=== PATIENT | male | born 1960 | race Caucasian/White ===

== ENCOUNTER 2024-10-09 07:57 | Outpatient (RCR) | payer OTHER, SELFPAY ==
[2024-10-09 15:57] LABS: Mean Corpuscular Hemoglobin 29.5 pg (25.9-34.0); Mean Corpuscular Volume 92.4 fL (80.0-94.0); Mean Platelet Volume 12.6 fL (9.5-13.5); Platelet Count 186 10^3/uL (150-450); Red Cell Distribution Width 21.8 % (11.0-15.0); White Blood Count 4.3 10^3/uL (4.0-11.0)
[2024-10-09 16:00] LABS: Hematocrit 19.4 % (42.0-54.0); Hemoglobin 6.2 g/dL (14.0-18.0)
--- NOTE | 2024-10-09 16:03 | PC.NURSE ---
Critical Hgb and Hct called from lab. DR. Hopper notified and instructed this RN to call pt. and direct him to go to ED. Attempt made to call patient, only voicemail. Message left to go to ED for further evaluation.
[2024-10-09 16:38] LABS: Band Neutrophils Absolute 0.5 10^3/uL (0.0-0.3); Basophils Abs Manual 0.04 10^3/uL (0.00-0.10); Blast Absolute Manual 0.12; Lymphocytes Absolute Manual 1.03 10^3/uL (1.20-3.80); Monocytes Absolute Manual 0.08 10^3/uL (0.30-0.80); Segmented Neut Absolute Manual 2.53 10^3/uL (1.4-6.5)
[2024-10-09 16:43] LABS: Ovalocytes 1+; Poikilocytosis 1+
[2024-10-09 17:10] LABS: Percent Iron Saturation 67.4 %
[2024-10-09 17:27] LABS: Alanine Aminotransferase 13 U/L (16-63); Albumin Globulin Ratio 0.9; Albumin Level 3.6 g/dL (3.4-5.0); Alkaline Phosphatase 88 U/L (46-116); Anion Gap 13.6; Aspartate Amino Transferase 18 U/L (15-37); BUN Creatinine Ratio 15.2; Bilirubin Total 0.7 mg/dL (0.2-1.0); Carbon Dioxide 26.2 mmol/L (21.0-32.0); Chloride 101 mmol/L (98-107); Estimated GFR (African America >60 (>=60 mL/min/1.73m^2); Estimated GFR (Non-African Ame >60 (>=60 mL/min/1.73m^2); Globulin 4.1 g/dL; Glucose 91 mg/dL (74-106); Lactate Dehydrogenase 882 U/L (85-227); Potassium 4.8 mmol/L (3.5-5.1); Sodium 136 mmol/L (136-145); Total Protein 7.7 g/dL (6.4-8.2)
[2024-10-11 15:08] LABS: Erythropoietin (EPO), Serum 1801.6 mIU/mL (2.6-18.5)
== END 2024-10-10 08:00 | disposition home or self-care (01) ==
LOC: HEMC 07:57
PROVIDERS: PCP Family Medicine; Visit Provider Internal Medicine Hematology & Oncology
DX: D64.9 Anemia, unspecified (principal); D75.81 Myelofibrosis
CPT/HCPCS: 36415; 80053; 82668; 82728; 83540; 83550; 83615; 85007; 85027; G0463

== ENCOUNTER 2024-10-09 17:29 | Observation (INO) | payer OTHER, SELFPAY ==
[2024-10-09] VITALS (14 sets, daily range): BP systolic 114–128; BP diastolic 60–67; PULSE 91–107; TEMP 36.2–37; O2SAT 92–97; BMI 23.3; BMI 21.9
--- NOTE | 2024-10-09 17:55 | ED.GENADUL1 ---
HPI HPI - General Adult General Chief complaint: Recheck/Abnormal Lab/Rx Stated complaint: Dr RICE sent him over for Blood Time Seen by Provider: 10/09/24 17:36 Source: patient and family Mode of arrival: walk-in Limitations: no limitations History of Present Illness HPI narrative: Patient is a 64-year-old male who presents to the emergency department for an abnormal hemoglobin that was drawn just prior to arrival. Patient was seeing oncology/hematology today for recent diagnosis of multiple myeloma. He was hospitalized last month and received 6 units of blood since the end of August. Patient has no focal medical complaints on arrival to the ER today, he denies dizziness, chest pain or shortness of breath. He has had no difficulty eating or drinking. He denies any dark tarry stools. He had a hemoglobin of 6.2 prior to arrival and was instructed to come to the emergency department to initiate a blood transfusion. Related Data Home Medications ?Medication ?Instructions ?Recorded ?Confirmed melatonin 10 mg capsule 10 mg PO DAILY 10/09/24 10/09/24 rosuvastatin 10 mg tablet 10 mg PO .once daily 10/09/24 10/09/24 Allergies Allergy/AdvReac Type Severity Reaction Status Date / Time No Known Drug Allergies Allergy Verified 10/09/24 17:41 Opioid HPI Opioid Management Most Recent Opioid Data: No Data to Display Review of Systems ROS Constitutional Denies: fever or chills Ears, nose, mouth, and throat Denies: throat pain or nasal congestion Cardiovascular Denies: chest pain Respiratory Denies: shortness of breath Gastrointestinal Denies: nausea or vomiting Integumentary/Breast Denies: rash Neurological Denies: headache, numbness in extremities, weakness in extremities or dizziness Hematologic/Lymphatic Denies: easy bruising or easy bleeding PFSH PFSH Social History Little interest or pleasure in doing things: not at all Feeling down, depressed, or hopeless: not at all Exam Narrative Exam Narrative: Gen.: Awake, alert, in no distress Head: Normocephalic, atraumatic ENT: Moist mucous membranes Respiratory: No respiratory distress, lungs clear bilaterally Cardio: Regular rate and rhythm Gastrointestinal: Abdomen is soft, nondistended and nontender to palpation Extremities: Moves extremities equally Psych: Normal mood and affect Neuro: No focal neuro deficit Skin: Warm, dry, intact Constitutional Vital Signs, click to edit/add: Last Vital Signs Temp 98.5 F 10/09/24 17:37 Pulse 107 H 10/09/24 17:37 Resp 16 10/09/24 17:37 BP 128/65 10/09/24 17:37 Pulse Ox 95 10/09/24 17:37 O2 Del Method Room Air 10/09/24 17:37 Course Vital Signs Vital signs: Vital Signs Temperature 98.5 F 10/09/24 17:37 Pulse Rate 107 H 10/09/24 17:37 Respiratory Rate 16 10/09/24 17:37 Blood Pressure 128/65 10/09/24 17:37 Pulse Oximetry 95 10/09/24 17:37 Oxygen Delivery Method Room Air 10/09/24 17:37 Temperature 98.5 F 10/09/24 17:37 Pulse Rate 107 H 10/09/24 17:37 Respiratory Rate 16 10/09/24 17:37 Blood Pressure 128/65 10/09/24 17:37 Pulse Oximetry 95 10/09/24 17:37 Oxygen Delivery Method Room Air 10/09/24 17:37 Medical Decision Making MDM Narrative Medical decision making narrative: This patient had a hemoglobin of 6.2 prior to arrival, type and screen was ordered with coags as well as 2 units of blood. He has a stable blood pressure. He will be admitted for observation and monitoring for blood transfusion. He is established with heme-onc for his new recent diagnosis of multiple myeloma. Stable at time of admission to the hospitalist. SUPERVISED APC VISIT, PHYSICIAN ATTESTATION: Based on the medical record the care appears appropriate. ? Medical Records Medical records reviewed: Yes I reviewed the patient's medical records Lab Data Lab results reviewed: Yes I reviewed the patient's lab results ECG Data Attestation: I personally reviewed and interpreted this ECG as follows: (Normal sinus rhythm at a rate of 93, incomplete right bundle branch block with no acute ST elevation or ectopy. EKG reviewed by attending physician) Discharge Plan Discharge Chief Complaint: Recheck/Abnormal Lab/Rx Clinical Impression: Anemia requiring transfusions, Multiple myeloma Patient Disposition: Admitted as Observation Time of Disposition Decision: 18:03 Prescriptions / Home Meds: No Action rosuvastatin 10 mg tablet 10 mg PO .once daily melatonin 10 mg capsule 10 mg PO DAILY Print Language: Bulgarian Referrals: LOUIS WARD [Primary Care Provider] - 1 week
--- NOTE | 2024-10-09 17:57 | ECG_ITS ---
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 Measurements Intervals [place] Rate: 93 P: 60 CO: 160 QRS: 34 QRSD: 102 T: 71 QT: 380 QTc: 431 Interpretive Statements 1100 Sinus rhythm 2440 Incomplete right bundle branch block 9130 borderline ECG No previous ECG available for comparison Electronically Signed On 10-10-2024 7:43:09 EDT by CHRISTOPH FERRO M.D.
--- NOTE | 2024-10-09 18:10 | PC.NURSE ---
blood consent signed by pt
[2024-10-09 18:12] LABS: INR 1.26; Prothrombin Time 13.1 sec (9.0-11.6)
[2024-10-09] MEDS: DIPHENHYDRAMINE HCL 25 MG CAPSULE PO (20:20)
[2024-10-09] MEDS: ACETAMINOPHEN 325 MG TABLET 650 MG PO (20:20)
[2024-10-09] MEDS: FUROSEMIDE 20 MG/2 ML VIAL IVP (21:46)
--- NOTE | 2024-10-09 23:11 | PC.NURSE ---
urine is now dilute
[2024-10-10] VITALS (9 sets, daily range): BP systolic 118–133; BP diastolic 53–69; PULSE 80–98; TEMP 36.5–36.9; O2SAT 93–98
[2024-10-10 05:46] LABS: Basophils Percent Auto 0.9 % (0.2-2.0); Hemoglobin 7.5 g/dL (14.0-18.0); Immature Granulocytes Abs Auto 0.21 10^3/uL (0.00-0.03); Immature Granulocytes Pct Auto 4.9 % (0.0-0.5); Lymphocytes Absolute Auto 0.6 10^3/uL (1.2-3.8); Lymphocytes Percent Auto 12.8 % (20.5-60.0); Mean Corpuscular HGB Conc 33.3 g/dL (29.9-35.2); Mean Corpuscular Hemoglobin 29.6 pg (25.9-34.0); Mean Corpuscular Volume 88.9 fL (80.0-94.0); Mean Platelet Volume 10.8 fL (9.5-13.5); Monocytes Absolute Auto 0.4 10^3/uL (0.3-0.8); Monocytes Percent Auto 9.8 % (1.7-12.0); Neutrophils Absolute Auto 3.1 10^3/uL (1.4-6.5); Neutrophils Percent Auto 71.6 % (43.0-75.0); Platelet Count 163 10^3/uL (150-450); Red Blood Count 2.53 10^6/uL (4.70-6.10); Red Cell Distribution Width 20.4 % (11.0-15.0); White Blood Count 4.3 10^3/uL (4.0-11.0)
[2024-10-10 06:07] LABS: Alanine Aminotransferase 10 U/L (16-63); Albumin Globulin Ratio 0.9; Albumin Level 3.3 g/dL (3.4-5.0); Alkaline Phosphatase 81 U/L (46-116); Anion Gap 10.9; Aspartate Amino Transferase 17 U/L (15-37); BUN Creatinine Ratio 16.7; Bilirubin Total 0.9 mg/dL (0.2-1.0); Calcium 8.7 mg/dL (8.5-10.1); Carbon Dioxide 28.6 mmol/L (21.0-32.0); Chloride 102 mmol/L (98-107); Estimated GFR (African America >60 (>=60 mL/min/1.73m^2); Estimated GFR (Non-African Ame >60 (>=60 mL/min/1.73m^2); Globulin 3.7 g/dL; Glucose 102 mg/dL (74-106); Magnesium 1.7 mg/dL (1.8-2.4); Potassium 4.5 mmol/L (3.5-5.1); Sodium 137 mmol/L (136-145)
[2024-10-10 06:23] LABS: Hematocrit 22.5 % (42.0-54.0)
--- NOTE | 2024-10-10 09:00 | CM.NOTE ---
Rounds made with Dr. Scott, pt will discharge today and f/u with Dr. Hopper and PCP.
--- NOTE | 2024-10-10 11:30 | PM.HP ---
HPI H&P: HPI History of Present Illness Chief complaint: ANEMIA REQUIRES TRANSFUSION Narrative: 64 y/o male sent to ER from oncology with anemia. Getting work up from oncology and recently diagnosed with myelofibrosis. Scheduled for outpatient visit and labs showed anemia with hgb 6.2. Recently with severe anemia and has had 6 transfusions since August 2024. Overall felt well and no symptoms. Not SOB and no fatigue. To ER and started 2 units PRBC. Admitted and did well overnight. Repeat hgb 7.5 this am. Continues to be without symptoms. No chest pain or SOB. Opioid HPI Opioid Management Most Recent Pain and Opioid Data: Last Pain Assessment 10/10/24 10:00 Last ORT Total Score 0 10/09/24 18:42 10/09/24 Last ORT Risk Category Low Risk 10/09/24 18:42 10/09/24 Review of Systems ROS Constitutional Denies: fever, chills or fatigue Cardiovascular Denies: chest pain, palpitations or edema Respiratory Denies: shortness of breath, cough or wheezing Gastrointestinal Denies: abdominal pain, nausea, vomiting or diarrhea Genitourinary Denies: painful urination [facility] Medical History (Updated 10/10/24 @ 10:31 by Rex Scott MD) Dyslipidemia ?E78.5 - Hyperlipidemia, unspecified (ICD-10) Anemia requiring transfusions ?D64.9 - Anemia, unspecified (ICD-10) Social History Highest level of school completed/degree received: high school graduate Little interest or pleasure in doing things: not at all Feeling down, depressed, or hopeless: not at all Meds Home Medications and Allergies Home Medications ?Medication ?Instructions ?Recorded ?Confirmed ?Type melatonin 10 mg capsule 10 mg PO DAILY 10/09/24 10/09/24 History rosuvastatin 10 mg tablet 10 mg PO .qhs 10/09/24 10/10/24 History Allergies Allergy/AdvReac Type Severity Reaction Status Date / Time No Known Drug Allergies Allergy Verified 10/09/24 17:41 Exam Constitutional Vital Signs, click to edit/add: Last Vital Signs Temp 97.7 F 10/10/24 08:00 Pulse 90 10/10/24 10:00 Resp 14 10/10/24 08:00 BP 133/53 10/10/24 08:00 Pulse Ox 98 10/10/24 09:08 O2 Del Method Room Air 10/10/24 09:08 Documenting provider has reviewed patient's vital signs: yes Common normals: no apparent distress, oriented x3 and alert HENMT Common normals: normocephalic Eye Common normals: PERRL and EOMs intact bilaterally Respiratory Common normals: normal respiratory effort and clear to auscultation bilaterally Cardio Common normals: regular rate, regular rhythm, no gallops, no murmurs and no rub GI Common normals: Normal to inspection, nondistended, normoactive bowel sounds present and non-tender Extremity Common normals: no pedal edema Results Labs Labs: Short CBC 10/10/24 Range/Units 05:33 WBC 4.3 (4.0-11.0) 10^3/uL Hgb 7.5 L (14.0-18.0) g/dL Hct 22.5 L* (42.0-54.0) % Plt Count 163 (150-450) 10^3/uL BMP 10/10/24 05:33 Sodium 137 Potassium 4.5 Chloride 102 Carbon Dioxide 28.6 BUN 14.0 Creatinine 0.84 Glucose 102 Calcium 8.7 Liver Function 10/10/24 Range/Units 05:33 Total Bilirubin 0.9 (0.2-1.0) mg/dL AST 17 (15-37) U/L ALT 10 L (16-63) U/L Alkaline Phosphatase 81 (46-116) U/L Albumin 3.3 L (3.4-5.0) g/dL Assessment and Plan Assessment and Plan (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 Discussed with oncology and stable for discharge. Patient will start outpatient treatment and have hgb monitored. Resume home medication as directed. Follow with oncology in 1 week.
--- NOTE | 2024-10-12 13:35 | CM.DCFOLLOWU ---
10/12/24 1st attempt, no answer
--- NOTE | 2024-10-15 13:03 | CM.DCFOLLOWU ---
Person spoke with: Nic How are you feeling? Much better How is your pain? No pain Did you understand your discharge instructions? Yes Do you have any questions about your discharge instructions? No Were you given any prescriptions at discharge? No Were you able to get your prescriptions filled? N/A Do you understand how to take your medications as ordered? Yes- I see Dr. Hopper tomorrow for f/u appt and to have blood draw. Do you have any questions about your follow up appointment and do you plan to keep your follow up appointment? I see Dr. Hopper tomorrow Is there anything else that you would like to discuss? No Questions/Comments/Concerns/Other:
== END 2024-10-10 11:15 | disposition home or self-care (01) ==
LOC: ER 18:10 → MS 18:40
PROVIDERS: Physician Assistant; Registered Nurse; Admitting Provider Family Medicine; Emergency Provider Emergency Medicine; PCP Family Medicine; Visit Provider Family Medicine
DX: C90.00 Multiple myeloma not having achieved remission (principal); D63.0 Anemia in neoplastic disease; D75.81 Myelofibrosis
CPT/HCPCS: 36415; 36430; 80053; 82668; 82728; 83540; 83550; 83615; 83735; 85007; 85025; 85027; 85610; 86850; 86900; 86901; 86923; 93005; 94761; 96374; 99285; G0378; G0463; J1940; P9016

== ENCOUNTER 2024-11-06 08:02 | Outpatient (OUT) | payer OTHER, SELFPAY ==
--- OUTSIDE RECORDS SUMMARY | 2024-11-02 08:10 | XMS_ITS | CCD ---
Author Organization [facility] CliniSyar Care Team Providers Care Cost Control Analyst Name Role Phone GORDILLO, CHRISTOPHER Unavailable Unavailable GORDILLO, CHRISTOPHER Unavailable Unavailable HAY, MELBA Unavailable Unavailable FURLONG, DEWEY Unavailable Unavailable MO Unavailable Unavailable GORDILLO, CHRISTOPHER Unavailable Unavailable GORDILLO, CHRISTOPHER Unavailable Unavailable FURLONG, DEWEY Unavailable Unavailable FURLONG, DEWEY Unavailable Unavailable GORDILLO, CHRISTOPHER Unavailable Unavailable FURLONG, DEWEY Unavailable Unavailable GORDILLO, CHRISTOPHER Unavailable Unavailable GORDILLO, CHRISTOPHER Unavailable Unavailable GORDILLO, CHRISTOPHER Unavailable Unavailable FURLONG, DEWEY Unavailable Unavailable FURLONG, DEWEY Unavailable Unavailable GORDILLO, CHRISTOPHER Unavailable Unavailable GORDILLO, CHRISTOPHER Unavailable Unavailable FURLONG, DEWEY Unavailable Unavailable GORDILLO, CHRISTOPHER Unavailable Unavailable GORDILLO, CHRISTOPHER Unavailable Unavailable FURLONG, DEWEY Unavailable Unavailable FURLONG, DEWEY Unavailable Unavailable FURLONG, DEWEY Unavailable Unavailable GORDILLO, CHRISTOPHER Unavailable Unavailable GORDILLO, CHRISTOPHER Unavailable Unavailable HAY, MELBA Unavailable Unavailable HAY, MELBA Unavailable Unavailable FURLONG, DEWEY G Unavailable Unavailable HAY, MELBA Unavailable Unavailable Furlong DODewey G Primary Care Provider Furlong DODewey G Primary Care Provider [phone] FURLONG, DEWEY G Referring Unavailable FURLONG, DEWEY G Primary Care Unavailable FURLONG, DEWEY G Referring Unavailable FURLONG, DEWEY G Primary Care Unavailable TAMELA WILLIAMSON Admitting Unavailable GEREMIAS SOTO Referring Unavailable FURLONG, DEWEY G Primary Care Unavailable KEYUR STUART Consulting Unavailable VINEET ERNST Attending Unavailable GUILLERMO PORTER Consulting Unavailable ONLY), [facility] (INPATIENT Consult ing Unavailable FURLONG, DEWEY G Referring Unavailable FURLONG, DEWEY G Primary Care Unavailable FURLONG, DEWEY G Attending Unavailable FURLONG, DEWEY G Referring Unavailable FURLONG, DEWEY G Primary Care Unavailable FURLONG, DEWEY G Attending Unavailable FURLONG, DEWEY G Referring Unavailable FURLONG, DEWEY G Primary Care Unavailable FURLONG, DEWEY G Attending Unavailable FURLONG, DEWEY G Referring Unavailable FURLONG, DEWEY G Primary Care Unavailable Furlong DO, Dewey Primary Care Provider Furlong DODewey Attending Provider GEREMIAS SOTO Attending Unavailable FURLONG, DEWEY G Primary Care Unavailable KEYUR STUART Attending Unavailable FURLONG, DEWEY G Referring Unavailable FURLONG, DEWEY G Primary Care Unavailable Martita Hopper MD Attending Provider Martita Hopper Admitting Unavailable Martita Hopper Attending Unavailable Furlong, Dewey Admitting Unavailable Furlong, Dewey Attending Unavailable Furlong, Dewey Primary Care Unavailable Furlong DODewey Primary Care Provider [phone] Medications Current Medications Medication Drug Class(es) Dates Sig (Normalized) Sig (Original) cephalexin 500 mg oral capsule (1 source) Cephalosporin Antibacterial Start: 09-12-2024 End: 09-17-2024 CEPHalexin (KEFLEX) 500 mg capsule Take 1 capsule (500 mg total) by mouth in the morning and 1 capsule (500 mg total) at noon and 1 capsule (500 mg total) in the evening and 1 capsule (500 mg total) before bedtime. Do all this for 5 days. 20 capsule 09/12/2024 09/17/2024 Active cholecalciferol 0.01 mg oral capsule (12 sources) Vitamin D cholecalciferol, vitamin D3, (VITAMIN D3) 10 mcg (400 unit) capsule Active melatonin 10 mg oral tablet (5 sources) Start: 09-14-2024 take 1 tablet by mouth once daily melatonin 10 mg tablet Take 1 tablet by mouth nightly. 09/14/2024 Active OJJAARA 100 mg tablet (1 source) Start: 10-16-2024 OJJAARA 100 mg tablet 10/16/2024 Active rosuvastatin calcium 10 mg oral tablet (11 sources) HMG-CoA Reductase Inhibitor Start: 06-29-2024 take 1 tablet by mouth once daily rosuvastatin (CRESTOR) 10 mg tablet Take 1 tablet (10 mg total) by mouth nightly. 30 tablet 11 06/29/2024 Active Completed/Discontinued Medications Medication Drug Class(es) Dates Sig (Normalized) Sig (Original) nystatin 100 unt/mg topical powder (5 sources) Polyene Antifungal Start: 09-14-2024 End: 11-01-2024 nystatin (MYCOSTATIN) powder Apply 1 Application topically in the morning and 1 Application before bedtime. 30 g 1 09/14/2024 11/01/2024 Discontinued (Therapy completed) Problems Active Problems Problem Classification Problem Date Documented Date Episodic/Chronic Chronic obstructive pulmonary disease and bronchiectasis (1 source) Chronic obstructive pulmonary disease, unspecified; 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 obstructive pulmonary disease, unspecified] Onset: 5 Chronic Deficiency and other anemia (13 sources) Anemia; Translations: [Anemia, unspecified] Onset: 5 09-08-2024 Episodic Deficiency and other anemia (3 sources) Anemia, unspecified; Translations: [Anemia, unspecified] Onset: 5 Episodic Diabetes mellitus without complication (3 sources) Hyperglycemia; Translations: [Hyperglycemia, unspecified] Onset: 5 09-21-2024 Episodic External Injury - Fall (1 source) Fall on same level due to ice and snow, initial encounter; Translations: [FALL ON SAME LEVEL DUE TO ICE AND SNOW, INITIAL ENCOUNTER] Onset: 7 External Injury - Place of occurrence (1 source) Unspecified place in unspecified non-institutional (private) residence as the place of occurrence of the external cause; Translations: [UNSP PLACE IN UNSP NON-INSTITUT (PRIVATE) RESIDENCE PLACE] Onset: 7 Fracture of lower limb (17 sources) Displaced spiral fracture of shaft of right tibia, initial encounter for open fracture type I or II; Translations: [Unspecified fracture of shaft of right fibula, subsequent encounter for closed fracture with routine healing] Onset: 7 Episodic Lymphadenitis (11 sources) Inguinal lymphadenopathy; Translations: [Localized enlarged lymph nodes] Onset: 5 09-08-2024 Episodic Neoplasms of unspecified nature or uncertain behavior (6 sources) Myelosclerosis with myeloid metaplasia; 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 myeloproliferative disease] Onset: 5 10-04-2024 Episodic Non-Hodgkin`s lymphoma (2 sources) Non-Hodgkin lymphoma, unspecified, lymph nodes of inguinal region and lower limb; Translations: [Non-Hodgkin lymphoma, unspecified, intra-abdominal lymph nodes] Onset: 5 Chronic Open wounds of extremities (1 source) Unspecified open wound, right lower leg, initial encounter; Translations: [Unspecified open wound, right lower leg, initial encounter] Onset: 5 Episodic Other gastrointestinal disorders (1 source) Splenomegaly, not elsewhere classified; Translations: [Splenomegaly, not elsewhere classified] Onset: 5 Episodic Other gastrointestinal disorders (4 sources) Splenomegaly; Translations: [Splenomegaly, not elsewhere classified] Onset: 5 10-04-2024 Episodic Other inflammatory condition of skin (1 source) Psoriasis vulgaris; Translations: [PSORIASIS VULGARIS] Onset: 7 Chronic Other screening for suspected conditions (not mental disorders or infectious disease) (6 sources) Patient encounter status; Translations: [Encounter for screening for cardiovascular disorders] Onset: 4 06-25-2024 Episodic Pleurisy; pneumothorax; pulmonary collapse (2 sources) Pleural effusion; Translations: [Pleural effusion, not elsewhere classified] Onset: 5 11-01-2024 Episodic Residual codes; unclassified (1 source) Colon cancer screening declined; Translations: [Procedure and treatment not carried out because of patient's decision for unspecified reasons] 06-25-2024 Episodic Residual codes; unclassified (1 source) Prostate cancer screening declined; Translations: [Procedure and treatment not carried out because of patient's decision for unspecified reasons] 06-25-2024 Episodic Residual codes; unclassified (11 sources) Amnesia; Translations: [Other amnesia] Onset: 5 09-06-2024 Episodic Residual codes; unclassified (1 source) Flushing; Translations: [Flushing] 09-06-2024 Episodic Residual codes; unclassified (2 sources) Other amnesia; Translations: [Other amnesia] Onset: 5 Episodic Residual codes; unclassified (2 sources) Flushing; Translations: [Flushing] Onset: 5 Episodic Screening and history of mental health and substance abuse codes (3 sources) Ex-cigarette smoker; Translations: [Personal history of nicotine dependence] Onset: 4 09-21-2024 Episodic Unclassified (2 sources) Unknown / UNK(Unknown) Onset: 7 Unclassified (1 source) Referral Onset: 5 Unclassified (1 source) Low Blood Count Onset: 5 Unclassified (1 source) Abnormal Lab Value Onset: 5 Past or Other Problems Problem Classification Problem Date Documented Da te Episodic/Chronic Chronic ulcer of skin (6 sources) Ulcer of lower extremity; Translations: [Non-pressure chronic ulcer of unspecified part of right lower leg with fat layer exposed] Onset: 09-10-2024 Resolved: 11-01-2024 09-10-2024 Chronic Complication of device; implant or graft (4 sources) Fracture of tibia or fibula following insertion of orthopedic implant, joint prosthesis, or bone plate, right leg; Translations: [FX TIB/FIB FOL INSRT ORTHO IMPLNT/PROSTH/BONE PLT, RIGHT LEG] Onset: 08-03-2017 Episodic Mood disorders (12 sources) Mood disorders Onset: 06-25-2024 Resolved: 11-01-2024 06-25-2024 Other connective tissue disease (1 source) Arthrodesis status; Translations: [ARTHRODESIS STATUS] Onset: 08-03-2017 Episodic Skin and subcutaneous tissue infections (7 sources) Cellulitis of right lower limb; Translations: [Cellulitis of right lower limb] Onset: 09-08-2024 Resolved: 11-01-2024 09-08-2024 Episodic Substance-related disorders (15 sources) Nicotine dependence, cigarettes, uncomplicated; Translations: [Cigarette smoker ] Onset: 07-14-2017 Resolved: 09-21-2024 06-25-2024 Chronic Unclassified (1 source) Patient encounter status 09-21-2024 Results Test Name Value Interpretation Reference Range [facility] 10-09-2024 L ----- Specimen: [id number] Received: 10/11/24 Status: QUOC Swain Num: [id number] Spec Type: Impression Subm Dr: Martita Hopper MD Tissues: PATHPER Procedures: PATHREVIEW Age/ Patient Sex Location Account Attending Physician Penny Ordaz/Mili LABELL [id number] Martita Hopper MD SPEC NUM: [id number] RECD: 10/11/24 STATUS: QUOC SWAIN NUM: [id number] BEV: 10/09/[address]: Martita Hopper MD ENTERED: 10/11/[address]: William Ly SPEC TYPE: Impression DEPT: ALLI Correa ENTERED BY: [id number] RECV BY: [id number] ORDERED: PATHREVIEW ORDERED: PATHREVIEW Pathologist Review Abnormal CBC for peripheral blood smear review: -Borderline leukopenia with mild lymphocytopenia, and borderline monocytopenia -Mild bandemia -Severe anemia of normocytic type, including moderate anisocytosis and poikilocytosis with mild ovalocytosis, occasional teardrop cell, occasional macrocytes, mild hypochromia, occasional microcytes, at least rare polychromatophils -Occasional precursor granulocytes, including occasional bands, and at least 1 suspected immature blast -Occasional large platelets and at least 1 giant platelet Comment: -The cause of severe anemia of normocytic type in the adult male patient is not clear, but may be multifactorial in etiology, including anemia of iron deficiency type because of the noticed ovalocytosis in the smear. However, iron deficiency anemia is usually associated with microcytosis not seen in this case. Possibility of the other superimposed disease condition such as chronic liver disease or alcoholism also need clinical correlation. Possibility of the underlying superimposed hematologic blood disease also cannot be excluded because of the left shifted granulocytes with rare suspected blast. Continuous clinical correlation and other laboratory assessments and correlations, including testing of the serum iron profile, are also suggested CPT Specimen: [id number] Received: 10/11/24 Status: QUOC Swain Num: [id number] Spec Type: Impression Subm Dr: Martita Hopper MD Tissues: PATHPER Procedures: PATHREVIEW Patient: Penny Ordaz [id number] (Continued) Specimen: [id number] Received: 10/11/24 (Continued) Pathologist Review (Continued) Signed (signature on file) Delfina Calderón MD 10/14/242029 Specimen: [id number] Received: 10/11/24 Status: QUOC Damondebora Num: [id number] Spec Type: Impression Subm Dr: Martita Hopper MD Tissues: PATHPER Procedures: PATHREVIEW Patient: Penny Ordaz [id number] (Continued) Specimen: [id number] Received: 10/11/24 (Continued) Pathologist Review (Continued) [id number] Specimen: [id number] Received: 10/11/24 Status: QUOC Swain Num: [id number] Spec Type: Impression Subm Dr: Martita Hopper MD Tissues: PATHPER Procedures: PATHREVIEW Patient: Penny Ordaz [id number] (Continued) Signed (signature on file) Delfina Calderón MD 10/14/242029 [facility] BASIC METABOLIC PANLon 09-21 Anion gap [Moles/Vol] 6 mmol/L Normal 5-15 [facility] Comment on above: Performed By: #### C BCA, PINR, BMP, 09123-7, 2284-8, 13738-9, LIVR #### [facility] ([id number]) [address], [address] [place] [address] Calcium [Mass/Vol] 9.0 mg/dL Normal 8.5-10.5 [facility] Comment on above: Performed By: #### C BCA, PINR, BMP, 51694-5, 2284-8, 08596-6, LIVR #### [facility] ([id number]) [address], [address] [place] [address] Chloride [Moles/Vol] 102 mmol/L Normal 98-[address] [facility] Comment on above: Performed By: #### C BCA, PINR, BMP, 30232-7, 2284-8, 52182-3, LIVR #### [facility] ([id number]) [address], [address] [place] [address] CO2 [Moles/Vol] 29 mmol/L Normal 22-32 [facility] Comment on above: Performed By: #### C BCA, PINR, BMP, 31355-4, 2284-8, 22301-8, LIVR #### [facility] ([id number]) [address], [address] [place] [address] Creatinine [Mass/Vol] 0.67 mg/dL Normal 0.60-1.30 [facility] Comment on above: Result Comment: METH OD TRACEABLE TO IDMS STANDARD Performed By: #### C BCA, PINR, BMP, 31288-1, 2284-8, 38649-3, LIVR #### [facility] ([id number]) [address], [address] [place] [address] eGFR (CKD-EPI) NON-RACE DEPENDENT >90 Normal >59 [facility] Comment on above: Result Comment: Reported eGFR is based on the CKD-EPI 2020 equation that does not use a race coefficient. Performed By: #### C BCA, PINR, BMP, 12160-7, 2284-8, 96831-5, LIVR #### [facility] ([id number]) [address], [address] [place] [address] Glucose [Mass/Vol] 103 mg/dL High 65-99 [facility] Comment on above: Performed By: #### C BCA, PINR, BMP, 78286-7, 2284-8, 08285-0, LIVR #### [facility] ([id number]) [address], [address] [place] [address] Potassium [Moles/Vol] 4.4 mmol/L Normal 3.5-5.0 [facility] Comment on above: Performed By: #### C BCA, PINR, BMP, 81724-6, 2284-8, 70783-5, LIVR #### [facility] ([id number]) [address], [address] [place] [address] Sodium [Moles/Vol] 137 mmol/L Normal 134-146 [facility] Comment on above: Performed By: #### C BCA, PINR, BMP, 41062-4, 2284-8, 85684-4, LIVR #### [facility] ([id number]) [address], [address] [place] [address] Urea nitrogen [Mass/Vol] 11 mg/dL Normal 5-27 [facility] Comment on above: Performed By: #### C BCA, PINR, BMP, 30270-8, 2284-8, 41142-1, LIVR #### [facility] ([id number]) [address], [address] [place] [address] COMPLETE BLOOD COUNTon 09-21 Erythrocyte distribution width (RBC) [Ratio] 21.1 % High 11.5-15.0 [facility] Comment on above: Performed By: #### C BCA, PINR, BMP, 51458-6, 2284-8, 23578-2, LIVR #### [facility] ([id number]) [address], [address] [place] [address] Hematocrit (Bld) [Volume fraction] 23.4 % Low 39-49 [facility] Comment on above: Performed By: #### C BCA, PINR, BMP, 12360-8, 2284-8, 19305-2, LIVR #### [facility] ([id number]) [address], [address] [place] [address] Hemoglobin (Bld) [Mass/Vol] 7.7 g/dL Low 13.0-17.0 [facility] Comment on above: Performed By: #### C BCA, PINR, BMP, 04921-0, 2284-8, 14783-6, LIVR #### [facility] ([id number]) [address], [address] [place] [address] MCH (RBC) [Entitic mass] 30.3 pg Normal 27-34 [facility] Comment on above: Performed By: #### C BCA, PINR, BMP, 28297-9, 2284-8, 27168-8, LIVR #### [facility] ([id number]) [address], [address] [place] [address] MCHC (RBC) [Mass/Vol] 32.8 g/dL Normal 32-36 [facility] Comment on above: Performed By: #### C BCA, PINR, BMP, 60940-9, 2284-8, 08901-8, LIVR #### [facility] ([id number]) [address], [address] [place] [address] MCV (RBC) [Entitic vol] 93 fL Normal 80-100 [facility] Comment on above: Performed By: #### C BCA, PINR, BMP, 91161-4, 2284-8, 11323-1, LIVR #### [facility] ([id number]) [address] [address] Platelet mean volume (Bld) [Entitic vol] 8.3 fL Normal 7-12 [facility] Comment on above: Performed By: #### C BCA, PINR, BMP, 08412-5, 2284-8, 71174-4, LIVR #### [facility] ([id number]) [address] [address] Platelets (Bld) [#/Vol] 423 10*3/uL Normal 150-450 [facility] Comment on above: Performed By: #### C BCA, PINR, BMP, 44816-3, 2284-8, 11282-5, LIVR #### [facility] ([id number]) [address] [address] RBC COUNT 2.53 X10E12/L Low 4.10-5.70 [facility] Comment on above: Performed By: #### C BCA, PINR, BMP, 19907-5, 2284-8, 94688-5, LIVR #### [facility] ([id number]) [address] [address] WBC (Bld) [#/Vol] 5.3 10*3/uL Normal 4.0-11.0 [facility] Comment on above: Performed By: #### C BCA, PINR, BMP, 31302-3, 2284-8, 35782-2, LIVR #### [facility] ([id number]) [address] [address] HGB A1C (GLYCO-HGB)on 2024 Glucose [Mass/Vol] 105 mg/dL Normal [facility] Comment on above: Performed By: #### C BCA, PINR, BMP, 49590-9, 2284-8, 66248-8, LIVR #### [facility] ([id number]) [address], [address] [place] [address] HbA1c (Bld) [Mass fraction] 5.3 % Normal 4.4-5.6 [facility] Comment on above: Result Comment: NOTE ADA Guidelines Result HgbA1c Normal : less than 5.7 % Prediabetes : 5.7 % to 6.4 % Diabetes : > 6.4 % Use with caution in patients with abnormal hemoglobin variants as the half-life of red blood cells and in vivo glycation rates are affected. Performed By: #### C BCA, PINR, BMP, 71501-7, 2284-8, 67930-2, LIVR #### [facility] ([id number]) [address], [address] [place] [address] BASIC METABOLIC PANLon 09-12 Anion gap [Moles/Vol] 5 mmol/L Normal 5-15 [facility] Comment on above: Performed By: #### C BCA, PINR, BMP, 19191-7, 2284-8, 85132-0, LIVR #### [facility] ([id number]) [address], [address] [place] [address] Calcium [Mass/Vol] 8.7 mg/dL Normal 8.5-10.5 [facility] Comment on above: Performed By: #### C BCA, PINR, BMP, 00959-9, 2284-8, 19506-2, LIVR #### [facility] ([id number]) [address], [address] [place] [address] Chloride [Moles/Vol] 101 mmol/L Normal 98-[address] [facility] Comment on above: Performed By: #### C BCA, PINR, BMP, 99131-0, 2284-8, 46971-9, LIVR #### [facility] ([id number]) [address], [facility] [address] [place] [address] CO2 [Moles/Vol] 28 mmol/L Normal 22-32 [facility] Comment on above: Performed By: #### C BCA, PINR, BMP, 34803-6, 2284-8, 31297-4, LIVR #### [facility] ([id number]) [address], [address] [place] [address] Creatinine [Mass/Vol] 0.54 mg/dL Low 0.60-1.30 [facility] Comment on above: Result Comment: METH OD TRACEABLE TO IDMS STANDARD Performed By: #### C BCA, PINR, BMP, 75265-4, 2284-8, 06057-4, LIVR #### [facility] ([id number]) [address] [address] eGFR (CKD-EPI) NON-RACE DEPENDENT >90 Normal >59 [facility] Comment on above: Result Comment: Reported eGFR is based on the CKD-EPI 2020 equation that does not use a race coefficient. Performed By: #### C BCA, PINR, BMP, 09281-8, 2284-8, 46576-8, LIVR #### [facility] ([id number]) [address] [address] Glucose [Mass/Vol] 90 mg/dL Normal 65-99 [facility] Comment on above: Performed By: #### C BCA, PINR, BMP, 69696-7, 2284-8, 37449-4, LIVR #### [facility] ([id number]) [address] [address] Potassium [Moles/Vol] 4.5 mmol/L Normal 3.5-5.0 [facility] Comment on above: Performed By: #### C BCA, PINR, BMP, 97410-4, 2284-8, 75367-8, LIVR #### [facility] ([id number]) [address], [address] [place] [address] Sodium [Moles/Vol] 134 mmol/L Normal 134-146 [facility] Comment on above: Performed By: #### C BCA, PINR, BMP, 28261-1, 2284-8, 70550-2, LIVR #### [facility] ([id number]) [address], [address] [place] [address] Urea nitrogen [Mass/Vol] 10 mg/dL Normal 5-27 [facility] Comment on above: Performed By: #### C BCA, PINR, BMP, 09231-8, 2284-8, 32400-7, LIVR #### [facility] ([id number]) [address], [address] [place] [address] CBC AND AUTO DIFFon 09-12-19 25 Band form neutrophils/100 WBC (Bld) 26.0 % Normal [facility] Comment on above: Performed By: #### C BCA, PINR, BMP, 63230-9, 2284-8, 12115-6, LIVR #### [facility] ([id number]) [address], [facility] [address] [place] [address] Erythrocyte distribution width (RBC) [Ratio] 21.4 % High 11.5-15.0 [facility] Comment on above: Performed By: #### C BCA, PINR, BMP, 05176-3, 2284-8, 02527-4, LIVR #### [facility] ([id number]) [address], [address] [place] [address] FRAGMENT 1+ Abnormal NONE [facility] Comment on above: Performed By: #### C BCA, PINR, BMP, 98833-9, 2284-8, 88486-6, LIVR #### [facility] ([id number]) [address], [address] [place] [address] Hematocrit (Bld) [Volume fraction] 24.1 % Low 39-49 [facility] Comment on above: Performed By: #### C BCA, PINR, BMP, 27722-3, 2284-8, 91982-1, LIVR #### [facility] ([id number]) [address] [address] [place] [address] Hemoglobin (Bld) [Mass/Vol] 7.9 g/dL Low 13.0-17.0 [facility] Comment on above: Performed By: #### C BCA, PINR, BMP, 14090-3, 2284-8, 76523-0, LIVR #### [facility] ([id number]) [address] [address] Lymphocytes (Bld) [#/Vol] 0.3 10*3/uL Low 1.0-3.5 [facility] Comment on above: Performed By: #### C BCA, PINR, BMP, 14003-9, 2284-8, 98818-4, LIVR #### [facility] ([id number]) [address] [address] Lymphocytes/100 WBC (Bld) 5.0 % Normal [facility] Comment on above: Performed By: #### C BCA, PINR, BMP, 03737-0, 2284-8, 59613-5, LIVR #### [facility] ([id number]) [address] [address] [place] [address] MCH (RBC) [Entitic mass] 30.4 pg Normal 27-34 [facility] Comment on above: Performed By: #### C BCA, PINR, BMP, 45849-4, 2284-8, 83060-2, LIVR #### [facility] ([id number]) [address] [address] [place] [address] MCHC (RBC) [Mass/Vol] 32.7 g/dL Normal 32-36 [facility] Comment on above: Performed By: #### C BCA, PINR, BMP, 12369-4, 2284-8, 93642-4, LIVR #### [facility] ([id number]) [address], [address] [place] [address] MCV (RBC) [Entitic vol] 93 fL Normal 80-100 [facility] Comment on above: Performed By: #### C BCA, PINR, BMP, 97721-2, 2284-8, 93214-4, LIVR #### [facility] ([id number]) [address], [address] [place] [address] Monocytes (Bld) [#/Vol] 0.2 10*3/uL Normal 0-0.9 [facility] [facility] Comment [facility]: Performed By: #### C BCA, PINR, BMP, 72491-7, 4-8, 94254-0, LIVR #### [facility] ([id number]) [address], [address] [place] [address] Monocytes/100 WBC (Bld) 3.0 % Normal [facility] Comment on above: Performed By: #### C BCA, PINR, BMP, 20337-2, 2284-8, 11644-3, LIVR #### [facility] ([id number]) [address], [address] [place] [address] Neutrophils (Bld) [#/Vol] 6.3 10*3/uL Normal 1.5-6.6 [facility] Comment on above: Performed By: #### C BCA, PINR, BMP, 90609-4, 2284-8, 48545-5, LIVR #### [facility] ([id number]) [address], [address] [place] [address] OVALOCYTE 1+ Abnormal NONE [facility] Comment on above: Performed By: #### C BCA, PINR, BMP, 06731-6, 2284-8, 45361-5, LIVR #### [facility] ([id number]) [address], [address] [place] [address] Platelet mean volume (Bld) [Entitic vol] 8.3 fL Normal 7-12 [facility] Comment on above: Performed By: #### C BCA, PINR, BMP, 32315-2, 2284-8, 82564-8, LIVR #### [facility] ([id number]) [address], [address] [place] [address] Platelets (Bld) [#/Vol] 235 10*3/uL Normal 150-450 [facility] Comment on above: Performed By: #### C BCA, PINR, BMP, 48274-2, 2284-8, 88377-8, LIVR #### [facility] ([id number]) [address], [address] [place] [address] POLYCHROMASIA 1+ Abnormal NONE [facility] Comment on above: Performed By: #### C BCA, PINR, BMP, 84991-0, 2284-8, 58403-4, LIVR #### [facility] ([id number]) [address], [address] [place] [address] RBC COUNT 2.59 X10E12/L Low 4.10-5.70 [facility] Comment on above: Performed By: #### C BCA, PINR, BMP, 21392-2, 2284-8, 94046-8, LIVR #### [facility] ([id number]) [address], [address] [place] [address] SEG NEUTROPHIL 66.0 % Normal [facility] Comment on above: Performed By: #### C BCA, PINR, BMP, 54019-3, 2284-8, 21219-5, LIVR #### [facility] ([id number]) [address], [address] [place] [address] WBC (Bld) [#/Vol] 6.8 10*3/uL Normal 4.0-11.0 [facility] Comment on above: Performed By: #### C BCA, PINR, BMP, 83489-7, 2284-8, 37061-1, LIVR #### [facility] ([id number]) [address], [address] [place] [address] Glucose Glucometer (BldC) [M ass/Vol]on 09-12-2024 Glucose [Mass/Vol] 126 mg/dL High 65-99 [facility] Glucose [Mass/Vol] 100 mg/dL High 65-99 [facility] BASIC METABOLIC PANLon 09-11 Anion gap [Moles/Vol] 5 mmol/L Normal 5-15 [facility] Comment on above: Performed By: #### C BCA, PINR, BMP, 71767-2, 2284-8, 86020-0, LIVR #### [facility] ([id number]) [address], [address] [place] [address] Calcium [Mass/Vol] 8.2 mg/dL Low 8.5-10.5 [facility] Comment on above: Performed By: #### C BCA, PINR, BMP, 09150-4, 2284-8, 84220-8, LIVR #### [facility] ([id number]) [address], [address] [place] [address] Chloride [Moles/Vol] 102 mmol/L Normal 98-[address] [facility] Comment on above: Performed By: #### C BCA, PINR, BMP, 59632-1, 2284-8, 42438-9, LIVR #### [facility] ([id number]) [address], [address] [place] [address] CO2 [Moles/Vol] 28 mmol/L Normal 22-32 [facility] Comment on above: Performed By: #### C BCA, PINR, BMP, 69756-2, 2284-8, 97595-2, LIVR #### [facility] ([id number]) [address], [address] [place] [address] Creatinine [Mass/Vol] 0.57 mg/dL Low 0.60-1.30 [facility] Comment on above: Result Comment: METH OD TRACEABLE TO IDMS STANDARD Performed By: #### C BCA, PINR, BMP, 13197-4, 2284-8, 64999-2, LIVR #### [facility] ([id number]) [address], [address] [address] eGFR (CKD-EPI) NON-RACE DEPENDENT >90 Normal >59 [facility] Comment on above: Result Comment: Reported eGFR is based on the CKD-EPI 2020 equation that does not use a race coefficient. Performed By: #### C BCA, PINR, BMP, 40353-9, 2284-8, 20358-5, LIVR #### [facility] ([id number]) [address], [address] [place] [address] Glucose [Mass/Vol] 99 mg/dL Normal 65-99 [facility] Comment on above: Performed By: #### C BCA, PINR, BMP, 85291-9, 2284-8, 02467-0, LIVR #### [facility] ([id number]) [address], [address] [place] [address] Potassium [Moles/Vol] 4.4 mmol/L Normal 3.5-5.0 [facility] Comment on above: Performed By: #### C BCA, PINR, BMP, 33534-6, 2284-8, 31645-2, LIVR #### [facility] ([id number]) [address], [address] [place] [address] Sodium [Moles/Vol] 135 mmol/L Normal 134-146 [facility] Comment on above: Performed By: #### C BCA, PINR, BMP, 09745-1, 2284-8, 59806-2, LIVR #### [facility] ([id number]) [address], [address] [place] [address] Urea nitrogen [Mass/Vol] 11 mg/dL Normal 5-27 [facility] Comment on above: Performed By: #### C BCA, PINR, BMP, 04551-3, 2284-8, 82847-2, LIVR #### [facility] ([id number]) [address], [address] [address] CBC AND AUTO DIFFon 09-11-19 25 Band form neutrophils/100 WBC (Bld) 21.0 % Normal [facility] Comment on above: Performed By: #### C BCA, PINR, BMP, 32755-2, 2284-8, 05101-0, LIVR #### [facility] ([id number]) [address], [facility] [address] [place] [address] Erythrocyte distribution width (RBC) [Ratio] 19.8 % High 11.5-15.0 [facility] Comment on above: Performed By: #### C BCA, PINR, BMP, 76556-0, 2284-8, 18067-4, LIVR #### [facility] ([id number]) [address], [address] [place] [address] FRAGMENT 1+ Abnormal NONE [facility] Comment on above: Performed By: #### C BCA, PINR, BMP, 45049-5, 2284-8, 32426-6, LIVR #### [facility] ([id number]) [address], [address] [address] Hematocrit (Bld) [Volume fraction] 21.3 % Low 39-49 [facility] Comment on above: Performed By: #### C BCA, PINR, BMP, 35737-9, 2284-8, 19615-0, LIVR #### [facility] ([id number]) [address], [address] [place] [address] Hemoglobin (Bld) [Mass/Vol] 6.9 g/dL Critically low 13.0-17.0 [facility] Comment on above: Performed By: #### C BCA, PINR, BMP, 96196-2, 2284-8, 21736-9, LIVR #### [facility] ([id number]) [address], [address] [place] [address] IMMATURE MONONUCLEAR 1.0 % Normal [facility] Comment on above: Performed By: #### C BCA, PINR, BMP, 08032-6, 4-8, 82771-7, LIVR #### [facility] ([id number]) [address], [address] [place] [address] Lymphocytes (Bld) [#/Vol] 0.6 10*3/uL Low 1.0-3.5 [facility] Comment on above: Performed By: #### C BCA, PINR, BMP, 68512-0, 2283-8, 14479-2, LIVR #### [facility] ([id number]) [address], [address] [place] [address] Lymphocytes/100 WBC (Bld) 9.0 % Normal [facility] Comment on above: Performed By: #### C BCA, PINR, BMP, 71426-8, 2284-8, 01507-8, LIVR #### [facility] ([id number]) [address], [address] [place] [address] MCH (RBC) [Entitic mass] 30.5 pg Normal 27-34 [facility] Comment on above: Performed By: #### C BCA, PINR, BMP, 30306-7, 2284-8, 23308-3, LIVR #### [facility] ([id number]) [address], [address] [place] [address] MCHC (RBC) [Mass/Vol] 32.5 g/dL Normal 32-36 [facility] Comment on above: Performed By: #### C BCA, PINR, BMP, 70464-2, 2284-8, 69585-1, LIVR #### [facility] ([id number]) [address], [address] [place] [address] MCV (RBC) [Entitic vol] 94 fL Normal 80-100 [facility] Comment on above: Performed By: #### C BCA, PINR, BMP, 15531-8, 2283-, 91605-6, LIVR #### [facility] ([id number]) [address] [address] [place] [address] Monocytes (Bld) [#/Vol] 0.2 10*3/uL Normal 0-0.9 [facility] Comment on above: Performed By: #### C BCA, PINR, BMP, 00873-8, 2283-, 94402-0, LIVR #### [facility] ([id number]) [address] [address] [place] [address] Monocytes/100 WBC (Bld) 3.0 % Normal [facility] Comment on above: Performed By: #### C BCA, PINR, BMP, 22053-2, 2283-, 80589-9, LIVR #### [facility] ([id number]) [address] [address] [place] [address] Neutrophils (Bld) [#/Vol] 5.3 10*3/uL Normal 1.5-6.6 [facility] Comment on above: Performed By: #### C BCA, PINR, BMP, 45489-2, 2283-, 68574-4, LIVR #### [facility] ([id number]) [address] [address] [place] [address] OVALOCYTE 2+ Abnormal NONE [facility] Comment on above: Performed By: #### C BCA, PINR, BMP, 36407-6, 2284-8, 93069-9, LIVR #### [facility] ([id number]) [address], [address] [place] [address] Platelet mean volume (Bld) [Entitic vol] 8.0 fL Normal 7-12 [facility] Comment on above: Performed By: #### C BCA, PINR, BMP, 55430-4, 2284-8, 70334-5, LIVR #### [facility] ([id number]) [address], [address] [place] [address] Platelets (Bld) [#/Vol] 226 10*3/uL Normal 150-450 [facility] Comment on above: Performed By: #### C BCA, PINR, BMP, 14789-0, 2284-8, 67032-3, LIVR #### [facility] ([id number]) [address], [address] [place] [address] POLYCHROMASIA 1+ Abnormal [facility] Comment on above: Performed By: #### C BCA, PINR, BMP, 50457-8, 2284-8, 52329-8, LIVR #### [facility] ([id number]) [address], [address] [place] [address] RBC COUNT 2.27 X10E12/L Low 4.10-5.70 [facility] Comment on above: Performed By: #### C BCA, PINR, BMP, 69902-4, 2284-8, 91264-0, LIVR #### [facility] ([id number]) [address], [address] [place] [address] SEG NEUTROPHIL 66.0 % Normal [facility] Comment on above: Performed By: #### C BCA, PINR, BMP, 75460-6, 2284-8, 54075-3, LIVR #### [facility] ([id number]) [address], [address] [place] [address] TEARDROP 1+ Abnormal NONE [facility] Comment on above: Performed By: #### C BCA, PINR, BMP, 90225-2, 2284-8, 55049-7, LIVR #### [facility] ([id number]) [address], [address] [place] [address] WBC (Bld) [#/Vol] 6.2 10*3/uL Normal 4.0-11.0 [facility] Comment on above: Performed By: #### C BCA, PINR, BMP, 73568-6, 2283-8, 72720-8, LIVR #### [facility] ([id number]) [address], [address] [place] [address] Glucose Glucometer (BldC) [M ass/Vol]on 09-11-2024 Glucose [Mass/Vol] 116 mg/dL High 65-99 [facility] Glucose [Mass/Vol] 106 mg/dL High 65-99 [facility] Glucose [Mass/Vol] 112 mg/dL High 65-99 [facility] Glucose [Mass/Vol] 153 mg/dL High 65-99 [facility] HGBon 09-11-2024 Hematocrit (Bld) [Volume fraction] 24.1 % Low 39-49 [facility] Comment on above: Performed By: #### C BCA, PINR, BMP, 59739-0, 2283-8, 88615-6, LIVR #### [facility] ([id number]) [address], [address] [place] [address] Hemoglobin (Bld) [Mass/Vol] 7.9 g/dL Low 13.0-17.0 [facility] Comment on above: Performed By: #### C BCA, PINR, BMP, 33073-3, 2284-8, 62179-2, LIVR #### [facility] ([id number]) [address], [address] [place] [address] PROTIME AND INRon 09-11-2024 INR Coag (PPP) [Relative time] 1.4 {INR} High 0.9-1.2 [facility] Comment on above: Performed By: #### C BCA, PINR, BMP, 28718-7, 2284-8, 46419-3, LIVR #### [facility] ([id number]) [address], [address] [place] [address] PT Coag (PPP) [Time] 16.0 s High 9.8-13.[address] [facility] Comment on above: Performed By: #### C BCA, PINR, BMP, 45054-6, 2284-8, 29115-3, LIVR #### [facility] ([id number]) [address], [address] [place] [address] RESP PATHOGENS/QAWL-BaL-7zo 09-11-2024 Respiratory pathogens DNA and RNA panel RICK+non-probe (Nph) SPECIMEN SOURCE NASO PHARYNX ADENOVIRUS Not detected (qualifier value) CORONAVIRUS 229E Not detected (qualifier value) CORONAVIRUS HKU1 Not detected (qualifier value) CORONAVIRUS NL63 Not detected (qualifier value) CORONAVIRUS OC43 Not detected (qualifier value) HUMAN METAPNEUVIRUS Not detected (qualifier value) RHINO/ENTEROVIRUS Not detected (qualifier value) INFLUENZA A Not detected (qualifier value) INFLUENZA B Not detected (qualifier value) PARAINFLUENZA 1 Not detected (qualifier value) PARAINFLUENZA 2 Not detected (qualifier value) PARAINFLUENZA 3 Not detected (qualifier value) PARAINFLUENZA 4 Not detected (qualifier value) RESP SYNCYTIAL VIRUS Not detected (qualifier value) BORD PARAPERTUSSIS Not detected (qualifier value) BORDETELLA PERTUSSIS Not detected (qualifier value) CHLAM.PNEUMONIAE Not detected (qualifier value) MYCO. PNEUMONIAE Not detected (qualifier value) SARS CoV 2 Not detected (qualifier value) NOTE The [employer] Respiratory Panel 2.1 (RP2.1) is a multiplexed nucleic acid test intended for the simultaneous qualitative detection and differentiation of nucleic acid from multiple viral and bacterial respiratory organisms, including nucleic acid from Severe Acute Respiratory Syndrome Coronavirus 2 (SARS-CoV-2), in nasopharyngeal swabs obtained from individuals suspected of COVID-19 by their healthcare provider. Testing is limited to laboratories certified under the Clinical Laboratory Improvement Amendments of 1988 (CLIA), to perform high complexity or moderate complexity tests. SARS-CoV-2 RNA and nucleic acids from the other respiratory viral and bacterial organisms identified by this test are generally detectable in nasopharyngeal swabs during the acute phase of infection. The detection and identification of specific viral and bacterial nucleic acids from individuals exhibiting signs and/or symptoms of respiratory infection is indicative of the presence of the identified microorganism and aids in the diagnosis of respiratory infection if used in conjunction with other clinical and epidemiological information. Positive results are indicative of the presence of the identified organism, but do not rule out co-infection with other pathogens. The agent(s) detected by the [employer] RP2.1 may not be the definite cause of disease and clinical correlation with patient history and other diagnostic information is necessary to determine patient infection status. Negative results in the setting of a respiratory illness may be due to infection with pathogens not detected by this test, or lower respiratory tract infection that may not be detected by a nasopharyngeal specimen. Negative results do not preclude SARS-CoV-2 infection and should not be used as the sole basis for patient management decisions. Negative WAYNE-CoV-2 results must be combined with clinical observations, patient history and epidemiological information. Negative results for other organisms identified by the test may require additional laboratory testing when evaluating a patient with possible respiratory tract infection. Normal [facility] Comment on above: Performed By: #### C BCA, PINR, BMP, 09219-9, 2284-8, 09719-0, LIVR #### [facility] ([id number]) [address], [address] [place] [address] XR CHEST 1 VWon 09-11-2024 XR CHEST 1 VW XR CHEST 1 VW CHEST 1 VIEW HISTORY: Pneumothorax follow-up COMPARISON: 09/11/2024, 1:48 PM IMPRESSION: * Previously seen right apical pneumothorax not well visible. Small right pleural effusion. * Left lung is clear. * Unchanged cardiomediastinal silhouette. Finalized by Kristofer Lee MD on 09/11/2024 10:30 PM Normal [facility] XR CHEST 1 VW XR CHEST 1 VW Single view chest History:effusion s/p thoracentesis Difficulty breathing, shortness of breath Comparison: 09/07/2024 Findings: Single portable view of the chest. Small right pleural effusion with right lower lung atelectasis versus pneumonia. Possible small right apical pneumothorax measuring 12 to 13 mm. Impression: Decreased small right pleural effusion with underlying atelectasis versus pneumonia. Possible small right apical pneumothorax measuring 12 to 13 mm.. Finalized by Tamela Escalante MD on 09/11/2024 2:02 PM Normal [facility] BF CELL CT AND DIFFon 2024 BODY FLUID COMMENT Interpreta tion- ------- Normal [facility] Comment on above: Result Comment: Refe rence values for this fluid type are undefined, as fluid accumulation is considered abnormal. SEE CYTOLOGY REPORT Corrected on 09/11 AT 1341: Previously reported as Interpretation Reference values for this fluid type are undefined, as fluid accumulation is considered abnormal. Performed By: #### C BCA, PINR, BMP, 79038-4, 2284-8, 86179-2, LIVR #### [facility] ([id number]) [address], [address] [place] [address] FLUID CLARITY CLEAR Normal [facility] Comment on above: Performed By: #### C BCA, PINR, BMP, 85302-7, 2284-8, 88876-7, LIVR #### [facility] ([id number]) [address], [address] [place] [address] FLUID COLOR STRAW Normal [facility] Comment on above: Performed By: #### C BCA, PINR, BMP, 15139-6, 2284-8, 85972-7, LIVR #### [facility] ([id number]) [address], [address] [place] [address] FLUID LYMPHOCYTE 12 % Normal [facility] Comment on above: Performed By: #### C BCA, PINR, BMP, 69746-1, 2284-8, 13938-7, LIVR #### [facility] ([id number]) [address], [address] [place] [address] FLUID NEUTROPHILS 11 % Normal [facility] Comment on above: Performed By: #### C BCA, PINR, BMP, 95256-4, 2284-8, 81122-1, LIVR #### [facility] ([id number]) [address], [address] [place] [address] 83 /uL Normal [facility] Comment on above: Performed By: #### C BCA, PINR, BMP, 71928-6, 2284-8, 01676-8, LIVR #### [facility] ([id number]) [address], [address] [place] [address] FLUID SPECIMEN TYPE PLEURAL FLUID Normal [facility] Comment on above: Result Comment: RIGKylie T Performed By: #### C BCA, PINR, BMP, 81062-2, 2284-8, 38680-2, LIVR #### [facility] ([id number]) [address], [address] [place] [address] MACROPHAGES 77 % Normal [facility] Comment on above: Performed By: #### C BCA, PINR, BMP, 05157-5, 2284-8, 23302-5, LIVR #### [facility] ([id number]) [address], [address] [place] [address] 182 /uL Normal [facility] Comment on above: Performed By: #### C BCA, PINR, BMP, 55793-7, 2284-8, 53883-9, LIVR #### [facility] ([id number]) [address], [address] [place] [address] BONE MARROWon 09-10-2024 BONE MARROW SEE SEPARATE REPORT Normal [facility] Comment on above: Result Comment: REVI EWED BY Tito ALONZO M.D. Performed By: #### C BCA, PINR, BMP, 96728-3, 2284-8, 54549-7, LIVR #### [facility] ([id number]) [address], [address] [address] CBC AND AUTO DIFFon 09-10-19 25 Band form neutrophils/100 WBC (Bld) 33.0 % Normal [facility] Comment on above: Performed By: #### Susie WAKEFIELD, TSHR, 2132-03 #### [facility] ([id number]) [address], [address] [address] Erythrocyte distribution width (RBC) [Ratio] 20.7 % High 11.5-15.0 [facility] Comment on above: Performed By: #### Susie WAKEFIELD, TSHR, 2132-03 #### [facility] ([id number]) [address], [address] [address] FRAGMENT 1+ Abnormal NONE [facility] Comment on above: Performed By: #### Susie WAKEFIELD, TSHR, 2132-03 #### [facility] ([id number]) [address], [address] [address] Hematocrit (Bld) [Volume fraction] 21.8 % Low 39-49 [facility] Comment on above: Performed By: #### Susie WAKEFIELD, TSHR, 2132-03 #### [facility] ([id number]) [address], [facility] [address] [place] [address] Hemoglobin (Bld) [Mass/Vol] 7.2 g/dL Low 13.0-17.0 [facility] Comment on above: Performed By: #### Susie WAKEFIELD, TSHR, 2132-03 #### [facility] ([id number]) [address], [address] [place] [address] Lymphocytes (Bld) [#/Vol] 0.8 10*3/uL Low 1.0-3.5 [facility] Comment on above: Performed By: #### Susie WAKEFIELD TSHR, 2132-03 #### [facility] ([id number]) [address], [address] [place] [address] Lymphocytes/100 WBC (Bld) 12.0 % Normal [facility] Comment on above: Performed By: #### Susie WAKEFIELD TSHR, 2132-03 #### [facility] ([id number]) [address], [address] [place] [address] MCH (RBC) [Entitic mass] 30.8 pg Normal 27-34 [facility] Comment on above: Performed By: #### Susie WAKEFIELD TSHR, 2132-03 #### [facility] ([id number]) [address], [address] [place] [address] MCHC (RBC) [Mass/Vol] 32.9 g/dL Normal 32-36 [facility] Comment on above: Performed By: #### Susie WAKEFIELD TSHR, 2132-03 #### [facility] ([id number]) [address], [address] [place] [address] MCV (RBC) [Entitic vol] 94 fL Normal 80-100 [facility] Comment on above: Performed By: #### Susie WAKEFIELD TSHR, 2132-03 #### [facility] ([id number]) [address], [address] [place] [address] Metamyelocytes/100 WBC (Bld) 3.0 % Normal [facility] Comment on above: Performed By: #### Susie WAKEFIELD TSHR, 2132-03 #### [facility] ([id number]) [address], [address] [place] [address] Monocytes (Bld) [#/Vol] 0.1 10*3/uL Normal 0-0.9 [facility] Comment on above: Performed By: #### JAIME SUTHERLAND, 2132-03 #### [facility] ([id number]) [address], [address] [place] [address] Monocytes/100 WBC (Bld) 1.0 % Normal [facility] Comment on above: Performed By: #### JAIME SUTHERLAND, 2132-03 #### [facility] ([id number]) [address], [address] [place] [address] MYELOCYTE 1.0 % Normal [facility] Comment on above: Performed By: #### JAIME SUTHERLAND, 2132-03 #### [facility] ([id number]) [address], [address] [place] [address] Neutrophils (Bld) [#/Vol] 5.2 10*3/uL Normal 1.5-6.6 [facility] Comment on above: Performed By: #### JAIME SUTHERLAND, 2132-03 #### [facility] ([id number]) [address], [address] [place] [address] OVALOCYTE 1+ Abnormal NONE [facility] Comment on above: Performed By: #### JAIME SUTHERLAND, 2132-03 #### [facility] ([id number]) [address], [address] [place] [address] Platelet mean volume (Bld) [Entitic vol] 8.1 fL Normal 7-12 [facility] Comment on above: Performed By: #### JAIME SUTHERLAND, 2132-03 #### [facility] ([id number]) [address], [address] [place] [address] Platelets (Bld) [#/Vol] 231 10*3/uL Normal 150-450 [facility] Comment on above: Performed By: #### C BC, TSHR, 2132-03 #### [facility] ([id number]) [address], [address] [place] [address] POLYCHROMASIA 1+ Abnormal NONE [facility] Comment on above: Performed By: #### Susie WAKEFIELD TSHR, 2132-03 #### [facility] ([id number]) [address], [address] [place] [address] RBC COUNT 2.33 X10E12/L Low 4.10-5.70 [facility] Comment on above: Performed By: #### Susie WAKEFIELD TSHR, 2132-03 #### [facility] ([id number]) [address], [address] [place] [address] SEG NEUTROPHIL 50.0 % Normal [facility] Comment on above: Performed By: #### Susie WAKEFIELD TSHR, 2132-03 #### [facility] ([id number]) [address], [address] [place] [address] WBC (Bld) [#/Vol] 6.4 10*3/uL Normal 4.0-11.0 [facility] Comment on above: Performed By: #### Susie WAKEFIELD TSHR, 2132-03 #### [facility] ([id number]) [address], [address] [place] [address] COMPREHENSIVE METABOLIC PANE John Paul 09-10-2024 Albumin [Mass/Vol] 3.6 g/dL Normal 3.2-5.3 [facility] Comment on above: Performed By: #### Susie WAKEFIELD TSHR, 2132-03 #### [facility] ([id number]) [address], [address] [place] [address] ALP [Catalytic activity/Vol] 75 U/L Normal 39-130 [facility] Comment on above: Performed By: #### Susie WAKEFIELD TSHR, 2132-03 #### [facility] ([id number]) [address], [address] [place] [address] ALT [Catalytic activity/Vol] 7 U/L Normal 0-40 [facility] Comment on above: Performed By: #### Susie WAKEFIELD TSHR, 2132-03 #### [facility] ([id number]) [address], [address] [place] [address] Anion gap [Moles/Vol] 5 mmol/L Normal 5-15 [facility] Comment on above: Performed By: #### Susie WAKEFIELD TSHR, 2132-03 #### [facility] ([id number]) [address], [address] [place] [address] AST [Catalytic activity/Vol] 17 U/L Normal 0-41 [facility] Comment on above: Performed By: #### Susie WAKEFIELD TSHR, 2132-03 #### [facility] ([id number]) [address], [address] [place] [address] Bilirubin [Mass/Vol] 0.8 mg/dL Normal 0.3-1.[address] [facility] Comment on above: Performed By: #### Susie WAKEFIELD TSHR, 2132-03 #### [facility] ([id number]) [address], [address] [place] [address] Calcium [Mass/Vol] 8.1 mg/dL Low 8.5-10.5 [facility] Comment on above: Performed By: #### Susie WAKEFIELD TSHR, 2132-03 #### [facility] ([id number]) [address], [address] [place] [address] Chloride [Moles/Vol] 102 mmol/L Normal 98-[address] [facility] Comment on above: Performed By: #### Susie WAKEFIELD TSHR, 2132-03 #### [facility] ([id number]) [address], [address] [place] [address] CO2 [Moles/Vol] 28 mmol/L Normal 22-32 [facility] Comment on above: Performed By: #### JAIME SUTHERLAND, 2132-03 #### [facility] ([id number]) [address], [address] [place] [address] Creatinine [Mass/Vol] 0.65 mg/dL Normal 0.60-1.30 [facility] Comment on above: Result Comment: METH OD TRACEABLE TO IDMS STANDARD Performed By: #### JAIME SUTHERLAND, 2132-03 #### [facility] ([id number]) [address], [facility] [address] [place] [address] eGFR (CKD-EPI) NON-RACE DEPENDENT >90 Normal >59 [facility] Comment on above: Result Comment: Reported eGFR is based on the CKD-EPI 2020 equation that does not use a race coefficient. Performed By: #### JAIME SUTHERLAND, 2132-03 #### [facility] ([id number]) [address], [address] [place] [address] Glucose [Mass/Vol] 113 mg/dL High 65-99 [facility] Comment on above: Performed By: #### JAIME SUTHERLAND, 2132-03 #### [facility] ([id number]) [address] [address] [place] [address] Potassium [Moles/Vol] 4.1 mmol/L Normal 3.5-5.0 [facility] Comment on above: Performed By: #### JAIME SUTHERLAND, 2132-03 #### [facility] ([id number]) [address], [facility] [address] [place] [address] Protein [Mass/Vol] 6.7 g/dL Normal 6.0-8.0 [facility] Comment on above: Performed By: #### JAIME SUTHERLAND, 2132-03 #### [facility] ([id number]) [address] [place] [address] Sodium [Moles/Vol] 135 mmol/L Normal 134-146 [facility] Comment on above: Performed By: #### C BC, TSHR, 2132-03 #### [facility] ([id number]) [address] [place] [address] Urea nitrogen [Mass/Vol] 11 mg/dL Normal 5-27 [facility] Comment on above: Performed By: #### C BC, TSHR, 2132-03 #### [facility] ([id number]) [address] [facility], [facility] [address] [place] [address] Cytologyon 09-10-2024 Cytology Normal [facility] Comment on above: Result Comment: [facility] [address] [place] [address] Cytology Consultation Patient Name:PENNY ORDAZ:1960 (Age: 63)Gender:MTaken:09/10/2024Reported:09/13/2024 14:09Physician(s):Wendi Lai M.D. ([phone])Copy To:Gianluca Mahan [facility] Services[facility] #:[id number]. Rec. #:[id number]: #[id number] Final Cytologic Diagnosis Right pleural fluid: Atypical lymphocytes present ,correlate with pending bone marrow biopsy and electrophoresis samples k/09/13/2024 Interpretation [place] [address], License number: [id number].Electronically Signed Out By Tanya Mcghee MD Clinical History Severe anemia D64.9. Right sided pleural effusion, presentation for severe anemia and retroperitoneal lymphadenopathy concerning for blood malignancy. Gross Description Received was 1000ml of cloudy hilda fluid unfixed labeled as Ordaz, Right pleural fluid . CytoLyt added in lab. Specimen placed in formalin at 17:00 and had a total fixation time of 8 hours. 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 Comparison of this result to serum or plasma is recommended. Performed By: #### Susie WAKEFIELD TSHR, 2132-03 #### [facility] ([id number]) [address], [address] [place] [address] FLUID CULTUREon 09-10-2024 Bacteria identified Aer cx Nom (Body fld) GRAM STAIN WHITE BLOOD CELLS PRESENT NO ORGANISMS SEEN ON CONCENTRATED SMEAR CULTURE RESULTS NO GROWTH 5 DAYS Normal [facility] Comment on above: Performed By: #### Susie WAKEFIELD TSHR, 2132-03 #### [facility] ([id number]) [address], [address] [place] [address] FLUID LDHon 09-10-2024 FLUID LDH 185 U/L Normal [facility] Comment on above: Result Comment: The reference interval and other method performance specifications are unavailable for this body fluid. Comparison of this result to serum or plasma is recommended. Performed By: #### Susie WAKEFIELD, TSHR, 2132-03 #### [facility] ([id number]) [address], [address] [place] [address] LD SPECIMEN TYPE FLUID Normal [facility] Comment on above: Result Comment: PLEU RAL FLUID RIGHT Performed By: #### Susie WAKEFIELD, TSHR, 2132-03 #### [facility] ([id number]) [address], [address] [place] [address] FLUID T. PROTEINon 5 FLUID TOT. PROTEIN 2.1 g/dL Normal [facility] Comment on above: Result Comment: The reference interval and other method performance specifications are unavailable for this body fluid. Comparison of this result to serum or plasma is recommended. Performed By: #### C BC, TSHR, 2132-03 #### [facility] ([id number]) [address], [address] [place] [address] TP SPECIMEN TYPE FLUID Normal [facility] Comment on above: Result Comment: PLEU RAL FLUID RIGHT Performed By: #### C BC, TSHR, 2132-03 #### [facility] ([id number]) [address], [address] [place] [address] FLUID TRIGLYCERIDEon 025 FLUID TRIGLYCERIDE 11 mg/dL Normal [facility] Comment on above: Result Comment: The reference interval and other method performance specifications are unavailable for this body fluid. Comparison of this result to serum or plasma is recommended. Performed By: #### C BCA, PINR, BMP, 68878-7, 2284-8, 76736-2, LIVR #### [facility] ([id number]) [address], [address] [place] [address] TRIG SPECIMEN TYPE FLUID Normal [facility] Comment on above: Result Comment: PLEU RAL FLUID RIGHT Performed By: #### C BCA, PINR, BMP, 26555-3, 2284-8, 79569-0, LIVR #### [facility] ([id number]) [address], [address] [place] [address] Flow cytometry specialist re view Jian (Unsp spec) [Interp]on 09-10-2024 FLOW CYTOMETRY BM SEE SEPARATE REPORT Normal [facility] Comment on above: Result Comment: REVI EWED BY Tito ALONZO M.D. Performed By: #### C BCA, PINR, BMP, 66223-4, 2284-8, 06216-8, LIVR #### [facility] ([id number]) [address] [place] [address] Glucose Glucometer (BldC) [M ass/Vol]on 09-10-2024 Glucose [Mass/Vol] 97 mg/dL Normal 65-99 [facility] Glucose [Mass/Vol] 99 mg/dL Normal 65-99 [facility] Glucose [Mass/Vol] 155 mg/dL High 65-99 [facility] Karyotype Nom (BM)on 025 CHROMOSOME BONE MARROW SEE COMMENTS 12/2024 10:41 AM Normal [facility] Comment on above: Result Comment: NOTE Test Result Flag Unit RefValue ---- Chromosomes, Hematologic, BM Result Summary See Interpretation Interpretation See Note Of 20 metaphases, four 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 As the sole cytogenetic abnormality in the absence of morphological criteria, trisomy 8 is not considered definitive evidence of MDS (Swerdlow et al., WHO Classification of Tumours of Haematopoietic and Lymphoid Tissues. IARC Press:Austen 2017; page 104). Clinical and pathologic correlation is recommended. Result 47,XY,+8[16]/46,XY[4] Reason for Referral See Note severe anemia, lymphadenopathy, splenomegaly Specimen Bone Marrow Source Right iliac crest Method Culture without mitogens Banding Method See Note Band Resolution: <400 Stain Name Cells Analyzed Cells Karyograms Counted Prepared GTL 20 0 3 Total 20 0 3 James to Stain Name: GTL=G-banding; QFQ=Q-banding; DAPI=DAPI-staining; CBL=C-banding; AGNOR=Silver-staining; NON=Non-banded The sum of Cells Analyzed and Cells Counted equals the total cells examined. Additional Information See Note A portion of the testing process was performed at [facility] site 0286[address], [id number], 508697. Released By Angie Vuong D.O. Test Performed by: [address] [address] Acid Recovery Operator: Alexandre Crain Ph.D.; CLIA# [id number] Performed By: #### C BCA, PINR, BMP, 81974-0, 4-8, 77379-9, LIVR #### [facility] ([id number]) [address], [facility] [address] [place] [address] LDH [Catalytic activity/Vol] on 09-10-2024 LDH 610 U/L High 100-235 [facility] Comment on above: Performed By: #### C BC, TSHR, 2132-03 #### [facility] ([id number]) [address] [facility] [address] [place] [address] Laboratory comment Jian (Repo rt)on 09-10-2024 UNLISTED LAB TEST Sent to reference lab Normal [facility] Comment on above: Performed By: #### C BCA, PINR, BMP, 55903-9, 4-8, 16617-6, LIVR #### [facility] ([id number]) [address], [facility] [address] [place] [address] PHOSPHORUSon 09-10-2024 Phosphate [Mass/Vol] 3.1 mg/dL Normal 2.4-4.[address] [facility] Comment on above: Performed By: #### C BC, TSHR, 2132-03 #### [facility] ([id number]) [address], [facility] [address] [place] [address] PROTIME AND INRon 09-10-2024 INR Coag (PPP) [Relative time] 1.4 {INR} High 0.8-1.1 [facility] Comment on above: Performed By: #### JAIME SUTHERLAND, 2132-03 #### [facility] ([id number]) [address] [place] [address], [address] [place] [address] PT Coag (PPP) [Time] 16.3 s High 9.8-13.[address] [facility] Comment on above: Performed By: #### JAIME SUTHERLAND, 2132-03 #### [facility] ([id number]) [address] [place] [address], [address] [place] [address] Procalcitonin IA [Mass/Vol]o n 09-10-2024 PROCALCITONIN 0.10 ng/mL High <0.05 [facility] Comment on above: Result Comment: NOTE <0.50 ng/mL - Low risk of severe sepsis and/or septic shock. <2.00 ng/mL - Recommend retesting within 6-24 hours. >2.00 ng/mL - High risk of sepsis and/or septic shock. Performed By: #### JAIME SUTHERLAND, 2132-03 #### [facility] ([id number]) [address] [place] [address], [address] [place] [address] Surgical Pathologyon 025 Surgical Pathology Normal [facility] Comment on above: Result Comment: [facility] [address] [place] [address] Bone Marrow Consultation Patient Name:PENNY ORDAZ:1960 (Age: 63)Gender:MTaken:09/10/2024Reported:09/15/2024Physician(s):Yeny Tyson ([phone])Copy To:Fredrick Sousa, [facility] Servicesession #:[id number]. Rec. 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 No increased CD34 plus/CD117+ blasts are noted. The marrow aspirate is a partial dry tap. The CBC and smear review reveals normal leukocyte count with 3% blasts and minimal left shift, and marked normocytic anemia with marked anisocytosis, mild teardrop forms and no circulating nRBCs. Correlation with the myeloproliferative neoplasm local flatbed driver mutations is appreciated. There is no evidence of lymphoma. Report Electronically Signed Out watkins/09/15/2024Arcenio Alonzo MD Flow Cytometry-Surg/BM/NG Date Reported: 09/15/2024 The right up with 5% myeloblasts Flow cytometric analysis of the marrow aspirate cells demonstrates maturing hematopoietic elements. Blasts are slightly increased (5%) on CD45/side scatter analysis or CD34 staining. No aberrant patterns of antigen acquisition are identified on maturing myeloid cells. Byron on the lymphoid population demonstrates a mixed population of phenotypically unremarkable T-cells, polyclonal B-cells, and natural killer cells, without a detectable monoclonal population. No significant plasma cell population is identified. Immunophenotyping antibodies tested: CD2, CD3, CD4, CD5, CD7, CD8, CD10, CD13, CD16, CD19, CD20, CD23, CD33, CD34, CD38, CD43, CD45, CD56, CD117, CD123, CD138, TRCB1, Mabie, and Lambda. Immunophenotyping Comment: Immunophenotyping has been used in this diagnostic evaluation. This test was developed and its performance characteristics determined by the [facility] Department. It has not been cleared or approved by the U.S. Food and Drug Administration. The FDA has determined that such clearance or approval is not necessary. This test is used for clinical purposes. It should not be regarded as investigational or for research. This laboratory is certified under the Clinical Laboratory Improvement Amendments of 1988 ( CLIA ) as qualified to perform high-complexity clinical testing. The smear from the tube is a dry tap with occasional blasts (5% by flow). Flow cytometric immunophenotyping confirms the myeloid lineage of the blasts. The marrow study reveals primary myelofibrosis (see S25???8350). Electronically Signed Out Arcenio Alonzo MD Interpretation performed at [facility], [address] [place] [address], License number: [id number]. Clinical History Concern for lymphoma, CT abdomen pelvis with bulky retroperitoneal, right iliac, inguinal lymphadenopathy with splenomegaly. Gross Description 1. Received in B+, labeled ORDAZ, right iliac crest BM clot , is a 1.9 x 0.7 x 0.1 cm aggregate of dark red-brown, clotted hemorrhagic material. The specimen is submitted entirely in a single cassette. (1,ns,Y99-0857-6, m5)MW 2. Received in B+, labeled ORDAZ, right iliac crest BMBX , is a cylindrical bone core biopsy, 0.8 in length x 0.3 cm in diameter. The specimen is submitted entirely in a single cassette, following brief decalcification in Rapid-Elfe[employer] Immuno. (1,ns,M07-4768-2, m5)MW mxw/09/10/2024SAN Microscopic Findings Clinical History: Retroperitoneal lymphadenopathy and splenomegaly - R/O lymphoma CBC: WBC: 7.0 x109/L. RBC: 2.4 x 1012/L. Hb: 7.5 g/dL. Hct: 21.8. MCV: 92.9 fL. RDW: 20.2. Platelets: 273 x109/L. differential count: Neutrophils: 5.9 x109/L. Lymphocytes: 0.6 x109/L. Monocytes: 0.4 x109/L. Eosinophils: 0.0 x109/L. Basophils: 0.1 x109/L. Other lab data: N/A Procedure performed/anatomic site: Right iliac crest. Aspirate smear/aspirate clot/core bx PERIPHERAL BLOOD SMEAR: Morphology/interpretation: The CBC and smear review reveals a normal leukocyte count with occasional blasts (3% by flow) and borderline left shift, marked normocytic anemia with marked anisocytosis, mild teardrop RBCs & no nRBCs, and normal platelets with occasional giant forms. BONE MARROW ASPIRATE: Cellularity/adequacy of particles and cell trails: Sparsely cellular hemodilute touch imprint Nucleated cell differential count (%): (200 cells counted) (Normal) (0-2%) 0.0 Blasts (1-5%) 0.0 Promyelocytes (32-72%) 87.5 Myelos/Metas/Bands/Segs (13-37%) 9.0 Erythroid precursors (1-6%) 1.0 Eosinophils (0-1%) 0.0 Basophils (0-4%) 2. (more content not included)... URIC ACIDon 09-10-2024 Urate [Mass/Vol] 6.1 mg/dL Normal 2.6-7.2 [facility] Comment on above: Performed By: #### Susie WAKEFIELD TSHR, 2132-03 #### [facility] ([id number]) [address], [address] [place] [address] BASIC METABOLIC PANLon 09-09 Anion gap [Moles/Vol] 3 mmol/L Low 5-15 [facility] Comment on above: Performed By: #### Susie WAKEFIELD TSHR, 2132-03 #### [facility] ([id number]) [address], [address] [place] [address] Calcium [Mass/Vol] 8.2 mg/dL Low 8.5-10.5 [facility] Comment on above: Performed By: #### Susie WAKEFIELD TSHR, 2132-03 #### [facility] ([id number]) [address], [address] [place] [address] Chloride [Moles/Vol] 104 mmol/L Normal 98-[address] [facility] Comment on above: Performed By: #### Susie WAKEFIELD TSHR, 2132-03 #### [facility] ([id number]) [address], [address] [place] [address] CO2 [Moles/Vol] 28 mmol/L Normal 22-32 [facility] Comment on above: Performed By: #### Susie WAKEFIELD TSHR, 2132-03 #### [facility] ([id number]) [address], [address] [place] [address] Creatinine [Mass/Vol] 0.63 mg/dL Normal 0.60-1.30 [facility] Comment on above: Result Comment: METH OD TRACEABLE TO IDMS STANDARD Performed By: #### JAIME SUTHERLAND, 2132-03 #### [facility] ([id number]) [address], [address] [place] [address] eGFR (CKD-EPI) NON-RACE DEPENDENT >90 Normal >59 [facility] Comment on above: Result Comment: Reported eGFR is based on the CKD-EPI 2020 equation that does not use a race coefficient. Performed By: #### JAIME SUTHERLAND, 2132-03 #### [facility] ([id number]) [address], [address] [place] [address] Glucose [Mass/Vol] 112 mg/dL High 65-99 [facility] Comment on above: Performed By: #### JAIME SUTHERLAND, 2132-03 #### [facility] ([id number]) [address], [address] [place] [address] Potassium [Moles/Vol] 4.2 mmol/L Normal 3.5-5.0 [facility] Comment on above: Performed By: #### Susie WAKEFIELD TSHBrit, 2132-03 #### [facility] ([id number]) [address], [address] [place] [address] Sodium [Moles/Vol] 135 mmol/L Normal 134-146 [facility] Comment on above: Performed By: #### Susie WAKEFIELD TSHR, 2132-03 #### [facility] ([id number]) [address], [address] [place] [address] Urea nitrogen [Mass/Vol] 12 mg/dL Normal 5-27 [facility] Comment on above: Performed By: #### Susie WAKEFIELD TSHR, 2132-03 #### [facility] ([id number]) [address], [address] [place] [address] CBC AND AUTO DIFFon 09-09-19 25 ABSOLUTE BASOPHIL 0.1 X10E9/L Normal 0.0-0.2 [facility] Comment on above: Performed By: #### Susie WAKEFIELD TSHR, 2132-03 #### [facility] ([id number]) [address], [facility] [address] [place] [address] Band form neutrophils/100 WBC (Bld) 5.8 % Normal [facility] Comment on above: Performed By: #### JAIME SUTHERLAND, 2132-03 #### [facility] ([id number]) [address], [address] [place] [address] Basophils/100 WBC (Bld) 1.0 % Normal [facility] Comment on above: Performed By: #### Susie WAKEFIELD TSHR, 2132-03 #### [facility] ([id number]) [address], [address] [place] [address] Erythrocyte distribution width (RBC) [Ratio] 20.4 % High 11.5-15.0 [facility] Comment on above: Performed By: #### Susie WAKEFIELD TSHBrit, 2132-03 #### [facility] ([id number]) [address], [address] [place] [address] Hematocrit (Bld) [Volume fraction] 22.1 % Low 39-49 [facility] Comment on above: Performed By: #### Susie WAKEFIELD TSHR, 2132-03 #### [facility] ([id number]) [address], [address] [place] [address] Hemoglobin (Bld) [Mass/Vol] 7.2 g/dL Low 13.0-17.0 [facility] Comment on above: Performed By: #### Susie WAKEFIELD TSHR, 2132-03 #### [facility] ([id number]) [address], [address] [place] [address] Lymphocytes (Bld) [#/Vol] 0.4 10*3/uL Low 1.0-3.5 [facility] Comment on above: Performed By: #### Susie WAKEFIELD TSHBrit, 2132-03 #### [facility] ([id number]) [address], [address] [place] [address] Lymphocytes/100 WBC (Bld) 6.7 % Normal [facility] Comment on above: Performed By: #### JAIME SUTHERLAND, 2132-03 #### [facility] ([id number]) [address], [address] [place] [address] MCH (RBC) [Entitic mass] 30.2 pg Normal 27-34 [facility] Comment on above: Performed By: #### Susie WAKEFIELD TSHBrit, 2132-03 #### [facility] ([id number]) [address], [address] [place] [address] MCHC (RBC) [Mass/Vol] 32.5 g/dL Normal 32-36 [facility] Comment on above: Performed By: #### JAIME SUTHERLAND, 2132-03 #### [facility] ([id number]) [address], [address] [place] [address] MCV (RBC) [Entitic vol] 93 fL Normal 80-100 [facility] Comment on above: Performed By: #### Susie WAKEFIELD TSHR, 2132-03 #### [facility] ([id number]) [address], [address] [place] [address] Monocytes (Bld) [#/Vol] 0.1 10*3/uL Normal 0-0.9 [facility] Comment on above: Performed By: #### Susie WAKEFIELD TSHR, 2132-03 #### [facility] ([id number]) [address], [address] [place] [address] Monocytes/100 WBC (Bld) 1.0 % Normal [facility] Comment on above: Performed By: #### Susie WAKEFIELD, TSHR, 2132-03 #### [facility] ([id number]) [address], [address] [place] [address] MYELOCYTE 1.0 % Normal [facility] Comment on above: Performed By: #### Susie WAKEFIELD TSHR, 2132-03 #### [facility] ([id number]) [address], [address] [place] [address] Neutrophils (Bld) [#/Vol] 5.9 10*3/uL Normal 1.5-6.6 [facility] Comment on above: Performed By: #### Susie WAKEFIELD TSHR, 2132-03 #### [facility] ([id number]) [address], [address] [place] [address] OVALOCYTE 2+ Abnormal NONE [facility] Comment on above: Performed By: #### Susie WAKEFIELD TSHR, 2132-03 #### [facility] ([id number]) [address], [address] [place] [address] Platelet mean volume (Bld) [Entitic vol] 7.7 fL Normal 7-12 [facility] Comment on above: Performed By: #### Susie WAKEIFELD TSHR, 2132-03 #### [facility] ([id number]) [address], [address] [place] [address] Platelets (Bld) [#/Vol] 236 10*3/uL Normal 150-450 [facility] Comment on above: Performed By: #### Susie WAKEFIELD, TSHR, 2132-03 #### [facility] ([id number]) [address], [address] [place] [address] RBC COUNT 2.38 X10E12/L Low 4.10-5.70 [facility] Comment on above: Performed By: #### C ASHU TSHR, 2132-03 #### [facility] ([id number]) [address], [facility] [address] [place] [address] SEG NEUTROPHIL 84.5 % Normal [facility] Comment on above: Performed By: #### Susie WAKEFIELD TSHR, 2132-03 #### [facility] ([id number]) [address], [address] [place] [address] TOXIC GRANULATION 1+ Abnormal NONE [facility] Comment on above: Performed By: #### Susie WAKEFIELD TSHR, 2132-03 #### [facility] ([id number]) [address], [address] [place] [address] WBC (Bld) [#/Vol] 6.5 10*3/uL Normal 4.0-11.0 [facility] Comment on above: Performed By: #### Susie WAKEFIELD TSHR, 2132-03 #### [facility] ([id number]) [address], [address] [place] [address] CT CHEST W CONTon 09-09-2024 CT CHEST W CONT CT CHEST W CONT Study: Contrast-enhanced CT of the chest dated 09/08/2024 2:38 PM. Indication: Lymphadenopathy. Comparison: None . Technique: After the injection of intravenous nonionic iodinated contrast, axial CT of the chest was performed from the lung apices to the hemidiaphragms. 2-D reformats were obtained. All CT scans at this facility use dose modulation, iterative reconstruction, and/or weight based dosing when appropriate to reduce radiation dose to as low as reasonably achievable. Findings: The central airways are patent. Small right pleural effusion with adjacent subsegmental atelectatic change however a component of infiltrate is difficult to exclude. Minimal right upper lobe medially located groundglass opacities. Right middle lobe calcified granuloma. Right basilar presumed calcified granuloma. Left upper lobe interlobular septal thickening. Left basilar subsegmental atelectatic change suspected. No pneumothorax. Cranially located left lower lobe calcified granuloma versus less likely a pleural plaque. Enlarged main pulmonary artery measuring up to 3.4 cm. The heart appears prominent in size. No pericardial effusion. No thoracic aortic aneurysm. Atheromatous calcifications the coronary arteries. Mediastinal lymphadenopathy is noted measuring up to 1.8 cm in the aortopulmonary window. There are prominent left axillary lymph nodes. Please see CT abdomen pelvis from 09/07/2024 for more complete evaluation of the abdomen however there is redemonstration of calcified granulomas in the spleen and presumed splenomegaly however incompletely visualized. Peripancreatic lymphadenopathy measuring up to 11 mm. No acute or grossly suspicious osseous abnormality. Impression: 1. Mediastinal lymphadenopathy measuring up to 1.8 cm. 2. Small right pleural effusion with adjacent subsegmental atelectatic change however difficult to exclude a small component of superimposed pneumonia. Scant right upper lobe groundglass opacities likely infectious/inflammatory in etiology. 3. Left hemithorax interlobular septal thickening which may relate to interstitial edema however given the known lymphadenopathy a degree of pulmonary lymphoma is not excluded. 4. Enlarged main pulmonary artery measuring up to 3.4 cm which can be seen in pulmonary hypertension. Finalized by Micheal Harmon MD on 09/09/2024 9:05 AM Normal [facility] HBV core Ab IA Qlon 09-09-19 25 ANTI HBc Non-Reactive Normal NRCT [facility] Comment on above: Result Comment: NEW TEST METHOD Performed By: #### C JAIME WAKEFIELD, 2132-03 #### [facility] ([id number]) [address] [place] [address] HBV surface Ab IA Qnon 09-09 Anti HBs quant. >500.00 Normal [facility] Comment on above: Result Comment: NOTE Vaccinated: >=10.00 mIU/mL, Positive (Immune) Unvaccinated: <10.00 mIU/mL, Negative (Not Immune) Interpretive values have changed due to implementation of a new method. Values run higher than previous method. Performed By: #### C JAIME WAKEFIELD, 2132-03 #### [facility] ([id number]) [address], [address] [place] [address] HBV surface Ag IA Qlon 09-09 HEPATITIS B SURF AG Non-Reactive Normal NRCT [facility] Comment on above: Result Comment: NEW TEST METHOD Performed By: #### C BC, TSHR, 2132-03 #### [facility] ([id number]) [address], [address] [place] [address] MAGNESIUMon 09-09-2024 Magnesium [Mass/Vol] 2.0 mg/dL Normal 1.8-2.[address] [facility] Comment on above: Performed By: #### C ASHU, TSHR, 2132-03 #### [facility] ([id number]) [address], [address] [place] [address] MR BRAIN W WO CONTon 025 MR BRAIN W WO CONT MR BRAIN W WO CONT STUDY: MR BRAIN W WO CONT INDICATION: Abnormal CT A/P, rule out occult changes. Fatigue, shortness of breath, weakness. Staging exam. TECHNIQUE: * Routine multiplanar multisequence MR imaging of the brain was performed with and without intravenous contrast. FINDINGS: No evidence of acute infarct, intracranial hemorrhage, mass effect or midline shift. Mild diffuse cortical atrophy. Otherwise brain volume, ventricles and sulci are age-appropriate without hydrocephalus. Mild burden of periventricular and subcortical T2/FLAIR hyperintensities which are nonspecific but may be seen in setting of chronic microvascular ischemic changes. Bilateral globes and orbits are unremarkable. Paranasal sinuses are clear. Trace mastoid fluid bilaterally. Major intracranial arterial flow voids are preserved by technique. No pathologic intraparenchymal enhancement. Scaphocephalic head shape, a congenital variant. IMPRESSION: * No acute intracranial abnormality or pathologic enhancement. * Mild atrophic and chronic microvascular ischemic changes. Finalized by David Stuart on 09/09/2024 2:26 PM Normal [facility] PROTIME AND INRon 09-09-2024 INR Coag (PPP) [Relative time] 1.4 {INR} High 0.8-1.1 [facility] Comment on above: Performed By: #### C BC, TSHR, 2132-03 #### [facility] ([id number]) [address], [address] [place] [address] PT Coag (PPP) [Time] 16.6 s High 9.8-13.[address] [facility] Comment on above: Performed By: #### C ASHU, TSHR, 2132-03 #### [facility] ([id number]) [address], [address] [place] [address] Anileridine Ql (U)on 025 JO1 ANTIBODY <0.2 Normal <1.0 [facility] Comment on above: Performed By: #### Susie WAKEFIELD, TSHR, 2132-03 #### [facility] ([id number]) [address], [address] [place] [address] BASIC METABOLIC PANLon 09-08 Anion gap [Moles/Vol] 8 mmol/L Normal 5-15 [facility] Comment on above: Performed By: #### C BCA, PINR, BMP, 66063-0, 2284-8, 74850-5, LIVR #### [facility] ([id number]) [address], [address] [place] [address] Calcium [Mass/Vol] 8.6 mg/dL Normal 8.5-10.5 [facility] Comment on above: Performed By: #### C BCA, PINR, BMP, 72057-7, 2284-8, 98851-0, LIVR #### [facility] ([id number]) [address], [address] [place] [address] Chloride [Moles/Vol] 104 mmol/L Normal 98-[address] [facility] Comment on above: Performed By: #### C BCA, PINR, BMP, 38751-8, 2284-8, 42280-0, LIVR #### [facility] ([id number]) [address], [address] [place] [address] CO2 [Moles/Vol] 23 mmol/L Normal 22-32 [facility] Comment on above: Performed By: #### C BCA, PINR, BMP, 61750-9, 2284-8, 10733-9, LIVR #### [facility] ([id number]) [address], [address] [place] [address] Creatinine [Mass/Vol] 0.67 mg/dL Normal 0.60-1.30 [facility] Comment on above: Result Comment: METH OD TRACEABLE TO IDMS STANDARD Performed By: #### C BCA, PINR, BMP, 26805-4, 2284-8, 44991-3, LIVR #### [facility] ([id number]) [address], [address] [place] [address] eGFR (CKD-EPI) NON-RACE DEPENDENT >90 Normal >59 [facility] Comment on above: Result Comment: Reported eGFR is based on the CKD-EPI 2020 equation that does not use a race coefficient. Performed By: #### C BCA, PINR, BMP, 67323-8, 2284-8, 68079-7, LIVR #### [facility] ([id number]) [address], [address] [place] [address] Glucose [Mass/Vol] 86 mg/dL Normal 65-99 [facility] Comment on above: Performed By: #### C BCA, PINR, BMP, 70493-9, 2284-8, 58604-1, LIVR #### [facility] ([id number]) [address], [address] [place] [address] Potassium [Moles/Vol] 4.4 mmol/L Normal 3.5-5.0 [facility] Comment on above: Performed By: #### C BCA, PINR, BMP, 53730-6, 2284-8, 05555-0, LIVR #### [facility] ([id number]) [address], [address] [place] [address] Sodium [Moles/Vol] 135 mmol/L Normal 134-146 [facility] Comment on above: Performed By: #### C BCA, PINR, BMP, 55590-2, 2284-8, 80968-0, LIVR #### [facility] ([id number]) [address], [address] [place] [address] Urea nitrogen [Mass/Vol] 13 mg/dL Normal 5-27 [facility] Comment on above: Performed By: #### C BCA, PINR, BMP, 36885-9, 2284-8, 85391-8, LIVR #### [facility] ([id number]) [address], [address] [place] [address] CBC AND AUTO DIFFon 09-08-19 ABSOLUTE BASOPHIL 0.1 X10E9/L Normal 0.0-0.2 [facility] Comment on above: Performed By: #### C BCA, PINR, BMP, 78071-4, 2284-8, 26386-3, LIVR #### [facility] ([id number]) [address], [address] [place] [address] ABSOLUTE NEUTROPHIL 6.0 X10E9/L Normal 1.5-6.[address] [facility] Comment on above: Performed By: #### C BCA, PINR, BMP, 98330-9, 2284-8, 27211-8, LIVR #### [facility] ([id number]) [address], [address] [place] [address] Basophils/100 WBC (Bld) 1.2 % Normal [facility] Comment on above: Performed By: #### C BCA, PINR, BMP, 52735-8, 2284-8, 66117-6, LIVR #### [facility] ([id number]) [address], [address] [place] [address] Eosinophils (Bld) [#/Vol] 0.0 10*3/uL Normal 0.0-0.4 [facility] Comment on above: Performed By: #### C BCA, PINR, BMP, 99172-8, 2284-8, 31157-9, LIVR #### [facility] ([id number]) [address], [address] [address] Eosinophils/100 WBC (Bld) 0.1 % Normal [facility] Comment on above: Performed By: #### C BCA, PINR, BMP, 22120-7, 2284-8, 61751-5, LIVR #### [facility] ([id number]) [address], [address] [address] Erythrocyte distribution width (RBC) [Ratio] 21.0 % High 11.5-15.0 [facility] Comment on above: Performed By: #### C BCA, PINR, BMP, 34487-8, 2284-8, 78036-5, LIVR #### [facility] ([id number]) [address], [address] [address] FRAGMENT 1+ Abnormal NONE [facility] Comment on above: Performed By: #### C BCA, PINR, BMP, 37055-1, 2284-8, 73528-1, LIVR #### [facility] ([id number]) [address], [address] [address] Hematocrit (Bld) [Volume fraction] 21.7 % Low 39-49 [facility] Comment on above: Performed By: #### C BCA, PINR, BMP, 01500-4, 2284-8, 96502-8, LIVR #### [facility] ([id number]) [address], [facility] [address] [place] [address] Hemoglobin (Bld) [Mass/Vol] 7.4 g/dL Low 13.0-17.0 [facility] Comment on above: Performed By: #### C BCA, PINR, BMP, 92636-9, 2284-8, 93383-6, LIVR #### [facility] ([id number]) [address], [address] [place] [address] Lymphocytes (Bld) [#/Vol] 0.6 10*3/uL Low 1.0-3.5 [facility] Comment on above: Performed By: #### C BCA, PINR, BMP, 17803-8, 2284-8, 55525-9, LIVR #### [facility] ([id number]) [address], [facility] [address] [place] [address] Lymphocytes/100 WBC (Bld) 8.2 % Normal [facility] Comment on above: Performed By: #### C BCA, PINR, BMP, 46880-7, 2284-8, 01200-0, LIVR #### [facility] ([id number]) [address], [address] [place] [address] MCH (RBC) [Entitic mass] 31.4 pg Normal 27-34 [facility] Comment on above: Performed By: #### C BCA, PINR, BMP, 53684-5, 2284-8, 54087-5, LIVR #### [facility] ([id number]) [address], [address] [place] [address] MCHC (RBC) [Mass/Vol] 34.1 g/dL Normal 32-36 [facility] Comment on above: Performed By: #### C BCA, PINR, BMP, 25252-9, 2284-8, 05522-7, LIVR #### [facility] ([id number]) [address], [address] [place] [address] MCV (RBC) [Entitic vol] 92 fL Normal 80-100 [facility] Comment on above: Performed By: #### C BCA, PINR, BMP, 91162-8, 2284-8, 80571-0, LIVR #### [facility] ([id number]) [address], [address] [place] [address] Monocytes (Bld) [#/Vol] 0.4 10*3/uL Normal 0-0.9 [facility] Comment on above: Performed By: #### C BCA, PINR, BMP, 51619-8, 2284-8, 54051-9, LIVR #### [facility] ([id number]) [address], [address] [place] [address] Monocytes/100 WBC (Bld) 5.7 % Normal [facility] Comment on above: Performed By: #### C BCA, PINR, BMP, 90311-4, 2284-8, 44802-0, LIVR #### [facility] ([id number]) [address], [address] [place] [address] Neutrophils/100 WBC (Bld) 84.8 % Normal [facility] Comment on above: Performed By: #### C BCA, PINR, BMP, 50636-5, 2284-8, 62704-7, LIVR #### [facility] ([id number]) [address], [address] [place] [address] OVALOCYTE 1+ Abnormal NONE [facility] Comment on above: Performed By: #### C BCA, PINR, BMP, 36221-8, 2284-8, 70402-0, LIVR #### [facility] ([id number]) [address], [address] [place] [address] Platelet mean volume (Bld) [Entitic vol] 7.4 fL Normal 7-12 [facility] Comment on above: Performed By: #### C BCA, PINR, BMP, 61984-4, 2284-8, 00796-1, LIVR #### [facility] ([id number]) [address], [address] [place] [address] Platelets (Bld) [#/Vol] 245 10*3/uL Normal 150-450 [facility] Comment on above: Performed By: #### C BCA, PINR, BMP, 64023-1, 2284-8, 05497-5, LIVR #### [facility] ([id number]) [address], [address] [place] [address] RBC COUNT 2.36 X10E12/L Low 4.10-5.70 [facility] Comment on above: Performed By: #### C BCA, PINR, BMP, 04825-6, 2284-8, 68005-6, LIVR #### [facility] ([id number]) [address], [address] [place] [address] TEARDROP 1+ Abnormal NONE [facility] Comment on above: Performed By: #### C BCA, PINR, BMP, 86394-8, 4-8, 24688-9, LIVR #### [facility] ([id number]) [address], [facility] [address] [place] [address] WBC (Bld) [#/Vol] 7.1 10*3/uL Normal 4.0-11.0 [facility] Comment on above: Performed By: #### C BCA, PINR, BMP, 56421-6, 4-8, 65624-2, LIVR #### [facility] ([id number]) [address], [address] [place] [address] Chromatin Ab Qlon 09-08-2024 CHROMATIN AB IGG <0.2 Normal <1.0 [facility] Comment on above: Performed By: #### C AGNIESZKA, 27114-9 #### [facility] ([id number]) [address], [address] [place] [address] Clinical Pathologyon 025 Clinical Pathology Normal [facility] Comment on above: Result Comment: [facility] [address] [place] [address] Clinical Pathology Report Patient Name:PENNY ORDAZ:1960 (Age: 63)Gender:MTaken:09/08/2024Reported:09/10/2024Physician(s):Yeny Tyson ([phone])Copy To: Rec. 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 Mild hypoalbuminemia. Report Electronically Signed Out df/09/10/2024Asher Glez MD Interpretation performed at [facility] [place] [address], License number: [id number]. Clinical History D64.9, R59.1, R16.1. SERUM PROTEIN ELECTROPHORESIS SAMPLE NO: [id number] ELECTROPHORETIC FRACTION CONCENTRATIONS (g/dL) PATIENT REFERENCE RANGE Albumin 3.2 L 3.4 - 5.3 Alpha-1 globulin 0.4 0.1 - 0.4 Alpha-2 globulin 0.7 0.4 - 1.1 Beta globulin 0.7 0.5 - 1.2 Gamma globulin 1.4 0.5 - 1.6 1 0.6 Total protein 6.3 6.0 - 8.0 (Electrophoretic gels and densitometric tracings on file in lab.) SERUM IEP IMMUNOGLOBULIN LEVELS (mg/dL): IgG : 1236 IgA : 269 IgM : 126 Free Mabie: 4.45 Free Lambda: 2.47 Free Mabie/Lambda ratio: 1.80 Specimen(s) Received 1: Serum Protein Electrophoresis 2: Serum IEP Fee Codes(s): 1; 31427-87 2; 56011-09 Clinical Pathology Blood Sme ar Reviewon 09-08-2024 Clinical Pathology Blood Smear Review Normal [facility] Comment on above: Result Comment: [facility] [address] [place] [address] Clinical Pathology Report Patient Name:PENNY ORDAZ:1960 (Age: 63)Gender:MTaken:09/08/2024Reported:09/12/2024Physician(s):Wendi Lai M.D. ([phone])Copy To: Rec. #:[id number]: #[id number] Final Pathologic Diagnosis PERIPHERAL BLOOD: - Normochromic, normocytic anemia with anisopoikilocytosis including rare schistocytes -Neutrophils with toxic granules - No significant abnormalities of platelets COMMENT: Moderate to severe anisopoikilocytosis, including elliptocytes, teardrop forms and schistocytes are noted. Hemolytic labs should be correlated to avoid intravascular hemolysis. Neutrophils show toxic granulation and vacuoles and this may be indicative of an ongoing infection. If other causes are excluded, features are most consistent with anemia associated with systemic illness. Clinical correlation is recommended. MICROSCOPIC: The red cells are decreased in number and are normochromic and normocytic with mild anisopoikilocytosis and increased polychromasia. Leukocytes are normal in number, consisting predominantly of segmented neutrophils with fewer numbers of lymphocytes and monocytes. Toxic changes are seen within neutrophils. Platelets are normal in morphology and appear normal in number. Report Electronically Signed Out rxd/09/12/2024Monico Ayala MD Interpretation [place] [address], License number: [id number]. Clinical History D64.9 BLOOD SMEAR EVALUATION CBC (09/08/2024 0308): WBC = 7.1 X10E9/L; HGB = 7.4 g/dL; HCT = 21.7%; MCV = 92 fL; PLT = 245 X10E9/L Specimen(s) Received Blood Smear Review Fee Codes(s): 1; 10999 DNA double strand Ab Qn (S)o n 09-08-2024 DOUBLE STRANDED DNA <1 Normal <5 [facility] Comment on above: Result Comment: Interpretation-------- <5 Negative 5-9 Indeterminate >9 Positive Performed By: #### Susie AARON, 07933-0 #### [facility] ([id number]) [address], [address] [place] [address] FLOW CYTOMETRYon 09-08-2024 FLOW CYTOMETRY SEE SEPARATE REPORT Normal [facility] Comment on above: Result Comment: REVI EWED BY Tito ALONZO M.D. Performed By: #### C BCA, PINR, BMP, 69639-3, 2284-8, 34262-9, LIVR #### [facility] ([id number]) [address], [address] [place] [address] Folate [Mass/Vol]on 09-08-19 25 FOLIC ACID 9.1 ng/mL Normal >5.8 [facility] Comment on above: Result Comment: NEW REFERENCE RANGE Performed By: #### C BCA, PINR, BMP, 49547-3, 2284-8, 29430-6, LIVR #### [facility] ([id number]) [address], [address] [place] [address] Haptoglobin Nephelometry [Ma ss/Vol]on 09-08-2024 HAPTOGLOBIN 70 mg/dL Normal 32-228 [facility] Comment on above: Performed By: #### Susie AARON, 26908-5 #### [facility] ([id number]) [address], [address] [place] [address] IMMUNOELECTROPHORESIS FOR TH ERAPY MONITORINGon 09-08-2024 FREE KELSI/LAMBD RATIO 1.80 High 0.26-1.[address] [facility] Comment on above: Performed By: #### Susie AARON, 22991-8 #### [facility] ([id number]) [address], [address] [place] [address] FREE KAPPA LT CHAINS 4.45 mg/dL High 0.33-1.[address] [facility] Comment on above: Performed By: #### Susie AARON, 22595-2 #### [facility] ([id number]) [address], [address] [place] [address] FREE LAMBDA LT CHAINS 2.47 mg/dL Normal 0.57-2.63 [facility] Comment on above: Performed By: #### Susie AARON, 69786-5 #### [facility] ([id number]) [address], [address] [place] [address] IgA [Mass/Vol] 269 mg/dL Normal 68-378 [facility] Comment on above: Performed By: #### Susie AARON 13654-0 #### [facility] ([id number]) [address], [address] [place] [address] IgG [Mass/Vol] 1236 mg/dL Normal 635-1741 [facility] Comment on above: Performed By: #### Susie AARON 08562-1 #### [facility] ([id number]) [address], [address] [place] [address] IgM [Mass/Vol] 126 mg/dL Normal 45-281 [facility] Comment on above: Performed By: #### Susie AARON, 70233-7 #### [facility] ([id number]) [address], [address] [place] [address] IMMUNE PROFILE INTERP SEE SEPARATE REPORT Normal [facility] Comment on above: Performed By: #### Susie AARON, 76411-2 #### [facility] ([id number]) [address], [address] [place] [address] LDH [Catalytic activity/Vol] on 09-08-2024 LDH 661 U/L High 100-235 [facility] Comment on above: Performed By: #### Susie AARON, 81214-8 #### [facility] ([id number]) [address], [address] [place] [address] LIVER PANELon 09-08-2024 Albumin [Mass/Vol] 3.7 g/dL Normal 3.2-5.3 [facility] Comment on above: Performed By: #### Susie AARON, 59746-8 #### [facility] ([id number]) [address], [address] [place] [address] ALP [Catalytic activity/Vol] 87 U/L Normal 39-130 [facility] Comment on above: Performed By: #### Susie AARON, 73399-7 #### [facility] ([id number]) [address], [address] [place] [address] ALT [Catalytic activity/Vol] 6 U/L Normal 0-40 [facility] Comment on above: Performed By: #### Susie AARON, 16898-7 #### [facility] ([id number]) [address], [address] [place] [address] AST [Catalytic activity/Vol] 24 U/L Normal 0-41 [facility] Comment on above: Performed By: #### Susie AARON, 14740-0 #### [facility] ([id number]) [address], [address] [place] [address] Bilirubin [Mass/Vol] 1.2 mg/dL Normal 0.3-1.[address] [facility] Comment on above: Performed By: #### Susie AARON, 11838-9 #### [facility] ([id number]) [address], [address] [place] [address] Bilirubin.direct [Mass/Vol] 0.3 mg/dL Normal 0.0-0.4 [facility] Comment on above: Performed By: #### Susie AARON, 29903-7 #### [facility] ([id number]) [address], [address] [place] [address] Protein [Mass/Vol] 6.8 g/dL Normal 6.0-8.0 [facility] Comment on above: Performed By: #### Susie AARON [id number] #### [facility] ([id number]) [address], [address] [place] [address] MAGNESIUMon 09-08-2024 Magnesium [Mass/Vol] 1.9 mg/dL Normal 1.8-2.[address] [facility] Comment on above: Performed By: #### C BCA, PINR, BMP, 56381-6, 2284-02, 50312-6, LIVR #### [facility] ([id number]) [address], [address] [place] [address] Natriuretic peptide B [Mass/ Vol]on 09-08-2024 Natriuretic peptide B (Bld) [Mass/Vol] 429 pg/mL High <100.0 [facility] Comment on above: Performed By: #### Susie AARON, 86160-2 #### [facility] ([id number]) [address], [address] [place] [address] Nuclear Ab IA Ql (S)on 09-08 BATOOL Screen w/reflex Positive Abnormal NEG [facility] Comment on above: Result Comment: Testing performed using multiplex flow immunoassay. Eleven different antigens associated with systemic autoimmune diseases (dsDNA,Sm,Sm/SHELLFISH DREDGE OPERATOR,SHELLFISH DREDGE OPERATOR,Chromatin, SSA,SSB,Lena-1,Scl70,Ribo P,Centromere B) are included in this screening test. Performed By: #### Susie AARON, 92638-0 #### [facility] ([id number]) [address], [address] [place] [address] PROTIME AND INRon 09-08-2024 INR Coag (PPP) [Relative time] 1.5 {INR} High 0.8-1.1 [facility] Comment on above: Performed By: #### C BCA, PINR, BMP, 74258-6, 2284-02, 70722-1, LIVR #### [facility] ([id number]) [address], [address] [place] [address] PT Coag (PPP) [Time] 17.0 s High 9.8-13.[address] [facility] Comment on above: Performed By: #### C BCA, PINR, BMP, 43455-9, 2284-8, 43404-1, LIVR #### [facility] ([id number]) [address] [place] [address], [address] [place] [address] comment (Bld) [Interp]on 09-08-2024 STAFF REVIEW NOTE Normal [facility] Comment on above: Result Comment: [facility] [address] [place] [address] Clinical Pathology Report Patient Name:PENNY ORDAZ:1960 (Age: 63)Gender:MTaken:09/08/2024Reported:09/12/2024Physician(s):Wendi Lai M.D. ([phone])Copy To: Rec. #:[id number]: #[id number] Final Pathologic Diagnosis PERIPHERAL BLOOD: - Normochromic, normocytic anemia with anisopoikilocytosis including rare schistocytes -Neutrophils with toxic granules - No significant abnormalities of platelets COMMENT: Moderate to severe anisopoikilocytosis, including elliptocytes, teardrop forms and schistocytes are noted. Hemolytic labs should be correlated to avoid intravascular hemolysis. Neutrophils show toxic granulation and vacuoles and this may be indicative of an ongoing infection. If other causes are excluded, features are most consistent with anemia associated with systemic illness. Clinical correlation is recommended. MICROSCOPIC: The red cells are decreased in number and are normochromic and normocytic with mild anisopoikilocytosis and increased polychromasia. Leukocytes are normal in number, consisting predominantly of segmented neutrophils with fewer numbers of lymphocytes and monocytes. Toxic changes are seen within neutrophils. Platelets are normal in morphology and appear normal in number. Report Electronically Signed Out rxd/09/12/2024Monico Ayala MD Interpretation [facility], [address] [place] [address], License number: [id number]. Clinical History D64.9 BLOOD SMEAR EVALUATION CBC (09/08/2024 0308): WBC = 7.1 X10E9/L; HGB = 7.4 g/dL; HCT = 21.7%; MCV = 92 fL; PLT = 245 X10E9/L Specimen(s) Received Blood Smear Review Fee Codes(s): 1; 92353 Performed By: #### C BCA, PINR, BMP, 05068-4, 2284-8, 18737-2, LIVR #### [facility] ([id number]) [address], [address] [place] [address] Ribonucleoprotein extractabl e nuclear IgG Qn (S)on 09-08-2024 SHELLFISH DREDGE OPERATOR ANTIBODY IGG <0.2 Normal <1.0 [facility] Comment on above: Performed By: #### C BC, TSHR, 2132-03 #### [facility] ([id number]) [address], [address] [place] [address] SCL-70 extractable nuclear A b Ql (S)on 09-08-2024 SCL 70 ANTIBODY <0.2 Normal <1.0 [facility] Comment on above: Performed By: #### Susie BC, TSHR, 2132-03 #### [facility] ([id number]) [address], [address] [place] [address] SERUM PROTEIN ELECTROPHORESI Son 09-08-2024 Albumin [Mass/Vol] 3.2 g/dL Low 3.4-5.3 [facility] Comment on above: Performed By: #### Susie AARON, 85900-3 #### [facility] ([id number]) [address], [address] [place] [address] ALPHA 1 GLOBULIN 0.4 g/dL Normal 0.1-0.4 [facility] Comment on above: Performed By: #### Susie AARON, 97100-1 #### [facility] ([id number]) [address], [address] [place] [address] ALPHA 2 GLOBULIN 0.7 g/dL Normal 0.4-1.1 [facility] Comment on above: Performed By: #### Susie AARON, 82014-2 #### [facility] ([id number]) [address], [address] [place] [address] BETA GLOBULIN 0.7 g/dL Normal 0.5-1.2 [facility] Comment on above: Performed By: #### Susie AARON, 57926-6 #### [facility] ([id number]) [address], [address] [place] [address] GAMMA GLOBULIN 1.4 g/dL Normal 0.5-1.6 [facility] Comment on above: Performed By: #### Susie AARON, 70818-5 #### [facility] ([id number]) [address], [address] [place] [address] PROT. ELECTROPHORESIS INTERP SEE SEPARATE REPORT Normal [facility] Comment on above: Performed By: #### Susie AARON, 38530-4 #### [facility] ([id number]) [address], [address] [place] [address] Protein [Mass/Vol] 6.3 g/dL Normal 6.0-8.0 [facility] Comment on above: Performed By: #### Susie AARON, 56016-9 #### [facility] ([id number]) [address], [address] [place] [address] Sjogrens syndrome-A extracta ble nuclear Ab Qn (S)on 09-08-2024 SSA ANTIBODY <0.2 Normal <1.0 [facility] Comment on above: Performed By: #### C BC, TSHR, 2132-03 #### [facility] ([id number]) [address], [address] [place] [address] Sjogrens syndrome-B extracta ble nuclear IgG Qn (S)on 09-08-2024 SSB ANTIBODY 4.3 AI High <1.0 [facility] Comment on above: Performed By: #### C BC, TSHR, 2132-03 #### [facility] ([id number]) [address], [address] [place] [address] Tavarez extractable nuclear Ab +Ribonucleoprotein extractable nuclear IgG Qn (S)on 09-08-2024 TAVAREZ/SHELLFISH DREDGE OPERATOR AB IGG <0.2 Normal <1.0 [facility] Comment on above: Performed By: #### C BC, TSHR, 2132-03 #### [facility] ([id number]) [address], [address] [place] [address] Tavarez extractable nuclear Ig G Qn (S)on 09-08-2024 ANTI-TAVAREZ AB IGG <0.2 Normal <1.0 [facility] Comment on above: Performed By: #### C BC, TSHR, 2132-03 #### [facility] ([id number]) [address], [address] [place] [address] Surgical Pathologyon 025 Surgical Pathology Normal [facility] Comment on above: Result Comment: [facility] [address] [place], [place] [address] Flow Cytometry Patient Name:PENNY ORDAZAccession #:[id number]. Rec. #:[id number]:[facility] HospitalTaken:09/08/2024DOB:1960 (Age: 63)Location:[facility] GEN 6 ACUTE F252Afhbytzw:09/08/2024Gender: Alice. Type:ToledoReported:Priority:RBilling #:[id number] Class:TTH Special Procedure OnlyPhysician(s): Jose Umanzor MD Chang Xia, M.D. Emile Klada, MD Copy To: Specimen(s) Received Blood for Flowcytometry Status: Signed Out Interpretation Normal peripheral blood immunophenotyping study. 3% circulating myeloblasts and no monotypic B-cell population. CBC and flow cytometry results: WBC: 7.0 x 109/L Lymphocytes: 0.6 x 109/L Blasts: 3% circulating myeloblasts on CD45/side scatter analysis or CD34 staining. B-cells: No monotypic population identified; normal expression pattern of CD19, surface kappa and surface lambda. T-cells/NK-cells: Reactive slightly elevated CD/CD8 ratio (5: 1 -normal is 1???3: 1). No aberrant phenotype by CD3 and CD16. A Lopez stained peripheral blood smear is reviewed (see comment). Immunophenotyping antibodies tested: CD3, CD4, CD7, CD8, CD13, CD16, CD19, CD33, CD34, CD45, CD117, CD123, CD138, Mabie, and Lambda. Immunophenotyping Comment: Immunophenotyping has been used in this diagnostic evaluation. This test was developed and its performance characteristics determined by the [facility] Clinical Laboratories Department. It has not been cleared or approved by the U.S. Food and Drug Administration. The FDA has determined that such clearance or approval is not necessary. This test is used for clinical purposes. It should not be regarded as investigational or for research. This laboratory is certified under the Clinical Laboratory Improvement Amendments of 1988 ( CLIA ) as qualified to perform high-complexity clinical testing. Results-Comments The CBC and smear review reveals a normal leukocyte count with occasional blasts (3% by flow) and borderline left shift, marked normocytic anemia with marked anisocytosis, mild teardrop RBC and no n RBCs, and normal platelets with occasional giant forms. Flow cytometric immunophenotyping confirms the myeloid lineage of the blasts. The marrow study reveals primary myelofibrosis (see S25???8464). Electronically Signed Out mls/09/10/2024 Arcenio Alonzo MD TOTAL PROTEINon 09-08-2024 Protein [Mass/Vol] 6.6 g/dL Normal 6.0-8.0 [facility] Comment on above: Performed By: #### C , 70016-6 #### [facility] ([id number]) [address], [address] [place] [address] CBC AND AUTO DIFFon 09-07-19 25 Band form neutrophils/100 WBC (Bld) 4.0 % Normal [facility] Comment on above: Performed By: #### C MP, CBCA, PINR, 11899-5 #### [facility] ([id number]) [address] [place] [address] #### 4679-7, FEPR, 6-4 #### [facility] ([id number]) [address], [address] [place] [address] Erythrocyte distribution width (RBC) [Ratio] 24.2 % High 11.5-15.0 [facility] Comment on above: Performed By: #### C MP, CBCA, PINR, 12429-2 #### [facility] ([id number]) [address] [place] [address] #### 4679-7, FEPR, 6-4 #### [facility] ([id number]) [address], [address] [place] [address] Hematocrit (Bld) [Volume fraction] 16.4 % Low 39-49 [facility] Comment on above: Performed By: #### C MP, CBCA, PINR, 84159-4 #### [facility] ([id number]) [address] [place] [address] #### 4679-7, FEPR, 6-4 #### [facility] ([id number]) [address], [address] [place] [address] Hemoglobin (Bld) [Mass/Vol] 5.3 g/dL Critically low 13.0-17.0 [facility] Comment on above: Performed By: #### C MP, CBCA, PINR, 40007-7 #### [facility] ([id number]) [address] [place] [address] #### 4679-7, FEPR, 2275-4 #### [facility] ([id number]) [address], [address] [place] [address] Lymphocytes (Bld) [#/Vol] 0.6 10*3/uL Low 1.0-3.5 [facility] Comment on above: Performed By: #### C MP, CBCA, PINR, 68608-2 #### [facility] ([id number]) [address] [place] [address] #### 4679-7, FEPR, 2276-4 #### [facility] ([id number]) [address] [facility], [address] [place] [address] Lymphocytes/100 WBC (Bld) 9.0 % Normal [facility] Comment on above: Performed By: #### C MP, CBCA, PINR, 41435-0 #### [facility] ([id number]) [address] [place] [address] #### 4679-7, FEPR, 2276-4 #### [facility] ([id number]) [facility], [address] [place] [address] MCH (RBC) [Entitic mass] 31.3 pg Normal 27-34 [facility] Comment on above: Performed By: #### C MP, CBCA, PINR, 70075-4 #### [facility] ([id number]) [address] [place] [address] #### 4679-7, FEPR, 2276-4 #### [facility] ([id number]) [address] [address] [place] [address] MCHC (RBC) [Mass/Vol] 32.2 g/dL Normal 32-36 [facility] Comment on above: Performed By: #### C MP, CBCA, PINR, 27813-8 #### [facility] ([id number]) [address] [place] [address] #### 4679-7, FEPR, 2276-4 #### [facility] ([id number]) [address], [address] [place] [address] MCV (RBC) [Entitic vol] 97 fL Normal 80-100 [facility] Comment on above: Performed By: #### C MP, CBCA, PINR, 74046-0 #### [facility] ([id number]) [address] [place] [address] #### 4679-7, FEPR, 2276-4 #### [facility] ([id number]) [address], [address] [place] [address] Monocytes (Bld) [#/Vol] 0.5 10*3/uL Normal 0-0.9 [facility] Comment on above: Performed By: #### C MP, CBCA, PINR, 52017-5 #### [facility] ([id number]) [address] [place] [address] #### 4679-7, FEPR, 2276-4 #### [facility] ([id number]) [address], [address] [place] [address] Monocytes/100 WBC (Bld) 7.0 % Normal [facility] Comment on above: Performed By: #### C MP, CBCA, PINR, 83378-5 #### [facility] ([id number]) [address] [place] [address] #### 4679-7, FEPR, 2276-4 #### [facility] ([id number]) [address], [address] [place] [address] MYELOCYTE 1.0 % Normal [facility] Comment on above: Performed By: #### C MP, CBCA, PINR, 79450-7 #### [facility] ([id number]) [address] [place] [address] #### 4679-7, FEPR, 2276-4 #### [facility] ([id number]) [address], [address] [place] [address] Neutrophils (Bld) [#/Vol] 6.0 10*3/uL Normal 1.5-6.6 [facility] Comment on above: Performed By: #### C MP, CBCA, PINR, 48292-7 #### [facility] ([id number]) [address] [place] [address] #### 4679-7, FEPR, 6-4 #### [facility] ([id number]) [address], [address] [place] [address] Platelet mean volume (Bld) [Entitic vol] 9.2 fL Normal 7-12 [facility] Comment on above: Performed By: #### C MP, CBCA, PINR, 33450-2 #### [facility] ([id number]) [address] [place] [address] #### 4679-7, FEPR, 2276-4 #### [facility] ([id number]) [address], [address] [place] [address] Platelets (Bld) [#/Vol] 349 10*3/uL Normal 150-450 [facility] Comment on above: Performed By: #### C MP, CBCA, PINR, 30872-3 #### [facility] ([id number]) [address] [place] [address] #### 4679-7, FEPR, 2276-4 #### [facility] ([id number]) [address], [address] [place] [address] RBC COUNT 1.69 X10E12/L Low 4.10-5.70 [facility] Comment on above: Performed By: #### C MP, CBCA, PINR, 15960-3 #### [facility] ([id number]) [address] [place] [address] #### 4679-7, FEPR, 2276-4 #### [facility] ([id number]) [address], [address] [place] [address] RBC morphology finding Nom (Bld) REVIEWED Normal [facility] Comment on above: Performed By: #### C MP, CBCA, PINR, 01306-5 #### [facility] ([id number]) [address] [place] [address] #### 4679-7, FEPR, 2276-4 #### [facility] ([id number]) [address], [address] [place] [address] SEG NEUTROPHIL 79.0 % Normal [facility] Comment on above: Performed By: #### C MP, CBCA, PINR, 96167-2 #### [facility] ([id number]) [address] [place] [address] #### 4679-7, FEPR, 2276-4 #### [facility] ([id number]) [address], [address] [place] [address] WBC (Bld) [#/Vol] 7.2 10*3/uL Normal 4.0-11.0 [facility] Comment on above: Performed By: #### C MP, CBCA, PINR, 37805-8 #### [facility] ([id number]) [address] [place] [address] #### 4679-7, FEPR, 2276-4 #### [facility] ([id number]) [address], [address] [place] [address] COMPREHENSIVE METABOLIC PANE John Paul 09-07-2024 Albumin [Mass/Vol] 3.5 g/dL Normal 3.2-5.3 [facility] Comment on above: Performed By: #### C MP, CBCA, PINR, 86784-8 #### [facility] ([id number]) [address] [place] [address] #### 4679-7, FEPR, 2276-4 #### [facility] ([id number]) [address] [place] [address] ALP [Catalytic activity/Vol] 84 U/L Normal 39-130 [facility] Comment on above: Performed By: #### C MP, CBCA, PINR, 09832-9 #### [facility] ([id number]) [address] [place] [address] #### 4679-7, FEPR, 2276-4 #### [facility] ([id number]) [address] [place] [address] ALT [Catalytic activity/Vol] 12 U/L Normal 0-40 [facility] Comment on above: Performed By: #### C MP, CBCA, PINR, 13098-7 #### [facility] ([id number]) [address] [place] [address] 98160 #### 4679-7, FEPR, 2276-4 #### [facility] ([id number]) [address] [place] [address] Anion gap [Moles/Vol] 8 mmol/L Normal 5-15 [facility] Comment on above: Performed By: #### C MP, CBCA, PINR, 94263-4 #### [facility] ([id number]) [address] [place] [address]1681 #### 4679-7, FEPR, 2276-4 #### [facility] ([id number]) [address], [address] [place] [address] AST [Catalytic activity/Vol] 22 U/L Normal 0-41 [facility] Comment on above: Performed By: #### C MP, CBCA, PINR, 56392-9 #### [facility] ([id number]) [address] [place] [address] #### 4679-7, FEPR, 2276-4 #### [facility] ([id number]) [address], [address] [place] [address] Bilirubin [Mass/Vol] 0.9 mg/dL Normal 0.3-1.2 [facility] Comment on above: Performed By: #### C MP, CBCA, PINR, 24785-3 #### [facility] ([id number]) [address] [place] [address]706 #### 4679-7, FEPR, 2276-4 #### [facility] ([id number]) [address] [place] [address] Calcium [Mass/Vol] 8.1 mg/dL Low 8.5-10.5 [facility] Comment on above: Performed By: #### C MP, CBCA, PINR, 98178-5 #### [facility] ([id number]) [address] [place] [address] #### 4679-7, FEPR, 2276-4 #### [facility] ([id number]) [address] [place] [address] Chloride [Moles/Vol] 104 mmol/L Normal 98-109 [facility] Comment on above: Performed By: #### C MP, CBCA, PINR, 00202-8 #### [facility] ([id number]) [address] [place] [address]7797 #### 4679-7, FEPR, 2276-4 #### [facility] ([id number]) [address] [place] [address] CO2 [Moles/Vol] 21 mmol/L Low 22-32 [facility] Comment on above: Performed By: #### C MP, CBCA, PINR, 84615-6 #### [facility] ([id number]) [address] [place] [address] #### 4679-7, FEPR, 2276-4 #### [facility] ([id number]) [address] [place] [address] Creatinine [Mass/Vol] 0.71 mg/dL Normal 0.70-1.20 [facility] Comment on above: Result Comment: METH OD TRACEABLE TO IDMS STANDARD Performed By: #### C MP, CBCA, PINR, 96267-1 #### [facility] ([id number]) [address] [place] [address]36 #### 4679-7, FEPR, 2276-4 #### [facility] ([id number]) [address], [address] [place] [address] eGFR (CKD-EPI) NON-RACE DEPENDENT >90 Normal >59 [facility] Comment on above: Result Comment: Reported eGFR is based on the CKD-EPI 2020 equation that does not use a race coefficient. Performed By: #### C MP, CBCA, PINR, 49361-5 #### [facility] ([id number]) [address] [place] [address] 16092 #### 4679-7, FEPR, 2276-4 #### [facility] ([id number]) [address] [place] [address] Glucose [Mass/Vol] 104 mg/dL High 65-99 [facility] Comment on above: Performed By: #### C MP, CBCA, PINR, 49076-4 #### [facility] ([id number]) [address] [place] [address] 02515 #### 4679-7, FEPR, 2276-4 #### [facility] ([id number]) [address] [place] [address] Potassium [Moles/Vol] 4.1 mmol/L Normal 3.5-5.0 [facility] Comment on above: Performed By: #### C MP, CBCA, PINR, 36602-1 #### [facility] ([id number]) [address] [place] [address]25 #### 4679-7, FEPR, 2276-4 #### [facility] ([id number]) [address] [place] [address] Protein [Mass/Vol] 6.9 g/dL Normal 6.0-8.0 [facility] Comment on above: Performed By: #### C MP, CBCA, PINR, 37454-2 #### [facility] ([id number]) [address] [place] [address] 8[address]11 #### 4679-7, FEPR, 6-4 #### [facility] ([id number]) [address] [place] [address] Sodium [Moles/Vol] 133 mmol/L Low 134-146 [facility] Comment on above: Performed By: #### C MP, CBCA, PINR, 26881-2 #### [facility] ([id number]) [address] [place] [address]202 #### 4679-7, FEPR, 2276-4 #### [facility] ([id number]) [address] [place] [address] Urea nitrogen [Mass/Vol] 12 mg/dL Normal 5-27 [facility] Comment on above: Performed By: #### C MP, CBCA, PINR, 73627-0 #### [facility] ([id number]) [address] [facility] [place] [address] #### 4679-7, FEPR, 2276-4 #### [facility] ([id number]) [address] [place] [address] CT ABDOMEN AND PELVIS W CONT on 09-07-2024 CT ABDOMEN AND PELVIS W CONT CT ABDOMEN AND PELVIS W CONT CLINICAL INFORMATION: Acute nonlocalized abdominal pain, anemia. TECHNIQUE: CT abdomen and pelvis with intravenous contrast. All CT scans at this facility use dose modulation, iterative reconstruction, and/or weight based dosing when appropriate to reduce radiation dose to as low as reasonably achievable. COMPARISON: None. FINDINGS LOWER CHEST: Moderate right pleural effusion. Coronary calcifications. HEPATOBILIARY: Liver and gallbladder unremarkable. No biliary dilation. PANCREAS: Pancreas unremarkable. No pancreatic ductal dilation. SPLEEN: Enlarged spleen measures 16.3 cm AP dimension. ADRENAL GLANDS: Within normal limits. KIDNEYS, URETERS, AND BLADDER: Kidneys are unremarkable. No collecting system dilation. Urinary bladder is unremarkable. GI TRACT AND PERITONEUM: Small and large bowel are normal in caliber. Trace ascites. No free air. VASCULATURE: Abdominal aorta is nonaneurysmal. Aortoiliac calcifications present. Portal, splenic, superior mesenteric veins patent. Mild nonspecific periportal edema. LYMPH NODES: Multiple enlarged retroperitoneal/periaorti c lymph nodes measure up to 1.3 cm short axis. Multiple enlarged lymph nodes along the right iliac chain and inguinal region measure up to 1.8 cm. REPRODUCTIVE ORGANS: Prostate unremarkable. MSK: Unremarkable IMPRESSION: * Bulky retroperitoneal, right iliac, and inguinal lymphadenopathy with splenomegaly worrisome for hematologic malignancy. Correlate with laboratory markers. Consider tissue sampling. * Mild nonspecific periportal edema, trace ascites, right pleural effusion. Approved by Resident Jhonny East DO on 09/07/2024 10:00 AM Conor Lake MD have personally reviewed the image(s) and agree with and/or edited the report Finalized by Conor Franklin MD on 09/07/2024 10:11 AM Normal [facility] FERRITINon 09-07-2024 Ferritin [Mass/Vol] 292 ng/mL Normal 24-336 [facility] Comment on above: Performed By: #### C MP, CBCA, PINR, 77745-8 #### [facility] ([id number]) [address] [place] [id number] #### [id number], FEPR, 2276-4 #### [facility] ([id number]) [address], [address] [place] [address] HEMOGLOBINon 09-07-2024 Hemoglobin (Bld) [Mass/Vol] 6.4 g/dL Critically low 13.0-17.0 [facility] Comment on above: Performed By: #### C MP, CBCA, PINR, 99685-4 #### [facility] ([id number]) [address] [place] [address] #### 4679-7, FEPR, 2276-4 #### [facility] ([id number]) [address], [address] [place] [address] HGBon 09-07-2024 Hematocrit (Bld) [Volume fraction] 21.7 % Low 39-49 [facility] Comment on above: Performed By: #### C MP, CBCA, PINR, 73885-2 #### [facility] ([id number]) [address] [place] [address] #### 4679-7, FEPR, 2276-4 #### [facility] ([id number]) [address], [address] [place] [address] Hemoglobin (Bld) [Mass/Vol] 7.3 g/dL Low 13.0-17.0 [facility] Comment on above: Performed By: #### C MP, CBCA, PINR, 58858-8 #### [facility] ([id number]) [address] [place] [address] #### 4679-7, FEPR, 6-4 #### [facility] ([id number]) [address], [address] [place] [address] Hematocrit Auto (Bld) [Volum e fraction]on 09-07-2024 Hematocrit (Bld) [Volume fraction] 19.2 % Low 39-49 [facility] Comment on above: Performed By: #### 4 544-3, 718-7 #### [facility] ([id number]) [address] [place] [address] IRON PROFILEon 09-07-2024 Iron [Mass/Vol] 112 ug/dL Normal 50-212 [facility] Comment on above: Performed By: #### C MP, CBCA, PINR, 43431-5 #### [facility] ([id number]) [address] [place] [address] #### 4679-7, FEPR, 6-4 #### [facility] ([id number]) [address], [address] [place] [address] IRON BINDING 294 ug/dL Normal 250-425 [facility] Comment on above: Performed By: #### C MP, CBCA, PINR, 19496-3 #### [facility] ([id number]) [address] [place] [address] #### 4679-7, FEPR, 2276-4 #### [facility] ([id number]) [address], [address] [place] [address] IRON SATURATION 38 % SATURATION Normal 20-50 [facility] Comment on above: Performed By: #### C MP, CBCA, PINR, 80886-9 #### [facility] ([id number]) [address] [place] [address] #### 4679-7, FEPR, 2276-4 #### [facility] ([id number]) [address], [address] [place] [address] PROTIME AND INRon 09-07-2024 INR Coag (PPP) [Relative time] 1.5 {INR} High 0.8-1.1 [facility] Comment on above: Performed By: #### C MP, CBCA, PINR, 19033-5 #### [facility] ([id number]) [address] [place] [address] #### 4679-7, FEPR, 2276-4 #### [facility] ([id number]) [address], [address] [place] [address] PT Coag (PPP) [Time] 17.0 s High 9.8-13.2 [facility] Comment on above: Result Comment: NEW REFER[place] Performed By: #### C MP, CBCA, PINR, 39800-2 #### [facility] ([id number]) [address] [place] [address] #### 4679-7, FEPR, 6-4 #### [facility] ([id number]) [address], [address] [place] [address] Reticulocytes/100 RBC (Bld)o n 09-07-2024 RETICULOCYTE COUNT 2.5 % High 0.4-2.2 [facility] Comment on above: Performed By: #### C MP, CBCA, PINR, 75438-2 #### [facility] ([id number]) [address] [place] [address] #### 4679-7, FEPR, 2276-4 #### [facility] ([id number]) [address], [address] [place] [address] XR CHEST 1 VWon 09-07-2024 XR CHEST 1 VW XR CHEST 1 VW CLINICAL INFORMATION: Cough. TECHNIQUE: Chest radiograph, single AP view. COMPARISON: CT abdomen and pelvis 09/07/2024. FINDINGS Cardiomediastinal silhouette is within normal limits. No pneumothorax. Moderate pleural effusion. No focal airspace disease. IMPRESSION: * Moderate right pleural effusion with underlying opacity which could represent atelectasis.. Approved by Resident Jhonny East DO on 09/07/2024 10:09 AM I, Tamela Escalante MD have personally reviewed the image(s) and agree with and/or edited the report Finalized by Tamela Escalante MD on 09/07/2024 10:14 AM Normal [facility] aPTT Coag (PPP) [Time]on aPTT Coag (Bld) [Time] 33 s Normal 26-37 [facility] Comment on above: Result Comment: NEW REFER[place] Performed By: #### C MP, CBCA, PINR, 94223-4 #### [facility] ([id number]) [address] [place] [address], [place] [address] #### 4679-7, FEPR, 2276-4 #### [facility] ([id number]) [address], [address] [place] [address] COMPLETE BLOOD COUNTon 09-06 Erythrocyte distribution width (RBC) [Ratio] 24.0 % High 11.5-15.0 [facility] Comment on above: Performed By: #### C BC, TSHR, 9 #### [facility] ([id number]) [address], [address] [place] [address] Hematocrit (Bld) [Volume fraction] 17.4 % Low 39-49 [facility] Comment on above: Performed By: #### C BC, TSHR, 9 #### [facility] ([id number]) [address], [address] [place] [address] Hemoglobin (Bld) [Mass/Vol] 5.4 g/dL Critically low 13.0-17.0 [facility] Comment on above: Performed By: #### Susie WAKEFIELD TSHR, 2132-03 #### [facility] ([id number]) [address], [address] [place] [address] MCH (RBC) [Entitic mass] 31.2 pg Normal 27-34 [facility] Comment on above: Performed By: #### Susie WAKEFIELD, TSHR, 2132-03 #### [facility] ([id number]) [address], [address] [place] [address] MCHC (RBC) [Mass/Vol] 30.9 g/dL Low 32-36 [facility] Comment on above: Performed By: #### Susie WAKEFIELD TSHR, 2132-03 #### [facility] ([id number]) [address], [address] [place] [address] MCV (RBC) [Entitic vol] 101 fL High 80-100 [facility] Comment on above: Performed By: #### Susie WAKEFIELD TSHR, 2132-03 #### [facility] ([id number]) [address], [address] [place] [address] Platelet mean volume (Bld) [Entitic vol] 9.9 fL Normal 7-12 [facility] Comment on above: Performed By: #### Susie WAKEFIELD TSHR, 2132-03 #### [facility] ([id number]) [address], [address] [place] [address] Platelets (Bld) [#/Vol] 356 10*3/uL Normal 150-450 [facility] Comment on above: Performed By: #### Susie WAKEFIELD, TSHR, 2132-03 #### [facility] ([id number]) [address], [address] [place] [address] RBC COUNT 1.73 X10E12/L Low 4.10-5.70 [facility] Comment on above: Performed By: #### Susie WAKEFIELD TSHR, 2132-03 #### [facility] ([id number]) [address], [address] [place] [address] WBC (Bld) [#/Vol] 6.2 10*3/uL Normal 4.0-11.0 [facility] Comment on above: Performed By: #### Susie WAKEFIELD TSHR, 2132-03 #### [facility] ([id number]) [address], [address] [place] [address] TSH WITH REFLEXon 09-06-2024 TSH 3.61 uIU/mL Normal 0.49-4.67 [facility] Comment on above: Performed By: #### Susie WAKEFIELD TSHR, 2132-03 #### [facility] ([id number]) [address], [address] [place] [address] VITAMIN B12on 09-06-2024 Cobalamin (Vitamin B12) [Mass/Vol] 547 pg/mL Normal 180-914 [facility] Comment on above: Performed By: #### Susie WAKEFIELD, TSHR, 2132-03 #### [facility] ([id number]) [address], [address] [place] [address] COMPREHENSIVE METABOLIC PANE John Paul 06-25-2024 Albumin [Mass/Vol] 4.3 g/dL Normal 3.2-5.3 [facility] Comment on above: Performed By: #### Susie AARON, 63795-8 #### [facility] ([id number]) [address], [address] [place] [address] ALP [Catalytic activity/Vol] 81 U/L Normal 39-130 [facility] Comment on above: Performed By: #### Susie AARON, 55383-5 #### [facility] ([id number]) [address] [place] [address] ALT [Catalytic activity/Vol] 15 U/L Normal 0-40 [facility] Comment on above: Performed By: #### Susie AARON, 33088-0 #### [facility] ([id number]) [address] [place] [address] Anion gap [Moles/Vol] 8 mmol/L Normal 5-15 [facility] Comment on above: Performed By: #### Susie AARON, 53104-3 #### [facility] ([id number]) [address], [address] [place] [address] AST [Catalytic activity/Vol] 19 U/L Normal 0-41 [facility] Comment on above: Performed By: #### Susie AARON, 27186-5 #### [facility] ([id number]) [address] [place] [address] Bilirubin [Mass/Vol] 1.1 mg/dL Normal 0.3-1.[address] [facility] Comment on above: Performed By: #### Susie AARON, 31490-6 #### [facility] ([id number]) [address] [place] [address] Calcium [Mass/Vol] 9.1 mg/dL Normal 8.5-10.5 [facility] Comment on above: Performed By: #### Susie AARON, 28121-1 #### [facility] ([id number]) [address], [address] [place] [address] Chloride [Moles/Vol] 100 mmol/L Normal 98-[address] [facility] Comment on above: Performed By: #### Susie AARON, 92286-1 #### [facility] ([id number]) [address] [place] [address] CO2 [Moles/Vol] 26 mmol/L Normal 22-32 [facility] Comment on above: Performed By: #### Susie AARON, 22739-9 #### [facility] ([id number]) [address] [address] [place] [address] Creatinine [Mass/Vol] 0.66 mg/dL Normal 0.60-1.30 [facility] Comment on above: Result Comment: METH OD TRACEABLE TO IDMS STANDARD Performed By: #### Susie AARON, 72452-8 #### [facility] ([id number]) [address] [address] [place] [address] eGFR (CKD-EPI) NON-RACE DEPENDENT >90 Normal >59 [facility] Comment on above: Result Comment: Reported eGFR is based on the CKD-EPI 2020 equation that does not use a race coefficient. Performed By: #### Susie AARON, 15960-8 #### [facility] ([id number]) [address] [address] [place] [address] Glucose [Mass/Vol] 98 mg/dL Normal 65-99 [facility] Comment on above: Performed By: #### Susie AARON, 45146-0 #### [facility] ([id number]) [address] [address] [place] [address] Potassium [Moles/Vol] 5.0 mmol/L Normal 3.5-5.0 [facility] Comment on above: Performed By: #### Susie AARON 22721-7 #### [facility] ([id number]) [address] [address] [place] [address] Protein [Mass/Vol] 7.6 g/dL Normal 6.0-8.0 [facility] Comment on above: Performed By: #### Susie AARON 74189-9 #### [facility] ([id number]) [address] [address] [place] [address] Sodium [Moles/Vol] 134 mmol/L Normal 134-146 [facility] Comment on above: Performed By: #### Susie AARON 95215-0 #### [facility] ([id number]) [address], [address] [place] [address] Urea nitrogen [Mass/Vol] 10 mg/dL Normal 5-27 [facility] Comment on above: Performed By: #### Susie AARON, 48743-1 #### [facility] ([id number]) [address], [address] [place] [address] Lipid 1996 panelon 4 Cholesterol [Mass/Vol] 74 mg/dL Low 150-200 Pr [facility] Comment on above: Performed By: #### Susie AARON, 21499-4 #### [facility] ([id number]) [address], [address] [place] [address] Cholesterol in HDL [Mass/Vol] 18 mg/dL Low >39 [facility] Comment on above: Result Comment: HDL <40 mg/dL - High Risk HDL > or = 40mg/dL- Desirable HDL >60 mg/dL - Negative Risk Performed By: #### Susie AARON, 46097-1 #### [facility] ([id number]) [address], [address] [place] [address] Cholesterol in LDL [Mass/Vol] 43 mg/dL Normal <130 [facility] Comment on above: Result Comment: LDL <100 mg/dL - Desirable LDL >160 mg/dL - High Risk Performed By: #### Susie AARON, 56802-0 #### [facility] ([id number]) [address], [address] [place] [address] Cholesterol in VLDL [Mass/Vol] 13 mg/dL Normal 0-30 [facility] Comment on above: Performed By: #### C AGNIESZKA, 29150-1 #### [facility] ([id number]) [address], [address] [place] [address] CHOLESTEROL:HDL 4.1 Normal 1.0-5.0 [facility] Comment on above: Performed By: #### C AGNIESZKA, 92434-7 #### [facility] ([id number]) [address], [address] [place] [address] Triglyceride [Mass/Vol] 64 mg/dL Normal 27-150 [facility] Comment on above: Performed By: #### C AGNIESZKA, 83914-6 #### [facility] ([id number]) [address] [place] [address] CBC (INCLUDES DIFF/PLT)on Basophils (Bld) [#/Vol] 0 10*3/uL Normal 0-200 [facility] Comment on above: Performed By: #### 6 399 #### [facility] [place] [address] Shipping Support Clerk: Horace Vital MD Basophils/100 WBC (Bld) 0 % Normal [facility] Comment on above: Performed By: #### 6 399 #### [facility] [place] [address] Shipping Support Clerk: Horace Vital MD COMMENT(S) Normal [facility] Comment on above: Result Comment: The smear has been manually reviewed and the manual differential has been reported. Performed By: #### 6 399 #### [facility] [place] [address] Shipping Support Clerk: Horace Vital MD Eosinophils (Bld) [#/Vol] 0.132 10*3/uL Normal 15-500 [facility] Comment on above: Performed By: #### 6 399 #### [facility] [place] [address] Shipping Support Clerk: Horace Vital MD Eosinophils/100 WBC (Bld) 3 % Normal [facility] Comment on above: Performed By: #### 6 399 #### [facility] of [place] [address] Shipping Support Clerk: Horace Vital MD Erythrocyte distribution width (RBC) [Ratio] 14.6 % Normal 11.0-15.0 [facility] Comment on above: Performed By: #### 6 399 #### [facility] [place] [address] Shipping Support Clerk: Horace Vital MD Hematocrit (Bld) [Volume fraction] 40.2 % Normal 38.5-50.0 [facility] Comment on above: Performed By: #### 6 399 #### [facility] of [place] [address] Shipping Support Clerk: Horace Vital MD Hemoglobin (Bld) [Mass/Vol] 13.6 g/dL Normal 13.2-17.1 [facility] Comment on above: Performed By: #### 6 399 #### [facility] of [place] [address] Shipping Support Clerk: Horace Vital MD Lymphocytes (Bld) [#/Vol] 1.276 10*3/uL Normal 850-3900 [facility] Comment on above: Performed By: #### 6 399 #### [facility] of [place] [address] Shipping Support Clerk: Horace Vital MD Lymphocytes/100 WBC (Bld) 29 % Normal [facility] Comment on above: Performed By: #### 6 399 #### [facility] [place] [address] Shipping Support Clerk: Horace Vital MD MCH (RBC) [Entitic mass] 32.7 pg Normal 27.0-33.0 [facility] Comment on above: Performed By: #### 6 399 #### [facility] of [place] [phone] Shipping Support Clerk: Horace Vital MD MCHC (RBC) [Mass/Vol] 33.8 g/dL Normal 32.0-36.[address] [facility] Comment on above: Performed By: #### 6 399 #### [facility] [place] [address] Shipping Support Clerk: Horace Vital MD MCV (RBC) [Entitic vol] 96.6 fL Normal 80.0-100.0 [facility] Comment on above: Performed By: #### 6 399 #### [facility] [place] [address] Shipping Support Clerk: Horace Vital MD Monocytes (Bld) [#/Vol] 0.748 10*3/uL Normal 200-950 [facility] Comment on above: Performed By: #### 6 399 #### [facility] [place] [address] Shipping Support Clerk: Horace Vital MD Monocytes/100 WBC (Bld) 17 % Normal [facility] Comment on above: Performed By: #### 6 399 #### [facility] [place] [address] Shipping Support Clerk: Horace Vital MD Neutrophils (Bld) [#/Vol] 2.244 10*3/uL Normal 0011-4691 [facility] Comment on above: Performed By: #### 6 399 #### [facility] [place] [address] Shipping Support Clerk: Horace Vital MD Neutrophils/100 WBC (Bld) 51 % Normal [facility] Comment on above: Performed By: #### 6 399 #### [facility] [place] [address] Shipping Support Clerk: Horace Vital MD Platelet mean volume (Bld) [Entitic vol] 11.6 fL Normal 7.5-12.5 [facility] Comment on above: Performed By: #### 6 399 #### [facility] of [address], [address] [place] [address] Shipping Support Clerk: Horace Vital MD Platelets (Bld) [#/Vol] 230 10*3/uL Normal 140-400 [facility] Comment on above: Performed By: #### 6 399 #### [facility] [address], [address] [place] [address] Shipping Support Clerk: Horace Vital MD RBC (Bld) [#/Vol] 4.16 10*6/uL Low 4.20-5.80 [facility] Comment on above: Performed By: #### 6 399 #### [facility] [place] [address] Shipping Support Clerk: Horace Vital MD WBC (Bld) [#/Vol] 4.4 10*3/uL Normal 3.8-10.8 [facility] Comment on above: Performed By: #### 6 399 #### [facility] [place] [address] Shipping Support Clerk: Horace Vital MD TIBIA FIBULA RIGHT 018 TIBIA FIBULA RIGHT [facility] [address] [place], [place] [address] P atient Name: PENNY ORDAZ : 1960Sex: MAge: Race: WhiteMRN: [id number]. Location: 84Patient Status: Date: 12/14/2017 9:00:00 AMCompleted Date: 12/14/2017 09:01 AMRequesting Provider: RASHEEDA GORDILLO Attending Provider: Report Copy To: Signs & Symptoms: M96.671 Fx tib/fib fol insrt ortho implnt/prosth/bone plt, right leg S95Weovxnp: AthenaComments: , , Views (X-RAY, TIBIA AND FIBULA): AP, Lateral , , , Ordering Provider - RASHEEDA GORDILLO , Exam: TIBIA FIBULA RIGHTAccession #: [id number] ======TIBIA FIBULA RIGHT 12/14/2017 9:01 AM EDT SIGNS AND SYMPTOMS: M96.671 Fx tib/fib fol insrt ortho implnt/prosth/bone plt, right leg I10 TECHNOLOGIST COMMENTS: ortho check right tibia complains of pain in right lower leg surgery 07/14/17 QUESTION FOR THE RADIOLOGIST: , , Views (X-RAY, TIBIA AND FIBULA): AP, Lateral , , , Ordering Provider - RASHEEDA GORDILLO , PROTOCOL: AP(PA) and Lateral views were obtained. COMPARISON: October 19, 2017 FINDINGS: Soft tissues:Unchanged Bones:Tibial jil traversing distal midshaft fracture which is healing as well as 2 AP screws fixing posterior tibial malleolar fracture which is also healingProximal fibular fracture shows healing without hardware Joints:Minor arthritis along knee and ankle IMPRESSION: Healing leg injuries in satisfactory alignment but with tibial fracture still conspicuous Electronically signed by:Lauren Clemente. Transcribed by: [email or web address], User Resident: Electronically Signed by: LAUREN CLEMENTE @ 12/14/2017 12:06 PM Normal [facility] Comment on above: Order Comment: No: D o not add to previous draw ANKLE RIGHT 3 [facility] 10-20-[address] [address] [place] [address] P atient Name: PENNY ORDAZ : 1960Sex: MAge: Race: WhiteMRN: [id number]. Location: 84Patient Status: Date: 10/19/2017 9:55:00 AMCompleted Date: 10/19/2017 10:07 AMRequesting Provider: RASHEEDA GORDILLO Attending Provider: Report Copy To: Signs & Symptoms: S82.391D Oth fx lower end of r tibia, subs for clos fx w routn heal I94Giytkfi: AthenaComments: , , Views (X-RAY, ANKLE): AP, Lateral, Mortise , , , Ordering Provider - RASHEEDA GORDILLO , Exam: ANKLE RIGHT 3 VWSAccession #: [id number] ======ANKLE RIGHT 3 VWS, TIBIA FIBULA RIGHT 10/19/2017 10:07 AM EDT SIGNS AND SYMPTOMS: S82.391D Oth fx lower end of r tibia, subs for clos fx w routn heal I10 TECHNOLOGIST COMMENTS: ortho f/u for right lower leg area QUESTION FOR THE RADIOLOGIST: , , Views (X-RAY, ANKLE): AP, Lateral, Mortise , , , Ordering Provider - RASHEEDA GORDILLO , PROTOCOL: AP,Lateral and Oblique views were obtained. (accession [id number]), AP(PA) and Lateral views were obtained. (accession [id number]) COMPARISON: October 19, 2017 FINDINGS: Soft tissues:Unchanged Bones:Unchanged Joints:Unchanged IMPRESSION: Healing lower leg injury with jil fixing distal midshaft tibial fracture in good alignment and no hardware securing healing proximal fibular fracture Electronically signed by:Lauren Clemente. Transcribed by: [email or web address], User Resident: Electronically Signed by: LAUREN CLEMENTE @ 10/19/2017 10:33 AM Normal [facility] Comment on above: Order Comment: No: D o not add to previous draw TIBIA FIBULA RIGHTon 018 TIBIA FIBULA RIGHT [facility] [address] [place] [address] P atient Name: PENNY ORDAZ : 1960Sex: MAge: Race: WhiteMRN: [id number]. Location: 84Patient Status: Date: 10/19/2017 9:55:00 AMCompleted Date: 10/19/2017 10:07 AMRequesting Provider: RASHEEDA GORDILLO Attending Provider: Report Copy To: Signs & Symptoms: M96.671 Fx tib/fib fol insrt ortho implnt/prosth/bone plt, right leg K97Emakfgh: AthenaComments: , , Views (X-RAY, TIBIA AND FIBULA): AP, Lateral , , , Ordering Provider - RASHEEDA GORDILLO , Exam: TIBIA FIBULA RIGHTAccession #: [id number] ======ANKLE RIGHT 3 VWS, TIBIA FIBULA RIGHT 10/19/2017 10:07 AM EDT SIGNS AND SYMPTOMS: S82.391D Oth fx lower end of r tibia, subs for clos fx w routn heal I10 TECHNOLOGIST COMMENTS: ortho f/u for right lower leg area QUESTION FOR THE RADIOLOGIST: , , Views (X-RAY, ANKLE): AP, Lateral, Mortise , , , Ordering Provider - RASHEEDA GORDILLO , PROTOCOL: AP,Lateral and Oblique views were obtained. (accession [id number]), AP(PA) and Lateral views were obtained. (accession [id number]) COMPARISON: October 19, 2017 FINDINGS: Soft tissues:Unchanged Bones:Unchanged Joints:Unchanged IMPRESSION: Healing lower leg injury with jil fixing distal midshaft tibial fracture in good alignment and no hardware securing healing proximal fibular fracture Electronically signed by:Lauren Clemente. Transcribed by: [email or web address], User Resident: Electronically Signed by: LAUREN CLEMENTE @ 10/19/2017 10:33 AM Normal [facility] Comment on above: Order Comment: No: D o not add to previous draw ANKLE RIGHT 3 [facility] 08-31-[address] [address] [place] [address] P atient Name: PENNY ORDAZ : 1960Sex: MAge: Race: WhiteMRN: [id number]. Location: 84Patient Status: Date: 08/31/2017 11:10:00 AMCompleted Date: 08/31/2017 11:32 AMRequesting Provider: RASHEEDA GORDILLO Attending Provider: Report Copy To: Signs & Symptoms: S82.391D Oth fx lower end of r tibia, subs for clos fx w routn heal Q43Uueerwv: AthenaComments: , , , Ordering Provider - RASHEEDA GORDILLO , Exam: ANKLE RIGHT 3 VWSAccession #: [id number] ======TIBIA FIBULA RIGHT, ANKLE RIGHT 3 VWS 08/31/2017 11:32 AM EST SIGNS AND SYMPTOMS: M96.671 Fx tib/fib fol insrt ortho implnt/prosth/bone plt, right leg I10 TECHNOLOGIST COMMENTS: Patient states post fall x 07/14/2017 ortho follow up of right tibia and right ankle QUESTION FOR THE RADIOLOGIST: , , Views (X-RAY, TIBIA AND FIBULA): AP, Lateral , , , Ordering Provider - RASHEEDA GORDILLO , PROTOCOL: AP(PA) and Lateral views were obtained. (accession [id number]), AP,Lateral and Oblique views were obtained. (accession [id number]) COMPARISON: August 03, 2017 FINDINGS: Soft tissues:No change Bones:Satisfactory alignment with healing along the proximal fibular fracture, still limited response along the tibial fracture supported by nail. The malleolar fracture shows healing. Joints:Maintained IMPRESSION: Healing ankle injury similar to August 03, 2017 with progression of healing along the proximal fibula, and the distal tibial malleolus, less so along the distal midshaft tibia Electronically signed by:Lauren Clemente. Transcribed by: [email or web address], User Resident: Electronically Signed by: LAUREN CLEMENTE @ 08/31/2017 11:37 AM Normal [facility] Comment on above: Order Comment: No: D o not add to previous draw TIBIA FIBULA RIGHTon 018 TIBIA FIBULA RIGHT [facility] [address] [place] [address] P atient Name: PENNY ORDAZ : 1960Sex: MAge: Race: WhiteMRN: [id number]. Location: 84Patient Status: Date: 08/31/2017 11:10:00 AMCompleted Date: 08/31/2017 11:32 AMRequesting Provider: RASHEEDA GORDILLO Attending Provider: Report Copy To: Signs & Symptoms: M96.671 Fx tib/fib fol insrt ortho implnt/prosth/bone plt, right leg [id number]: AthenaComments: , , Views (X-RAY, TIBIA AND FIBULA): AP, Lateral , , , Ordering Provider - RASHEEDA GORDILLO , Exam: TIBIA FIBULA RIGHTAccession #: [id number] ======TIBIA FIBULA RIGHT, ANKLE RIGHT 3 VWS 08/31/2017 11:32 AM EST SIGNS AND SYMPTOMS: M96.671 Fx tib/fib fol insrt ortho implnt/prosth/bone plt, right leg I10 TECHNOLOGIST COMMENTS: Patient states post fall x 07/14/2017 ortho follow up of right tibia and right ankle QUESTION FOR THE RADIOLOGIST: , , Views (X-RAY, TIBIA AND FIBULA): AP, Lateral , , , Ordering Provider - RASHEEDA GORDILLO , PROTOCOL: AP(PA) and Lateral views were obtained. (accession [id number]), AP,Lateral and Oblique views were obtained. (accession [id number]) COMPARISON: August 03, 2017 FINDINGS: Soft tissues:No change Bones:Satisfactory alignment with healing along the proximal fibular fracture, still limited response along the tibial fracture supported by nail. The malleolar fracture shows healing. Joints:Maintained IMPRESSION: Healing ankle injury similar to August 03, 2017 with progression of healing along the proximal fibula, and the distal tibial malleolus, less so along the distal midshaft tibia Electronically signed by:Lauren Clemente. Transcribed by: [email or web address], User Resident: Electronically Signed by: LAUREN CLEMENTE @ 08/31/2017 11:37 AM Normal [facility] Comment on above: Order Comment: No: D o not add to previous draw TIBIA FIBULA RIGHTon 018 TIBIA FIBULA RIGHT [facility] [address] [place] [address] P atient Name: PENNY ORDAZ : 1960Sex: MAge: Race: WhiteMRN: [id number]. Location: 84Patient Status: Date: 08/03/2017 10:05:00 AMCompleted Date: 08/03/2017 10:04 AMRequesting Provider: RASHEEDA GORDILLO Attending Provider: Report Copy To: Signs & Symptoms: M96.671 Fx tib/fib fol insrt ortho implnt/prosth/bone plt, right leg U81Hptplfj: AthenaComments: , , Views (X-RAY, TIBIA AND FIBULA): AP, Lateral, Oblique , , , Ordering Provider - RASHEEDA GORDILLO , Exam: TIBIA FIBULA RIGHTAccession #: [id number] ======TIBIA FIBULA RIGHT 08/03/2017 10:04 AM EST SIGNS AND SYMPTOMS: M96.671 Fx tib/fib fol insrt ortho implnt/prosth/bone plt, right leg I10 TECHNOLOGIST COMMENTS: History of right tibia surgery 07/14/2017. Ortho follow up. QUESTION FOR THE RADIOLOGIST: , , Views (X-RAY, TIBIA AND FIBULA): AP, Lateral, Oblique , , , Ordering Provider - RASHEEDA GORDILLO , PROTOCOL: AP(PA) and Lateral views were obtained. COMPARISON: July 14, 2017 FINDINGS: Soft tissues:Unchanged Bones:Unchanged Joints:Unchanged IMPRESSION: 1. Jil fixation of tibial fracture remains in good alignment but still shows limited healing2. Proximal fibular fracture remains in good alignment also with limited healing3. Distal tibial fracture screw fixation in excellent alignment with healing Electronically signed by:Lauren Clemente. Transcribed by: [id number], User Resident: Electronically Signed by: LAUREN CLEMENTE @ 08/03/2017 12:03 PM Normal [facility] Comment on above: Order Comment: No: D o not add to previous draw Discharge Summaryon 07-22-19 Discharge Summary MR#: [id number] [facility] Penny Ordaz Admitted: 07/14/2017 Discharged: 07/16/2017 Date of : 1960 Physician: Rasheeda Gordillo M.D. DISCHARGE SUMMARYPRIMARY DIAGNOSES:1. Right grade 2 open midshaft tibia fracture.2. Right posterior malleolus fracture.3. Right distal fibular fracture.4. Right proximal fibular fracture.SECONDARY DIAGNOSES:1. Tobacco use.2. Heavy alcohol use.PROCEDURES PERFORMED:1. Irrigation debridement of right grade 2 open tibia fracture.2. Open reduction and internal fixation right posterior malleolus fracture.3. Right tibia open reduction and internal medullary nailing.HOSPITAL COURSE: The patient is 56-year-[facility], [facility] on ICU ramp and suffering theaforementioned injuries. He was reduced and washed out in the emergencydepartment, placed in a splint. CT scan showed the aforementionedposterior malleolus injury that was operatively addressed. He was taken tothe OR on 07/14/2017 for the aforementioned procedures. See operativereport for surgical details. Operative course was unremarkable. Herecovered uneventfully in PACU. He returned to his room. Thereafter DVTprophylaxis was started the next day, with Lovenox. IV antibiotics werecontinued throughout the course of his hospital stay for infectionprophylaxis due to his open fracture. His right ankle splinted aftersurgery and this was kept in place throughout his stay. No drains wereused. He was able to mobilize with PT and OT and after receiving over 48hours of IV antibiotics, he was deemed ready for discharge on 07/16/2017 [facility].DISCHARGE DISPOSITION: Home.DISCHARGE CONDITION: Stable.DISCHARGE INSTRUCTIONS: The patient instructed to continue to be remainnonweightbearing on right lower extremity. He also was educated on therisk of smoking and alcohol use until the time of fracture healing. He wasinstructed to abstain during this time. He was instructed to keep hisdressing clean, dry, and intact and follow up with Dr. Gordillo in 1 week.His dressing and splint clean, dry, and intact and follow up in 1 week forrecheck with new x-rays. He was also educated on warning signs includingincrease in temperature, bleeding, drainage, or unrelieved pain.Instructed to call the Ortho Clinic if he had any acute questions orconcerns. He was agreeable to the plan above.DISCHARGE MEDICATIONS: Cephalexin 500 mg q.i.d., vitamin D3 5000 unitsdaily, diflorasone topical daily, docusate 100 mg b.i.d., enoxaparin 40 mgq.i.d., hydrocodone/acetaminophen 5/325, 1-2 tablets q.4 hours p.r.n.Electronically Signed by:Rasheeda Gordillo M.D. 07/26/2017 04:20 P Rasheeda Gordillo M.D. I have reviewed this discharge summary and confirmed the resident'sdocumentation. Please note that there may be additional documentation fromme. Date Dict: 07/21/2017/09:05 Sherry/Romana Corrigan Trans: 07/22/2017 02:28 A/mmoDN_JN:[id number] cc: Dewey Ward M.D. [address] [place] [id number] Normal [facility] ALBUMIN BLOODon 07-15-2017 Albumin 3.3 g/dL Low 3.5-5.7 [facility] Comment on above: Order Comment: No: D o not add to previous draw Performed By: #### 5 6101 ####[facility] [place] [address], [facility] BASIC METABOLIC PANELon 06-18 Calcium 8.5 mg/dL Low 8.6-10.3 [facility] Comment on above: Order Comment: No: D o not add to previous draw Performed By: #### 5 6101 ####[facility] [place] [address], [facility] Chloride 104 mmol/L Normal 98-107 [facility] Comment on above: Order Comment: No: D o not add to previous draw Performed By: #### 5 6101 ####[facility] [place] [address], [facility] CO2 29 mmol/L Normal 21-31 [facility] Comment on above: Order Comment: No: D o not add to previous draw Performed By: #### 5 6101 ####[facility] [place] [address], [facility] Creatinine 0.66 mg/dL Low 0.70-1.30 [facility] Comment on above: Order Comment: No: D o not add to previous draw Performed By: #### 5 6101 ####[facility] [place] [address], [facility] eGFR (black) mL/min/{1.73_m2} Normal >60 [facility] Comment on above: Order Comment: No: D o not add to previous draw Performed By: #### 5 6101 ####[facility] eGFR (non-black) mL/min/{1.73_m2} Normal >60 [facility] Comment on above: Order Comment: No: D o not add to previous draw Performed By: #### 5 6101 ####[facility] [place] [address], [facility] Glucose mass conc 89 mg/dL Normal 70-100 [facility] Comment on above: Order Comment: No: D o not add to previous draw Performed By: #### 5 6101 ####[facility] Potassium molar conc 4.3 mmol/L Normal 3.5-5.1 [facility] Comment on above: Order Comment: No: D o not add to previous draw Performed By: #### 5 6101 ####[facility] Sodium 137 mmol/L Normal 136-145 [facility] Comment on above: Order Comment: No: D o not add to previous draw Performed By: #### 5 6101 ####[facility] Urea nitrogen 9 mg/dL Normal 7-25 [facility] Comment on above: Order Comment: No: D o not add to previous draw Performed By: #### 5 6101 ####[facility] CBC COMPLETE BLOOD COUNTon Erythrocyte distribution width Auto Ratio (RBC) 15.2 % Normal 11.5-16.9 [facility] Comment on above: Order Comment: No: D o not add to previous draw Performed By: #### 5 6101 ####[facility] Erythrocytes (RBC) 3.00 mill/mm3 Low 4.30-5.90 [facility] Comment on above: Order Comment: No: D o not add to previous draw Performed By: #### 5 6101 ####[facility] Hematocrit (HCT) 29.6 % Low 39.0-55.0 [facility] Comment on above: Order Comment: No: D o not add to previous draw Performed By: #### 5 6101 ####[facility] [facility].[address] Hemoglobin mass conc (Bld) 9.9 g/dL Low 13.9-16.3 [facility] Comment on above: Order Comment: No: D o not add to previous draw Performed By: #### 5 6101 ####[facility] [facility].[address] MCH 33.0 pg High 24.0-32.0 [facility] Comment on above: Order Comment: No: D o not add to previous draw Performed By: #### 5 6101 ####[facility] [facility] MCHC mass conc (RBC) 33.4 g/dL Normal 32.0-36.0 [facility] Comment on above: Order Comment: No: D o not add to previous draw Performed By: #### 5 6101 ####[facility] [facility].[address] MCV 98.8 fL Normal 80.0-100.0 [facility] Comment on above: Order Comment: No: D o not add to previous draw Performed By: #### 5 6101 ####[facility] [place] [address], [facility] PLAT CNT 138 Thou/mm3 Normal 100-400 [facility] Comment on above: Order Comment: No: D o not add to previous draw Performed By: #### 5 6101 ####[facility] WBC (Leukocytes) 8.6 Thou/mm3 Normal 4.0-10.0 [facility] Comment on above: Order Comment: No: D o not add to previous draw Performed By: #### 5 6101 ####[facility] Operative Reporton 07-15-201 7 Operative Report MR#: [id number] [facility]az Room #: 5AB [id number] Discharge Date: Birthdate: 1960 OPERATIVE REPORTDATE OF SURGERY: 07/14/2017SURGEON: Rasheeda Gordillo M.D.ASSISTANTS: Cornelia Roca and Isacc Salmeron.PREOPERATIVE DIAGNOSES:1. Right grade II open midshaft tibia fracture.2. Right posterior malleolus fracture.3. Right distal fibula fracture.POSTOPERATIVE DIAGNOSES:1. Right grade 2 open midshaft tibia fracture.2. Right posterior malleolus fracture.3. Right distal fibula fracture.PROCEDURES PERFORMED:1. Irrigation and debridement down to the level of bone of a right grade 2 open tibia fracture with a wound, measuring 9 cm x 4 cm in size.2. Screw fixation of right posterior malleolus fracture.3. Right tibia intramedullary nailing.IMPLANTS:1. Synthes 10 x 330 tibial nail with associated 5.0 locking screws x4.2. 4.0 cancellous screws x2.ESTIMATED BLOOD LOSS: 400 cc.ANESTHESIA: General.COMPLICATIONS: None.DRAINS: None.INDICATIONS: The patient is a 56-year-old male, who is transferred from [facility] facility after sustaining a fall on the ice 1 day prior to today'ssurgery and suffering a right grade 2 open tibial shaft fracture. He waswashed out and reduced in the emergency department and placed into asplint. I did obtain a CT scan preoperatively given the nature of hisfracture, which did demonstrate that he had a nondisplaced distal fibularfracture as well as a nondisplaced posterior malleolus fracture. Given theopen nature of the wound, the patient was brought back in a fairly urgentmanner for today's surgery. He agreed to all risks and expected benefitsof having the procedure done prior to entering the operative suite.PROCEDURE IN DETAIL: The patient was seen in the preoperative holdingarea. The right leg was marked by me. He was taken back to the operatingroom. General anesthesia was smoothly induced. Preoperative antibioticswere administered intravenously. His previous dressings were removed. Anonsterile tourniquet was applied to the right thigh and the right lowerextremity was prepped and draped in the usual sterile fashion. A time-outwas performed using 2 separate patient identifiers.We began the procedure by evaluating the wound. Overall, the woundmeasured 9 cm x 4 cm in size. It was down to the level of bone. Of note,there was no gross contamination; however, the proximal bony spike wasclearly visible within the wound and was protruding somewhat. We did takecare to thoroughly debride out the entire wound and especially both bonyends thoroughly. I did extend the incision approximately 1-2 cm proximallyin order to include the full extent of the zone of injury. We did not haveto extend distally as there was no tracking of the wound distally. Afterperforming our debridement, we then used a total of 9 L of normal salineusing Cysto tubing to thoroughly irrigate out the wounds. We used one 3 Lbag each for each bony end and then an additional 3 L for the wound. Atthis stage, after the wound was clean, we then were able to easily obtainour reduction, which was held with pointed Andres reduction clamps. X-raysconfirmed anatomic reduction of the tibia fracture. At this stage, I thenproceeded with performing a small open incision anteriorly in order toplace our 2 anterior-posterior screws to prevent the posterior malleolusfrom displacing. This incision was made anteriorly just proximal to theankle joint. I then held our reduction with a 2-0 K-wire and then, Isequentially drilled and placed 2 lag screws using lag by technique with3.5 overdrill, followed by 2.5 drill for the far cortex. Both screws were45 mm in length. Each screw had excellent purchase and our fragment wasadequately reduced, this was confirmed with AP and lateral x-rays.At this stage, we then turned our attention to the tibial nailing. Dawson, he does have a history of psoriasis with multiple plaque lesions onthe lower extremity including 1 over our anteriorly based knee incision;however, this was a fairly large plaque and we cannot avoid it with ourincision. We, therefore, made this incision just off the inferior pole ofthe patella, dissected down through the soft tissues, identified thepatellar tendon, which was split in line with the incision. Our startingpoint was obtained with our guide pin and confirmed with AP and lateralx-rays. We then utilized our opening reamer. We passed our ball-tipguidewire down to the level just proximal of the distal anterior-posteriorscrews. We obtained our length measurements and we began sequentiallyreaming while assuring that we had maintained reduction at our fracturesite. We began with a 9 reamer and reamed up to a 11.5 reamer withexhollie batres. I decided upon a 10 mm nail, this was then placed pastthe fracture and seated to the appropriate depth without difficulty.Distally, we placed 2 medial to lateral locking screws using perfect circletechnique and proximally, we used the jig in order to place 2 medial tolateral locking screws proximally. All screws had excellent purchase. Atthis stage, we took final AP and lateral x-rays at the knee, the fracturesite as well as at the ankle. At the ankle, we did additionally do amortise view as well as a stress view. There was no evidence of anywidening as the patient did have a fibular fracture, which was a distalfibular fracture, however, it was truly nondisplaced on all views. It wasout to length and there was no evidence of syndesmotic widening with thepreoperative CT scan. In addition, the stress views were negative. He didhave a large psoriatic plaque directly over this area, so I did not want tofix this if not absolutely necessary. In addition, I knew he was going eddie nonweightbearing for at least 6 weeks given the posterior malleolusfracture at the level of the tibial plafond. So, at this stage, we thenthoroughly irrigated out all the wounds. I used an additional 3 L ofnormal saline at the open fracture site and irrigated out all the remainingwounds. These were all closed in layers. Of note, we were able to getexcellent skin closure for the approximately 80% of the open wound;however, the distal extent was a little bit more tenuous as this area waswhere the bone was resting on the skin after the injury and I did have toexcise some of the skin edges, which were unhealthy appearing; however, Iwas able to get the skin edges well opposed without tension. The skin wasvery thin in this region. We then applied sterile dressings to all ofwounds. We placed the patient in a well-padded posterior splint. Thedrapes were taken down. He was awoken from anesthesia and was taken topostoperative anesthesia care unit in stable condition.I was present for the entire procedure and available immediately thereafterfor any possible complications.POSTOPERATI VE COURSE: The patient will be nonweightbearing to the rightlower extremity. We will continue IV antibiotics for 3 dayspostoperatively. We will keep a close eye on the open fracture site and Iwill see him back in clinic in 1 week's time to assure that this siteappears healthy as the closure was somewhat tenuous and given that it is amedially based wound I want to watch this closely. He will receive Lovenoxfor DVT prophylaxis which will begin on postoperative day 1.Electronically Signed by:Rasheeda Gordillo M.D. 07/17/2017 11:43 A Rasheeda Gordillo M.D.Date Dict: 07/14/2017/02:49 P/Rasheeda Gordillo M.D.Date Trans: 07/14/2017 11:58 P/mmoDN_JN:[id number] cc: Dewey Ward M.D. [address], [address] [place] [address] Normal [facility] PREALBUMINon 07-15-2017 Prealbumin 19.2 mg/dL Normal 17.0-34.0 [facility] Comment on above: Order Comment: No: D o not add to previous draw Performed By: #### 5 6101 ####[address] TRANSFERRINon 07-15-2017 Transferrin 235 mg/dL Normal 203-362 [facility] Comment on above: Order Comment: No: D o not add to previous draw Performed By: #### 5 6101 ####[address] VITAMIN D 25-HYDROXYon 07-15 VITAMIN D 25-OH <13.0 Low 30.0-80.0 [facility] Comment on above: Result Comment: >80. 0 Toxicity possible Performed By: #### 5 6101 ####[address] LOWER EXTREMITY WO CON TRAST RIGHTon 07-14-[address] LOWER EXTREMITY WO CONTRAST RIGHT [facility]ub[address] [place] [id number] P atient Name: PENNY ORDAZ : 1960Sex: MAge: Race: WhiteMRN: [id number]. Location: [id number] Status: IVisit #: [id number] Date: 07/14/2017 9:20:00 AMCompleted Date: 07/14/2017 11:03 AMRequesting Provider: RASHEEDA GORDILLO Attending Provider: REX HIGH Report Copy To: Signs & Symptoms: FractureHistory: Patient history not availableComments: R/O Fractures, Right ankle CT STAT without contrast to rule out posterior malleolus fracture. Patient scheduled for OR at 11 AM.Exam: 3D CT LOWER EXTREMITY WO CONTRAST RIGHTAccession #: [id number] ======3D CT LOWER EXTREMITY WO CONTRAST RIGHT 07/14/2017 11:03 AM EST SIGNS AND SYMPTOMS: Fracture TECHNOLOGIST COMMENTS:slid on ramp in garage pain pre op QUESTION FOR THE RADIOLOGIST: R/O Fractures, Right ankle CT STAT without contrast to rule out posterior malleolus fracture. Patient scheduled for OR at 11 AM. PROTOCOL: Axial CT images of the extremity were obtained without IV contrast. TECHNIQUE: Multidetector CT axial slices of the right leg were obtained without IV contrast. Multiplanar reformats, MIP, volume rendered 3-D images were generated on a separate workstation and reviewed to further define anatomy and possible pathology. COMPARISON: None. FINDINGS: Skeleton: Compound mid shaft spiral fracture of tibia with distal segment offset laterally by 1 shaft width and with posterior convexity of 15 degrees. At the joint there is extension of coronally oriented fracture line through the posterior tibial malleolus, nondisplaced. There are also small chip fractures both on the tibial and the fibular sides of the anterior syndesmotic ligament.Relatively nondisplaced distal fibular fractureComminuted impacted proximal fibular metaphyseal fracture is not included on the scan but seen by plain film. Soft tissues: Diffuse swelling with extensive air bubbles in the vicinity of the compound fracture and also some air tracking distally and anteriorly probably within the anterior tibiotalar joint. Muscles show some edema and hemorrhage. Tendons appear intact. IMPRESSION: 1. Displaced compound distal midshaft right tibial spiral fracture2. Nondisplaced intra-articular posterior tibial malleolar fracture at the ankle, likely with a small anterior joint cavity air bubble3. Chip fractures along the fibular and tibial attachments of the anterior syndesmotic ligament without syndesmotic widening.4. Proximal comminuted and slightly impacted fibular fracture with relatively nondisplaced distal fibular fracture Electronically signed by:Lauren Clemente. Transcribed by: [id number], User Resident: Electronically Signed by: LAUREN CLEMENTE @ 07/14/2017 11:41 AM Normal [facility] Comment on above: Order Comment: No: D o not add to previous draw ALCOHOLon 07-14-2017 Ethanol NONE DETECTED Normal [facility] Comment on above: Result Comment: Divi de by 1000 to convert mg/dL to percent. Example: 100mg/dL = 0.1%. Performed By: #### 2 0621 ####[facility] BASIC METABOLIC PANELon 06-18 Calcium 8.9 mg/dL Normal 8.6-10.3 [facility] Comment on above: Order Comment: No: D o not add to previous draw Performed By: #### 0 0071 ####[facility] [place] [address], [facility] Chloride 109 mmol/L High 98-107 [facility] Comment on above: Order Comment: No: D o not add to previous draw Performed By: #### 0 0071 ####[facility] [place] [address], [facility] CO2 23 mmol/L Normal 21-31 [facility] Comment on above: Order Comment: No: D o not add to previous draw Performed By: #### 0 0071 ####[facility] [place] [address], [facility] Creatinine 0.68 mg/dL Low 0.70-1.30 [facility] Comment on above: Order Comment: No: D o not add to previous draw Performed By: #### 0 0071 ####[facility] [place] [address], [facility] [facility] eGFR (black) mL/min/{1.73_m2} Normal >60 [facility] Comment on above: Order Comment: No: D o not add to previous draw Performed By: #### 0 0071 ####[facility] eGFR (non-black) mL/min/{1.73_m2} Normal >60 [facility] Comment on above: Order Comment: No: D o not add to previous draw Performed By: #### 0 0071 ####[facility] Glucose mass conc 119 mg/dL High 70-100 [facility] Comment on above: Order Comment: No: D o not add to previous draw Performed By: #### 0 0071 ####[facility] Potassium molar conc 4.3 mmol/L Normal 3.5-5.1 [facility] Comment on above: Order Comment: No: D o not add to previous draw Performed By: #### 0 0071 ####[facility] Sodium 139 mmol/L Normal 136-145 [facility] Comment on above: Order Comment: No: D o not add to previous draw Performed By: #### 0 0071 ####[facility] Urea nitrogen 11 mg/dL Normal 7-25 [facility] Comment on above: Order Comment: No: D o not add to previous draw Performed By: #### 0 0071 ####[facility] CBC COMPLETE BLOOD COUNTon 1 09-14-2016 Erythrocyte distribution width Auto Ratio (RBC) 14.9 % Normal 11.5-16.9 [facility] Comment on above: Order Comment: No: D o not add to previous draw Performed By: #### 5 0608 ####[facility] [place] [address], [facility] Erythrocytes (RBC) 3.66 mill/mm3 Low 4.30-5.90 [facility] Comment on above: Order Comment: No: D o not add to previous draw Performed By: #### 5 0608 ####[facility] Hematocrit (HCT) 35.6 % Low 39.0-55.0 [facility] Comment on above: Order Comment: No: D o not add to previous draw Performed By: #### 5 0608 ####[facility] Hemoglobin mass conc (Bld) 12.2 g/dL Low 13.9-16.3 [facility] Comment on above: Order Comment: No: D o not add to previous draw Performed By: #### 5 0608 ####[place] [id number] MCH 33.3 pg High 24.0-32.0 [facility] Comment on above: Order Comment: No: D o not add to previous draw Performed By: #### 5 0608 ####[facility] MCHC mass conc (RBC) 34.2 g/dL Normal 32.0-36.0 [facility] Comment on above: Order Comment: No: D o not add to previous draw Performed By: #### 5 0608 ####[facility] MCV 97.3 fL Normal 80.0-100.0 [facility] Comment on above: Order Comment: No: D o not add to previous draw Performed By: #### 5 0608 ####[facility] PLAT CNT 170 Thou/mm3 Normal 100-400 [facility] Comment on above: Order Comment: No: D o not add to previous draw Performed By: #### 5 0608 ####[place] [address] [place] [address], [facility] WBC (Leukocytes) 9.4 Thou/mm3 Normal 4.0-10.0 [facility] Comment on above: Order Comment: No: D o not add to previous draw Performed By: #### 5 0608 ####[address] [address], [facility] POC GLUCOSE LABon 07-14-2017 Glucose mass conc 115 mg/dL High 70-100 [facility] Comment on above: Performed By: #### 8 5499 ####[address] [address], [facility] PORTABLE ANKLE RIGHT 2 VWSon 07-14-2017 PORTABLE ANKLE RIGHT 2 VWS [facility] Qv[address] [place] [address] P atient Name: PENNY ORDAZ : 1960Sex: MAge: Race: WhiteMRN: [id number]. Location: [id number] Status: IVisit #: [id number] Date: 07/14/2017 3:15:00 PMCompleted Date: 07/14/2017 03:55 PMRequesting Provider: CORNELIA ROCA Attending Provider: REX HIGH Report Copy To: Signs & Symptoms: Post OPHistory: Patient history not availableComments: Hardware EvaluationExam: PORTABLE ANKLE RIGHT 2 VWSAccession #: [id number] ======PORTABLE ANKLE RIGHT 2 VWS 07/14/2017 3:55 PM EST SIGNS AND SYMPTOMS: Post OP TECHNOLOGIST COMMENTS: post op rt tib fib and rt ankle hardware QUESTION FOR THE RADIOLOGIST: Hardware Evaluation PROTOCOL: AP(PA) and Lateral views were obtained. COMPARISON: 07/06/2017, earlier the same day.. FINDINGS: Soft tissues:Soft tissue edema about the distal tibia Bones:Interval placement of IM jil with screws in distal tibia. 2 additional screws are noted through the distal tibia. Unchanged appearance of distal fibular fracture. Joints:Ankle mortise appears intact and unchanged IMPRESSION: Interval placement of IM jil and screws fixating distal tibial fractures. Unchanged distal fibular fracture Approved by:Adriel Sykes on 07/14/2017 4:20 PM EST. I, Oscar Still, have reviewed the images and report and concur with these findings. Electronically signed by:Oscar Still. Transcribed by: [id number], User Resident: ADRIEL SYKESElectronically Signed by: OSCAR STILL @ 07/16/2017 01:33 AMI personally read this/these film(s) with this resident Normal [facility] Comment on above: Order Comment: No: D o not add to previous draw PORTABLE ANKLE RIGHT 2 S [facility] [address]xsqhxed[address] [place] [address] P atient Name: PENNY ORDAZ : 1960Sex: MAge: Race: WhiteMRN: [id number]. Location: [id number] Status: IVisit #: [id number] Date: 07/14/2017 12:55:00 AMCompleted Date: 07/14/2017 03:01 AMRequesting Provider: BHARTI BLUE Attending Provider: REX HIGH Report Copy To: Signs & Symptoms: Pain ( specify Location)History: Patient history not availableComments: R/O FXExam: PORTABLE ANKLE RIGHT 2 VWSAccession #: [id number] ======PORTABLE TIBIA FIBULA RIGHT, PORTABLE ANKLE RIGHT 2 VWS, PORTABLE KNEE RIGHT 2 VWS 07/14/2017 3:01 AM EST SIGNS AND SYMPTOMS: Trauma TECHNOLOGIST COMMENTS: s/p fall; patient transferred from another hospital; has a known tibia fx QUESTION FOR THE RADIOLOGIST: R/O FX PROTOCOL: AP(PA) and Lateral views were obtained. COMPARISON: July 14, 2017 FINDINGS: Soft tissues:Overlying splint securing the oblique distal midshaft tibia fracture and in offset alignment and the proximal fibular fracture and slightly impacted alignment. Bones:The distal tibial segment is almost one shaft width lateral and one half shaft width posterior to the proximal segment and there is slight medial convexity Joints:Knee and ankles appear to be intact with small effusions IMPRESSION: Displaced tib-fib fracture as above with closed reduction and residual offset deformity and foreshortening Electronically signed by:Lauren Clemente. Transcribed by: [id number], User Resident: Electronically Signed by: LAUREN CLEMENTE @ 07/14/2017 08:06 AM Normal [facility] Comment on above: Order Comment: R/O F X PORTABLE KNEE RIGHT 2 VWSon 07-14-2017 PORTABLE KNEE RIGHT 2 VWS [facility] Yhhceofqp[address] [place] [address] P atient Name: PENNY ORDAZ : 1960Sex: MAge: Race: WhiteMRN: [id number]. Location: [id number] Status: IVisit #: [id number] Date: 07/14/2017 12:55:00 AMCompleted Date: 07/14/2017 03:01 AMRequesting Provider: BHARTI BLUE Attending Provider: REX HIGH Report Copy To: Signs & Symptoms: DeformityHistory: Patient history not availableComments: R/O FXExam: PORTABLE KNEE RIGHT 2 VWSAccession #: [id number] ======PORTABLE TIBIA FIBULA RIGHT, PORTABLE ANKLE RIGHT 2 VWS, PORTABLE KNEE RIGHT 2 VWS 07/14/2017 3:01 AM EST SIGNS AND SYMPTOMS: Trauma TECHNOLOGIST COMMENTS: s/p fall; patient transferred from another hospital; has a known tibia fx QUESTION FOR THE RADIOLOGIST: R/O FX PROTOCOL: AP(PA) and Lateral views were obtained. COMPARISON: July 14, 2017 FINDINGS: Soft tissues:Overlying splint securing the oblique distal midshaft tibia fracture and in offset alignment and the proximal fibular fracture and slightly impacted alignment. Bones:The distal tibial segment is almost one shaft width lateral and one half shaft width posterior to the proximal segment and there is slight medial convexity Joints:Knee and ankles appear to be intact with small effusions IMPRESSION: Displaced tib-fib fracture as above with closed reduction and residual offset deformity and foreshortening Electronically signed by:Lauren Clemente. Transcribed by: [email or web address], User Resident: Electronically Signed by: LAUREN CLEMENTE @ 07/14/2017 08:06 AM Normal [facility] Comment on above: Order Comment: R/O F X PORTABLE TIBIA FIBULA RIGHTo n 07-14-2017 PORTABLE TIBIA FIBULA RIGHT [facility] Mgbxmdzbe12[address] [place] [address] P atient Name: PENNY ORDAZ : 1960Sex: MAge: Race: WhiteMRN: [id number]. Location: [id number] Status: IVisit #: [id number] Date: 07/14/2017 3:15:00 PMCompleted Date: 07/14/2017 03:55 PMRequesting Provider: CORNELIA ROCA Attending Provider: REX HIGH Report Copy To: Signs & Symptoms: Post OPHistory: Patient history not availableComments: Hardware EvaluationExam: PORTABLE TIBIA FIBULA RIGHTAccession #: [id number] ======PORTABLE TIBIA FIBULA RIGHT 07/14/2017 3:55 PM EST SIGNS AND SYMPTOMS: Post OP TECHNOLOGIST COMMENTS: post op rt tib fib and rt ankle hardware QUESTION FOR THE RADIOLOGIST: Hardware Evaluation PROTOCOL: AP(PA) and Lateral views were obtained. COMPARISON: 07/06/2017, earlier the same day.. FINDINGS: Soft tissues:Swelling and edema about the lower leg. Bones:Interval placement of IM jil and screws fixating the distal tibial shaft fracture. Screws through the anterior distal tibia are also again noted. Unchanged proximal and distal fibular fractures. Joints:No dislocation. IMPRESSION: Fixated tibial fractures now in good alignment. Fibular fractures again noted. Approved by:Adriel Sykes on 07/14/2017 4:21 PM EST. I, Oscar Still, have reviewed the images and report and concur with these findings. Electronically signed by:Oscar Still. Transcribed by: [email or web address], User Resident: ADRIEL SYKESElectronically Signed by: OSCAR STILL @ 07/16/2017 01:31 AMI personally read this/these film(s) with this resident Normal [facility] Comment on above: Order Comment: No: D o not add to previous draw PORTABLE TIBIA FIBULA RIGHT [facility] Qkuulbnmg[address] [place] [address] P atient Name: PENNY ORDAZ : 1960Sex: MAge: Race: WhiteMRN: [id number]. Location: [id number] Status: IVisit #: [id number] Date: 07/14/2017 12:50:00 AMCompleted Date: 07/14/2017 03:01 AMRequesting Provider: BHARTI BLUE Attending Provider: REX HIGH Report Copy To: Signs & Symptoms: TraumaHistory: Patient history not availableComments: R/O FXExam: PORTABLE TIBIA FIBULA RIGHTAccession #: [id number] ======PORTABLE TIBIA FIBULA RIGHT, PORTABLE ANKLE RIGHT 2 VWS, PORTABLE KNEE RIGHT 2 VWS 07/14/2017 3:01 AM EST SIGNS AND SYMPTOMS: Trauma TECHNOLOGIST COMMENTS: s/p fall; patient transferred from another hospital; has a known tibia fx QUESTION FOR THE RADIOLOGIST: R/O FX PROTOCOL: AP(PA) and Lateral views were obtained. COMPARISON: July 14, 2017 FINDINGS: Soft tissues:Overlying splint securing the oblique distal midshaft tibia fracture and in offset alignment and the proximal fibular fracture and slightly impacted alignment. Bones:The distal tibial segment is almost one shaft width lateral and one half shaft width posterior to the proximal segment and there is slight medial convexity Joints:Knee and ankles appear to be intact with small effusions IMPRESSION: Displaced tib-fib fracture as above with closed reduction and residual offset deformity and foreshortening Electronically signed by:Lauren Clemente. Transcribed by: [id number], User Resident: Electronically Signed by: LAUREN CLEMENTE @ 07/14/2017 08:06 AM Normal [facility] Comment on above: Order Comment: R/O F X PROTHROMBIN TIMEon 7 INR Coag RelTime (PPP) 1.06 {INR} Normal 0.91-1.16 [facility] Comment on above: Order Comment: No: D o not add to previous draw Result Comment: ACCC P RECOMMENDED INR FOR WARFARIN THERAPY CONDITION INRPROPHYLAXIS OF VENOUS THROMBOSIS 2-3(HIGH-RISK SURGERY)TREATMENT OF VENOUS THROMBOSIS 2-3TREATMENT OF PULMONARY EMBOLISM 2-3PREVENTION OF SYSTEMIC EMBOLISM: 2-3 ACUTE MYOCARDIAL INFARCTION TISSUE HEART VALVES VALVULAR HEART DISEASE ATRIAL FIBRILLATION RECURRENT SYSTEMIC EMBOLISMMECHANICAL HEART VALVE 2.5-3.5 FROM: ORAL ANTICOAGULANTS. MECHANISM OF ACTION, CLINICALEFFECTIVENESS, AND OPTIMAL THERAPEUTIC RANGE. [id number]. Performed By: #### 5 6101 ####[facility] Prothrombin time (PT) Coag time (PPP) 13.8 s Normal 12.3-14.8 [facility] Comment on above: Order Comment: No: D o not add to previous draw Result Comment: ALL RESULTS MUST BE INTERPRETED WITH RESPECT TO BLOOD DRAWING ARTIFACTOR DILUTION ERROR OF ANTICOAGULANT AT THE TIME OF SAMPLING. Performed By: #### 5 6101 ####[facility] [facility] [place] [address], [facility] RBC'S 2 UNITSon 07-14-2017 CROSSMATCH INTERP 1 COMP Normal [facility] Comment on above: Performed By: #### 8 6002 ####[facility] [place] [address], [facility] CROSSMATCH INTERP 2 COMP Normal [facility] Comment on above: Performed By: #### 8 6002 ####[facility] [facility] [place] [address], [facility] PRODUCT CODE 1 E0336 Normal [facility] Comment on above: Performed By: #### 8 6002 ####[facility] [facility] [place] [address], [facility] PRODUCT CODE 2 E0336 Normal [facility] Comment on above: Performed By: #### 8 6002 ####[facility] [facility] [place] [address], [facility] PRODUCT STATUS 1 RE Normal [facility] Comment on above: Result Comment: Resu lt changed by IF on 07/18/2017 07:23. The previous value was XM. Performed By: #### 8 6002 ####[facility] [facility] [place] [address], [facility] PRODUCT STATUS 2 RE Normal [facility] Comment on above: Result Comment: Resu lt changed by IF on 07/18/2017 07:23. The previous value was XM. Performed By: #### 8 6002 ####[facility] [facility].[place] [id number], [facility] UNIT ABO 1 A Normal [facility] Comment on above: Performed By: #### 8 6002 ####[facility] UNIT ABO 2 A Normal [facility] Comment on above: Performed By: #### 8 6002 ####[facility] [facility].[address] UNIT ID 1 [id number] Normal [facility] Comment on above: Performed By: #### 8 6002 ####[facility] [facility].[address] UNIT ID 2 [id number] Normal [facility] Comment on above: Performed By: #### 8 6002 ####[facility] [facility].[address] UNIT RH 1 Positive Normal [facility] Comment on above: Performed By: #### 8 6002 ####[facility] [facility].[address] UNIT RH 2 Positive Normal [facility] Comment on above: Performed By: #### 8 6002 ####[address] TIBIA FIBULA RIGHTon 017 TIBIA FIBULA RIGHT [facility] Hmb[address] [place] [address] P atient Name: PENNY ORDAZ : 1960Sex: MAge: Race: WhiteMRN: [id number]. Location: [id number] Status: IVisit #: [id number] Date: 07/14/2017 1:30:00 PMCompleted Date: 07/14/2017 02:20 PMRequesting Provider: RASHEEDA GORDILLO Attending Provider: REX HIGH Report Copy To: Signs & Symptoms: im rodding right tibiaHistory: im rodding right tibiaComments: im rodding right tibiaExam: TIBIA FIBULA RIGHTAccession #: [id number] ======TIBIA FIBULA RIGHT 07/14/2017 2:20 PM EST SIGNS AND SYMPTOMS: im rodding right tibia TECHNOLOGIST COMMENTS: intra-op right tibia jil, 2 minutes 40 seconds fluoro time, OR 5, Dr. Gordillo QUESTION FOR THE RADIOLOGIST: im rodding right tibia PROTOCOL: AP(PA) and Lateral views were obtained. COMPARISON: None FINDINGS: Soft tissues: Bones: Joints: IMPRESSION: Documentation Electronically signed by:Lauren Clemente. Transcribed by: [id number], User Resident: Electronically Signed by: LAUREN CLEMENTE @ 07/14/2017 02:53 PM Normal [facility] Comment on above: Order Comment: No: D o not add to previous draw TYPE AND SCREENon 07-14-2017 ABO INTERPRETATION A Normal [facility] Comment on above: Performed By: #### 6 2586 ####[facility] [facility] [place] [address], [facility] ANTIBODY SCREEN Negative Normal [facility] Comment on above: Performed By: #### 6 2586 ####[facility] [facility] [place] [address], [facility] RH INTERPRETATION Positive Normal [facility] Comment on above: Performed By: #### 6 2586 ####[facility] [facility] [place] [address], [facility] XR TIB-FIB RT 2Von 7 XR TIB-FIB RT 2V [address] [place] [address] Patient: PENNY ORDAZ Exam Date: 07/13/2017DOB: 1960 Gender:M : DR MELBA SANCHEZ . Admission #: [id number] : Order #: [id number] HERE TO VIEW EXAM RADIOLOGY REPORT PROCEDURE: RADIOGRAPH TIBIA/FIBULA RIGHT 2 VIEWS COMPARISON: None. INDICATIONS: Acute open fracture of right tibia after fall FINDINGS: BONES: Acute spiral fracture left mid tibial diaphysis with displacement up to 3 cm. Complex fracture metadiaphysis of the proximal fibulaSOFT TISSUES: Soft tissue emphysemaOTHER: Fracture known to Dr. Sanchez CONCLUSION: 1. Acute tibia and fibular fractures as described Dictated by: Kei Arreola M.D. on 07/14/2017 at 07:55 Approved by: Kei Arreola M.D. on 07/14/2017 at 07:56 Normal [facility] Vital Signs Date Time Vital Sign Value Performing Clinician Facility 11-01-2024 09:26-0400 Body height 175.3 cm [employer] [facility] 11-01-2024 09:26-0400 Body mass index (BMI) [Ratio] 23.26 kg/m2 DeweyKobojong DO [facility] 11-01-2024 09:26-0400 Body temperature 97.5 [degF] Dewey [employer]ng DO [facility] 11-01-2024 09:26-0400 Body weight 71.49 kg Dewey [employer] DO [facility] 11-01-2024 09:26-0400 Diastolic blood pressure 52 mm[Hg] Dewey [employer] DO [facility] 11-01-2024 09:26-0400 Heart rate 91 /min Dewey [employer] DO [facility] 11-01-2024 09:26-0400 Respiratory rate 18 /min DeweyKobojong DO Work Phone: [facility] 11-01-2024 09:26-0400 SaO2% (BldA) [Mass fraction] 100 % Dewey Ward DO [facility] 11-01-2024 09:26-0400 Systolic blood pressure 120 mm[Hg] Dewey Ward DO [facility] 10-04-2024 10:30-0400 Body height 175.3 cm Keyur Stuart MD Work Phone: [facility] 10-04-2024 10:30-0400 Body mass index (BMI) [Ratio] 23.2 kg/m2 Keyur Stuart MD [facility] 10-04-2024 10:30-0400 Body temperature 97.5 [degF] Keyur Stuart MD [facility] 10-04-2024 10:30-0400 Body weight 71.31 kg Keyur Stuart MD Work Phone: [facility] 10-04-2024 10:30-0400 Diastolic blood pressure 56 mm[Hg] Keyur Stuart MD [facility] 10-04-2024 10:30-0400 Heart rate 96 /min Keyur Stuart MD Work Phone: [facility] 10-04-2024 10:30-0400 Respiratory rate 16 /min Keyur Stuart MD [facility] 10-04-2024 10:30-0400 SaO2% (BldA) [Mass fraction] 98 % Keyur Stuart MD Work Phone: [facility] 10-04-2024 10:30-0400 Systolic blood pressure 127 mm[Hg] Keyur Stuart MD [facility] 09-21-2024 09:04-0500 Body height 175.3 cm Dewey Ward DO Work Phone: [employer] 09-21-2024 09:04-0500 Body mass index (BMI) [Ratio] 23.71 kg/m2 Dewey Furlong DO Work Phone: [facility] [employer] [facility] 09-21-2024 09:04-0500 Body temperature 97.39 [degF] Dewey Furlong DO Work Phone: [facility] [employer] [facility] 09-21-2024 09:04-0500 Body weight 72.85 kg Dewey Furlong DO Work Phone: [facility] [employer] [facility] 09-21-2024 09:04-0500 Diastolic blood pressure 50 mm[Hg] Dewey Furlong DO Work Phone: [facility] 09-21-2024 09:04-0500 Heart rate 101 /min Dewey Furlong DO Work Phone: [facility] [employer] [facility] 09-21-2024 09:04-0500 Respiratory rate 18 /min Dewey Furlong DO Work Phone: [facility] 09-21-2024 09:04-0500 SaO2% (BldA) [Mass fraction] 93 % Dewey Furlong DO Work Phone: [facility] [employer] [facility] 09-21-2024 09:04-0500 Systolic blood pressure 120 mm[Hg] Dewey Furlong DO Work Phone: [facility] 09-06-2024 10:29-0500 Body height 175.3 cm Dewey Furlong DO Work Phone: [facility] 09-06-2024 10:29-0500 Body mass index (BMI) [Ratio] 25.67 kg/m2 Dewey Furlong DO Work Phone: [facility] 09-06-2024 10:29-0500 Body temperature 97.5 [degF] Dewey Furlong DO Work Phone: [facility] 09-06-2024 10:29-0500 Body weight 78.83 kg Dewey Furlong DO Work Phone: [facility] [employer] 09-06-2024 10:29-0500 Diastolic blood pressure 60 mm[Hg] Dewey Furlong DO Work Phone: [facility] [employer] [facility] 09-06-2024 10:29-0500 Heart rate 85 /min Dewey Furlong DO Work Phone: [facility] 09-06-2024 10:29-0500 SaO2% (BldA) [Mass fraction] 96 % Dewey Furlong DO Work Phone: [facility] [employer] [facility] 09-06-2024 10:29-0500 Systolic blood pressure 110 mm[Hg] Dewey Furlong DO Work Phone: [facility] [employer] [facility] 06-25-2024 13:51-0500 Body height 175.3 cm Dewey Furlong DO Work Phone: [facility] [employer] [facility] 06-25-2024 13:51-0500 Body mass index (BMI) [Ratio] 24.04 kg/m2 Dewey Furlong DO Work Phone: [facility] [employer] [facility] 06-25-2024 13:51-0500 Body temperature 97.9 [degF] Dewey Furlong DO Work Phone: [facility] [employer] [facility] 06-25-2024 13:51-0500 Body weight 73.85 kg Dewey Furlong DO Work Phone: [facility] 06-25-2024 13:51-0500 Diastolic blood pressure 42 mm[Hg] Dewey Furlong DO Work Phone: [facility] [employer] [facility] 06-25-2024 13:51-0500 Heart rate 94 /min Dewey Furlong DO Work Phone: [facility] [employer] [facility] 06-25-2024 13:51-0500 Respiratory rate 18 /min Dewey Furlong DO Work Phone: [facility] 06-25-2024 13:51-0500 SaO2% (BldA) [Mass fraction] 95 % Dewey Ward DO Work Phone: [facility] 06-25-2024 13:51-0500 Systolic blood pressure 102 mm[Hg] Dewey Ward DO Work Phone: [facility] [employer] Encounters Encounter Date Encounter Type Care Provider Facility Start: 11-01-2024 End: 11-01-2024 Office outpatient visit 15 minutes Dewey Ward DO Work Phone: [facility] Comment on above: Primary myelofibrosi s (CMS-HCC) (Primary Dx); Pleural effusion, right; Memory loss Start: 10-09-2024 End: 10-09-2024 ambulatory Dewey Ward DO Work Phone: [facility] Work Phone: Start: 10-09-2024 End: 10-09-2024 Departed Referred Dewey Ward DO Work Phone: [facility] Start: 10-04-2024 End: 10-04-2024 Documentation procedure Misti Sung [facility] Start: 10-04-2024 End: 10-04-2024 Office outpatient visit 40 minutes Keyur Stuart MD Work Phone: Elizabeth [facility] Comment on above: Primary myelofibrosi s (CMS-HCC) (Primary Dx); Severe anemia; Lymphadenopathy, inguinal; Splenomegaly Start: 10-04-2024 End: 10-04-2024 ambulatory KEYUR STUART [facility] Start: 10-01-2024 End: 10-01-2024 Orders Only Dewey Ward DO Work Phone: [facility] Comment on above: Severe anemia (Prima ry Dx) Start: 09-26-2024 Non-patient / Non-visit Dewey Ward DO Work Phone: [facility] Work Phone: Start: 09-26-2024 End: 09-26-2024 Patient encounter procedure Dewey Ward DO Work Phone: [facility]-Res[facility] Therapy Work Phone: Start: 09-26-2024 End: 09-26-2024 ambulatory Dewey Myersyannick YOUNG Work Phone: [facility] Work Phone: Start: 09-21-2024 End: 09-21-2024 ambulatory [facility] Start: 09-21-2024 End: 09-21-2024 Transitional care manage srvc 14 day discharge Dewey [facility] Work Phone: [facility] Comment on above: Severe anemia (Prima ry Dx); Lymphadenopathy, inguinal; Ex-cigarette smoker; Hyperglycemia; Special screening for malignant neoplasm of colon Start: 09-21-2024 End: 09-21-2024 ambulatory [facility] Start: 09-12-2024 End: 09-12-2024 Telephone encounter Guerline Cha CMA [facility] Start: 09-08-2024 End: 09-08-2024 Telephone encounter Latha Salcido Call Richard boyd Comment on above: Consult (Right pleur al effusion concern for malignancy) Start: 09-08-2024 End: 09-12-2024 Evaluation and management of inpatient TAMELA Weaver CLAY [facility] Start: 09-07-2024 End: 09-08-2024 Emergency department patient visit GEREMIAS SOTO [facility] Start: 09-06-2024 End: 09-06-2024 ambulatory [facility] Start: 09-06-2024 End: 09-06-2024 Telephone encounter Cherelle Murphy [facility] Call Richard boyd Comment on above: CRITICAL LAB Start: 09-06-2024 End: 09-06-2024 Office outpatient visit 25 minutes Dewey Ward DO Work Phone: [facility] Comment on above: Memory loss (Primary Dx); Hot flashes; Cigarette smoker Start: 09-06-2024 End: 09-06-2024 ambulatory [facility] Start: 07-23-2024 End: 07-23-2024 Telephone encounter Elisha Lewis CMA [facility] Start: 06-29-2024 End: 06-29-2024 Orders Only Dewey Ward DO Work Phone: [facility] Internal Medicine - Family [facility] Start: 06-25-2024 End: 06-25-2024 ambulatory [facility] Start: 06-25-2024 End: 06-25-2024 Patient encounter procedure Dewey Ward DO Work Phone: [facility] Comment on above: Welcome to Medicare preventive visit (Primary Dx); Screening for depression; Screening for heart disease; Colon cancer screening declined; Prostate cancer screening declined Start: 06-25-2024 End: 06-25-2024 Patient encounter status Dewey Ward DO Work Phone: [facility] Work Phone: Start: 06-25-2024 End: 06-25-2024 ambulatory [facility] Start: 06-25-2024 Encounter for genera l adult medical examination without abnormal findings [facility] Start: 12-14-2017 End: 12-15-2017 Ambulatory [facility] Facility:[facility] Start: 10-19-2017 End: 10-20-2017 Ambulatory [facility] Facility:[facility] Start: 10-17-2017 End: 10-18-2017 Ambulatory [facility] Facility:[facility] Start: 08-31-2017 End: 09-01-2017 Ambulatory [facility] Facility:[facility] Start: 08-03-2017 End: 08-04-2017 Ambulatory [facility] Facility:[facility] Start: 07-14-2017 End: 07-16-2017 Evaluation and management of inpatient RASHEEDA GORDILLO Facility:[facility] Start: 07-13-2017 End: 07-14-2017 Ambulatory [facility] [place] Facility: Procedures Date Procedure Procedure Detail Performing Clinician Start: 11-01-2024 Adult depression screening assessment Dewey Ward DO Work Phone: Start: 10-04-2024 Follow-up visit Follow-up KEYUR STUART Start: 09-21-2024 Adult depression screening assessment Dewey Ward DO Work Phone: Start: 09-06-2024 Adult depression screening assessment Dewey Ward DO Work Phone: Start: 06-25-2024 Follow-up visit Follow-up DEWEY WARD Start: 06-25-2024 Adult depression screening assessment Dewey Ward DO Work Phone: Start: 07-14-2017 INSERTION OF INT FIX INTO R TIBIA, PERC APPROACH RASHEEDA GORDILLO Start: 07-14-2017 REPOSITION RIGHT TIB IA WITH INTRAMED FIX, OPEN APPROACH RASHEEDA GORDILLO Start: 07-14-2017 REPOSITION RIGHT TIB IA, EXTERNAL APPROACH RASHEEDA GORDILLO Plan of Treatment Date Care Activity Detail Author Start: 01-20-2027 DTaP,Tdap and Td Vaccines (2 - Td or Tdap) DTaP,Tdap and Td Vaccines (2 - Td or Tdap) [facility] Start: 11-01-2025 Adult BMI Screening Adult BMI Screen ing [facility] Start: 11-01-2025 Depression Screening Depression Scre ening [facility] Start: 11-01-2025 Fall Risk Screening Fall Risk Screen ing [facility] Start: 11-01-2025 Tobacco Screening Tobacco Screening [facility] Start: 10-04-2025 Adult BMI Screening Adult BMI Screen ing [facility] Start: 10-04-2025 Tobacco Screening Tobacco Screening [facility] Start: 09-21-2025 Adult BMI Screening Adult BMI Screen ing [facility] Start: 09-21-2025 Depression Screening Depression Scre ening [facility] Start: 09-21-2025 Fall Risk Screening Fall Risk Screen ing [facility] Start: 09-21-2025 Tobacco Screening Tobacco Screening [facility] Start: 09-11-2025 Adult BMI Screening Adult BMI Screen ing [facility] Start: 09-10-2025 Tobacco Screening Tobacco Screening [facility] Start: 09-07-2025 Adult BMI Screening Adult BMI Screen ing [facility] Start: 09-06-2025 Depression Screening Depression Scre ening [facility] Start: 09-06-2025 Fall Risk Screening Fall Risk Screen ing [facility] Start: 09-06-2025 Tobacco Screening Tobacco Screening [facility] Start: 06-25-2025 Adult BMI Screening Adult BMI Screen ing [facility] Start: 06-25-2025 Depression Screening Depression Scre ening [facility] Start: 06-25-2025 Fall Risk Screening Fall Risk Screen ing [facility] Start: 06-25-2025 Medicare Annual Well ness Visit Medicare Annual Wellness Visit [facility] Start: 06-25-2025 Tobacco Screening Tobacco Screening [facility] Start: 03-18-2025 Influenza vaccination Influenza Vacc ine [facility] Start: 01-03-2025 End: 01-03-2025 Patient encounter procedure 01/03/2025 11:00 AM EDT Office Visit Elizabeth Sung [facility] [address] [place] [phone] Keyur Stuart MD [address] [place] [address] [address] [place], [place] [id number] [facility] Start: 12-05-2024 End: 12-05-2024 Patient encounter procedure 12/05/2024 9:30 AM EDT Office Visit [facility] Medicine [address] [place] [address] Dewey Ward, [address], [facility] [place] [address] [facility] Start: 11-01-2024 End: 11-01-2025 XR Chest PA and Lateral X-ray chest 2 views Imaging Routine Pleural effusion, right Expected: 11/01/2024, Expires: 11/01/2025 [facility] Work Phone: Comment on above: Expected: 11/01/2024 , Expires: 11/01/2025 Start: 10-25-2024 End: 10-25-2024 Patient encounter procedure 10/25/2024 2:00 PM EDT Office Visit [facility] [address] [facility] [place] [phone] Wen Hampton, DO [address] [id number] [facility] Start: 10-15-2024 Influenza vaccination Influenza Vacc ine [facility] Comment on above: Postponed from 03/18 (Patient Refused) Start: 10-04-2024 End: 10-04-2024 Patient encounter procedure 10/04/2024 10:30 AM EDT Office Visit Elizabeth Bar [facility] On[facility] [address] [place] [phone] [place] [address] [place] [address] [address] [place] [phone] [facility] Start: 09-06-2024 End: 09-06-2024 Patient encounter procedure 09/06/2024 10:30 AM EST [facility] [address] [place] [phone] Dewey Ward, [address], [place] [id number] [facility] Start: 07-18-2024 Abdominal aortic aneurysm screening Abdominal Aortic Aneurysm (AAA) Screen [facility] Comment on above: Postponed from 10/06 (Patient Refused) Start: 07-18-2024 Administration of varicella zoster vaccine Zoster (Shingles) Vaccine (1 of 2) [facility] [employer] [facility] Comment on above: Postponed from 10/06 (Patient Refused) Start: 07-18-2024 Screening for malign ant neoplasm of colon Colon Cancer Screening 3 Year [facility] Comment on above: Postponed from 10/06 (Patient Refused) Start: 10-07-2023 Abdominal aortic aneurysm screening Abdominal Aortic Aneurysm (AAA) Screen [facility] Start: 2008 Administration of varicella zoster vaccine Zoster (Shingles) Vaccine (1 of 2) [facility] [employer] [facility] Start: 10-07-2003 Screening for malign ant neoplasm of colon Colon Cancer Screening 3 Year [facility] Start: 1977 Administration of varicella zoster vaccine Zoster (Shingles) Vaccine (1 of 2) [facility] Start: 1976 Adult BMI Screening Adult BMI Screen ing [facility] Start: 1970 Tobacco Screening Tobacco Screening [facility] Start: 1958 Tobacco Counseling Tobacco Counselin g [facility] [employer] [facility] End: 09-21-2025 Basic metabolic 2000 panel - Serum or Plasma Basic Metabolic Panel Lab Routine Hyperglycemia 1 Occurrences starting 09/21/2024 until 09/21/2025 [facility] Comment on above: 1 Occurrences starti ng 09/21/2024 until 09/21/2025 End: 09-06-2025 CBC panel - Blood by Automated count CBC without diff Lab Routine Memory loss Hot flashes 1 Occurrences starting 09/06/2024 until 09/06/2025 [facility] Comment on above: 1 Occurrences starti ng 09/06/2024 until 09/06/2025 End: 09-21-2025 CBC panel - Blood by Automated count CBC Lab Routine Severe anemia 1 Occurrences starting 09/21/2024 until 09/21/2025 [facility] Work Phone: Comment on above: 1 Occurrences starti ng 09/21/2024 until 09/21/2025 End: 10-04-2025 CBC W Auto Differential panel - Blood CBC with auto diff Lab Routine Primary myelofibrosis (CMS-HCC) 1 Occurrences starting 10/04/2024 until 10/04/2025 [facility] Work Phone: Comment on above: 1 Occurrences starti ng 10/04/2024 until 10/04/2025 End: 06-25-2025 Comprehensive metabolic 2000 panel - Serum or Plasma Comprehensive metabolic panel Lab Routine Screening for heart disease 1 Occurrences starting 06/25/2024 until 06/25/2025 [facility] Work Phone: Comment on above: 1 Occurrences starti ng 06/25/2024 until 06/25/2025 End: 09-06-2025 Cyanocobalamin vitamin b-12 Vitamin B12 Lab Routine Memory loss Hot flashes 1 Occurrences starting 09/06/2024 until 09/06/2025 [facility] Comment on above: 1 Occurrences starti ng 09/06/2024 until 09/06/2025 End: 10-04-2025 Erythropoietin (EPO), S Erythropoietin (EPO), S Lab Routine Primary myelofibrosis ([facility]-HCC) 1 Occurrences starting 10/04/2024 until 10/04/2025 [facility] Comment on above: 1 Occurrences starti ng 10/04/2024 until 10/04/2025 End: 09-21-2025 Hemoglobin A1c/Hemoglobin.total in Blood Hemoglobin A1c Lab Routine Hyperglycemia 1 Occurrences starting 09/21/2024 until 09/21/2025 [facility] Comment on above: 1 Occurrences starti ng 09/21/2024 until 09/21/2025 End: 06-25-2025 Lipid panel Lipid panel Lab Routine Screening for heart disease 1 Occurrences starting 06/25/2024 until 06/25/2025 [facility] Comment on above: 1 Occurrences starti ng 06/25/2024 until 06/25/2025 End: 09-06-2025 TSH with Reflex TSH with Reflex Lab Routine Memory loss Hot flashes 1 Occurrences starting 09/06/2024 until 09/06/2025 [facility] Work Phone: Comment on above: 1 Occurrences starti ng 09/06/2024 until 09/06/2025 Payers Date Payer Category Payer Self-pay 2024 Unknown [id number] 2023 Medicare HMO [id number] 2023 Medicare [id number] 2012 Unknown [employer] [id number] 1959 Unknown [id number] 1958 Unknown [id number] 1958 Unknown [id number] 1958 Unknown [id number] 1958 Unknown [id number] 1958 Unknown [id number] 1958 Unknown [id number] 1958 Unknown [id number] 1958 Unknown [id number] 1958 Unknown [id number] Unknown [id number] Unknown [id number] Social History Date Type Detail Facility Start: 06-25-[facility] Start: 06-25-1979 End: 09-02-2024 History of tobacco use Cigarette Smoker [facility] Start: 06-25-2024 End: 11-01-2024 Cigarettes smoked current (pack per day) - Reported 1 [facility] Start: 06-25-2024 End: 09-08-2024 Tobacco use and exposure Smokeless tobacco non-user [facility] Start: 06-26-2024 End: 11-01-2024 Alcoholic beverage intake Current drinker of alcohol (finding) [facility] Start: 06-25-2024 End: 11-01-2024 [employer] [facility] Has the [employer], or [employer] threatened to shut off services in your home in past 12Mo No [facility] Do you belong to any clubs or organizations such as hoahaoism groups, unions, fraternal or athletic groups, or school groups? Yes [facility] Are you now , , , , never or living with a partner? [facility] How often to you hav e a drink containing alcohol? 4 or more times a week [facility] How many standard dr inks containing alcohol do you have on a typical day? 3 or 4 [facility] How often do you hav e 6 or more drinks on 1 occasion? Never [facility] How hard is it for y ou to pay for the very basics like food, housing, medical care, and heating Not hard at all [facility] Do you feel stress - tense, restless, nervous, or anxious, or unable to sleep at night because your mind is troubled all the time - these days [OSQ] Not at all [facility] Start: 06-25-2024 Alcohol Comment 4 or 5 a night [facility] Start: 1960 Sex assigned at Not on file [facility] Start: 02-20-2015 End: 10-11-2024 Sex Male (finding) [facility] Start: 09-08-2024 Tobacco smoking stat [facility] Ex-smoker [facility] Start: 06-25-1979 End: 09-02-2024 History of tobacco use Current smoker [facility] Tobacco smoking stat [facility] Unknown if ever smoked [facility] Work Phone: Start: 1960 Sex Assigned At Male [facility] Goals Date Patient Goal Desired Activity /State Personal health goal Comment on above: Formatting of this n ote might be different from the original. Evaluation of progress towards goal: Current Discharge Plan; home with spouse, self care, denies needs at this time. Functional Status Date Assessment Result Facility [facility] Clinical Notes 06-25-2024 to 11-01-2024 Dewey Ward DO - 11/01/2024 9:15 AM Jone Fuentes RN - 10/04/2024 11:18 AM Spike Stuart MD - 10/04/2024 10:30 AM EDTPatimartita Ward DO - 09/21/2024 9:00 AM EST Note Date & Type Note Facility 11-01-2024 History of Presen t illness Narrative Subjective Patient ID: Penny Ordaz is a 64 y.o. male. He presents today for concerns regarding his driving and memory. He was driving to [employer] with his and was driving erratically. A concerned citizen called the police who met him at [employer]. They did check him to see if he was drinking and he had not had any alcohol. He said he was having an argument with his while he was driving and not paying attention to the road. He was allowed to continue to drive by the police. He was not cited for any traffic violation. His oncologist contacted me the other day to voice his concerns about his memory and ability to drive. He was referred to a clocksmith by Dr. Whitfield but a clocksmith was not in his network. He needs a referral to a new clocksmith. He thinks it was because of the fluid in his lungs. The following portions of the patient's history were reviewed and updated as appropriate: allergies, current medications, past family history, past medical history, past social history, past surgical history, problem list, and medication reconciliation was completed including current medication and post discharge medication. Review of Systems Constitutional: Negative. Respiratory: Negative. Cardiovascular: Negative. Neurological: Negative. Hematological: Negative. Psychiatric/Behavioral: Negative. Objective Physical Exam Vitals reviewed. Constitutional: Appearance: He is not ill-appearing or toxic-appearing. Comments: He is here alone today. His was still in bed when he left HENT: Head: Normocephalic. Cardiovascular: Rate and Rhythm: Normal rate and regular rhythm. Heart sounds: Normal heart sounds. No murmur heard. Pulmonary: Effort: Pulmonary effort is normal. No respiratory distress. Breath sounds: Normal breath sounds. No wheezing, rhonchi or rales. Abdominal: General: Bowel sounds are normal. Palpations: Abdomen is soft. Tenderness: There is no abdominal tenderness. Musculoskeletal: Cervical back: Neck supple. Lymphadenopathy: Cervical: No cervical adenopathy. Neurological: General: No focal deficit present. Mental Status: He is alert and oriented to person, place, and time. GCS: GCS eye subscore is 4. GCS verbal subscore is 5. GCS motor subscore is 6. Cranial Nerves: Cranial nerves 2-12 are intact. Motor: Motor function is intact. No tremor, seizure activity or pronator drift. Coordination: Romberg sign negative. Coordination normal. Suouzh-Aqqk-[id number] Test and Heel to Hay Test normal. Rapid alternating movements normal. Gait: Tandem walk abnormal. Gait normal. Comments: He does have difficulty walking due to a right leg fracture but denies weakness. Negative snout reflex, negative root reflex, negative glabellar tap reflex, negative grasp reflex. Positive palmomental reflex Psychiatric: Attention and Perception: Attention normal. Mood and Affect: Mood and affect normal. Speech: Speech normal. Behavior: Behavior normal. Cognition and Memory: Cognition and memory normal. Assessment/Plan Penny was seen today for discuss oncology . Diagnoses and all orders for this visit: Primary myelofibrosis (CMS-HCC) Follow-up with oncology as directed. Pleural effusion, right - X-ray chest 2 views; Future Check chest x-ray to see if he still has a pleural effusion. Would need to go see pulmonology in [place] or [facility]. I asked him to check his network to see who is in his plan. Memory loss He scored a 4 on the 6-Cit which is technically normal. He scored a 27 on the MOCA when he was here a couple months ago. His is the 1 who is telling others that he has dementia. She is not here to discuss details on why she is saying that. As far as the driving issue goes he was in an argument with his and was not paying attention to the road. The police did let him go without any citation. Neurologically he appears relatively intact. documented in this encounter [facility] 10-04-2024 History of Presen t illness Narrative Patient is here for hospital follow up to review scans and bmb with Dr. Stuart. Received the following orders: Print out order for CBC epo. F/u in 3 months. Follow up scheduled for 01/03/[address] Stuart. He is planning to call his insurance to check to see if we are in network for sure and if not he will call to cancel that follow up. He said he can see a doctor in [place] that does take his insurance if he is not able to continue to follow with Dr. Stuart. Lab orders, treatment calendar and AVS provided to patient. He verbalized understanding to instructions. Discharged in stable condition to private vehicle. documented in this encounter [facility] 10-04-2024 History of Presen t illness Narrative Images from the original note were not included. [facility] Bryan Perales M.D. Chantel Maya M.D. Kei Collazo M.D. Wendi Pang M.D. Juliette Ronquillo, PLANNING ASSISTANT-MACHINE BUNCH MAKER Diann Patel, PLANNING ASSISTANT-MACHINE BUNCH MAKER Concepción Marks, PLANNING ASSISTANT-MACHINE BUNCH MAKER Valeria Valente, PLANNING ASSISTANT-MACHINE BUNCH MAKER Rasheeda Mijares, PLANNING ASSISTANT-MACHINE BUNCH MAKER Keyur Stuart M.D. Vijay Carrington M.D. Trae Lazar M.D. Gillian Garza M.D. Joceline aLrry, [facility] Laisha Brooks, [facility] Ritu Soumya, [facility] Kim Corby, [facility] Yeny Jah, [facility] PROGRESS NOTE 10/04/24 Subjective/Interval History: The patient is a 63 y.o. male with only history is psoriasis. He denies any other past medical history. Denies any personal history of cancer. States mother had uterine cancer. States he drinks about 3-4 beers daily. And has smoked cigarettes over the last 15 years however has recently quit about 3 weeks ago. Patient presented after PCP requested he be evaluated by ER due to HG of 5.4. Patient denies notable bleeding, headaches, or confusion. He reported flu-like symptoms a couple weeks ago that have resolved. Still having hot flashes. Bulky retroperitoneal, right iliac and inguinal lymphadenopathy along with splenomegaly noted on CT abdomen pelvis. Concerns for possible lymphoma. Bone marrow biopsy August 2024 showed primary myelofibrosis. The patient's most recent hemoglobin is 7.7. He told me he is feeling better. No significant shortness of breath no night sweats or new constitutional symptoms. He told me his insurance was recently changed, he is unable to get blood draws from [facility]. Oncology History No history exists. Objective Physical Examination: Vitals: BP 127/56 Pulse 96 Temp 36.4 C (97.5 F) (Oral) Resp 16 Ht 175.3 cm (5' 9.02 ) Wt 71.3 kg (157 lb 3.2 oz) SpO2 98% BMI 23.20 kg/m Physical Exam Constitutional: Appearance: Normal appearance. He is normal weight. HENT: Head: Normocephalic and atraumatic. Nose: Nose normal. Mouth/Throat: Mouth: Mucous membranes are moist. Pharynx: Oropharynx is clear. Eyes: Conjunctiva/sclera: Conjunctivae normal. Pupils: Pupils are equal, round, and reactive to light. Cardiovascular: Rate and Rhythm: Normal rate and regular rhythm. Pulses: Normal pulses. Heart sounds: Normal heart sounds. Pulmonary: Effort: Pulmonary effort is normal. Breath sounds: Normal breath sounds. Abdominal: General: Bowel sounds are normal. Palpations: Abdomen is soft. Musculoskeletal: General: Normal range of motion. Cervical back: Normal range of motion. Skin: General: Skin is warm. Capillary Refill: Capillary refill takes less than 2 seconds. Neurological: General: No focal deficit present. Mental Status: He is alert and oriented to person, place, and time. Mental status is at baseline. Psychiatric: Mood and Affect: Mood normal. Behavior: Behavior normal. Thought Content: Thought content normal. Judgment: Judgment normal. Lines, Drains, Airways: PIV left forearm. Recent Labs No results found for this or any previous visit (from the past 24 hours). Inpatient scheduled medications: Current Outpatient Medications: cholecalciferol, vitamin D3, (VITAMIN D3) 10 mcg (400 unit) capsule, , Disp: , Rfl: melatonin 10 mg tablet, Take 1 tablet by mouth nightly., Disp: , Rfl: nystatin (MYCOSTATIN) powder, Apply 1 Application topically in the morning and 1 Application before bedtime., Disp: 30 g, Rfl: 1 rosuvastatin (CRESTOR) 10 mg tablet, Take 1 tablet (10 mg total) by mouth nightly., Disp: 30 tablet, Rfl: 11 Diagnosis Problem list: Patient Active Problem List Diagnosis Memory loss Severe anemia Lymphadenopathy, inguinal Cellulitis of right lower extremity Traumatic leg ulcer, right, with fat layer exposed (CMS-HCC) Primary myelofibrosis (CMS-HCC) Splenomegaly Assessment/Plan Impression: Primary myelofibrosis 08/2024 Splenomegaly, 16.3 cm - CT A/P IMPRESSION: Bulky retroperitoneal, right iliac, and inguinal lymphadenopathy with splenomegaly worrisome for hematologic malignancy. Correlate with laboratory markers. Consider tissue sampling. Mild nonspecific periportal edema, trace ascites, right pleural effusion. - CT Chest Mediastinal lymphadenopathy measuring up to 1.8 cm. Small right pleural effusion with adjacent subsegmental atelectatic change however difficult to exclude a small component of superimposed pneumonia. Scant right upper lobe groundglass opacities likely infectious/inflammatory in etiology. Left hemithorax interlobular septal thickening which may relate to interstitial edema however given the known lymphadenopathy a degree of pulmonary lymphoma is not excluded. Enlarged main pulmonary artery measuring up to 3.4 cm which can be seen in pulmonary hypertension. 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 overall prognosis is poor. His DIPSS score is intermediate risk. Most recent hemoglobin is 7.7. No other cytopenia. I will repeat patient's CBC and erythropoietin level this week. Consider Aranesp if his EPO level is low. The patient's seems to be a candidate for bone marrow transplant, I suggest him consider bone marrow transplant evaluation at [facility]. Transfuse to keep hemoglobin above 7. The patient told me due to his insurance change, he may have to establish care with Hematology at [facility]. Keyur Stuart M.D. [facility] [address] [place] [address] documented in this encounter [facility] [employer] [facility] 10-04-2024 Instructions Keyur Stuart MD - 10/04/2024 10:30 AM EDT Print out order for CBC epo. F/u in 3 months. [facility] enter 09-21-2024 History of Present illness Narrative Subjective Patient ID: Penny Ordaz is a 63 y.o. male. The patient is here today for discharge follow up from hospital. Transition of Care Med Rec completed? Yes Discharged medications: Medications have been reviewed and reconciled with the most recent facility discharge document. Keron presents for hospital follow up. He is feeling better. He had 4 units of PRBCs. Follow-up The following portions of the patient's history were reviewed and updated as appropriate: allergies, current medications, past family history, past medical history, past social history, past surgical history, problem list, and medication reconciliation was completed including current medication and post discharge medication. Review of Systems Objective Physical Exam Vitals reviewed. Exam conducted with a white sidewall tire buffer present (Jimenez Pritchett MS3). Constitutional: General: He is not in acute distress. Appearance: He is not ill-appearing. HENT: Head: Normocephalic. Cardiovascular: Rate and Rhythm: Normal rate and regular rhythm. Pulses: Normal pulses. Heart sounds: Normal heart sounds. No murmur heard. Pulmonary: Effort: Pulmonary effort is normal. No respiratory distress. Breath sounds: Normal breath sounds. No wheezing, rhonchi or rales. Musculoskeletal: Cervical back: Neck supple. No rigidity. Right lower leg: No edema. Left lower leg: No edema. Skin: Coloration: Skin is ashen. Neurological: General: No focal deficit present. Mental Status: He is alert and oriented to person, place, and time. Psychiatric: Mood and Affect: Mood normal. Behavior: Behavior normal. Thought Content: Thought content normal. Judgment: Judgment normal. Assessment/Plan Penny was seen today for follow-up. Diagnoses and all orders for this visit: Severe anemia - CBC; Future - Ambulatory referral to Gastroenterology (Non[facility]); Future Check CBC. He needs to have further evaluation. He is due for a colon cancer screen. No symptoms of upper GI bleeding but should consider doing an EGD. Lymphadenopathy, inguinal Follow up with oncologist as directed. Ex-cigarette smoker He quit smoking. He was congratulated for quitting. He was encouraged to continue. Hyperglycemia - Basic Metabolic Panel; Future - Hemoglobin A1c; Future Check A1c. Special screening for malignant neoplasm of colon - Ambulatory referral to Gastroenterology (Non[facility]); Future He is due for a colon cancer screening. He had Cologuard in the past but I could not find the results. He should have a colonoscopy instead because of his severe anemia. His saw the GI specialist in [place] and would like to go there. [facility] Miscellaneous Notes Special Ed Assistant called and left voicemail for patient to call office to schedule a HDFU. CXR in 4 to 6 weeks then follow up with any provider in [place] per LB. documented in this encounter [facility] 09-12-2024 Telephone encounter Note Special Ed Assistant called and left voicemail for patient to call office to schedule a HDFU. CXR in 4 to 6 weeks then follow up with any provider in [place] per [facility]. [facility] 09-10-2024 Note IR BX BONE MARROW SN GL OR MULT Pre-procedure diagnosis: See history below Post-procedure diagnosis: Same as above Assistants/resident: See the technologist's notes above Consent/pre-procedure evaluation: See below. [place] protocol timeout verification performed. Estimated blood loss: Less than 10 mL Procedure/complications: See below Radiation dosage measurements: See below and see technologist's notes above Conscious sedation: If conscious sedation was administered, preprocedure evaluation for conscious sedation was performed and documented. History: Bulky retroperitoneal and other lymphadenopathy. Splenomegaly. Anemia. Procedure: after explanation of the indications, procedure, risks, possible benefits and alternatives to the bone marrow procedure to the patient, the patient gave consent. The risks include bleeding, infection, allergic reaction, pain, damage to bone, and cardiopulmonary sedation due to conscious sedation. The patient received 150 micrograms of intravenous Fentanyl, one milligrams of intravenous Versed, and 30 minutes of [id number] intraservice time for intravenous conscious sedation by an independent, trained observer with monitoring and documentation of heart rate, blood pressure, pulse oximetry, and mental status. Fluoroscopy was used to localize the site of biopsy. The right posterior iliac area was sterilely prepped and draped utilizing maximal sterile barrier technique with cap, mask, gown, gloves, sterile field, and chlorhexidine. 1% xylocaine was administered for local anesthesia. After placement of a bone marrow needle into the posterior superior iliac bone, I was unable to aspirate any bone marrow. A core was obtained. The needle was reassembled and introduced into a slightly different location. A small amount of bone marrow aspirate was obtained. A second core was then given to the hematology personnel. The needle position was confirmed with digital spot image. There was no immediate complication from the procedure. 1 digital images, [6] mGy air kerma radiation, [0.2] minutes of fluoroscopy were obtained for the procedure. Impression: 1. Fluoroscopic guidance for posterior iliac bone marrow aspirate and biopsy without immediate complication. The amount of material was deemed sufficient by the sleep lab technologist. Finalized by Jonathan Sousa MD on 09/10/2024 2:03 PM [facility] 09-10-2024 Note IR THORACENTESIS W G UIDE RT Pre-procedure diagnosis: See history below Post-procedure diagnosis: Same as above Assistants/resident: See the technologist's notes above Consent/pre-procedure evaluation: See below. [place] protocol timeout verification performed. Estimated blood loss: Less than 10 mL Procedure/complications: See below Radiation dosage measurements: See below and see technologist's notes above Conscious sedation: If conscious sedation was administered, preprocedure evaluation for conscious sedation was performed and documented. History: pleural effusion. Procedure: after explanation of the indications, procedure, risks, benefits, and alternatives of ultrasound-guided thoracentesis to the patient, the patient gave consent. The risks that were explained include bleeding, infection, allergic reaction, pain, and damage to the lung resulting in collapse of the lung. Ultrasound was performed to verify the presence of the pleural effusion and to determine the site of puncture. Ultrasound image documents a pleural effusion. The overlying skin was sterilely prepped and draped. 1% xylocaine was administered for local anesthesia. After placement of a Yueh catheter into the posterior chest, fluid was removed. There was no immediate complication from the procedure. Impression: ultrasound-guided right thoracentesis yielded 1200 ml of serous pleural effusion without immediate complication. An ultrasound image was obtained. Finalized by Jonathan Sousa MD on 09/10/2024 2:00 PM [facility] 09-08-2024 Miscellaneous Notes Contract: 91 New AM consult for Right pleural effusion concern for malignancy To be paged out at 7am Contract: [address] Montelongo on his cell phone- consult information given to documented in this encounter [facility] 09-08-2024 Telephone encounter Note Contract: 91 New AM consult for Right pleural effusion concern for malignancy To be paged out at 7am [facility] 09-08-2024 Telephone encounter Note Contract: [address] Montelongo on his cell phone- consult information given to [facility] 09-06-2024 Miscellaneous Notes Contract: 198 re Critical Lab Call was connected to Dr Mina alberto documented in this encounter [facility] 09-06-2024 Telephone encounter Note Contract: 198 re Critical Lab [facility] 09-06-2024 Telephone encounter Note Call was connected to Dr Mina alberto [facility] 09-06-2024 History of Present illness Narrative Subjective Patient ID: Penny Ordaz is a 63 y.o. male. Keron presents today with his for concerns about memory issues. He does not think he really has any memory problems but his does. He is retired. He did graduate high school. He did not go to college. He forgets what he goes into rooms for sometimes. He will forget some things with conversations at times. He does pays his own bills and is not late on any. The pays the majority of the bills. He has not missed any appointments. He does not get lost driving. He has been having hot flashes at night. He plays solitaire and use her games on his computer and his says he will do that all day long. He has actually gained weight recently. He had labs done here in June for CV visit. He did stop smoking and drinking for a couple weeks recently but then restart it. This has frustrated his . The following portions of the patient's history were reviewed and updated as appropriate: allergies, current medications, past family history, past medical history, past social history, past surgical history, problem list, and medication reconciliation was completed including current medication and post discharge medication. Review of Systems Psychiatric/Behavioral: Negative for confusion. Objective Physical Exam Vitals reviewed. Exam conducted with a white sidewall tire buffer present ( and Jimenez Pritchett MS3). Constitutional: General: He is not in acute distress. Appearance: Normal appearance. He is normal weight. He is not ill-appearing. HENT: Head: Normocephalic. Eyes: Extraocular Movements: Extraocular movements intact. Neck: Thyroid: No thyroid mass, thyromegaly or thyroid tenderness. Cardiovascular: Rate and Rhythm: Normal rate and regular rhythm. Pulses: Normal pulses. Heart sounds: Normal heart sounds. Pulmonary: Effort: Pulmonary effort is normal. No respiratory distress. Breath sounds: Normal breath sounds. No wheezing, rhonchi or rales. Abdominal: General: Bowel sounds are normal. Palpations: Abdomen is soft. Musculoskeletal: Cervical back: Neck supple. Right lower leg: No edema. Left lower leg: No edema. Lymphadenopathy: Cervical: No cervical adenopathy. Skin: General: Skin is warm. Neurological: General: No focal deficit present. Mental Status: He is alert. Cranial Nerves: Cranial nerves 2-12 are intact. Sensory: Sensation is intact. Motor: Motor function is intact. No tremor. Gait: Gait is intact. Comments: Negative grasp, glabellar tap, snout, root, [place] and palmomental tests. Psychiatric: Attention and Perception: Attention and perception normal. Mood and Affect: Mood and affect normal. Speech: Speech normal. Behavior: Behavior normal. Behavior is cooperative. Thought Content: Thought content normal. Cognition and Memory: Cognition normal. Judgment: Judgment normal. Assessment/Plan Penny was seen today for referral. Diagnoses and all orders for this visit: Memory loss - TSH with Reflex; Future - CBC without diff; Future - Vitamin B12; Future He scored a 27 on the [place] so I doubt he has any significant cognitive deficit at this time. His fast score would be a to because he has some subjective memory loss, forgets where he puts stuff etcetera. I recommend that we monitor this for now. We will check some labs. Smoking and excessive alcohol use definitely can impact memory. Encouraged to do word and computer games. Hot flashes - TSH with Reflex; Future - CBC without diff; Future - Vitamin B12; Future Check labs Cigarette smoker Recommended to quit smoking. Can impact memory negatively. Also has many other health issues. Offered assistance but he declined. documented in this encounter [facility] 07-23-2024 Miscellaneous Notes Patient's called and stated that she feels patient is getting some dementia. He is getting violent in the evening and forgetful. She was wondering if there could be a referral for him to see Dr. Dai He needs an appointment here 1st to be screen for dementia documented in this encounter [facility] 07-23-2024 Telephone encounter Note Patient's called and stated that she feels patient is getting some dementia. He is getting violent in the evening and forgetful. She was wondering if there could be a referral for him to see Dr. Dai [facility] 07-23-2024 Telephone encounter Note He needs an appointment here 1st to be screen for dementia [facility] 06-25-2024 History of Present illness Narrative Subjective Penny Ordaz is a 63 y.o. male who presents for a Welcome to Medicare visit. The following portions of the patient's history were reviewed and updated as appropriate: Health Risk Assessment, allergies, past medical history, past surgical history, social history, family history, and immunization history Vitals: Vitals: 06/25/24 1351 BP: 102/42 Pulse: 94 Resp: 18 Temp: 36.6 C (97.9 F) SpO2: 95% Body mass index is 24.04 kg/m . History: There are no active problems to display for this patient. Past Medical History: Diagnosis Date Psoriasis Past Surgical History: Procedure Laterality Date LEG SURGERY Right Family History Problem Relation Age of Onset Diabetes Sister Heart attack Brother Social History Tobacco Use Smoking status: Every Day Current packs/day: 0.50 Average packs/day: 1 pack/day for 45.0 years (44.8 ttl pk-yrs) Types: Cigarettes Start date: 06/25/1979 Smokeless tobacco: Never Substance Use Topics Alcohol use: Yes Alcohol/week: 35.0 standard drinks of alcohol Types: 35 Cans of beer per week Comment: 4 or 5 a night Allergies: No Known Allergies Current Outpatient Medications Medication Sig Dispense Refill cholecalciferol, vitamin D3, (VITAMIN D3) 10 mcg (400 unit) capsule No current facility-administered medications for this visit. There is no immunization history on file for this patient. Functional Ability/Safety Screening 1. Was the patient's timed Get Up & Go test unsteady or longer than 30 seconds? No 2. Does the patient need help with the phone, transportation, shopping, preparing meals, housework, laundry, medications or managing money? No 3. Does the patient's home have rugs in the hallway, lack grab bars in the bathroom, lack handrails on the stairs or have poor lighting? No 4. Have you noticed any hearing difficulties? No Cognitive Screening; 6-Cit: Not Assessed declined Advanced Directives: Living Will: Yes DPA for Health Care: Yes Review of Systems: Review of Systems Constitutional: Negative. HENT: Negative. Eyes: Negative. Respiratory: Negative. Cardiovascular: Negative. Gastrointestinal: Negative. Endocrine: Negative. Genitourinary: Negative. Musculoskeletal: Positive for arthralgias (Occasional mild right ankle pain where he broke his ankle). Skin: Negative. Allergic/Immunologic: Negative. Neurological: Negative. Hematological: Negative. Psychiatric/Behavioral: Negative. Objective Physical Exam Vitals reviewed. Constitutional: General: He is not in acute distress. Appearance: He is normal weight. He is not ill-appearing. HENT: Head: Normocephalic. Right Ear: Hearing, tympanic membrane, ear canal and external ear normal. Left Ear: Hearing, tympanic membrane, ear canal and external ear normal. Nose: Nose normal. Mouth/Throat: Lips: [place]. Mouth: Mucous membranes are moist. Dentition: Abnormal dentition (edentulous). Tongue: No lesions. Palate: No mass and lesions. Pharynx: Oropharynx is clear. Uvula midline. No pharyngeal swelling. Eyes: General: No scleral icterus. Extraocular Movements: Extraocular movements intact. Conjunctiva/sclera: Conjunctivae normal. Neck: Vascular: No carotid bruit. Cardiovascular: Rate and Rhythm: Normal rate and regular rhythm. Heart sounds: Normal heart sounds. No murmur heard. Pulmonary: Effort: Pulmonary effort is normal. No respiratory distress. Breath sounds: Normal breath sounds. No wheezing, rhonchi or rales. Abdominal: General: Bowel sounds are normal. There is no distension. Palpations: Abdomen is soft. There is no mass. Tenderness: There is no abdominal tenderness. There is no right CVA tenderness, left CVA tenderness, guarding or rebound. Hernia: No hernia is present. Genitourinary: Comments: Declined Musculoskeletal: Cervical back: Neck supple. Right lower leg: No edema. Left lower leg: No edema. Lymphadenopathy: Cervical: No cervical adenopathy. Skin: General: Skin is warm and dry. Neurological: General: No focal deficit present. Mental Status: He is alert and oriented to person, place, and time. Cranial Nerves: Cranial nerves 2-12 are intact. Gait: Gait is intact. Psychiatric: Attention and Perception: Attention normal. Mood and Affect: Mood and affect normal. Speech: Speech normal. Behavior: Behavior normal. Behavior is cooperative. Thought Content: Thought content normal. Cognition and Memory: Cognition normal. Judgment: Judgment normal. Assessment/Plan Encounter Diagnoses Name Primary? Welcome to Medicare preventive visit Yes Screening for depression Screening for heart disease Colon cancer screening declined Prostate cancer screening declined Cigarette smoker Health maintenance discussed. Depression screen was negative. At least 3 minute spent administering and discussing. He declined 6-CIT evaluation. He has advanced directives in place. He declined lung cancer screen. We discussed various tips to quit smoking. He has cut back to half a pack a day. He was congratulated on that and encouraged to continue smoking cessation. He declined medications. Least 3 minute spent discussing. He does declined colon cancer screening and prostate cancer screening. Recheck in 1 year. documented in this encounter [facility] Evaluation note Diagnosis Welcome to Medicare preventive visit- Primary Screening for depression Screening for heart disease Screening for other and unspecified cardiovascular conditions Colon cancer screening declined Prostate cancer screening declined [facility] Diagnosis Memory loss- Primary Hot flashes Cigarette smoker Tobacco use disorder documented [facility] this [facility] Diagnosis Severe anemia- Primary Lymphadenopathy, inguinal Ex-cigarette smoker Personal history of tobacco use, presenting hazards to health Hyperglycemia Other abnormal glucose Special screening for malignant neoplasm of colon Special screening for malignant neoplasms, colon documented in this encounter [facility] assessment information available [facility] Work Phone: Evaluation note* Diagnosis Severe anemia- Primary [facility] Diagnosis 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 anemia Lymphadenopathy, inguinal Splenomegaly documented [facility] Diagnosis 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 Pleural effusion, right Unspecified pleural effusion Memory loss documented in this encounter [facility] filedocumented in this encounter [facility] filedocumented in this encounter [facility] filedocumented in this encounter [facility]ed in this [facility] filedocumented in this encounter [facility] filedocumented in this encounter [facility] filedocumented in this encounter [facility] filedocumented in this [facility] filedocumented in this [facility] Summary Purpose Family History No Family History Records FoundNo Family History Records FoundNo Family History Records FoundNo Family History Records FoundNo Family History Records FoundNo Family History Records FoundNo Family History Records Found Advance Directives Date Activated Date Inactivated Comments 09/08/2024 1:29 AM Date Activated Date Inactivated Comments 09/08/2024 1:29 AM 09/12/2024 5:34 PM Date Activated Date Inactivated Comments 09/08/2024 1:29 AM 09/12/2024 5:34 PM Advance Directive Response Recorded Date/ Time Advance Directives No September 24 025 2:06pm Chief Complaint and Reason for Visit Chief Complaint Admit Date J44.9 September 26, 2024 2:5 1pm J44.9 September 26, 2024 6:1 0pm Chief Complaint Admit Date J44.9 September 26, 2024 2:5 1pm J44.9 September 26, 2024 6:1 0pm Unknown October 09, 2024 3:4 6pm Additional Source Comments (unrecognized sect ion and content) No Status Records FoundNo Status Records FoundNo Status Records FoundNo Status Records FoundNo Status Records FoundNo Status Records FoundNo Status Records Found INFORMATION SOURCE (unrecogn ized section and content) DATE CREATED AUTHOR 01/04/2018 [facility] DATE CREATED AUTHOR AUTHOR'S ORGANIZ ATION 01/10/2018 [facility] DATE CREATED AUTHOR AUTHOR'S ORGANIZ ATION 09/19/2020 [facility] DATE CREATED AUTHOR AUTHOR'S ORGANIZ ATION 09/22/2024 [facility] DATE CREATED AUTHOR AUTHOR'S ORGANIZ ATION 09/23/2024 [facility] DATE CREATED AUTHOR AUTHOR'S ORGANIZ ATION 2024 [facility] DATE CREATED AUTHOR AUTHOR'S ORGANIZ ATION 10/14/2024 [facility] Care Teams (unrecognized sec tion and content) Cost Control Analyst Relationship Specialty Start Date End Date Dewey Ward DO [address] [facility], [place] [address] PCP - General Family Medicine 10/10/23 Cost Control Analyst Relationship Specialty Start Date End Date Dewey Ward DO [address] [place] [address] PCP - General Family Medicine 10/10/23 Cost Control Analyst Relationship Specialty Start Date End Date LuciathomasDewey lanier DO [address] [place] [address] PCP - General Family Medicine 10/10/23 Cost Control Analyst Relationship Specialty Start Date End Date Dewey Ward DO [address] [place] [address] PCP - General Family Medicine 10/10/23 Cost Control Analyst Relationship Specialty Start Date End Date LuciathomasDewey lanier DO [address], [place] [address] PCP - General Family Medicine 10/10/23 Cost Control Analyst Relationship Specialty Start Date End Date Dewey Ward DO [address] [place] [address] PCP - General Family Medicine 09/07/24 Cost Control Analyst Relationship Specialty Start Date End Date LuciathomasDewey lanier DO [address], [place] [address] PCP - General Family Medicine 09/07/24 Team Status: Active Member Role Status Dates Dewey Ward DO Primary Care Provider Active Team Status: Inactive Member Role Status Dates Dewey Ward DO Primary Care Provide r, Attending Provider Active Start: September 26, 2024 End: September 26, 2024 Team Status: Active Member Role Status Dates Dewey Ward DO Primary Care Provide r, Other Provider Active Start: September 26, 2024 Rasheeda Horn MD Attending Provider Active Start: September 26, 2024 Cost Control Analyst Relationship Specialty Start Date End Date Dewey Ward DO [address], [place] [address] PCP - General Family Medicine 09/07/24 Cost Control Analyst Relationship Specialty Start Date End Date Dewey Ward DO [address] [place] [address] PCP - General Family Medicine 09/07/24 Cost Control Analyst Relationship Specialty Start Date End Date Dewey Ward DO [address], [place] [address] PCP - General Family Medicine 09/07/24 Team Status: Inactive Member Role Status Dates Martita Hopper MD Attending Provider Active St art: October 09, 2024 End: October 09, 2024 Cost Control Analyst Relationship Specialty Start Date End Date Dewey Ward DO [address], [place] [address] PCP - General Family Medicine 09/07/24 Reason for Visit (unrecogniz ed section and content) Reason Comments Follow-up Reason Comments Referral Reason Onset Date Comments CRITICAL LAB 09/06/2024 Reason Onset Date Comments Consult 09/08/2024 Right pleural ef fusion concern for malignancy Reason Comments [facility] and discussion about referral Reason Comments discuss oncology Goals (unrecognized section and content) Goals may be documented in a n alternate section FOR RECORDS PERTAINING TO PATIENTS WHO ARE OR HAVE BEEN ENROLLED IN A CHEMICAL DEPENDENCY/SUBSTANCEABUSE PROGRAM, SOME INFORMATION MAY BE OMITTED. This clinical summary was aggregated from multiple sources. Caution should be exercised in using it in the provision of clinical care. This summary normalizes information from multiple sources, and as a consequence, information in this document may materially change the coding, format and clinical context of patient data. In addition, data may be omitted in some cases. CLINICAL DECISIONS SHOULD BE BASED ON THE PRIMARY CLINICAL RECORDS. [facility] [employer] [facility]. provides no warranty or guarantee of the accuracy or completeness of information in this document.
--- NOTE | 2024-11-06 08:05 | XR_ITS ---
The [address] [address] Patient Name: PENNY MCQUEEN MRN: [id number] date: 1960 Sex: M Assigned Patient Location: [facility] Current Patient Location: [facility] Accession/Order Number: [id number] Exam Date: 11/06/2024 09:22 Report Date: 11/06/2024 09:23 At the request of: LOUIS WARD Procedure: XR chest 2V Plain film chest 2 view HISTORY: Shortness of breath. COMPARISON: None FINDINGS: SUPPORT DEVICES: None POSTSURGICAL CHANGES: None HEART: Within normal limits PULMONARY JUDD: Within normal limits MEDIASTINUM: Unremarkable LUNGS AND PLEURA: No acute lung process, pleural effusion or pneumothorax identified. BONY STRUCTURES: Intact ADDITIONAL FINDINGS None XR/XR chest 2V IMPRESSION: No acute process. No pleural effusion. Impression dictated by: Trae Reyes M.D.11/06/2024 9:23 AM Dictation Location: [facility] Electronically authenticated by: [id number] Y Date: 11/06/2024 09:23
== END 2024-11-06 08:03 | disposition home or self-care (01) ==
LOC: RAD 08:02
PROVIDERS: PCP Family Medicine; Visit Provider Family Medicine
DX: J90 Pleural effusion, not elsewhere classified (principal)
CPT/HCPCS: 71046

== ENCOUNTER 2024-11-14 07:42 | Outpatient (RCR) | payer OTHER, SELFPAY ==
[2024-10-18 08:50] LABS: Mean Corpuscular HGB Conc 32.4 g/dL (29.9-35.2); Mean Corpuscular Hemoglobin 29.6 pg (25.9-34.0); Mean Corpuscular Volume 91.4 fL (80.0-94.0); Mean Platelet Volume 11.5 fL (9.5-13.5); Platelet Count 181 10^3/uL (150-450); Red Blood Count 2.33 10^6/uL (4.70-6.10); Red Cell Distribution Width 20.6 % (11.0-15.0); White Blood Count 4.2 10^3/uL (4.0-11.0)
[2024-10-18 08:58] LABS: Hematocrit 21.3 % (42.0-54.0); Hemoglobin 6.9 g/dL (14.0-18.0)
--- NOTE | 2024-10-18 09:01 | PC.NURSE ---
Lab called with critical HGB 6.[address] Hopper notified via [facility] EMR task. Awaiting reply
[2024-10-18 09:13] LABS: Anion Gap 14.6; BUN Creatinine Ratio 9.4; Calcium 8.5 mg/dL (8.5-10.1); Carbon Dioxide 26.1 mmol/L (21.0-32.0); Chloride 103 mmol/L (98-107); Estimated GFR (African America >60 (>=60 mL/min/1.73m^2); Estimated GFR (Non-African Ame >60 (>=60 mL/min/1.73m^2); Glucose 96 mg/dL (74-106); Potassium 4.7 mmol/L (3.5-5.1); Sodium 139 mmol/L (136-145)
[2024-10-18 09:20] LABS: Band Neutrophils Absolute 0.5 10^3/uL (0.0-0.3); Basophils Abs Manual 0.04 10^3/uL (0.00-0.10); Blast Absolute Manual 0.08; Lymphocytes Absolute Manual 0.84 10^3/uL (1.20-3.80); Metamyelocytes Absolute Manual 0.16; Monocytes Absolute Manual 0.08 10^3/uL (0.30-0.80); Segmented Neut Absolute Manual 2.43 10^3/uL (1.4-6.5)
[2024-10-18 09:21] LABS: Anisocytosis 2+
[2024-10-18 09:22] LABS: Ovalocytes 2+
[2024-10-19 10:52] VITALS: BP 147/69; PULSE 93; TEMP 36.8; O2SAT 98
[2024-10-19] MEDS: ACETAMINOPHEN 325 MG TABLET 650 MG PO (11:30)
[2024-10-19 11:34] VITALS: BP 147/69; PULSE 93; TEMP 36.8; O2SAT 99
[2024-10-19] MEDS: DIPHENHYDRAMINE HCL 25 MG CAPSULE PO (11:41)
[2024-10-19 11:50] VITALS: BP 113/61; PULSE 88; TEMP 36.7
--- NOTE | 2024-10-19 11:58 | PC.NURSE ---
tolerating transfusion without any s/s of reaction, rate increaased to 240 ml hr
[2024-10-19 14:16] VITALS: BP 119/59; PULSE 85; TEMP 36.9; O2SAT 94
[2024-10-30 13:48] LABS: Hemoglobin 7.2 g/dL (14.0-18.0); Mean Corpuscular Hemoglobin 29.5 pg (25.9-34.0); Mean Corpuscular Volume 92.2 fL (80.0-94.0); Mean Platelet Volume 10.1 fL (9.5-13.5); Platelet Count 134 10^3/uL (150-450); Red Blood Count 2.44 10^6/uL (4.70-6.10); Red Cell Distribution Width 20.4 % (11.0-15.0); White Blood Count 3.8 10^3/uL (4.0-11.0)
[2024-10-30 13:56] LABS: BUN Creatinine Ratio 8.5; Calcium 8.9 mg/dL (8.5-10.1); Carbon Dioxide 28.5 mmol/L (21.0-32.0); Chloride 105 mmol/L (98-107); Estimated GFR (African America >60 (>=60 mL/min/1.73m^2); Estimated GFR (Non-African Ame >60 (>=60 mL/min/1.73m^2); Glucose 113 mg/dL (74-106); Potassium 4.5 mmol/L (3.5-5.1); Sodium 142 mmol/L (136-145)
[2024-10-30 13:57] LABS: Hematocrit 22.5 % (42.0-54.0)
[2024-10-30] MEDS: EPOETIN ALFA 20,000 UNIT/2 ML VIAL 40000 UNIT SUBQ (14:15)
[2024-10-30 14:17] LABS: Band Neutrophils Absolute 0.1 10^3/uL (0.0-0.3); Eosinophils Absolute Manual 0.03 10^3/uL (0.00-0.70); Lymphocytes Absolute Manual 1.14 10^3/uL (1.20-3.80); Monocytes Absolute Manual 0.15 10^3/uL (0.30-0.80); Myelocytes Absolute Manual 0.03; Segmented Neut Absolute Manual 2.35 10^3/uL (1.4-6.5)
[2024-10-30 14:18] LABS: Ovalocytes 1+
[2024-10-30 14:19] LABS: Anisocytosis 2+
[2024-11-13 12:45] VITALS: BP 144/70; PULSE 100; TEMP 36.6; O2SAT 96
[2024-11-13 13:03] LABS: Mean Corpuscular HGB Conc 33.5 g/dL (29.9-35.2); Mean Corpuscular Hemoglobin 30.8 pg (25.9-34.0); Mean Corpuscular Volume 91.9 fL (80.0-94.0); Mean Platelet Volume 11.5 fL (9.5-13.5); Platelet Count 211 10^3/uL (150-450); Red Blood Count 1.98 10^6/uL (4.70-6.10); Red Cell Distribution Width 23.4 % (11.0-15.0); White Blood Count 4.4 10^3/uL (4.0-11.0)
[2024-11-13 13:13] LABS: Hematocrit 18.2 % (42.0-54.0); Hemoglobin 6.1 g/dL (14.0-18.0)
[2024-11-13 13:18] LABS: Alanine Aminotransferase 17 U/L (16-63); Albumin Level 3.7 g/dL (3.4-5.0); Alkaline Phosphatase 82 U/L (46-116); Anion Gap 13.9; Aspartate Amino Transferase 16 U/L (15-37); BUN Creatinine Ratio 9.1; Bilirubin Total 0.9 mg/dL (0.2-1.0); Calcium 8.6 mg/dL (8.5-10.1); Carbon Dioxide 26.3 mmol/L (21.0-32.0); Chloride 104 mmol/L (98-107); Estimated GFR (African America >60 (>=60 mL/min/1.73m^2); Estimated GFR (Non-African Ame >60 (>=60 mL/min/1.73m^2); Globulin 3.8 g/dL; Glucose 102 mg/dL (74-106); Potassium 4.2 mmol/L (3.5-5.1); Sodium 140 mmol/L (136-145); Total Protein 7.5 g/dL (6.4-8.2)
[2024-11-13] MEDS: EPOETIN ALFA-EPBX 20,000 UNIT/ML VIAL 40000 UNIT SUBQ (13:35)
[2024-11-13 13:42] LABS: Basophils Abs Manual 0.13 10^3/uL (0.00-0.10); Blast Absolute Manual 0.13; Lymphocytes Absolute Manual 0.96 10^3/uL (1.20-3.80); Monocytes Absolute Manual 0.17 10^3/uL (0.30-0.80); Myelocytes Absolute Manual 0.04
[2024-11-13 13:43] LABS: Anisocytosis 3+; Segmented Neut Absolute Manual 2.94 10^3/uL (1.4-6.5)
[2024-11-14 10:56] VITALS: BP 145/71; PULSE 99; TEMP 36.9; O2SAT 95
[2024-11-14] MEDS: ACETAMINOPHEN 325 MG TABLET 650 MG PO (11:05)
[2024-11-14] MEDS: DIPHENHYDRAMINE HCL 25 MG CAPSULE PO (11:06)
[2024-11-14] MEDS: 0.9 % SODIUM CHLORIDE 250 ML 10 ML IV (11:07)
[2024-11-14 11:18] VITALS: BP 145/71; PULSE 102; TEMP 36.9; O2SAT 94
--- NOTE | 2024-11-14 11:40 | PC.NURSE ---
spo2 88% attempted to reposition probe to another finger, had patient take some deep breaths, within 1 minute spo2 up to 94%
--- NOTE | 2024-11-14 11:45 | PC.NURSE ---
1135 tolerating infusion without s/s of reaction, increased rate to 240 ml hr. offered patient food, declines, drinking water
[2024-11-14 12:50] VITALS: BP 128/64; PULSE 82; TEMP 37; O2SAT 92
== END 2024-11-14 23:59 | disposition home or self-care (01) ==
LOC: HEMC 07:42
PROVIDERS: PCP Family Medicine; Visit Provider Internal Medicine Hematology & Oncology
DX: D46.21 Refractory anemia with excess of blasts 1 (principal); D75.81 Myelofibrosis; Z87.891 Personal history of nicotine dependence; R16.1 Splenomegaly, not elsewhere classified; J90 Pleural effusion, not elsewhere classified
CPT/HCPCS: 36415; 36430; 80048; 80053; 85007; 85027; 86850; 86900; 86901; 86923; 96372; 99211; G0463; J0885; P9038; Q5106

== ENCOUNTER 2024-11-16 12:37 | Outpatient (OUT) | payer OTHER, SELFPAY ==
--- NOTE | 2024-11-16 12:40 | CT_ITS ---
The [address] [address] Patient Name: PENNY MCQUEEN MRN: [id number] date: 1960 Sex: M Assigned Patient Location: CT Current Patient Location: CT Accession/Order Number: [id number] Exam Date: 11/16/2024 14:28 Report Date: 11/16/2024 14:34 At the request of: KEISHA RICE MD Procedure: CT abdomen pelvis w con CT CHEST, ABDOMEN AND PELVIS WITH INTRAVENOUS CONTRAST: CLINICAL HISTORY: Chest 11/06/2024 COMPARISON: None TECHNIQUE: TECHNIQUE: Spiral images were obtained through the chest, abdomen and pelvis following the administration of IV contrast. This CT exam was performed using one or more following dose reduction techniques: Automated exposure control, adjustment of the mA and/or kV according to patient size, or use of iterative reconstruction technique. FINDINGS: CT chest: Mediastinum:Thoracic aorta appears normal in caliber. Pulmonary trunk appears nondilated. Cardiomegaly without pericardial effusion. Partially calcified mediastinal lymph nodes. Several prominent to enlarged mediastinal lymph nodes are present largest involving the prevascular space measuring 1.3 cm in short axis. The esophagus is grossly unremarkable. Lungs:Moderate right-sided pleural effusion with compressive atelectasis. Left basilar atelectasis with trace pleural effusion. No consolidation or pneumothorax. Calcified granulomas. Soft tissues/Bones: No acute findings. Osseous structures demonstrate degenerative change. CT abdomen and pelvis: Organs:Liver and splenic granulomas. Splenomegaly measuring approximately 18 cm.[Gallbladder portal vein pancreas and adrenal glands appear unremarkable. No enhancing renal mass or hydronephrosis. Abdominal aorta normal caliber. GI: Stomach is grossly unremarkable. Small bowel appears nondilated. Appendix is normal. No acute colonic abnormality.[ Pelvis:[Urinary bladder and prostate gland appear unremarkable.] Peritoneum/Retroperitoneum:Small amount of free fluid is seen within the pelvis. No free air. Multiple prominent retroperitoneal lymph nodes are present extending along the iliac chains.[Additional prominent lymph nodes are seen. Abd wall/Bones:Abdominal wall intact. No acute process. Osseous structures demonstrate degenerative change.[ CT/CT chest w con IMPRESSION: Prominent to enlarged lymph nodes involving the chest abdomen and pelvis with associated splenomegaly. Underlying lymphoma cannot BE excluded. Moderate right and trace left pleural effusions. There is associated cardiomegaly suggesting underlying CHF. Impression dictated by: Miguel Ángel Arevalo Jr., D.O. 11/16/2024 2:34 PM Dictation Location: [place] [address] Electronically authenticated by: [id number] Y Date: 11/16/2024 14:34
--- NOTE | 2024-11-16 12:40 | CT_ITS ---
[address] [address] Patient Name: PENNY MCQUEEN MRN: [id number] date: 1960 Sex: M Assigned Patient Location: CT Current Patient Location: CT Accession/Order Number: [id number] Exam Date: 11/16/2024 14:28 Report Date: 11/16/2024 14:34 At the request of: KEISHA RICE MD Procedure: CT abdomen pelvis w con CT CHEST, ABDOMEN AND PELVIS WITH INTRAVENOUS CONTRAST: CLINICAL HISTORY: Chest 11/06/2024 COMPARISON: None TECHNIQUE: TECHNIQUE: Spiral images were obtained through the chest, abdomen and pelvis following the administration of IV contrast. This CT exam was performed using one or more following dose reduction techniques: Automated exposure control, adjustment of the mA and/or kV according to patient size, or use of iterative reconstruction technique. FINDINGS: CT chest: Mediastinum:Thoracic aorta appears normal in caliber. Pulmonary trunk appears nondilated. Cardiomegaly without pericardial effusion. Partially calcified mediastinal lymph nodes. Several prominent to enlarged mediastinal lymph nodes are present largest involving the prevascular space measuring 1.3 cm in short axis. The esophagus is grossly unremarkable. Lungs:Moderate right-sided pleural effusion with compressive atelectasis. Left basilar atelectasis with trace pleural effusion. No consolidation or pneumothorax. Calcified granulomas. Soft tissues/Bones: No acute findings. Osseous structures demonstrate degenerative change. CT abdomen and pelvis: Organs:Liver and splenic granulomas. Splenomegaly measuring approximately 18 cm.[Gallbladder portal vein pancreas and adrenal glands appear unremarkable. No enhancing renal mass or hydronephrosis. Abdominal aorta normal caliber. GI: Stomach is grossly unremarkable. Small bowel appears nondilated. Appendix is normal. No acute colonic abnormality.[ Pelvis:[Urinary bladder and prostate gland appear unremarkable.] Peritoneum/Retroperitoneum:Small amount of free fluid is seen within the pelvis. No free air. Multiple prominent retroperitoneal lymph nodes are present extending along the iliac chains.[Additional prominent lymph nodes are seen. Abd wall/Bones:Abdominal wall intact. No acute process. Osseous structures demonstrate degenerative change.[ CT/CT abdomen pelvis w con IMPRESSION: Prominent to enlarged lymph nodes involving the chest abdomen and pelvis with associated splenomegaly. Underlying lymphoma cannot BE excluded. Moderate right and trace left pleural effusions. There is associated cardiomegaly suggesting underlying CHF. Impression dictated by: Miguel Ángel Arevalo Jr., D.O. 11/16/2024 2:34 PM Dictation Location: [place] [address] Electronically authenticated by: [id number] Y Date: 11/16/2024 14:34
== END 2024-11-16 12:38 | disposition home or self-care (01) ==
LOC: CT 12:37
PROVIDERS: PCP Family Medicine; Visit Provider Internal Medicine Hematology & Oncology
DX: R16.1 Splenomegaly, not elsewhere classified (principal); D75.81 Myelofibrosis; D46.21 Refractory anemia with excess of blasts 1; J90 Pleural effusion, not elsewhere classified
CPT/HCPCS: 36430; 71260; 74177; Q9967

== ENCOUNTER 2024-12-06 08:02 | Outpatient (OUT) | payer OTHER, SELFPAY ==
--- OUTSIDE RECORDS SUMMARY | 2024-11-27 07:30 | XMS_ITS ---
Author Organization The [facility] in [place] Address [address] [place] [address] Care Team Providers Care Streetcar Starter Name Role Phone Patrick Enriquez DOnis Primary Care Provider Unavail Martita Howell Unavailable [phone] REASON FOR VISIT MD Encounters Encounter Location Date Provider Diagnosis [facility] [address] [place] [phone] 11/27/2024 Martita Hopper Plan Of Treatment Next Appt Details Provider Name:Martita Hopper , 12/11/2024 01:00:00 PM, [address] [place] [address], [phone], Provider Name:Martita Hopper , 12/18/2024 01:00:00 PM, [address] [place] [address], [phone], Provider Name:Martita Hopper , 12/25/2024 01:15:00 PM, [address] [place] [address], [phone], Provider Name:Martita Hopper , 12/25/2024 01:30:00 PM, [address] [place] [address], [phone], Progress Notes * PENNY MCQUEEN RDOB:1960 (64 yo M)Acc No.[id number]:11/27/2024 UNLOCKED PROGRESS NOTE Progress Notes Patient: PENNY MACHADO Provider: Sherry Hopper M.D. :1960 A ge:64 Y S ex:Male Date:11/27/2024 Address:[address], [id number] Pcp:Dewey Enriquez DO Subjective: * Chief Complaints: * 1 . MD. * Medical History: Objective: * Vitals: Assessment: Plan: * Treatment: * * Electronic signature of Bia Hopper MD, [id number] on 12/06/2024 at 08:06 AM EDT Sign off status: Pending Visit Status: P EN (Pending) * Provider: Sherry Hopper M.D. Date: 11/27/2024 Generated for Dorota lanier/Axel/Ramasmitting on: 0 12/06/2024 08:06 AM EDT
--- OUTSIDE RECORDS SUMMARY | 2024-11-27 07:45 | XMS_ITS ---
Author Organization The [facility] in [place] Address [address] [place] [address] Care Team Providers Care Men'S Leather Dress Belt Maker Name Role Phone Luciathomasyannick YOUNG Dewey Primary Care Provider Unavail Martita Howell Unavailable [phone] REASON FOR VISIT CS30 Encounters Encounter Location Date Provider Diagnosis [facility] [address] [place] [phone] 11/27/2024 Martita Hopper Plan Of Treatment Next Appt Details Provider Name:Martita Hopper , 12/11/2024 01:00:00 PM, [address] [place] [address], [phone], Provider Name:Martita Hopper , 12/18/2024 01:00:00 PM, [address] [place] [address], [phone], Provider Name:Martita Hopper , 12/25/2024 01:15:00 PM, [address] [place] [address], [phone], Provider Name:Martita Hopper , 12/25/2024 01:30:00 PM, [address] [place] [address], [phone], Progress Notes * PENNY MCQUEEN RDOB:1960 (64 yo M)Acc No.[id number]:11/27/2024 UNLOCKED PROGRESS NOTE Progress Note Patient: PENNY MACHADO Provider: Sherry Hopper M.D. :1960 A ge:64 Y S ex:Male Date:11/27/2024 Address:[address], [id number] Pcp:Dewey Enriquez DO Subjective: * Chief Complaints: * 1 . CS30. * Medical History: Objective: * Vitals: Assessment: Plan: * Treatment: * * Electronic signature of Bia Hopper MD, [id number] on 12/06/2024 at 08:06 AM EDT Sign off status: Pending Visit Status: P EN (Pending) * Provider: Sherry Hopper M.D. Date: 0 11/27/2024 Generated for Dorota lanier/Axel/Ramasmitting on: 0 12/06/2024 08:06 AM EDT
--- OUTSIDE RECORDS SUMMARY | 2024-12-04 09:00 | XMS_ITS ---
Author Organization The [facility] in [place] Address [address] [place] [address] Care Team Providers Care Service Desk Associate Name Role Phone Mina YOUNG Dewey Primary Care Provider Unavail Martita Howell Unavailable [phone] REASON FOR VISIT CS30 Encounters Encounter Location Date Provider Diagnosis [facility] [address] [place] [phone] 12/04/2024 Martita Hopper Plan Of Treatment Next Appt Details Provider Name:Martita Hopper , 12/11/2024 01:00:00 PM, [address] [place] [address], [phone], Provider Name:Martita Hopper , 12/18/2024 01:00:00 PM, [address] [place] [address], [phone], Provider Name:Martita Hopper , 12/25/2024 01:15:00 PM, [address] [place] [address], [phone], Provider Name:Martita Hopper , 12/25/2024 01:30:00 PM, [address] [place] [address], [phone], Progress Notes * PENNY MCQUEEN RDOB:1960 (64 yo M)Acc No.[id number]:12/04/2024 UNLOCKED PROGRESS NOTE Progress Note Patient: PENNY MACHADO Provider: Sherry Hopper M.D. :1960 A ge:64 Y S ex:Male Date:12/04/2024 Address:[address], [id number] Pcp:Dewey Enriquez DO Subjective: * Chief Complaints: * 1 . CS30. * Medical History: Objective: * Vitals: Assessment: Plan: * Treatment: * * Electronic signature of Bia Hopper MD, [id number] on 12/06/2024 at 08:06 AM EDT Sign off status: Pending Visit Status: P EN (Pending) * Provider: Sherry Hopper M.D. Date: 0 12/04/2024 Generated for Dorota lanier/Axel/Ramasmitting on: 0 12/06/2024 08:06 AM EDT
--- OUTSIDE RECORDS SUMMARY | 2024-12-05 09:30 | XMS_ITS | Encounter Summary ---
Author Organization [facility] tem Address [facility] [place]-[id number] [address] [place] [address] Care Team Providers Care Bituminous Distributor Operator Name Role Phone Dewey Enriquez DO Primary Care Provider [phone] Reason for Visit * Reason Comments Follow-up 1 month Encounter Details Date Type Department Care Team (Late st Contact Info) Description 12/05/2024 9:30 AM EDT Office Visit [facility] Internal Medicine - Family Medicine [address] [place] [address] Dewey Enriquez DO [address] [place] [address] Pleural effusion, right (Primary Dx); Primary myelofibrosis (CMS-HCC) Social History Tobacco Use Types Packs/Day Years Used Date Smoking Tobacco: Former Cigarettes 1 45.2 1 08/26/1978 - 09/02/2024 Smokeless Tobacco: Never Alcohol Use Standard Drinks/Week Comments Yes 31 (1 standard drink = 0.6 oz pu re alcohol) 1 a night [facility] Utilities Answer Date Recorded In the past 12 months has [employer], gas, oil, or water company threatened to shut off services in your home? No 09/08/2024 Social Connection and Isolat ion Panel [NHANES] Answer Date Recorded In a typical week, how many times do you talk on the phone with family, friends, or neighbors? Twice a week 06/25/2024 How often do you get togethe r with friends or relatives? Twice a week 06/25/2024 How often do you attend [facility] or caodaism services? Never 06/25/2024 Do you belong to any clubs o r organizations such as islam groups, unions, fraternal or athletic groups, or school groups? Yes 06/25/2024 How often do you attend meet ings of the clubs or organizations you belong to? More than 4 times per year 06/25/2024 Are you , , di vorced, , never , or living with a partner? 06/25/2024 AUDIT-C Answer Date Recorded Q1: How often do you have a drink containing alcohol? 4 or more times a week 06/25/2024 Q2: How many drinks containi ng alcohol do you have on a typical day when you are drinking? 3 or 4 Q3: How often do you have si x or more drinks on one occasion? Never 06/25/2024 Overall Financial Resource Strain (CARDIA) Answe r Date Recorded How hard is it for you to pa y for the very basics like food, housing, medical care, and heating? Not hard at all 06/25/2024 PHQ-2 Answer Date Recorded Total Score 0 12/05/2024 [facility] - Occupational Stress Questionnaire Answer Date Recorded Do you feel stress - tense, restless, nervous, or anxious, or unable to sleep at night because your mind is troubled all the time - these days? Not at all 06/25/2024 Exercise Vital Sign Answer Date Recorde d On average, how many days pe r week do you engage in moderate to strenuous exercise (like a brisk walk)? 2 days 06/25/2024 On average, how many minutes do you engage in exercise at this level? 10 min 06/25/2024 PRAPARE - Transportation Answer Date Re corded In the past 12 months, has l ack of transportation kept you from medical appointments or from getting medications? No 08/19 In the past 12 months, has l ack of transportation kept you from meetings, work, or from getting things needed for daily living? No 09/08/2024 Housing Instability Answer Date Recorde d Are you worried or concerned that in the next two months you may not have stable housing that you own, rent or stay in as a part of a household? No 09/08/2024 Childcare Answer Date Recorded Do problems getting child ca re make it difficult for you to work or study? No 06/25/2024 Employment Answer Date Recorded Do you need help finding a [place] [employer] career center and/or a training program? No 06/25/2024 Hunger Screening Answer Date Recorded Within the past 12 months we worried whether our food would run out before we got money to buy more. Never True 12/05/2024 Within the past 12 months th e food we bought just didn't last and we didn't have money to get more. Never True 12/05/2024 Purpose - Life Answer Date Recorded I have a purpose and direction in my life. Stron gly Agree 06/25/2024 Sex and Gender Information Value Date Recorded Sex Assigned at Not on file Legal Sex Male 11:28 AM EDT Gender Identity Not on file Sexual Orientation Not on file documented as of this encounter Last Filed Vital Signs Vital Sign Reading Time Taken Comments Blood Pressure 118/50 12/05/2024 9:25 AM EDT Pulse 87 12/05/2024 9:25 AM EDT Temperature 36.4 C (97.6 F) 12/05/2024 9:25 AM EDT Respiratory Rate 18 12/05/2024 9:25 AM EDT Oxygen Saturation 98% 12/05/2024 9:25 AM EDT Inhaled Oxygen Concentration - - Weight 68.5 kg (151 lb) 12/05/2024 9:25 AM EDT Height 175.3 cm (5' 9.02 ) 12/05/2024 9:25 AM ED T Body Mass Index 22.29 12/05/2024 9:25 AM EDT documented in this encounter Progress Notes * Dewey Enriquez, DO - 12/05/2024 9:30 AM EDT Subjective Patient ID: Nic Ordaz is a 64 y.o. male. Keron presents today to recheck chest x-ray. He is not having any respiratory symptoms. He did have PFTs done that did not show any significant COPD or other abnormality. He denies chest pain or cough.He is seeing the oncologist for his myelofibrosis. He has an appointment in January in [place] to discuss it with a different specialist. He would like to hold off on his colonoscopy and EGD. He had ahemoglobin done today and his count was 7.1. He stopped smoking in August and has not picked it back up. The following portions of the patient's history were reviewed and updated as appropriate: allergies, current medications, past family history, past medical history, past social history, past surgicalhistory, problem list, and medication reconciliation was completed including current medication andpost discharge medication. Review of Systems Constitutional: Negative. Respiratory: Negative. Cardiovascular: Negative. Musculoskeletal: Negative. Neurological: Negative. Psychiatric/Behavioral: Negative. Objective Physical Exam Vitals reviewed. Exam conducted with a management internship present (Ayad Derrell MS 3). Constitutional: General: He is not in acute distress. Appearance: Normal appearance. He is normal weight. He is not ill-appearing. Cardiovascular: Rate and Rhythm: Normal rate and regular rhythm. Pulses: Normal pulses. Heart sounds: Normal heart sounds. No murmur heard. Pulmonary: Effort: Pulmonary effort is normal. No respiratory distress. Breath sounds: Normal breath sounds. No wheezing, rhonchi or rales. Musculoskeletal: Cervical back: Neck supple. Right lower leg: No edema. Left lower leg: No edema. Neurological: General: No focal deficit present. Mental Status: He is alert and oriented to person, place, and time. Gait: Gait is intact. Psychiatric: Mood and Affect: Mood normal. Behavior: Behavior normal. Thought Content: Thought content normal. Judgment: Judgment normal. Assessment/Plan Nic was seen today for follow-up. Diagnoses and all orders for this visit: Pleural effusion, right - X-ray chest 2 views; Future I am going to recheck his chest x-ray to see if the pleural effusion has cleared. He is still may need to see a mule tender if it has it. Primary myelofibrosis ([facility]-H[facility]) Follow up with Oncology as directed documented in this encounter Plan of Treatment Upcoming Encounters Date Type Department Care Team (Late st Contact Info) Description 01/03/2025 11:00 AM EDT Office Visit [facility] - Medical Oncology [address] [place] [address] Stephane Rincon MD [address] [place] [address] [address] [place] [address] 03/07/2025 10:00 AM EDT Office Visit [facility] Internal Medicine - Family Medicine [address] [place] [address] Dewey Enriquez DO [address], [facility] [place] [address] Scheduled Orders Name Type Priority Associated Diagnoses Orde r Schedule X-ray chest 2 views Imaging Routine Pleural effusion, right Expected: 12/05/2024, Expires: 12/05/2025 documented as of this encounter Goals Goal Patient Goal Type Associated Problems Recent Progress Patient-Stated? Author <enter goal here> General Yes Molly Clark, DEPARTMENT COORDINATOR Note: Evaluation of progress towards goal: Current Discharge Plan; home with spouse, self care, denies needs at this time. documented as of this encounter Visit Diagnoses Diagnosis Pleural effusion, right- Primary Unspecified pleural effusion Primary myelofibrosis (CMS-HCC) Myelofibrosis with myeloid metaplasia documented in this encounter Additional Health Concerns Assessment Noted Time PHQ-9 Depression Total Score: 0 12/06/19 9:23 AM EDT documented as of this encounter Care Teams Bituminous Distributor Operator Relationship Specialty Start Date End Date Dewey Enriquez DO [address] [place] [address] PCP - General Family Medicine 09/07/24 documented as of this encounter
--- OUTSIDE RECORDS SUMMARY | 2024-12-06 08:05 | XMS_ITS | Encounter Summary ---
Author Organization [facility] tem Address [id number] [address] [place] [address] Care Team Providers Care Archives Specialist Name Role Phone Dewey Enriquez DO Primary Care Provider [phone] Encounter Details Date Type Department Care Team (Late st Contact Info) Description 09/12/2024 Telephone [facility] Pul[facility] [address] [facility] [address] [place] [address] Willow Marsh, LOCOMOTIVE MECHANIC-SUPERVISOR STONE [address] [facility] [address] [place] [address] Social History Tobacco Use Types Packs/Day Years Used Date Smoking Tobacco: Former Cigarettes 1 45.2 1 08/26/1978 - 09/02/2024 Smokeless Tobacco: Never Alcohol Use Standard Drinks/Week Comments Yes 35 (1 standard drink = 0.6 oz pu re alcohol) 4 or 5 a night [facility] Utilities Answer Date Recorded In the past 12 months has [email or web address], oil, or water [employer] threatened to shut off services in your home? No 09/08/2024 Social Connection and Isolat ion Panel [NHANES] Answer Date Recorded In a typical week, how many times do you talk on the phone with family, friends, or neighbors? Twice a week 06/25/2024 How often do you get togethe r with friends or relatives? Twice a week 06/25/2024 How often do you attend chur or mu-ism services? Never 06/25/2024 Do you belong to any clubs o r organizations such as scientologist groups, unions, fraternal or athletic groups, or [...] PHQ-2 Answer Date Recorded Total Score 0 09/06/2024 [facility] of Occupat ional [facility] - Occupational Stress Questionnaire Answer Date Recorded [...] Recorded Do you need help finding a [facility] career [facility] and/or a training program? No 06/25/2024 Hunger Screening Answer Date Recorded Within the past 12 months we worried whether our food would run out before we got money to buy more. Never True 09/08/2024 Within the past 12 months th e food we bought just didn't last and we didn't have money to get more. Never True 09/08/2024 Purpose - Life Answer Date Recorded I have a purpose and direction in my life. Stron gly Agree 06/25/2024 Sex and Gender Information Value Date Recorded Sex Assigned at Not on file Legal Sex Male 11:28 AM EDT Gender Identity Not on file Sexual Orientation Not on file documented as of this encounter Miscellaneous Notes * Telephone Encounter - BRYSON Marin - 09/12/2024 2:07 PM EST CXR in 4-6 weeks then follow up any provider in [place]. Thanks! * Telephone Encounter - Guerline Cha CMA - 09/12/2024 2:07 PM EST Called and left vm to call office to schedule. documented in this encounter Plan of Treatment Upcoming Encounters Date Type Department Care Team (Late st Contact Info) Description 01/03/2025 11:00 AM EDT [facility] [place] [address] [place] [address] [place] [address] [address] [place] [address] 03/07/2025 10:00 AM EDT Office Visit [facility] Internal Medicine - Family Medicine [address] [place] [phone] Dewey Enriquez, [address], [facility] [place], [place] [phone] documented as of this encounter Goals Goal Patient Goal Type Associated Problems Recent Progress Patient-Stated? Author <enter goal here> General Yes Molly Clark LSW Note: Evaluation of progress towards goal: Current Discharge Plan; home with spouse, self care, denies needs at this time. documented as of this encounter Visit Diagnoses Not on filedocumented in this encounter Additional Health Concerns Assessment Noted Time PHQ-9 Depression Total Score: 0 09/06/19 10:28 AM EST documented as of this encounter Care Teams Archives Specialist Relationship Specialty Start Date End Date Dewey Enriquez DO [address], [facility] [place] [address] PCP - General Family Medicine 09/07/24 documented as of this encounter
--- OUTSIDE RECORDS SUMMARY | 2024-12-06 08:06 | XMS_ITS | Encounter Summary ---
Author Organization [facility] Address [facility] [place] [id number] [address] [place] [address] Care Team Providers Care Tool Room Supervisor Name Role Phone Dewey Enriquez DO Primary Care Provider [phone] Encounter Details Date Type Department Care Team (Late st Contact Info) Description 11/23/2024 Orders Only [facility] Internal Medicine - Family Medicine [address] [place] [phone] Evelyn Couch CMA Pleural effusion, right Social History Tobacco Use Types Packs/Day Years Used Date Smoking Tobacco: Former Cigarettes 1 45.2 1 08/26/1978 - 09/02/2024 Smokeless Tobacco: Never Alcohol Use Standard Drinks/Week Comments Yes 35 (1 standard drink = 0.6 oz pu re alcohol) 4 or 5 a night [facility] [employer] Answer Date Recorded In the past 12 months has [employer] electric, gas, oil, or water company threatened to [...] 06/25/2024 How often do you attend chur ch or presybeterian services? Never 06/25/2024 Do you belong to any clubs o r organizations such as caodaism groups, unions, fraternal or athletic groups, or [...] PHQ-2 Answer Date Recorded Total Score 0 11/01/2024 [facility] of Occupat ional Health - Occupational [...] Recorded Do you need help finding a [facility] career center and/or a training program? No 06/25/2024 Hunger Screening Answer Date Recorded Within the past 12 months we worried whether our food would run out before we got money to buy more. Never True 11/01/2024 Within the past 12 months th e food we bought just didn't last and we didn't have money to get more. Never True 11/01/2024 Purpose - Life Answer Date Recorded I have a purpose and direction in my life. Stron gly Agree 06/25/2024 Sex and Gender Information Value Date Recorded Sex Assigned at Not on file Legal Sex Male 11:28 AM EDT Gender Identity Not on file Sexual Orientation Not on file documented as of this encounter Plan of Treatment Upcoming Encounters Date Type Department Care Team (Late st Contact Info) Description 01/03/2025 11:00 AM EDT Office Visit [facility] - Medical Oncology [address] [place] [address] [place] [address] [place] [address] [address] [place] [address] 03/07/2025 10:00 AM EDT Office Visit [facility] Internal Medicine - Family Medicine [address] [place] [phone] Dewey Enriquez DO [address] [facility] [place], [place] [phone] documented as of this encounter Goals Goal Patient Goal Type Associated Problems Recent Progress Patient-Stated? Author <enter goal here> General Yes Molly Clark, JANITOR HEAD Note: Evaluation of progress towards goal: Current Discharge Plan; home with spouse, self care, denies needs at this time. documented as of this encounter Procedures Procedure Name Priority Date/Time Associated Diagnosis Comments XR CHEST 2 VWS Routine 11/23/2024 7:15 AM EDT Pleural effusion, right documented in this encounter Results * X-ray chest 2 views (11/23/2024 7:15 AM EDT) Anatomical Region Laterality Modality Body, Chest N/A Computed Radiogr aphy us Dewey Enriquez DO IMG DIAGNOSTIC IMAGING ORDER FERN Final Result documented in this encounter Visit Diagnoses Diagnosis Pleural effusion, right Unspecified pleural effusion documented in this encounter Additional Health Concerns Assessment Noted Time PHQ-9 Depression Total Score: 0 11/02/19 25 9:26 AM EDT documented as of this encounter Care Teams Tool Room Supervisor Relationship Specialty Start Date End Date Dewey Enriquez DO [address] [facility], [place] [address] PCP - General Family Medicine 09/07/24 documented as of this encounter
--- OUTSIDE RECORDS SUMMARY | 2024-12-06 08:06 | XMS_ITS | Encounter Summary ---
Author Organization [facility] Address [id number] [address] [place] [address] Care Team Providers Care Disulfurizer Tender Name Role Phone Dewey Enriquez DO Primary Care Provider [phone] Encounter Details Date Type Department Care Team (Late st Contact Info) Description 09/07/2024 Orders Only [facility], A Department of [address] [address] [place] [address] [place] [address] [address] [place] [id number] Social History Tobacco Use Types Packs/Day Years Used Date Smoking Tobacco: Every Day Cigarettes 1 45.4 Started: 06/25/1979 Smokeless Tobacco: Never Alcohol Use Standard Drinks/Week Comments Yes 35 (1 standard drink = 0.6 oz pu re alcohol) 4 or 5 a night [facility] Utilities Answer Date Recorded In the past 12 months has [employer], oil, or water [employer] threatened to shut off services in your [...] often do you attend chur ch or baptism services? Never 06/25/2024 Do you belong to any clubs o r organizations such as evangelical groups, unions, fraternal or athletic groups, or [...] Answer Date Recorded Total Score 0 09/06/2024 [facility] Occupat ional Health - Occupational [...] Recorded Do you need help finding a [facility] career center and/or a training program? No [...] on file documented as of this encounter Functional Status * Intimate Partner Violence Question Answer Date of Assessment Author Within the last year, have y ou been humiliated or emotionally abused in other ways by your partner or ex-partner? No 09/08/2024 2:00 AM Natalie Cuevas RN Within the last year, have y ou been afraid of your partner or ex-partner? No 09/08/2024 2:00 AM Natalie Cuevas RN Within the last year, have y ou been raped or forced to have any kind of sexual activity by your partner or ex-partner? No 09/08/2024 2:00 AM Natalie Cuevas RN Within the last year, have y ou been kicked, hit, slapped, or otherwise physically hurt by your partner or ex-partner? No 09/08/2024 2:00 AM Natalie Cuevas RN * Question Answer Date of Assessment Author Functional Status Independent 09/08/2024 1:39 AM Natalie Cuevas RN documented as of this encounter Plan of Treatment Upcoming Encounters Date Type Department Care Team (Late st Contact Info) Description 01/03/2025 11:00 AM EDT [facility] [place] [address] Stephane Rincon MD [address] [facility] [address] [place] [address] 03/07/2025 10:00 AM EDT Office Visit [facility] - Family Medicine [address] [place] [address] Dewey Enriquez DO [address] [place] [address] documented as of this encounter Goals Goal [...] documented as of this encounter Care Teams Disulfurizer Tender Relationship Specialty Start Date End Date Dewey Enriquez DO [address] [facility] [address] PCP - General Family Medicine 09/07/24 documented as of this encounter
--- OUTSIDE RECORDS SUMMARY | 2024-12-06 08:06 | XMS_ITS | Encounter Summary ---
Author Organization [facility] tem Address [facility] [place][id number] [address] [place] [address] Care Team Providers Care Job Site Superintendent Name Role Phone Dewey Enriquez DO Primary Care Provider [phone] Encounter Details Date Type Department Care Team (Late st Contact Info) Description 2023 [facility] [address] [facility] [place] [phone] Evelyn Couch CMA Social History Tobacco Use Types Packs/Day Years Used Date Smoking Tobacco: Never Assessed Childcare Answer Date Recorded Childcare Unknown 12/27/2018 Employment Answer Date Recorded Employment Unknown 12/27/2018 Purpose - Life Answer Date Recorded Purpose and direction in life Unknown Sex and Gender Information Value Date Recorded Sex Assigned at Not on file Legal Sex Male 11:28 AM EDT Gender Identity Not on file Sexual Orientation Not on file documented as of this encounter Miscellaneous Notes * Telephone Encounter - Evelyn Couch CMA - 2023 1:32 PM EDT This patient is due for his Cologard * Telephone Encounter - Tony Marion DO - 2023 1:32 PM EDT Message noted. This is not my patient, I have never seen him, even in [place]. Dr Enriquez has not seen him since 2020. He needs a new patient appointment * Telephone Encounter - Evelyn Couch CMA - 2023 1:32 PM EDT This patient needs an appointment please * Telephone Encounter - Teri Jordan - 2023 1:32 PM EDT Patient just turned 63 today so he said once he gets his medicare figured out he will schedulle * Telephone Encounter - Tony Marion DO - 2023 1:32 PM EDT Message noted. Again, this is Dr. Enriquez's patient. Please direct this message to him. documented in this encounter Plan of Treatment Upcoming Encounters Date Type Department Care Team (Late st Contact Info) Description 01/03/2025 11:00 AM EDT Office Visit [facility] - Medical Oncology [address] [place] [address] Stephane Rincon MD [address] [place] [address] [address] [place] [address] 03/07/2025 10:00 AM EDT Office Visit [facility] - Family Medicine [address] [place] [address] Dewey Enriquez DO [address], [place] [address] documented as of this encounter Visit Diagnoses Not on filedocumented in this encounter Care Teams Job Site Superintendent Relationship Specialty Start Date End Date Dewey Enriquez DO [address] [place] [address] PCP - General Family Medicine 09/07/24 documented as of this encounter
--- OUTSIDE RECORDS SUMMARY | 2024-12-06 08:06 | XMS_ITS | Encounter Summary ---
Author Organization [facility] Address [place]-[id number] [address] [place] [address] Care Team Providers Care Sheet Metal Assembler Name Role Phone Dewey Enriquez DO Primary Care Provider [phone] Encounter Details Date Type Department Care Team (Late st Contact Info) Description 09/14/2024 Orders Only [facility] - Family Medicine [address] [place] [address] Dewey Enriquez DO [address], [place] [address] Social History Tobacco Use Types Packs/Day Years Used Date Smoking Tobacco: Former Cigarettes 1 45.2 1 08/26/1978 - 09/02/2024 Smokeless Tobacco: Never Alcohol Use Standard Drinks/Week Comments Yes 35 (1 standard drink = 0.6 oz pu re alcohol) 4 or 5 a night [facility] Utilities Answer Date Recorded In the past 12 months has [employer], oil, or water [employer] threatened to shut off services in your [...] often do you attend chur ch or samaritan services? Never 06/25/2024 Do you belong to any clubs o r organizations such as hinduism groups, unions, fraternal or athletic groups, or [...] Answer Date Recorded Total Score 0 09/06/2024 [facility] - Occupational [...] Recorded Do you need help finding a l ocal career center and/or a training program? No [...] 11:00 AM EDT Office Visit [facility] - Medical Oncology [address] [place] [phone] Stephane Rincon MD [address] [place] [address] [address] [place] [address] 03/07/2025 10:00 AM EDT Office Visit [facility] - Family Medicine [address] [place] [phone] Dewey Enriquez DO [address] [facility] [place] [address] documented as of this encounter Goals Goal [...] Time PHQ-9 Depression Total Score: 0 09/06/19 25 10:28 AM EST documented as of this encounter Care Teams Sheet Metal Assembler Relationship Specialty Start Date End Date Dewey Erniquez DO [address], [place] [address] PCP - General Family Medicine 09/07/24 documented as of this encounter
--- OUTSIDE RECORDS SUMMARY | 2024-12-06 08:06 | XMS_ITS | Encounter Summary ---
Author Organization [facility] tem Address [facility]-[id number] [address] [place] [address] Care Team Providers Care Plate Finisher Name Role Phone Dewey Enriquez DO Primary Care Provider [phone] Encounter Details Date Type Department Care Team (Latest Contact Info) Description 12/05/2024 Travel Social History Tobacco Use Types Packs/Day Years Used Date Smoking Tobacco: Former Cigarettes 1 45.2 1 08/26/1978 - 09/02/2024 Smokeless Tobacco: Never Alcohol Use Standard Drinks/Week Comments Yes 31 (1 standard drink = 0.6 oz pu re alcohol) 1 a night [facility] Utilities Answer Date Recorded In the past 12 months has [employer], gas, oil, or water company threatened [...] week 06/25/2024 How often do you attend [facility] or sabianist services? Never 06/25/2024 Do you belong to any clubs o r organizations such as pentecostal groups, unions, fraternal or athletic groups, or [...] Answer Date Recorded Total Score 0 12/05/2024 [facility] - Occupational Stress Questionnaire Answer Date [...] Recorded Do you need help finding a [facility] career center and/or a training program? No [...] 11:00 AM EDT [facility] Medical Oncology [address] [place] [address] Stephane Rincon MD [address] [facility] [address] [place] [address] 03/07/2025 10:00 AM EDT Office Visit [facility] - Family Medicine [address] [place] [phone] Dewey Enriquez DO [address], [place] [address] documented as of this encounter Goals Goal Patient Goal Type Associated Problems Recent Progress Patient-Stated? Author <enter goal here> General Yes Molly Clark, CUSTOMER SUPPORT EXECUTIVE Note: Evaluation of progress towards goal: Current Discharge Plan; home with spouse, self care, denies needs at this time. documented as of this encounter Visit Diagnoses Not on filedocumented in this encounter Additional Health Concerns Assessment Noted Time PHQ-9 Depression Total Score: 0 12/06/19 9:23 AM EDT documented as of this encounter Care Teams Plate Finisher Relationship Specialty Start Date End Date Dewey Enriquez DO [address] [facility] [place] [address] PCP - General Family Medicine 09/07/24 documented as of this encounter
--- OUTSIDE RECORDS SUMMARY | 2024-12-06 08:06 | XMS_ITS | Encounter Summary ---
Author Organization [facility] Address [facility]-[id number] [address] [place] [address] Care Team Providers Care Manager Cargo Name Role Phone Dewey Enriquez DO Primary Care Provider [phone] Encounter Details Date Type Department Care Team (Late st Contact Info) Description 09/27/2024 Orders Only [facility] - Family Medicine [address] [place] [place] [phone] Evelyn Couch CMA Chronic obstructive pulmonary disease, unspecified COPD type ([facility]) Social History Tobacco Use Types Packs/Day Years Used Date Smoking Tobacco: Former Cigarettes 1 45.2 1 08/26/1978 - 09/02/2024 Smokeless Tobacco: Never Alcohol Use Standard Drinks/Week Comments Yes 35 (1 standard drink = 0.6 oz pu re alcohol) 4 or 5 a night [facility] Utilities Answer Date Recorded In the past 12 months has [employer] electric, gas, oil, or water company threatened [...] often do you attend chur ch or yazidi services? Never 06/25/2024 Do you belong to any clubs o r organizations such as quaker groups, unions, fraternal or athletic groups, or [...] PHQ-2 Answer Date Recorded Total Score 0 09/21/2024 [facility] Occup[facility] ional Health - Occupational Stress [...] Recorded Do you need help finding a [facility] career center and/or a training program? No 06/25/2024 Hunger Screening Answer Date Recorded Within the past 12 months we worried whether our food would run out before we got money to buy more. Never True 09/21/2024 Within the past 12 months th e food we bought just didn't last and we didn't have money to get more. Never True 09/21/2024 Purpose - Life Answer Date Recorded I [...] 11:00 AM EDT [facility] Visit [facility] - Medical Oncology [address] [place] [address] Stephane Rincon MD [address] [facility] [address] [place] [address] 03/07/2025 10:00 AM EDT Office Visit [facility] - Family Medicine [address] [place] [phone] Dewey Enriquez DO [address] [facility], [place] [address] documented as of this encounter Goals Goal Patient Goal Type Associated Problems Recent Progress Patient-Stated? Author <enter goal here> General Yes Molly Clark INJURY PREVENTION COORDINATOR Note: Evaluation of progress towards goal: Current Discharge Plan; home with spouse, self care, denies needs at this time. documented as of this encounter Procedures Procedure Name Priority Date/Time Associated Diagnosis Comments PULMONARY FUNCTION TEST Routine 09/27/2024 9:28 AM EDT Chronic obstructive pulmonary disease, unspecified COPD type ([facility]) documented in this encounter Results * Pulmonary function test Complete PFT w/ BD (Spirometry (Flow Volume Loop) pre/post short acting bronchodilator w/ DLCO (diffusion study) and Lung Volume) (09/27/2024 9:28 AM EDT) us Dewey Enriquez DO PFT ORDERABLES Final Result MANUALLY TRANSCRIBED RESULTS documented in this encounter Visit Diagnoses Diagnosis Chronic obstructive pulmonary disease, unspecified COPD type ([facility]-HCC) documented in this encounter Additional Health Concerns Assessment Noted Time PHQ-9 Depression Total Score: 0 09/22/19 9:03 AM EST documented as of this encounter Care Teams Manager Cargo Relationship Specialty Start Date End Date Dewey Enriquez DO [address] [facility], [place] [address] PCP - General Family Medicine 09/07/24 documented as of this encounter
--- OUTSIDE RECORDS SUMMARY | 2024-12-06 08:06 | XMS_ITS | Encounter Summary ---
Author Organization [facility] Address [facility][id number] [address] [place] [address] Care Team Providers Care Deck Builder Name Role Phone Dewey Enriquez DO Primary Care Provider [phone] Reason for Visit * Reason Onset Date Comments Transition Of Care 09/13/2024 Encounter Details Date Type Department Care Team (Late st Contact Info) Description 09/13/2024 [facility]phone [facility] [address] [place] [phone] Zeny Gaytan, onion farmer Of Care Social History Tobacco Use Types Packs/Day Years Used Date Smoking Tobacco: Former Cigarettes 1 45.2 1 08/26/1978 - 09/02/2024 Smokeless Tobacco: Never Alcohol Use Standard Drinks/Week Comments Yes 35 (1 standard drink = 0.6 oz pu re alcohol) 4 or 5 a night [facility] Utilities Answer Date Recorded In the past 12 months has [employer], gas, oil, or water company threatened to [...] often do you attend chur ch or hindu services? Never 06/25/2024 Do you belong to any clubs o r organizations such as voodoo groups, unions, fraternal or athletic groups, or [...] Answer Date Recorded Total Score 0 09/06/2024 [facility] Occup[facility] ional Health - Occupational [...] Recorded Do you need help finding a [facility] and/or a training program? No [...] encounter Miscellaneous Notes * Telephone Encounter - Zeny Gaytan RN - 09/13/2024 12:27 PM EST Transition of Care (*required) *Additional Questions/Concerns Requiring PCP Follow-Up: Needs to schedule TCM f/u by 09.25.24. Discussed with patient stats he has called today and left a message requesting call back. This documentation is being used for Transition of Care purposes: Yes Goal: Patient will demonstrate a safe transition from hospital to home Diagnosis on Discharge: Severe symptomatic anemia Bulky retroperitoneal, right iliac, and inguinal lymphadenopathy and splenomegaly Concern for hematologic malignancy Moderate right pleural effusion Nonpurulent right lower extremity cellulitis with nonhealing wound Excessive alcohol use without symptoms of alcohol withdrawal Coagulopathy with elevated INR present on admission possibly secondary to chronic alcohol use Recent tobacco smoker Hyperlipidemia on rosuvastatin Discharge Specialty: Hem/Onc *Name of Discharging Facility: [facility] Date of Facility Discharge: 09.08-09.12.24 Date of Interactive Contact and Name of Calender Wind Up Helper: 09.13.24 1245 Spoke with patient *Medication Review Completed: No START taking: CEPHalexin (KEFLEX) Medication Reconciliation Questions/Concerns: Discussed with patient. States he has medication and is taking as ordered. *Follow Up Appointments with Providers: Primary: Dewey Enriquez DO [phone] TBD Specialty: 10.04.24 1030 [facility] [phone] Specialty: Willow Marsh APRN-CAYLA in 6 weeks Pulmonary Medicine [place] [phone] TBD Specialty: Wound care 1-2 weeks [facility] [place], [place] TBD Review of Pending Lab/Diagnostic Tests and Plan for Completion: Bone Marrow biopsy, CBC auto diff weekly, type and screen indirect alissa weekly. Pt aware. Assessment and Support of Treatment Regimen Adherence and Medication Management: States he is doing fine . He and his reviewed discharge instructions. Denies new or worseningsymptoms. Lives with his . No DME needed. No transportation needs. States his helped him with his wound care today. Went well. Reports tenderness on inside of Rtleg. Encouraged to discuss with PCP office when they call back. Agrees. Denies headaches, dizziness, increased SOB, fever, swelling, nausea. States appetite is good. Elimination is WNL. Education Provided by [facility] to Support Self-Management, Independent Living and ADLs: Reviewed discharge instructions. Encouraged to contact PCP office with any new or worsening symptoms. Verbalizes understanding. Communication with Home Health Agencies and Other Services Utilized/Needed by the Patient: none * Telephone Encounter - Teri Jordan - 09/13/2024 12:27 PM EST Where do you want him documented in this encounter Plan of Treatment Upcoming Encounters Date Type Department Care Team (Late st Contact Info) Description 01/03/2025 11:00 AM EDT Office Visit [facility] Medical Oncology [address] [place] [phone] Stephane Rincon MD [address] [place] [address] [address] [place] [address] 03/07/2025 10:00 AM EDT Office Visit [facility] - Family Medicine [address] [place] [phone] Dewey Enriquez, [address], [facility] [place] [address] documented as of this encounter Goals Goal Patient Goal Type Associated Problems Recent Progress Patient-Stated? Author <enter goal here> General Yes Molly Clark, MOUNTER SMOKING PIPE Note: Evaluation of progress towards goal: Current Discharge Plan; home with spouse, self care, denies needs at this time. documented as of this encounter Visit Diagnoses Not on filedocumented in this encounter Additional Health Concerns Assessment Noted Time PHQ-9 Depression Total Score: 0 09/06/19 10:28 AM EST documented as of this encounter Care Teams Deck Builder Relationship Specialty Start Date End Date Dewey Enriquez DO [address] [facility], [place] [address] PCP - General Family Medicine 09/07/24 documented as of this encounter
--- OUTSIDE RECORDS SUMMARY | 2024-12-06 08:06 | XMS_ITS | Patient Health Record ---
Author Organization [facility] in [place] Address [address] [place] [address] Care Team Providers Care Drawing In Hand Name Role Phone Patrick Enriquez DOnis Primary Care Provider Unavail able RuchiKeisha june Unavailable [phone] Results Component Value Reference Range Notes CBC AUTO DIFF (Not yet revie wed by provider) Interpretation: Performing Lab: Notes/Report: [facility] , White Blood Count 4.3 4.0-11.0 10 3/uL Red Blood Count 2.10 4.70-6.10 10 6/uL Hemoglobin 6.2 14.0-18.0 g/dL RESULTS CONNER D TO FRANCISCO PACHECO RN Hematocrit 19.4 42.0-54.0 % RESULTS CALLED TO FRANCISCO PACHECO RN Mean Corpuscular Volume 92.4 80.0-94.0 fL Mean Corpuscular Hemoglobin 29.5 25.9-34.0 pg Mean Corpuscular HGB Conc 32.0 29.9-35.2 g/dL Red Cell Distribution Width 21.8 11.0-15.0 % Platelet Count 186 150-450 10 3/uL Mean Platelet Volume 12.6 9.5-13.5 fL Performing Lab: see note ML - [facility] LB Erythropoietin (EPO), Serum (Not yet reviewed by provider) Interpretation: Performing Lab: Notes/Report: [facility] , Erythropoietin (EPO), Serum 1801.6 2.6-18.5 mIU/mL be used interchangeably. Results cannot be interpreted as Values obtained with different assay methods or kits cannot disease. Secondary School Teacher: Jayy Partida PhD, Phone: [phone] [employer] DxI 800 Immunoassay System absolute evidence of the presence or absence of malignant [address] [place], [place] [id number] Performed at: - [facility] [place] Performing Lab: see note LC - [facility] LB CBC AUTO DIFF (Not yet revie wed by provider) Interpretation: Performing Lab: Notes/Report: [facility] , White Blood Count 4.2 4.0-11.0 10 3/uL Red Blood Count 2.33 4.70-6.10 10 6/uL Hemoglobin 6.9 14.0-18.0 g/dL RESULTS CONNER D TO FRANCISCO PACHECO RN AT 0858 Hematocrit 21.3 42.0-54.0 % RESULTS CALLED TO FRANCISCO PACHECO RN AT 0858 Mean Corpuscular Volume 91.4 80.0-94.0 fL Mean Corpuscular Hemoglobin 29.6 25.9-34.0 pg Mean Corpuscular HGB Conc 32.4 29.9-35.2 g/dL Red Cell Distribution Width 20.6 11.0-15.0 % Platelet Count 181 150-450 10 3/uL Mean Platelet Volume 11.5 9.5-13.5 fL Performing Lab: see note ML - [facility] LB CBC AUTO DIFF (Not yet revie wed by provider) Interpretation: Performing Lab: Notes/Report: [facility] , White Blood Count 5.9 4.0-11.0 10 3/uL Red Blood Count 2.51 4.70-6.10 10 6/uL Hemoglobin 7.7 14.0-18.0 g/dL Hematocrit 23.3 42.0-54.0 % RESULTS CALLED TO BELKIS ELLIOTT RN Mean Corpuscular Volume 92.8 80.0-94.0 fL Mean Corpuscular Hemoglobin 30.7 25.9-34.0 pg Mean Corpuscular HGB Conc 33.0 29.9-35.2 g/dL Red Cell Distribution Width 22.4 11.0-15.0 % Platelet Count 246 150-450 10 3/uL Mean Platelet Volume 11.9 9.5-13.5 fL Performing Lab: see note ML - [facility] LB Type and Screen (Not yet rev iewed by provider) Interpretation: Performing Lab: Notes/Report: [facility] , Blood Type A Positive Antibody Screen NEGATIVE Packed Red Blood Cells (Not yet reviewed by provider) Interpretation: Performing Lab: Notes/Report: Packed Red Blood Cells [id number] AP RC TRANSFUSED 11/28/24 1206 CBC AUTO DIFF (Not yet revie wed by provider) Interpretation: Performing Lab: Notes/Report: [facility] , White Blood Count 5.4 4.0-11.0 10 3/uL Red Blood Count 2.23 4.70-6.10 10 6/uL Hemoglobin 6.8 14.0-18.0 g/dL RESULTS CONNER D TO LOUIE CHAVEZ RN at 1145 Hematocrit 20.6 42.0-54.0 % RESULTS CALLED TO LOUIE CHAVEZ RN at 1145 Mean Corpuscular Volume 92.4 80.0-94.0 fL Mean Corpuscular Hemoglobin 30.5 25.9-34.0 pg Mean Corpuscular HGB Conc 33.0 29.9-35.2 g/dL Red Cell Distribution Width 22.5 11.0-15.0 % Platelet Count 281 150-450 10 3/uL Mean Platelet Volume 10.6 9.5-13.5 fL Performing Lab: see note ML - [facility] LB CT abdomen pelvis w con (Not yet reviewed by provider) Interpretation: Performing Lab: Notes/Report: Source Facility: [facility]-[address] [place] [address] CT Scan Report Signed Patient: PENNY MCQUEEN MR#: [id number] : 1960 Acct:[id number] Age/Sex: 64 / M ADM Date: 11/16/24 Loc: CT Attending Dr: Keisha Hopper M.D. Ordering Physician: Keisha Hopper M.D. Date of Service: 11/16/24 Procedure(s): CT abdomen pelvis w con Accession Number(s): [id number] cc: DEWEY ENRIQUEZ [place] [address] Patient Name: PENNY MCQUEEN MRN: [facility]:[id number] date: 1960 Sex: M Assigned Patient Location: CT Current Patient Location: CT Accession/Order Number: [id number] Exam Date: 11/16/2024 14:28 Report Date: 11/16/2024 14:34 At the request of: KEISHA HOPPER MD Procedure: CT abdomen pelvis w con CT CHEST, ABDOMEN AND PELVIS WITH INTRAVENOUS CONTRAST: CLINICAL HISTORY: Chest 11/06/2024 COMPARISON: None TECHNIQUE: TECHNIQUE: Spiral images were obtained through the chest, abdomen and pelvis following the administration of IV contrast. This CT exam was performed using one or more following dose reduction techniques: Automated exposure control, adjustment of the mA and/or kV according to patient size, or use of iterative reconstruction technique. FINDINGS: CT chest: Mediastinum:Thoracic aorta appears normal in caliber. Pulmonary trunk appears nondilated. Cardiomegaly without pericardial effusion. Partially calcified mediastinal lymph nodes. Several prominent to enlarged mediastinal lymph nodes are present largest involving the prevascular space measuring 1.3 cm in short axis. The esophagus is grossly unremarkable. Lungs:Moderate right-sided pleural effusion with compressive atelectasis. Left basilar atelectasis with trace pleural effusion. No consolidation or pneumothorax. Calcified granulomas. Soft tissues/Bones: No acute findings. Osseous structures demonstrate degenerative change. CT abdomen and pelvis: Organs:Liver and splenic granulomas. Splenomegaly measuring approximately 18 cm.[Gallbladder portal vein pancreas and adrenal glands appear unremarkable. No enhancing renal mass or hydronephrosis. Abdominal aorta normal caliber. GI: Stomach is grossly unremarkable. Small bowel appears nondilated. Appendix is normal. No acute colonic abnormality.[ Pelvis:[Urinary bladder and prostate gland appear unremarkable.] Peritoneum/Retroperitoneum:Small amount of free fluid is seen within the pelvis. No free air. Multiple prominent retroperitoneal lymph nodes are present extending along the iliac chains.[Additional prominent lymph nodes are seen. Abd wall/Bones:Abdominal wall intact. No acute process. Osseous structures demonstrate degenerative change.[ CT/CT abdomen pelvis w con IMPRESSION: Prominent to enlarged lymph nodes involving the chest abdomen and pelvis with associated splenomegaly. Underlying lymphoma cannot BE excluded. Moderate right and trace left pleural effusions. There is associated cardiomegaly suggesting underlying CHF. Impression dictated by: Miguel Ángel Arevalo Jr., D.ODianelys 11/16/2024 2:34 PM Dictation Location: [place] [address] Electronically authenticated by: [id number] Y Date: 11/16/2024 14:34 Dictated By: Miguel Ángel Arevalo M.D. Signed By: 11/16/24 1437 DD/ 1434 TD/TT: Branch Examiner: [place] [address] CT Scan Report Signed Patient: SOBEIDA MCQUEEN MR#: [id number] : 1960 Acct:[id number] Age/Sex: 64 / M ADM Date: 11/16/24 Loc: CT Attending Dr: Bernabe Hopper M.D. Ordering Physician: Keisha Hopper M.D. Date of Service: 11/16/24 Procedure(s): CT abd omen pelvis w con Accession Number(s): [id number] cc: DEWEY ENRIQUEZ [place] [address] Patient Name: PENNY MCQUEEN MRN: [id number] date: 1960 Sex: M Assigned Patient Location: CT Current Patient Location: CT Accession/Order Numb er: [id number] Exam Date: 11/16/2024 14:28 Report Date: 11/16/2024 14:34 At the request of: KEISHA HOPPER MD Procedure: CT abdome n pelvis w con CT CHEST, ABDOMEN AN D PELVIS WITH INTRAVENOUS CONTRAST: CLINICAL HISTORY: Ch est 11/06/2024 COMPARISON: None TECHNIQUE: TECHNIQUE : Spiral images were obtained through the chest, abdomen and pelvis following the administration of IV contrast. This CT exam was performed using one or more following dose reduction techniques: Automated exposure control, adjustment of the mA and/or kV according to patient size, or use of iterative reconstruction technique. FINDINGS: CT chest: Mediastinum:Thoracic aorta appears normal in caliber. Pulmonary trunk appears nondilated. Cardiome miesha without pericardial effusion. Partially calcified mediastinal lymph no radha. Several prominent to enlarged mediastinal lymph nodes are present largest involving the prevascular space measuring 1.3 cm in short axis. The esophagus is grossly unremarkable. Lungs:Moderate right-sided pleural effusion with compressive atelectasis. Left basilar atelect asis with trace pleural effusion. No consolidation or pneumothorax. Calcif ied granulomas. Soft tissues/Bones: No acute findings. Osseous structures demonstrate degenerative change. CT abdomen and pelvis: Organs:Liver and spl enic granulomas. Splenomegaly measuring approximately 18 cm.[Gallbladder port al vein pancreas and adrenal glands appear unremarkable. No enhancing renal m ass or hydronephrosis. Abdominal aorta normal caliber. GI: Stomach is gross ly unremarkable. Small bowel appears nondilated. Appendix is normal. No acute colonic abnormality.[ Pelvis:[Urinary blad jennyfer and prostate gland appear unremarkable.] Peritoneum/Retroperi tone um:Small amount of free fluid is seen within the pelvis. No free air. Multiple prominent retroperitoneal lymph nodes are present extending al jairo the iliac chains.[Additional prominent lymph nodes are seen. Abd wall/Bones:Abdom inal wall intact. No acute process. Osseous structures demonstrate degenera tive change.[ C T/CT abdomen pelvis w con IMPRESSION: Prominent to enlarge d lymph nodes involving the chest abdomen and pelvis with associated splenomeg david. Underlying lymphoma cannot BE excluded. Moderate right and t race left pleural effusions. There is associated cardiomegaly suggest ing underlying CHF. Impression dictated by: Miguel Ángel Arevalo Jr., DDianelysODianelys 11/16/2024 2:34 PM Dictation Location: [place] [address] Electronically authenticated by: [id number] Y Date: 11/16/2024 14:34 Dictated By: Miguel Ángel Arevalo M.D. Signed By: 11/16/24 1437 DD/ 1434 TD/TT: Branch Examiner: CT CHEST W CON (Not yet revi ewed by provider) Interpretation: Performing Lab: Notes/Report: Source Facility: [facility]-[address] [place] [address] [place] [address] CT Scan Report Signed Patient: PENNY MCQUEEN MR#: [id number] : 1960 Acct:[id number] Age/Sex: 64 / M ADM Date: 11/16/24 Loc: CT Attending Dr: Keisha Hopper M.D. Ordering Physician: Keisha Hopper M.D. Date of Service: 11/16/24 Procedure(s): CT chest w con Accession Number(s): [id number] cc: DEWEY ENRIQUEZ [address] [address] Patient Name: PENNY MCQUEEN MRN: [id number] date: 1960 Sex: M Assigned Patient Location: CT Current Patient Location: CT Accession/Order Number: [id number] Exam Date: 11/16/2024 14:28 Report Date: 11/16/2024 14:34 At the request of: KEISHA HOPPER MD Procedure: CT abdomen pelvis w con CT CHEST, ABDOMEN AND PELVIS WITH INTRAVENOUS CONTRAST: CLINICAL HISTORY: Chest 11/06/2024 COMPARISON: None TECHNIQUE: TECHNIQUE: Spiral images were obtained through the chest, abdomen and pelvis following the administration of IV contrast. This CT exam was performed using one or more following dose reduction techniques: Automated exposure control, adjustment of the mA and/or kV according to patient size, or use of iterative reconstruction technique. FINDINGS: CT chest: Mediastinum:Thoracic aorta appears normal in caliber. Pulmonary trunk appears nondilated. Cardiomegaly without pericardial effusion. Partially calcified mediastinal lymph nodes. Several prominent to enlarged mediastinal lymph nodes are present largest involving the prevascular space measuring 1.3 cm in short axis. The esophagus is grossly unremarkable. Lungs:Moderate right-sided pleural effusion with compressive atelectasis. Left basilar atelectasis with trace pleural effusion. No consolidation or pneumothorax. Calcified granulomas. Soft tissues/Bones: No acute findings. Osseous structures demonstrate degenerative change. CT abdomen and pelvis: Organs:Liver and splenic granulomas. Splenomegaly measuring approximately 18 cm.[Gallbladder portal vein pancreas and adrenal glands appear unremarkable. No enhancing renal mass or hydronephrosis. Abdominal aorta normal caliber. GI: Stomach is grossly unremarkable. Small bowel appears nondilated. Appendix is normal. No acute colonic abnormality.[ Pelvis:[Urinary bladder and prostate gland appear unremarkable.] Peritoneum/Retroperitoneum:Small amount of free fluid is seen within the pelvis. No free air. Multiple prominent retroperitoneal lymph nodes are present extending along the iliac chains.[Additional prominent lymph nodes are seen. Abd wall/Bones:Abdominal wall intact. No acute process. Osseous structures demonstrate degenerative change.[ CT/CT chest w con IMPRESSION: Prominent to enlarged lymph nodes involving the chest abdomen and pelvis with associated splenomegaly. Underlying lymphoma cannot BE excluded. Moderate right and trace left pleural effusions. There is associated cardiomegaly suggesting underlying CHF. Impression dictated by: Miguel Ángel Arevalo Jr., D.O. 11/16/2024 2:34 PM Dictation Location: [place] [address] Electronically authenticated by: [id number] Y Date: 11/16/2024 14:34 Dictated By: Miguel Ángel Arevalo M.D. Signed By: 11/16/24 1436 DD/ 1434 TD/TT: Branch Examiner: [place] [address] CT Scan Report Signed Patient: SOBEIDA MCQUEEN MR#: [id number] : 1960 Acct:[id number] Age/Sex: 64 / M ADM Date: 11/16/24 Loc: CT Attending Dr: Bernabe Hopper M.D. Ordering Physician: Keisha Hopper M.D. Date of Service: 11/16/24 Procedure(s): CT [facility] [facility] w con Accession Number(s): [id number] cc: DEWEY ENRIQUEZ [place] [address] Patient Name: PENNY MCQUEEN MRN: [id number] date: 1960 Sex: M Assigned Patient Location: CT Current Patient Location: CT Accession/Order Numb er: [id number] Exam Date: 11/16/2024 14:28 Report Date: 11/16/2024 14:34 At the request of: KEISHA HOPPER MD Procedure: CT abdome n pelvis w con CT CHEST, ABDOMEN AN D PELVIS WITH INTRAVENOUS CONTRAST: CLINICAL HISTORY: Ch est 11/06/2024 COMPARISON: None TECHNIQUE: TECHNIQUE : Spiral images were obtained through the chest, abdomen and pelvis following the administration of IV contrast. This CT exam was performed using one or more following dose reduction techniques: Automated exposure control, adjustment of the mA and/or kV according to patient size, or use of iterative reconstruction technique. FINDINGS: CT chest: Mediastinum:Thoracic aorta appears normal in caliber. Pulmonary trunk appears nondilated. Cardiome miesha without pericardial effusion. Partially calcified mediastinal lymph no radha. Several prominent to enlarged mediastinal lymph nodes are present largest involving the prevascular space measuring 1.3 cm in short axis. The esophagus is grossly unremarkable. Lungs:Moderate right-sided pleural effusion with compressive atelectasis. Left basilar atelect asis with trace pleural effusion. No consolidation or pneumothorax. Calcif ied granulomas. Soft tissues/Bones: No acute findings. Osseous structures demonstrate degenerative change. CT abdomen and pelvis: Organs:Liver and spl enic granulomas. Splenomegaly measuring approximately 18 cm.[Gallbladder port al vein pancreas and adrenal glands appear unremarkable. No enhancing renal m ass or hydronephrosis. Abdominal aorta normal caliber. GI: Stomach is gross ly unremarkable. Small bowel appears nondilated. Appendix is normal. No acute colonic abnormality.[ Pelvis:[Urinary blad jennyfer and prostate gland appear unremarkable.] Peritoneum/Retroperi tone um:Small amount of free fluid is seen within the pelvis. No free air. Multiple prominent retroperitoneal lymph nodes are present extending al jairo the iliac chains.[Additional prominent lymph nodes are seen. Abd wall/Bones:Abdom inal wall intact. No acute process. Osseous structures demonstrate degenera tive change.[ C T/CT chest w con IMPRESSION: Prominent to enlarge d lymph nodes involving the chest abdomen and pelvis with associated splenomeg david. Underlying lymphoma cannot BE excluded. Moderate right and t race left pleural effusions. There is associated cardiomegaly suggest ing underlying CHF. Impression dictated by: Miguel Ángel Arevalo Jr., DDianelysODianelys 11/16/2024 2:34 PM Dictation Location: [place] [address] Electronically authenticated by: [id number] Y Date: 11/16/2024 14:34 Dictated By: Miguel Ángel Arevalo M.D. Signed By: 11/16/24 1436 DD/ 1434 TD/TT: Branch Examiner: Packed Red Blood Cells (Not yet reviewed by provider) Interpretation: Performing Lab: Notes/Report: Packed Red Blood Cells TRANSFUSED 11/16/24 1031 [id number] AP RC Type and Screen (Not yet rev iewed by provider) Interpretation: Performing Lab: Notes/Report: Product order account changed to specimen [id number] by [facility] at 11/16/24 1030. [facility]iated [facility] , Blood Type A Positive Antibody Screen NEGATIVE Packed Red Blood Cells (Not yet reviewed by provider) Interpretation: Performing Lab: Notes/Report: Packed Red Blood Cells TRANSFUSED 11/14/24 1111 [id number] AP RC NOT AVAILABLE [id number] AP RC Manual Differential (Not yet reviewed by provider) Interpretation: Performing Lab: Notes/Report: [facility] , Segmented Neutrophils % Manual 67.0 43.0-75.0 Lymphocytes Percent Manual 22.0 20.5-60.0 % Monocytes Percent Manual 4.0 1.7-12.0 % Eosinophils Percent Manual 0.0 0.9-7.0 % Basophils Percent Manual 3.0 0.2-2.0 % Myelocytes % Manual 1.0 Blast % Manual 3.0 Segmented Neut Absolute Manual 2.94 1.4-6.5 10 3/uL Lymphocytes Absolute Manual 0.96 1.20-3.80 10 3/uL Monocytes Absolute Manual 0.17 0.30-0.80 10 3/ uL Eosinophils Absolute Manual 0.00 0.00-0.70 10 3/uL Basophils Abs Manual 0.13 0.00-0.10 10 3/uL Myelocytes Absolute Manual 0.04 Blast Absolute Manual 0.13 Anisocytosis 3+ Performing Lab: see note ML - [facility] LB PROF 14(COMP METB) (Not yet reviewed by provider) Interpretation: Performing Lab: Notes/Report: [facility] , Sodium 140 136-145 mmol/L Potassium 4.2 3.5-5.1 mmol/L Chloride 104 98-107 mmol/L Carbon Dioxide 26.3 21.0-32.0 mmol/L Anion Gap 13.9 Glucose 102 74-106 mg/dL Blood Urea Nitrogen 9.0 7.0-18.0 mg/dL Creatinine 0.99 0.70-1.30 mg/dL Estimated GFR ( Radha >60 >=60 mL/min/1.73m 2 Estimated GFR (Non- Sallie >60 >=60 mL/min/1.73m 2 BUN Creatinine Ratio 9.1 Calcium 8.6 8.5-10.1 mg/dL Bilirubin Total 0.9 0.2-1.0 mg/dL Aspartate Amino Transferase 16 15-37 U/L Alanine Aminotransferase 17 16-63 U/L Alkaline Phosphatase 82 46-116 U/L Total Protein 7.5 6.4-8.2 g/dL Albumin Level 3.7 3.4-5.0 g/dL Globulin 3.8 Albumin Globulin Ratio 1.0 Performing Lab: see note - [facility] LB CBC AUTO DIFF (Not yet revie wed by provider) Interpretation: Performing Lab: Notes/Report: [facility] , White Blood Count 4.4 4.0-11.0 10 3/uL Red Blood Count 1.98 4.70-6.10 10 6/uL Hemoglobin 6.1 14.0-18.0 g/dL RESULTS CONNER D TO FRANCISCO PACHECO RN at 1310 Hematocrit 18.2 42.0-54.0 % RESULTS CALLED TO FRANCISCO PACHECO RN at 1310 Mean Corpuscular Volume 91.9 80.0-94.0 fL Mean Corpuscular Hemoglobin 30.8 25.9-34.0 pg Mean Corpuscular HGB Conc 33.5 29.9-35.2 g/dL Red Cell Distribution Width 23.4 11.0-15.0 % Platelet Count 211 150-450 10 3/uL Mean Platelet Volume 11.5 9.5-13.5 fL Performing Lab: see note ML - [facility] LB Manual Differential (Not yet reviewed by provider) Interpretation: Performing Lab: Notes/Report: [facility] , Segmented Neutrophils % Manual 62.0 43.0-75.0 Band Neutrophils % 2.0 0-5 % Lymphocytes Percent Manual 30.0 20.5-60.0 % Monocytes Percent Manual 4.0 1.7-12.0 % Eosinophils Percent Manual 1.0 0.9-7.0 % Basophils Percent Manual 0.0 0.2-2.0 % Myelocytes % Manual 1.0 Segmented Neut Absolute Manual 2.35 1.4-6.5 10 3/uL Band Neutrophils Absolute 0.1 0.0-0.3 10 3/uL Lymphocytes Absolute Manual 1.14 1.20-3.80 10 3/uL Monocytes Absolute Manual 0.15 0.30-0.80 10 3/ uL Eosinophils Absolute Manual 0.03 0.00-0.70 10 3/uL Basophils Abs Manual 0.00 0.00-0.10 10 3/uL Myelocytes Absolute Manual 0.03 Anisocytosis 2+ Ovalocytes 1+ Performing Lab: see note ML - [facility] LB PROF CHEM 8 (BAS METB) (Not yet reviewed by provider) Interpretation: Performing Lab: Notes/Report: [facility] , Sodium 142 136-145 mmol/L Potassium 4.5 3.5-5.1 mmol/L Chloride 105 98-107 mmol/L Carbon Dioxide 28.5 21.0-32.0 mmol/L Anion Gap 13.0 Glucose 113 74-106 mg/dL Blood Urea Nitrogen 9.0 7.0-18.0 mg/dL Creatinine 1.06 0.70-1.30 mg/dL Estimated GFR ( Radha >60 >=60 mL/min/1.73m 2 Estimated GFR (Non- Sallie >60 >=60 mL/min/1.73m 2 BUN Creatinine Ratio 8.5 Calcium 8.9 8.5-10.1 mg/dL Performing Lab: see note - [facility] LB CBC AUTO DIFF (Not yet revie wed by provider) Interpretation: Performing Lab: Notes/Report: [facility] , White Blood Count 3.8 4.0-11.0 10 3/uL Red Blood Count 2.44 4.70-6.10 10 6/uL Hemoglobin 7.2 14.0-18.0 g/dL Hematocrit 22.5 42.0-54.0 % RESULTS CALLED TO FRANCISCO PACHECO RN at 1355 Mean Corpuscular Volume 92.2 80.0-94.0 fL Mean Corpuscular Hemoglobin 29.5 25.9-34.0 pg Mean Corpuscular HGB Conc 32.0 29.9-35.2 g/dL Red Cell Distribution Width 20.4 11.0-15.0 % Platelet Count 134 150-450 10 3/uL Mean Platelet Volume 10.1 9.5-13.5 fL Performing Lab: see note - [facility] LB Type and Screen (Not yet rev iewed by provider) Interpretation: Performing Lab: Notes/Report: Irradiated [facility] , Blood Type A Positive Antibody Screen NEGATIVE Packed Red Blood Cells (Not yet reviewed by provider) Interpretation: Performing Lab: Notes/Report: Packed Red Blood Cells TRANSFUSED 10/19/24 1128 [id number] AP RC Manual Differential (Not yet reviewed by provider) Interpretation: Performing Lab: Notes/Report: [facility] , Segmented Neutrophils % Manual 58.0 43.0-75.0 Band Neutrophils % 13.0 0-5 % Lymphocytes Percent Manual 20.0 20.5-60.0 % Monocytes Percent Manual 2.0 1.7-12.0 % Eosinophils Percent Manual 0.0 0.9-7.0 % Basophils Percent Manual 1.0 0.2-2.0 % Metamyelocytes % 4.0 Blast % Manual 2.0 Segmented Neut Absolute Manual 2.43 1.4-6.5 10 3/uL Band Neutrophils Absolute 0.5 0.0-0.3 10 3/uL Lymphocytes Absolute Manual 0.84 1.20-3.80 10 3/uL Monocytes Absolute Manual 0.08 0.30-0.80 10 3/ uL Eosinophils Absolute Manual 0.00 0.00-0.70 10 3/uL Basophils Abs Manual 0.04 0.00-0.10 10 3/uL Metamyelocytes Absolute Manual 0.16 Blast Absolute Manual 0.08 Anisocytosis 2+ Ovalocytes 2+ Performing Lab: see note ML - [facility] LB PROF CHEM 8 (BAS METB) (Not yet reviewed by provider) Interpretation: Performing Lab: Notes/Report: [facility] , Sodium 139 136-145 mmol/L Potassium 4.7 3.5-5.1 mmol/L Chloride 103 98-107 mmol/L Carbon Dioxide 26.1 21.0-32.0 mmol/L Anion Gap 14.6 Glucose 96 74-106 mg/dL Blood Urea Nitrogen 8.0 7.0-18.0 mg/dL Creatinine 0.85 0.70-1.30 mg/dL Estimated GFR ( Radha >60 >=60 mL/min/1.73m 2 Estimated GFR (Non- Sallie >60 >=60 mL/min/1.73m 2 BUN Creatinine Ratio 9.4 Calcium 8.5 8.5-10.1 mg/dL Performing Lab: see note ML - [facility] LB Manual Differential (Not yet reviewed by provider) Interpretation: Performing Lab: Notes/Report: [facility] , Segmented Neutrophils % Manual 59.0 43.0-75.0 Band Neutrophils % 11.0 0-5 % Lymphocytes Percent Manual 24.0 20.5-60.0 % Monocytes Percent Manual 2.0 1.7-12.0 % Eosinophils Percent Manual 0.0 0.9-7.0 % Basophils Percent Manual 1.0 0.2-2.0 % Blast % Manual 3.0 Segmented Neut Absolute Manual 2.53 1.4-6.5 10 3/uL Band Neutrophils Absolute 0.5 0.0-0.3 10 3/uL Lymphocytes Absolute Manual 1.03 1.20-3.80 10 3/uL Monocytes Absolute Manual 0.08 0.30-0.80 10 3/ uL Eosinophils Absolute Manual 0.00 0.00-0.70 10 3/uL Basophils Abs Manual 0.04 0.00-0.10 10 3/uL Blast Absolute Manual 0.12 Poikilocytosis 1+ Ovalocytes 1+ Performing Lab: see note ML - [facility] LB PROF 14(COMP METB) (Not yet reviewed by provider) Interpretation: Performing Lab: Notes/Report: [facility] , Sodium 136 136-145 mmol/L Potassium 4.8 3.5-5.1 mmol/L Chloride 101 98-107 mmol/L Carbon Dioxide 26.2 21.0-32.0 mmol/L Anion Gap 13.6 Glucose 91 74-106 mg/dL Blood Urea Nitrogen 12.0 7.0-18.0 mg/dL Creatinine 0.79 0.70-1.30 mg/dL Estimated GFR ( Radha >60 >=60 mL/min/1.73m 2 Estimated GFR (Non- Sallie >60 >=60 mL/min/1.73m 2 BUN Creatinine Ratio 15.2 Calcium 9.0 8.5-10.1 mg/dL Bilirubin Total 0.7 0.2-1.0 mg/dL Aspartate Amino Transferase 18 15-37 U/L Alanine Aminotransferase 13 16-63 U/L Alkaline Phosphatase 88 46-116 U/L Total Protein 7.7 6.4-8.2 g/dL Albumin Level 3.6 3.4-5.0 g/dL Globulin 4.1 Albumin Globulin Ratio 0.9 Performing Lab: see note ML - [facility] LB PERIPHERAL SMEAR (Not yet re viewed by provider) Interpretation: Performing Lab: Notes/Report: [facility] , Peripheral Smear SEE SCANNED REPORT Performing Lab: see note ML - [facility] LB LDH (Not yet reviewed by pro vider) Interpretation: Performing Lab: Notes/Report: [facility] , Lactate Dehydrogenase 882 85-227 U/L Performing Lab: see note ML - [facility] LB IRON AND TIBC (Not yet revie wed by provider) Interpretation: Performing Lab: Notes/Report: [facility] , Iron 157.0 65.0-175.0 ug/dL Total Iron Binding Capacity 233.0 250.0-450.0 ug/dL Percent Iron Saturation 67.4 Performing Lab: see note ML - [facility] LB FERRITIN (Not yet reviewed b y provider) Interpretation: Performing Lab: Notes/Report: [facility] , Ferritin 615.0 26.0-388.0 ng/mL Performing Lab: see note ML - [facility] LB Manual Differential (Not yet reviewed by provider) Interpretation: Performing Lab: Notes/Report: [facility] , Segmented Neutrophils % Manual 64.0 43.0-75.0 Band Neutrophils % 3.0 0-5 % Lymphocytes Percent Manual 21.0 20.5-60.0 % Monocytes Percent Manual 4.0 1.7-12.0 % Eosinophils Percent Manual 0.0 0.9-7.0 % Basophils Percent Manual 2.0 0.2-2.0 % Metamyelocytes % 2.0 Blast % Manual 4.0 Segmented Neut Absolute Manual 3.77 1.4-6.5 10 3/uL Band Neutrophils Absolute 0.2 0.0-0.3 10 3/uL Lymphocytes Absolute Manual 1.23 1.20-3.80 10 3/uL Monocytes Absolute Manual 0.23 0.30-0.80 10 3/ uL Eosinophils Absolute Manual 0.00 0.00-0.70 10 3/uL Basophils Abs Manual 0.11 0.00-0.10 10 3/uL Metamyelocytes Absolute Manual 0.11 Blast Absolute Manual 0.23 Anisocytosis 2+ Performing Lab: see note ML - [facility] LB Manual Differential (Not yet reviewed by provider) Interpretation: Performing Lab: Notes/Report: [facility] , Segmented Neutrophils % Manual 82.0 43.0-75.0 Band Neutrophils % 2.0 0-5 % Lymphocytes Percent Manual 10.0 20.5-60.0 % Monocytes Percent Manual 2.0 1.7-12.0 % Eosinophils Percent Manual 0.0 0.9-7.0 % Basophils Percent Manual 3.0 0.2-2.0 % Myelocytes % Manual 1.0 Segmented Neut Absolute Manual 4.42 1.4-6.5 10 3/uL Band Neutrophils Absolute 0.1 0.0-0.3 10 3/uL Lymphocytes Absolute Manual 0.54 1.20-3.80 10 3/uL Monocytes Absolute Manual 0.10 0.30-0.80 10 3/ uL Eosinophils Absolute Manual 0.00 0.00-0.70 10 3/uL Basophils Abs Manual 0.16 0.00-0.10 10 3/uL Myelocytes Absolute Manual 0.05 Anisocytosis 2+ Performing Lab: see note ML - [facility] LB Reason For Referral No Information Encounters Encounter Location Date Provider Diagnosis [facility] Oncology [address] [place] [address] 10/09/2024 [facility] Oncology [address] [place] [address] 10/30/2024 Ke[facility] Oncology [address] [place] [address] 11/27/2024 Ke[facility] Oncology [address] [place] [address] 11/27/2024 Ke[facility] Oncology [address] [place] [address] 12/04/2024 Keisha Hopper Plan Of Treatment Pending Test Test Name Order Date CBC AUTO DIFF 10/09/2024 CBC AUTO DIFF 10/18/2024 CBC AUTO DIFF 11/13/2024 CBC AUTO DIFF 10/30/2024 CBC AUTO DIFF 11/27/2024 CBC AUTO DIFF 12/04/2024 FERRITIN 10/09/2024 IRON AND TIBC 10/09/2024 LDH 10/09/2024 PERIPHERAL SMEAR 10/09/2024 PROF 14(COMP METB) 10/09/2024 PROF 14(COMP METB) 11/13/2024 PROF CHEM 8 (BAS METB) 10/18/2024 PROF CHEM 8 (BAS METB) 10/30/2024 CT CHEST W CON 11/16/2024 Manual Differential 10/30/2024 Manual Differential 11/27/2024 Manual Differential 12/04/2024 Manual Differential 10/18/2024 Manual Differential 11/13/2024 Manual Differential 10/09/2024 Packed Red Blood Cells 11/13/2024 Packed Red Blood Cells 10/18/2024 Packed Red Blood Cells 11/13/2024 Packed Red Blood Cells 11/27/2024 Type and Screen 11/27/2024 Type and Screen 10/18/2024 Type and Screen 11/13/2024 CT abdomen pelvis w con 11/16/2024 Erythropoietin (EPO), Serum 10/09/2024 Next Appt Details Provider Name:Keisha Hopper , 12/11/2024 01:00:00 PM, [address] [place], [address], Provider Name:Keisha Hopper , 12/18/2024 01:00:00 PM, [address] [place], [address], Provider Name:Keisha Darbywla , 12/25/2024 01:15:00 PM, [address] [place], [address], Provider Name:Keisha Hopper , 12/25/2024 01:30:00 PM, [address] [place], [address], Insurance Providers Payer Name Payer Address Payer Phone Subscriber Number Group Number Insured Name Patient Relationship to Insured Coverage Start Date Coverage End Date [employer] [address] [place] [address] [id number] PENNY MCQUEEN Self - patient is the insured
--- OUTSIDE RECORDS SUMMARY | 2024-12-06 08:06 | XMS_ITS | Encounter Summary ---
Author Organization [facility] [employer] Address [facility] [id number] [address] [place] [address] Care Team Providers Care Manager Of Selection And Assessment Name Role Phone Dewey Enriquez DO Primary Care Provider [phone] Encounter Details Date Type Department Care Team (Late st Contact Info) Description 09/18/2024 Orders Only [facility] - Family Medicine [address] [place] [address] Dewey Enriquez DO [address], [place] [address] Chronic obstructive pulmonary disease, unspecified COPD type ([facility]-HCC) (Primary Dx) Social History Tobacco Use Types Packs/Day Years Used Date Smoking Tobacco: Former Cigarettes 1 45.2 1 08/26/1978 - 09/02/2024 Smokeless Tobacco: Never Alcohol Use Standard Drinks/Week Comments Yes 35 (1 standard drink = 0.6 oz pu re alcohol) 4 or 5 a night [employer] Utilities Answer Date Recorded In the past 12 months has [employer], gas, oil, or water [employer] threatened to shut off services in your home? No 09/08/2024 Social Connection and Isolat ion Panel [NHANES] Answer Date Recorded In a typical week, how many times do you talk on the phone with family, friends, or neighbors? Twice a week 06/25/2024 How often do you get togethe r with friends or relatives? Twice a week 06/25/2024 How often do you attend [facility] or mormon services? Never 06/25/2024 Do you belong to any clubs o r organizations such as judaism groups, unions, fraternal or athletic groups, or [...] Answer Date Recorded Total Score 0 09/21/2024 [facility] of Occupat ional Health - Occupational Stress [...] Recorded Do you need help finding a [facility] career center and/or a training program? No [...] Description 01/03/2025 11:00 AM EDT Office Visit [facility] - Medical Oncology Critical access hospital[address] [place] [address] Stephane Rincon MD [address] [place] [address] [address] [place] [address] 03/07/2025 10:00 AM EDT Office Visit [facility] - Family Medicine [address] [place] [phone] Dewey Enriquez DO [address] [facility] [place] [address] documented as of this encounter Goals Goal Patient Goal Type Associated Problems Recent Progress Patient-Stated? Author <enter goal here> General Yes Molly Clark LSW Note: Evaluation of progress towards goal: Current Discharge Plan; home with spouse, self care, denies needs at this time. documented as of this encounter Results * Pulmonary function test Complete PFT w/ BD (Spirometry (Flow Volume Loop) pre/post short acting bronchodilator w/ DLCO (diffusion study) and Lung Volume) (09/27/2024 9:28 AM EDT) us Dewey Enriquez DO PFT ORDERABLES Final Result MANUALLY TRANSCRIBED RESULTS documented in this encounter Visit Diagnoses Diagnosis Chronic obstructive pulmonary disease, unspecified COPD type (CMS-HCC)- Primary documented in this encounter Additional Health Concerns Assessment Noted Time PHQ-9 Depression Total Score: 0 09/06/19 10:28 AM EST documented as of this encounter Care Teams Manager Of Selection And Assessment Relationship Specialty Start Date End Date Dewey Enriquez DO [address] [place] [address] PCP - General Family Medicine 09/07/24 documented as of this encounter
--- OUTSIDE RECORDS SUMMARY | 2024-12-06 08:06 | XMS_ITS | Encounter Summary ---
Author Organization [employer] Address [facility] [place] [place]-[id number] [place] [address] Care Team Providers Care Executive Sous Chef Name Role Phone Dewey Enriquez DO Primary Care Provider [phone] Encounter Details Date Type Department Care Team (Late st Contact Info) Description 09/25/2024 [facility]phone [facility] [address] [place] [phone] Evelyn Couch CMA Social History Tobacco Use Types Packs/Day Years Used Date Smoking Tobacco: Former Cigarettes 1 45.2 1 08/26/1978 - 09/02/2024 Smokeless Tobacco: Never Alcohol Use Standard Drinks/Week Comments Yes 35 (1 standard drink = 0.6 oz pu re alcohol) 4 or 5 a night [facility] Utilities Answer Date Recorded In the past 12 months has [employer], gas, oil, or water [employer] threatened to shut off services in your [...] often do you attend chur ch or anabaptist services? Never 06/25/2024 Do you belong to any clubs o r organizations such as confucianist groups, unions, fraternal or athletic groups, or [...] Answer Date Recorded Total Score 0 09/21/2024 [facility] Occupat ional [facility] - Occupational Stress Questionnaire Answer Date [...] Recorded Do you need help finding a [facility] career center and/or a training program? [...] a purpose and direction in my life. Marquita gly Agree 06/25/2024 Sex and Gender Information Value Date Recorded Sex Assigned at Not on file Legal Sex Male 11:28 AM EDT Gender Identity Not on file Sexual Orientation Not on file documented as of this encounter Miscellaneous Notes * Telephone Encounter - Evelyn Couch CMA - 09/25/2024 9:56 AM EDT Patient wants to know how often he needs to have his labs done * Telephone Encounter - Dewey Enriquez DO - 09/25/2024 9:56 AM EDT They will be monitoring it routinely at the hematology office * Telephone Encounter - Evelyn Couch CMA - 09/25/2024 9:56 AM EDT I spoke with the patient's and she understands documented in this encounter Plan of Treatment Upcoming Encounters Date Type Department Care Team (Late st Contact Info) Description 01/03/2025 11:00 AM EDT Office Visit [facility] - Medical Oncology [address] [place] [address] Stephane Rincon MD [address] [facility] [address] [place] [address] 03/07/2025 10:00 AM EDT Office Visit [facility] - Family Medicine [address] [place] [address] Dewey Enriquez DO [address], [place] [address] documented as of this encounter Goals Goal Patient Goal Type Associated Problems Recent Progress Patient-Stated? Author <enter goal here> General Yes Molly Clark BUSINESS ANALYST INTERN Note: Evaluation of progress towards goal: Current Discharge Plan; home with spouse, self care, denies needs at this time. documented as of this encounter Visit Diagnoses Not on filedocumented in this encounter Additional Health Concerns Assessment Noted Time PHQ-9 Depression Total Score: 0 09/22/19 25 9:03 AM EST documented as of this encounter Care Teams Executive Sous Chef Relationship Specialty Start Date End Date Dewey Enriquez DO [address], [place] [address] PCP - General Family Medicine 09/07/24 documented as of this encounter
--- NOTE | 2024-12-06 08:07 | XR_ITS ---
The [address] [address] Patient Name: PENNY MCQUEEN MRN: [id number] date: 1960 Sex: M Assigned Patient Location: [facility] Current Patient Location: [facility] Accession/Order Number: [id number] Exam Date: 12/06/2024 08:49 Report Date: 12/06/2024 08:50 At the request of: LOUIS WARD Procedure: XR chest 2V XR chest 2V 12/06/2024 8:34 AM SIGNS AND SYMPTOMS: ^Pleural Effusion PROTOCOL: Frontal and lateral radiograph of the chest COMPARISON: 11/16/2024 FINDINGS: The trachea is midline. The heart and mediastinal structures are within normal limits. Pleural effusions have resolved in the interval. The lung parenchyma is clear. The bony thorax is intact. XR/XR chest 2V IMPRESSION: No acute cardiopulmonary pathology. Interval resolution of bilateral pleural effusions. Impression dictated by: Adrian Maher M.D. 12/06/2024 8:50 AM Dictation Location: [place] [address] Electronically authenticated by: [id number] Y Date: 12/06/2024 08:50
--- OUTSIDE RECORDS SUMMARY | 2024-12-06 08:07 | XMS_ITS | Encounter Summary ---
Author Organization [employer] Address [facility] [id number] [address] [place] [address] Care Team Providers Care Press Helper Name Role Phone Dewey Enriquez DO Primary Care Provider [phone] Encounter Details Date Type Department Care Team (Late st Contact Info) Description 10/01/2024 [facility] [address] [place] [phone] Leeanne Weems CMA Social History Tobacco Use Types Packs/Day Years Used Date Smoking Tobacco: Former Cigarettes 1 45.2 1 08/26/1978 - 09/02/2024 Smokeless Tobacco: Never Alcohol Use Standard Drinks/Week Comments Yes 35 (1 standard drink = 0.6 oz pu re alcohol) 4 or 5 a night [facility] Utilities Answer Date Recorded In the past 12 months has [employer], gas, oil, or water company threatened [...] often do you attend chur ch or yazidism services? Never 06/25/2024 Do you belong to any clubs o r organizations such as pentecostalism groups, unions, fraternal or athletic groups, or [...] Date Recorded Total Score 0 09/21/2024 [facility] of Occupat ional Health - Occupational [...] Recorded Do you need help finding a [facility] career center and/or a training program? No [...] encounter Miscellaneous Notes * Telephone Encounter - Leeanne Weems CMA - 10/01/2024 10:[address] becerra's office called asking for a referral . Stating pt called an made an appointment. I did not see anything in there for a broadcast systems engineer , just one for dr. hubbard .pls advise * Telephone Encounter - Dewey Enriquez DO - 10/01/2024 10:25 AM EDT Okay. Order sent documented in this encounter Plan of Treatment Upcoming Encounters Date Type Department Care Team (Late st Contact Info) Description 01/03/2025 11:00 AM EDT Office Visit [facility] - Medical Oncology [address] [place] [address] Stephane Rincon MD [address] [place] [address] [address] [place] [address] 03/07/2025 10:00 AM EDT Office Visit [facility] - Family Medicine [address] [place] [address] Dewey Enriquez DO [address], [facility] [place] [address] documented as of this encounter Goals Goal Patient Goal Type Associated Problems Recent Progress Patient-Stated? Author <enter goal here> General Yes Molly Clark, SKIRT CLIPPER Note: Evaluation of progress towards goal: Current Discharge Plan; home with spouse, self care, denies needs at this time. documented as of this encounter Visit Diagnoses Not on filedocumented in this encounter Additional Health Concerns Assessment Noted Time PHQ-9 Depression Total Score: 0 09/22/19 9:03 AM EST documented as of this encounter Care Teams Press Helper Relationship Specialty Start Date End Date Dewey Enriquez DO [address] [facility], [place] [address] PCP - General Family Medicine 09/07/24 documented as of this encounter
--- OUTSIDE RECORDS SUMMARY | 2024-12-06 08:07 | XMS_ITS | Encounter Summary ---
Author Organization [employer] Address [id number] [address] [place] [address] Care Team Providers Care Hose Maker Name Role Phone Dewey Enriquez DO Primary Care Provider [phone] Encounter Details Date Type Department Care Team (Late st Contact Info) Description 10/25/2024 [facility] [address] [place] [phone] Leeanne Weems CMA Social History Tobacco Use Types Packs/Day Years Used Date Smoking Tobacco: Former Cigarettes 1 45.2 1 08/26/1978 - 09/02/2024 Smokeless Tobacco: Never Alcohol Use Standard Drinks/Week Comments Yes 35 (1 standard drink = 0.6 oz pu re alcohol) 4 or 5 a night [facility] Utilities Answer Date Recorded In the past 12 months has [employer], gas, oil, or water company threatened [...] often do you attend chur ch or sabianist services? Never 06/25/2024 Do you [...] Answer Date Recorded Total Score 0 09/21/2024 [facility] of Occupat ional Health - Occupational Stress [...] Recorded Do you need help finding a [facility] and/or a training program? [...] purpose and direction in my life. Marquita rashid Agree 06/25/2024 Sex and Gender Information Value Date Recorded Sex Assigned at Not on file Legal Sex Male 11:28 AM EDT Gender Identity Not on file Sexual Orientation Not on file documented as of this encounter Miscellaneous Notes * Telephone Encounter - Leeanne Weems CMA - 10/25/2024 4:52 PM EDT Pts called stated that the lung dr he was going to called stated that they dont take their insurance. [facility] [place] * Telephone Encounter - Dewey Enriquez DO - 10/25/2024 4:52 PM EDT I do not think I made the referral to the regional business manager. What is it for? * Telephone Encounter - Leeanne Weems CMA - 10/25/2024 4:52 PM EDT I called to pt talked with , she stated that Dr Giron ia the one that wants him to go and get cleared , when asked to have that dr to do the referral he told her pcp needs to do it ? * Telephone Encounter - Dewey Enriquez DO - 10/25/2024 4:52 PM EDT Have him come in for an appointment to discuss. I talked with his oncologist and there are some things I need to talk to him about * Telephone Encounter - Leeanne Weems CMA - 10/25/2024 4:[address] now documented in this encounter Plan of Treatment Upcoming Encounters Date Type Department Care Team (Late st Contact Info) Description 01/03/2025 11:00 AM EDT Office Visit [facility] - Medical Oncology [address] [place] [address] Stephane Rincon MD [address] [facility] [address] [place] [phone] 03/07/2025 10:00 AM EDT Office Visit [facility] - Family Medicine [address] [place] [phone] Dewey Enriquez DO [address] [place] [address] documented as of this encounter Goals Goal Patient Goal Type Associated Problems Recent Progress Patient-Stated? Author <enter goal here> General Yes Molly Clark, AIX ARCHITECT Note: Evaluation of progress towards goal: Current Discharge Plan; home with spouse, self care, denies needs at this time. documented as of this encounter Visit Diagnoses Not on filedocumented in this encounter Additional Health Concerns Assessment Noted Time PHQ-9 Depression Total Score: 0 09/22/19 9:03 AM EST documented as of this encounter Care Teams Hose Maker Relationship Specialty Start Date End Date Dewey Enriquez DO [address] [place] [address] PCP - General Family Medicine 09/07/24 documented as of this encounter
--- OUTSIDE RECORDS SUMMARY | 2024-12-06 08:07 | XMS_ITS | Encounter Summary ---
Author Organization [facility] Address [id number] [address] [place] [address] Care Team Providers Care Marketing Research Intern Name Role Phone Dewey Enriquez DO Primary Care Provider [phone] Encounter Details Date Type Department Care Team (Late st Contact Info) Description 10/08/2024 Orders Only [facility] Internal Medicine - Family Medicine [address] [place] [phone] Evelyn Couch CMA Severe anemia; Special screening for malignant neoplasm of colon Social History Tobacco Use Types Packs/Day Years Used Date Smoking Tobacco: Former Cigarettes 1 45.2 1 08/26/1978 - 09/02/2024 Smokeless Tobacco: Never Alcohol Use Standard Drinks/Week Comments Yes 35 (1 standard drink = 0.6 oz pu re alcohol) 4 or 5 a night [facility] [employer] Answer Date Recorded In the past 12 months has [employer] electric, gas, oil, or water company threatened [...] often do you attend chur ch or mosque services? Never 06/25/2024 Do you belong to any clubs o r organizations such as roman catholic groups, unions, fraternal or athletic groups, or [...] Answer Date Recorded Total Score 0 09/21/2024 [facility] - [...] Recorded Do you need help finding a [facility] career center and/or a training [...] a purpose and direction in my life. Veln gly Agree 06/25/2024 Sex and Gender Information Value Date Recorded Sex Assigned at Not on file Legal Sex Male 11:28 AM EDT Gender Identity Not on file Sexual Orientation Not on file documented as of this encounter Plan of Treatment Upcoming Encounters Date Type Department Care Team (Late st Contact Info) Description 01/03/2025 11:00 AM EDT Office Visit [facility] - Medical Oncology [facility] [place] [phone] Stephane Rincon MD [address] [place] [address] [address] [place], [place] [phone] 03/07/2025 10:00 AM EDT Office Visit [facility] - Family Medicine [address] [place] [phone] Dewey Enriquez DO [address] [facility] [place] [address] documented as of this encounter Goals Goal Patient Goal Type Associated Problems Recent Progress Patient-Stated? Author <enter goal here> General Yes Molly Clark, [employer] INST[employer]ER Note: Evaluation of progress towards goal: Current Discharge Plan; home with spouse, self care, denies needs at this time. documented as of this encounter Procedures Procedure Name Priority Date/Time Associated Diagnosis Comments AMB REFERRAL TO GASTROENTEROLOGY Routine 10/08/2024 10:18 AM EDT Severe anemia Special screening for malignant neoplasm of colon documented in this encounter Results * Ambulatory referral to Gastroenterology ([facility]) (10/08/2024 10:18 AM EDT) us Dewey G Furlong DO OUTPATIENT REFERRAL ORDERABL ES Final Result MANUALLY TRANSCRIBED RESULTS documented in this encounter Visit Diagnoses Diagnosis Severe anemia Special screening for malignant neoplasm of colon Special screening for malignant neoplasms, colon documented in this encounter Additional Health Concerns Assessment Noted Time PHQ-9 Depression Total Score: 0 09/22/19 9:03 AM EST documented as of this encounter Care Teams Marketing Research Intern Relationship Specialty Start Date End Date Dewey Enriquez DO [address] [place] [address] PCP - General Family Medicine 09/07/24 documented as of this encounter
--- OUTSIDE RECORDS SUMMARY | 2024-12-06 08:07 | XMS_ITS | Encounter Summary ---
Author Organization [employer] Address [id number] [address] [place] [address] Care Team Providers Care Team Physician Name Role Phone Dewey Enriquez DO Primary Care Provider [phone] Encounter Details Date Type Department Care Team (Late st Contact Info) Description 09/27/2024 [facility] [address] [place] [phone] Leeanne Weems CMA Social History Tobacco Use Types Packs/Day Years Used Date Smoking Tobacco: Former Cigarettes 1 45.2 1 08/26/1978 - 09/02/2024 Smokeless Tobacco: Never Alcohol Use Standard Drinks/Week Comments Yes 35 (1 standard drink = 0.6 oz pu re alcohol) 4 or 5 a night [facility] Utilities Answer Date Recorded In the past 12 months has [employer] electric, gas, oil, or water company threatened [...] often do you attend chur ch or synagogue services? Never 06/25/2024 Do you belong to any clubs o r organizations such as mormon groups, unions, fraternal or athletic groups, or [...] Date Recorded Total Score 0 09/21/2024 [facility] - Occupational Stress [...] Do you need help finding a college hospitalal career center and/or a training program? [...] Telephone Encounter - Leeanne Weems CMA - 09/27/2024 12:49 PM EDT ----- Message from Dr. Dewey Enriquez DO sent at 09/27/2024 12:40 PM EDT ----- His PFTs didn't look too bad. It did not show a clear-cut diagnosis of COPD or restrictive lung disease. * Telephone Encounter - Leeanne Weems CMA - 09/27/2024 12:49 PM EDT Called pt read note he said ok thank you documented in this encounter Plan of Treatment Upcoming Encounters Date Type Department Care Team (Late st Contact Info) Description 01/03/2025 11:00 AM EDT Office Visit [facility] - Medical Oncology [facility] [place] [address] Stephane Rincon MD [address] [place] [address] [address] [place] [id number] 03/07/2025 10:00 AM EDT Office Visit [facility] - Family Medicine [address] [place] [phone] Dewey Enriquez DO [address], [facility] [place], [place] [phone] documented as of this encounter Goals Goal [...] documented as of this encounter Care Teams Team Physician Relationship Specialty Start Date End Date Dewey Enriquez DO [address], [facility] [place] [address] PCP - General Family Medicine 09/07/24 documented as of this encounter
--- OUTSIDE RECORDS SUMMARY | 2024-12-06 08:07 | XMS_ITS | Clinical Summary ---
Author Organization [facility] tem Address [id number] [address] [place] [address] Care Team Providers Care Portable Router Operator Name Role Phone Dewey Enriquez DO Primary Care Provider Allergies No known active allergies Medications cholecalciferol , vitamin D3, (VITAMIN D3) 10 mcg (400 unit) capsule Active rosuvastatin (CRESTOR) 10 mg tablet Take 1 tablet (10 mg total) by mouth nightly. 30 tablet 11 4 Active melatonin 10 mg tablet Take 1 tablet by mouth nightly. 5 Active OJJAARA 100 mg tablet 5 Active triamcinolone (KENALOG) 0.1 % cream Apply to affected area on trunk and extremities EVERY DAY to TWICE DAILY NEEDED 5 Active prochlorperazin e (COMPAZINE) 5 mg tablet prn 5 Active Active Problems Problem Noted Date Diagnosed Date Pleural effusion, right 11/01/2024 Primary myelofibrosis 10/04/2024 Splenomegaly 10/04/2024 Severe anemia 09/08/2024 Lymphadenopathy, inguinal 09/08/2024 Memory loss 09/06/2024 Resolved Problems Problem Noted Date Diagnosed Date Resolved Date Traumatic leg ulcer, right, with fat layer exposed 09/10/2024 11/01/2024 Cellulitis of right lower extremity 09/08/2024 11/01/2024 Cigarette smoker 06/25/2024 09/21/2024 Encounters Date Type Department Care Team Description 12/05/2024 9:30 AM EDT Office Visit [facility] Internal Medicine - Family Medicine [address] [place] [place] [address] Dewey Enriquez, Pleural effusion, right (Primary Dx); Primary myelofibrosis (CMS-HCC) 12/05/2024 Travel 11/23/2024 Orders Only [facility] Internal Medicine - Family Medicine [address] [place] [address] Evelyn Couch CMA Pleural effusion, right 11/16/2024 Telephone [facility] Pulmonary/Sleep Medicine [address] [place] [address] Ashley Al RMA 11/01/2024 9:15 AM EDT Office Visit [facility] Internal Medicine - Family Medicine [address] [place] [address] Dewey Enriquez, Primary myelofibrosis ([facility]) (Primary Dx); Pleural effusion, right; Memory loss 11/01/2024 Travel 10/25/2024 Telephone [facility] Internal [facility] - Family Medicine [address] [place] [address] Leeanne Weems CMA 10/08/2024 Orders Only [facility] Internal Medicine - Family Medicine [address] [place] [address] Evelyn Couch CMA Severe anemia; Special screening for malignant neoplasm of colon 10/04/2024 10:30 AM EDT Office Visit [facility] - Medical Oncology [address] [place] [phone] Stephane Rincon MD Primary myelofibrosis ([facility]) (Primary Dx); Severe anemia; Lymphadenopathy, inguinal; Splenomegaly 10/04/2024 Documentation [facility] - Medical Oncology [address] [place] [phone] Misti Fuentes RN 10/04/2024 Travel 10/01/2024 Orders Only [facility] Internal [facility] Family Medicine [address] [place] [address] Dewey Enriquez, Severe anemia (Primary Dx) 10/01/2024 Telephone [facility] Internal Medicine - Family Medicine [address] [place] [address] Leeanne Weems, [facility] 09/27/2024 Telephone [facility] Internal Medicine - Family Medicine [address] [place] [address] Leeanne Weems, [facility] 09/27/2024 Orders Only [facility] Internal Medicine - Family Medicine [address] [place] [address] Evelyn Couch, [facility] Chronic obstructive pulmonary disease, unspecified COPD type ([facility]) 09/25/2024 Telephone [facility] Internal Medicine - Family Medicine [address] [place] [address] Evelyn Couch, [facility] 09/21/2024 6:21 PM EST - 09/21/2024 11:59 PM EST Hospital Encounter [facility] [address] [facility] [address] [place] [address] Hyperglycemia; Severe anemia Discharge Disposition: Home 09/21/2024 9:00 AM EST Office Visit [facility] Internal Medicine - Family Medicine [address] [place] [address] Dewey Enriquez, Severe anemia (Primary Dx); Lymphadenopathy, inguinal; Ex-cigarette smoker; Hyperglycemia; Special screening for malignant neoplasm of colon 09/21/2024 Travel 09/18/2024 Orders Only [facility] Internal Medicine - Family Medicine [address] [place] [address] Dewey Enriquez, Chronic obstructive pulmonary disease, unspecified COPD type ([facility]) (Primary Dx) 09/14/2024 Orders Only [facility] Internal Medicine - Family Medicine [address] [place] [address] Dewey Enriquez DO 09/13/2024 Telephone [facility] Internal Medicine - Family Medicine [address] [place] [address] Zeny Gaytan, commissioning editor Of Care 09/12/2024 Telephone [facility] Pulmonary/Sleep Medicine [address] [place] [phone] Guerline Cha, SIDE PANEL HANGER 09/12/2024 Telephone [facility] Pulmonary/Sleep Medicine [address] [place] [address] Willow Marsh, POND SUPERVISOR-SALES DEVELOPMENT REPRESENTATIVE 09/11/2024 Orders Only [facility] - Medical Oncology [address] [place] [address] Pam Powers, MICHAEL Lymphadenopathy (Primary Dx); Lymphoma of intra-abdominal lymph nodes, unspecified lymphoma type (CMS-HCC); 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, unspecified lymphoma type (CMS-HCC); Primary pulmonary lymphoma (CMS-HCC); Intra-abdominal lymphadenopathy 09/08/2024 1:18 AM EST - 09/12/2024 3:28 PM EST Hospital Encounter [facility] - GEN 6 Acute [address] [place] [address] Roe Damian MD Sahlieh, Ali, MD Ibrahim, Rahaf N, MD Noumi, Andre, MD Dimmerling, Jo Hoyt MD Severe anemia (Primary Dx); Lymphadenopathy; Splenomegaly; Cellulitis of right lower extremity; Wound of right lower extremity, initial encounter; 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, unspecified lymphoma type (CMS-HCC); Lymphoma of intra-abdominal lymph nodes, unspecified lymphoma type (CMS-HCC) Discharge Disposition: Home 09/08/2024 [facility]phone [facility] [address] [place] [address] Latha Mendoza Consult (Right pleural effusion concern for malignancy) 09/08/2024 Travel 09/07/2024 8:42 AM EST - 09/08/2024 12:26 AM EST Emergency [facility] - Emergency [address] [place] [address] Salazar Martinez MD Anemia, unspecified type (Primary Dx); Lymphadenopathy; Severe anemia; Splenomegaly Discharge Disposition: Another Hospital from Last 3 Months Family History Medical History Relation Name Comments Heart attack Brother Diabetes Sister 2 Relation Name Status Comments Brother Father Mother Sister 1 Alive Sister 2 Alive Sister 3 Alive Sister 4 Alive Social History Tobacco Use Types Packs/Day Years Used Date Smoking Tobacco: Former Cigarettes 1 45.2 1 08/26/1978 - 09/02/2024 Smokeless Tobacco: Never Tobacco Cessation:Counseling Given: Not Answered Alcohol Use Standard Drinks/Week Comments Yes 31 (1 standard drink = 0.6 oz pu re alcohol) 1 a night [facility] Utilities Answer Date Recorded In the past 12 months has [employer], gas, oil, or water [facility] threatened to shut off services in your [...] often do you attend chur ch or religion services? Never 06/25/2024 Do you belong to [...] Answer Date Recorded Total Score 0 12/05/2024 [facility] - Occupational Stress Questionnaire Answer Date Recorded [...] Recorded Do you need help finding a [facility] career center and/or a training program? No [...] on file Sexual Orientation Not on file Last Filed Vital Signs Vital Sign Reading [...] Mass Index 22.29 12/05/2024 9:25 AM EDT Plan of Treatment Upcoming Encounters Date Type Department Care Team (Late st Contact Info) Description 01/03/2025 11:00 AM EDT Office Visit [facility] - Medical Oncology [address] [place] [address] Stephane Rincon MD [address] [facility] [address] [place] [address] 03/07/2025 10:00 AM EDT Office Visit [facility] Internal Medicine - Family Medicine [address] [place] [phone] Dewey Enriquez, [address] [facility] [place] [address] Health Maintenance Due Date Last Done Comments Zoster (Shingles) Vaccine (1 of 2) 1979 Abdominal Aortic Aneurysm (A AA) Screen 12/05/2024 Postponed from 10/06 (Patient Refused) Influenza Vaccine 03/18/2025 Medicare Annual Wellness Visit 06/25/2025 06/25/2024 Colon Cancer Screening 3 Yea r Cologuard 07/18/2025 Postponed from 10/06 (Patient Refused) Adult BMI Screening 12/05/2025 12/05/2024 Depression Screening 12/05/2025 12/05/2024 Fall Risk Screening 12/05/2025 12/05/2024 Tobacco Screening 12/05/2025 12/05/2024 DTaP,Tdap and Td Vaccines (2 - Td or Tdap) 01/20/2027 01/20/2017 Goals Goal Patient Goal Type Associated Problems Recent Progress Patient-Stated? Author <enter goal here> General Yes Molly Clark LSW Note: Evaluation of progress towards goal: Current Discharge Plan; home with spouse, self care, denies needs at this time. Medical Devices Not on file Procedures Procedure Name Priority Date/Time Associated Diagnosis Comments XR CHEST 2 VWS Routine 11/23/2024 7:15 AM EDT Pleural effusion, right AMB REFERRAL TO GASTROENTEROLOGY Routine 10/08/2024 10:18 AM EDT Severe anemia Special screening for malignant neoplasm of colon PULMONARY FUNCTION TEST Routine 09/28/19 9:28 AM EDT Chronic obstructive pulmonary disease, unspecified COPD type ([facility]) CBC (NO DIFF) Routine 09/21/2024 9:30 AM EST Severe anemia BASIC METABOLIC PANEL Routine 09/21/2024 9:30 AM EST Hyperglycemia HEMOGLOBIN A1C Routine 09/21/2024 9:30 AM EST Hyperglycemia BEDSIDE GLUCOSE Routine 09/12/2024 12:32 PM EST BEDSIDE GLUCOSE Routine 09/12/2024 8:00 AM EST CBC WITH AUTO DIFFERENTIAL Routine 09/12 6:30 AM EST BASIC METABOLIC PANEL Routine 09/12/2024 6:30 AM EST BEDSIDE GLUCOSE Routine 09/11/2024 9:24 PM EST XR CHEST 1 VW Routine 09/11/2024 7:58 PM EST HEMOGLOBIN AND HEMATOCRIT, BLOOD Routine 09/11/2024 6:27 PM EST BEDSIDE GLUCOSE Routine 09/11/2024 4:25 PM EST TRANSFUSE RED BLOOD CELLS Routine 2024 2:06 PM EST XR CHEST 1 VW Routine 09/11/2024 1:47 PM EST RESP PATHOGENS PANEL/SARS-COV-2 Routine 09/11/2024 1:02 PM EST BEDSIDE GLUCOSE Routine 09/11/2024 12:35 PM EST CROSSMATCH RBC Routine 09/11/2024 10:30 AM EST CROSSMATCH RBC Routine 09/11/2024 10:30 AM EST CROSSMATCH RBC Routine 09/11/2024 10:30 AM EST TYPE AND SCREEN Routine 09/11/2024 10:30 AM EST BEDSIDE GLUCOSE Routine 09/11/2024 9:24 AM EST BASIC METABOLIC PANEL Routine 09/11/2024 5:24 AM EST CBC WITH AUTO DIFFERENTIAL Routine 09/11 5:24 AM EST PROTIME & INR Routine 09/11/2024 5:24 AM EST REPEATED ABORH Routine 09/11/2024 5:00 AM EST BEDSIDE GLUCOSE Routine 09/10/2024 9:22 PM EST VASC VENOUS DUPLEX LOWER BILATERAL Routine 09/10/2024 4:54 PM EST BEDSIDE GLUCOSE Routine 09/10/2024 3:02 PM EST SURGICAL PATHOLOGY Routine 09/10/2024 1: 26 PM EST HC CULT TISSUE BONE MARROW Routine 09/10 1:17 PM EST UNLISTED LAB TEST STAT 09/10/2024 1:1 7 PM EST FLOW CYTOMETRY BONE MARROW STAT 09/10 1:17 PM EST BONE MARROW STAT 09/10/2024 1:17 PM EST IR BX AND ASP BONE MARROW SNGL OR MULT Routine 09/10/2024 1:12 PM EST IR THORACENTESIS W GUIDE RT Routine 08/19 12:50 PM EST ALBUMIN, FLUID Routine 09/10/2024 12:30 PM EST TRIGLYCERIDES, FLUIDS Routine 09/10/2024 12:30 PM EST LDH, FLUID Routine 09/10/2024 12:30 PM EST TOTAL PROTEIN, FLUID Routine 09/10/2024 12:30 PM EST BODY FLUID CELL COUNT Add-On 09/10/2024 12:30 PM EST BODY FLUID CULTURE Routine 09/10/2024 12:30 PM EST BEDSIDE GLUCOSE Routine 09/10/2024 8:31 AM EST PROCALCITONIN Add-On 09/10/2024 7:59 AM EST CBC WITH AUTO DIFFERENTIAL Routine 09/10 7:59 AM EST COMPREHENSIVE METABOLIC PANEL Routine 09/10/2024 7:59 AM EST URIC ACID Routine 09/10/2024 7:59 AM EST PHOSPHORUS Routine 09/10/2024 7:59 AM EST LDH Routine 09/10/2024 7:59 AM EST PROTIME & INR Routine 09/10/2024 7:59 AM EST CYTOLOGY Routine 09/10/2024 7:36 AM EST MR BRAIN W WO CONT Routine 09/09/2024 11:56 AM EST HEPATITIS B SURFACE ANTIGEN Routine 08/19 4:22 AM EST HEPATITIS B SURFACE ANTIBODY QUANTITATION Routine 09/09/2024 4:22 AM EST HEPATITIS B CORE ANTIBODY, TOTAL Routine 09/09/2024 4:22 AM EST PROTIME & INR Routine 09/09/2024 4:22 AM EST CBC WITH AUTO DIFFERENTIAL Routine 09/09 4:22 AM EST MAGNESIUM Routine 09/09/2024 4:22 AM EST BASIC METABOLIC PANEL Routine 09/09/2024 4:[address] CHEST W CONT Routine 09/08/2024 2:43 PM EST SSB ANTIBODY Routine 09/08/2024 9:07 AM EST SSA ANTIBODY Routine 09/08/2024 9:07 AM EST SCLERODERMA ANTIBODY IGG Routine 025 9:07 AM EST ANTI-JO1 IGG Routine 09/08/2024 9:07 AM EST TAVAREZ/THINNER SPRAYER AB IGG Routine 09/08/2024 9:07 AM EST ANTI-TAVAREZ ANTIBODY IGG Routine 09/08/19 25 9:07 AM EST THINNER SPRAYER ANITBODY IGG Routine 09/08/2024 9:07 AM EST DOUBLE STRANDED DNA AB Routine 9:07 AM EST ANTI-CHROMATIN IGG Routine 09/08/2024 9: 07 AM EST PROTEIN ELECTROPHORESIS, SERUM Add-On 09/08/2024 9:07 AM EST IMMUNOELECTROPHORESIS FOR THERAPY MONITORING Add-On 09/08/2024 9:07 AM EST HAPTOGLOBIN Routine 09/08/2024 9:07 AM EST LDH Routine 09/08/2024 9:07 AM EST PROTEIN, TOTAL Routine 09/08/2024 9:07 AM EST BATOOL SCREEN W/ REFLEX Routine 09/08/2024 9:07 AM EST SURGICAL PATHOLOGY Routine 09/08/2024 3: 08 AM EST LIVER PANEL Add-On 09/08/2024 3:08 AM EST B-TYPE NATRIURETIC PEPTIDE Routine 09/08 3:08 AM EST CLINICAL PATHOLOGY BLOOD SMEAR REVIEW Routine 09/08/2024 3:08 AM EST FLOW CYTOMETRY BLOOD ONLY Routine 2024 3:08 AM EST FOLATE Routine 09/08/2024 3:08 AM EST PROTIME & INR Routine 09/08/2024 3:08 AM EST CBC WITH AUTO DIFFERENTIAL Routine 09/08 3:08 AM EST MAGNESIUM Routine 09/08/2024 3:08 AM EST BASIC METABOLIC PANEL Routine 09/08/2024 3:08 AM EST CLINICAL PATHOLOGY REVIEW Routine 2024 12:00 AM EST from Last 3 Months Results * X-ray chest 2 views (11/23/2024 7:15 AM EDT) Anatomical Region Laterality Modality Body, Chest N/A Computed Radiogr aphy Result [facility] us Dewey Enriquez DO IMG DIAGNOSTIC IMAGING ORDER FERN Final Result * Ambulatory referral to Gastroenterology (Non-[facility]) (10/08/2024 10:18 AM EDT) us Dewey Enriquez DO OUTPATIENT REFERRAL ORDERABL ES Final Result Performing Organization Address City/[facility] Co de Phone Number MANUALLY TRANSCRIBED RESULTS * Pulmonary function test Complete PFT w/ BD (Spirometry (Flow Volume Loop) pre/post short acting bronchodilator w/ DLCO (diffusion study) and Lung Volume) (09/27/2024 9:28 AM EDT) Dewye Enriquez DO PFT ORDERABLES Final Result Performing Organization Address [facility] de Phone Number MANUALLY TRANSCRIBED RESULTS * (ABNORMAL) CBC without diff (09/21/2024 9:30 AM EST) White Blood Cells 5.3 4.0 - 11.0 X10E9/L 09/21/2024 6:52 PM [facility] RBC count 2.53(L) 4.10 - 5.70 X10E12/L 09/21/2024 6:52 PM [facility] Hemoglobin 7.7(L) 13.0 - 17.0 g/dL 09/21/2024 6:52 PM [facility] Hematocrit 23.4(L) 39 - 49 % 09/21/2024 6:52 PM [facility] MCV 93 80 - 100 fL 09/21/2024 6:52 PM [facility] MCH 30.3 27 - 34 pg 09/21/2024 6:52 PM [facility] MCHC 32.8 32 - 36 g/dL 09/21/2024 6:52 PM [facility] RDW 21.1(H) 11.5 - 15.0 % 09/21/2024 6:52 PM [facility] Platelets 423 150 - 450 X10E9/L 09/21/2024 6:52 PM [facility] MPV 8.3 7 - 12 fL 09/21/2024 6:52 PM [facility] Blood Blood / Unknown 09/21/2024 9 :30 AM EST 09/21/2024 6:22 PM EST us [facility] BLOOD ORDERABLES Final R esult [facility] [address] [place] [address], [address] [address] * Hemoglobin A1c (09/21/2024 9:30 AM EST) [facility] Hemoglobin A1C 5.3 4.4 - 5.6 % 09/21/2024 9:35 PM [facility] Comment: NOTE ADA Guidelines Result HgbA1c Normal : less than 5.7 % Prediabetes : 5.7 % to 6.4 % Diabetes : > 6.4 % Use with caution in patients with abnormal hemoglobin variants as the half-life of red blood cells and in vivo glycation rates are affected. Average glucose 105 mg/dL 9:35 PM [facility] PLASMA 09/21/2024 9:30 AM EST 09/21/2024 6:22 PM EST [facility] BLOOD ORDERABLES Final R esult [facility] [address] [place] [address], [address] [address] * (ABNORMAL) Basic Metabolic Panel (09/21/2024 9:30 AM EST) Only the most recent of5 resultswithin the time period is included. Pathologist [facility] Sodium 137 134 - 146 mmol/L 09/21/2024 6:57 PM [facility] Potassium, Bld 4.4 3.5 - 5.0 mmol/L 09/21/2024 6:57 PM [facility] Chloride 102 98 - 109 mmol/L 09/21/2024 6:57 PM [facility] CO2 29 22 - 32 mmol/L 09/21/2024 6:57 PM [facility] Anion gap 6 5 - 15 mmol/L 09/21/2024 6:57 PM [facility] BUN 11 5 - 27 mg/dL 09/21/2024 6:57 PM [facility] Creatinine 0.67 0.60 - 1.30 mg/dL 09/21/2024 6:57 PM [facility] Comment:METHOD TRACEABLE TO IDMS STANDARD Glucose 103(H) 65 - 99 mg/dL 09/21/2024 6:57 PM [facility] Calcium 9.0 8.5 - 10.5 mg/dL 09/21/2024 6:57 PM [facility] eGFR (CKD-EPI)non-ra ce dependent >90 >59 ml/min/1.7 3sq.m 09/21/2024 6:57 PM [facility] Comment: Reported eGFR is based on the CKD-EPI 2020 equation that does not use a race coefficient. PLASMA 09/21/2024 9:30 AM EST 09/21/2024 6:22 PM EST us Dewey Enriquez DO LAB BLOOD ORDERABLES Final R esult [facility] [address] [place] [address] * (ABNORMAL) Bedside Glucose *Place/Obtain serum glucose if >500(>600 [facility]) per glucometer. (09/12/2024 12:32 PM EST) Only the most recent of9 resultswithin the time period is included. Bedside glucose 126(H) 65 - 99 mg/dL 09/12/2024 12:35 PM EST [facility] Blood / Unknown 09/12/2024 1 2:32 PM EST 09/12/2024 12:35 PM EST Roe Damian MD POINT OF CARE TEST ORDERABLES Final Result [facility] * (ABNORMAL) CBC auto differential (09/12/2024 6:30 AM EST) Only the most recent of5 resultswithin the time period is included. Pathologist [facility] White Blood Cells 6.8 4.0 - 11.0 X10E9/L 09/12/2024 7:16 AM [facility] RBC count 2.59(L) 4.10 - 5.70 X10E12/L 09/12/2024 7:16 AM [facility] Hemoglobin 7.9(L) 13.0 - 17.0 g/dL 09/12/2024 7:16 AM [facility] Hematocrit 24.1(L) 39 - 49 % 09/12/2024 7:16 AM [facility] MCV 93 80 - 100 fL 09/12/2024 7:16 AM [facility] MCH 30.4 27 - 34 pg 09/12/2024 7:16 AM [facility] MCHC 32.7 32 - 36 g/dL 09/12/2024 7:16 AM [facility] RDW 21.4(H) 11.5 - 15.0 % 09/12/2024 7:16 AM [facility] Platelets 235 150 - 450 X10E9/L 09/12/2024 7:16 AM [facility] MPV 8.3 7 - 12 fL 09/12/2024 7:16 AM [facility] Band 26.0 % 09/12/2024 8:03 AM [facility] Seg neutrophil 66.0 % 09/12/2024 8:03 AM [facility] Lymphocyte 5.0 % 09/12/2024 8:03 AM [facility] Monocytes 3.0 % 09/12/2024 8:03 AM [facility] Neutrophils Absolute (M) 6.3 1.5 - 6.6 X10E9/L 09/12/2024 8:03 AM [facility] Lymphocytes Absolute 0.3(L) 1.0 - 3.5 X10E9/L 09/12/2024 8:03 AM [facility] Monocytes Absolute 0.2 0 - 0.9 X10E9/L 09/12/2024 8:03 AM [facility] Polychromasia 1+(A) NONE^NONE 09/12/2024 8:03 AM [facility] Fragment 1+(A) NONE^NONE 09/12/2024 8:03 AM [facility] Ovalocytes 1+(A) NONE^NONE 09/12/2024 8:03 AM [facility] Blood / Unknown 09/12/2024 6 :30 AM EST 09/12/2024 6:31 AM EST us Jo Yin MD LAB BLOOD ORDERABLES Edit ed Result - Final [facility] [address], [address] [place] [address] * X-ray chest 1 view (09/11/2024 7:58 PM EST) Only the most recent of2 resultswithin the time period is included. Anatomical Region Laterality Modality Body, Chest N/A Computed Radiogr aphy 09/11/2024 10:3 0 PM EST Narrative 09/11/2024 10:30 PM EST CHEST 1 VIEW HISTORY: Pneumothorax follow-up COMPARISON: 09/11/2024, 1:48 PM IMPRESSION: * Previously seen right apical pneumothorax not well visible. Small right pleural effusion. * Left lung is clear. * Unchanged cardiomediastinal silhouette. Finalized by Kristofer Lee MD on 09/11/2024 10:30 PM Procedure Note Kristofer Lee MD - 09/11/2024 CHEST 1 VIEW HISTORY: Pneumothorax follow-up COMPARISON: 09/11/2024, 1:48 PM IMPRESSION: * Previously seen right apical pneumothorax not well visible. Smallright pleural effusion. * Left lung is clear. * Unchanged cardiomediastinal silhouette. Finalized by Kristofer Lee MD on 09/11/2024 10:30 PM Willow Marsh POND SUPERVISOR-SALES DEVELOPMENT REPRESENTATIVE IMG DIAGNOSTIC IMAGING O RDERABLES Final Result * (ABNORMAL) Hemoglobin and hematocrit, blood (09/11/2024 6:27 PM EST) Hemoglobin 7.9(L) 13.0 - 17.0 g/dL 09/11/2024 6:51 PM EST [facility] Hematocrit 24.1(L) 39 - 49 % 09/11/2024 6:51 PM EST [facility] Blood / Unknown 09/11/2024 6 :27 PM EST 09/11/2024 6:28 PM EST Elieser Mijares POND SUPERVISOR-SALES DEVELOPMENT REPRESENTATIVE LAB BLOOD ORDERABLE S Final Result [facility] [address] [place] [address] * Transfuse RBC:1 Unit IRRADIATED; Non-Hodgkins lymphoma not explained by other causes (09/11/2024 4:38 PM EST) us Jo Yin MD BLOOD TRANSFUSION ORDERAB LES Final Result * Resp Pathogens Panel/SARS CoV-2 (09/11/2024 1:02 PM EST) Specimen Source NASO PHARYNX 09/10/2024 2:34 PM EST [facility] Adenovirus Detection by PCR Not Detected Not Detected^No t Detected 09/11/2024 2:20 PM [facility] Coronavirus 229e Not Detected Not Detected^No t Detected 09/11/2024 2:20 PM [facility] Coronavirus hku1 Not Detected Not Detected^No t Detected 09/11/2024 2:20 PM [facility] Coronavirus nl63 Not Detected Not Detected^No t Detected 09/11/2024 2:20 PM [facility] Coronavirus oc43 Not Detected Not Detected^No t Detected 09/11/2024 2:20 PM [facility] Human metapneumovirus Not Detected Not Detected^No t Detected 09/11/2024 2:20 PM [facility] Rhinovirus/enterov irus Not Detected Not Detected^No t Detected 09/11/2024 2:20 PM [facility] Influenza A Not Detected Not Detected^No t Detected 09/11/2024 2:20 PM [facility] Influenza B Not Detected Not Detected^No t Detected 09/11/2024 2:20 PM [facility] Parainfluenza 1 Not Detected Not Detected^No t Detected 09/11/2024 2:20 PM [facility] Parainfluenza 2 Not Detected Not Detected^No t Detected 09/11/2024 2:20 PM [facility] Parainfluenza 3 Not Detected Not Detected^No t Detected 09/11/2024 2:20 PM [facility] Parainfluenza 4 Not Detected Not Detected^No t Detected 09/11/2024 2:20 PM [facility] Respiratory syncytial virus Not Detected Not Detected^No t Detected 09/11/2024 2:20 PM [facility] Bordetella parapertussis Not Detected Not Detected^No t Detected 09/11/2024 2:20 PM [facility] Bordetella pertussis Not Detected Not Detected^No t Detected 09/11/2024 2:20 PM [facility] Chlamydophila pneumophilia Not Detected Not Detected^No t Detected 09/11/2024 2:20 PM [facility] Mycoplasma pneumoniae Not Detected Not Detected^No t Detected 09/11/2024 2:20 PM [facility] SARS COV 2 Not Detected Not Detected^No t Detected 09/11/2024 2:20 PM [facility] Comment: NOTE The [employer] Respiratory Panel 2.1 (RP2.1) is a multiplexed [...] other pathogens. The agent(s) detected by the [employer] RP2.1 may not be the definite cause [...] a patient with possible respiratory tract infection. Nasopharyngeal structure / Unknown 09/11/2024 1:02 PM EST 09/11/2024 1:13 PM EST us Radha Hamilton POND SUPERVISOR-SALES DEVELOPMENT REPRESENTATIVE MICROBIOLOGY - GENERA L ORDERABLES Final Result [facility] [address] [place] [address] * Crossmatch RBC: (09/11/2024 10:30 AM EST) Only the most recent of3 resultswithin the time period is included. Blood component type [id number] BLOOD BANK - [facility] Unit number [id number] BL OOD BANK - [facility] ABO A BLOOD BANK - [facility] RH POS BLOOD BANK - [facility] Status of unit TRANSFUSED BLOO D BANK - [facility] Expiration Date [id number] BLOOD BANK - [facility] BB Type Barcode 6200 BLOOD BANK - [facility] 09/11/2024 10:3 0 AM EST us Jo Yin MD BLOOD BANK PRODUCT ORDERA BLES Final Result BLOOD BANK - [facility] * Type and screen(includes indirect alissa) (09/11/2024 10:30 AM EST) ABO A 09/11/2024 11:45 AM EST [facility] RH Positive 09/11/2024 11:45 AM EST [facility] Antibody Screen Negative 09/11/2024 11:45 AM [facility] 09/11/2024 10:3 0 AM EST us Jo Yin MD BLOOD BANK TEST ORDERABLE S Edited Result - Final [facility] [address] [place] [address], [place] * (ABNORMAL) Protime & INR (09/11/2024 5:24 AM EST) Only the most recent of4 resultswithin the time period is included. Pathologist [facility] Protime 16.0(H) 9.8 - 13.2 sec 09/11/2024 7:05 AM [facility] Inr 1.4(H) 0.9 - 1.2 09/11/2024 7:05 AM EST [facility] PLASMA 09/11/2024 5:24 AM EST 09/11/2024 5:25 AM EST us Gianluca Mahan MD LAB BLOOD ORDERABLES Final Resul t Performing Organization Address City/[facility]/ZIP Co de Phone Number [facility] [address] [place] [address] * ABO Rh Repeat (09/11/2024 5:00 AM EST) ABO A 09/11/2024 11:58 AM EST [facility] RH Positive 09/11/2024 11:58 AM EST [facility] 09/11/2024 5:00 AM EST us Jo Yin MD BLOOD BANK TEST ORDERABLE S Final Result Performing Organization Address [facility]/ZIP Co de Phone Number [facility] [address] [place] [address], [place] * Vas venous duplex lwr bilateral (09/10/2024 4:54 PM EST) Anatomical Region Laterality Modality Vascular Bilateral Ultrasound 09/10/2024 5:00 PM EST Narrative 09/12/2024 7:29 AM EST Right: Lower extremity deep veins are compressible with spontaneous phasic spectral Doppler waveforms; superficial veins are compressible without intraluminal content. Left: Lower extremity deep veins are compressible with spontaneous phasic spectral Doppler waveforms; superficial veins are compressible without intraluminal content. General: Incidental finding of right large hypoechoic mass without color flow in the groin area. Conclusions: BILATERAL: NO EVIDENCE of deep or superficial vein thrombosis of the lower extremities.Incidental finding may warrant further investigation Recommendations: Any questions prior to finalization, please call the reading physician during normal business hours at the phone number beside their name. Procedure Note Clemencia Panchal MD - 09/12/2024 Right: Lower extremity deep veins are compressible with spontaneous phasicspectral Doppler waveforms; superficial veins are compressible withoutintraluminal content. Left: Lower extremity deep veins are compressible with spontaneous phasicspectral Doppler waveforms; superficial veins are compressible withoutintraluminal content. General: Incidental finding of right large hypoechoic mass without colorflow in the groin area. Conclusions: BILATERAL: NO EVIDENCE of deep or superficial vein thrombosisof the lower extremities.Incidental finding may warrant furtherinvestigation Recommendations: Any questions prior to finalization, please call thereading physician during normal business hours at the phone number besidetheir name. Wendi Lai MD CV VASCULAR ORDERABLES Final Res ult * Surgical Pathology (09/10/2024 1:26 PM EST) Only the most recent of2 resultswithin the time period is included. Bone marrow aspiration procedure / Unknown 09/10/2024 1:26 PM EST 09/10/2024 1:26 PM EST Narrative [facility] - 09/15/2024 8:03 AM EST [facility] [address] [place] [address] Bone Marrow Consultation Patient Name:PENNY ORDAZ:1960 (Age: 63)Gender:MTaken:09/10/2024Reported:09/15/2024Physician(s):Yeny Tyson ([phone])Copy To:Fredrick Sousa [facility] #:[id number]. Rec. #:[id number]: #[id number] Final Pathologic Diagnosis C/W PRIMARY MYELOFIBROSIS in [...] circulating nRBCs. 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 There is no evidence of lymphoma. Report Electronically Signed Out watkins/09/15/2024Arcenio Ervin MD Flow Cytometry-Surg/BM/NG Date Reported: 09/15/2024 The right up with 5% myeloblasts Flow cytometric analysis of the marrow aspirate cells demonstrates maturing hematopoietic elements. Blasts are slightly increased (5%) on CD45/side scatter analysis or CD34 staining. No aberrant patterns of antigen acquisition are identified on maturing myeloid cells. [place] on the lymphoid population demonstrates a mixed population of phenotypically unremarkable T-cells, polyclonal B-cells, and natural killer cells, without a detectable monoclonal population. No significant plasma cell population is identified. Immunophenotyping antibodies tested: CD2, CD3, CD4, CD5, CD7, CD8, CD10, CD13, CD16, CD19, CD20, CD23, CD33, CD34, CD38, CD43, CD45, CD56, CD117, CD123, CD138, TRCB1, [place], and [place]. Immunophenotyping Comment: Immunophenotyping has been used in this diagnostic evaluation. This test was developed and its performance characteristics determined by the [facility] Department. It has not been [...] The marrow study reveals primary myelofibrosis (see S25 3923). Electronically Signed Out Arcenio Ervin MD Interpretation performed at [facility], [address] [place] [address], License number: [id number]. Clinical History Concern for lymphoma, CT abdomen pelvis with bulky retroperitoneal, right iliac, inguinal lymphadenopathy with splenomegaly. Gross Description 1. Received in B+, labeled CHARISSE, right iliac crest BM clot , is a 1.9 x 0.7 x 0.1 cm aggregate of dark red-brown, clotted hemorrhagic material. The specimen is submitted entirely in a single cassette. (1,ns,[id number], m5)MW 2. Received in B+, labeled CHARISSE, right iliac crest BMBX , is a cylindrical bone core biopsy, 0.8 in length x 0.3 cm in diameter. The specimen is submitted entirely in a single cassette, following brief decalcification in Rapid-Elfego Immuno. (1,ns,[id number], m5)MW mxw/09/10/2024SAN Microscopic Findings Clinical History: Retroperitoneal [...] (1-6%) 1.0 Eosinophils (0-1%) 0.0 Basophils (0-4%) 2.5 Monocytes (7-23%) 1.5 Lymphocytes (0-2%) 0.5 Plasma cells Myeloid/erythroid ratio: 10:1 Erythropoiesis: Paint Prep Technician Myelopoiesis: Paint Prep Technician Megakaryocytes: Slightly increased with moderate dysmorphia (large hyperlobated forms) Lymphocytes: No increased or atypical lymphocytes Plasma cells: No increased or atypical plasma cells Other hematopoietic cells: None Abnormal cells (e.g., blast cells, metastatic infiltrates): None Iron stores: N/A (dry tap with no provider relations representative marrow cellular precursors) Summary of flow cytometry: 3% circulating blasts (marrow aspirate is a dry tap) BONE MARROW ASPIRATE CLOT/CORE BIOPSY: Aspirate clot: No provider relations representative marrow Adequacy of biopsy core: Adequate Percentage cellularity/pattern: Markedly hypercellular (90%) Myeloid:erythroid ratio: Normal (3:1) Morphology/differentiation of hematopoietic lineages: Erythroid: Slightly left shifted Myeloid: Paint Prep Technician Megakaryocytic: Moderately increased in clusters with moderate dysmorphia (large hyperchromatic forms) Lymphocytes: No increased or atypical lymphocytes Plasma cells: No increased or atypical plasma cells Abnormal cells or infiltrates: None Special stains: Reticulin, trichrome, CD34, CD117, CD3 and CD20 Bone architecture: Mildly sclerotic Other investigations (e.g. cytogenetics, PCR, FISH, microbiology): Pending G- banding All special stain controls are reviewed and display appropriate staining. Specimen(s) Received 1: Right iliac crest bone marrow aspirate 2: Right iliac crest bone marrow core biopsy Fee Codes(s): 1; 86407, 17993, 45230, 18298, 05121, 44796, 53530(3), 27524, 76932 2; 92774, 79002 us Yeny Tyson POND SUPERVISOR-SALES DEVELOPMENT REPRESENTATIVE PATHOLOGY/CYTOLOGY RAULITO TEJADA Edited Result - Final [facility] * Bone Marrow (09/10/2024 1:17 PM EST) Bone marrow SEE SEPARATE REPORT 09/15/2024 9:39 AM EST [facility] Comment:REVIEWED BY Tito ERVIN M.D. Bone marrow structure / Unknown 09/10/2024 1:17 PM EST 09/10/2024 2:15 PM EST Roe Damian MD BODY FLUIDS AND STOOLS ORDERAB LES Final Result [facility] [address], [address] [place] [address] * Unlisted Lab Test (09/10/2024 1:17 PM EST) Unlisted lab test Sent to reference lab 09/10/2024 8:18 PM EST [facility] MISCELLANEOUS 09/10/2024 1:1 7 PM EST 09/10/2024 2:15 PM EST Roe Damian MD LAB BLOOD ORDERABLES Final Res ult Performing Organization Address City/[facility]/ZIP Co de Phone Number [facility] * Chromosome hematolog, bone marrow (09/10/2024 1:17 PM EST) Chromosome, Bone Marrow SEE COMMENTS 09/20/2024 10:41 AM 09/20/2024 11:42 AM EST [facility] Comment: NOTE Test Result Flag Unit RefValue Chromosomes, Hematologic, BM Result Summary See Interpretation [...] testing process was performed at [facility] site [id number], [id number], [id number]. Released By Angie Vuong D.O. Test Performed by: [place] [address] Ophthalmic Photographer: Alexandre Crain Ph.D.; CLIA# [id number] Bone marrow structure / Unknown 09/10/2024 1:17 PM EST 09/10/2024 2:15 PM EST Roe Damian MD LAB ORDERABLES Final Result Performing Organization Address [facility] Co de Phone Number [facility] * Flow Cytometry Bone Marrow (09/10/2024 1:17 PM EST) [facility] Flow Cytometry, Bone Marrow SEE SEPARATE REPORT 09/16/2024 9:47 AM EST [facility] Comment:REVIEWED BY Tito ERVIN M.D. Bone marrow structure / Unknown 09/10/2024 1:17 PM EST 09/10/2024 2:15 PM EST Roe Damian MD BODY FLUIDS AND STOOLS ORDERAB LES Final Result Performing Organization Address [facility] Co de Phone Number [facility] [address] [facility], [address] [place] [address] * IR biopsy and aspiration bone marrow single or multiple sites (09/10/2024 1:12 PM EST) Anatomical Region Laterality Modality IR N/A X-Ray Angiograph y Narrative 09/10/2024 2:03 PM EST Pre-procedure diagnosis: See history below Post-procedure diagnosis: Same as above Assistants/resident: See the technologist's notes above Consent/pre-procedure evaluation: See below. [place] protocol timeout verification performed. Estimated blood loss: [...] of intravenous Versed, and 30 minutes of [id number] intraservice time for intravenous conscious sedation by [...] of material was deemed sufficient by the nanotechnologist. Finalized by Jonathan Sousa MD on 09/10/2024 2:03 PM us Yeny Tyson POND SUPERVISOR-SALES DEVELOPMENT REPRESENTATIVE G IR ORDERABLES Edite d Result - Final * IR thoracentesis with guidance right (09/10/2024 12:50 PM EST) Anatomical Region Laterality Modality IR Right X-Ray Angiograph y 09/10/2024 2:00 PM EST Narrative 09/10/2024 2:00 PM EST Pre-procedure diagnosis: See history below Post-procedure diagnosis: Same as above Assistants/resident: See the technologist's notes above Consent/pre-procedure evaluation: See below. [place] protocol timeout verification performed. Estimated blood loss: [...] Jonathan Sousa MD on 09/10/2024 2:00 PM Procedure Note Fredrick Sousa MD - 09/10/2024 Pre-procedure diagnosis: See history below Post-procedure diagnosis: Same as above Assistants/resident: See the technologist's notes above Consent/pre-procedure evaluation: See below. [place] protocol timeoutverification performed. Estimated blood loss: Less than 10 mL Procedure/complications: See below Radiation dosage measurements: See below and see technologist's notesabove Conscious sedation: If conscious sedation was administered, preprocedureevaluation for conscious sedation was performed and documented. History: pleural effusion. Procedure: after explanation of the indications, procedure, risks,benefits, and alternatives of ultrasound-guided thoracentesis to thepatient, the patient gave consent. The risks that were explained includebleeding, infection, allergic reaction, pain, and damage to the lungresulting in collapse of the lung. Ultrasound was performed to verify the presence of thepleural effusion and to determine the site of puncture. Ultrasound imagedocuments a pleural effusion. The overlying skin was sterilely prepped anddraped. 1% xylocaine was administered for local anesthesia. Afterplacement of a Fitbiteh catheter into the posterior chest, fluid was removed. There was noimmediate complication from the procedure. Impression: ultrasound-guided right thoracentesis yielded 1200 ml ofserous pleural effusion without immediate complication. An ultrasoundimage was obtained. Finalized by Jonathan Sousa MD on 09/10/2024 2:00 PM Wendi Lai MD IMG IR ORDERABLES Final Result * Triglycerides, fluid (09/10/2024 12:30 PM EST) TRIG specimen type FLUID 2024 2:11 PM EST [facility] Comment: PLEURAL FLUID RIGHT Triglycerides, Fluid 11 mg/dL 09/10/2024 3:48 PM EST [facility] Comment: The reference interval and other method performance specifications are unavailable for this body fluid. Comparison of this result to serum or plasma is recommended. Sterile Body Fluid Liquid substance / Unknown 09/10/2024 12:30 PM EST 09/10/2024 2:10 PM EST Wendi Lai MD BODY FLUIDS AND STOOLS ORDERABLE S Final Result [facility] [address], [address] [place] [address] * Total protein, fluid (09/10/2024 12:30 PM EST) TP specimen type FLUID 09/10/19 2:11 PM EST [facility] Comment: PLEURAL FLUID RIGHT Total Protein, fluid 2.1 g/dL 09/10/2024 3:48 PM EST [facility] Comment: The reference interval and other method performance specifications are unavailable for this body fluid. Comparison of this result to serum or plasma is recommended. Liquid substance / Unknown 09/10/2024 12:30 PM EST 09/10/2024 2:10 PM EST Wendi Lai MD BODY FLUIDS AND STOOLS ORDERABLE S Final Result [facility] [address] [facility], [address] [place] [address] * LDH, fluid (09/10/2024 12:30 PM EST) LD specimen type FLUID 09/10/19 2:11 PM EST [facility] Comment: PLEURAL FLUID RIGHT LDH, fluid 185 U/L 09/10/2024 3:48 PM EST [facility] Comment: The reference interval and other method performance specifications are unavailable for this body fluid. Comparison of this result to serum or plasma is recommended. Sterile Body Fluid Liquid substance / Unknown 09/10/2024 12:30 PM EST 09/10/2024 2:10 PM EST Wendi Lai MD BODY FLUIDS AND STOOLS ORDERABLE S Final Result [facility] [address] [facility] [place] [address] * Albumin, fluid (09/10/2024 12:30 PM EST) Albumin specimen type FLUID 09/10/2024 2:11 PM EST [facility] Comment: PLEURAL FLUID RIGHT Albumin, Fluid <1.5 g/dL 09/10/2024 3:48 PM [facility] Comment: The reference interval and other method performance specifications are unavailable for this body fluid. Comparison of this result to serum or plasma is recommended. Sterile Body Fluid Liquid substance / Unknown 09/10/2024 12:30 PM EST 09/10/2024 2:10 PM EST Wendi Lai MD BODY FLUIDS AND STOOLS ORDERABLE S Final Result Performing Organization Address [facility] Co de Phone Number [facility] [address] [address] * Body fluid culture includes gram stain (09/10/2024 12:30 PM EST) Gram Stain Result WHITE BLOOD CELLS PRESENT 09/10/2024 3:11 PM [facility] Gram Stain Result NO ORGANISMS SEEN 09/10/2024 3:11 PM [facility] Gram Stain Result ON CONCENTRATED SMEAR 09/10/2024 3:11 PM [facility] Culture NO GROWTH 5 DAYS 09/16/19 7:58 AM [facility] Pleural fluid / Unknown 09/10/2024 12:30 PM EST 09/10/2024 2:09 PM EST Comment:RIGHT Wendi Lai MD MICROBIOLOGY - GENERAL ORDERABLE S Final Result Performing Organization Address [facility] Co de Phone Number [facility] [address] [facility] [address] [place] [address] * Body Fluid cell count with differential (09/10/2024 12:30 PM EST) Specimen type PLEURAL FLUID 09/11/2024 11:53 AM [facility] Comment:RIGHT Nucleated cell ct 182 /uL 025 1:26 PM [facility] Fluid RBC 83 /uL 09/11/2024 1:26 PM [facility] Fluid color STRAW 09/11/2024 1:26 PM [facility] Fluid clarity CLEAR 09/11/2024 1:26 PM [facility] Body fluid comment I nterpretati on-------- 09/11/2024 1:41 PM [facility] Comment: Reference values for this fluid type are undefined, as fluid accumulation is considered abnormal. SEE CYTOLOGY REPORT Corrected on 09/11 AT 1341: Previously reported as Interpretation Reference values for this fluid type are undefined, as fluid accumulation is considered abnormal. Fluid neutrophils 11 % 025 1:41 PM [facility] Fluid lymphocyte 12 % 09/11/19 25 1:41 PM [facility] Macrophages 77 % 09/11/2024 1:41 PM [facility] Liquid substance / Unknown 09/10/2024 12:30 PM EST 09/11/2024 11:52 AM EST us Willow Marsh POND SUPERVISOR-SALES DEVELOPMENT REPRESENTATIVE BODY FLUIDS AND STOOLS O RDERABLES Edited Result - Final Performing Organization Address [facility]/State/ZIP Co de Phone Number [facility] [address] [facility], [address] [place] [address] * (ABNORMAL) Procalcitonin (09/10/2024 7:59 AM EST) Procalcitonin 0.10(H) <0.05 ng/mL 09/10/2024 3:00 PM [facility] Comment: NOTE <0.50 ng/mL - Low risk of severe sepsis and/or septic shock. <2.00 ng/mL - Recommend retesting within 6-24 hours. >2.00 ng/mL - High risk of sepsis and/or septic shock. PLASMA 09/10/2024 7:59 AM EST 09/10/2024 8:00 AM EST us Elieser Mijares POND SUPERVISOR-SALES DEVELOPMENT REPRESENTATIVE LAB BLOOD ORDERABLE S Final Result Performing Organization Address City/[facility]/ZIP Co de Phone Number [facility] [address] [facility], [address] [place] [address] * (ABNORMAL) LDH (09/10/2024 7:59 AM EST) Only the most recent of2 resultswithin the time period is included. LDH 610(H) 100 - 235 U/L 09/10/2024 8:54 AM EST [facility] PLASMA 09/10/2024 7:59 AM EST 09/10/2024 8:00 AM EST us Elieser Mijares POND SUPERVISOR-SALES DEVELOPMENT REPRESENTATIVE LAB BLOOD ORDERABLE S Final Result [facility] [address] [place] [address] * Uric acid (09/10/2024 7:59 AM EST) Uric Acid 6.1 2.6 - 7.2 mg/dL 09/10/2024 8:54 AM EST [facility] PLASMA 09/10/2024 7:59 AM EST 09/10/2024 8:00 AM EST us Elieser Mijares POND SUPERVISOR-SALES DEVELOPMENT REPRESENTATIVE LAB BLOOD ORDERABLE S Final Result [facility] [address] [address] * Phosphorus (09/10/2024 7:59 AM EST) Phosphorus 3.1 2.4 - 4.9 mg/dL 09/10/2024 8:54 AM EST [facility] PLASMA 09/10/2024 7:59 AM EST 09/10/2024 8:00 AM EST us Elieser Mijares POND SUPERVISOR-SALES DEVELOPMENT REPRESENTATIVE LAB BLOOD ORDERABLE S Final Result [facility] [address] [facility] [place] [address] * (ABNORMAL) Comprehensive metabolic panel (09/10/2024 7:59 AM EST) Sodium 135 134 - 146 mmol/L 09/10/2024 8:54 AM [facility] Potassium, Bld 4.1 3.5 - 5.0 mmol/L 09/10/2024 8:54 AM [facility] Chloride 102 98 - 109 mmol/L 09/10/2024 8:54 AM [facility] CO2 28 22 - 32 mmol/L 09/10/2024 8:54 AM [facility] Anion gap 5 5 - 15 mmol/L 09/10/2024 8:54 AM [facility] BUN 11 5 - 27 mg/dL 09/10/2024 8:54 AM [facility] Creatinine 0.65 0.60 - 1.30 mg/dL 09/10/2024 8:54 AM [facility] Comment:METHOD TRACEABLE TO IDMS STANDARD Glucose 113(H) 65 - 99 mg/dL 09/10/2024 8:54 AM [facility] Calcium 8.1(L) 8.5 - 10.5 mg/dL 09/10/2024 8:54 AM [facility] Total Protein 6.7 6.0 - 8.0 g/dL 09/10/2024 8:54 AM [facility] Albumin 3.6 3.2 - 5.3 g/dL 09/10/2024 8:54 AM [facility] Alkaline Phosphatase 75 39 - 130 U/L 09/10/2024 8:54 AM [facility] AST 17 0 - 41 U/L 09/10/2024 8:54 AM [facility] ALT 7 0 - 40 U/L 09/10/2024 8:54 AM [facility] Total bilirubin 0.8 0.3 - 1.2 mg/dL 09/10/2024 8:54 AM [facility] eGFR (CKD-EPI)non-rac e dependent >90 >59 ml/min/1.7 3sq.m 09/10/2024 8:54 AM EST [facility] Comment: Reported eGFR is based on the CKD-EPI 2020 equation that does not use a race coefficient. PLASMA 09/10/2024 7:59 AM EST 09/10/2024 8:00 AM EST Elieser Mijares POND SUPERVISOR-SALES DEVELOPMENT REPRESENTATIVE LAB BLOOD ORDERABLE S Final Result [facility] [address] [place] [address], [address] [place] [address] * Cytology (09/10/2024 7:36 AM EST) SF 09/10/2024 7:36 AM EST 09/10/2024 3:14 PM EST Narrative [facility] - 09/13/2024 2:09 PM EST [facility] [address] [place] [address] Cytology Consultation Patient Name:PENNY ORDAZ:1960 (Age: 63)Gender:MTaken:09/10/2024Reported:09/13/2024 14:09Physician(s):Wendi Lai M.D. ([phone])Copy To:Gianluca Mahan [facility] #:[id number]. Rec. 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 Fatigue, shortnessof breath, weakness. Staging exam. TECHNIQUE: * Routine multiplanar multisequence MR imaging of the brain was performedwith and without intravenous contrast. FINDINGS: No evidence of acute infarct, intracranial hemorrhage, mass effect ormidline shift. Mild diffuse cortical atrophy. Otherwise brain volume, ventricles andsulci are age-appropriate without hydrocephalus. Mild burden of periventricular and subcortical T2/FLAIR hyperintensitieswhich are nonspecific but may be seen in setting of chronic microvascularischemic changes. Bilateral globes and orbits are unremarkable. Paranasal sinuses areclear. Trace mastoid fluid bilaterally. Major intracranial arterial flowvoids are preserved by technique. No pathologic intraparenchymal enhancement. Scaphocephalic head shape, a congenital variant. IMPRESSION: * No acute intracranial abnormality or pathologic enhancement. * Mild atrophic and chronic microvascular ischemic changes. Finalized by David Stuart on 09/09/2024 2:26 PM Yeny Tyson POND SUPERVISOR-SALES DEVELOPMENT REPRESENTATIVE IMG MRI ORDERABLES Marisa l Result * Hepatitis B core antibody, total (09/09/2024 4:22 AM EST) Hep B Core Total Ab Non-Reacti ve Non-Reacti ve^Non-[place] ctive 09/09/2024 11:43 AM EST [facility] Comment:NEW TEST METHOD Blood / Unknown 09/09/2024 4 :22 AM EST 09/09/2024 4:23 AM EST Stephane Rincon MD LAB BLOOD ORDERABLES Final Resul t [facility] [address], [address] [place] [address] * Hepatitis B Surface Antibody Quantitation (09/09/2024 4:22 AM EST) Anti HBs quantitative >500.00 mIU/mL 09/09/2024 11:43 AM EST [facility] Comment: NOTE Vaccinated: >=10.00 mIU/mL, Positive (Immune) Unvaccinated: <10.00 mIU/mL, Negative (Not Immune) Interpretive values have changed due to implementation of a new method. Values run higher than previous method. Serum / Unknown 09/09/2024 4 :22 AM EST 09/09/2024 4:23 AM EST us Stephane Rincon MD LAB BLOOD ORDERABLES Final Resul t Performing Organization Address City/[facility]/ZIP Co de Phone Number [facility] [address] [facility], [address] [place] [address] * Hepatitis B surface antigen (09/09/2024 4:22 AM EST) Hepatitis B Surface Ag Non-Reacti ve Non-Reacti ve^Non-Soni ctive 09/09/2024 11:43 AM EST [facility] Comment:NEW TEST METHOD Serum / Unknown 09/09/2024 4 :22 AM EST 09/09/2024 4:23 AM EST us Stephane Rincon MD LAB BLOOD ORDERABLES Final Resul t Performing Organization Address [facility] de Phone Number [facility] [address] [facility], [address] [place] [address] * Magnesium (09/09/2024 4:22 AM EST) Only the most recent of2 resultswithin the time period is included. Pathologist [facility] Magnesium 2.0 1.8 - 2.6 mg/dL 09/09/2024 5:26 AM EST [facility] PLASMA 09/09/2024 4:22 AM EST 09/09/2024 4:23 AM EST us Wendi Lai MD LAB BLOOD ORDERABLES Final Resul t Performing Organization Address City/[facility]/ZIP Co de Phone Number [facility] [address] [facility], [address] [place] [address] * CT chest with contrast (09/08/2024 2:43 PM EST) Anatomical Region Laterality Modality Body, Lung, Chest, Body Covera N/A C omputed Tomography 09/09/2024 8:53 AM EST Narrative 09/09/2024 9:05 AM EST Study: Contrast-enhanced CT of the chest dated [...] Micheal Harmon MD on 09/09/2024 9:05 AM Procedure Note Micheal Harmon MD - 09/09/2024 Study: Contrast-enhanced CT of the chest dated 09/08/2024 2:38 PM. Indication: Lymphadenopathy. Comparison: None . Technique: After the injection of intravenous nonionic iodinated contrast,axial CT of the chest was performed from the lung apices to thehemidiaphragms. 2-D reformats were obtained. All CT scans at this facilityuse dose modulation, iterative reconstruction, and/or weight based dosingwhen appropriate to reduce radiation dose to as low as reasonably achievable. Findings: The central airways are patent. Small right pleural effusion withadjacent subsegmental atelectatic change however a component of infiltrateis difficult to exclude. Minimal right upper lobe medially locatedgroundglass opacities. Right middle lobe calcified granuloma. Rightbasilar presumed calcified granuloma. Left upper lobe interlobular septal thickening.Left basilar subsegmental atelectatic change suspected. No pneumothorax.Cranially located left lower lobe calcified granuloma versus less likely apleural plaque. Enlarged main pulmonary artery measuring up to 3.4 cm. The heart appearsprominent in size. No pericardial effusion. No thoracic aortic aneurysm.Atheromatous calcifications the coronary arteries. Mediastinallymphadenopathy is noted measuring up to 1.8 cm in the aortopulmonarywindow. There are prominent left axillary lymph nodes. Please see CT abdomen pelvis from 09/07/2024 for more complete evaluationof the abdomen however there is redemonstration of calcified granulomas inthe spleen and presumed splenomegaly however incompletely visualized.Peripancreatic lymphadenopathy measuring up to 11 mm. No acute or grossly suspicious osseous abnormality. Impression: 1. Mediastinal lymphadenopathy measuring up to 1.8 cm. 2. Small right pleural effusion with adjacent subsegmental atelectaticchange however difficult to exclude a small component of superimposedpneumonia. Scant right upper lobe groundglass opacities likelyinfectious/inflammatory in etiology. 3. Left hemithorax interlobular septal thickening which may relate tointerstitial edema however given the known lymphadenopathy a degree ofpulmonary lymphoma is not excluded. 4. Enlarged main pulmonary artery measuring up to 3.4 cm which can beseen in pulmonary hypertension. Finalized by Micheal Harmon MD on 09/09/2024 9:05 AM us Yeny Tyson POND SUPERVISOR-SALES DEVELOPMENT REPRESENTATIVE IMG CT ORDERABLES Final Result * Tavarez/THINNER SPRAYER AB IgG (09/08/2024 9:07 AM EST) Anti-Sm/THINNER SPRAYER <0.2 <1.0 AI 09/10/2024 9:43 AM EST [facility] Serum / Unknown 09/08/2024 9 :07 AM EST 09/08/2024 9:08 AM EST Yeny Garces Jah POND SUPERVISORBR[facility] BLOOD ORDERABLES Ed ited Result - Final [facility] [address], [address] [place] [address] * Anti-Chromatin IGG (09/08/2024 9:07 AM EST) Anti-chromatin IgG <0.2 <1.0 AI 09/10/2024 9:43 AM EST [facility] Comment:CLIA ID [id number] 09/08/2024 9:07 AM EST Yeny Garces Jah P[facility] BLOOD ORDERABLES Fi nal Result [facility] [address] [facility], [address] [place] [address] * (ABNORMAL) SSB Antibody (09/08/2024 9:07 AM EST) Ss-b/la antibodies IgG 4.3(H) <1.0 AI 09/10/2024 9:43 AM EST [facility] Comment:CLIA ID [id number] 09/08/2024 9:07 AM EST Yeny Messinaeiffer POND SUPER[facility] BLOOD ORDERABLES Fi nal Result [facility] [address], [address] [place] [address] * Scleroderma antibody (09/08/2024 9:07 AM EST) Scleroderma scl-70 <0.2 <1.0 AI 09/10/2024 9:43 AM EST [facility] Comment:CLIA ID [id number] 09/08/2024 9:07 AM EST Yeny Tyson POND SUPERVISOR-[facility] BLOOD ORDERABLES Fi nal Result [facility] [address] [place] [address], [address] [place] [address] * Lena 1 AB IGG (09/08/2024 9:07 AM EST) Anti LENA-1 <0.2 <1.0 AI 09/10/2024 9:43 AM EST [facility] Comment:CLIA ID [id number] 09/08/2024 9:07 AM EST Yeny Tyson POND [facility]PER[facility] BLOOD ORDERABLES Fi nal Result Performing Organization Address City/[facility]/ZIP Co de Phone Number [facility] [address] [place] [address], [address] [place] [address] * THINNER SPRAYER AB IgG (09/08/2024 9:07 AM EST) Anti THINNER SPRAYER <0.2 <1.0 AI 09/10/2024 9:43 AM EST [facility] Comment:CLIA ID [id number] 09/08/2024 9:07 AM EST Yeny Tyson POND SUPERVISOR-[facility] BLOOD ORDERABLES Fi nal Result Performing Organization Address City/[facility]/ZIP Co de Phone Number [facility] [address] [place] [address], [address] [place] [address] * SSA antibody (09/08/2024 9:07 AM EST) Ss-a/ro antibodies IgG <0.2 <1.0 AI 09/10/2024 9:43 AM [facility] Comment:CLIA ID [id number] 09/08/2024 9:07 AM EST Yeny Garces Jah POND SUPER[facility] BLOOD ORDERABLES Fi nal Result Performing Organization Address [facility]/ZIP Co de Phone Number [facility] [address] [place] [address], [address] [place] [address] * Anti-Tavarez AB IGG (09/08/2024 9:07 AM EST) Anti-tavarez AB IgG <0.2 <1.0 AI 09/10/2024 9:43 AM [facility] Comment:CLIA ID [id number] 09/08/2024 9:07 AM EST Yeny Garces Jah [facility] BLOOD ORDERABLES Fi nal Result Performing Organization Address [facility] Co de Phone Number [facility] [address] [place] [address], [address] [address] * DNA double-stranded (dsDNA) Abs (09/08/2024 9:07 AM EST) Pathologist [facility] Ds DNA <1 <5 IU/ML 09/10/2024 9:43 AM [facility] Comment: Interpretation-------- <5 Negative 5-9 Indeterminate >9 Positive CLIA ID [id number] 09/08/2024 9:07 AM EST Yeny Mili Jah POND SUPERVISOR[facility] BLOOD ORDERABLES Fi nal Result Performing Organization Address [facility] Co de Phone Number [facility] [address] [place] [address], [address] [place] [address] * (ABNORMAL) Immunoelectrophoresis for Therapy Monitoring (09/08/2024 9:07 AM EST) IgA 269 68 - 378 mg/dL 09/08/2024 12:42 PM EST [facility] IgM 126 45 - 281 mg/dL 09/08/2024 12:42 PM EST [facility] IgG 1,236 635 - 1,741 mg/dL 09/08/2024 12:42 PM EST [facility] Free [place] Lt Chains 4.45(H) 0.33 - 1.94 mg/dL 09/09/2024 11:38 AM EST [facility] Free Lambda Lt Chains 2.47 0.57 - 2.63 mg/dL 09/09/2024 11:38 AM EST [facility] Free philip/lambda ratio 1.80(H) 0.26 - 1.65 09/09/2024 11:38 AM [facility] Immune profile inter SEE SEPARATE REPORT 09/11/2024 9:42 AM EST [facility] Serum / Unknown 09/08/2024 9 :07 AM EST 09/08/2024 9:08 AM EST us Yeny Tyson POND SUPERVISOR-SALES DEVELOPMENT REPRESENTATIVE LAB BLOOD ORDERABLES Fi nal Result [facility] [address] [place] [address] * (ABNORMAL) BATOOL Screen w/ Reflex (09/08/2024 9:07 AM EST) Batool screen Positive(A ) Negative^N egative 09/10/2024 9:43 AM EST [facility] Comment: Testing performed using multiplex flow immunoassay. Eleven different antigens associated with systemic autoimmune diseases (dsDNA,Sm,Sm/THINNER SPRAYER,THINNER SPRAYER,Chromatin, SSA,SSB,Lena-1,Scl70,Ribo P,Centromere B) are included in this screening test. Serum / Unknown 09/08/2024 9 :07 AM EST 09/08/2024 9:08 AM EST Yeny Tyson POND SUPERVISOR-SALES DEVELOPMENT REPRESENTATIVE LAB BLOOD ORDERABLES Ed ited Result - Final [facility] [address] [facility], [address] [place] [address] * (ABNORMAL) Protein electrophoresis, serum (09/08/2024 9:07 AM EST) Total Protein 6.3 6.0 - 8.0 g/dL 09/08/2024 12:42 PM EST [facility] Albumin 3.2(L) 3.4 - 5.3 g/dL 09/10/2024 10:47 AM EST [facility] Alpha 1 0.4 0.1 - 0.4 g/dL 09/10/2024 10:47 AM EST [facility] Alpha 2 0.7 0.4 - 1.1 g/dL 09/10/2024 10:47 AM EST [facility] Beta 0.7 0.5 - 1.2 g/dL 09/10/2024 10:47 AM EST [facility] Gamma Globulin 1.4 0.5 - 1.6 g/dL 09/10/2024 10:47 AM EST [facility] Prot. electrophoresis interp SEE SEPARATE REPORT 09/11/2024 9:42 AM EST [facility] Serum / Unknown 09/08/2024 9 :07 AM EST 09/08/2024 9:08 AM EST Yeny Tyson POND SUPERVISOR-SALES DEVELOPMENT REPRESENTATIVE LAB BLOOD ORDERABLES Fi nal Result [facility] [address] [facility], [address] [place] [address] * Protein, total (09/08/2024 9:07 AM EST) Total Protein 6.6 6.0 - 8.0 g/dL 09/08/2024 9:55 AM EST [facility] PLASMA 09/08/2024 9:07 AM EST 09/08/2024 9:08 AM EST us Willow Marsh POND SUPERVISOR-SALES DEVELOPMENT REPRESENTATIVE LAB BLOOD ORDERABLES Fin al Result Performing Organization Address City/[facility]/ZIP Co de Phone Number [facility] [address] [place] [address], [address] [address] * Haptoglobin (09/08/2024 9:07 AM EST) Haptoglobin 70 32 - 228 mg/dL 09/08/2024 9:55 AM EST [facility] Serum / Unknown 09/08/2024 9 :07 AM EST 09/08/2024 9:08 AM EST Yenyhalley Tyson POND SUPERVISOR-SALES DEVELOPMENT REPRESENTATIVE LAB BLOOD ORDERABLES Fi nal Result Performing Organization Address [facility] Co de Phone Number [facility] [address] [place] [address] * Clinical Pathology Blood Smear Review Clinical (09/08/2024 3:08 AM EST) Staff review NOTE 09/12/2024 9:24 AM EST [facility] Comment: [facility] [address] [place] [address] Clinical Pathology Report Patient Name:PENNY ORDAZ:1960 (Age: 63)Gender:MTaken:09/08/2024Reported:09/12/2024Physician(s):Wendi Lai M.D. ([phone])Copy To: Rec. #:[id number]: #[id number] Final Pathologic Diagnosis PERIPHERAL BLOOD: - Normochromic, [...] Out rxd/09/12/2024Monico Ayala MD Interpretation performed at [facility], [address] [place] [address], License number: [id number]. Clinical History D64.9 BLOOD SMEAR EVALUATION CBC (09/08/2024 0308): WBC = 7.1 X10E9/L; HGB = 7.4 g/dL; HCT = 21.7%; MCV = 92 fL; PLT = 245 X10E9/L Specimen(s) Received Blood Smear Review Fee Codes(s): 1; [address] Blood / Unknown 09/08/2024 3 :08 AM EST 09/08/2024 3:09 AM EST Wendi Lai MD LAB BLOOD ORDERABLES Final Resul t [facility] * Flow cytometry blood only (09/08/2024 3:08 AM EST) [facility] Signature Leukemia/lymphoma immunophenotyping SEE SEPARATE REPORT 09/16/2024 9:46 AM EST [facility] Comment:REVIEWED BY Tito ERVIN M.D. Blood / Unknown 09/08/2024 3 :08 AM EST 09/08/2024 3:09 AM EST Wendi Lai MD LAB BLOOD ORDERABLES Final Resul t [facility] [address] [facility], [address] [place] [address] * (ABNORMAL) B-type natriuretic peptide (09/08/2024 3:08 AM EST) BNP 429(H) <100.0 pg/mL 09/08/2024 5:59 AM [facility] PLASMA 09/08/2024 3:08 AM EST 09/08/2024 3:09 AM EST us Wendi Lai MD LAB BLOOD ORDERABLES Final Resul t Performing Organization Address City/[facility]/ZIP Co de Phone Number [facility] [address] [place] [address], [address] [place] [address] * Folate (09/08/2024 3:08 AM EST) Folate 9.1 >5.8 ng/mL 09/08/2024 4:51 AM [facility] Comment:NEW REFERENCE RANGE PLASMA 09/08/2024 3:08 AM EST 09/08/2024 3:09 AM EST us Wendi Lai MD LAB BLOOD ORDERABLES Final Resul t [facility] [address] [place] [address] * Liver panel (09/08/2024 3:08 AM EST) Alkaline phosphatase 87 39 - 130 U/L 09/08/2024 8:42 AM [facility] AST 24 0 - 41 U/L 09/08/2024 8:42 AM [facility] ALT 6 0 - 40 U/L 09/08/2024 8:42 AM [facility] Total Bilirubin 1.2 0.3 - 1.2 mg/dL 09/08/2024 8:42 AM [facility] Bilirubin, direct 0.3 0.0 - 0.4 mg/dL 09/08/2024 8:42 AM [facility] Albumin 3.7 3.2 - 5.3 g/dL 09/08/2024 8:42 AM [facility] Total Protein 6.8 6.0 - 8.0 g/dL 09/08/2024 8:42 AM EST [facility] PLASMA 09/08/2024 3:08 AM EST 09/08/2024 3:09 AM EST us Wendi Lai MD LAB BLOOD ORDERABLES Final Resul t [facility] [address] [place] [address], [address] [place] [address] * Clinical Pathology Review (09/08/2024 12:00 AM EST) Serum Protein Electrophoresis 09/08/2024 09/10/2024 2:10 PM EST Narrative COPATH - 09/10/2024 9:18 PM EST [facility] [address] [place] [address] Clinical Pathology Report Patient Name:PENNY ORDAZ:1960 (Age: 63)Gender:MTaken:09/08/2024Reported:09/10/2024Physician(s):Yeny Tyson ([phone])Copy To: Rec. 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 Mild hypoalbuminemia. Report Electronically Signed Out df/09/10/2024Asher Glez MD Interpretation performed at [facility], [address] [place] [address], License number: [id number]. Clinical History D64.9, R59.1, R16.1. SERUM PROTEIN ELECTROPHORESIS SAMPLE NO: [id number] ELECTROPHORETIC FRACTION CONCENTRATIONS (g/dL) PATIENT REFERENCE RANGE [...] IgA : 269 IgM : 126 Free [place]: 4.45 Free Lambda: 2.47 Free [place]/Lambda ratio: 1.80 Specimen(s) Received 1: Serum Protein Electrophoresis 2: Serum IEP Fee Codes(s): 1; 25972-02 2; 42587-35 us Yeny Tyson POND SUPERVISOR-SALES DEVELOPMENT REPRESENTATIVE PATHOLOGY/CYTOLOGY ORDE TERRELL Final Result COPATH from Last 3 Months Insurance [employer] Advance Directives * Full Code (Latest Code Status on File) Date Activated Date Inactivated Comments 09/08/2024 1:29 AM 09/12/2024 5:34 PM Care Teams Portable Router Operator Relationship Specialty Start Date End Date Dewey Enriquez DO [address] [facility], [facility] [place] [address] PCP - General Family Medicine 09/07/24
--- OUTSIDE RECORDS SUMMARY | 2024-12-06 08:12 | XMS_ITS | CCD ---
Author Organization [facility] Care Team Providers Care Optoelectronic Technician Name Role Phone GORDILLO, CHRISTOPHER Unavailable Unavailable GORDILLO, CHRISTOPHER Unavailable Unavailable HAY, MELBA Unavailable Unavailable FURLONG, DEWEY Unavailable Unavailable AL Unavailable Unavailable GORDILLO, CHRISTOPHER Unavailable Unavailable GORDILLO, [...] Provider Furlong DODewey G Primary Care Provider [phone] FURLONG, DEWEY G Referring Unavailable FURLONG, DEWEY [...] FURLONG, DEWEY G Primary Care Unavailable Furlong Dewey YOUNG Primary Care Provider Furlong DODewey Attending Provider [phone] GEREMIAS SOTO Attending Unavailable FURLONG, DEWEY G Primary Care Unavailable KEYUR STUART Attending Unavailable FURLONG, DEWEY G Referring Unavailable FURLONG, DEWEY G Primary Care Unavailable Martita Hopper MD Attending Provider Martita Hopper Admitting Unavailable Martita Hopper Attending Unavailable Furlong, Dewey Admitting Unavailable Furlong, Dewey Attending Unavailable Furlong, Dewey Primary Care Unavailable Furlong DO, Dewey G Primary Care Provider [phone] FURLONG, DEWEY G Attending Unavailable FURLONG, DEWEY [...] Unavailable FURLONG, DEWEY G Primary Care Unavailable Unavailable Primary Care Provider Unavailabl e Medications Current Medications Medication Drug Class(es) Dates Sig (Normalized) Sig (Original) cephalexin 500 mg oral capsule (1 source) Cephalosporin Antibacterial Start: 5 End: 5 CEPHalexin (KEFLEX) 500 mg capsule Take 1 capsule (500 mg total) by mouth in the morning and 1 capsule (500 mg total) at noon and 1 capsule (500 mg total) in the evening and 1 capsule (500 mg total) before bedtime. Do all this for 5 days. 20 capsule 09/12/2024 09/17/2024 Active cholecalciferol 0.01 mg oral capsule (14 sources) Vitamin D cholecalciferol, vitamin D3, (VITAMIN D3) 10 mcg (400 unit) capsule Active melatonin 10 mg oral tablet (7 sources) Start: 5 take 1 tablet by mouth once daily melatonin 10 mg tablet Take 1 tablet by mouth nightly. 09/14/2024 Active OJJAARA 100 mg tablet (3 sources) Start: 5 OJJAARA 100 mg tablet 10/16/2024 Active prochlorperazine 5 mg oral tablet (1 source) Phenothiazine Start: 5 prochlorperazine (COMPAZINE) 5 mg tablet prn 11/04/2024 Active rosuvastatin calcium 10 mg oral tablet (13 sources) HMG-CoA Reductase Inhibitor Start: 4 take 1 tablet by mouth once daily rosuvastatin (CRESTOR) 10 mg tablet Take 1 tablet (10 mg total) by mouth nightly. 30 tablet 11 06/29/2024 Active triamcinolone acetonide 1 mg/ml topical cream (1 source) Corticosteroid Start: triamcinolone (KENALOG) 0.1 % cream Apply to affected area on trunk and extremities EVERY DAY to TWICE DAILY NEEDED 11/30/2024 Active Completed/Discontinued Medications Medication Drug Class(es) Dates [...] Onset: 5 Chronic Deficiency and other anemia (15 sources) Anemia; Translations: [Anemia, unspecified] Onset: 5 [...] external cause; Translations: [UNSP PLACE IN [facility]] Onset: 7 Fracture of lower limb (17 sources) Displaced spiral fracture of shaft of right tibia, initial encounter for open fracture type I or II; Translations: [Unspecified fracture of shaft of right fibula, subsequent encounter for closed fracture with routine healing] Onset: 7 Episodic Lymphadenitis (13 sources) Inguinal lymphadenopathy; Translations: [Localized enlarged lymph nodes] Onset: 5 09-08-2024 Episodic Neoplasms of unspecified nature or uncertain behavior (10 sources) Myelosclerosis with myeloid metaplasia; 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 [...] classified] Onset: 5 Episodic Other gastrointestinal disorders (6 sources) Splenomegaly; Translations: [Splenomegaly, not elsewhere classified] Onset: 5 10-04-2024 Episodic Other inflammatory condition of skin (1 source) Psoriasis vulgaris; Translations: [PSORIASIS VULGARIS] Onset: 7 Chronic Other screening for suspected conditions (not mental disorders or infectious disease) (6 sources) Patient encounter status; Translations: [Encounter for screening for cardiovascular disorders] Onset: 4 06-25-2024 Episodic Pleurisy; pneumothorax; pulmonary collapse (6 sources) Pleural effusion; Translations: [Pleural effusion, not [...] unspecified reasons] 06-25-2024 Episodic Residual codes; unclassified (13 sources) Amnesia; Translations: [Other amnesia] Onset: 5 [...] / UNK(Unknown) Onset: 7 Unclassified (1 source) Low Blood Count Onset: 5 Unclassified (1 source) Abnormal Lab Value Onset: 5 Unclassified (1 source) Referral Onset: 5 Past or Other Problems Problem Classification Problem Date Documented Da te Episodic/Chronic Chronic ulcer of skin (8 sources) Ulcer of lower extremity; Translations: [Non-pressure [...] RIGHT LEG] Onset: 08-03-2017 Episodic Mood disorders (14 sources) Mood disorders Onset: 06-25-2024 Resolved: 12-05-2024 06-25-2024 Other connective tissue disease (1 source) Arthrodesis status; Translations: [ARTHRODESIS STATUS] Onset: 08-03-2017 Episodic Skin and subcutaneous tissue infections (9 sources) Cellulitis of right lower limb; Translations: [Cellulitis of right lower limb] Onset: 09-08-2024 Resolved: 11-01-2024 09-08-2024 Episodic Substance-related disorders (17 sources) Nicotine dependence, cigarettes, uncomplicated; Translations: [Cigarette smoker ] Onset: 07-14-2017 Resolved: 09-21-2024 06-25-2024 Chronic Unclassified (1 source) Patient encounter status 09-21-2024 Results Test Name Value Interpretation Reference Range Facility Telephone Encounteron 2024 [employer] Aut[employer] Interface Message Text Upon review of chart, saw that pt is scheduled for appt 01/15 w/Dr Craig. Call made to pt to assist w/moving up appt. The offered appts were too early in the AM so he declined scheduling. Offered 01/01 at 1600 w/Dr ULLOA and he declined that appt as well. He stated he would see if he could 'make arrangements' and call back tomorrow. Pineda Parkinson RN Normal [facility] [employer] Interface Message Text PT called to make appointment Scheduled by notes PT asked 01/15 at 1PM AM. Normal [facility] Telephone Encounteron 2024 [employer] Aut[employer] Interface Message Text Pt id'd by name and . Explained to pt the reason for call was to schedule appt. Pt stated he was not sure whether or not he needed appt and stated he will check w/his oncologist tomorrow. Pt accepted contact info and stated he will call back. Holding 12/[address] CRAIG. please make sure [employer] is updated. Pineda Parkinson RN Normal [facility] John Paul 10-09-2024 L ----- Specimen: [id number] Received: 10/11/24 Status: QUOC Barrientos Num: [id number] Spec Type: Impression Subm Dr: Martita Hopper MD Tissues: PATHPER Procedures: PATHREVIEW Age/ Patient Sex Location Account Attending Physician Penny Ordaz/M LABELL [id number] Martita Hopper MD SPEC NUM: [id number] RECD: 10/11/24 STATUS: QUOC WILIAM NUM: [id number] BEV: 10/09/24-1546 [facility] DR: Martita Hopper MD ENTERED: 10/11/24 [facility] DR: William Ly SPEC TYPE: Impression DEPT: ALLI Correa ENTERED BY: [id number] RECV BY: [id number] ORDERED: PATHREVIEW ORDERED: PATHREVIEW Pathologist Review Abnormal [...] CPT Specimen: [id number] Received: 10/11/24 Status: QUOC Barrientos Num: [id number] Spec Type: Impression Subm Dr: Martita Hopper MD Tissues: PATHPER Procedures: PATHREVIEW Patient: Penny Ordaz [id number] (Continued) Specimen: [id number] Received: 10/11/24 (Continued) Pathologist Review (Continued) Signed (signature on file) Delfina Calderón MD 10/14/24 2030 Specimen: [id number] Received: 10/11/24 Status: QUOC Barrientos Num: [id number] Spec Type: Impression Subm Dr: Martita Hopper MD Tissues: PATHPER Procedures: PATHREVIEW Patient: Penny Ordaz [id number] (Continued) Specimen: [id number] Received: 10/11/24 (Continued) Pathologist Review (Continued) 22538 Specimen: [id number] Received: 10/11/24 Status: QUOC Barrientos Num: [id number] Spec Type: Impression Subm Dr: Martita Hopper MD Tissues: PATHPER Procedures: PATHREVIEW Patient: Penny Ordaz [id number] (Continued) Signed (signature on file) Bryan-Michael Calderón MD 10/14/242029 Normal [facility] BASIC METABOLIC PANLon 09-21 Anion gap [Moles/Vol] 6 mmol/L Normal 5-15 [facility] Comment on above: Performed By: #### C BCA, PINR, BMP, 78456-6, 2284-8, 94155-6, LIVR #### [facility] ([id number]) [address], [address] [place] [address] Calcium [Mass/Vol] 9.0 mg/dL Normal 8.5-10.5 [facility] Comment on above: Performed By: #### C BCA, PINR, BMP, 08451-1, 2284-8, 93847-7, LIVR #### [facility] ([id number]) [address], [address] [place] [address] Chloride [Moles/Vol] 102 mmol/L Normal 98-109 [facility] Comment on above: Performed By: #### C BCA, PINR, BMP, 83007-8, 2284-8, 03524-0, LIVR #### [facility] ([id number]) [address], [address] [place] [address] CO2 [Moles/Vol] 29 mmol/L Normal 22-32 [facility] Comment on above: Performed By: #### C BCA, PINR, BMP, 88085-0, 2284-8, 45066-2, LIVR #### [facility] ([id number]) [address], [address] [place] [address] Creatinine [Mass/Vol] 0.67 mg/dL Normal 0.60-1.30 [facility] Comment on above: Result Comment: METH OD TRACEABLE TO IDMS STANDARD Performed By: #### C BCA, PINR, BMP, 34777-8, 2284-8, 27726-9, LIVR #### [facility] ([id number]) [address], [address] [place] [address] eGFR (CKD-EPI) NON-RACE DEPENDENT >90 Normal >59 [facility] Comment on above: Result Comment: Reported eGFR is based on the CKD-EPI 2020 equation that does not use a race coefficient. Performed By: #### C BCA, PINR, BMP, 84291-5, 2284-8, 28179-1, LIVR #### [facility] ([id number]) [address], [address] [place] [address] Glucose [Mass/Vol] 103 mg/dL High 65-[address] [facility] Comment on above: Performed By: #### C BCA, PINR, BMP, 07865-5, 2284-8, 37773-8, LIVR #### [facility] ([id number]) [address], [address] [place] [address] Potassium [Moles/Vol] 4.4 mmol/L Normal 3.5-5.0 [facility] Comment on above: Performed By: #### C BCA, PINR, BMP, 32838-3, 2284-8, 37063-1, LIVR #### [facility] ([id number]) [address], [address] [place] [address] Sodium [Moles/Vol] 137 mmol/L Normal 134-[address] [facility] Comment on above: Performed By: #### C BCA, PINR, BMP, 30312-6, 2284-8, 59061-3, LIVR #### [facility] ([id number]) [address], [address] [place] [address] Urea nitrogen [Mass/Vol] 11 mg/dL Normal 5-27 [facility] Comment on above: Performed By: #### C BCA, PINR, BMP, 81975-9, 2284-8, 17180-5, LIVR #### [facility] ([id number]) [address], [address] [place] [address] COMPLETE BLOOD COUNTon 09-21 Erythrocyte distribution width (RBC) [Ratio] 21.1 % High 11.5-15.0 [facility] Comment on above: Performed By: #### C BCA, PINR, BMP, 30759-9, 2284-8, 34072-1, LIVR #### [facility] ([id number]) [address], [address] [place] [address] Hematocrit (Bld) [Volume fraction] 23.4 % Low 39-49 [facility] Comment on above: Performed By: #### C BCA, PINR, BMP, 54879-9, 2284-8, 53424-1, LIVR #### [facility] ([id number]) [address], [address] [place] [address] Hemoglobin (Bld) [Mass/Vol] 7.7 g/dL Low 13.0-17.0 [facility] Comment on above: Performed By: #### C BCA, PINR, BMP, 66109-9, 2284-8, 59053-0, LIVR #### [facility] ([id number]) [address], [address] [place] [address] MCH (RBC) [Entitic mass] 30.3 pg Normal 27-34 [facility] Comment on above: Performed By: #### C BCA, PINR, BMP, 44047-4, 2284-8, 18581-6, LIVR #### [facility] ([id number]) [address], [address] [place] [address] MCHC (RBC) [Mass/Vol] 32.8 g/dL Normal 32-36 [facility] Comment on above: Performed By: #### C BCA, PINR, BMP, 31646-4, 2284-8, 39900-6, LIVR #### [facility] ([id number]) [address], [address] [place] [address] MCV (RBC) [Entitic vol] 93 fL Normal 80-100 [facility] Comment on above: Performed By: #### C BCA, PINR, BMP, 91926-7, 2284-8, 99508-7, LIVR #### [facility] ([id number]) [address], [address] [place] [address] Platelet mean volume (Bld) [Entitic vol] 8.3 fL Normal 7-12 [facility] Comment on above: Performed By: #### C BCA, PINR, BMP, 23965-9, 2284-8, 20643-1, LIVR #### [facility] ([id number]) [address], [address] [place] [address] Platelets (Bld) [#/Vol] 423 10*3/uL Normal 150-450 [facility] Comment on above: Performed By: #### C BCA, PINR, BMP, 87673-3, 2284-8, 99724-5, LIVR #### [facility] ([id number]) [address], [address] [place] [address] RBC COUNT 2.53 X10E12/L Low 4.10-5.70 [facility] Comment on above: Performed By: #### C BCA, PINR, BMP, 07838-6, 2284-8, 04070-6, LIVR #### [facility] ([id number]) [address], [address] [place] [address] WBC (Bld) [#/Vol] 5.3 10*3/uL Normal 4.0-11.[address] [facility] Comment on above: Performed By: #### C BCA, PINR, BMP, 84476-9, 2284-8, 10183-2, LIVR #### [facility] ([id number]) [address], [facility] [address] [place] [address] HGB A1C (GLYCO-HGB)on 2024 Glucose [Mass/Vol] 105 mg/dL Normal [facility] Comment on above: Performed By: #### C BCA, PINR, BMP, 66106-5, 2284-8, 40725-0, LIVR #### [facility] ([id number]) [address], [address] [place] [address] HbA1c (Bld) [Mass fraction] 5.3 % Normal 4.4-5.6 [facility] Comment on above: Result Comment: NOTE ADA Guidelines Result HgbA1c Normal : less than 5.7 % Prediabetes : 5.7 % to 6.4 % Diabetes : > 6.4 % Use with caution in patients with abnormal hemoglobin variants as the half-life of red blood cells and in vivo glycation rates are affected. Performed By: #### C BCA, PINR, BMP, 44045-6, 2284-8, 67801-0, LIVR #### [facility] ([id number]) [address], [address] [place] [address] BASIC METABOLIC PANLon 09-12 Anion gap [Moles/Vol] 5 mmol/L Normal 5-15 [facility] Comment on above: Performed By: #### C BCA, PINR, BMP, 43861-6, 2284-8, 39039-2, LIVR #### [facility] ([id number]) [address], [address] [place] [address] Calcium [Mass/Vol] 8.7 mg/dL Normal 8.5-10.[address] [facility] Comment on above: Performed By: #### C BCA, PINR, BMP, 76774-4, 2284-8, 04008-1, LIVR #### [facility] ([id number]) [address], [address] [place] [address] Chloride [Moles/Vol] 101 mmol/L Normal 98-109 [facility] Comment on above: Performed By: #### C BCA, PINR, BMP, 49394-0, 2284-8, 28596-8, LIVR #### [facility] ([id number]) [address], [address] [place] [address] CO2 [Moles/Vol] 28 mmol/L Normal 22-32 [facility] Comment on above: Performed By: #### C BCA, PINR, BMP, 91815-7, 2284-8, 56361-8, LIVR #### [facility] ([id number]) [address], [address] [place] [address] Creatinine [Mass/Vol] 0.54 mg/dL Low 0.60-1.30 [facility] Comment on above: Result Comment: METH OD TRACEABLE TO IDMS STANDARD Performed By: #### C BCA, PINR, BMP, 96129-3, 2284-8, 02552-5, LIVR #### [facility] ([id number]) [address], [address] [place] [address] eGFR (CKD-EPI) NON-RACE DEPENDENT >90 Normal >59 [facility] Comment on above: Result Comment: Reported eGFR is based on the CKD-EPI 2020 equation that does not use a race coefficient. Performed By: #### C BCA, PINR, BMP, 91682-7, 2284-8, 47721-5, LIVR #### [facility] ([id number]) [address], [address] [place] [address] Glucose [Mass/Vol] 90 mg/dL Normal 65-[address] [facility] Comment on above: Performed By: #### C BCA, PINR, BMP, 63638-3, 2284-8, 46310-7, LIVR #### [facility] ([id number]) [address] [address] [place] [address] Potassium [Moles/Vol] 4.5 mmol/L Normal 3.5-5.0 [facility] Comment on above: Performed By: #### C BCA, PINR, BMP, 48104-2, 2284-8, 33301-6, LIVR #### [facility] ([id number]) [address] [address] [place] [address] Sodium [Moles/Vol] 134 mmol/L Normal 134-[address] [facility] Comment on above: Performed By: #### C BCA, PINR, BMP, 69948-5, 2284-8, 67959-3, LIVR #### [facility] ([id number]) [address], [address] [place] [address] Urea nitrogen [Mass/Vol] 10 mg/dL Normal 5-27 [facility] Comment on above: Performed By: #### C BCA, PINR, BMP, 77935-7, 2284-8, 67250-0, LIVR #### [facility] ([id number]) [address], [address] [place] [address] CBC AND AUTO DIFFon 09-12-19 25 Band form neutrophils/100 WBC (Bld) 26.0 % Normal [facility] Comment on above: Performed By: #### C BCA, PINR, BMP, 48683-6, 2284-8, 45245-9, LIVR #### [facility] ([id number]) [address], [address] [place] [address] Erythrocyte distribution width (RBC) [Ratio] 21.4 % High 11.5-15.0 [facility] Comment on above: Performed By: #### C BCA, PINR, BMP, 86034-3, 2284-8, 21204-8, LIVR #### [facility] ([id number]) [address], [address] [place] [address] FRAGMENT 1+ Abnormal NONE [facility] Comment on above: Performed By: #### C BCA, PINR, BMP, 35697-8, 2284-8, 02937-0, LIVR #### [facility] ([id number]) [address], [address] [place] [address] Hematocrit (Bld) [Volume fraction] 24.1 % Low 39-49 [facility] Comment on above: Performed By: #### C BCA, PINR, BMP, 43733-0, 2284-8, 90542-1, LIVR #### [facility] ([id number]) [address], [address] [place] [address] Hemoglobin (Bld) [Mass/Vol] 7.9 g/dL Low 13.0-17.0 [facility] Comment on above: Performed By: #### C BCA, PINR, BMP, 83961-0, 2284-8, 87255-2, LIVR #### [facility] ([id number]) [address], [address] [place] [address] Lymphocytes (Bld) [#/Vol] 0.3 10*3/uL Low 1.0-3.5 [facility] Comment on above: Performed By: #### C BCA, PINR, BMP, 87325-3, 2284-8, 65663-2, LIVR #### [facility] ([id number]) [address], [address] [place] [address] Lymphocytes/100 WBC (Bld) 5.0 % Normal [facility] Comment on above: Performed By: #### C BCA, PINR, BMP, 70328-7, 4-8, 75549-4, LIVR #### [facility] ([id number]) [address], [address] [place] [address] MCH (RBC) [Entitic mass] 30.4 pg Normal 27-34 [facility] Comment on above: Performed By: #### C BCA, PINR, BMP, 62998-8, 2284-8, 18884-1, LIVR #### [facility] ([id number]) [address], [address] [place] [address] MCHC (RBC) [Mass/Vol] 32.7 g/dL Normal 32-36 [facility] Comment on above: Performed By: #### C BCA, PINR, BMP, 53895-9, 2284-8, 59059-5, LIVR #### [facility] ([id number]) [address], [address] [place] [address] MCV (RBC) [Entitic vol] 93 fL Normal 80-100 [facility] Comment on above: Performed By: #### C BCA, PINR, BMP, 23959-0, 2284-8, 99169-1, LIVR #### [facility] ([id number]) [address], [address] [place] [address] Monocytes (Bld) [#/Vol] 0.2 10*3/uL Normal 0-0.9 [facility] Comment on above: Performed By: #### C BCA, PINR, BMP, 26454-3, 2284-8, 76273-9, LIVR #### [facility] ([id number]) [address], [address] [place] [address] Monocytes/100 WBC (Bld) 3.0 % Normal [facility] Comment on above: Performed By: #### C BCA, PINR, BMP, 65227-6, 2284-8, 73497-5, LIVR #### [facility] ([id number]) [address], [address] [place] [address] Neutrophils (Bld) [#/Vol] 6.3 10*3/uL Normal 1.5-6.6 [facility] Comment on above: Performed By: #### C BCA, PINR, BMP, 98894-2, 2284-8, 89548-8, LIVR #### [facility] ([id number]) [address], [address] [place] [address] OVALOCYTE 1+ Abnormal NONE [facility] Comment on above: Performed By: #### C BCA, PINR, BMP, 84807-4, 2284-8, 34777-2, LIVR #### [facility] ([id number]) [address], [address] [place] [address] Platelet mean volume (Bld) [Entitic vol] 8.3 fL Normal 7-12 [facility] Comment on above: Performed By: #### C BCA, PINR, BMP, 76942-0, 2284-8, 15211-0, LIVR #### [facility] ([id number]) [address], [address] [place] [address] Platelets (Bld) [#/Vol] 235 10*3/uL Normal 150-450 [facility] Comment on above: Performed By: #### C BCA, PINR, BMP, 46278-4, 2284-8, 96149-1, LIVR #### [facility] ([id number]) [address], [address] [place] [address] POLYCHROMASIA 1+ Abnormal NONE [facility] Comment on above: Performed By: #### C BCA, PINR, BMP, 38625-4, 2284-8, 12914-6, LIVR #### [facility] ([id number]) [address], [address] [place] [address] RBC COUNT 2.59 X10E12/L Low 4.10-5.70 [facility] Comment on above: Performed By: #### C BCA, PINR, BMP, 94612-7, 2284-8, 94809-3, LIVR #### [facility] ([id number]) [address], [address] [place] [address] SEG NEUTROPHIL 66.0 % Normal [facility] Comment on above: Performed By: #### C BCA, PINR, BMP, 94417-8, 2284-8, 11976-6, LIVR #### [facility] ([id number]) [address], [address] [place] [address] WBC (Bld) [#/Vol] 6.8 10*3/uL Normal 4.0-11.[address] [facility] Comment on above: Performed By: #### C BCA, PINR, BMP, 61302-8, 2284-8, 62559-1, LIVR #### [facility] ([id number]) [address], [address] [place] [address] Glucose Glucometer (BldC) [M ass/Vol]on 09-12-2024 Glucose [Mass/Vol] 126 mg/dL High 65-[address] [facility] Glucose [Mass/Vol] 100 mg/dL High 65-[address] [facility] BASIC METABOLIC PANLon 09-11 Anion gap [Moles/Vol] 5 mmol/L Normal 5-15 [facility] Comment on above: Performed By: #### C BCA, PINR, BMP, 80803-7, 2284-8, 70163-5, LIVR #### [facility] ([id number]) [address], [address] [place] [address] Calcium [Mass/Vol] 8.2 mg/dL Low 8.5-10.[address] [facility] Comment on above: Performed By: #### C BCA, PINR, BMP, 62653-9, 2284-8, 30836-6, LIVR #### [facility] ([id number]) [address], [address] [place] [address] Chloride [Moles/Vol] 102 mmol/L Normal 98-109 [facility] Comment on above: Performed By: #### C BCA, PINR, BMP, 71044-1, 2284-8, 67174-6, LIVR #### [facility] ([id number]) [address], [address] [place] [address] CO2 [Moles/Vol] 28 mmol/L Normal 22-32 [facility] Comment on above: Performed By: #### C BCA, PINR, BMP, 79052-2, 2284-8, 95116-8, LIVR #### [facility] ([id number]) [address], [address] [place] [address] Creatinine [Mass/Vol] 0.57 mg/dL Low 0.60-1.30 [facility] Comment on above: Result Comment: METH OD TRACEABLE TO IDMS STANDARD Performed By: #### C BCA, PINR, BMP, 25576-8, 2284-8, 87074-1, LIVR #### [facility] ([id number]) [address], [address] [place] [address] eGFR (CKD-EPI) NON-RACE DEPENDENT >90 Normal >59 [facility] Comment on above: Result Comment: Reported eGFR is based on the CKD-EPI 2020 equation that does not use a race coefficient. Performed By: #### C BCA, PINR, BMP, 43105-2, 2284-8, 21037-1, LIVR #### [facility] ([id number]) [address], [address] [place] [address] Glucose [Mass/Vol] 99 mg/dL Normal 65-[address] [facility] Comment on above: Performed By: #### C BCA, PINR, BMP, 31685-5, 2284-8, 22985-0, LIVR #### [facility] ([id number]) [address], [address] [place] [address] Potassium [Moles/Vol] 4.4 mmol/L Normal 3.5-5.0 [facility] Comment on above: Performed By: #### C BCA, PINR, BMP, 76044-9, 2284-8, 75392-7, LIVR #### [facility] ([id number]) [address], [address] [place] [address] Sodium [Moles/Vol] 135 mmol/L Normal 134-[address] [facility] Comment on above: Performed By: #### C BCA, PINR, BMP, 99179-6, 2284-8, 18042-2, LIVR #### [facility] ([id number]) [address], [address] [place] [address] Urea nitrogen [Mass/Vol] 11 mg/dL Normal 5-27 [facility] Comment on above: Performed By: #### C BCA, PINR, BMP, 17332-0, 2284-8, 74033-9, LIVR #### [facility] ([id number]) [address], [address] [place] [address] CBC AND AUTO DIFFon 09-11-19 25 Band form neutrophils/100 WBC (Bld) 21.0 % Normal [facility] Comment on above: Performed By: #### C BCA, PINR, BMP, 79479-5, 2284-8, 86721-4, LIVR #### [facility] ([id number]) [address], [facility] [address] [place] [address] Erythrocyte distribution width (RBC) [Ratio] 19.8 % High 11.5-15.0 [facility] Comment on above: Performed By: #### C BCA, PINR, BMP, 53365-7, 2284-8, 70612-3, LIVR #### [facility] ([id number]) [address], [facility] [address] [place] [address] FRAGMENT 1+ Abnormal NONE [facility] Comment on above: Performed By: #### C BCA, PINR, BMP, 70749-1, 2284-8, 19281-8, LIVR #### [facility] ([id number]) [address], [facility] [address] [place] [address] Hematocrit (Bld) [Volume fraction] 21.3 % Low 39-49 [facility] Comment on above: Performed By: #### C BCA, PINR, BMP, 98608-3, 2284-8, 58049-8, LIVR #### [facility] ([id number]) [address] [address] [place] [address] Hemoglobin (Bld) [Mass/Vol] 6.9 g/dL Critically low 13.0-17.0 [facility] Comment on above: Performed By: #### C BCA, PINR, BMP, 94610-0, 2284-8, 16409-3, LIVR #### [facility] ([id number]) [address], [address] [place] [address] IMMATURE MONONUCLEAR 1.0 % Normal [facility] Comment on above: Performed By: #### C BCA, PINR, BMP, 22302-0, 2284-8, 99432-0, LIVR #### [facility] ([id number]) [address], [address] [place] [address] Lymphocytes (Bld) [#/Vol] 0.6 10*3/uL Low 1.0-3.5 [facility] Comment on above: Performed By: #### C BCA, PINR, BMP, 64057-1, 2284-8, 48627-6, LIVR #### [facility] ([id number]) [address], [address] [place] [address] Lymphocytes/100 WBC (Bld) 9.0 % Normal [facility] Comment on above: Performed By: #### C BCA, PINR, BMP, 85843-9, 2284-8, 94262-5, LIVR #### [facility] ([id number]) [address], [address] [place] [address] MCH (RBC) [Entitic mass] 30.5 pg Normal 27-34 [facility] Comment on above: Performed By: #### C BCA, PINR, BMP, 57455-0, 2284-8, 79375-1, LIVR #### [facility] ([id number]) [address], [address] [place] [address] MCHC (RBC) [Mass/Vol] 32.5 g/dL Normal 32-36 [facility] Comment on above: Performed By: #### C BCA, PINR, BMP, 64766-3, 2284-8, 99437-2, LIVR #### [facility] ([id number]) [address], [address] [place] [address] MCV (RBC) [Entitic vol] 94 fL Normal 80-100 [facility] Comment on above: Performed By: #### C BCA, PINR, BMP, 93128-9, 2283-8, 90527-5, LIVR #### [facility] ([id number]) [address], [address] [place] [address] Monocytes (Bld) [#/Vol] 0.2 10*3/uL Normal 0-0.9 [facility] Comment on above: Performed By: #### C BCA, PINR, BMP, 21041-6, 4-8, 88438-0, LIVR #### [facility] ([id number]) [address], [address] [place] [address] Monocytes/100 WBC (Bld) 3.0 % Normal [facility] Comment on above: Performed By: #### C BCA, PINR, BMP, 69813-9, 2283-, 92502-7, LIVR #### [facility] ([id number]) [address], [address] [place] [address] Neutrophils (Bld) [#/Vol] 5.3 10*3/uL Normal 1.5-6.6 [facility] Comment on above: Performed By: #### C BCA, PINR, BMP, 28876-8, 2283-8, 11781-3, LIVR #### [facility] ([id number]) [address], [address] [place] [address] OVALOCYTE 2+ Abnormal NONE [facility] Comment on above: Performed By: #### C BCA, PINR, BMP, 65365-2, 2283-, 15250-2, LIVR #### [facility] ([id number]) [address], [address] [place] [address] Platelet mean volume (Bld) [Entitic vol] 8.0 fL Normal 7-12 [facility] Comment on above: Performed By: #### C BCA, PINR, BMP, 46055-7, 2284-8, 96440-9, LIVR #### [facility] ([id number]) [address], [address] [place] [address] Platelets (Bld) [#/Vol] 226 10*3/uL Normal 150-450 [facility] Comment on above: Performed By: #### C BCA, PINR, BMP, 05000-6, 2284-8, 90146-1, LIVR #### [facility] ([id number]) [address], [address] [place] [address] POLYCHROMASIA 1+ Abnormal NONE [facility] Comment on above: Performed By: #### C BCA, PINR, BMP, 53568-4, 2284-8, 24518-7, LIVR #### [facility] ([id number]) [address], [address] [place] [address] RBC COUNT 2.27 X10E12/L Low 4.10-5.70 [facility] Comment on above: Performed By: #### C BCA, PINR, BMP, 99923-3, 2284-8, 51908-7, LIVR #### [facility] ([id number]) [address], [address] [place] [address] SEG NEUTROPHIL 66.0 % Normal [facility] Comment on above: Performed By: #### C BCA, PINR, BMP, 86841-8, 2284-8, 88812-6, LIVR #### [facility] ([id number]) [address], [address] [place] [address] TEARDROP 1+ Abnormal NONE [facility] Comment on above: Performed By: #### C BCA, PINR, BMP, 53967-6, 2284-8, 55601-0, LIVR #### [facility] ([id number]) [address], [address] [place] [address] WBC (Bld) [#/Vol] 6.2 10*3/uL Normal 4.0-11.[address] [facility] Comment on above: Performed By: #### C BCA, PINR, BMP, 56513-5, 2283-8, 63033-3, LIVR #### [facility] ([id number]) [address], [address] [place] [address] Glucose Glucometer (BldC) [M ass/Vol]on 09-11-2024 Glucose [Mass/Vol] 116 mg/dL High 65-[address] [facility] Glucose [Mass/Vol] 106 mg/dL High 65-[address] [facility] Glucose [Mass/Vol] 112 mg/dL High 65-[address] [facility] Glucose [Mass/Vol] 153 mg/dL High 65-[address] [facility] HGBon 09-11-2024 Hematocrit (Bld) [Volume fraction] 24.1 % Low 39-49 [facility] Comment on above: Performed By: #### C BCA, PINR, BMP, 70227-5, 2284-02, 66335-4, LIVR #### [facility] ([id number]) [address], [address] [place] [address] Hemoglobin (Bld) [Mass/Vol] 7.9 g/dL Low 13.0-17.0 [facility] Comment on above: Performed By: #### C BCA, PINR, BMP, 53538-4, 2283-8, 50143-1, LIVR #### [facility] ([id number]) [address], [address] [place] [address] PROTIME AND INRon 09-11-2024 INR Coag (PPP) [Relative time] 1.4 {INR} High 0.9-1.2 [facility] Comment on above: Performed By: #### C BCA, PINR, BMP, 05255-9, 2283-, 80049-7, LIVR #### [facility] ([id number]) [address] [facility] [facility] [place] [address] PT Coag (PPP) [Time] 16.0 s High 9.8-13.2 [facility] Comment on above: Performed By: #### C BCA, PINR, BMP, 04648-8, 2284-8, 49156-2, LIVR #### [facility] ([id number]) [address] [facility] [place] [address] RESP PATHOGENS/WTQT-EqF-5bs 09-11-2024 Respiratory pathogens DNA and RNA panel [...] 2 Not detected (qualifier value) NOTE The [employer] Respiratory Panel 2.1 (RP2.1) [...] other pathogens. The agent(s) detected by the [employer]ation [employer] RP2.1 may not be the definite cause [...] patient with possible respiratory tract infection. Normal [facility] Comment on above: Performed By: #### C BCA, PINR, BMP, 22906-4, 2284-8, 61961-0, LIVR #### [facility] ([id number]) [address] [facility] [place] [address] XR CHEST 1 VWon 09-11-2024 XR CHEST 1 VW XR CHEST 1 VW CHEST 1 VIEW HISTORY: Pneumothorax follow-up COMPARISON: 09/11/2024, 1:48 PM IMPRESSION: * Previously seen right apical pneumothorax not well visible. Small right pleural effusion. * Left lung is clear. * Unchanged cardiomediastinal silhouette. Finalized by Kristofer Lee MD on 09/11/2024 10:30 PM Normal [facility] XR CHEST 1 VW XR CHEST [...] Escalante MD on 09/11/2024 2:02 PM Normal [facility] BF CELL CT AND DIFFon 2024 BODY FLUID COMMENT Interpreta tion- ------- Normal [facility] Comment on above: Result Comment: Refe rence values for this fluid type are undefined, as fluid accumulation is considered abnormal. SEE CYTOLOGY REPORT Corrected on 09/11 AT 1341: Previously reported as Interpretation Reference values for this fluid type are undefined, as fluid accumulation is considered abnormal. Performed By: #### C BCA, PINR, BMP, 80072-3, 2284-8, 13481-3, LIVR #### [facility] ([id number]) [address], [address] [place] [address] FLUID CLARITY CLEAR Normal [facility] Comment on above: Performed By: #### C BCA, PINR, BMP, 01461-4, 2284-8, 59005-5, LIVR #### [facility] ([id number]) [address], [address] [place] [address] FLUID COLOR STRAW Normal [facility] Comment on above: Performed By: #### C BCA, PINR, BMP, 55563-2, 2284-8, 82434-2, LIVR #### [facility] ([id number]) [address], [address] [place] [address] FLUID LYMPHOCYTE 12 % Normal [facility] Comment on above: Performed By: #### C BCA, PINR, BMP, 50302-3, 2284-8, 23830-8, LIVR #### [facility] ([id number]) [address], [address] [place] [address] FLUID NEUTROPHILS 11 % Normal [facility] Comment on above: Performed By: #### C BCA, PINR, BMP, 46147-0, 2284-8, 00096-8, LIVR #### [facility] ([id number]) [address], [address] [place] [address] 83 /uL Normal [facility] Comment on above: Performed By: #### C BCA, PINR, BMP, 43865-0, 2284-8, 58954-7, LIVR #### [facility] ([id number]) [address], [address] [place] [address] FLUID SPECIMEN TYPE PLEURAL FLUID Normal [facility] Comment on above: Result Comment: CHERYL T Performed By: #### C BCA, PINR, BMP, 43975-3, 2284-8, 96851-6, LIVR #### [facility] ([id number]) [address], [address] [place] [address] MACROPHAGES 77 % Normal [facility] Comment on above: Performed By: #### C BCA, PINR, BMP, 51468-0, 2284-8, 81337-7, LIVR #### [facility] ([id number]) [address], [address] [place] [address] 182 /uL Normal [facility] Comment on above: Performed By: #### C BCA, PINR, BMP, 87977-9, 2284-8, 64699-9, LIVR #### [facility] ([id number]) [address], [address] [place] [address] BONE MARROWon 09-10-2024 BONE MARROW SEE SEPARATE REPORT Normal [facility] Comment on above: Result Comment: REVI EWED BY Tito ALONZO M.D. Performed By: #### C BCA, PINR, BMP, 23083-6, 2284-8, 24765-3, LIVR #### [facility] ([id number]) [address], [address] [place] [address] CBC AND AUTO DIFFon 09-10-19 25 Band form neutrophils/100 WBC (Bld) 33.0 % Normal [facility] Comment on above: Performed By: #### JAIME SUTHERLAND, 2132-03 #### [facility] ([id number]) [address] [address] [place] [address] Erythrocyte distribution width (RBC) [Ratio] 20.7 % High 11.5-15.0 [facility] Comment on above: Performed By: #### JAIME SUTHERLAND, 2132-03 #### [facility] ([id number]) [address], [facility] [address] [place] [address] FRAGMENT 1+ Abnormal NONE [facility] Comment on above: Performed By: #### JAIME SUTHERLAND, 2132-03 #### [facility] ([id number]) [address] [address] Hematocrit (Bld) [Volume fraction] 21.8 % Low 39-49 [facility] Comment on above: Performed By: #### JAIME SUTHERLAND, 2132-03 #### [facility] ([id number]) [address] [address] Hemoglobin (Bld) [Mass/Vol] 7.2 g/dL Low 13.0-17.0 [facility] Comment on above: Performed By: #### JAIME SUTHERLAND, 2132-03 #### [facility] ([id number]) [address] [address] [place] [address] Lymphocytes (Bld) [#/Vol] 0.8 10*3/uL Low 1.0-3.5 [facility] Comment on above: Performed By: #### JAIME SUTHERLAND, 2132-03 #### [facility] ([id number]) [address], [facility] [address] [place] [address] Lymphocytes/100 WBC (Bld) 12.0 % Normal [facility] Comment on above: Performed By: #### JAIME SUTHERLAND, 2132-03 #### [facility] ([id number]) [address], [address] [place] [address] MCH (RBC) [Entitic mass] 30.8 pg Normal 27-34 [facility] Comment on above: Performed By: #### JAIME SUTHERLAND, 2132-03 #### [facility] ([id number]) [address], [address] [place] [address] MCHC (RBC) [Mass/Vol] 32.9 g/dL Normal 32-36 [facility] Comment on above: Performed By: #### JAIME SUTHERLAND, 2132-03 #### [facility] ([id number]) [address], [address] [place] [address] MCV (RBC) [Entitic vol] 94 fL Normal 80-100 [facility] Comment on above: Performed By: #### JAIME SUTHERLAND, 2132-03 #### [facility] ([id number]) [address], [address] [place] [address] Metamyelocytes/100 WBC (Bld) 3.0 % Normal [facility] Comment on above: Performed By: #### JAIME SUTHERLAND, 2132-03 #### [facility] ([id number]) [address], [address] [place] [address] Monocytes (Bld) [#/Vol] 0.1 10*3/uL Normal 0-0.9 [facility] Comment on above: Performed By: #### JAIME USTHERLAND, 2132-03 #### [facility] ([id number]) [address], [address] [place] [address] Monocytes/100 WBC (Bld) 1.0 % Normal [facility] Comment on above: Performed By: #### Susie WAKEFIELD TSHR, 2132-03 #### [facility] ([id number]) [address], [address] [place] [address] MYELOCYTE 1.0 % Normal [facility] Comment on above: Performed By: #### Susie WKAEFIELD, TSHR, 2132-03 #### [facility] ([id number]) [address], [address] [place] [address] Neutrophils (Bld) [#/Vol] 5.2 10*3/uL Normal 1.5-6.6 [facility] Comment on above: Performed By: #### Susie WAKEFIELD TSHR, 2132-03 #### [facility] ([id number]) [address], [address] [place] [address] OVALOCYTE 1+ Abnormal NONE [facility] Comment on above: Performed By: #### Susie WAKEFIELD TSHR, 2132-03 #### [facility] ([id number]) [address], [address] [place] [address] Platelet mean volume (Bld) [Entitic vol] 8.1 fL Normal 7-12 [facility] Comment on above: Performed By: #### Susie WAKEFIELD TSHR, 2132-03 #### [facility] ([id number]) [address], [address] [place] [address] Platelets (Bld) [#/Vol] 231 10*3/uL Normal 150-450 [facility] Comment on above: Performed By: #### Susie WAKEFIELD, TSHR, 2132-03 #### [facility] ([id number]) [address], [address] [place] [address] POLYCHROMASIA 1+ Abnormal NONE [facility] Comment on above: Performed By: #### Susie WAKEFIELD, TSHR, 2132-03 #### [facility] ([id number]) [address], [address] [place] [address] RBC COUNT 2.33 X10E12/L Low 4.10-5.70 [facility] Comment on above: Performed By: #### JAIME SUTHERLAND, 2132-03 #### [facility] ([id number]) [address], [address] [place] [address] SEG NEUTROPHIL 50.0 % Normal [facility] Comment on above: Performed By: #### JAIME SUTHERLAND, 2132-03 #### [facility] ([id number]) [address], [address] [place] [address] WBC (Bld) [#/Vol] 6.4 10*3/uL Normal 4.0-11.[address] [facility] Comment on above: Performed By: #### JAIME SUTHERLAND, 2132-03 #### [facility] ([id number]) [address], [address] [place] [address] COMPREHENSIVE METABOLIC PANE John Paul 09-10-2024 Albumin [Mass/Vol] 3.6 g/dL Normal 3.2-5.[address] [facility] Comment on above: Performed By: #### JAIME SUTHERLAND, 2132-03 #### [facility] ([id number]) [address], [address] [place] [address] ALP [Catalytic activity/Vol] 75 U/L Normal 39-130 [facility] Comment on above: Performed By: #### JAIME SUTHERLAND, 2132-03 #### [facility] ([id number]) [address], [address] [place] [address] ALT [Catalytic activity/Vol] 7 U/L Normal 0-40 [facility] Comment on above: Performed By: #### JAIME SUTHERLAND, 2132-03 #### [facility] ([id number]) [address], [address] [place] [address] Anion gap [Moles/Vol] 5 mmol/L Normal 5-15 [facility] Comment on above: Performed By: #### JAIME SUTHERLAND, 2132-03 #### [facility] ([id number]) [address], [address] [place] [address] AST [Catalytic activity/Vol] 17 U/L Normal 0-41 [facility] Comment on above: Performed By: #### JAIME SUTHERLAND, 2132-03 #### [facility] ([id number]) [address], [address] [place] [address] Bilirubin [Mass/Vol] 0.8 mg/dL Normal 0.3-1.2 [facility] Comment on above: Performed By: #### JAIME SUTHERLAND, 2132-03 #### [facility] ([id number]) [address], [address] [place] [address] Calcium [Mass/Vol] 8.1 mg/dL Low 8.5-10.[address] [facility] Comment on above: Performed By: #### JAIME SUTHERLAND, 2132-03 #### [facility] ([id number]) [address], [address] [place] [address] Chloride [Moles/Vol] 102 mmol/L Normal 98-109 [facility] Comment on above: Performed By: #### JAIME SUTHERLAND, 2132-03 #### [facility] ([id number]) [address], [address] [place] [address] CO2 [Moles/Vol] 28 mmol/L Normal 22-32 [facility] Comment on above: Performed By: #### JAIME SUTHERLAND, 2132-03 #### [facility] ([id number]) [address], [address] [place] [address] Creatinine [Mass/Vol] 0.65 mg/dL Normal 0.60-1.30 [facility] Comment on above: Result Comment: METH OD TRACEABLE TO IDMS STANDARD Performed By: #### JAIME SUTHERLAND, 2132-03 #### [facility] ([id number]) [address] [place] [address] eGFR (CKD-EPI) NON-RACE DEPENDENT >90 Normal >59 [facility] Comment on above: Result Comment: Reported eGFR is based on the CKD-EPI 2020 equation that does not use a race coefficient. Performed By: #### JAIME SUTHERLAND, 2132-03 #### [facility] ([id number]) [address], [facility] [address] [place] [address] Glucose [Mass/Vol] 113 mg/dL High 65-[address] [facility] Comment on above: Performed By: #### JAIME SUTHERLAND, 2132-03 #### [facility] ([id number]) [address], [address] [place] [address] Potassium [Moles/Vol] 4.1 mmol/L Normal 3.5-5.0 [facility] Comment on above: Performed By: #### JAIME SUTHERLAND, 2132-03 #### [facility] ([id number]) [address], [address] [place] [address] Protein [Mass/Vol] 6.7 g/dL Normal 6.0-8.[address] [facility] Comment on above: Performed By: #### JAIME SUTHERLAND, 2132-03 #### [facility] ([id number]) [address], [address] [place] [address] Sodium [Moles/Vol] 135 mmol/L Normal 134-[address] [facility] Comment on above: Performed By: #### JAIME SUTHERLAND, 2132-03 #### [facility] ([id number]) [address], [address] [place] [address] Urea nitrogen [Mass/Vol] 11 mg/dL Normal 5-27 [facility] Comment on above: Performed By: #### C ASHU, TSHR, 2132-03 #### [facility] ([id number]) [address] [place] [address], [address] [place] [address] Cytologyon 09-10-2024 Cytology Normal [facility] Comment on above: Result Comment: [facility] [address] [place] [address] Cytology Consultation Patient Name:PENNY ORDAZ:1960 (Age: 63)Gender:MTaken:09/10/2024Reported:09/13/2024 14:09Physician(s):Wendi Lai M.D. ([phone])Copy To:Gianluca Mahan [facility] Services[facility] #:[id number]. Rec. 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 Comparison of this result to serum or plasma is recommended. Performed By: #### Susie WAKEFIELD TSHR, 2132-03 #### [facility] ([id number]) [address], [address] [address] FLUID CULTUREon 09-10-2024 Bacteria identified Aer cx Nom (Body fld) GRAM STAIN WHITE BLOOD CELLS PRESENT NO ORGANISMS SEEN ON CONCENTRATED SMEAR CULTURE RESULTS NO GROWTH 5 DAYS Normal [facility] Comment on above: Performed By: #### JAIME SUTHERLAND, 2132-03 #### [facility] ([id number]) [address], [address] [address] FLUID LDHon 09-10-2024 FLUID LDH 185 U/L Normal [facility] Comment on above: Result Comment: The reference interval and other method performance specifications are unavailable for this body fluid. Comparison of this result to serum or plasma is recommended. Performed By: #### Susie WAKEFIELD TSHBrit, 2132-03 #### [facility] ([id number]) [address], [address] [address] [address] LD SPECIMEN TYPE FLUID Normal [facility] Comment on above: Result Comment: PLEU RAL FLUID RIGHT Performed By: #### Susie WAKEFIELD TSHBrit, 2132-03 #### [facility] ([id number]) [address], [address] [address] FLUID T. PROTEINon 5 FLUID TOT. PROTEIN 2.1 g/dL Normal [facility] Comment on above: Result Comment: The reference interval and other method performance specifications are unavailable for this body fluid. Comparison of this result to serum or plasma is recommended. Performed By: #### Susie WAKEFIELD TSHR, 2132-03 #### [facility] ([id number]) [address], [address] [address] TP SPECIMEN TYPE FLUID Normal [facility] Comment on above: Result Comment: PLEU RAL FLUID RIGHT Performed By: #### C BC, TSHR, 2132-03 #### [facility] ([id number]) [address], [address] [place] [address] FLUID TRIGLYCERIDEon 025 FLUID TRIGLYCERIDE 11 mg/dL Normal [facility] Comment on above: Result Comment: The reference interval and other method performance specifications are unavailable for this body fluid. Comparison of this result to serum or plasma is recommended. Performed By: #### C BCA, PINR, BMP, 77874-4, 2284-8, 84296-2, LIVR #### [facility] ([id number]) [address], [address] [place] [address] TRIG SPECIMEN TYPE FLUID Normal [facility] Comment on above: Result Comment: PLEU RAL FLUID RIGHT Performed By: #### C BCA, PINR, BMP, 96343-9, 2284-8, 06740-9, LIVR #### [facility] ([id number]) [address], [address] [place] [address] Flow cytometry specialist re view Jian (Unsp spec) [Interp]on 09-10-2024 FLOW CYTOMETRY BM SEE SEPARATE REPORT Normal [facility] Comment on above: Result Comment: REVI EWED BY Tito ALONZO M.D. Performed By: #### C BCA, PINR, BMP, 64889-4, 2284-8, 34856-7, LIVR #### [facility] ([id number]) [address], [address] [place] [address] Glucose Glucometer (BldC) [M ass/Vol]on 09-10-2024 Glucose [Mass/Vol] 97 mg/dL Normal 65-[address] [facility] Glucose [Mass/Vol] 99 mg/dL Normal 65-[address] [facility] Glucose [Mass/Vol] 155 mg/dL High 65-[address] [facility] Karyotype Nom (BM)on 025 CHROMOSOME BONE MARROW SEE COMMENTS 12/2024 10:41 AM Normal [facility] Comment on above: Result Comment: NOTE [...] of the testing process was performed at [facility] Linkfluence site [id number], [id number], [id number]. Released By Angie Vuong D.O. Test Performed by: [address] [address] Scratch Finisher: Alexandre Crain Ph.D.; CLIA# [id number] Performed By: #### C BCA, PINR, BMP, , 4-8, 45474-7, LIVR #### [facility] ([id number]) [address], [address] [place] [address] LDH [Catalytic activity/Vol] on 09-10-2024 LDH 610 U/L High 100-235 [facility] Comment on above: Performed By: #### C BC, TSHR, 2132-03 #### [facility] ([id number]) [address], [address] [place] [address] Laboratory comment Jian (Repo rt)on 09-10-2024 UNLISTED LAB TEST Sent to reference lab Normal [facility] Comment on above: Performed By: #### C BCA, PINR, BMP, , 2284-02, 36248-2, LIVR #### [facility] ([id number]) [address], [address] [place] [address] PHOSPHORUSon 09-10-2024 Phosphate [Mass/Vol] 3.1 mg/dL Normal 2.4-4.9 [facility] Comment on above: Performed By: #### C ASHU, TSHR, 2132-03 #### [facility] ([id number]) [address], [address] [place] [address] PROTIME AND INRon 09-10-2024 INR Coag (PPP) [Relative time] 1.4 {INR} High 0.8-1.1 [facility] Comment on above: Performed By: #### Susie BC, TSHR, 2132-03 #### [facility] ([id number]) [address], [address] [place] [address] PT Coag (PPP) [Time] 16.3 s High 9.8-13.2 [facility] Comment on above: Performed By: #### C BC, TSHR, 2132-03 #### [facility] ([id number]) [address] [place] [address], [address] [place] [address] Procalcitonin IA [Mass/Vol]o n 09-10-2024 PROCALCITONIN 0.10 ng/mL High <0.05 [facility] Comment on above: Result Comment: NOTE <0.50 ng/mL - Low risk of severe sepsis and/or septic shock. <2.00 ng/mL - Recommend retesting within 6-24 hours. >2.00 ng/mL - High risk of sepsis and/or septic shock. Performed By: #### C ASHU, TSHR, 2132-03 #### [facility] ([id number]) [address] [place] [address], [address] [place] [address] Surgical Pathologyon 025 Surgical Pathology Normal [facility] Comment on above: Result Comment: [facility] [address] [place] [address] Bone Marrow Consultation Patient Name:PENNY ORDAZ:1960 (Age: 63)Gender:MTaken:09/10/2024Reported:09/15/2024Physician(s):Yeny Tyson ([phone])Copy To:Fredrick Sousa [facility] Services[facility] #:[id number]. Rec. #:[id number]: #[id number] Final Pathologic Diagnosis C/W PRIMARY MYELOFIBROSIS in [...] circulating nRBCs. 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 There is [...] acquisition are identified on maturing myeloid cells. [place] on the lymphoid population demonstrates a mixed population of phenotypically unremarkable T-cells, polyclonal B-cells, and natural killer cells, without a detectable monoclonal population. No significant plasma cell population is identified. Immunophenotyping antibodies tested: CD2, CD3, CD4, CD5, CD7, CD8, CD10, CD13, CD16, CD19, CD20, CD23, CD33, CD34, CD38, CD43, CD45, CD56, CD117, CD123, CD138, TRCB1, [place], and Lambda. Immunophenotyping Comment: Immunophenotyping has been used in this diagnostic evaluation. This test was developed and its performance characteristics determined by the [facility] Department. It has not been [...] The marrow study reveals primary myelofibrosis (see S25???4700). Electronically Signed Out Arceino Alonzo MD Interpretation performed at [facility], [address] [place] [address], License number: [id number]. Clinical History Concern for lymphoma, CT abdomen pelvis with bulky retroperitoneal, right iliac, inguinal lymphadenopathy with splenomegaly. Gross Description 1. Received in B+, labeled CHARISSE, right iliac crest BM clot , is a 1.9 x 0.7 x 0.1 cm aggregate of dark red-brown, clotted hemorrhagic material. The specimen is submitted entirely in a single cassette. (1,ns,[id number], m5)MW 2. Received in B+, labeled CHARISSE, right iliac crest BMBX , is a cylindrical bone core biopsy, 0.8 in length x 0.3 cm in diameter. The specimen is submitted entirely in a single cassette, following brief decalcification in Rapid[employer]. (1,ns,[id number], m5)MW mxw/09/10/2024SAN Microscopic Findings Clinical History: Retroperitoneal [...] 09-10-2024 Urate [Mass/Vol] 6.1 mg/dL Normal 2.6-7.2 [facility] Comment on above: Performed By: #### JAIME SUTHERLAND, 2132-03 #### [facility] ([id number]) [address], [address] [place] [address] BASIC METABOLIC PANLon 09-09 Anion gap [Moles/Vol] 3 mmol/L Low 5-15 [facility] Comment on above: Performed By: #### JAIME SUTHERLAND, 2132-03 #### [facility] ([id number]) [address], [address] [place] [address] Calcium [Mass/Vol] 8.2 mg/dL Low 8.5-10.[address] [facility] Comment on above: Performed By: #### JAIME SUTHERLAND, 2132-03 #### [facility] ([id number]) [address], [address] [place] [address] Chloride [Moles/Vol] 104 mmol/L Normal 98-109 [facility] Comment on above: Performed By: #### Susie WAKEFIELD TSHBrit, 2132-03 #### [facility] ([id number]) [address], [address] [place] [address] CO2 [Moles/Vol] 28 mmol/L Normal 22-32 [facility] Comment on above: Performed By: #### JAIME SUTHERLAND, 2132-03 #### [facility] ([id number]) [address], [address] [place] [address] Creatinine [Mass/Vol] 0.63 mg/dL Normal 0.60-1.30 [facility] Comment on above: Result Comment: METH OD TRACEABLE TO IDMS STANDARD Performed By: #### JAIME SUTHERLAND, 2132-03 #### [facility] ([id number]) [address], [facility] [address] [place] [address] eGFR (CKD-EPI) NON-RACE DEPENDENT >90 Normal >59 [facility] Comment on above: Result Comment: Reported eGFR is based on the CKD-EPI 2020 equation that does not use a race coefficient. Performed By: #### JAIME SUTHERLAND, 2132-03 #### [facility] ([id number]) [address], [facility] [address] [place] [address] Glucose [Mass/Vol] 112 mg/dL High 65-[address] [facility] Comment on above: Performed By: #### JAIME SUTHERLAND, 2132-03 #### [facility] ([id number]) [address] [address] [place] [address] Potassium [Moles/Vol] 4.2 mmol/L Normal 3.5-5.0 [facility] Comment on above: Performed By: #### JAIME SUTHERLAND, 2132-03 #### [facility] ([id number]) [address] [address] [place] [address] Sodium [Moles/Vol] 135 mmol/L Normal 134-[address] [facility] Comment on above: Performed By: #### JAIME SUTHERLAND, 2132-03 #### [facility] ([id number]) [address] [address] [place] [address] Urea nitrogen [Mass/Vol] 12 mg/dL Normal 5-27 [facility] Comment on above: Performed By: #### JAIME SUTHERLAND, 2132-03 #### [facility] ([id number]) [address] [address] [place] [address] CBC AND AUTO DIFFon 09-09-19 25 ABSOLUTE BASOPHIL 0.1 X10E9/L Normal 0.0-0.[address] [facility] Comment on above: Performed By: #### C JAIME WAKEFIELD, 2132-03 #### [facility] ([id number]) [address], [address] [place] [address] Band form neutrophils/100 WBC (Bld) 5.8 % Normal [facility] Comment on above: Performed By: #### Susie WAKEFIELD TSHR, 2132-03 #### [facility] ([id number]) [address], [address] [place] [address] Basophils/100 WBC (Bld) 1.0 % Normal [facility] Comment on above: Performed By: #### JAIME SUTHERLAND, 2132-03 #### [facility] ([id number]) [address], [facility] [address] [place] [address] Erythrocyte distribution width (RBC) [Ratio] 20.4 % High 11.5-15.0 [facility] Comment on above: Performed By: #### Susie WAKEFIELD TSHR, 2132-03 #### [facility] ([id number]) [address], [facility] [address] [place] [address] Hematocrit (Bld) [Volume fraction] 22.1 % Low 39-49 [facility] Comment on above: Performed By: #### Susie WAKEFIELD TSHBrit, 2132-03 #### [facility] ([id number]) [address], [facility] [address] [place] [address] Hemoglobin (Bld) [Mass/Vol] 7.2 g/dL Low 13.0-17.0 [facility] Comment on above: Performed By: #### Susie WAKEFIELD TSHR, 2132-03 #### [facility] ([id number]) [address], [address] [place] [address] Lymphocytes (Bld) [#/Vol] 0.4 10*3/uL Low 1.0-3.5 [facility] Comment on above: Performed By: #### Susie WAKEFIELD TSHR, 2132-03 #### [facility] ([id number]) [address], [address] [place] [address] Lymphocytes/100 WBC (Bld) 6.7 % Normal [facility] Comment on above: Performed By: #### C ASHU TSHR, 2132-03 #### [facility] ([id number]) [address], [address] [place] [address] MCH (RBC) [Entitic mass] 30.2 pg Normal 27-34 [facility] Comment on above: Performed By: #### C ASHU TSHR, 2132-03 #### [facility] ([id number]) [address], [facility] [address] [place] [address] MCHC (RBC) [Mass/Vol] 32.5 g/dL Normal 32-36 [facility] Comment on above: Performed By: #### Susie WAKEFIELD TSHR, 2132-03 #### [facility] ([id number]) [address], [address] [place] [address] MCV (RBC) [Entitic vol] 93 fL Normal 80-100 [facility] Comment on above: Performed By: #### Susie WAKEFIELD TSHR, 2132-03 #### [facility] ([id number]) [address], [address] [place] [address] Monocytes (Bld) [#/Vol] 0.1 10*3/uL Normal 0-0.9 [facility] Comment on above: Performed By: #### Susie WAKEFIELD TSHR, 2132-03 #### [facility] ([id number]) [address], [facility] [address] [place] [address] Monocytes/100 WBC (Bld) 1.0 % Normal [facility] Comment on above: Performed By: #### Susie WAKEFIELD TSHR, 2132-03 #### [facility] ([id number]) [address], [address] [place] [address] MYELOCYTE 1.0 % Normal [facility] Comment on above: Performed By: #### JAIME SUTHERLAND, 2132-03 #### [facility] ([id number]) [address], [address] [place] [address] Neutrophils (Bld) [#/Vol] 5.9 10*3/uL Normal 1.5-6.6 [facility] Comment on above: Performed By: #### JAIME SUTHERLAND, 2132-03 #### [facility] ([id number]) [address], [address] [place] [address] OVALOCYTE 2+ Abnormal NONE [facility] Comment on above: Performed By: #### JAIME SUTHERLAND, 2132-03 #### [facility] ([id number]) [address], [address] [place] [address] Platelet mean volume (Bld) [Entitic vol] 7.7 fL Normal 7-12 [facility] Comment on above: Performed By: #### JAIME SUTHERLAND, 2132-03 #### [facility] ([id number]) [address], [address] [place] [address] Platelets (Bld) [#/Vol] 236 10*3/uL Normal 150-450 [facility] Comment on above: Performed By: #### JAIME SUTHERLAND, 2132-03 #### [facility] ([id number]) [address], [address] [place] [address] RBC COUNT 2.38 X10E12/L Low 4.10-5.70 [facility] Comment on above: Performed By: #### Susie WAKEFIELD TSHR, 2132-03 #### [facility] ([id number]) [address], [address] [place] [address] SEG NEUTROPHIL 84.5 % Normal [facility] Comment on above: Performed By: #### C BC, TSHR, 2132-03 #### [facility] ([id number]) [address], [address] [place] [address] TOXIC GRANULATION 1+ Abnormal NONE [facility] Comment on above: Performed By: #### C BC, TSHR, 2132-03 #### [facility] ([id number]) [address], [address] [place] [address] WBC (Bld) [#/Vol] 6.5 10*3/uL Normal 4.0-11.[address] [facility] Comment on above: Performed By: #### C BC, TSHR, 2132-03 #### [facility] ([id number]) [address], [address] [place] [address] CT CHEST W CONTon 09-09-2024 CT CHEST [...] Harmon MD on 09/09/2024 9:05 AM Normal [facility] HBV core Ab IA Qlon 09-09-19 ANTI HBc Non-Reactive Normal NRCT [facility] Comment on above: Result Comment: NEW TEST METHOD Performed By: #### C ASHU, TSHR, 2132-03 #### [facility] ([id number]) [address], [address] [place] [address] HBV surface Ab IA [facility] 09-09 Anti HBs quant. >500.00 Normal [facility] Comment on above: Result Comment: NOTE Vaccinated: >=10.00 mIU/mL, Positive (Immune) Unvaccinated: <10.00 mIU/mL, Negative (Not Immune) Interpretive values have changed due to implementation of a new method. Values run higher than previous method. Performed By: #### Susie WAKEFIELD, TSHR, 2132-03 #### [facility] ([id number]) [address], [address] [place] [address] HBV surface Ag IA Qlon 09-09 HEPATITIS B SURF AG Non-Reactive Normal NRCT [facility] Comment on above: Result Comment: NEW TEST METHOD Performed By: #### Susie WAKEFIELD, TSHR, 2132-03 #### [facility] ([id number]) [address], [address] [place] [address] MAGNESIUMon 09-09-2024 Magnesium [Mass/Vol] 2.0 mg/dL Normal 1.8-2.6 [facility] Comment on above: Performed By: #### C ASHU TSHR, 2132-03 #### [facility] ([id number]) [address], [address] [place] [address] MR BRAIN W WO CONTon 025 MR [...] David Stuart on 09/09/2024 2:26 PM Normal [facility] PROTIME AND INRon 09-09-2024 INR Coag (PPP) [Relative time] 1.4 {INR} High 0.8-1.1 [facility] Comment on above: Performed By: #### C ASHU TSHR, 2132-03 #### [facility] ([id number]) [address], [address] [place] [address] PT Coag (PPP) [Time] 16.6 s High 9.8-13.2 [facility] Comment on above: Performed By: #### Susie WAKEFIELD TSHR, 2132-03 #### [facility] ([id number]) [address], [address] [place] [address] Anileridine Ql (U)on 025 JO1 ANTIBODY <0.2 Normal <1.0 [facility] Comment on above: Performed By: #### C BC, TSHR, 2132-03 #### [facility] ([id number]) [address], [address] [place] [address] BASIC METABOLIC PANLon 09-08 Anion gap [Moles/Vol] 8 mmol/L Normal 5-15 [facility] Comment on above: Performed By: #### C BCA, PINR, BMP, 72753-9, 2284-8, 83771-1, LIVR #### [facility] ([id number]) [address], [address] [place] [address] Calcium [Mass/Vol] 8.6 mg/dL Normal 8.5-10.[address] [facility] Comment on above: Performed By: #### C BCA, PINR, BMP, 92414-3, 2284-8, 62183-1, LIVR #### [facility] ([id number]) [address], [address] [place] [address] Chloride [Moles/Vol] 104 mmol/L Normal 98-109 [facility] Comment on above: Performed By: #### C BCA, PINR, BMP, 32462-2, 2284-8, 17849-8, LIVR #### [facility] ([id number]) [address], [address] [place] [address] CO2 [Moles/Vol] 23 mmol/L Normal 22-32 [facility] Comment on above: Performed By: #### C BCA, PINR, BMP, 70695-3, 2284-8, 49722-0, LIVR #### [facility] ([id number]) [address], [address] [place] [address] Creatinine [Mass/Vol] 0.67 mg/dL Normal 0.60-1.30 [facility] Comment on above: Result Comment: METH OD TRACEABLE TO IDMS STANDARD Performed By: #### C BCA, PINR, BMP, 04672-0, 2284-8, 77008-7, LIVR #### [facility] ([id number]) [address], [address] [place] [address] eGFR (CKD-EPI) NON-RACE DEPENDENT >90 Normal >59 [facility] Comment on above: Result Comment: Reported eGFR is based on the CKD-EPI 2020 equation that does not use a race coefficient. Performed By: #### C BCA, PINR, BMP, 88028-0, 2284-8, 20226-6, LIVR #### [facility] ([id number]) [address], [address] [place] [address] Glucose [Mass/Vol] 86 mg/dL Normal 65-[address] [facility] Comment on above: Performed By: #### C BCA, PINR, BMP, 76628-4, 2284-8, 22573-3, LIVR #### [facility] ([id number]) [address] [address] Potassium [Moles/Vol] 4.4 mmol/L Normal 3.5-5.0 [facility] Comment on above: Performed By: #### C BCA, PINR, BMP, 83903-7, 2284-8, 02334-2, LIVR #### [facility] ([id number]) [address], [address] [place] [address] Sodium [Moles/Vol] 135 mmol/L Normal 134-[address] [facility] Comment on above: Performed By: #### C BCA, PINR, BMP, 67293-6, 2284-8, 58463-6, LIVR #### [facility] ([id number]) [address], [address] [place] [address] Urea nitrogen [Mass/Vol] 13 mg/dL Normal 5-27 [facility] Comment on above: Performed By: #### C BCA, PINR, BMP, 12727-3, 2284-8, 65746-5, LIVR #### [facility] ([id number]) [address], [address] [address] CBC AND AUTO DIFFon 09-08-19 25 ABSOLUTE BASOPHIL 0.1 X10E9/L Normal 0.0-0.[address] [facility] Comment on above: Performed By: #### C BCA, PINR, BMP, 12318-2, 4-8, 38875-6, LIVR #### [facility] ([id number]) [address] [address] ABSOLUTE NEUTROPHIL 6.0 X10E9/L Normal 1.5-6.6 [facility] Comment on above: Performed By: #### C BCA, PINR, BMP, 21233-1, 2283-8, 84296-3, LIVR #### [facility] ([id number]) [address] [address] Basophils/100 WBC (Bld) 1.2 % Normal [facility] Comment on above: Performed By: #### C BCA, PINR, BMP, 65227-1, 2283-8, 55995-3, LIVR #### [facility] ([id number]) [address] [address] Eosinophils (Bld) [#/Vol] 0.0 10*3/uL Normal 0.0-0.4 [facility] Comment on above: Performed By: #### C BCA, PINR, BMP, 82186-4, 4-8, 49453-0, LIVR #### [facility] ([id number]) [address], [address] [address] Eosinophils/100 WBC (Bld) 0.1 % Normal [facility] Comment on above: Performed By: #### C BCA, PINR, BMP, 85558-4, 2284-8, 62694-1, LIVR #### [facility] ([id number]) [address], [address] [place] [address] Erythrocyte distribution width (RBC) [Ratio] 21.0 % High 11.5-15.0 [facility] Comment on above: Performed By: #### C BCA, PINR, BMP, 88930-0, 2284-8, 75451-9, LIVR #### [facility] ([id number]) [address], [address] [place] [address] FRAGMENT 1+ Abnormal NONE [facility] Comment on above: Performed By: #### C BCA, PINR, BMP, 54429-4, 2284-8, 79983-1, LIVR #### [facility] ([id number]) [address], [address] [place] [address] Hematocrit (Bld) [Volume fraction] 21.7 % Low 39-49 [facility] Comment on above: Performed By: #### C BCA, PINR, BMP, 10510-6, 2284-8, 52764-5, LIVR #### [facility] ([id number]) [address], [address] [place] [address] Hemoglobin (Bld) [Mass/Vol] 7.4 g/dL Low 13.0-17.0 [facility] Comment on above: Performed By: #### C BCA, PINR, BMP, 57658-3, 2284-8, 38925-2, LIVR #### [facility] ([id number]) [address], [facility] [address] [place] [address] Lymphocytes (Bld) [#/Vol] 0.6 10*3/uL Low 1.0-3.5 [facility] Comment on above: Performed By: #### C BCA, PINR, BMP, 06061-4, 2284-8, 45525-7, LIVR #### [facility] ([id number]) [address], [address] [place] [address] Lymphocytes/100 WBC (Bld) 8.2 % Normal [facility] Comment on above: Performed By: #### C BCA, PINR, BMP, 92750-6, 2284-8, 96117-8, LIVR #### [facility] ([id number]) [address], [address] [place] [address] MCH (RBC) [Entitic mass] 31.4 pg Normal 27-34 [facility] Comment on above: Performed By: #### C BCA, PINR, BMP, 47401-5, 2284-8, 26864-2, LIVR #### [facility] ([id number]) [address], [address] [place] [address] MCHC (RBC) [Mass/Vol] 34.1 g/dL Normal 32-36 [facility] Comment on above: Performed By: #### C BCA, PINR, BMP, 03885-2, 2284-8, 20686-0, LIVR #### [facility] ([id number]) [address], [address] [place] [address] MCV (RBC) [Entitic vol] 92 fL Normal 80-100 [facility] Comment on above: Performed By: #### C BCA, PINR, BMP, 89583-5, 2284-8, 26832-7, LIVR #### [facility] ([id number]) [address] [address] [place] [address] Monocytes (Bld) [#/Vol] 0.4 10*3/uL Normal 0-0.9 [facility] Comment on above: Performed By: #### C BCA, PINR, BMP, 51284-2, 2284-8, 21748-2, LIVR #### [facility] ([id number]) [address], [address] [place] [address] Monocytes/100 WBC (Bld) 5.7 % Normal [facility] Comment on above: Performed By: #### C BCA, PINR, BMP, 42128-1, 2284-8, 73252-1, LIVR #### [facility] ([id number]) [address], [address] [place] [address] Neutrophils/100 WBC (Bld) 84.8 % Normal [facility] Comment on above: Performed By: #### C BCA, PINR, BMP, 67645-1, 2284-8, 68234-8, LIVR #### [facility] ([id number]) [address], [facility] [address] [place] [address] OVALOCYTE 1+ Abnormal NONE [facility] Comment on above: Performed By: #### C BCA, PINR, BMP, 51682-5, 2284-8, 34717-1, LIVR #### [facility] ([id number]) [address], [address] [place] [address] Platelet mean volume (Bld) [Entitic vol] 7.4 fL Normal 7-12 [facility] Comment on above: Performed By: #### C BCA, PINR, BMP, 32552-6, 2284-8, 99489-2, LIVR #### [facility] ([id number]) [address], [address] [place] [address] Platelets (Bld) [#/Vol] 245 10*3/uL Normal 150-450 [facility] Comment on above: Performed By: #### C BCA, PINR, BMP, 23830-0, 2284-8, 24659-8, LIVR #### [facility] ([id number]) [address], [address] [place] [address] RBC COUNT 2.36 X10E12/L Low 4.10-5.70 [facility] Comment on above: Performed By: #### C BCA, PINR, BMP, 46648-5, 2284-8, 53589-3, LIVR #### [facility] ([id number]) [address] [facility], [address] [place] [address] TEARDROP 1+ Abnormal NONE [facility] Comment on above: Performed By: #### C BCA, PINR, BMP, 45927-1, 2284-8, 41749-5, LIVR #### [facility] ([id number]) [address] [place] [address], [address] [place] [address] WBC (Bld) [#/Vol] 7.1 10*3/uL Normal 4.0-11.[address] [facility] Comment on above: Performed By: #### C BCA, PINR, BMP, 39563-4, 4-8, 73588-2, LIVR #### [facility] ([id number]) [address] [place] [address], [address] [place] [address] Chromatin Ab Qlon 09-08-2024 CHROMATIN AB IGG <0.2 Normal <1.0 [facility] Comment on above: Performed By: #### C MP, 93894-4 #### [facility] ([id number]) [address] [place] [address], [address] [place] [address] Clinical Pathologyon 025 Clinical Pathology Normal [facility] Comment on above: Result Comment: [facility] [address] [place] [address] Clinical Pathology Report Patient Name:PENNY ORDAZ:1960 (Age: 63)Gender:MTaken:09/08/2024Reported:09/10/2024Physician(s):Yeny Tyson ([phone])Copy To: Rec. 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 Mild hypoalbuminemia. Report Electronically Signed Out df/09/10/2024Asher Glez MD Interpretation performed at [facility], [address] [place] [address], License number: [id number]. Clinical History D64.9, R59.1, R16.1. SERUM PROTEIN ELECTROPHORESIS SAMPLE NO: [id number] ELECTROPHORETIC FRACTION CONCENTRATIONS (g/dL) PATIENT REFERENCE RANGE [...] IgA : 269 IgM : 126 Free [place]: 4.45 Free Lambda: 2.47 Free [place]/Lambda ratio: 1.80 Specimen(s) Received 1: Serum Protein Electrophoresis 2: Serum IEP Fee Codes(s): 1; 04215-92 2; 33427-93 Clinical Pathology Blood Sme ar Reviewon 09-08-2024 Clinical Pathology Blood Smear Review Normal [facility] Comment on above: Result Comment: [facility] [address] [place] [address] Clinical Pathology Report Patient Name:PENNY ORDAZ:1960 (Age: 63)Gender:MTaken:09/08/2024Reported:09/12/2024Physician(s):Wendi Lia M.D. ([phone])Copy To: Rec. #:[id number]: #[id number] Final Pathologic Diagnosis PERIPHERAL BLOOD: - Normochromic, [...] Out rxd/09/12/2024Monico Ayala MD [facility], [address] [place] [address], License number: [id number]. Clinical History D64.9 BLOOD SMEAR EVALUATION CBC (09/08/2024 0308): WBC = 7.1 X10E9/L; HGB = 7.4 g/dL; HCT = 21.7%; MCV = 92 fL; PLT = 245 X10E9/L Specimen(s) Received Blood Smear Review Fee Codes(s): 1; 31201 DNA double strand Ab Qn (S)o n 09-08-2024 DOUBLE STRANDED DNA <1 Normal <5 [facility] Comment on above: Result Comment: Interpretation-------- <5 Negative 5-9 Indeterminate >9 Positive Performed By: #### C , 66328-1 #### [facility] ([id number]) [address] [place] [address], [address] [place] [address] FLOW CYTOMETRYon 09-08-2024 FLOW CYTOMETRY SEE SEPARATE REPORT Normal P [facility] Comment on above: Result Comment: REVI EWED BY Tito ALONZO M.D. Performed By: #### C BCA, PINR, BMP, 52325-0, 2284-8, 53334-3, LIVR #### [facility] ([id number]) [address], [address] [place] [address] Folate [Mass/Vol]on 09-08-19 25 FOLIC ACID 9.1 ng/mL Normal >5.8 [facility] Comment on above: Result Comment: NEW REFERENCE RANGE Performed By: #### C BCA, PINR, BMP, 41205-1, 4-8, 14114-6, LIVR #### [facility] ([id number]) [address], [address] [place] [address] Haptoglobin Nephelometry [Ma ss/Vol]on 09-08-2024 HAPTOGLOBIN 70 mg/dL Normal 32-228 [facility] Comment on above: Performed By: #### Susie AARON, 20138-4 #### [facility] ([id number]) [address], [address] [place] [address] IMMUNOELECTROPHORESIS FOR TH ERAPY MONITORINGon 09-08-2024 FREE KELSI/LAMBD RATIO 1.80 High 0.26-1.65 [facility] Comment on above: Performed By: #### Susie AARON, 11019-4 #### [facility] ([id number]) [address], [address] [place] [address] FREE KAPPA LT CHAINS 4.45 mg/dL High 0.33-1.94 [facility] Comment on above: Performed By: #### Susie AARON, 16938-4 #### [facility] ([id number]) [address], [address] [place] [address] FREE LAMBDA LT CHAINS 2.47 mg/dL Normal 0.57-2.63 [facility] Comment on above: Performed By: #### Susie AARON, 41122-0 #### [facility] ([id number]) [address], [address] [place] [address] IgA [Mass/Vol] 269 mg/dL Normal 68-378 [facility] Comment on above: Performed By: #### Susie AARON, 49612-1 #### [facility] ([id number]) [address], [address] [place] [address] IgG [Mass/Vol] 1236 mg/dL Normal 635-1741 [facility] Comment on above: Performed By: #### Susie AARON, 60440-1 #### [facility] ([id number]) [address], [address] [place] [address] IgM [Mass/Vol] 126 mg/dL Normal 45-281 [facility] Comment on above: Performed By: #### Susie AARON, 39589-2 #### [facility] ([id number]) [address], [address] [place] [address] IMMUNE PROFILE INTERP SEE SEPARATE REPORT Normal [facility] Comment on above: Performed By: #### Susie AARON, 87154-1 #### [facility] ([id number]) [address], [address] [place] [address] LDH [Catalytic activity/Vol] on 09-08-2024 LDH 661 U/L High 100-235 [facility] Comment on above: Performed By: #### Susie AARON, 71137-1 #### [facility] ([id number]) [address], [address] [place] [address] LIVER PANELon 09-08-2024 Albumin [Mass/Vol] 3.7 g/dL Normal 3.2-5.[address] [facility] Comment on above: Performed By: #### Susie AARON, 79659-5 #### [facility] ([id number]) [address], [address] [place] [address] ALP [Catalytic activity/Vol] 87 U/L Normal 39-130 [facility] Comment on above: Performed By: #### Susie AARON 43989-3 #### [facility] ([id number]) [address], [address] [place] [address] ALT [Catalytic activity/Vol] 6 U/L Normal 0-40 [facility] Comment on above: Performed By: #### C AGNIESZKA, 00200-3 #### [facility] ([id number]) [address], [address] [place] [address] AST [Catalytic activity/Vol] 24 U/L Normal 0-41 [facility] Comment on above: Performed By: #### C AGNIESZKA, 72540-8 #### [facility] ([id number]) [address], [address] [place] [address] Bilirubin [Mass/Vol] 1.2 mg/dL Normal 0.3-1.2 [facility] Comment on above: Performed By: #### Susie AARON, 70608-8 #### [facility] ([id number]) [address], [address] [place] [address] Bilirubin.direct [Mass/Vol] 0.3 mg/dL Normal 0.0-0.4 [facility] Comment on above: Performed By: #### Susie AARON, 69329-3 #### [facility] ([id number]) [address], [address] [place] [address] Protein [Mass/Vol] 6.8 g/dL Normal 6.0-8.[address] [facility] Comment on above: Performed By: #### C AGNIESZKA, 11360-9 #### [facility] ([id number]) [address], [address] [place] [address] MAGNESIUMon 09-08-2024 Magnesium [Mass/Vol] 1.9 mg/dL Normal 1.8-2.6 [facility] Comment on above: Performed By: #### C BCA, PINR, BMP, 87825-3, 2284-8, 69213-2, LIVR #### [facility] ([id number]) [address], [address] [place] [address] Natriuretic peptide B [Mass/ Vol]on 09-08-2024 Natriuretic peptide B (Bld) [Mass/Vol] 429 pg/mL High <100.0 [facility] Comment on above: Performed By: #### C AGNIESZKA, 37757-6 #### [facility] ([id number]) [address], [address] [place] [address] Nuclear Ab IA Ql (S)on 09-08 BATOOL Screen w/reflex Positive Abnormal NEG [facility] Comment on above: Result Comment: Testing performed using multiplex flow immunoassay. Eleven different antigens associated with systemic autoimmune diseases (dsDNA,Sm,Sm/FIRER MARINE,FIRER MARINE,Chromatin, SSA,SSB,Lena-1,Scl70,Ribo P,Centromere B) are included in this screening test. Performed By: #### Susie AARON, 15535-5 #### [facility] ([id number]) [address] [address] [place] [address] PROTIME AND INRon 09-08-2024 INR Coag (PPP) [Relative time] 1.5 {INR} High 0.8-1.1 [facility] Comment on above: Performed By: #### C BCA, PINR, BMP, 64704-3, 2284-8, 61389-0, LIVR #### [facility] ([id number]) [address], [address] [place] [address] PT Coag (PPP) [Time] 17.0 s High 9.8-13.2 [facility] Comment on above: Performed By: #### C BCA, PINR, BMP, 62501-8, 2284-8, 85421-9, LIVR #### [facility] ([id number]) [address], [address] [place] [address] comment (Bld) [Interp]on 09-08-2024 STAFF REVIEW NOTE Normal [facility] Comment on above: Result Comment: [facility] [address] [place] [address] Clinical Pathology Report Patient Name:PENNY ORDAZ:1960 (Age: 63)Gender:MTaken:09/08/2024Reported:09/12/2024Physician(s):Wendi Lai M.D. ([phone])Copy To: Rec. #:[id number]: #[id number] Final Pathologic Diagnosis PERIPHERAL BLOOD: - Normochromic, [...] Out rxd/09/12/2024Monico Ayala MD Interpretation performed at [facility], [address] [place] [address], License number: [id number]. Clinical History D64.9 BLOOD SMEAR EVALUATION CBC (09/08/2024 0308): WBC = 7.1 X10E9/L; HGB = 7.4 g/dL; HCT = 21.7%; MCV = 92 fL; PLT = 245 X10E9/L Specimen(s) Received Blood Smear Review Fee Codes(s): 1; 19326 Performed By: #### C BCA, PINR, BMP, 80992-5, 2284-8, 69038-4, LIVR #### [facility] ([id number]) [address], [address] [place] [address] Ribonucleoprotein extractabl e nuclear IgG Qn (S)on 09-08-2024 FIRER MARINE ANTIBODY IGG <0.2 Normal <1.0 [facility] Comment on above: Performed By: #### C ASHU, TSHR, 2132-03 #### [facility] ([id number]) [address], [address] [place] [address] SCL-70 extractable nuclear A b Ql (S)on 09-08-2024 SCL 70 ANTIBODY <0.2 Normal <1.0 [facility] Comment on above: Performed By: #### C ASHU, TSHR, 2132-03 #### [facility] ([id number]) [address], [address] [place] [address] SERUM PROTEIN ELECTROPHORESI Son 09-08-2024 Albumin [Mass/Vol] 3.2 g/dL Low 3.4-5.[address] [facility] Comment on above: Performed By: #### Susie AARON, 67164-1 #### [facility] ([id number]) [address], [address] [place] [address] ALPHA 1 GLOBULIN 0.4 g/dL Normal 0.1-0.4 [facility] Comment on above: Performed By: #### Susie AARON, 39810-0 #### [facility] ([id number]) [address], [address] [place] [address] ALPHA 2 GLOBULIN 0.7 g/dL Normal 0.4-1.1 [facility] Comment on above: Performed By: #### Susie AARON, 30485-0 #### [facility] ([id number]) [address], [address] [place] [address] BETA GLOBULIN 0.7 g/dL Normal 0.5-1.2 [facility] Comment on above: Performed By: #### Susie AARON 85923-4 #### [facility] ([id number]) [address], [address] [place] [address] GAMMA GLOBULIN 1.4 g/dL Normal 0.5-1.6 [facility] Comment on above: Performed By: #### Susie AARON, 21088-0 #### [facility] ([id number]) [address], [address] [place] [address] PROT. ELECTROPHORESIS INTERP SEE SEPARATE REPORT Normal [facility] Comment on above: Performed By: #### Susie AARON, 23780-9 #### [facility] ([id number]) [address], [address] [place] [address] Protein [Mass/Vol] 6.3 g/dL Normal 6.0-8.[address] [facility] Comment on above: Performed By: #### Suise AARON, 37718-7 #### [facility] ([id number]) [address], [address] [place] [address] Sjogrens syndrome-A extracta ble nuclear Ab Qn (S)on 09-08-2024 SSA ANTIBODY <0.2 Normal <1.0 [facility] Comment on above: Performed By: #### Susie WAKEFIELD, TSHR, 2132-03 #### [facility] ([id number]) [address], [address] [place] [address] Sjogrens syndrome-B extracta ble nuclear IgG Qn (S)on 09-08-2024 SSB ANTIBODY 4.3 AI High <1.0 [facility] Comment on above: Performed By: #### Susie WAKEFIELD, TSHR, 2132-03 #### [facility] ([id number]) [address], [address] [place] [address] Tavarez extractable nuclear Ab +Ribonucleoprotein extractable nuclear IgG Qn (S)on 09-08-2024 TAVAREZ/FIRER MARINE AB IGG <0.2 Normal <1.0 [facility] Comment on above: Performed By: #### C BC, TSHR, 2132-03 #### [facility] ([id number]) [address] [facility] [place] [address] Tavarez extractable nuclear Ig G Qn (S)on 09-08-2024 ANTI-TAVAREZ AB IGG <0.2 Normal <1.0 [facility] Comment on above: Performed By: #### C BC, TSHR, 2132-03 #### [facility] ([id number]) [address] [facility] [facility] [place] [address] Surgical Pathologyon 025 Surgical Pathology Normal [facility] Comment on above: Result Comment: [facility] [address] [place], [place] [address] Flow Cytometry Patient Name:PENNY ORDAZAccession #:[id number]. Rec. #:[id number]:[facility] HospitalTaken:09/08/2024DOB:1960 (Age: 63)Location:[facility] GEN 6 ACUTE J238Hansvgkq:09/08/2024Gender: Alice. Type:ToledoReported:Priority:RBilling #:[id number] Class:TT Special Procedure OnlyPhysician(s): Jose Umanzor MD Chang [...] CD19, CD33, CD34, CD45, CD117, CD123, CD138, [place], and Lambda. Immunophenotyping Comment: Immunophenotyping has been used in this diagnostic evaluation. This test was developed and its performance characteristics determined by the [facility] Department. It has not been [...] primary myelofibrosis (see S25???8350). Electronically Signed Out mls/09/10/2024 Arcenio Alonzo MD TOTAL PROTEINon 09-08-2024 Protein [Mass/Vol] 6.6 g/dL Normal 6.0-8.[address] [facility] Comment on above: Performed By: #### C MP, 72490-3 #### [facility] ([id number]) [address] [place] [address], [address] [place] [address] CBC AND AUTO DIFFon 09-07-19 25 Band form neutrophils/100 WBC (Bld) 4.0 % Normal [facility] Comment on above: Performed By: #### C MP, CBCA, PINR, 83539-7 #### [facility] ([id number]) [address] [place] [address], [place] [address] #### 4679-7, FEPR, 2276-4 #### [facility] ([id number]) [address], [address] [place] [address] Erythrocyte distribution width (RBC) [Ratio] 24.2 % High 11.5-15.0 [facility] Comment on above: Performed By: #### C MP, CBCA, PINR, 37537-6 #### [facility] ([id number]) [address] [place] [address] #### 4679-7, FEPR, 2276-4 #### [facility] ([id number]) [address], [address] [place] [address] Hematocrit (Bld) [Volume fraction] 16.4 % Low 39-49 [facility] Comment on above: Performed By: #### C MP, CBCA, PINR, 47427-2 #### [facility] ([id number]) [address] [place] [address] #### 4679-7, FEPR, 2276-4 #### [facility] ([id number]) [address], [address] [place] [address] Hemoglobin (Bld) [Mass/Vol] 5.3 g/dL Critically low 13.0-17.0 [facility] Comment on above: Performed By: #### C MP, CBCA, PINR, 11071-6 #### [facility] ([id number]) [address] [place] [address] #### 4679-7, FEPR, 2276-4 #### [facility] ([id number]) [address], [address] [place] [address] Lymphocytes (Bld) [#/Vol] 0.6 10*3/uL Low 1.0-3.5 [facility] Comment on above: Performed By: #### C MP, CBCA, PINR, 42813-5 #### [facility] ([id number]) [address] [place] [address] #### 4679-7, FEPR, 2276-4 #### [facility] ([id number]) [address] [facility] [place] [address] Lymphocytes/100 WBC (Bld) 9.0 % Normal [facility] Comment on above: Performed By: #### C MP, CBCA, PINR, 48040-8 #### [facility] ([id number]) [address] [place] [address] #### 4679-7, FEPR, 2276-4 #### [facility] ([id number]) [address] [facility], [address] [place] [address] MCH (RBC) [Entitic mass] 31.3 pg Normal 27-34 [facility] Comment on above: Performed By: #### C MP, CBCA, PINR, 55188-0 #### [facility] ([id number]) [address] [place] [address] #### 4679-7, FEPR, 2276-4 #### [facility] ([id number]) [address] [facility], [address] [place] [address] MCHC (RBC) [Mass/Vol] 32.2 g/dL Normal 32-36 [facility] Comment on above: Performed By: #### C MP, CBCA, PINR, 33754-7 #### [facility] ([id number]) [address] [place] [address] #### 4679-7, FEPR, 2276-4 #### [facility] ([id number]) [address], [address] [place] [address] MCV (RBC) [Entitic vol] 97 fL Normal 80-100 P [facility] Comment on above: Performed By: #### C MP, CBCA, PINR, 11088-9 #### [facility] ([id number]) [address] [place] [address] #### 4679-7, FEPR, 2276-4 #### [facility] ([id number]) [address], [address] [place] [address] Monocytes (Bld) [#/Vol] 0.5 10*3/uL Normal 0-0.9 [facility] Comment on above: Performed By: #### C MP, CBCA, PINR, 32102-4 #### [facility] ([id number]) [address] [place] [address] #### 4679-7, FEPR, 2276-4 #### [facility] ([id number]) [address], [address] [place] [address] Monocytes/100 WBC (Bld) 7.0 % Normal P [facility] Comment on above: Performed By: #### C MP, CBCA, PINR, 01181-5 #### [facility] ([id number]) [address] [place] [address] #### 4679-7, FEPR, 2276-4 #### [facility] ([id number]) [address], [address] [place] [address] MYELOCYTE 1.0 % Normal [facility] Comment on above: Performed By: #### C MP, CBCA, PINR, 04790-1 #### [facility] ([id number]) [address] [place] [address] #### 4679-7, FEPR, 2276-4 #### [facility] ([id number]) [address], [address] [place] [address] Neutrophils (Bld) [#/Vol] 6.0 10*3/uL Normal 1.5-6.6 [facility] Comment on above: Performed By: #### C MP, CBCA, PINR, 35778-4 #### [facility] ([id number]) [address] [place] [address] #### 4679-7, FEPR, 2276-4 #### [facility] ([id number]) [address], [address] [place] [address] Platelet mean volume (Bld) [Entitic vol] 9.2 fL Normal 7-12 [facility] Comment on above: Performed By: #### C MP, CBCA, PINR, 71316-9 #### [facility] ([id number]) [address] [place] [address] #### 4679-7, FEPR, 2276-4 #### [facility] ([id number]) [address], [address] [place] [address] Platelets (Bld) [#/Vol] 349 10*3/uL Normal 150-450 [facility] Comment on above: Performed By: #### C MP, CBCA, PINR, 45659-5 #### [facility] ([id number]) [address] [place] [address] #### 4679-7, FEPR, 2276-4 #### [facility] ([id number]) [address], [address] [place] [address] RBC COUNT 1.69 X10E12/L Low 4.10-5.70 [facility] Comment on above: Performed By: #### C MP, CBCA, PINR, [id number] #### [facility] ([id number]) [address] [place] [id number] #### 4679-7, FEPR, 2276-4 #### [facility] ([id number]) [address], [address] [place] [address] RBC morphology finding Nom (Bld) REVIEWED Normal [facility] Comment on above: Performed By: #### C MP, CBCA, PINR, [id number] #### [facility] ([id number]) [address] [place] [address] #### 4679-7, FEPR, 2276-4 #### [facility] ([id number]) [address] [facility] [place] [address] SEG NEUTROPHIL 79.0 % Normal [facility] Comment on above: Performed By: #### C MP, CBCA, PINR, [id number] #### [facility] ([id number]) [address] [place] [address] #### 4679-7, FEPR, 6-4 #### [facility] ([id number]) [address], [address] [place] [address] WBC (Bld) [#/Vol] 7.2 10*3/uL Normal 4.0-11.0 [facility] Comment on above: Performed By: #### C MP, CBCA, PINR, [id number] #### [facility] ([id number]) [address] [place] [address] #### 4679-7, FEPR, 6-4 #### [facility] ([id number]) [address], [address] [place] [address] COMPREHENSIVE METABOLIC PANE John Paul 09-07-2024 Albumin [Mass/Vol] 3.5 g/dL Normal 3.2-5.3 [facility] Comment on above: Performed By: #### C MP, CBCA, PINR, [id number] #### [facility] ([id number]) [address] [place] [address] #### 4679-7, FEPR, 2276-4 #### [facility] ([id number]) [address] [facility], [address] [place] [address] ALP [Catalytic activity/Vol] 84 U/L Normal 39-130 [facility] Comment on above: Performed By: #### C MP, CBCA, PINR, 47558-0 #### [facility] ([id number]) [address] [place] [address] 98781 #### 4679-7, FEPR, 2276-4 #### [facility] ([id number]) [address] [facility], [address] [place] [address] ALT [Catalytic activity/Vol] 12 U/L Normal 0-40 [facility] Comment on above: Performed By: #### C MP, CBCA, PINR, 77941-5 #### [facility] ([id number]) [address] [place] [address] 95462 #### 4679-7, FEPR, 2276-4 #### [facility] ([id number]) [facility], [address] [place] [address] Anion gap [Moles/Vol] 8 mmol/L Normal 5-15 [facility] Comment on above: Performed By: #### C MP, CBCA, PINR, 86203-7 #### [facility] ([id number]) [address] [place] [address] 17817 #### 4679-7, FEPR, 2276-4 #### [facility] ([id number]) Critical access hospital [facility], [address] [place] [address] AST [Catalytic activity/Vol] 22 U/L Normal 0-41 [facility] Comment on above: Performed By: #### C MP, CBCA, PINR, 89876-5 #### [facility] ([id number]) [address] [place] [address] [place] [address] #### 4679-7, FEPR, 2276-4 #### [facility] ([id number]) [address], [address] [place] [address] Bilirubin [Mass/Vol] 0.9 mg/dL Normal 0.3-1.2 [facility] Comment on above: Performed By: #### C MP, CBCA, PINR, 26323-1 #### [facility] ([id number]) [address] [place] [address] 25729 #### 4679-7, FEPR, 2276-4 #### [facility] ([id number]) [address], [address] [place] [address] Calcium [Mass/Vol] 8.1 mg/dL Low 8.5-10.5 [facility] Comment on above: Performed By: #### C MP, CBCA, PINR, 48603-0 #### [facility] ([id number]) [address] [place] [address] 98361 #### 4679-7, FEPR, 2276-4 #### [facility] ([id number]) [address], [address] [place] [address] Chloride [Moles/Vol] 104 mmol/L Normal 98-109 [facility] Comment on above: Performed By: #### C MP, CBCA, PINR, 76792-9 #### [facility] ([id number]) [address] [place] [address] 65836 #### 4679-7, FEPR, 2276-4 #### [facility] ([id number]) [address], [address] [place] [address] CO2 [Moles/Vol] 21 mmol/L Low 22-32 [facility] Comment on above: Performed By: #### C MP, CBCA, PINR, 71544-5 #### [facility] ([id number]) [address] [place] [address] 24048 #### 4679-7, FEPR, 2276-4 #### [facility] ([id number]) [address], [address] [place] [address] Creatinine [Mass/Vol] 0.71 mg/dL Normal 0.70-1.20 [facility] Comment on above: Result Comment: METH OD TRACEABLE TO IDMS STANDARD Performed By: #### C MP, CBCA, PINR, 42704-9 #### [facility] ([id number]) [address] [place] [address] 77900 #### 4679-7, FEPR, 2276-4 #### [facility] ([id number]) [address], [address] [place] [address] eGFR (CKD-EPI) NON-RACE DEPENDENT >90 Normal >59 [facility] Comment on above: Result Comment: Reported eGFR is based on the CKD-EPI 2020 equation that does not use a race coefficient. Performed By: #### C MP, CBCA, PINR, 95473-2 #### [facility] ([id number]) [address] [place] [address] 46945 #### 4679-7, FEPR, 2276-4 #### [facility] ([id number]) [address], [address] [place] [address] Glucose [Mass/Vol] 104 mg/dL High 65-99 [facility] Comment on above: Performed By: #### C MP, CBCA, PINR, 73522-5 #### [facility] ([id number]) [address] [place] [address] 46621 #### 4679-7, FEPR, 2276-4 #### [facility] ([id number]) [address], [address] [place] [address] Potassium [Moles/Vol] 4.1 mmol/L Normal 3.5-5.0 [facility] Comment on above: Performed By: #### C MP, CBCA, PINR, 91429-1 #### [facility] ([id number]) [address] [place] [address] 48703 #### 4679-7, FEPR, 2276-4 #### [facility] ([id number]) [address], [address] [place] [address] Protein [Mass/Vol] 6.9 g/dL Normal 6.0-8.0 [facility] Comment on above: Performed By: #### C MP, CBCA, PINR, 02309-4 #### [facility] ([id number]) [address] [place] [address] 73952 #### 4679-7, FEPR, 6-4 #### [facility] ([id number]) [address], [address] [place] [address] Sodium [Moles/Vol] 133 mmol/L Low 134-146 [facility] Comment on above: Performed By: #### C MP, CBCA, PINR, 13514-5 #### [facility] ([id number]) [address] [place] [address] 70550 #### 4679-7, FEPR, 6-4 #### [facility] ([id number]) [address], [address] [place] [address] Urea nitrogen [Mass/Vol] 12 mg/dL Normal 5-27 [facility] Comment on above: Performed By: #### C MP, CBCA, PINR, 41434-4 #### [facility] ([id number]) [address] [place] [address] 46831 #### 4679-7, FEPR, 6-4 #### [facility] ([id number]) [address] [place] [address] CT ABDOMEN AND PELVIS W CONT on [...] Jhonny East DO on 09/07/2024 10:00 AM IConor MD have personally reviewed the image(s) and agree with and/or edited the report Finalized by Conor Franklin MD on 09/07/2024 10:11 AM Normal [facility] FERRITINon 09-07-2024 Ferritin [Mass/Vol] 292 ng/mL Normal 24-336 [facility] Comment on above: Performed By: #### C MP, CBCA, PINR, 09114-8 #### [facility] ([id number]) [address] [place] [address] 85033 #### 4679-7, FEPR, 2276-4 #### [facility] ([id number]) [address], [address] [place] [address] HEMOGLOBINon 09-07-2024 Hemoglobin (Bld) [Mass/Vol] 6.4 g/dL Critically low 13.0-17.0 [facility] Comment on above: Performed By: #### C MP, CBCA, PINR, 80061-2 #### [facility] ([id number]) [address] [place] [address] 12890 #### 4679-7, FEPR, 2276-4 #### [facility] ([id number]) [address], [address] [place] [address] HGBon 09-07-2024 Hematocrit (Bld) [Volume fraction] 21.7 % Low 39-49 [facility] Comment on above: Performed By: #### C MP, CBCA, PINR, 35134-2 #### [facility] ([id number]) [address] [place] [address] 54921 #### 4679-7, FEPR, 2276-4 #### [facility] ([id number]) [address], [address] [place] [address] Hemoglobin (Bld) [Mass/Vol] 7.3 g/dL Low 13.0-17.0 [facility] Comment on above: Performed By: #### C MP, CBCA, PINR, 09265-0 #### [facility] ([id number]) [address] [place] [address] 23870 #### 4679-7, FEPR, 2276-4 #### [facility] ([id number]) [address], [address] [place] [address] Hematocrit Auto (Bld) [Volum e fraction]on 09-07-2024 Hematocrit (Bld) [Volume fraction] 19.2 % Low 39-49 [facility] Comment on above: Performed By: #### 4 544-3, 718-7 #### [facility] ([id number]) [address] [place] [address] IRON PROFILEon 09-07-2024 Iron [Mass/Vol] 112 ug/dL Normal 50-212 [facility] Comment on above: Performed By: #### C MP, CBCA, PINR, 24114-5 #### [facility] ([id number]) [address] [place] [address] 63066 #### 4679-7, FEPR, 2276-4 #### [facility] ([id number]) [address], [address] [place] [address] IRON BINDING 294 ug/dL Normal 250-425 [facility] Comment on above: Performed By: #### C MP, CBCA, PINR, 08222-1 #### [facility] ([id number]) [address] [place] [address] 41583 #### 4679-7, FEPR, 2276-4 #### [facility] ([id number]) [address], [address] [place] [address] IRON SATURATION 38 % SATURATION Normal 20-50 [facility] Comment on above: Performed By: #### C MP, CBCA, PINR, 70125-2 #### [facility] ([id number]) [address] [place] [address] 23678 #### 4679-7, FEPR, 2276-4 #### [facility] ([id number]) [address], [address] [place] [address] PROTIME AND INRon 09-07-2024 INR Coag (PPP) [Relative time] 1.5 {INR} High 0.8-1.1 [facility] Comment on above: Performed By: #### C MP, CBCA, PINR, 26344-2 #### [facility] ([id number]) [address] [place] [address] 61559 #### 4679-7, FEPR, 2276-4 #### [facility] ([id number]) [address], [address] [place] [address] PT Coag (PPP) [Time] 17.0 s High 9.8-13.2 [facility] Comment on above: Result Comment: NEW REFERENCE RANGE Performed By: #### C MP, CBCA, PINR, 70350-3 #### [facility] ([id number]) [address] [place] [address] 62822 #### 4679-7, FEPR, 2276-4 #### [facility] ([id number]) [address], [address] [place] [address] Reticulocytes/100 RBC (Bld)o n 09-07-2024 RETICULOCYTE COUNT 2.5 % High 0.4-2.2 [facility] Comment on above: Performed By: #### C MP, CBCA, PINR, 90419-4 #### [facility] ([id number]) [address] [place] [address] 71523 #### 4679-7, FEPR, 2276-4 #### [facility] ([id number]) [address], [address] [place] [address] XR CHEST 1 VWon 09-07-2024 XR CHEST [...] Escalante MD on 09/07/2024 10:14 AM Normal [facility] aPTT Coag (PPP) [Time]on aPTT Coag (Bld) [Time] 33 s Normal 26-37 [facility] Comment on above: Result Comment: NEW REFERENCE RANGE Performed By: #### C MP, CBCA, PINR, 24204-3 #### [facility] ([id number]) [address] [place] [address], [place] [address] #### 4679-7, FEPR, 2276-4 #### [facility] ([id number]) [address], [address] [place] [address] COMPLETE BLOOD COUNTon 09-06 Erythrocyte distribution width (RBC) [Ratio] 24.0 % High 11.5-15.0 [facility] Comment on above: Performed By: #### C BC, TSHR, 9 #### [facility] ([id number]) [address], [address] [place] [address] Hematocrit (Bld) [Volume fraction] 17.4 % Low 39-49 [facility] Comment on above: Performed By: #### C BC, TSHR, 2132-03 #### [facility] ([id number]) [address], [address] [place] [address] Hemoglobin (Bld) [Mass/Vol] 5.4 g/dL Critically low 13.0-17.0 [facility] Comment on above: Performed By: #### C BC, TSHR, 2132-03 #### [facility] ([id number]) [address], [facility] [address] [place] [address] MCH (RBC) [Entitic mass] 31.2 pg Normal 27-34 [facility] Comment on above: Performed By: #### JAIME SUTHERLAND, 2132-03 #### [facility] ([id number]) [address], [address] [place] [address] MCHC (RBC) [Mass/Vol] 30.9 g/dL Low 32-36 [facility] Comment on above: Performed By: #### JAIME SUTHERLAND, 2132-03 #### [facility] ([id number]) [address], [address] [place] [address] MCV (RBC) [Entitic vol] 101 fL High 80-100 [facility] Comment on above: Performed By: #### JAIME SUTHERLAND, 2132-03 #### [facility] ([id number]) [address], [address] [place] [address] Platelet mean volume (Bld) [Entitic vol] 9.9 fL Normal 7-12 [facility] Comment on above: Performed By: #### JAIME SUTHERLAND, 2132-03 #### [facility] ([id number]) [address], [address] [place] [address] Platelets (Bld) [#/Vol] 356 10*3/uL Normal 150-450 [facility] Comment on above: Performed By: #### JAIME SUTHERLAND, 2132-03 #### [facility] ([id number]) [address], [address] [place] [address] RBC COUNT 1.73 X10E12/L Low 4.10-5.70 [facility] Comment on above: Performed By: #### JAIME SUTHERLAND, 2132-03 #### [facility] ([id number]) [address], [address] [place] [address] WBC (Bld) [#/Vol] 6.2 10*3/uL Normal 4.0-11.[address] [facility] Comment on above: Performed By: #### Susie WAKEFIELD, TSHR, 2132-03 #### [facility] ([id number]) [address], [address] [place] [address] TSH WITH REFLEXon 09-06-2024 TSH 3.61 uIU/mL Normal 0.49-4.67 [facility] Comment on above: Performed By: #### Susie WAKEFIELD, TSHR, 2132-03 #### [facility] ([id number]) [address], [address] [place] [address] VITAMIN B12on 09-06-2024 Cobalamin (Vitamin B12) [Mass/Vol] 547 pg/mL Normal 180-914 [facility] Comment on above: Performed By: #### Susie WAKEFIELD TSHR, 2132-03 #### [facility] ([id number]) [address], [address] [place] [address] COMPREHENSIVE METABOLIC PANE John Paul 06-25-2024 Albumin [Mass/Vol] 4.3 g/dL Normal 3.2-5.[address] [facility] Comment on above: Performed By: #### Susie AARON, 63587-4 #### [facility] ([id number]) [address], [address] [place] [address] ALP [Catalytic activity/Vol] 81 U/L Normal 39-130 [facility] Comment on above: Performed By: #### Susie AARON, 95213-9 #### [facility] ([id number]) [address], [address] [place] [address] ALT [Catalytic activity/Vol] 15 U/L Normal 0-40 [facility] Comment on above: Performed By: #### Susie AARON, 20256-2 #### [facility] ([id number]) [address], [address] [place] [address] Anion gap [Moles/Vol] 8 mmol/L Normal 5-15 [facility] Comment on above: Performed By: #### Susie AARON, 74685-1 #### [facility] ([id number]) [address], [address] [place] [address] AST [Catalytic activity/Vol] 19 U/L Normal 0-41 [facility] Comment on above: Performed By: #### Susie AARON, 52573-5 #### [facility] ([id number]) [address], [address] [place] [address] Bilirubin [Mass/Vol] 1.1 mg/dL Normal 0.3-1.2 [facility] Comment on above: Performed By: #### Susie AARON, 50074-6 #### [facility] ([id number]) [address] [place] [address] Calcium [Mass/Vol] 9.1 mg/dL Normal 8.5-10.[address] [facility] Comment on above: Performed By: #### Susie AARON, 09149-8 #### [facility] ([id number]) [address] [place] [address] Chloride [Moles/Vol] 100 mmol/L Normal 98-109 [facility] Comment on above: Performed By: #### Susie AARON, 38937-0 #### [facility] ([id number]) [address], [address] [place] [address] CO2 [Moles/Vol] 26 mmol/L Normal 22-32 [facility] Comment on above: Performed By: #### Susie AARON, 48400-2 #### [facility] ([id number]) [address], [address] [place] [address] Creatinine [Mass/Vol] 0.66 mg/dL Normal 0.60-1.30 [facility] Comment on above: Result Comment: METH OD TRACEABLE TO IDMS STANDARD Performed By: #### Susie AARON, 36106-0 #### [facility] ([id number]) [address], [address] [place] [address] eGFR (CKD-EPI) NON-RACE DEPENDENT >90 Normal >59 [facility] Comment on above: Result Comment: Reported eGFR is based on the CKD-EPI 2020 equation that does not use a race coefficient. Performed By: #### Susie AARON, 51925-5 #### [facility] ([id number]) [address] [place] [address] Glucose [Mass/Vol] 98 mg/dL Normal 65-[address] [facility] Comment on above: Performed By: #### Susie AARON, 01347-9 #### [facility] ([id number]) [address], [address] [place] [address] Potassium [Moles/Vol] 5.0 mmol/L Normal 3.5-5.0 [facility] Comment on above: Performed By: #### Susie AARON, 73869-0 #### [facility] ([id number]) [address], [address] [place] [address] Protein [Mass/Vol] 7.6 g/dL Normal 6.0-8.[address] [facility] Comment on above: Performed By: #### Susie AARON, 03844-5 #### [facility] ([id number]) [address], [address] [place] [address] Sodium [Moles/Vol] 134 mmol/L Normal 134-[address] [facility] Comment on above: Performed By: #### Susie AARON, 36196-4 #### [facility] ([id number]) [address], [address] [place] [address] Urea nitrogen [Mass/Vol] 10 mg/dL Normal 5-27 [facility] Comment on above: Performed By: #### Susie AARON, 91785-5 #### [facility] ([id number]) [address], [address] [place] [address] Lipid 1996 panelon 4 Cholesterol [Mass/Vol] 74 mg/dL Low 150-200 [facility] Comment on above: Performed By: #### Susie AARON, 64732-4 #### [facility] ([id number]) [address], [facility] [address] [place] [address] Cholesterol in HDL [Mass/Vol] 18 mg/dL Low >39 [facility] Comment on above: Result Comment: HDL <40 mg/dL - High Risk HDL > or = 40mg/dL- Desirable HDL >60 mg/dL - Negative Risk Performed By: #### Susie AARON, 33162-0 #### [facility] ([id number]) [address], [facility] [address] [place] [address] Cholesterol in LDL [Mass/Vol] 43 mg/dL Normal <130 [facility] Comment on above: Result Comment: LDL <100 mg/dL - Desirable LDL >160 mg/dL - High Risk Performed By: #### Susie AARON, 02606-4 #### [facility] ([id number]) [address] [place] [address] Cholesterol in VLDL [Mass/Vol] 13 mg/dL Normal 0-30 [facility] Comment on above: Performed By: #### Susie AARON, 43851-0 #### [facility] ([id number]) [address], [address] [place] [address] CHOLESTEROL:HDL 4.1 Normal 1.0-5.0 [facility] Comment on above: Performed By: #### Susie AARON, 08452-0 #### [facility] ([id number]) [address], [address] [place] [address] Triglyceride [Mass/Vol] 64 mg/dL Normal 27-150 [facility] Comment on above: Performed By: #### C , 58615-2 #### [facility] ([id number]) [address], [address] [place] [address] CBC (INCLUDES DIFF/PLT)on Basophils (Bld) [#/Vol] 0 10*3/uL Normal 0-200 [facility] Comment on above: Performed By: #### 6 399 #### [facility] [place] [address] Pedorthist: Horace Vital MD Basophils/100 WBC (Bld) 0 % Normal [facility] Comment on above: Performed By: #### 6 399 #### [facility] [place] [address] Pedorthist: Horace Vital MD COMMENT(S) Normal [facility] Comment on above: Result Comment: The smear has been manually reviewed and the manual differential has been reported. Performed By: #### 6 399 #### [facility] [place] [address] Pedorthist: Horace Vital MD Eosinophils (Bld) [#/Vol] 0.132 10*3/uL Normal 15-500 [facility] Comment on above: Performed By: #### 6 399 #### [facility] [place] [address] Pedorthist: Horace Vital MD Eosinophils/100 WBC (Bld) 3 % Normal [facility] Comment on above: Performed By: #### 6 399 #### [facility] [place] [address] Pedorthist: Horace Vital MD Erythrocyte distribution width (RBC) [Ratio] 14.6 % Normal 11.0-15.0 [facility] Comment on above: Performed By: #### 6 399 #### [facility] [place] [address] Pedorthist: Horace Vital MD Hematocrit (Bld) [Volume fraction] 40.2 % Normal 38.5-50.0 [facility] Comment on above: Performed By: #### 6 399 #### [facility] [place] [address] [employer]ist: Horace Vital MD Hemoglobin (Bld) [Mass/Vol] 13.6 g/dL Normal 13.2-17.1 [facility] Comment on above: Performed By: #### 6 399 #### [facility] [place] [address] Pedorthist: Horace Vital MD Lymphocytes (Bld) [#/Vol] 1.276 10*3/uL Normal 850-3900 [facility] Comment on above: Performed By: #### 6 399 #### [facility] [place] [address] Pedorthist: Horace Vital MD Lymphocytes/100 WBC (Bld) 29 % Normal [facility] Comment on above: Performed By: #### 6 399 #### [facility] [place] [address] Pedorthist: Horace Vital MD MCH (RBC) [Entitic mass] 32.7 pg Normal 27.0-33.0 [facility] Comment on above: Performed By: #### 6 399 #### [facility] [place] [address] Ped[employer]ist: Horace Vital MD MCHC (RBC) [Mass/Vol] 33.8 g/dL Normal 32.0-36.[address] [facility] Comment on above: Performed By: #### 6 399 #### [facility] [place] [address] Pedorthist: Horace Vital MD MCV (RBC) [Entitic vol] 96.6 fL Normal 80.0-100.0 [facility] Comment on above: Performed By: #### 6 399 #### [facility] [place] [address] Pedorthist: Horace Vital MD Monocytes (Bld) [#/Vol] 0.748 10*3/uL Normal 200-950 [facility] Comment on above: Performed By: #### 6 399 #### [facility] [place] [address] Pedorthist: Horace Vital MD Monocytes/100 WBC (Bld) 17 % Normal [facility] Comment on above: Performed By: #### 6 399 #### [facility] [place] [address] Pedorthist: Horace Vital MD Neutrophils (Bld) [#/Vol] 2.244 10*3/uL Normal 0398-9197 [facility] Comment on above: Performed By: #### 6 399 #### [facility] [place] [address] Pedorthist: Horace Vital MD Neutrophils/100 WBC (Bld) 51 % Normal [facility] Comment on above: Performed By: #### 6 399 #### [facility] [place] [address] Pedorthist: Horace Vital MD Platelet mean volume (Bld) [Entitic vol] 11.6 fL Normal 7.5-12.5 [facility] Comment on above: Performed By: #### 6 399 #### [facility] [place] [address] Pedorthist: Horace Vital MD Platelets (Bld) [#/Vol] 230 10*3/uL Normal 140-400 [facility] Comment on above: Performed By: #### 6 399 #### [facility] [place] [address] Pedorthist: Horace Vital MD RBC (Bld) [#/Vol] 4.16 10*6/uL Low 4.20-5.80 [facility] Comment on above: Performed By: #### 6 399 #### [facility] [address], [address] [place] [address] Pedorthist: Horace Vital MD WBC (Bld) [#/Vol] 4.4 10*3/uL Normal 3.8-10.8 [facility] Comment on above: Performed By: #### 6 399 #### [facility] [place] [address], [address] [place] [address] Pedorthist: Horace Vital MD TIBIA FIBULA RIGHTon 018 TIBIA FIBULA RIGHT [facility] [address] [place], [place] [id number] P atient Name: PENNY ORDAZ : 1960Sex: MAge: Race: WhiteMRN: [id number]. Location: 84Patient Status: Date: 12/14/2017 9:00:00 AMCompleted Date: 12/14/2017 09:01 AMRequesting Provider: RASHEEDA GORDILLO Attending Provider: Report Copy To: Signs & Symptoms: M96.671 Fx tib/fib fol insrt ortho implnt/prosth/bone plt, right leg M19Covhubs: AthenaComments: , , Views (X-RAY, TIBIA AND FIBULA): AP, Lateral , , , Ordering Provider - RASHEEDA GORDILLO , Exam: TIBIA FIBULA RIGHTAccession #: [id number] ======TIBIA FIBULA RIGHT 12/14/2017 9:01 AM EDT [...] conspicuous Electronically signed by:Lauren Clemente. Transcribed by: [email or web address], User Resident: Electronically Signed by: LAUREN CLEMENTE @ 12/14/2017 12:06 PM Normal [facility] Comment on above: Order Comment: No: D o not add to previous draw ANKLE RIGHT 3 [facility] 10-20-19 18 ANKLE RIGHT 3 [facility] [address] [place] [address] P atient Name: PENNY ORDAZ : 1960Sex: MAge: Race: WhiteMRN: [id number]. Location: 84Patient Status: Date: 10/19/2017 9:55:00 AMCompleted Date: 10/19/2017 10:07 AMRequesting Provider: RASHEEDA GORDILLO Attending Provider: Report Copy To: Signs & Symptoms: S82.391D Oth fx lower end of r tibia, subs for clos fx w routn heal N57Rwqwrrl: AthenaComments: , , Views (X-RAY, ANKLE): AP, Lateral, Mortise , , , Ordering Provider - RASHEEDA GORDILLO , Exam: ANKLE RIGHT 3 VWSAccession #: [id number] ======ANKLE RIGHT 3 VWS, TIBIA FIBULA RIGHT [...] AP,Lateral and Oblique views were obtained. (accession [id number]), AP(PA) and Lateral views were obtained. (accession [id number]) COMPARISON: October 19, 2017 FINDINGS: Soft tissues:Unchanged Bones:Unchanged Joints:Unchanged IMPRESSION: Healing lower leg injury with jil fixing distal midshaft tibial fracture in good alignment and no hardware securing healing proximal fibular fracture Electronically signed by:Lauren Clemente. Transcribed by: [email or web address], User Resident: Electronically Signed by: LAUREN CLEMENTE @ 10/19/2017 10:33 AM Normal [facility] Comment on above: Order Comment: No: D o not add to previous draw TIBIA FIBULA RIGHTon 018 TIBIA FIBULA RIGHT [facility] [address] [place] [address] P atient Name: PENNY ORDAZ : 1960Sex: MAge: Race: WhiteMRN: [id number]. Location: 84Patient Status: Date: 10/19/2017 9:55:00 AMCompleted Date: 10/19/2017 10:07 AMRequesting Provider: RASHEEDA GORDILLO Attending Provider: Report Copy To: Signs & Symptoms: M96.671 Fx tib/fib fol insrt ortho implnt/prosth/bone plt, right leg T73Ylkwqhu: AthenaComments: , , Views (X-RAY, TIBIA AND FIBULA): AP, Lateral , , , Ordering Provider - RASHEEDA GORDILLO , Exam: TIBIA FIBULA RIGHTAccession #: [id number] ======ANKLE RIGHT 3 VWS, TIBIA FIBULA RIGHT [...] AP,Lateral and Oblique views were obtained. (accession [id number]), AP(PA) and Lateral views were obtained. (accession [id number]) COMPARISON: October 19, 2017 FINDINGS: Soft tissues:Unchanged Bones:Unchanged Joints:Unchanged IMPRESSION: Healing lower leg injury with jil fixing distal midshaft tibial fracture in good alignment and no hardware securing healing proximal fibular fracture Electronically signed by:Lauren Clemente. Transcribed by: [id number], User Resident: Electronically Signed by: LAUREN CLEMENTE @ 10/19/2017 10:33 AM Normal [facility] Comment on above: Order Comment: No: D o not add to previous draw ANKLE RIGHT 3 Son 08-31-19 18 ANKLE RIGHT 3 S [facility] Center[facility] of Xbbbfvsxu[address] [place] [address] P atient Name: PENNY ORDAZ : 1960Sex: MAge: Race: WhiteMRN: [id number]. Location: 84Patient Status: Date: 08/31/2017 11:10:00 AMCompleted Date: 08/31/2017 11:32 AMRequesting Provider: RASHEEDA GORDILLO Attending Provider: Report Copy To: Signs & Symptoms: S82.391D Oth fx lower end of r tibia, subs for clos fx w routn heal J00Tbztcfy: AthenaComments: , , , Ordering Provider - RASHEEDA GORDILLO , Exam: ANKLE RIGHT 3 VWSAccession #: [id number] ======TIBIA FIBULA RIGHT, ANKLE RIGHT 3 S 08/31/2017 11:32 AM EST SIGNS AND SYMPTOMS: [...] AP(PA) and Lateral views were obtained. (accession [id number]), AP,Lateral and Oblique views were obtained. (accession [id number]) COMPARISON: August 03, 2017 FINDINGS: Soft tissues:No [...] tibia Electronically signed by:Lauren Clemente. Transcribed by: [email or web address], User Resident: Electronically Signed by: LAUREN CLEMENTE @ 08/31/2017 11:37 AM Normal [facility] Comment on above: Order Comment: No: D o not add to previous draw TIBIA FIBULA RIGHTon 018 TIBIA FIBULA RIGHT [facility] CenterDepartment [facility] Zhmbzppim[address] [place] [address] P atient Name: PENNY ORDAZ : 1960Sex: MAge: Race: WhiteMRN: [id number]. Location: 84Patient Status: Date: 08/31/2017 11:10:00 AMCompleted Date: 08/31/2017 11:32 AMRequesting Provider: RASHEEDA GORDILLO Attending Provider: Report Copy To: Signs & Symptoms: M96.671 Fx tib/fib fol insrt ortho implnt/prosth/bone plt, right leg M28Mlgtaja: AthenaComments: , , Views (X-RAY, TIBIA AND FIBULA): AP, Lateral , , , Ordering Provider - RASHEEDA GORDILLO , Exam: TIBIA FIBULA RIGHTAccession #: [id number] ======TIBIA FIBULA RIGHT, ANKLE RIGHT 3 VWS 08/31/2017 11:32 AM EST SIGNS AND SYMPTOMS: M96.671 Fx tib/fib fol insrt ortho implnt/prosth/bone plt, right leg I10 TECHNOLOGIST COMMENTS: Patient states post fall x 07/14/2017 ortho follow up of right tibia and right ankle QUESTION FOR THE RADIOLOGIST: , , Views (X-RAY, TIBIA AND FIBULA): AP, Lateral , , , Ordering Provider - RASHEEDA GORDILOL , PROTOCOL: AP(PA) and Lateral views were obtained. (accession [id number]), AP,Lateral and Oblique views were obtained. (accession [id number]) COMPARISON: August 03, 2017 FINDINGS: Soft tissues:No [...] tibia Electronically signed by:Lauren Clemente. Transcribed by: [id number], User Resident: Electronically Signed by: LAUREN CLEMENTE @ 08/31/2017 11:37 AM Normal [facility] Comment on above: Order Comment: No: D o not add to previous draw TIBIA FIBULA RIGHTon 018 TIBIA FIBULA RIGHT [facility] CenterDepartment of Imqljmxmb[address] [place] [address] P atient Name: PENNY ORDAZ : 1960Sex: MAge: Race: WhiteMRN: [id number]. Location: 84Patient Status: Date: 08/03/2017 10:05:00 AMCompleted Date: 08/03/2017 10:04 AMRequesting Provider: RASHEEDA GORDILLO Attending Provider: Report Copy To: Signs & Symptoms: M96.671 Fx tib/fib fol insrt ortho implnt/prosth/bone plt, right leg J06Xvcgnbk: AthenaComments: , , Views (X-RAY, TIBIA AND FIBULA): AP, Lateral, Oblique , , , Ordering Provider - RASHEEDA GORDILLO , Exam: TIBIA FIBULA RIGHTAccession #: [id number] ======TIBIA FIBULA RIGHT 08/03/2017 10:04 AM EST [...] healing Electronically signed by:Lauren Clemente. Transcribed by: [email or web address], User Resident: Electronically Signed by: LAUREN CLEMENTE @ 08/03/2017 12:03 PM Normal [facility] Comment on above: Order Comment: No: D o not add to previous draw Discharge Summaryon 07-22-19 Discharge Summary MR#: [id number] [facility] Penny Ordaz Admitted: 07/14/2017 Discharged: [...] patient is 56-year-[facility] on ICU ramp and suffering theaforementioned injuries. He was reduced and washed out in the emergencydepartment, placed in a splint. CT scan showed the aforementionedposterior malleolus injury that was operatively addressed. He was taken tot OR on 07/14/2017 for the aforementioned procedures. [...] was deemed ready for discharge on 07/16/2017 [facility].DISCHARGE DISPOSITION: Home.DISCHARGE CONDITION: Stable.DISCHARGE INSTRUCTIONS: The [...] Dict: 07/21/2017/09:05 Sherry/Romana Corrigan Trans: 07/22/2017 02:28 A/Irwin_JN:[id number] cc: Dewey Ward M.D. [address], [address] [place] [address] Normal [facility] ALBUMIN BLOODon 07-15-2017 Albumin 3.3 g/dL Low 3.5-5.7 [facility] Comment on above: Order Comment: No: D o not add to previous draw Performed By: #### 5 6101 ####[facility] [place] [address], [facility] BASIC METABOLIC PANELon 12-2 Calcium 8.5 mg/dL Low 8.6-10.3 [facility] Comment on above: Order Comment: No: D o not add to previous draw Performed By: #### 5 6101 ####[facility] [place] [address], [facility] Chloride 104 mmol/L Normal 98-107 [facility] Comment on above: Order Comment: No: D o not add to previous draw Performed By: #### 5 6101 ####[facility] [place] [address], [place] CO2 29 mmol/L Normal 21-31 [facility] Comment on above: Order Comment: No: D o not add to previous draw Performed By: #### 5 6101 ####[facility] [place] [address], [facility] Creatinine 0.66 mg/dL Low 0.70-1.30 [facility] Comment on above: Order Comment: No: D o not add to previous draw Performed By: #### 5 6101 ####[facility] [place] [address], [facility] eGFR (black) mL/min/{1.73_m2} Normal >60 [facility] Comment on above: Order Comment: No: D o not add to previous draw Performed By: #### 5 6101 ####[facility] [place] [address], [facility] eGFR (non-black) mL/min/{1.73_m2} Normal >60 Th e [facility] Comment on above: Order Comment: No: D o not add to previous draw Performed By: #### 5 6101 ####[facility] [place] [address], [facility] Glucose mass conc 89 mg/dL Normal 70-100 [facility] Comment on above: Order Comment: No: D o not add to previous draw Performed By: #### 5 6101 ####[facility] [place] [address], [facility] Potassium molar conc 4.3 mmol/L Normal 3.5-5.1 [facility] Comment on above: Order Comment: No: D o not add to previous draw Performed By: #### 5 6101 ####[facility] [place] [address], [facility] Sodium 137 mmol/L Normal 136-145 [facility] Comment on above: Order Comment: No: D o not add to previous draw Performed By: #### 5 6101 ####[facility] [place] [address], [facility] Urea nitrogen 9 mg/dL Normal 7-25 [facility] Comment on above: Order Comment: No: D o not add to previous draw Performed By: #### 5 6101 ####[place] [address] [facility].[address] CBC COMPLETE BLOOD COUNTon 1 Erythrocyte distribution width Auto Ratio (RBC) 15.2 % Normal 11.5-16.9 [facility] Comment on above: Order Comment: No: D o not add to previous draw Performed By: #### 5 6101 ####[facility] [place] [address], [facility] Erythrocytes (RBC) 3.00 mill/mm3 Low 4.30-5.90 [facility] Comment on above: Order Comment: No: D o not add to previous draw Performed By: #### 5 6101 ####[facility] [place] [address], [facility] Hematocrit (HCT) 29.6 % Low 39.0-55.0 [facility] Comment on above: Order Comment: No: D o not add to previous draw Performed By: #### 5 6101 ####[facility] [facility] Hemoglobin mass conc (Bld) 9.9 g/dL Low 13.9-16.3 [facility] Comment on above: Order Comment: No: D o not add to previous draw Performed By: #### 5 6101 ####[facility] MCH 33.0 pg High 24.0-32.0 [facility] Comment on above: Order Comment: No: D o not add to previous draw Performed By: #### 5 6101 ####[facility] [facility].[address] MCHC mass conc (RBC) 33.4 g/dL Normal 32.0-36.0 [facility] Comment on above: Order Comment: No: D o not add to previous draw Performed By: #### 5 6101 ####[facility] MCV 98.8 fL Normal 80.0-100.0 [facility] Comment on above: Order Comment: No: D o not add to previous draw Performed By: #### 5 6101 ####[facility] [facility] [place] [address], [facility] PLAT CNT 138 Thou/mm3 Normal 100-400 [facility] Comment on above: Order Comment: No: D o not add to previous draw Performed By: #### 5 6101 ####[facility] [facility].[address] WBC (Leukocytes) 8.6 Thou/mm3 Normal 4.0-10.0 [facility] Comment on above: Order Comment: No: D o not add to previous draw Performed By: #### 5 6101 ####[facility] [place] Operative Reporton 7 Operative Report MR#: [id number] [facility] Name: Penny Ordaz Room #: 5AB [id number] Discharge Date: Birthdate: 1960 OPERATIVE REPORTDATE OF [...] a 56-year-old male, [facility] on the ice [...] turned our attention to the tibial nailing. Ofnote, he does have a history of psoriasis [...] and reamed up to a 11.5 reamer withexcellent carolter. I decided upon a 10 mm nail, [...] eye on the open fracture site and Iwtyrell see him back in clinic in 1 [...] 07/14/2017/02:49 P/Rasheeda Gordillo M.D.Date Trans: 07/14/2017 11:58 P/Irwin_JN:[id number] cc: Dewey Ward M.D. [address] [facility] [address] Normal [facility] PREALBUMINon 07-15-2017 Prealbumin 19.2 mg/dL Normal 17.0-34.0 [facility] Comment on above: Order Comment: No: D o not add to previous draw Performed By: #### 5 6101 ####[facility] [place] [address], [facility] TRANSFERRINon 07-15-2017 Transferrin 235 mg/dL Normal 203-362 [facility] Comment on above: Order Comment: No: D o not add to previous draw Performed By: #### 5 9901 ####[facility] [place], [place] [address] [address] VITAMIN D 25-HYDROXYon 07-15 VITAMIN D 25-[place] <13.0 Low 30.0-80.0 [facility] Comment on above: Result Comment: >80. 0 Toxicity possible Performed By: #### 5 6101 ####[facility] LOWER EXTREMITY WO CON TRAST RIGHTon 07-14-[address] LOWER EXTREMITY WO CONTRAST RIGHT [facility] Rfgoekpvn[address] [place] [address] P atient Name: PENNY ORDAZ : 1960Sex: MAge: Race: WhiteMRN: [id number]. Location: [id number] Status: IVisit #: [id number] Date: 07/14/2017 9:20:00 AMCompleted Date: 07/14/2017 11:03 AMRequesting Provider: RASHEEDA GORDILLO Attending Provider: REX HIGH Report Copy To: Signs & Symptoms: FractureHistory: Patient history not availableComments: R/O Fractures, Right ankle CT STAT without contrast to rule out posterior malleolus fracture. Patient scheduled for OR at 11 AM.Exam: 3D CT LOWER EXTREMITY WO CONTRAST RIGHTAccession #: [id number] ======3D CT LOWER EXTREMITY WO CONTRAST RIGHT [...] fracture Electronically signed by:Lauren Clemente. Transcribed by: [id number], User Resident: Electronically Signed by: LAUREN CLEMENTE @ 07/14/2017 11:41 AM Normal [facility] Comment on above: Order Comment: No: D o not add to previous draw ALCOHOLon 07-14-2017 Ethanol NONE DETECTED Normal [facility] Comment on above: Result Comment: Divi de by 1000 to convert mg/dL to percent. Example: 100mg/dL = 0.1%. Performed By: #### 2 0621 ####[facility] [place] [address], [facility] BASIC METABOLIC PANELon 12-2 -2016 Calcium 8.9 mg/dL Normal 8.6-10.3 [facility] Comment on above: Order Comment: No: D o not add to previous draw Performed By: #### 0 0071 ####[facility] [place] [address], [facility] Chloride 109 mmol/L High 98-107 [facility] Comment on above: Order Comment: No: D o not add to previous draw Performed By: #### 0 0071 ####[place] [address] [facility] [place] [address], [facility] CO2 23 mmol/L Normal 21-31 [facility] Comment on above: Order Comment: No: D o not add to previous draw Performed By: #### 0 0071 ####[place] [address] [facility] [place] [address], [facility] Creatinine 0.68 mg/dL Low 0.70-1.30 [facility] Comment on above: Order Comment: No: D o not add to previous draw Performed By: #### 0 0071 ####[place] [address] [facility] [place] [address], [facility] eGFR (black) mL/min/{1.73_m2} Normal >60 [facility] Comment on above: Order Comment: No: D o not add to previous draw Performed By: #### 0 0071 ####[facility] [facility] [place] [place] [address], [facility] eGFR (non-black) mL/min/{1.73_m2} Normal >60 Th e [facility] Comment on above: Order Comment: No: D o not add to previous draw Performed By: #### 0 0071 ####[address] [place] [address], [facility] Glucose mass conc 119 mg/dL High 70-100 [facility] Comment on above: Order Comment: No: D o not add to previous draw Performed By: #### 0 0071 ####[facility] Potassium molar conc 4.3 mmol/L Normal 3.5-5.1 [facility] Comment on above: Order Comment: No: D o not add to previous draw Performed By: #### 0 0071 ####[facility] [facility].[address] Sodium 139 mmol/L Normal 136-145 [facility] Comment on above: Order Comment: No: D o not add to previous draw Performed By: #### 0 0071 ####[facility] [facility].[address] Urea nitrogen 11 mg/dL Normal 7-25 [facility] Comment on above: Order Comment: No: D o not add to previous draw Performed By: #### 0 0071 ####[facility] [facility].[address] CBC COMPLETE BLOOD COUNTon 1 09-14-2016 Erythrocyte distribution width Auto Ratio (RBC) 14.9 % Normal 11.5-16.9 [facility] Comment on above: Order Comment: No: D o not add to previous draw Performed By: #### 5 0608 ####[facility] [facility].[address] Erythrocytes (RBC) 3.66 mill/mm3 Low 4.30-5.90 [facility] Comment on above: Order Comment: No: D o not add to previous draw Performed By: #### 5 0608 ####[facility] Hematocrit (HCT) 35.6 % Low 39.0-55.0 [facility] Comment on above: Order Comment: No: D o not add to previous draw Performed By: #### 5 0608 ####[facility] [place] [address], [facility] Hemoglobin mass conc (Bld) 12.2 g/dL Low 13.9-16.3 [facility] Comment on above: Order Comment: No: D o not add to previous draw Performed By: #### 5 0608 ####[facility] [place] [address], [facility] MCH 33.3 pg High 24.0-32.0 [facility] Comment on above: Order Comment: No: D o not add to previous draw Performed By: #### 5 0608 ####[facility] MCHC mass conc (RBC) 34.2 g/dL Normal 32.0-36.0 [facility] Comment on above: Order Comment: No: D o not add to previous draw Performed By: #### 5 0608 ####[facility] [facility].[address] MCV 97.3 fL Normal 80.0-100.0 [facility] Comment on above: Order Comment: No: D o not add to previous draw Performed By: #### 5 0608 ####[facility] [facility] [place] [address], [facility] PLAT CNT 170 Thou/mm3 Normal 100-400 [facility] Comment on above: Order Comment: No: D o not add to previous draw Performed By: #### 5 0608 ####[facility] [place] [address], [facility] WBC (Leukocytes) 9.4 Thou/mm3 Normal 4.0-10.0 [facility] Comment on above: Order Comment: No: D o not add to previous draw Performed By: #### 5 0608 ####[facility] POC GLUCOSE LABon 07-14-2017 Glucose mass conc 115 mg/dL High 70-100 [facility] Comment on above: Performed By: #### 8 5499 ####[facility] PORTABLE ANKLE RIGHT 2 VWSon 07-14-2017 PORTABLE ANKLE RIGHT 2 S [facility] [address]hnkn[address]as[address] [place] [address] P atient Name: PENNY ORDAZ : 1960Sex: MAge: Race: WhiteMRN: [id number]. Location: [id number] Status: IVisit #: [id number] Date: 07/14/2017 3:15:00 PMCompleted Date: 07/14/2017 03:55 PMRequesting Provider: CORNELIA ROCA Attending Provider: REX HIGH Report Copy To: Signs & Symptoms: Post OPHistory: Patient history not availableComments: Hardware EvaluationExam: PORTABLE ANKLE RIGHT 2 VWSAccession #: [id number] ======PORTABLE ANKLE RIGHT 2 VWS 07/14/2017 3:55 [...] findings. Electronically signed by:Oscar Still. Transcribed by: [email or web address], User Resident: ADRIEL SYKESElectronically Signed by: OSCAR STILL @ 07/16/2017 01:33 AMI personally read this/these film(s) with this resident Normal [facility] Comment on above: Order Comment: No: D o not add to previous draw PORTABLE ANKLE RIGHT 2 VWS [facility] [address]swagujxi[address] [place] [address] P atient Name: PENNY ORDAZ : 1960Sex: MAge: Race: WhiteMRN: [id number]. 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 Transcribed by: [email or web address], User Resident: Electronically Signed by: LAUREN CLEMENTE @ 07/14/2017 08:06 AM Normal [facility] Comment on above: Order Comment: R/O F X PORTABLE KNEE RIGHT 2 VWSon 07-14-2017 PORTABLE KNEE RIGHT 2 VWS [facility] Qczidsxwl[address] [place] [address] P atient Name: PENNY ORDAZ : 1960Sex: MAge: Race: WhiteMRN: [id number]. 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 Transcribed by: [email or web address], User Resident: Electronically Signed by: LAUREN CLEMENTE @ 07/14/2017 08:06 AM Normal [facility] Comment on above: Order Comment: R/O F X PORTABLE TIBIA FIBULA RIGHTo n 07-14-2017 PORTABLE TIBIA FIBULA RIGHT [facility] Igjdhymfm[address] [place] [address] P atient Name: PENNY ORDAZ : 1960Sex: MAge: Race: WhiteMRN: [id number]. Location: [id number] Status: IVisit #: [id number] Date: 07/14/2017 3:15:00 PMCompleted Date: 07/14/2017 03:55 PMRequesting Provider: CORNELIA ROCA Attending Provider: REX HIGH Report Copy To: Signs & Symptoms: Post OPHistory: Patient history not availableComments: Hardware EvaluationExam: PORTABLE TIBIA FIBULA RIGHTAccession #: [id number] ======PORTABLE TIBIA FIBULA RIGHT 07/14/2017 3:55 PM [...] findings. Electronically signed by:Oscar Still. Transcribed by: [email or web address], User Resident: ADRIEL SYKESElectronically Signed by: OSCAR STILL @ 07/16/2017 01:31 AMI personally read this/these film(s) with this resident Normal [facility] Comment on above: Order Comment: No: D o not add to previous draw PORTABLE TIBIA FIBULA RIGHT [facility] CenterDepartment of Dvbtzgzsr[address] [place] [address] P atient Name: PENNY ORDAZ : 1960Sex: MAge: Race: WhiteMRN: [id number]. 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 Transcribed by: [email or web address], User Resident: Electronically Signed by: LAUREN CLEMENTE @ 07/14/2017 08:06 AM Normal [facility] Comment on above: Order Comment: R/O F X PROTHROMBIN TIMEon 7 INR Coag RelTime (PPP) 1.06 {INR} Normal 0.91-1.16 Th e [facility] Comment on above: Order Comment: No: D [...] OF ACTION, CLINICALEFFECTIVENESS, AND OPTIMAL THERAPEUTIC RANGE. [id number]. Performed By: #### 5 6101 ####[facility].[address] Prothrombin time (PT) Coag time (PPP) 13.8 s Normal 12.3-14.8 [facility] Comment on above: Order Comment: No: D o not add to previous draw Result Comment: ALL RESULTS MUST BE INTERPRETED WITH RESPECT TO BLOOD DRAWING ARTIFACTOR DILUTION ERROR OF ANTICOAGULANT AT THE TIME OF SAMPLING. Performed By: #### 5 6101 ####[facility].[address] RBC'S 2 UNITSon 07-14-2017 CROSSMATCH INTERP 1 COMP Normal [facility] Comment on above: Performed By: #### 8 6002 ####[facility].[place] [id number], [facility] CROSSMATCH INTERP 2 COMP Normal [facility] Comment on above: Performed By: #### 8 6002 ####[facility] [place] [address], [facility] PRODUCT CODE 1 E0336 Normal [facility] Comment on above: Performed By: #### 8 6002 ####[facility] [place] [address], [facility] PRODUCT CODE 2 E0336 Normal [facility] Comment on above: Performed By: #### 8 6002 ####[facility] [place] [address], [facility] PRODUCT STATUS 1 RE Normal [facility] Comment on above: Result Comment: Resu lt changed by IF on 07/18/2017 07:23. The previous value was XM. Performed By: #### 8 6002 ####[facility] [place] [address], [facility] PRODUCT STATUS 2 RE Normal [facility] Comment on above: Result Comment: Resu lt changed by IF on 07/18/2017 07:23. The previous value was XM. Performed By: #### 8 6002 ####[facility] [place] [address], [facility] UNIT ABO 1 A Normal [facility] Comment on above: Performed By: #### 8 6002 ####[facility] [place] [address], [facility] UNIT ABO 2 A Normal [facility] Comment on above: Performed By: #### 8 6002 ####[facility] [place] [address], [facility] UNIT ID 1 [id number] Normal [facility] Comment on above: Performed By: #### 8 6002 ####[facility] UNIT ID 2 [id number] Normal [facility] Comment on above: Performed By: #### 8 6002 ####[address] UNIT RH 1 Positive Normal [facility] Comment on above: Performed By: #### 8 6002 ####[address] [place] [address], [facility] UNIT RH 2 Positive Normal [facility] Comment on above: Performed By: #### 8 6002 ####[address] TIBIA FIBULA RIGHTon 017 TIBIA FIBULA RIGHT [facility] CenterDepartment of Moluapkjr[address] [place], [place] [id number] P atient Name: PENNY ORDAZ : 1960Sex: MAge: Race: WhiteMRN: [id number]. Location: [id number] Status: IVisit #: [id number] Date: 07/14/2017 1:30:00 PMCompleted Date: 07/14/2017 02:20 PMRequesting Provider: RASHEEDA GORDILLO Attending Provider: REX HIGH Report Copy To: Signs & Symptoms: im rodding right tibiaHistory: im rodding right tibiaComments: im rodding right tibiaExam: TIBIA FIBULA RIGHTAccession #: [id number] ======TIBIA FIBULA RIGHT 07/14/2017 2:20 PM EST SIGNS AND SYMPTOMS: im rodding right tibia TECHNOLOGIST COMMENTS: intra-op right tibia jil, 2 minutes 40 seconds fluoro time, OR 5, Dr. Gordillo QUESTION FOR THE RADIOLOGIST: im rodding right tibia PROTOCOL: AP(PA) and Lateral views were obtained. COMPARISON: None FINDINGS: Soft tissues: Bones: Joints: IMPRESSION: Documentation Electronically signed by:Lauren Clemente. Transcribed by: [email or web address], User Resident: Electronically Signed by: LAUREN CLEMENTE @ 07/14/2017 02:53 PM Normal [facility] Comment on above: Order Comment: No: D o not add to previous draw TYPE AND SCREENon 07-14-2017 ABO INTERPRETATION A Normal [facility] Comment on above: Performed By: #### 6 2586 ####[facility].[address] ANTIBODY SCREEN Negative Normal [facility] Comment on above: Performed By: #### 6 2586 ####[facility] [place] [address], [facility] RH INTERPRETATION Positive Normal [facility] Comment on above: Performed By: #### 6 2586 ####[facility] [place] [address], [facility] XR TIB-FIB RT 2Von 7 XR TIB-FIB RT 2V [address] [place] [address] Patient: PENNY ORDAZ Exam Date: 07/13/2017DOB: 1960 Gender:M : DR MELBA SANCHEZ . Admission #: [id number] : Order #: [id number] HERE TO VIEW EXAM RADIOLOGY REPORT PROCEDURE: [...] Arreola M.D. on 07/14/2017 at 07:56 Normal [facility] Vital Signs Date Time Vital Sign Value Performing Clinician Facility 12-05-2024 09:25-0400 Body height 175.3 cm DeweyAnyviteng DO [facility] 12-05-2024 09:25-0400 Body mass index (BMI) [Ratio] 22.29 kg/m2 Dewey Fure[employer]ng DO Work Phone: [facility] [employer] 12-05-2024 09:25-0400 Body temperature 97.59 [degF] Dewey FiREappsng DO Work Phone: [facility] [employer] 12-05-2024 09:25-0400 Body weight 68.49 kg Dewey [employer] DO [facility] 12-05-2024 09:25-0400 Diastolic blood pressure 50 mm[Hg] Dewey Furlong DO [facility] 12-05-2024 09:25-0400 Heart rate 87 /min Dewey Furlong DO [facility] 12-05-2024 09:25-0400 Respiratory rate 18 /min Dewey Furlong DO [facility] 12-05-2024 09:25-0400 SaO2% (BldA) [Mass fraction] 98 % Dewey Furlong DO Work Phone: [facility] [employer] 12-05-2024 09:25-0400 Systolic blood pressure 118 mm[Hg] Dewey Furlong DO Work Phone: [facility] [employer] 11-01-2024 09:26-0400 Body height 175.3 cm Dewey Furlong DO [facility] 11-01-2024 09:26-0400 Body mass index (BMI) [Ratio] 23.26 kg/m2 Dewey Furlong DO [facility] 11-01-2024 09:26-0400 Body temperature 97.5 [degF] Dewey Furlong DO [facility] 11-01-2024 09:26-0400 Body weight 71.49 kg Dewey Furlong DO [facility] 11-01-2024 09:26-0400 Diastolic blood pressure 52 mm[Hg] Dewey Furlong DO [facility] 11-01-2024 09:26-0400 Heart rate 91 /min Dewey Furlong DO [facility] 11-01-2024 09:26-0400 Respiratory rate 18 /min Dewey Furlong DO [facility] 11-01-2024 09:26-0400 SaO2% (BldA) [Mass fraction] 100 % Dewey Furlong DO [facility] 11-01-2024 09:26-0400 Systolic blood pressure 120 mm[Hg] Dewey Furlong DO [facility] 10-04-2024 10:30-0400 Body height 175.3 cm Keyur Stuart MD Work Phone: [facility] 10-04-2024 10:30-0400 Body mass index (BMI) [Ratio] 23.2 kg/m2 Keyur Stuart MD Work Phone: [facility] 10-04-2024 10:30-0400 Body temperature 97.5 [degF] Keyur Stuart MD [facility] 10-04-2024 10:30-0400 Body weight 71.31 kg Keyur Stuart MD Work Phone: [facility] 10-04-2024 10:30-0400 Diastolic blood pressure 56 mm[Hg] Keyur Stuart MD Work Phone: [facility] 10-04-2024 10:30-0400 Heart rate 96 /min Keyur Stuart MD Work Phone: [facility] 10-04-2024 10:30-0400 Respiratory rate 16 /min Keyur Stuart MD Work Phone: [facility] 10-04-2024 10:30-0400 SaO2% (BldA) [Mass fraction] 98 % Keyur Stuart MD [facility] 10-04-2024 10:30-0400 Systolic blood pressure 127 mm[Hg] Keyur Stuart MD [facility]: [facility] 09-21-2024 09:04-0500 Body height 175.3 cm Dewey Furlong DO Work Phone: [facility] 09-21-2024 09:04-0500 Body mass index (BMI) [Ratio] 23.71 kg/m2 Dewey Furlong DO Work [facility]: [facility] 09-21-2024 09:04-0500 Body temperature 97.39 [degF] Dewey Furlong DO Work Phone: [facility] 09-21-2024 09:04-0500 Body weight 72.85 kg Dewey Furlong DO Work [facility]: [facility] 09-21-2024 09:04-0500 Diastolic blood pressure 50 mm[Hg] Dewey Furlong DO [facility] 09-21-2024 09:04-0500 Heart rate 101 /min Dewey Beam [employer]long DO Work Phone: [facility] 09-21-2024 09:04-0500 Respiratory rate 18 /min Dewey Furlong DO Work Phone: [facility] [employer] 09-21-2024 09:04-0500 SaO2% (BldA) [Mass fraction] 93 % Dewey Furlong DO Work Phone: [facility] [employer] 09-21-2024 09:04-0500 Systolic blood pressure 120 mm[Hg] Dewey Furlong DO Work Phone: [facility] [employer] [facility] 09-06-2024 10:29-0500 Body height 175.3 cm Dewey Furlong DO Work Phone: [facility] [employer] 09-06-2024 10:29-0500 Body mass index (BMI) [Ratio] 25.67 kg/m2 Dewey Furlong DO Work Phone: [facility] [employer] 09-06-2024 10:29-0500 Body temperature 97.5 [degF] Dewey Furlong DO Work Phone: [facility] [employer] 09-06-2024 10:29-0500 Body weight 78.83 kg Dewey Furlong DO Work Phone: [facility] [employer] 09-06-2024 10:29-0500 Diastolic blood pressure 60 mm[Hg] Dewey Furlong DO Work Phone: [facility] [employer] 09-06-2024 10:29-0500 Heart rate 85 /min Dewey Furlong DO Work Phone: [facility] [employer] 09-06-2024 10:29-0500 SaO2% (BldA) [Mass fraction] 96 % Dewey Furlong DO Work Phone: [facility] [employer] [facility] 09-06-2024 10:29-0500 Systolic blood pressure 110 mm[Hg] Dewey Furlong DO Work Phone: [facility] [employer] [facility] 06-25-2024 13:51-0500 Body height 175.3 cm Dewey Furlong DO Work Phone: [employer] 06-25-2024 13:51-0500 Body mass index (BMI) [Ratio] 24.04 kg/m2 Dewey Lucialong DO Work Phone: [employer] 06-25-2024 13:51-0500 Body temperature 97.9 [degF] Dewey Myerslong DO [facility] 06-25-2024 13:51-0500 Body weight 73.85 kg Dewey Myerslong DO Work Phone: [facility] 06-25-2024 13:51-0500 Diastolic blood pressure 42 mm[Hg] Dewey Reillyng DO Work Phone: [facility] 06-25-2024 13:51-0500 Heart rate 94 /min Dewey Reillyng DO Work [facility]: [facility] 06-25-2024 13:51-0500 Respiratory rate 18 /min Dewey Myerslong DO Work Phone: [facility] 06-25-2024 13:51-0500 SaO2% (BldA) [Mass fraction] 95 % Dewey Myerslong DO Work Phone: [employer] 06-25-2024 13:51-0500 Systolic blood pressure 102 mm[Hg] Dewey Reillyng DO [facility]: [facility] Encounters Encounter Date Encounter Type Care Provider Facility Start: 12-05-2024 End: 12-05-2024 Office outpatient visit 15 minutes Dewey Ward DO Work Phone: [facility] - [facility] Comment on above: Pleural effusion, ri ght (Primary Dx); Primary myelofibrosis (CMS-HCC) Start: 11-27-2024 End: 11-27-2024 Telephone encounter Ramo Taylor MD Work Phone: [facility] Start: 11-26-2024 End: 11-26-2024 Telephone encounter Ramo Taylor MD Work Phone: [facility] Start: 11-16-2024 End: 11-16-2024 [facility] Start: 11-01-2024 End: 11-01-2024 ambulatory DEWEY WARD [facility] Start: 11-01-2024 End: 11-01-2024 Office outpatient visit 15 minutes Dewey Ward DO Work Phone: [facility] Comment on above: Primary myelofibrosi s (CMS-HCC) (Primary Dx); Pleural effusion, right; Memory loss Start: 10-09-2024 End: 10-09-2024 ambulatory Dewey Ward DO Work Phone: [facility] Work Phone: Start: 10-09-2024 End: 10-09-2024 Departed Referred Dewey Ward DO Work Phone: [facility]-LAB Path [facility] Start: 10-04-2024 End: 10-04-2024 Documentation procedure Misti Fuenets RN [facility] - Medical Oncology Start: 10-04-2024 End: 10-04-2024 Office outpatient visit 40 minutes Keyur Stuart MD Work Phone: [facility] - Medical Oncology Comment on above: Primary myelofibrosi s (CMS-HCC) (Primary Dx); Severe anemia; Lymphadenopathy, inguinal; Splenomegaly Start: 10-04-2024 End: 10-04-2024 ambulatory KEYUR STUART [facility] Start: 10-01-2024 End: 10-01-2024 Orders Only Dewey Ward DO Work Phone: [facility] Comment on above: Severe anemia (Prima ry Dx) Start: 09-26-2024 Non-patient / Non-visit Dewey Myerslong DO Work Phone: [facility] Work Phone: Start: 09-26-2024 End: 09-26-2024 Patient encounter procedure Dewey Ward DO Work Phone: [facility]-Respiratory Therapy Work Phone: Start: 09-26-2024 End: 09-26-2024 ambulatory Dewey Ward DO Work Phone: [facility] Work Phone: Start: 09-21-2024 End: 09-21-2024 ambulatory [facility] Start: 09-21-2024 End: 09-21-2024 Transitional care manage srvc [facility] day [facility] Work Phone: [facility] Comment on above: Severe anemia (Prima ry Dx); Lymphadenopathy, inguinal; Ex-cigarette smoker; Hyperglycemia; Special screening for malignant neoplasm of colon Start: 09-21-2024 End: 09-21-2024 ambulatory [facility] Start: 09-12-2024 End: 09-12-2024 Telephone encounter Guerline Cha CMA [facility] Start: 09-08-2024 End: 09-08-2024 Telephone encounter Latha Salcido Call Richard boyd Comment on above: Consult (Right pleur al effusion concern for malignancy) Start: 09-08-2024 End: 09-12-2024 Evaluation and management of inpatient TAMELA Weaver CLAY [facility] Start: 09-07-2024 End: 09-08-2024 Emergency department patient visit GEREMIAS SOTO [facility] Start: 09-06-2024 End: 09-06-2024 ambulatory [facility] Start: 09-06-2024 End: 09-06-2024 Telephone encounter Cherelle Murphy [facility] Call Richard boyd Comment on above: CRITICAL LAB Start: 09-06-2024 End: 09-06-2024 Office outpatient visit 25 minutes Dewey G Furlong DO Work Phone: [facility] Comment on above: Memory loss (Primary Dx); Hot flashes; Cigarette smoker Start: 09-06-2024 End: 09-06-2024 ambulatory [facility] Start: 07-23-2024 End: 07-23-2024 Telephone encounter Elisha Lewis [facility] Start: 06-29-2024 End: 06-29-2024 Orders Only Dewey Ward DO Work Phone: [facility] Start: 06-25-2024 End: 06-25-2024 ambulatory [facility] Start: 06-25-2024 End: 06-25-2024 Patient encounter procedure Dewey Ward DO Work Phone: [facility] Comment on above: Welcome to Medicare preventive visit (Primary Dx); Screening for depression; Screening for heart disease; Colon cancer screening declined; Prostate cancer screening declined Start: 06-25-2024 End: 06-25-2024 Patient encounter status Dewey Ward DO Work Phone: [facility] [employer] Work Phone: Start: 06-25-2024 End: 06-25-2024 ambulatory [facility] Start: 06-25-2024 Encounter for genera l adult medical examination without abnormal findings [facility] Start: 12-14-2017 End: 12-15-2017 Ambulatory [facility] Facility:[facility] Start: 10-19-2017 End: 10-20-2017 Ambulatory [facility] Facility:[facility] Start: 10-17-2017 End: 10-18-2017 Ambulatory [facility] Facility:[facility] Start: 08-31-2017 End: 09-01-2017 Ambulatory [facility] Facility:[facility] Start: 08-03-2017 End: 08-04-2017 Ambulatory [facility] Facility:[facility] Start: 07-14-2017 End: 07-16-2017 Evaluation and management of inpatient [facility] Facility:[facility] Start: 07-13-2017 End: 07-14-2017 Ambulatory MELBA SANCHEZ Facility: Procedures Date Procedure Procedure Detail Performing Clinician Start: 12-05-2024 Adult depression screening assessment Dewey Ward DO Work Phone: Start: 11-01-2024 Adult depression screening assessment Dewey Ward DO Work Phone: Start: 10-04-2024 Follow-up visit Follow-up KEYUR STUART Start: 09-21-2024 Adult depression screening assessment Dewey Ward DO Work Phone: Start: 09-06-2024 Adult depression screening assessment Dewey Ward DO Work Phone: Start: 06-25-2024 Follow-up visit Follow-up DEWEY WARD Start: 06-25-2024 Adult depression screening assessment Dewey Reillyng DO Work Phone: Start: 07-14-2017 INSERTION OF INT FIX INTO R TIBIA, PERC APPROACH RASHEEDA GORDILLO Start: 07-14-2017 REPOSITION RIGHT TIB IA WITH INTRAMED FIX, OPEN APPROACH RASHEEDA GORDILLO Start: 07-14-2017 REPOSITION RIGHT TIB IA, EXTERNAL APPROACH RASHEEDA GORDILLO Plan of Treatment Date Care Activity Detail Author Start: 2033 RSV vaccine (adult) (1 - 1-dose 75+ series) RSV vaccine (adult) (1 - 1-dose 75+ series) [facility] Start: 01-20-2027 DTaP,Tdap and Td Vaccines (2 - Td or Tdap) DTaP,Tdap and Td Vaccines (2 - Td or Tdap) [facility] Start: 12-05-2025 Adult BMI Screening Adult BMI Screen ing [facility] [employer] [facility] Start: 12-05-2025 Depression Screening Depression Scre ening [facility] Start: 12-05-2025 Fall Risk Screening Fall Risk Screen ing [facility] Start: 12-05-2025 Tobacco Screening Tobacco Screening [facility] Start: 11-01-2025 Adult BMI Screening Adult BMI Screen ing [facility] Start: 11-01-2025 Depression Screening Depression Scre ening [facility] Start: 11-01-2025 Fall Risk Screening Fall Risk Screen ing [facility] Start: 11-01-2025 Tobacco Screening Tobacco Screening [facility] Start: 10-04-2025 Adult BMI Screening Adult BMI Screen ing [facility] Start: 10-04-2025 Tobacco Screening Tobacco Screening [facility] Start: 09-21-2025 Adult BMI Screening Adult BMI Screen ing [facility] Start: 09-21-2025 Depression Screening Depression Scre ening [facility] Start: 09-21-2025 Fall Risk Screening Fall Risk Screen ing [facility] Start: 09-21-2025 Tobacco Screening Tobacco Screening [facility] Start: 09-11-2025 Adult BMI Screening Adult BMI Screen ing [facility] Start: 09-10-2025 Tobacco Screening Tobacco Screening [facility] Start: 09-07-2025 Adult BMI Screening Adult BMI Screen ing [facility] Start: 09-06-2025 Depression Screening Depression Scre ening [facility] Start: 09-06-2025 Fall Risk Screening Fall Risk Screen ing [facility] Start: 09-06-2025 Tobacco Screening Tobacco Screening [facility] Start: 07-18-2025 Screening for malign ant neoplasm of colon Colon Cancer Screening 3 Year Cologuard [facility] Comment on above: Postponed from 10/06 (Patient Refused) Start: 06-25-2025 Adult BMI Screening Adult BMI Screen ing [facility] Start: 06-25-2025 Depression Screening Depression Scre ening [facility] Start: 06-25-2025 Fall Risk Screening Fall Risk Screen ing [facility] Start: 06-25-2025 Medicare Annual Well ness Visit Medicare Annual Wellness Visit [facility] Start: 06-25-2025 Tobacco Screening Tobacco Screening [facility] Start: 03-18-2025 Influenza vaccination Influenza Vacc ine [facility] Start: 03-07-2025 End: 03-07-2025 Patient encounter procedure 03/07/2025 10:00 AM EDT Office Visit [facility] [address] [place] [address] Dewey Ward, DO [address] [place] [address] [facility] Start: 01-15-2025 End: 01-15-2025 Patient encounter procedure 01/15/2025 11:00 AM EDT Appointment [facility] [address] [place] [id number] Ramo Taylor MD [address] [place] [address] Critical access hospital Medical Start: 01-03-2025 End: 01-03-2025 Patient encounter procedure 01/03/2025 11:00 AM EDT Office Visit [facility] - Medical Oncology [address] [place] [phone] Keyur Stuart MD [address] [place] [address] [address] [place] [address] [facility] - Medical Oncology Start: 12-05-2024 Abdominal aortic aneurysm screening Abdominal Aortic Aneurysm (AAA) Screen [facility] [employer] [facility] Comment on above: Postponed from 10/06 (Patient Refused) Start: 12-05-2024 End: 12-05-2025 XR Chest PA and Lateral X-ray chest 2 views Imaging Routine Pleural effusion, right Expected: 12/05/2024, Expires: 12/05/2025 [facility] Comment on above: Expected: 12/05/2024 , Expires: 12/05/2025 Start: 12-05-2024 End: 12-05-2024 Patient encounter procedure 12/05/2024 9:30 AM EDT Office Visit [facility] - [facility] [address] [place] [address] Dewey Ward DO [address], [place] [address] [facility] Start: 11-01-2024 End: 11-01-2025 XR Chest PA and Lateral X-ray chest 2 views Imaging Routine Pleural effusion, right Expected: 11/01/2024, Expires: 11/01/2025 [facility] Work Phone: Comment on above: Expected: 11/01/2024 , Expires: 11/01/2025 Start: 10-25-2024 End: 10-25-2024 Patient encounter procedure 10/25/2024 2:00 PM EDT Office Visit [facility] [address] [facility] [facility] [address] [place] [phone] Wen Hampton DO [address] [address] [facility] Start: 10-15-2024 Influenza vaccination Influenza Vacc ine [facility] Comment on above: Postponed from 03/18 (Patient Refused) Start: 10-04-2024 End: 10-04-2024 Patient encounter procedure 10/04/2024 10:30 AM EDT Office Visit [email or web address] - Medical Oncology [facility] [place] [phone] Keyur Stuart MD [address] [place] [id number] [facility] - Medical Oncology Start: 09-15-2024 Welcome to Medicare Visit (G0402) Welcome to Medicare Visit (G0402) [facility] Start: 09-06-2024 End: 09-06-2024 Patient encounter procedure 09/06/2024 10:30 AM EST Office Visit [facility] [address] [place] [phone] Dewey Ward, [address], [place] [address] [facility] Internal Medicine - Family Medicine Start: 07-18-2024 Abdominal aortic aneurysm screening Abdominal Aortic Aneurysm (AAA) Screen [facility] Comment on above: Postponed from 10/06 (Patient Refused) Start: 07-18-2024 Administration of varicella zoster vaccine Zoster (Shingles) Vaccine (1 of 2) [facility] Comment on above: Postponed from 10/06 (Patient Refused) Start: 07-18-2024 Screening for malign ant neoplasm of colon Colon Cancer Screening 3 Year Cologuard [facility] Comment on above: Postponed from 10/06 (Patient Refused) Start: 03-18-2024 COVID-19 Vaccine ( season) COVID-19 Vaccine ( season) [facility] Start: 10-07-2023 Abdominal aortic aneurysm screening Abdominal Aortic Aneurysm (AAA) Screen [facility] Start: 2018 Hepatitis B (HBV) Vaccine (optional start 60+ years) Hepatitis B (HBV) Vaccine (optional start 60+ years) [facility] Start: 2008 Administration of varicella zoster vaccine Zoster (Shingles) Vaccine (1 of 2) [facility] Start: 2008 Pneumococcal vaccination Pneum ococcal Vaccine(s) (50+ yrs) (1 of 1 - PCV) [facility] Start: 2008 Shingles (RZV) Vacci ne (1 of 2) Shingles (RZV) Vaccine (1 of 2) [facility] Start: 10-07-2003 Screening for malign ant neoplasm of colon [facility] Start: 1993 Lipid panel Cholesterol [facility] Start: 1977 Administration of varicella zoster vaccine Zoster (Shingles) Vaccine (1 of 2) [facility] Start: 1977 Hepatitis A (HAV) Vaccine (optional start 19+ years) Hepatitis A (HAV) Vaccine (optional start 19+ years) [facility] Start: 1976 Adult BMI Screening Adult BMI Screen ing [facility] Start: 1976 Hepatitis C screening Hepatitis C An tibody [facility] Start: 1976 Tdap Booster Tdap Booster [facility] Start: 1970 Tobacco Screening Tobacco Screening [facility] [employer] [facility] Start: 1958 Screening for malign ant neoplasm of colon Colonoscopy [facility] Start: 1958 Tobacco Counseling Tobacco Counselin g [facility] [employer] [facility] End: 09-21-2025 Basic metabolic 2000 panel - Serum or Plasma Basic Metabolic Panel Lab Routine Hyperglycemia 1 Occurrences starting 09/21/2024 until 09/21/2025 [facility] Comment on above: 1 Occurrences starti ng 09/21/2024 until 09/21/2025 End: 09-06-2025 CBC panel - Blood by Automated count CBC without diff Lab Routine Memory loss Hot flashes 1 Occurrences starting 09/06/2024 until 09/06/2025 [facility] Comment on above: 1 Occurrences starti ng 09/06/2024 until 09/06/2025 End: 09-21-2025 CBC panel - Blood by Automated count CBC Lab Routine Severe anemia 1 Occurrences starting 09/21/2024 until 09/21/2025 [employer] Work Phone: Comment on above: 1 Occurrences starti ng 09/21/2024 until 09/21/2025 End: 10-04-2025 CBC W Auto Differential panel - Blood CBC with auto diff Lab Routine Primary myelofibrosis (CMS-HCC) 1 Occurrences starting 10/04/2024 until 10/04/2025 [employer] Work Phone: Comment on above: 1 Occurrences starti ng 10/04/2024 until 10/04/2025 End: 06-25-2025 Comprehensive metabolic 2000 panel - Serum or Plasma Comprehensive metabolic panel Lab Routine Screening for heart disease 1 Occurrences starting 06/25/2024 until 06/25/2025 [employer] Work Phone: Comment on above: 1 Occurrences starti ng 06/25/2024 until 06/25/2025 End: 09-06-2025 Cyanocobalamin vitamin b-12 Vitamin B12 Lab Routine Memory loss Hot flashes 1 Occurrences starting 09/06/2024 until 09/06/2025 [facility] Comment on above: 1 Occurrences starti ng 09/06/2024 until 09/06/2025 End: 10-04-2025 Erythropoietin (EPO), S Erythropoietin (EPO), S Lab Routine Primary myelofibrosis ([facility]) 1 Occurrences starting 10/04/2024 until 10/04/2025 [facility] Comment on above: 1 Occurrences starti ng 10/04/2024 until 10/04/2025 End: 09-21-2025 Hemoglobin A1c/Hemoglobin.total in Blood Hemoglobin A1c Lab Routine Hyperglycemia 1 Occurrences starting 09/21/2024 until 09/21/2025 [facility] Comment on above: 1 Occurrences starti ng 09/21/2024 until 09/21/2025 End: 06-25-2025 Lipid panel Lipid panel Lab Routine Screening for heart disease 1 Occurrences starting 06/25/2024 until 06/25/2025 [facility] Comment on above: 1 Occurrences starti ng 06/25/2024 until 06/25/2025 End: 09-06-2025 TSH with Reflex TSH with Reflex Lab Routine Memory loss Hot flashes 1 Occurrences starting 09/06/2024 until 09/06/2025 [employer] Phone: Comment on above: 1 Occurrences starti ng 09/06/2024 until 09/06/2025 Payers Date Payer Category Payer Self-pay 2024 Medicare (Managed Care) [employer] [id number] 2024 Unknown [id number] 2023 Medicare HMO [id number] 2023 Medicare [id number] 2012 Unknown [facility] [id number] 1959 Unknown [id number] 1958 Unknown [id number]. 1285 1958 Unknown [id number]. 1285 1958 Unknown [id number] [id number]. 1285 1958 Unknown [id number] [id number]. 1285 1958 Unknown [id number] [id number]. 1285 1958 Unknown [id number] [id number]. 1285 1958 Unknown [id number] [id number]. 1285 1958 Unknown [id number] [id number]. 1285 1958 Unknown [id number] [id number]. 1285 1958 Unknown [id number] [id number]. 1286 Unknown [id number] [id number]. 531 Unknown [id number]. 531 Social History Date Type Detail Facility Start: 06-25-1979 Tobacco smoking status NHIS Smokes tobacco daily [facility] Start: 06-25-1979 End: 09-02-2024 History of tobacco use Cigarette Smoker [facility] Start: 06-25-2024 End: 12-05-2024 Cigarettes smoked current (pack per day) - Reported 1 [facility] Start: 06-25-2024 End: 09-08-2024 Tobacco use and exposure Smokeless tobacco non-user [facility] Start: 06-26-2024 End: 12-05-2024 Alcoholic beverage intake Current drinker of alcohol (finding) [facility] Start: 06-25-2024 End: 12-05-2024 [facility] [employer] Has the [employer], or [employer] threatened to shut off services in your home in past 12Mo No [facility] Do you belong to any clubs or organizations such as taoist groups, unions, fraternal or athletic groups, or school groups? Yes [facility] Are you now , , , , never or living with a partner? [facility] How often to you hav e a drink containing alcohol? 4 or more times a week [facility] How many standard dr inks containing alcohol do you have on a typical day? [address] [facility] How often do you hav e 6 or more drinks on 1 occasion? Never [facility] How hard is it for y ou to pay for the very basics like food, housing, medical care, and heating Not hard at all [facility] Do you feel stress - tense, restless, nervous, or anxious, or unable to sleep at night because your mind is troubled all the time - these days [OSQ] Not at all [facility] Start: 06-25-2024 Alcohol Comment 4 or 5 a night [facility] Start: 1960 Sex assigned at Not on file [employer] Start: 02-20-2015 End: 11-23-2024 [facility] (finding) [facility] Start: 09-08-2024 Tobacco smoking status NHIS Ex-smoker [facility] Start: 06-25-1979 End: 09-02-2024 History of tobacco use Current smoker [facility] ever smoked [facility] Start: 1960 Sex Assigned At Male [facility] Start: 12-05-2024 Alcohol Comment 1 a night [facility] Goals Date Patient Goal Desired Activity /State Personal health goal Comment on above: Formatting of this n ote might be different from the original. Evaluation of progress towards goal: Current Discharge Plan; home with spouse, self care, denies needs at this time. Functional Status Date Assessment Result Facility [facility] Clinical Notes 06-25-2024 to 12-05-2024 Dewey Ward, - 12/05/2024 9:30 AM EDTTelephone Encounter - Shirlene Parkinson - 11/27/2024 5:00 PM EDTTelephone Encounter - Shirlene Parkinson - 11/27/2024 5:00 PM EDTPatient Instructions Note Date & Type Note Facility 12-05-2024 History of Presen t illness Narrative Subjective Patient ID: Penny Ordaz is a 64 y.o. male. Keron presents today to recheck chest x-ray. He is not having any respiratory symptoms. He did have PFTs done that did not show any significant COPD or other abnormality. He denies chest pain or cough. He is seeing the oncologist for his myelofibrosis. He has an appointment in January in [place] to discuss it with a different specialist. He would like to hold off on his colonoscopy and EGD. He had a hemoglobin done today and his count was 7.1. [...] Exam Vitals reviewed. Exam conducted with a dye and chemical coordinator present (Ayad Dove MS 3). Constitutional: General: He is not [...] is still may need to see a material lister if it has it. Primary myelofibrosis ([facility]) Follow up with Oncology as directed documented in this encounter [facility] 11-27-2024 Telephone encount er Note Upon review of chart, saw that pt is scheduled for appt 01/15 w/Dr Craig. Call made to pt to assist w/moving up appt. The offered appts were too early in the AM so he declined scheduling. Offered 01/01 at 1600 w/Dr ULLOA and he declined that appt as well. He stated he would see if he could 'make arrangements' and call back tomorrow. Pineda Parkinson RN [facility] 11-27-2024 Miscellaneous Notes Formattin g of this note might be different from the original. Upon review of chart, saw that pt is scheduled for appt 01/15 w/Dr Craig. Call made to pt to assist w/moving up appt. The offered appts were too early in the AM so he declined scheduling. Offered 01/01 at 1600 w/Dr ULLOA and he declined that appt as well. He stated he would see if he could 'make arrangements' and call back tomorrow. Pineda Parkinson RN documented in this encounter [facility] 11-27-2024 Telephone encount er Note PT called to make appointment Scheduled by notes PT asked 01/15 at 1PM AM. [facility] 11-27-2024 Miscellaneous Notes Formattin g of this note might be different from the original. PT called to make appointment Scheduled by notes PT asked 01/15 at 1PM AM. Pt id'd by name and . Explained to pt the reason for call was to schedule appt. Pt stated he was not sure whether or not he needed appt and stated he will check w/his oncologist tomorrow. Pt accepted contact info and stated he will call back. Holding 12/[address] CRAIG. please make sure EPIC is updated. Pineda Parkinson RN documented in this encounter [facility] 11-26-2024 Telephone encount er Note Pt id'd by name and . Explained to pt the reason for call was to schedule appt. Pt stated he was not sure whether or not he needed appt and stated he will check w/his oncologist tomorrow. Pt accepted contact info and stated he will call back. Holding 12/[address] CRAIG. please make sure EPIC is updated. Pineda Parkinson RN [facility] 11-16-2024 Miscellaneous Notes Formattin g of this note might be different from the original. Patient's /HIPMarla KILGORE, called office and stated that she needed to cancel patient's appointment for 12/20/2024 at 1:00 pm with SE due to patient being in hospital. Appointment was cancelled. documented in this encounter [facility] 11-16-2024 Telephone encount er Note Patient's /HIPMarla KILGORE, called office and stated that she needed to cancel patient's appointment for 12/20/2024 at 1:00 pm with SE due to patient being in hospital. Appointment was cancelled. [facility] 11-01-2024 History of Presen t illness Narrative Subjective Patient ID: Penny Ordaz is a 64 y.o. male. He presents today for concerns regarding his driving and memory. He was driving to [employer] with his and was driving erratically. A concerned citizen called the police who met him at [employer]. They did check him to see if [...] to drive. He was referred to a material lister by Dr. Whitfield but a material lister was not in his network. He needs a referral to a new material lister. He thinks it was because of the [...] drift. Coordination: Romberg sign negative. Coordination normal. Gzvvni-Emis-Frxsyk Test and Heel to Hay Test normal. [...] all orders for this visit: Primary myelofibrosis ([facility]) Follow-up with oncology as directed. Pleural effusion, right - X-ray chest 2 views; Future Check chest x-ray to see if he still has a pleural effusion. Would need to go see pulmonology in [place] or [facility]. I asked him to check his network [...] appears relatively intact. documented in this encounter [facility] 10-04-2024 History of Presen t illness Narrative [...] said he can see a doctor in [place] that does take his insurance if he is not able to continue to follow with Dr. Stuart. Lab orders, treatment calendar and AVS provided to patient. He verbalized understanding to instructions. Discharged in stable condition to private vehicle. documented in this encounter [facility] 10-04-2024 History of Presen t illness Narrative Images from the original note were not included. [facility] Bryan Perales M.D. Chantel Maya M.D. Kei Collazo M.D. Wendi Pang M.D. Juliette Ronquillo, TARIFF COMPILING CLERK-SENIOR DATASTAGE DEVELOPER Diann Patel, TARIFF COMPILING CLERK-SENIOR DATASTAGE DEVELOPER Concepción Marks, TARIFF COMPILING CLERK-SENIOR DATASTAGE DEVELOPER Valeria Valente, TARIFF COMPILING CLERK-SENIOR DATASTAGE DEVELOPER Rasheeda Mijares, TARIFF COMPILING CLERK-SENIOR DATASTAGE DEVELOPER Keyur Stuart M.D. Vijay Carrington M.D. Trae Lazar M.D. Gillian Garza M.D. Joceline Larry, TARIFF COMPILING CLERK-SENIOR DATASTAGE DEVELOPER Laisha Brooks, TARIFF COMPILING CLERK-SENIOR DATASTAGE DEVELOPER Ritu Dooley, TARIFF COMPILING CLERK-SENIOR DATASTAGE DEVELOPER Kimannette Tavarez APRN-CAYLA Tyson APRN-[facility] PROGRESS NOTE 10/04/24 Subjective/Interval [...] is unable to get blood draws from [facility]. Oncology History No history exists. Objective [...] him consider bone marrow transplant evaluation at [facility]. Transfuse to keep hemoglobin above 7. The patient told me due to his insurance change, he may have to establish care with Hematology at [facility]. Keyur Stuart M.D. [facility] [address] [place] [address] documented in this encounter [facility] 10-04-2024 Instructions Keyur Stuart MD - 10/04/2024 10:30 AM EDT Print out order for CBC epo. F/u in 3 months. [facility] 09-26-2024 Procedure note [facility] enter 09-21-2024 History of Present illness Narrative [...] Exam Vitals reviewed. Exam conducted with a dye and chemical coordinator present (Jimenez Pritchett MS3). Constitutional: General: He [...] anemia. His saw the GI specialist in [place] and would like to go there. documented in this encounter [facility] 09-12-2024 Miscellaneous Notes Seasoner called and left voicemail for patient to call office to schedule a HDFU. CXR in 4 to 6 weeks then follow up with any provider in [place] per [facility]. documented in this encounter [facility] 09-12-2024 Telephone encounter Note Seasoner called and left voicemail for patient to call office to schedule a HDFU. CXR in 4 to 6 weeks then follow up with any provider in [place] per [facility]. [facility] [employer] [facility] 09-10-2024 Note IR BX BONE MARROW SN GL OR MULT Pre-procedure diagnosis: See history below Post-procedure diagnosis: Same as above Assistants/resident: See the technologist's notes above Consent/pre-procedure evaluation: See below. [place] protocol timeout verification performed. Estimated blood loss: [...] of intravenous Versed, and 30 minutes of [id number] intraservice time for intravenous conscious sedation by [...] of material was deemed sufficient by the time study technologist. Finalized by Jonathan Sousa MD on 09/10/2024 2:03 PM [facility] 09-10-2024 Note IR THORACENTESIS W G UIDE RT Pre-procedure diagnosis: See history below Post-procedure diagnosis: Same as above Assistants/resident: See the technologist's notes above Consent/pre-procedure evaluation: See below. [place] protocol timeout verification performed. Estimated blood loss: [...] Jonathan Sousa MD on 09/10/2024 2:00 PM [facility] 09-08-2024 Miscellaneous Notes Contract: 91 New AM consult for Right pleural effusion concern for malignancy To be paged out at 7am Contract: [address] Montelongo on his cell phone- consult information given to documented in this encounter [facility] 09-08-2024 Telephone encounter Note Contract: 91 New AM consult for Right pleural effusion concern for malignancy To be paged out at 7am [facility] 09-08-2024 Telephone encounter Note Contract: [address] Montelongo on his cell phone- consult information given to [facility] 09-06-2024 Miscellaneous Notes Contract: 198 re Critical Lab Call was connected to Dr Mina alberto documented in this encounter [facility] 09-06-2024 Telephone encounter Note Contract: 198 re Critical Lab [facility] 09-06-2024 Telephone encounter Note Call was connected to Dr Ward cell [facility] 09-06-2024 History of Present illness Narrative Subjective [...] Exam Vitals reviewed. Exam conducted with a dye and chemical coordinator present ( and Jimenez Pritchett MS3). Constitutional: [...] Future He scored a 27 on the [place] so I doubt he has any significant [...] but he declined. documented in this encounter [facility] 07-23-2024 Miscellaneous Notes Patient's called and stated that she feels patient is getting some dementia. He is getting violent in the evening and forgetful. She was wondering if there could be a referral for him to see Dr. Dai He needs an appointment here 1st to be screen for dementia documented in this encounter [facility] 07-23-2024 Telephone encounter Note Patient's called and stated that she feels patient is getting some dementia. He is getting violent in the evening and forgetful. She was wondering if there could be a referral for him to see Dr. Dai [facility] 07-23-2024 Telephone encounter Note He needs an appointment here 1st to be screen for dementia [facility] 06-25-2024 History of Present illness Narrative Subjective [...] ear normal. Nose: Nose normal. Mouth/Throat: Lips: [place]. Mouth: Mucous membranes are moist. Dentition: Abnormal [...] in 1 year. documented in this encounter [facility] Evaluation note Diagnosis Welcome to [...] malignant neoplasms, colon [facility] assessment information available [facility] Work Phone: Evaluation note* Diagnosis Severe anemia- Primary [facility] Diagnosis 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 anemia Lymphadenopathy, inguinal Splenomegaly [facility] Diagnosis 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 Pleural effusion, right Unspecified pleural effusion Memory loss [facility] Diagnosis Pleural effusion, right- Primary Unspecified pleural effusion Primary myelofibrosis (CMS-HCC) Myelofibrosis with myeloid metaplasia [facility] [...] section and content) DATE CREATED AUTHOR 01/04/2018 [facility] DATE CREATED AUTHOR AUTHOR'S ORGANIZ ATION 01/10/2018 [facility] DATE CREATED AUTHOR AUTHOR'S ORGANIZ ATION 09/19/2020 [facility] DATE CREATED AUTHOR AUTHOR'S ORGANIZ ATION 09/22/2024 [facility] DATE CREATED AUTHOR AUTHOR'S ORGANIZ ATION 2024 [facility] DATE CREATED AUTHOR AUTHOR'S ORGANIZ ATION 10/14/2024 [facility] DATE CREATED AUTHOR AUTHOR'S ORGANIZ ATION 11/03/2024 [facility] DATE CREATED AUTHOR AUTHOR'S ORGANIZ ATION 11/28/2024 [facility] Care Teams (unrecognized sec tion and content) Optoelectronic Technician Relationship Specialty Start Date End Date Dewey Ward DO [address] [facility], [place] [address] PCP - General Family Medicine 10/10/23 Optoelectronic Technician Relationship Specialty Start Date End Date Dewey Ward DO [address], [place] [address] PCP - General Family Medicine 10/10/23 Optoelectronic Technician Relationship Specialty Start Date End Date Dewey Ward DO [address], [place] [address] PCP - General Family Medicine 10/10/23 Optoelectronic Technician Relationship Specialty Start Date End Date Dewey Ward DO [address], [place] [address] PCP - General Family Medicine 10/10/23 Optoelectronic Technician Relationship Specialty Start Date End Date Dewey Ward DO [address], [place] [address] PCP - General Family Medicine 10/10/23 Optoelectronic Technician Relationship Specialty Start Date End Date Dewey Ward DO [address], [place] [address] PCP - General Family Medicine 09/07/24 Optoelectronic Technician Relationship Specialty Start Date End Date LuciathomasDewey lanier [address], [place] [address] PCP - General Family Medicine 09/07/24 Team [...] Attending Provider Active Start: September 26, 2024 Optoelectronic Technician Relationship Specialty Start Date End Date Dewey Ward [address], [place] [address] PCP - General Family Medicine 09/07/24 Optoelectronic Technician Relationship Specialty Start Date End Date LuciaalyPatrickDewey Radha [address], [place] [address] PCP - General Family Medicine 09/07/24 Optoelectronic Technician Relationship Specialty Start Date End Date LuciaalyPatrickDewey Radha [address], [place] [address] PCP - General Family Medicine 09/07/24 Team Status: Inactive Member Role Status Dates Martita Hopper MD Attending Provider Active St art: October 09, 2024 End: October 09, 2024 Optoelectronic Technician Relationship Specialty Start Date End Date Dewey Ward DO [address], [place] [address] PCP - General Family Medicine 09/07/24 Reason for Visit (unrecogniz ed section and content) Reason Comments Follow-up Reason Comments Referral Reason Onset Date Comments CRITICAL LAB 09/06/2024 Reason Onset Date Comments Consult 09/08/2024 Right pleural ef fusion concern for malignancy Reason [facility] Reason Comments discuss oncology Reason Comments Follow-up 1 month Goals (unrecognized section and content) Goals may [...] BE BASED ON THE PRIMARY CLINICAL RECORDS. [facility] provides no warranty or guarantee of the accuracy or completeness of information in this document.
== END 2024-12-06 08:03 | disposition home or self-care (01) ==
LOC: RAD 08:03
PROVIDERS: PCP Family Medicine; Visit Provider Family Medicine
DX: J90 Pleural effusion, not elsewhere classified (principal)
CPT/HCPCS: 71046

== ENCOUNTER 2024-12-12 07:36 | Outpatient (RCR) | payer OTHER, SELFPAY ==
[2024-11-16 10:20] VITALS: BP 130/63; PULSE 85; TEMP 36.9; O2SAT 95
[2024-11-16] MEDS: ACETAMINOPHEN 325 MG TABLET 650 MG PO (10:30)
[2024-11-16] MEDS: DIPHENHYDRAMINE HCL 25 MG CAPSULE PO (10:30)
[2024-11-16] MEDS: 0.9 % SODIUM CHLORIDE 250 ML 10 ML IV (10:30)
[2024-11-16 10:38] VITALS: BP 130/65; PULSE 85; TEMP 36.9; O2SAT 95
--- NOTE | 2024-11-16 10:47 | PC.NURSE ---
1039 1st unit of prbc's initiated. Patient is NPO for CT scan this afternoon. tylenol and benadryl po with sip of water
[2024-11-16 10:54] VITALS: BP 128/64; PULSE 79; TEMP 36.8; O2SAT 93
--- NOTE | 2024-11-16 11:04 | PC.NURSE ---
1055 Tolerating transfusion without any s/s of rxn. rate increased to 240 ml hr
[2024-11-16 11:54] VITALS: BP 123/62; PULSE 88; TEMP 36.7; O2SAT 91
[2024-11-16 12:40] VITALS: BP 119/71; PULSE 71; TEMP 36.8
[2024-11-16 12:42] VITALS: BP 120/71; TEMP 35.5; O2SAT 96
[2024-11-27 11:28] VITALS: BP 151/69; PULSE 82; TEMP 36.1; O2SAT 94
[2024-11-27 11:43] LABS: Mean Corpuscular Hemoglobin 30.5 pg (25.9-34.0); Mean Corpuscular Volume 92.4 fL (80.0-94.0); Mean Platelet Volume 10.6 fL (9.5-13.5); Platelet Count 281 10^3/uL (150-450); Red Blood Count 2.23 10^6/uL (4.70-6.10); Red Cell Distribution Width 22.5 % (11.0-15.0); White Blood Count 5.4 10^3/uL (4.0-11.0)
[2024-11-27 11:47] LABS: Hematocrit 20.6 % (42.0-54.0); Hemoglobin 6.8 g/dL (14.0-18.0)
[2024-11-27 12:23] LABS: Lymphocytes Absolute Manual 0.54 10^3/uL (1.20-3.80); Segmented Neut Absolute Manual 4.42 10^3/uL (1.4-6.5)
[2024-11-27 12:24] LABS: Basophils Abs Manual 0.16 10^3/uL (0.00-0.10); Myelocytes Absolute Manual 0.05
[2024-11-27] MEDS: EPOETIN ALFA-EPBX 20,000 UNIT/ML VIAL 40000 UNIT SUBQ (12:26)
[2024-11-27 12:27] LABS: Anisocytosis 2+
[2024-11-27 12:28] LABS: Band Neutrophils Absolute 0.1 10^3/uL (0.0-0.3)
[2024-11-28] VITALS (7 sets, daily range): BP systolic 126–158; BP diastolic 69–78; PULSE 82–96; TEMP 36.3–36.8; O2SAT 93–95
[2024-11-28] MEDS: 0.9 % SODIUM CHLORIDE 250 ML 25 ML IV (11:59)
[2024-11-28] MEDS: ACETAMINOPHEN 325 MG TABLET 650 MG PO (12:29)
[2024-11-28] MEDS: DIPHENHYDRAMINE HCL 25 MG CAPSULE PO (12:30)
[2024-12-04 13:05] VITALS: BP 161/67; PULSE 82; TEMP 36.2; O2SAT 94
--- NOTE | 2024-12-04 13:12 | PC.NURSE ---
Labs drawn per labor delivery specialist at this time. Patient tolerated well.
[2024-12-04 13:19] LABS: Hemoglobin 7.7 g/dL (14.0-18.0); Mean Corpuscular Hemoglobin 30.7 pg (25.9-34.0); Mean Corpuscular Volume 92.8 fL (80.0-94.0); Mean Platelet Volume 11.9 fL (9.5-13.5); Platelet Count 246 10^3/uL (150-450); Red Blood Count 2.51 10^6/uL (4.70-6.10); Red Cell Distribution Width 22.4 % (11.0-15.0); White Blood Count 5.9 10^3/uL (4.0-11.0)
[2024-12-04 13:26] LABS: Hematocrit 23.3 % (42.0-54.0)
[2024-12-04] MEDS: EPOETIN ALFA-EPBX 20,000 UNIT/ML VIAL 40000 UNIT SUBQ (13:40)
[2024-12-04 13:45] VITALS: BP 141/67; PULSE 82; TEMP 36.2; O2SAT 94
[2024-12-04 13:58] LABS: Band Neutrophils Absolute 0.2 10^3/uL (0.0-0.3); Basophils Abs Manual 0.11 10^3/uL (0.00-0.10); Blast Absolute Manual 0.23; Lymphocytes Absolute Manual 1.23 10^3/uL (1.20-3.80); Metamyelocytes Absolute Manual 0.11; Monocytes Absolute Manual 0.23 10^3/uL (0.30-0.80); Segmented Neut Absolute Manual 3.77 10^3/uL (1.4-6.5)
[2024-12-04 13:59] LABS: Anisocytosis 2+
[2024-12-11 12:55] VITALS: BP 153/70; PULSE 90; TEMP 36.5; O2SAT 98
[2024-12-11 13:08] LABS: Hemoglobin 7.1 g/dL (14.0-18.0); Mean Corpuscular HGB Conc 33.5 g/dL (29.9-35.2); Mean Corpuscular Hemoglobin 30.9 pg (25.9-34.0); Mean Corpuscular Volume 92.2 fL (80.0-94.0); Mean Platelet Volume 9.5 fL (9.5-13.5); Platelet Count 167 10^3/uL (150-450); Red Cell Distribution Width 23.1 % (11.0-15.0); White Blood Count 5.1 10^3/uL (4.0-11.0)
[2024-12-11 13:13] LABS: Hematocrit 21.2 % (42.0-54.0)
[2024-12-11 13:20] LABS: Anion Gap 14.7; Calcium 9.1 mg/dL (8.5-10.1); Carbon Dioxide 28.6 mmol/L (21.0-32.0); Chloride 103 mmol/L (98-107); Estimated GFR (African America >60 (>=60 mL/min/1.73m^2); Estimated GFR (Non-African Ame >60 (>=60 mL/min/1.73m^2); Glucose 108 mg/dL (74-106); Potassium 4.3 mmol/L (3.5-5.1); Sodium 142 mmol/L (136-145)
[2024-12-11 13:26] LABS: Giant Platelets 1+; Lymphocytes Absolute Manual 1.12 10^3/uL (1.20-3.80); Metamyelocytes Absolute Manual 0.15; Segmented Neut Absolute Manual 3.51 10^3/uL (1.4-6.5)
[2024-12-11 13:28] LABS: Anisocytosis 3+; Ovalocytes 1+
[2024-12-11] MEDS: EPOETIN ALFA-EPBX 20,000 UNIT/ML VIAL 40000 UNIT SUBQ (13:58)
[2024-12-12 11:28] VITALS: BP 145/71; PULSE 91; TEMP 36.8; O2SAT 97
[2024-12-12] MEDS: DIPHENHYDRAMINE HCL 25 MG CAPSULE PO (11:30)
[2024-12-12] MEDS: ACETAMINOPHEN 325 MG TABLET 650 MG PO (11:30)
[2024-12-12] MEDS: 0.9 % SODIUM CHLORIDE 250 ML 25 ML IV (11:31)
[2024-12-12 11:33] VITALS: BP 145/71; PULSE 95; TEMP 36.6; O2SAT 98
--- NOTE | 2024-12-12 11:36 | PC.NURSE ---
Transfusion initiated. instructed on s/s of reaction and to notify staff. verbalizes understanding
[2024-12-12 11:50] VITALS: BP 129/72; PULSE 78; TEMP 36.7; O2SAT 98
[2024-12-12 12:50] VITALS: BP 130/70; PULSE 81; TEMP 36.6
[2024-12-12 13:10] VITALS: BP 130/71; PULSE 76; TEMP 36.6; O2SAT 98
== END 2024-12-13 08:19 | disposition home or self-care (01) ==
LOC: HEMC 07:36
PROVIDERS: PCP Family Medicine; Visit Provider Internal Medicine Hematology & Oncology
DX: R16.1 Splenomegaly, not elsewhere classified (principal); D75.81 Myelofibrosis; D46.21 Refractory anemia with excess of blasts 1; J90 Pleural effusion, not elsewhere classified; Z87.891 Personal history of nicotine dependence; C85.93 Non-Hodgkin lymphoma, unspecified, intra-abdominal lymph nodes; L03.115 Cellulitis of right lower limb
CPT/HCPCS: 36415; 36430; 71260; 74177; 80048; 85007; 85027; 86850; 86900; 86901; 86923; 96372; G0463; P9038; Q5106; Q9967

== ENCOUNTER 2025-01-08 08:14 | Outpatient (RCR) | payer OTHER, SELFPAY ==
[2024-12-18 12:56] VITALS: BP 129/69; PULSE 87; TEMP 36.6; O2SAT 98
[2024-12-18 13:03] LABS: Mean Corpuscular HGB Conc 33.5 g/dL (29.9-35.2); Mean Corpuscular Hemoglobin 31.1 pg (25.9-34.0); Mean Corpuscular Volume 92.9 fL (80.0-94.0); Mean Platelet Volume 11.2 fL (9.5-13.5); Platelet Count 133 10^3/uL (150-450); Red Blood Count 2.25 10^6/uL (4.70-6.10); Red Cell Distribution Width 22.8 % (11.0-15.0); White Blood Count 4.6 10^3/uL (4.0-11.0)
[2024-12-18 13:10] LABS: Hematocrit 20.9 % (42.0-54.0)
--- NOTE | 2024-12-18 13:16 | PC.NURSE ---
Dr. Hopper notified of Hgb and Hct.
[2024-12-18 13:28] LABS: Band Neutrophils Absolute 0.2 10^3/uL (0.0-0.3); Basophils Abs Manual 0.04 10^3/uL (0.00-0.10); Blast Absolute Manual 0.09; Lymphocytes Absolute Manual 1.01 10^3/uL (1.20-3.80); Monocytes Absolute Manual 0.41 10^3/uL (0.30-0.80); Segmented Neut Absolute Manual 2.85 10^3/uL (1.4-6.5)
[2024-12-18 13:29] LABS: Anisocytosis 3+
[2024-12-18] MEDS: EPOETIN ALFA 20,000 UNIT/2 ML VIAL 40000 UNIT SUBQ (13:30)
[2024-12-19 12:29] VITALS: BP 131/61; PULSE 91; TEMP 36.8; O2SAT 97
--- NOTE | 2024-12-19 12:31 | PC.NURSE ---
Here for 1 unit of PRBC transfusion. Alert oriented, heart tones strong and regular, lungs clear posteriorly to auscultation. Instructed on s/s of reaction ie itching shortness of breath, chest flank or back pain. educated on notiflying staff for any of these symptoms. verbalizes understanding
[2024-12-19] MEDS: 0.9 % SODIUM CHLORIDE 250 ML 40 ML IV (12:35)
[2024-12-19] MEDS: DIPHENHYDRAMINE HCL 25 MG CAPSULE PO (12:35)
[2024-12-19] MEDS: ACETAMINOPHEN 325 MG TABLET 650 MG PO (12:35)
[2024-12-19 12:39] VITALS: BP 131/61; PULSE 91; TEMP 36.8; O2SAT 91
[2024-12-19 12:52] VITALS: BP 115/66; PULSE 82; TEMP 36.8; O2SAT 95
--- NOTE | 2024-12-19 13:10 | PC.NURSE ---
tolerating transfusion without any issues.
--- NOTE | 2024-12-19 13:12 | PC.NURSE ---
Pt. tolerating PRBC without s&s of transfusion reactions. VSS
[2024-12-19 13:35] VITALS: BP 127/69; PULSE 67; TEMP 36.6; O2SAT 95
--- NOTE | 2024-12-19 13:37 | PC.NURSE ---
Up to bathroom to void, gait steady. Returns to chair. VSS. Denies c/o.
[2024-12-19 14:00] VITALS: BP 123/69; PULSE 76; TEMP 36.8; O2SAT 96
[2024-12-25 13:00] VITALS: BP 138/68; PULSE 94; TEMP 36.3; O2SAT 97
[2024-12-25 13:10] LABS: Mean Corpuscular HGB Conc 33.3 g/dL (29.9-35.2); Mean Corpuscular Hemoglobin 30.2 pg (25.9-34.0); Mean Corpuscular Volume 90.5 fL (80.0-94.0); Mean Platelet Volume 10.2 fL (9.5-13.5); Platelet Count 158 10^3/uL (150-450); Red Blood Count 2.32 10^6/uL (4.70-6.10); Red Cell Distribution Width 23.1 % (11.0-15.0)
[2024-12-25 13:48] LABS: Band Neutrophils Absolute 0.5 10^3/uL (0.0-0.3); Metamyelocytes Absolute Manual 0.15; Monocytes Absolute Manual 0.35 10^3/uL (0.30-0.80); Segmented Neut Absolute Manual 2.75 10^3/uL (1.4-6.5)
[2024-12-25 13:49] LABS: Anisocytosis 1+
[2024-12-25] MEDS: EPOETIN ALFA 20,000 UNIT/2 ML VIAL 60000 UNIT SUBQ (14:38)
--- NOTE | 2024-12-27 07:56 | PC.NURSE ---
Labs drawn with IV start.
[2024-12-27] MEDS: 0.9 % SODIUM CHLORIDE 250 ML 40 ML IV (08:00)
[2024-12-27] MEDS: ACETAMINOPHEN 325 MG TABLET 650 MG PO (08:00)
[2024-12-27] MEDS: DIPHENHYDRAMINE HCL 25 MG CAPSULE PO (08:00)
[2024-12-27 08:04] VITALS: BP 143/68; PULSE 107; TEMP 36.8; O2SAT 94
[2024-12-27 08:18] VITALS: BP 121/63; PULSE 91; TEMP 36.8
--- NOTE | 2024-12-27 08:20 | PC.NURSE ---
tolerating transfusion with no s/s of rxn, rate increased to 240 ml hr.
[2024-12-27 08:22] VITALS: BP 119/62; PULSE 82; TEMP 36.5; O2SAT 96
--- NOTE | 2024-12-27 09:11 | PC.NURSE ---
tolerating prbc's without any s/s of reaction. offers no complaints. reclined in chair watching videos.
--- NOTE | 2024-12-27 09:32 | PC.NURSE ---
0931 PRBC's infused, ns flush began.
[2024-12-27 09:33] VITALS: BP 119/67; PULSE 77; TEMP 36.1; O2SAT 97
[2024-12-30 00:07] LABS: Copper Level 120 ug/dL (69-132); Zinc Level 76 ug/dL (44-115)
[2025-01-01 13:11] VITALS: BP 122/53; PULSE 90; TEMP 36.8; O2SAT 98
[2025-01-01 13:31] LABS: Hemoglobin 7.3 g/dL (14.0-18.0); Mean Corpuscular HGB Conc 33.3 g/dL (29.9-35.2); Mean Corpuscular Volume 90.1 fL (80.0-94.0); Mean Platelet Volume 11.9 fL (9.5-13.5); Platelet Count 196 10^3/uL (150-450); Red Blood Count 2.43 10^6/uL (4.70-6.10); Red Cell Distribution Width 22.7 % (11.0-15.0); White Blood Count 4.5 10^3/uL (4.0-11.0)
[2025-01-01 13:34] LABS: Hematocrit 21.9 % (42.0-54.0)
[2025-01-01] MEDS: EPOETIN ALFA 20,000 UNIT/2 ML VIAL 60000 UNIT SUBQ (13:45)
[2025-01-01 13:54] LABS: Anisocytosis 1+; Band Neutrophils Absolute 0.5 10^3/uL (0.0-0.3); Blast Absolute Manual 0.22; Eosinophils Absolute Manual 0.04 10^3/uL (0.00-0.70); Lymphocytes Absolute Manual 1.03 10^3/uL (1.20-3.80); Metamyelocytes Absolute Manual 0.09; Monocytes Absolute Manual 0.18 10^3/uL (0.30-0.80); Segmented Neut Absolute Manual 2.38 10^3/uL (1.4-6.5)
[2025-01-02 02:07] LABS: Vitamin B1 (Thiamine), Blood 75.7 nmol/L (66.5-200.0)
[2025-01-03 01:07] LABS: Vitamin B6, Plasma 2.6 ug/L (3.4-65.2)
[2025-01-08 14:36] LABS: Hemoglobin 7.5 g/dL (14.0-18.0); Mean Corpuscular HGB Conc 34.7 g/dL (29.9-35.2); Mean Corpuscular Hemoglobin 31.3 pg (25.9-34.0); Mean Platelet Volume 11.4 fL (9.5-13.5); Platelet Count 172 10^3/uL (150-450); Red Cell Distribution Width 23.7 % (11.0-15.0); White Blood Count 5.8 10^3/uL (4.0-11.0)
[2025-01-08 14:42] LABS: Hematocrit 21.6 % (42.0-54.0)
[2025-01-08 14:50] LABS: Alanine Aminotransferase 25 U/L (16-63); Albumin Level 4.1 g/dL (3.4-5.0); Alkaline Phosphatase 89 U/L (46-116); Aspartate Amino Transferase 24 U/L (15-37); BUN Creatinine Ratio 18.8; Bilirubin Total 0.7 mg/dL (0.2-1.0); Calcium 9.6 mg/dL (8.5-10.1); Carbon Dioxide 27.7 mmol/L (21.0-32.0); Chloride 102 mmol/L (98-107); Estimated GFR (African America >60 (>=60 mL/min/1.73m^2); Estimated GFR (Non-African Ame >60 (>=60 mL/min/1.73m^2); Globulin 4.2 g/dL; Glucose 114 mg/dL (74-106); Potassium 5.7 mmol/L (3.5-5.1); Sodium 141 mmol/L (136-145); Total Protein 8.3 g/dL (6.4-8.2)
[2025-01-08 14:58] VITALS: BP 112/59; PULSE 99; TEMP 37.4; O2SAT 96
[2025-01-08] MEDS: EPOETIN ALFA 20,000 UNIT/2 ML VIAL 60000 UNIT SUBQ (15:01)
[2025-01-08 15:04] LABS: Band Neutrophils Absolute 0.3 10^3/uL (0.0-0.3); Basophils Abs Manual 0.17 10^3/uL (0.00-0.10); Blast Absolute Manual 0.29; Monocytes Absolute Manual 0.34 10^3/uL (0.30-0.80); Segmented Neut Absolute Manual 3.13 10^3/uL (1.4-6.5)
[2025-01-08 15:05] LABS: Macrocytosis 1+
[2025-01-08 15:06] LABS: Anisocytosis 1+
== END 2025-01-14 23:59 | disposition home or self-care (01) ==
LOC: HEMC 08:14
PROVIDERS: PCP Family Medicine; Visit Provider Internal Medicine Hematology & Oncology
DX: D46.21 Refractory anemia with excess of blasts 1 (principal); D75.81 Myelofibrosis; D46.9 Myelodysplastic syndrome, unspecified; Z87.891 Personal history of nicotine dependence; C85.93 Non-Hodgkin lymphoma, unspecified, intra-abdominal lymph nodes; R16.1 Splenomegaly, not elsewhere classified; F10.90 Alcohol use, unspecified, uncomplicated; J90 Pleural effusion, not elsewhere classified; D68.8 Other specified coagulation defects
CPT/HCPCS: 36415; 36430; 80053; 82525; 84207; 84425; 84630; 85007; 85027; 86850; 86900; 86901; 86923; 96372; G0463; J0885; P9038

== ENCOUNTER 2025-02-12 07:14 | Outpatient (RCR) | payer OTHER, SELFPAY ==
[2025-01-15 07:58] VITALS: BP 109/59; PULSE 89; TEMP 36.3; O2SAT 99
[2025-01-15 08:06] LABS: Mean Corpuscular HGB Conc 33.7 g/dL (29.9-35.2); Mean Corpuscular Hemoglobin 31.0 pg (25.9-34.0); Mean Corpuscular Volume 91.9 fL (80.0-94.0); Platelet Count 135 10^3/uL (150-450); Red Blood Count 2.10 10^6/uL (4.70-6.10); White Blood Count 5.5 10^3/uL (4.0-11.0)
[2025-01-15 08:08] LABS: Hematocrit 19.3 % (42.0-54.0); Hemoglobin 6.5 g/dL (14.0-18.0)
[2025-01-15 08:30] LABS: Anisocytosis 1+; Band Neutrophils Absolute 0.6 10^3/uL (0.0-0.3); Basophils Abs Manual 0.16 10^3/uL (0.00-0.10); Basophils Percent Manual 3.0 % (0.2-2.0); Blast % Manual 1.0; Blast Absolute Manual 0.05; Eosinophils Absolute Manual 0.00 10^3/uL (0.00-0.70); Eosinophils Percent Manual 0.0 % (0.9-7.0); Lymphocytes Absolute Manual 0.82 10^3/uL (1.20-3.80); Lymphocytes Percent Manual 15.0 % (20.5-60.0); Metamyelocytes Absolute Manual 0.11; Monocytes Absolute Manual 0.11 10^3/uL (0.30-0.80); Monocytes Percent Manual 2.0 % (1.7-12.0); Segmented Neut Absolute Manual 3.68 10^3/uL (1.4-6.5); Segmented Neutrophils % Manual 67.0 (43.0-75.0)
[2025-01-15] MEDS: EPOETIN ALFA 20,000 UNIT/2 ML VIAL 60000 UNIT SUBQ (08:30)
[2025-01-15 08:31] LABS: Alanine Aminotransferase 22 U/L (16-63); Albumin Globulin Ratio 1.0; Albumin Level 3.9 g/dL (3.4-5.0); Alkaline Phosphatase 83 U/L (46-116); Anion Gap 14.4; Aspartate Amino Transferase 22 U/L (15-37); Blood Urea Nitrogen 14.0 mg/dL (7.0-18.0); Calcium 8.8 mg/dL (8.5-10.1); Carbon Dioxide 27.2 mmol/L (21.0-32.0); Chloride 102 mmol/L (98-107); Estimated GFR (African America >60 (>=60 mL/min/1.73m^2); Estimated GFR (Non-African Ame >60 (>=60 mL/min/1.73m^2); Globulin 4.0 g/dL; Glucose 122 mg/dL (74-106); Potassium 4.6 mmol/L (3.5-5.1); Sodium 139 mmol/L (136-145); Total Protein 7.9 g/dL (6.4-8.2)
[2025-01-15] MEDS: LUSPATERCEPT AAMT 68.9 MG SQ (08:31)
[2025-01-16 11:58] VITALS: BP 111/62; PULSE 92; TEMP 37.1; O2SAT 98
[2025-01-16] MEDS: 0.9 % SODIUM CHLORIDE 250 ML 10 ML IV (12:15)
[2025-01-16] MEDS: ACETAMINOPHEN 325 MG TABLET 650 MG PO (12:16)
[2025-01-16] MEDS: DIPHENHYDRAMINE HCL 25 MG CAPSULE PO (12:16)
[2025-01-16 12:19] VITALS: BP 111/62; PULSE 88; TEMP 37; O2SAT 99
[2025-01-16 12:34] VITALS: BP 102/52; PULSE 85; TEMP 36.8; O2SAT 93
--- NOTE | 2025-01-16 12:35 | PC.NURSE ---
Tolerating blood transfusion without s&s of adverse reaction. Denies need. VSS. IV site remains clear.
[2025-01-16 12:36] VITALS: BP 93/40; PULSE 85; TEMP 36.6; O2SAT 95
--- NOTE | 2025-01-16 12:55 | PC.NURSE ---
Tolerating prbc's without any s/s of reaction, watches tv feet reclined in recliner.
[2025-01-16 13:29] LABS: Ferritin 1250.0 ng/mL (26.0-388.0)
[2025-01-16 13:33] LABS: Iron 203.0 ug/dL (65.0-175.0); Percent Iron Saturation 68.1 %; Total Iron Binding Capacity 298.0 ug/dL (250.0-450.0)
[2025-01-16 13:47] VITALS: BP 111/51; PULSE 77; TEMP 36.6; O2SAT 97
[2025-01-17 15:08] LABS: Erythropoietin (EPO), Serum 2692.6 mIU/mL (2.6-18.5)
[2025-01-22 12:06] LABS: Hemoglobin 7.3 g/dL (14.0-18.0); Mean Corpuscular HGB Conc 34.0 g/dL (29.9-35.2); Mean Corpuscular Hemoglobin 31.5 pg (25.9-34.0); Mean Corpuscular Volume 92.7 fL (80.0-94.0); Platelet Count 175 10^3/uL (150-450); Red Blood Count 2.32 10^6/uL (4.70-6.10); White Blood Count 5.1 10^3/uL (4.0-11.0)
[2025-01-22 12:08] LABS: Hematocrit 21.5 % (42.0-54.0)
[2025-01-22 12:41] LABS: Eosinophils Absolute Manual 0.00 10^3/uL (0.00-0.70); Eosinophils Percent Manual 0.0 % (0.9-7.0)
[2025-01-22 12:52] LABS: Lymphocytes Absolute Manual 0.96 10^3/uL (1.20-3.80); Lymphocytes Percent Manual 19.0 % (20.5-60.0); Segmented Neut Absolute Manual 3.11 10^3/uL (1.4-6.5); Segmented Neutrophils % Manual 61.0 (43.0-75.0)
[2025-01-22 12:53] LABS: Band Neutrophils Absolute 0.2 10^3/uL (0.0-0.3); Basophils Abs Manual 0.05 10^3/uL (0.00-0.10); Basophils Percent Manual 1.0 % (0.2-2.0); Blast % Manual 4.0; Blast Absolute Manual 0.20; Metamyelocytes Absolute Manual 0.05; Monocytes Absolute Manual 0.30 10^3/uL (0.30-0.80); Monocytes Percent Manual 6.0 % (1.7-12.0); Myelocytes % Manual 4.0; Myelocytes Absolute Manual 0.20
[2025-01-22 12:55] LABS: Anisocytosis 1+
[2025-01-22 13:15] VITALS: BP 133/60; PULSE 90; TEMP 36.2; O2SAT 98
[2025-01-22] MEDS: EPOETIN ALFA 20,000 UNIT/2 ML VIAL 60000 UNIT SUBQ (13:18)
[2025-01-29 13:01] VITALS: BP 116/60; PULSE 85; TEMP 36.9; O2SAT 99
[2025-01-29 13:19] LABS: Mean Corpuscular HGB Conc 34.2 g/dL (29.9-35.2); Mean Corpuscular Hemoglobin 31.9 pg (25.9-34.0); Mean Corpuscular Volume 93.5 fL (80.0-94.0); Platelet Count 203 10^3/uL (150-450); Red Blood Count 2.16 10^6/uL (4.70-6.10); White Blood Count 6.0 10^3/uL (4.0-11.0)
[2025-01-29 13:22] LABS: Hematocrit 20.2 % (42.0-54.0); Hemoglobin 6.9 g/dL (14.0-18.0)
--- NOTE | 2025-01-29 13:44 | PC.NURSE ---
9410 Dr Hopper notified of HG/HCT results orders received. lab notified patient will receive 1 unit of irradiated prbc's. patient aware and agrees to stay for transfusion today.
--- NOTE | 2025-01-29 13:47 | PC.NURSE ---
Alert oriented, Lungs clear posteriorly to ausucltation. heart tones strong and regular
[2025-01-29 14:04] LABS: Segmented Neut Absolute Manual 3.48 10^3/uL (1.4-6.5); Segmented Neutrophils % Manual 58.0 (43.0-75.0)
[2025-01-29 14:05] LABS: Band Neutrophils Absolute 0.5 10^3/uL (0.0-0.3); Basophils Abs Manual 0.06 10^3/uL (0.00-0.10); Basophils Percent Manual 1.0 % (0.2-2.0); Blast % Manual 5.0; Blast Absolute Manual 0.30; Eosinophils Absolute Manual 0.00 10^3/uL (0.00-0.70); Eosinophils Percent Manual 0.0 % (0.9-7.0); Lymphocytes Absolute Manual 1.26 10^3/uL (1.20-3.80); Lymphocytes Percent Manual 21.0 % (20.5-60.0); Monocytes Absolute Manual 0.30 10^3/uL (0.30-0.80); Monocytes Percent Manual 5.0 % (1.7-12.0); Myelocytes % Manual 2.0; Myelocytes Absolute Manual 0.12
[2025-01-29 14:08] LABS: Anisocytosis 2+
[2025-01-29 14:09] LABS: Schistocytes 1+
[2025-01-29 14:41] VITALS: BP 104/59; PULSE 71; TEMP 36.9; O2SAT 95
[2025-01-29] MEDS: 0.9 % SODIUM CHLORIDE 250 ML 30 ML IV (14:51)
[2025-01-29] MEDS: EPOETIN ALFA 20,000 UNIT/2 ML VIAL 60000 UNIT SUBQ (14:51)
[2025-01-29 14:58] VITALS: BP 100/56; PULSE 64; TEMP 36.8
--- NOTE | 2025-01-29 15:07 | PC.NURSE ---
tolerating blood transfusion without any s/s of reaction. rate increased to 240 ml hr.
[2025-01-29 15:45] VITALS: BP 111/64; PULSE 78; TEMP 36.9
--- NOTE | 2025-01-29 16:00 | PC.NURSE ---
1440 patient declines tylenol and benadryl due to cost being charged explained reason for premedicating. patient declines both at this time
--- NOTE | 2025-01-29 16:21 | PC.NURSE ---
1610 prbc's infused ns flush began. 1615 Patient tolerated transfusion without any s/s of rxn. IV site dec'd coban applied. tolertated well. released ambulatory
[2025-02-04 10:11] LABS: Hemoglobin 7.8 g/dL (14.0-18.0); Mean Corpuscular HGB Conc 34.2 g/dL (29.9-35.2); Mean Corpuscular Hemoglobin 31.8 pg (25.9-34.0); Mean Corpuscular Volume 93.1 fL (80.0-94.0); Platelet Count 143 10^3/uL (150-450); Red Blood Count 2.45 10^6/uL (4.70-6.10); White Blood Count 5.3 10^3/uL (4.0-11.0)
[2025-02-04 10:13] LABS: Hematocrit 22.8 % (42.0-54.0)
[2025-02-04 10:28] LABS: Alanine Aminotransferase 34 U/L (16-63); Albumin Globulin Ratio 1.0; Albumin Level 4.0 g/dL (3.4-5.0); Alkaline Phosphatase 77 U/L (46-116); Anion Gap 13.4; Aspartate Amino Transferase 25 U/L (15-37); Blood Urea Nitrogen 20.0 mg/dL (7.0-18.0); Calcium 9.0 mg/dL (8.5-10.1); Carbon Dioxide 29.2 mmol/L (21.0-32.0); Chloride 103 mmol/L (98-107); Estimated GFR (African America >60 (>=60 mL/min/1.73m^2); Estimated GFR (Non-African Ame >60 (>=60 mL/min/1.73m^2); Globulin 4.2 g/dL; Glucose 128 mg/dL (74-106); Potassium 4.6 mmol/L (3.5-5.1); Sodium 141 mmol/L (136-145); Total Protein 8.2 g/dL (6.4-8.2)
[2025-02-04 10:36] LABS: Band Neutrophils Absolute 0.4 10^3/uL (0.0-0.3); Basophils Abs Manual 0.05 10^3/uL (0.00-0.10); Basophils Percent Manual 1.0 % (0.2-2.0); Blast % Manual 1.0; Blast Absolute Manual 0.05; Eosinophils Absolute Manual 0.05 10^3/uL (0.00-0.70); Eosinophils Percent Manual 1.0 % (0.9-7.0); Lymphocytes Absolute Manual 1.32 10^3/uL (1.20-3.80); Lymphocytes Percent Manual 25.0 % (20.5-60.0); Monocytes Absolute Manual 0.31 10^3/uL (0.30-0.80); Monocytes Percent Manual 6.0 % (1.7-12.0); Segmented Neut Absolute Manual 3.07 10^3/uL (1.4-6.5); Segmented Neutrophils % Manual 58.0 (43.0-75.0)
[2025-02-04 10:37] LABS: Anisocytosis 1+; Ovalocytes 1+; Poikilocytosis 1+; Schistocytes 1+
[2025-02-05 07:56] VITALS: BP 119/67; PULSE 85; TEMP 36.5; O2SAT 97
[2025-02-05] MEDS: LUSPATERCEPT AAMT 68.9 MG SQ (08:43)
[2025-02-05] MEDS: EPOETIN ALFA 20,000 UNIT/2 ML VIAL 60000 UNIT SUBQ (08:43)
[2025-02-12 08:39] VITALS: BP 126/64; PULSE 102; TEMP 36.8; O2SAT 96
[2025-02-12 08:54] LABS: Hemoglobin 7.1 g/dL (14.0-18.0); Mean Corpuscular HGB Conc 33.6 g/dL (29.9-35.2); Mean Corpuscular Hemoglobin 31.4 pg (25.9-34.0); Mean Corpuscular Volume 93.4 fL (80.0-94.0); Platelet Count 168 10^3/uL (150-450); Red Blood Count 2.26 10^6/uL (4.70-6.10); White Blood Count 7.1 10^3/uL (4.0-11.0)
[2025-02-12 08:56] LABS: Hematocrit 21.1 % (42.0-54.0)
--- NOTE | 2025-02-12 08:56 | PC.NURSE ---
Critical labs reported at this time hgb is 7.[address] Barker updated and is aware.
[2025-02-12] MEDS: EPOETIN ALFA 20,000 UNIT/2 ML VIAL 60000 UNIT SUBQ (09:17)
[2025-02-12 09:42] LABS: Band Neutrophils Absolute 0.5 10^3/uL (0.0-0.3); Segmented Neut Absolute Manual 5.11 10^3/uL (1.4-6.5); Segmented Neutrophils % Manual 72.0 (43.0-75.0)
[2025-02-12 09:43] LABS: Anisocytosis 3+; Basophils Abs Manual 0.14 10^3/uL (0.00-0.10); Basophils Percent Manual 2.0 % (0.2-2.0); Blast % Manual 3.0; Blast Absolute Manual 0.21; Eosinophils Absolute Manual 0.07 10^3/uL (0.00-0.70); Eosinophils Percent Manual 1.0 % (0.9-7.0); Lymphocytes Absolute Manual 0.63 10^3/uL (1.20-3.80); Lymphocytes Percent Manual 9.0 % (20.5-60.0); Metamyelocytes Absolute Manual 0.07; Monocytes Absolute Manual 0.28 10^3/uL (0.30-0.80); Monocytes Percent Manual 4.0 % (1.7-12.0); Myelocytes % Manual 1.0; Myelocytes Absolute Manual 0.07
== END 2025-02-14 23:59 | disposition home or self-care (01) ==
LOC: HEMC 07:14
PROVIDERS: PCP Family Medicine; Visit Provider Internal Medicine Hematology & Oncology
DX: D46.21 Refractory anemia with excess of blasts 1 (principal); D75.81 Myelofibrosis; D46.9 Myelodysplastic syndrome, unspecified; Z87.891 Personal history of nicotine dependence; C85.85 Other specified types of non-Hodgkin lymphoma, lymph nodes of inguinal region and lower limb; C85.93 Non-Hodgkin lymphoma, unspecified, intra-abdominal lymph nodes; R16.1 Splenomegaly, not elsewhere classified; J90 Pleural effusion, not elsewhere classified; L03.115 Cellulitis of right lower limb
CPT/HCPCS: 36415; 36430; 80053; 82668; 82728; 83540; 83550; 85007; 85025; 85027; 86850; 86900; 86901; 86923; 96372; G0463; J0885; J0896; P9038

== ENCOUNTER 2025-03-12 07:40 | Outpatient (RCR) | payer OTHER, SELFPAY ==
[2025-02-15 08:49] VITALS: BP 112/63; PULSE 79; TEMP 36.4; O2SAT 94
[2025-02-15 10:02] LABS: Mean Corpuscular HGB Conc 33.7 g/dL (29.9-35.2); Mean Corpuscular Hemoglobin 32.0 pg (25.9-34.0); Mean Corpuscular Volume 95.0 fL (80.0-94.0); Platelet Count 153 10^3/uL (150-450); Red Blood Count 2.00 10^6/uL (4.70-6.10); White Blood Count 6.2 10^3/uL (4.0-11.0)
[2025-02-15 10:05] LABS: Hematocrit 19.0 % (42.0-54.0); Hemoglobin 6.4 g/dL (14.0-18.0)
[2025-02-15] MEDS: ACETAMINOPHEN 325 MG TABLET 650 MG PO (10:14)
[2025-02-15] MEDS: 0.9 % SODIUM CHLORIDE 250 ML IV (10:15)
[2025-02-15] MEDS: DIPHENHYDRAMINE HCL 25 MG CAPSULE PO (10:15)
[2025-02-15 10:28] VITALS: BP 107/58; PULSE 66; TEMP 36.5; O2SAT 95
[2025-02-15 10:45] VITALS: BP 106/62; PULSE 64; TEMP 36.8; O2SAT 95
[2025-02-15 10:46] VITALS: BP 113/65; PULSE 64; TEMP 36.8; O2SAT 97
[2025-02-15 11:02] LABS: Band Neutrophils Absolute 0.3 10^3/uL (0.0-0.3); Basophils Abs Manual 0.18 10^3/uL (0.00-0.10); Basophils Percent Manual 3.0 % (0.2-2.0); Eosinophils Absolute Manual 0.00 10^3/uL (0.00-0.70); Eosinophils Percent Manual 0.0 % (0.9-7.0); Lymphocytes Absolute Manual 1.55 10^3/uL (1.20-3.80); Lymphocytes Percent Manual 25.0 % (20.5-60.0); Metamyelocytes Absolute Manual 0.12; Monocytes Absolute Manual 0.43 10^3/uL (0.30-0.80); Monocytes Percent Manual 7.0 % (1.7-12.0); Segmented Neut Absolute Manual 3.59 10^3/uL (1.4-6.5); Segmented Neutrophils % Manual 58.0 (43.0-75.0)
[2025-02-15 11:04] LABS: Anisocytosis 3+
[2025-02-15 11:46] VITALS: BP 130/60; PULSE 63; TEMP 36.7; O2SAT 98
[2025-02-19 08:51] VITALS: BP 131/55; PULSE 67; TEMP 36.8; O2SAT 94
[2025-02-19 09:13] LABS: Hemoglobin 7.7 g/dL (14.0-18.0); Mean Corpuscular HGB Conc 34.2 g/dL (29.9-35.2); Mean Corpuscular Hemoglobin 32.0 pg (25.9-34.0); Mean Corpuscular Volume 93.4 fL (80.0-94.0); Platelet Count 161 10^3/uL (150-450); Red Blood Count 2.41 10^6/uL (4.70-6.10); White Blood Count 6.1 10^3/uL (4.0-11.0)
[2025-02-19 09:16] LABS: Hematocrit 22.5 % (42.0-54.0)
[2025-02-19] MEDS: EPOETIN ALFA 20,000 UNIT/2 ML VIAL 60000 UNIT SUBQ (09:33)
[2025-02-19 09:54] LABS: Band Neutrophils Absolute 0.3 10^3/uL (0.0-0.3); Basophils Abs Manual 0.18 10^3/uL (0.00-0.10); Basophils Percent Manual 3.0 % (0.2-2.0); Blast % Manual 3.0; Blast Absolute Manual 0.18; Eosinophils Absolute Manual 0.00 10^3/uL (0.00-0.70); Eosinophils Percent Manual 0.0 % (0.9-7.0); Lymphocytes Absolute Manual 0.73 10^3/uL (1.20-3.80); Lymphocytes Percent Manual 12.0 % (20.5-60.0); Metamyelocytes Absolute Manual 0.18; Monocytes Absolute Manual 0.12 10^3/uL (0.30-0.80); Monocytes Percent Manual 2.0 % (1.7-12.0); Segmented Neut Absolute Manual 4.39 10^3/uL (1.4-6.5); Segmented Neutrophils % Manual 72.0 (43.0-75.0)
[2025-02-19 09:58] LABS: Anisocytosis 2+
[2025-02-26 08:50] VITALS: BP 129/64; PULSE 107; TEMP 36.5; O2SAT 98
[2025-02-26 09:18] LABS: Mean Corpuscular HGB Conc 34.4 g/dL (29.9-35.2); Mean Corpuscular Hemoglobin 32.3 pg (25.9-34.0); Mean Corpuscular Volume 94.0 fL (80.0-94.0); Platelet Count 168 10^3/uL (150-450); Red Blood Count 2.01 10^6/uL (4.70-6.10); White Blood Count 6.6 10^3/uL (4.0-11.0)
[2025-02-26 09:37] LABS: Hematocrit 18.9 % (42.0-54.0); Hemoglobin 6.5 g/dL (14.0-18.0)
[2025-02-26 09:45] LABS: Alanine Aminotransferase 26 U/L (16-63); Albumin Globulin Ratio 1.0; Albumin Level 4.1 g/dL (3.4-5.0); Alkaline Phosphatase 82 U/L (46-116); Anion Gap 16.6; Aspartate Amino Transferase 25 U/L (15-37); Blood Urea Nitrogen 17.0 mg/dL (7.0-18.0); Calcium 8.9 mg/dL (8.5-10.1); Carbon Dioxide 24.3 mmol/L (21.0-32.0); Chloride 101 mmol/L (98-107); Estimated GFR (African America >60 (>=60 mL/min/1.73m^2); Estimated GFR (Non-African Ame >60 (>=60 mL/min/1.73m^2); Globulin 4.3 g/dL; Glucose 113 mg/dL (74-106); Potassium 4.9 mmol/L (3.5-5.1); Sodium 137 mmol/L (136-145); Total Protein 8.4 g/dL (6.4-8.2)
[2025-02-26 09:58] LABS: Band Neutrophils Absolute 0.4 10^3/uL (0.0-0.3); Basophils Abs Manual 0.06 10^3/uL (0.00-0.10); Basophils Percent Manual 1.0 % (0.2-2.0); Blast % Manual 2.0; Blast Absolute Manual 0.13; Eosinophils Absolute Manual 0.00 10^3/uL (0.00-0.70); Eosinophils Percent Manual 0.0 % (0.9-7.0); Lymphocytes Absolute Manual 0.99 10^3/uL (1.20-3.80); Lymphocytes Percent Manual 15.0 % (20.5-60.0); Metamyelocytes Absolute Manual 0.13; Monocytes Absolute Manual 0.26 10^3/uL (0.30-0.80); Monocytes Percent Manual 4.0 % (1.7-12.0); Segmented Neut Absolute Manual 4.62 10^3/uL (1.4-6.5); Segmented Neutrophils % Manual 70.0 (43.0-75.0)
[2025-02-26 09:59] LABS: Anisocytosis 3+
[2025-02-26] MEDS: 0.9 % SODIUM CHLORIDE 250 ML 10 ML IV (10:19)
[2025-02-26] MEDS: ACETAMINOPHEN 325 MG TABLET 650 MG PO (10:27)
[2025-02-26] MEDS: DIPHENHYDRAMINE HCL 25 MG CAPSULE PO (10:27)
[2025-02-26 10:57] VITALS: BP 106/55; PULSE 76; TEMP 36.3; O2SAT 95
[2025-02-26 11:02] VITALS: BP 106/55; PULSE 76; TEMP 36.3; O2SAT 95
[2025-02-26 11:19] VITALS: BP 109/62; PULSE 86; TEMP 36.7; O2SAT 98
--- NOTE | 2025-02-26 11:22 | PC.NURSE ---
Patient tolerating Blood transfusion. Resting with easy respirations. Taking in a snack. Voices no complaints or concerns at this time.
[2025-02-26 12:19] VITALS: BP 98/52; PULSE 86; TEMP 36.7; O2SAT 98
[2025-02-26] MEDS: LUSPATERCEPT AAMT 16.6 MG SUBQ (12:30)
[2025-02-26] MEDS: EPOETIN ALFA 20,000 UNIT/2 ML VIAL 60000 UNIT SUBQ (12:31)
[2025-02-26] MEDS: LUSPATERCEPT AAMT SQ (12:33)
--- NOTE | 2025-02-26 12:40 | PC.NURSE ---
Patient tolerated blood transfusion well. Educated on reaction signs and symptoms as patient did not want to stay 1 hour post transfusion. Patient voiced no complaints or concerns at this time.
[2025-03-05 08:48] VITALS: BP 129/64; PULSE 89; TEMP 36.9; O2SAT 100
[2025-03-05 09:08] LABS: Hemoglobin 7.0 g/dL (14.0-18.0); Mean Corpuscular HGB Conc 34.3 g/dL (29.9-35.2); Mean Corpuscular Hemoglobin 31.4 pg (25.9-34.0); Mean Corpuscular Volume 91.5 fL (80.0-94.0); Platelet Count 178 10^3/uL (150-450); Red Blood Count 2.23 10^6/uL (4.70-6.10); White Blood Count 6.5 10^3/uL (4.0-11.0)
[2025-03-05 09:11] LABS: Hematocrit 20.4 % (42.0-54.0)
[2025-03-05] MEDS: EPOETIN ALFA 20,000 UNIT/2 ML VIAL 60000 UNIT SUBQ (09:26)
[2025-03-05 09:48] LABS: Band Neutrophils Absolute 0.5 10^3/uL (0.0-0.3); Basophils Abs Manual 0.00 10^3/uL (0.00-0.10); Basophils Percent Manual 0.0 % (0.2-2.0); Blast % Manual 3.0; Blast Absolute Manual 0.19; Eosinophils Absolute Manual 0.06 10^3/uL (0.00-0.70); Eosinophils Percent Manual 1.0 % (0.9-7.0); Lymphocytes Absolute Manual 0.58 10^3/uL (1.20-3.80); Lymphocytes Percent Manual 9.0 % (20.5-60.0); Metamyelocytes Absolute Manual 0.06; Monocytes Absolute Manual 0.19 10^3/uL (0.30-0.80); Monocytes Percent Manual 3.0 % (1.7-12.0); Myelocytes % Manual 1.0; Myelocytes Absolute Manual 0.06; Segmented Neut Absolute Manual 4.81 10^3/uL (1.4-6.5); Segmented Neutrophils % Manual 74.0 (43.0-75.0)
[2025-03-05 09:49] LABS: Anisocytosis 2+; Hypochromasia 2+; Ovalocytes 1+
[2025-03-05 09:50] LABS: Schistocytes 1+
[2025-03-12 07:50] VITALS: BP 129/63; PULSE 95; TEMP 35.9; O2SAT 100
[2025-03-12 08:13] LABS: Hemoglobin 7.1 g/dL (14.0-18.0); Mean Corpuscular HGB Conc 34.1 g/dL (29.9-35.2); Mean Corpuscular Hemoglobin 31.8 pg (25.9-34.0); Mean Corpuscular Volume 93.3 fL (80.0-94.0); Platelet Count 269 10^3/uL (150-450); Red Blood Count 2.23 10^6/uL (4.70-6.10); White Blood Count 8.2 10^3/uL (4.0-11.0)
[2025-03-12 08:16] LABS: Hematocrit 20.8 % (42.0-54.0)
--- NOTE | 2025-03-12 08:17 | PC.NURSE ---
0817: Lab called for Hct 20.8. Dr. Hopper aware. Pt. given copy of labs to take to [facility]. Lab notified of need for Procrit.
[2025-03-12] MEDS: EPOETIN ALFA 20,000 UNIT/2 ML VIAL 60000 UNIT SUBQ (08:30)
[2025-03-12 08:40] LABS: Band Neutrophils Absolute 0.7 10^3/uL (0.0-0.3); Basophils Abs Manual 0.00 10^3/uL (0.00-0.10); Basophils Percent Manual 0.0 % (0.2-2.0); Blast % Manual 3.0; Blast Absolute Manual 0.24; Eosinophils Absolute Manual 0.00 10^3/uL (0.00-0.70); Eosinophils Percent Manual 0.0 % (0.9-7.0); Lymphocytes Absolute Manual 1.39 10^3/uL (1.20-3.80); Lymphocytes Percent Manual 17.0 % (20.5-60.0); Metamyelocytes Absolute Manual 0.08; Monocytes Absolute Manual 0.57 10^3/uL (0.30-0.80); Monocytes Percent Manual 7.0 % (1.7-12.0); Myelocytes % Manual 2.0; Myelocytes Absolute Manual 0.16; Segmented Neut Absolute Manual 5.08 10^3/uL (1.4-6.5); Segmented Neutrophils % Manual 62.0 (43.0-75.0)
[2025-03-12 08:42] LABS: Anisocytosis 2+; Hypochromasia 1+
[2025-03-12 08:43] LABS: Schistocytes 1+
== END 2025-03-17 23:59 | disposition home or self-care (01) ==
LOC: HEMC 07:40
PROVIDERS: PCP Family Medicine; Visit Provider Internal Medicine Hematology & Oncology
DX: D46.21 Refractory anemia with excess of blasts 1 (principal); D46.9 Myelodysplastic syndrome, unspecified; D75.81 Myelofibrosis; R16.1 Splenomegaly, not elsewhere classified; Z87.891 Personal history of nicotine dependence; Z85.72 Personal history of non-Hodgkin lymphomas; Z85.79 Personal history of other malignant neoplasms of lymphoid, hematopoietic and related tissues; F10.90 Alcohol use, unspecified, uncomplicated; L03.115 Cellulitis of right lower limb; S81.801A Unspecified open wound, right lower leg, initial encounter
CPT/HCPCS: 36415; 36430; 80053; 85007; 85027; 86850; 86900; 86901; 86923; 96372; G0463; J0885; J0896; P9038

== ENCOUNTER 2025-04-16 08:41 | Outpatient (RCR) | payer OTHER, SELFPAY ==
--- OUTSIDE RECORDS SUMMARY | 2025-03-07 10:00 | XMS_ITS | Encounter Summary ---
Author Organization [facility] [email or web address] [facility] tem Address [id number] [place] [address] Care Team Providers Care Supervisor Throwing Department Name Role Phone Dewey Enriquez DO Primary Care Provider [phone] Reason for Visit * Reason Comments 3 month visit Encounter Details Date Type Department Care Team (Late st Contact Info) Description 03/07/2025 10:00 AM EDT Office Visit [facility] Internal [facility] - Family Medicine [address] [place] [address] Dewey Enriquez DO [address], [facility] [address] Primary myelofibrosis (CMS-HCC) (Primary Dx); Severe anemia Social History Tobacco Use Types Packs/Day Years Used Date Smoking Tobacco: Former Cigarettes 1 45.2 1 08/26/1978 - 09/02/2024 Smokeless Tobacco: Never Alcohol Use Standard Drinks/Week Comments Yes 7 (1 standard drink = 0.6 oz pur e alcohol) 1 a night [facility] [employer] Answer Date Recorded In the past 12 months has [employer], gas, oil, or water company threatened to [...] week 06/25/2024 How often do you attend [facility] or jehovah's witness services? Never 06/25/2024 Do you belong to [...] alcohol? 4 or more times a week 03/07/2025 Q2: How many drinks containi ng alcohol do you have on a typical day when you are drinking? 1 or 2 Q3: How often do you have si x or more drinks on one occasion? Never 03/07/2025 Overall Financial Resource Strain (CARDIA) Answe r Date Recorded How hard is it for you to pa y for the very basics like food, housing, medical care, and heating? Not hard at all 06/25/2024 PHQ-2 Answer Date Recorded Total Score 0 03/07/2025 [facility] - Occupational [...] Recorded Do you need help finding a [facility] career [facility] and/or a training program? No 06/25/2024 Hunger Screening Answer Date Recorded Within the past 12 months we worried whether our food would run out before we got money to buy more. Never True 03/07/2025 Within the past 12 months th e food we bought just didn't last and we didn't have money to get more. Never True 03/07/2025 Purpose - Life Answer Date Recorded I [...] Sign Reading Time Taken Comments Blood Pressure 104/48 03/07/2025 10:02 AM EDT Pulse 99 03/07/2025 10:02 AM EDT Temperature 36.6 C (97.9 F) 03/07/2025 10:02 AM EDT Respiratory Rate 20 03/07/2025 10:02 AM EDT Oxygen Saturation 100% 03/07/2025 10:02 AM EDT Inhaled Oxygen Concentration - - Weight 71.4 kg (157 lb 6.4 oz) 03/07/2025 10:02 AM EDT Height 175.3 cm (5' 9.02 ) 03/07/2025 10:02 AM E DT Body Mass Index 23.23 03/07/2025 10:02 AM EDT documented in this encounter Functional Status * Audit-C Score Answer Date of Assessment Author 4 03/07/2025 11:44 AM EDT Dewey Enriquez, DO * Question Answer Date of Assessment Author Q1: How often do you have a drink containing alcohol? 4 or more times a week 03/07/2025 11:44 AM PAVANT Dewey Enriquez, DO Q2: How many drinks containing alcohol do you have on a typical day when you are drinking? 1 or 2 03/07/2025 11:44 AM PAVANT Dewey Enriquez, DO Q3: How often do you have six or more drinks on one occasion? Never 03/07/2025 11:44 AM EDT Dewey Enriquez DO documented as of this encounter Progress Notes * Dewey Radha DO Mina - 03/07/2025 10:00 AM EDT Subjective Patient ID: Nic Ordaz is a 64 y.o. male. Keron presents today for recheck of several problems. He is seeing the oncologist and has been going up to [facility] for a bone marrow biopsy recently. He was told that it is a bonemarrow issue. They are going to follow up with him next week and he may undergo a bone marrow transplant. He would like to hold off on the gastroenterology referral for now until this issue settles do wn. He is not having any GI issues. He did say he had a colonoscopy in the past but is not sure when. His appetite is good. He is tolerating the medication well. He has cut back on his alcohol intake to 1 a day in the evening. The following portions of the patient's history were reviewed and updated as appropriate: allergies, current medications, past family history, past medical history, past social history, past surgicalhistory, problem list, and medication reconciliation was completed including current medication andpost discharge medication. Review of Systems Constitutional: Negative. HENT: Negative. Objective Physical Exam Vitals reviewed. Constitutional: General: He is not in acute distress. Appearance: Normal appearance. He is normal weight. He is not ill-appearing. HENT: Head: Normocephalic. Cardiovascular: Rate and Rhythm: Normal rate and regular rhythm. Heart sounds: Normal heart sounds. Pulmonary: Effort: No respiratory distress. Breath sounds: Normal breath sounds. No wheezing, rhonchi or rales. Musculoskeletal: Cervical back: Neck supple. Neurological: General: No focal deficit present. Mental Status: He is alert and oriented to person, place, and time. Gait: Gait is intact. Psychiatric: Attention and Perception: Attention normal. Mood and Affect: Mood and affect normal. Speech: Speech normal. Behavior: Behavior normal. Behavior is cooperative. Thought Content: Thought content normal. Cognition and Memory: Cognition normal. Judgment: Judgment normal. Assessment/Plan Nic was seen today for 3 month visit. Diagnoses and all orders for this visit: Primary myelofibrosis (CMS-HCC) Recent bone marrow biopsy was reviewed and discussed with the patient. Follow up with specialist asdirected Severe anemia Seems to be stable. He declined a GI evaluation at this time. We did discuss that it would also be to screen for colon cancer which he is overdue for but he would like to wait until after a possible bone marrow transplant. Other orders - ferrous sulfate 325 (65 FE) MG tablet; Take 1 tablet (325 mg total) by mouth in the morning. - ascorbic acid, vitamin C, (VITAMIN C) 1000 mg tablet; Take 1 tablet (1,000 mg total) by mouth in the morning. documented in this encounter Plan of Treatment Upcoming Encounters Date Type Department Care Team (Late st Contact Info) Description 07/08/2025 9:00 AM EST Office Visit [facility] Internal [facility] - Family Medicine [address] [place] [address] Dewey Enriquez DO [address] [employer] [facility] [place] [address] documented as of this encounter Goals Goal Patient Goal Type Associated Problems Recent Progress Patient-Stated? Author <enter goal here> General Yes Molly Clark LSW Note: Evaluation of progress towards goal: Current Discharge Plan; home with spouse, self care, denies needs at this time. documented as of this encounter Visit Diagnoses Diagnosis 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 anemia documented in this encounter Additional Health Concerns Assessment Noted Time PHQ-9 Depression Total Score: 0 03/07/20 10:01 AM EDT documented as of this encounter Care Teams Supervisor Throwing Department Relationship Specialty Start Date End Date Dewey Enriquez DO [address] [facility] [place] [address] PCP - General Family Medicine 09/07/24 documented as of this encounter
--- OUTSIDE RECORDS SUMMARY | 2025-03-12 10:47 | XMS_ITS | Encounter Summary ---
Author Organization [facility] Address [address] [facility] [place] [address] Care Team Providers Care Item Processor Name Role Phone Unavailable Primary Care Provider Unavailabl e Reason for Referral * Specialty Diagnoses / Procedures Referred By Contac t Referred To Contact Diagnoses Myelofibrosis (HCC) [facility] [address] [place] [phone] Phone: tel: Referral ID Status Reason Start Date Expiration Date Visits Re quested Visits Authorized Question Answer Referral Reason: ADJUSTMENT TO ILLNESS Location Patient [facility] ONCOL[facility], [facility] * Provider Visit (Routine) - Authorized Specialty Diagnoses / Procedures Referred By Contact Referred To Contact Hematology/Oncology / Oncology Medical Diagnoses Myelofibrosis (HCC) Korey Bueno MD [address] [place] [address] Phone: tel: fax: Korey Bueno MD [address] [place] [address] Phone: tel: fax: Referral ID Status Reason Start Date Expiration Date Visits Requested Visits Authorized [id number] Authorized Service Not Available 03/12/2025 03/12/2026 3 3 Scheduling Instructions Comments The patient requires Allo SCT for a Myelofibrosis Reason for Visit * Service Level Authorization (Routine) - Pending Review Specialty Diagnoses / Procedures Referred By Contac t Referred To Contact Oncology Medical Diagnoses Pancytopenia [facility] [address] [place] [phone] Phone: tel: fax: Referral ID Status Reason Start Date Expiration Date V isits Requested Visits Authorized [id number] Pending Review 01/15/2025 07/14/2025 1 1 Encounter Details Date Type Department Care Team (Late st Contact Info) Description 03/12/2025 10:47 AM EDT - 03/12/2025 11:59 PM EDT Hospital Encounter [facility] [address] [place] [phone] Ramo Taylor MD [address] [place] [address] Dx: Myelofibrosis (HCC) (Primary Dx) Discharge Disposition: HOV Discharge Social History Tobacco Use Types Packs/Day Years Used Date Smoking Tobacco: Never Assessed Sex and Gender Information Value Date Recorded Sex Assigned at Not on file Legal Sex Male 11:23 AM EDT Gender Identity Not on file Sexual Orientation Not on file documented as of this encounter Last Filed Vital Signs Vital Sign Reading Time Taken Comments Blood Pressure 120/55 03/12/2025 10:49 AM EDT Pulse 87 03/12/2025 10:49 AM EDT Temperature 36.6 C (97.8 F) 03/12/2025 10:49 AM EDT Respiratory Rate - - Oxygen Saturation 100% 03/12/2025 10: 49 AM EDT Inhaled Oxygen Concentration - - Weight 71.6 kg (157 lb 14.4 oz) 025 10:49 AM EDT Height 177.5 cm (5' 9.88 ) 03/12/2025 1 0:49 AM EDT Body Mass Index 22.73 03/12/2025 10:49 AM EDT documented in this encounter Medications at Time of Discharge triamcinolone 0.1 % cream Apply to affected area on trunk and extremities EVERY DAY to TWICE DAILY NEEDED Ojjaara 100 MG TABS 10/16/2024 documented as of this encounter Progress Notes * Ramo Taylor MD - 03/12/2025 11:30 AM EDT Images from the original note were not included. HEMATOLOGY AND MEDICAL ONCOLOGY [facility] Patient ID: Name: Nic Ordaz Encounter Date: 03/12/2025 PCP: No primary care provider on file. REASON FOR THE CONSULT Suspected Myelofibrosis DIAGNOSIS Suspected MDS versus Myelofibrosis CANCER: No prior history of malignancy documented STAGING Cancer Staging No matching staging information was found for the patient. CURRENT SITES OF DISEASE Cytopenia MOLECULAR GENOMICS None SERUM TUMOR MARKERS None PRIOR THERAPY None CURRENT THERAPY Current therapy has been given at [facility] per Dr. Martita Hopper MD PROCRIT 60.000 units once a week Luspatercept OJJAARA (Momelotinib) CURRENT ONCOLOGICAL PROBLEMS Weight loss: No, how many pounds: 15 Lbs, time frame weight loss: 2 months. Fever: No Chills: YES B-Symptoms: No Bone pain: No Lytic lesions: No Abdominal distention: No Nausea/Vomiting: No HISTORY OF PRESENT ILLNESS Nic Ordaz is a 64 year old male with a medical history that includes generalized anxiety, hyperlipidemia, psoriasis, and severe seborrheic dermatitis, [facility] He reported experiencing fatigue, chills, pallor, and an inability to carry out his usual activities. Additionally, he noted chest pain, dyspnea, and an infected skin lesion on his lower extremities. Clinical evaluation revealed profound anemia, with hemoglobin levels ranging between 5-6 g/dL. The patient received three units of RBCs, resulting in the improvement of most symptoms. A right pleural effusion was also identified, necessitating a large-volume thoracentesis of 2.2 liters, which subsequently alleviated his chest pain and dyspnea. Upon discharge, he was prescribed cephalexin, and his hemoglobin levels were confirmed to have improved following transfusion. However, several months later, the patient presented again with anemia without signs of active bleeding; there were no episodes of hematemesis, no presence of blood in the stools, and no hematuria. He attended the emergency room and received an additional unit of RBCs. In October 2024, the patient was evaluated at [facility] due to severe anemia once again. He wastransfused with two additional units of RBCs and was prescribed iron supplements for home management. Treatment with PROCRIT 60.000 units weekly was initiated, and he was referred to Dr. Martita Hopper in Hematology/Oncology for further assessment, including a planned bone marrow biopsy. Recently initiated on Luspatercept. Throughout his multiple hospital visits, the patient received a total of nine units of A+ RBCs, with the most recent transfusion occurring this morning at [facility], where a hemoglobin level of 6.5 g/dL was documented. A bone marrow biopsy was performed on December 25, 2024, at [facility], with results reported on January 01, 2025 as left shifted dysgranulopoietic marrow with 3% of circulating myeloblasts, trisomy 8 by FISH, and positive JAK2 V617F and TET2 mutations consistent with Myelofibrosis. The patient has been sent to our hospital to define management and plan for possible Bone Marrow Transplant. Interval: The patient underwent a new BONE MARROW BIOPSY here at [facility] on 01/21/2025, and the results are reported as markedly limited bone marrow evaluation displaying rare clusters of hyperchromatic megakaryocytes, few erythroid and myeloid cells, moderate reticulin fibrosis, and crush artifact. And the core biopsy showed sclerotic cortical bone and minimal subcortical subcortical bone marrow elements limited by crush artifact. Cellularity can not be estimated in this biopsy due to the previous limitations. Clusters hyperchromatic megakaryocytes are focally noted. Granulopoiesis and erythropoies is are difficult to evaluate due to the crushing artifact. So this result is inconclusive for MDS and/or MPN. The patient under went a new BMBx with IR guidance on 02/27/2025 and the findings raise the differential diagnosis of primary myelofibrosis, fibrotic phase versus a myelodysplastic neoplasm (or MDS/MPN) with fibrosis (MDS-F). While the suboptimal aspirate warrants some caution, overt morphologic dysplasia (seen in cases of MDS or MDS/MPN) is not identified, and the presence of splenomegaly, granulocytic hyperplasia, and predominantly large-size megakaryocytes is most consistent with a diagnosisof primary myelofibrosis, fibrotic phase. PAST MEDICAL HISTORY Psoriasis Seborrheic dermatitis Anxiety Hyperlipidemia PAST SURGICAL HISTORY Surgical History[1] FAMILY HISTORY Brother with diabetes Sister with diabetes Mother with cervical CA SOCIAL HISTORY Heavy smoker for more than 40 years a pack daily Quit smoking in Aug 2024 CURRENT MEDS PROCRIT 60.000 units once a week Luspatercept GERARD (Momelotinib) ALLERGIES Patient has no allergy information on record. Subjective Feeling well after transfusion of RBCs No major side effects of the current therapy Objective Vitals: 03/12/25 1049 BP: 120/55 Pulse: 87 Temp: 97.8 ??F (36.6 ??C) SpO2: 100% Vital Signs: height is 5' 9.88 (1.775 m) and weight is 157 lb 14.4 oz (71.6 kg). His oral temperature is 97.8 ??F (36.6 ??C). His blood pressure is 120/55 and his pulse is 87. His oxygen saturation is 100%. General: NAD Orientation: Oriented in three spheres Mood: Appropriate mood Body surface area is 1.89 meters squared. Wt Readings from Last 10 Encounters: 03/12/25 157 lb 14.4 oz (71.6 kg) 02/05/25 151 lb 11.2 oz (68.8 kg) 01/21/25 154 lb 5.2 oz (70 kg) 01/15/25 151 lb 1.6 oz (68.5 kg) Physical Exam GEN: NAD, oriented, collaborates with interviewer, no dyspnea, no acute distress HEENT: MMM, no JVD CV: RRR, no murmurs, no pericardial rubs Chest: Appropriate expansion of both pulmonary guerrier, no rales, no crackles, no wheezing GI: Abd soft, no pain on deep palpation, no megalies palpable MSK: No edema lower extremities, pulses symmetric Skin: No pale, no icterus, severe silver scaly lesion all over the body, especially in upper extremities. Extensive seborrheic dermatitis in the face and arms. Neuro: AOx3, no neurological deficit, no lateralization Performance Status: ECOG 0 KARNOFKY 100 Relevant Laboratories CBC on 03/12/2025 at [facility] WBC 8.2 Hgb 7.1 PLTs 269 Chemistry on 01/08/2025 Sodium 141 Potassium 5.7 Chloride 102 BUN 21 Creatinine 1.12 Glucose 114 Total bili 0.7 AST 24 ALT 25 Alk Phosp 89 Albumin 4.1 Vit B 1 75.7 (wnl) Vit B 6 2.6 (low) Copper 120 (wnl) Zinc 76 (wnl) 02/05/2025 Blood work: Hgb improved to 7.8, WBC 5.3, neutrophils 3.07, lymphocytes 1.32, eosinophils 0.05, basophils 0.05,PLTs 143. Creatinine 0.92, calcium 9, electrolytes wnl. Surgical pathology Bone Marrow Biopsy Collected 12/25/2024, final report 01/01/2025 02/20/2025 NEW BMBx *SPECIMEN FOR SURGICAL PATHOLOGY: [id number] Order: [id number] Collected 02/20/2025 12:23 Status: Final result Dx: Myelofibrosis (HCC); Pancytopenia Test Result Released: No (inaccessible in [employer]) 0 Result Notes Component Case Report Surgical Pathology Report Case: [id number] Authorizing Provider: Anne Ha MD Collected: 02/20/2025 1223 Ordering Location: [facility] CT Received: 02/20/2025 1340 Pathologist: Isacc Dugan MD Specimen: Bone marrow, Right iliac Final Diagnosis A. Bone marrow, right posterior iliac crest, biopsy: Limited specimen showing diffuse moderately fibrotic hypercellular marrow (80%) with an atypical megakaryocyte proliferation and granulocytic hyperplasia, see comment. . I certify that I personally conducted the diagnostic evaluation of the above specimen(s) and have rendered the final diagnosis(es). at 1650 EDT Diagnosis Comment The patients history of severe anemia, splenomegaly, and prior diagnosis of primary myelofibrosis are noted. Per report, prior outside evaluation of the peripheral blood identified 3% circulating blasts and mutations in JAK2 p.V617F (VAF 75.6%) and TET2 p.Q1627* (VAF 43.8%). A variant of unknown significance was also identified in TP53 p.M384I (VAF 48.9%), possibly representing a germline variant. The current specimen is limited by an aspirate that is hemodilute and unlikely to be fully telesales representative of the marrow. The core biopsy is adequate and shows diffuse, moderately fibrotic hypercellular marrow (approximately 80% cellular) with a moderate proliferation of atypical, variably-sized megakaryocytes in a background of maturing trilineage hematopoiesis with a granulocytic hyperplasia. Occasional atypical hypolobate neutrophils are identified on hemodilute aspirate smears which may be reactive in nature due to the finding of widespread toxic granulation among the granulocytes. Erythrocytic precursors are mildly decreased without overt dysplasia. Trabecular bone is mildly osteosclerotic, and special stains demonstrate a moderate, diffuse increase in reticulin fibrosis (grade MF-2).Collagen fibrosis appears limited to small focal areas around the trabecular bone without significant deposition in the intertrabecular space. By CD34 immunohistochemistry, blasts do not appear to beincreased overall. The findings raise the differential diagnosis of primary myelofibrosis, fibrotic phase versus a myelodysplastic neoplasm (or MDS/MPN) with fibrosis (MDS-F). While the suboptimal aspirate warrants some caution, overt morphologic dysplasia (seen in cases of MDS or MDS/MPN) is not identified, and the presence of splenomegaly, granulocytic hyperplasia, and predominantly large-size megakaryocytes is most consistent with a diagnosis of primary myelofibrosis, fibrotic phase, consistent with the previous diagnosis. Imaging 09/07/2024 CT AP w/contrast IMPRESSION: Bulky retroperitoneal, right iliac, and inguinal lymphadenopathy with splenomegaly worrisome for hematologic malignancy. Correlate with laboratory markers. Consider tissue sampling. Mild nonspecific periportal edema, trace ascites, right pleural effusion. 09/08/2024 CT Chest w/contrast Impression: 1. Mediastinal lymphadenopathy measuring up to [...] which can be seen in pulmonary hypertension. 09/09/2024 MRI brain w/wo contrast IMPRESSION: * No acute intracranial abnormality or pathologic enhancement. * Mild atrophic and chronic microvascular ischemic changes. Assessment/Plan Nic Ordaz is a 64 year old male with a medical history that includes psoriasis, anxiety, hyperlipidemia, heavy smoking, and seborrheic dermatitis. Since September 08, 2024, the patient has been admitted to the hospital multiple times due to symptomatic severe anemia, with no evidence of active external bleeding. CT scan with splenomegaly and lymphadenopathy, the patient was initially suspected of having a lymphoproliferative disorder versus myelodysplastic syndrome, the patient has been treated with PROCRIT and Luspatercept per Heme/Onc Dr. Hopper. A recent bone marrow biopsy indicatesa likely diagnosis of Myelofibrosis, with identified JAK2 V617F and TET2 mutations. The patient wasreferred to our institution by Dr. Martita Hopper for the establishment of care and consideration of a potential bone marrow transplant. Also, the patient has recently been initiated on Momelotinib. The patient underwent a new BONE MARROW BIOPSY here at [facility] on 01/21/2025, and the results are reported as markedly limited bone marrow evaluation displaying rare clusters of hyperchromatic megakaryocytes, few erythroid and myeloid cells, moderate reticulin fibrosis, and crush artifact. And the core biopsy showed sclerotic cortical bone and minimal subcortical subcortical bone marrow elements limited by crush artifact. Cellularity can not be estimated in this biopsy due to the previous limitations. Clusters hyperchromatic megakaryocytes are focally noted. Granulopoiesis and erythropoies is are difficult to evaluate due to the crushing artifact. So this result is inconclusive for MDS and/or MPN. He got another BMBx on 02/27/2025 that showed findings raising the differential diagnosis of primary myelofibrosis, fibrotic phase versus a myelodysplastic neoplasm (or MDS/MPN) with fibrosis (MDS-F). While the suboptimal aspirate warrants some caution, overt morphologic dysplasia (seen in cases ofMDS or MDS/MPN) is not identified, and the presence of splenomegaly, granulocytic hyperplasia, and predominantly large-size megakaryocytes is most consistent with a diagnosis of primary myelofibrosis, fibrotic phase. Plan: As for now, continue management and clinical follow up with his oncologist Dr. Hopper at [facility] We communicate with Dr. Hopper office to give him updates. Standing blood work orders will be placed in our system. Refer to evaluate the possibility of Allo SCT. Rationale: The only curative therapy for his disease can be an Allo SCT, as our institution specializes in Autologous Stem Cell Transplants and not on Allotransplants, we must send referral to or [facility] to get the transplant done in one of those institutions. RTC as needed. For now follow up with his Oncologists at [facility] and plan for transplant at the [facility]. (Referral done) rice field worker to help with the connection with /[facility]. Patient seen and assessed with Dr. Korey Bueno MD. The patient and family's questions, doubts, and concerns were addressed and resolved apropriately. A thorough and detailed explanation of the patient's case was provided. The patient and family members ( and [id number] presented in the office) demonstrated an understanding of the information and agreed with the plan. --- Ramo Mckinnon MD Hematology and Medical Oncology Fellow [phone] [1] No past surgical history on file. Cosigned by Korey Bueno MD at 03/12/2025 2:52 PM EDT Associated attestation - Korey Bueno MD - 03/12/2025 2:52 PM EDT Attending Physician Attestation: I saw and evaluated the patient. I personally obtained the schwartz and critical portions of the historyand physical exam. I reviewed the Fellow's documentation and discussed the patient as a team. I agree with the Fellow's medical decision making as documented in the note. Additional Note: Korey Bueno MD 03/12/2025 documented in this encounter Plan of Treatment Not on file documented as of this encounter Visit Diagnoses Diagnosis Myelofibrosis (HCC)- Primary Myelofibrosis documented in this encounter
[2025-03-19 08:40] VITALS: BP 138/63; PULSE 108; TEMP 36.7; O2SAT 99
--- OUTSIDE RECORDS SUMMARY | 2025-03-19 08:44 | XMS_ITS | Clinical Summary ---
Author Organization [facility] Address [address] [place] [address] Phone Care Team Providers Care Electromechanical Technician Name Role Phone Unavailable Primary Care Provider Unavailabl e Encounters Date Type Department Care Team Description 02/22/2025 Telephone [facility] [address] [place] [address] Coral Farrell RN from Last 3 Months Social History Tobacco Use Types Packs/Day Years Used Date Smoking Tobacco: Never Assessed Sex and Gender Information Value Date Recorded Sex Assigned at Not on file Legal Sex Male 1:57 PM EDT Gender Identity Not on file Sexual Orientation Not on file Plan of Treatment Not on file
--- OUTSIDE RECORDS SUMMARY | 2025-03-19 08:44 | XMS_ITS | Encounter Summary ---
Author Organization [facility] Address [id number] [address] [place] [address] Care Team Providers Care Criminal Defense Lawyer Name Role Phone Dewey Enriquez DO Primary Care Provider [phone] Encounter Details Date Type Department Care Team (Late st Contact Info) Description 09/25/2024 [facility]phone [facility] - Family Medicine [address] [place] [phone] Evelyn Couch CMA Social History Tobacco Use Types Packs/Day Years Used Date Smoking Tobacco: Former Cigarettes 1 45.2 1 08/26/1978 - 09/02/2024 Smokeless Tobacco: Never Alcohol Use Standard Drinks/Week Comments Yes 35 (1 standard drink = 0.6 oz pu re alcohol) 4 or 5 a night [facility] Utilities Answer Date Recorded In the past 12 months has [employer], gas, oil, or water [employer] threatened to shut off services in your [...] any clubs o r organizations such as uatsdin groups, unions, fraternal or athletic groups, or [...] Answer Date Recorded Total Score 0 09/21/2024 [facility] - Occupational Stress Questionnaire Answer Date Recorded [...] Recorded Do you need help finding a va hospital career center and/or a training program? [...] Medicine - Family Medicine [address] [place] [address] Dewey Enriquez DO [address] [facility] [place] [address] documented as of this encounter Goals Goal [...] documented as of this encounter Care Teams Criminal Defense Lawyer Relationship Specialty Start Date End Date Dewey Enriquez DO [address] [facility], [place] [address] PCP - General Family Medicine 09/07/24 documented as of this encounter
--- OUTSIDE RECORDS SUMMARY | 2025-03-19 08:45 | XMS_ITS | Encounter Summary ---
Author [facility] Address [id number] [address] [place] [address] Care Team Providers Care Senior Property Manager Name Role Phone Dewey Enriquez DO Primary Care Provider [phone] Encounter Details Date Type Department Care Team (Late st Contact Info) Description 09/14/2024 Orders Only [facility] Internal Medicine - Family Medicine [address] [place] [address] Dewey Enriquez DO [address] [place] [address] Social History Tobacco Use Types Packs/Day Years Used Date Smoking Tobacco: Former Cigarettes 1 45.2 1 08/26/1978 - 09/02/2024 Smokeless Tobacco: Never Alcohol Use Standard Drinks/Week Comments Yes 35 (1 standard drink = 0.6 oz pu re alcohol) 4 or 5 a night [facility] Utilities Answer Date Recorded In the past 12 months has [employer], oil, or water [employer] threatened to shut off services in your [...] often do you attend chur ch or voodoo services? Never 06/25/2024 Do you belong to any clubs o r organizations such as jehovah's witness groups, unions, fraternal or athletic groups, or [...] Date Recorded Total Score 0 09/06/2024 [facility]at [facility] - [...] - Family Medicine [address] [place] [address] Dewey Enriquez DO [address] [facility] [address] documented as of this encounter Goals Goal Patient Goal Type Associated Problems Recent Progress Patient-Stated? Author <enter goal here> General Yes Molly Clark, [employer] Note: Evaluation of progress towards goal: Current Discharge Plan; home with spouse, self care, denies needs at this time. documented as of this encounter Visit Diagnoses Not on filedocumented in this encounter Additional Health Concerns Assessment Noted Time PHQ-9 Depression Total Score: 0 09/06/19 10:28 AM EST documented as of this encounter Care Teams Senior Property Manager Relationship Specialty Start Date End Date Dewey Enriquez DO [address] [facility] [address] PCP - General Family Medicine 09/07/24 documented as of this encounter
--- OUTSIDE RECORDS SUMMARY | 2025-03-19 08:45 | XMS_ITS | Encounter Summary ---
Author Organization [facility] tem Address [id number] [address] [place] [address] Care Team Providers Care Mask Layout Designer Name Role Phone Dewey Enriquez DO Primary Care Provider + [phone] Reason for Visit * Reason Onset Date Comments Transition Of Care 09/13/2024 Encounter Details Date Type Department Care Team (Late st Contact Info) Description 09/13/2024 [facility]phone [facility] Medicine [address] [place] [phone] Zeny Gaytan, fireproof door maker Of Care Social History Tobacco Use Types Packs/Day Years Used Date Smoking Tobacco: Former Cigarettes 1 45.2 1 08/26/1978 - 09/02/2024 Smokeless Tobacco: Never Alcohol Use Standard Drinks/Week Comments Yes 35 (1 standard drink = 0.6 oz pu re alcohol) 4 or 5 a night [facility] Utilities Answer Date Recorded In the past 12 months has [employer], gas, oil, or water company threatened to [...] often do you attend chur ch or worship services? Never 06/25/2024 Do you belong to any clubs o r organizations such as taoist groups, unions, fraternal [...] Date Recorded Total Score 0 09/06/2024 [facility] of Occupat ional Health - Occupational [...] Recorded Do you need help finding a [facility] and/or a training program? [...] Discharge Specialty: Hem/Onc *Name of Discharging Facility: [facility] Date of Facility Discharge: 09.08-09.12.24 Date of Interactive Contact and Name of Loan Documentation Specialist: 09.13.24 1245 Spoke with patient *Medication Review Completed: No START taking: CEPHalexin (KEFLEX) Medication Reconciliation Questions/Concerns: Discussed with patient. States he has medication and is taking as ordered. *Follow Up Appointments with Providers: Primary: Dewey Enriquez DO [phone] TBD Specialty: 10.04.24 1030 [facility] [phone] Specialty: Willow Marsh APRN-CAYLA in 6 weeks Pulmonary Medicine [place] [phone] TBD Specialty: Wound care 1-2 weeks [facility] [place], [place] TBD Review of Pending Lab/Diagnostic Tests [...] - Family Medicine [address] [place] [address] Dewey Enriquez DO [address], [facility] [place] [address] documented as of this encounter Goals Goal [...] documented as of this encounter Care Teams Mask Layout Designer Relationship Specialty Start Date End Date Dewey Enriquez DO [address], [facility] [place] [address] PCP - General Family Medicine 09/07/24 documented as of this encounter
--- OUTSIDE RECORDS SUMMARY | 2025-03-19 08:45 | XMS_ITS | Encounter Summary ---
Author Organization [facility] Address [facility]-[id number] [address] [place] [address] Care Team Providers Care Medication Nurse Name Role Phone Dewey Enriquez DO Primary Care Provider [phone] Encounter Details Date Type Department Care Team (Late st Contact Info) Description 09/18/2024 Orders Only [facility] Internal Medicine - Family Medicine [address] [place] [address] Dewey Enriquez DO [address], [place] [address] Chronic obstructive pulmonary disease, unspecified COPD type ([facility]) (Primary Dx) Social History Tobacco Use Types Packs/Day Years Used Date Smoking Tobacco: Former Cigarettes 1 45.2 1 08/26/1978 - 09/02/2024 Smokeless Tobacco: Never Alcohol Use Standard Drinks/Week Comments Yes 35 (1 standard drink = 0.6 oz pu re alcohol) 4 or 5 a night [employer] Utilities Answer Date Recorded In the past 12 months has [employer], gas, oil, or water [employer] threatened to shut off services in your [...] any clubs o r organizations such as rastafari groups, unions, fraternal or athletic groups, or [...] Answer Date Recorded Total Score 0 09/21/2024 [facility] of Occupat ional Health - [...] - Family Medicine [address] [place] [address] Dewey Enriquez DO [address], [facility] [place] [address] documented as of this encounter Goals Goal Patient Goal Type Associated Problems Recent Progress Patient-Stated? Author <enter goal here> General Yes Molly Clark, FIRE OBSERVER Note: Evaluation of progress towards goal: Current [...] Chronic obstructive pulmonary disease, unspecified COPD type ([facility])- Primary documented in this encounter Additional Health Concerns Assessment Noted Time PHQ-9 Depression Total Score: 0 09/06/19 10:28 AM EST documented as of this encounter Care Teams Medication Nurse Relationship Specialty Start Date End Date Dewey Enriquez DO [address], [facility] [place] [address] PCP - General Family Medicine 09/07/24 documented as of this encounter
--- OUTSIDE RECORDS SUMMARY | 2025-03-19 08:46 | XMS_ITS | Encounter Summary ---
Author Organization [facility] [employer] Sys tem Address [facility][id number] [address] [place] [address] Care Team Providers Care Manager Php Name Role Phone Dewey Enriquez DO Primary Care Provider Encounter Details Date Type Department Care Team (Late st Contact Info) Description 09/12/2024 Telephone [facility] Pul[facility]/Sleep [facility] [address] [place] [address] Willow Marsh, SALES AND EVENTS COORDINATOR-RECRUITING ADMINISTRATOR [address] [facility] [address] [place] [address] Social History Tobacco Use Types Packs/Day Years Used Date Smoking Tobacco: Former Cigarettes 1 45.2 1 08/26/1978 - 09/02/2024 Smokeless Tobacco: Never Alcohol Use Standard Drinks/Week Comments Yes 35 (1 standard drink = 0.6 oz pu re alcohol) 4 or 5 a night [facility] Utilities Answer Date Recorded In the past 12 months has [employer], oil, or water [employer] threatened to shut off services in your [...] How often do you attend chur or yazdanism services? Never 06/25/2024 Do you belong to any clubs o r organizations such as amish groups, unions, fraternal or athletic groups, or [...] Answer Date Recorded Total Score 0 09/06/2024 [facility] of Occupat ional [facility] - Occupational Stress Questionnaire Answer Date [...] Do you need help finding a [facility] career center and/or a training program? No [...] weeks then follow up any provider in [place]. Thanks! * Telephone Encounter - Guerline Cha CMA - 09/12/2024 2:07 PM EST Called and left vm to call office to schedule. documented in this encounter Plan of Treatment Upcoming Encounters Date Type Department Care Team (Late st Contact Info) Description 07/08/2025 9:00 AM EST Office Visit [facility] - Family Medicine [address] [place] [address] Dewey Enriquez DO [address], [place] [address] documented as of this encounter Goals Goal [...] as of this encounter Care Teams Manager Php Relationship Specialty Start Date End Date Dewey Enriquez DO [address] [facility], [place] [address] PCP - General Family Medicine 09/07/24 documented as of this encounter
--- OUTSIDE RECORDS SUMMARY | 2025-03-19 08:48 | XMS_ITS | Encounter Summary ---
Author Organization [facility] Address [facility]-[id number] [address] [place] [address] Care Team Providers Care Rubber Attacher Name Role Phone Dewey Enriquez DO Primary Care Provider [phone] Encounter Details Date Type Department Care Team (Late st Contact Info) Description 11/23/2024 Orders Only [facility] Internal Medicine - Family Medicine [address] [place] [phone] Evelyn Couch CMA Pleural effusion, right Social History Tobacco Use Types Packs/Day Years Used Date Smoking Tobacco: Former Cigarettes 1 45.2 1 08/26/1978 - 09/02/2024 Smokeless Tobacco: Never Alcohol Use Standard Drinks/Week Comments Yes 35 (1 standard drink = 0.6 oz pu re alcohol) 4 or 5 a night [facility] [employer] Answer Date Recorded In the past 12 months has [employer] electric, gas, oil, or water company threatened [...] often do you attend chur ch or rastafari services? Never 06/25/2024 Do you belong to [...] Answer Date Recorded Total Score 0 11/01/2024 [facility] of Occupat ional Health - [...] Do you need help finding a [facility] career center and/or a training program? [...] - Family Medicine [address] [place] [address] Dewey Enriquez DO [address], [place] [address] documented as of this encounter Goals Goal Patient Goal Type Associated Problems Recent Progress Patient-Stated? Author <enter goal here> General Yes Molly Clark, HVAC SPECIALIST Note: Evaluation of progress towards goal: Current [...] Modality Body, Chest N/A Computed Radiogr aphy Dewey Enriquez DO IMG DIAGNOSTIC IMAGING ORDER FERN Final Result documented in this encounter Visit Diagnoses Diagnosis Pleural effusion, right Unspecified pleural effusion documented in this encounter Additional Health Concerns Assessment Noted Time PHQ-9 Depression Total Score: 0 11/02/19 25 9:26 AM EDT documented as of this encounter Care Teams Rubber Attacher Relationship Specialty Start Date End Date Dewey Enriquez DO [address], [place] [address] PCP - General Family Medicine 09/07/24 documented as of this encounter
--- OUTSIDE RECORDS SUMMARY | 2025-03-19 08:48 | XMS_ITS ---
Author Organization [facility] Address [address] [place] [address] Care Team Providers Care Lace Finisher Name Role Phone Unavailable Primary Care Provider Unavailabl e Active Problems Problem Noted Date Diagnosed Date Myelofibrosis 02/12/2025 MDS (myelodysplastic syndrome) 02/12/2025 Pancytopenia 01/15/2025 Current Treatment and Therapy Plans No current plan information found. Past Treatment and Therapy Plans SUPPORTIVE PLAN - ADDITIONAL #2 Plan Name Start Date Discontinue Date Treatment Medications Discontinue Reason Plan Provider [facility] BONE MARROW BIOPSY PROCEDURE REQUEST AND ORDERS 03/12/2025 No medications scheduled. Therapy Complete Arline Rodriguez DO Treatment not started
--- OUTSIDE RECORDS SUMMARY | 2025-03-19 08:48 | XMS_ITS | Encounter Summary ---
Author Organization [facility] Address [address] [place] [address] Care Team Providers Care Buffing Line Set Up Worker Name Role Phone Unavailable Primary Care Provider Unavailabl e Encounter Details Date Type Department Care Team (Late st Contact Info) Description 03/05/2025 Telephone [facility] Oncology Medical [address] [place], [place] [phone] Ramo Taylor MD [address] [place], [place] [phone] Social History Tobacco Use Types Packs/Day Years Used Date Smoking Tobacco: Never Assessed Sex and Gender Information Value Date Recorded Sex Assigned at Not on file Legal Sex Male 11:23 AM EDT Gender Identity Not on file Sexual Orientation Not on file documented as of this encounter Miscellaneous Notes * Telephone Encounter - Joel Deleon - 03/05/2025 10:06 AM EDT PT Called to confirm appt 03/12 also asked for a call back about Bone Valdez results AM. documented in this encounter Plan of Treatment Not on file documented as of this encounter Visit Diagnoses Not on filedocumented in this encounter
--- OUTSIDE RECORDS SUMMARY | 2025-03-19 08:48 | XMS_ITS | Encounter Summary ---
Author Organization [employer] [facility] tem Address [facility]-[id number] [address] [place] [address] Care Team Providers Care Composition Instructor Name Role Phone Dewey Enriquez DO Primary Care Provider [phone] Encounter Details Date Type Department Care Team (Late st Contact Info) Description 2023 [facility]phone [facility] [address] [place] [phone] Evelyn Couch CMA Social History Tobacco Use [...] I have never seen him, even in [place]. Dr Enriquez has not seen him since [...] Medicine - Family Medicine [address] [place] [address] Dewey Enriquez DO [address] [place] [address] documented as of this encounter Visit Diagnoses Not on filedocumented in this encounter Care Teams Composition Instructor Relationship Specialty Start Date End Date Dewey Enriquez DO [address], [place] [address] PCP - General Family Medicine 09/07/24 documented as of this encounter
--- OUTSIDE RECORDS SUMMARY | 2025-03-19 08:48 | XMS_ITS | Encounter Summary ---
Author Organization [employer] Address [id number] [address] [place] [address] Care Team Providers Care Salesperson Toy Trains And Accessories Name Role Phone Dewey Enriquez DO Primary Care Provider [phone] Encounter Details Date Type Department Care Team (Latest Contact Info) Description 03/07/2025 Travel Social History Tobacco Use Types Packs/Day Years Used Date Smoking Tobacco: Former Cigarettes 1 45.2 1 08/26/1978 - 09/02/2024 Smokeless Tobacco: Never Alcohol Use Standard Drinks/Week Comments Yes 7 (1 standard drink = 0.6 oz pur e alcohol) 1 a night [facility] Utilities Answer Date Recorded In the past 12 months has [employer], gas, oil, or water company threatened [...] week 06/25/2024 How often do you attend up health system or voodoo services? Never 06/25/2024 Do you [...] Answer Date Recorded Total Score 0 03/07/2025 [facility] of Occupat ional Health - [...] Recorded Do you need help finding a [facility] career center and/or a training program? [...] as of this encounter Functional Status * Audit-C Score Answer Date of Assessment Author 4 03/07/2025 11:44 AM EDT Dewey Enriquez DO * Question Answer Date of Assessment Author Q1: How often do you have a drink containing alcohol? 4 or more times a week 03/07/2025 11:44 AM EDT Dewey Enriquez DO Q2: How many drinks containing alcohol do you have on a typical day when you are drinking? 1 or 2 03/07/2025 11:44 AM PAVANT Dewey Enriquez DO Q3: How often do you have six or more drinks on one occasion? Never 03/07/2025 11:44 AM EDT Dewey Enriquez DO documented as of this encounter Plan of Treatment Upcoming Encounters Date Type Department Care Team (Late st Contact Info) Description 07/08/2025 9:00 AM EST Office Visit [facility] - Family Medicine [address] [place] [address] Dewey Enriquez DO [address] [place] [address] documented as of this encounter Goals Goal Patient Goal Type Associated Problems Recent Progress Patient-Stated? Author <enter goal here> General Yes Molly Clark SHEET TAILER Note: Evaluation of progress towards goal: Current Discharge Plan; home with spouse, self care, denies needs at this time. documented as of this encounter Visit Diagnoses Not on filedocumented in this encounter Additional Health Concerns Assessment Noted Time PHQ-9 Depression Total Score: 0 03/07/20 25 10:01 AM EDT documented as of this encounter Care Teams Salesperson [employer] Access[employer] Relationship Specialty Start Date End Date Dewey Enriquez DO [address], [place] [address] PCP - General Family Medicine 09/07/24 documented as of this encounter
--- OUTSIDE RECORDS SUMMARY | 2025-03-19 08:48 | XMS_ITS | Clinical Summary ---
Author Organization [facility] Address [address] [place] [address] Care Team Providers Care Finish Machine Tender Name Role Phone Unavailable Primary Care Provider Unavailabl e Source Comments The following information is NOT included in Care Everywhere downloads:Psychiatric notes, ECG results, Cardiac Rehab notes, Pulmonary Function notes, data from At[employer]ists (includes but not limited toPregnancy data,audiograms, eye exams, pre-surgical evaluation notes, well-child exam data).[facility] Medications Ojjaara 100 MG TABS Active triamcinolone 0.1 % cream Apply to affected area on trunk and extremities EVERY DAY to TWICE DAILY NEEDED Active Active Problems Problem Noted Date Diagnosed Date Myelofibrosis 02/12/2025 MDS (myelodysplastic syndrome) 02/12/2025 Pancytopenia 01/15/2025 Encounters Date Type Department Care Team Description 03/13/2025 Telephone [facility] Oncology Medical [address] [place] [address] [phone] Willow Bond LSW Encounter opened in error 03/12/2025 10:47 AM EDT - 03/12/2025 11:59 PM EDT Hospital Encounter [facility] Oncology Medical [address] [place] [address] [phone] Ramo Taylor MD Dx: Myelofibrosis (HCC) (Primary Dx) Discharge Disposition: HOV Discharge 03/12/2025 Social Work Visit [facility] Oncology Medical [address] [place] [address] [phone] Willow Bond LSW 03/12/2025 Travel 03/12/2025 Orders Only [facility] [address] [place] [address] [phone] Magdalena Ramos, PharmD 03/05/2025 Telephone [facility] Oncology Medical [address] [place] [address] [phone] Ramo Taylor MD 02/26/2025 Telephone [facility] Oncology Medical [address] [place] [address] [phone] Ramo Taylor MD 02/20/2025 9:16 AM EDT - 02/20/2025 11:59 PM EDT Hospital Encounter [facility] Radiology CT [address] [place] [address] [phone] Pancytopenia; Myelofibrosis (HCC); MDS (myelodysplastic syndrome) (HCC) Discharge Disposition: Discharge to Home 02/20/2025 Travel 02/14/2025 Telephone [facility] Oncology Medical [address] [place] [address] [phone] Juliette Schumacher RN 02/12/2025 Orders Only [facility] Oncology Medical [address] [place] [address] [phone] Ramo Taylor MD 02/11/2025 Telephone [facility] Oncology Medical [address] [place] [address] [phone] Ramo Taylor MD 02/05/2025 10:25 AM EDT - 02/05/2025 11:59 PM EDT Hospital Encounter [facility] Oncology Medical [address] [place] [address] [id number] Ramo Taylor MD Dx: Pancytopenia (Primary Dx) Discharge Disposition: HOV Discharge 02/05/2025 Orders Only [facility] [address] [place] [address] [phone] Magdalena Ramos, PharmD 02/05/2025 Travel 01/21/2025 9:36 AM EDT - 01/21/2025 11:59 PM EDT Hospital Encounter [facility] Oncology Medical [address] [place] [address] [id number] Dx: Pancytopenia (Primary Dx) Discharge Disposition: HOV Discharge 01/21/2025 Travel 01/15/2025 11:00 AM EDT - 01/15/2025 11:59 PM EDT Hospital Encounter [facility] Oncology Medical [address] [phone] Ramo Taylor MD Dx: Pancytopenia (Primary Dx) Discharge Disposition: HOV Discharge 01/15/2025 Orders Only [facility] [address] [id number] Magdalena Ramos, PharmD 01/15/2025 Travel from Last 3 Months Social History Tobacco [...] F) 03/12/2025 10:49 AM EDT Respiratory Rate 18 02/20/2025 12:1 5 PM EDT Oxygen Saturation 100% 03/12/2025 10: 49 AM EDT Inhaled Oxygen Concentration - - Weight 71.6 kg (157 lb 14.4 oz) 025 10:49 AM EDT Height 177.5 cm (5' 9.88 ) 03/12/2025 1 0:49 AM EDT Body Mass Index 22.73 03/12/2025 10:49 AM EDT Plan of Treatment Health Maintenance Due Date Last Done Comments Colonoscopy 1958 COVID-19 Vaccine (#1) 10/07/1963 Hepatitis C Antibody 1976 Tdap Booster 1976 Hepatitis A (HAV) Vaccine (optional start 19+ years) 0 1977 Pneumococcal Vaccine(s) (50+ yrs) (1 of 2 - PCV) 10/06 Shingles (RZV) Vaccine (1 of 2) 1977 CRC Screening 10/07/2003 Cologuard (Stool DNA) 10/07/2003 FIT 10/07/2003 Hepatitis B (HBV) Vaccine (optional start 60+ years) 0 2018 RSV vaccine (adult) (1 - Ris k 60-74 years 1-dose series) 2018 Influenza Vaccine (#1) 2025 Annual Wellness Visit (G0438) 06/17/2025 Cholesterol 06/25/2029 06/25/2024 Welcome to Medicare Visit (G0402) Completed 024 Procedures Procedure Name Priority Date/Time Associated Diagnosis Comments *SPECIMEN FOR SURGICAL PATHOLOGY Routine 02/20/2025 12:23 PM EDT Pancytopenia Myelofibrosis (HCC) CT BIOPSY BONE (MONIQUE) Routine 02/20/2025 11:36 AM EDT Pancytopenia Myelofibrosis (HCC) MDS (myelodysplastic syndrome) (HCC) DIAGNOSTIC BONE MARROW BIOPSY(IES) AND ASPIRATION(S) Routine 02/12/2025 6:22 PM EDT Pancytopenia Myelofibrosis (HCC) MDS (myelodysplastic syndrome) (HCC) BONE MARROW BIOPSY Routine 01/21/2025 11 :00 AM EDT Pancytopenia from Last 3 Months Results * *SPECIMEN FOR SURGICAL PATHOLOGY (02/20/2025 12:23 PM EDT) Case Report Surgical Pathology Report Case: [id number] Authorizing Provider: Anne Ha MD Collected: 02/20/2025 1223 Ordering Location: [facility] Radiology CT Received: 02/20/2025 1340 Pathologist: Isacc Dugan MD Specimen: Bone marrow, Right iliac 4:50 PM EDT S PATHOLOGY LABORATORY Final Diagnosis A. Bone marrow, right posterior iliac crest, biopsy: Limited specimen showing diffuse moderately fibrotic hypercellular marrow (80%) with an atypical megakaryocyte proliferation and granulocytic hyperplasia, see comment. . I certify that I personally conducted the diagnostic evaluation of the above specimen(s) and have rendered the final diagnosis(es). 5 4:50 PM EDT S PATHOLOGY LABORATORY at 1650 EDT Diagnosis Comment The patients [...] is hemodilute and unlikely to be fully commercial pest control representative of the marrow. The core biopsy [...] moderate, diffuse increase in reticulin fibrosis (grade MF-2). Collagen fibrosis appears limited to small focal areas around the trabecular bone without significant deposition in the intertrabecular space. By CD34 immunohistochemi stry, blasts do not appear to be increased overall. The findings raise the differential diagnosis [...] fibrotic phase, consistent with the previous diagnosis. 5 4:50 PM EDT S PATHOLOGY LABORATORY Intradepartmental Consult Intradepartmenta l consultation with Dr. Viki Can. 5 4:50 PM EDT [facility] Special Stains Iron: Storage iron present. No ring sideroblasts identified on a very limited clot section. Reticulin: Diffuse moderate increase in reticulin fiber deposition (grade MF-2) Trichrome: Focal paratrabecular collagen deposition. No significant intertrabecular collagen fiber deposition. 5 4:50 PM EDT [facility] Immunohistochemistry IMMUNOHISTOCHEMI STRY STUDIES: --- Interpretation-- - Antibody: CD34: [place] scattered immature cells (overall <5%) with a single focus demonstrating a slight increase (approximately 3-5% CD34+ cells). CD138: Highlights mildly increased plasma cells (approximately 5%) which are mostly scattered with occasional small loose clusters Factor VIII: Highlights increased atypical megakaryocytes with predominantly large size, tight and loose clustering. [place] & Lambda: Polytypic plasma cell staining pattern. Comment: The immunohistochemi solomon stains support the above diagnosis. The above immunohistochemi solomon stains are done for the evaluation and typing of a suspected malignant neoplasm and to further characterize the disease process. Controls: Verified in QA report. Disclaimer: Analyte-specific reagents / Laboratory developed tests / Modified FDA / In-situ hybridization tests used in immunohistochemi stry were developed and their performance characteristics determined by our vendors. [facility], Department of Pathology follows vendors' instructions and revalidate these tests as required. Some immunohistochemi solomon stains have not been cleared or approved by the US Food and Drug Administration. The FDA has determined that such clearance or approval is not necessary. This test is used for clinical purposes. It should not be regarded as investigational or for research. A negative result on a decalcified specimen (I.e., core biopsy of bone) should be interpreted with caution and may not be indicative of true expression status. A negative result on a Cytology Cell Block should be interpreted with caution and may not be indicative of the antibody's true expression status, and should be compared to a tissue sample when possible. This laboratory is certified under CLIA as qualified to perform high complexity testing. 4:50 PM T [facility] Microscopic Description ASPIRATE SMEAR: Differential count Total Cells Counted: 200 Cellular Component Percentage Reference Range (%) Segmented Neutrophils 16.5% 10.0-20.0 Bands 28.5% 10.0-20.0 Metamyelocytes 18% 5.0-25.0 Myelocytes 6% 5.0-20.0 Promyelocytes 2% 1.0-5.0 Myeloblasts 0.5% 1.0-2.0 Total Myeloid 71.5% Basophils 0.5% <=1.0 Eosinophils 0.5% <=6.0 Monocytes 1.0% Erythroid precursors 18.5% Reticuloendo cells 3.0% <=2.0 Lymphocytes 4.5% 5.0-20.0 Lymphoblasts 0% Plasma Cells 0.5% <=4.0 Unclassified 0% <=0.0 M:E Ratio 3.9:1 Adequacy: Aspirate smears are suboptimal and not likely commercial pest control representative of the marrow due to being aparticulate and hemodilute. Erythropoiesis: Present with sign language translator maturation. Granulopoiesis: Increased with maturation. Toxic granulation. Rare hypolobated neutrophils (<10%). Megakaryocytes: Increased in number with variable size and nuclear atypia. CORE BIOPSY: Adequacy: Adequate core biopsy with mild aspiration artifact. Cellularity: Markedly fibrotic marrow with patchy hypercellularity for age (80% cellular). Erythropoiesis: Decreased in number with occasional immature erythroid islands scattered throughout. Granulopoiesis: Increased with mature forms present. Megakaryocytes: Increased megakaryocytes of various sizes with loose and tight clustering, hyperchromasia, and cloud-like to bizarre nuclear atypia. Lymphoid infiltrate: No lymphoid aggregates identified. Other: Mild osteosclerosis. No granulomata identified. CLOT SECTION: Adequacy: Suboptimal clot section that is predominantly blood and bone fragments. Minute marrow particle present with severe aspiration artifact. Cellularity: Cannot determine. Erythropoiesis: Present with maturation. Granulopoiesis: Present with maturation. Megakaryocytes: Increased megakaryocytes with clustering and atypical hyperchromasia and cloud-like forms. Lymphoid infiltrate: No lymphoid aggregates identified. PERIPHERAL BLOOD SMEAR: CBC: No recent data available. Last reported CBC performed at outside laboratory on 09/21/2024. Interpretation / slide review: Unavailable. 5 4:50 PM EDT S PATHOLOGY LABORATORY Clinical Information 02/15 5 4:50 PM EDT [facility] Gross Description A. Requisitioned as bone marrow biopsy . The specimen is received in B Fix in a single container, labeled with patient's name, medical record number, and surgical number. Marked as marrow . The specimen consists of 1 pink-diaz core needle biopsy measuring 1.5 cm in length (with additional red-brown soft tissue mixed with blood clot material measuring 1.6 x 0.8 x 0.2 cm in aggregate). The biopsy specimen is submitted toto in two cassettes; core biopsy in A1 after decalcification and additional material specimen in A2. 4:50 PM EDT [facility] Tissue BONE MARROW SPECIMEN / Unknown 02/20/2025 12:23 PM EDT 02/20/2025 1:40 PM EDT us Anne Ha MD EC CP/AP ORDERABLE Final R esult [facility] [address] [place] [address] * CT BIOPSY BONE (MONIQUE) (02/20/2025 11:36 AM EDT) CTDI VOL 0.07 (mGy),0.07 (mGy),16.78 (mGy),66.74 (mGy) RADIOLOGY PHANTOM TYPE IEC Body Dosimetry Phantom,IEC Body Dosimetry Phantom,IEC Body Dosimetry Phantom,IEC Body Dosimetry Phantom RADIOLOGY CT DLP 333.89 (mGy.cm) RADIOLOGY CT Series Topogram,Shravan gram,i-SPIRAL ,i-Sequence RADIOLOGY Anatomical Region Laterality Modality CT Procedure N/A Computed Tomogra phy 02/20/2025 3:17 PM EDT Narrative 02/22/2025 9:32 AM EDT EXAMINATION: CT BIOPSY BONE (MONIQUE) 02/20/2025 11:36 AM CLINICAL HISTORY: Rad Procedure required: = BONE MARROW BIOPSY,bone marrow biopsy under CT guidance ASSOCIATED DIAGNOSIS: Pancytopenia Myelofibrosis (HCC) MDS (myelodysplastic syndrome) (HCC) ORDERING PROVIDER: LASHELL TRUJILLO TECHNOLOGISTS NOTE: Sedation start: 1102 Sedation end: 1122 Versed given: .5 mg Fentanyl given: 100 mcg ATTENDING PHYSICIAN: Anne Ha RESIDENT/FELLOW PHYSICIAN: Frankie Wayne INTRA-PROCEDURE MEDS: SEDATION TIME: Start time: 1102 Stop time: 112 INFORMED CONSENT: Written informed consent was obtained. The procedure, risks, benefits, and alternatives were discussed. All questions were answered. TIMEOUT: Physician led timeout was conducted documenting correct patient, procedure, site, fire risk, antibiotics and allergies. COMPLICATIONS: None ESTIMATED BLOOD LOSS: Less than 10 mL TECHNIQUE: After the risks, benefits, and alternatives were explained to the patient, written informed consent was obtained. The patient was placed in the prone position. A timeout was performed and the patient's skin over the right lower back was marked using imaging guidance. The skin was prepped and draped in the usual sterile fashion. Local anesthesia was provided with injection of 1% lidocaine. Using CT guidance and an OnControl device a core bone biopsy and bone marrow aspirate were obtained. The patient tolerated the procedure well and there were no immediate complications. FINDINGS: Initial images identify the right iliac bone to be biopsied and the path for biopsy. Images made during biopsy demonstrate guide needle position directly adjacent to the target. IMPRESSION: Technically successful uncomplicated bone marrow biopsy. Dry tap. Small amount of aspirated blood was sent to the lab. MACRO: None I have personally reviewed the images and agree with the resident's interpretation. Procedure Note Anne Ha MD - 02/22/2025 EXAMINATION: CT BIOPSY BONE (MONIQUE) 02/20/2025 11:36 AM CLINICAL HISTORY: Rad Procedure required: = BONE MARROW BIOPSY,bone marrowbiopsy under CT guidance ASSOCIATED DIAGNOSIS: Pancytopenia Myelofibrosis (HCC) MDS (myelodysplastic syndrome) (HCC) ORDERING PROVIDER: LASHELL TRUJILLO TECHNOLOGISTS NOTE: Sedation start: 1103 Sedation end: 1123 Versed given:.5 mg Fentanyl given: 100 mcg ATTENDING PHYSICIAN: Anne Ha RESIDENT/FELLOW PHYSICIAN: Frankie Wayne INTRA-PROCEDURE MEDS: SEDATION TIME: Start time: 1103 Stop time: 1123 INFORMED CONSENT: Written informed consent was obtained. The procedure, risks, benefits, andalternatives were discussed. All questions were answered. TIMEOUT: Physician led timeout was conducted documenting correct patient,procedure, site, fire risk, antibiotics and allergies. COMPLICATIONS: None ESTIMATED BLOOD LOSS: Less than 10 mL TECHNIQUE: After the risks, benefits, and alternatives were explained tothe patient, written informed consent was obtained. The patient was placedin the prone position. A timeout was performed and the patient's skin overthe right lower back was marked using imaging guidance. The skin wasprepped and draped in the usual sterile fashion. Local anesthesia wasprovided with injection of 1% lidocaine. Using CT guidance and anOnControl device a core bone biopsy and bone marrow aspirate wereobtained. The patient tolerated the procedure well and there were noimmediate complications. FINDINGS: Initial images identify the right iliac bone to be biopsied and the pathfor biopsy. Images made during biopsy demonstrate guide needle position directlyadjacent to the target. IMPRESSION: Technically successful uncomplicated bone marrow biopsy. Dry tap. Small amount of aspirated blood was sent to the lab. MACRO: None I have personally reviewed the images and agree with the resident'sinterpretation. Lashell Trujillo DO EC CT SCAN Final Result * BONE MARROW BIOPSY (01/21/2025 11:00 AM EDT) Case Report Surgical Pathology Report Case: [id number] Authorizing Provider: Lashell Trujillo, Collected: 01/21/2025 1100 DO Ordering Location: [facility] Oncology Received: 01/22/2025 0853 Medical Pathologist: Yarely Garg MD Specimen: Bone marrow, Posterior ilic crest 8:44 AM EDT S PATHOLOGY LABORATORY Final Diagnosis A. Bone marrow, Posterior Iliac crest Markedly limited bone marrow evaluation displaying rare clusters of hyperchromatic megakaryocytes, few erythroid and myeloid cells, moderate reticulin fibrosis, and crush artifact. (see comment, microscopic description, special stains, and immunohistochemi stry result) Comment: Patient's recent (December 2024) findings of left shifted dysgranulopoieti c marrow with 3% circulating myeloblasts, trisomy 8 by FISH, and positive JAK2 V617F and TET2 mutations consistent with Myelofibrosis is noted. An additional mutational variant of unknown significance was also identified (TP53 [id number]). The above bone marrow evaluation is markedly limited due to scant subcortical bone marrow elements and marked crush artifact. Rare clusters of hyperchromatic megakaryocytes are noted with associated reticulin fibrosis. Granulopoiesis and erythropoiesis are difficult to evaluate due to the limited material. No increase in blast cells seen. The overall findings maybe compatible with the patient's history; however, clinical correlation and follow-up are recommended. . I certify that I personally conducted the diagnostic evaluation of the above specimen(s) and have rendered the final diagnosis(es). 8:44 AM [facility] PATHOLOG[facility]ATORY at 0844 EDT Gross Description A. Requisitioned as bone marrow, posterior iliac crest . The specimen is received in B Fix in a single container, labeled with patient's name, medical record number, and surgical number. Marked as marrow . The specimen consists of 1 pink-diaz core needle biopsy measuring 0.9 cm in length (with additional red-brown soft tissue mixed with blood clot material measuring 1.5 x 1.2 x 0.3 cm in aggregate). The biopsy specimen is submitted toto in two cassettes; core biopsy in A1 after decalcification and additional material specimen in A2. [1] kd 8:44 AM T [facility] Special Stains --- Interpretation-- - Stain: Iron stain: Shows focus stainable iron present. No ring sideroblasts are seen. Reticulin stain: Shows focal moderate increase in reticulin fibrosis (MF-2). Trichrome stain: Very focal mild collagen fibrosis Note: Evaluation of the above stains is markedly limited by scant material crush artifact. Please interpret results in correlation with clinical findings 8:44 AM T [facility] Immunohistochemistry IMMUNOHISTOCHEMI STRY STUDIES: --- Interpretation-- - Antibody: CD34: No increase in immature precursors cells seen; however, only very limited preserved bone marrow elements are present. Comment: The immunohistochemi solomon stain supports the above diagnosis. The above immunohistochemi solomon stains are done to further characterize the disease process. Controls: Verified in QA report. Disclaimer: Analyte-specific reagents / Laboratory developed tests / Modified FDA / In-situ hybridization tests used in immunohistochemi stry were developed and their performance characteristics determined by our vendors. [facility], Department of Pathology follows vendors' instructions and revalidate these tests as required. Some immunohistochemi solomon stains have not been cleared or approved by the US Food and Drug Administration. The FDA has determined that such clearance or approval is not necessary. This test is used for clinical purposes. It should not be regarded as investigational or for research. A negative result on a decalcified specimen (I.e., core biopsy of bone) should be interpreted with caution and may not be indicative of true expression status. A negative result on a Cytology Cell Block should be interpreted with caution and may not be indicative of the antibody's true expression status, and should be compared to a tissue sample when possible. This laboratory is certified under CLIA as qualified to perform high complexity testing. 8:44 AM EDT [facility] Microscopic Description ASPIRATE SMEAR: The bone marrow aspirate smears are markedly hemodilute due to dry tap. No bone marrow particles are present. Scattered granulocytes and precursors are noted with no significant morphologic abnormalities. No increase in blast cells seen. Scattered erythroid precursors are also present. There is no evidence of megaloblastoid change or dyspoiesis. Megakaryocytes are not seen due to the hemodilute nature of the specimen. CORE BIOPSY: The bone marrow biopsy mainly shows sclerotic cortical bone and minimal subcortical subcortical bone marrow elements limited by crush artifact. Cellularity can not be estimated in this biopsy due to the previous limitations. Clusters hyperchromatic megakaryocytes are focally noted. Granulopoiesis and erythropoiesis are difficult to evaluate due to the crushing artifact. CLOT SECTION: The bone marrow clot mainly shows blood clots with no preserved bone marrow elements. PERIPHERAL BLOOD SMEAR: CBC: 09/21/2024 WBC 5.3 k/ul HgB 7.7 g/dl MCV 93 fl Plts 423 k/ul 8:44 AM EDT [facility] Bone marrow BONE MARROW SPECIMEN / Unknown 01/21/2025 11:00 AM EDT 01/22/2025 8:53 AM EDT Lashell Trujillo DO EC CP/AP ORDERABLE Fin al Result [facility] [address] [place] [address] from Last 3 Months Insurance [employer]
--- OUTSIDE RECORDS SUMMARY | 2025-03-19 08:48 | XMS_ITS | Encounter Summary ---
Author Organization [facility] Address [address] [place] [address] Care Team Providers Care Supervisor Newspaper Deliveries Name Role Phone Unavailable Primary Care Provider Unavailabl e Reason for Visit * Reason Onset Date Comments Encounter opened in error 03/13/2025 Encounter Details Date Type Department Care Team (Late st Contact Info) Description 03/13/2025 Telephone [facility] Oncology Medical [address] [place], [place] [phone] Willow Bond LSW [address] [place], [place] [phone] Encounter opened in error Social History Tobacco Use Types Packs/Day Years Used Date Smoking Tobacco: Never Assessed Sex and Gender Information Value Date Recorded Sex Assigned at Not on file Legal Sex Male 11:23 AM EDT Gender Identity Not on file Sexual Orientation Not on file documented as of this encounter Miscellaneous Notes * Telephone Encounter - Willow Bond LSW - 03/13/2025 8:16 AM EDT Opened in error CARLEEN Guevara [id number] documented in this encounter Plan of Treatment Not on file documented as of this encounter Visit Diagnoses Not on filedocumented in this encounter
--- OUTSIDE RECORDS SUMMARY | 2025-03-19 08:48 | XMS_ITS | Encounter Summary ---
Author Organization [facility] Address [id number] [address] [place] [address] Care Team Providers Care Media Buyer Name Role Phone Dewey Enriquez DO Primary Care Provider +1 [phone] Encounter Details Date Type Department Care Team (Late st Contact Info) Description 12/12/2024 Orders Only [facility] - Family Medicine [address] [place] [phone] Evelyn Couch CMA Pleural effusion, right Social History Tobacco Use Types Packs/Day Years Used Date Smoking Tobacco: Former Cigarettes 1 45.2 1 08/26/1978 - 09/02/2024 Smokeless Tobacco: Never Alcohol Use Standard Drinks/Week Comments Yes 31 (1 standard drink = 0.6 oz pu re alcohol) 1 a night [facility] [employer] Answer Date Recorded In the past 12 months has for; to (do) electric, gas, oil, or water company threatened [...] often do you attend chur ch or denominational services? Never 06/25/2024 Do you belong to [...] Answer Date Recorded Total Score 0 12/05/2024 [facility] of Occupat ional Health - Occupational Stress [...] Recorded Do you need help finding a [facility] career [facility] and/or a training [...] - Family Medicine [address] [place] [phone] Dewey Enriquez DO [address], [facility] [address] documented as of this encounter Goals Goal Patient Goal Type Associated Problems Recent Progress Patient-Stated? Author <enter goal here> General Yes Molly Clark FELTING MACHINE OPERATOR Note: Evaluation of progress towards goal: Current Discharge Plan; home with spouse, self care, denies needs at this time. documented as of this encounter Procedures Procedure Name Priority Date/Time Associated Diagnosis Comments XR CHEST 2 VWS Routine 12/12/2024 3:57 PM EDT Pleural effusion, right documented in this encounter Results * X-ray chest 2 views (12/12/2024 3:57 PM EDT) Anatomical Region Laterality Modality Body, Chest N/A Computed Radiogr aphy us Dewey Enriquez DO IM DIAGNOSTIC IMAGING ORDER FERN Final Result documented in this encounter Visit Diagnoses Diagnosis Pleural effusion, right Unspecified pleural effusion documented in this encounter Additional Health Concerns Assessment Noted Time PHQ-9 Depression Total Score: 0 12/06/19 25 9:23 AM EDT documented as of this encounter Care Teams Media Buyer Relationship Specialty Start Date End Date eDwey Enriquez DO [address] [place] [address] PCP - General Family Medicine 09/07/24 documented as of this encounter
--- OUTSIDE RECORDS SUMMARY | 2025-03-19 08:48 | XMS_ITS | Encounter Summary ---
Author Organization [facility] Address [address] [place] [address] Care Team Providers Care Player Services Representative Name Role Phone Unavailable Primary Care Provider Unavailabl e Encounter Details Date Type Department Care Team (Late st Contact Info) Description 03/12/2025 Orders Only [facility] [address] [place], [place] [phone] Magdalena Ramos, PharmD [address] [place] [address] Social History Tobacco Use Types Packs/Day Years Used Date Smoking Tobacco: Never Assessed Sex and Gender Information Value Date Recorded Sex Assigned at Not on file Legal Sex Male 11:23 AM EDT Gender Identity Not on file Sexual Orientation Not on file documented as of this encounter Plan of Treatment Not on file documented as of this encounter Visit Diagnoses Diagnosis Pancytopenia- Primary Other pancytopenia documented in this encounter
--- OUTSIDE RECORDS SUMMARY | 2025-03-19 08:48 | XMS_ITS | Encounter Summary ---
Author Organization [facility] [employer] Address [id number] [address] [place] [address] Care Team Providers Care Nuclear Reactor Technician Name Role Phone Dewey Enriquez DO Primary Care Provider [phone] Encounter Details Date Type Department Care Team (Late st Contact Info) Description 09/07/2024 Orders Only [facility], A Department of [address] [address] [place] [address] [place] [address] [address] [place] [id number] Social History Tobacco Use Types Packs/Day Years Used Date Smoking Tobacco: Every Day Cigarettes 1 45.7 Started: 06/25/1979 Smokeless Tobacco: Never Alcohol Use Standard Drinks/Week Comments Yes 35 (1 standard drink = 0.6 oz pu re alcohol) 4 or 5 a night [facility] Utilities Answer Date Recorded In the past 12 months has [employer], oil, or water [employer] threatened to shut off services in your [...] often do you attend chur ch or mormonism services? Never 06/25/2024 Do you belong to any clubs o r organizations such as scientology groups, unions, fraternal or athletic groups, or [...] Answer Date Recorded Total Score 0 09/06/2024 [facility] of Occupat ional Health - Occupational [...] Do you need help finding a [facility] career center and/or a training [...] documented as of this encounter Functional Status documented as of this encounter Plan of Treatment Upcoming Encounters Date Type Department Care Team (Late st Contact Info) Description 07/08/2025 9:00 AM EST Office Visit [facility] - Family Medicine [address] [place] [address] Dewey Enriquez DO [address] [facility] [place] [address] documented as of this encounter Goals Goal Patient Goal Type Associated Problems Recent Progress Patient-Stated? Author <enter goal here> General Yes Molly Clark, CLEARING HOUSE CLERK Note: Evaluation of progress towards goal: Current Discharge Plan; home with spouse, self care, denies needs at this time. documented as of this encounter Visit Diagnoses Not on filedocumented in this encounter Additional Health Concerns Assessment Noted Time PHQ-9 Depression Total Score: 0 09/06/19 10:28 AM EST documented as of this encounter Care Teams Nuclear Reactor Technician Relationship Specialty Start Date End Date Dewey Enriquez DO [address] [facility] [place] [address] PCP - General Family Medicine 09/07/24 documented as of this encounter
--- OUTSIDE RECORDS SUMMARY | 2025-03-19 08:48 | XMS_ITS | Encounter Summary ---
Author Organization [facility] Address [address] [facility] [place] [address] Care Team Providers Care Pilot Plant Research Technician Name Role Phone Unavailable Primary Care Provider Unavailabl e Encounter Details Date Type Department Care Team (Late st Contact Info) Description 03/12/2025 Social Work Visit [facility] Oncology Medical [address] [place], [place] [phone] Willow Bond LSW [address] [place], [place] [phone] Social History Tobacco Use Types Packs/Day Years Used Date Smoking Tobacco: Never Assessed Sex and Gender Information Value Date Recorded Sex Assigned at Not on file Legal Sex Male 11:23 AM EDT Gender Identity Not on file Sexual Orientation Not on file documented as of this encounter Progress Notes * Willow Bond LSW - 03/13/2025 8:18 AM EDT MK [facility] , Marla[facility]. Pt met with Dr. Joel but due to the distance between his home and , Pt will seek treatment at . MK educated Pt on emotional support services available through [facility] and explained that services can be accessed virtually and that [facility] canalso direct them to services in their area. Pt accepted the referral to [facility]. MK submitted [facility] referral through [facility]. CARLEEN Guevara [id number] documented in this encounter Plan of Treatment Not on file documented as of this encounter Visit Diagnoses Not on filedocumented in this encounter
--- OUTSIDE RECORDS SUMMARY | 2025-03-19 08:48 | XMS_ITS | Clinical Summary ---
Author Organization [employer] Address [id number] [address] [place] [address] Care Team Providers Care Woods Boss Name Role Phone Dewey Enriquez DO Primary Care Provider Allergies No known active allergies Medications cholecalcifero l, vitamin D3, (VITAMIN D3) 10 mcg (400 unit) capsule Active rosuvastatin (CRESTOR) 10 mg tablet Take 1 tablet (10 mg total) by mouth nightly. 30 tablet 11 4 Active OJJAARA 100 mg tablet 5 Active triamcinolone (KENALOG) 0.1 % cream Apply to affected area on trunk and extremities EVERY DAY to TWICE DAILY NEEDED 5 Active prochlorperazi ne (COMPAZINE) 5 mg tablet prn 5 Active ferrous sulfate 325 (65 FE) MG tablet Take 1 tablet (325 mg total) by mouth in the morning. 5 Active ascorbic acid, vitamin C, (VITAMIN C) 1000 mg tablet Take 1 tablet (1,000 mg total) by mouth in the morning. 5 Active melatonin 10 mg tablet Take 1 tablet by mouth nightly. 5 03/07/20 25 Discontin ued(Thera py completed ) Active Problems Problem Noted Date Diagnosed Date Pleural effusion, right 11/01/2024 Primary myelofibrosis 10/04/2024 Splenomegaly 10/04/2024 Severe anemia 09/08/2024 Lymphadenopathy, inguinal 09/08/2024 Memory loss 09/06/2024 Resolved Problems Problem Noted Date Diagnosed Date Resolved Date Traumatic leg ulcer, right, with fat layer exposed 09/10/2024 11/01/2024 Cellulitis of right lower extremity 09/08/2024 11/01/2024 Cigarette smoker 06/25/2024 09/21/2024 Encounters Date Type Department Care Team Description 03/07/2025 10:00 AM EDT Office Visit [facility] - Family Medicine [address] [place] [address] Dewey Enriquez, Primary myelofibrosis (CMS-HCC) (Primary Dx); Severe anemia 03/07/2025 Travel 01/02/2025 Travel from Last 3 Months Family History Medical [...] Answered Alcohol Use Standard Drinks/Week Comments Yes 7 (1 standard drink = 0.6 oz pur e alcohol) 1 a night [facility] [employer] Answer Date Recorded In the past 12 months has [employer] electric, gas, oil, or water company threatened [...] How often do you attend chur or episcopalian services? Never 06/25/2024 Do you belong to any clubs o r organizations such as yazidism groups, unions, fraternal or athletic groups, or [...] Answer Date Recorded Total Score 0 03/07/2025 [facility] of Occupat ional Health - Occupational [...] Recorded Do you need help finding a [facility] and/or a training program? [...] Mass Index 23.23 03/07/2025 10:02 AM EDT Plan of Treatment Upcoming Encounters Date Type Department Care Team (Late st Contact Info) Description 07/08/2025 9:00 AM EST Office Visit [facility] - Family Medicine [address] [place] [address] Dewey Enriquez, [address], [place] [address] Health Maintenance Due Date Last Done Comments Zoster (Shingles) Vaccine (1 of 2) 1977 Abdominal Aortic Aneurysm (A AA) Screen 10/07/2023 Influenza Vaccine 03/18/2025 Medicare Annual Wellness Visit 06/25/2025 06/25/2024 Colon Cancer Screening 3 Yea r Cologuard 07/18/2025 Postponed from 10/06 (Patient Refused) Adult BMI Screening 03/07/2026 03/07/2025 Depression Screening 03/07/2026 03/07/2025 Fall Risk Screening 03/07/2026 03/07/2025 Tobacco Screening 03/07/2026 03/07/2025 DTaP,Tdap and Td Vaccines (2 - Td or Tdap) 01/20/2027 01/20/2017 Goals Goal Patient Goal Type Associated Problems Recent Progress Patient-Stated? Author <enter goal here> General Yes Molly Clark, FOREPART ROUNDER Note: Evaluation of progress towards goal: Current Discharge Plan; home with spouse, self care, denies needs at this time. Medical Devices Not on file Insurance [employer]is BENEFITS [employer] MEDICARE Advance Directives * Full Code (Latest Code Status on File) Date Activated Date Inactivated Comments 09/08/2024 1:29 AM 09/12/2024 5:34 PM Care Teams Woods Boss Relationship Specialty Start Date End Date Dewey Enriquez DO [address], [place] [place] [address] PCP - General Family Medicine 09/07/24
--- OUTSIDE RECORDS SUMMARY | 2025-03-19 08:48 | XMS_ITS | Encounter Summary ---
Author Organization [facility] Address [address] [place] [address] Care Team Providers Care Finance Attorney Name Role Phone Unavailable Primary Care Provider Unavailabl e Encounter Details Date Type Department Care Team (Latest Contact Info) Description 03/12/2025 Travel Social History Tobacco Use Types Packs/Day [...]
--- OUTSIDE RECORDS SUMMARY | 2025-03-19 08:49 | XMS_ITS | Encounter Summary ---
Author [facility] Address [id number] [address] [place] [address] Care Team Providers Care Web Coordinator Name Role Phone Dewey Enriquez DO Primary Care Provider [phone] [phone] Encounter Details Date Type Department Care Team (Late st Contact Info) Description 09/27/2024 Orders Only [facility] - Family Medicine [address] [place] [phone] Evelyn Couch CMA Chronic obstructive pulmonary disease, unspecified COPD type ([facility]) Social History Tobacco Use Types Packs/Day Years Used Date Smoking Tobacco: Former Cigarettes 1 45.2 1 08/26/1978 - 09/02/2024 Smokeless Tobacco: Never Alcohol Use Standard Drinks/Week Comments Yes 35 (1 standard drink = 0.6 oz pu re alcohol) 4 or 5 a night [facility] Utilities Answer Date Recorded In the past 12 months has [employer] electric, gas, oil, or water company threatened [...] often do you attend chur ch or moravian services? Never 06/25/2024 Do you belong to any clubs o r organizations such as methodist groups, unions, fraternal or athletic groups, or [...] Answer Date Recorded Total Score 0 09/21/2024 [facility] of Occupat ional Health [...] Recorded Do you need help finding a [facility] career center and/or a training program? [...] Medicine [address] [place] [address] Dewey Enriquez DO [address], [place] [address] documented as of this encounter Goals Goal [...] Chronic obstructive pulmonary disease, unspecified COPD type ([facility]) documented in this encounter Results * Pulmonary function test Complete PFT w/ BD (Spirometry (Flow Volume Loop) pre/post short acting bronchodilator w/ DLCO (diffusion study) and Lung Volume) (09/27/2024 9:28 AM EDT) us Dewey Enriquez DO PFT ORDERABLES Final Result MANUALLY TRANSCRIBED RESULTS documented in this encounter Visit Diagnoses Diagnosis Chronic obstructive pulmonary disease, unspecified COPD type ([facility]) documented in this encounter Additional Health Concerns Assessment Noted Time PHQ-9 Depression Total Score: 0 09/22/19 9:03 AM EST documented as of this encounter Care Teams Web Coordinator Relationship Specialty Start Date End Date Dewey Enriquez DO [address] [facility], [facility] [place] [address] PCP - General Family Medicine 09/07/24 documented as of this encounter
--- OUTSIDE RECORDS SUMMARY | 2025-03-19 08:49 | XMS_ITS | Encounter Summary ---
Author Organization [employer] Address [id number] [address] [place] [address] Care Team Providers Care Rn Recruitment Name Role Phone Dewey Enriquez DO Primary Care Provider [phone] [phone] Encounter Details Date Type Department Care Team (Late st Contact Info) Description 10/01/2024 [facility]phone [facility] [address] [place] [address] Leeanne Weems CMA Social History Tobacco Use Types Packs/Day Years Used Date Smoking Tobacco: Former Cigarettes 1 45.2 1 08/26/1978 - 09/02/2024 Smokeless Tobacco: Never Alcohol Use Standard Drinks/Week Comments Yes 35 (1 standard drink = 0.6 oz pu re alcohol) 4 or 5 a night [facility] Utilities Answer Date Recorded In the past 12 months has [employer] electric, gas, oil, or water company threatened [...] often do you attend chur ch or protestant services? Never 06/25/2024 Do you belong to any clubs o r organizations such as hindu groups, unions, fraternal or athletic groups, or [...] Answer Date Recorded Total Score 0 09/21/2024 [facility] of Occupat ional Health - [...] Recorded Do you need help finding a [facility] career center and/or a training program? No [...] not see anything in there for a counsel , just one for dr. hubbard .pls advise * Telephone Encounter - Dewey Enriquez DO - 10/01/2024 10:25 AM EDT Okay. Order sent documented in this encounter Plan of Treatment Upcoming Encounters Date Type Department Care Team (Late st Contact Info) Description 07/08/2025 9:00 AM EST Office Visit [facility] - Family Medicine [address] [place] [address] Dewey Enriquez DO [address], [place] [address] documented as of this encounter Goals Goal Patient Goal Type Associated Problems Recent Progress Patient-Stated? Author <enter goal here> General Yes Molly Clark MANAGER PRIVATE Note: Evaluation of progress towards goal: Current Discharge Plan; home with spouse, self care, denies needs at this time. documented as of this encounter Visit Diagnoses Not on filedocumented in this encounter Additional Health Concerns Assessment Noted Time PHQ-9 Depression Total Score: 0 09/22/19 9:03 AM EST documented as of this encounter Care Teams Rn Recruitment Relationship Specialty Start Date End Date Dewey Enriquez DO [address], [place] [address] PCP - General Family Medicine 09/07/24 documented as of this encounter
--- OUTSIDE RECORDS SUMMARY | 2025-03-19 08:49 | XMS_ITS | Encounter Summary ---
Author Organization [employer] Address [id number] [address] [place] [address] Care Team Providers Care Survey Coordinator Name Role Phone Dewey Enriquez DO Primary Care Provider [phone] Encounter Details Date Type Department Care Team (Late st Contact Info) Description 09/27/2024 [facility]phone [facility] [address] [place] [address] Leeanne Weems CMA Social History Tobacco Use Types Packs/Day Years Used Date Smoking Tobacco: Former Cigarettes 1 45.2 1 08/26/1978 - 09/02/2024 Smokeless Tobacco: Never Alcohol Use Standard Drinks/Week Comments Yes 35 (1 standard drink = 0.6 oz pu re alcohol) 4 or 5 a night [facility] Utilities Answer Date Recorded In the past 12 months has [employer] electric, gas, oil, or water company threatened [...] often do you attend chur ch or adventism services? Never 06/25/2024 Do you belong to any clubs o r organizations such as restorationist groups, unions, fraternal or athletic groups, or [...] Answer Date Recorded Total Score 0 09/21/2024 [facility] of Occupat ional Health - Occupational [...] Recorded Do you need help finding a [facility] career center and/or a training [...] Medicine - Family Medicine [address] [place] [address] Dewey Enriquez DO [address] [facility] [place] [address] documented as of this encounter Goals Goal Patient Goal Type Associated Problems Recent Progress Patient-Stated? Author <enter goal here> General Yes Molly Clark POLICE CHIEF DEPUTY Note: Evaluation of progress towards goal: Current Discharge Plan; home with spouse, self care, denies needs at this time. documented as of this encounter Visit Diagnoses Not on filedocumented in this encounter Additional Health Concerns Assessment Noted Time PHQ-9 Depression Total Score: 0 09/22/19 9:03 AM EST documented as of this encounter Care Teams Survey Coordinator Relationship Specialty Start Date End Date Dewey Enriquez DO [address] [facility], [place] [address] PCP - General Family Medicine 09/07/24 documented as of this encounter
--- OUTSIDE RECORDS SUMMARY | 2025-03-19 08:50 | XMS_ITS | Encounter Summary ---
Author Organization [employer] Address [id number] [address] [place] [address] Care Team Providers Care Wood Lathe Operator Name Role Phone Dewey Enriquez DO Primary Care Provider [phone] Encounter Details Date Type Department Care Team (Late st Contact Info) Description 10/25/2024 [facility]phone [facility] [address] [place] [address] Leeanne Weems CMA Social History Tobacco Use Types Packs/Day Years Used Date Smoking Tobacco: Former Cigarettes 1 45.2 1 08/26/1978 - 09/02/2024 Smokeless Tobacco: Never Alcohol Use Standard Drinks/Week Comments Yes 35 (1 standard drink = 0.6 oz pu re alcohol) 4 or 5 a night [facility] Utilities Answer Date Recorded In the past 12 months has [employer] electric, gas, oil, or water company threatened [...] often do you attend chur ch or jew services? Never 06/25/2024 Do you belong to any clubs o r organizations such as gnosticism groups, unions, fraternal or athletic groups, or [...] Answer Date Recorded Total Score 0 09/21/2024 [facility] of Occupat ional Health - [...] Recorded Do you need help finding a [facility] career center and/or a training program? No [...] Can you [facility] in [place] * Telephone Encounter - Dewey Enriquez DO - 10/25/2024 4:52 PM EDT I do not think I made the referral to the reinforcing iron and rebar workers. What is it for? * Telephone Encounter [...] Medicine - Family Medicine [address] [place] [address] Dewey Enriquez DO [address], [facility] [place] [address] documented as of this encounter Goals Goal Patient Goal Type Associated Problems Recent Progress Patient-Stated? Author <enter goal here> General Yes Molly lCark, ENGINEERING SPECIALIST TECHNICIAN Note: Evaluation of progress towards goal: Current Discharge Plan; home with spouse, self care, denies needs at this time. documented as of this encounter Visit Diagnoses Not on filedocumented in this encounter Additional Health Concerns Assessment Noted Time PHQ-9 Depression Total Score: 0 09/22/19 9:03 AM EST documented as of this encounter Care Teams Wood Lathe Operator Relationship Specialty Start Date End Date Dewey Enriquez DO [address], [facility] [address] PCP - General Family Medicine 09/07/24 documented as of this encounter
--- OUTSIDE RECORDS SUMMARY | 2025-03-19 08:50 | XMS_ITS | Encounter Summary ---
[id number] [place] [address] Care Team Providers Care Bank Cashier Name Role Phone Dewey Enriquez DO Primary Care Provider [phone] Encounter Details Date Type Department Care Team (Late st Contact Info) Description 10/08/2024 Orders Only [facility] Internal Medicine - Family Medicine [address] [place] [place] [id number] Evelyn Couch CMA Severe anemia; Special screening for malignant neoplasm of colon Social History Tobacco Use Types Packs/Day Years Used Date Smoking Tobacco: Former Cigarettes 1 45.2 1 08/26/1978 - 09/02/2024 Smokeless Tobacco: Never Alcohol Use Standard Drinks/Week Comments Yes 35 (1 standard drink = 0.6 oz pu re alcohol) 4 or 5 a night [facility] [employer] Answer Date Recorded In the past 12 months has [employer], gas, oil, or water company threatened [...] often do you attend chur ch or tenriism services? Never 06/25/2024 Do you belong to any clubs o r organizations such as orthodoxy groups, unions, fraternal or athletic groups, or [...] Recorded Do you need help finding a [facility] career center and/or a training [...] - Family Medicine [address] [place] [address] Dewey Enriquez DO [address] [facility] [place] [address] documented as of this encounter Goals Goal [...] documented as of this encounter Care Teams Bank Cashier Relationship Specialty Start Date End Date Dewey Enriquez DO [address] [facility], [place] [address] PCP - General Family Medicine 09/07/24 documented as of this encounter
--- OUTSIDE RECORDS SUMMARY | 2025-03-19 08:53 | XMS_ITS | CCD ---
Author Organization [facility] Care Team Providers Care Bundle Tier Name Role Phone GORDILLO, CHRISTOPHER Unavailable Unavailable GORDILLO, CHRISTOPHER Unavailable Unavailable HAY, MELBA Unavailable Unavailable FURLONG, DEWEY Unavailable Unavailable OK Unavailable Unavailable GORDILLO, CHRISTOPHER Unavailable Unavailable GORDILLO, [...] Unavailable Unavailable HAY, MELBA Unavailable Unavailable Furlong Dewey YOUNG G Primary Care Provider Furlong DODewey G Primary Care Provider [phone] LUCIALONG, DEWEY G Referring Unavailable FURLONG, DEWEY G [...] Unavailable Furlong Dewey YOUNG Primary Care Provider [phone] Furlong Dewey YOUNG Attending Provider GEREMIAS SOTO Attending Unavailable FURLONG, DEWEY G Primary Care Unavailable KEYUR STUART Attending Unavailable FURLONG, DEWEY G Referring Unavailable FURLONG, DEWEY G Primary Care Unavailable Martita Hopper MD Attending Provider Martita Hopper Admitting Unavailable Martita Hopper Attending Unavailable Furlong, Dewey Admitting Unavailable Furlong, Dewey Attending Unavailable Furlong, Dewey Primary Care Unavailable Furlong DO, Dewey G Primary Care Provider [phone] Unavailable Primary Care Provider Unavailabl e FURLONG, DEWEY G Attending Unavailable FURLONG, DEWEY G Referring Unavailable FURLONG, DEWEY G Primary Care Unavailable FURLONG, DEWYE G Attending Unavailable FURLONG, DEWEY G Referring [...] Unavailable FURLONG, DEWEY G Primary Care Unavailable PROVIDER, UNKNOWN Admitting Unavailable PROVIDER, UNKNOWN Attending Unavailable DWAYNE, APOORA Referring Unavailable PROVIDER, UNKNOWN Attending Unavailable DWAYNE, APOORA Referring Unavailable PROVIDER, UNKNOWN Admitting Unavailable PROVIDER, UNKNOWN Attending Unavailable PROVIDER, UNKNOWN Admitting Unavailable LASHELL TRUJILLO Referring Unavaila ble PROVIDER, UNKNOWN Attending Unavailable PROVIDER, UNKNOWN Admitting Unavailable DWAYNE, APOORA Referring Unavailable PROVIDER, UNKNOWN Attending Unavailable PROVIDER, UNKNOWN Admitting Unavailable DWAYNE, APOORA Referring Unavailable Medications Current Medications Medication Drug Class(es) Dates Sig (Normalized) Sig (Original) ascorbic acid 1000 mg oral tablet (1 source) Vitamin C Start: take 1 tablet by mouth in the morning ascorbic acid, vitamin C, (VITAMIN C) 1000 mg tablet Take 1 tablet (1,000 mg total) by mouth in the morning. 03/07/2025 Active cephalexin 500 mg oral capsule (1 source) [...] 09/17/2024 Active cholecalciferol 0.01 mg oral capsule (15 sources) Vitamin D cholecalciferol, vitamin D3, (VITAMIN D3) 10 mcg (400 unit) capsule Active ferrous sulfate 325 mg oral tablet (1 source) Start: 5 take 1 tablet by mouth in the morning ferrous sulfate 325 (65 FE) MG tablet Take 1 tablet (325 mg total) by mouth in the morning. 03/07/2025 Active OJJAARA 100 mg tablet (4 sources) Start: 5 OJJAARA 100 mg tablet 10/16/2024 Active Ojjaara 100 MG TABS (14 sources) Start: 5 Ojjaara 100 MG TABS 10/16/2024 Active prochlorperazine 5 mg oral tablet (2 sources) Phenothiazine Start: 5 prochlorperazine (COMPAZINE) 5 mg tablet prn 11/04/2024 Active rosuvastatin calcium 10 mg oral tablet (14 sources) HMG-CoA Reductase Inhibitor Start: 4 take 1 tablet by mouth once daily rosuvastatin (CRESTOR) 10 mg tablet Take 1 tablet (10 mg total) by mouth nightly. 30 tablet 11 06/29/2024 Active triamcinolone acetonide 1 mg/ml topical cream (16 sources) Corticosteroid Start: 5 triamcinolone (KENALOG) 0.1 % cream Apply to affected area on trunk and extremities EVERY DAY to TWICE DAILY NEEDED 11/30/2024 Active Completed/Discontinued Medications Medication Drug Class(es) Dates Sig (Normalized) Sig (Original) 2 ml fentaNYL 0.05 mg/ml injection (1 source) Opioid Agonist Start: 02-20-2025 End: 02-20-2025 Intravenous, PRN, Starting on Tue02/20/25 at 1103, Until Tue02/20/25 at 1114, Intra Procedure melatonin 10 mg oral tablet (8 sources) Start: 09-14-2024 End: 03-07-2025 take 1 tablet by mouth once daily melatonin 10 mg tablet Take 1 tablet by mouth nightly. 09/14/2024 03/07/2025 Discontinued (Therapy completed) 2 ml midazolam 1 mg/ml injection (1 source) Benzodiazepine Start: 02-20-2025 End: 02-20-2025 Intravenous, PRN, Starting on Tue02/20/25 at 1103, Until Tue02/20/25 at 1103, Intra Procedure nystatin 100 unt/mg topical powder (5 sources) [...] Onset: 5 Chronic Deficiency and other anemia (20 sources) Pancytopenia; Translations: [Other pancytopenia] Onset: 5 01-15-2025 Chronic Deficiency and other anemia (1 source) Other pancytopenia; Translations: [Other pancytopenia (HCC)] Onset: 5 Chronic Deficiency and other anemia (17 sources) Anemia; Translations: [Anemia, unspecified] Onset: 5 09-08-2024 Episodic External Injury - Fall (1 source) [...] fracture with routine healing] Onset: 7 Episodic Neoplasms of unspecified nature or uncertain behavior (20 sources) Myelosclerosis with myeloid metaplasia; 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 [...] not elsewhere classified] Onset: 5 Episodic Other hematologic conditions (17 sources) Myelofibrosis; Translations: [Myelofibrosis] Onset: 5 01-21-2025 Chronic Other hematologic conditions (1 source) Myelofibrosis; Translations: [Myelofibrosis] Onset: 5 Chronic Other inflammatory condition of skin (1 source) Psoriasis vulgaris; Translations: [PSORIASIS VULGARIS] Onset: 7 Chronic Other screening for suspected conditions (not mental disorders or infectious disease) (2 sources) Radiology result abnormal; Translations: [Abnormal findings on diagnostic imaging of other specified body structures] Onset: 5 02-12-2025 Chronic Residual codes; unclassified (1 source) Colon cancer screening declined; Translations: [Procedure and treatment not carried out because of patient's decision for unspecified reasons] 06-25-2024 Episodic Residual codes; unclassified (1 source) Prostate cancer screening declined; Translations: [Procedure and treatment not carried out because of patient's decision for unspecified reasons] 06-25-2024 Episodic Residual codes; unclassified (1 source) Flushing; Translations: [Flushing] 09-06-2024 Episodic Substance-related disorders (18 sources) Nicotine dependence, cigarettes, uncomplicated; Translations: [Cigarette smoker ] Onset: 12-28-201 7 Resolved: 5 06-25-2024 Chronic Unclassified (2 sources) Unknown / UNK(Unknown) Onset: 7 Unclassified (1 source) Low Blood Count Onset: 5 Unclassified (1 source) Abnormal Lab Value Onset: 5 Unclassified (1 source) Referral Onset: 5 Past or Other Problems Problem Classification Problem Date Documented Da te Episodic/Chronic Chronic ulcer of skin (9 sources) Ulcer of lower extremity; Translations: [Non-pressure [...] IMPLNT/PROSTH/BONE PLT, RIGHT LEG] Onset: 08-03-2017 Episodic Deficiency and other anemia (3 sources) Anemia, unspecified; Translations: [Anemia, unspecified] Onset: 09-07-2024 Episodic Diabetes mellitus without complication (3 sources) Hyperglycemia; Translations: [Hyperglycemia, unspecified] Onset: 09-21-2024 09-21-2024 Episodic Lymphadenitis (14 sources) Inguinal lymphadenopathy; Translations: [Localized enlarged lymph nodes] Onset: 09-07-2024 09-08-2024 Episodic Mood disorders (15 sources) Mood disorders Onset: 06-25-2024 Resolved: 03-07-2025 06-25-2024 Other connective tissue disease (1 source) Arthrodesis status; Translations: [ARTHRODESIS STATUS] Onset: 08-03-2017 Episodic Other gastrointestinal disorders (7 sources) Splenomegaly; Translations: [Splenomegaly, not elsewhere classified] Onset: 10-04-2024 10-04-2024 Episodic Other screening for suspected conditions (not mental disorders or infectious disease) (6 sources) Patient encounter status; Translations: [Encounter for screening for cardiovascular disorders] Onset: 06-25-2024 06-25-2024 Episodic Pleurisy; pneumothorax; pulmonary collapse (7 sources) Pleural effusion; Translations: [Pleural effusion, not elsewhere classified] Onset: 11-01-2024 11-01-2024 Episodic Residual codes; unclassified (14 sources) Amnesia; Translations: [Other amnesia] Onset: 09-06-2024 09-06-2024 Episodic Residual codes; unclassified (2 sources) Other amnesia; Translations: [Other amnesia] Onset: 09-06-2024 Episodic Residual codes; unclassified (2 sources) Flushing; Translations: [Flushing] Onset: 09-06-2024 Episodic Screening and history of mental health and substance abuse codes (3 sources) Ex-cigarette smoker; Translations: [Personal history of nicotine dependence] Onset: 06-25-2024 09-21-2024 Episodic Skin and subcutaneous tissue infections (10 sources) Cellulitis of right lower limb; Translations: [Cellulitis of right lower limb] Onset: 09-08-2024 Resolved: 11-01-2024 09-08-2024 Episodic Unclassified (1 source) Patient encounter status 09-21-2024 Results Test Name Value Interpretation Reference Range Facility Progress Noteson 03-13-2025 Nurseryman Assistant Authentication Interface Message Text MK met with Pt and his , Marla, [facility]. Pt met with Dr. Craig but due to the distance between his home and , Pt will seek treatment at . MK educated Pt on emotional support services available through [facility] and explained that services can be accessed virtually and that [facility] can also direct them to services in their area. Pt accepted the referral to [facility]. [facility] . Willow ROQUE, CARLEEN [id number] [facility] Telephone Encounteron 2024 Nurseryman Assistant Authentication Interface Message Text Opened in error CARLEEN Guevara [id number] [facility] Progress Noteson 03-12-2025 Nurseryman Assistant [employer] Interactiveation Interface Message Text ----- Attestation signed by Korey Bueno MD at 03/12/2025 2:52 PM Attending Physician Attestation: I saw and evaluated the patient. I personally obtained the schwartz and critical portions of the history and physical exam. I reviewed the Fellow's documentation and discussed the patient as a team. I agree with the Fellow's medical decision making as documented in the note. Additional Note: Korey Bueno MD 03/12/2025 ----- HEMATOLOGY AND MEDICAL ONCOLOGY ----- [facility] Patient ID: Name: Penny Ordaz Encounter Date: 03/12/2025 PCP: No primary [...] THERAPY Current therapy has been given at [facility] per Dr. Martita Hopper MD PROCRIT 60.000 units once a week Luspatercept OJJAARA (Momelotinib) CURRENT ONCOLOGICAL PROBLEMS Weight loss: No, how many pounds: 15 Lbs, time frame weight loss: 2 months. Fever: No Chills: YES B-Symptoms: No Bone pain: No Lytic lesions: No Abdominal distention: No Nausea/Vomiting: No HISTORY OF PRESENT ILLNESS Penny Ordaz is a 64 year old male with a medical history that includes generalized anxiety, hyperlipidemia, psoriasis, and severe seborrheic dermatitis, initially presented to [facility] on September 08, 2024. He reported experiencing fatigue, [...] October 2024, the patient was evaluated at [facility] due to severe anemia once again. He was transfused with two additional units of RBCs and [...] most recent transfusion occurring this morning at [facility], where a hemoglobin level of 6.5 [...] a new BONE MARROW BIOPSY here at [facility] on 01/21/2025, and the results are [...] overt morphologic dysplasia (seen in cases of M (more content not included)... [facility] Telephone Encounteron 2024 Nurseryman Assistant Authentication Interface Message Text PT Called to confirm appt 03/12 also asked for a call back about Bone Valdez results AM. [facility] Telephone Encounteron 2024 Nurseryman Assistant Authentication Interface Message Text Akilah from DR Glez office called [facility] Telephone Encounteron 2024 Nurseryman Assistant Authentication Interface Message Text Patient was identified by name and date of . Juliette Schumacher RN Contacted patient to schedule bone marrow biopsy and oncology follow-up. Patient aware of bone marrow biopsy February 20 with 10:30 arrival and MD follow-up March 12. Will have labs tomorrow at OSH. Juliette Schumacher RN [facility] Progress Noteson 02-12-2025 Nurseryman Assistant Authentication Interface Message Text HEMATOLOGY AND MEDICAL ONCOLOGY ----- [facility] After a thorough discussion with the Interventional Radiology (IR) team, the radiology team, and the MRI team, we reached a consensus that conducting a bone marrow MRI will not provide any benefit in identifying the precise location for a bone marrow biopsy. The IR team is capable of performing the biopsy under CT guidance. This plan was discussed with Dr. Jordan and Dr. Ryder (radiologists) and has been communicated to Dr. Catalan and Ronnie. We will proceed with scheduling the new bone marrow biopsy (BMBx) to be performed by the IR team under imaging guidance. I spoke with the patient over the phone to explain the situation and the necessity of obtaining an accurate diagnosis, which is why the new BMBx is required. The patient expressed understanding but also shared that the previous bedside BMBx performed at the cancer center was very painful. He requested sedation if the pain is not adequately controlled with local lidocaine. I will relay this patient's concern to the IR team. Order placed in the system. Ramo Taylor MD Hematology and Medical Oncology Fellow Epic chat, [phone] [facility] Telephone Encounteron 2024 Nurseryman Assistant Authentication Interface Message Text PT Called back asking for follow up on MRI Informed of message from Dr. Wisam WANG. [facility] Nurseryman Assistant Authentication Interface Message Text Patient calling Patient states that he is to be scheduled for an MRI - I don't see any orders for an MRI Patient can be reached at [phone] [facility] Progress Noteson 02-05-2025 Nurseryman Assistant Authentication Interface Message Text MD to reach out to IR to see if IR guided bone marrow biopsy possibility. Will arrange follow-up after decision made regarding biopsy. Juliette Schumacher RN Normal [facility] [employer] Authentication Interface Message Text HEMATOLOGY AND MEDICAL ONCOLOGY ----- [id number] Patient ID: Name: Penny Ordaz Encounter Date: 02/05/2025 PCP: No primary care provider on file. REASON FOR THE CONSULT Suspected MDS versus Myelofibrosis DIAGNOSIS Suspected MDS versus Myelofibrosis CANCER: No prior history of malignancy documented STAGING Cancer Staging No matching staging information was found for the patient. CURRENT SITES OF DISEASE Pancytopenia MOLECULAR GENOMICS None SERUM TUMOR MARKERS None PRIOR THERAPY None CURRENT THERAPY Current therapy has been given at [facility] per Dr. Martita Hopper MD PROCRIT 60.000 units once a week Luspatercept started today OJJAARA (Momelotinib) CURRENT ONCOLOGICAL PROBLEMS Weight loss: No, how many pounds: 15 Lbs, time frame weight loss: 2 months. Fever: No Chills: YES B-Symptoms: No Bone pain: No Lytic lesions: No Abdominal distention: No Nausea/Vomiting: No HISTORY OF PRESENT ILLNESS Penny Ordaz is a 64 year old male with a medical history that includes generalized anxiety, hyperlipidemia, psoriasis, and severe seborrheic dermatitis, initially presented to [facility] on September 08, 2024. He reported experiencing fatigue, [...] October 2024, the patient was evaluated at [facility] due to severe anemia once again. He was transfused with two additional units of RBCs and [...] most recent transfusion occurring this morning at [facility], where a hemoglobin level of 6.5 [...] a new BONE MARROW BIOPSY here at [facility] on 01/21/2025, and the results are [...] this result is inconclusive for MDS and/or MPN PAST MEDICAL HISTORY Psoriasis Seborrheic dermatitis Anxiety Hyperlipidemia PAST SURGICAL HISTORY Surgical History[1] FAMILY HISTORY Brother with diabetes Sister with diabetes Mother with cervical CA SOCIAL HISTORY Heavy smoker for more than 40 years a pack daily Quit smoking in Aug 2024 CURRENT MEDS PROCRIT 60.000 units once a week Luspatercept started today OJJAARA (Momelotinib) ALLERGIES Patient has no allergy information on record. Subjective Feeling well after transfusion of RBCs No major side effects of the current therapy Objective Vitals: 02/05/25 1046 BP: 110/49 Pulse: 80 Resp: 18 Temp: 98 ???F (36.7 ???C) SpO2: 100% Vital Signs: weight is 151 lb 11.2 oz (68.8 kg). His oral temperature is 98 ???F (36.7 ???C). His blood pressure is 110/49 and his pulse is 80. His respiration is 18 and oxygen saturation is 100% (more content not included)... [facility] Addendum Noteon 01-21-2025 Nurseryman Assistant Authentication Interface Message Text Encounter addended by: Macy Salmeron on: 01/21/2025 12:46 PM Actions taken: Visit diagnoses modified, Order list changed, Diagnosis association updated [facility] Nurseryman Assistant Authentication Interface Message Text Encounter addended by: Azul Hidalgo RN on: 01/21/2025 11:58 AM Actions taken: Clinical Note Signed [facility] Progress Noteson 01-21-2025 Nurseryman Assistant Authentication Interface Message Text Patient was identified by name and date of . Azul Hidalgo RN The patient had a bone marrow biopsy x2 without complications. He was educated on side effects and potential complications/ risks. The sights were clean dry and in tact without bleeding on discharge. Madeline Hidalgo RN [facility] Nurseryman Assistant Authentication Interface Message Text Patient was identified by name and date of . VIDAL Guardado/MPA Patient at risk for falls:No Falls Risk protocol implemented: No [facility] Addendum Noteon 01-15-2025 Nurseryman Assistant Authentication Interface Message Text Encounter addended by: Lashell Trujillo DO on: 01/18/2025 1:05 PM Actions taken: Cosign clinical note with attestation [facility] Progress Noteson 01-15-2025 Nurseryman Assistant Authentication Interface Message Text ----- Attestation signed by Lashell Trujillo DO at 01/18/2025 1:05 PM Attending/Teaching Physician Note: I saw and evaluated Penny Ordaz. I personally obtained the schwartz and critical portions of the history and physical exam on 01/15/2025. I reviewed the fellow's documentation and discussed the patient with the fellow. I agree with the fellow's medical decision making as documented in the fellow's note. 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 The diagnosis is unclear but he has an identified Jak2 and TET mutations. Patient has been initiated o momelotinib. Plan to repeat the bone marrow biopsy at our facility. Once we have those results we will plan for further treatment. He will continue to follow up with Dr. Hopper as we work the patient up. Return to clinic after bone marrow biopsy resulted. Lashell Trujillo DO, MS Division Hematology / Oncology 01/18/2025 1:03 PM ----- HEMATOLOGY AND MEDICAL ONCOLOGY ----- [facility] Patient ID: Name: Penny Ordaz Encounter Date: 01/15/2025 PCP: No primary care provider on file. REASON FOR THE CONSULT Suspected MDS versus Myelofibrosis DIAGNOSIS Suspected MDS versus Myelofibrosis CANCER: No prior history of malignancy documented STAGING Cancer Staging No matching staging information was found for the patient. CURRENT SITES OF DISEASE Pancytopenia MOLECULAR GENOMICS None SERUM TUMOR MARKERS None PRIOR THERAPY None CURRENT THERAPY Current therapy has been given at [facility] per Dr. Martita Hopper MD PROCRIT 60.000 units once a week Luspatercept started today OJJAARA (Momelotinib) CURRENT ONCOLOGICAL PROBLEMS Weight loss: No, how many pounds: 15 Lbs, time frame weight loss: 2 months. Fever: No Chills: YES B-Symptoms: No Bone pain: No Lytic lesions: No Abdominal distention: No Nausea/Vomiting: No HISTORY OF PRESENT ILLNESS Penny Ordaz is a 64 year old male with a medical history that includes generalized anxiety, hyperlipidemia, psoriasis, and severe seborrheic dermatitis, initially presented to [facility] on September 08, 2024. He reported experiencing fatigue, [...] October 2024, the patient was evaluated at [facility] due to severe anemia once again. He was transfused with two additional units of RBCs and [...] most recent transfusion occurring this morning at [facility], where a hemoglobin level of 6.5 [...] and plan for possible Bone Marrow Transplant. PAST MEDICAL HISTORY Psoriasis Seborrheic dermatitis Anxiety Hyperlipidemia PAST SURGICAL HISTORY Surgical History[1] FAMILY HISTORY Brother with diabetes Sister with diabetes Mother with cervical CA SOCIAL HISTORY Heavy smoker for more than 40 years a pack daily Quit smoking in Aug 2024 CURRENT MEDS PROCRIT 60.000 units once a week Luspatercept started today OJJAARA (Momelotinib) ALLERGIES Patient has no allerg (more content not included)... [facility] Telephone Encounteron 2024 Nurseryman Assistant Authentication Interface Message Text Upon review of [...] back tomorrow. Pineda Parkinson RN [facility] Nurseryman Assistant Authentication Interface Message Text PT called to make appointment Scheduled by notes PT asked 01/15 at 1PM AM. [facility] Telephone Encounteron 2024 Nurseryman Assistant Authentication Interface Message Text Pt id'd by name and . Explained to pt the reason for call was to schedule appt. Pt stated he was not sure whether or not he needed appt and stated he will check w/his oncologist tomorrow. Pt accepted contact info and stated he will call back. Holding 12/[address] CRAIG. please make sure [facility] is updated. Pineda Parkinson RN [facility] John Paul 10-09-2024 L ----- Specimen: [id number] Received: 10/11/24 Status: QUOC Swain Num: [id number] Spec Type: Impression Subm Dr: Martita Hopper MD Tissues: PATHPER Procedures: PATHREVIEW Age/ Patient Sex Location Account Attending Physician Penny Ordaz/M LABELL [id number] Martita Hopper MD SPEC NUM: [id number] RECD: 10/11/24 STATUS: QUOC SWAIN NUM: [id number] BEV: 10/09/24 [facility] DR: Martita Hopper MD ENTERED: 10/11/[address]: William Ly SPEC TYPE: Impression DEPT: ALLI Correa ENTERED BY: [id number] RECV BY: [id number] ORDERED: PATHREVIEW ORDERED: PATHREVIEW Pathologist Review Abnormal [...] [id number] Received: 10/11/24 Status: QUOC Swain Num: [id number] Spec Type: Impression Subm Dr: Martita Hopper MD Tissues: PATHPER Procedures: PATHREVIEW Patient: Penny Ordaz [id number] (Continued) Specimen: [id number] Received: 10/11/24 (Continued) Pathologist Review (Continued) Signed (signature on file) Delfina Calderón MD 10/14/242029 Specimen: [id number] Received: 10/11/24 Status: QUOC Swani Num: [id number] Spec Type: Impression Subm Dr: Martita Hopper MD Tissues: PATHPER Procedures: PATHREVIEW Patient: Penny Ordaz [id number] (Continued) Specimen: [id number] Received: 10/11/24 (Continued) Pathologist Review (Continued) [id number] Specimen: [id number] Received: 10/11/24 Status: QUOC Swain Num: [id number] Spec Type: Impression Subm Dr: Martita Hopper MD Tissues: PATHPER Procedures: PATHREVIEW Patient: Penny Ordaz [id number] (Continued) Signed (signature on file) Chin-Michael Calderón MD 10/14/242029 Normal [facility] BASIC METABOLIC PANLon 09-21 Anion gap [Moles/Vol] 6 mmol/L Normal 5-15 [facility] Comment on above: Performed By: #### C BCA, PINR, BMP, 29455-1, 2284-8, 23832-4, LIVR #### [facility] ([id number]) [address], [address] [place] [address] Calcium [Mass/Vol] 9.0 mg/dL Normal 8.5-10.5 [facility] Comment on above: Performed By: #### C BCA, PINR, BMP, 35393-7, 2284-8, 82588-9, LIVR #### [facility] ([id number]) [address], [address] [place] [address] Chloride [Moles/Vol] 102 mmol/L Normal 98-109 [facility] Comment on above: Performed By: #### C BCA, PINR, BMP, 83986-4, 2284-8, 14042-2, LIVR #### [facility] LAB ([id number]) [address], [address] [place] [address] CO2 [Moles/Vol] 29 mmol/L Normal 22-32 [facility] Comment on above: Performed By: #### C BCA, PINR, BMP, 53519-8, 2284-8, 23424-4, LIVR #### [facility] ([id number]) [address], [address] [place] [address] Creatinine [Mass/Vol] 0.67 mg/dL Normal 0.60-1.30 [facility] Comment on above: Result Comment: METH OD TRACEABLE TO IDMS STANDARD Performed By: #### C BCA, PINR, BMP, 37447-7, 2284-8, 73699-1, LIVR #### [facility] ([id number]) [address], [address] [place] [address] eGFR (CKD-EPI) NON-RACE DEPENDENT >90 Normal >59 [facility] Comment on above: Result Comment: Reported eGFR is based on the CKD-EPI 2020 equation that does not use a race coefficient. Performed By: #### C BCA, PINR, BMP, 77737-5, 2283-8, 56495-6, LIVR #### [facility] ([id number]) [address] [address] [place] [address] Glucose [Mass/Vol] 103 mg/dL High 65-99 [facility] Comment on above: Performed By: #### C BCA, PINR, BMP, 82633-7, 2283-8, 79894-7, LIVR #### [facility] ([id number]) [address] [address] [place] [address] Potassium [Moles/Vol] 4.4 mmol/L Normal 3.5-5.0 [facility] Comment on above: Performed By: #### C BCA, PINR, BMP, 96766-6, 2284-8, 25351-1, LIVR #### [facility] ([id number]) [address], [address] [place] [address] Sodium [Moles/Vol] 137 mmol/L Normal 134-146 [facility] Comment on above: Performed By: #### C BCA, PINR, BMP, 55479-8, 2284-8, 72584-1, LIVR #### [facility] ([id number]) [address], [address] [place] [address] Urea nitrogen [Mass/Vol] 11 mg/dL Normal 5-27 [facility] Comment on above: Performed By: #### C BCA, PINR, BMP, 74394-3, 2284-8, 51140-5, LIVR #### [facility] ([id number]) [address], [address] [address] COMPLETE BLOOD COUNTon 09-21 Erythrocyte distribution width (RBC) [Ratio] 21.1 % High 11.5-15.0 [facility] Comment on above: Performed By: #### C BCA, PINR, BMP, 90035-8, 2284-8, 21820-3, LIVR #### [facility] ([id number]) [address], [address] [place] [address] Hematocrit (Bld) [Volume fraction] 23.4 % Low 39-49 [facility] Comment on above: Performed By: #### C BCA, PINR, BMP, 53156-7, 2284-8, 74386-3, LIVR #### [facility] ([id number]) [address], [address] [address] Hemoglobin (Bld) [Mass/Vol] 7.7 g/dL Low 13.0-17.0 [facility] Comment on above: Performed By: #### C BCA, PINR, BMP, 86916-2, 2284-8, 47247-3, LIVR #### [facility] ([id number]) [address], [address] [address] MCH (RBC) [Entitic mass] 30.3 pg Normal 27-34 [facility] Comment on above: Performed By: #### C BCA, PINR, BMP, 38405-9, 2284-8, 97067-5, LIVR #### [facility] ([id number]) [address], [address] [place] [address] MCHC (RBC) [Mass/Vol] 32.8 g/dL Normal 32-36 [facility] Comment on above: Performed By: #### C BCA, PINR, BMP, 91231-8, 2284-8, 01840-4, LIVR #### [facility] ([id number]) [address], [address] [place] [address] MCV (RBC) [Entitic vol] 93 fL Normal 80-100 [facility] Comment on above: Performed By: #### C BCA, PINR, BMP, 14253-3, 2284-8, 28933-1, LIVR #### [facility] ([id number]) [address], [address] [place] [address] Platelet mean volume (Bld) [Entitic vol] 8.3 fL Normal 7-12 [facility] Comment on above: Performed By: #### C BCA, PINR, BMP, 55664-1, 2284-8, 34123-0, LIVR #### [facility] ([id number]) [address], [facility] [address] [place] [address] Platelets (Bld) [#/Vol] 423 10*3/uL Normal 150-450 [facility] Comment on above: Performed By: #### C BCA, PINR, BMP, 06293-1, 2284-8, 50316-2, LIVR #### [facility] ([id number]) [address], [address] [place] [address] RBC COUNT 2.53 X10E12/L Low 4.10-5.70 [facility] Comment on above: Performed By: #### C BCA, PINR, BMP, 87761-1, 2284-8, 08816-3, LIVR #### [facility] ([id number]) [address], [facility] [address] [place] [address] WBC (Bld) [#/Vol] 5.3 10*3/uL Normal 4.0-11.0 [facility] Comment on above: Performed By: #### C BCA, PINR, BMP, 96198-4, 2284-8, 82086-9, LIVR #### [facility] ([id number]) [address], [facility] [address] [place] [address] HGB A1C (GLYCO-HGB)on 2024 Glucose [Mass/Vol] 105 mg/dL Normal [facility] Comment on above: Performed By: #### C BCA, PINR, BMP, 97552-9, 4-8, 72508-9, LIVR #### [facility] ([id number]) [address] [address] [place] [address] HbA1c (Bld) [Mass fraction] 5.3 % Normal 4.4-5.6 [facility] Comment on above: Result Comment: NOTE ADA Guidelines Result HgbA1c Normal : less than 5.7 % Prediabetes : 5.7 % to 6.4 % Diabetes : > 6.4 % Use with caution in patients with abnormal hemoglobin variants as the half-life of red blood cells and in vivo glycation rates are affected. Performed By: #### C BCA, PINR, BMP, 25703-2, 2284-8, 90221-7, LIVR #### [facility] ([id number]) [address] [address] [place] [address] BASIC METABOLIC PANLon 09-12 Anion gap [Moles/Vol] 5 mmol/L Normal 5-15 [facility] Comment on above: Performed By: #### C BCA, PINR, BMP, 02482-1, 2284-8, 39824-9, LIVR #### [facility] ([id number]) [address], [address] [place] [address] Calcium [Mass/Vol] 8.7 mg/dL Normal 8.5-10.5 [facility] Comment on above: Performed By: #### C BCA, PINR, BMP, 01227-5, 2284-8, 50476-0, LIVR #### [facility] ([id number]) [address], [address] [place] [address] Chloride [Moles/Vol] 101 mmol/L Normal 98-109 [facility] Comment on above: Performed By: #### C BCA, PINR, BMP, 87374-7, 2284-8, 07640-7, LIVR #### [facility] ([id number]) [address], [address] [place] [address] CO2 [Moles/Vol] 28 mmol/L Normal 22-32 [facility] Comment on above: Performed By: #### C BCA, PINR, BMP, 05377-4, 2284-8, 41601-5, LIVR #### [facility] ([id number]) [address], [address] [place] [address] Creatinine [Mass/Vol] 0.54 mg/dL Low 0.60-1.30 [facility] Comment on above: Result Comment: METH OD TRACEABLE TO IDMS STANDARD Performed By: #### C BCA, PINR, BMP, 44855-2, 2284-8, 76801-2, LIVR #### [facility] ([id number]) [address], [address] [place] [address] eGFR (CKD-EPI) NON-RACE DEPENDENT >90 Normal >59 [facility] Comment on above: Result Comment: Reported eGFR is based on the CKD-EPI 2020 equation that does not use a race coefficient. Performed By: #### C BCA, PINR, BMP, 44619-6, 2284-8, 96025-1, LIVR #### [facility] ([id number]) [address], [address] [place] [address] Glucose [Mass/Vol] 90 mg/dL Normal 65-99 [facility] Comment on above: Performed By: #### C BCA, PINR, BMP, 24959-1, 2284-8, 42963-3, LIVR #### [facility] ([id number]) [address], [address] [place] [address] Potassium [Moles/Vol] 4.5 mmol/L Normal 3.5-5.0 [facility] Comment on above: Performed By: #### C BCA, PINR, BMP, 39665-9, 2284-8, 87187-4, LIVR #### [facility] ([id number]) [address], [address] [place] [address] Sodium [Moles/Vol] 134 mmol/L Normal 134-146 [facility] Comment on above: Performed By: #### C BCA, PINR, BMP, 02371-4, 2284-8, 90824-8, LIVR #### [facility] ([id number]) [address] [address] Urea nitrogen [Mass/Vol] 10 mg/dL Normal 5-27 [facility] Comment on above: Performed By: #### C BCA, PINR, BMP, 29569-9, 2284-8, 56746-1, LIVR #### [facility] ([id number]) [address] [address] [place] [address] CBC AND AUTO DIFFon 09-12-19 25 Band form neutrophils/100 WBC (Bld) 26.0 % Normal [facility] Comment on above: Performed By: #### C BCA, PINR, BMP, 08594-1, 2284-8, 27497-5, LIVR #### [facility] ([id number]) [address], [facility] [address] [place] [address] Erythrocyte distribution width (RBC) [Ratio] 21.4 % High 11.5-15.0 [facility] Comment on above: Performed By: #### C BCA, PINR, BMP, 58382-1, 2284-8, 60899-5, LIVR #### [facility] ([id number]) [address], [address] [place] [address] FRAGMENT 1+ Abnormal NONE [facility] Comment on above: Performed By: #### C BCA, PINR, BMP, 41382-2, 2284-8, 52576-7, LIVR #### [facility] ([id number]) [address], [address] [place] [address] Hematocrit (Bld) [Volume fraction] 24.1 % Low 39-49 [facility] Comment on above: Performed By: #### C BCA, PINR, BMP, 37703-4, 4-8, 16680-1, LIVR #### [facility] ([id number]) [address], [address] [place] [address] Hemoglobin (Bld) [Mass/Vol] 7.9 g/dL Low 13.0-17.0 [facility] Comment on above: Performed By: #### C BCA, PINR, BMP, 52253-5, 2284-8, 13481-8, LIVR #### [facility] ([id number]) [address], [address] [place] [address] Lymphocytes (Bld) [#/Vol] 0.3 10*3/uL Low 1.0-3.5 [facility] Comment on above: Performed By: #### C BCA, PINR, BMP, 32584-4, 2284-8, 93981-6, LIVR #### [facility] ([id number]) [address], [address] [place] [address] Lymphocytes/100 WBC (Bld) 5.0 % Normal [facility] Comment on above: Performed By: #### C BCA, PINR, BMP, 23223-9, 2284-8, 87276-1, LIVR #### [facility] ([id number]) [address], [address] [place] [address] MCH (RBC) [Entitic mass] 30.4 pg Normal 27-34 [facility] Comment on above: Performed By: #### C BCA, PINR, BMP, 91709-9, 2284-8, 52342-4, LIVR #### [facility] ([id number]) [address], [facility] [address] [place] [address] MCHC (RBC) [Mass/Vol] 32.7 g/dL Normal 32-36 [facility] Comment on above: Performed By: #### C BCA, PINR, BMP, 82194-0, 2284-8, 79115-2, LIVR #### [facility] ([id number]) [address], [address] [place] [address] MCV (RBC) [Entitic vol] 93 fL Normal 80-100 [facility] Comment on above: Performed By: #### C BCA, PINR, BMP, 21363-5, 2284-8, 16285-4, LIVR #### [facility] ([id number]) [address], [facility] [address] [place] [address] Monocytes (Bld) [#/Vol] 0.2 10*3/uL Normal 0-0.9 [facility] Comment on above: Performed By: #### C BCA, PINR, BMP, 45982-6, 2284-8, 59045-6, LIVR #### [facility] ([id number]) [address] [address] [place] [address] Monocytes/100 WBC (Bld) 3.0 % Normal [facility] Comment on above: Performed By: #### C BCA, PINR, BMP, 25363-1, 2284-8, 18993-1, LIVR #### [facility] ([id number]) [address] [place] [address] Neutrophils (Bld) [#/Vol] 6.3 10*3/uL Normal 1.5-6.6 [facility] Comment on above: Performed By: #### C BCA, PINR, BMP, 71040-1, 2284-8, 90942-2, LIVR #### [facility] ([id number]) [address], [address] [place] [address] OVALOCYTE 1+ Abnormal NONE [facility] Comment on above: Performed By: #### C BCA, PINR, BMP, 37434-5, 2284-8, 95957-6, LIVR #### [facility] ([id number]) [address], [address] [place] [address] Platelet mean volume (Bld) [Entitic vol] 8.3 fL Normal 7-12 [facility] Comment on above: Performed By: #### C BCA, PINR, BMP, 75306-7, 2284-8, 43246-2, LIVR #### [facility] ([id number]) [address], [address] [place] [address] Platelets (Bld) [#/Vol] 235 10*3/uL Normal 150-450 [facility] Comment on above: Performed By: #### C BCA, PINR, BMP, 60208-6, 2284-8, 31351-4, LIVR #### [facility] ([id number]) [address], [address] [place] [address] POLYCHROMASIA 1+ Abnormal NONE [facility] Comment on above: Performed By: #### C BCA, PINR, BMP, 51946-8, 2284-8, 35252-1, LIVR #### [facility] ([id number]) [address], [address] [place] [address] RBC COUNT 2.59 X10E12/L Low 4.10-5.70 [facility] Comment on above: Performed By: #### C BCA, PINR, BMP, 95879-0, 2284-8, 90785-0, LIVR #### [facility] ([id number]) [address], [address] [place] [address] SEG NEUTROPHIL 66.0 % Normal [facility] Comment on above: Performed By: #### C BCA, PINR, BMP, 05943-1, 4-8, 78119-8, LIVR #### [facility] ([id number]) [address], [address] [place] [address] WBC (Bld) [#/Vol] 6.8 10*3/uL Normal 4.0-11.0 [facility] Comment on above: Performed By: #### C BCA, PINR, BMP, 36343-3, 2283-8, 26222-7, LIVR #### [facility] ([id number]) [address], [address] [place] [address] Glucose Glucometer (BldC) [M ass/Vol]on 09-12-2024 Glucose [Mass/Vol] 126 mg/dL High 65-99 [facility] Glucose [Mass/Vol] 100 mg/dL High 65-99 [facility] BASIC METABOLIC PANLon 09-11 Anion gap [Moles/Vol] 5 mmol/L Normal 5-15 [facility] Comment on above: Performed By: #### C BCA, PINR, BMP, 14142-2, 4-8, 77397-7, LIVR #### [facility] ([id number]) [address], [address] [place] [address] Calcium [Mass/Vol] 8.2 mg/dL Low 8.5-10.5 [facility] Comment on above: Performed By: #### C BCA, PINR, BMP, 71658-0, 2284-8, 89091-0, LIVR #### [facility] ([id number]) [address], [address] [place] [address] Chloride [Moles/Vol] 102 mmol/L Normal 98-109 [facility] Comment on above: Performed By: #### C BCA, PINR, BMP, 17636-8, 2284-8, 26405-8, LIVR #### [facility] ([id number]) [address], [address] [place] [address] CO2 [Moles/Vol] 28 mmol/L Normal 22-32 [facility] Comment on above: Performed By: #### C BCA, PINR, BMP, 61423-9, 2284-8, 01475-8, LIVR #### [facility] ([id number]) [address] [place] [address] Creatinine [Mass/Vol] 0.57 mg/dL Low 0.60-1.30 [facility] Comment on above: Result Comment: METH OD TRACEABLE TO IDMS STANDARD Performed By: #### C BCA, PINR, BMP, 22889-6, 2284-8, 62496-0, LIVR #### [facility] ([id number]) [address] [place] [address] eGFR (CKD-EPI) NON-RACE DEPENDENT >90 Normal >59 [facility] Comment on above: Result Comment: Reported eGFR is based on the CKD-EPI 2020 equation that does not use a race coefficient. Performed By: #### C BCA, PINR, BMP, 19889-9, 2284-8, 99005-3, LIVR #### [facility] ([id number]) [address], [address] [place] [address] Glucose [Mass/Vol] 99 mg/dL Normal 65-99 [facility] Comment on above: Performed By: #### C BCA, PINR, BMP, 36745-5, 2284-8, 19147-9, LIVR #### [facility] ([id number]) [address] [place] [address] Potassium [Moles/Vol] 4.4 mmol/L Normal 3.5-5.0 [facility] Comment on above: Performed By: #### C BCA, PINR, BMP, 24368-4, 2284-8, 81296-0, LIVR #### [facility] ([id number]) [address] [place] [address] Sodium [Moles/Vol] 135 mmol/L Normal 134-146 [facility] Comment on above: Performed By: #### C BCA, PINR, BMP, 89989-1, 2284-8, 67707-3, LIVR #### [facility] ([id number]) [address] [place] [address] Urea nitrogen [Mass/Vol] 11 mg/dL Normal 5-27 [facility] Comment on above: Performed By: #### C BCA, PINR, BMP, 03569-9, 2284-8, 29222-6, LIVR #### [facility] ([id number]) [address] [place] [address] CBC AND AUTO DIFFon 02-25-20 25 Band form neutrophils/100 WBC (Bld) 21.0 % Normal [facility] Comment on above: Performed By: #### C BCA, PINR, BMP, 01798-2, 2284-8, 27917-8, LIVR #### [facility] ([id number]) [address] [place] [address] Erythrocyte distribution width (RBC) [Ratio] 19.8 % High 11.5-15.0 [facility] Comment on above: Performed By: #### C BCA, PINR, BMP, 11442-1, 2284-8, 36208-8, LIVR #### [facility] ([id number]) [address] [place] [address] FRAGMENT 1+ Abnormal NONE [facility] Comment on above: Performed By: #### C BCA, PINR, BMP, 18541-9, 2284-8, 94551-7, LIVR #### [facility] ([id number]) [address] [place] [address] Hematocrit (Bld) [Volume fraction] 21.3 % Low 39-49 [facility] Comment on above: Performed By: #### C BCA, PINR, BMP, 55148-4, 2284-8, 89819-0, LIVR #### [facility] ([id number]) [address], [address] [place] [address] Hemoglobin (Bld) [Mass/Vol] 6.9 g/dL Critically low 13.0-17.0 [facility] Comment on above: Performed By: #### C BCA, PINR, BMP, 81689-2, 2284-8, 54290-7, LIVR #### [facility] ([id number]) [address], [address] [place] [address] IMMATURE MONONUCLEAR 1.0 % Normal [facility] Comment on above: Performed By: #### C BCA, PINR, BMP, 66037-4, 4-8, 29147-1, LIVR #### [facility] ([id number]) [address] [place] [address] Lymphocytes (Bld) [#/Vol] 0.6 10*3/uL Low 1.0-3.5 [facility] Comment on above: Performed By: #### C BCA, PINR, BMP, 27216-9, 2284-8, 66286-0, LIVR #### [facility] ([id number]) [address] [place] [address] Lymphocytes/100 WBC (Bld) 9.0 % Normal [facility] Comment on above: Performed By: #### C BCA, PINR, BMP, 71098-3, 2284-8, 79378-6, LIVR #### [facility] ([id number]) [address] [place] [address] MCH (RBC) [Entitic mass] 30.5 pg Normal 27-34 [facility] Comment on above: Performed By: #### C BCA, PINR, BMP, 12172-6, 2283-8, 42322-1, LIVR #### [facility] ([id number]) [address] [place] [address] MCHC (RBC) [Mass/Vol] 32.5 g/dL Normal 32-36 [facility] Comment on above: Performed By: #### C BCA, PINR, BMP, 96507-9, 2283-, 47039-1, LIVR #### [facility] ([id number]) [address] [place] [address] MCV (RBC) [Entitic vol] 94 fL Normal 80-100 [facility] Comment on above: Performed By: #### C BCA, PINR, BMP, 87368-6, 2283-, 07178-0, LIVR #### [facility] ([id number]) [address] [place] [address] Monocytes (Bld) [#/Vol] 0.2 10*3/uL Normal 0-0.9 [facility] Comment on above: Performed By: #### C BCA, PINR, BMP, 49994-8, 2283-, 07789-3, LIVR #### [facility] ([id number]) [address] [place] [address] Monocytes/100 WBC (Bld) 3.0 % Normal [facility] Comment on above: Performed By: #### C BCA, PINR, BMP, 58224-2, 2284-8, 45260-0, LIVR #### [facility] ([id number]) [address] [place] [address] Neutrophils (Bld) [#/Vol] 5.3 10*3/uL Normal 1.5-6.6 [facility] Comment on above: Performed By: #### C BCA, PINR, BMP, 86541-8, 2284-8, 13508-6, LIVR #### [facility] ([id number]) [address] [place] [address] OVALOCYTE 2+ Abnormal NONE [facility] Comment on above: Performed By: #### C BCA, PINR, BMP, 09143-0, 2284-8, 19815-1, LIVR #### [facility] ([id number]) [address] [place] [address] Platelet mean volume (Bld) [Entitic vol] 8.0 fL Normal 7-12 [facility] Comment on above: Performed By: #### C BCA, PINR, BMP, 24031-8, 2284-8, 10359-9, LIVR #### [facility] ([id number]) [address] [place] [address] Platelets (Bld) [#/Vol] 226 10*3/uL Normal 150-450 [facility] Comment on above: Performed By: #### C BCA, PINR, BMP, 31810-7, 2284-8, 88182-4, LIVR #### [facility] ([id number]) [address] [place] [address] POLYCHROMASIA 1+ Abnormal NONE [facility] Comment on above: Performed By: #### C BCA, PINR, BMP, 21675-8, 2284-8, 78603-0, LIVR #### [facility] ([id number]) [address] [place] [address] RBC COUNT 2.27 X10E12/L Low 4.10-5.70 [facility] Comment on above: Performed By: #### C BCA, PINR, BMP, 74517-7, 2284-8, 55683-5, LIVR #### [facility] ([id number]) [address], [address] [place] [address] SEG NEUTROPHIL 66.0 % Normal [facility] Comment on above: Performed By: #### C BCA, PINR, BMP, 32651-8, 2284-8, 84359-8, LIVR #### [facility] ([id number]) [address], [address] [place] [address] TEARDROP 1+ Abnormal NONE [facility] Comment on above: Performed By: #### C BCA, PINR, BMP, 18734-8, 2284-8, 23093-0, LIVR #### [facility] ([id number]) [address], [address] [place] [address] WBC (Bld) [#/Vol] 6.2 10*3/uL Normal 4.0-11.0 [facility] Comment on above: Performed By: #### C BCA, PINR, BMP, 12561-3, 2284-8, 00854-9, LIVR #### [facility] ([id number]) [address], [address] [place] [address] Glucose Glucometer (BldC) [M ass/Vol]on 09-11-2024 Glucose [Mass/Vol] 116 mg/dL High 65-99 [facility] Glucose [Mass/Vol] 106 mg/dL High 65-99 [facility] Glucose [Mass/Vol] 112 mg/dL High 65-99 [facility] Glucose [Mass/Vol] 153 mg/dL High 65-99 [facility] HGBon 09-11-2024 Hematocrit (Bld) [Volume fraction] 24.1 % Low 39-49 [facility] Comment on above: Performed By: #### C BCA, PINR, BMP, 57160-8, 2284-8, 38513-2, LIVR #### [facility] ([id number]) [address], [address] [place] [address] Hemoglobin (Bld) [Mass/Vol] 7.9 g/dL Low 13.0-17.0 [facility] Comment on above: Performed By: #### C BCA, PINR, BMP, 37860-1, 2284-8, 47414-3, LIVR #### [facility] ([id number]) [address], [address] [place] [address] PROTIME AND INRon 09-11-2024 INR Coag (PPP) [Relative time] 1.4 {INR} High 0.9-1.2 [facility] Comment on above: Performed By: #### C BCA, PINR, BMP, 66398-6, 2284-8, 27929-4, LIVR #### [facility] ([id number]) [address], [address] [place] [address] PT Coag (PPP) [Time] 16.0 s High 9.8-13.2 [facility] Comment on above: Performed By: #### C BCA, PINR, BMP, 42983-6, 2284-8, 05917-6, LIVR #### [facility] ([id number]) [address], [address] [place] [address] RESP PATHOGENS/KUIH-JhO-[id number] 09-11-2024 Respiratory pathogens DNA and RNA panel [...] 2 Not detected (qualifier value) NOTE The [employer] Respiratory Panel 2.1 (RP2.1) is a multiplexed [...] patient with possible respiratory tract infection. Normal [facility] Comment on above: Performed By: #### C BCA, PINR, BMP, 88708-8, 2284-8, 21126-0, LIVR #### [facility] ([id number]) [address], [address] [place] [address] XR CHEST 1 VWon 09-11-2024 XR CHEST 1 VW XR CHEST 1 VW CHEST 1 VIEW HISTORY: Pneumothorax follow-up COMPARISON: 09/11/2024, 1:48 PM IMPRESSION: * Previously seen right apical pneumothorax not well visible. Small right pleural effusion. * Left lung is clear. * Unchanged cardiomediastinal silhouette. Finalized by Kristofer Lee MD on 09/11/2024 10:30 PM Normal [facility] XR CHEST 1 VW XR CHEST [...] Escalante MD on 09/11/2024 2:02 PM Normal [facility] BF CELL CT AND DIFFon 2024 BODY FLUID COMMENT Interpreta tion- ------- Normal [facility] Comment on above: Result Comment: Refe rence values for this fluid type are undefined, as fluid accumulation is considered abnormal. SEE CYTOLOGY REPORT Corrected on 09/11 AT 1341: Previously reported as Interpretation Reference values for this fluid type are undefined, as fluid accumulation is considered abnormal. Performed By: #### C BCA, PINR, BMP, 31103-1, 2284-8, 98305-1, LIVR #### [facility] ([id number]) [address] [place] [address] FLUID CLARITY CLEAR Normal [facility] Comment on above: Performed By: #### C BCA, PINR, BMP, 17386-4, 2284-8, 37470-4, LIVR #### [facility] ([id number]) [address], [address] [place] [address] FLUID COLOR STRAW Normal [facility] Comment on above: Performed By: #### C BCA, PINR, BMP, 98825-0, 2284-8, 82727-0, LIVR #### [facility] ([id number]) [address], [address] [place] [address] FLUID LYMPHOCYTE 12 % Normal [facility] Comment on above: Performed By: #### C BCA, PINR, BMP, 75089-1, 2284-8, 85383-0, LIVR #### [facility] ([id number]) [address], [address] [place] [address] FLUID NEUTROPHILS 11 % [facility] Comment on above: Performed By: #### C BCA, PINR, BMP, 24070-6, 2284-8, 50887-7, LIVR #### [facility] ([id number]) [address], [address] [place] [address] 83 /uL Normal [facility] Comment on above: Performed By: #### C BCA, PINR, BMP, 10069-2, 2284-8, 24949-9, LIVR #### [facility] ([id number]) [address], [address] [place] [address] FLUID SPECIMEN TYPE PLEURAL FLUID Normal [facility] Comment on above: Result Comment: CHERYL T Performed By: #### C BCA, PINR, BMP, 41869-3, 2284-8, 12813-3, LIVR #### [facility] ([id number]) [address], [address] [place] [address] MACROPHAGES 77 % Normal [facility] Comment on above: Performed By: #### C BCA, PINR, BMP, 96752-5, 2284-8, 73138-5, LIVR #### [facility] ([id number]) [address] [place] [address] 182 /uL Normal [facility] Comment on above: Performed By: #### C BCA, PINR, BMP, , 2283-8, 33480-8, LIVR #### [facility] ([id number]) [address] [place] [address] BONE MARROWon 09-10-2024 BONE MARROW SEE SEPARATE REPORT Normal [facility] Comment on above: Result Comment: REVI EWED BY Tito ALONZO M.D. Performed By: #### C BCA, PINR, BMP, , 2284-02, 63517-4, LIVR #### [facility] ([id number]) [address] [place] [address] CBC AND AUTO DIFFon 09-10-19 25 Band form neutrophils/100 WBC (Bld) 33.0 % Normal [facility] Comment on above: Performed By: #### Susie BC, TSHR, 2132-03 #### [facility] ([id number]) [address] [place] [address] Erythrocyte distribution width (RBC) [Ratio] 20.7 % High 11.5-15.0 [facility] Comment on above: Performed By: #### Susie WAKEFIELD, TSHR, 2132-03 #### [facility] ([id number]) [address], [address] [place] [address] FRAGMENT 1+ Abnormal NONE [facility] Comment on above: Performed By: #### Susie BC, TSHR, 2132-03 #### [facility] ([id number]) [address], [address] [place] [address] Hematocrit (Bld) [Volume fraction] 21.8 % Low 39-49 [facility] Comment on above: Performed By: #### Susie WAKEFIELD TSHR, 2132-03 #### [facility] ([id number]) [address] [place] [address] Hemoglobin (Bld) [Mass/Vol] 7.2 g/dL Low 13.0-17.0 [facility] Comment on above: Performed By: #### Susie WAKEFIELD TSHR, 2132-03 #### [facility] ([id number]) [address] [place] [address] Lymphocytes (Bld) [#/Vol] 0.8 10*3/uL Low 1.0-3.5 [facility] Comment on above: Performed By: #### JAIME SUTHERLAND, 2132-03 #### [facility] ([id number]) [address] [place] [address] Lymphocytes/100 WBC (Bld) 12.0 % Normal [facility] Comment on above: Performed By: #### Susie WAKEFIELD TSHR, 2132-03 #### [facility] ([id number]) [address] [place] [address] MCH (RBC) [Entitic mass] 30.8 pg Normal 27-34 [facility] Comment on above: Performed By: #### Susie WAKEFIELD TSHR, 2132-03 #### [facility] ([id number]) [address], [facility] [address] [place] [address] MCHC (RBC) [Mass/Vol] 32.9 g/dL Normal 32-36 [facility] Comment on above: Performed By: #### Susie WAKEFIELD TSHR, 2132-03 #### [facility] ([id number]) [address], [address] [place] [address] MCV (RBC) [Entitic vol] 94 fL Normal 80-100 [facility] Comment on above: Performed By: #### JAIME SUTHERLAND, 2132-03 #### [facility] ([id number]) [address], [address] [place] [address] Metamyelocytes/100 WBC (Bld) 3.0 % Normal [facility] Comment on above: Performed By: #### JAIME SUTHERLAND, 2132-03 #### [facility] ([id number]) [address] [place] [address] Monocytes (Bld) [#/Vol] 0.1 10*3/uL Normal 0-0.9 [facility] Comment on above: Performed By: #### JAIME SUTHERLAND, 2132-03 #### [facility] ([id number]) [address], [address] [place] [address] Monocytes/100 WBC (Bld) 1.0 % Normal P [facility] Comment on above: Performed By: #### JAIME SUTHERLAND, 2132-03 #### [facility] ([id number]) [address], [address] [place] [address] MYELOCYTE 1.0 % Normal [facility] Comment on above: Performed By: #### JAIME SUTHERLAND, 2132-03 #### [facility] ([id number]) [address], [address] [place] [address] Neutrophils (Bld) [#/Vol] 5.2 10*3/uL Normal 1.5-6.6 [facility] Comment on above: Performed By: #### JAIME SUTHERLAND, 2132-03 #### [facility] ([id number]) [address], [address] [place] [address] OVALOCYTE 1+ Abnormal NONE [facility] Comment on above: Performed By: #### Susie WAKEFIELD TSHR, 2132-03 #### [facility] ([id number]) [address], [address] [place] [address] Platelet mean volume (Bld) [Entitic vol] 8.1 fL Normal 7-12 [facility] Comment on above: Performed By: #### Susie WAKEFIELD TSHR, 2132-03 #### [facility] ([id number]) [address], [address] [place] [address] Platelets (Bld) [#/Vol] 231 10*3/uL Normal 150-450 [facility] Comment on above: Performed By: #### Susie WAKEFIELD TSHR, 2132-03 #### [facility] ([id number]) [address], [address] [place] [address] POLYCHROMASIA 1+ Abnormal NONE [facility] Comment on above: Performed By: #### Susie WAKEFIELD TSHR, 2132-03 #### [facility] ([id number]) [address], [address] [place] [address] RBC COUNT 2.33 X10E12/L Low 4.10-5.70 [facility] Comment on above: Performed By: #### Susie WAKEFIELD TSHR, 2132-03 #### [facility] ([id number]) [address] [place] [address] SEG NEUTROPHIL 50.0 % Normal [facility] Comment on above: Performed By: #### Susie WAKEFIELD TSHR, 2132-03 #### [facility] ([id number]) [address], [address] [place] [address] WBC (Bld) [#/Vol] 6.4 10*3/uL Normal 4.0-11.0 [facility] Comment on above: Performed By: #### Susie WAKEFIELD, TSHR, 2132-03 #### [facility] ([id number]) [address], [address] [place] [address] COMPREHENSIVE METABOLIC PANE John Paul 09-10-2024 Albumin [Mass/Vol] 3.6 g/dL Normal 3.2-5.3 [facility] Comment on above: Performed By: #### Susie WAKEFIELD, TSHR, 2132-03 #### [facility] ([id number]) [address], [address] [place] [address] ALP [Catalytic activity/Vol] 75 U/L Normal 39-130 [facility] Comment on above: Performed By: #### Susie WAKEFIELD TSHR, 2132-03 #### [facility] ([id number]) [address], [address] [place] [address] ALT [Catalytic activity/Vol] 7 U/L Normal 0-40 [facility] Comment on above: Performed By: #### Susie WAKEFIELD TSHR, 2132-03 #### [facility] ([id number]) [address], [address] [place] [address] Anion gap [Moles/Vol] 5 mmol/L Normal 5-15 [facility] Comment on above: Performed By: #### Susie WAKEFIELD, TSHR, 2132-03 #### [facility] ([id number]) [address], [address] [place] [address] AST [Catalytic activity/Vol] 17 U/L Normal 0-41 [facility] Comment on above: Performed By: #### Susie WAKEFIELD TSHR, 2132-03 #### [facility] ([id number]) [address], [address] [place] [address] Bilirubin [Mass/Vol] 0.8 mg/dL Normal 0.3-1.2 [facility] Comment on above: Performed By: #### Susie WAKEFIELD, TSHR, 2132-03 #### [facility] ([id number]) [address], [address] [place] [address] Calcium [Mass/Vol] 8.1 mg/dL Low 8.5-10.5 [facility] Comment on above: Performed By: #### Susie WAKEFIELD TSHR, 2132-03 #### [facility] ([id number]) [address], [facility] [address] [place] [address] Chloride [Moles/Vol] 102 mmol/L Normal 98-109 [facility] Comment on above: Performed By: #### Susie WAKEFIELD TSHR, 2132-03 #### [facility] ([id number]) [address], [facility] [address] [place] [address] CO2 [Moles/Vol] 28 mmol/L Normal 22-32 [facility] Comment on above: Performed By: #### Susie WAKEFIELD TSHR, 2132-03 #### [facility] ([id number]) [address], [facility] [address] [place] [address] Creatinine [Mass/Vol] 0.65 mg/dL Normal 0.60-1.30 [facility] Comment on above: Result Comment: METH OD TRACEABLE TO IDMS STANDARD Performed By: #### Susie WAKEFIELD TSHR, 2132-03 #### [facility] ([id number]) [address] [place] [address] eGFR (CKD-EPI) NON-RACE DEPENDENT >90 Normal >59 [facility] Comment on above: Result Comment: Reported eGFR is based on the CKD-EPI 2020 equation that does not use a race coefficient. Performed By: #### Susie WAKEFIELD TSHR, 2132-03 #### [facility] ([id number]) [address] [place] [address] Glucose [Mass/Vol] 113 mg/dL High 65-99 [facility] Comment on above: Performed By: #### Susie WAKEFIELD TSHR, 2132-03 #### [facility] ([id number]) [address] [place] [address] Potassium [Moles/Vol] 4.1 mmol/L Normal 3.5-5.0 [facility] Comment on above: Performed By: #### C BC, TSHR, 2132-03 #### [facility] ([id number]) [address], [address] [place] [address] Protein [Mass/Vol] 6.7 g/dL Normal 6.0-8.0 [facility] Comment on above: Performed By: #### Susie BC, TSHR, 2132-03 #### [facility] ([id number]) [address], [address] [place] [address] Sodium [Moles/Vol] 135 mmol/L Normal 134-146 [facility] Comment on above: Performed By: #### Susie BC, TSHR, 2132-03 #### [facility] ([id number]) [address] [place] [address] Urea nitrogen [Mass/Vol] 11 mg/dL Normal 5-27 [facility] Comment on above: Performed By: #### Susie BC, TSHR, 2132-03 #### [facility] ([id number]) [address], [address] [place] [address] Cytologyon 09-10-2024 Cytology Normal [facility] Comment on above: Result Comment: [facility] [address] [place] [address] Cytology Consultation Patient Name:PENNY ORDAZ:1960 (Age: 63)Gender:MTaken:09/10/2024Reported:09/13/2024 14:09Physician(s):Wendi Lai M.D. ([phone])Copy To:Gianluca Mahan [facility] #:[id number]. Rec. 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 Comparison of this result to serum or plasma is recommended. Performed By: #### Susie WAKEFIELD TSHR, 2132-03 #### [facility] ([id number]) [address], [address] [place] [address] FLUID CULTUREon 09-10-2024 Bacteria identified Aer cx Nom (Body fld) GRAM STAIN WHITE BLOOD CELLS PRESENT NO ORGANISMS SEEN ON CONCENTRATED SMEAR CULTURE RESULTS NO GROWTH 5 DAYS Normal [facility] Comment on above: Performed By: #### C ASHU, TSHR, 2132-03 #### [facility] ([id number]) [address] [place] [address] FLUID LDHon 09-10-2024 FLUID LDH 185 U/L Normal [facility] Comment on above: Result Comment: The reference interval and other method performance specifications are unavailable for this body fluid. Comparison of this result to serum or plasma is recommended. Performed By: #### C BC, TSHR, 2132-03 #### [facility] ([id number]) [address] [place] [address] LD SPECIMEN TYPE FLUID Normal [facility] Comment on above: Result Comment: PLEU RAL FLUID RIGHT Performed By: #### C BC, TSHR, 2132-03 #### [facility] ([id number]) [address] [place] [address] FLUID T. PROTEINon 5 FLUID TOT. PROTEIN 2.1 g/dL Normal [facility] Comment on above: Result Comment: The reference interval and other method performance specifications are unavailable for this body fluid. Comparison of this result to serum or plasma is recommended. Performed By: #### C BC, TSHR, 2132-03 #### [facility] ([id number]) [address] [place] [address] TP SPECIMEN TYPE FLUID Normal [facility] Comment on above: Result Comment: PLEU RAL FLUID RIGHT Performed By: #### C BC, TSHR, 2132-03 #### [facility] ([id number]) [address] [place] [address] FLUID TRIGLYCERIDEon 025 FLUID TRIGLYCERIDE 11 mg/dL Normal [facility] Comment on above: Result Comment: The reference interval and other method performance specifications are unavailable for this body fluid. Comparison of this result to serum or plasma is recommended. Performed By: #### C BCA, PINR, BMP, 19259-9, 2284-8, 26451-1, LIVR #### [facility] ([id number]) [address] [place] [address] TRIG SPECIMEN TYPE FLUID Normal [facility] Comment on above: Result Comment: PLEU RAL FLUID RIGHT Performed By: #### C BCA, PINR, BMP, 79549-6, 2284-8, 69714-3, LIVR #### [facility] ([id number]) [address] [place] [address] Flow cytometry specialist re view Jian (Unsp spec) [Interp]on 09-10-2024 FLOW CYTOMETRY BM SEE SEPARATE REPORT Normal [facility] Comment on above: Result Comment: REVI EWED BY Tito ALONZO M.D. Performed By: #### C BCA, PINR, BMP, 77082-6, 2284-8, 02859-9, LIVR #### [facility] ([id number]) [address] [place] [address] Glucose Glucometer (BldC) [M ass/Vol]on 09-10-2024 Glucose [Mass/Vol] 97 mg/dL Normal 65-99 [facility] Glucose [Mass/Vol] 99 mg/dL Normal 65-99 [facility] Glucose [Mass/Vol] 155 mg/dL High 65-99 [facility] Karyotype Nom (BM)on 025 CHROMOSOME BONE MARROW SEE COMMENTS 12/2024 10:41 AM Normal [facility] Comment on above: Result Comment: NOTE Test Result Flag Unit RefValue ---- Chromosomes, Hematologic, BM Result Summary See Interpretation Interpretation See Note Of 20 metaphases, four 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 As the sole cytogenetic abnormality in the absence of morphological criteria, trisomy 8 is not considered definitive evidence of MDS (Lilliamrdlow et al., WHO Classification of Tumours of [...] 20 0 3 Total 20 0 3 Schwartz to Stain Name: GTL=G-banding; QFQ=Q-banding; DAPI=DAPI-staining; CBL=C-banding; AGNOR=Silver-staining; NON=Non-banded The sum of Cells Analyzed and Cells Counted equals the total cells examined. Additional Information See Note A portion of the testing process was performed at [facility] site 970444, 165354, 478953. Released By Angie Vuong D.O. Test Performed by: [place] [address] Unemployment Benefits Claims Taker: Alexandre Crain Ph.D.; CLIA# [id number] Performed By: #### C BCA, PINR, BMP, 73777-8, 2284-8, 80997-0, LIVR #### [facility] ([id number]) [address] [facility] [address] [place] [address] LDH [Catalytic activity/Vol] on 09-10-2024 LDH 610 U/L High 100-235 [facility] Comment on above: Performed By: #### C BC, TSHR, 2132-03 #### [facility] ([id number]) [address] [facility] [facility] [address] [place] [address] Laboratory comment Jian (Repo rt)on 09-10-2024 UNLISTED LAB TEST Sent to reference lab Normal [facility] Comment on above: Performed By: #### C BCA, PINR, BMP, 95825-4, 2284-8, 94982-2, LIVR #### [facility] ([id number]) [address] [place] [address] PHOSPHORUSon 09-10-2024 Phosphate [Mass/Vol] 3.1 mg/dL Normal 2.4-4.9 [facility] Comment on above: Performed By: #### Susie WAKEFIELD TSHR, 2132-03 #### [facility] ([id number]) [address] [place] [address] PROTIME AND INRon 09-10-2024 INR Coag (PPP) [Relative time] 1.4 {INR} High 0.8-1.1 [facility] Comment on above: Performed By: #### JAIME SUTHERLAND, 2132-03 #### [facility] ([id number]) [address] [place] [address] PT Coag (PPP) [Time] 16.3 s High 9.8-13.2 [facility] Comment on above: Performed By: #### JAIME SUTHERLAND, 2132-03 #### [facility] ([id number]) [address] [place] [address] Procalcitonin IA [Mass/Vol]o n 09-10-2024 PROCALCITONIN 0.10 ng/mL High <0.05 [facility] Comment on above: Result Comment: NOTE <0.50 ng/mL - Low risk of severe sepsis and/or septic shock. <2.00 ng/mL - Recommend retesting within 6-24 hours. >2.00 ng/mL - High risk of sepsis and/or septic shock. Performed By: #### Susie WAKEFIELD TSHBrit, 2132-03 #### [facility] ([id number]) [address] [place] [address] Surgical Pathologyon 025 Surgical Pathology Normal [facility] Comment on above: Result Comment: [facility] [address] [place] [address] Bone Marrow Consultation Patient Name:PENNY ORDAZ:1960 (Age: 63)Gender:MTaken:09/10/2024Reported:09/15/2024Physician(s):Yeny Tyson ([phone])Copy To:Fredrick Sousa, [facility] Systemession #:[id number]. Rec. #:[id number]: #[id number] Final Pathologic Diagnosis C/W PRIMARY MYELOFIBROSIS in [...] circulating nRBCs. Correlation with the myeloproliferative neoplasm show horse driver mutations is appreciated. There is no [...] acquisition are identified on maturing myeloid cells. [place] on the lymphoid population demonstrates a mixed population of phenotypically unremarkable T-cells, polyclonal B-cells, and natural killer cells, without a detectable monoclonal population. No significant plasma cell population is identified. Immunophenotyping antibodies tested: CD2, CD3, CD4, CD5, CD7, CD8, CD10, CD13, CD16, CD19, CD20, CD23, CD33, CD34, CD38, CD43, CD45, CD56, CD117, CD123, CD138, TRCB1, [place], and Lambda. Immunophenotyping Comment: Immunophenotyping has been used in this diagnostic evaluation. This test was developed and its performance characteristics determined by the [facility] Department. It has not been [...] Out Arcenio Alonzo MD Interpretation performed at [facility], [address] [place] [address], License number: [id number]. Clinical History Concern for lymphoma, CT abdomen pelvis with bulky retroperitoneal, right iliac, inguinal lymphadenopathy with splenomegaly. Gross Description 1. Received in B+, labeled ORDAZ, right iliac crest BM clot , is a 1.9 x 0.7 x 0.1 cm aggregate of dark red-brown, clotted hemorrhagic material. The specimen is submitted entirely in a single cassette. (1,ns,[id number], m5)MW 2. Received in B+, labeled ORDAZ, right iliac crest BMBX , is a cylindrical bone core biopsy, 0.8 in length x 0.3 cm in diameter. The specimen is submitted entirely in a single cassette, following brief decalcification in [employer]. (1,ns,[id number], m5)MW mxw/09/10/2024SAN Microscopic Findings Clinical History: Retroperitoneal [...] 09-10-2024 Urate [Mass/Vol] 6.1 mg/dL Normal 2.6-7.2 [facility] Comment on above: Performed By: #### C JAIME WAKEFIELD, 2132-03 #### [facility] ([id number]) [address] [place] [address] BASIC METABOLIC PANLon 09-09 Anion gap [Moles/Vol] 3 mmol/L Low 5-15 [facility] Comment on above: Performed By: #### C MAGUI WAKEFIELDR, 2132-03 #### [facility] ([id number]) [address] [place] [address] Calcium [Mass/Vol] 8.2 mg/dL Low 8.5-10.5 [facility] Comment on above: Performed By: #### JAIME SUTHERLAND, 2132-03 #### [facility] ([id number]) [address] [place] [address] Chloride [Moles/Vol] 104 mmol/L Normal 98-109 [facility] Comment on above: Performed By: #### JAIME SUTHERLAND, 2132-03 #### [facility] ([id number]) [address] [place] [address] CO2 [Moles/Vol] 28 mmol/L Normal 22-32 [facility] Comment on above: Performed By: #### JAIME SUTHERLAND, 2132-03 #### [facility] ([id number]) [address] [place] [address] Creatinine [Mass/Vol] 0.63 mg/dL Normal 0.60-1.30 [facility] Comment on above: Result Comment: METH OD TRACEABLE TO IDMS STANDARD Performed By: #### JAIME SUTHERLAND, 2132-03 #### [facility] ([id number]) [address] [place] [address] eGFR (CKD-EPI) NON-RACE DEPENDENT >90 Normal >59 [facility] Comment on above: Result Comment: Reported eGFR is based on the CKD-EPI 2020 equation that does not use a race coefficient. Performed By: #### JAIME SUTHERLAND, 2132-03 #### [facility] ([id number]) [address] [place] [address] Glucose [Mass/Vol] 112 mg/dL High 65-99 [facility] Comment on above: Performed By: #### JAIME SUTHERLAND, 2132-03 #### [facility] ([id number]) [address], [address] [place] [address] Potassium [Moles/Vol] 4.2 mmol/L Normal 3.5-5.0 [facility] Comment on above: Performed By: #### JAIME SUTHERLAND, 2132-03 #### [facility] ([id number]) [address], [address] [place] [address] Sodium [Moles/Vol] 135 mmol/L Normal 134-146 [facility] Comment on above: Performed By: #### JAIME SUTHERLAND, 2132-03 #### [facility] ([id number]) [address], [address] [place] [address] Urea nitrogen [Mass/Vol] 12 mg/dL Normal 5-27 [facility] Comment on above: Performed By: #### JAIME SUTHERLAND, 2132-03 #### [facility] ([id number]) [address], [address] [place] [address] CBC AND AUTO DIFFon 09-09-19 25 ABSOLUTE BASOPHIL 0.1 X10E9/L Normal 0.0-0.2 [facility] Comment on above: Performed By: #### JAIME SUTHERLAND, 2132-03 #### [facility] ([id number]) [address], [address] [place] [address] Band form neutrophils/100 WBC (Bld) 5.8 % Normal [facility] Comment on above: Performed By: #### JAIME SUTHERLAND, 2132-03 #### [facility] ([id number]) [address], [address] [place] [address] Basophils/100 WBC (Bld) 1.0 % Normal [facility] Comment on above: Performed By: #### JAIME SUTHERLAND, 2132-03 #### [facility] ([id number]) [address], [address] [place] [address] Erythrocyte distribution width (RBC) [Ratio] 20.4 % High 11.5-15.0 [facility] Comment on above: Performed By: #### Susie WAKEFIELD TSHR, 2132-03 #### [facility] ([id number]) [address], [address] [place] [address] Hematocrit (Bld) [Volume fraction] 22.1 % Low 39-49 [facility] Comment on above: Performed By: #### JAIME SUTHERLAND, 2132-03 #### [facility] ([id number]) [address], [address] [place] [address] Hemoglobin (Bld) [Mass/Vol] 7.2 g/dL Low 13.0-17.0 [facility] Comment on above: Performed By: #### JAIME SUTHERLAND, 2132-03 #### [facility] ([id number]) [address], [address] [place] [address] Lymphocytes (Bld) [#/Vol] 0.4 10*3/uL Low 1.0-3.5 [facility] Comment on above: Performed By: #### JAIME SUTHERLAND, 2132-03 #### [facility] ([id number]) [address], [address] [place] [address] Lymphocytes/100 WBC (Bld) 6.7 % Normal [facility] Comment on above: Performed By: #### JAIME SUTHERLAND, 2132-03 #### [facility] ([id number]) [address], [address] [place] [address] MCH (RBC) [Entitic mass] 30.2 pg Normal 27-34 [facility] Comment on above: Performed By: #### JAIME SUTHERLAND, 2132-03 #### [facility] ([id number]) [address], [address] [place] [address] MCHC (RBC) [Mass/Vol] 32.5 g/dL Normal 32-36 [facility] Comment on above: Performed By: #### Susie WAKEFIELD TSHR, 2132-03 #### [facility] ([id number]) [address], [address] [place] [address] MCV (RBC) [Entitic vol] 93 fL Normal 80-100 [facility] Comment on above: Performed By: #### Susie WAKEFIELD TSHR, 2132-03 #### [facility] ([id number]) [address], [address] [place] [address] Monocytes (Bld) [#/Vol] 0.1 10*3/uL Normal 0-0.9 [facility] Comment on above: Performed By: #### MAGUI SUTHERLANDR, 2132-03 #### [facility] ([id number]) [address], [address] [place] [address] Monocytes/100 WBC (Bld) 1.0 % Normal P [facility] Comment on above: Performed By: #### Susie WAKEFIELD TSHR, 2132-03 #### [facility] ([id number]) [address], [address] [place] [address] MYELOCYTE 1.0 % Normal [facility] Comment on above: Performed By: #### Susie WAKEFIELD TSHR, 2132-03 #### [facility] ([id number]) [address], [address] [place] [address] Neutrophils (Bld) [#/Vol] 5.9 10*3/uL Normal 1.5-6.6 [facility] Comment on above: Performed By: #### Susie WAKEFIELD TSHR, 2132-03 #### [facility] ([id number]) [address], [address] [place] [address] OVALOCYTE 2+ Abnormal NONE [facility] Comment on above: Performed By: #### Susie WAKEFIELD TSHR, 2132-03 #### [facility] ([id number]) [address], [address] [place] [address] Platelet mean volume (Bld) [Entitic vol] 7.7 fL Normal 7-12 [facility] Comment on above: Performed By: #### JAIME SUTHERLAND, 2132-03 #### [facility] ([id number]) [address], [address] [place] [address] Platelets (Bld) [#/Vol] 236 10*3/uL Normal 150-450 [facility] Comment on above: Performed By: #### JAIME SUTHERLAND, 2132-03 #### [facility] ([id number]) [address], [address] [place] [address] RBC COUNT 2.38 X10E12/L Low 4.10-5.70 [facility] Comment on above: Performed By: #### JAIME SUTHERLAND, 2132-03 #### [facility] ([id number]) [address], [address] [place] [address] SEG NEUTROPHIL 84.5 % Normal [facility] Comment on above: Performed By: #### JAIME SUTHERLAND, 2132-03 #### [facility] ([id number]) [address], [address] [place] [address] TOXIC GRANULATION 1+ Abnormal NONE [facility] Comment on above: Performed By: #### JAIME SUTHERLAND, 2132-03 #### [facility] ([id number]) [address], [address] [place] [address] WBC (Bld) [#/Vol] 6.5 10*3/uL Normal 4.0-11.0 [facility] Comment on above: Performed By: #### JAIME SUTHERLAND, 2132-03 #### [facility] ([id number]) [address], [address] [place] [address] CT CHEST W CONTon 09-09-2024 CT CHEST [...] Harmon MD on 09/09/2024 9:05 AM Normal [facility] HBV core Ab IA Qlon 09-09-19 25 ANTI HBc Non-Reactive Normal NRCT [facility] Comment on above: Result Comment: NEW TEST METHOD Performed By: #### Susie WAKEFIELD, TSHR, 2132-03 #### [facility] ([id number]) [address], [address] [place] [address] HBV surface Ab IA Qnon 09-09 Anti HBs quant. >500.00 Normal [facility] Comment on above: Result Comment: NOTE Vaccinated: >=10.00 mIU/mL, Positive (Immune) Unvaccinated: <10.00 mIU/mL, Negative (Not Immune) Interpretive values have changed due to implementation of a new method. Values run higher than previous method. Performed By: #### Susie WAKEFIELD TSHR, 2132-03 #### [facility] ([id number]) [address], [address] [place] [address] HBV surface Ag IA Qlon 09-09 HEPATITIS B SURF AG Non-Reactive Normal NRCT [facility] Comment on above: Result Comment: NEW TEST METHOD Performed By: #### Susie WAKEFIELD, TSHR, 2132-03 #### [facility] ([id number]) [address], [address] [place] [address] MAGNESIUMon 09-09-2024 Magnesium [Mass/Vol] 2.0 mg/dL Normal 1.8-2.6 [facility] Comment on above: Performed By: #### Susie WAKEFIELD TSHR, 2132-03 #### [facility] ([id number]) [address], [address] [place] [address] MR BRAIN W WO CONTon 025 MR [...] David Stuart on 09/09/2024 2:26 PM Normal [facility] PROTIME AND INRon 09-09-2024 INR Coag (PPP) [Relative time] 1.4 {INR} High 0.8-1.1 [facility] Comment on above: Performed By: #### C ASHU, TSHR, 2132-03 #### [facility] ([id number]) [address], [address] [place] [address] PT Coag (PPP) [Time] 16.6 s High 9.8-13.2 [facility] Comment on above: Performed By: #### Susie WAKEFIELD, TSHR, 2132-03 #### [facility] ([id number]) [address], [facility] [address] [place] [address] Anileridine Ql (U)on 025 JO1 ANTIBODY <0.2 Normal <1.0 [facility] Comment on above: Performed By: #### Susie BC, TSHR, 2132-03 #### [facility] ([id number]) [address], [address] [place] [address] BASIC METABOLIC PANLon 09-08 Anion gap [Moles/Vol] 8 mmol/L Normal 5-15 [facility] Comment on above: Performed By: #### C BCA, PINR, BMP, 76857-3, 2284-8, 59803-3, LIVR #### [facility] ([id number]) [address], [address] [place] [address] Calcium [Mass/Vol] 8.6 mg/dL Normal 8.5-10.5 [facility] Comment on above: Performed By: #### C BCA, PINR, BMP, 78520-1, 2284-8, 42375-5, LIVR #### [facility] ([id number]) [address], [address] [place] [address] Chloride [Moles/Vol] 104 mmol/L Normal 98-109 [facility] Comment on above: Performed By: #### C BCA, PINR, BMP, 55313-6, 2284-8, 33649-5, LIVR #### [facility] ([id number]) [address], [address] [place] [address] CO2 [Moles/Vol] 23 mmol/L Normal 22-32 [facility] Comment on above: Performed By: #### C BCA, PINR, BMP, 97144-5, 2284-8, 95234-2, LIVR #### [facility] ([id number]) [address], [address] [place] [address] Creatinine [Mass/Vol] 0.67 mg/dL Normal 0.60-1.30 [facility] Comment on above: Result Comment: METH OD TRACEABLE TO IDMS STANDARD Performed By: #### C BCA, PINR, BMP, 97171-3, 2284-8, 65638-7, LIVR #### [facility] ([id number]) [address], [address] [place] [address] eGFR (CKD-EPI) NON-RACE DEPENDENT >90 Normal >59 [facility] Comment on above: Result Comment: Reported eGFR is based on the CKD-EPI 2020 equation that does not use a race coefficient. Performed By: #### C BCA, PINR, BMP, 32370-0, 2284-8, 14778-4, LIVR #### [facility] ([id number]) [address], [address] [place] [address] Glucose [Mass/Vol] 86 mg/dL Normal 65-99 [facility] Comment on above: Performed By: #### C BCA, PINR, BMP, 59771-0, 2284-8, 95029-0, LIVR #### [facility] ([id number]) [address], [address] [place] [address] Potassium [Moles/Vol] 4.4 mmol/L Normal 3.5-5.0 [facility] Comment on above: Performed By: #### C BCA, PINR, BMP, 93703-9, 2284-8, 44515-9, LIVR #### [facility] ([id number]) [address], [address] [place] [address] Sodium [Moles/Vol] 135 mmol/L Normal 134-146 [facility] Comment on above: Performed By: #### C BCA, PINR, BMP, 97653-9, 4-8, 53322-3, LIVR #### [facility] ([id number]) [address], [address] [place] [address] Urea nitrogen [Mass/Vol] 13 mg/dL Normal 5-27 [facility] Comment on above: Performed By: #### C BCA, PINR, BMP, 42079-8, 2284-8, 04445-2, LIVR #### [facility] ([id number]) [address], [address] [place] [address] CBC AND AUTO DIFFon 09-08-19 25 ABSOLUTE BASOPHIL 0.1 X10E9/L Normal 0.0-0.2 [facility] Comment on above: Performed By: #### C BCA, PINR, BMP, 13226-1, 2284-8, 72119-4, LIVR #### [facility] ([id number]) [address], [address] [place] [address] ABSOLUTE NEUTROPHIL 6.0 X10E9/L Normal 1.5-6.6 [facility] Comment on above: Performed By: #### C BCA, PINR, BMP, 91087-6, 2284-8, 10176-0, LIVR #### [facility] ([id number]) [address], [address] [place] [address] Basophils/100 WBC (Bld) 1.2 % Normal P [facility] Comment on above: Performed By: #### C BCA, PINR, BMP, 41364-5, 2284-8, 65727-7, LIVR #### [facility] ([id number]) [address], [address] [place] [address] Eosinophils (Bld) [#/Vol] 0.0 10*3/uL Normal 0.0-0.4 [facility] Comment on above: Performed By: #### C BCA, PINR, BMP, 62684-3, 2284-8, 04325-0, LIVR #### [facility] ([id number]) [address], [address] [place] [address] Eosinophils/100 WBC (Bld) 0.1 % Normal [facility] Comment on above: Performed By: #### C BCA, PINR, BMP, 16582-8, 2284-8, 03930-0, LIVR #### [facility] ([id number]) [address], [address] [place] [address] Erythrocyte distribution width (RBC) [Ratio] 21.0 % High 11.5-15.0 [facility] Comment on above: Performed By: #### C BCA, PINR, BMP, 74084-2, 2284-8, 37026-5, LIVR #### [facility] ([id number]) [address], [address] [place] [address] FRAGMENT 1+ Abnormal NONE [facility] Comment on above: Performed By: #### C BCA, PINR, BMP, 95572-9, 2284-8, 99186-7, LIVR #### [facility] ([id number]) [address], [address] [place] [address] Hematocrit (Bld) [Volume fraction] 21.7 % Low 39-49 [facility] Comment on above: Performed By: #### C BCA, PINR, BMP, 82858-5, 2284-8, 94775-8, LIVR #### [facility] ([id number]) [address], [address] [place] [address] Hemoglobin (Bld) [Mass/Vol] 7.4 g/dL Low 13.0-17.0 [facility] Comment on above: Performed By: #### C BCA, PINR, BMP, 67673-5, 2284-8, 83753-6, LIVR #### [facility] ([id number]) [address], [address] [place] [address] Lymphocytes (Bld) [#/Vol] 0.6 10*3/uL Low 1.0-3.5 [facility] Comment on above: Performed By: #### C BCA, PINR, BMP, 65072-4, 2284-8, 73929-8, LIVR #### [facility] ([id number]) [address], [address] [place] [address] Lymphocytes/100 WBC (Bld) 8.2 % Normal [facility] Comment on above: Performed By: #### C BCA, PINR, BMP, 15676-3, 2284-8, 36270-7, LIVR #### [facility] ([id number]) [address], [address] [place] [address] MCH (RBC) [Entitic mass] 31.4 pg Normal 27-34 [facility] Comment on above: Performed By: #### C BCA, PINR, BMP, 03814-3, 2284-8, 18021-7, LIVR #### [facility] ([id number]) [address], [address] [place] [address] MCHC (RBC) [Mass/Vol] 34.1 g/dL Normal 32-36 [facility] Comment on above: Performed By: #### C BCA, PINR, BMP, 47720-7, 2284-8, 56372-6, LIVR #### [facility] ([id number]) [address], [address] [place] [address] MCV (RBC) [Entitic vol] 92 fL Normal 80-100 P [facility] Comment on above: Performed By: #### C BCA, PINR, BMP, 67302-8, 2284-8, 89345-4, LIVR #### [facility] ([id number]) [address], [address] [place] [address] Monocytes (Bld) [#/Vol] 0.4 10*3/uL Normal 0-0.9 [facility] Comment on above: Performed By: #### C BCA, PINR, BMP, 10683-5, 2284-8, 29872-6, LIVR #### [facility] ([id number]) [address], [address] [place] [address] Monocytes/100 WBC (Bld) 5.7 % Normal P [facility] Comment on above: Performed By: #### C BCA, PINR, BMP, 74092-8, 2284-8, 85923-6, LIVR #### [facility] ([id number]) [address], [address] [place] [address] Neutrophils/100 WBC (Bld) 84.8 % Normal [facility] Comment on above: Performed By: #### C BCA, PINR, BMP, 37139-9, 2284-8, 13053-3, LIVR #### [facility] ([id number]) [address], [address] [place] [address] OVALOCYTE 1+ Abnormal NONE [facility] Comment on above: Performed By: #### C BCA, PINR, BMP, 16414-4, 2284-8, 73572-2, LIVR #### [facility] ([id number]) [address], [address] [place] [address] Platelet mean volume (Bld) [Entitic vol] 7.4 fL Normal 7-12 [facility] Comment on above: Performed By: #### C BCA, PINR, BMP, 93046-2, 2284-8, 12003-2, LIVR #### [facility] ([id number]) [address], [facility] [address] [place] [address] Platelets (Bld) [#/Vol] 245 10*3/uL Normal 150-450 [facility] Comment on above: Performed By: #### C BCA, PINR, BMP, 54783-4, 2284-8, 86661-8, LIVR #### [facility] ([id number]) [address], [address] [place] [address] RBC COUNT 2.36 X10E12/L Low 4.10-5.70 [facility] Comment on above: Performed By: #### C BCA, PINR, BMP, 42045-5, 2284-8, 57049-4, LIVR #### [facility] ([id number]) [address], [address] [place] [address] TEARDROP 1+ Abnormal NONE [facility] Comment on above: Performed By: #### C BCA, PINR, BMP, 53144-8, 2284-8, 08222-4, LIVR #### [facility] ([id number]) [address], [address] [place] [address] WBC (Bld) [#/Vol] 7.1 10*3/uL Normal 4.0-11.0 [facility] Comment on above: Performed By: #### C BCA, PINR, BMP, 50694-4, 2284-8, 48037-1, LIVR #### [facility] ([id number]) [address] [place] [address], [address] [place] [address] Chromatin Ab Qlon 09-08-2024 CHROMATIN AB IGG <0.2 Normal <1.0 [facility] Comment on above: Performed By: #### C MP, 57083-1 #### [facility] ([id number]) [address] [place] [address], [address] [place] [address] Clinical Pathologyon 025 Clinical Pathology Normal [facility] Comment on above: Result Comment: [facility] [address] [place] [address] Clinical Pathology Report Patient Name:PENNY ORDAZ:1960 (Age: 63)Gender:MTaken:09/08/2024Reported:09/10/2024Physician(s):Yeny Tyson ([phone])Copy To: Rec. 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 Mild hypoalbuminemia. Report Electronically Signed Out df/09/10/2024Asher Glez MD Interpretation performed at [facility] [place] [address], License number: [id number]. Clinical History D64.9, R59.1, R16.1. SERUM PROTEIN ELECTROPHORESIS SAMPLE NO: [id number] ELECTROPHORETIC FRACTION CONCENTRATIONS (g/dL) PATIENT REFERENCE RANGE [...] IgA : 269 IgM : 126 Free [place]: 4.45 Free Lambda: 2.47 Free [place]/Lambda ratio: 1.80 Specimen(s) Received 1: Serum Protein Electrophoresis 2: Serum IEP Fee Codes(s): 1; 16841-54 2; 15331-91 Clinical Pathology Blood Sme ar Reviewon 09-08-2024 Clinical Pathology Blood Smear Review Normal [facility] Comment on above: Result Comment: [facility] [address] [place] [address] Clinical Pathology Report Patient Name:PENNY ORDAZ:1960 (Age: 63)Gender:MTaken:09/08/2024Reported:09/12/2024Physician(s):Wendi Lai M.D. ([phone])Copy To: Rec. #:[id number]: #[id number] Final Pathologic Diagnosis PERIPHERAL BLOOD: - Normochromic, [...] Out rxd/09/12/2024Monico Ayala MD [facility], [address] [place] [address], License number: [id number]. Clinical History D64.9 BLOOD SMEAR EVALUATION CBC (09/08/2024 0308): WBC = 7.1 X10E9/L; HGB = 7.4 g/dL; HCT = 21.7%; MCV = 92 fL; PLT = 245 X10E9/L Specimen(s) Received Blood Smear Review Fee Codes(s): 1; [address] DNA double strand Ab Qn (S)o n 09-08-2024 DOUBLE STRANDED DNA <1 Normal <5 [facility] Comment on above: Result Comment: Interpretation-------- <5 Negative 5-9 Indeterminate >9 Positive Performed By: #### C AGNIESZKA, 98418-8 #### [facility] ([id number]) [address] [facility], [address] [place] [address] FLOW CYTOMETRYon 09-08-2024 FLOW CYTOMETRY SEE SEPARATE REPORT Normal P [facility] Comment on above: Result Comment: REVI EWED BY Tito ALONZO M.D. Performed By: #### C BCA, PINR, BMP, 43683-4, 2284-8, 63516-2, LIVR #### [facility] ([id number]) [address] [facility], [address] [place] [address] Folate [Mass/Vol]on 09-08-19 25 FOLIC ACID 9.1 ng/mL Normal >5.8 [facility] Comment on above: Result Comment: NEW REFERENCE RANGE Performed By: #### C BCA, PINR, BMP, 57803-7, 2284-8, 66746-5, LIVR #### [facility] ([id number]) [address] [facility], [address] [place] [address] Haptoglobin Nephelometry [Ma ss/Vol]on 09-08-2024 HAPTOGLOBIN 70 mg/dL Normal 32-228 [facility] Comment on above: Performed By: #### Susie AARON, 16320-1 #### [facility] ([id number]) [address], [address] [place] [address] IMMUNOELECTROPHORESIS FOR TH ERAPY MONITORINGon 09-08-2024 FREE KELSI/LAMBD RATIO 1.80 High 0.26-1.65 [facility] Comment on above: Performed By: #### Susie AARON, 52108-0 #### [facility] ([id number]) [address] [place] [address] FREE KAPPA LT CHAINS 4.45 mg/dL High 0.33-1.94 [facility] Comment on above: Performed By: #### Susie AARON, 04737-6 #### [facility] ([id number]) [address], [address] [place] [address] FREE LAMBDA LT CHAINS 2.47 mg/dL Normal 0.57-2.63 [facility] Comment on above: Performed By: #### Susie AARON, 25647-3 #### [facility] ([id number]) [address] [place] [address] IgA [Mass/Vol] 269 mg/dL Normal 68-378 [facility] Comment on above: Performed By: #### Susie AARON, 25808-7 #### [facility] ([id number]) [address] [place] [address] IgG [Mass/Vol] 1236 mg/dL Normal 635-1741 [facility] Comment on above: Performed By: #### Susie AARON, 60231-2 #### [facility] ([id number]) [address] [place] [address] IgM [Mass/Vol] 126 mg/dL Normal 45-281 [facility] Comment on above: Performed By: #### Susie AARON, 78779-8 #### [facility] ([id number]) [address] [place] [address] IMMUNE PROFILE INTERP SEE SEPARATE REPORT Normal [facility] Comment on above: Performed By: #### Susie AARON, 94717-5 #### [facility] ([id number]) [address], [address] [place] [address] LDH [Catalytic activity/Vol] on 09-08-2024 LDH 661 U/L High 100-235 [facility] Comment on above: Performed By: #### Susie AARON, [id number] #### [facility] ([id number]) [address], [address] [place] [address] LIVER PANELon 09-08-2024 Albumin [Mass/Vol] 3.7 g/dL Normal 3.2-5.3 [facility] Comment on above: Performed By: #### Susie AARON, [id number] #### [facility] ([id number]) [address], [address] [place] [address] ALP [Catalytic activity/Vol] 87 U/L Normal 39-130 [facility] Comment on above: Performed By: #### Susie AARON, [id number] #### [facility] ([id number]) [address], [address] [place] [address] ALT [Catalytic activity/Vol] 6 U/L Normal 0-40 [facility] Comment on above: Performed By: #### Susie AARON, [id number] #### [facility] ([id number]) [address], [address] [place] [address] AST [Catalytic activity/Vol] 24 U/L Normal 0-41 [facility] Comment on above: Performed By: #### Susie AARON, [id number] #### [facility] ([id number]) [address], [address] [place] [address] Bilirubin [Mass/Vol] 1.2 mg/dL Normal 0.3-1.2 [facility] Comment on above: Performed By: #### [place], [id number] #### [facility] ([id number]) [address], [address] [place] [address] Bilirubin.direct [Mass/Vol] 0.3 mg/dL Normal 0.0-0.4 [facility] Comment on above: Performed By: #### Susie AARON, [id number] #### [facility] ([id number]) [address], [address] [place] [address] Protein [Mass/Vol] 6.8 g/dL Normal 6.0-8.0 [facility] Comment on above: Performed By: #### Susie AARON, [id number] #### [facility] ([id number]) [address], [address] [place] [address] MAGNESIUMon 09-08-2024 Magnesium [Mass/Vol] 1.9 mg/dL Normal 1.8-2.6 [facility] Comment on above: Performed By: #### C BCA, PINR, BMP, 66693-9, 2284-8, 07362-6, LIVR #### [facility] ([id number]) [address], [address] [place] [address] Natriuretic peptide B [Mass/ Vol]on 09-08-2024 Natriuretic peptide B (Bld) [Mass/Vol] 429 pg/mL High <100.0 [facility] Comment on above: Performed By: #### Susie AARON, 29996-7 #### [facility] ([id number]) [address], [address] [place] [address] Nuclear Ab IA Ql (S)on 09-08 BATOOL Screen w/reflex Positive Abnormal NEG [facility] Comment on above: Result Comment: Testing performed using multiplex flow immunoassay. Eleven different antigens associated with systemic autoimmune diseases (dsDNA,Sm,Sm/EMERGENCY MEDICINE SPECIALIST,EMERGENCY MEDICINE SPECIALIST,Chromatin, SSA,SSB,Lena-1,Scl70,Ribo P,Centromere B) are included in this screening test. Performed By: #### Susie AARON, 99691-4 #### [facility] ([id number]) [address] [facility], [address] [place] [address] PROTIME AND INRon 09-08-2024 INR Coag (PPP) [Relative time] 1.5 {INR} High 0.8-1.1 [facility] Comment on above: Performed By: #### C BCA, PINR, BMP, 89534-9, 2284-8, 26294-0, LIVR #### [facility] ([id number]) [address] [facility], [address] [place] [address] PT Coag (PPP) [Time] 17.0 s High 9.8-13.2 [facility] Comment on above: Performed By: #### C BCA, PINR, BMP, 56733-1, 2284-8, 65199-2, LIVR #### [facility] ([id number]) [address] [facility], [address] [place] [address] comment (Bld) [Interp]on 09-08-2024 STAFF REVIEW NOTE Normal [facility] Comment on above: Result Comment: [facility] [address] [place] [address] Clinical Pathology Report Patient Name:PENNY ORDAZ:1960 (Age: 63)Gender:MTaken:09/08/2024Reported:09/12/2024Physician(s):Wendi Lai M.D. ([phone])Copy To: Rec. #:[id number]: #[id number] Final Pathologic Diagnosis PERIPHERAL BLOOD: - Normochromic, [...] Out rxd/09/12/2024Monico Ayala MD Interpretation performed at [facility], [address] [place] [address], License number: [id number]. Clinical History D64.9 BLOOD SMEAR EVALUATION CBC (09/08/2024 0308): WBC = 7.1 X10E9/L; HGB = 7.4 g/dL; HCT = 21.7%; MCV = 92 fL; PLT = 245 X10E9/L Specimen(s) Received Blood Smear Review Fee Codes(s): 1; 86025 Performed By: #### C BCA, PINR, BMP, 14803-3, 2284-8, 98663-2, LIVR #### [facility] ([id number]) [address], [address] [address] Ribonucleoprotein extractabl e nuclear IgG Qn (S)on 09-08-2024 EMERGENCY MEDICINE SPECIALIST ANTIBODY IGG <0.2 Normal <1.0 [facility] Comment on above: Performed By: #### C BC, TSHR, 2132-03 #### [facility] ([id number]) [address] [facility] [address] [place] [address] SCL-70 extractable nuclear A b Ql (S)on 09-08-2024 SCL 70 ANTIBODY <0.2 Normal <1.0 [facility] Comment on above: Performed By: #### C BC, TSHR, 2132-03 #### [facility] ([id number]) [address] [facility] [address] [place] [address] SERUM PROTEIN ELECTROPHORESI Son 09-08-2024 Albumin [Mass/Vol] 3.2 g/dL Low 3.4-5.3 [facility] Comment on above: Performed By: #### Susie AARON, 46341-9 #### [facility] ([id number]) [address] [place] [address] ALPHA 1 GLOBULIN 0.4 g/dL Normal 0.1-0.4 [facility] Comment on above: Performed By: #### Susie AARON 42895-2 #### [facility] ([id number]) [address], [address] [place] [address] ALPHA 2 GLOBULIN 0.7 g/dL Normal 0.4-1.1 [facility] Comment on above: Performed By: #### Susie AARON 90743-8 #### [facility] ([id number]) [address], [address] [place] [address] BETA GLOBULIN 0.7 g/dL Normal 0.5-1.2 [facility] Comment on above: Performed By: #### Susie AARON 37223-7 #### [facility] ([id number]) [address], [address] [place] [address] GAMMA GLOBULIN 1.4 g/dL Normal 0.5-1.6 [facility] Comment on above: Performed By: #### Susie AARON 59004-6 #### [facility] ([id number]) [address], [address] [place] [address] PROT. ELECTROPHORESIS INTERP SEE SEPARATE REPORT Normal [facility] Comment on above: Performed By: #### Susie AARON 85556-7 #### [facility] ([id number]) [address] [place] [address] Protein [Mass/Vol] 6.3 g/dL Normal 6.0-8.0 [facility] Comment on above: Performed By: #### Stacy Richards MP31-1 #### [facility] ([id number]) [address], [address] [place] [address] Sjogrens syndrome-A extracta ble nuclear Ab Qn (S)on 09-08-2024 SSA ANTIBODY <0.2 Normal <1.0 [facility] Comment on above: Performed By: #### Susie BC, TSHR, 2132-03 #### [facility] ([id number]) [address] [facility], [address] [place] [address] Sjogrens syndrome-B extracta ble nuclear IgG Qn (S)on 09-08-2024 SSB ANTIBODY 4.3 AI High <1.0 [facility] Comment on above: Performed By: #### Susie WAKEFIELD, TSHR, 2132-03 #### [facility] ([id number]) [address] [facility], [address] [place] [address] Tavarez extractable nuclear Ab +Ribonucleoprotein extractable nuclear IgG Qn (S)on 09-08-2024 TAVAREZ/EMERGENCY MEDICINE SPECIALIST AB IGG <0.2 Normal <1.0 [facility] Comment on above: Performed By: #### Susie WAKEFIELD, TSHR, 2132-03 #### [facility] ([id number]) [address] [facility], [address] [place] [address] Tavarez extractable nuclear Ig G Qn (S)on 09-08-2024 ANTI-TAVAREZ AB IGG <0.2 Normal <1.0 [facility] Comment on above: Performed By: #### Susie WAKEFIELD, TSHR, 2132-03 #### [facility] ([id number]) [address] [facility], [address] [place] [address] Surgical Pathologyon 025 Surgical Pathology Normal [facility] Comment on above: Result Comment: [facility] [address] [place], [place] [address] Flow Cytometry Patient Name:PENNY ORDAZAccession #:[id number]. Rec. #:[id number]:Mayte Saavedrao CesarTaken:09/08/2024DOB:1960 (Age: 63)Location:TTH GEN 6 ACUTE E219Jqubliqv:09/08/2024Gender: Alice. Type:ToledoReported:Priority:RBilling #:[id number] Class:TTH Special Procedure OnlyPhysician(s): Jose Umanzor MD [...] CD19, CD33, CD34, CD45, CD117, CD123, CD138, [place], and [place]. Immunophenotyping Comment: Immunophenotyping has been used in this diagnostic evaluation. This test was developed and its performance characteristics determined by the [facility] Department. It has not been [...] The marrow study reveals primary myelofibrosis (see S25???3320). Electronically Signed Out mls/09/10/2024 Arcenio Alonzo MD TOTAL PROTEINon 09-08-2024 Protein [Mass/Vol] 6.6 g/dL Normal 6.0-8.0 [facility] Comment on above: Performed By: #### C AGNIESZKA, 08001-6 #### [facility] ([id number]) [address] [place] [address], [address] [place] [address] CBC AND AUTO DIFFon 09-07-19 25 Band form neutrophils/100 WBC (Bld) 4.0 % Normal [facility] Comment on above: Performed By: #### C MP, CBCA, PINR, 95300-1 #### [facility] ([id number]) [address] [place] [address] #### 4679-7, FEPR, 2276-4 #### [facility] ([id number]) [address] [place] [address], [address] [address] Erythrocyte distribution width (RBC) [Ratio] 24.2 % High 11.5-15.0 [facility] Comment on above: Performed By: #### C MP, CBCA, PINR, 33163-0 #### [facility] ([id number]) [address] [place] [address] #### 4679-7, FEPR, 2276-4 #### [facility] ([id number]) [address] [place] [address], [address] [place] [address] Hematocrit (Bld) [Volume fraction] 16.4 % Low 39-49 [facility] Comment on above: Performed By: #### C MP, CBCA, PINR, 82390-4 #### [facility] ([id number]) [address] [place] [address], [place] [address] #### 4679-7, FEPR, 2276-4 #### [facility] ([id number]) [address], [address] [place] [address] Hemoglobin (Bld) [Mass/Vol] 5.3 g/dL Critically low 13.0-17.0 [facility] Comment on above: Performed By: #### C MP, CBCA, PINR, 41669-5 #### [facility] ([id number]) [address] [place] [address] #### 4679-7, FEPR, 2276-4 #### [facility] ([id number]) [address], [address] [place] [address] Lymphocytes (Bld) [#/Vol] 0.6 10*3/uL Low 1.0-3.5 [facility] Comment on above: Performed By: #### C MP, CBCA, PINR, 34875-0 #### [facility] ([id number]) [address] [place] [address] #### 4679-7, FEPR, 2276-4 #### [facility] ([id number]) [address], [address] [place] [address] Lymphocytes/100 WBC (Bld) 9.0 % Normal [facility] Comment on above: Performed By: #### C MP, CBCA, PINR, 72082-7 #### [facility] ([id number]) [address] [place] [address] #### 4679-7, FEPR, 2276-4 #### [facility] ([id number]) [address], [address] [place] [address] MCH (RBC) [Entitic mass] 31.3 pg Normal 27-34 [facility] Comment on above: Performed By: #### C MP, CBCA, PINR, 40272-7 #### [facility] ([id number]) [address] [place] [address] #### 4679-7, FEPR, 6-4 #### [facility] ([id number]) [address], [address] [place] [address] MCHC (RBC) [Mass/Vol] 32.2 g/dL Normal 32-36 [facility] Comment on above: Performed By: #### C MP, CBCA, PINR, 43396-7 #### [facility] ([id number]) [address] [place] [address] #### 4679-7, FEPR, 6-4 #### [facility] ([id number]) [address], [address] [place] [address] MCV (RBC) [Entitic vol] 97 fL Normal 80-100 [facility] Comment on above: Performed By: #### C MP, CBCA, PINR, 95680-5 #### [facility] ([id number]) [address] [place] [address] #### 4679-7, FEPR, 2275-4 #### [facility] ([id number]) [address], [address] [place] [address] Monocytes (Bld) [#/Vol] 0.5 10*3/uL Normal 0-0.9 [facility] Comment on above: Performed By: #### C MP, CBCA, PINR, 40585-0 #### [facility] ([id number]) [address] [place] [address] #### 4679-7, FEPR, 2275-4 #### [facility] ([id number]) [address], [address] [place] [address] Monocytes/100 WBC (Bld) 7.0 % Normal [facility] Comment on above: Performed By: #### C MP, CBCA, PINR, 53085-6 #### [facility] ([id number]) [address] [place] [address] #### 4679-7, FEPR, 6-4 #### [facility] ([id number]) [address] [facility], [address] [place] [address] MYELOCYTE 1.0 % Normal [facility] Comment on above: Performed By: #### C MP, CBCA, PINR, 50718-1 #### [facility] ([id number]) [address] [place] [address] #### 4679-7, FEPR, 6-4 #### [facility] ([id number]) [address] [facility], [address] [place] [address] Neutrophils (Bld) [#/Vol] 6.0 10*3/uL Normal 1.5-6.6 [facility] Comment on above: Performed By: #### C MP, CBCA, PINR, 18078-7 #### [facility] ([id number]) [address] [place] [address] #### 4679-7, FEPR, 6-4 #### [facility] ([id number]) [address], [address] [place] [address] Platelet mean volume (Bld) [Entitic vol] 9.2 fL Normal 7-12 [facility] Comment on above: Performed By: #### C MP, CBCA, PINR, 41774-9 #### [facility] ([id number]) [address] [place] [address] #### 4679-7, FEPR, 6-4 #### [facility] ([id number]) [address] [place] [address] Platelets (Bld) [#/Vol] 349 10*3/uL Normal 150-450 [facility] Comment on above: Performed By: #### C MP, CBCA, PINR, 36683-9 #### [facility] ([id number]) [address] [place] [address] #### 4679-7, FEPR, 2276-4 #### [facility] ([id number]) [address] [place] [address] RBC COUNT 1.69 X10E12/L Low 4.10-5.70 [facility] Comment on above: Performed By: #### C MP, CBCA, PINR, 12445-5 #### [facility] ([id number]) [address] [place] [address] #### 4679-7, FEPR, 2276-4 #### [facility] ([id number]) [address] [place] [address] RBC morphology finding Nom (Bld) REVIEWED Normal [facility] Comment on above: Performed By: #### C MP, CBCA, PINR, 95836-3 #### [facility] ([id number]) [address] [place] [address] #### 4679-7, FEPR, 2276-4 #### [facility] ([id number]) [address], [address] [place] [address] SEG NEUTROPHIL 79.0 % Normal [facility] Comment on above: Performed By: #### C MP, CBCA, PINR, 56935-1 #### [facility] ([id number]) [address] [place] [address] #### 4679-7, FEPR, 2276-4 #### [facility] ([id number]) [address] [facility], [address] [place] [address] WBC (Bld) [#/Vol] 7.2 10*3/uL Normal 4.0-11.0 [facility] Comment on above: Performed By: #### C MP, CBCA, PINR, 14228-9 #### [facility] ([id number]) [address] [place] [address] #### 4679-7, FEPR, 2276-4 #### [facility] ([id number]) [address] [place] [address], [address] [place] [address] COMPREHENSIVE METABOLIC PANE John Paul 09-07-2024 Albumin [Mass/Vol] 3.5 g/dL Normal 3.2-5.3 [facility] Comment on above: Performed By: #### C MP, CBCA, PINR, 52854-5 #### [facility] ([id number]) [address] [place] [address] #### 4679-7, FEPR, 2276-4 #### [facility] ([id number]) [facility], [address] [place] [address] ALP [Catalytic activity/Vol] 84 U/L Normal 39-130 [facility] Comment on above: Performed By: #### C MP, CBCA, PINR, 07268-4 #### [facility] ([id number]) [address] [place] [address] #### 4679-7, FEPR, 2276-4 #### [facility] ([id number]) [address] [facility], [address] [place] [address] ALT [Catalytic activity/Vol] 12 U/L Normal 0-40 [facility] Comment on above: Performed By: #### C MP, CBCA, PINR, 68264-1 #### [facility] ([id number]) [address] [place] [address] #### 4679-7, FEPR, 2276-4 #### [facility] ([id number]) [address], [address] [place] [address] Anion gap [Moles/Vol] 8 mmol/L Normal 5-15 [facility] Comment on above: Performed By: #### C MP, CBCA, PINR, 86920-2 #### [facility] ([id number]) [address] [place] [address] #### 4679-7, FEPR, 2276-4 #### [facility] ([id number]) [address], [address] [place] [address] AST [Catalytic activity/Vol] 22 U/L Normal 0-41 [facility] Comment on above: Performed By: #### C MP, CBCA, PINR, 55441-3 #### [facility] ([id number]) [address] [place] [address] #### 4679-7, FEPR, 2276-4 #### [facility] ([id number]) [address], [address] [place] [address] Bilirubin [Mass/Vol] 0.9 mg/dL Normal 0.3-1.2 [facility] Comment on above: Performed By: #### C MP, CBCA, PINR, 11465-9 #### [facility] ([id number]) [address] [place] [address] #### 4679-7, FEPR, 2276-4 #### [facility] ([id number]) [address], [address] [place] [address] Calcium [Mass/Vol] 8.1 mg/dL Low 8.5-10.5 [facility] Comment on above: Performed By: #### C MP, CBCA, PINR, 56775-0 #### [facility] ([id number]) [address] [place] [address] #### 4679-7, FEPR, 2276-4 #### [facility] ([id number]) [address], [address] [place] [address] Chloride [Moles/Vol] 104 mmol/L Normal 98-109 [facility] Comment on above: Performed By: #### C MP, CBCA, PINR, 97348-4 #### [facility] ([id number]) [address] [place] [address] #### 4679-7, FEPR, 2276-4 #### [facility] ([id number]) [address], [address] [place] [address] CO2 [Moles/Vol] 21 mmol/L Low 22-32 [facility] Comment on above: Performed By: #### C MP, CBCA, PINR, 47912-5 #### [facility] ([id number]) [address] [place] [address] #### 4679-7, FEPR, 6-4 #### [facility] ([id number]) [address], [address] [place] [address] Creatinine [Mass/Vol] 0.71 mg/dL Normal 0.70-1.20 [facility] Comment on above: Result Comment: METH OD TRACEABLE TO IDMS STANDARD Performed By: #### C MP, CBCA, PINR, 78865-5 #### [facility] ([id number]) [address] [place] [address] #### 4679-7, FEPR, 2276-4 #### [facility] ([id number]) [address], [address] [place] [address] eGFR (CKD-EPI) NON-RACE DEPENDENT >90 Normal >59 [facility] Comment on above: Result Comment: Reported eGFR is based on the CKD-EPI 2020 equation that does not use a race coefficient. Performed By: #### C MP, CBCA, PINR, 40698-8 #### [facility] ([id number]) [address] [place] [address] #### 4679-7, FEPR, 2276-4 #### [facility] ([id number]) [address], [address] [place] [address] Glucose [Mass/Vol] 104 mg/dL High 65-99 [facility] Comment on above: Performed By: #### C MP, CBCA, PINR, 27934-6 #### [facility] ([id number]) [address] [place] [address] #### 4679-7, FEPR, 2276-4 #### [facility] ([id number]) [address], [address] [place] [address] Potassium [Moles/Vol] 4.1 mmol/L Normal 3.5-5.0 [facility] Comment on above: Performed By: #### C MP, CBCA, PINR, 44248-8 #### [facility] ([id number]) [address] [place] [address] #### 4679-7, FEPR, 2276-4 #### [facility] ([id number]) [address], [address] [place] [address] Protein [Mass/Vol] 6.9 g/dL Normal 6.0-8.0 [facility] Comment on above: Performed By: #### C MP, CBCA, PINR, 69937-7 #### [facility] ([id number]) [address] [place] [address] #### 4679-7, FEPR, 2276-4 #### [facility] ([id number]) [address], [address] [place] [address] Sodium [Moles/Vol] 133 mmol/L Low 134-146 [facility] Comment on above: Performed By: #### C MP, CBCA, PINR, 67638-2 #### [facility] ([id number]) [address] [place] [address] #### 4679-7, FEPR, 2276-4 #### [facility] ([id number]) [address], [address] [place] [address] Urea nitrogen [Mass/Vol] 12 mg/dL Normal 5-27 [facility] Comment on above: Performed By: #### C MP, CBCA, PINR, 08104-5 #### [facility] ([id number]) [address] [place] [address] #### 4679-7, FEPR, 2276-4 #### [facility] ([id number]) [address], [address] [place] [address] CT ABDOMEN AND PELVIS W CONT on [...] Franklin MD on 09/07/2024 10:11 AM Normal [facility] FERRITINon 09-07-2024 Ferritin [Mass/Vol] 292 ng/mL Normal 24-336 [facility] Comment on above: Performed By: #### C MP, CBCA, PINR, 48091-0 #### [facility] ([id number]) [address] [place] [address] #### 4679-7, FEPR, 2276-4 #### [facility] ([id number]) [address], [address] [place] [address] HEMOGLOBINon 09-07-2024 Hemoglobin (Bld) [Mass/Vol] 6.4 g/dL Critically low 13.0-17.0 [facility] Comment on above: Performed By: #### C MP, CBCA, PINR, 88430-0 #### [facility] ([id number]) [address] [place] [address]22 #### 4679-7, FEPR, 2276-4 #### [facility] ([id number]) [address], [address] [place] [address] HGBon 09-07-2024 Hematocrit (Bld) [Volume fraction] 21.7 % Low 39-49 [facility] Comment on above: Performed By: #### C MP, CBCA, PINR, 42902-6 #### [facility] ([id number]) [address] [place] [address]997 #### 4679-7, FEPR, 2276-4 #### [facility] ([id number]) [address], [address] [place] [address] Hemoglobin (Bld) [Mass/Vol] 7.3 g/dL Low 13.0-17.0 [facility] Comment on above: Performed By: #### C AGNIESZKA, CBCA, PINR, 91215-6 #### [facility] ([id number]) [address] [place] [address]10 #### 4679-7, FEPR, 6-4 #### [facility] ([id number]) [address], [address] [place] [address] Hematocrit Auto (Bld) [Volum e fraction]on 09-07-2024 Hematocrit (Bld) [Volume fraction] 19.2 % Low 39-49 [facility] Comment on above: Performed By: #### 4 544-3, 718-7 #### [facility] ([id number]) [address] [place] [address] IRON PROFILEon 09-07-2024 Iron [Mass/Vol] 112 ug/dL Normal 50-212 [facility] Comment on above: Performed By: #### C AGNIESZKA, CBCA, PINR, [id number] #### [facility] ([id number]) [address] [place] [address] #### 4679-7, FEPR, 2276-4 #### [facility] ([id number]) [address], [address] [place] [address] IRON BINDING 294 ug/dL Normal 250-425 [facility] Comment on above: Performed By: #### C MP, CBCA, PINR, [id number] #### [facility] ([id number]) [address] [place] [address] #### 4679-7, FEPR, 2276-4 #### [facility] ([id number]) [address], [address] [place] [address] IRON SATURATION 38 % SATURATION Normal 20-50 [facility] Comment on above: Performed By: #### C MP, CBCA, PINR, [id number] #### [facility] ([id number]) [address] [place] [address] #### 4679-7, FEPR, 6-4 #### [facility] ([id number]) [address], [address] [place] [address] PROTIME AND INRon 09-07-2024 INR Coag (PPP) [Relative time] 1.5 {INR} High 0.8-1.1 [facility] Comment on above: Performed By: #### C MP, CBCA, PINR, [id number] #### [facility] ([id number]) [address] [place] [address] #### 4679-7, FEPR, 2276-4 #### [facility] ([id number]) [address], [address] [place] [address] PT Coag (PPP) [Time] 17.0 s High 9.8-13.2 [facility] Comment on above: Result Comment: NEW REFERENCE RANGE Performed By: #### C MP, CBCA, PINR, [id number] #### [facility] ([id number]) [address] [place] [address] #### 4679-7, FEPR, 2276-4 #### [facility] ([id number]) [address], [address] [place] [address] Reticulocytes/100 RBC (Bld)o n 09-07-2024 RETICULOCYTE COUNT 2.5 % High 0.4-2.2 [facility] Comment on above: Performed By: #### C MP, CBCA, PINR, [id number] #### [facility] ([id number]) [address] [place] [address] #### 4679-7, FEPR, 2276-4 #### [facility] ([id number]) [address], [address] [place] [address] XR CHEST 1 VWon 09-07-2024 XR CHEST [...] Jhonny East DO on 09/07/2024 10:09 AM ITamela MD have personally reviewed the image(s) and agree with and/or edited the report Finalized by Tamela Escalante MD on 09/07/2024 10:14 AM Normal [facility] aPTT Coag (PPP) [Time]on aPTT Coag (Bld) [Time] 33 s Normal 26-37 [facility] Comment on above: Result Comment: NEW REFERENCE RANGE Performed By: #### C MP, CBCA, PINR, 79702-3 #### [facility] ([id number]) [address] [place] [address] #### 4679-7, FEPR, 2276-4 #### [facility] ([id number]) [address], [address] [place] [address] COMPLETE BLOOD COUNTon 09-06 Erythrocyte distribution width (RBC) [Ratio] 24.0 % High 11.5-15.0 [facility] Comment on above: Performed By: #### Susie WAKEFIELD TSHR, 2132-03 #### [facility] ([id number]) [address], [facility] [address] [place] [address] Hematocrit (Bld) [Volume fraction] 17.4 % Low 39-49 [facility] Comment on above: Performed By: #### Susie WAKEFIELD TSHR, 2132-03 #### [facility] ([id number]) [address], [facility] [address] [place] [address] Hemoglobin (Bld) [Mass/Vol] 5.4 g/dL Critically low 13.0-17.0 [facility] Comment on above: Performed By: #### Susie WAKEFIELD TSHR, 2132-03 #### [facility] ([id number]) [address], [address] [place] [address] MCH (RBC) [Entitic mass] 31.2 pg Normal 27-34 [facility] Comment on above: Performed By: #### Susie WAKEFIELD TSHR, 2132-03 #### [facility] ([id number]) [address], [address] [place] [address] MCHC (RBC) [Mass/Vol] 30.9 g/dL Low 32-36 [facility] Comment on above: Performed By: #### Susie WAKEFIELD TSHR, 2132-03 #### [facility] ([id number]) [address], [facility] [address] [place] [address] MCV (RBC) [Entitic vol] 101 fL High 80-100 P [facility] Comment on above: Performed By: #### Susie WAKEFIELD TSHR, 2132-03 #### [facility] ([id number]) [address], [address] [place] [address] Platelet mean volume (Bld) [Entitic vol] 9.9 fL Normal 7-12 [facility] Comment on above: Performed By: #### Susie WAKEFIELD TSHR, 2132-03 #### [facility] ([id number]) [address], [address] [place] [address] Platelets (Bld) [#/Vol] 356 10*3/uL Normal 150-450 [facility] Comment on above: Performed By: #### Susie WAKEFIELD TSHR, 2132-03 #### [facility] ([id number]) [address], [address] [place] [address] RBC COUNT 1.73 X10E12/L Low 4.10-5.70 [facility] Comment on above: Performed By: #### Susie WAKEFIELD TSHR, 2132-03 #### [facility] ([id number]) [address], [address] [place] [address] WBC (Bld) [#/Vol] 6.2 10*3/uL Normal 4.0-11.0 [facility] Comment on above: Performed By: #### Susie WAKEFIELD TSHR, 2132-03 #### [facility] ([id number]) [address], [address] [place] [address] TSH WITH REFLEXon 09-06-2024 TSH 3.61 uIU/mL Normal 0.49-4.67 [facility] Comment on above: Performed By: #### Susie WAKEFIELD TSHR, 2132-03 #### [facility] ([id number]) [address], [address] [place] [address] VITAMIN B12on 09-06-2024 Cobalamin (Vitamin B12) [Mass/Vol] 547 pg/mL Normal 180-914 [facility] Comment on above: Performed By: #### Susie WAKEFIELD TSHR, 2132-03 #### [facility] ([id number]) [address], [address] [place] [address] COMPREHENSIVE METABOLIC PANE John Paul 06-25-2024 Albumin [Mass/Vol] 4.3 g/dL Normal 3.2-5.3 [facility] Comment on above: Performed By: #### C AGNIESZKA, 75713-7 #### [facility] ([id number]) [address], [address] [place] [address] ALP [Catalytic activity/Vol] 81 U/L Normal 39-130 [facility] Comment on above: Performed By: #### Susie AARON, 68396-0 #### [facility] ([id number]) [address], [address] [place] [address] ALT [Catalytic activity/Vol] 15 U/L Normal 0-40 [facility] Comment on above: Performed By: #### Susie AARON, 31952-9 #### [facility] ([id number]) [address], [address] [place] [address] Anion gap [Moles/Vol] 8 mmol/L Normal 5-15 [facility] Comment on above: Performed By: #### Susie AARON, 50258-7 #### [facility] ([id number]) [address], [address] [place] [address] AST [Catalytic activity/Vol] 19 U/L Normal 0-41 [facility] Comment on above: Performed By: #### Susie AARON, 41407-1 #### [facility] ([id number]) [address], [address] [place] [address] Bilirubin [Mass/Vol] 1.1 mg/dL Normal 0.3-1.2 [facility] Comment on above: Performed By: #### Susie AARON, 25874-3 #### [facility] ([id number]) [address], [address] [place] [address] Calcium [Mass/Vol] 9.1 mg/dL Normal 8.5-10.5 [facility] Comment on above: Performed By: #### Susie AARON, 68339-2 #### [facility] ([id number]) [address], [address] [place] [address] Chloride [Moles/Vol] 100 mmol/L Normal 98-109 [facility] Comment on above: Performed By: #### Susie AARON, 14390-9 #### [facility] ([id number]) [address], [address] [place] [address] CO2 [Moles/Vol] 26 mmol/L Normal 22-32 [facility] Comment on above: Performed By: #### Susie AARON, 89941-2 #### [facility] ([id number]) [address], [address] [place] [address] Creatinine [Mass/Vol] 0.66 mg/dL Normal 0.60-1.30 [facility] Comment on above: Result Comment: METH OD TRACEABLE TO IDMS STANDARD Performed By: #### Susie AARON, 00998-5 #### [facility] ([id number]) [address], [address] [place] [address] eGFR (CKD-EPI) NON-RACE DEPENDENT >90 Normal >59 [facility] Comment on above: Result Comment: Reported eGFR is based on the CKD-EPI 2020 equation that does not use a race coefficient. Performed By: #### Susie AARON, 20653-4 #### [facility] ([id number]) [address], [address] [place] [address] Glucose [Mass/Vol] 98 mg/dL Normal 65-99 [facility] Comment on above: Performed By: #### Susie AARON, 95715-0 #### [facility] ([id number]) [address], [address] [place] [address] Potassium [Moles/Vol] 5.0 mmol/L Normal 3.5-5.0 [facility] Comment on above: Performed By: #### Susie AARON, 10974-9 #### [facility] ([id number]) [address], [address] [place] [address] Protein [Mass/Vol] 7.6 g/dL Normal 6.0-8.0 [facility] Comment on above: Performed By: #### Susie AARON, 15755-2 #### [facility] ([id number]) [address], [address] [place] [address] Sodium [Moles/Vol] 134 mmol/L Normal 134-146 [facility] Comment on above: Performed By: #### Susie AARON, 99193-4 #### [facility] ([id number]) [address], [address] [place] [address] Urea nitrogen [Mass/Vol] 10 mg/dL Normal 5-27 [facility] Comment on above: Performed By: #### Susie AARON, 61918-7 #### [facility] ([id number]) [address], [address] [place] [address] Lipid 1996 panelon 4 Cholesterol [Mass/Vol] 74 mg/dL Low 150-200 [facility] Comment on above: Performed By: #### Susie AARON, 75323-7 #### [facility] ([id number]) [address], [address] [place] [address] Cholesterol in HDL [Mass/Vol] 18 mg/dL Low >39 [facility] Comment on above: Result Comment: HDL <40 mg/dL - High Risk HDL > or = 40mg/dL- Desirable HDL >60 mg/dL - Negative Risk Performed By: #### Susie AARON, 40712-4 #### [facility] ([id number]) [address] [address] [place] [address] Cholesterol in LDL [Mass/Vol] 43 mg/dL Normal <130 [facility] Comment on above: Result Comment: LDL <100 mg/dL - Desirable LDL >160 mg/dL - High Risk Performed By: #### Susie AARON, 86904-2 #### [facility] ([id number]) [address] [address] [place] [address] Cholesterol in VLDL [Mass/Vol] 13 mg/dL Normal 0-30 [facility] Comment on above: Performed By: #### Susie AARON, 01978-2 #### [facility] ([id number]) [address] [address] CHOLESTEROL:HDL 4.1 Normal 1.0-5.0 [facility] Comment on above: Performed By: #### Susie AARON, 80624-8 #### [facility] ([id number]) [address] [address] Triglyceride [Mass/Vol] 64 mg/dL Normal 27-150 P [facility] Comment on above: Performed By: #### Susie AARON, 25515-3 #### [facility] ([id number]) [address] [address] CBC (INCLUDES DIFF/PLT)on Basophils (Bld) [#/Vol] 0 10*3/uL Normal 0-200 [facility] Comment on above: Performed By: #### 6 399 #### [facility] [address] [facility], [address] [place] [address] Wool Sorter: Horace Vital MD Basophils/100 WBC (Bld) 0 % Normal [facility] Comment on above: Performed By: #### 6 399 #### [facility] [place] [address] Wool Sorter: Horace Vital MD COMMENT(S) Normal [facility] Comment on above: Result Comment: The smear has been manually reviewed and the manual differential has been reported. Performed By: #### 6 399 #### [facility] [place] [address] Wool Sorter: Horace Vital MD Eosinophils (Bld) [#/Vol] 0.132 10*3/uL Normal 15-500 [facility] Comment on above: Performed By: #### 6 399 #### [facility] [place] [address] Wool Sorter: Horace Vital MD Eosinophils/100 WBC (Bld) 3 % Normal [facility] Comment on above: Performed By: #### 6 399 #### [facility] [place] [address] Wool Sorter: Horace Vital MD Erythrocyte distribution width (RBC) [Ratio] 14.6 % Normal 11.0-15.0 [facility] Comment on above: Performed By: #### 6 399 #### [facility] [place] [address] Wool Sorter: Horace Vital MD Hematocrit (Bld) [Volume fraction] 40.2 % Normal 38.5-50.0 [facility] Comment on above: Performed By: #### 6 399 #### [facility] [place] [address] Wool Sorter: Horace Vital MD Hemoglobin (Bld) [Mass/Vol] 13.6 g/dL Normal 13.2-17.1 [facility] Comment on above: Performed By: #### 6 399 #### [facility] [place] [address] Wool Sorter: Horace Vital MD Lymphocytes (Bld) [#/Vol] 1.276 10*3/uL Normal 850-3900 [facility] Comment on above: Performed By: #### 6 399 #### [facility] [place] [address] Wool Sorter: Horace Vital MD Lymphocytes/100 WBC (Bld) 29 % Normal [facility] Comment on above: Performed By: #### 6 399 #### [facility] [place] [address] Wool Sorter: Horace Vital MD MCH (RBC) [Entitic mass] 32.7 pg Normal 27.0-33.0 [facility] Comment on above: Performed By: #### 6 399 #### [facility] [place] [address] Wool Sorter: Horace Vital MD MCHC (RBC) [Mass/Vol] 33.8 g/dL Normal 32.0-36.[address] [facility] Comment on above: Performed By: #### 6 399 #### [facility] [place] [address] Wool Sorter: Horace Vital MD MCV (RBC) [Entitic vol] 96.6 fL Normal 80.0-100.0 [facility] Comment on above: Performed By: #### 6 399 #### [facility] [place] [address] Wool Sorter: Horace Vital MD Monocytes (Bld) [#/Vol] 0.748 10*3/uL Normal 200-950 [facility] Comment on above: Performed By: #### 6 399 #### [facility] [place] [address] Wool Sorter: Horace Vital MD Monocytes/100 WBC (Bld) 17 % Normal [facility] Comment on above: Performed By: #### 6 399 #### [facility] [place] [address] Wool Sorter: Horace Vital MD Neutrophils (Bld) [#/Vol] 2.244 10*3/uL Normal 8868-5064 [facility] Comment on above: Performed By: #### 6 399 #### [facility] [place] [address] Wool Sorter: Horace Vital MD Neutrophils/100 WBC (Bld) 51 % Normal [facility] Comment on above: Performed By: #### 6 399 #### [facility] [place] [address] Wool Sorter: Horace Vital MD Platelet mean volume (Bld) [Entitic vol] 11.6 fL Normal 7.5-12.5 [facility] Comment on above: Performed By: #### 6 399 #### [facility] [place] [address] Wool Sorter: Horace Vital MD Platelets (Bld) [#/Vol] 230 10*3/uL Normal 140-400 [facility] Comment on above: Performed By: #### 6 399 #### [facility] [place] [address] Wool Sorter: Horace Vital MD RBC (Bld) [#/Vol] 4.16 10*6/uL Low 4.20-5.80 [facility] Comment on above: Performed By: #### 6 399 #### [facility] [place] [address] Wool Sorter: Horace Vital MD WBC (Bld) [#/Vol] 4.4 10*3/uL Normal 3.8-10.8 [facility] Comment on above: Performed By: #### 6 399 #### [facility] [place] [address] Wool Sorter: Horace Vital MD TIBIA FIBULA RIGHTon 12-14- 018 TIBIA FIBULA RIGHT [facility] [address] [place], [place] [address] P atient Name: PENNY ORDAZ : 1960Sex: MAge: Race: WhiteMRN: [id number]. Location: 84Patient Status: Date: 12/14/2017 9:00:00 AMCompleted Date: 12/14/2017 09:01 AMRequesting Provider: RASHEEDA GORDILLO Attending Provider: Report Copy To: Signs & Symptoms: M96.671 Fx tib/fib fol insrt ortho implnt/prosth/bone plt, right leg N93Qmhrydt: AthenaComments: , , Views (X-RAY, TIBIA AND FIBULA): AP, Lateral , , , Ordering Provider - RASHEEDA GORDILLO , Exam: TIBIA FIBULA RIGHTAccession #: [id number] ======TIBIA FIBULA RIGHT 12/14/2017 9:01 AM EDT [...] conspicuous Electronically signed by:Lauren Clemente. Transcribed by: [email or web address], User Resident: Electronically Signed by: LAUREN CLEMENTE @ 12/14/2017 12:06 PM Normal [facility] Comment on above: Order Comment: No: D o not add to previous draw ANKLE RIGHT 3 VWSon 10-20-19 18 ANKLE RIGHT 3 VWS [facility] [address] [place] [address] P atient Name: PENNY ORDAZ : 1960Sex: MAge: Race: WhiteMRN: [id number]. Location: 84Patient Status: Date: 10/19/2017 9:55:00 AMCompleted Date: 10/19/2017 10:07 AMRequesting Provider: RASHEEDA GORDILLO Attending Provider: Report Copy To: Signs & Symptoms: S82.391D Oth fx lower end of r tibia, subs for clos fx w routn heal N30Mrbytgw: AthenaComments: , , Views (X-RAY, ANKLE): AP, Lateral, Mortise , , , Ordering Provider - RASHEEDA GORDILLO , Exam: ANKLE RIGHT 3 VWSAccession #: [id number] ======ANKLE RIGHT 3 VWS, TIBIA FIBULA RIGHT [...] AP,Lateral and Oblique views were obtained. (accession [id number]), AP(PA) and Lateral views were obtained. (accession [id number]) COMPARISON: October 19, 2017 FINDINGS: Soft tissues:Unchanged Bones:Unchanged Joints:Unchanged IMPRESSION: Healing lower leg injury with jil fixing distal midshaft tibial fracture in good alignment and no hardware securing healing proximal fibular fracture Electronically signed by:Lauren Clemente. Transcribed by: [email or web address], User Resident: Electronically Signed by: LAUREN CLEMENTE @ 10/19/2017 10:33 AM Normal [facility] Comment on above: Order Comment: No: D o not add to previous draw TIBIA FIBULA RIGHTon 018 TIBIA FIBULA RIGHT [facility] [address] [place] [address] P atient Name: PENNY ORDAZ : 1960Sex: MAge: Race: WhiteMRN: [id number]. Location: 84Patient Status: Date: 10/19/2017 9:55:00 AMCompleted Date: 10/19/2017 10:07 AMRequesting Provider: RASHEEDA GORDILLO Attending Provider: Report Copy To: Signs & Symptoms: M96.671 Fx tib/fib fol insrt ortho implnt/prosth/bone plt, right leg O00Endhdnp: AthenaComments: , , Views (X-RAY, TIBIA AND FIBULA): AP, Lateral , , , Ordering Provider - RASHEEDA GORDILLO , Exam: TIBIA FIBULA RIGHTAccession #: [id number] ======ANKLE RIGHT 3 VWS, TIBIA FIBULA RIGHT [...] AP,Lateral and Oblique views were obtained. (accession [id number]), AP(PA) and Lateral views were obtained. (accession [id number]) COMPARISON: October 19, 2017 FINDINGS: Soft tissues:Unchanged Bones:Unchanged Joints:Unchanged IMPRESSION: Healing lower leg injury with jil fixing distal midshaft tibial fracture in good alignment and no hardware securing healing proximal fibular fracture Electronically signed by:Lauren Clemente. Transcribed by: [email or web address], User Resident: Electronically Signed by: LAUREN CLEMENTE @ 10/19/2017 10:33 AM Normal [facility] Comment on above: Order Comment: No: D o not add to previous draw ANKLE RIGHT 3 VWSon 08-31-19 18 ANKLE RIGHT 3 S [facility] [address] [place] [address] P atient Name: PENNY ORDAZ : 1960Sex: MAge: Race: WhiteMRN: [id number]. Location: 84Patient Status: Date: 08/31/2017 11:10:00 AMCompleted Date: 08/31/2017 11:32 AMRequesting Provider: RASHEEDA GORDILLO Attending Provider: Report Copy To: Signs & Symptoms: S82.391D Oth fx lower end of r tibia, subs for clos fx w routn heal W13Bpkmzkq: AthenaComments: , , , Ordering Provider - RASHEEDA GORDILLO , Exam: ANKLE RIGHT 3 VWSAccession #: [id number] ======TIBIA FIBULA RIGHT, ANKLE RIGHT 3 VWS [...] AP(PA) and Lateral views were obtained. (accession [id number]), AP,Lateral and Oblique views were obtained. (accession [id number]) COMPARISON: August 03, 2017 FINDINGS: Soft tissues:No [...] tibia Electronically signed by:Lauren Clemente. Transcribed by: [email or web address], User Resident: Electronically Signed by: LAUREN CLEMENTE @ 08/31/2017 11:37 AM Normal [facility] Comment on above: Order Comment: No: D o not add to previous draw TIBIA FIBULA RIGHTon 018 TIBIA FIBULA RIGHT [facility] [address] [place] [address] P atient Name: PENNY ORDAZ : 1960Sex: MAge: Race: WhiteMRN: [id number]. Location: 84Patient Status: Date: 08/31/2017 11:10:00 AMCompleted Date: 08/31/2017 11:32 AMRequesting Provider: RASHEEDA GORDILLO Attending Provider: Report Copy To: Signs & Symptoms: M96.671 Fx tib/fib fol insrt ortho implnt/prosth/bone plt, right leg X48Baoasvp: AthenaComments: , , Views (X-RAY, TIBIA AND FIBULA): AP, Lateral , , , Ordering Provider - RASHEEDA GORDILLO , Exam: TIBIA FIBULA RIGHTAccession #: [id number] ======TIBIA FIBULA RIGHT, ANKLE RIGHT 3 VWS [...] AP(PA) and Lateral views were obtained. (accession [id number]), AP,Lateral and Oblique views were obtained. (accession [id number]) COMPARISON: August 03, 2017 FINDINGS: Soft tissues:No [...] tibia Electronically signed by:Lauren Clemente. Transcribed by: [email or web address], User Resident: Electronically Signed by: LAUREN CLEMENTE @ 08/31/2017 11:37 AM Normal [facility] Comment on above: Order Comment: No: D o not add to previous draw TIBIA FIBULA RIGHTon 018 TIBIA FIBULA RIGHT [facility] [address] [place] [address] P atient Name: PENNY ORDAZ : 1960Sex: MAge: Race: WhiteMRN: [id number]. Location: 84Patient Status: Date: 08/03/2017 10:05:00 AMCompleted Date: 08/03/2017 10:04 AMRequesting Provider: RASHEEDA GORDILLO Attending Provider: Report Copy To: Signs & Symptoms: M96.671 Fx tib/fib fol insrt ortho implnt/prosth/bone plt, right leg W15Xmywaag: AthenaComments: , , Views (X-RAY, TIBIA AND FIBULA): AP, Lateral, Oblique , , , Ordering Provider - RASHEEDA GORDILLO , Exam: TIBIA FIBULA RIGHTAccession #: [id number] ======TIBIA FIBULA RIGHT 08/03/2017 10:04 AM EST [...] healing Electronically signed by:Lauren Clemente. Transcribed by: [email or web address], User Resident: Electronically Signed by: LAUREN CLEMENTE @ 08/03/2017 12:03 PM Normal [facility] Comment on above: Order Comment: No: D o not add to previous draw Discharge Summaryon 07-22-19 Discharge Summary MR#: [id number] Admitted: 07/14/2017 Discharged: [...] patient is 56-year-[facility], [facility] [...] was deemed ready for discharge on 07/16/2017 [facility].DISCHARGE DISPOSITION: Home.DISCHARGE CONDITION: Stable.DISCHARGE INSTRUCTIONS: The patient [...] Dict: 07/21/2017/09:05 Sherry/Romana Corrigan Trans: 07/22/2017 02:28 Sherry/Irwin_JN:[id number] cc: Dewey Ward M.D. [address], [address] [facility] [address] Normal [facility] ALBUMIN BLOODon 07-15-2017 Albumin 3.3 g/dL Low 3.5-5.7 [facility] Comment on above: Order Comment: No: D o not add to previous draw Performed By: #### 5 6101 ####[facility] [place], [place] [address] [place] [address] BASIC METABOLIC PANELon 12-2 Calcium 8.5 mg/dL Low 8.6-10.3 [facility] Comment on above: Order Comment: No: D o not add to previous draw Performed By: #### 5 6101 ####[facility] [place] [address], [facility] Chloride 104 mmol/L Normal 98-107 [facility] Comment on above: Order Comment: No: D o not add to previous draw Performed By: #### 5 6101 ####[facility] [place] [address], [facility] CO2 29 mmol/L Normal 21-31 [facility] Comment on above: Order Comment: No: D o not add to previous draw Performed By: #### 5 6101 ####[facility] [place] [address], [facility] Creatinine 0.66 mg/dL Low 0.70-1.30 [facility] Comment on above: Order Comment: No: D o not add to previous draw Performed By: #### 5 6101 ####[facility] eGFR (black) mL/min/{1.73_m2} Normal >60 [facility] Comment on above: Order Comment: No: D o not add to previous draw Performed By: #### 5 6101 ####[facility] [facility] eGFR (non-black) mL/min/{1.73_m2} Normal >60 Th e [facility] Comment on above: Order Comment: No: D o not add to previous draw Performed By: #### 5 6101 ####[facility] [facility] [place] [address], [facility] Glucose mass conc 89 mg/dL Normal 70-100 [facility] Comment on above: Order Comment: No: D o not add to previous draw Performed By: #### 5 6101 ####[facility] [facility] [place] [address], [facility] Potassium molar conc 4.3 mmol/L Normal 3.5-5.1 [facility] Comment on above: Order Comment: No: D o not add to previous draw Performed By: #### 5 6101 ####[facility] [place] [address], [facility] Sodium 137 mmol/L Normal 136-145 [facility] Comment on above: Order Comment: No: D o not add to previous draw Performed By: #### 5 6101 ####[facility] [facility].[address] Urea nitrogen 9 mg/dL Normal 7-25 [facility] Comment on above: Order Comment: No: D o not add to previous draw Performed By: #### 5 6101 ####[facility] [facility] CBC COMPLETE BLOOD COUNTon Erythrocyte distribution width Auto Ratio (RBC) 15.2 % Normal 11.5-16.9 [facility] Comment on above: Order Comment: No: D o not add to previous draw Performed By: #### 5 6101 ####[facility] [facility].[address] Erythrocytes (RBC) 3.00 mill/mm3 Low 4.30-5.90 [facility] Comment on above: Order Comment: No: D o not add to previous draw Performed By: #### 5 6101 ####[facility] [facility].[address] Hematocrit (HCT) 29.6 % Low 39.0-55.0 [facility] Comment on above: Order Comment: No: D o not add to previous draw Performed By: #### 5 6101 ####[facility] [facility].[address] Hemoglobin mass conc (Bld) 9.9 g/dL Low 13.9-16.3 [facility] Comment on above: Order Comment: No: D o not add to previous draw Performed By: #### 5 6101 ####[facility]3000 [facility].[address] MCH 33.0 pg High 24.0-32.0 [facility] Comment on above: Order Comment: No: D o not add to previous draw Performed By: #### 5 6101 ####[facility] [place] [address], [facility] MCHC mass conc (RBC) 33.4 g/dL Normal 32.0-36.0 [facility] Comment on above: Order Comment: No: D o not add to previous draw Performed By: #### 5 6101 ####[facility] MCV 98.8 fL Normal 80.0-100.0 [facility] Comment on above: Order Comment: No: D o not add to previous draw Performed By: #### 5 6101 ####[facility] PLAT CNT 138 Thou/mm3 Normal 100-400 [facility] Comment on above: Order Comment: No: D o not add to previous draw Performed By: #### 5 6101 ####[facility] WBC (Leukocytes) 8.6 Thou/mm3 Normal 4.0-10.0 [facility] Comment on above: Order Comment: No: D o not add to previous draw Performed By: #### 5 6101 ####[facility]3000 [facility].[address] Operative Reporton 12-29-201 7 Operative Report MR#: [id number] [facility] Ordaz Room #: 5AB [id number] Discharge Date: Birthdate: 1960 OPERATIVE REPORTDATE OF [...] a 56-year-old male, who is transferred from [facility] after sustaining a fall on the [...] reamed up to a 11.5 reamer withexcellent batres. I decided upon a 10 mm [...] 07/14/2017/02:49 P/Rasheeda Gordillo M.D.Date Trans: 07/14/2017 11:58 P/mmoDN_JN:[id number] cc: Dewey Ward M.D. [address] [place], [address] [place] [address] Normal [facility] PREALBUMINon 07-15-2017 Prealbumin 19.2 mg/dL Normal 17.0-34.0 [facility] Comment on above: Order Comment: No: D o not add to previous draw Performed By: #### 5 6101 ####[facility] [place] [address].[address] TRANSFERRINon 07-15-2017 Transferrin 235 mg/dL Normal 203-362 [facility] Comment on above: Order Comment: No: D o not add to previous draw Performed By: #### 5 6101 ####[facility] VITAMIN D 25-HYDROXYon 07-15 VITAMIN D 25-OH <13.0 Low 30.0-80.0 [facility] Comment on above: Result Comment: >80. 0 Toxicity possible Performed By: #### 5 6101 ####[address] LOWER EXTREMITY WO CON TRAST RIGHTon 07-14-[address] LOWER EXTREMITY WO CONTRAST RIGHT [facility] [address]jow[address]hp[address] [place] [address] P atient Name: PENNY ORDAZ : 1960Sex: MAge: Race: WhiteMRN: [id number]. Location: [id number] Status: IVisit #: [id number] Date: 07/14/2017 9:20:00 AMCompleted Date: 07/14/2017 11:03 AMRequesting Provider: RASHEEDA GORDILLO Attending Provider: REX HIGH Report Copy To: Signs & Symptoms: FractureHistory: Patient history not availableComments: R/O Fractures, Right ankle CT STAT without contrast to rule out posterior malleolus fracture. Patient scheduled for OR at 11 AM.Exam: 3D CT LOWER EXTREMITY WO CONTRAST RIGHTAccession #: [id number] ======3D CT LOWER EXTREMITY WO CONTRAST RIGHT [...] fracture Electronically signed by:Lauren Clemente. Transcribed by: [email or web address], User Resident: Electronically Signed by: LAUREN CLEMENTE @ 07/14/2017 11:41 AM Normal [facility] Comment on above: Order Comment: No: D o not add to previous draw ALCOHOLon 07-14-2017 Ethanol NONE DETECTED Normal [facility] Comment on above: Result Comment: Divi de by 1000 to convert mg/dL to percent. Example: 100mg/dL = 0.1%. Performed By: #### 2 0621 ####[facility] BASIC METABOLIC PANELon 06-18 Calcium 8.9 mg/dL Normal 8.6-10.3 [facility] Comment on above: Order Comment: No: D o not add to previous draw Performed By: #### 0 0071 ####[facility] Chloride 109 mmol/L High 98-107 [facility] Comment on above: Order Comment: No: D o not add to previous draw Performed By: #### 0 0071 ####[facility] CO2 23 mmol/L Normal 21-31 [facility] Comment on above: Order Comment: No: D o not add to previous draw Performed By: #### 0 0071 ####[facility] [place] [address], [facility] Creatinine 0.68 mg/dL Low 0.70-1.30 [facility] Comment on above: Order Comment: No: D o not add to previous draw Performed By: #### 0 0071 ####[facility] [place] [address], [facility] eGFR (black) mL/min/{1.73_m2} Normal >60 [facility] Comment on above: Order Comment: No: D o not add to previous draw Performed By: #### 0 0071 ####[facility]3000 [place] [address], [facility] eGFR (non-black) mL/min/{1.73_m2} Normal >60 Th e [facility] Comment on above: Order Comment: No: D o not add to previous draw Performed By: #### 0 0071 ####[facility]3000 [facility] [place] [address], [facility] Glucose mass conc 119 mg/dL High 70-100 [facility] Comment on above: Order Comment: No: D o not add to previous draw Performed By: #### 0 0071 ####[place] [address] [facility] [place] [address], [facility] Potassium molar conc 4.3 mmol/L Normal 3.5-5.1 [facility] Comment on above: Order Comment: No: D o not add to previous draw Performed By: #### 0 0071 ####[facility] [place] [address], [facility] Sodium 139 mmol/L Normal 136-145 [facility] Comment on above: Order Comment: No: D o not add to previous draw Performed By: #### 0 0071 ####[address] [place] [address], [facility] Urea nitrogen 11 mg/dL Normal 7-25 [facility] Comment on above: Order Comment: No: D o not add to previous draw Performed By: #### 0 0071 ####[facility]3000 [facility].[address] CBC COMPLETE BLOOD COUNTon 1 09-14-2016 Erythrocyte distribution width Auto Ratio (RBC) 14.9 % Normal 11.5-16.9 [facility] Comment on above: Order Comment: No: D o not add to previous draw Performed By: #### 5 0608 ####[facility] Erythrocytes (RBC) 3.66 mill/mm3 Low 4.30-5.90 [facility] Comment on above: Order Comment: No: D o not add to previous draw Performed By: #### 5 0608 ####[facility]3000 [facility].[address] Hematocrit (HCT) 35.6 % Low 39.0-55.0 [facility] Comment on above: Order Comment: No: D o not add to previous draw Performed By: #### 5 0608 ####[place] [address] [facility].[address] Hemoglobin mass conc (Bld) 12.2 g/dL Low 13.9-16.3 [facility] Comment on above: Order Comment: No: D o not add to previous draw Performed By: #### 5 0608 ####[facility] [place] [address].[address] MCH 33.3 pg High 24.0-32.0 [facility] Comment on above: Order Comment: No: D o not add to previous draw Performed By: #### 5 0608 ####[facility] [place] [address] MCHC mass conc (RBC) 34.2 g/dL Normal 32.0-36.0 [facility] Comment on above: Order Comment: No: D o not add to previous draw Performed By: #### 5 0608 ####[place] [address] [place] [address], [facility] MCV 97.3 fL Normal 80.0-100.0 [facility] Comment on above: Order Comment: No: D o not add to previous draw Performed By: #### 5 0608 ####[address] [place] [address], [facility] PLAT CNT 170 Thou/mm3 Normal 100-400 [facility] Comment on above: Order Comment: No: D o not add to previous draw Performed By: #### 5 0608 ####[address] WBC (Leukocytes) 9.4 Thou/mm3 Normal 4.0-10.0 [facility] Comment on above: Order Comment: No: D o not add to previous draw Performed By: #### 5 0608 ####[address] POC GLUCOSE LABon 07-14-2017 Glucose mass conc 115 mg/dL High 70-100 [facility] Comment on above: Performed By: #### 8 5499 ####[address] PORTABLE ANKLE RIGHT 2 [facility] 07-14-2017 PORTABLE ANKLE RIGHT 2 S [facility]Department [facility] [address]px[address] [place] [address] P atient Name: PENNY ORDAZ : 1960Sex: MAge: Race: WhiteMRN: [id number]. Location: [id number] Status: IVisit #: [id number] Date: 07/14/2017 3:15:00 PMCompleted Date: 07/14/2017 03:55 PMRequesting Provider: CORNELIA ROCA Attending Provider: REX HIGH Report Copy To: Signs & Symptoms: Post OPHistory: Patient history not availableComments: Hardware EvaluationExam: PORTABLE ANKLE RIGHT 2 VWSAccession #: [id number] ======PORTABLE ANKLE RIGHT 2 S 07/14/2017 3:55 PM EST SIGNS AND SYMPTOMS: [...] findings. Electronically signed by:Oscar Still. Transcribed by: [email or web address], User Resident: ADRIEL SYKESElectronically Signed by: OSCAR STILL @ 07/16/2017 01:33 AMI personally read this/these film(s) with this resident Normal [facility] Comment on above: Order Comment: No: D o not add to previous draw PORTABLE ANKLE RIGHT 2 S [facility] HospitalDepartment of [address]husv[address] [place] [address] P atient Name: PENNY ORDAZ : 1960Sex: MAge: Race: WhiteMRN: [id number]. 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 Transcribed by: [email or web address], User Resident: Electronically Signed by: LAUREN CLEMENTE @ 07/14/2017 08:06 AM Normal [facility] Comment on above: Order Comment: R/O F X PORTABLE KNEE RIGHT 2 VWSon 07-14-2017 PORTABLE KNEE RIGHT 2 VWS [facility]Department [facility] Fpmnpkjqz[address] [place] [address] P atient Name: PENNY ORDAZ : 1960Sex: MAge: Race: WhiteMRN: [id number]. 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 Transcribed by: [email or web address], User Resident: Electronically Signed by: LAUREN CLEMENTE @ 07/14/2017 08:06 AM Normal [facility] Comment on above: Order Comment: R/O F X PORTABLE TIBIA FIBULA RIGHTo n 07-14-2017 PORTABLE TIBIA FIBULA RIGHT [facility] [address]aivzd[address] [place] [address] P atient Name: PENNY ORDAZ : 1960Sex: MAge: Race: WhiteMRN: [id number]. Location: [id number] Status: IVisit #: [id number] Date: 07/14/2017 3:15:00 PMCompleted Date: 07/14/2017 03:55 PMRequesting Provider: CORNELIA ROCA Attending Provider: REX HIGH Report Copy To: Signs & Symptoms: Post OPHistory: Patient history not availableComments: Hardware EvaluationExam: PORTABLE TIBIA FIBULA RIGHTAccession #: [id number] ======PORTABLE TIBIA FIBULA RIGHT 07/14/2017 3:55 PM [...] findings. Electronically signed by:Oscar Still. Transcribed by: [email or web address], User Resident: ADRIEL SYKESElectronically Signed by: OSCAR STILL @ 07/16/2017 01:31 AMI personally read this/these film(s) with this resident Normal [facility] Comment on above: Order Comment: No: D o not add to previous draw PORTABLE TIBIA FIBULA RIGHT [facility] HospitalDepartment [facility] Sniziasct[address] [place] [address] P atient Name: PENNY ORDAZ : 1960Sex: MAge: Race: WhiteMRN: [id number]. 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 Transcribed by: [email or web address], User Resident: Electronically Signed by: LAUREN CLEMENTE @ 07/14/2017 08:06 AM Normal [facility] Comment on above: Order Comment: R/O F X PROTHROMBIN TIMEon 7 INR Coag RelTime (PPP) 1.06 {INR} Normal 0.91-1.16 Th e [facility] Comment on above: Order Comment: No: [...] OF ACTION, CLINICALEFFECTIVENESS, AND OPTIMAL THERAPEUTIC RANGE. [id number];108:231S-246S. Performed By: #### 5 6101 ####[facility]3000 [facility].[address] Prothrombin time (PT) Coag time (PPP) 13.8 s Normal 12.3-14.8 [facility] Comment on above: Order Comment: No: D o not add to previous draw Result Comment: ALL RESULTS MUST BE INTERPRETED WITH RESPECT TO BLOOD DRAWING ARTIFACTOR DILUTION ERROR OF ANTICOAGULANT AT THE TIME OF SAMPLING. Performed By: #### 5 6101 ####[facility] [facility] [place] [address], [facility] RBC'S 2 UNITSon 07-14-2017 CROSSMATCH INTERP 1 COMP Normal [facility] Comment on above: Performed By: #### 8 6002 ####[facility]3000 [place] [address], [facility] CROSSMATCH INTERP 2 COMP Normal [facility] Comment on above: Performed By: #### 8 6002 ####[facility] [place] [address], [facility] PRODUCT CODE 1 E0336 Normal [facility] Comment on above: Performed By: #### 8 6002 ####[facility] [facility] [place] [address], [facility] PRODUCT CODE 2 E0336 Normal [facility] Comment on above: Performed By: #### 8 6002 ####[facility]3000 [place] [address], [facility] PRODUCT STATUS 1 RE Normal [facility] Comment on above: Result Comment: Resu lt changed by IF on 07/18/2017 07:23. The previous value was XM. Performed By: #### 8 6002 ####[facility] [facility] [place] [address], [facility] PRODUCT STATUS 2 RE Normal [facility] Comment on above: Result Comment: Resu lt changed by IF on 07/18/2017 07:23. The previous value was XM. Performed By: #### 8 6002 ####[facility] [place] [address], [facility] UNIT ABO 1 A Normal [facility] Comment on above: Performed By: #### 8 6002 ####[facility]3000 [place] [address], [facility] UNIT ABO 2 A Normal [facility] Comment on above: Performed By: #### 8 6002 ####[facility]3000 [facility].[address] UNIT ID 1 [id number] Normal [facility] Comment on above: Performed By: #### 8 6002 ####[facility] [place] [address], [facility] UNIT ID 2 [id number] Normal [facility] Comment on above: Performed By: #### 8 6002 ####[facility] [place] [address], [facility] UNIT RH 1 Positive Normal [facility] Comment on above: Performed By: #### 8 6002 ####[facility] [place] [address], [facility] UNIT RH 2 Positive Normal [facility] Comment on above: Performed By: #### 8 6002 ####[address] [place] [address], [facility] TIBIA FIBULA RIGHTon 12-28-2 017 TIBIA FIBULA RIGHT [facility]Department of Hzx[address]ozbd[address] [place], [place] [address] P atient Name: PENNY ORDAZ : 1960Sex: MAge: Race: WhiteMRN: [id number]. Location: [id number] Status: IVisit #: [id number] Date: 07/14/2017 1:30:00 PMCompleted Date: 07/14/2017 02:20 PMRequesting Provider: RASHEEDA GORDILOL Attending Provider: REX HIGH Report Copy To: Signs & Symptoms: im rodding right tibiaHistory: im rodding right tibiaComments: im rodding right tibiaExam: TIBIA FIBULA RIGHTAccession #: [id number] ======TIBIA FIBULA RIGHT 07/14/2017 2:20 PM EST SIGNS AND SYMPTOMS: im rodding right tibia TECHNOLOGIST COMMENTS: intra-op right tibia jil, 2 minutes 40 seconds fluoro time, OR 5, Dr. Gordillo QUESTION FOR THE RADIOLOGIST: im rodding right tibia PROTOCOL: AP(PA) and Lateral views were obtained. COMPARISON: None FINDINGS: Soft tissues: Bones: Joints: IMPRESSION: Documentation Electronically signed by:Lauren Clemente. Transcribed by: [email or web address], User Resident: Electronically Signed by: LAUREN CLEMENTE @ 07/14/2017 02:53 PM Normal [facility] Comment on above: Order Comment: No: D o not add to previous draw TYPE AND SCREENon 07-14-2017 ABO INTERPRETATION A Normal [facility] Comment on above: Performed By: #### 6 2586 ####[facility] [place] [address], [facility] ANTIBODY SCREEN Negative Normal [facility] Comment on above: Performed By: #### 6 2586 ####[facility] [place] [address], [facility] RH INTERPRETATION Positive Normal [facility] Comment on above: Performed By: #### 6 2586 ####[facility] [place] [address], [facility] XR TIB-FIB RT 2Von 7 XR TIB-FIB RT 2V [address] [place] [address] Patient: PENNY ORDAZ Exam Date: 07/13/2017DOB: 1960 Gender:M : DR MELBA SANCHEZ . Admission #: [id number] : Order #: [id number] HERE TO VIEW EXAM RADIOLOGY REPORT PROCEDURE: [...] on 07/14/2017 at 07:55 Approved by: Kei Arerola M.D. on 07/14/2017 at 07:56 Normal [facility] Vital Signs Date Time Vital Sign Value Performing Clinician Facility 03-12-2025 10:49-0400 Body height 177.5 cm Ramo Taylor MD Work Phone: [facility] 03-12-2025 10:49-0400 Body mass index (BMI) [Ratio] 22.73 kg/m2 Ramo Taylor MD Work Phone: [facility] 03-12-2025 10:49-0400 Body temperature 97.81 [degF] Ramo Taylor MD Work Phone: [facility] 03-12-2025 10:49-0400 Body weight 71.62 kg Ramo Taylor MD Work Phone: [facility] 03-12-2025 10:49-0400 Diastolic blood pressure 55 mm[Hg] Ramo Taylor MD Work Phone: [facility] 03-12-2025 10:49-0400 Heart rate 87 /min Ramo Taylor MD Work Phone: [facility] 03-12-2025 10:49-0400 SaO2% (BldA) [Mass fraction] 100 % Ramo Taylor MD Work Phone: [facility] 03-12-2025 10:49-0400 Systolic blood pressure 120 mm[Hg] Ramo Taylor MD Work Phone: [facility] 03-07-2025 10:02-0400 Body height 175.3 cm [employer] DO Work Phone: [email or web address] 03-07-2025 10:02-0400 Body mass index (BMI) [Ratio] 23.23 kg/m2 Sand 9ng DO Work Phone: [email or web address] 03-07-2025 10:02-0400 Body temperature 97.9 [degF] Dewey Eunice Venturesng DO Work Phone: [email or web address] 03-07-2025 10:02-0400 Body weight 71.4 kg Sand 9ng DO Work Phone: [email or web address] 03-07-2025 10:02-0400 Diastolic blood pressure 48 mm[Hg] Sand 9ng DO Work Phone: [email or web address] 03-07-2025 10:02-0400 Heart rate 99 /min Sand 9ng DO Work Phone: [email or web address] 03-07-2025 10:02-0400 Respiratory rate 20 /min Dewey Reillyng DO Work Phone: [facility] 03-07-2025 10:02-0400 SaO2% (BldA) [Mass fraction] 100 % Dewey Reillyng DO Work Phone: [facility] 03-07-2025 10:02-0400 Systolic blood pressure 104 mm[Hg] Dewey Reillyng DO Work Phone: [facility] 02-20-2025 12:15-0400 Diastolic blood pressure 62 mm[Hg] Procedures [facility] 02-20-2025 12:15-0400 Heart rate 90 /min Mh Procedures [facility] 02-20-2025 12:15-0400 Respiratory rate 18 /min Mh Procedures [facility] 02-20-2025 12:15-0400 SaO2% (BldA) [Mass fraction] 99 % Mh Procedures [facility] 02-20-2025 12:15-0400 Systolic blood pressure 103 mm[Hg] Mh Procedures [facility] 02-20-2025 10:17-0400 Body temperature 97.81 [degF] Mh Procedures [facility] 02-05-2025 10:46-0400 Body mass index (BMI) [Ratio] 21.84 kg/m2 Ramo Taylor MD Work Phone: [facility] 02-05-2025 10:46-0400 Body temperature 98.01 [degF] Ramo Taylor MD Work Phone: [facility] 02-05-2025 10:46-0400 Body weight 68.81 kg Ramo Taylor MD Work Phone: [facility] 02-05-2025 10:46-0400 Diastolic blood pressure 49 mm[Hg] Ramo Taylor MD Work Phone: [facility] 02-05-2025 10:46-0400 Heart rate 80 /min Ramo Taylor MD Work Phone: [facility] 02-05-2025 10:46-0400 Respiratory rate 18 /min Ramo Taylor MD Work Phone: [facility] 02-05-2025 10:46-0400 SaO2% (BldA) [Mass fraction] 100 % Ramo Taylor MD Work Phone: [facility] 02-05-2025 10:46-0400 Systolic blood pressure 110 mm[Hg] Ramo Taylor MD Work Phone: [facility] 01-21-2025 09:49-0400 Body height 177.5 cm [facility] 01-21-2025 09:49-0400 Body mass index (BMI) [Ratio] 22.22 kg/m2 [facility] 01-21-2025 09:49-0400 Body temperature 97.39 [degF] [facility] 01-21-2025 09:49-0400 Body weight 70 kg [facility] 01-21-2025 09:49-0400 Diastolic blood pressure 47 mm[Hg] [facility] 01-21-2025 09:49-0400 Heart rate 82 /min [facility] 01-21-2025 09:49-0400 Respiratory rate 14 /min [facility] 01-21-2025 09:49-0400 SaO2% (BldA) [Mass fraction] 100 % [facility] 01-21-2025 09:49-0400 Systolic blood pressure 99 mm[Hg] [facility] 01-15-2025 11:19-0400 Body height 174 cm Ramo Taylor MD Work Phone: [facility] 01-15-2025 11:19-0400 Body mass index (BMI) [Ratio] 22.64 kg/m2 Ramo Taylor MD Work Phone: [facility] 01-15-2025 11:19-0400 Body temperature 97.5 [degF] Ramo Taylor MD Work Phone: [facility] 01-15-2025 11:19-0400 Body weight 68.54 kg Ramo Taylor MD Work Phone: [facility] 01-15-2025 11:19-0400 Diastolic blood pressure 47 mm[Hg] Ramo Taylor MD Work Phone: [facility] 01-15-2025 11:19-0400 Heart rate 91 /min Ramo Taylor MD Work Phone: [facility] 01-15-2025 11:19-0400 SaO2% (BldA) [Mass fraction] 98 % Ramo Taylor MD Work Phone: [facility] 01-15-2025 11:19-0400 Systolic blood pressure 100 mm[Hg] Ramo Taylor MD Work Phone: [facility] [employer] 12-05-2024 09:25-0400 Body height 175.3 cm Sand 9ng DO Work Phone: [email or web address] 12-05-2024 09:25-0400 Body mass index (BMI) [Ratio] 22.29 kg/m2 Dewey Eunice [employer]ng DO [facility] 12-05-2024 09:25-0400 Body temperature 97.59 [degF] Dewey CitizenNetlong DO Work Phone: [facility] 12-05-2024 09:25-0400 Body weight 68.49 kg Dewey CitizenNetlong DO Work Phone: [email or web address] 12-05-2024 09:25-0400 Diastolic blood pressure 50 mm[Hg] Dewey CitizenNetlong DO Work Phone: [email or web address] 12-05-2024 09:25-0400 Heart rate 87 /min Dewey Eunice [employer] DO Work Phone: [email or web address] 12-05-2024 09:25-0400 Respiratory rate 18 /min Dewey Eunice Venturesng DO Work Phone: [facility] [employer] [facility] 12-05-2024 09:25-0400 SaO2% (BldA) [Mass fraction] 98 % Dewey Furlong DO Work Phone: [facility] [employer] 12-05-2024 09:25-0400 Systolic blood pressure 118 mm[Hg] Dewey Furlong DO Work Phone: [facility] [employer] 11-01-2024 09:26-0400 Body height 175.3 cm Dewey Furlong DO Work Phone: [facility] [employer] 11-01-2024 09:26-0400 Body mass index (BMI) [Ratio] 23.26 kg/m2 Dewey Furlong DO Work Phone: [facility] [employer] [facility] 11-01-2024 09:26-0400 Body temperature 97.5 [degF] Dewey Myerslong DO Work Phone: [facility] [employer] [facility] 11-01-2024 09:26-0400 Body weight 71.49 kg Dewey Furlong DO Work Phone: [facility] [employer] 11-01-2024 09:26-0400 Diastolic blood pressure 52 mm[Hg] Dewey Furlong DO Work Phone: [facility] [employer] [facility] 11-01-2024 09:26-0400 Heart rate 91 /min Dewey Furlong DO Work Phone: [facility] [employer] [facility] 11-01-2024 09:26-0400 Respiratory rate 18 /min Dewey Furlong DO Work Phone: [facility] [employer] [facility] 11-01-2024 09:26-0400 SaO2% (BldA) [Mass fraction] 100 % Dewey Furlong DO Work Phone: [facility] [employer] [facility] 11-01-2024 09:26-0400 Systolic blood pressure 120 mm[Hg] Dewey Furlong DO Work Phone: [facility] [employer] [facility] 10-04-2024 10:30-0400 Body height 175.3 cm Keyur Stuart MD [facility]: [facility] 10-04-2024 10:30-0400 Body mass index (BMI) [Ratio] 23.2 kg/m2 Keyur Stuart MD Work Phone: [facility] 10-04-2024 10:30-0400 Body temperature 97.5 [degF] Keyur Stuart MD Work Phone[facility] 10-04-2024 10:30-0400 Body weight 71.31 kg Keyur Stuart MD Work [facility]: [facility] 10-04-2024 10:30-0400 Diastolic blood pressure 56 mm[Hg] Keyur Stuart MD Work Phone: [facility] 10-04-2024 10:30-0400 Heart rate 96 /min Keyur Stuart MD Work [facility] 10-04-2024 10:30-0400 Respiratory rate 16 /min Keyur Stuart MD Work Phone[facility] 10-04-2024 10:30-0400 SaO2% (BldA) [Mass fraction] 98 % Keyur Stuart MD Work Phone[facility] 10-04-2024 10:30-0400 Systolic blood pressure 127 mm[Hg] Keyur Stuart MD [facility] 09-21-2024 09:04-0500 Body height 175.3 cm Deweyvenkatesh Myerslong DO Work Phone: [email or web address] 09-21-2024 09:04-0500 Body mass index (BMI) [Ratio] 23.71 kg/m2 Dewey Furlong DO Work Phone: [facility] 09-21-2024 09:04-0500 Body temperature 97.39 [degF] Dewey Lucialong DO Work Phone[facility] 09-21-2024 09:04-0500 Body weight 72.85 kg Dewey Furlong DO Work Phone: [facility] [employer] [facility] 09-21-2024 09:04-0500 Diastolic blood pressure 50 mm[Hg] Dewey Furlong DO Work Phone: [facility] [employer] [facility] 09-21-2024 09:04-0500 Heart rate 101 /min Dewey Furlong DO Work Phone: [facility] 09-21-2024 09:04-0500 Respiratory rate 18 /min Dewey Furlong DO Work Phone: [facility] [employer] [facility] 09-21-2024 09:04-0500 SaO2% (BldA) [Mass fraction] 93 % Dewey Furlong DO Work Phone: [facility] [employer] [facility] 09-21-2024 09:04-0500 Systolic blood pressure 120 mm[Hg] Dewey Furlong DO Work Phone: [facility] 09-06-2024 10:29-0500 Body height 175.3 cm Dewey Furlong DO Work Phone: [facility] [employer] 09-06-2024 10:29-0500 Body mass index (BMI) [Ratio] 25.67 kg/m2 Dewey Furlong DO Work Phone: [facility] [employer] [facility] 09-06-2024 10:29-0500 Body temperature 97.5 [degF] Dewey Furlong DO Work Phone: [facility] [employer] [facility] 09-06-2024 10:29-0500 Body weight 78.83 kg Dewey Furlong DO Work Phone: [facility] 09-06-2024 10:29-0500 Diastolic blood pressure 60 mm[Hg] Dewey Furlong DO Work Phone: [facility] [employer] [facility] 09-06-2024 10:29-0500 Heart rate 85 /min Dewey Furlong DO Work Phone: [facility] [employer] [facility] 09-06-2024 10:29-0500 SaO2% (BldA) [Mass fraction] 96 % Dewey Furlong DO Work Phone: [facility] [employer] 09-06-2024 10:29-0500 Systolic blood pressure 110 mm[Hg] Dewey Furlong DO Work Phone: [facility] [employer] 06-25-2024 13:51-0500 Body height 175.3 cm Dewey Furlong DO Work Phone: [facility] [employer] [facility] 06-25-2024 13:51-0500 Body mass index (BMI) [Ratio] 24.04 kg/m2 Dewey Furlong DO Work Phone: [facility] [employer] [facility] 06-25-2024 13:51-0500 Body temperature 97.9 [degF] Dewey Furlong DO Work Phone: [facility] [employer] 06-25-2024 13:51-0500 Body weight 73.85 kg Dewey Furlong DO [facility] 06-25-2024 13:51-0500 Diastolic blood pressure 42 mm[Hg] Dewey Furlong DO Work Phone: [facility] [employer] [facility] 06-25-2024 13:51-0500 Heart rate 94 /min Dewey Furlong DO Work Phone: [facility] [employer] [facility] 06-25-2024 13:51-0500 Respiratory rate 18 /min Dewey Furlong DO Work Phone: [facility] [employer] 06-25-2024 13:51-0500 SaO2% (BldA) [Mass fraction] 95 % Dewey Furlong DO Work Phone: [facility] [employer] [facility] 06-25-2024 13:51-0500 Systolic blood pressure 102 mm[Hg] Dewey Furlong DO Work Phone: [facility] [employer] [facility] Encounters Encounter Date Encounter Type Care Provider Facility Start: 03-13-2025 End: 03-13-2025 Telephone encounter Willow Varun DIRECTOR OF RESPIRATORY THERAPY Work Phone: [facility] Comment on above: Encounter opened in error Start: 03-12-2025 End: 03-12-2025 Office outpatient visit 25 minutes Ramo Taylor MD Work Phone: [facility] Comment on above: Dx: Myelofibrosis (H CC) (Primary Dx) Start: 03-12-2025 End: 03-13-2025 Orders Only Magdalena Ramos PharmD Work Phone: [facility] Start: 03-07-2025 End: 03-07-2025 Office outpatient visit 15 minutes [facility] Work Phone: [facility] - [facility] Comment on above: Primary myelofibrosi s (CMS-HCC) (Primary Dx); Severe anemia Start: 03-07-2025 End: 03-07-2025 ambulatory [facility] Start: 03-05-2025 End: 03-05-2025 Telephone encounter Ramo Taylor MD Work Phone: [facility] Start: 02-26-2025 End: 02-27-2025 Telephone encounter Ramo Taylor MD Work Phone: [facility] Start: 02-20-2025 End: 02-20-2025 ambulatory UNKNOWN PROVIDER Facility:[facility] Start: 02-20-2025 End: 02-20-2025 Subsequent hospital visit by physician [facility] Procedures [facility] Comment on above: Pancytopenia; Myelofibrosis (HCC); MDS (myelodysplastic syndrome) (HCC) Start: 02-14-2025 End: 02-14-2025 Telephone encounter Juliette Schumacher RN Work Phone: [facility] Start: 02-12-2025 End: 02-12-2025 Orders Only Ramo Taylor MD Work Phone: [facility] Start: 02-11-2025 End: 02-11-2025 Telephone encounter Ramo Taylor MD Work Phone: [facility] Start: 02-05-2025 End: 02-05-2025 Office outpatient visit 25 minutes Ramo Taylor MD Work Phone: [facility] Comment on above: Dx: Pancytopenia (Pr imary Dx) Start: 02-05-2025 End: 02-05-2025 Orders Only Magdalena Ramos PharmD Work Phone: [facility] Start: 01-21-2025 End: 01-21-2025 ambulatory UNKNOWN PROVIDER Facility:[facility] Start: 01-21-2025 End: 01-21-2025 Subsequent hospital visit by physician Bone Marrow Biopsy [facility] Comment on above: Dx: Pancytopenia (Pr imary Dx) Start: 01-15-2025 End: 01-15-2025 Orders Only Magdalena Ralls PharmD Work Phone: [facility] Comment on above: Dx: Pancytopenia (Pr imary Dx) Start: 12-05-2024 End: 12-05-2024 Office outpatient visit 15 minutes Deweyvenkatesh Ward DO Work Phone: [facility] Comment on above: Pleural effusion, ri ght (Primary Dx); Primary myelofibrosis ([facility]) Start: 12-05-2024 End: 12-05-2024 ambulatory [facility] Start: 11-27-2024 End: 11-27-2024 Telephone encounter Ramo Taylor MD Work Phone: [facility] Start: 11-26-2024 End: 11-26-2024 Telephone encounter Ramo Taylor MD Work Phone: [facility] Start: 11-16-2024 End: 11-16-2024 Telephone encounter Ashley JIANG [facility] Pul[facility]Sleep [facility] Start: 11-01-2024 End: 11-01-2024 ambulatory DEWEY WARD [facility] Start: 11-01-2024 End: 11-01-2024 Office outpatient visit 15 minutes Dewey Ward DO Work Phone: [facility] Comment on above: Primary myelofibrosi s (CMS-HCC) (Primary Dx); Pleural effusion, right; Memory loss Start: 10-09-2024 End: 10-09-2024 ambulatory Dewey Ward DO Work Phone: [facility] Work Phone: Start: 10-09-2024 End: 10-09-2024 Departed Referred Dewey Ward DO Work Phone: [facility] Path Spec [facility] Start: 10-04-2024 End: 10-04-2024 Documentation procedure Misti Sung [facility] - Medical Oncology Start: 10-04-2024 End: 10-04-2024 Office outpatient visit 40 minutes Keyur Stuart MD Work Phone: [facility] - [facility] Oncology Comment on above: Primary myelofibrosi s (CMS-HCC) (Primary Dx); Severe anemia; Lymphadenopathy, inguinal; Splenomegaly Start: 10-04-2024 End: 10-04-2024 ambulatory KEYUR STUART [facility] Start: 10-01-2024 End: 10-01-2024 Orders Only Dewey Ward DO Work Phone: [facility] Comment on above: Severe anemia (Prima ry Dx) Start: 09-26-2024 Non-patient / Non-visit Dewey Reillyng DO Work Phone: [facility] Work Phone: Start: 09-26-2024 End: 09-26-2024 Patient encounter procedure Dewey Ward DO Work Phone: [facility] Work Phone: Start: 09-26-2024 End: 09-26-2024 ambulatory Dewey Ward DO Work Phone: [facility] Work Phone: Start: 09-21-2024 End: 09-21-2024 [facility] Start: 09-21-2024 End: 09-21-2024 Transitional care manage srvc 14 day discharge Dewey Ward DO Work Phone: [facility] Comment on above: Severe anemia (Prima ry Dx); Lymphadenopathy, inguinal; Ex-cigarette smoker; Hyperglycemia; Special screening for malignant neoplasm of colon Start: 09-21-2024 End: 09-21-2024 [facility] Start: 09-12-2024 End: 09-12-2024 Telephone encounter Guerline Cha CMA [facility] Start: 09-08-2024 End: 09-08-2024 Telephone encounter Latha boyd Comment on above: Consult (Right pleur al effusion concern for malignancy) Start: 09-08-2024 End: 09-12-2024 Evaluation and management of inpatient TAMELA Weaver CLAY [facility] Start: 09-07-2024 End: 09-08-2024 Emergency department patient visit GEREMIAS SOTO [facility] Start: 09-06-2024 End: 09-06-2024 [facility] Start: 09-06-2024 End: 09-06-2024 Telephone encounter Cherelle Hilledicsherry Call Richard boyd Comment on above: CRITICAL LAB Start: 09-06-2024 End: 09-06-2024 Office outpatient visit 25 minutes Dewey Ward DO Work Phone: [facility] Comment on above: Memory loss (Primary Dx); Hot flashes; Cigarette smoker Start: 09-06-2024 End: 09-06-2024 ambulatory [facility] Start: 07-23-2024 End: 07-23-2024 Telephone encounter Elisha Lewis [facility] Start: 06-29-2024 End: 06-29-2024 Orders Only Dewey Ward DO Work Phone: [facility] Start: 06-25-2024 End: 06-25-2024 ambulatory [facility] Start: 06-25-2024 End: 06-25-2024 Patient encounter procedure Dewey Ward DO Work Phone: [facility] Comment on above: Welcome to Medicare preventive visit (Primary Dx); Screening for depression; Screening for heart disease; Colon cancer screening declined; Prostate cancer screening declined Start: 06-25-2024 End: 06-25-2024 Patient encounter status Dewey Ward DO Work Phone: [facility] Work Phone: Start: 06-25-2024 End: 06-25-2024 ambulatory [facility] Start: 06-25-2024 Encounter for genera l adult medical examination without abnormal findings [facility] Start: 12-14-2017 End: 12-15-2017 Ambulatory [facility] Facility:[facility] Start: 10-19-2017 End: 10-20-2017 Ambulatory [facility] Facility:[facility] Start: 10-17-2017 End: 10-18-2017 Ambulatory [facility] Facility:[facility] Start: 08-31-2017 End: 09-01-2017 Ambulatory [facility] Facility:[facility] Start: 08-03-2017 End: 08-04-[address] [facility] Facility:[facility] Start: 07-14-2017 End: 07-16-2017 [facility] Start: 07-13-2017 End: 07-14-2017 Ambulatory [facility] Facility: Procedures Date Procedure Procedure Detail Performing Clinician Start: 03-07-2025 Adult depression screening assessment Dewey Ward DO Work Phone: Start: 02-12-2025 Diagnostic bone campos ow biopsies & aspirations Ramo Taylor MD Work Phone: Start: 12-05-2024 Adult depression screening assessment Dewey [...] INT FIX INTO R TIBIA, PERC APPROACH RAHSEEDA GORDILLO Start: 07-14-2017 REPOSITION RIGHT TIB IA WITH INTRAMED FIX, OPEN APPROACH RASHEEDA GORDILLO Start: 07-14-2017 REPOSITION RIGHT TIB IA, EXTERNAL APPROACH RASHEEDA GORDILLO Plan of Treatment Date Care Activity Detail Author Start: 2033 RSV vaccine (adult) (1 - 1-dose 75+ series) RSV vaccine (adult) (1 - 1-dose 75+ series) [facility] Start: 06-25-2029 Lipid panel Cholesterol [facility] Start: 01-20-2027 DTaP,Tdap and Td Vaccines (2 - Td or Tdap) DTaP,Tdap and Td Vaccines (2 - Td or Tdap) [facility] Start: 03-07-2026 Adult BMI Screening Adult BMI Screen ing [facility] Start: 03-07-2026 Depression Screening Depression Scre ening [facility] Start: 03-07-2026 Fall Risk Screening Fall Risk Screen ing [facility] Start: 03-07-2026 Tobacco Screening Tobacco Screening [facility] Start: 12-05-2025 Adult BMI Screening Adult BMI Screen ing [facility] Start: 12-05-2025 Depression Screening Depression Scre ening [facility] Start: 12-05-2025 Fall Risk Screening Fall Risk Screen ing [facility] Start: 12-05-2025 Tobacco Screening Tobacco Screening [facility] Start: 11-01-2025 Adult BMI Screening Adult BMI Screen ing [facility] Start: 11-01-2025 Depression Screening Depression Scre ening [facility] Start: 11-01-2025 Fall Risk Screening Fall Risk Screen ing [facility] Start: 11-01-2025 Tobacco Screening Tobacco Screening [facility] Start: 10-04-2025 Adult BMI Screening Adult BMI Screen ing [facility] Start: 10-04-2025 Tobacco Screening Tobacco Screening [facility] Start: 09-21-2025 Adult BMI Screening Adult BMI Screen ing [facility] Start: 09-21-2025 Depression Screening Depression Scre ening [facility] Start: 09-21-2025 Fall Risk Screening Fall Risk Screen ing [facility] Start: 09-21-2025 Tobacco Screening Tobacco Screening [facility] Start: 09-11-2025 Adult BMI Screening Adult BMI Screen ing [facility] Start: 09-10-2025 Tobacco Screening Tobacco Screening [facility] Start: 09-07-2025 Adult BMI Screening Adult BMI Screen ing [facility] Start: 09-06-2025 Depression Screening Depression Scre ening [facility] Start: 09-06-2025 Fall Risk Screening Fall Risk Screen ing [facility] Start: 09-06-2025 Tobacco Screening Tobacco Screening [facility] Start: 07-18-2025 Screening for malign ant neoplasm of colon [facility] Comment on above: Postponed from 10/06 (Patient Refused) Start: 07-08-2025 End: 07-08-2025 Patient encounter procedure 07/08/2025 9:00 AM EST Office Visit [facility] [address] [place] [address] Dewey Ward, [address], [facility] [place] [place] [address] [facility] Start: 06-25-2025 Adult BMI Screening Adult BMI Screen ing [facility] Start: 06-25-2025 Depression Screening Depression Scre ening [facility] Start: 06-25-2025 Fall Risk Screening Fall Risk Screen ing [facility] Start: 06-25-2025 Medicare Annual Well ness Visit Medicare Annual Wellness Visit [facility] Start: 06-25-2025 Tobacco Screening Tobacco Screening [facility] Start: 06-17-2025 Annual wellness visit Annual W ellness Visit ([id number]) [facility] Start: 04-17-2025 Influenza vaccination Influenza Vacc ine (#1) [facility] Start: 03-18-2025 Influenza vaccination P [facility] Start: 03-12-2025 End: 03-12-2025 Patient encounter procedure 03/12/2025 11:30 AM EDT Appointment [facility] [address] [place] [address] Ramo Taylor MD [address] [place] [address] [facility] Start: 03-07-2025 End: 03-07-2025 Patient encounter procedure 03/07/2025 10:00 AM EDT Office Visit [facility] [address] [place] [address] Dewey Ward, DO [address], [facility] [place] [address] [facility] Start: 02-20-2025 End: 02-20-2025 Patient encounter procedure 02/20/2025 11:00 AM EDT Appointment [facility] [address] [place] [address] [facility] [address] Start: 02-12-2025 End: 02-12-2026 CBC panel - Blood by Automated count COMPLETE BLOOD COUNT Lab STAT Abnormal findings on diagnostic imaging of other specified body structures Expected: 02/12/2025, Expires: 02/12/2026 [facility] Comment on above: Expected: 02/12/2025 , Expires: 02/12/2026 Start: 02-12-2025 End: 02-12-2026 CBC W Auto Differential panel - Blood COMPLETE BLOOD COUNT W/DIFF Lab STAT Pancytopenia Myelofibrosis (HCC) MDS (myelodysplastic syndrome) (HCC) Expected: 02/12/2025 (Approximate), Expires: 02/12/2026 [facility] Comment on above: Expected: 02/12/2025 (Approximate), Expires: 02/12/2026 Start: 02-12-2025 End: 02-12-2026 Unlisted chemistry procedure MISCELLANEOUS SEND OUT TEST Lab STAT Pancytopenia Myelofibrosis (HCC) MDS (myelodysplastic syndrome) (HCC) Expected: 02/12/2025 (Approximate), Expires: 02/12/2026 [facility] Comment on above: Expected: 02/12/2025 (Approximate), Expires: 02/12/2026 Start: 02-12-2025 End: 02-12-2026 XA INTERVENTIONAL RADIOLOGY PROCEDURE SERVICE XA INTERVENTIONAL RADIOLOGY PROCEDURE SERVICE Imaging Routine Pancytopenia Myelofibrosis (HCC) MDS (myelodysplastic syndrome) (HCC) Expected: 02/12/2025, Expires: 02/12/2026 [email or web address] Work Phone: Comment on above: Expected: 02/12/2025 , Expires: 02/12/2026 Start: 02-05-2025 End: 02-05-2025 Patient encounter procedure 02/05/2025 11:00 AM EDT Appointment [facility] [address] [place] [id number] Ramo Taylor MD [address] [place] [id number] [facility] Start: 01-21-2025 End: 01-21-2025 Patient encounter procedure 01/21/2025 10:00 AM EDT Appointment [facility] [address] [place] [id number] [facility] Start: 01-15-2025 End: 01-15-2025 Patient encounter procedure 01/15/2025 11:00 AM EDT Appointment [facility] [address] [place] [address] Ramo Taylor MD [address] [place] [address] [facility] Start: 01-03-2025 End: 01-03-2025 Patient encounter procedure 01/03/2025 11:00 AM EDT Office Visit [facility] [address] [place] [phone] Keyur Stuart MD [address] [facility] [address] [place] [id number] [facility] - Medical Oncology Start: 12-05-2024 Abdominal aortic aneurysm screening Abdominal Aortic Aneurysm (AAA) Screen [facility] [employer] [facility] Comment on above: Postponed from 10/06 (Patient Refused) Start: 12-05-2024 End: 12-05-2025 XR Chest PA and Lateral X-ray chest 2 views Imaging Routine Pleural effusion, right Expected: 12/05/2024, Expires: 12/05/2025 [facility] Work Phone: Comment on above: Expected: 12/05/2024 , Expires: 12/05/2025 Start: 12-05-2024 End: 12-05-2024 Patient encounter procedure 12/05/2024 9:30 AM EDT Office Visit [facility] [address] [place] [address] Dewey Ward, [address], [place] [address] [facility] Start: 11-01-2024 End: 04-17-2026 XR Chest PA and Lateral X-ray chest 2 views Imaging Routine Pleural effusion, right Expected: 11/01/2024, Expires: 11/01/2025 [facility] Work Phone: Comment on above: Expected: 11/01/2024 , Expires: 11/01/2025 Start: 10-25-2024 End: 10-25-2024 Patient encounter procedure 10/25/2024 2:00 PM EDT Office Visit [facility] [address] [place] [phone] Wen Hmapton, DO [address] [id number] [facility] Start: 10-15-2024 Influenza vaccination Influenza Vacc ine [facility] Comment on above: Postponed from 03/18 (Patient Refused) Start: 10-04-2024 End: 10-04-2024 Patient encounter procedure 10/04/2024 10:30 AM EDT Office Visit [facility] - Medical Oncology [address] [place] [phone] Keyur Stuart MD [address] [place] [address] [address] [place] [address] [phone] [facility] - Medical Oncology Start: 09-15-2024 Welcome to Medicare Visit (G0402) Welcome to Medicare Visit (G0402) [facility] Start: 09-06-2024 End: 09-06-2024 Patient encounter procedure 09/06/2024 10:30 AM EST Office Visit [facility] - Family Medicine [address] [place] [phone] Dewey Ward, DO [address] [place] [address] [facility] Start: 07-18-2024 Abdominal aortic aneurysm screening Abdominal Aortic Aneurysm (AAA) Screen [facility] Comment on above: Postponed from 10/06 (Patient Refused) Start: 07-18-2024 Administration of varicella zoster vaccine Zoster (Shingles) Vaccine (1 of 2) [facility] Comment on above: Postponed from 10/06 (Patient Refused) Start: 07-18-2024 Screening for malign ant neoplasm of colon Colon Cancer Screening 3 Year Cologuard [facility] Comment on above: Postponed from 10/06 (Patient Refused) Start: 03-18-2024 COVID-19 Vaccine ( season) COVID-19 Vaccine ( season) [facility] Start: 10-07-2023 Abdominal aortic aneurysm screening Abdominal Aortic Aneurysm (AAA) Screen [facility] Start: 2018 Hepatitis B (HBV) Vaccine (optional start 60+ years) Hepatitis B (HBV) Vaccine (optional start 60+ years) [facility] Start: 2018 RSV vaccine (adult) (1 - Risk 60-74 years 1-dose series) RSV vaccine (adult) (1 - Risk 60-74 years 1-dose series) [facility] Start: 2008 Administration of varicella zoster vaccine Zoster (Shingles) Vaccine (1 of 2) [facility] Start: 2008 Pneumococcal vaccination Pneum ococcal Vaccine(s) (50+ yrs) (1 of 1 - PCV) [facility] Start: 2008 Shingles (RZV) Vacci ne (1 of 2) Shingles (RZV) Vaccine (1 of 2) [facility] Start: 10-07-2003 Screening for malign ant neoplasm of colon [facility] Start: 1993 Lipid panel Cholesterol [facility] Start: 1977 Administration of varicella zoster vaccine Zoster (Shingles) Vaccine (1 of 2) [facility] Start: 1977 Hepatitis A (HAV) Vaccine (optional start 19+ years) Hepatitis A (HAV) Vaccine (optional start 19+ years) [facility] Start: 1977 Pneumococcal vaccination Pneum ococcal Vaccine(s) (50+ yrs) (1 of 2 - PCV) [facility] Start: 1977 Shingles (RZV) Vacci ne (1 of 2) Shingles (RZV) Vaccine (1 of 2) [facility] Start: 1976 Adult BMI Screening Adult BMI Screen ing [facility] Start: 1976 Hepatitis C screening Hepatitis C An tibody [facility] Start: 1976 [facility] Start: 1970 Tobacco Screening Tobacco Screening [facility] Start: 10-07-1963 COVID-19 Vaccine (#1) COVID-19 Vacci ne (#1) [facility] Start: 1958 Screening for malign ant neoplasm of colon Colonoscopy [facility] Start: 1958 Tobacco Counseling Tobacco Counselin g [facility] End: 09-21-2025 Basic metabolic 2000 panel - Serum or Plasma Basic Metabolic Panel Lab Routine Hyperglycemia 1 Occurrences starting 09/21/2024 until 09/21/2025 [facility] [employer] [facility] Comment on above: 1 Occurrences starti ng 09/21/2024 until 09/21/2025 Bone marrow sampling BONE MARROW BIOPSY Anatomic Pathology Routine Pancytopenia Ordered: 01/21/2025 [email or web address] Work Phone: Comment on above: Ordered: 01/21/2025 End: 09-06-2025 CBC panel - Blood by Automated count CBC without diff Lab Routine Memory loss Hot flashes 1 Occurrences starting 09/06/2024 until 09/06/2025 [facility] [employer] [facility] Comment on above: 1 Occurrences starti ng 09/06/2024 until 09/06/2025 End: 09-21-2025 CBC panel - Blood by Automated count CBC Lab Routine Severe anemia 1 Occurrences starting 09/21/2024 until 09/21/2025 [employer] Work Phone: Comment on above: 1 Occurrences starti ng 09/21/2024 until 09/21/2025 End: 10-04-2025 CBC W Auto Differential panel - Blood CBC with auto diff Lab Routine Primary myelofibrosis (CMS-HCC) 1 Occurrences starting 10/04/2024 until 10/04/2025 [employer] Work Phone: Comment on above: 1 Occurrences starti ng 10/04/2024 until 10/04/2025 End: 06-25-2025 Comprehensive metabolic 2000 panel - Serum or Plasma Comprehensive metabolic panel Lab Routine Screening for heart disease 1 Occurrences starting 06/25/2024 until 06/25/2025 [employer] Work Phone: Comment on above: 1 Occurrences starti ng 06/25/2024 until 06/25/2025 End: 02-20-2025 CT guidance for percutaneous biopsy of Bone [email or web address] Work Phone: Comment on above: 1 Occurrences starti ng 02/20/2025 until 02/20/2025 End: 09-06-2025 Cyanocobalamin vitamin b-12 Vitamin B12 Lab Routine Memory loss Hot flashes 1 Occurrences starting 09/06/2024 until 09/06/2025 [email or web address] Comment on above: 1 Occurrences starti ng 09/06/2024 until 09/06/2025 End: 10-04-2025 Erythropoietin (EPO), S Erythropoietin (EPO), S Lab Routine Primary myelofibrosis (CMS-HCC) 1 Occurrences starting 10/04/2024 until 10/04/2025 [email or web address] Comment on above: 1 Occurrences starti ng 10/04/2024 until 10/04/2025 End: 09-21-2025 Hemoglobin A1c/Hemoglobin.total in Blood Hemoglobin A1c Lab Routine Hyperglycemia 1 Occurrences starting 09/21/2024 until 09/21/2025 [email or web address] Comment on above: 1 Occurrences starti ng 09/21/2024 until 09/21/2025 End: 06-25-2025 Lipid panel Lipid panel Lab Routine Screening for heart disease 1 Occurrences starting 06/25/2024 until 06/25/2025 [email or web address] Comment on above: 1 Occurrences starti ng 06/25/2024 until 06/25/2025 End: 02-12-2026 Prothrombin time PROTHROMBIN TIME AND INR Lab STAT Pancytopenia Myelofibrosis (HCC) MDS (myelodysplastic syndrome) (HCC) Abnormal findings on diagnostic imaging of other specified body structures 1 Occurrences starting 02/12/2025 until 02/12/2026 [facility] Comment on above: 1 Occurrences starti ng 02/12/2025 until 02/12/2026 Surgical pathology procedure *SPECIMEN FOR SURGICAL PATHOLOGY Anatomic Pathology Routine Pancytopenia Myelofibrosis (HCC) 02/20/2025 12:23 PM EDT [email or web address] Work Phone: End: 09-06-2025 TSH with Reflex TSH with Reflex Lab Routine Memory loss Hot flashes 1 Occurrences starting 09/06/2024 until 09/06/2025 [facility] Work Phone: Comment on above: 1 Occurrences starti ng 09/06/2024 until 09/06/2025 Payers Date Payer Category Payer Self-pay 2024 Medicare (Managed Care) [employer] [id number] 2024 Unknown [id number] 2023 Medicare HMO [id number] 2023 Medicare [id number] 2012 Unknown [facility] [id number] 1959 Unknown [id number] 1958 Unknown [id number] 2.16.840.1.745585.3.579.2. 1285 1958 Unknown [id number] 2.16.840.1.150711.3.579.2. 128 1958 Unknown [id number] 2.16.840.1.665731.3.579.2. 1285 1958 Unknown [id number] 2.16.840.1.627793.3.579.2. 1285 1958 Unknown [id number] 2.16.840.1.344881.3.579.2. 1285 1958 Unknown [id number] 2.16840.1.845869.3.579.2. 1285 1958 Unknown [id number] 2.840.1.312385.3.579.2. 1285 1958 Unknown [id number] 2.16840.1.258572.3.579.2. 128 1958 Unknown [id number] 2.16840.1.545119.3.579.2. 1285 1958 Unknown [id number] 2.16.840.1.671457.3.579.2. 128 1958 Unknown [id number] 2.16840.1.792406.3.579.2. 128 1958 Unknown [id number] 2.16.840.1.695314.3.579.2. 128 1958 Unknown [id number] 2.16.840.1.258895.3.579.2. 1958 Unknown [id number] 2.16.840.1.148918.3.579.2. 73 1958 Unknown [id number] 2.16840.1.685781.3.579.2. 2 1958 Unknown [id number] 2.840.1.286371.3.579.2. 732 1958 Unknown [id number] 2.0.1.594116.3.579.2. 732 Unknown [id number] 2.840.1.830270.3.579.2. 531 Unknown [id number] 2.840.1.199274.3.579.2. 531 Social History Date Type Detail Facility Start: 06-25-1979 Tobacco smoking status NHIS Smokes tobacco daily [facility] Start: 06-25-1979 End: 09-02-2024 History of tobacco use Cigarette Smoker [facility] Start: 06-25-2024 End: 03-07-2025 Cigarettes smoked current (pack per day) - Reported 1 [facility] Start: 06-25-2024 End: 09-08-2024 Tobacco use and exposure Smokeless tobacco non-user [facility] Start: 06-26-2024 End: 03-07-2025 Alcoholic beverage intake Current drinker of alcohol (finding) [facility] Start: 06-25-2024 End: 03-07-2025 [facility] [employer] [facility] Has the [employer], [employer], [employer] or water [employer] threatened to shut off services in your home in past 12Mo No [facility] Do you belong to any clubs or organizations such as buddhism groups, unions, fraternal or athletic groups, or school groups? Yes [facility] Are you now , , , , never or living with a partner? [facility] How often to you hav e a drink containing alcohol? 4 or more times a week [facility] How many standard dr inks containing alcohol do you have on a typical day? 3 or 4 [facility] How often do you hav e 6 or more drinks on 1 occasion? Never [facility] How hard is it for y ou to pay for the very basics like food, housing, medical care, and heating Not hard at all [facility] Do you feel stress - tense, restless, nervous, or anxious, or unable to sleep at night because your mind is troubled all the time - these days [OSQ] Not at all [employer] Start: 06-25-2024 Alcohol Comment 4 or 5 a night [facility] Start: 1960 Sex assigned at Not on file [facility] Start: 02-20-2015 End: 11-23-2024 Sex Male (finding) [facility] Start: 09-08-2024 Tobacco smoking status NHIS Ex-smoker [facility] Start: 06-25-1979 End: 09-02-2024 History of tobacco use [facility] Tobacco smoking stat [facility] Unknown if ever smoked [facility] Start: 1960 Sex Assigned At Male [facility] Start: 12-05-2024 Alcohol Comment 1 a night [facility] How many standard dr inks containing alcohol do you have on a typical day? 1 or 2 [facility] Goals Date Patient Goal Desired Activity /State Personal health goal Comment on above: Formatting of this n ote might be different from the original. Evaluation of progress towards goal: Current Discharge Plan; home with spouse, self care, denies needs at this time. Functional Status Date Assessment Result Facility 03-07-2025 Total score [AUDIT-C] 4 03/07/20 25 11:44 AM EDT Dewey Ward, DO [facility] [employer] [facility] Clinical Notes 06-25-2024 to 03-13-2025 Willow Bond LSW - 03/13/2025 8:18 AM EDTTelephone Encounter - Willow Bond LSW - 03/13/2025 8:16 AM EDTTelephone Encounter - Willow Bond LSW - 03/13/2025 8:16 AM EDTPatient Instructions Note Date & Type Note Facility 03-13-2025 History of Present illness Narrative SW [facility] , [facility] Pt met with Dr. Craig but due to the distance between his home and , Pt will seek treatment at . MK educated Pt on emotional support services available through [facility] and explained that services can be accessed virtually and that [facility] can also direct them to services in their area. Pt accepted the referral to [facility]. SW submitted [facility] referral through [facility]. Willow Bond TIE SAWYER, DIRECTOR OF RESPIRATORY THERAPY [id number] documented in this encounter [facility] 03-13-2025 Telephone encounter Note Opened in error Willow Bond TIE SAWYER, DIRECTOR OF RESPIRATORY THERAPY [id number] [facility] 03-13-2025 Miscellaneous Notes Opened in error Willow Bond TIE SAWYER, DIRECTOR OF RESPIRATORY THERAPY [id number] documented in this encounter [facility] 03-12-2025 History of Present illness Narrative Images from the original note were not included. HEMATOLOGY AND MEDICAL ONCOLOGY [facility] Patient ID: Name: Penny Ordaz Encounter Date: 03/12/2025 PCP: No primary [...] THERAPY Current therapy has been given at [facility] per Dr. Martita Hopper MD PROCRIT 60.000 units once a week Luspatercept OJJAARA (Momelotinib) CURRENT ONCOLOGICAL PROBLEMS Weight loss: No, how many pounds: 15 Lbs, time frame weight loss: 2 months. Fever: No Chills: YES B-Symptoms: No Bone pain: No Lytic lesions: No Abdominal distention: No Nausea/Vomiting: No HISTORY OF PRESENT ILLNESS Penny Ordaz is a 64 year old male with a medical history that includes generalized anxiety, hyperlipidemia, psoriasis, and severe seborrheic dermatitis, initially presented to [facility] on September 08, 2024. He reported experiencing fatigue, [...] October 2024, the patient was evaluated at [facility] due to severe anemia once again. He was transfused with two additional units of RBCs and [...] most recent transfusion occurring this morning at [facility], where a hemoglobin level of 6.5 [...] a new BONE MARROW BIOPSY here at [facility] on 01/21/2025, and the results are [...] a diagnosis of primary myelofibrosis, fibrotic phase. PAST MEDICAL HISTORY Psoriasis Seborrheic dermatitis Anxiety Hyperlipidemia PAST SURGICAL HISTORY Surgical History[1] FAMILY HISTORY Brother with diabetes Sister with diabetes Mother with cervical CA SOCIAL HISTORY Heavy smoker for more than 40 years a pack daily Quit smoking in Aug 2024 CURRENT MEDS PROCRIT 60.000 units once a week Luspatercept OJJAARA (Momelotinib) ALLERGIES Patient has no allergy information on record. Subjective Feeling well after transfusion of RBCs No major side effects of the current therapy Objective Vitals: 03/12/25 1049 BP: 120/55 Pulse: 87 Temp: 97.8 F (36.6 C) SpO2: 100% Vital Signs: height is 5' 9.88 (1.775 m) and weight is 157 lb 14.4 oz (71.6 kg). His oral temperature is 97.8 F (36.6 C). His blood pressure is 120/55 and his [...] 100 [facility] CBC on 03/12/2025 at [facility] WBC 8.2 Hgb 7.1 PLTs 269 Chemistry [...] neutrophils 3.07, lymphocytes 1.32, eosinophils 0.05, basophils 0.05, PLTs 143. Creatinine 0.92, calcium 9, electrolytes wnl. Surgical pathology Bone Marrow Biopsy Collected 12/25/2024, final report 01/01/2025 02/20/2025 NEW BMBx *SPECIMEN FOR SURGICAL PATHOLOGY: [id number] Order: [id number] Collected 02/20/2025 12:23 Status: Final result Dx: Myelofibrosis (HCC); Pancytopenia Test Result Released: No ([facility] Result Notes Component Case Report Surgical Pathology Report Case: [id number] Authorizing Provider: Anne Ha MD Collected: 02/20/2025 1223 Ordering Location: [facility] Radiology CT Received: 02/20/2025 1340 Pathologist: Isacc Del Rosario MD Specimen: Bone marrow, Right iliac Final [...] is hemodilute and unlikely to be fully farm loan representative of the marrow. The core biopsy [...] CD34 immunohistochemistry, blasts do not appear to be increased [...] atrophic and chronic microvascular ischemic changes. Assessment/Plan Penny Ordaz is a 64 year old male [...] Dr. Hopper. A recent bone marrow biopsy indicates a likely diagnosis of Myelofibrosis, with identified JAK2 V617F and TET2 mutations. The patient was referred to our institution by Dr. Martita Hopper for the establishment of care and consideration of a potential bone marrow transplant. Also, the patient has recently been initiated on Momelotinib. The patient underwent a new BONE MARROW BIOPSY here at [facility] on 01/21/2025, and the results are [...] up with his oncologist Dr. Hopper at [facility] We communicate with Dr. Hopper office to give him updates. Standing blood work orders will be placed in our system. Refer to evaluate the possibility of Allo SCT. Rationale: The only curative therapy for his disease can be an Allo SCT, as our institution specializes in Autologous Stem Cell Transplants and not on Allotransplants, we must send referral to or [facility] to get the transplant done in one of those institutions. RTC as needed. For now follow up with his Oncologists at [place] and plan for transplant at the or [facility]. 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 Patient seen and assessed with Dr. Korey Bueno MD. The patient and family's questions, doubts, and concerns were addressed and resolved apropriately. A thorough and detailed explanation of the patient's case was provided. The patient and family members ( and engeih-ea-efr presented in the office) demonstrated an understanding of the information and agreed with the plan. Ramo Mckinnon MD Hematology and Medical Oncology Fellow [phone] [1] No past surgical history on file. Cosigned by Korey Bueno MD at 03/12/2025 2:52 PM EDT Associated attestation - Korey Bueno MD - 03/12/2025 2:52 PM EDT Attending Physician Attestation: I saw and evaluated the patient. I personally obtained the schwartz and critical portions of the history and physical exam. I reviewed the Fellow's documentation and discussed the patient as a team. I agree with the Fellow's medical decision making as documented in the note. Additional Note: Korey Bueno MD 03/12/2025 documented in this encounter [facility] 03-07-2025 History of Present illness Narrative Subjective Patient ID: Penny Ordaz is a 64 y.o. male. Keron presents today for recheck of several problems. He is seeing the oncologist and has been going up to [facility] for a bone marrow biopsy recently. He was told that it is a bone marrow issue. They are going to follow up with him next week and he may undergo a bone marrow transplant. He would like to hold off on the gastroenterology referral for now until this issue settles down. He is not having any GI issues. [...] normal. Assessment/Plan Penny was seen today for 3 month visit. Diagnoses and all orders for this visit: Primary myelofibrosis (CMS-HCC) Recent bone marrow biopsy was reviewed and discussed with the patient. Follow up with specialist as directed Severe anemia Seems to be stable. He [...] in the morning. documented in this encounter [facility] [employer] 03-05-2025 Telephone encounter Note PT Called to confirm appt 03/12 also asked for a call back about Bone Valdez results AM. [facility] 03-05-2025 Miscellaneous Notes PT Called to confirm appt 03/12 also asked for a call back about Bone Valdez results AM. documented in this encounter [facility] 02-26-2025 Telephone encounter Note Akilah Glez office called [facility] 02-26-2025 Miscellaneous Notes Akilah from DR Glez office called documented in this encounter [facility] 02-22-2025 Note EXAMINATION: CT BIOP SY BONE (MONIQUE) 02/20/2025 11:36 AM CLINICAL HISTORY: [...] SEDATION TIME: Start time: 1102 Stop time: 1122 INFORMED CONSENT: Written informed consent was obtained. [...] images and agree with the resident's interpretation. [facility] Hospital Discharge instructions Radha Garner RN - 02/20/2025 11:43 AM EDT Bone Marrow Biopsy Discharge Instructions Why is this procedure done? Blood cells are made in the inside of bones. This area is called the bone marrow. The doctor may take a sample of liquid bone marrow with a needle. This is a bone marrow aspiration. Other times the doctor may take a piece of solid tissue which is a bone marrow biopsy. The liquid sample looks like blood and is sent to the lab for testing. The solid tissue is sent to the pathology lab. Bone marrow is most often taken from the hip bone. A bone marrow biopsy is done to: See how your bone marrow is working if your blood counts are not normal Learn more about why you are feeling sick See if a drug you are taking for a blood disease, such as leukemia, is working See if you are a match for someone who needs a transplant Look for cancers that affect the bone marrow Find out if cancer or infection has spread to your bones Care of Biopsy Site: You may remove the dressing covering your biopsy puncture site tomorrow. Clean your procedure site daily with soapy and water and cover with a band-aide for two days. After two days you may leave the site open to air. Problems to watch for: Increased pain that you cannot tolerate at the biopsy site with mnvb-jie-gnejllw medications such as Tylenol or Ibuprofen. Increased pain in your stomach or back that you cannot tolerate at the biopsy site with uixb-bjg-efuzphx medications such as Tylenol or Ibuprofen. Dizziness, lightheaded or rapid heartbeat. Skin appearing pale, cold and sweating. These include a fever of 100.4 F (38 C) or higher, chills. Signs of wound infection. These include swelling, redness, warmth around the wound; too much pain when touched; yellowish, greenish, or bloody discharge; foul smell coming from the cut site; cut site opens. Follow Up Care: Your biopsy results will go to the doctor who ordered your biopsy. These results take approximately 3-5 business days. If you have not heard from your doctor in that time, please call their office. Additional Information For questions or concerns during regular business hours call the Radiology Department at and press option 3. A radiology nurse will call you the next business day after your procedure. If additional emergency health advice or information is required, please call [phone], available 07/02. Moderate Sedation WHAT YOU SHOULD KNOW: Moderate sedation can be used during procedures or surgeries to help you feel relaxed and calm. Moderate sedation used to be called conscious sedation. With moderate sedation, you stay awake during the procedure or surgery, and your breathing and heart rate do not change. You are able to follow commands and answer questions during the procedure. Procedural sedation is when medicine is given to make you better able to cope with procedures that may be uncomfortable. Moderate sedation can be used for surgeries such as collecting tissue or fluid samples, or repairing a broken bone. It can be used for cleaning and repairing wounds, or for certain kinds of brain surgery. It can be used for procedures such as a bronchoscopy, colonoscopy, or thoracoscopy. It may also be used for certain heart treatments or dental work. Having moderate sedation will help decrease your anxiety (worry) about your procedure. It will also keep you comfortable and calm while having your procedure. AFTER YOU LEAVE: Take your medicine as directed: Call your primary healthcare provider if you think your medicine is not working as expected. Tell him if you are allergic to any medicine. Keep a current list of the medicines, vitamins, and herbs you take. Include the amounts, and when, how, and why you take them. Take the list or the pill bottles to follow-up visits. Carry your medicine list with you in case of an emergency. Throw away old medicine lists. Ask for information about where and when to go for follow-up visits: For continuing care, treatments, or home services, ask for more information. Medicines given for moderate sedation: Medicines that are given for moderate sedation may be given as a pill, shot, or through your anus. Medicine may also be breathed into your lungs, or given through an intravenous (IV) tube. An IV is a tube that is placed in your vein. You may be given one or more of the following medicines: Anesthesia: This is medicine that will help you feel more comfortable during surgery. Antianxiety medicine: This medicine may be given to decrease anxiety and help you feel calm and relaxed. Narcotics: This group of medicines may be given for pain during or after a procedure. Sedative: This medicine is given to help you stay calm and relaxed. Risks of moderate sedation: The medicine used for moderate sedation may cause you to get a headache or an upset stomach. The medicine might make forget things that have happened recently. The medicine may make your skin itchy, your eyes water, or they may increase your saliva (spit). Having too little medicine will make you uneasy and feel pain during the procedure. You may also feel like moving when you need to hold still. If the medicine does not wear off in a certain time, you may be given medicine to help you become more alert. If you get more medicine than you need, you may go into a deeper level of sedation. With deep sedation, you may need help breathing, and your blood pressure may decrease. Ask caregivers for more information about deep sedation. If you have heart or lung disease, or you have a head injury, you are at a higher risk having problems. These problems can happen during or after you get moderate sedation. Older adults, people who use illegal (street) drugs, or those who drink too much alcohol too often are at a greater risk of having problems. Alcohol is found in adult drinks such as beer, wine and whiskey. Ask your caregiver if you have questions or concerns about having moderate sedation. What to do when you go home after having moderate sedation: Do not drive a car or use heavy equipment. An adult should drive you home and stay with you after you have had moderate sedation. Follow your caregiver's advice about making changes to your diet, activity, or medicine. Avoid hard exercise right after having moderate sedation. Do not drink alcohol, such as beer and wine. Do not make important decisions for 24 hours (one day) after having moderate sedation. Take antinausea medicine as ordered. This medicine may be given to calm your stomach and help stop you from throwing up. Pain medicine may upset your stomach and make you feel like vomiting. To help prevent this, pain medicine and anti-nausea medicine are often given at the same time. Use ice chips. You may suck or chew small pieces of ice to if you feel like you need to cough. Use lip balm. Put lip balm on your lips to keep them moist, and help prevent them from chapping. CONTACT A CAREGIVER IF: You have a fever. You have a cough or headache. You have an upset stomach or feel like throwing up. You have questions or concerns about your condition, medicine, or care. SEEK CARE IMMEDIATELY IF: You have sudden trouble breathing. You have a very bad headache. Copyright 2010. [employer]. All rights reserved. Information is for End User's use only and may not be sold, redistributed or otherwise used for commercial purposes. The above information is an unit aide only. It is not intended as medical advice for individual conditions or treatments. Talk to your doctor, nurse or pharmacist before following any medical regimen to see if it is safe and effective for you. documented in this encounter [facility] 02-20-2025 Note POST-PROCEDURE NOTE Procedure: CT guided bone marrow biopsy and aspiration Pre-operative Diagnosis: Myelofibrosis Post-operative Diagnosis: Myelofibrosis Attending: Anne Ha MD Informatics Educator: Frankie Wayne MD A TIME OUT was performed prior to the procedure using active communication to verify correct patient, procedure, and site: Yes Intraoperative Medications: Medications Medication Event Details Admin User Admin Time midazolam (VERSED) 2 MG/2ML injection Medication Given Dose: 0.5 mg; Route: Intravenous Mariajose Bruce RN 02/20/2025 11:03 AM fentaNYL (SUBLIMAZE) 100 MCG/2ML injection Medication Given Dose: 50 mcg; Route: Intravenous Mariajose Bruce RN 02/20/2025 11:03 AM fentaNYL (SUBLIMAZE) 100 MCG/2ML injection Medication Given Dose: 50 mcg; Route: Intravenous Mariajose Bruce RN 02/20/2025 11:14 AM Complications: None Specimens: Grossly a dry tap. 3 samples and bone marrow biopsy Estimated Blood Loss: None Post Procedure Pain Ratin/10 Findings: Successful bone marrow biopsy and aspiration. Please see procedure dictation in EPIC/PACS for full procedural details. Frankie Wayne MD Radiology [facility] 02-20-2025 Surgery Postoperative evaluation and management note POST-PROCEDURE NOTE Procedure: CT guided bone marrow biopsy and aspiration Pre-operative Diagnosis: Myelofibrosis Post-operative Diagnosis: Myelofibrosis Attending: Anne Ha MD Informatics Educator: Frankie Wayne MD A TIME OUT was performed prior to the procedure using active communication to verify correct patient, procedure, and site: Yes Intraoperative Medications: Medications Medication Event Details Admin User Admin Time midazolam (VERSED) 2 MG/2ML injection Medication Given Dose: 0.5 mg; Route: Intravenous Mariajose Bruce RN 02/20/2025 11:03 AM fentaNYL (SUBLIMAZE) 100 MCG/2ML injection Medication Given Dose: 50 mcg; Route: Intravenous Mariajose Bruce RN 02/20/2025 11:03 AM fentaNYL (SUBLIMAZE) 100 MCG/2ML injection Medication Given Dose: 50 mcg; Route: Intravenous Mariajose Bruce RN 02/20/2025 11:14 AM Complications: None Specimens: Grossly a dry tap. 3 samples and bone marrow biopsy Estimated Blood Loss: None Post Procedure Pain Ratin/10 Findings: Successful bone marrow biopsy and aspiration. Please see procedure dictation in EPIC/PACS for full procedural details. Fraknie Wayne MD Radiology Cosigned by Anne Ha MD at 02/20/2025 12:58 PM EDT [facility] 02-20-2025 Miscellaneous Notes POST-PROCEDURE NOTE Procedure: CT guided bone marrow biopsy and aspiration Pre-operative Diagnosis: Myelofibrosis Post-operative Diagnosis: Myelofibrosis Attending: Anne Ha MD Informatics Educator: Frankie Wayne MD A TIME OUT was performed prior to the procedure using active communication to verify correct patient, procedure, and site: Yes Intraoperative Medications: Medications Medication Event Details Admin User Admin Time midazolam (VERSED) 2 MG/2ML injection Medication Given Dose: 0.5 mg; Route: Intravenous Mariajose Bruce RN 02/20/2025 11:03 AM fentaNYL (SUBLIMAZE) 100 MCG/2ML injection Medication Given Dose: 50 mcg; Route: Intravenous Mariajose Bruce RN 02/20/2025 11:03 AM fentaNYL (SUBLIMAZE) 100 MCG/2ML injection Medication Given Dose: 50 mcg; Route: Intravenous Mariajose Bruce RN 02/20/2025 11:14 AM Complications: None Specimens: Grossly a dry tap. 3 samples and bone marrow biopsy Estimated Blood Loss: None Post Procedure Pain Ratin/10 Findings: Successful bone marrow biopsy and aspiration. Please see procedure dictation in EPIC/PACS for full procedural details. Frankie Wayne MD Radiology Cosigned by Anne Ha MD at 02/20/2025 12:58 PM EDT documented in this encounter [facility] 02-20-2025 History and physical note MODIFIED HISTORY AND PHYSICAL: HISTORY: Procedure: CT guided bone marrow biopsy and aspiration Indication: Pancytopenia Medical History[1] Substance Abuse History: Social History[2] History Drug Use Not on file Current Outpatient Medications Medication Sig Dispense Refill triamcinolone 0.1 % cream Apply to affected area on trunk and extremities EVERY DAY to TWICE DAILY NEEDED Ojjaara 100 MG TABS No current facility-administered medications for this encounter. Allergies: Patient has no allergy information on record. PHYSICAL EXAM: Blood pressure 128/58, pulse 81, temperature 97.8 F (36.6 C), temperature source Oral, resp. rate 16, SpO2 98%. Lungs: Clear to auscultation bilaterally Heart: Regular rate and rhythm Labs Reviewed? Yes Recent Labs: No result for specified components in the past 45 days (HGB,HCT,PLT,PTT,PT,INR,FXAUN,ANT IFXALMWHE,CR) Planned Sedation: Moderate Planned Sedation Medications: VERSED (midazolam) and fentanyl ASA Classification: Class I: Healthy individual with no systemic disease Mallampati Airway Assessment: Class II Faucial pillars, soft palate visible Patient or family history of adverse reactions involving sedation/anesthesia: No patient or family history of adverse reaction PRE-PROCEDURE VERIFICATION: Site of Procedure: not applicable Site Marked pre-procedure: N/A Pre-Procedure Pain Ratin/10 Advanced Directives (Living will, health care power of employee benefits attorney): none Patient Recent Code Status: No Order Code Status For This Procedure: Full Code Frankie Wayne MD Radiology [1] No past medical history on file. [2] [facility] Work Phone: 02-20-2025 Note MODIFIED HISTORY AND PHYSICAL: HISTORY: Procedure: CT guided bone marrow biopsy and aspiration Indication: Pancytopenia Medical History[1] Substance Abuse History: Social History[2] History Drug Use Not on file Current Outpatient Medications Medication Sig Dispense Refill triamcinolone 0.1 % cream Apply to affected area on trunk and extremities EVERY DAY to TWICE DAILY NEEDED Ojjaara 100 MG TABS No current facility-administered medications for this encounter. Allergies: Patient has no allergy information on record. PHYSICAL EXAM: Blood pressure 128/58, pulse 81, temperature 97.8 ???F (36.6 ???C), temperature source Oral, resp. rate 16, SpO2 98%. Lungs: Clear to auscultation bilaterally Heart: Regular rate and rhythm Labs Reviewed? Yes Recent Labs: No result for specified components in the past 45 days (HGB,HCT,PLT,PTT,PT,INR,FXAUN,ANT IFXALMWHE,CR) Planned Sedation: Moderate Planned Sedation Medications: VERSED (midazolam) and fentanyl ASA Classification: Class I: Healthy individual with no systemic disease Mallampati Airway Assessment: Class II Faucial pillars, soft palate visible Patient or family history of adverse reactions involving sedation/anesthesia: No patient or family history of adverse reaction PRE-PROCEDURE VERIFICATION: Site of Procedure: not applicable Site Marked pre-procedure: N/A Pre-Procedure Pain Ratin/10 Advanced Directives (Living will, health care power of employee benefits attorney): none Patient Recent Code Status: No Order Code Status For This Procedure: Full Code Frankie Wayne MD Radiology [1] No past medical history on file. [2] [facility] 02-20-2025 History and physical note MODIFIED HISTORY AND PHYSICAL: HISTORY: Procedure: CT guided bone marrow biopsy and aspiration Indication: Pancytopenia Medical History[1] Substance Abuse History: Social History[2] History Drug Use Not on file Current Outpatient Medications Medication Sig Dispense Refill triamcinolone 0.1 % cream Apply to affected area on trunk and extremities EVERY DAY to TWICE DAILY NEEDED Ojjaara 100 MG TABS No current facility-administered medications for this encounter. Allergies: Patient has no allergy information on record. PHYSICAL EXAM: Blood pressure 128/58, pulse 81, temperature 97.8 F (36.6 C), temperature source Oral, resp. rate 16, SpO2 98%. Lungs: Clear to auscultation bilaterally Heart: Regular rate and rhythm Labs Reviewed? Yes Recent Labs: No result for specified components in the past 45 days (HGB,HCT,PLT,PTT,PT,INR,FXAUN,ANT IFXALMWHE,CR) Planned Sedation: Moderate Planned Sedation Medications: VERSED (midazolam) and fentanyl ASA Classification: Class I: Healthy individual with no systemic disease Mallampati Airway Assessment: Class II Faucial pillars, soft palate visible Patient or family history of adverse reactions involving sedation/anesthesia: No patient or family history of adverse reaction PRE-PROCEDURE VERIFICATION: Site of Procedure: not applicable Site Marked pre-procedure: N/A Pre-Procedure Pain Ratin/10 Advanced Directives (Living will, health care power of employee benefits attorney): none Patient Recent Code Status: No Order Code Status For This Procedure: Full Code Frankie Wayne MD Radiology [1] No past medical history on file. [2] documented in this encounter [facility] 02-14-2025 Telephone encounter Note Patient was identified by name and date of . Juliette Schumacher RN Contacted patient to schedule bone marrow biopsy and oncology follow-up. Patient aware of bone marrow biopsy February 20 with 10:30 arrival and MD follow-up March 12. Will have labs tomorrow at OSH. Juliette Schumacher RN [facility] 02-14-2025 Miscellaneous Notes Patient was identified by name and date of . Juliette Schumacher RN Contacted patient to schedule bone marrow biopsy and oncology follow-up. Patient aware of bone marrow biopsy February 20 with 10:30 arrival and MD follow-up March 12. Will have labs tomorrow at OSH. Juliette Schumacher, RN documented in this encounter [facility] 02-12-2025 History of Present illness Narrative Images from the original note were not included. [facility]ATOLOGY [facility]COL[facility] After a thorough discussion with the Interventional Radiology (IR) team, the radiology team, and the MRI team, we reached a consensus that conducting a bone marrow MRI will not provide any benefit in identifying the precise location for a bone marrow biopsy. The IR team is capable of performing the biopsy under CT guidance. This plan was discussed with Dr. Jordan and Dr. Ryder (radiologists) and has been communicated to Dr. Catalan and Ronnie. We will proceed with scheduling the new bone marrow biopsy (BMBx) to be performed by the IR team under imaging guidance. I spoke with the patient over the phone to explain the situation and the necessity of obtaining an accurate diagnosis, which is why the new BMBx is required. The patient expressed understanding but also shared that the previous bedside BMBx performed at the cancer center was very painful. He requested sedation if the pain is not adequately controlled with local lidocaine. I will relay this patient's concern to the IR team. Order placed in the system. Ramo Taylor MD Hematology and Medical Oncology Fellow [employer] chat, [phone] documented in this encounter [facility] 02-11-2025 Telephone encounter Note PT Called back asking for follow up on MRI Informed of message from Dr. Wisam WANG. [facility] 02-11-2025 Miscellaneous Notes PT Called back asking for follow up on MRI Informed of message from Dr. Wisam WANG. Patient calling Patient states that he is to be scheduled for an MRI - I don't see any orders for an MRI Patient can be reached at [phone] documented in this encounter [facility] 02-11-2025 Telephone encounter Note Patient calling Patient states that he is to be scheduled for an MRI - I don't see any orders for an MRI Patient can be reached at [phone] [facility] 02-05-2025 History of Present illness Narrative MD to reach out to IR to see if IR guided bone marrow biopsy possibility. Will arrange follow-up after decision made regarding biopsy. Juliette Schumacher RN documented in this encounter [facility] 01-21-2025 Note Encounter addended b y: Macy Salmeron on: 01/21/2025 12:46 PM Actions taken: Visit diagnoses modified, Order list changed, Diagnosis association updated [facility] 01-21-2025 Miscellaneous Notes Encounter addended by: Macy Salmeron on: 01/21/2025 12:46 PM Actions taken: Visit diagnoses modified, Order list changed, Diagnosis association updated Encounter addended by: Azul Hidalgo RN on: 01/21/2025 11:58 AM Actions taken: Clinical Note Signed Encounter addended by: Stefan Perez APRN-CNP on: 01/21/2025 11:28 AM Actions taken: Order list changed, Diagnosis association updated, Treatment plan modified documented in this encounter [facility] 01-21-2025 Note Encounter addended b y: Azul Hidalgo RN on: 01/21/2025 11:58 AM Actions taken: Clinical Note Signed [facility] 01-21-2025 History of Present illness Narrative Patient was identified by name and date of . Azul Hidalgo RN The patient had a bone marrow biopsy x2 without complications. He was educated on side effects and potential complications/ risks. The sights were clean dry and in tact without bleeding on discharge. Madeline Hidalgo RN Procedure: Bone Marrow Aspiration and Biopsy Date performed: 01/21/2025 Time out completed, patient identified with (2 required): Name and Date of Location where procedure was performed: [facility] Consent: - Method of consent: Signed by responsible constitution party - Person giving consent: Patient Risks discussed: Including, but not limited to Hematoma, Hemorrhage, and Infection. Antiseptic preperation: betadine Bone marrow biopsy attempted on left posterior iliac crest. Unable to obtain an adequate aspirate or core biopsy sample; it appeared that only blood was aspirated with small section of cortical bone. Anatomical landmarks, including the iliac crest, were easily identified. A second attempt was made on the right posterior iliac crest with the same result -- unable to obtain an adequate sample, aspirating blood only. No complications noted post-procedure. Each attempt utilized 10 mL 2% lidocaine. Aftercare: Pressure dressing was placed., External pressure was applied., Patient was instructed on aftercare., Patient verbalized understanding of the aftercare. BRYSON Mejia Patient was identified by name and date of . FLORES Guardado Patient at risk for falls:No Falls Risk protocol implemented: No documented in this encounter [facility] 01-21-2025 Note Encounter addended b y: Stefan Perez APRN-CNP on: 01/21/2025 11:28 AM Actions taken: Order list changed, Diagnosis association updated, Treatment plan modified [facility] 01-21-2025 Note Encounter addended b y: Stefan Perez APRN-CNP on: 01/21/2025 11:28 AM Actions taken: Order list changed, Diagnosis association updated, Treatment plan modified [facility] 01-21-2025 Note Procedure: Bone Campos ow Aspiration and Biopsy Date performed: 01/21/2025 Time out completed, patient identified with (2 required): Name and Date of Location where procedure was performed: [facility] Consent: - Method of consent: Signed by responsible constitution party - Person giving consent: Patient Risks discussed: Including, but not limited to Hematoma, Hemorrhage, and Infection. Antiseptic preperation: betadine Bone marrow biopsy attempted on left posterior iliac crest. Unable to obtain an adequate aspirate or core biopsy sample; it appeared that only blood was aspirated with small section of cortical bone. Anatomical landmarks, including the iliac crest, were easily identified. A second attempt was made on the right posterior iliac crest with the same result -- unable to obtain an adequate sample, aspirating blood only. No complications noted post-procedure. Each attempt utilized 10 mL 2% lidocaine. Aftercare: Pressure dressing was placed., External pressure was applied., Patient was instructed on aftercare., Patient verbalized understanding of the aftercare. BRYSON Mejia [facility] 12-05-2024 History of Present illness Narrative Subjective Patient [...] He has an appointment in January in [place] to discuss it with a different specialist. [...] Exam Vitals reviewed. Exam conducted with a improvement director present (Ayad Dove MS 3). Constitutional: General: [...] is still may need to see a home care and home health aides teacher if it has it. Primary myelofibrosis (CMS-HCC) Follow up with Oncology as directed documented in this encounter [facility] 11-27-2024 Telephone encounter Note Upon review of chart, saw that [...] call back tomorrow. Pineda Parkinson RN [facility] 11-27-2024 Miscellaneous Notes Upon review of chart, saw that pt [...] Parkinson RN documented in this encounter [facility] 11-27-2024 Telephone encounter Note PT called to make appointment Scheduled by notes PT asked 01/15 at 1PM AM. [facility] 11-27-2024 Miscellaneous Notes PT called to make appointment Scheduled by [...] Parkinson RN documented in this encounter [facility] 11-26-2024 Telephone encounter Note Pt id'd by name and . Explained to pt the reason for call was to schedule appt. Pt stated he was not sure whether or not he needed appt and stated he will check w/his oncologist tomorrow. Pt accepted contact info and stated he will call back. Holding 12/[address] CRAIG. please make sure EPIC is updated. Pineda Parkinson RN [facility] 11-16-2024 Miscellaneous Notes Patient's /HIPAA, Marla, called office and stated that she needed to cancel patient's appointment for 12/20/2024 at 1:00 pm with SE due to patient being in hospital. Appointment was cancelled. [facility] Tele[facility] encounter Note Patient's /HIPAA, Marla, called office and stated that she needed to cancel patient's appointment for 12/20/2024 at 1:00 pm with SE due to patient being in hospital. Appointment was cancelled. [facility] 11-01-2024 History of Present illness Narrative Subjective Patient ID: Penny Ordaz is a 64 y.o. male. He presents today for concerns regarding his driving and memory. He was driving to [facility] with his and was driving erratically. A concerned citizen called the police who met him at [facility]. They did check him to see if [...] to drive. He was referred to a home care and home health aides teacher by Dr. Whitfield but a home care and home health aides teacher was not in his network. He needs a referral to a new home care and home health aides teacher. He thinks it was because of the [...] drift. Coordination: Romberg sign negative. Coordination normal. Laoyug-Nwut-Idxsrp Test and Heel to Hay Test normal. [...] Would need to go see pulmonology in [place] or [facility]. I asked him to check his network [...] appears relatively intact. documented in this encounter [facility] 10-04-2024 History of Present illness Narrative Patient is here for hospital [...] said he can see a doctor in [place] that does take his insurance if he is not able to continue to follow with Dr. Stuart. Lab orders, treatment calendar and AVS provided to patient. He verbalized understanding to instructions. Discharged in stable condition to private vehicle. documented in this encounter [facility] 10-04-2024 History of Present illness Narrative Images from the original note were not included. [facility] Bryan Perales M.D. Chantel Maya M.D. Kei Collazo M.D. Wendi Pang M.D. Juliette Ronquillo, [facility] Diann Patel, [facility] [place], [facility] Valeria Valente, [facility] Rasheeda Mijares, [facility] Keyur Stuart M.D. Vijay Carrington M.D. Trae Lazar M.D. Gillian Garza M.D. Joceline Larry, [facility] Laisha Brooks, [facility] Ritu Soumya, [facility] Kim Tavarez, [facility] Yeny Jah, [facility] PROGRESS NOTE 10/04/24 Subjective/Interval [...] is unable to get blood draws from [place]. Oncology History No history exists. Objective Physical [...] him consider bone marrow transplant evaluation at [facility] [facility]. Transfuse to keep hemoglobin above 7. The patient told me due to his insurance change, he may have to establish care with Hematology at [facility]. Keyur Stuart M.D. [facility] [address] [place] [address] [facility] Instructions Keyur Stuart MD - 10/04/2024 10:30 AM EDT Print out order for CBC epo. F/u in 3 months. [facility] Procedure note [place] [facility] 09-21-2024 History of Present illness Narrative [...] Exam Vitals reviewed. Exam conducted with a improvement director present (Jimenez Pritchett MS3). Constitutional: General: He [...] anemia. His saw the GI specialist in [place] and would like to go there. documented in this encounter [email or web address] 09-12-2024 Miscellaneous Notes Classifier Tender called and left voicemail for patient to call office to schedule a HDFU. CXR in 4 to 6 weeks then follow up with any provider in [place] per [facility]. documented in this encounter [facility] 09-12-2024 Telephone encounter Note Classifier Tender called and left voicemail for patient to call office to schedule a HDFU. CXR in 4 to 6 weeks then follow up with any provider in [place] per [facility]. [facility] 09-10-2024 Note IR BX BONE MARROW SN GL OR MULT Pre-procedure diagnosis: See history below Post-procedure diagnosis: Same as above Assistants/resident: See the technologist's notes above Consent/pre-procedure evaluation: See below. [place] protocol timeout verification performed. Estimated blood loss: [...] of intravenous Versed, and 30 minutes of sodb-mi-wbep intraservice time for intravenous conscious sedation by [...] of material was deemed sufficient by the fibre technologist. Finalized by Jonathan Sousa MD on 09/10/2024 2:03 PM [facility] 09-10-2024 Note IR THORACENTESIS W G UIDE RT Pre-procedure diagnosis: See history below Post-procedure diagnosis: Same as above Assistants/resident: See the technologist's notes above Consent/pre-procedure evaluation: See below. [place] protocol timeout verification performed. Estimated blood loss: [...] Jonathan Sousa MD on 09/10/2024 2:00 PM [facility] 09-08-2024 Miscellaneous Notes Contract: 91 New AM consult for Right pleural effusion concern for malignancy To be paged out at 7am Contract: [address] Montelongo on his cell phone- consult information given to MD documented in this encounter [facility] 09-08-2024 Telephone encounter Note Contract: 91 New AM consult for Right pleural effusion concern for malignancy To be paged out at 7am [facility] 09-08-2024 Telephone encounter Note Contract: [address] Montelongo on his cell phone- consult information given to MD [facility] 09-06-2024 Miscellaneous Notes Contract: 198 re Critical Lab Call was connected to Dr Mina alberto documented in this encounter [facility] 09-06-2024 Telephone encounter Note Contract: 198 re Critical Lab [facility] 09-06-2024 Telephone encounter Note Call was connected to Dr Mina alberto [facility] 09-06-2024 History of Present illness Narrative Subjective [...] Exam Vitals reviewed. Exam conducted with a improvement director present ( and Jimenez Suárezrinayen MS3). Constitutional: General: He is not in [...] Future He scored a 27 on the [place] so I doubt he has any significant [...] but he declined. documented in this encounter [facility] 07-23-2024 Miscellaneous Notes Patient's called and stated that she feels patient is getting some dementia. He is getting violent in the evening and forgetful. She was wondering if there could be a referral for him to see Dr. Dai He needs an appointment here 1st to be screen for dementia documented in this encounter [facility] 07-23-2024 Telephone encounter Note Patient's called and stated that she feels patient is getting some dementia. He is getting violent in the evening and forgetful. She was wondering if there could be a referral for him to see Dr. Dai [facility] 07-23-2024 Telephone encounter Note He needs an appointment here 1st to be screen for dementia [facility] 06-25-2024 History of Present illness Narrative Subjective [...] ear normal. Nose: Nose normal. Mouth/Throat: Lips: [place]. Mouth: Mucous membranes are moist. Dentition: Abnormal [...] in 1 year. documented in this encounter [facility] [employer] [facility] Evaluation note Diagnosis Welcome to Medicare preventive visit- Primary Screening for depression Screening for heart disease Screening for other and unspecified cardiovascular conditions Colon cancer screening declined Prostate cancer screening declined documented [facility] this encounter [facility]* Diagnosis Memory loss- Primary Hot flashes Cigarette smoker Tobacco use disorder [facility] Diagnosis Severe anemia- Primary Lymphadenopathy, inguinal Ex-cigarette smoker Personal history of tobacco use, presenting hazards to health Hyperglycemia Other abnormal glucose Special screening for malignant neoplasm of colon Special screening for malignant neoplasms, colon documented in this encounter [facility] noteNo assessment information available [facility] Work Phone: Evaluation note* Diagnosis Severe anemia- Primary documented in this encounter [facility]* Diagnosis 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 anemia Lymphadenopathy, inguinal Splenomegaly [facility] Diagnosis 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 Pleural effusion, right Unspecified pleural effusion Memory loss [facility]* Diagnosis Pleural effusion, right- Primary Unspecified pleural effusion Primary myelofibrosis (CMS-HCC) Myelofibrosis with myeloid metaplasia [facility] Diagnosis Pancytopenia- Primary Other pancytopenia [facility] Diagnosis Pancytopenia- Primary Other pancytopenia [facility] Diagnosis Pancytopenia- Primary Other pancytopenia Myelofibrosis (HCC) Myelofibrosis [facility] Diagnosis Pancytopenia- Primary Other pancytopenia [facility] Diagnosis Myelofibrosis (HCC)- Primary Myelofibrosis Pancytopenia Other pancytopenia MDS (myelodysplastic syndrome) (HCC) Myelodysplastic syndrome, unspecified Abnormal findings on diagnostic imaging of other specified body structures [facility] Diagnosis Pancytopenia Other pancytopenia Myelofibrosis (HCC) Myelofibrosis MDS (myelodysplastic syndrome) (HCC) Myelodysplastic syndrome, unspecified [facility] Diagnosis 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 anemia documented in this encounter [facility]* Diagnosis Myelofibrosis (HCC)- Primary Myelofibrosis documented in this [facility] filedocumented [facility]ructionsNot on filedocumented in this [facility] InstructionsNot on filedocumented in this [facility] InstructionsNot on filedocumented in this [facility] InstructionsNot on filedocumented in this [facility] InstructionsNot on filedocumented in this [facility] InstructionsNot on filedocumented in this [facility] InstructionsNot on filedocumented in this [facility] InstructionsNot on filedocumented in this [facility] InstructionsNot on filedocumented in this [facility] InstructionsNot on filedocumented in this encounterProMedica Health SystemReason for visit Narrative* Provider Visit (Routine) - Authorized Specialty Diagnoses / Procedures Referred By Bala t Referred To Contact Oncology Medical Diagnoses Primary myelofibrosis (HCC) Refractory anemia with excess blasts-1 (HCC) Poncho Hopper MD [address] [place] [address] Phone: tel: fax: [address] [address] Phone: tel: Referral ID Status Reason Start Date Expiration Date V isits Requested Visits Authorized [id number] Authorized 11/23/2024 05/22/2025 3 3 [facility]* Diagnostic X-Ray (Routine) - Closed Specialty Diagnoses / Procedures Referred By Contac t Referred To Contact Radiology Diagnoses Pancytopenia Myelofibrosis (HCC) MDS (myelodysplastic syndrome) (HCC) Procedures CT BIOPSY BONE (MONIQUE) XA INTERVENTIONAL RADIOLOGY PROCEDURE SERVICE Lashell Trujillo DO [address] [place] [address] Phone: tel: fax: [facility] [address] [place] [address] Phone: tel: Referral ID Status Reason Start Date Expiration Date Visits Re quested Visits Authorized [id number] Closed 02/12/2025 02/12/2026 1 1 [facility] N[facility]* Service Level Authorization (Routine) - Pending Review Specialty Diagnoses / Procedures Referred By Contac t Referred To Contact Oncology Medical Diagnoses Pancytopenia [facility] [address] [place] [address] Phone: tel: fax: Referral ID Status Reason Start Date Expiration Date V isits Requested Visits Authorized [id number] Pending Review 01/15/2025 07/14/2025 1 1 [facility] Summary Purpose Family History No Family History [...] Recorded Date/ Time Advance Directives No September 24, 025 2:06pm Chief Complaint and Reason for [...] and content) DATE CREATED AUTHOR 01/04/2018 [facility] DATE CREATED AUTHOR AUTHOR'S ORGANIZ ATION 01/10/2018 [facility] DATE CREATED AUTHOR AUTHOR'S ORGANIZ ATION 09/19/2020 [facility] DATE CREATED AUTHOR AUTHOR'S ORGANIZ ATION 09/22/2024 [facility] DATE CREATED AUTHOR AUTHOR'S ORGANIZ ATION 2024 [facility] DATE CREATED AUTHOR AUTHOR'S ORGANIZ ATION 10/14/2024 [facility] DATE CREATED AUTHOR AUTHOR'S ORGANIZ ATION 03/09/2025 [facility] DATE CREATED AUTHOR AUTHOR'S ORGANIZ ATION 03/13/2025 [facility] Care Teams (unrecognized sec tion and content) Bundle Tier Relationship Specialty Start Date End Date Dewey Ward DO [address], [place] [address] PCP - General Family Medicine 10/10/23 Bundle Tier Relationship Specialty Start Date End Date Dewey Ward DO [address] [place] [address] PCP - General Family Medicine 10/10/23 Bundle Tier Relationship Specialty Start Date End Date Dewey Ward DO [address] [place] [address] PCP - General Family Medicine 10/10/23 Bundle Tier Relationship Specialty Start Date End Date LuciathomasDewey lanier DO [address], [place] [address] PCP - General Family Medicine 10/10/23 Bundle Tier Relationship Specialty Start Date End Date LuciathomasDewey lanier DO [address], [place] [address] PCP - General Family Medicine 10/10/23 Bundle Tier Relationship Specialty Start Date End Date LuciaalyDewey DO [address], [place] [address] PCP - General Family Medicine 09/07/24 Bundle Tier Relationship Specialty Start Date End Date LuciathomasDewey lanier DO [address], [place] [address] PCP - General Family Medicine 09/07/24 Team Status: Active Member Role Status Dates Deweyvenkatesh MyersDO aly Primary Care Provider Active Team Status: Inactive Member Role Status Dates Dewey LuciaDO aly Primary Care Provide r, Attending Provider Active Start: September 26, 2024 End: September 26, 2024 Team Status: Active Member Role Status Dates Dewey Ward DO Primary Care Provide r, Other Provider Active Start: September 26, 2024 Rasheeda Horn MD Attending Provider Active Start: September 26, 2024 Bundle Tier Relationship Specialty Start Date End Date Dewey Ward DO [address], [place] [address] PCP - General Family Medicine 09/07/24 Bundle Tier Relationship Specialty Start Date End Date LuciaalyDewey [address], [place] [address] PCP - General Family Medicine 09/07/24 Bundle Tier Relationship Specialty Start Date End Date Dewey Ward DO [address], [place] [address] PCP - General Family Medicine 09/07/24 Team Status: Inactive Member Role Status Dates Martita Hopper MD Attending Provider Active St art: October 09, 2024 End: October 09, 2024 Bundle Tier Relationship Specialty Start Date End Date Dewey Ward DO [address], [place] [address] PCP - General Family Medicine 09/07/24 Bundle Tier Relationship Specialty Start Date End Date Dewey Ward DO [address], [place] [address] PCP - General Family Medicine 09/07/24 Reason for Visit (unrecogniz ed section and content) Reason Comments Follow-up Reason Comments Referral Reason Onset Date Comments CRITICAL LAB 09/06/2024 Reason Onset Date Comments Consult 09/08/2024 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 [facility]. provides no warranty or guarantee of the accuracy or completeness of information in this document.
[2025-03-19 08:58] LABS: Mean Corpuscular HGB Conc 33.2 g/dL (29.9-35.2); Mean Corpuscular Hemoglobin 31.8 pg (25.9-34.0); Mean Corpuscular Volume 95.8 fL (80.0-94.0); Platelet Count 264 10^3/uL (150-450); Red Blood Count 2.14 10^6/uL (4.70-6.10); White Blood Count 8.2 10^3/uL (4.0-11.0)
[2025-03-19 09:03] LABS: Hematocrit 20.5 % (42.0-54.0); Hemoglobin 6.8 g/dL (14.0-18.0)
--- NOTE | 2025-03-19 09:03 | PC.NURSE ---
Dr. Hopper notified of critical lab results. Hgb. 6.8 and Hct 20.5. New order provided.
[2025-03-19 09:15] LABS: Alanine Aminotransferase 25 U/L (16-63); Albumin Globulin Ratio 1.0; Albumin Level 4.3 g/dL (3.4-5.0); Alkaline Phosphatase 80 U/L (46-116); Anion Gap 13.9; Aspartate Amino Transferase 20 U/L (15-37); Blood Urea Nitrogen 9.0 mg/dL (7.0-18.0); Calcium 9.0 mg/dL (8.5-10.1); Carbon Dioxide 25.1 mmol/L (21.0-32.0); Chloride 102 mmol/L (98-107); Estimated GFR (African America >60 (>=60 mL/min/1.73m^2); Estimated GFR (Non-African Ame >60 (>=60 mL/min/1.73m^2); Globulin 4.4 g/dL; Glucose 119 mg/dL (74-106); Potassium 5.0 mmol/L (3.5-5.1); Sodium 136 mmol/L (136-145); Total Protein 8.7 g/dL (6.4-8.2)
[2025-03-19] MEDS: 0.9 % SODIUM CHLORIDE 250 ML 10 ML IV (09:17)
[2025-03-19] MEDS: DIPHENHYDRAMINE HCL 25 MG CAPSULE PO (09:18)
[2025-03-19] MEDS: ACETAMINOPHEN 325 MG TABLET 650 MG PO (09:18)
[2025-03-19 09:31] LABS: Basophils Abs Manual 0.00 10^3/uL (0.00-0.10); Basophils Percent Manual 0.0 % (0.2-2.0); Eosinophils Absolute Manual 0.00 10^3/uL (0.00-0.70); Eosinophils Percent Manual 0.0 % (0.9-7.0); Lymphocytes Absolute Manual 0.49 10^3/uL (1.20-3.80); Lymphocytes Percent Manual 6.0 % (20.5-60.0); Metamyelocytes Absolute Manual 0.41; Monocytes Absolute Manual 0.08 10^3/uL (0.30-0.80); Monocytes Percent Manual 1.0 % (1.7-12.0); Myelocytes % Manual 1.0; Myelocytes Absolute Manual 0.08; Segmented Neut Absolute Manual 7.13 10^3/uL (1.4-6.5); Segmented Neutrophils % Manual 87.0 (43.0-75.0)
[2025-03-19] MEDS: EPOETIN ALFA 20,000 UNIT/2 ML VIAL 60000 UNIT SUBQ (09:49)
[2025-03-19] MEDS: LUSPATERCEPT AAMT SQ (09:50)
[2025-03-19 10:23] VITALS: BP 117/59; PULSE 79; TEMP 36.6; O2SAT 99
[2025-03-19 10:42] VITALS: BP 122/58; PULSE 68; TEMP 36.6; O2SAT 100
[2025-03-19 11:42] VITALS: BP 133/63; PULSE 66; TEMP 36.4; O2SAT 100
[2025-03-26 08:34] VITALS: BP 133/77; PULSE 84; TEMP 36.6; O2SAT 98
[2025-03-26 08:48] LABS: Hemoglobin 7.9 g/dL (14.0-18.0); Mean Corpuscular HGB Conc 33.5 g/dL (29.9-35.2); Mean Corpuscular Hemoglobin 31.2 pg (25.9-34.0); Mean Corpuscular Volume 93.3 fL (80.0-94.0); Platelet Count 208 10^3/uL (150-450); Red Blood Count 2.53 10^6/uL (4.70-6.10); White Blood Count 7.6 10^3/uL (4.0-11.0)
[2025-03-26 08:52] LABS: Hematocrit 23.6 % (42.0-54.0)
[2025-03-26] MEDS: EPOETIN ALFA 20,000 UNIT/2 ML VIAL 60000 UNIT SUBQ (08:57)
[2025-03-26 09:15] LABS: Band Neutrophils Absolute 0.3 10^3/uL (0.0-0.3); Basophils Abs Manual 0.15 10^3/uL (0.00-0.10); Basophils Percent Manual 2.0 % (0.2-2.0); Eosinophils Absolute Manual 0.07 10^3/uL (0.00-0.70); Eosinophils Percent Manual 1.0 % (0.9-7.0); Lymphocytes Absolute Manual 0.83 10^3/uL (1.20-3.80); Lymphocytes Percent Manual 11.0 % (20.5-60.0); Monocytes Absolute Manual 0.53 10^3/uL (0.30-0.80); Monocytes Percent Manual 7.0 % (1.7-12.0); Myelocytes % Manual 1.0; Myelocytes Absolute Manual 0.07; Segmented Neut Absolute Manual 5.62 10^3/uL (1.4-6.5); Segmented Neutrophils % Manual 74.0 (43.0-75.0)
[2025-03-26 09:16] LABS: Anisocytosis 3+
[2025-04-02 08:46] VITALS: BP 151/72; PULSE 97; TEMP 36.9; O2SAT 100
[2025-04-02 09:05] LABS: Hemoglobin 7.5 g/dL (14.0-18.0); Mean Corpuscular HGB Conc 34.4 g/dL (29.9-35.2); Mean Corpuscular Hemoglobin 32.5 pg (25.9-34.0); Mean Corpuscular Volume 94.4 fL (80.0-94.0); Platelet Count 237 10^3/uL (150-450); Red Blood Count 2.31 10^6/uL (4.70-6.10); White Blood Count 8.4 10^3/uL (4.0-11.0)
[2025-04-02 09:11] LABS: Hematocrit 21.8 % (42.0-54.0)
--- NOTE | 2025-04-02 09:13 | PC.NURSE ---
Lab phoned with critical Hct 21.8. Dr. Hopper notified.
[2025-04-02 09:25] LABS: Anisocytosis 3+; Band Neutrophils Absolute 0.2 10^3/uL (0.0-0.3); Basophils Abs Manual 0.33 10^3/uL (0.00-0.10); Basophils Percent Manual 4.0 % (0.2-2.0); Blast % Manual 3.0; Blast Absolute Manual 0.25; Eosinophils Absolute Manual 0.00 10^3/uL (0.00-0.70); Eosinophils Percent Manual 0.0 % (0.9-7.0); Lymphocytes Absolute Manual 0.84 10^3/uL (1.20-3.80); Lymphocytes Percent Manual 10.0 % (20.5-60.0); Monocytes Absolute Manual 0.42 10^3/uL (0.30-0.80); Monocytes Percent Manual 5.0 % (1.7-12.0); Myelocytes % Manual 1.0; Myelocytes Absolute Manual 0.08; Segmented Neut Absolute Manual 6.30 10^3/uL (1.4-6.5); Segmented Neutrophils % Manual 75.0 (43.0-75.0)
[2025-04-09 09:04] VITALS: BP 123/73; PULSE 100; TEMP 37.1; O2SAT 95
[2025-04-09 09:18] LABS: Hemoglobin 7.2 g/dL (14.0-18.0); Mean Corpuscular HGB Conc 34.0 g/dL (29.9-35.2); Mean Corpuscular Hemoglobin 32.9 pg (25.9-34.0); Mean Corpuscular Volume 96.8 fL (80.0-94.0); Platelet Count 232 10^3/uL (150-450); Red Blood Count 2.19 10^6/uL (4.70-6.10); White Blood Count 9.6 10^3/uL (4.0-11.0)
[2025-04-09 09:22] LABS: Hematocrit 21.2 % (42.0-54.0)
--- NOTE | 2025-04-09 09:31 | PC.NURSE ---
Dr. Hopper in and examines, speaks with patient regarding progress towards transplant at [facility]
[2025-04-09 09:37] LABS: Band Neutrophils Absolute 0.1 10^3/uL (0.0-0.3); Basophils Abs Manual 0.19 10^3/uL (0.00-0.10); Basophils Percent Manual 2.0 % (0.2-2.0); Blast % Manual 2.0; Blast Absolute Manual 0.19; Eosinophils Absolute Manual 0.09 10^3/uL (0.00-0.70); Eosinophils Percent Manual 1.0 % (0.9-7.0); Lymphocytes Absolute Manual 0.76 10^3/uL (1.20-3.80); Lymphocytes Percent Manual 8.0 % (20.5-60.0); Metamyelocytes Absolute Manual 0.09; Monocytes Absolute Manual 0.28 10^3/uL (0.30-0.80); Monocytes Percent Manual 3.0 % (1.7-12.0); Segmented Neut Absolute Manual 7.87 10^3/uL (1.4-6.5); Segmented Neutrophils % Manual 82.0 (43.0-75.0)
[2025-04-09 09:39] LABS: Anisocytosis 3+
[2025-04-09 09:56] LABS: Magnesium 1.8 mg/dL (1.8-2.4)
[2025-04-09] MEDS: LUSPATERCEPT AAMT 50 MG SQ (10:37)
[2025-04-09] MEDS: LUSPATERCEPT AAMT SQ (10:37)
[2025-04-16 08:41] VITALS: BP 132/69; PULSE 85; TEMP 36.6; O2SAT 93
[2025-04-16 09:04] LABS: Hemoglobin 7.1 g/dL (14.0-18.0); Mean Corpuscular HGB Conc 33.6 g/dL (29.9-35.2); Mean Corpuscular Hemoglobin 32.4 pg (25.9-34.0); Mean Corpuscular Volume 96.3 fL (80.0-94.0); Platelet Count 260 10^3/uL (150-450); Red Blood Count 2.19 10^6/uL (4.70-6.10); White Blood Count 12.5 10^3/uL (4.0-11.0)
[2025-04-16 09:19] LABS: Hematocrit 21.1 % (42.0-54.0)
--- NOTE | 2025-04-16 09:19 | PC.NURSE ---
lab called to report elevated HCT 21.1 updated Physician HGB is 7.1 Dr. Hopper updated on this lab value as well.
[2025-04-16] MEDS: DIPHENHYDRAMINE HCL 25 MG CAPSULE PO (09:39)
[2025-04-16] MEDS: 0.9 % SODIUM CHLORIDE 250 ML 10 ML IV (09:39)
[2025-04-16] MEDS: ACETAMINOPHEN 325 MG TABLET 650 MG PO (09:39)
[2025-04-16 09:46] LABS: Basophils Abs Manual 0.37 10^3/uL (0.00-0.10); Basophils Percent Manual 3.0 % (0.2-2.0); Eosinophils Absolute Manual 0.00 10^3/uL (0.00-0.70); Eosinophils Percent Manual 0.0 % (0.9-7.0); Lymphocytes Absolute Manual 1.25 10^3/uL (1.20-3.80); Lymphocytes Percent Manual 10.0 % (20.5-60.0); Monocytes Absolute Manual 0.62 10^3/uL (0.30-0.80); Monocytes Percent Manual 5.0 % (1.7-12.0)
[2025-04-16 09:47] LABS: Band Neutrophils Absolute 0.9 10^3/uL (0.0-0.3); Segmented Neut Absolute Manual 9.37 10^3/uL (1.4-6.5); Segmented Neutrophils % Manual 75.0 (43.0-75.0)
[2025-04-16 09:48] LABS: Anisocytosis 3+
[2025-04-16 10:49] VITALS: BP 131/71; PULSE 65; TEMP 36.4; O2SAT 97
[2025-04-16 11:11] VITALS: BP 124/72; PULSE 73; TEMP 36.3; O2SAT 16
[2025-04-16 12:11] VITALS: BP 128/70; PULSE 74; TEMP 36.4; O2SAT 97
== END 2025-04-16 23:59 | disposition home or self-care (01) ==
LOC: HEMC 08:41
PROVIDERS: PCP Family Medicine; Visit Provider Internal Medicine Hematology & Oncology
DX: D46.21 Refractory anemia with excess of blasts 1 (principal); D46.9 Myelodysplastic syndrome, unspecified; D75.81 Myelofibrosis; Z87.891 Personal history of nicotine dependence; R16.1 Splenomegaly, not elsewhere classified
CPT/HCPCS: 36415; 36430; 80053; 83735; 85007; 85027; 86850; 86900; 86901; 86923; 96372; G0463; J0885; J0896; P9038

== ENCOUNTER 2025-05-14 08:49 | Outpatient (RCR) | payer OTHER, SELFPAY ==
[2025-04-23 08:41] VITALS: BP 137/63; PULSE 96; TEMP 36.6; O2SAT 98
[2025-04-23 09:11] LABS: Hemoglobin 7.0 g/dL (14.0-18.0); Mean Corpuscular HGB Conc 34.3 g/dL (29.9-35.2); Mean Corpuscular Hemoglobin 32.9 pg (25.9-34.0); Mean Corpuscular Volume 95.8 fL (80.0-94.0); Platelet Count 186 10^3/uL (150-450); Red Blood Count 2.13 10^6/uL (4.70-6.10); White Blood Count 8.7 10^3/uL (4.0-11.0)
[2025-04-23 09:14] LABS: Hematocrit 20.4 % (42.0-54.0)
--- NOTE | 2025-04-23 09:29 | PC.NURSE ---
0914 lab called with critical HCT. of 20.4 Dr. Hopper updated and no new orders for today.
[2025-04-23 09:43] LABS: Segmented Neut Absolute Manual 5.65 10^3/uL (1.4-6.5); Segmented Neutrophils % Manual 65.0 (43.0-75.0)
[2025-04-23 09:44] LABS: Anisocytosis 3+; Band Neutrophils Absolute 1.3 10^3/uL (0.0-0.3); Basophils Abs Manual 0.08 10^3/uL (0.00-0.10); Basophils Percent Manual 1.0 % (0.2-2.0); Eosinophils Absolute Manual 0.08 10^3/uL (0.00-0.70); Eosinophils Percent Manual 1.0 % (0.9-7.0); Lymphocytes Absolute Manual 0.87 10^3/uL (1.20-3.80); Lymphocytes Percent Manual 10.0 % (20.5-60.0); Monocytes Absolute Manual 0.69 10^3/uL (0.30-0.80); Monocytes Percent Manual 8.0 % (1.7-12.0)
[2025-04-30] VITALS (9 sets, daily range): BP systolic 111–150; BP diastolic 49–73; PULSE 65–105; TEMP 36.4–37; O2SAT 93–98
[2025-04-30 09:11] LABS: Mean Corpuscular HGB Conc 35.2 g/dL (29.9-35.2); Mean Corpuscular Hemoglobin 33.3 pg (25.9-34.0); Mean Corpuscular Volume 94.8 fL (80.0-94.0); Platelet Count 231 10^3/uL (150-450); Red Blood Count 1.74 10^6/uL (4.70-6.10); White Blood Count 8.4 10^3/uL (4.0-11.0)
[2025-04-30 09:15] LABS: Hematocrit 16.5 % (42.0-54.0); Hemoglobin 5.8 g/dL (14.0-18.0)
--- NOTE | 2025-04-30 09:16 | PC.NURSE ---
critical labs called at this time HGB 5.[address] at this time.
[2025-04-30 09:20] LABS: Alanine Aminotransferase 20 U/L (16-63); Albumin Globulin Ratio 0.9; Albumin Level 3.8 g/dL (3.4-5.0); Alkaline Phosphatase 81 U/L (46-116); Anion Gap 17.0; Aspartate Amino Transferase 22 U/L (15-37); Blood Urea Nitrogen 15.0 mg/dL (7.0-18.0); Calcium 9.0 mg/dL (8.5-10.1); Carbon Dioxide 22.6 mmol/L (21.0-32.0); Chloride 102 mmol/L (98-107); Estimated GFR (African America >60 (>=60 mL/min/1.73m^2); Estimated GFR (Non-African Ame >60 (>=60 mL/min/1.73m^2); Globulin 4.4 g/dL; Glucose 104 mg/dL (74-106); Potassium 4.6 mmol/L (3.5-5.1); Sodium 137 mmol/L (136-145); Total Protein 8.2 g/dL (6.4-8.2)
[2025-04-30 09:35] LABS: Eosinophils Absolute Manual 0.08 10^3/uL (0.00-0.70); Eosinophils Percent Manual 1.0 % (0.9-7.0); Lymphocytes Absolute Manual 1.00 10^3/uL (1.20-3.80); Lymphocytes Percent Manual 12.0 % (20.5-60.0); Monocytes Absolute Manual 0.25 10^3/uL (0.30-0.80); Monocytes Percent Manual 3.0 % (1.7-12.0)
[2025-04-30 09:36] LABS: Band Neutrophils Absolute 0.3 10^3/uL (0.0-0.3); Basophils Abs Manual 0.25 10^3/uL (0.00-0.10); Basophils Percent Manual 3.0 % (0.2-2.0); Blast % Manual 2.0; Blast Absolute Manual 0.16; Myelocytes % Manual 2.0; Myelocytes Absolute Manual 0.16; Segmented Neut Absolute Manual 6.13 10^3/uL (1.4-6.5); Segmented Neutrophils % Manual 73.0 (43.0-75.0)
[2025-04-30 09:37] LABS: Anisocytosis 3+
[2025-04-30] MEDS: 0.9 % SODIUM CHLORIDE 250 ML 10 ML IV (11:47)
[2025-04-30] MEDS: ACETAMINOPHEN 325 MG TABLET 650 MG PO (11:47)
[2025-04-30] MEDS: DIPHENHYDRAMINE HCL 25 MG CAPSULE PO (11:48)
[2025-04-30] MEDS: LUSPATERCEPT AAMT SQ (15:08)
[2025-04-30] MEDS: LUSPATERCEPT AAMT 50 MG SUBQ (15:09)
[2025-05-07 09:00] VITALS: BP 168/72; PULSE 91; TEMP 36.3; O2SAT 94
[2025-05-07 09:23] LABS: Hemoglobin 7.5 g/dL (14.0-18.0); Mean Corpuscular HGB Conc 33.0 g/dL (29.9-35.2); Mean Corpuscular Hemoglobin 31.0 pg (25.9-34.0); Mean Corpuscular Volume 93.8 fL (80.0-94.0); Platelet Count 234 10^3/uL (150-450); Red Blood Count 2.42 10^6/uL (4.70-6.10); White Blood Count 7.7 10^3/uL (4.0-11.0)
[2025-05-07 09:28] LABS: Hematocrit 22.7 % (42.0-54.0)
[2025-05-07 09:30] LABS: Anion Gap 14.7; Blood Urea Nitrogen 13.0 mg/dL (7.0-18.0); Calcium 9.4 mg/dL (8.5-10.1); Carbon Dioxide 27.0 mmol/L (21.0-32.0); Chloride 100 mmol/L (98-107); Estimated GFR (African America >60 (>=60 mL/min/1.73m^2); Estimated GFR (Non-African Ame >60 (>=60 mL/min/1.73m^2); Glucose 101 mg/dL (74-106); Potassium 4.7 mmol/L (3.5-5.1); Sodium 137 mmol/L (136-145)
[2025-05-07 09:52] LABS: Band Neutrophils Absolute 0.2 10^3/uL (0.0-0.3); Basophils Abs Manual 0.15 10^3/uL (0.00-0.10); Basophils Percent Manual 2.0 % (0.2-2.0); Eosinophils Absolute Manual 0.00 10^3/uL (0.00-0.70); Eosinophils Percent Manual 0.0 % (0.9-7.0); Monocytes Absolute Manual 0.46 10^3/uL (0.30-0.80); Monocytes Percent Manual 6.0 % (1.7-12.0); Segmented Neut Absolute Manual 5.39 10^3/uL (1.4-6.5); Segmented Neutrophils % Manual 70.0 (43.0-75.0)
[2025-05-07 09:53] LABS: Blast % Manual 4.0; Blast Absolute Manual 0.30; Lymphocytes Absolute Manual 1.15 10^3/uL (1.20-3.80); Lymphocytes Percent Manual 15.0 % (20.5-60.0)
[2025-05-07 09:54] LABS: Anisocytosis 2+
[2025-05-14 09:16] LABS: Hemoglobin 7.8 g/dL (14.0-18.0); Mean Corpuscular HGB Conc 33.1 g/dL (29.9-35.2); Mean Corpuscular Hemoglobin 31.3 pg (25.9-34.0); Mean Corpuscular Volume 94.8 fL (80.0-94.0); Platelet Count 243 10^3/uL (150-450); Red Blood Count 2.49 10^6/uL (4.70-6.10); White Blood Count 9.9 10^3/uL (4.0-11.0)
[2025-05-14 09:25] LABS: Anion Gap 14.3; Blood Urea Nitrogen 17.0 mg/dL (7.0-18.0); Calcium 9.7 mg/dL (8.5-10.1); Carbon Dioxide 27.8 mmol/L (21.0-32.0); Chloride 100 mmol/L (98-107); Estimated GFR (African America >60 (>=60 mL/min/1.73m^2); Estimated GFR (Non-African Ame 58 (>=60 mL/min/1.73m^2); Glucose 109 mg/dL (74-106); Potassium 5.1 mmol/L (3.5-5.1); Sodium 137 mmol/L (136-145)
[2025-05-14 09:26] LABS: Hematocrit 23.6 % (42.0-54.0)
--- NOTE | 2025-05-14 09:26 | PC.NURSE ---
lab called with critical HCT of 23.[address] Hopper.
[2025-05-14 11:18] LABS: Band Neutrophils Absolute 0.9 10^3/uL (0.0-0.3); Basophils Abs Manual 0.09 10^3/uL (0.00-0.10); Basophils Percent Manual 1.0 % (0.2-2.0); Blast % Manual 2.0; Blast Absolute Manual 0.19; Eosinophils Absolute Manual 0.19 10^3/uL (0.00-0.70); Eosinophils Percent Manual 2.0 % (0.9-7.0); Lymphocytes Absolute Manual 1.88 10^3/uL (1.20-3.80); Lymphocytes Percent Manual 19.0 % (20.5-60.0); Monocytes Absolute Manual 0.49 10^3/uL (0.30-0.80); Monocytes Percent Manual 5.0 % (1.7-12.0); Myelocytes % Manual 2.0; Myelocytes Absolute Manual 0.19; Segmented Neut Absolute Manual 5.94 10^3/uL (1.4-6.5); Segmented Neutrophils % Manual 60.0 (43.0-75.0)
[2025-05-14 11:21] LABS: Anisocytosis 2+
== END 2025-05-17 23:59 | disposition home or self-care (01) ==
LOC: HEMC 08:49
PROVIDERS: PCP Family Medicine; Visit Provider Internal Medicine Hematology & Oncology
DX: D46.9 Myelodysplastic syndrome, unspecified (principal); D75.81 Myelofibrosis; D46.21 Refractory anemia with excess of blasts 1
CPT/HCPCS: 36415; 36430; 80048; 80053; 85007; 85027; 86850; 86900; 86901; 86923; 96372; J0896; P9038

== ENCOUNTER 2025-06-11 08:51 | Outpatient (RCR) | payer OTHER, SELFPAY ==
[2025-05-21 09:05] LABS: Hemoglobin 7.4 g/dL (14.0-18.0); Mean Corpuscular HGB Conc 33.9 g/dL (29.9-35.2); Mean Corpuscular Hemoglobin 32.6 pg (25.9-34.0); Mean Corpuscular Volume 96.0 fL (80.0-94.0); Platelet Count 143 10^3/uL (150-450); Red Blood Count 2.27 10^6/uL (4.70-6.10); White Blood Count 12.7 10^3/uL (4.0-11.0)
[2025-05-21 09:08] VITALS: BP 145/69; PULSE 116; TEMP 36.1; O2SAT 100
[2025-05-21 09:09] LABS: Hematocrit 21.8 % (42.0-54.0)
[2025-05-21 09:32] LABS: Band Neutrophils Absolute 0.5 10^3/uL (0.0-0.3); Basophils Abs Manual 0.25 10^3/uL (0.00-0.10); Basophils Percent Manual 2.0 % (0.2-2.0); Blast % Manual 2.0; Blast Absolute Manual 0.25; Eosinophils Absolute Manual 0.00 10^3/uL (0.00-0.70); Eosinophils Percent Manual 0.0 % (0.9-7.0); Lymphocytes Absolute Manual 2.03 10^3/uL (1.20-3.80); Lymphocytes Percent Manual 16.0 % (20.5-60.0); Metamyelocytes Absolute Manual 0.25; Monocytes Absolute Manual 0.63 10^3/uL (0.30-0.80); Monocytes Percent Manual 5.0 % (1.7-12.0); Myelocytes % Manual 1.0; Myelocytes Absolute Manual 0.12; Segmented Neut Absolute Manual 8.63 10^3/uL (1.4-6.5); Segmented Neutrophils % Manual 68.0 (43.0-75.0)
[2025-05-21 09:36] LABS: Anisocytosis 3+; Polychromasia 1+
[2025-05-21] MEDS: LUSPATERCEPT AAMT 50 MG SUBQ (10:32)
[2025-05-21] MEDS: LUSPATERCEPT AAMT SQ (10:32)
[2025-05-28 08:29] VITALS: BP 156/71; PULSE 104; TEMP 36.5; O2SAT 97
[2025-05-28 08:40] LABS: Mean Corpuscular HGB Conc 35.1 g/dL (29.9-35.2); Mean Corpuscular Hemoglobin 33.7 pg (25.9-34.0); Mean Corpuscular Volume 95.9 fL (80.0-94.0); Platelet Count 110 10^3/uL (150-450); Red Blood Count 1.93 10^6/uL (4.70-6.10); White Blood Count 12.4 10^3/uL (4.0-11.0)
[2025-05-28 08:55] LABS: Alanine Aminotransferase 23 U/L (16-63); Albumin Globulin Ratio 0.8; Albumin Level 3.8 g/dL (3.4-5.0); Alkaline Phosphatase 80 U/L (46-116); Anion Gap 16.9; Aspartate Amino Transferase 22 U/L (15-37); Blood Urea Nitrogen 19.0 mg/dL (7.0-18.0); Calcium 9.0 mg/dL (8.5-10.1); Carbon Dioxide 24.2 mmol/L (21.0-32.0); Chloride 102 mmol/L (98-107); Estimated GFR (African America >60 (>=60 mL/min/1.73m^2); Estimated GFR (Non-African Ame 58 (>=60 mL/min/1.73m^2); Globulin 4.8 g/dL; Glucose 115 mg/dL (74-106); Potassium 5.1 mmol/L (3.5-5.1); Sodium 138 mmol/L (136-145); Total Protein 8.6 g/dL (6.4-8.2)
[2025-05-28 08:58] LABS: Hematocrit 18.5 % (42.0-54.0); Hemoglobin 6.5 g/dL (14.0-18.0)
[2025-05-28 09:10] LABS: Band Neutrophils Absolute 0.7 10^3/uL (0.0-0.3); Basophils Abs Manual 0.37 10^3/uL (0.00-0.10); Basophils Percent Manual 3.0 % (0.2-2.0); Eosinophils Absolute Manual 0.00 10^3/uL (0.00-0.70); Eosinophils Percent Manual 0.0 % (0.9-7.0); Lymphocytes Absolute Manual 1.48 10^3/uL (1.20-3.80); Lymphocytes Percent Manual 12.0 % (20.5-60.0); Monocytes Absolute Manual 0.49 10^3/uL (0.30-0.80); Monocytes Percent Manual 4.0 % (1.7-12.0); Segmented Neut Absolute Manual 9.05 10^3/uL (1.4-6.5); Segmented Neutrophils % Manual 73.0 (43.0-75.0)
[2025-05-28 09:11] LABS: Metamyelocytes Absolute Manual 0.12; Myelocytes % Manual 1.0; Myelocytes Absolute Manual 0.12
[2025-05-28 09:12] LABS: Anisocytosis 3+
[2025-05-28] MEDS: ACETAMINOPHEN 325 MG TABLET 650 MG PO (09:22)
[2025-05-28] MEDS: 0.9 % SODIUM CHLORIDE 250 ML 10 ML IV (09:22)
[2025-05-28] MEDS: DIPHENHYDRAMINE HCL 25 MG CAPSULE PO (09:22)
[2025-05-28 10:20] VITALS: BP 137/69; PULSE 87; TEMP 36.6; O2SAT 96
[2025-05-28 10:45] VITALS: BP 134/67; PULSE 88; TEMP 36.9; O2SAT 98
[2025-05-28 11:03] VITALS: BP 137/75; PULSE 94; TEMP 36.7; O2SAT 94
[2025-05-28 12:02] VITALS: BP 149/74; PULSE 92; TEMP 36.6; O2SAT 96
[2025-06-04 08:30] VITALS: BP 147/58; PULSE 91; TEMP 37; O2SAT 96
[2025-06-04 08:42] LABS: Mean Corpuscular HGB Conc 34.5 g/dL (29.9-35.2); Mean Corpuscular Hemoglobin 33.2 pg (25.9-34.0); Mean Corpuscular Volume 96.0 fL (80.0-94.0); Platelet Count 217 10^3/uL (150-450); Red Blood Count 2.02 10^6/uL (4.70-6.10); White Blood Count 13.3 10^3/uL (4.0-11.0)
[2025-06-04 08:46] LABS: Hematocrit 19.4 % (42.0-54.0); Hemoglobin 6.7 g/dL (14.0-18.0)
--- NOTE | 2025-06-04 09:00 | PC.NURSE ---
0845 IV initiated rt antecubital. patient notified of need for 1 unit of prbc's
[2025-06-04 09:04] LABS: Segmented Neut Absolute Manual 9.17 10^3/uL (1.4-6.5); Segmented Neutrophils % Manual 69.0 (43.0-75.0)
[2025-06-04 09:05] LABS: Band Neutrophils Absolute 0.8 10^3/uL (0.0-0.3); Basophils Abs Manual 0.13 10^3/uL (0.00-0.10); Basophils Percent Manual 1.0 % (0.2-2.0); Blast % Manual 1.0; Blast Absolute Manual 0.13; Eosinophils Absolute Manual 0.13 10^3/uL (0.00-0.70); Eosinophils Percent Manual 1.0 % (0.9-7.0); Lymphocytes Absolute Manual 2.26 10^3/uL (1.20-3.80); Lymphocytes Percent Manual 17.0 % (20.5-60.0); Metamyelocytes Absolute Manual 0.13; Monocytes Absolute Manual 0.39 10^3/uL (0.30-0.80); Monocytes Percent Manual 3.0 % (1.7-12.0); Myelocytes % Manual 1.0; Myelocytes Absolute Manual 0.13
[2025-06-04 09:08] LABS: Anisocytosis 3+
[2025-06-04 09:13] LABS: Anion Gap 16.0; Blood Urea Nitrogen 17.0 mg/dL (7.0-18.0); Calcium 8.7 mg/dL (8.5-10.1); Carbon Dioxide 24.8 mmol/L (21.0-32.0); Chloride 102 mmol/L (98-107); Estimated GFR (African America >60 (>=60 mL/min/1.73m^2); Estimated GFR (Non-African Ame 60 (>=60 mL/min/1.73m^2); Glucose 109 mg/dL (74-106); Potassium 4.8 mmol/L (3.5-5.1); Sodium 138 mmol/L (136-145)
[2025-06-04] MEDS: DIPHENHYDRAMINE HCL 25 MG CAPSULE PO (09:14)
[2025-06-04] MEDS: ACETAMINOPHEN 325 MG TABLET 650 MG PO (09:14)
[2025-06-04 10:05] VITALS: BP 147/58; PULSE 91; TEMP 37; O2SAT 96
[2025-06-04 11:05] VITALS: BP 132/67; PULSE 83; TEMP 36.7; O2SAT 96
--- NOTE | 2025-06-04 11:06 | PC.NURSE ---
Tolerating prbc's without difficulty
[2025-06-04 11:51] VITALS: BP 141/72; PULSE 76; TEMP 36.8; O2SAT 98
[2025-06-11 09:06] VITALS: BP 166/71; PULSE 95; TEMP 36.8; O2SAT 95
--- NOTE | 2025-06-11 09:09 | PC.NURSE ---
Patient informs staff on arrival his bone marrow transplant is on hold, his sister cannot be a donor, stated they have 3 other prospective donors they are working up at this time.
[2025-06-11 09:13] LABS: Hemoglobin 7.5 g/dL (14.0-18.0); Mean Corpuscular HGB Conc 35.0 g/dL (29.9-35.2); Mean Corpuscular Hemoglobin 32.9 pg (25.9-34.0); Mean Corpuscular Volume 93.9 fL (80.0-94.0); Platelet Count 185 10^3/uL (150-450); Red Blood Count 2.28 10^6/uL (4.70-6.10); White Blood Count 9.7 10^3/uL (4.0-11.0)
[2025-06-11 09:19] LABS: Hematocrit 21.4 % (42.0-54.0)
[2025-06-11 09:24] LABS: Anion Gap 14.4; Blood Urea Nitrogen 15.0 mg/dL (7.0-18.0); Calcium 8.9 mg/dL (8.5-10.1); Carbon Dioxide 26.6 mmol/L (21.0-32.0); Chloride 101 mmol/L (98-107); Estimated GFR (African America >60 (>=60 mL/min/1.73m^2); Estimated GFR (Non-African Ame 56 (>=60 mL/min/1.73m^2); Glucose 105 mg/dL (74-106); Potassium 5.0 mmol/L (3.5-5.1); Sodium 137 mmol/L (136-145)
[2025-06-11 09:47] LABS: Band Neutrophils Absolute 0.4 10^3/uL (0.0-0.3); Basophils Abs Manual 0.09 10^3/uL (0.00-0.10); Basophils Percent Manual 1.0 % (0.2-2.0); Eosinophils Absolute Manual 0.00 10^3/uL (0.00-0.70); Eosinophils Percent Manual 0.0 % (0.9-7.0); Monocytes Absolute Manual 0.48 10^3/uL (0.30-0.80); Monocytes Percent Manual 5.0 % (1.7-12.0); Myelocytes % Manual 1.0; Myelocytes Absolute Manual 0.09; Segmented Neut Absolute Manual 6.98 10^3/uL (1.4-6.5); Segmented Neutrophils % Manual 72.0 (43.0-75.0)
[2025-06-11 09:48] LABS: Blast % Manual 3.0; Blast Absolute Manual 0.29; Lymphocytes Absolute Manual 1.35 10^3/uL (1.20-3.80); Lymphocytes Percent Manual 14.0 % (20.5-60.0)
[2025-06-11 09:49] LABS: Anisocytosis 2+
[2025-06-11] MEDS: LUSPATERCEPT AAMT 50 MG SUBQ (10:16)
[2025-06-11] MEDS: LUSPATERCEPT AAMT SQ (10:17)
== END 2025-06-16 23:59 | disposition home or self-care (01) ==
LOC: HEMC 08:51
PROVIDERS: PCP Family Medicine; Visit Provider Internal Medicine Hematology & Oncology
DX: D46.21 Refractory anemia with excess of blasts 1 (principal); D75.81 Myelofibrosis; D46.9 Myelodysplastic syndrome, unspecified; Z87.891 Personal history of nicotine dependence; R16.1 Splenomegaly, not elsewhere classified; R59.0 Localized enlarged lymph nodes; D68.9 Coagulation defect, unspecified; J90 Pleural effusion, not elsewhere classified; F10.90 Alcohol use, unspecified, uncomplicated; L03.115 Cellulitis of right lower limb; S81.801A Unspecified open wound, right lower leg, initial encounter
CPT/HCPCS: 36415; 36430; 80048; 80053; 85007; 85027; 86850; 86900; 86901; 86923; 96372; G0463; J0896; P9038

== ENCOUNTER 2025-06-13 11:12 | Inpatient (IN) | payer OTHER, SELFPAY ==
--- OUTSIDE RECORDS SUMMARY | 2025-04-02 05:15 | XMS_ITS ---
Author Organization The [facility] in [place] Address [address] [place] [address] Care Team Providers Care Consumer Safety Officer Name Role Phone Dewey Enriquez DO Primary Care Provider Unavail Martita Howell Unavailable [phone] REASON FOR VISIT Momelotinib (Ojjaara) oral Encounters Encounter Location Date Provider Diagnosis [facility] [address] [place] [phone] 04/02/2025 Martita Hopper Plan Of Treatment Next Appt Details Provider Name:MARTITA HOPPER , 07/02/2025 09:00:00 AM, [address] [place] [address], [phone], Provider Name:MARTITA HOPPER , 07/02/2025 09:15:00 AM, [address] [place] [address], [phone], Progress Notes * PENNY MCQUEEN RDOB:1960 (64 yo M)Acc No.[id number]:04/02/2025 UNLOCKED PROGRESS NOTE Progress Note Patient: PENNY MACHADO :?Martita Hopper M.D.:1960???Age:64 Y ???Sex:MaleDate:04/02/2025Phone:[phone]:[address] [id number]:Dewey Enriquez DO Subjective: * Chief Complaints: * 1 . Momelotinib (Ojjaara) oral. * Medical History: Objective: * Vitals: Assessment: Plan: * Treatment: * * Electronic signature of Martita Hopper MD, [id number] on 06/13/2025 at 11:34 AM ESTSign off status: PendingVisit Status:?PEN (Pending) * Provider: Sherry Hopper M.D. Date: 0 04/02/2025 Generated for Printing/Faxing/eTransmitting on:?06/13/2025 11:34 AM EST
--- OUTSIDE RECORDS SUMMARY | 2025-04-09 03:45 | XMS_ITS ---
Author Organization [facility] in [place] Address [address] [place] [address] Care Team Providers Care Business Segment Manager Name Role Phone Dewey Enriquez DO Primary Care Provider Unavail Martita Howell Unavailable [phone] REASON FOR VISIT MD Encounters Encounter Location Date Provider Diagnosis [facility] [address] [place] [phone] 04/09/2025 Martita Hopper Plan Of Treatment Next Appt Details Provider Name:MARTITA HOPPER , 07/02/2025 09:00:00 AM, [address] [place] [address], [phone], Provider Name:MARTITA HOPPER , 07/02/2025 09:15:00 AM, [address] [place] [address], [phone], Progress Notes * PENNY MCQUEEN RDOB:1960 (64 yo M)Acc No.[id number]:04/09/2025 UNLOCKED PROGRESS NOTE Progress Notes Patient: PENNY MACHADO :?Martita Hopper M.D.:1960???Age:64 Y ???Sex:MaleDate:04/09/2025Phone:[phone]:[address] [id number]:Dewey Enriquez DO Subjective: * Chief Complaints: * 1 . MD. * Medical History: Objective: * Vitals: Assessment: Plan: * Treatment: * * Electronic signature of Martita Hopper MD, [id number] on 06/13/2025 at 11:32 AM ESTSign off status: PendingVisit Status:?CONFPHONE (Voice) * Provider: Sherry Hopper M.D. Date: 0 04/09/2025 Generated for Printing/Faxing/eTransmitting on:?06/13/2025 11:32 AM EST
--- OUTSIDE RECORDS SUMMARY | 2025-04-09 04:00 | XMS_ITS ---
Author Organization The [facility] in [place] Address [address] [place] [address] Care Team Providers Care [employer] Officer Name Role Phone Dewey Enriquez DO Primary Care Provider Unavail Martita Howell Unavailable [phone] REASON FOR VISIT CS30 Encounters Encounter Location Date Provider Diagnosis The [facility] [address] [place] [phone] 04/09/2025 Martita Hopper Plan Of Treatment Next Appt Details Provider Name:MARTITA HOPPER , 07/02/2025 09:00:00 AM, [address] [place] [address], [phone], Provider Name:MARTITA HOPPER , 07/02/2025 09:15:00 AM, [address] [place] [address], [phone], Progress Notes * PENNY MCQUEEN RDOB:1960 (64 yo M)Acc No.[id number]:04/09/2025 UNLOCKED PROGRESS NOTE Progress Note Patient: PENNY MACHADO :?Martita Hopper M.D.:1960???Age:64 Y ???Sex:MaleDate:04/09/2025Phone:[phone]:[address] [id number]:Dewey Enriquez DO Subjective: * Chief Complaints: * 1 . CS30. * Medical History: Objective: * Vitals: Assessment: Plan: * Treatment: * * Electronic signature of Martita Hopper MD, [id number] on 06/13/2025 at 11:33 AM ESTSign off status: PendingVisit Status:?PEN (Pending) * Provider: Sherry Hopper M.D. Date: 0 04/09/2025 Generated for Printing/Faxing/eTransmitting on:?06/13/2025 11:33 AM EST
--- OUTSIDE RECORDS SUMMARY | 2025-04-16 06:45 | XMS_ITS ---
Author Organization The [facility] in [place] Address [address] [place] [address] Care Team Providers Care Protective Signal Operator Name Role Phone Dewey Enriquez DO Primary Care Provider Unavail KEISHA Caballero Unavailable [phone] REASON FOR VISIT MD Encounters Encounter Location Date Provider Diagnosis [facility] [address] [place] [phone] 04/16/2025 KEISHA RICE Plan Of Treatment Next Appt Details Provider Name:KEISHA RICE , 07/02/2025 09:00:00 AM, [address] [place] [address], [phone], Provider Name:KEISHA RICE , 07/02/2025 09:15:00 AM, [address] [place] [address], [phone], Progress Notes * PENNY MCQUEEN RDOB:1960 (64 yo M)Acc No.[id number]:04/16/2025 UNLOCKED PROGRESS NOTE Progress Notes Patient: PENNY MACHADO :?KEISHA RICE M.D.:1960???Age:64 Y ???Sex:MaleDate:04/16/2025Phone:[phone]:[address] [id number]:Dewey Enriquez DO Subjective: * Chief Complaints: * 1 . MD. * Medical History: Objective: * Vitals: Assessment: Plan: * Treatment: * * Electronic signature of KEISHA RICE MD on 06/13/2025 at 11:33 AM ESTSign off status: PendingVisit Status:?PEN (Pending) * Provider: Sherry RICE M.D. Date: 0 04/16/2025 Generated for Printing/Faxing/eTransmitting on:?06/13/2025 11:33 AM EST
--- OUTSIDE RECORDS SUMMARY | 2025-05-21 03:45 | XMS_ITS ---
Author Organization The [facility] in [place] Address [address] [facility] [place] [address] Care Team Providers Care Wellhead Pumper Name Role Phone Dewey Enriquez DO Primary Care Provider Unavail Martita Howell Unavailable [phone] REASON FOR VISIT MD Encounters Encounter Location Date Provider Diagnosis [facility] [address] [place] [phone] 05/21/2025 Martita Hopper Plan Of Treatment Next Appt Details Provider Name:MARTITA HOPPER , 07/02/2025 09:00:00 AM, [address] [place] [address], [phone], Provider Name:MARTITA HOPPER , 07/02/2025 09:15:00 AM, [address] [place] [address], [phone], Progress Notes * PENNY MCQUEEN RDOB:1960 (64 yo M)Acc No.[id number]:05/21/2025 UNLOCKED PROGRESS NOTE Progress Notes Patient: PENNY MACHADO :?Martita Hopper M.D.:1960???Age:64 Y ???Sex:MaleDate:05/21/2025Phone:[phone]:[address] [id number]:Dewey Enriquez DO Subjective: * Chief Complaints: * 1 . MD. * Medical History: Objective: * Vitals: Assessment: Plan: * Treatment: * * Electronic signature of Martita Hopper MD, [id number] on 06/13/2025 at 11:32 AM ESTSign off status: PendingVisit Status:?PEN (Pending) * Provider: Sherry Hopper M.D. Date: 07/21/2024 Generated for Printing/Faxing/eTransmitting on:?06/13/2025 11:32 AM EST
--- OUTSIDE RECORDS SUMMARY | 2025-05-21 04:00 | XMS_ITS ---
Author Organization The [facility] in [place] Address [address] [facility] [place] [address] Care Team Providers Care Rubber Off Name Role Phone Dewey Enriquez DO Primary Care Provider Unavail Martita Howell Unavailable [phone] REASON FOR VISIT Luspatercept-aamt (Reblozyl) Encounters Encounter Location Date Provider Diagnosis The [facility] [address] [place] [phone] 05/21/2025 Martita Hopper Plan Of Treatment Next Appt Details Provider Name:MARTITA HOPPER , 07/02/2025 09:00:00 AM, [address] [place] [address], [phone], Provider Name:MARTITA HOPPER , 07/02/2025 09:15:00 AM, [address] [place] [address], [phone], Progress Notes * PENNY MCQUEEN RDOB:1960 (64 yo M)Acc No.[id number]:05/21/2025 UNLOCKED PROGRESS NOTE Progress Note Patient: PENNY MACHADO :?Martita Hopper M.D.:1960???Age:64 Y ???Sex:MaleDate:05/21/2025Phone:[phone]:[address] [id number]:Dewey Enriquez, Subjective: * Chief Complaints: * 1 . Luspatercept-aamt (Reblozyl). * Medical History: Objective: * Vitals: Assessment: Plan: * Treatment: * * Electronic signature of Martita Hopper MD, [id number] on 06/13/2025 at 11:32 AM ESTSign off status: PendingVisit Status:?PEN (Pending) * Provider: Sherry Hopper M.D. Date: 07/21/2024 Generated for Printing/Faxing/eTransmitting on:?06/13/2025 11:32 AM EST
--- OUTSIDE RECORDS SUMMARY | 2025-05-21 04:00 | XMS_ITS ---
Author Organization [facility] in [place] Address [address] [place] [address] Care Team Providers Care Log Yard Derrick Operator Name Role Phone Dewey Enriquez DO Primary Care Provider Unavail KEISHA Caballero Unavailable [phone] REASON FOR VISIT MD Encounters Encounter Location Date Provider Diagnosis [facility] [address] [place] [phone] 05/21/2025 KEISHA RICE Plan Of Treatment Next Appt Details Provider Name:KEISHA RICE , 07/02/2025 09:00:00 AM, [address] [place] [address], [phone], Provider Name:KEISHA RICE , 07/02/2025 09:15:00 AM, [address] [place] [address], [phone], Progress Notes * PENNY MCQUEEN RDOB:1960 (64 yo M)Acc No.[id number]:05/21/2025 UNLOCKED PROGRESS NOTE Progress Notes Patient: PENNY MACHADO :?KEISHA RICE M.D.:1960???Age:64 Y ???Sex:MaleDate:05/21/2025Phone:[phone]:[address] [phone]:Dewey Enriquez DO Subjective: * Chief Complaints: * 1 . MD. * Medical History: Objective: * Vitals: Assessment: Plan: * Treatment: * * Electronic signature of KEISHA RICE MD on 06/13/2025 at 11:34 AM ESTSign off status: PendingVisit Status:?CANC (Cancelled) * Provider: Sherry RICE M.D. Date: 07/21/2024 Generated for Printing/Faxing/eTransmitting on:?06/13/2025 11:34 AM EST
--- OUTSIDE RECORDS SUMMARY | 2025-05-21 04:15 | XMS_ITS ---
Author Organization [facility] in [place] Address [address] [place] [address] Care Team Providers Care Level Vial Grinder Name Role Phone Dewey Enriquez DO Primary Care Provider Unavail KEISHA Caballero Unavailable [phone] REASON FOR VISIT Luspatercept-aamt (Reblozyl) Encounters Encounter Location Date Provider Diagnosis [facility] [address] [place] [phone] 05/21/2025 KEISHA RICE Plan Of Treatment Next Appt Details Provider Name:KEISHA RICE , 07/02/2025 09:00:00 AM, [address] [place] [address], [phone], Provider Name:KEISHA RICE , 07/02/2025 09:15:00 AM, [address] [place] [address], [phone], Progress Notes * PENNY MCQUEEN RDOB:1960 (64 yo M)Acc No.[id number]:05/21/2025 UNLOCKED PROGRESS NOTE Progress Note Patient: PENNY MACHADO :JAMAL RICE M.D.:1960???Age:64 Y ???Sex:MaleDate:05/21/2025Phone:[phone]:[address] [phone]:Dewey Enriquez DO Subjective: * Chief Complaints: * 1 . Luspatercept-aamt (Reblozyl). * Medical History: Objective: * Vitals: Assessment: Plan: * Treatment: * * Electronic signature of KEISHA RICE MD on 06/13/2025 at 11:33 AM ESTSign off status: PendingVisit Status:?CANC (Cancelled) * Provider: Sherry RICE M.D. Date: 07/21/2024 Generated for Printing/Faxing/eTransmitting on:?06/13/2025 11:33 AM EST
--- OUTSIDE RECORDS SUMMARY | 2025-05-29 14:32 | XMS_ITS | Encounter Summary ---
Author Organization [facility] Address [address] [place] [address] Phone Care Team Providers Care Cadastral Surveyor Name Role Phone Rhona Atwood MD Unavailable [phone] Martita Hopper MD Unavailable [phone] Generic Provider, No Assigned Pcp MD Primary Car e Provider Unavailable Kirit Hilliard MD Unavailable [phone] Reason for Referral * PFT (Routine) - Pending ReviewSpecialtyDiagnoses / ProceduresReferred By ContactReferred To Contact Diagnoses Primary myelofibrosis (Multi) Stem cell transplant candidate Procedures Complete Pulmonary Function Test (Spirometry/DLCO/Lung Volumes) [place] [address] [place] [address] Phone: tel: fax: Referral IDStatusReasonStart DateExpiration DateVisits RequestedVisits [id number] [id number]/ Reason for Visit * PFT (Routine) - Pending ReviewSpecialtyDiagnoses / ProceduresReferred By ContactReferred To Contact Diagnoses Primary myelofibrosis (Multi) Stem cell transplant candidate Procedures Complete Pulmonary Function Test (Spirometry/DLCO/Lung Volumes) [place] [address] [place] [address] Phone: tel: fax: Referral IDStaAnton DateExpiration DateVisits RequestedVisits [id number] Encounter Details DateTypeDepartmentCare Team (Latest Contact Info)Uanrplrwmmk00/12/2025 2:32 PM EST - 05/29/2025 11:[address] [facility] [address] [facility] [address]th [place] [address] Primary myelofibrosis (Multi); Stem cell transplant candidate Discharge Disposition: Home Social History Tobacco UseTypesPacks/DayYears UsedDateSmoking Tobacco: FdreivTfszvqblhc398.2 1984 - 09/2024Smokeless Tobacco: NeverAlcohol UseStandard Drinks/WeekCommentsYes 2 (1 standard drink = 0.6 oz pure alcohol)PHQ-2AnswerDate RecordedPatient Health Questionnaire-2 [id number], Afraid, Rape, and Kick questionnaireAnswerDate RecordedWithin the last year, have you been afraid of your partner or ex-partner?No03/26/2025Within the last year, have you been humiliated or emotionally abused in other ways by your partner or ex-partner?No 03/26/2025Within the last year, have you been kicked, hit, slapped, or otherwise physically hurt by your partner or ex-partner?No03/26/2025Within the last year, have you been raped or forced to have any kind of sexual activity by your part ner or ex-partner?No03/26/2025Social Connection and Isolation PanelAnswerDate RecordedIn a typical week, how many times do you talk on the phone with family, friends, or neighbors?Three times a week03/26/2025How often do you get together with friends or relatives?Once a week03/26/2025How often do you attend yazidi or baptist services?1 to 4 times per year03/26/2025Do you belong to any clubs or organizations such as yazidi groups, unions, fraternal or athletic groups, or school groups?No03/26/2025How often do you attend meetings of the clubs or organizations you belong to?Never03/26/2025re you , , , , never , or living with a partner?Ywouqbr9603/26/2025UDIT-C AnswerDate RecordedQ1: How often do you have a drink containing alcohol?4 or more times a week03/26/2025Q2: How many drinks containing alcohol do you have on a typical day when you are drinking?1 or Q3: How often do you have six or more drinks on one occasion?Never03/26/2025Overall Financial Resource Strain (CARDIA)AnswerDate RecordedHow hard is it for you to pay for the very basics like food, housing, medical care, and heating?Somewhat hard03/26/2025 [facility] of Occupational Health - Occupational Stress Questionnaire AnswerDate RecordedDo you feel stress - tense, restless, nervous, or anxious, or unable to sleep at night because yourmind is troubled all the time - these days? Not at all03/26/2025Exercise Vital SignAnswerDate RecordedOn average, how many days per week do you engage in moderate to strenuous exercise (like a brisk wal k)?0 days03/26/2025Minutes of Exercise per SessionNot on file03/26/2025PRAPARE - TransportationAnswerDate RecordedIn the past 12 months, has lack of transportation kept you from medical appointments or from getting medications?No 03/26/2025In the past 12 months, has lack of transportation kept you from meetings, work, or from getting things needed for daily living?No03/26/2025 Housing Stability Vital SignAnswerDate RecordedIn the last 12 months, was there a time when you were not able to pay the mortgage or rent on time?No03/26/2025 Number of Times Moved in the Last YearNot on file03/26/2025t any time in the past 12 months, were you homeless or living in a long term (including now)?No 03/26/2025B1300 Health LiteracyAnswerDate RecordedHow often do you need to have someone help you when you read instructions, pamphlets, or other written material from your doctor or pharmacy?Askffoftj96/09/2025Digital Health Equity ScreeningAnswerDate RecordedWhich of the following do you know how to use AND have access to every day? (choose all that apply)Desktop computer, laptop computer, or tablet with broadband internet gqztqdqofy22/09/2025Which of the following would you like to get connected to in order to receive a discount or for free? 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 factory work ([employer])Not on fileNot on fileNot on filedocumented as of this encounter Functional Status * BPAnswerDate of AbkwtrbkmmAiokyu947/5305/29/2025 1:13 PM Natividad Whiteside MA * PulseAnswerDate of TxutwybjtrAnubfq1458/12/2025 1:13 PM Natividad Whiteside MA * QuestionAnswerDate of AssessmentAuthorHistory of Falling, Immediate or Within 3 Isatgm318/12/2025 1:14 PM Natividad Whiteside MAMorse Fall Risk Score0 05/29/2025 1:14 PM Natividad Whiteside MA documented as of this encounter Medications at Time of Discharge MedicationSigDispense QuantityRefillsLast FilledStart DateEnd Date ascorbic acid (Vitamin C) 1,000 mg tablet Take 1 tablet (1,000 mg) by mouth once daily.03/07/2025 b complex 0.4 mg tablet Take 1 tablet by mouth once daily. cholecalciferol (Vitamin D-3) 10 mcg (400 units) capsule Take 1 capsule (10 mcg) by mouth once daily. Ojjaara 100 mg tablet tablet Take 2 tablets (200 mg) by mouth once daily.10/16/2024 prochlorperazine (Compazine) 5 mg tablet take 1 tablet by mouth twice daily as needed for nausea rosuvastatin (Crestor) 10 mg tablet Take 1 tablet (10 mg) by mouth once daily.06/29/2024 triamcinolone (Kenalog) 0.1 % cream Apply to affected area on trunk and extremities EVERY DAY to TWICE DAILY AQXEYM5511/30/2024documented as of this encounter Plan of Treatment DateTypeDepartmentCare Team (Latest Contact Info)Dwsutwwkmev96/03/2025 1:00 PM ESTOffice Visit [facility] [address] [facility] [address] [place] [address] [place] [address] [place] [address] 06/24/2025 9:00 AM [facility]In[facility] [address] [place] [phone] 06/24/2025 10:10 AM ESTOffice Visit [facility] [address] 1[address] [place] [phone] Chapo Navarro MD [address] [place] [address] 07/01/2025 8:30 AM ESTAppointment [facility] [address] [facility] [address] [place] [phone] 07/01/2025 9:45 AM ESTAppointment [facility] [address] [facility] [address] [place] [phone] documented as of this encounter Procedures Procedure NamePriorityDate/TimeAssociated DiagnosisCommentsHC BREATHING CAPACITY TEST - SPIROMETRY WITHOUT ACVEXZIQAJMMRTYmlfzcw69/12/2025 3:20 PM EST Primary myelofibrosis (Multi) Stem cell transplant candidate documented in this encounter Results * Complete Pulmonary Function Test (Spirometry/DLCO/Lung Volumes) (05/29/2025 3:20 PM EST)ComponentValueRef RangeTest MethodAnalysis TimePerformed At Pathologist SignatureFVC3.94MGC ASCENTFVC%102MGC ZQXEBKJVJ35.70MGC ASCENTFEV1% 91MGC ASCENTFEV1/FVC0.69MGC ASCENTPEF6.80MGC ASCENTPEF%82MGC ASCENTFEF 25-75 1.28MGC ASCENTFEF 25-75%51MGC ASCENTPIF3.14MGC PKZUNENRR26.90MGC ASCENTTPEF 0.09MGC ASCENTBEV0.11MGC ASCENTVC3.94MGC ASCENTVC%102MGC ASCENTIC2.07MGC ASCENTIC%63MGC ASCENTERV1.86MGC ASCENTERV%161MGC ASCENTTGV3.96MGC ASCENTTGV% 112MGC ASCENTRV2.09MGC ASCENTRV%91MGC ASCENTTLC6.03MGC ASCENTTLC%89MGC ASCENT RV/MVQ19QIP ASCENTDLCO (Hb unc)10.84MGC ASCENTDLCO% (Hb unc)43MGC ASCENTDLCO (Hb cor)10.66MGC ASCENTDLCO% (Hb cor)63MGC ASCENTDLCO/VA2.11MGC ASCENTVA5.05 MGC ASCENTBHT9.99MGC ASCENTDLCO (IVC)3.20MGC ASCENTSpecimen (Source)Anatomical Location / LateralityCollection Method / VolumeCollection TimeReceived Time 05/29/2025 2:41 PM EST05/29/2025 2:41 PM EST Narrative Authorizing ProviderResult TypeResult StatusRebecca B Klisovic MDPFT ORDERABLES Final ResultPerforming OrganizationAddressCity/State/ZIP CodePhone Number MGC ASCENT documented in this encounter Visit Diagnoses Diagnosis Primary myelofibrosis (Multi) Myelofibrosis with myeloid metaplasia Stem cell transplant candidate documented in this encounter Additional Health Concerns InfectionOnset DateLast IndicatedResolved TimeCOVID-19 Rule-Out05/29/2025 8:40 PM ESTAssessmentNoted TimeA fall risk assessment has been completed for the ezlqxld7503/26/2025 2:03 PM EDTdocumented as of this encounter Care Teams Team MemberRelationshipSpecialtyStart DateEnd Date Generic Provider, No Assigned Pcp, [place] [address] PCP - GeneralGeneral Gteezxmq95/7/25 [place] [address] [place] [address] BMT OncologistHematology and Oncology03/26/25 Martita Hopper MD [address] [place] [address] [address] [place] [address] Referring PhysicianOncology04/01/25 [place] [address] Department [place] [address] Radiation OncologistRadiation Minlpsil37/10/25documented as of this encounter
--- OUTSIDE RECORDS SUMMARY | 2025-06-06 11:20 | XMS_ITS | Encounter Summary ---
Author Organization [facility] Address [address] [place] [address] Phone Care Team Providers Care Hr Business Partner Name Role Phone Rhona Atwood MD Unavailable [phone] Martita Hopper MD Unavailable [phone] Generic Provider, No Assigned Pcp MD Primary Car e Provider Unavailable Kirit Hilliard MD Unavailable [phone] Encounter Details DateTypeDepartmentCare Team (Latest Contact Info)Vmtuilixcrn06/20/2025 11:[address] [facility] [address] [place] [phone] Primary myelofibrosis (Multi); Stem cell transplant candidate Social History Tobacco UseTypesPacks/DayYears UsedDateSmoking Tobacco: QsncwxCnybhjncyu031.2 1984 - 09/2024Smokeless Tobacco: NeverAlcohol UseStandard Drinks/WeekCommentsYes 2 (1 standard drink = 0.6 oz pure alcohol)PHQ-2AnswerDate RecordedPatient Health Questionnaire-2 Xtote01908/06/2024Humiliation, Afraid, Rape, and Kick questionnaireAnswerDate RecordedWithin the [...] sexual activity by your part ner or ex-partner?03/26/2025Social Connection and Isolation PanelAnswerDate RecordedIn a typical week, how many times do you talk on the phone with family, friends, or neighbors?Three times a week03/26/2025How often do you get together with friends or relatives?Once a week03/26/2025How often do you attend buddhism or latter-day services?1 to 4 times per year03/26/2025Do you belong to any clubs or organizations such as buddhism groups, unions, [employer] or athletic groups, or school groups?No03/26/2025How often do you attend meetings of the clubs or organizations you belong to?Never03/26/2025re you , , , , never , or living with a partner?Ldccgrv2003/26/2025UDIT-C AnswerDate RecordedQ1: How often do you have [...] food, housing, medical care, and heating?Somewhat hard03/26/2025 [place] [employer] - Occupational Stress Questionnaire [...] were you homeless or living in a longterm (including now)?No [id number] Health LiteracyAnswerDate RecordedHow often do you need to have someone help you when you read instructions, pamphlets, or other written material from your doctor or pharmacy?Bszdhmiht45/09/2025Digital Health Equity ScreeningAnswerDate RecordedWhich of the following do you know how to use AND have access to every day? (choose all that apply)Desktop computer, laptop computer, or tablet with broadband internet iycuwjccxq37/09/2025Which of the following would you like to get connected to in order to receive a discount or for free? 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 ([employer])Not on fileNot on fileNot on filedocumented as of this encounter Functional Status * Over the past 2 weeks, how often have you been bothered by any of the following problems?QuestionAnswerDate of AssessmentAuthorLittle interest or pleasure in doing thingsNot at all06/06/2025 11:48 AM Juana Penny RN Feeling down, depressed, or hopelessNot at all06/06/2025 11:48 AM Juana Penny RNPatient Health Questionnaire-2 Novlh21308/06/2024 11:48 AM Juana Penny RN * Calculated C-SSRS Risk Score (Lifetime/Recent)AnswerDate of AssessmentAuthorNo Risk Lkzlsbmmq62/20/2025 11:48 AM Juana Penny RN * [place] Suicide Severity Rating Scale (Screener/Recent Self-Report)Question AnswerDate of AssessmentAuthor1. Wish to be (Past 1 Month)No06/06/2025 11:48 AM Juana Penny RN2. Non-Specific Active Suicidal Thoughts (Past 1 Month)No06/06/2025 11:48 AM Juana Penny RN6. Suicidal Behavior (Lifetime)No06/06/2025 11:48 AM Juana Penny RN documented as of this encounter Plan of Treatment DateTypeDepartmentCare Team (Latest Contact Info)Halnwazqumi90/03/2025 1:00 PM ESTOffice Visit Ely Andres Afton [address] [facility] [address] [place] [address] [place] [address] [place] [address] 06/24/2025 9:00 AM ESTInfusion [facility] [address] [place] [phone] 06/24/2025 10:10 AM ESTOffice Visit [facility] [address] [place] [phone] Chapo Navarro MD [address] JANE Carvalho, [address] [place] [phone] 07/01/2025 8:30 AM ESTAppointment [facility] [address] [facility] [address] [place] [phone] 07/01/2025 9:45 AM ESTAppointment [facility] [address] [facility] [address] [place] [phone] documented as of this encounter Procedures Procedure NamePriorityDate/TimeAssociated DiagnosisCommentsCBC WITH AUTO CSIZFYGXGXFIWnujepe56/20/2025 11:17 AM EST Primary myelofibrosis (Multi) Stem cell transplant candidate MANUAL WCWONTEVMBZIIjsjjrm21/20/2025 11:17 AM EST Primary myelofibrosis (Multi) Stem cell transplant candidate SRLETQWPNGtenmwk87/20/2025 11:17 AM EST Primary myelofibrosis (Multi) Stem cell transplant candidate COMPREHENSIVE METABOLIC SRNJYJfpxjhx17/20/2025 11:17 AM EST Primary myelofibrosis (Multi) Stem cell transplant candidate documented in this encounter Results * (ABNORMAL) Manual Differential (06/06/2025 11:17 AM EST)ComponentValueRef RangeTest MethodAnalysis TimePerformed AtPathologist SignatureNeutrophils %, Xgqebj87.040.0 - 80.0 %06/06/2025 12:[address] [facility] Comment:Percent differential counts (%) should be interpreted in the context of the absolute cell counts (cells/uL).Bands %, Manual5.00.0 - 5.0 %06/06/2025 12:[address] [facility] LABLymphocytes %, Dflmxy92.013.0 - 44.0 %06/06/2025 12:[address] [facility] LABMonocytes %, Manual6.02.0 - 10.0 %06/06/2025 12:[address] [facility] LABEosinophils %, Manual1.00.0 - 6.0 %06/06/2025 12:[address] [facility] Basophils %, Manual1.00.0 - 2.0 %06/06/2025 12:[address] [facility] LABMetamyelocytes %, Manual1.00.0 - 0.0 %06/06/2025 12:[address] [facility] LABMyelocytes %, Manual2.00.0 - 0.0 %06/06/2025 12:[address] [facility] LABBlasts %, Manual6.0(H)0.0 - 0.0 %06/06/2025 12:[address] [facility] LABSeg Neutrophils Absolute, Manual8.11 (H)1.20 - 7.00 x10*3/uL06/06/2025 12:[address] [facility] Bands Absolute, Manual0.610.00 - 0.70 x10*3/uL06/06/2025 12:[address] [facility] LABLymphocytes Absolute, Manual1.331.20 - 4.80 x10*3/uL 06/06/2025 12:[address] [facility] LABMonocytes Absolute, Manual 0.730.10 - 1.00 x10*3/uL06/06/2025 12:[address] [facility] Eosinophils Absolute, Manual0.120.00 - 0.70 x10*3/uL06/06/2025 12:[address] [facility] LABBasophils Absolute, Manual0.12(H)0.00 - 0.10 x10*3/uL 06/06/2025 12:[address] [facility] LABMetamyelocytes Absolute, Manual0.120.00 - 0.00 x10*3/uL06/06/2025 12:[address] [facility] LABMyelocytes Absolute, Manual0.240.00 - 0.00 x10*3/uL06/06/2025 12:34 PM [facility] LABBlasts Absolute, Manual0.73(H)0.00 - 0.00 x10*3/uL06/06/2025 12:[address] [facility] LABTotal Cells Hjolfzx16769/20/2025 12:[address] [facility] LABNeutrophils Absolute, Manual8.72(H)1.20 - 7.70 x10*3/uL06/06/2025 12:[address] [facility] LABRBC MorphologySee Below06/06/2025 12:[address] [facility] CJHMtntfpqckzyhsWtln81/20/2025 12:[address] [facility] LABRBC YpajsmegxWfx18/20/2025 12:[address] [facility] JphlvtgyzoLpc06/20/2025 12:[address] [facility] LABTeardrop DrfsrBgn14/20/2025 12:[address] [facility] LABSpecimen (Source) Anatomical Location / LateralityCollection Method / VolumeCollection Time Received TimeBloodVenous blood specimen / UnknownVenipuncture / Unknown 06/06/2025 11:17 AM EST06/06/2025 11:17 AM EST Narrative Authorizing ProviderResult TypeResult StatusRebecca Kayode LEE BLOOD ORDERABLESFinal ResultPerforming OrganizationAddressCity/State/ZIP CodePhone Number [facility] [address] [place] [address] * Magnesium (06/06/2025 11:17 AM EST)ComponentValueRef RangeTest MethodAnalysis TimePerformed AtPathologist SignatureMagnesium1.801.60 - 2.40 mg/dL LAB CHEMISTRY METHOD 06/06/2025 12:[address] [facility] LABSpecimen (Source)Anatomical Location / LateralityCollection Method / VolumeCollection TimeReceived TimeBlood Venous blood specimen / UnknownVenipuncture / Pzljwqk6906/06/2025 11:17 AM EST 06/06/2025 11:17 AM EST Narrative Authorizing ProviderResult TypeResult StatusRebecca Kayode LEE BLOOD ORDERABLESFinal ResultPerforming OrganizationAddressCity/State/ZIP CodePhone Number [facility] [address] [place] [address] * (ABNORMAL) Comprehensive Metabolic Panel (06/06/2025 11:17 AM EST)Component ValueRef RangeTest MethodAnalysis TimePerformed AtPathologist SignatureGlucose 9574 - 99 mg/dL LAB CHEMISTRY METHOD 06/06/2025 12:[address] [facility] QHGFtktad799(L)136 - 145 mmol/L LAB CHEMISTRY METHOD 06/06/2025 12:[address] [facility] LABPotassium4.83.5 - 5.3 mmol/L LAB CHEMISTRY METHOD 06/06/2025 12:[address] [facility] DMILhsvsmql14557 - 107 mmol/L LAB CHEMISTRY METHOD 06/06/2025 12:[address] [facility] NJTPwpxmjxbrbm3560 - 32 mmol/L LAB CHEMISTRY METHOD 06/06/2025 12:[address] [facility] LABComment:Bicarbonate results may be falsely elevated when Lactate Dehydrogenase (LDH) concentrations exceed 2 ,000 U/L due to a temporary reagent manufacturing issue. If significantly elevated LDH levels are suspected, interpret bicarbonate results with caution, correlate with the patient???s clinical status, and consider confirming CO2 values using a blood gas analyzer.Anion Wbm7303 - 20 mmol/L LAB CHEMISTRY METHOD 06/06/2025 12:[address] [facility] LABUrea Oajtayvy324 - 23 mg/dL LAB CHEMISTRY METHOD 06/06/2025 12:[address] [facility] LABCreatinine1.060.50 - 1.30 mg/dL LAB CHEMISTRY METHOD 06/06/2025 12:[address] [facility] JVVyYQA42>60 mL/min/1.73m*2 LAB CHEMISTRY METHOD 06/06/2025 12:[address] [facility] LABComment: Calculations of estimated GFR are performed using the 2020 CKD-EPI Study Refit equation without therace variable for the IDMS-Traceable creatinine methods. https://jasn.asnjournals.org/content/early//ASN.5645453490 Calcium9.38.6 - 10.3 mg/dL LAB CHEMISTRY METHOD 06/06/2025 12:[address] [facility] LABAlbumin4.53.4 - 5.0 g/dL LAB CHEMISTRY METHOD 06/06/2025 12:[address] [facility] LABAlkaline Iljbwbhglqm5389 - 136 U/L LAB CHEMISTRY METHOD 06/06/2025 12:[address] [facility] LABTotal Protein8.16.4 - 8.2 g/dL LAB CHEMISTRY METHOD 06/06/2025 12:[address] [facility] KUASHL117 - 39 U/L LAB CHEMISTRY METHOD 06/06/2025 12:[address] [facility] LABBilirubin, Total0.90.0 - 1.2 mg/dL LAB CHEMISTRY METHOD 06/06/2025 12:[address] [facility] EOYWBB4821 - 52 U/L LAB CHEMISTRY METHOD 06/06/2025 12:[address] [facility] LABComment:Patients treated with Sulfasalazine may generate falsely decreased results for ALT.Specimen (Source)Anatomical Location / LateralityCollection Method / VolumeCollection TimeReceived TimeBloodVenous blood specimen / UnknownVenipuncture / Unknown 06/06/2025 11:17 AM EST06/06/2025 11:17 AM EST Narrative Authorizing ProviderResult TypeResult StatusRebecca Kayode Atwood [facility] BLOOD ORDERABLESFinal ResultPerforming OrganizationAddressCity/State/ZIP CodePhone Number [facility] [address] [place] [address] * (ABNORMAL) CBC and Auto Differential (06/06/2025 11:17 AM EST)ComponentValue Ref RangeTest MethodAnalysis TimePerformed AtPathologist GxlvmqaanOKM71.1(H) 4.4 - 11.3 x10*3/uL LAB HEMATOLOGY METHOD 06/06/2025 12:[address] [facility] LABnRBC0.4(H)0.0 - 0.0 /100 WBCs LAB HEMATOLOGY METHOD 06/06/2025 12:[address] [facility] LABRBC2.56(L)4.50 - 5.90 x10*6/uL LAB HEMATOLOGY METHOD 06/06/2025 12:[address] [facility] LABHemoglobin8.1(L)13.5 - 17.5 g/dL LAB HEMATOLOGY METHOD 06/06/2025 12:[address] [facility] XPXHmctyfvvnj44.5(L)41.0 - 52.0 % LAB HEMATOLOGY METHOD 06/06/2025 12:[address] [facility] ORXZVB2536 - 100 fL LAB HEMATOLOGY METHOD 06/06/2025 12:[address] [facility] OQIUIU54.626.0 - 34.0 pg LAB HEMATOLOGY METHOD 06/06/2025 12:[address] [facility] LKSBNTF92.532.0 - 36.0 g/dL LAB HEMATOLOGY METHOD 06/06/2025 12:[address] [facility] XNVTBP85.7(H)11.5 - 14.5 % LAB HEMATOLOGY METHOD 06/06/2025 12:[address] [facility] JNYUtxnorgcw677(L)150 - 450 x10*3/uL LAB HEMATOLOGY METHOD 06/06/2025 12:[address] [facility] LABImmature Granulocytes %, Automated8.3(H)0.0 - 0.9 % LAB HEMATOLOGY METHOD 06/06/2025 12:[address] [facility] LABComment:Immature Granulocyte Count (IG) includes promyelocytes, myelocytes and metamyelocytes but does not i nclude bands. Percent differential counts (%) should be interpreted in the context of the absolute cell counts (cells/UL).Immature Granulocytes Absolute, Automated1.01(H)0.00 - 0.70 x10*3/uL LAB HEMATOLOGY METHOD 06/06/2025 12:[address] [facility] LABSpecimen (Source)Anatomical Location / LateralityCollection Method / VolumeCollection TimeReceived TimeBlood Venous blood specimen / UnknownVenipuncture / Nnqrexw8106/06/2025 11:17 AM EST 06/06/2025 11:17 AM EST [facility] - 06/06/2025 12:34 PM EST The previously reported component Neutrophils % is no longer being reported.The previously reported component Lymphocytes % is no longer being reported.The previously reported component Monocytes % is no longer being reported.The previously reported component Eosinophils % is no longer being reported.The previously reported component Basophils % is no longer being reported.The previously reported component Absolute Neutrophils is no longer being reported.The previously reported component Absolute Lymphocytes is no longer being reported.The previously reported component Absolute Monocytes is no longer being reported.The previously reported component Absolute Eosinophils is no longer being reported.The previously reported component Absolute Basophils is no longer being reported. Authorizing ProviderResult TypeResult StatusRebecjacqueline Atwood MDLAB BLOOD ORDERABLESFinal ResultPerforming OrganizationAddressCity/State/ZIP CodePhone Number [facility] [address] [place] [address] documented in this encounter Visit Diagnoses Diagnosis Primary myelofibrosis (Multi) Myelofibrosis with myeloid metaplasia Stem cell transplant candidate documented in this encounter Additional Health Concerns AssessmentNoted TimeA fall risk assessment has been completed for the patient 06/06/2025 11:48 AM ESTdocumented as of this encounter Care Teams Team MemberRelationshipSpecialtyStart DateEnd Date Generic Provider, No [place] [address] PCP - GeneralGeneral Umpjankc88/7/25 [place] [address] [place] [address] BMT OncologistHematology and Oncology03/26/25 Martita Hopper MD [address] [place] [address] [address] [place], [place] [id number] Referring PhysicianOncology04/01/25 [place] [address] [facility] Department [place] [address] Radiation OncologistRadiation Anlgfpxo52/10/25documented as of this encounter
--- OUTSIDE RECORDS SUMMARY | 2025-06-06 11:29 | XMS_ITS | Encounter Summary ---
Author Organization [facility] Address [address] [place] [address] Phone Care Team Providers Care Writing Manager Name Role Phone Rhona Atwood MD Unavailable [phone] Martita Hopper MD Unavailable [phone] Generic Provider, No Assigned Pcp MD Primary Car e Provider Unavailable Kirit Hilliard MD Unavailable [phone] Reason for Referral * [facility] Consult (Routine) - AuthorizedSpecialtyDiagnoses / ProceduresReferred By ContactReferred To ContactRadiation Oncology Diagnoses Primary myelofibrosis (Multi) [place] [address] [place] [address] Phone: tel: fax: Referral IDStatusReasonStart DateExpiration DateVisits RequestedVisits [id number] Specialty Services Required * Radiation Therapy (Routine) - Pending ReviewSpecialtyDiagnoses / Procedures Referred By ContactReferred To ContactRadiation Oncology Diagnoses Stem cell transplant candidate Primary myelofibrosis (Multi) Procedures [place] [address] [facility] Department [place] [address] Phone: tel: fax: Referral IDStatusMarisolasonStjennifer DateExpiration DateVisits RequestedVisits [id number] Reason for Visit * ReasonCommentsNew Patient Visit * [facility] Consult (Routine) - AuthorizedSpecialtyDiagnoses / ProceduresReferred By ContactReferred To ContactRadiation Oncology Diagnoses Primary myelofibrosis (Multi) [place] [address] [place] [address] Phone: tel: fax: Referral IDStatusEpi DateExpiration DateVisits RequestedVisits [id number] Specialty Services Required Encounter Details DateTypeDepartmentCare Team (Latest Contact Info)Uhyvwtfjeqm04/20/2025 11:29 AM EST - 06/06/2025 12:52 PM ESTHospital Encounter [facility] [address] [place] [phone] [place] [address] Department [place] [address] Stem cell transplant candidate (Primary Dx); Primary myelofibrosis (Multi) Discharge Disposition: Home Social History Tobacco UseTypesPacks/DayYears UsedDateSmoking Tobacco: CvexaoYfypyvwmpi935.2 1984 - 09/2024Smokeless Tobacco: NeverAlcohol UseStandard Drinks/WeekCommentsYes 2 (1 standard drink = 0.6 oz pure alcohol)PHQ-2AnswerDate RecordedPatient Health Questionnaire-2 Axiej95408/06/2024Humiliation, Afraid, Rape, and Kick questionnaireAnswerDate RecordedWithin the [...] relatives?Once a week03/26/2025How often do you attend mandaen or rastafarian services?1 to 4 times per year03/26/2025Do you belong to any clubs or organizations such as mandaen groups, unions, fraternal or athletic groups, or school groups?No03/26/2025How often do you attend meetings of the clubs or organizations you belong to?Never03/26/2025re you , , , , never , or living with a partner?Ayykifh0203/26/2025UDIT-C AnswerDate RecordedQ1: How often do you have [...] food, housing, medical care, and heating?Somewhat hard03/26/2025 [employer] - Occupational Stress Questionnaire [...] were you homeless or living in a fdc (including now)?No 03/26/2025B1300 Health LiteracyAnswerDate RecordedHow often do you need to have someone help you when you read instructions, pamphlets, or other written material from your doctor or pharmacy?Ltreuyvat60/09/2025Digital Health Equity ScreeningAnswerDate RecordedWhich of the following do you know how to use AND have access to every day? (choose all that apply)Desktop computer, laptop computer, or tablet with broadband internet ggqsrzpfis77/09/2025Which of the following would you like to get connected to in order to receive a discount or for free? 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 factory work ([employer])Not on fileNot on fileNot on filedocumented as of this encounter Last Filed Vital Signs Vital SignReadingTime TakenCommentsBlood Dartultq816/7306/06/2025 11:34 AM EST Dovnd63010/20/2025 11:34 AM VIVLbbipsobqwx41.9 ??C (96.6 ??F)06/06/2025 11:34 AM ESTRespiratory Emuh646408/06/2024 11:34 AM ESTOxygen Pzahfzuzno94%06/06/2025 11:34 AM ESTInhaled Oxygen Concentration--Dkvyxh52.8 kg (167 lb)06/06/2025 11:34 AM ESTHeight--Body Mass Index25.1109/03/2025 2:00 PM EDTdocumented in this encounter Functional Status * Over the past 2 weeks, how often have you been bothered by any of the following problems?QuestionAnswerDate of AssessmentAuthorLittle interest or pleasure in doing thingsNot at all06/06/2025 11:48 AM Juana Penny RN Feeling down, depressed, or hopelessNot at all06/06/2025 11:48 AM Juana Penny RNPatient Health Questionnaire-2 Etmqd04408/06/2024 11:48 AM Juana Penny RN * Calculated C-SSRS Risk Score (Lifetime/Recent)AnswerDate of AssessmentAuthorNo Risk Msdxjwqof84/20/2025 11:48 AM Juana Penny RN * [place] Suicide Severity Rating Scale (Screener/Recent Self-Report)Question AnswerDate of AssessmentAuthor1. Wish to be (Past 1 Month)No06/06/2025 11:48 AM Juana Penny RN2. Non-Specific Active Suicidal Thoughts (Past 1 Month)No06/06/2025 11:48 AM Juana Penny RN6. Suicidal Behavior (Lifetime)No06/06/2025 11:48 AM Juana Penny RN documented as of this encounter Medications at [...] and extremities EVERY DAY to TWICE DAILY DSGDGX3911/30/2024documented as of this encounter Progress Notes * Kirit Hilliard MD - 06/06/2025 12:45 PM EST Radiation Oncology Outpatient Consult Patient Name: Nic Ordaz : 1960 Referring Provider: Rhona Atwood MD Primary Care Provider: No Assigned PCP Aston Combs MD Care Team: Patient Care Team: No Assigned Pcp Aston Combs MD as PCP - General (Right Of Way Manager) Rhona Atwood MD as BMT Oncologist (Hematology and Oncology) Martita Hopper MD as Referring Physician (Oncology) Kirit Hilliard MD as Radiation Oncologist (Radiation Oncology) Date of Service: 06/06/2025 History of Present Illness: Nic Ordaz is a 64 y.o. male who was referred by Rhona Atowod MD, for a consultation to the [facility] Department of Radiation Oncology. He is presenting for evaluation and management of myelofibrosis, with circulating blasts. His oncological work up and treatment history is as below: 08/2024: Patient reported experiencing fatigue, chills, pallor, and an inability to carry out his usual activities, chest pain, dyspnea, and an infected skin lesion on his lower extremities. Clinical evaluation revealed profound anemia, with hemoglobin levels ranging between 5-6 g/dL. The patient received three units of RBCs, resulting in the improvement of most symptoms. A right pleural effusion was also identified, necessitating a large-volume thoracentesis of 2.2 liters, which subsequently alleviated his chest pain and dyspnea. 09/2024: Patient presented to ED with anemia without signs of active bleeding; and received a unit of RBCs. 10/2024: Evaluated at [facility] due to severe anemia. He was transfused with two additional units of RBCs and was prescribed iron supplements. Treatment with PROCRIT 60.000 units weekly was initiated, and he was referred to Dr. Martita Hopper in Hematology/Oncology for further assessment, including a planned bone marrow biopsy. Initiated on Luspatercept. Throughout his multiple hospital visits, the patient received a total of nine units of A+ RBCs. 12/25/24: Bone marrow biopsy, at [facility], with results reported on January 01, 2025 as left shifted dysgranulopoietic marrow with 3% of circulating myeloblasts, trisomy 8 by FISH, and positive JAK2 V617F and TET2 mutations consistent with Myelofibrosis. 02/05/25: Transferred to to discuss the possibility of BMT 04/30/25: Saw Dr. Atwood, continues to require transfusions about every other week. Reviewed donor search which showed that he has matched sibling. Plan for is for SCT. 05/29/25 CT C/A/P: 1. Evaluation of the lung parenchyma demonstrates subpleural reticulation with centrilobular ground-glass opacities.2. Given the patient's significant pack-year smoking history this most likely represents a smoking related interstitial lung disease/respiratory bronchiolitis. Inflammatory alveolitis secondary to GVHD or drug toxicity can be considered but is felt to be less likely. Leukemic infiltrates are felt to be less likely 3. Findings consistent with remote granulomatousexposure with mediastinal parenchymal and splenic calcifications.4. Extensive atherosclerotic calcifications of the coronary arteries.5. Splenomegaly consistent with the patient's history of myeloproliferative disease. Pending Pulmonary evaluation 06/19/2025. Review of Systems: He states he is doing well; hungry since he has BM biopsy after this. Pls rn concurrent review note. RADIATION SCREENING QUESTIONS: Prior radiation therapy: No Pacemaker: No Other implantable devices: No Connective tissue disease: No Current Systemic Treatment: No Past Medical History: Medical History[1] Past Surgical History: Surgical History[2] Family History: Cancer-related family history includes Cancer in his mother. Social History: Social History[3] Allergies: Allergies[4] Medications: Current Medications[5] Performance Status: The Karnofsky performance scale today is 100, Fully active, able to carry on all pre-disease performed without restriction (ECOG equivalent 0). OBJECTIVE Physical Exam: BP 119/73 Pulse 101 Temp 35.9 ??C (96.6 ??F) (Temporal) Resp 18 Wt 75.8 kg (167 lb) SpO2 96% BMI 25.11 kg/m?? General: no acute distress, engaged in conversation. HEENT: Normocephalic, atraumatic. Extraocular movements are intact. Edentulous. Pulmonary: Breathing comfortably on room air, no respiratory distress Cardiovascular: Regular rate, no cyanosis, well-perfused Extremities: No lower extremity edema or cyanosis. Musculoskeletal: Normal range of motion. Skin: visible psoriatic lesions over hands , neck and face Neurologic: Alert and oriented x3. Cranial nerves grossly intact. Laboratory Review: The pertinent lab results were reviewed and discussed with the patient. Lab Results Component Value Date WBC 12.1 (H) 06/06/2025 HGB 8.1 (L) 06/06/2025 HCT 23.5 (L) 06/06/2025 MCV 92 06/06/2025 PLT 148 (L) 06/06/2025 Lab Results Component Value Date GLUCOSE 95 06/06/2025 CALCIUM 9.3 06/06/2025 NA 135 (L) 06/06/2025 K 4.8 06/06/2025 CO2 25 06/06/2025 CL 102 06/06/2025 BUN 16 06/06/2025 CREATININE 1.06 06/06/2025 Pathology Review: The pertinent pathology results were reviewed from EMR and discussed with the patient. Imaging: The pertinent imaging results were reviewed from EMR/PACS with schwartz results discussed with the patient. ASSESSMENT: Nic Ordaz is a 64 y.o. male with myelofibrosis, with circulating blasts. Pertinent history, exam, imaging and pathology details were reviewed. The patient has been recommended Allogenic Stem Cell Transplant and will receive total body irradiation 200 cGy/ single fraction as part of the conditioning regimen and presents to our clinic for evaluation and planning. Admission: 06/27 TBI: 07/01 (200 cGy) T=0: 07/02 PLAN: He presents with his sister (other sister is his donor who is not present). Treatment recommendations/Alternatives: NCCN Guidelines were applicable to guide this patients treatment plan. Today, we reviewed the role of total body irradiation as part of the conditioning regimen with the goal to eradicate circulating tumor cells. Per the treatment schema communicated to us by the transplant team, radiation will be given as a single treatment to a total dose of 200 cGy delivered. Because of the low dose, no Lung and Kidney blocks will be used. Radiation treatment logistics: We did review the logistics for planning TBI including the need for a measurement session. We reviewed our TBI technique which involves treatment in supine position with lateral guerrier. We then reviewed possible side effects (Acute and long-term). Common and uncommon side effects withrisks as relevant for his case were discussed. Following this discussion, the patient elected to undergo TBI in our department. Informed consent was updated and measurements for TBI treatment planning were obtained. TBI treatments will be coordinated with the floor. Post-TBI, we will not schedule follow up with the patient as he will be following closely with the transplant team and medical oncologist, however, we encouraged him to contact us should he develop any concerns or questions regarding the radiation treatment. Following this, any and all questions were answered to the patient's satisfaction. Thank you again for referring this patient to our care. Orders placed: 1) [facility] intent to treat: TBI Network location: The patient will be treated at the [facility] location. Simulation will be done at the [facility] location. Aurea Patel DO,MS,MPH PGY-5 For Kirit Hilliard MD, MMM Senior Attending Physician, [facility] [place] Professor, [employer] [employer] [facility] [employer] Our [place]: ???To Heal, To Teach, To Discover.?? RN partner: Juana Xiao <[email or web address]> Radiation Oncology (scheduling): Estefanía Julian <[email or web address]> Proton Therapy (scheduling): Elisha Lopez <[email or web address]> Brachytherapy (scheduling): Angie Martinez <[email or web address]> ATTENDING ADDENDUM: I saw and evaluated the patient with the resident. I personally obtained the schwartz and critical portions of the history and physical exam and directly counseled the patient of the treatment plan. I reviewed the resident documentation and discussed the patient with the resident. I agree with the resident's medical decision making as documented in the note. [1] Past Medical History: Diagnosis Date Closed right ankle fracture 07/13/2021 Complex fracture of distal end of femur without intra-articular extension (CMS- HCC) 07/13/2021 Myelofibrosis (Multi) Psoriasis [2] Past Surgical History: Procedure Laterality Date ORIF FEMUR FRACTURE Right 07/13/2021 [3] Social History Tobacco Use Smoking status: Former Current packs/day: 0.00 Average packs/day: 1 pack/day for 40.2 years (40.2 ttl pk-yrs) Types: Cigarettes Start date: 1984 Quit date: 09/2024 Years since quittin.7 Smokeless tobacco: Never Vaping Use Vaping status: Never Used Substance Use Topics Alcohol use: Yes Alcohol/week: 2.0 standard drinks of alcohol Types: 2 Cans of beer per week [4] No Known Allergies [5] Current Outpatient Medications: ascorbic acid (Vitamin C) 1,000 mg tablet, Take 1 tablet (1,000 mg) by mouth once daily., Disp: , Rfl: b complex 0.4 mg tablet, Take 1 tablet by mouth once daily., Disp: , Rfl: cholecalciferol (Vitamin D-3) 10 mcg (400 units) capsule, Take 1 capsule (10 mcg) by mouth once daily., Disp: , Rfl: Ojjaara 100 mg tablet tablet, Take 2 tablets (200 mg) by mouth once daily., Disp: , Rfl: prochlorperazine (Compazine) 5 mg tablet, take 1 tablet by mouth twice daily as needed for nausea, Disp: , Rfl: rosuvastatin (Crestor) 10 mg tablet, Take 1 tablet (10 mg) by mouth once daily., Disp: , Rfl: triamcinolone (Kenalog) 0.1 % cream, Apply to affected area on trunk and extremities EVERY DAY to TWICE DAILY NEEDED, Disp: , Rfl: * Juana Xiao RN - 06/06/2025 12:45 PM EST Radiation Oncology Nursing Note Prior Radiotherapy: No No radiation treatments to show. (Treatments may have been administered in another system.) Current Systemic Treatment: NO Presence of Pacemaker or ICD: No History of Autoimmune or Connective Tissue Disorders: psoriasis Pain: The patient's current pain level was assessed. They report currently having a pain of 0 out of 10. They feel their pain is under control without the use of pain medications. Review of Systems: Review of Systems Constitutional: Negative. HENT: Negative. Eyes: Negative. Respiratory: Negative. Cardiovascular: Negative. Gastrointestinal: Positive for nausea. Endocrine: Negative. Genitourinary: Negative. Musculoskeletal: Negative. Skin: Positive for rash (pt. with hx of psoriasis). Neurological: Negative. Hematological: Negative. Psychiatric/Behavioral: Negative. Patient here with his sister to discuss TBI radiation prior to his SCT. Patient only complains of occasional nausea. Learner: family and patient Educated on: Readiness: acceptance Preferred learning method: preferred: reading and listening Method used: explanation and handout Response: demonstrated understanding Barriers: None Preferred language: German Resources given: I gave the patient the following patient education materials: What to expect - external beam radiation Fatigue PI sheet Nausea and vomiting PI sheet Total body irradiation PI sheet Skin care during radiation therapy Cosigned by Kirit Hilliard MD at 06/06/2025 9:27 PM EST documented in this encounter Plan of Treatment DateTypeDepartmentCare Team (Latest Contact Info)Uigyfidwprp12/03/2025 1:00 PM ESTOffice Visit Ely Nickerson [address] [phone] [place] [address] [place] [address] 06/24/2025 9:00 AM ESTInfusion [facility] [address] [place] [phone] 06/24/2025 10:10 AM ESTOffice Visit [facility] [address] [place] [phone] Chapo Navarro MD [address] JANE Ness, [address] [place] [id number] 07/01/2025 8:30 AM ESTAppointment [facility] [address] [place] [address] 07/01/2025 9:45 AM ESTAppointment [facility] [address] [place] [address] NameTypePriorityAssociated DiagnosesOrder ScheduleRad Onc Intent to Treat Radiation OncologyRoutine Stem cell transplant candidate Primary myelofibrosis (Multi) Ordered: 06/06/2025NameTypePriorityAssociated DiagnosesOrder ScheduleReferral to Radiation OncologyOutpatient ReferralNon-UrgentOnce for 1 Occurrences starting 06/06/2025 until 06/06/2025documented as of this encounter Visit Diagnoses Diagnosis Stem cell transplant candidate- Primary Primary myelofibrosis (Multi) Myelofibrosis with myeloid metaplasia documented in this encounter Additional Health Concerns AssessmentNoted TimeA fall risk assessment has been completed for the patient 06/06/2025 11:48 AM ESTdocumented as of this encounter Care Teams Team MemberRelationshipSpecialtyStart DateEnd Date Generic Provider, No [place] [address] PCP - GeneralGeneral Awvtpbfi72/7/25 [place] [address] [place] [address] BMT OncologistHematology and Oncology03/26/25 Martita Hopper MD [address] [place] [address] [address] [place] [address] Referring PhysicianOncology04/01/25 [place] [address] [facility] [place] [address] Radiation OncologistRadiation Dhcpptck56/10/25documented as of this encounter
--- OUTSIDE RECORDS SUMMARY | 2025-06-06 12:53 | XMS_ITS | Encounter Summary ---
Author Organization [facility] Address [address] 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 Name Role Phone Mi Encarnacion MD Unavailable [phone] Martita Hopper MD Unavailable [phone] Generic Provider, No Assigned Pcp MD Primary Car e Provider Unavailable Kirit Hilliard MD Unavailable [phone] Reason for Referral * Imaging (Routine) - AuthorizedSpecialtyDiagnoses / ProceduresReferred By ContactReferred To ContactRadiology Diagnoses Primary myelofibrosis (Multi) Stem cell transplant candidate Procedures CT bone marrow biopsy [place] [address] [place] [address] Phone: tel: fax: Referral IDStatusReasonStart DateExpiration DateVisits RequestedVisits [id number] Perform Procedure / Reason for Visit * Imaging (Routine) - AuthorizedSpecialtyDiagnoses / ProceduresReferred By ContactReferred To ContactRadiology Diagnoses Primary myelofibrosis (Multi) Stem cell transplant candidate Procedures CT bone [place] [address] [place] [address] Phone: tel: fax: Referral IDStatGayle DateExpiration DateVisits RequestedVisits [id number] Perform Procedure Encounter Details DateTypeDepartmentCare Team (Latest Contact Info)Gidwveeohkv63/20/2025 12:53 PM EST - 06/06/2025 11:59 PM ESTHospital Encounter [facility] [address] [place] [id number] Primary myelofibrosis (Multi); Stem cell transplant candidate Discharge Disposition: Home Social History Tobacco UseTypesPacks/DayYears UsedDateSmoking Tobacco: IbdshrBuvsarzntk628.2 1984 - 09/2024Smokeless Tobacco: NeverAlcohol UseStandard Drinks/WeekCommentsYes 2 (1 standard drink = 0.6 oz pure alcohol)PHQ-2AnswerDate RecordedPatient Health Questionnaire-2 Ivqpi81608/06/2024Humiliation, Afraid, Rape, and Kick questionnaireAnswerDate RecordedWithin the [...] relatives?Once a week03/26/2025How often do you attend yazidism or buddhist services?1 to 4 times per year03/26/2025Do you belong to any clubs or organizations such as yazidism groups, unions, fraternal or athletic groups, or school groups?No03/26/2025How often do you attend meetings of the clubs or organizations you belong to?Never03/26/2025re you , , , , never , or living with a partner?Llnanpx4303/26/2025UDIT-C AnswerDate RecordedQ1: How often do you have [...] food, housing, medical care, and heating?Somewhat hard03/26/2025 [facility] of Occupational Health - Occupational Stress Questionnaire [...] were you homeless or living in a penitentiary (including now)?No 03/26/2025B1300 Health LiteracyAnswerDate RecordedHow often do you need to have someone help you when you read instructions, pamphlets, or other written material from your doctor or pharmacy?Arqbdyxrs56/09/2025Digital Health Equity ScreeningAnswerDate RecordedWhich of the following do you know how to use AND have access to every day? (choose all that apply)Desktop computer, laptop computer, or tablet with broadband internet pmvgxevppr55/09/2025Which of the following would you like to get connected to in order to receive a discount or for free? (choose all that apply)Patient flkxnehw73/09/2025Sex and Gender InformationValueDate RecordedSex Assigned at BirthNot on fileLegal SexMale 02/19/2025 1:57 PM EDTGender IdentityNot on fileSexual OrientationNot on file OccupationIndustryJob Start DateJob End DateRetired - former factory work ([employer])Not on fileNot on fileNot on filedocumented as of this encounter Last Filed Vital Signs Vital SignReadingTime TakenCommentsBlood Tvplueex246/6506/06/2025 3:30 PM EST Ubsbt819306/06/2025 3:30 PM TBKGinfrbsyjkr95 ??C (96.8 ??F)06/06/2025 1:10 PM EST Respiratory Aqps737908/06/2024 3:30 PM ESTOxygen Mfjoqjrmjv69%06/06/2025 3:30 PM ESTInhaled Oxygen Concentration--Weight--Height--Body Mass Index--documented in this encounter Functional Status * Over the past 2 weeks, how often have you been bothered by any of the following problems?QuestionAnswerDate of AssessmentAuthorLittle interest or pleasure in doing thingsNot at all06/06/2025 11:48 AM Juana Penny RN Feeling down, depressed, or hopelessNot at all06/06/2025 11:48 AM Juana Penny RNPatient Health Questionnaire-2 Iuxlg32908/06/2024 11:48 AM Juana Penny RN * Calculated C-SSRS Risk Score (Lifetime/Recent)AnswerDate of AssessmentAuthorNo Risk Wfizcjgbp32/20/2025 11:48 AM Juana Penny RN * [place] Suicide Severity Rating Scale (Screener/Recent Self-Report)Question AnswerDate of AssessmentAuthor1. Wish to be (Past 1 Month)No06/06/2025 11:48 AM Juana Penny RN2. Non-Specific Active Suicidal Thoughts (Past 1 Month)No06/06/2025 11:48 AM Juana Penny RN6. Suicidal Behavior (Lifetime)No06/06/2025 11:48 AM Juana Penny RN documented as of this encounter Discharge Instructions * Discharge Instructions* Juanis Bridges RN - 06/06/2025 3:28 PM EST You received moderate sedation: - Do not drive a car, or operate any machinery or power tools of any kind for 24 hours. - Do not drink any alcoholic drinks for 24 hours. - Do not take any over the counter medications that may cause drowsiness for 24 hours. - Do not make any important decisions or sign any legal documents for 24 hours. - You need to have a responsible adult accompany you home. - You may resume your normal diet. - We strongly suggest that a responsible adult be with you for the rest of the day and also during the night. This is for your protection and safety. For questions related to your procedure: Please call [phone] between the hours of 7:00am-5:00pm Tuesday through Tuesday. Please call [phone] after 5:00pm and on weekends and holidays. In the event of an emergency call 911 or go to your nearest emergency room. documented in this encounter Medications at Time [...] and extremities EVERY DAY to TWICE DAILY RIPQSI1311/30/2024documented as of this encounter Miscellaneous Notes * Post-Procedure Note - Valerie Raphael MD - 06/06/2025 2:30 PM EST Interventional Radiology Brief Postprocedure Note Attending: Mat Rahman MD [employer]: Valerie Raphael MD Diagnosis: Myelofibrosis Description of procedure: CT guided bone marrow aspiration A single pass was made into the posterior aspect of the right iliac bone under CT guidance using a 13 Gauge [employer] bone biopsy needle passed through a 11 gauge outer cannula. A total of 15 cc bone marrow was aspirated. Scanning after each pass demonstrated no bleeding. Specimen was sent to pathology for further analysis. See PACS for full procedural report. Anesthesia: MAC Moderate Complications: None Estimated Blood Loss: minimal Medications (Filter: Administrations occurring from 1355 to 1452 on 06/06/25) As of 06/06/25 1452 midazolam (Versed) injection (mg) Total dose: 2 mg Date/Time Rate/Dose/Volume Action 06/06/25 1420 1 mg Given 1430 1 mg Given fentaNYL PF (Sublimaze) injection (mcg) Total dose: 100 mcg Date/Time Rate/Dose/Volume Action 06/06/25 1420 50 mcg Given 1431 50 mcg Given See detailed result report with images in PACS. The patient tolerated the procedure well without incident or complication and is in stable condition. Reviewed and approved by VALERIE RAPHAEL on 06/06/25 at 3:41 PM. Cosigned by Mat Rahman MD at 06/06/2025 4:57 PM EST * Pre-Procedure Note - Valerie Raphael MD - 06/06/2025 2:30 PM EST Interventional Radiology Preprocedure Note Indication for procedure: Diagnoses of Primary myelofibrosis (Multi) and Stem cell transplant candidate were pertinent to this visit. Relevant review of systems: NA Relevant Labs: Lab Results Component Value Date CREATININE 1.06 06/06/2025 EGFR 77 06/06/2025 INR 1.3 (H) 05/29/2025 PROTIME 14.1 (H) 05/29/2025 Planned Sedation/Anesthesia: Moderate Airway assessment: normal Directed physical examination: Aox3. Resting comfortably in bed. Respiratory rate/effort within normal limits. Chest wall skin clean/intact. Mallampati: II (hard and soft palate, upper portion of tonsils and uvula visible) ASA Score: ASA 2 - Patient with mild systemic disease with no functional limitations Benefits, risks and alternatives of procedure and planned sedation have been discussed with the patient and/or their claims representative. All questions answered and they agree to proceed. Reviewed and approved by VALERIE RAPHAEL on 06/06/25 at 3:40 PM. documented in this encounter Plan of Treatment DateTypeDepartmentCare Team (Latest Contact Info)Eyzuxjafgvs96/03/2025 1:00 PM ESTOffice Visit Ely Nickerson [facility] [address] [phone] [place] [address] [place] [address] 06/24/2025 9:00 AM ESTInfusion [facility] [address] [place] [phone] 06/24/2025 10:10 AM ESTOffice Visit [facility] [address] [place] [phone] Chapo Navarro MD [address] JANE Carvalho, [address] [place] [address] 07/01/2025 8:30 AM ESTAppointment [facility] [address] [place] [address] 07/01/2025 9:45 AM ESTAppointment [facility] [address] [place] [address] NameTypePriorityAssociated DiagnosesDate/TimeMicroarray Analysis, Heme/OncLab Routine Primary myelofibrosis (Multi) Stem cell transplant candidate 06/06/2025 2:20 PM ESTNameTypePriorityAssociated DiagnosesOrder Schedule Microarray Analysis, Heme/OncLabRoutine Primary myelofibrosis (Multi) Stem cell transplant candidate Once (Lab) for 1 Occurrences starting 06/11/2025 until 06/11/2025, 1 completed documented as of this encounter Procedures Procedure NamePriorityDate/TimeAssociated DiagnosisCommentsCT BONE MARROW BIOPSY AND ASPIRATIONS ZORDUcwjsqb01/20/2025 3:13 PM EST Primary myelofibrosis (Multi) Stem cell transplant candidate CYTOGENETICS CULTURE AND GDQGHlzgdca12/20/2025 2:20 PM EST Primary myelofibrosis (Multi) Stem cell transplant candidate BONE MARROW HISTOLOGY VMQEDayaveq84/20/2025 2:20 PM EST Primary myelofibrosis (Multi) Stem cell transplant candidate UHTL VAHOJhvcvke22/20/2025 2:20 PM EST Primary myelofibrosis (Multi) Stem cell transplant candidate CYTOGENETICS RLKJWggicei62/20/2025 2:20 PM EST Primary myelofibrosis (Multi) Stem cell transplant candidate SLIDE BCDHVRXMkwhkzo97/20/2025 2:20 PM EST Primary myelofibrosis (Multi) Stem cell transplant candidate MYELOID MALIGNANCIES HWVVRXcgelxv99/20/2025 2:20 PM EST Primary myelofibrosis (Multi) Stem cell transplant candidate FLOW CYTOMETRY TEST (PERFORMABLE)Yxjswbw9706/06/2025 2:20 PM EST Primary myelofibrosis (Multi) Stem cell transplant candidate BONE MARROW CELL HHLCANATIDILDhentwy72/20/2025 2:20 PM EST Primary myelofibrosis (Multi) Stem cell transplant candidate BONE MARROW HISTOLOGY BQYKEraxzjz28/20/2025 2:20 PM EST Primary myelofibrosis (Multi) Stem cell transplant candidate documented in this encounter Results * CT bone marrow biopsy and aspirations only (06/06/2025 3:13 PM EST)Anatomical RegionLateralityModalityBody Angio, OtherComputed TomographySpecimen (Source) Anatomical Location / LateralityCollection Method / VolumeCollection Time Received Time06/06/2025 3:50 PM EST06/06/2025 3:50 PM EST Impressions 06/06/2025 3:49 PM EST Technically successful CT-guided bone marrow biopsy. ?? I was present for ??the entirety of the procedure as detailed above. I personally reviewed the image(s)/study and resident interpretation. I agree with the findings as stated by resident Valerie Raphael. Data analyzed and images interpreted at [place], [place]. ?? MACRO: None ?? Signed by: Mat Rahman 06/06/2025 3:49 PM Dictation workstation: ?? [id number] Narrative 06/06/2025 3:49 PM EST Interpreted By: Mat Rahman and [place]yersdorf Conner STUDY: CT-guided bone marrow biopsy; ??06/06/2025 3:13 pm ?? INDICATION: Signs/Symptoms:Pre BMT bone marrow. ?? ,D47.1 Chronic myeloproliferative disease (Multi),Z76.82 Awaiting organ transplant status ?? COMPARISON: CT abdomen pelvis 09/07/2024 ?? ACCESSION NUMBER(S): [id number] ?? ORDERING CLINICIAN: MI ENCARNACION ?? TECHNIQUE: INTERVENTIONALIST(S): MD Valerie Pineda MD ?? CONSENT: The patient was informed of the nature of the proposed procedure. The purposes, alternatives, risks, and benefits were explained and discussed. All questions were answered and consent was obtained. ?? HISTORY: The history and physical exam pertinent to the procedure were reviewed and no updates were made. ?? RADIATION EXPOSURE: Total dose length product (DLP): 130.16 mGy * cm ?? SEDATION: Moderate conscious IV sedation services (supervision of administration, induction, and maintenance) were provided by the attending physician performing the procedure with intravenous fentanyl 100 mcg and Versed 2 mg for 20 minutes. The physician was assisted by an independent trained observer, an interventional radiology nurse, in the continuous monitoring of patient level of consciousness and physiologic status. ?? MEDICATION/CONTRAST: No additional. ?? TIME OUT: A time out was performed immediately prior to procedure start with the interventional team, correctly identifying the patient name, date of , medical record number, procedure, anatomy (including marking of site and side), patient position, procedure consent form, relevant laboratory and imaging test results, safety precautions, and procedure-specific equipment needs. ?? PROCEDURE: The patient was placed in prone position on the interventional CT scanner bed. An initial healthcare project manager image and axial noncontrast CT images of the pelvis were obtained. Imaging findings are discussed below. A posterior percutaneous approach was chosen for biopsy of the ??right iliac bone. The skin site was marked, prepped, and draped in usual sterile fashion. Local anesthesia of the skin and deep tissues was administered with 1% lidocaine. ?? An 11 gauge coaxial needle system was advanced to the iliac and seated within the bone. Initial marrow aspirate was obtained, with no spicules identified. A 13 gauge biopsy needle was then used to obtain a 2 cm core sample of bone. Subsequently, the needle was slightly advanced and additional marrow aspirate was obtained. This aspirated demonstrate few spicules of bone. Then, multiple additional aspirates were obtained in heparinized and non-heparinized syringes. The needles were removed and sterile dressing applied. ?? Samples were deemed adequate by the bone marrow pathology team in the procedure area and taken for analysis. ?? The patient tolerated the procedure well without evidence of immediate complication. ??The patient was then monitored in the radiology recovery area for approximately 1 hour prior to discharge. ?? FINDINGS: Initial axial noncontrast CT images of the pelvis demonstrate ??no acute findings. ?? Intraprocedural CT images demonstrate percutaneous biopsy of the iliac in progress as discussed above. ?? Procedure Note Mat Rahman MD - 06/06/2025 Interpreted By: Mat Rahman, Cheko Grissom STUDY: CT-guided bone marrow biopsy; 06/06/2025 3:13 pm INDICATION: Signs/Symptoms:Pre BMT bone marrow. ,D47.1 Chronic myeloproliferative disease (Multi),Z76.82 Awaiting organ transplant status COMPARISON: CT abdomen pelvis 09/07/2024 ACCESSION NUMBER(S): [id number] ORDERING CLINICIAN: MI ENCARNACION TECHNIQUE: INTERVENTIONALIST(S): MD Valerie Pineda MD CONSENT: The patient was informed of the nature of the proposed procedure. The purposes, alternatives, risks, and benefits were explained and discussed. All questions were answered and consent was obtained. HISTORY: The history and physical exam pertinent to the procedure were reviewed and no updates were made. RADIATION EXPOSURE: Total dose length product (DLP): 130.16 mGy * cm SEDATION: Moderate conscious IV sedation services (supervision of administration, induction, and maintenance) were provided by the attending physician performing the procedure with intravenous fentanyl 100 mcg and Versed 2 mg for 20 minutes. The physician was assisted by an independent trained observer, an interventional radiology nurse, in the continuous monitoring of patient level of consciousness and physiologic status. MEDICATION/CONTRAST: No additional. TIME OUT: A time out was performed immediately prior to procedure start with the interventional team, correctly identifying the patient name, date of , medical record number, procedure, anatomy (including marking of site and side), patient position, procedure consent form, relevant laboratory and imaging test results, safety precautions, and procedure-specific equipment needs. PROCEDURE: The patient was placed in prone position on the interventional CT scanner bed. An initial healthcare project manager image and axial noncontrast CT images of the pelvis were obtained. Imaging findings are discussed below. A posterior percutaneous approach was chosen for biopsy of the right iliac bone. The skin site was marked, prepped, and draped in usual sterile fashion. Local anesthesia of the skin and deep tissues was administered with 1% lidocaine. An 11 gauge coaxial needle system was advanced to the iliac and seated within the bone. Initial marrow aspirate was obtained, with no spicules identified. A 13 gauge biopsy needle was then used to obtain a 2 cm core sample of bone. Subsequently, the needle was slightly advanced and additional marrow aspirate was obtained. This aspirated demonstrate few spicules of bone. Then, multiple additional aspirates were obtained in heparinized and non-heparinized syringes. The needles were removed and sterile dressing applied. Samples were deemed adequate by the bone marrow pathology team in the procedure area and taken for analysis. The patient tolerated the procedure well without evidence of immediate complication. The patient was then monitored in the radiology recovery area for approximately 1 hour prior to discharge. FINDINGS: Initial axial noncontrast CT images of the pelvis demonstrate no acute findings. Intraprocedural CT images demonstrate percutaneous biopsy of the iliac in progress as discussed above. IMPRESSION: Technically successful CT-guided bone marrow biopsy. I was present for the entirety of the procedure as detailed above. I personally reviewed the image(s)/study and resident interpretation. I agree with the findings as stated by resident Valerie Raphael. Data analyzed and images interpreted at [facility], [place], [place]. MACRO: None Signed by: Mat Rahman 06/06/2025 3:49 PM Dictation workstation: [id number] Authorizing ProviderResult TypeResult StatusReberta RAYO CT PROCEDURESFinal Result * Cytogenetics Culture and Hold (06/06/2025 2:20 PM EST)ComponentValueRef Range Test MethodAnalysis TimePerformed AtPathologist SignatureCytogenetics InterpretationPer Hematopathology Protocol, this 06/06/2025 Bone Marrow specimen has been placed on culture and hold status. Cultured cells will be kept until 12/09/2025. Chromosome and FISH testing can be added to the specimen up to 180 days after receipt. Please contact the Genetics lab at [phone] for details.06/12/2025 11:23 AM [facility] Electronically signed and reported byIlsa Bond MD, PhD, [facility] 06/12/2025 11:23 AM [facility] CYTOGENETICS LABSpecimen (Source)Anatomical Location / LateralityCollection Method / VolumeCollection TimeReceived TimeBone Marrow Specimen from bone marrow obtained by aspiration / Vbdfkbc8206/06/2025 2:20 PM EST 06/06/2025 3:07 PM EST Narrative Authorizing ProviderResult TypeResult StatusReberta LEE CYTOGENETICS ORDERABLESFinal ResultPerforming OrganizationAddressCity/State/ZIP CodePhone Number [facility] [address] [place] [address] * Myeloid Malignancies Panel (06/06/2025 2:20 PM EST)ComponentValueRef RangeTest MethodAnalysis TimePerformed AtPathologist SignatureMyeloid Malignancies ResultsDISEASE ASSOCIATED GENOMIC FINDINGS: JAK2 p.V617F ([id number] c.1849G>T) TET2 p.Q1627* ([id number] c.4879C>T) INTERPRETATION: JAK2 p.V617F VAF: 79% The presence of a JAK2 mutation is included in the diagnostic criteria for polycythemia vera, essential thrombocythemia, and primary myelofibrosis (WHO/ICC 2021). In myelofibrosis, detection of JAK2 p.V617F mutation confers an intermediate prognosis and higher risk of thrombosis as compared to patients with CALR type 1 mutation (NCCN MPN 1.2024). TET2 p.Q1627* VAF: 52% In the absence of JAK2, CALR, and MPL mutations, TET2 mutations may serve as a clonal marker in thediagnostic criteria for primary myelofibrosis (WHO/ICC 2021). Mutations in epigenetic modifier genes including TET2 at CML diagnosis have been associated with lower rates of PFS/EFS (NCCN CML 3.2024). DISEASE RELEVANT ALTERATIONS NOT DETECTED: Negative for CALR mutation. Negative for JAK2 exon 12 mutation. Negative for MPL mutation. VARIANTS OF UNCERTAIN SIGNIFICANCE: TP53 p.M384I ([id number] c.1152G>A) VAF: 47% Regions with coverage <300x (Gene:Exon): (CALR:9), (SRSF2:1), (ZRSR2:9). A false negative result cannot be excluded in these regions, especially in samples of low neoplastic cell content. DISCLAIMER: This assay is designed to detect targeted clinically-relevant single nucleotide variants and insertions and deletions (<30bp) in a select group of genes. This assay has also been designed to detect specific larger insertions and deletions: FLT3 internal tandem duplication (ITD) and CALR Type I mutations. This assay does not distinguish between somatic and germline alterations in analyzed region s. A negative result (mutation not identified) does not rule out the presence of a mutation below the limit of detection of this assay due to low neoplastic cell content, tumor heterogeneity, or the presence of additional mutations in the listed genes which are outside of the target regions in thisassay. Mutations in some homopolymeric regions (eg. ASXL1 p.Q419Opj*12) are not consistently detecte d by this technology. General population polymorphisms, promoter, synonymous and intronic variants (with the exception of splice variants) are not generally included in this report. Identification or absence of cancer-associated mutations does not necessarily indicate a response to therapy. Decisions on patient care and treatment must be based on the independent medical judgmentof the treating physician, taking into account all applicable information concerning the patient's condition such as clinical and histopathologic findings, other laboratory findings, and patient preferences. This report includes information from public sources, including scientific and medical literature to better characterize the significance of alterations detected. This laboratory developed test was developed and its analytical performance characteristics have been determined by [facility]. This test has not been cleared or approved by the FDA;however, the FDA has determined that such approval is not necessary. The [facility] is certified under the Clinical Laboratory Improvement Amendments of 1988 (CLIA-88) as qualified to perform high complexity testing. PANEL GENE LIST: ASXL1(11-12), BRAF(15), CALR(9), CBL(7-9), CSF3R(14,17), DNMT3A(8-12,18-19,22-23), ETV6(2-8), EZH2(15-19), FLT3(14-16,20), GATA2(4-6), IDH1(4), IDH2(4), JAK2(12,14), JAK3(4,13,16), KIT(17), KRAS(2-4), MPL(4,10), MYD88(5), NPM1(11), NRAS(2-3), PHF6(2-10), PTPN11(3,13), RUNX1(4-9), SETBP1(4), SF3B1(14-16), SRSF2(1), TET2(3-11), TP53(2-11), U2AF1(2,6), WT1(7,9), ZRSR2(1-10). Not all exons are sequenced in their entirety. Exons covered are shown in parenthesis. Genome assembly (hg19) was used for alignment and variant calling. 06/12/2025 5:15 PM [facility] TRANSLATIONAL LABORATORYElectronically signed and reported byEdis Garcia MD PhD06/12/2025 5:15 PM [facility] TRANSLATIONAL LABORATORYSpecimen (Source)Anatomical Location / LateralityCollection Method / VolumeCollection TimeReceived TimeBone MarrowSpecimen from bone marrow obtained by aspiration / UnknownNon-blood Collection / Wprwaal7706/06/2025 2:20 PM EST 06/06/2025 3:07 PM EST Narrative Authorizing ProviderResult TypeResult StatusMi LEE MOLECULAR DIAGNOSTICS ORDERABLESFinal ResultPerforming OrganizationAddressCity/State/ZIP CodePhone Number [facility] [address] [place] [address] * Slide Request (06/06/2025 2:20 PM EST)Specimen (Source)Anatomical Location / LateralityCollection Method / VolumeCollection TimeReceived TimeBloodVenous blood specimen / UnknownVenipuncture / Dppkuax6006/06/2025 2:20 PM EST06/06/2025 3:07 PM EST Narrative Authorizing ProviderResult TypeResult StatusReberta LEE BLOOD ORDERABLESFinal ResultPerforming OrganizationAddressCity/State/ZIP CodePhone Number [facility] [address] [address] * UHTL HOLD (06/06/2025 2:20 PM EST)Specimen (Source)Anatomical Location / LateralityCollection Method / VolumeCollection TimeReceived TimeBone Marrow Specimen from bone marrow obtained by aspiration / UnknownNon-blood Collection / Giwtxnv3206/06/2025 2:20 PM EST06/06/2025 3:07 PM EST Narrative Authorizing ProviderResult TypeResult StatusReberta LEE BLOOD ORDERABLESFinal ResultPerforming OrganizationAddressCity/State/ZIP CodePhone Number [facility] [address] [place] [address] * CYTOGENETICS HOLD (06/06/2025 2:20 PM EST)Specimen (Source)Anatomical Location / LateralityCollection Method / VolumeCollection TimeReceived TimeBone Marrow Specimen from bone marrow obtained by aspiration / Xlragdh7106/06/2025 2:20 PM EST06/06/2025 3:07 PM EST Narrative Authorizing ProviderResult TypeResult StatusReberta Encarnacion MDLAB BLOOD ORDERABLESFinal ResultPerforming OrganizationAddressCity/State/ZIP CodePhone Number [facility] [address] [place] [phone] * Flow Cytometry Test (06/06/2025 2:20 PM EST)ComponentValueRef RangeTest Method Analysis TimePerformed AtPathologist SignatureCase ReportFlow Cytometry ?Case: [id number] ? Authorizing Provider: ??Mi Encarnacion MD ? Collected: ? 06/06/2025 1420 ? Ordering Location: ? [facility] ?? Received: ?06/06/2025 1507 ? Pathologist: ? Mando Johnson, DO ? Specimen: ?Bone Marrow Aspirate ? 06/10/2025 5:57 PM [facility] LABDiagnosisBONE MARROW ASPIRATE, FLOW CYTOMETRY: -- Increased myeloblasts (1.6% of total events) with slightly dim CD33. -- Monocytes with co-expression of CD56, see note. 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 Correlate with separate bone marrow pathology report. 06/10/2025 5:57 PM [facility] at 1757 ESTBy the signature on this report, the individual or group listed as making the Final Interpretation/Diagnosis certifies that they have reviewed this case and the staining reactivity of the antibodies and reagents in the analysis were determined to be acceptable. [facility]10[facility] 5:57 PM [facility] LABCell Populations 06/10/2025 5:57 PM [facility] LABFlow DifferentialLymphocyte: 5 % CD3+CD4+: 64 % ; CD3+CD8+: 17 % ; Natural Killer Cells: 11 % CD19+: 5 % B Cell Light Chain Expression: Polyclonal Surface [place]/Surface Lambda: 59:38 Monocyte: 2 % ; Dim CD56 expression in a large subset. Granulocyte: 53 % 06/10/2025 5:57 PM [facility] LABFlow Test OrderedAcute Panelnot established 06/10/2025 5:57 PM [facility] LABSpecimen Eoeingbic51/24/2025 5:57 PM [facility] Cell Count1.40not established x10*3/uL06/10/2025 5:57 PM [facility] LABNumber of Cells Qdgjjywwj06/24/2025 5:57 PM [facility] LABComment:60,000-124,000Methodology Reference ranges not established. This test is a multicolor, whole blood lysis assay. It was developed and its performance characteristics determined by the Department of Pathology, [facility], and has not beencleared or approved by the U.S. Food and Drug Administration. The laboratory is regulated under CLIA as qualified to perform high complexity testing. This test is used for clinical purposes. It should not be regarded as investigational or for research. Immunophenotypic analysis was performed using the following antibodies: 1A: CD45. 1B: CD71, CD1c, CD304, CD34, CD14, CD45. 1C: CD20, CD19, CD10, CD34, CD38, CD45. 1D: CD15, CD117, CD33, CD34, HLA-DR,CD45. 1E: CD8, CD7, CD4, CD34, CD3, CD45. 1F: CD56, CD13, CD5, CD34, CD2, CD45. 1G: CD177, CD13, CD163, CD11b, CD16, CD45. 1H: [place] Surface, Lambda Surface, CD9, CD22, CD19, CD45. 1I: CD71, Glycophorin-A, CD9, CD105, CD36, CD45. 1J: CD371, CD34, CD38, CD71, CD19, CD45. 1K: TRBC1, TCR Gamma/Delta, CD4, CD8, CD3, CD45. 06/10/2025 5:57 PM [facility] LABSpecimen (Source)Anatomical Location / Laterality Collection Method / VolumeCollection TimeReceived TimeBone MarrowSpecimen from bone marrow obtained by aspiration / Zuqtmzb7906/06/2025 2:20 PM EST06/06/2025 3:07 PM EST Narrative Authorizing ProviderResult TypeResult StatusMi LEE PATHOLOGY ORDERABLESFinal ResultPerforming OrganizationAddressCity/State/[facility] [place] [address] * Bone marrow cell differential (06/06/2025 2:20 PM EST)Specimen (Source) Anatomical Location / LateralityCollection Method / VolumeCollection Time Received TimeBone MarrowSpecimen from bone marrow obtained by aspiration / Svqioro9006/06/2025 2:20 PM EST06/06/2025 3:07 PM EST Narrative Authorizing ProviderResult TypeResult StatusReberta LEE PATHOLOGY ORDERABLESFinal ResultPerforming OrganizationAddressCity/State/[facility] [place] [address] * Bone marrow aspiration and exam (06/06/2025 2:20 PM EST)ComponentValueRef RangeTest MethodAnalysis TimePerformed AtPathologist SignatureCase Report Surgical Pathology ?Case: [id number] ? Authorizing Provider: ??Mi Encarnacion MD ? Collected: ? 06/06/2025 1420 ? Ordering Location: ? [facility] ?? Received: ?06/06/2025 1507 ? Pathologist: ? Mando Johnson, DO ? Specimens: ?? A) - BONE MARROW CLOT, RIGHT ILIAC CREST ? B) - BONE MARROW CORE BIOPSY, RIGHT ILIAC CREST ? C) - BONE MARROW ASPIRATE, RIGHT ILIAC CREST ? 06/10/2025 5:58 PM [facility] LABFINAL DIAGNOSISA, B & C. 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 -- INCREASED BLASTS (5%). NOTE: The bone marrow aspirate smears are suboptimal for morphologic assessment due to being aspicular and hemodilute. The bone marrow core biopsy shows extensive reticulin fibrosis, patchy to focally contiguous collagenosis, and evidence of osteosclerosis (WHO MF grade: MF-3). Hematopoiesis is markedly reduced excepting megakaryocytes which are increased and atypically clustered. Blasts are mildly increased, roughly 5% by CD34, though enumeration is difficult to due extensive fibrosis. Next-generation sequencing performed at an outside facility (12/25/2024) showed the following myeloid-associated pathologic mutations: JAK2 p. V617F (VAF 75.6%), TET2 p. Q1627* (VAF 43.8%), and a variant of uncertain significance TP53 p. M384I (VAF: 48.9%) [VUS] while conventional cytogenetics demonstrated gain of chromosome 8. By flow cytometry, myeloblasts are increased (1.6% of total events) and a subset of monocytes show atypical dim CD56 expression. Overall, the findings are consistent with the patient's known primary myelofibrosis, now progressed to MF-3. Correlation with clinical findings and pending genetic studies is suggested.06/10/2025 5:58 PM [facility] at 1758 ESTComment 06/10/2025 5:58 PM [facility] LABBone Marrow DifferentialDifferential performed on touch imprint. Cell Type Value Reference Range Promyelocytes 1.0 1-5 % Myelocytes 4.0 5-10 % Metamyelocytes 4.0 10-25 % Bands 12.0 10-20 % Segmented Neutrophils 57.0 5-30 % Eosinophils 1.0 2-4 % Basophils 0.0 0-1 % Lymphocytes 12.0 5-25 % Monocytes 3.5 0-2 % Plasma Cells 0.5 0-2 % Blasts 1.5 0-1 % Total Erythroid 3.5 17-35 % Total Cells Counted 200 Myeloid/Erythroid Ratio 22.6 1.5-4.1 06/10/2025 5:58 PM [facility] LABMicroscopic Description PERIPHERAL SMEAR: Submitted Red cells: Normocytic anemia with anisopoikilocytosis with elliptocytes, fewer dacrocytes, and mildly increased polychromasia. Rare circulating nucleated elements. White cells: Myeloid precursor cells identified with slight left shift and toxic changes. Platelets: Thrombocytopenia with few enlarged platelets. Comments: Few circulating blasts identified (1%). ASPIRATE SMEAR: Submitted Specimen: Aspicular, hemodilute though hematopoietic elements are present. Erythropoiesis: Rare immature and intermediate forms seen though the latter frequently shows atypical nuclear morphologies. Granulopoiesis: Progressive stages of maturation seen. Few granulocytes with atypia including: hyper and hyposegmentation, hypogranular cells, and megaloblastoid change. Megakaryocytes: Absent. Comments: Blasts are not increased (1.5%). TOUCH PREP: Submitted Specimen: Paucicellular. Megakaryocytes: Present. Morphology: Predominantly normal with very rare small hypolobate form. Comments: Similar to aspirate smear. ASPIRATE CLOT: Submitted Specimen: Aspicular. CORE BIOPSY: Submitted Specimen: Adequate. Cellularity: Difficult to evaluate due to extensive fibrosis. Estimated M:E ratio: Cannot be determined Bony trabeculae: Thickened osteoid seams with numerous spurs compatible with osteosclerotic changes. Megakaryocytes: Present. Morphology: Partially crushed though some are clustered and display atypical bulbous nuclei. Granulomas: Absent. Lymphoid aggregates: Absent. Comments: The bone marrow is almost entirely replaced by fibrosis. SPECIAL STAINS: Iron (clot section, part A): Storage iron adequate; no ring sideroblasts identified. Block B1 Trichrome: Increased patchy to contiguous collagen deposition in bone marrow spaces. Reticulin: Diffuse and dense reticulin fibers with thickened parallel fibrous bands. Overall WHO myelofibrosis grade: MF-3. IMMUNOHISTOCHEMISTRY (Block B1): CD34: Blasts are increased, difficult to enumerate due to extensive fibrosis, roughly 5%. Factor VIII: Highlights megakaryocytes, few tight clusters are noted. FLOW CYTOMETRY: Performed, see separate report. In brief, myeloblasts are increased (1.6% of total events) and a subset of monocytes show atypical dim CD56 expression Immunostains were performed in addition to flow cytometry to fully characterize the phenotype, architecture, and extent of the marrow population(s). This was medically necessary for the best possiblediagnosis. The case was reviewed with the pathology resident Nicole Still MD. 06/10/2025 5:58 PM [facility] LABGross DescriptionA: Received in formalin, labeled with the patient's name and hospital number and C, bone marrow clot, right iliac crest , is an irregular fragment of blood clot measuring 1.7 x 1.5 x 0.2 cm. The specimen is submitted in toto in one cassette. SLO B: Received in B-plus fixative, labeled with the patient's name and hospital number and bone marrow core biopsy, right iliac crest , is a cylindrical segment of bone measuring 2.1 x 0.3 x 0.2 cm. The specimen is submitted in toto in one cassette following decalcification in Rapid [employer]o. SLO06/10/2025 5:58 PM [facility] LABDisclaimerOne or more of the assays performed on this specimen MAY be considered lab developed tests (LDT). Performance characteristics of some cytochemical, immunohistochemical, immunofluorescent, and chromogenic in-situ hybridization tests have been determined by the performing laboratory within [facility] ([facility]) Department of Anatomic Pathology in a manner consistent with the Clinical Laboratory Improvement Amendments (CLIA) requirements. One or more of these tests may not have been cleared or approved by the FDA. The [facility] Department of Anatomic Pathology is regulated under CLIA as qualified to perform high complexity testing. These tests are used for clinical purposes only. These should not be regarded as investigational or for research. Positive and negative controls stain appropriately. 06/10/2025 5:58 PM [facility] LABSpecimen (Source)Anatomical Location / Laterality Collection Method / VolumeCollection TimeReceived TimeBone Marrow (BONE MARROW CLOT, RIGHT ILIAC CREST)06/06/2025 2:20 PM EST06/06/2025 3:07 PM ESTBone marrow specimen (specimen) (BONE MARROW CORE BIOPSY, RIGHT ILIAC CREST)06/06/2025 2:20 PM EST06/06/2025 3:07 PM ESTBone marrow specimen (specimen) (BONE MARROW ASPIRATE, RIGHT ILIAC CREST)06/06/2025 2:20 PM EST06/06/2025 3:07 PM EST Narrative Authorizing ProviderResult TypeResult StatusRebecjacqueline LEE PATHOLOGY ORDERABLESFinal ResultPerforming OrganizationAddressCity/State/ZIP CodePhone Number [facility] [address] [place] [phone] documented in this encounter Visit Diagnoses Diagnosis Primary myelofibrosis (Multi) Myelofibrosis with myeloid metaplasia Stem cell transplant candidate documented in this encounter Administered Medications Medication OrderMAR ActionAction DateDoseRateSite fentaNYL PF (Sublimaze) injection intravenous, Once PRN Procedure, Starting on [place] 06/06/25 at 1420, For 1 dose, Intraprocedure Given06/06/2025 2:20 PM EST50 mcg fentaNYL PF (Sublimaze) injection intravenous, Once PRN Procedure, Starting on [place] 06/06/25 at 1431, For 1 dose, Intraprocedure Given06/06/2025 2:31 PM EST50 mcg midazolam (Versed) injection intravenous, Once PRN Procedure, Starting on [place] 06/06/25 at 1420, For 1 dose, Intraprocedure Given06/06/2025 2:20 PM EST1 mg midazolam (Versed) injection intravenous, Once PRN Procedure, Starting on [place] 06/06/25 at 1430, For 1 dose, Intraprocedure Given06/06/2025 2:30 PM EST1 mgdocumented in this encounter Additional Health Concerns AssessmentNoted TimeA fall risk assessment has been completed for the patient 06/06/2025 11:48 AM ESTdocumented as of this encounter Care Teams Team MemberRelationshipSpecialtyStart DateEnd Date Generic Provider, [place] [address] PCP - GeneralGeneral Gjvruqbt89/7/25 [place] [address] [place] [address] BMT OncologistHematology and Oncology03/26/25 Martita Hopper MD [address] [place] [address] [address] [place] [address] Referring PhysicianOncology04/01/25 [place] [address] Department [place] [address] Radiation OncologistRadiation Rvgmkhfc08/10/25documented as of this encounter
--- OUTSIDE RECORDS SUMMARY | 2025-06-11 04:00 | XMS_ITS ---
Author Organization The [facility] [place] Address [address] [facility] [place] [address] Care Team Providers Care Vault Mechanic Name Role Phone Dewey Enriquez DO Primary Care Provider Unavail KEISHA Caballero Unavailable [phone] REASON FOR VISIT MD Encounters Encounter Location Date Provider Diagnosis [facility] [address] [place] [phone] 06/11/2025 KEISHA RICE Plan Of Treatment Next Appt Details Provider Name:KEISHA RICE , 07/02/2025 09:00:00 AM, [address] [place] [address], [phone], Provider Name:KEISHA RICE , 07/02/2025 09:15:00 AM, [address] [place] [address], [phone], Progress Notes * PENNY MCQUEEN RDOB:1960 (64 yo M)Acc No.[id number]:06/11/2025 UNLOCKED PROGRESS NOTE Progress Notes Patient: PENNY MACHADO :?KEISHA RICE M.D.:1960???Age:64 Y ???Sex:MaleDate:06/11/2025Phone:[phone]:[address] [place] [id number]:Dewey Enriquez DO Subjective: * Chief Complaints: * 1 . MD. * Medical History: Objective: * Vitals: Assessment: Plan: * Treatment: * * Electronic signature of KEISHA RICE MD on 06/13/2025 at 11:34 AM ESTSign off status: PendingVisit Status:?CONFPHONE (Voice) * Provider: Sherry RICE M.D. Date: 08/11/2024 Generated for Printing/Faxing/eTransmitting on:?06/13/2025 11:34 AM EST
--- OUTSIDE RECORDS SUMMARY | 2025-06-11 04:15 | XMS_ITS ---
Author Organization [facility] [place] Address [address] [place] [address] Care Team Providers Care Healthcare Manager Name Role Phone Dewey Enriquez DO Primary Care Provider Unavail KEISHA Caballero Unavailable [phone] REASON FOR VISIT CS30 Encounters Encounter Location Date Provider Diagnosis [facility] [address] [place] [phone] 06/11/2025 KEISHA RICE Plan Of Treatment Next Appt Details Provider Name:KEISHA RICE , 07/02/2025 09:00:00 AM, [address] [place] [address], [phone], Provider Name:KEISHA RICE , 07/02/2025 09:15:00 AM, [address] [place] [address], [phone], Progress Notes * PENNY MCQUEEN RDOB:1960 (64 yo M)Acc No.[id number]:06/11/2025 UNLOCKED PROGRESS NOTE Progress Note Patient: PENNY MACHADO :?KEISHA RICE M.D.:1960???Age:64 Y ???Sex:MaleDate:06/11/2025Phone:[phone]:[address] [id number]:Dewey Enriquez DO Subjective: * Chief Complaints: * 1 . CS30. * Medical History: Objective: * Vitals: Assessment: Plan: * Treatment: * * Electronic signature of KEISHA RICE MD on 06/13/2025 at 11:32 AM ESTSign off status: PendingVisit Status:?PEN (Pending) * Provider: Sherry RICE M.D. Date: 08/11/2024 Generated for Printing/Faxing/eTransmitting on:?06/13/2025 11:32 AM EST
[2025-06-13] VITALS (24 sets, daily range): BP systolic 116–149; BP diastolic 60–80; PULSE 71–104; TEMP 36.5–37; O2SAT 94–98; BMI 24.7; BMI 24.8
--- NOTE | 2025-06-13 11:24 | CT_ITS ---
The [address] [address] Patient Name: PENNY MCQUEEN MRN: [id number] date: 1960 Sex: M Assigned Patient Location: ER Current Patient Location: ER Accession/Order Number: [id number] Exam Date: 06/13/2025 11:36 Report Date: 06/13/2025 12:05 At the request of: HUGO ROLDAN MD Procedure: CT head/brain wo con CT BRAIN WITHOUT CONTRAST: CLINICAL HISTORY: diplopia COMPARISON: None TECHNIQUE: Contiguous axial unenhanced images were obtained through the brain. This CT exam was performed using one or more following dose reduction techniques: Automated exposure control, adjustment of the mA and/or kV according to patient size, or use of iterative reconstruction technique. FINDINGS: There is no evidence of midline shift, intra or extra-axial fluid collection, hemorrhage or CT evidence of stroke. Cortical atrophy with chronic microvascular ischemic changes. 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 Posterior fossa appears unremarkable. Visualized intraorbital contents demonstrate no acute findings. Visualized paranasal sinuses are clear. The surrounding soft tissues are normal. CT/CT head/brain wo con IMPRESSION: NO ACUTE INTRACRANIAL ABNORMALITY. Impression dictated by: Miguel Ángel Arevalo Jr., D.O. 06/13/2025 12:05 PM Dictation Location: [place] [address] Electronically authenticated by: [id number] Y Date: 06/13/2025 12:05
--- NOTE | 2025-06-13 11:24 | ECG_ITS ---
The [facility] Test Date: 2025-06-13 Pat Name: PENNY MCQUEEN Department: Room: - Gender: Male Printer Apprentice: : 1960 Requested By: [id number] Order Number: [id number] Reading MD: CHRISTOPH FERRO M.D. Measurements Intervals Gay Rate: 96 P: 49 MT: 136 QRS: 54 QRSD: 94 T: 26 QT: 356 QTc: 409 Interpretive Statements Sinus rhythm with occasional premature ventricular complexes 2440 Incomplete right bundle branch block 9130 borderline ECG Compared to ECG 10/09/2024 17:49:34 Premature ventricular complexes now present Electronically Signed On 06-13-2025 15:27:16 EST by CHRISTOPH FERRO M.D.
--- NOTE | 2025-06-13 11:32 | ED.GENADUL1 ---
HPI HPI - General Adult General Chief complaint: Eye Problems Stated complaint: WEAKNESS, BLURRY VISION Time Seen by Provider: 06/13/25 11:17 Source: patient Mode of arrival: Wheelchair Limitations: no limitations History of Present Illness HPI narrative: 64-year-old male presented to the emergency department with an initial complaint of blurry vision. When asked about specifically it turns out it occasional double vision. He states that either started yesterday morning or the day before yesterday morning, he is not sure. He states it comes and goes. No headache. He has no difficulty with his arms or legs. He has never had this previously. He is diabetic. Related Data Home Medications ?Medication ?Instructions ?Recorded ?Confirmed melatonin 10 mg capsule 10 mg PO BEDTIME 10/09/24 06/13/25 rosuvastatin 10 mg tablet 10 mg PO .qhs 10/09/24 06/13/25 momelotinib 100 mg tablet (Ojjaara) 200 mg PO DAILY 06/13/25 06/13/25 Allergies Allergy/AdvReac Type Severity Reaction Status Date / Time No Known Drug Allergies Allergy Verified 10/09/24 17:41 Opioid HPI Opioid Management Most Recent Opioid Data: Last Pain Scale 0 02/26/25, 11:30 Last ORT Total Score 0 10/09/24, 18:42 Last ORT Risk Category Low Risk 10/09/24, 18:42 Review of Systems ROS Narrative A ten point review of systems is negative except as noted above. [facility] Medical History (Updated 06/13/25 @ 13:46 by Parish Garcia MD) Dyslipidemia ?E78.5 - Hyperlipidemia, unspecified (ICD-10) Anemia requiring transfusions ?D64.9 - Anemia, unspecified (ICD-10) Social History Highest level of school completed/degree received: high school graduate Little interest or pleasure in doing things: not at all Feeling down, depressed, or hopeless: not at all Exam Narrative Exam Narrative: Nurses note and vital signs reviewed General:The patient appears well and in no apparent distress.Patient is resting comfortably on cart. Skin:Warm, dry, no pallor noted.There is no rash noted. Head:Normocephalic, atraumatic Eye: Normal conjunctiva, no drainage. Extraocular movement is not intact. The right eye does not move adequately medially with left lateral gaze. Otherwise extraocular movements appear to be intact. Ears, Nose, Mouth, and Throat: oral mucosa is moist. Nares patent. Cardiovascular:Regular Rate and Rhythm Respiratory:Patient is in no distress, no accessory muscle use, lungs are clear to auscultation, no wheezing, rales or rhonchi Back:non-tender GI: Soft and nontender Musculoskeletal: The patient has no evidence of calf tenderness, no pitting edema, symmetrical pulses noted bilaterally Neurological:A&O x4, normal speech: Upper and lower extremity strength 5 out of 5 and symmetric Psychiatric:Cooperative Constitutional Vital Signs, click to edit/add: Last Vital Signs Temp 97.7 F 06/13/25 11:17 Pulse 100 H 06/13/25 11:17 Resp 18 06/13/25 11:17 BP 131/70 06/13/25 11:17 Pulse Ox 98 06/13/25 11:17 O2 Del Method Room Air 06/13/25 11:17 Course Vital Signs Vital signs: Vital Signs Temperature 97.7 F 06/13/25 11:17 Pulse Rate 100 H 06/13/25 11:17 Respiratory Rate 18 06/13/25 11:17 Blood Pressure 131/70 06/13/25 11:17 Pulse Oximetry 98 06/13/25 11:17 Oxygen Delivery Method Room Air 06/13/25 11:17 Temperature 97.7 F 06/13/25 11:17 Pulse Rate 100 H 06/13/25 11:17 Respiratory Rate 18 06/13/25 11:17 Blood Pressure 131/70 06/13/25 11:17 Pulse Oximetry 98 06/13/25 11:17 Oxygen Delivery Method Room Air 06/13/25 11:17 Medical Decision Making MDM Narrative Medical decision making narrative: On exam the patient has right medial rectus palsy. CT and CTA head and neck showed no acute findings. Case discussed with neurology at [facility] and they recommend admission and to have MRI with coronal cuts and diffusion-weighted imaging, with and without contrast. Findings are discussed with the patient and his and he is being admitted. Differential Diagnosis Differential Diagnosis: Stroke, brain tumor, medial rectus palsy Lab Data Lab results reviewed: Yes I reviewed the patient's lab results Labs: Lab Results 06/13/25 Range/Units 11:29 WBC 12.1 H (4.0-11.0) 10^3/uL RBC 2.38 L (4.70-6.10) 10^6/uL Hgb 7.7 L (14.0-18.0) g/dL Hct 22.5 L* (42.0-54.0) % MCV 94.5 H (80.0-94.0) fL MCH 32.4 (25.9-34.0) pg MCHC 34.2 (29.9-35.2) g/dL RDW 23.5 H (11.0-15.0) % Plt Count 201 (150-450) 10^3/uL MPV 11.6 (9.5-13.5) fL Seg Neuts % (Manual) 67.0 (43.0-75.0) Band Neutrophils % 2.0 (0-5) % Lymphocytes % (Manual) 14.0 L (20.5-60.0) % Monocytes % (Manual) 8.0 (1.7-12.0) % Eosinophils % (Manual) 0.0 L (0.9-7.0) % Basophils % (Manual) 2.0 (0.2-2.0) % Metamyelocytes % 2.0 Myelocytes % 1.0 Blast Cells % (Manual) 4.0 Neutrophils # (Manual) 8.10 H (1.4-6.5) 10^3/uL Band Neutrophils # 0.2 (0.0-0.3) 10^3/uL Lymphocytes # (Manual) 1.69 (1.20-3.80) 10^3/uL Monocytes # (Manual) 0.96 H (0.30-0.80) 10^3/uL Eosinophils # (Manual) 0.00 (0.00-0.70) 10^3/uL Basophils # (Manual) 0.24 H (0.00-0.10) 10^3/uL Metamyelocytes # 0.24 Myelocytes # 0.12 Blast Cells # 0.48 Anisocytosis 2+ Sodium 139 (136-145) mmol/L Potassium 4.9 (3.5-5.1) mmol/L Chloride 101 (98-107) mmol/L Carbon Dioxide 27.6 (21.0-32.0) mmol/L Anion Gap 15.3 BUN 14.0 (7.0-18.0) mg/dL Creatinine 1.21 (0.70-1.30) mg/dL Est GFR ( Amer) >60 (>=60 mL/min/1.73m^2) Est GFR (Non-Af Amer) 60 (>=60 mL/min/1.73m^2) BUN/Creatinine Ratio 11.6 Glucose 111 H (74-106) mg/dL Calcium 9.4 (8.5-10.1) mg/dL Imaging Data CT scan - head: Radiologist's impression: ITS Impressions Head CT 06/13/25 11:24 IMPRESSION: NO ACUTE INTRACRANIAL ABNORMALITY. Impression dictated by: Miguel Ángel Arevalo Jr., D.O. 06/13/2025 12:05 PM Dictation Location: [facility]-18 Electronically authenticated by: [id number] Y Date: 06/13/2025 12:05 Head CTA 06/13/25 12:06 IMPRESSION: No acute intracranial pathology. No evidence of critical stenosis, aneurysmal dilatation, dissection or occlusion. Impression dictated by: Miguel Ángel Arevlao Jr., D.O. 06/13/2025 1:24 PM Dictation Location: [facility]-18 Electronically authenticated by: [id number] Y Date: 06/13/2025 13:24 Neck CTA 06/13/25 12:06 IMPRESSION: No acute intracranial pathology. No evidence of critical stenosis, aneurysmal dilatation, dissection or occlusion. Impression dictated by: Miguel Ángel Arevalo Jr., D.O. 06/13/2025 1:24 PM Dictation Location: [facility]-18 Electronically authenticated by: [id number] Y Date: 06/13/2025 13:24 ECG Data Attestation: I personally reviewed and interpreted this ECG as follows: (EKG on my interpretation shows normal sinus rhythm with rate of 96 and no acute change. 2 PVCs present.) Discharge Plan Discharge Chief Complaint: Eye Problems Clinical Impression: Weakness of medial rectus muscle Patient Disposition: Admitted as Observation Time of Disposition Decision: 13:46 Condition: Fair
--- OUTSIDE RECORDS SUMMARY | 2025-06-13 11:32 | XMS_ITS | CCD ---
Author Organization [facility] CliniSyla Care Team Providers Care Mysql Dba Name Role Phone GORDILLO, CHRISTOPHER Unavailable Unavailable GORDILLO, CHRISTOPHER Unavailable Unavailable HAY, MELBA Unavailable Unavailable FURLONG, DEWEY Unavailable Unavailable AR Unavailable Unavailable GORDILLO, CHRISTOPHER Unavailable Unavailable GORDILLO, [...] Provider Furlong DODewey G Primary Care Provider ED, DEWEY G Referring Unavailable FURLONG, DEWEY G Primary Care Unavailable FURLONG, DEWEY G Referring Unavailable FURLONG, DEWEY G Primary Care Unavailable TAMELA WILLIAMSON Admitting Unavailable GEREMIAS SOTO Referring Unavailable FURLONG, DEWEY G Primary Care Unavailable KEYUR STUART Consulting Unavailable VINEET ERNST Attending Unavailable BILL BEASLEY Consulting Unavailable ONLY), [facility] (INPATIENT Consult ing Unavailable ED, DEWEY G Referring Unavailable FURLONG, DEWEY G Primary Care Unavailable Furlong DODewey Primary Care Provider Furlong DO, Dewey Attending Provider GEREMIAS SOTO Attending Unavailable FURLONG, DEWEY G Primary Care Unavailable KEYUR STUART Attending Unavailable FURLONG, DEWEY G Referring Unavailable FURLONG, DEWEY G Primary Care Unavailable Martita Hopper MD Attending Provider [phone] Martita Hopper Admitting Unavailable Martita Hopper Attending Unavailable Furlong, Dewey Admitting Unavailable Furlong, Dewey Attending Unavailable Furlong, Dewey Primary Care Unavailable Furlong DO, Dewey G Primary Care Provider [phone] Unavailable Primary Care Provider Unavailabl e FURLONG, [...] DEWEY G Primary Care Unavailable PROVIDER, UNKNOWN Attending Unavailable PROVIDER, UNKNOWN Admitting Unavailable LASHELL TRUJILLO Referring Unavaila ble PROVIDER, UNKNOWN Attending Unavailable RUCHI, APOORA Referring Unavailable PROVIDER, UNKNOWN Admitting Unavailable PROVIDER, UNKNOWN Admitting Unavailable PROVIDER, UNKNOWN Attending Unavailable RUCHI, APOORA Referring Unavailable PROVIDER, UNKNOWN Attending Unavailable PROVIDER, UNKNOWN Admitting Unavailable RUCHI, APOORA Referring Unavailable PROVIDER, UNKNOWN Attending Unavailable PROVIDER, UNKNOWN Admitting Unavailable RUCHI, APOORA Referring Unavailable Rhona Atwood MD Unavailable [phone] Martita Hopper MD Unavailable RHONA ATWOOD Attending Unavailable ALESSANDRA STONER Referring Unavailable RHONA ATWOOD Attending Unavailable RHONA ATWOOD Referring Unavailable RHONA ATWOOD Referring Unavailable ARTURO MONTANEZ Attending Unavailable ARTURO MONTANEZ Referring Unavailable RHONA ATWOOD Referring Unavailable RHONA ATWOOD Referring Unavailable Medications Current Medications MedicationDrug Class(es)DatesSig (Normalized)Sig (Original)ascorbic acid 1000 mg oral tablet (3 sources)Vitamin CStart: 09-93-0791ekod 1 tablet by mouth once dailyascorbic acid (Vitamin C) 1,000 mg tablet Take 1 tablet (1,000 mg) by mouth once daily. 03/07/2025 Activeb complex 0.4 mg tablet (2 sources)take 1 tablet by mouth once dailyb complex 0.4 mg tablet Take 1 tablet by mouth once daily. Activecephalexin 500 mg oral capsule (1 source)Cephalosporin AntibacterialStart: 09-12-2024 End: 48-54-7239ZCGKqfpraa (KEFLEX) 500 mg capsule Take 1 capsule (500 mg total) by mouth in the morning and 1 capsule (500 mg total) at noon and 1 capsule (500 mg total) in the evening and 1 capsule (500 mg total) before bedtime. Do all this for 5 days. 20 capsule 09/12/2024 09/17/2024 Activecholecalciferol 0.01 mg oral capsule (17 sources)Vitamin Dtake 1 capsule by mouth once dailycholecalciferol (Vitamin D-3) 10 mcg (400 units) capsule Take 1 capsule (10 mcg) by mouth once daily. ActiveOJJAARA 100 mg tablet (4 sources)Start: 82-94-5918IRVUKDQ 100 mg tablet 10/16/2024 ActiveOjjaara 100 mg tablet tablet (2 sources)Start: 30-69-9437owqh 2 tablets by mouth once dailyOjjaara 100 mg tablet tablet Take 2 tablets (200 mg) by mouth once daily. 10/16/2024 Active Ojjaara 100 MG TABS (17 sources)Start: 99-63-0642Qpezdgc 100 MG TABS 10/16/2024 Active prochlorperazine 5 mg oral tablet (4 sources)PhenothiazineStart: 29-10-8642litjwbodysojbrax (COMPAZINE) 5 mg tablet prn 11/04/2024 Activerosuvastatin calcium 10 mg oral tablet (16 sources)HMG-CoA Reductase InhibitorStart: 50-65-2819ngkm 1 tablet by mouth once dailyrosuvastatin (Crestor) 10 mg tablet Take 1 tablet (10 mg) by mouth once daily. 06/29/2024 Activetriamcinolone acetonide 1 mg/ml topical cream (20 sources)CorticosteroidStart: 02-69-3700rnqnvprvkjavt (Kenalog) 0.1 % cream Apply to affected area on trunk and extremities EVERY DAY to TWICE DAILY NEEDED 11/30/2024 Active Completed/Discontinued Medications MedicationDrug Class(es)DatesSig (Normalized)Sig (Original)2 ml fentaNYL 0.05 mg/ml injection (1 source)Opioid AgonistStart: 02-20-2025 End: 88-76-7698Ygfkwcvtquf, PRN, Starting on Tue02/20/25 at 1103, Until Tue02/20/25 at 1114, Intra Procedureferrous sulfate 325 mg oral tablet (2 sources)Start: 03-07-2025 End: 93-60-4208oxyj 1 tablet by mouth once dailyferrous sulfate 325 mg (65 mg elemental) tablet Take 1 tablet by mouth once daily. 03/07/2025 03/26/2025 Discontinued (Therapy completed)Start: 28-92-9462eeyw 1 tablet by mouth in the morningferrous sulfate 325 (65 FE) MG tablet Take 1 tablet (325 mg total) by mouth in the morning. 03/07/2025 Activemelatonin 10 mg oral tablet (8 sources)Start: 09-14-2024 End: 59-38-9656swgq 1 tablet by mouth once dailymelatonin 10 mg tablet Take 1 tablet by mouth nightly. 09/14/2024 03/07/2025 Discontinued (Therapy completed)2 ml midazolam 1 mg/ml injection (1 source)BenzodiazepineStart: 02-20-2025 End: 12-70-1787Adsizfwdifb, PRN, Starting on Tue02/20/25 at 1103, Until Tue02/20/25 at 1103, Intra Procedurenystatin 100 unt/mg topical powder (5 sources)Polyene AntifungalStart: 09-14-2024 End: 20-28-3207hdfirlxh (MYCOSTATIN) powder Apply 1 Application topically in the morning and 1 Application before bedtime. 30 g 1 09/14/2024 11/01/2024 Discontinued (Therapy completed) Problems Active Problems Problem ClassificationProblemDateDocumented DateEpisodic/ChronicChronic obstructive pulmonary disease and bronchiectasis (1 source)Chronic obstructive pulmonary disease, unspecified; 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 obstructive pulmonary disease, unspecified]Onset: 48-31-6854Ctioitj Coagulation and hemorrhagic disorders (2 sources)Thrombocytopenia, unspecified; Translations: [Thrombocytopenia, unspecified]Onset: 73-99-0679OyctiucRmcyqkgpmg and other anemia (20 sources)Pancytopenia; Translations: [Other pancytopenia]Onset: 01-15-2025 78-46-0939UzqnwnuQsfnmqybty and other anemia (1 source)Other pancytopenia; Translations: [Other pancytopenia (HCC)]Onset: 17-43-7916WfxeagoGzlkeucren and other anemia (17 sources)Anemia; Translations: [Anemia, unspecified]Onset: 09-08-2024 57-85-1830WpnnqeocTsjmoztzu of lipid metabolism (4 sources)Hyperlipidemia; Translations: [Hyperlipidemia, unspecified]Onset: 916930-81-2203ZjkbsjqKlzhfklt Injury - Fall (1 source)Fall on same level due to ice and snow, initial encounter; Translations: [FALL ON SAME LEVEL DUE TOICE AND SNOW, INITIAL ENCOUNTER]Onset: 33-97-9632Duxiknjf Injury - Place of occurrence (1 source)Unspecified place in unspecified non-institutional (private) residence as the place of occurrence of the external cause; Translations: [UNSP PLACE IN UNSP NON-INSTITUT (PRIVATE) RESIDENCE PLACE]Onset: 32-02-9726Ywkoktce of lower limb (17 sources)Displaced spiral fracture of shaft of right tibia, initial encounter for open fracture type I or II; Translations: [Unspecified fracture of shaft of right fibula, subsequent encounter for closed fracture with routine healing] Onset: 77-75-9627AyxbxllfYbojratgz of unspecified nature or uncertain behavior (1 source)Myelosclerosis with myeloid xxmihfgsat43-76-0475JjfbsmiTyqsyfxvg of unspecified nature or uncertain behavior (20 sources)Myelosclerosis with myeloid metaplasia; 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 myeloproliferative disease]Onset: 369527-06-6479GxjxoogbFzx-Rerwufh`s lymphoma (2 sources)Non-Hodgkin lymphoma, unspecified, lymph nodes of inguinal region and lower limb; Translations: [Non-Hodgkin lymphoma, unspecified, intra-abdominal lymph nodes]Onset: 61-05-1565PwivtguQbtjgvicnyd deficiencies (2 sources)Unspecified severe protein-calorie malnutrition; Translations: [Unspecified severe protein-calorie malnutrition (HHS-HCC)]Onset: 05-29-2025 ChronicOpen wounds of extremities (1 source)Unspecified open wound, right lower leg, initial encounter; Translations: [Unspecified open wound, right lower leg, initial encounter]Onset: 37-62-6008WrvkkbunUpdkt aftercare (2 sources)Encounter for therapeutic drug level monitoring; Translations: [Encounter for therapeutic drug level monitoring]Onset: 14-34-5499BmwzvuotTpyop aftercare (2 sources)Other superintendent container terminal (current) drug therapy; Translations: [Other superintendent container terminal (current) drug therapy]Onset: 16-07-5072QybdhlteFvhbc gastrointestinal disorders (1 source)Splenomegaly, not elsewhere classified; Translations: [Splenomegaly, not elsewhere classified]Onset: 57-16-0496XrwqnfvbCrqpa hematologic conditions (20 sources)Myelofibrosis; Translations: [Myelofibrosis]Onset: 02-12-2025 72-92-9068IngfeuuIeynz hematologic conditions (3 sources)Myelofibrosis; Translations: [Myelofibrosis]Onset: 90-52-5659Aqjukyx Other inflammatory condition of skin (1 source)Psoriasis vulgaris; Translations: [PSORIASIS VULGARIS]Onset: 10-31-1253AqtokjjGqkao inflammatory condition of skin (2 sources)Psoriasis; Translations: [Psoriasis, unspecified]Onset: 03-26-2025 94-51-1517LrlqozpIokpv inflammatory condition of skin (2 sources)Psoriasis, unspecified; Translations: [Psoriasis, unspecified]Onset: 98-33-3631TtzhlhlCikre lower respiratory disease (2 sources)Other forms of dyspnea; Translations: [Other forms of dyspnea]Onset: 75-39-6312RlqjguevAesiw screening for suspected conditions (not mental disorders or infectious disease) (2 sources)Radiology result abnormal; Translations: [Abnormal findings on diagnostic imaging of other specified body structures]Onset: 01-15-2025 07-32-7737YzmaxmcZmgizjnd; pneumothorax; pulmonary collapse (11 sources)Pleural effusion; Translations: [Pleural effusion, not elsewhere classified]Onset: 998653-33-4178SnkpwvmuParczbfn codes; unclassified (2 sources)Awaiting organ transplant status; Translations: [Awaiting organ transplant status]Onset: 78-51-1657PmluqslCjsoasht codes; unclassified (1 source)Colon cancer screening declined; Translations: [Procedure and treatment not carried out because of patient's decision for unspecified reasons] 18-20-6296QuhbhmpzWnoxrbtb codes; unclassified (1 source)Prostate cancer screening declined; Translations: [Procedure and treatment not carried out because of patient's decision for unspecified reasons] 86-89-7158EyscsoxuMwpdgqth codes; unclassified (1 source)Flushing; Translations: [Flushing]92-93-8001VkzmfijnVocltlom codes; unclassified (2 sources)Other specified personal risk factors, not elsewhere classified; Translations: [Other specified personal risk factors, not elsewhere classified] Onset: 84-05-1956TvgephuzQnynvyafn-related disorders (18 sources)Nicotine dependence, cigarettes, uncomplicated; Translations: [Cigarette smoker ]Onset: 07-14-2017 Resolved: 615230-44-9119VpicjotFctldpcdxcqd (2 sources)Unknown / UNK(Unknown)Onset: 69-40-9607Uupfxdpivkjk (1 source)Low Blood CountOnset: 37-37-6728Lhlatbqvrldt (1 source)Abnormal Lab ValueOnset: 26-51-9503Fynawkyyvkxj (1 source)ReferralOnset: 09-06-2024 Past or Other Problems Problem ClassificationProblemDateDocumented DateEpisodic/ChronicChronic ulcer of skin (9 sources)Ulcer of lower extremity; Translations: [Non-pressure chronic ulcer of unspecified part of right lower leg with fat layer exposed]Onset: 09-10-2024 Resolved: 146346-69-7788BieepurDlfbhcwpzary of device; implant or graft (4 sources)Fracture of tibia or fibula following insertion of orthopedic implant, joint prosthesis, or bone plate, right leg; Translations: [FX TIB/FIB FOL INSRT ORTHO IMPLNT/PROSTH/BONE PLT, RIGHT LEG]Onset: 82-69-6423Mgdwtybi Deficiency and other anemia (3 sources)Anemia, unspecified; Translations: [Anemia, unspecified]Onset: 57-32-2940YyplkiueGtrcfxip mellitus without complication (3 sources)Hyperglycemia; Translations: [Hyperglycemia, unspecified]Onset: 123350-73-0830LsgiqtqqQyppezoyefjih (14 sources)Inguinal lymphadenopathy; Translations: [Localized enlarged lymph nodes]Onset: 684814-56-8881QsrjehrvZfzr disorders (15 sources)Mood disordersOnset: 06-25-2024 Resolved: Other connective tissue disease (1 source)Arthrodesis status; Translations: [ARTHRODESIS STATUS]Onset: 90-39-1313KjnioobaWzmaj gastrointestinal disorders (7 sources)Splenomegaly; Translations: [Splenomegaly, not elsewhere classified] Onset: 315701-10-0919NtxihpsdWvpkg screening for suspected conditions (not mental disorders or infectious disease) (6 sources)Patient encounter status; Translations: [Encounter for screening for cardiovascular disorders]Onset: 323153-16-6029NlzstpytLmmxatmy codes; unclassified (14 sources)Amnesia; Translations: [Other amnesia]Onset: EpisodicResidual codes; unclassified (2 sources)Other amnesia; Translations: [Other amnesia]Onset: 65-95-3408Ezutbxyy Residual codes; unclassified (2 sources)Flushing; Translations: [Flushing]Onset: 94-25-0191GpqfcnmnYilfvwrvm and history of mental health and substance abuse codes (3 sources)Ex-cigarette smoker; Translations: [Personal history of nicotine dependence]Onset: 631683-52-9762SyuabetkNxdi and subcutaneous tissue infections (10 sources)Cellulitis of right lower limb; Translations: [Cellulitis of right lower limb]Onset: 09-08-2024 Resolved: 695649-83-3596HkjsqyxxCrybjkuldwwl (1 source)Patient encounter zempni43-46-6785Nqchbxzarszj (2 sources)Onset: Results Test NameValueInterpretationReference RangeFacilityBlood type and Indirect antibody screen panel (Bld)on 34-61-9912JQG group Nom (Bld)ANoSelect Medical Specialty Hospital - Southeast OhioComment on above:Order Comment: The previously reported component Neutrophils % is no longer being reported. The previously reported component Lymphocytes % is no longer being reported. The previously reported component Monocytes % is no longer being reported. The previously reported component Eosinophils % is no longer being reported. The previously reported component Basophils % is no longer being reported. The previously reported component Absolute Neutrophils is no longer being reported. The previously reported component Absolute Lymphocytes is no longer being reported. The previously reported component Absolute Monocytes is no longer being reported. The previously reported component Absolute Eosinophils is no longer being reported. The previously reported component Absolute Basophils is no longer being reported.Performed By: #### [id number] #### HARRY NOVAK ([id number]) [facility] ([place]) [address] [place], [place] [address]Njwcb group antibody screen QlNegativeAshtabula General HospitalComment on above:Order Comment: The previously reported component Neutrophils % is no longer being reported. The previously reported component Lymphocytes % is no longer being reported. The previously reported component Monocytes % is no longer being reported. The previously reported component Eosinophils % is no longer being reported. The previously reported component Basophils % is no longer being reported. The previously reported component Absolute Neutrophils is no longer being reported. The previously reported component Absolute Lymphocytes is no longer being reported. The previously reported component Absolute Monocytes is no longer being reported. The previously reported component Absolute Eosinophils is no longer being reported. The previously reported component Absolute Basophils is no longer being reported.Performed By: #### [id number] #### HARRY Bar'RAKAN ([id number]) [facility] ([place]) [address] [place], [place] [address]O Ag Ql (Bld)PositiveAshtabula General HospitalComment on above:Order Comment: The previously reported component Neutrophils % is no longer being reported. The previously reported component Lymphocytes % is no longer being reported. The previously reported component Monocytes % is no longer being reported. The previously reported component Eosinophils % is no longer being reported. The previously reported component Basophils % is no longer being reported. The previously reported component Absolute Neutrophils is no longer being reported. The previously reported component Absolute Lymphocytes is no longer being reported. The previously reported component Absolute Monocytes is no longer being reported. The previously reported component Absolute Eosinophils is no longer being reported. The previously reported component Absolute Basophils is no longer being reported.Performed By: #### [id number] #### HARRY NOVAK ([id number]) [facility] ([place]) [address] [place], [place] [address]M reactive proteinon 83-39-2269KXQ [Mass/Vol]0.56 mg/dLNormal <1.00[facility] WestComment on above:Performed By: #### [id number] #### HARRY NOVAK ([id number]) [facility] ([place]) [address] [place], [place] [address]CZW W Auto Differential panel (Bld)on 11-96-1378Hveamssozvt distribution width (RBC) [Ratio]24.7 %High11.5-14.5[facility] WestComment on above:Order Comment: The previously reported component Neutrophils % is no longer being reported. The previously reported component Lymphocytes % is no longer being reported. The previously reported component Monocytes % is no longer being reported. The previously reported component Eosinophils % is no longer being reported. The previously reported component Basophils % is no longer being reported. The previously reported component Absolute Neutrophils is no longer being reported. The previously reported component Absolute Lymphocytes is no longer being reported. The previously reported component Absolute Monocytes is no longer being reported. The previously reported component Absolute Eosinophils is no longer being reported. The previously reported component Absolute Basophils is no longer being reported.Performed By: #### [id number] #### HARRY NOVAK ([id number]) [facility] ([place]) [address] [place], [place] [address]Xnrgrfqonq (Bld) [Volume fraction]18.9 %Low41.0-52.0 [facility] WestComment on above:Order Comment: The previously reported component Neutrophils % is no longer being reported. The previously reported component Lymphocytes % is no longer being reported. The previously reported component Monocytes % is no longer being reported. The previously reported component Eosinophils % is no longer being reported. The previously reported component Basophils % is no longer being reported. The previously reported component Absolute Neutrophils is no longer being reported. The previously reported component Absolute Lymphocytes is no longer being reported. The previously reported component Absolute Monocytes is no longer being reported. The previously reported component Absolute Eosinophils is no longer being reported. The previously reported component Absolute Basophils is no longer being reported.Performed By: #### [id number] #### HARRY NOVAK ([id number]) [facility] ([place]) [address] [place], [place] [address]Lsiiqdejke (Bld) [Mass/Vol]6.6 g/dLLow13.5-17.5[facility] WestComment on above:Order Comment: The previously reported component Neutrophils % is no longer being reported. The previously reported component Lymphocytes % is no longer being reported. The previously reported component Monocytes % is no longer being reported. The previously reported component Eosinophils % is no longer being reported. The previously reported component Basophils % is no longer being reported. The previously reported component Absolute Neutrophils is no longer being reported. The previously reported component Absolute Lymphocytes is no longer being reported. The previously reported component Absolute Monocytes is no longer being reported. The previously reported component Absolute Eosinophils is no longer being reported. The previously reported component Absolute Basophils is no longer being reported.Performed By: #### [id number] #### HARRY NOVAK ([id number]) [facility] ([place]) [address] [place], [place] [address]Kvfarbbt granulocytes (Bld) [#/Vol]0.79 x10*3/uLHigh0.00-0.70 [facility] WestComment on above:Order Comment: The previously reported component Neutrophils % is no longer being reported. The previously reported component Lymphocytes % is no longer being reported. The previously reported component Monocytes % is no longer being reported. The previously reported component Eosinophils % is no longer being reported. The previously reported component Basophils % is no longer being reported. The previously reported component Absolute Neutrophils is no longer being reported. The previously reported component Absolute Lymphocytes is no longer being reported. The previously reported component Absolute Monocytes is no longer being reported. The previously reported component Absolute Eosinophils is no longer being reported. The previously reported component Absolute Basophils is no longer being reported.Performed By: #### [id number] #### HARRY NOVAK ([id number]) [facility] ([place]) [address] [place], [place] [address]Bdahyjtq granulocytes/100 WBC (Bld)7.3 %High0.0-0.9[facility] WestComment on above:Order Comment: The previously reported component Neutrophils % is no longer being reported. The previously reported component Lymphocytes % is no longer being reported. The previously reported component Monocytes % is no longer being reported. The previously reported component Eosinophils % is no longer being reported. The previously reported component Basophils % is no longer being reported. The previously reported component Absolute Neutrophils is no longer being reported. The previously reported component Absolute Lymphocytes is no longer being reported. The previously reported component Absolute Monocytes is no longer being reported. The previously reported component Absolute Eosinophils is no longer being reported. The previously reported component Absolute Basophils is no longer being reported.Result Comment: Immature Granulocyte Count (IG) includes promyelocytes, myelocytes and metamyelocytes but does not include bands. Percent differential counts (%) should be interpreted in the context of the absolute cell counts (cells/UL).Performed By: #### [id number] #### HARRY NOVAK ([id number]) [facility] ([place]) [address] [place], [place] [address]NXL (RBC) [Entitic mass]32.5 ttTprkvn51.0-34.0UnWestern Reserve HospitalComment on above:Order Comment: The previously reported component Neutrophils % is no longer being reported. The previously reported component Lymphocytes % is no longer being reported. The previously reported component Monocytes % is no longer being reported. The previously reported component Eosinophils % is no longer being reported. The previously reported component Basophils % is no longer being reported. The previously reported component Absolute Neutrophils is no longer being reported. The previously reported component Absolute Lymphocytes is no longer being reported. The previously reported component Absolute Monocytes is no longer being reported. The previously reported component Absolute Eosinophils is no longer being reported. The previously reported component Absolute Basophils is no longer being reported.Performed By: #### [id number] #### HARRY NOVAK ([id number]) [facility] ([place]) [address] [place], [place] [address]TAQR (RBC) [Mass/Vol]34.9 g/kRRlvcsp01.0-36.0[facility] WestComment on above:Order Comment: The previously reported component Neutrophils % is no longer being reported. The previously reported component Lymphocytes % is no longer being reported. The previously reported component Monocytes % is no longer being reported. The previously reported component Eosinophils % is no longer being reported. The previously reported component Basophils % is no longer being reported. The previously reported component Absolute Neutrophils is no longer being reported. The previously reported component Absolute Lymphocytes is no longer being reported. The previously reported component Absolute Monocytes is no longer being reported. The previously reported component Absolute Eosinophils is no longer being reported. The previously reported component Absolute Basophils is no longer being reported.Performed By: #### [id number] #### HARRY NOVAK ([id number]) [facility] ([place]) [address] [place] [id number] (RBC) [Entitic vol]93 yNFppahy56-824MngkgjtzvrWestern Reserve HospitalComment on above:Order Comment: The previously reported component Neutrophils % is no longer being reported. The previously reported component Lymphocytes % is no longer being reported. The previously reported component Monocytes % is no longer being reported. The previously reported component Eosinophils % is no longer being reported. The previously reported component Basophils % is no longer being reported. The previously reported component Absolute Neutrophils is no longer being reported. The previously reported component Absolute Lymphocytes is no longer being reported. The previously reported component Absolute Monocytes is no longer being reported. The previously reported component Absolute Eosinophils is no longer being reported. The previously reported component Absolute Basophils is no longer being reported.Performed By: #### [id number] #### HARRY NOVAK ([id number]) [facility] ([place]) [address] [id number] RBC/100 WBC (Bld) [Ratio]0.3 /100 WBCsHigh0.0-0.0 [facility] WestComment on above:Order Comment: The previously reported component Neutrophils % is no longer being reported. The previously reported component Lymphocytes % is no longer being reported. The previously reported component Monocytes % is no longer being reported. The previously reported component Eosinophils % is no longer being reported. The previously reported component Basophils % is no longer being reported. The previously reported component Absolute Neutrophils is no longer being reported. The previously reported component Absolute Lymphocytes is no longer being reported. The previously reported component Absolute Monocytes is no longer being reported. The previously reported component Absolute Eosinophils is no longer being reported. The previously reported component Absolute Basophils is no longer being reported.Performed By: #### 20158-8 #### HARRY NOVAK ([id number]) [facility] ([place]) [address] [place], [place] [address]Eckmjzujd (Bld) [#/Vol]103 x10*3/vESdn907-595OgkuhsrjtwWestern Reserve HospitalComment on above:Order Comment: The previously reported component Neutrophils % is no longer being reported. The previously reported component Lymphocytes % is no longer being reported. The previously reported component Monocytes % is no longer being reported. The previously reported component Eosinophils % is no longer being reported. The previously reported component Basophils % is no longer being reported. The previously reported component Absolute Neutrophils is no longer being reported. The previously reported component Absolute Lymphocytes is no longer being reported. The previously reported component Absolute Monocytes is no longer being reported. The previously reported component Absolute Eosinophils is no longer being reported. The previously reported component Absolute Basophils is no longer being reported.Performed By: #### 56029-5 #### HARRY NOVAK ([id number]) [facility] ([place]) [address] [place], [place] [address]ZWJ (Bld) [#/Vol]2.03 x10*6/uLLow4.50-5.90UnWestern Reserve HospitalComment on above:Order Comment: The previously reported component Neutrophils % is no longer being reported. The previously reported component Lymphocytes % is no longer being reported. The previously reported component Monocytes % is no longer being reported. The previously reported component Eosinophils % is no longer being reported. The previously reported component Basophils % is no longer being reported. The previously reported component Absolute Neutrophils is no longer being reported. The previously reported component Absolute Lymphocytes is no longer being reported. The previously reported component Absolute Monocytes is no longer being reported. The previously reported component Absolute Eosinophils is no longer being reported. The previously reported component Absolute Basophils is no longer being reported.Performed By: #### 86880-2 #### HARRY NOVAK ([id number]) [facility] ([place]) [address] [place], [place] [address]FWS (Bld) [#/Vol]10.9 x10*3/uLNormal4.4-11.3[facility] WestComment on above:Order Comment: The previously reported component Neutrophils % is no longer being reported. The previously reported component Lymphocytes % is no longer being reported. The previously reported component Monocytes % is no longer being reported. The previously reported component Eosinophils % is no longer being reported. The previously reported component Basophils % is no longer being reported. The previously reported component Absolute Neutrophils is no longer being reported. The previously reported component Absolute Lymphocytes is no longer being reported. The previously reported component Absolute Monocytes is no longer being reported. The previously reported component Absolute Eosinophils is no longer being reported. The previously reported component Absolute Basophils is no longer being reported.Performed By: #### 46321-4 #### HARRY NOVAK ([id number]) [facility] ([place]) [address] [place], [place] [address]ZZT DNA RICK+probe Qn (P)on 77-62-4583VZJ DNA RESULTNot detectedNormalNot DetectedUnWestern Reserve HospitalComment on above:Order Comment: Reportable Range: 35-10,000,000 IU/mL.The prabhu CMV test is an in vitro nucleic acidamplification test for the quantitation of Cytomegalovirus (CMV) DNA in human EDTA plasma on the prabhu 6800/8800 Systems. The analytical quantification range of this assay has been determined to be 35 to 10,000,000 IU/ml in plasma.Mutations within the highly-conserved regions of the CMV DNA polymerase (UL54) gene covered by prabhu CMV may affect primers and/or probe binding resulting in the under-quantitation of virus or failure to detect the presence of virus. The prabhu CMV mitigates this risk through the use of redundant amplification primers. Negative test results do not preclude CMV infection or tissue-invasive CMV disease, and test results should therefore not be the sole basis for patient management decisionsIf the assay DETECTED the presence of the virus but was not able to accurately quantify the number of copies, the test result will be reported as <35 Detected or >10,000,000 Detected .The prabhu CMV is intended for use as an aid in the management of CMV in solid organtransplant patients and in hematopoietic stem cell transplant patients. In patients receiving anti-CMV therapy, serial DNA measurements can be used to assess viral response to treatment. The results from prabhu CMV must beinterpreted within the context of all relevant clinical and laboratory findings.This test is approved by the [place] Food and Drug Administration, and its performance characteristics verified by the Molecular Diagnostic Laboratory, Department of Pathology, [facility].Performed By: #### 33379-8 #### BRITTNEY Sung ([id number]) [facility] ([facility]) [address] [place], [place] [address]AWCQBDTHSBDMQVE DNA, PCR LOG IU/MLNSelect Medical Specialty Hospital - Cincinnati NorthComment on above:Order Comment: Reportable Range: 35- 10,000,000 IU/mL.The prabhu CMV test is an in vitro nucleic acidamplification test for the quantitation of Cytomegalovirus (CMV) DNA in human EDTA plasma on the prabhu 6800/8800 Systems. The analytical quantification range of this assay has been determined to be 35 to 10,000,000 IU/ml in plasma.Mutations within the highly-conserved regions of the CMV DNA polymerase (UL54) gene covered by prabhu CMV may affect primers and/or probe binding resulting in the under-quantitation of virus or failure to detect the presence of virus. The prabhu CMV mitigates this risk through the use of redundant amplification primers. Negative test results do not preclude CMV infection or tissue-invasive CMV disease, and test results should therefore not be the sole basis for patient management decisionsIf the assay DETECTED the presence of the virus but was not able to accurately quantify the number of copies, the test result will be reported as <35 Detected or >10,000,000 Detected .The prabhu CMV is intended for use as an aid in the management of CMV in solid organtransplant patients and in hematopoietic stem cell transplant patients. In patients receiving anti-CMV therapy, serial DNA measurements can be used to assess viral response to treatment. The results from prabhu CMV must beinterpreted within the context of all relevant clinical and laboratory findings.This test is approved by the [place] Food and Drug Administration, and its performance characteristics verified by the [facility] Diagnostic Laboratory, Department of Pathology, [facility].Result Comment: Not calculatedPerformed By: #### 22700-2 #### BRITTNEY ABBE Sung ([id number]) [facility] ([facility]) [address] [place], [place] [address]NA CHEST WO IV CONTRASTon [id number] CHEST WO IV CONTRAST Interpreted By: Rmairo Nolasco, STUDY: CT CHEST WO IV CONTRAST; 05/29/2025 2:16 pm INDICATION: Signs/Symptoms:Allo PBSCT eval. ,D47.1 Chronic myeloproliferative disease (Multi),Z76.82 Awaiting organ transplant status COMPARISON: 09/08/2024 ACCESSION NUMBER(S): [id number] ORDERING CLINICIAN: RHONA ATWOOD TECHNIQUE: Helical data acquisition of the chest was obtained without IV contrast material. Images were reformatted in axial, coronal, and sagittal planes. FINDINGS: LUNGS AND AIRWAYS: The trachea and central airways are patent. No endobronchial lesion. Evaluation of the lung parenchyma demonstrates significant interval improvement in the edema and effusions seen on the study of 09/08/2024. Evaluation of the lung parenchyma demonstrates persistent subpleural upper lobe ground-glass opacities. There is bibasilar opacities most likely atelectatic in nature. There are multiple calcified granulomas. There are no suspicious parenchymal lung nodules. MEDIASTINUM AND JUDD, LOWER NECK AND AXILLA: The visualized thyroid gland is within normal limits. Interval increase in size of multiple anterior mediastinal lymph nodes seen on the prior CT scan of 09/08/2024. Multiple calcified mediastinal and hilar lymph nodes consistent with remote granulomatous exposure. Esophagus appears within normal limits as seen. HEART AND VESSELS: The thoracic aorta is of normal course and caliber without vascular calcifications. Main pulmonary artery and its branches are normal in caliber. There are severe coronary artery calcifications. The study is not optimized for evaluation of coronary arteries. The cardiac chambers are not enlarged. No evidence of pericardial effusion. UPPER ABDOMEN: There is splenomegaly. There are multiple splenic calcifications consistent with remote granulomatous exposure. CHEST WALL AND OSSEOUS STRUCTURES: There are no suspicious osseous lesions. Multilevel degenerative changes are present IMPRESSION: 1. Evaluation of the lung parenchyma demonstrates subpleural reticulation with centrilobular ground-glass opacities. 2. Given the patient's significant pack-year smoking history this most likely represents a smoking related interstitial lung disease/ respiratory bronchiolitis. Inflammatory alveolitis secondary to GVHD or drug toxicity can be considered but is felt to be less likely. Leukemic infiltrates are felt to be less likely. 3. Findings consistent with remote granulomatous exposure with mediastinal parenchymal and splenic calcifications. 4. Extensive atherosclerotic calcifications of the coronary arteries. 5. Splenomegaly consistent with the patient's history of myeloproliferative disease. MACRO: None Signed by: Ramiro Nolasco 05/29/2025 3:56 PM Dictation workstation: [id number]a General HospitalCalcidiolon [id number]-bdyzeesmuclblm D3 [Mass/Vol]21 ng/fZOut66-465 [facility] WestComment on above:Order Comment: The previously reported component Neutrophils % is no longer being reported. The previously reported component Lymphocytes % is no longer being reported. The previously reported component Monocytes % is no longer being reported. The previously reported component Eosinophils % is no longer being reported. The previously reported component Basophils % is no longer being reported. The previously reported component Absolute Neutrophils is no longer being reported. The previously reported component Absolute Lymphocytes is no longer being reported. The previously reported component Absolute Monocytes is no longer being reported. The previously reported component Absolute Eosinophils is no longer being reported. The previously reported component Absolute Basophils is no longer being reported.Performed By: #### 09316-8 #### HARRY NOVAK ([id number]) [facility] ([place]) [address] [place], [place] [address]Qqwfdgrlyjk surface inducedon 20-65-8083bHEY Coag (PPP) [Time]27 fDexelj71-32KkibhmkrxpRegency Hospital Cleveland WestComment on above:Order Comment: The previously reported component Neutrophils % is no longer being reported. The previously reported component Lymphocytes % is no longer being reported. The previously reported component Monocytes % is no longer being reported. The previously reported component Eosinophils % is no longer being reported. The previously reported component Basophils % is no longer being reported. The previously reported component Absolute Neutrophils is no longer being reported. The previously reported component Absolute Lymphocytes is no longer being reported. The previously reported component Absolute Monocytes is no longer being reported. The previously reported component Absolute Eosinophils is no longer being reported. The previously reported component Absolute Basophils is no longer being reported.Performed By: #### 76463-7 #### HARRY NOVAK ([id number]) [facility] ([place]) [address] [place], [place] [address]Ggxtvbkvotm tissue factor inducedon 37-67-3026MZ Coag (PPP) [Time]14.1 sHigh9.8-12.4UnWestern Reserve HospitalComment on above:Performed By: #### 63830-8 #### HARRY NOVAK ([id number]) [facility] ([place]) [address] [place], [place] [address]Dltcmzhmamikr metabolic 2000 panelon 49-45-9960Hnefqnp BCP dye [Mass/Vol]4.3 g/dLNormal3.4-5.0UnWestern Reserve Hospital Comment on above:Performed By: #### 06944-5 #### HARRY NOVAK ([id number]) [facility] ([place]) [address] [place], [place] [address]LGX [Catalytic activity/Vol]72 U/QCubrqj06-605TbfubnzvgvWestern Reserve HospitalComment on above:Performed By: #### 98343-7 #### HARRY NOVAK ([id number]) [facility] ([place]) [address] [place], [place] [address]PWE With P-5'-P [Catalytic activity/Vol]15 U/OQrvvaw75-16 [facility] WestComment on above:Result Comment: Patients treated with Sulfasalazine may generate falsely decreased results for ALT.Performed By: #### 47941-5 #### HARRY NOVAK ([id number]) [facility] ([place]) [address] [place], [place] [address]Wjlag gap [Moles/Vol]14 mmol/RIibahz19-04IlvbafvghfWestern Reserve HospitalComment on above:Performed By: #### 22357-1 #### HARRY NOVAK ([id number]) [facility] ([place]) [address] [place], [place] [address]VSS With P-5'-P [Catalytic activity/Vol]17 U/LNormal9-39 [facility] WestComment on above:Performed By: #### 58111-2 #### HARRY NOVAK ([id number]) [facility] ([place]) [address] [place], [place] [address]Gmrradxag [Mass/Vol]0.9 mg/dLNormal0.0-1.2[facility] WestComment on above:Performed By: #### 49372-9 #### HARRY NOVAK (51277) [facility] ([place]) [address] [place], [place] [address]Lciftvn [Mass/Vol]9.4 mg/dLNormal8.6-10.3UnWestern Reserve HospitalComment on above:Performed By: #### 78858-3 #### HARRY NOVAK (36589) [facility] ([place]) [address], [place] [address]Visbziof [Moles/Vol]102 mmol/PCdmqke58-450UvyhsbiuafWestern Reserve HospitalComment on above:Performed By: #### 65873-3 #### HARRY NOVAK ([id number]) [facility] ([place]) [address] [place], [place] [address]QT4 [Moles/Vol]27 mmol/PPmcidi26-70LdekfbmukuWestern Reserve HospitalComment on above:Result Comment: Bicarbonate results may be falsely elevated when Lactate Dehydrogenase (LDH) concentrations exceed 2,000 U/L due to a temporary reagent manufacturing issue. If significantly elevated LDH levels are suspected, interpret bicarbonate results with caution, correlate with the patient's clinical status, and consider confirming CO2 values using a blood gas analyzer.Performed By: #### 77294-1 #### HARRY NOVAK ([id number]) [facility] ([place]) [address] [place], [place] [address]Pvxagixbcv [Mass/Vol]1.14 mg/dLNormal0.50-1.30UnWestern Reserve HospitalComment on above:Performed By: #### 28215-4 #### HARRY NOVAK ([id number]) [facility] ([place]) [address] [place], [place] [address]Qncfumqkdb filtration rate71 mL/min/1.73m*2Normal>60 [facility] WestComment on above:Result Comment: Calculations of estimated GFR are performed using the 2020 CKD-EPI Study Refit equation without the race variable for the IDMS-Traceable creatinine methods. https://jasn.asnjournals.org/content/early//ASN.6465220811Tdiasvkyp By: #### 73140-2 #### HARRY NOVAK ([id number]) [facility] ([place]) [address] [place], [place] [address]Syliqvc [Mass/Vol]99 mg/oGQzbwas49-11WezwnrsbtyWestern Reserve HospitalComment on above:Performed By: #### 52596-6 #### HARRY NOVAK (56740) [facility] ([place]) [address] [place], [place] [address]Icsgsqyas [Moles/Vol]4.8 mmol/LNormal3.5-5.3UnWestern Reserve HospitalComment on above:Performed By: #### 47101-3 #### HARRY NOVAK (54995) [facility] ([place]) [address] [place], [place] [address]Kytnvzw [Mass/Vol]8.4 g/dLHigh6.4-8.2UnWestern Reserve HospitalComment on above:Performed By: #### 89873-5 #### HARRY NOVAK (12298) [facility] ([place]) [address] [place], [place] [address]Sotxge [Moles/Vol]138 mmol/GBwigzy847-425CigemonlcdRegency Hospital Cleveland WestComment on above:Performed By: #### 26023-0 #### HARRY NOVAK (51103) [facility] ([place]) [address] [place], [place] [address]Jyjn nitrogen [Mass/Vol]19 mg/dLNormal6-23[facility] WestComment on above:Performed By: #### 74435-7 #### HARRY NOVAK ([id number]) [facility] ([place]) [address] [place], [place] [address]Xgccwudgoadayzw Ab.IgG avidityon 49-31-0657HKZ IgG avidity IA [Ratio]Non-ReactiveNormalNonreactiveUnWestern Reserve HospitalComment on above:Performed By: #### 33462-9 #### HARRY NOVAK ([id number]) [facility] ([place]) [address] [place], [place] [address]Kkiie of abuse screen W Reflex confirm panel (U)on 05-29-2025 Amphetamines Screen Ql (U)NegativeNormalPresumptive NegativeRegency Hospital Cleveland WestComment on above:Order Comment: Drug screen results are presumptive and should not be used to assesscompliance with prescribed medication. Definitive confirmatory drug testinghas been added to this sample for any positive screen result and will bereported separately.Toxicology screening results are reported qualitatively. The concentration mustbe greater than or equal to the cutoff to be reported as positive. Theconcentrationat which the screening test can detect an individual drug or metabolite varies.The abse nce of expected drug(s) and/or drug metabolite(s) may indicate non- compliance,inappropriate timing of specimen collection relative to drug administration, poor drugabsorption, diluted/adulterated urine, or limitations of testing. For medical purposesonly; not valid for forensic use.Interpretive questions should be directed to the laboratory medical directors.Result Comment: CUTOFF LEVEL: 500 NG/ML Cross-reactivity has been reported with high concentrations of the following drugs: buproprion, chloroquine, chlorpromazine, ephedrine, mephentermine, fenfluramine, phentermine, phenylpropanolamine, pseudoephedrine, and propranolol.Performed By: #### 36392-1 #### BRITTNEY Sung ([id number]) [facility] ([facility]) [address] [place], [place] [address]Ybjcvoztoqeh Screen Ql (U)NegativeNormalPresumptive Negative [facility] WestComment on above:Order Comment: Drug screen results are presumptive and should not be used to assesscompliance with prescribed medication. Definitive confirmatory drug testinghas been added to this sample for any positive screen result and will bereported separately.Toxicology screening results are reported qualitatively. The concentration mustbe greater than or equal to the cutoff to be reported as positive. Theconcentrationat which the screening test can detect an individual drug or metabolite varies.The absence of expected drug(s) and/or drug metabolite(s) may indicate non-compliance,inappropriate timing of specimen collection relative to drug administration, poor drugabsorption, diluted/adulterated urine, or limitations of testing. For medical purposesonly; not valid for forensic use.Interpretive questions should be directed to the laboratory medical directors.Result Comment: CUTOFF LEVEL: 200 NG/MLPerformed By: #### 64130-8 #### BRITTNEY Sung ([id number]) [facility] ([facility]) [address] [place], [place] [address]Owmvwmozxjwigvb Ql (U)NegativeNormalPresumptive Negative [facility] WestComment on above:Order Comment: Drug screen results are presumptive and should not be used to assesscompliance with prescribed medication. Definitive confirmatory drug testinghas been added to this sample for any positive screen result and will bereported separately.Toxicology screening results are reported qualitatively. The concentration mustbe greater than or equal to the cutoff to be reported as positive. Theconcentrationat which the screening test can detect an individual drug or metabolite varies.The absence of expected drug(s) and/or drug metabolite(s) may indicate non-compliance,inappropriate timing of specimen collection relative to drug administration, poor drugabsorption, diluted/adulterated urine, or limitations of testing. For medical purposesonly; not valid for forensic use.Interpretive questions should be directed to the laboratory medical directors.Result Comment: CUTOFF LEVEL: 200 NG/MLPerformed By: #### 03215-3 #### BRITTNEY Sung ([id number]) [facility] ([facility]) [address] [place] [address]Hwctcdyclipluyd Screen Ql (U)NegativeNormalPresumptive NegativeRegency Hospital Cleveland WestComment on above:Order Comment: Drug screen results are presumptive and should not be used to assesscompliance with prescribed medication. Definitive confirmatory drug testinghas been added to this sample for any positive screen result and will bereported separately.Toxicology screening results are reported qualitatively. The concentration mustbe greater than or equal to the cutoff to be reported as positive. Theconcentrationat which the screening test can detect an individual drug or metabolite varies.The absence of expected drug(s) and/or drug metabolite(s) may indicate non-compliance,inappropriate timing of specimen collection relative to drug administration, poor drugabsorption, diluted/adulterated urine, or limitations of testing. For medical purposesonly; not valid for forensic use.Interpretive questions should be directed to the laboratory medical directors.Result Comment: CUTOFF LEVEL: 150 NG/MLPerformed By: #### 19337-5 #### BRITTNEY Sung ([id number]) [facility] ([facility]) [address] [place], [place] [address]Swpbszwqxvoi Screen Ql (U)NegativeNormalPresumptive Negative [facility] WestComment on above:Order Comment: Drug screen results are presumptive and should not be used to assesscompliance with prescribed medication. Definitive confirmatory drug testinghas been added to this sample for any positive screen result and will bereported separately.Toxicology screening results are reported qualitatively. The concentration mustbe greater than or equal to the cutoff to be reported as positive. Theconcentrationat which the screening test can detect an individual drug or metabolite varies.The absence of expected drug(s) and/or drug metabolite(s) may indicate non-compliance,inappropriate timing of specimen collection relative to drug administration, poor drugabsorption, diluted/adulterated urine, or limitations of testing. For medical purposesonly; not valid for forensic use.Interpretive questions should be directed to the laboratory medical directors.Result Comment: CUTOFF LEVEL: 50 NG/MLPerformed By: #### 17657-3 #### BRITTNEY NOELER L ([id number]) [facility] ([facility]) [address] [place], [place] [address]vaawtZIS+Norfentanyl Screen Ql (U)NegativeNormalPresumptive NegativeRegency Hospital Cleveland WestComment on above:Order Comment: Drug screen results are presumptive and should not be used to assesscompliance with prescribed medication. Definitive confirmatory drug testinghas been added to this sample for any positive screen result and will bereported separately.Toxicology screening results are reported qualitatively. The concentration mustbe greater than or equal to the cutoff to be reported as positive. Theconcentrationat which the screening test can detect an individual drug or metabolite varies.The absence of expected drug(s) and/or drug metabolite(s) may indicate non-compliance,inappropriate timing of specimen collection relative to drug administration, poor drugabsorption, diluted/adulterated urine, or limitations of testing. For medical purposesonly; not valid for forensic use.Interpretive questions should be directed to the laboratory medical directors.Result Comment: CUTOFF LEVEL: 5 NG/MLPerformed By: #### 31038-2 #### BRITTNEY CLIFTONTZER L ([id number]) [facility] ([facility]) [address] [place], [place] [address]Scvznnyue Screen Ql (U)NegativeNormalPresumptive Negative [facility] WestComment on above:Order Comment: Drug screen results are presumptive and should not be used to assesscompliance with prescribed medication. Definitive confirmatory drug testinghas been added to this sample for any positive screen result and will bereported separately.Toxicology screening results are reported qualitatively. The concentration mustbe greater than or equal to the cutoff to be reported as positive. Theconcentrationat which the screening test can detect an individual drug or metabolite varies.The absence of expected drug(s) and/or drug metabolite(s) may indicate non-compliance,inappropriate timing of specimen collection relative to drug administration, poor drugabsorption, diluted/adulterated urine, or limitations of testing. For medical purposesonly; not valid for forensic use.Interpretive questions should be directed to the laboratory medical directors.Result Comment: CUTOFF LEVEL: 150 NG/ML The metabolite H-xjagy-tfdropnmnagmqm (LAAM) is not detected by this method in concentrations that would be found in the urine of patients on LAAM therapy.Performed By: #### 31406-5 #### BRITTNEY Sung ([id number]) [facility] ([facility]) [address] [place], [place] [address]Smhemur Screen Ql (U)NegativeNormalPresumptive Negative [facility] WestComment on above:Order Comment: Drug screen results are presumptive and should not be used to assesscompliance with prescribed medication. Definitive confirmatory drug testinghas been added to this sample for any positive screen result and will bereported separately.Toxicology screening results are reported qualitatively. The concentration mustbe greater than or equal to the cutoff to be reported as positive. Theconcentrationat which the screening test can detect an individual drug or metabolite varies.The absence of expected drug(s) and/or drug metabolite(s) may indicate non-compliance,inappropriate timing of specimen collection relative to drug administration, poor drugabsorption, diluted/adulterated urine, or limitations of testing. For medical purposesonly; not valid for forensic use.Interpretive questions should be directed to the laboratory medical directors.Result Comment: CUTOFF LEVEL: 300 NG/ML The opiate screen does not detect fentanyl, meperidine, or tramadol. Oxycodone is not consistently detected (refer to Oxycodone Screen, Urine result).Performed By: #### 54328-4 #### BRITTNEY Sung ([id number]) [facility] ([facility]) [address] [place], [place] [address]nliXTAPIP+oxyMORphone Screen Ql (U)NegativeNormalPresumptive NegativeRegency Hospital Cleveland WestComment on above:Order Comment: Drug screen results are presumptive and should not be used to assesscompliance with prescribed medication. Definitive confirmatory drug testinghas been added to this sample for any positive screen result and will bereported separately.Toxicology screening results are reported qualitatively. The concentration mustbe greater than or equal to the cutoff to be reported as positive. Theconcentrationat which the screening test can detect an individual drug or metabolite varies.The absence of expected drug(s) and/or drug metabolite(s) may indicate non-compliance,inappropriate timing of specimen collection relative to drug administration, poor drugabsorption, diluted/adulterated urine, or limitations of testing. For medical purposesonly; not valid for forensic use.Interpretive questions should be directed to the laboratory medical directors.Result Comment: CUTOFF LEVEL: 100 NG/ML This test will accurately detect both oxycodone and oxymorphone.Performed By: #### 06019-8 #### BRITTNEY Sung ([id number]) [facility] ([facility]) [address] [place], [place] [address]Xekdgrwngwoul Ql (U)NegativeNormalPresumptive Negative [facility] WestComment on above:Order Comment: Drug screen results are presumptive and should not be used to assesscompliance with prescribed medication. Definitive confirmatory drug testinghas been added to this sample for any positive screen result and will bereported separately.Toxicology screening results are reported qualitatively. The concentration mustbe greater than or equal to the cutoff to be reported as positive. Theconcentrationat which the screening test can detect an individual drug or metabolite varies.The absence of expected drug(s) and/or drug metabolite(s) may indicate non-compliance,inappropriate timing of specimen collection relative to drug administration, poor drugabsorption, diluted/adulterated urine, or limitations of testing. For medical purposesonly; not valid for forensic use.Interpretive questions should be directed to the laboratory medical directors.Result Comment: CUTOFF LEVEL: 25 NG/ML Cross-reactivity has been reported with dextromethorphan.Performed By: #### 76273-0 #### BRITTNEY Sung ([id number]) [facility] ([facility]) [address] [place], [place] [address]MKA DNA RICK+probe Qnon 05-72-4549KIY DNA RESULTNot detected NormalNot DetectedUnWestern Reserve HospitalComment on above: Order Comment: Reportable Range: 35-100,000,000 IU/mL.The prabhu EBV test is an in vitro nucleic acid amplification dual target assay for the quantitation of Aubree-Maldonado virus (EBV) DNA in human EDTAplasma on the prabhu 6800/8800 Systems. The test employs a dual target virus specific approach from highly-conserved regions of the EBV located in the EBV EBNA-1gene and the EBV BMRF gene. The analytical quantification range of this assay has been determined to be 35 to 100,000,000 IU/ml in plasma.As with any molecular test, mutations within the target regions of prabhu EBV could affect primer and/or probe binding resulting in the under-quantitation of virus or failure to detect the presence of virus.If the assay DETECTED the presence of the virus but was not able to accurately quantify the number of copies, the test result will be reported as <35 Detected or >100,000,000 Detected .The prabhu EBV test is intended for use as an aid in the management of EBV in transplant patients. In patients undergoing monitoring of EBV, serial DNA measurements can be used to indicate the need for potential treatment changes and to assess response to treatment. The results from prabhu EBV are intended to be read and analyzed by a qualified licensed healthcare professional in conjunction with clinical signs and symptoms and relevant laboratory findings. Negative test results do not preclude EBVinfection or EBV disease. Test results must not be the sole basis for patient management decisions.This test is approved by the [place] Food and Drug Administration, and its performance characteristics verified by the Molecular Diagnostic Laboratory, Department of Pathology, [facility].Performed By: #### 93946-8 #### BRITTNEY Sugn ([id number]) [facility] ([facility]) [address] [place], [place] [address]GRW PCR PLASMA LOG IU/MLNSelect Medical Specialty Hospital - Cincinnati NorthComment on above:Order Comment: Reportable Range: 35-100,000,000 IU/mL.The prabhu EBV test is an in vitro nucleic acid amplification dual target assay for the quantitation of Aubree-Maldonado virus (EBV) DNA in human EDTAplasma on the prabhu 6800/8800 Systems. The test employs a dual target virus specific approach from highly-conserved regions of the EBV located in the EBV EBNA-1gene and the EBV BMRF gene. The analytical quantification range of this assay has been determined to be 35 to 100,000,000 IU/ml in plasma.As with any molecular test, mutations within the target regions of prabhu EBV could affect primer and/o r probe binding resulting in the under-quantitation of virus or failure to detect the presence of virus.If the assay DETECTED the presence of the virus but was not able to accurately quantify the number of copies, the test result will be reported as <35 Detected or >100,000,000 Detected .The prabhu EBV test is intended for use as an aid in the management of EBV in transplant patients. In p atients undergoing monitoring of EBV, serial DNA measurements can be used to indicate the need for potential treatment changes and to assess response to treatment. The results from prabhu EBV are intended to be read and analyzed by a qualified licensed healthcare professional in conjunction with clinical signs and symptoms and relevant laboratory findings. Negative test results do not preclude EBVinfection or EBV disease. Test results must not be the sole basis for patient management decisions.This test is approved by the [place] Food and Drug Administration, and its performance characteristics verified by the [facility] Diagnostic Laboratory, Department of Pathology, [facility].Result Comment: Not calculatedPerformed By: #### 27080-2 #### BRITTNEY Sung ([id number]) [facility] ([facility]) [address] [place], [place] [address]IYJZXBB-ZFZC VIRUS ANTIBODY PANELon 11-02-5010IRZ capsid IgG IA Qn (S)PositiveAbnormalNegativeUnWestern Reserve Hospital Comment on above:Order Comment: EBV INTERPRETATION CHARTPRIMARY ACUTEVCA-IGG: +/-VCA-IGM: +/-EA-IGG: +/-NA-IGG: -LATE ACUTEVCA-IGG: +VCA-IGM: +/-EA-IGG: +/-NA-IGG: +/-RECOVERINGVCA-IGG: +VCA-IGM: -EA-IGG: +NA-IGG: -PREVIOUS INFECTIONVCA-IGG: +VCA-IGM: -EA-IGG: -NA-IGG: +/-Performed By: #### 57703-6 #### BRITTNEY Sung ([id number]) [facility] ([facility]) [address] [place], [place] [address]TLU capsid IgM IA Qn (S)NegativeNormalNegMercy Health St. Rita's Medical CenterComment on above:Order Comment: EBV INTERPRETATION CHARTPRIMARY ACUTEVCA-IGG: +/-VCA-IGM: +/-EA-IGG: +/-NA-IGG: -LATE ACUTEVCA-IGG: +VCA-IGM: +/-EA-IGG: +/-NA-IGG: +/-RECOVERINGVCA-IGG: +VCA- IGM: -EA-IGG: +NA-IGG: -PREVIOUS INFECTIONVCA-IGG: +VCA-IGM: -EA-IGG: -NA-IGG: +/-Performed By: #### 47092-1 #### BRITTNEY Sung ([id number]) [facility] ([facility]) [address] [place], [place] [address]OUA early IgG Ql (S)PositiveAbnormalNegMercy Health St. Rita's Medical CenterComment on above:Order Comment: EBV INTERPRETATION CHARTPRIMARY ACUTEVCA-IGG: +/-VCA-IGM: +/-EA-IGG: +/-NA-IGG: -LATE ACUTEVCA-IGG: +VCA-IGM: +/-EA-IGG: +/-NA-IGG: +/-RECOVERINGVCA-IGG: +VCA- IGM: -EA-IGG: +NA-IGG: -PREVIOUS INFECTIONVCA-IGG: +VCA-IGM: -EA-IGG: -NA-IGG: +/-Performed By: #### 78162-2 #### BRITTNEY Sung ([id number]) [facility] ([facility]) [address] [place], [place] [address]QED nuclear Ab Ql (S)PositiveAbnormohNegMercy Health St. Rita's Medical CenterComment on above:Order Comment: EBV INTERPRETATION CHARTPRIMARY ACUTEVCA-IGG: +/-VCA-IGM: +/-EA-IGG: +/-NA-IGG: -LATE ACUTEVCA-IGG: +VCA-IGM: +/-EA-IGG: +/-NA-IGG: +/-RECOVERINGVCA-IGG: +VCA- IGM: -EA-IGG: +NA-IGG: -PREVIOUS INFECTIONVCA-IGG: +VCA-IGM: -EA-IGG: -NA-IGG: +/-Performed By: #### 90342-2 #### BRITTNEY Sung ([id number]) [facility] ([facility]) [address] [place], [place] [address]Unqacdifem 35-77-2138Kyosfzux [Mass/Vol]1260 ng/lVUowl04-261 [facility] WestComment on above:Performed By: #### 12844-9 #### HARRY NOVAK ([id number]) [facility] ([facility]) [address] [place], [place] [address]OFQ 1+2 Ab+HIV1 p24 Agon 20-76-6950YOO 1+2 Ab+HIV1 p24 Ag IA QlNon-ReactiveNormalNonreactiveUnWestern Reserve Hospital Comment on above:Order Comment: HIV Ag/Ab screen is performed using the Siemens P4RC HIV Ag/Ab Combo assay whichdetects the presence of HIV p24 antigen as well as antibodies to HIV-1 (Group M and O) and HIV-2.Nolaboratory evidence of HIV infection. If acute HIV infection is suspected, consider testing for HIVRNA by PCR (viral load).Performed By: #### 05329-0 #### HARRY NOVAK ([id number]) [facility] ([place]) [address] [place], [place] [address]FKX 1+2 IgG IA Qn (S)on 52-52-2736ZVBFIW SIMPLEX VIRUS 1 IGG 2.8 INDEXHigh<0.9[facility] WestComment on above: Order Comment: POTENTIAL FOR CROSS-REACTIVITY BETWEENHSV I AND HSV II EXISTS. Result Comment: NEGATIVE <0.9 EQUIVOCAL >=0.90 <=1.10 POSITIVE >1.10Performed By: #### 46352-1 #### BRITTNEY Sung ([id number]) [facility] ([facility]) [address] [place], [place] [address]MOIFEI SIMPLEX VIRUS 2 IGG<0.2Normal<0.9[facility] WestComment on above:Order Comment: POTENTIAL FOR CROSS- REACTIVITY BETWEENHSV I AND HSV II EXISTS.Result Comment: NEGATIVE <0.9 EQUIVOCAL >=0.90 <=1.10 POSITIVE >1.10Performed By: #### 79640-8 #### BRITTNEY Sung ([id number]) [facility] ([facility]) [address] [place], [place] [address]Fbgpsaklp B virus core Abon 49-65-7332MRI core Ab Ql (S) Non-ReactiveNormKettering Health Springfield Comment on above:Performed By: #### 82485-2 #### HARRY NOVAK ([id number]) [facility] ([place]) [address] [place], [place] [address]Zmwascyig B virus core Ab.IgMon 77-31-0203RAJ core IgM Ql (S) Non-ReactiveNoTriHealth Good Samaritan Hospital Comment on above:Result Comment: Results from patients taking biotin supplements or receiving high-dose biotin therapy should be interpreted with caution due to possible interference with this test. Providers may contact their local laboratory for further information.Performed By: #### 30308-7 #### HARRY NOVAK ([id number]) [facility] ([place]) [address] [place], [place] [address]Bouoiotkm B virus surface Abon 91-13-1533XHI surface Ab Qn (S)11.2 mIU/mLHigh<10.0[facility] WestComment on above:Result Comment: Interpretive Criteria: <10 mIU/mL Nonreactive >=10 mIU/mL Reactive Biotin interference may cause falsely decreased results. Patients taking a Biotin dose of up to 5 mg/day should refrain from taking Biotin for 24 hours before sample collection. Providers may contacttheir local laboratory for further information. The result suggests protective immunity to HBV infection, which may result from prior HBV vaccination, a blood transfusion, or recovery from an HBV infection. Performed By: #### 64572-8 #### BRITTNEY Sung ([id number]) [facility] ([facility]) [address] [place], [place] [address]Nmytnimwb B virus surface Agon 35-22-7567JBI surface Ag IA Ql Non-ReactiveNormalNonreactiveUnWestern Reserve Hospital Comment on above:Result Comment: Biotin interference may cause falsely decreased results. Patients taking a Biotin dose of up to 5 mg/day should refrain from taking Biotin for 24 hours before sample collection. Providers may contact their local laboratory for further information.Performed By: #### 48737-9 #### HARRY NOVAK ([id number]) [facility] ([place]) [address] [place], [place] [address]Wzbrazync C virus Abon 88-91-8073KNQ Ab Ql (S)Non-Reactive NormalNonactiveRegency Hospital Cleveland WestComment on above: Result Comment: Results from patients taking biotin supplements or receiving high-dose biotin therapy should be interpreted with caution due to possible interference with this test. Providers may contact their local laboratory for further information.Performed By: #### 61612-1 #### HARRY NOVAK (43451) [facility] ([place]) [address] [place], [place] [address]Yglfdkzxaat 20-59-1341Ujziayoob [Mass/Vol]1.82 mg/dLNormal 1.60-2.40UnWestern Reserve HospitalComment on above:Performed By: #### 17543-5 #### HARRY NOVAK (14546) [facility] ([place]) [address] [place], [place] [address]Ovmaxn differential performed Ql (Bld)on 29-06-2645Ymzu form neutrophils (Bld) [#/Vol]2.94 x10*3/uLHigh0.00-0.70[facility] WestComment on above:Performed By: #### 96429-2 #### HARRY NOVAK (34298) [facility] ([place]) [address] [place], [place] [address]Wxqw form neutrophils/100 WBC (Bld)27.0 %Normal0.0-5.0 [facility] WestComment on above:Performed By: #### 14081-3 #### HARRY NOVAK (32561) [facility] ([place]) [address] [place], [place] [address]Ntloedkuk (Bld) [#/Vol]0.22 x10*3/uLHigh0.00-0.10[facility] WestComment on above:Performed By: #### 38309-7 #### HARRY NOVAK (01112) [facility] ([place]) [address] [place], [place] [address]Seiprixgt/100 WBC (Bld)2.0 %Normal0.0-2.0UnWestern Reserve HospitalComment on above:Performed By: #### 49010-1 #### HARRY NOVAK ([id number]) [facility] ([place]) [address] [place], [place] [address]Leeeb Counted Total (Bld) [#]100Ashtabula General HospitalComment on above:Performed By: #### 40873-5 #### HARRY NOVAK ([id number]) [facility] ([place]) [address] [place], [place] [address]Xepdjedske LM Ql (Bld)FewAshtabula General HospitalComment on above:Performed By: #### 49007-3 #### HARRY NOVAK (33572) [facility] ([place]) [address] [place], [place] [address]Fgpojvhoqul (Bld) [#/Vol]0.00 x10*3/uLNormal0.00-0.70 [facility] WestComment on above:Performed By: #### 87134-9 #### HARRY NOVAK (08684) [facility] ([place]) [address] [place], [place] [address]Alseeodinaw/100 WBC (Bld)0.0 %Normal0.0-6.0UnWestern Reserve HospitalComment on above:Performed By: #### 69025-0 #### HARRY NOVAK (30967) [facility] ([place]) [address] [place], [place] [address]Pnpwazjbjnn Ql (Bld)MildNormalUniMemorial Health System Selby General HospitalComment on above:Performed By: #### 94114-9 #### HARRY NOVAK (64532) [facility] ([place]) [address] [place], [place] [address]Dhoehibyagh (Bld) [#/Vol]0.87 x10*3/uLLow1.20-4.80UnWestern Reserve HospitalComment on above:Performed By: #### 05529-6 #### HARRY NOVAK (69152) [facility] ([place]) [address] [place] [place], [place] [address]Hkddrczzkwy/100 WBC (Bld)8.0 %Fyhddb52.0-44.0[facility] WestComment on above:Performed By: #### 44643-4 #### HARRY NOVAK (13496) [facility] ([place]) [address] [place], [place] [address]Xvktwjwlhbqhxh (Bld) [#/Vol]0.11 x10*3/uLNormal0.00-0.00 [facility] WestComment on above:Performed By: #### 86636-2 #### HARRY NOVAK (06318) [facility] ([place]) [address] [place] [place], [place] [address]Gbqrbsywuhtmbz/100 WBC (Bld)1.0 %Normal0.0-0.0UnWestern Reserve HospitalComment on above:Performed By: #### 74745-6 #### HARRY NOVAK (27526) [facility] ([place]) [address] [place] [place], [place] [address]Rwzufdzpg (Bld) [#/Vol]0.11 x10*3/uLNormal0.10-1.00[facility] WestComment on above:Performed By: #### 55886-2 #### HARRY NOVAK (80428) [facility] ([place]) [address] [place], [place] [address]Icuvjtera/100 WBC (Bld)1.0 %Normal2.0-10.0[facility] WestComment on above:Performed By: #### 99165-0 #### HARRY NOVAK (29654) [facility] ([place]) [address] [place], [place] [address]Qkezhuizly (Bld) [#/Vol]0.33 x10*3/uLNormal0.00-0.00 [facility] WestComment on above:Performed By: #### 41895-4 #### HARRY NOVAK (88326) [facility] ([place]) [address] [place], [place] [address]Lpgtdylofa/100 WBC (Bld)3.0 %Normal0.0-0.0[facility] WestComment on above:Performed By: #### 60700-6 #### HARRY NOVAK (96386) [facility] ([place]) [address] [place], [place] [address]Whluoyjcdnt (Bld) [#/Vol]9.15 x10*3/uLHigh1.20-7.70[facility] WestComment on above:Performed By: #### 84714-9 #### HARRY NOVAK (24124) [facility] ([place]) [address] [place], [place] [address]Udujcklpap LM Ql (Bld)[facility]ventHealth OrlandoalUniMemorial Health System Selby General HospitalComment on above:Performed By: #### 24377-6 #### HARRY NOVAK (06175) [facility] ([place]) [address] [place], [place] [address]QEF morphology finding Nom (Bld)See BelowAshtabula General HospitalComment on above:Performed By: #### 08552-6 #### HARRY NOVAK ([id number]) [facility] ([place]) [address] [place], [place] [address]Voxupuvsfcxy LM Ql (Bld)FewNoSelect Medical Specialty Hospital - Southeast OhioComment on above:Performed By: #### 05557-0 #### HARRY NOVAK (21636) [facility] ([place]) [address] [place] [place], [place] [address]Eibcqgtcb neutrophils (Bld) [#/Vol]6.21 x10*3/uLNormal 1.20-7.00UnWestern Reserve HospitalComment on above:Performed By: #### 72856-2 #### HARRY NOVAK ([id number]) [facility] ([place]) [address] [place], [place] [address]Jxwhzcylr neutrophils/100 WBC (Bld)57.0 %Kwmdco38.0-80.0 [facility] WestComment on above:Result Comment: Percent differential counts (%) should be interpreted in the context of the absolute cell counts (cells/uL).Performed By: #### 90125-7 #### HARRY NOVAK ([id number]) [facility] ([place]) [address] [place], [place] [address]Wanymeb lymphocytes (Bld) [#/Vol]0.11 x10*3/uLNormal0.00-0.50 [facility] WestComment on above:Performed By: #### 25539-9 #### HARRY NOVAK (53019) [facility] ([place]) [address] [place], [place] [address]Pbugybz lymphocytes/100 WBC (Bld)1.0 %Normal0.0-2.0UnWestern Reserve HospitalComment on above:Performed By: #### 77489-4 #### HARRY NOVAK ([id number]) [facility] (SADIE) [id number] [place] [address] 43917Tzmterjcezc peptide B [Mass/Vol]on 29-67-1732Yhmqdcckovf peptide B (Bld) [Mass/Vol]81 pg/mLNormal0-99UnWestern Reserve HospitalComment on above:Order Comment: <100 pg/mL - Heart failure umqnvhnu463-095 pg/mL - Intermediate probability of acute heart failure exacerbation. Correlate with clinical context and patient history. >=300 pg/mL - Heart Failure likely. Correlate with clinical context and patient history.Biotin interference may cause falsely decreased results. Patients taking a Biotin dose of up to 5 mg/day should refrain fromtaking Biotin for 24 hours before sample collection. Providers may contact their local laboratory for further information.Performed By: #### [id number] #### BRITTNEY Sung ([id number]) [facility] ([facility] [id number] [place] [address] 87148LK Coag (PPP) [Time]on 45-92-9707ATN Coag (PPP) [Relative time]1.3High0.9-1.1[facility] WestComment on above:Performed By: #### 53681-1 #### HARRY NOVAK ([id number]) [facility] ([place]) [id number] [place] [address] 64214ULYWKKYVCWGUD ECHO (TTE) COMPLETEon [id number] ECHO (TTE) [facility], [address] [place] [address] and TRANSTHORACIC ECHOCARDIOGRAM REPORT Patient Name: PENNY Garcia Physician: [id number] Zeny Marks MD Study Date: 05/29/2025 Ordering Provider: [id number] RHONA ATWOOD MRN/PID: [id number] Fellow: Nurse: Tootie Erwin RN Date of /Age: 3 1960 Utility Specialist: Brittney lynch RDCS Gender assigned at M Additional Staff: : Height: 172.72 cm Admit Date: Weight: 70.31 kg Admission Status: Outpatient BSA / BMI: 1.83 m2 / 23.57 kg/m2 Blood Pressure: 125/55 mmHg Department Location: [facility] Non Invasive Study Type: TRANSTHORACIC ECHO (TTE) COMPLETE Diagnosis/ICD: Encounter for monitoring cardiotoxic drug therapy-Z51.81 Indication: Allo PBSCT eval CPT Code: Echo Complete w Full Doppler-11345 Patient History: Pertinent History: HLD, Myelofibrosis, pleural effusion on right. Study Detail: The following Echo studies were performed: 2D, M-Mode, Doppler and color flow. Optison used as a contrast agent for endocardial border definition. Total contrast used for this procedure was 2 mL via IV push. PHYSICIAN INTERPRETATION: Left Ventricle: Left ventricular ejection fraction is normal calculated by Castro's biplane at 58%. There are no regional left ventricular wall motion abnormalities. The left ventricular cavity sizeis mildly dilated. There is normal septal and normal posterior left ventricular wall thickness. Spectral Doppler shows a Grade I (impaired relaxation pattern) of left ventricular diastolic filling with normal left atrial filling pressure. There is no definite left ventricular thrombus visualized. Left Atrium: The left atrium is mildly dilated. Right Ventricle: The right ventricle is normal in size. There is normal right ventricular global systolic function. Right Atrium: The right atrium is upper limits of normal in size. Aortic Valve: The aortic valve is trileaflet. The aortic valve area by VTI is 2.86 cm?? with a peakvelocity of 1.55 m/s. The peak and mean gradients are 10 mmHg and 4 mmHg, respectively with a dimensionless index of 0.83. There is no evidence of aortic valve regurgitation. Mitral Valve: The mitral valve is normal in structure. There is trace mitral valve regurgitation. The E Vmax is 0.90 m/s. Tricuspid Valve: The tricuspid valve is structurally normal. There is trace tricuspid regurgitation. The right ventricular systolic pressure could not be estimated. Pulmonic Valve: The pulmonic valve is structurally normal. There is physiologic pulmonic valve regurgitation. Pericardium: Trivial pericardial effusion. Aorta: The aortic root is normal. Systemic Veins: The hepatic vein appears to be of normal size. The inferior vena cava appears normal in size, with IVC inspiratory collapse greater than 50%. In comparison to the previous echocardiogram(s): There are no prior studies on this patient for comparison purposes. No prior echocardiogram available for comparison. CONCLUSIONS: 1. Left ventricular ejection fraction is normal calculated by Castro's biplane at 58%. 2. Spectral Doppler shows a Grade I (impaired relaxation pattern) of left ventricular diastolic filling with normal left atrial filling pressure. 3. Left ventricular cavity size is mildly dilated. 4. No left ventricular thrombus visualized. 5. There is normal right ventricular global systolic function. 6. The left atrium is mildly dilated. 7. The inferior vena cava appears normal in size, with IVC inspiratory collapse greater than 50%. 8. No prior echocardiogram available for comparison. QUANTITATIVE DATA SUMMARY: 2D MEASUREMENTS: Normal Ranges: Ao Root d: 3.50 cm (2.0-3.7cm) LAs: 4.40 cm (2.7-4.0cm) IVSd: 0.90 cm (0.6-1.1cm) LVPWd: 0.90 cm (0.6-1.1cm) LVIDd: 4.70 cm (3.9-5.9cm) LVIDs: 3.60 cm LV Mass Index: 78 g/m2 LVEDV Index: 85 ml/m2 LV % FS 23.4 % LEFT ATRIUM: Normal Ranges: LA Vol A4C: 72.7 ml (22+/-6mL/m2) LA Vol A2C: 59.5 ml LA Vol BP: 66.0 ml LA Vol Index A4C: 39.6ml/m2 LA Vol Index A2C: 32.4 ml/m2 LA Vol Index BP: 36.0 ml/m2 LA Area A4C: 21.9 cm2 LA Area A2C: 19.9 cm2 LA Major [place] A4C: 5.6 cm LA [place] A2C: 5.7 cm LA Volume Index: 36.0 ml/m2 RIGHT ATRIUM: Normal Ranges: RA Area A4C: 17.6 cm2 AORTA MEASUREMENTS: Normal Ranges: Asc Ao, d: 3.30 cm (2.1-3.4cm) LV SYSTOLIC FUNCTION: Normal Ranges: EF-A4C View: 54 % (>=55%) EF-A2C View: 53 % EF-Biplane: 58 % LV EF Reported: 58 % LV DIASTOLIC FUNCTION: Normal Ranges: MV Peak E: 0.90 m/s (0.7-1.2 m/s) MV Peak A: 1.36 m/s (0.42-0.7 m/s) E/A Ratio: 0.66 (1.0-2.2) MV e' 0.074 m/s (>8.0) MV lateral e' 0.10 m/s MV medial e' 0.05 m/s MV A Dur: 98.00 msec E/e' Ratio: 12.12 (<8.0) a' 0.12 m/s MV DT: 121 msec (150-240 msec) PulmV Sys Paul: 55.50 cm/s PulmV Carpenter Paul: 48.20 cm/s PulmV S/D Paul: 1.20 (more content not included)...[facility]ula General HospitalToxoplasma gondii Ab.IgGon 05-29-2025T. gondii IgG Qn (S)Non-ReactiveNormKettering Health Springfield Comment on above:Performed By: #### [id number] #### HARRY NOVAK ([id number]) [facility] ([place]) [address] [place], [place] [address]Uiczvqlpq pallidum Ab.IgG+IgMon 05-29-2025T. pallidum IgG+IgM IA Ql (S)Non-ReactiveNormKettering Health SpringfieldComment on above:Result Comment: No significant level of Treponema pallidum antibody detected. Repeat testing in 2 to 4 weeks may be considered if early infection or incubating syphilis infection is suspected.Performed By: #### 94964-5 #### BRITTNEY Sung ([id number]) [facility] ([facility]) [address] [place], [place] [address]Ocuhacxw I.cardiac panelon 40-28-1892Cpbahwmd I.cardiac panel High sensitivity method6 ng/LNormal0-53Reg[facility] Hospital Cleveland WestComment on above:Order Comment: The previously reported component Neutrophils % is no longer being reported. The previously reported component Lymphocytes % is no longer being reported. The previously reported component Monocytes % is no longer being reported. The previously reported component Eosinophils % is no longer being reported. The previously reported component Basophils % is no longer being reported. The previously reported component Absolute Neutrophils is no longer being reported. The previously reported component Absolute Lymphocytes is no longer being reported. The previously reported component Absolute Monocytes is no longer being reported. The previously reported component Absolute Eosinophils is no longer being reported. The previously reported component Absolute Basophils is no longer being reported.Performed By: #### 12812-4 #### HARRY NOVAK ([id number]) [facility] ([place]) [address] [place], [place] [address]Easkbit 42-27-1987Bqzjj [Mass/Vol]8.5 mg/dLHigh4.0-7.5 [facility] Cleveland WestComment on above:Result Comment: Venipuncture immediately after or during the administration of Metamizole may lead to falsely low results. Testing should be performed immediately prior to Metamizole dosing.Performed By: #### 32700-3 #### HARRY NOVAK ([id number]) [facility] ([place]) [address] [place], [place] [address]BPY IgG IA Ql (S)on 04-53-3904VKWJXCQPQ ZOSTER IGG INDEX1.9 AIHigh<=0.8UnWestern Reserve HospitalComment on above:Order Comment: NEGATIVE: No IgG antibodies specific to VZV detected.It is likely that the patient has not had aprevious exposure to VZV through infectionor vaccination. Alternatively, the patient mayhave beenexposed to VZV but a failure to respond may indicateimmunodeficiency.EQUIVOCAL:Equivocal results; obtain additional sample for retesting.POSITIVE: IgG antibody to VZV detected. This may indicate thatthe patient was exposed to VZV through infection orvaccination. The interpretation of serological tests shouldtake into account the immunological status of the patient. Testresults for patients, including immunocompromised patients, neonates,and pediatric patients, reflect their capacity torespondimmunologically to the virus as well as their exposure to thepathogen. Patients treated withIVIG may demonstrate alteredresults in serological assays.Performed By: #### 65814-0 #### BRITTNEY Sung ([id number]) [facility] ([facility]) [address] [place], [place] [address]Dywhwsqhv zoster virus Ab.IgGon 45-43-2643UYN IgG IA Ql (S) PositiveAbnormalNegativeRegency Hospital Cleveland WestComment on above:Order Comment: NEGATIVE: No IgG antibodies specific to VZV detected.It is likely that the patient has not had aprevious exposure to VZV through infectionor vaccination. Alternatively, the patient mayhave beenexposed to VZV but a failure to respond may indicateimmunodeficiency.EQUIVOCAL:Equivocal re sults; obtain additional sample for retesting.POSITIVE: IgG antibody to VZV detected. This may indicate thatthe patient was exposed to VZV through infection orvaccination. The interpretation of serological tests shouldtake into account the immunological status of the patient. Testresults for patients, including immunocompromised patients, neonates,and pediatric patients, reflect their capacity torespondimmunologically to the virus as well as their exposure to thepathogen. Patients treated withIVIG may demonstrate alteredresults in serological assays.Performed By: #### 79319-9 #### BRITTNEY Sung ([id number]) [facility] ([facility]) [address] [place], [place] [address]OQLCNM HLA TYPEon 03-31-2584EDS RESULTSSee AttachedBethesda North HospitalComment on above:Order Comment: Test performed at:[facility] LaboratoryLost [facility], [address] [place], [place] [address]Performed By: #### 62138-3 #### HARRY NOVAK ([id number]) [facility] ([place]) [address] [place], [place] [address]DPU-P AND B AND C (class I) typing panelNoSelect Medical Specialty Hospital - Southeast OhioComment on above:Order Comment: Test performed at:[facility] LaboratoryLost [facility], [facility] [address] [place] [address] Performed By: #### 19921-4 #### HARRY NOVAK ([id number]) [facility] ([place]) [address] [place], [place] [address]GFH-CJ9 Ql (Bld/Tiss)[facility] HospitalComment on above:Order Comment: Test performed at:[facility] Immunogenetics LaboratorySarah [facility], [address] [place] [address]Mrudmiwcv By: #### 52740-5 #### HARRY NOVAK ([id number]) [facility] (SADIE) [address] [place], [place] [address]XAF-DDR5 High resolution Nom (Bld/Tiss)[facility] HospitalComment on above:Order Comment: Test performed at:[facility].DipikaSt. [facility], [address] [place] [address] Performed By: #### 13194-8 #### HARRY NOVAK ([id number]) [facility] ([place]) [address] [place], [place] [address]PKM-DKZ1 High resolution Nom (Bld/Tiss)[facility] HospitalComment on above:Order Comment: Test performed at:[facility] Immunogenetics LaboratoryW.DipikaSt. [facility], [address] [place], [place] [address]Tt[address] [place] [address] Performed By: #### 89064-8 #### HARRY NOVAK ([id number]) [facility] ([place]) [address] [place], [place] [address]XGHWOFHA HANDLINGon 77-58-4610OGNPNASK HANDLINGSpecimen StoredNormalUniMemorial Health System Selby General HospitalComment on above:Order Comment: Test performed at:[facility].DipikaSt. [facility], [address] [place] [address]Jizr performed at:[facility] Immunogen[facility] LaboratoryDipikaSt. Luke'S [facility], [address] [place] [address]Gfbcelkcq By: #### 32582-4 #### HARRY NOVAK ([id number]) [facility] ([place]IE) [address] [place], [place] [address]Zonrcqwnryulmkbf 28-52-5931Kntxaetkdyfbrh (EPO) Pb1225 mU/mL High4 - 27 mU/mLLutheran HospitalComment on above:INTERPRETIVE INFORMATION: Erythropoietin Normal serum concentrations of erythropoietin for 95% of individuals with normal hematocrits range from 4-27 mU/mL. As the hematocrit is lowered by iron deficiency, aplastic, or hemolytic anemia, the concentration of erythropoietin increases as shown in the graph below. In the absence of anemia, elevated concentrations are seen in renal tumors, as a manifestation of renal transplant rejection, and in secondary polycythemia. Low values may be observed in hemochromatosis. Expected Erythropoietin Concentrations in Patients with Uncomplicated Anemia Erythropoietin (mU/mL) 100,000 - + + 10,000 - +....... + ....... 1,000 - + ....... + ........ 100 - + ........ + ........ 10 - + ........ +---+---+---+---+---+---+ 10 20 30 40 50 60 70 (Hematocrit %) (Contributions To Nephrology 1988:66:54-62) Decreased erythropoietin concentrations with an elevated hematocrit are observed in patients with polycythemia rubra vera, and with a decreased hematocrit in patients with HIV infection who are receiving AZT. Patients on AZT who have anemia and erythropoietin concentrations of less than or equal to 500 mU/mL may benefit from therapy with recombinant EPO (NEJ 322:4853-9841,1989). Performed By: [employer] [address] [place] [address] Information Lead: Fredrick Barnes MD, PhD CLIA Number: [id number] Erythropoietin (EPO) Qnon 92-08-2897Qrylkzcklgrfvg and review of laboratory resultsAbnoalUniLake County Memorial Hospital - WestBlood type and Indirect antibody screen panel (Bld)on 52-06-6546SJI group Nom (Bld)AUnMary Rutan HospitalBlhennepin county medical center group antibody screen Ql NegativeUnKettering Health Behavioral Medical Center Ag Ql (Bld)PositiveUnMary Rutan HospitalUnMary Rutan HospitalAB group Nom (Bld)A NormalRegency Hospital Cleveland WestComment on above:Performed By: #### 76362-9 #### BRITTNEY Sung ([id number]) [facility] ([facility]) [address] [place], [place] [address]Mxtce group antibody screen QlNegativeNoSelect Medical Specialty Hospital - Southeast OhioComment on above:Performed By: #### 48895-1 #### BRITTNEY Sung ([id number]) [facility] ([facility]) [address] [place], [place] [address]U Ag Ql (Bld)PositiveAshtabula General HospitalComment on above:Performed By: #### 27647-4 #### BRITTNEY Sung ([id number]) [facility] ([facility]) [address] [place], [place] [address]HHS W Auto Differential panel (Bld)on 78-70-6139Ufqdplkjomk distribution width (RBC) [Ratio]27.9 %High11.5 - 14.5 %Lutheran HospitalHematocrit (Bld) [Volume fraction]22.4 %Low41.0 - 52.0 %Lutheran HospitalHemoglobin (Bld) [Mass/Vol]7.5 g/dLLow13.5 - 17.5 g/dL Lutheran HospitalImputnam county memorial hospital granulocytes (Bld) [#/Vol]0.64 10*3/uL [facility] granulocytes/100 WBC (Bld)8.1 %High0.0 - 0.9 %Lutheran HospitalCommymichigan medical center west branch on above:Immature Granulocyte Count (IG) includes promyelocytes, myelocytes and metamyelocytes but does not i nclude bands. Percent differential counts (%) should be interpreted in the context of the absolute cell counts (cells/UL).Interpretation and review of laboratory resultsAbnormalUniversity Hospitals of ClevelandMCH (RBC) [Entitic mass]31.1 pg26.0 - 34.0 pgLutheran HospitalMCHC (RBC) [Mass/Vol] 33.5 g/dL32.0 - 36.0 g/dLAdena Fayette Medical CenterV (RBC) [Entitic vol]93 fL80 - [address] Elizabeth Youngstown HospitalNucleated RBC/100 WBC (Bld) [Ratio]0.4 %[facility] Methodist HospitalPlatelets (Bld) [#/Vol]177 10*3/OhioHealthRBC (Bld) [#/Vol]2.41 10*6/[facility] Methodist HospitalWBC (Bld) [#/Vol]7.9 10*3/OhioHealthThe previously reported component Neutrophils % is no longer being reported.The previously reportedcomponent Lymphocytes % is no longer being reported.The [...] component Absolute Basophils is no longer being reported.Lutheran HospitalUnMary Rutan HospitalErythrocyte distribution width (RBC) [Ratio]27.9 %High11.5-14.5Reg[facility] Hospital Cleveland WestComment on above:Order Comment: The previously reported component Neutrophils % is no longer being reported. The previously reported component Lymphocytes % is no longer being reported. The previously reported component Monocytes % is no longer being reported. The previously reported component Eosinophils % is no longer being reported. The previously reported component Basophils % is no longer being reported. The previously reported component Absolute Neutrophils is no longer being reported. The previously reported component Absolute Lymphocytes is no longer being reported. The previously reported component Absolute Monocytes is no longer being reported. The previously reported component Absolute Eosinophils is no longer being reported. The previously reported component Absolute Basophils is no longer being reported.Performed By: #### 54391-7 #### HARRY NOVAK ([id number]) [facility] ([place]) [address] [place], [place] [address]Cpacanbdbd (Bld) [Volume fraction]22.4 %Low41.0-52.0 [facility] Hospital Cleveland WestComment on above:Order Comment: The previously reported component Neutrophils % is no longer being reported. The previously reported component Lymphocytes % is no longer being reported. The previously reported component Monocytes % is no longer being reported. The previously reported component Eosinophils % is no longer being reported. The previously reported component Basophils % is no longer being reported. The previously reported component Absolute Neutrophils is no longer being reported. The previously reported component Absolute Lymphocytes is no longer being reported. The previously reported component Absolute Monocytes is no longer being reported. The previously reported component Absolute Eosinophils is no longer being reported. The previously reported component Absolute Basophils is no longer being reported.Performed By: #### 69198-5 #### HARRY NOVAK ([id number]) [facility] ([facility]) [address] [place], [place] [address]Hxscmzphib (Bld) [Mass/Vol]7.5 g/dLLow13.5-17.5UnWestern Reserve HospitalComment on above:Order Comment: The previously reported component Neutrophils % is no longer being reported. The previously reported component Lymphocytes % is no longer being reported. The previously reported component Monocytes % is no longer being reported. The previously reported component Eosinophils % is no longer being reported. The previously reported component Basophils % is no longer being reported. The previously reported component Absolute Neutrophils is no longer being reported. The previously reported component Absolute Lymphocytes is no longer being reported. The previously reported component Absolute Monocytes is no longer being reported. The previously reported component Absolute Eosinophils is no longer being reported. The previously reported component Absolute Basophils is no longer being reported.Performed By: #### 67939-9 #### HARRY NOVAK ([id number]) [facility] ([place]) [address] [place], [place] [address]Cyocxuds granulocytes (Bld) [#/Vol]0.64 x10*3/uLNormal 0.00-0.70UnWestern Reserve HospitalComment on above:Order Comment: The previously reported component Neutrophils % is no longer being reported. The previously reported component Lymphocytes % is no longer being reported. The previously reported component Monocytes % is no longer being reported. The previously reported component Eosinophils % is no longer being reported. The previously reported component Basophils % is no longer being reported. The previously reported component Absolute Neutrophils is no longer being reported. The previously reported component Absolute Lymphocytes is no longer being reported. The previously reported component Absolute Monocytes is no longer being reported. The previously reported component Absolute Eosinophils is no longer being reported. The previously reported component Absolute Basophils is no longer being reported.Performed By: #### 91794-5 #### HARRY NOVAK ([id number]) [facility] ([place]) [address] [place], [place] [address]Lwblyznn granulocytes/100 WBC (Bld)8.1 %High0.0-0.9[facility] Cleveland WestComment on above:Order Comment: The previously reported component Neutrophils % is no longer being reported. The previously reported component Lymphocytes % is no longer being reported. The previously reported component Monocytes % is no longer being reported. The previously reported component Eosinophils % is no longer being reported. The previously reported component Basophils % is no longer being reported. The previously reported component Absolute Neutrophils is no longer being reported. The previously reported component Absolute Lymphocytes is no longer being reported. The previously reported component Absolute Monocytes is no longer being reported. The previously reported component Absolute Eosinophils is no longer being reported. The previously reported component Absolute Basophils is no longer being reported.Result Comment: Immature Granulocyte Count (IG) includes promyelocytes, myelocytes and metamyelocytes but does not include bands. Percent differential counts (%) should be interpreted in the context of the absolute cell counts (cells/UL).Performed By: #### 56443-8 #### HARRY NOVAK ([id number]) [facility] ([place]) [address] [place] [place], [place] [address]PZE (RBC) [Entitic mass]31.1 aqSmvncv22.0-34.0[facility] Cleveland WestComment on above:Order Comment: The previously reported component Neutrophils % is no longer being reported. The previously reported component Lymphocytes % is no longer being reported. The previously reported component Monocytes % is no longer being reported. The previously reported component Eosinophils % is no longer being reported. The previously reported component Basophils % is no longer being reported. The previously reported component Absolute Neutrophils is no longer being reported. The previously reported component Absolute Lymphocytes is no longer being reported. The previously reported component Absolute Monocytes is no longer being reported. The previously reported component Absolute Eosinophils is no longer being reported. The previously reported component Absolute Basophils is no longer being reported.Performed By: #### 97114-3 #### HARRY NOVAK ([id number]) [facility] ([facility]) [address] [place] [id number] (RBC) [Mass/Vol]33.5 g/dCRclewz12.0-36.0[facility] Cleveland WestComment on above:Order Comment: The previously reported component Neutrophils % is no longer being reported. The previously reported component Lymphocytes % is no longer being reported. The previously reported component Monocytes % is no longer being reported. The previously reported component Eosinophils % is no longer being reported. The previously reported component Basophils % is no longer being reported. The previously reported component Absolute Neutrophils is no longer being reported. The previously reported component Absolute Lymphocytes is no longer being reported. The previously reported component Absolute Monocytes is no longer being reported. The previously reported component Absolute Eosinophils is no longer being reported. The previously reported component Absolute Basophils is no longer being reported.Performed By: #### 78061-4 #### HARRY NOVAK ([id number]) [facility] ([place]) [address] [place], [place] [address]XGG (RBC) [Entitic vol]93 rKEfbopc01-743RanmilmdceWestern Reserve HospitalComment on above:Order Comment: The previously reported component Neutrophils % is no longer being reported. The previously reported component Lymphocytes % is no longer being reported. The previously reported component Monocytes % is no longer being reported. The previously reported component Eosinophils % is no longer being reported. The previously reported component Basophils % is no longer being reported. The previously reported component Absolute Neutrophils is no longer being reported. The previously reported component Absolute Lymphocytes is no longer being reported. The previously reported component Absolute Monocytes is no longer being reported. The previously reported component Absolute Eosinophils is no longer being reported. The previously reported component Absolute Basophils is no longer being reported.Performed By: #### 94671-7 #### HARRY NOVAK ([id number]) [facility] ([place]) [address] [place], [place] [address]Hpiebffzd RBC/100 WBC (Bld) [Ratio]0.4 /100 WBCsHigh0.0-0.0 [facility] Cleveland WestComment on above:Order Comment: The previously reported component Neutrophils % is no longer being reported. The previously reported component Lymphocytes % is no longer being reported. The previously reported component Monocytes % is no longer being reported. The previously reported component Eosinophils % is no longer being reported. The previously reported component Basophils % is no longer being reported. The previously reported component Absolute Neutrophils is no longer being reported. The previously reported component Absolute Lymphocytes is no longer being reported. The previously reported component Absolute Monocytes is no longer being reported. The previously reported component Absolute Eosinophils is no longer being reported. The previously reported component Absolute Basophils is no longer being reported.Performed By: #### 05293-6 #### HARRY NOVAK ([id number]) [facility] ([place]) [address] [place], [place] [address]Rlnqztrci (Bld) [#/Vol]177 x10*3/lLVsqkao415-944FfxjegztrqWestern Reserve HospitalComment on above:Order Comment: The previously reported component Neutrophils % is no longer being reported. The previously reported component Lymphocytes % is no longer being reported. The previously reported component Monocytes % is no longer being reported. The previously reported component Eosinophils % is no longer being reported. The previously reported component Basophils % is no longer being reported. The previously reported component Absolute Neutrophils is no longer being reported. The previously reported component Absolute Lymphocytes is no longer being reported. The previously reported component Absolute Monocytes is no longer being reported. The previously reported component Absolute Eosinophils is no longer being reported. The previously reported component Absolute Basophils is no longer being reported.Performed By: #### 64851-5 #### HARRY NOVAK ([id number]) [facility] ([place]) [address] [place], [place] [address]DNI (Bld) [#/Vol]2.41 x10*6/uLLow4.50-5.90UnWestern Reserve HospitalComment on above:Order Comment: The previously reported component Neutrophils % is no longer being reported. The previously reported component Lymphocytes % is no longer being reported. The previously reported component Monocytes % is no longer being reported. The previously reported component Eosinophils % is no longer being reported. The previously reported component Basophils % is no longer being reported. The previously reported component Absolute Neutrophils is no longer being reported. The previously reported component Absolute Lymphocytes is no longer being reported. The previously reported component Absolute Monocytes is no longer being reported. The previously reported component Absolute Eosinophils is no longer being reported. The previously reported component Absolute Basophils is no longer being reported.Performed By: #### 69177-1 #### HARRY NOVAK (71081) [facility] ([place]) [address] [place], [place] [address]GJK (Bld) [#/Vol]7.9 x10*3/uLNormal4.4-11.3UnWestern Reserve HospitalComment on above:Order Comment: The previously reported component Neutrophils % is no longer being reported. The previously reported component Lymphocytes % is no longer being reported. The previously reported component Monocytes % is no longer being reported. The previously reported component Eosinophils % is no longer being reported. The previously reported component Basophils % is no longer being reported. The previously reported component Absolute Neutrophils is no longer being reported. The previously reported component Absolute Lymphocytes is no longer being reported. The previously reported component Absolute Monocytes is no longer being reported. The previously reported component Absolute Eosinophils is no longer being reported. The previously reported component Absolute Basophils is no longer being reported.Performed By: #### 37892-6 #### HARRY NOVAK ([id number]) [facility] ([place]) [address] [place], [place] [address]Sainhtmlghtqd metabolic 2000 panelon 03-11-5524Bidqvbe BCP dye [Mass/Vol]4.9 g/dL3.4 - 5.0 g/dLUnMary Rutan HospitalALP [Catalytic activity/Vol]70 U/L33 - 136 U/[facility] MiamisburgALT With P-5'-P [Catalytic activity/Vol]19 U/L10 - 52 U/[facility] MiamisburgComment on above:Patients treated with Sulfasalazine may generate falsely decreased results for ALT.Anion gap [Moles/Vol]12 mmol/L10 - 20 mmol/L [facility] HospitalAST With P-5'-P [Catalytic activity/Vol]20 U/L9 - 39 U/[facility] MiamisburgBilirubin [Mass/Vol]1.1 mg/dL0.0 - 1.2 mg/dLUnMary Rutan HospitalCalcium [Mass/Vol]9.7 mg/dL8.6 - 10.3 mg/dLUnMary Rutan HospitalChloride [Moles/Vol]99 mmol/L98 - 107 mmol/[facility] MiamisburgCO2 [Moles/Vol]28 mmol/L21 - 32 mmol/L [facility] HospitalCreatinine [Mass/Vol]1.08 mg/dL0.50 - 1.30 mg/dLUnMary Rutan HospitalGFR/1.73 sq M.predicted among non-blacks MDRD (S/P/Bld) [Vol rate/Area]76 mL/min/{1.73_m2}- PINFUniMercy Health St. Elizabeth Youngstown HospitalComment on above:Calculations of estimated GFR are performed using the 2020 CKD-EPI Study Refit equation without therace variable for the IDMS- Traceable creatinine methods. https://jasn.asnjournals.org/content//ASN.3374026699 Glucose [Mass/Vol]99 mg/dL74 - 99 mg/dLUnMary Rutan Hospital Interpretation and review of laboratory resultsAbnormalUniMercy Health St. Elizabeth Youngstown HospitalPotassium [Moles/Vol]5.0 mmol/L3.5 - 5.3 mmol/[facility] MiamisburgProtein [Mass/Vol]8.8 g/dLHigh6.4 - 8.2 g/dLUnMary Rutan HospitalSodium [Moles/Vol]134 mmol/LZkc213 - 145 mmol/[facility] MiamisburgUrea nitrogen [Mass/Vol]16 mg/dL6 - 23 mg/dLUnMary Rutan HospitalUnMary Rutan HospitalAlbumin BCP dye [Mass/Vol]4.9 g/dL Normal3.4-5.0UnWestern Reserve HospitalComment on above: Performed By: #### 00943-1 #### HARRY NOVAK ([id number]) [facility] ([place]) [address] [place], [place] [address]MAS [Catalytic activity/Vol]70 U/IVdufcf20-227GwtwabcckkWestern Reserve HospitalComment on above:Performed By: #### 08503-5 #### HARRY NOVAK (07492) [facility] ([place]) [address] [place], [place] [address]UYL With P-5'-P [Catalytic activity/Vol]19 U/JUvwven88-23 [facility] Cleveland WestComment on above:Result Comment: Patients treated with Sulfasalazine may generate falsely decreased results for ALT.Performed By: #### 79666-0 #### HARRY NOVAK (47734) [facility] ([place]) [address] [place], [place] [address]Fkkum gap [Moles/Vol]12 mmol/YJzenmn53-19KefqedfjljWestern Reserve HospitalComment on above:Performed By: #### 92613-4 #### HARRY NOVAK (65621) [facility] ([place]) [address] [place], [place] [address]QRO With P-5'-P [Catalytic activity/Vol]20 U/LNormal9-39 [facility] Cleveland WestComment on above:Performed By: #### 01442-1 #### HARRY NOVAK (53439) [facility] ([place]) [address] [place], [place] [address]Gfmtlwvxa [Mass/Vol]1.1 mg/dLNormal0.0-1.2UnWestern Reserve HospitalComment on above:Performed By: #### 21735-8 #### HARRY NOVAK ([id number]) [facility] ([place]) [address] [place], [place] [address]Ejloebj [Mass/Vol]9.7 mg/dLNormal8.6-10.3UnWestern Reserve HospitalComment on above:Performed By: #### 31871-5 #### HARRY O'RAKAN (97971) [facility] ([place]) [address] [place], [place] [address]Qbatorel [Moles/Vol]99 mmol/RPyeplu19-029ZayfhwjxygWestern Reserve HospitalComment on above:Performed By: #### 57731-3 #### HARRY O'RAKAN (41181) [facility] ([place]) [address] [place], [place] [address]FF4 [Moles/Vol]28 mmol/KEhvyll17-53JtobrlwjmkWestern Reserve HospitalComment on above:Performed By: #### 57463-1 #### HARRY O'RAKAN (93997) [facility] ([place]) [address] [place], [place] [address]Rpxewcjpui [Mass/Vol]1.08 mg/dLNormal0.50-1.30UnWestern Reserve HospitalComment on above:Performed By: #### 05496-8 #### HARRY O'RAKAN (96011) [facility] ([place]) [address] [place], [place] [address]Ljhrsirdfn filtration rate76 mL/min/1.73m*2Normal>60 [facility] Cleveland WestComment on above:Result Comment: Calculations of estimated GFR are performed using the 2020 CKD-EPI Study Refit equation without the race variable for the IDMS-Traceable creatinine methods. https://jasn.asnjournals.org/content/early//ASN.7900677278Bjdnsgvve By: #### 31690-6 #### HARRY O'RAKAN ([id number]) [facility] ([place]) [address] [place], [place] [address]Goxaxdr [Mass/Vol]99 mg/kJLywlcm24-17CnzxpesyihRegency Hospital Cleveland WestComment on above:Performed By: #### 93185-0 #### HARRY O'RAKAN (90718) [facility] ([place]) [address] [place], [place] [address]Llxkeykwl [Moles/Vol]5.0 mmol/LNormal3.5-5.3[facility] Cleveland WestComment on above:Performed By: #### 71526-2 #### HARRY NOVAK (65959) [facility] ([place]) [address] [place], [place] [address]Newkqbt [Mass/Vol]8.8 g/dLHigh6.4-8.2UnWestern Reserve HospitalComment on above:Performed By: #### 71703-2 #### HARRY NOVAK ([id number]) [facility] ([place]) [address] [place], [place] [address]Fisfiv [Moles/Vol]134 mmol/OSbd619-024MewkqtnjptWestern Reserve HospitalComment on above:Performed By: #### 33138-9 #### HARRY NOVAK (14937) [facility] ([place]) [address] [place], [place] [address]Bepe nitrogen [Mass/Vol]16 mg/dLNormal6-23UnWestern Reserve HospitalComment on above:Performed By: #### 43777-4 #### HARRY NOVAK (32289) [facility] ([place]) [address] [place], [place] [address]PTM CLASS I + II VERIFICATION TYPINGon 77-67-4645EKP CLASS I + II VERIFICATION TYPINGAshtabula General Hospital Comment on above:Order Comment: Test performed at:[facility] Immunogenetics LaboratoryOSt. [facility], 6th [address] [place], [place] [address]Vdccrfdbt By: #### 94103-8 #### HARRY NOVAK ([id number]) [facility] ([place]) [address] [place], [place] [address]IUC RESULTSSee AttachedAshtabula General HospitalComment on above:Order Comment: Test performed at:[facility], 6th D[address] [place], [place] [address]Vicxeplsj By: #### 33736-6 #### HARRY NOVAK (57068) [facility] ([place]) [address] [place] [address]Erythropoietinon 98-87-7269Rmppfantydwepj (EPO) Qs1280 mU/mL [address]Comment on above:Result Comment: INTERPRETIVE INFORMATION: Erythropoietin Normal serum concentrations of erythropoietin for 95% of individuals with normal hematocrits range from 4-27 mU/mL. As the hematocrit is lowered by iron deficiency, aplastic, or hemolytic anemia, the concentration of erythropoietin increases as shown in the graph below. In the absence of anemia, elevated concentrations are seen in renal tumors, as a manifestation of renal transplant rejection, and in secondary polycythemia. Low values may be observed in hemochromatosis. Expected Erythropoietin Concentrations in Patients with Uncomplicated Anemia Erythropoietin (mU/mL) 100,000 - + + 10,000 - +....... + ....... 1,000 - + ....... + ........ 100 - + ........ + ........ 10 - + ........ +---+---+---+---+---+---+ 10 20 30 40 50 60 70 (Hematocrit %) (Contributions To Nephrology 1988:66:54-62) Decreased erythropoietin concentrations with an elevated hematocrit are observed in patients with polycythemia rubra vera, and with a decreased hematocrit in patients with HIV infection who are receiving AZT. Patients on AZT who have anemia and erythropoietin concentrations of less than or equal to 500 mU/mL may benefit from therapy with recombinant EPO (NEJM 322:7215-7844,1989). Performed By: [employer] [address] [place] [address] Information Lead: Fredrick Barnes MD, PhD CLIA Number: [id number] By: #### 47177-3 #### SERGIO SHAAN RIOJAS) ([id number]) [address] [place], [place] [address]Ihcyablolm 43-40-7183Ewfosdav [Mass/Vol]1278 ng/jBXmwt75 - 300 ng/mLLutheran HospitalFerritin [Mass/Vol]1278 ng/mLHigh 20-300[facility] Cleveland WestComment on above:Performed By: #### 2276-4 #### BRITTNEY Sung ([id number]) [facility] ([facility]) [address] [place], [place] [address]Xaczpbkd [Mass/Vol]on 42-18-4759Lhbaisdqkpwjbp and review of laboratory resultsAbTogus VA Medical CenterUnMary Rutan HospitalHLA DNA TYPE PANELon 34-60-5379GHU RESULTSSee [facility] VA Medical CenterComment on above:Order Comment: Test performed at: [facility], 6th Floor [address] [place], [place] [address]Performed By: #### HLADNA #### JONATHAN PERRY S ([id number]) [facility] ([facility]) [address] [place], [place] [address]Order Comment: Test performed at:[facility]utheran HospitalHistocompineville community hospitalbility and Immunogenetics LaboratoryDipikaSt. Luke'[facility], 6th [address] [place] [id number] By: #### 52548-3 #### HARRY NOVAK (33034) [facility] ([place]) [address] [place] [address]DZT-H AND B AND C (class I) typing panelNoSelect Medical Specialty Hospital - Southeast OhioComment on above:Order Comment: Test performed at: [facility], 6th Floor [address] [place], [place] [address]Performed By: #### HLADNA #### JONATHANJANNIE WELLERORLANDO S ([id number]) [facility] ([facility]) [address] [place], [place] [address]HLA-DP2 Ql (Bld/Tiss)[facility] HospitalComment on above:Order Comment: Test performed at: [facility]ogen[facility], 6th Floor [address] [place] [address]Performed By: #### HLADNA #### JONATHAN PERRY S (80529) [facility] ([facility]) [address] [place], [place] [address]AGK-LXJ7 High resolution Nom (Bld/Tiss)[facility] General HospitalComment on above:Order Comment: Test performed at: [facility] DipikaSt. [facility], 6th Floor [address] [place] [address]Performed By: #### HLADNA #### JONATHAN PERRY S ([id number]) [facility] ([facility]) [address] [place], [place] [address]FXP-NSF8 High resolution Nom (Bld/Tiss)[facility] HospitalComment on above:Order Comment: Test performed at: [facility] DipikaSt. [facility], 6th Floor [address] [place], [place] [address]Pvzbqemgm By: #### HLADNA #### JONATHAN PERRY S (88995) [facility] ([facility]) [address] [place], [place] [address]PUU HR TYPE, BUCCALon 10-16-5330SZC RESULTSFor collection only.[facility] HospitalComment on above:Order Comment: Test performed at: [facility] DipikaSt. [facility], 6th Floor [address] [place], [place] [address]Qdzfwstpz By: #### HLAHB #### JONATHAN PERRY S (39474) [facility] ([facility]) [address] [place], [place] [address]QEH-P AND B AND C (class I) typing panelNormalUniMemorial Health System Selby General HospitalComment on above:Order Comment: Test performed at: [facility] DipikaSt. [facility], 6th Floor [address] [place] [address]Performed By: #### HLAHB #### JONATHAN WELLERSPAN S (78305) [facility] ([place]) [address] [place], [place] [address]UQM-ON7 Ql (Bld/Tiss)[facility] HospitalComment on above:Order Comment: Test performed at: [facility], 6th Floor [address] [place] [address]Performed By: #### HLAHB #### JONATHAN CORBETTAN S ([id number]) [facility] ([facility]) [address] [place] [address]DDG-WJE9 High resolution Nom (Bld/Tiss)[facility] HospitalComment on above:Order Comment: Test performed at: [facility] Anca [facility], 6th Floor [address] [place], [place] [address]Performed By: #### HLAHB #### JONATHAN WELLERSPAN S ([id number]) [facility] ([facility]) [address] [place] [address]UVM-YXM3 High resolution Nom (Bld/Tiss)[facility] HospitalComment on above:Order Comment: Test performed at: [facility], 6th Floor [address] [place] [address]Performed By: #### HLAHB #### JONATHAN WELLERSPAN S (36414) [facility] ([facility]) [address] [place] [address]PJI TRANSPLANT ANTIBODY PANELon 20-01-3470IYU-A+B+C (class I) Ab (S)[facility] HospitalComment on above:Order Comment: Test performed at:[facility] HospitalHistocompatibility and Immunogenetics LaboratoryAnca [facility], 6th Ersns[address] [place] [address]Performed By: #### 87013-8 #### HARRY NOVAK (38908) [facility] ([place]) [address] [place], [place] [address]FPG-LC+DQ+DR (class II) Ab (S)NormalUnWestern Reserve HospitalComment on above:Order Comment: Test performed at:[facility] HospitalHistocompatibility and Immunogenetics LaboratoryLost Rivers [facility] Center, [facility] [address] [place] [address] Performed By: #### 03437-2 #### HARRY NOVAK (11651) [facility] ([place]) [address] [place], [place] [address]GLN Lactate to pyruvate reaction [Catalytic activity/Vol]on 96-74-3121Jdkhstcempklmh and review of laboratory resultsAbnoKettering Health PrebleUnMary Rutan HospitalLactate dehydrogenaseon 30-84-0369SDF Lactate to pyruvate reaction [Catalytic activity/Vol]669 U/[facility]84 - 246 U/[facility] Health MiamisburgLD Lactate to pyruvate reaction [Catalytic activity/Vol]669 U/IQnlj18-392LtxfljanobRegency Hospital Cleveland WestComment on above:Performed By: #### 69460-7 #### HARRY NOVAK (70130) [facility] ([place]) [address] [place], [place] [address]Emmmlv differential performed Ql (Bld)on 65-85-5038Yvos form neutrophils (Bld) [#/Vol]1.42 x10*3/uLHigh0.00-0.70UnWestern Reserve HospitalComment on above:Performed By: #### 14911-5 #### HARRY NOVAK (19359) [facility] ([place]) [address] [place], [place] [address]Btet form neutrophils/100 WBC (Bld)18.0 %Normal0.0-5.0 [facility] WestComment on above:Performed By: #### 52147-9 #### HARRY NOVAK (79184) [facility] ([place]) [address] [place], [place] [address]Fbdrmoban (Bld) [#/Vol]0.16 x10*3/uLHigh0.00-0.10[facility] WestComment on above:Performed By: #### 79601-5 #### HARRY NOVAK (26693) [facility] ([place]) [address] [place], [place] [address]Wghseaxmj/100 WBC (Bld)2.0 %Normal0.0-2.0UnWestern Reserve HospitalComment on above:Performed By: #### 28186-7 #### HARRY NOVAK (83340) [facility] ([place]) [address] [place], [place] [address]Aeelrz Manual cnt (Bld) [#/Vol]0.40 x10*3/uLNormal0.00-0.00 [facility] WestComment on above:Result Comment: This is an appended report. These results have been appended to a previously final verified report.Performed By: #### 50667-4 #### HARRY NOVAK (48863) [facility] ([place]) [address] [place], [place] [address]Fqidzl/100 WBC (Bld)5.0 %Normal0.0-0.0[facility] Cleveland WestComment on above:Result Comment: This is an appended report. These results have been appended to a previously final verified report. Performed By: #### 00571-3 #### HARRY NOVAK (95421) [facility] ([place]) [address] [place], [place] [address]Zmnlc Counted Total (Bld) [#]100[facility] HospitalComment on above:Performed By: #### 99661-5 #### HARRY NOVAK (22269) [facility] ([place]) [address] [place], [place] [address]Ywgaqpdwgm LM Ql (Bld)FewNoSelect Medical Specialty Hospital - Southeast OhioComment on above:Performed By: #### 05435-8 #### HARRY NOVAK (43002) [facility] ([place]) [address] [place], [place] [address]Butwxcuauzq (Bld) [#/Vol]0.08 x10*3/uLNormal0.00-0.70 [facility] WestComment on above:Performed By: #### 34138-9 #### HARRY NOVAK (68385) [facility] ([place]) [address] [place], [place] [address]Qtaeyabrtnm/100 WBC (Bld)1.0 %Normal0.0-6.0UnWestern Reserve HospitalComment on above:Performed By: #### 32903-0 #### HARRY NOVAK (31547) [facility] ([place]) [address] [place], [place] [address]Kqjvilernam (Bld) [#/Vol]1.19 x10*3/uLLow1.20-4.80UnWestern Reserve HospitalComment on above:Result Comment: Corrected result: Previously reported as 1.58 x10*3/uL (reference range: 1.20-4.80 x 10*3/uL) on 03/26/2025 at 1656 EDT.Performed By: #### 09199-6 #### HARRY NOVAK (07474) [facility] ([place]) [address] [place], [place] [address]Uomfizkulei/100 WBC (Bld)15.0 %Vfcdsy15.0-44.0UnWestern Reserve HospitalComment on above:Result Comment: Corrected result: Previously reported as 20.0 % (reference range: 13.0-44.0 %) on 03/26/2025 at 1656 EDT.Performed By: #### 01375-9 #### HARRY NOVAK (81881) [facility] ([place]) [address] [place], [place] [address]Dbcdoreuigmeat (Bld) [#/Vol]0.32 x10*3/uLNormal0.00-0.00 [facility] WestComment on above:Result Comment: Corrected result: Previously reported as 0.16 x10*3/uL (reference range: 0.00- 0.00 x10*3/uL) on 03/26/2025 at 1656 EDT.Performed By: #### 33986-7 #### HARRY NOVAK (09362) [facility] ([place]) [address] [place], [place] [address]Qtarhenjgqiyha/100 WBC (Bld)4.0 %Normal0.0-0.0[facility] Cleveland WestComment on above:Result Comment: Corrected result: Previously reported as 2.0 % (reference range: 0.0-0.0 %) on 03/26/2025 at 1656 EDT.Performed By: #### 57640-3 #### HARRY NOVAK ([id number]) [facility] (SADIE) [address] [place], [place] [address]Jvblfgyvq (Bld) [#/Vol]0.40 x10*3/uLNormal0.10-1.00UnWestern Reserve HospitalComment on above:Performed By: #### 45128-1 #### HARRY NOVAK ([id number]) [facility] (SADIE) [address] [place], [place] [address]Esfehcrms/100 WBC (Bld)5.0 %Normal2.0-10.0UnWestern Reserve HospitalComment on above:Performed By: #### 08153-1 #### HARRY NOVAK ([id number]) [facility] (SADIE) [address] [place], [place] [address]Jjflvylzow (Bld) [#/Vol]0.08 x10*3/uLNormal0.00-0.00 [facility] Cleveland WestComment on above:Result Comment: This is an appended report. These results have been appended to a previously final verified report.Performed By: #### 14888-6 #### HARRY NOVAK ([id number]) [facility] (SADIE) [address] [place], [place] [address]Joidutjwud/100 WBC (Bld)1.0 %Normal0.0-0.0[facility] Cleveland WestComment on above:Result Comment: This is an appended report. These results have been appended to a previously final verified report.Performed By: #### 35380-2 #### HARRY Bar'RAKAN ([id number]) [facility] (SADIE) [address] [place], [place] [address]Nufaeeurvrx (Bld) [#/Vol]5.29 x10*3/uLNormal1.20-7.70 [facility] Cleveland WestComment on above:Performed By: #### 19137-8 #### HARRY Bar'RAKAN ([id number]) [facility] (SADIE) [address] [place] [place], [place] [address]Muyivumlqu LM Ql (Bld)Cleveland ClinicComment on above:Performed By: #### 91057-5 #### HARRY Bar'RAKAN ([id number]) [facility] (SADIE) [address] [place], [place] [address]Zgqzvqxz clump LM Ql (Bld)PresentAshtabula General HospitalComment on above:Performed By: #### 40214-0 #### HARRY Bar'RAKAN ([id number]) [facility] (SADIE) [address] [place], [place] [address]BKP morphology finding Nom (Bld)See BelowAshtabula General HospitalComment on above:Performed By: #### 73678-8 #### HARRY Bar'RAKAN ([id number]) [facility] (SADIE) [address] [place], [place] [address]Ridwryemj neutrophils (Bld) [#/Vol]3.87 x10*3/uLNormal 1.20-7.00[facility] Cleveland WestComment on above:Performed By: #### 22956-7 #### HARRY NOVAK ([id number]) [facility] (SADIE) [address] [place], [place] [address]Qtietafrm neutrophils/100 WBC (Bld)49.0 %Uknhrp75.0-80.0 [facility] WestComment on above:Result Comment: Percent differential counts (%) should be interpreted in the context of the absolute cell counts (cells/uL).Performed By: #### 54014-6 #### HARRY NOVAK ([id number]) [facility] (S[place]IE) [address] [place], [place] [address]ZSR other Manual cnt (Bld) [#/Vol]NormalRegency Hospital Cleveland WestComment on above:Result Comment: Corrected result: Previously reported as 0.24 x10*3/uL (reference range: ) on 03/26/2025 at 1656 EDT.Performed By: #### 61571-4 #### HARRY NOVAK ([id number]) [facility] (S[place]IE) [address] [place], [place] [address]XIB other/100 WBC (Bld)NormalRegency Hospital Cleveland WestComment on above:Result Comment: Atypical mononuclear cells concerning for blasts. Corrected result: Previously reported as 3.0 % (reference range: ) on 03/26/2025 at 1656 EDT.Performed By: #### 96731-7 #### HARRY NOVAK ([id number]) [facility] (SADIE) [address] [place], [place] [address]Gkqatzkgxmu review Pathologist comment (Bld) [Interp]on 41-68-3208VNSL REVIEW-CBC DIFFERENTIALLeft shift with approximately 5% Blasts. Marked anisocytosis of red cells with ovalocytes and few tear drop cells. Findings compatible with clinical history of primary myelofibrosis but concerning for acceleration of disease.Ashtabula General HospitalComment on above:Result Comment: . By the signature on this report, the individual or group listed as making the Final Interpretation/Diagnosis certifies that they have reviewed this case. Performed By: #### 37487-7 #### BRITTNEY Sung ([id number]) [facility] ([facility]) [address] [place] [address]Bspfampiz Encounteron [id number] Authentication Interface Message TextHEMATOLOGY AND MEDICAL ONCOLOGY [facility] I received a call from the patient's primary Oncologist, Dr. Martita Hopper from [facility]. We discussed about the results of the two bone marrow biopsies that were taken at [facility] and also, I've explained the rationale behind the need for the patient to be evaluated at the or PSYCHIATRIC in order to be assessed for the possibility of an Allo SCT due to his diagnosis of Myelofibrosis. I connected with our team at [facility] and they have been working on get the patient's appointment with the transplant team at the . The referral team has been in communication with the patient and the initial appointment has been set up on 03/26/2025 (patient has been informed). Additional logistics, and determination will be done to ensure the patient has the appropriate and recommended clinical assessment with the Transplant Team at the . Commented as well with my attending Dr. Ronnie DO. Ramo Taylor MD Hematology and Medical Oncology Fellow [facility] Sova, [phone] Defiance Regional Hospital SystemTranscription Authentication Interface Message Pako calling to follow up on yesterdays call Akilah also states that she will be sending the MARIE again via fax - it will be uploaded into patient's chart once receivedNoProMedica Defiance Regional Hospital SystemTelephone Encounteron [phone] Authentication Interface Message Text Akilah Lane calling from [facility] on behalf of Dr. Ruchi Hopper, referring physician, is requesting office notes from most recent office visit. Patient is stating he needs a transplant and doctor would like to clarify with Dr. Bueno's office visit notes. He would like to begin his treatment plan. Akilah states that a fax request has been sent but it is not present in the patient's chart at this time. [phone] - phone number [phone] - fax [facility] [employer] EducationPro[employer] Software Noteson 03-13-2025 Mannequin Decorator Authentication Interface Message TextSW met with Pt and his , Marla, [facility]. Pt met with Dr. Craig but due to the distance between his home and , Pt will seek treatment at . SW educated Pt on emotional support services available through [facility] and explained that services can be accessed virtually and that TGP can also direct them to services in their area. Pt accepted the referral to TGP. SW submitted TGP referral through [employer] . Willow Bond SUPERVISOR PLASTERING, CHIEF CONTRACT OFFICER [id number] NetCom SystemsWongnai SystemTelephone Encounteron [phone] Authentication Interface Message TextOpened in error Willow ROQUE, CHIEF CONTRACT OFFICER [id number] NetCom SystemsWongnai SystemProgress Noteson [phone] Authentication Interface Message Text Attestation signed by Korey Bueno MD at [...] note. Additional Note: Korey Bueno MD 03/12/2025 HEMATOLOGY AND MEDICAL ONCOLOGY [facility] Patient ID: Name: Penny Ordaz Encounter Date: [...] THERAPY Current therapy has been given at [facility] per Dr. Martita Hopper MD [...] and severe seborrheic dermatitis, initially presented to [facility] on September 08, 2024. He reported experiencing [...] October 2024, the patient was evaluated at [facility] due to severe anemia once again. He [...] most recent transfusion occurring this morning at [facility], where a hemoglobin level of 6.5 g/dL was documented. A bone marrow biopsy was performed on December 25, 2024, at [facility], with results reported on January 01, 2025 as left shifted dysgranulopoietic marrow with 3% of circulating myeloblasts, trisomy 8 by FISH, and positive JAK2 V617F and TET2 mutations consistent with Myelofibrosis. The patient has been sent to our hospital to define management and plan for possible Bone Marrow Transplant. Interval: The patient underwent a new BONE MARROW BIOPSY here at [facility] on 01/21/2025, and the results are [...] in cases of M (more content not included)...NormalThe Station X System Telephone Encounteron [phone] Authentication Interface Message TextPT Called to confirm appt 03/12 also asked for a call back about Bone Valdez results AM.NormalThe Station X SystemTelephone Encounteron [phone] Authentication Interface Message TextLoretta from DR Glez office calledNormal The Station X SystemTelephone Encounteron [phone] Authentication Interface Message TextPatient was identified by name and date of . Juliette Schumacher RN Contacted patient to schedule bone marrow biopsy and oncology follow-up. Patient aware of bone marrow biopsy February 20 with 10:30 arrival and MD follow-up March 12. Will have labs tomorrow at OSH. Juliette Schumacher RNNormACMC Healthcare System Glenbeighe Johnson City Medical CenterWongnai SystemProgress Noteson 02-12-2025 Mannequin Decorator Authentication Interface Message TextHEMATOLOGY AND MEDICAL ONCOLOGY [facility] After a thorough discussion with the [...] (radiologists) and has been communicated to Dr. Stoner and Ronnie. We will proceed with scheduling [...] the previous bedside BMBx performed at the [facility] center was very painful. He requested sedation if the pain is not adequately controlled with local lidocaine. I will relay this patient's concern to the IR team. Order placed in the system. Ramo Taylor MD Hematology and Medical Oncology Fellow Epic chat, [phone] Defiance Regional Hospital SystemTelephone Encounteron 02-11-2025 Mannequin Decorator Authentication Interface Message TextPT Called back asking for follow up on MRI Informed of message from Dr. Wisam WANG.NormalThe [facility] SystemTranscription Authentication Interface Message TextPatient calling Patient states that he is to be scheduled for an MRI - I don't see any orders for an MRI Patient can be reached at [phone] [facility] SystemProgress Notes on 30-09-2949Xgmmvhdbqlsuw Authentication Interface Message TextMD to reach out to IR to see if IR guided bone marrow biopsy possibility. Will arrange follow-up after decision made regarding biopsy. Juliette Schumacher, RNNoProMedica Defiance Regional Hospital SystemTranscriptEAP Technology Systemsation Interface Message TextHEMATOLOGY AND MEDICAL ONCOLOGY [facility] Patient ID: Name: Penny Ordaz Encounter Date: [...] THERAPY Current therapy has been given at [facility] per Dr. Martita Hopper MD [...] and severe seborrheic dermatitis, initially presented to [facility] on September 08, 2024. He reported experiencing [...] October 2024, the patient was evaluated at [facility] due to severe anemia once again. He [...] most recent transfusion occurring this morning at [facility], where a hemoglobin level of 6.5 g/dL was documented. A bone marrow biopsy was performed on December 25, 2024, at [facility], with results reported on January 01, 2025 as left shifted dysgranulopoietic marrow with 3% of circulating myeloblasts, trisomy 8 by FISH, and positive JAK2 V617F and TET2 mutations consistent with Myelofibrosis. The patient has been sent to our hospital to define management and plan for possible Bone Marrow Transplant. Interval: The patient underwent a new BONE MARROW BIOPSY here at [facility] on 01/21/2025, and the results are [...] oxygen saturation is 100% (more content not included)...NormalThe St. [facility] Health SystemStardoll SystemAddendum Noteon [phone] Authentication Interface Message TextEncounter addended by: Macy Salmeron on: 01/21/2025 12:46 PM Actions taken: Visit diagnoses modified, Order list changed, Diagnosis association updatedNoProMedica Defiance Regional Hospital SystemTranscription Authentication Interface Message TextEncounter addended by: Azul Hidalgo RN on: 01/21/2025 11:58 AM Actions taken: Clinical Note SignedNoProMedica Defiance Regional Hospital SystemProgress Noteson 65-91-5204Zutfimprjmgvm Authentication Interface Message TextPatient was identified by name and date of . Azul Hidalgo RN The patient had a bone marrow biopsy x2 without complications. He was educated on side effects and potential complications/ risks. The sights were clean dry and in tact without bleeding on discharge. Madeline Hidalgo RNPrairie View Psychiatric HospitalWongnai System Mannequin Decorator Authentication Interface Message TextPatient was identified by name and date of . VIDAL Guardado/MPA Patient at risk for falls:No Falls Risk protocol implemented: NoNormalThe St. Lawrence Health SystemroWongnai SystemAddendum Noteon 62-37-5899Dlqtkyffaxeft Authentication Interface Message TextEncounter addended by: Lashell Trujilol DO on: 01/18/2025 1:05 PM Actions taken: Cosign clinical note with attestationNormACMC Healthcare System Glenbeighe St. Lawrence Health SystemroWongnai System Progress Noteson 57-73-8310Wocperwdzkkuy Authentication Interface Message Text Attestation signed by Lashell Trujillo DO at [...] Division Hematology / Oncology 01/18/2025 1:03 PM HEMATOLOGY AND MEDICAL ONCOLOGY [facility] Patient ID: Name: Penny Ordaz Encounter Date: [...] THERAPY Current therapy has been given at [facility] per Dr. Martita Hopper MD PROCRIT 60.000 units once a week Luspatercept started today GERARD (Momelotinib) CURRENT ONCOLOGICAL PROBLEMS Weight loss: No, [...] and severe seborrheic dermatitis, initially presented to [facility] on September 08, 2024. He reported experiencing [...] October 2024, the patient was evaluated at [facility] due to severe anemia once again. He [...] most recent transfusion occurring this morning at [facility], where a hemoglobin level of 6.5 g/dL was documented. A bone marrow biopsy was performed on December 25, 2024, at [facility], with results reported on January 01, 2025 [...] Patient has no allerg (more content not included)...NormalThe Station X System Telephone Encounteron 20-66-2873Goekievefvqqf Authentication Interface Message TextUpon review of chart, saw that pt is scheduled for appt 01/15 w/Dr Craig. Call made to pt to assist w/moving up appt. The offered appts were too early in the AM so he declined scheduling. Offered 01/01 at 1600 w/Dr ULLOA and he declined that appt as well. He stated he would see if he could 'make arrangements' and call back tomorrow. Claudy Ryan Station X SystemTranscription Authentication Interface Message TextPT called to make appointment Scheduled by notes PT asked 01/15 at 1PM AM.NormalThe Alt[employer] EducationTelephone Encounteron [phone] Authentication Interface Message TextPt id'd by name and . Explained to pt the reason for call was to schedule appt. Pt stated he was not sure whether or not he needed appt and stated he will check w/his oncologist tomorrow. Pt accepted contact info and stated he will call back. Holding 12/[address] CRAIG. please make sure [facility] is updated. Claudy Ryan [facility] Systemn 10-09-2024L Specimen: BP25-3 Received: 10/11/24 Status: QUOC Swain Num: [id number] Spec Type: Impression Subm Dr: Martita Hopper MD Tissues: PATHPER Procedures: PATHREVIEW Age/ Patient Sex Location Account Attending Physician Penny Ordaz/M LABELL [id number] Martita Hopper MD SPEC NUM: [id number] RECD: 10/11/24 STATUS: QUOC SWAIN NUM: [id number] BEV: 10/09/[address] [facility] [address]: Martita Hopper MD ENTERED: 10/11/[address]: William Ly SPEC TYPE: Impression DEPT: ALLI Correa ENTERED BY: [id number] RECV BY: [id number] ORDERED: PATHREVIEW ORDERED: PATHREVIEW Pathologist Review Abnormal [...] BP25-3 Received: 10/11/24 Status: QUOC Swain Num: [id number] Spec Type: Impression Subm Dr: Martita Hopper MD Tissues: PATHPER Procedures: PATHREVIEW Patient: Penny Ordaz Brit [id number] (Continued) Specimen: BP25-3 Received: 10/11/24 (Continued) Pathologist Review (Continued) Signed (signature on file) Delfina Calderón MD 10/14/242029 Specimen: BP25-3 Received: 10/11/24 Status: QUOC Swain Num: [id number] Spec Type: Impression Subm Dr: Martita Hoppre MD Tissues: PATHPER Procedures: PATHREVIEW Patient: Penny Ordaz [id number] (Continued) Specimen: BP25-3 Received: 10/11/24 (Continued) Pathologist Review (Continued) [id number] Specimen: BP25-3 Received: 10/11/24 Status: QUOC Swain Num: [id number] Spec Type: Impression Subm Dr: Martita Hopper MD Tissues: PATHPER Procedures: PATHREVIEW Patient: Penny Ordaz [id number] (Continued) Signed (signature on file) Chin-Michael Calderón MD 10/14/[address] [place] [address] Physician GroupBASIC METABOLIC PANLon 74-56-3730Ucwxf gap [Moles/Vol]6 mmol/LNormal5-15ProSelect Medical Specialty Hospital - Young[facility] HospitalComment on above: Performed By: #### CBCSherry, PINR, BMP, 21288-6, 2284-8, 41675-1, LIVR #### [facility] ([id number]) [address], [address] [place], [place] [address]Dwefjmm [Mass/Vol]9.0 mg/dLNormal8.5-10.5PCorey HospitalComment on above:Performed By: #### CBCA, PINR, BMP, 77955-3, 2284-8, 73541-9, LIVR #### [facility] ([id number]) [address], [address] [place], [place] [address]Qmbvpotb [Moles/Vol]102 mmol/HYtbqxn71-316LrqDjtouz [place] HospitalComment on above:Performed By: #### CBCA, PINR, BMP, 81281-9, 2284-8, 12112-0, LIVR #### [facility] ([id number]) [address], [address] [place], [place] [address]JE2 [Moles/Vol]29 mmol/PKdolpv82-66IygQqobgfCorey Hospital Comment on above:Performed By: #### CBCA, PINR, BMP, 92594-4, 2284-8, 02357-1, LIVR #### [facility] ([id number]) [address], [address] [place], [place] [address]Vglsdrknxs [Mass/Vol]0.67 mg/dLNormal0.60-1.30ProSelect Medical Specialty Hospital - [facility] HospitalComment on above:Result Comment: METHOD TRACEABLE TO IDMS STANDARD Performed By: #### CBCA, PINR, BMP, 54247-9, 2284-8, 88860-8, LIVR #### [facility] ([id number]) [address], [address] [place], [place] [address]rQAU (CKD-EPI) NON-RACE DEPENDENT>90Normal>59ProSelect Medical Specialty Hospital - [facility] HospitalComment on above:Result Comment: Reported eGFR is based on the CKD-EPI 2020 equation that does not use a race coefficient.Performed By: #### CBCA, PINR, BMP, 99849-3, 2284-8, 55777-2, LIVR #### [facility] ([id number]) [address], [address] [place], [place] [address]Ktdufds [Mass/Vol]103 mg/oHIika72-98AtyQatyjk [facility] Comment on above:Performed By: #### CBCA, PINR, BMP, 92088-4, 2284-8, 45823-6, LIVR #### [facility] ([id number]) [address], [address] [place], [place] [address]Yaqgfkrki [Moles/Vol]4.4 mmol/LNormal3.5-5.0ProSelect Medical Specialty Hospital - [facility] HospitalComment on above:Performed By: #### CBCA, PINR, BMP, 40341-1, 2284-8, 79736-4, LIVR #### [facility] ([id number]) [address], [address] [place], [place] [address]Etypxi [Moles/Vol]137 mmol/VEpfmxe908-274NqvNbkqnn [place] HospitalComment on above:Performed By: #### CBCA, PINR, BMP, 02276-5, 2284-8, 02527-7, LIVR #### [facility] ([id number]) [address], [address] [place], [place] [address]Oaon nitrogen [Mass/Vol]11 mg/dLNormal5-27Pro[facility] [place] HospitalComment on above:Performed By: #### CBCA, PINR, BMP, 87435-1, 2284-8, 66941-5, LIVR #### [facility] ([id number]) [address], [address] [place], [place] [address]EECIMOFU BLOOD COUNTon 35-14-8126Oqncisdwxje distribution width (RBC) [Ratio]21.1 %High11.5-15.0ProMedica Arauz HospitalComment on above: Performed By: #### CBCA, PINR, BMP, 22175-6, 2284-8, 22220-3, LIVR #### [facility] ([id number]) [address], [address] [place], [place] [address]Ywsjnqqxzd (Bld) [Volume fraction]23.4 %Frr83-80QmjRermzq [place] HospitalComment on above:Performed By: #### CBCA, PINR, BMP, 22298-8, 2284-8, 37645-5, LIVR #### [facility] ([id number]) [address], [address] [place], [place] [address]Txgtwvkxgk (Bld) [Mass/Vol]7.7 g/dLLow13.0-17.0ProKettering Memorial Hospitalca [place] HospitalComment on above:Performed By: #### CBCA, PINR, BMP, 11870-0, 2284-8, 15877-2, LIVR #### [facility] ([id number]) [address], [address] [place], [place] [address]ENT (RBC) [Entitic mass]30.3 fkJmdyxs59-88PxcYpxrmx [place] HospitalComment on above:Performed By: #### CBCA, PINR, BMP, 99883-2, 2284-8, 12408-4, LIVR #### [facility] ([id number]) [address], [address] [place], [place] [address]KRNE (RBC) [Mass/Vol]32.8 g/wNPttrek68-60OyrXojliv [facility] HospitalComment on above:Performed By: #### CBCA, PINR, BMP, 61787-7, 2284-8, 03752-0, LIVR #### [facility] ([id number]) [address], [address] [place], [place] [address]QCB (RBC) [Entitic vol]93 cSQuenox15-309AjsOwqruo [facility] HospitalComment on above:Performed By: #### CBCA, PINR, BMP, 97332-5, 2284-8, 32090-0, LIVR #### [facility] ([id number]) [address], [address] [place], [place] [address]Ypeoiqxo mean volume (Bld) [Entitic vol]8.3 fLNormal7-12 [facility] HospitalComment on above:Performed By: #### CBCA, PINR, BMP, 07434-0, 2284-8, 16474-9, LIVR #### [facility] ([id number]) [address], [address] [place], [place] [address]Jwpjyevwc (Bld) [#/Vol]423 10*3/hOPhqzub696-739SrtMngeff [place] HospitalComment on above:Performed By: #### CBCA, PINR, BMP, 23723-4, 2284-8, 57508-3, LIVR #### [facility] ([id number]) [address], [address] [place], [place] [address]YWY COUNT2.53 X10E12/LLow4.10-5.70[facility] Comment on above:Performed By: #### CBCA, PINR, BMP, 96253-5, 2284-8, 41878-0, LIVR #### [facility] ([id number]) [address], [address] [place], [place] [address]FII (Bld) [#/Vol]5.3 10*3/uLNormal4.0-11.0ProAcmc Healthcare SystemComment on above:Performed By: #### CBCA, PINR, BMP, 45459-2, 2284-8, 38071-8, LIVR #### [facility] ([id number]) [address], [address] [place], [place] [address]VQO A1C (GLYCO-HGB)on 41-19-4873Jprccop [Mass/Vol]105 mg/dL NormalProAcmc Healthcare SystemComment on above:Performed By: #### CBCA, PINR, BMP, 82990-7, 4-8, 35894-3, LIVR #### [facility] ([id number]) [address], [address] [place], [place] [address]AaD8b (Bld) [Mass fraction]5.3 %Normal4.4-5.6Mer[facility] Health Willard HospitalComment on above:Result Comment: NOTE ADA Guidelines Result HgbA1c Normal : less than 5.7 % Prediabetes : 5.7 % to 6.4 % Diabetes : > 6.4 % Use with caution in patients with abnormal hemoglobin variants as the half-life of red blood cells and in vivo glycation rates are affected.Performed By: #### CBCA, PINR, BMP, 58701-7, 2284-8, 20633-3, LIVR #### [facility] ([id number]) [address], [address] [place], [place] [address]MIFYL METABOLIC PANLon 33-09-9979Vnpmc gap [Moles/Vol]5 mmol/L Normal5-15Pro[facility] HospitalComment on above:Performed By: #### CBCA, PINR, BMP, 82378-5, 2284-8, 39823-5, LIVR #### [facility] ([id number]) [address], [address] [place], [place] [address]Noraoas [Mass/Vol]8.7 mg/dLNormal8.5-10.5PCorey HospitalComment on above:Performed By: #### CBCA, PINR, BMP, 65009-3, 2284-8, 81117-2, LIVR #### [facility] ([id number]) [address], [address] [place], [place] [address]Oiblytlw [Moles/Vol]101 mmol/FAmgrtu78-299TzhTljsag [place] HospitalComment on above:Performed By: #### CBCA, PINR, BMP, 08575-5, 2284-8, 29045-9, LIVR #### [facility] ([id number]) [address], [address] [place] [address]WG5 [Moles/Vol]28 mmol/QLfbkrc13-65LkcOizqru [facility] Comment on above:Performed By: #### CBCA, PINR, BMP, 19990-8, 2284-8, 55712-9, LIVR #### [facility] ([id number]) [address], [address] [place], [place] [address]Wsxsebeaee [Mass/Vol]0.54 mg/dLLow0.60-1.30ProSelect [facility] HospitalComment on above:Result Comment: METHOD TRACEABLE TO IDMS STANDARD Performed By: #### CBCA, PINR, BMP, 48230-9, 2284-8, 35614-1, LIVR #### [facility] ([id number]) [address], [address] [place], [place] [address]kCOO (CKD-EPI) NON-RACE DEPENDENT>90Normal>59Pro[facility]ica [facility]uz HospitalComment on above:Result Comment: Reported eGFR is based on the CKD-EPI 2020 equation that does not use a race coefficient.Performed By: #### CBCA, PINR, BMP, 66229-5, 2284-8, 96689-5, LIVR #### [facility] ([id number]) [address], [address] [place], [place] [address]Hloxrex [Mass/Vol]90 mg/sSRyugza34-49WtaEhrhna [facility] Comment on above:Performed By: #### CBCA, PINR, BMP, 49801-6, 2284-8, 33132-9, LIVR #### [facility] ([id number]) [address], [address] [place], [place] [address]Adxygvycn [Moles/Vol]4.5 mmol/LNormal3.5-5.0ProAcmc Healthcare SystemComment on above:Performed By: #### CBCA, PINR, BMP, 12195-4, 2284-8, 03270-7, LIVR #### [facility] ([id number]) [address], [address] [place], [place] [address]Yrwmfu [Moles/Vol]134 mmol/PQlufiu161-404CrlBrgarz [facility] HospitalComment on above:Performed By: #### CBCA, PINR, BMP, 34950-6, 2284-8, 61055-8, LIVR #### [facility] ([id number]) [address], [address] [place], [place] [address]Uaho nitrogen [Mass/Vol]10 mg/dLNormal5-27ProSelect [facility] HospitalComment on above:Performed By: #### CBCA, PINR, BMP, 17249-7, 2284-8, 22149-4, LIVR #### [facility] ([id number]) [address], [address] [place], [place] [address]UER AND AUTO DIFFon 79-56-6036Xvxb form neutrophils/100 WBC (Bld)26.0 %NormalProMedica Quebradillas HospitalComment on above:Performed By: #### CBCA, PINR, BMP, 38659-9, 2284-8, 75586-7, LIVR #### [facility] ([id number]) [address], [address] [place], [place] [address]Kilattuutpv distribution width (RBC) [Ratio]21.4 %High11.5-15.0 [facility] HospitalComment on above:Performed By: #### CBCA, PINR, BMP, 73808-9, 2284-8, 99022-7, LIVR #### [facility] ([id number]) [address], [address] [place], [place] [address]JNRVDAAC6+AbnormalNONEProMedica [place]bradillas HospitalComment on above: Performed By: #### CBCA, PINR, BMP, 59019-9, 2284-8, 98616-3, LIVR #### [facility] ([id number]) [address], [address] [place], [place] [address]Roxaghukwa (Bld) [Volume fraction]24.1 %Uyi92-83NjuKnckrs [facility] HospitalComment on above:Performed By: #### CBCA, PINR, BMP, 41114-2, 2284-8, 07546-7, LIVR #### [facility] ([id number]) [address], [address] [place], [place] [address]Rghdumwzrd (Bld) [Mass/Vol]7.9 g/dLLow13.0-17.0Pro[facility] HospitalComment on above:Performed By: #### CBCA, PINR, BMP, 85418-3, 2284-8, 98825-1, LIVR #### [facility] ([id number]) [address], [address] [place], [place] [address]Cadybqtzumj (Bld) [#/Vol]0.3 10*3/uLLow1.0-3.5Pro[facility] HospitalComment on above:Performed By: #### CBCA, PINR, BMP, 47417-4, 2284-8, 85442-9, LIVR #### [facility] ([id number]) [address], [address] [place], [place] [address]Rwgrvljmaid/100 WBC (Bld)5.0 %NormalProSelect Medical Specialty [facility] Hospital Comment on above:Performed By: #### CBCA, PINR, BMP, 41302-2, 2284-8, 09848-9, LIVR #### [facility] ([id number]) [address], [address] [place], [place] [address]IJJ (RBC) [Entitic mass]30.4 slEroaxc39-41TbsGueceb [facility] HospitalComment on above:Performed By: #### CBCA, PINR, BMP, 93046-5, 2284-8, 18706-6, LIVR #### [facility] ([id number]) [address], [address] [place], [place] [address]CMAC (RBC) [Mass/Vol]32.7 g/bWRlqdgf85-71XjpZefntr [facility] HospitalComment on above:Performed By: #### CBCA, PINR, BMP, 82118-9, 2284-8, 12934-9, LIVR #### [facility] ([id number]) [address], [address] [place], [place] [address]QFJ (RBC) [Entitic vol]93 uTXoqngy65-455AcnLqtidr [facility] HospitalComment on above:Performed By: #### CBCA, PINR, BMP, 00550-2, 2284-8, 99190-9, LIVR #### [facility] ([id number]) [address], [address] [place], [place] [address]Qhspozlyd (Bld) [#/Vol]0.2 10*3/uLNormal0-0.9Pro[facility]ica [facility] HospitalComment on above:Performed By: #### CBCA, PINR, BMP, 77720-6, 2284-8, 41513-4, LIVR #### [facility] ([id number]) [address], [address] [place], [place] [address]Paanuhrqt/100 WBC (Bld)3.0 %NormalProKettering Memorial Hospitalca [facility] Comment on above:Performed By: #### CBCA, PINR, BMP, 14570-1, 2284-8, 54438-2, LIVR #### [facility] ([id number]) [address], [address] [place], [place] [address]Xcctkdaoqkw (Bld) [#/Vol]6.3 10*3/uLNormal1.5-6.6[facility] HospitalComment on above:Performed By: #### CBCA, PINR, BMP, 54645-8, 2284-8, 11371-1, LIVR #### [facility] ([id number]) [address], [address] [place], [place] [address]ZDCJTCURE5+AbnormalNONEProMedica [facility] HospitalComment on above:Performed By: #### CBCA, PINR, BMP, 34403-5, 2284-8, 06013-1, LIVR #### [facility] ([id number]) [address], [address] [place], [place] [address]Yhttgzfn mean volume (Bld) [Entitic vol]8.3 fLNormal7-12 [facility] HospitalComment on above:Performed By: #### CBCA, PINR, BMP, 05995-1, 2284-8, 27040-1, LIVR #### [facility] ([id number]) [address], [address] [place], [place] [address]Ltjwhsblb (Bld) [#/Vol]235 10*3/fLWpopho641-616YuvZrxwih Ara[facility] HospitalComment on above:Performed By: #### CBCA, PINR, BMP, 54842-1, 2284-8, 21016-6, LIVR #### [facility] ([id number]) [address], [address] [place], [place] [address]KJLMUGKZKJOWV5+AbnormalNONEProMedica [facility] Center South CampusComment on above:Performed By: #### CBCA, PINR, BMP, 22215-2, 2284-8, 80494-7, LIVR #### [facility] ([id number]) [address], [address] [place], [place] [address]ZUT COUNT2.59 X10E12/LLow4.10-5.70Pro[facility] Comment on above:Performed By: #### CBCA, PINR, BMP, 46553-0, 2284-8, 96951-4, LIVR #### [facility] ([id number]) [address], [address] [place], [place] [address]CCL CIIRFYNHEY65.0 %NormalProAcmc Healthcare SystemComment on above:Performed By: #### CBCA, PINR, BMP, 64988-4, 2284-8, 62865-2, LIVR #### [facility] ([id number]) [address], [address] [place], [place] [address]ZRH (Bld) [#/Vol]6.8 10*3/uLNormal4.0-11.0ProAcmc Healthcare SystemComment on above:Performed By: #### CBCA, PINR, BMP, 23142-9, 2284-8, 51328-0, LIVR #### [facility] ([id number]) [address], [address] [place], [place] [address]Xxagaln Glucometer (BldC) [Mass/Vol]on 11-68-4794Xytpnkb [Mass/Vol]126 mg/hOHzlw09-17HbrAifxhd [place] HospitalGlucose [Mass/Vol]100 mg/dL Alnw20-84FabDtrefoAcmc Healthcare SystemBASIC METABOLIC PANLon 82-25-5139Uwbnp gap [Moles/Vol]5 mmol/LNormal5-15Pro[facility] HospitalComment on above:Performed By: #### CBCA, PINR, BMP, 68558-9, 2284-8, 99284-9, LIVR #### [facility] ([id number]) [address], [address] [place], [place] [address]Qsnxxbn [Mass/Vol]8.2 mg/dLLow8.5-10.5PCorey Hospital Comment on above:Performed By: #### CBCA, PINR, BMP, 20683-1, 2284-8, 81710-9, LIVR #### [facility] ([id number]) [address], [address] [place], [place] [address]Hnqofhqo [Moles/Vol]102 mmol/FEbqexu09-955KpmCrplwc [facility] HospitalComment on above:Performed By: #### CBCA, PINR, BMP, 65598-1, 2284-8, 41773-6, LIVR #### [facility] ([id number]) [address], [address] [place], [place] [address]YV5 [Moles/Vol]28 mmol/GKkhidx26-12UqaCxerdxCorey Hospital Comment on above:Performed By: #### CBCA, PINR, BMP, 44014-5, 2284-8, 23612-1, LIVR #### [facility] ([id number]) [address], [address] [place], [place] [address]Qelbmhpwvd [Mass/Vol]0.57 mg/dLLow0.60-1.30ProAcmc Healthcare SystemComment on above:Result Comment: METHOD TRACEABLE TO IDMS STANDARD Performed By: #### CBCA, PINR, BMP, 62054-2, 2284-8, 76740-9, LIVR #### [facility] ([id number]) [address], [address] [place], [place] [address]qUCN (CKD-EPI) NON-RACE DEPENDENT>90Normal>59ProSelect [facility] HospitalComment on above:Result Comment: Reported eGFR is based on the CKD-EPI 2020 equation that does not use a race coefficient.Performed By: #### CBCA, PINR, BMP, 71930-1, 2284-8, 13781-6, LIVR #### [facility] ([id number]) [address], [address] [place], [place] [address]Vuibswo [Mass/Vol]99 mg/qKXxlwpl03-09NgrBgjndw [facility] Comment on above:Performed By: #### CBCA, PINR, BMP, 52524-9, 2284-8, 40246-3, LIVR #### [facility] ([id number]) [address], [address] [place], [place] [address]Cvuqxixry [Moles/Vol]4.4 mmol/LNormal3.5-5.0ProSelect [facility] HospitalComment on above:Performed By: #### CBCA, PINR, BMP, 04958-8, 2284-8, 71417-4, LIVR #### [facility] ([id number]) [address], [address] [place], [place] [address]Jphnse [Moles/Vol]135 mmol/OYkeqhi725-478FrsIclcnv [facility] HospitalComment on above:Performed By: #### CBCA, PINR, BMP, 35278-0, 2284-8, 08362-5, LIVR #### [facility] ([id number]) [address], [address] [place], [place] [address]Auil nitrogen [Mass/Vol]11 mg/dLNormal5-27ProSelect [facility] HospitalComment on above:Performed By: #### CBCA, PINR, BMP, 29862-9, 2284-8, 88924-0, LIVR #### [facility] ([id number]) [address], [address] [place], [place] [address]CJF AND AUTO DIFFon 64-82-3239Ggjg form neutrophils/100 WBC (Bld)21.0 %NormalProMedica Quebradillas HospitalComment on above:Performed By: #### CBCA, PINR, BMP, 40766-6, 2284-8, 82023-1, LIVR #### [facility] ([id number]) [address], [address] [address]Qhhnixvfgco distribution width (RBC) [Ratio]19.8 %High11.5-15.0 ProMMagruder Memorial Hospital HospitalComment on above:Performed By: #### CBCA, PINR, BMP, 43292-7, 2284-8, 21537-0, LIVR #### [facility] ([id number]) [address], [address] [address]AIUZTMFJ7+AbnormalNONEProMedica [facility] HospitalComment on above: Performed By: #### CBCA, PINR, BMP, 79804-5, 2284-8, 66342-5, LIVR #### [facility] ([id number]) [address], [address] [address]Mxfvkgtzgs (Bld) [Volume fraction]21.3 %Xkf77-60QsaFanmmj [place] HospitalComment on above:Performed By: #### CBCA, PINR, BMP, 64184-0, 2284-8, 87230-9, LIVR #### [facility] ([id number]) [address], [address] [address]Aktthppzsf (Bld) [Mass/Vol]6.9 g/dLCritically low13.0-17.0 [facility] HospitalComment on above:Performed By: #### CBCA, PINR, BMP, 26797-1, 2284-8, 15269-3, LIVR #### [facility] ([id number]) [address], [address] [address]ITWQGAJY MONONUCLEAR1.0 %NormalProKettering Memorial Hospitalca [place] HospitalComment on above:Performed By: #### CBCA, PINR, BMP, 97641-5, 2284-8, 20222-6, LIVR #### [facility] ([id number]) [address], [address] [place], [place] [address]Kjwtfjerqjo (Bld) [#/Vol]0.6 10*3/uLLow1.0-3.5[facility] HospitalComment on above:Performed By: #### CBCA, PINR, BMP, 28520-6, 2284-8, 83539-3, LIVR #### [facility] ([id number]) [address], [address] [place], [place] [address]Evxwnjrxrll/100 WBC (Bld)9.0 %NormalProKettering Memorial Hospitalca [facility] Comment on above:Performed By: #### CBCA, PINR, BMP, 12825-7, 2284-8, 62310-5, LIVR #### [facility] ([id number]) [address], [address] [place], [place] [address]WIQ (RBC) [Entitic mass]30.5 peQxnafo01-89PwbMqaxvl [place] HospitalComment on above:Performed By: #### CBCA, PINR, BMP, 82181-2, 2284-8, 33070-0, LIVR #### [facility] ([id number]) [address], [address] [place], [place] [address]QSFR (RBC) [Mass/Vol]32.5 g/nLYqgycy50-09SelBzhkof [facility] HospitalComment on above:Performed By: #### CBCA, PINR, BMP, 77524-2, 2284-8, 98990-1, LIVR #### [facility] ([id number]) [address], [address] [place], [place] [address]KHP (RBC) [Entitic vol]94 uWZwlnkv46-326RmyZaknch [facility] HospitalComment on above:Performed By: #### CBCA, PINR, BMP, 36827-0, 2284-8, 70371-1, LIVR #### [facility] ([id number]) [address], [address] [place], [place] [address]Hcdjxdnyp (Bld) [#/Vol]0.2 10*3/uLNormal0-0.9[facility] HospitalComment on above:Performed By: #### CBCA, PINR, BMP, 16392-0, 2284-8, 74778-9, LIVR #### [facility] ([id number]) [address], [address] [place], [place] [address]Kaxzlsrko/100 WBC (Bld)3.0 %NormalProSelect Medical [facility] Comment on above:Performed By: #### CBCA, PINR, BMP, 89623-1, 2284-8, 87454-8, LIVR #### [facility] ([id number]) [address], [address] [place], [place] [address]Uxqpeqhitqk (Bld) [#/Vol]5.3 10*3/uLNormal1.5-6.6ProSelect [facility] HospitalComment on above:Performed By: #### CBCA, PINR, BMP, 30328-2, 2284-8, 40221-9, LIVR #### [facility] ([id number]) [address], [address] [place], [place] [address]DVTWEHKEA7+AbnormalNONEProMedica [facility] HospitalComment on above:Performed By: #### CBCA, PINR, BMP, 84938-4, 2284-8, 97815-3, LIVR #### [facility] ([id number]) [address], [address] [place], [place] [address]Rernuikm mean volume (Bld) [Entitic vol]8.0 fLNormal7-12 [facility] HospitalComment on above:Performed By: #### CBCA, PINR, BMP, 54432-1, 2284-8, 99452-5, LIVR #### [facility] ([id number]) [address], [address] [place], [place] [address]Kbxkoymbm (Bld) [#/Vol]226 10*3/iFFpatnn030-244LucDgtvtg [facility] HospitalComment on above:Performed By: #### CBCA, PINR, BMP, 84082-9, 2284-8, 94589-0, LIVR #### [facility] ([id number]) [address], [address] [place], [place] [address]VYHDLATTLRUMP2+AbnormalNONEProMedica Arauz HospitalComment on above:Performed By: #### CBCA, PINR, BMP, 05981-2, 2284-8, 48645-5, LIVR #### [facility] ([id number]) [address], [address] [place], [place] [address]JCM COUNT2.27 X10E12/LLow4.10-5.70[facility] Comment on above:Performed By: #### CBCA, PINR, BMP, 80156-4, 2284-8, 15189-5, LIVR #### [facility] ([id number]) [address], [address] [place], [place] [address]RJT NRVXLIJTEB00.0 %NormalProMedica Arauz HospitalComment on above:Performed By: #### CBCA, PINR, BMP, 61792-7, 2284-8, 01626-6, LIVR #### [facility] ([id number]) [address], [address] [place], [place] [address]MGJNFQXT2+AbnormalNONEProMedica [facility]uz HospitalComment on above: Performed By: #### CBCA, PINR, BMP, 70086-9, 2284-8, 69729-4, LIVR #### [facility] ([id number]) [address], [address] [place], [place] [address]OON (Bld) [#/Vol]6.2 10*3/uLNormal4.0-11.0ProKettering Memorial Hospitalca [place] HospitalComment on above:Performed By: #### CBCA, PINR, BMP, 99539-8, 2284-8, 02621-9, LIVR #### [facility] ([id number]) [address], [address] [place], [place] [address]Omfiofe Glucometer (BldC) [Mass/Vol]on 52-95-8185Jwrnxwg [Mass/Vol]116 mg/pAXyyh25-99BoiEhpomg [facility] HospitalGlucose [Mass/Vol]106 mg/dL Ihun21-49LbxBamyig [facility] HospitalGlucose [Mass/Vol]112 mg/lEFoel13-81YnaVnssrn [facility] HospitalGlucose [Mass/Vol]153 mg/dJRkwg74-32YiwBcocld [facility] HospitalHGB on 93-37-0564Fvbuvkfncr (Bld) [Volume fraction]24.1 %Yux25-30MbaGtgxsv [facility] HospitalComment on above:Performed By: #### CBCA, PINR, BMP, 42901-0, 4-8, 45503-2, LIVR #### [facility] ([id number]) [address], [address] [place], [place] [address]Nokmyoylvd (Bld) [Mass/Vol]7.9 g/dLLow13.0-17.0ProSelect [facility] Specialty [facility] HospitalComment on above:Performed By: #### CBCA, PINR, BMP, 63555-8, 2284-8, 70558-7, LIVR #### [facility] ([id number]) [address], [address] [place], [place] [address]KTSSRXY AND INRon 57-18-7879OXU Coag (PPP) [Relative time]1.4 {INR}High0.9-1.2Pro[facility] HospitalComment on above:Performed By: #### CBCA, PINR, BMP, 94980-1, 2284-8, 41080-1, LIVR #### [facility] ([id number]) [address] [place], [place] [address]BN Coag (PPP) [Time]16.0 sHigh9.8-13.2PCorey Hospital Comment on above:Performed By: #### CBCA, PINR, BMP, 61589-8, 2284-8, 19221-2, LIVR #### [facility] ([id number]) [address] [place], [place] [address]YLAI PATHOGENS/YEZP-WpF-9py 23-98-9524Uhaqtxyqjdd pathogens DNA and RNA panel RICK+non-probe (Nph)SPECIMEN SOURCE NASO PHARYNX ADENOVIRUS Not detected (qualifier [...] other pathogens. The agent(s) detected by the Blue PerchFire RP2.1 may not be the definite cause [...] evaluating a patient with possible respiratory tract infection.NormalMercy Health Willard HospitalComment on above:Performed By: #### CBCA, PINR, BMP, 77226-7, 2284-8, 58957-1, LIVR #### [facility] ([id number]) [address], [address] [place], [place] [address]PB CHEST 1 VWon 95-15-1288ZI CHEST 1 VWXR CHEST 1 VW CHEST 1 VIEW HISTORY: Pneumothorax follow-up COMPARISON: 09/11/2024, 1:48 PM IMPRESSION: * Previously seen right apical pneumothorax not well visible. Small right pleural effusion. * Left lung is clear. * Unchanged cardiomediastinal silhouette. Finalized by Kristofer Lee MD on 09/11/2024 10:30 PMNormalMercy Health Willard HospitalXR CHEST 1 VWXR CHEST 1 VW Single view chest History:effusion s/p thoracentesis Difficulty breathing, shortness of breath Comparison: 09/07/2024 Findings: Single portable view of the chest. Small right pleural effusion with right lower lung atelectasis versus pneumonia. Possible small right apical pneumothorax measuring 12 to 13 mm. Impression: Decreased small right pleural effusion with underlying atelectasis versus pneumonia. Possible smallright apical pneumothorax measuring 12 to 13 mm.. Finalized by Tamela Escalante MD on 09/11/2024 2:02 PMNormalMercy Health Willard HospitalBF CELL CT AND DIFFon 47-16-5310NBNK FLUID COMMENT Interpretation--------NormalMercy Health Willard HospitalComment on above: Result Comment: Reference values for this fluid type are undefined, as fluid accumulation is considered abnormal. SEE CYTOLOGY REPORT Corrected on 09/11 AT 1341: Previously reported as Interpretation Reference values for this fluid type are undefined, as fluid accumulation is considered abnormal.Performed By: #### CBCA, PINR, BMP, 42983-9, 2284-8, 49700-6, LIVR #### [facility] ([id number]) [address], [address] [address]LSMBH CLARITYCLEARNormalNorwalk Memorial Hospital HospitalComment on above:Performed By: #### CBCA, PINR, BMP, 37521-9, 2284-8, 43469-7, LIVR #### [facility] ([id number]) [address] [address]SSYKB COLORSTRAWNormalNorwalk Memorial Hospital HospitalComment on above: Performed By: #### CBCA, PINR, BMP, 38948-8, 2284-8, 16133-8, LIVR #### [facility] ([id number]) [address], [address] [address]NRWSB JBUCCKDRKT72 %NormalMercy Health Willard HospitalComment on above:Performed By: #### CBCA, PINR, BMP, 97732-0, 2284-8, 63989-4, LIVR #### [facility] ([id number]) [address], [place] [address]SYACW KUJDFZUTVNA57 %NormalProMedica Quebradillas HospitalComment on above:Performed By: #### CBCA, PINR, BMP, 86621-1, 2284-8, 95537-5, LIVR #### [facility] ([id number]) [address], [address] [place], [place] [address]FHVKB RBC CT83 /uLNormalProMedica [place]illas HospitalComment on above:Performed By: #### CBCA, PINR, BMP, 66916-4, 2284-8, 73129-7, LIVR #### [facility] ([id number]) [address], [address] [place], [place] [address]DGGQR SPECIMEN TYPEPLEURAL FLUIDNormalProSelect [facility] Comment on above:Result Comment: RIGHTPerformed By: #### CBCA, PINR, BMP, 51896- 9, 2284-8, 71629-4, LIVR #### [facility] ([id number]) [address], [address] [place], [place] [address]OYMRSRSAATU30 %NormalProKettering Memorial Hospitalca [place] HospitalComment on above: Performed By: #### CBCA, PINR, BMP, 02425-2, 2284-8, 16371-8, LIVR #### [facility] ([id number]) [address], [address] [place], [place] [address]INGNIXMXE CELL CT182 /uLNormalProMedica Quebradillas HospitalComment on above:Performed By: #### CBCA, PINR, BMP, 60236-6, 2284-8, 41625-2, LIVR #### [facility] ([id number]) [address], [address] [place], [place] [address]DXRL MARROWon [id number] MARROWSEE SEPARATE REPORTNormal [facility] HospitalComment on above:Result Comment: REVIEWED BY Tito ALONZO M.D.Performed By: #### CBCA, PINR, BMP, 69113-9, 2284-8, 48372-8, LIVR #### [facility] ([id number]) [address], [address] [place], [place] [address]ESZ AND AUTO DIFFon [id number] form neutrophils/100 WBC (Bld)33.0 %NormalProMedica Quebradillas HospitalComment on above:Performed By: #### CBC, TSHR, 2132-03 #### [facility] ([id number]) [address], [facility] [address] [place], [place] [address]Uhmmqcdboth distribution width (RBC) [Ratio]20.7 %High11.5-15.0 [facility] HospitalComment on above:Performed By: #### CBC, TSHR, 2132-03 #### [facility] ([id number]) [address], [facility] [address] [place], [place] [address]ZIKTXHBW2+AbnormalNONEProMedica Quebradillas HospitalComment on above: Performed By: #### CBC, TSHR, 2132-03 #### [facility] ([id number]) [address], [facility] [address] [place], [place] [address]Hfbejudoss (Bld) [Volume fraction]21.8 %Pqj46-12VqpUoaivw [place] HospitalComment on above:Performed By: #### CBC, TSHR, 2132-03 #### [facility] ([id number]) [address], [facility] [address] [place], [place] [address]Wvutohqqix (Bld) [Mass/Vol]7.2 g/dLLow13.0-17.0ProMedica [facility] HospitalComment on above:Performed By: #### CBC, TSHR, 2132-03 #### [facility] ([id number]) [address], [facility] [address] [place], [place] [address]Fsdbsaagcvv (Bld) [#/Vol]0.8 10*3/uLLow1.0-3.5Pro[facility]ica [facility] HospitalComment on above:Performed By: #### CBC, TSHR, 2132-03 #### [facility] ([id number]) [address], [address] [place], [place] [address]Onvdsvabxbz/100 WBC (Bld)12.0 %NormalMercy Health [facility] Comment on above:Performed By: #### CBC, TSHR, 2132-03 #### [facility] ([id number]) [address], [address] [place], [place] [address]AUL (RBC) [Entitic mass]30.8 iqPpbmmb73-14WaaOlkide [place] HospitalComment on above:Performed By: #### CBC, TSHR, 2132-03 #### [facility] ([id number]) [address], [address] [place], [place] [address]ORKD (RBC) [Mass/Vol]32.9 g/aRMnttdy88-41ZdzGtpkxe [place] HospitalComment on above:Performed By: #### CBC, TSHR, 2132-03 #### [facility] ([id number]) [address], [address] [place], [place] [address]LEK (RBC) [Entitic vol]94 jAJjdvtv28-081YvsOzjoxr [place] HospitalComment on above:Performed By: #### CBC, TSHR, 2132-03 #### [facility] ([id number]) [address], [address] [place] [address]Dfawvdrohuzash/100 WBC (Bld)3.0 %NormalMercy Health Willard Hospital Comment on above:Performed By: #### CBC, TSHR, 2132-03 #### [facility] ([id number]) [address], [address] [place], [place] [address]Gxvdjtzdg (Bld) [#/Vol]0.1 10*3/uLNormal0-0.9ProKettering Memorial Hospitalca [place] HospitalComment on above:Performed By: #### CBC, TSHR, 2132-03 #### [facility] ([id number]) [address], [address] [place], [place] [address]Ohkvdtvbs/100 WBC (Bld)1.0 %NormalProKettering Memorial Hospitalca [facility] Comment on above:Performed By: #### CBC, TSHR, 2132-03 #### [facility] ([id number]) [address], [address] [place], [place] [address]DAVYEVMLZ6.0 %NormalProMedica Quebradillas HospitalComment on above: Performed By: #### CBC, TSHR, 2132-03 #### [facility] ([id number]) [address], [address] [place], [place] [address]Aissppknvug (Bld) [#/Vol]5.2 10*3/uLNormal1.5-6.6Pro[facility]ica [place] HospitalComment on above:Performed By: #### CBC, TSHR, 2132-03 #### [facility] ([id number]) [address], [address] [place], [place] [address]SCRUGBCSQ3+AbnormalNONEProMedica Arauz HospitalComment on above:Performed By: #### CBC, TSHR, 2132-03 #### [facility] ([id number]) [address], [address] [place], [place] [address]Wqewwmgd mean volume (Bld) [Entitic vol]8.1 fLNormal7-12 [facility] HospitalComment on above:Performed By: #### CBC, TSHR, 2132-03 #### [facility] ([id number]) [address], [address] [place], [place] [address]Uaqgngfes (Bld) [#/Vol]231 10*3/sCVoltur648-592AhdFnzeqn [facility]uz HospitalComment on above:Performed By: #### CBC, TSHR, 2132-03 #### [facility] ([id number]) [address], [address] [place], [place] [address]QTKSJKSBFUZTY6+AbnormalNONEProMedica Quebradillas HospitalComment on above:Performed By: #### CBC, TSHR, 2132-03 #### [facility] ([id number]) [address], [address] [place], [place] [address]XYM COUNT2.33 X10E12/LLow4.10-5.70[facility] Comment on above:Performed By: #### CBC, TSHR, 2132-03 #### [facility] ([id number]) [address], [address] [place], [place] [address]MKI SSORVOMQQJ96.0 %NormalProSelect Medical Specialty Hospital - Youngstown HospitalComment on above:Performed By: #### CBC, TSHR, 2132-03 #### [facility] ([id number]) [address], [address] [place], [place] [address]KTV (Bld) [#/Vol]6.4 10*3/uLNormal4.0-11.0ProKettering Memorial Hospitalca [place] HospitalComment on above:Performed By: #### CBC, TSHR, 2132-03 #### [facility] ([id number]) [address], [address] [place], [place] [address]WWQNXTQDSBRJL METABOLIC PANELon 02-11-9569Tvkhxoj [Mass/Vol]3.6 g/dLNormal3.2-5.3Pro[facility]ica [place] HospitalComment on above:Performed By: #### CBC, TSHR, 2132-03 #### [facility] ([id number]) [address], [address] [place], [place] [address]SQB [Catalytic activity/Vol]75 U/DWcrsrx40-166TtvJrhhcj [place] HospitalComment on above:Performed By: #### CBC, TSHR, 2132-03 #### [facility] ([id number]) [address], [address] [place], [place] [address]QMN [Catalytic activity/Vol]7 U/LNormal0-40ProMedica [facility] HospitalComment on above:Performed By: #### KHRIS TSHR, 2132-03 #### [facility] ([id number]) [address], [address] [place], [place] [address]Tcyfu gap [Moles/Vol]5 mmol/LNormal5-15[facility] Comment on above:Performed By: #### KHRIS TSHR, 2132-03 #### [facility] ([id number]) [address], [address] [place], [place] [address]IAX [Catalytic activity/Vol]17 U/LNormal0-41ProMedica [facility] HospitalComment on above:Performed By: #### KHRIS TSHR, 2132-03 #### [facility] ([id number]) [address], [address] [place], [place] [address]Bswignnqy [Mass/Vol]0.8 mg/dLNormal0.3-1.2ProMedeast alabama [facility] center [facility]uz HospitalComment on above:Performed By: #### KHRIS TSHR, 2132-03 #### [facility] ([id number]) [address], [address] [place], [place] [address]Vjgizky [Mass/Vol]8.1 mg/dLLow8.5-10.5PCorey Hospital Comment on above:Performed By: #### KHRIS TSHR, 2132-03 #### [facility] ([id number]) [address], [address] [place], [place] [address]Wweluzio [Moles/Vol]102 mmol/FZadvgz25-639AwwOeppli [facility]uz HospitalComment on above:Performed By: #### KHRIS TSHR, 2132-03 #### [facility] ([id number]) [address], [address] [place], [place] [address]MO4 [Moles/Vol]28 mmol/EZxpfqq39-13AnjFlkpkf [facility] Comment on above:Performed By: #### KHRIS TSHBrit, 2132-03 #### [facility] ([id number]) [address] [address] [place], [place] [address]Zuwbohyrxv [Mass/Vol]0.65 mg/dLNormal0.60-1.30Mer[facility] Health Willard HospitalComment on above:Result Comment: METHOD TRACEABLE TO IDMS STANDARD Performed By: #### JAIME PINEDO, 2132-03 #### [facility] ([id number]) [address], [facility] [address] [place], [place] [address]hDDZ (CKD-EPI) NON-RACE DEPENDENT>90Normal>59ProAcmc Healthcare SystemComment on above:Result Comment: Reported eGFR is based on the CKD-EPI 2020 equation that does not use a race coefficient.Performed By: #### JAIME PINEDO, 2132-03 #### [facility] ([id number]) [address], [address] [place], [place] [address]Axfzckp [Mass/Vol]113 mg/gWIcij70-03KymXysehoMercy Health Willard Hospital Comment on above:Performed By: #### JAIME PINEDO, 2132-03 #### [facility] ([id number]) [address] [address] [place], [place] [address]Ivotpioji [Moles/Vol]4.1 mmol/LNormal3.5-5.0Mer[facility] Health Willard HospitalComment on above:Performed By: #### KHRIS TSHR, 2132-03 #### [facility] ([id number]) [address], [address] [place], [place] [address]Dcvioxi [Mass/Vol]6.7 g/dLNormal6.0-8.0[facility] Comment on above:Performed By: #### KHRIS TSHR, 2132-03 #### [facility] ([id number]) [address], [address] [place], [place] [address]Gdqdpm [Moles/Vol]135 mmol/RKrnsai010-160DpuUiznhm [place] HospitalComment on above:Performed By: #### CBC, TSHR, 2132-03 #### [facility] ([id number]) [address] [facility], [address] [place], [place] [address]Ythn nitrogen [Mass/Vol]11 mg/dLNormal5ProAcmc Healthcare SystemComment on above:Performed By: #### CBC, TSHR, 2132-03 #### [facility] ([id number]) [address] [place] [address], [address] [place], [place] [address]Cpwpjtmpfy 67-90-1764TcwmtyyoAkjhkhSntLjvfiz [facility] Comment on above:Result Comment: [facility] [address] [place] [address] Cytology Consultation Patient Name:PENNY ORDAZ:1960 (Age: 63)Gender:MTaken:09/10/2024Reported:09/13/2024 14:09Physician(s):Wendi Lai M.D. ([phone])Copy To:Gianluca Mahan [facility] Centeression #:[id number]. Rec. 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 Comparison of this result to serum or plasma is recommended.Performed By: #### CBC, TSHR, 2132-03 #### [facility] ([id number]) [address], [address] [place], [place] [address]QVWFC CULTUREon 67-79-2000Iwoyrevd identified Aer cx Nom (Body fld)GRAM STAIN WHITE BLOOD CELLS PRESENT NO ORGANISMS SEEN ON CONCENTRATED SMEAR CULTURE RESULTS NO GROWTH 5 DAYSNormalMercy Health Willard HospitalComment on above:Performed By: #### CBC, TSHR, 2132-03 #### [facility] ([id number]) [address], [address] [place], [place] [address]JTHFV LDHon 88-88-0725LADBM RTM689 U/LNormalProMedica Quebradillas HospitalComment on above:Result Comment: The reference interval and other method performance specifications are unavailable for this body fluid. Comparison of this result to serum or plasma is recommended.Performed By: #### CBC, TSHR, 2132-03 #### [facility] ([id number]) [address], [address] [place], [place] [address]SS SPECIMEN TYPEFLUIDNormalProAcmc Healthcare SystemComment on above:Result Comment: PLEURAL FLUID RIGHTPerformed By: #### CBC, TSHR, 2132-03 #### [facility] ([id number]) [address], [address] [place], [place] [address]QZZGO T. PROTEINon 48-31-6870TEJIN TOT. PROTEIN2.1 g/dLNormMemorial Health System Marietta Memorial HospitalComment on above:Result Comment: The reference interval and other method performance specifications are unavailable for this body fluid. Comparison of this result to serum or plasma is recommended.Performed By: #### CBC, TSHR, 2132-03 #### [facility] ([id number]) [address], [address] [place] [address]AB SPECIMEN TYPEFLUIDProMedica Bay Park HospitalComment on above:Result Comment: PLEURAL FLUID RIGHTPerformed By: #### CBC, TSHR, 2132-03 #### [facility] ([id number]) [address], [address] [place] [address]ZHNLA TRIGLYCERIDEon 79-19-1670OHAXY NLCPSHROAMVO27 mg/dLNoJoint Township District Memorial HospitalComment on above:Result Comment: The reference interval and other method performance specifications are unavailable for this body fluid. Comparison of this result to serum or plasma is recommended.Performed By: #### CBCA, PINR, BMP, 69025-7, 2284-8, 29094-5, LIVR #### [facility] ([id number]) [address], [address] [place] [address]QTNP SPECIMEN TYPEFLUParkview HealthComment on above:Result Comment: PLEURAL FLUID RIGHTPerformed By: #### CBCA, PINR, BMP, 30877-2, 2284-8, 86505-2, LIVR #### [facility] ([id number]) [address], [address] [place] [address]Rlip cytometry specialist review Jian (Unsp spec) [Interp]on 06-01-5014FFWU CYTOMETRY BMSEE SEPARATE [facility] Comment on above:Result Comment: REVIEWED BY Tito ALONZO M.D.Performed By: #### CBCA, PINR, BMP, 29946-6, 2284-8, 61939-7, LIVR #### [facility] ([id number]) [address] [facility] [place], [place] [address]Jnxmftx Glucometer (BldC) [Mass/Vol]on 59-75-9939Zurzmfz [Mass/Vol]97 mg/vQXkqvan01-13NoeXgxpxv [place] HospitalGlucose [Mass/Vol]99 mg/dL Fohapp80-25NboEpzbebAcmc Healthcare SystemGlucose [Mass/Vol]155 mg/jLUhwf12-31 ProMedicCoshocton Regional Medical CenterKaryotype Nom (BM)on 03-37-7915JXWYNSYAMT BONE MARROW SEE COMMENTS 09/20/2024 10:41 AMNormalProAcmc Healthcare SystemComment on above: Result Comment: NOTE Test Result Flag Unit RefValue Chromosomes, Hematologic, BM Result Summary See Interpretation Interpretation See Note Of 20 metaphases, four 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 As the sole cytogenetic abnormality in the absence of morphological criteria, trisomy 8 is not considered definitive evidence of MDS (Martinezlow et al., WHO Classification of Tumours of [...] of the testing process was performed at [facility] site 720023, 413307, 864445. Released By Angie Vuong D.O. Test Performed by: [facility] - [address] [address] Analysis Tester: Alexandre Crain Ph.D.; CLIA# [id number] By: #### CBCA, PINR, BMP, 71878-9, 4-8, 93343-6, LIVR #### [facility] ([id number]) [address] [facility] [address] [place], [place] [address]YSC [Catalytic activity/Vol]on 94-31-8946OXI281 U/XNgnk572-386 [facility] South CampusComment on above:Performed By: #### CBC, TSHR, 2132-03 #### [facility] ([id number]) [address] [facility] [address] [place], [place] [address]Ijmubxkbfb comment Jian (Report)on 02-56-6060CUHZBMRP LAB TEST Sent to reference labNormalProKettering Memorial Hospitalca [facility] CampusComment on above:Performed By: #### CBCA, PINR, BMP, 93582-9, 2283-8, 59849-6, LIVR #### [facility] ([id number]) [address] [facility] [address] [place], [place] [address]MJLAYJHQVDen 24-73-4784Ksjyboyfu [Mass/Vol]3.1 mg/dLNormal 2.4-4.9ProKettering Memorial Hospitalca [facility] CampusComment on above:Performed By: #### CBC, TSHR, 2132-03 #### [facility] ([id number]) [address], [address] [place], [place] [address]RMRTUKF AND INRon 42-52-2426DFY Coag (PPP) [Relative time]1.4 {INR}High0.8-1.1PCorey HospitalComment on above:Performed By: #### CBC, TSHR, 2132-03 #### [facility] ([id number]) [address] [place] [address], [address] [place], [place] [address]RU Coag (PPP) [Time]16.3 sHigh9.8-13.2PCorey Hospital Comment on above:Performed By: #### CBC, TSHR, 2132-03 #### [facility] ([id number]) [address] [place] [address], [address] [place], [place] [address]Hfksaxfphhblm IA [Mass/Vol]on 52-26-2604IDUHPZTCAFROX9.10 ng/mL High<0.05ProAcmc Healthcare SystemComment on above:Result Comment: NOTE <0.50 ng/mL - Low risk of severe sepsis and/or septic shock. <2.00 ng/mL - Recommend retesting within 6-24 hours. >2.00 ng/mL - High risk of sepsis and/or septic shock.Performed By: #### CBC, TSHR, 2132-03 #### [facility] ([id number]) [address] [facility], [address] [place], [place] [address]Xsocdckn Pathologyon 96-29-1501Zkkrjfxs PathologyNormalProAcmc Healthcare SystemComment on above:Result Comment: [facility] [address] [place] [address] Bone Marrow Consultation Patient Name:PENNY ORDAZ:1960 (Age: 63)Gender:MTaken:09/10/2024Reported:09/15/2024Physician(s):Yeny Tyson ([phone])Copy To:Fredrick Sousa, [facility] Centeression #:[id number]. Rec. 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 No increased CD34 plus/CD117+ blasts are noted. The marrow aspir ate is a partial dry tap. The CBC and smear review reveals normal leukocyte count with 3% blasts and minimal left shift, and marked normocytic anemia with marked anisocytosis, mild teardrop forms andno circulating nRBCs. 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 There is no evidence of lymphoma. Report Electronically Signed Out watkins/09/15/2024Arcenio Alonzo MD Flow Cytometry-Surg/BM/NG Date Reported: 09/15/2024 The right up with 5% myeloblasts Flow cytometric analysis of the marrow aspirate cells demonstrates maturing hematopoietic elements.Blasts are slightly increased (5%) on CD45/side scatter analysis or CD34 staining. No aberrant patterns of antigen acquisition are identified on maturing myeloid cells. [place] on the lymphoid population demonstrates a mixed population of phenotypically unremarkable T-cells, polyclonal B-cells, and natural killer cells, without a detectable monoclonal population. No significant plasma cell population is identified. Immunophenotyping antibodies tested: CD2, CD3, CD4, CD5, CD7, CD8, CD10, CD13, CD16, CD19, CD20, CD23, CD33, CD34, CD38, CD43, CD45, CD56, CD117, CD123, CD138, TRCB1, Point Clear, and Lambda. Immunophenotyping Comment: Immunophenotyping has been used in this diagnostic evaluation. This test was developed and its performance characteristics determined by the [facility] Department. It has not been [...] Out Arcenio Alonzo MD Interpretation performed at [email or web address], [address] [place] [address], License number: [id number]. Clinical History Concern for lymphoma, CT abdomen pelvis with bulky retroperitoneal, right iliac, inguinal lymphadenopathy with splenomegaly. Gross Description 1. Received in B+, labeled ORDAZ, right iliac crest BM clot , is a 1.9 x 0.7 x 0.1 cm aggregateof dark red-brown, clotted hemorrhagic material. The specimen is submitted entirely in a single cassette. (1,ns,I74-4031-0, m5)MW 2. Received in B+, labeled ORDAZ, right iliac crest BMBX , is a cylindrical bone core biopsy, 0.8 in length x 0.3 cm in diameter. The specimen is submitted entirely in a single cassette, following brief decalcification in Rapid-Elfego Immuno. (1,ns,K03-8771-4, m5)MW mxw/09/10/2024SAN Microscopic Findings Clinical History: Retroperitoneal [...] 0.0 Basophils (0-4%) 2. (more content not included)...URIC ACIDon 13-19-4719Cfvgq [Mass/Vol] 6.1 mg/dLNormal2.6-7.2PCorey HospitalComment on above:Performed By: #### KHRIS, TSHR, 2132-03 #### [facility] ([id number]) [address], [address] [place], [place] [address]UFPDU METABOLIC PANLon 87-87-3715Hspuf gap [Moles/Vol]3 mmol/L Low5-15ProAcmc Healthcare SystemComment on above:Performed By: #### KHRIS TSHR, 2132-03 #### [facility] ([id number]) [address], [address] [place], [place] [address]Vmzutwm [Mass/Vol]8.2 mg/dLLow8.5-10.5PCorey Hospital Comment on above:Performed By: #### KHRIS TSHR, 2132-03 #### [facility] ([id number]) [address], [address] [place], [place] [address]Qpsbfxvz [Moles/Vol]104 mmol/ZYznuau17-959NevUbpayh [place] HospitalComment on above:Performed By: #### JAIME PINEDO, 2132-03 #### [facility] ([id number]) [address], [address] [place], [place] [address]YA8 [Moles/Vol]28 mmol/ZCsvdax02-25HgxZgtfzbCorey Hospital Comment on above:Performed By: #### JAIME PINEDO, 2132-03 #### [facility] ([id number]) [address], [address] [place], [place] [address]Jsfdqbmzpo [Mass/Vol]0.63 mg/dLNormal0.60-1.30[facility] Willard HospitalComment on above:Result Comment: METHOD TRACEABLE TO IDMS STANDARD Performed By: #### JAIME PINEDO, 2132-03 #### [facility] ([id number]) [address], [address] [place], [place] [address]vDVA (CKD-EPI) NON-RACE DEPENDENT>90Normal>59ProAcmc Healthcare SystemComment on above:Result Comment: Reported eGFR is based on the CKD-EPI 2020 equation that does not use a race coefficient.Performed By: #### JAIME PINEDO, 2132-03 #### [facility] ([id number]) [address], [address] [place], [place] [address]Yajwzwu [Mass/Vol]112 mg/uZAmww26-62WqkOkkboeMercy Health Willard Hospital Comment on above:Performed By: #### JAIME PINEDO, 2132-03 #### [facility] ([id number]) [address] [address] [place], [place] [address]Qkloorcpz [Moles/Vol]4.2 mmol/LNormal3.5-5.0ProAcmc Healthcare SystemComment on above:Performed By: #### JAIME PINEDO, 2132-03 #### [facility] ([id number]) [address], [address] [place], [place] [address]Uitekx [Moles/Vol]135 mmol/DQgygwq443-781SlsZmesbz [facility] HospitalComment on above:Performed By: #### CBCJAIME, 2132-03 #### [facility] ([id number]) [address] [address] [place], [place] [address]Lsff nitrogen [Mass/Vol]12 mg/dLNormal5-27Pro[facility] HospitalComment on above:Performed By: #### JAIME PINEDO, 2132-03 #### [facility] ([id number]) [address], [facility] [address] [place], [place] [address]TZB AND AUTO DIFFon 32-11-0558HEVAIGYY BASOPHIL0.1 X10E9/LNormal 0.0-0.2Pro[facility] HospitalComment on above:Performed By: #### JAIME PINEDO, 2132-03 #### [facility] ([id number]) [address], [facility] [address] [place], [place] [address]Bvse form neutrophils/100 WBC (Bld)5.8 %NormalProKettering Memorial Hospitalca [place] HospitalComment on above:Performed By: #### JAIME PINEDO, 2132-03 #### [facility] ([id number]) [address], [address] [address]Pvrvrsnof/100 WBC (Bld)1.0 %NormalProKettering Memorial Hospitalca [facility] Comment on above:Performed By: #### JAIME PINEDO, 2132-03 #### [facility] ([id number]) [address], [facility] [address] [place], [place] [address]Ztclspcpqtn distribution width (RBC) [Ratio]20.4 %High11.5-15.0 [facility] HospitalComment on above:Performed By: #### JAIME PINEDO, 2132-03 #### [facility] ([id number]) [address], [facility] [address] [place], [place] [address]Awcpubxwgj (Bld) [Volume fraction]22.1 %Jfh82-62ReoHlnzlm [facility] HospitalComment on above:Performed By: #### CBC, TSHR, 2132-03 #### [facility] ([id number]) [address], [address] [place], [place] [address]Frgpitmtkw (Bld) [Mass/Vol]7.2 g/dLLow13.0-17.0ProKettering Memorial Hospitalca [place] HospitalComment on above:Performed By: #### CBC, TSHR, 2132-03 #### [facility] ([id number]) [address], [address] [place], [place] [address]Tzcxhxjmfxl (Bld) [#/Vol]0.4 10*3/uLLow1.0-3.5ProMedica [facility] HospitalComment on above:Performed By: #### CBC, TSHR, 2132-03 #### [facility] ([id number]) [address], [address] [place], [place] [address]Rxirmqnwzkp/100 WBC (Bld)6.7 %NormalProSelect Medical Special[facility] Comment on above:Performed By: #### CBC, TSHR, 2132-03 #### [facility] ([id number]) [address], [address] [place], [place] [address]CDQ (RBC) [Entitic mass]30.2 mmYhtomv85-17RqfNntvtw [facility] HospitalComment on above:Performed By: #### CBC, TSHR, 2132-03 #### [facility] ([id number]) [address], [address] [place], [place] [address]HOIC (RBC) [Mass/Vol]32.5 g/pHTptkew65-70OtqExivna [facility] HospitalComment on above:Performed By: #### CBC, TSHR, 2132-03 #### [facility] ([id number]) [address], [address] [place], [place] [address]RZV (RBC) [Entitic vol]93 iCHycafm84-443NbsPubzmk [facility] HospitalComment on above:Performed By: #### CBC, TSHR, 2132-03 #### [facility] ([id number]) [address], [address] [place], [place] [address]Wemcvsszg (Bld) [#/Vol]0.1 10*3/uLNormal0-0.9[facility] HospitalComment on above:Performed By: #### CBC, TSHR, 2132-03 #### [facility] ([id number]) [address], [address] [place], [place] [address]Lvgabusly/100 WBC (Bld)1.0 %NormalProMedica Arauz Hospital Comment on above:Performed By: #### CBC, TSHR, 2132-03 #### [facility] ([id number]) [address], [address] [place], [place] [address]BCVGDJGQU6.0 %NormalProMedica Arauz HospitalComment on above: Performed By: #### CBC, TSHR, 2132-03 #### [facility] ([id number]) [address], [address] [place], [place] [address]Lfjiebkfedu (Bld) [#/Vol]5.9 10*3/uLNormal1.5-6.6[facility] HospitalComment on above:Performed By: #### CBC, TSHR, 2132-03 #### [facility] ([id number]) [address], [address] [place], [place] [address]HZNMTRMCE3+AbnormalNONEProMedica Arauz HospitalComment on above:Performed By: #### CBC, TSHR, 2132-03 #### [facility] ([id number]) [address], [address] [place], [place] [address]Khioaqew mean volume (Bld) [Entitic vol]7.7 fLNormal7-12 [facility] HospitalComment on above:Performed By: #### CBC, TSHR, 2132-03 #### [facility] ([id number]) [address], [address] [place], [place] [address]Rsnldobqt (Bld) [#/Vol]236 10*3/nXMkhhbw360-926VkbIojndb [place] HospitalComment on above:Performed By: #### CBC, TSHR, 2132-03 #### [facility] ([id number]) [address], [address] [place], [place] [address]EIE COUNT2.38 X10E12/LLow4.10-5.70[facility] Comment on above:Performed By: #### CBC, TSHR, 2132-03 #### [facility] ([id number]) [address], [address] [place] [address]MRY TQTQBTOEPH28.5 %NormalProKettering Memorial Hospitalca [place] HospitalComment on above:Performed By: #### CBC, TSHR, 2132-03 #### [facility] ([id number]) [address], [address] [place] [address]ACJUJ GRANULATION1+AbnormalNONEProMedica [place]illas HospitalComment on above:Performed By: #### CBC, TSHR, 2132-03 #### [facility] ([id number]) [address], [address] [place] [address]DHR (Bld) [#/Vol]6.5 10*3/uLNormal4.0-11.0ProKettering Memorial Hospitalca [place] HospitalComment on above:Performed By: #### CBC, TSHR, 2132-03 #### [facility] ([id number]) [address], [address] [place] [address]YQ CHEST W CONTon 34-11-6705MW CHEST W CONTCT CHEST W CONT Study: Contrast-enhanced CT of the chest dated 09/08/2024 2:38 PM. Indication: Lymphadenopathy. Comparison: None . Technique: After the injection of intravenous nonionic iodinated contrast, axial CT of the chest was performed from the lung apices to the hemidiaphragms. 2-D reformats were obtained. All CT scans [facility]nort[facility] use dose modulation, iterative reconstruction, and/or weight based dosing when appropriate to reduce radiation dose to as low as reasonably achievable. Findings: The central airways are patent. Small right pleural effusion with adjacent subsegmental atelectaticchange however a component of infiltrate is difficult to exclude. Minimal right upper lobe mediallylocated groundglass opacities. Right middle lobe calcified granuloma. Right basilar presumed calcified granuloma. Left upper lobe interlobular septal thickening. Left basilar subsegmental atelectaticchange suspected. No pneumothorax. Cranially located left lower lobe calcified granuloma versus less likely a pleural plaque. Enlarged main pulmonary artery measuring up to 3.4 cm. The heart appears prominent in size. No pericardial effusion. No thoracic aortic aneurysm. Atheromatous calcifications the coronary arteries. Mediastinal lymphadenopathy is noted measuring up to 1.8 cm in the aortopulmonary window. There are pro minent left axillary lymph nodes. Please see CT [...] by Micheal Harmon MD on 09/09/2024 9:05 AMNormalProMedica [facility] CampusHBV core Ab [facility] 19-45-1666NXLJ HBcNon-ReactiveNormalNRCTProKettering Memorial Hospitalca [facility] CampusComment on above:Result Comment: NEW TEST METHODPerformed By: #### CBC, TSHR, 2132-9 #### [facility] ([id number]) [address], [address] [place], [place] [address]IQB surface Ab IA Qnon 82-96-9117Dfag HBs quant.>500.00Normal [facility] HospitalComment on above:Result Comment: NOTE Vaccinated: >=10.00 mIU/mL, Positive (Immune) Unvaccinated: <10.00 mIU/mL, Negative (Not Immune) Interpretive values have changed due to implementation of a new method. Values run higher than previous method.Performed By: #### CBC, TSHR, 2132-03 #### [facility] ([id number]) [address], [address] [place], [place] [address]SCW surface Ag IA Qlon 25-71-2207WPOTSHCCC B SURF AGNon-Reactive NormalNRCTProKettering Memorial Hospitalca [facility] CampusComment on above:Result Comment: NEW TEST METHODPerformed By: #### CBC, TSHR, 2132-03 #### [facility] ([id number]) [address], [address] [place], [place] [address]LTYLNQBWPgb 10-42-7195Mfkhaoczr [Mass/Vol]2.0 mg/dLNormal1.8-2.6 [facility] HospitalComment on above:Performed By: #### CBC, TSHR, 2132-03 #### [facility] ([id number]) [address], [address] [place], [place] [address]JM BRAIN W WO CONTon 01-43-2676QV BRAIN W WO CONTMR BRAIN W WO CONT STUDY: MR BRAIN [...] Finalized by David Stuart on 09/09/2024 2:26 PMNormalProSelect Medical Specialty Hospital - Youngstown HospitalPROTIME AND INRon 25-42-3967ISX Coag (PPP) [Relative time]1.4 {INR}High 0.8-1.1PToledo Hospital HospitalComment on above:Performed By: #### CBC, TSHR, 2132-03 #### [facility] ([id number]) [address], [address] [place], [place] [address]II Coag (PPP) [Time]16.6 sHigh9.8-13.2PCorey Hospital Comment on above:Performed By: #### CBC, TSHR, 2132-03 #### [facility] ([id number]) [address], [address] [place], [place] [address]Iadqjgdtnlt Ql (U)on 92-01-2640ME9 ANTIBODY<0.2Normal<1.0 [facility]icCos[facility] Regional Medical CenterComment on above:Performed By: #### CBC, TSHR, 2132-03 #### [facility] ([id number]) [address], [address] [place], [place] [address]TAHHX METABOLIC PANLon 29-71-4838Qawfq gap [Moles/Vol]8 mmol/L Normal5-15ProAcmc Healthcare SystemComment on above:Performed By: #### CBCA, PINR, BMP, 59607-9, 2284-8, 59971-0, LIVR #### [facility] ([id number]) [address], [address] [place], [place] [address]Aivfnfu [Mass/Vol]8.6 mg/dLNormal8.5-10.5PCorey HospitalComment on above:Performed By: #### CBCA, PINR, BMP, 17734-3, 2284-8, 10429-4, LIVR #### [facility] ([id number]) [address], [address] [place], [place] [address]Ypqsneej [Moles/Vol]104 mmol/YNmztxy21-129XuuWpgegi [place] HospitalComment on above:Performed By: #### CBCA, PINR, BMP, 09897-9, 2284-8, 81618-2, LIVR #### [facility] ([id number]) [address], [address] [place], [place] [address]DC8 [Moles/Vol]23 mmol/YHxdgfm50-62HxqRltsqvCorey Hospital Comment on above:Performed By: #### CBCA, PINR, BMP, 28897-4, 2284-8, 09101-5, LIVR #### [facility] ([id number]) [address], [address] [place], [place] [address]Qjgrzlhcdc [Mass/Vol]0.67 mg/dLNormal0.60-1.30ProAcmc Healthcare SystemComment on above:Result Comment: METHOD TRACEABLE TO IDMS STANDARD Performed By: #### CBCA, PINR, BMP, 31502-9, 2284-8, 90849-6, LIVR #### [facility] ([id number]) [address], [address] [place], [place] [address]rSVW (CKD-EPI) NON-RACE DEPENDENT>90Normal>59ProAcmc Healthcare SystemComment on above:Result Comment: Reported eGFR is based on the CKD-EPI 2020 equation that does not use a race coefficient.Performed By: #### CBCA, PINR, BMP, 56924-5, 2284-8, 19092-2, LIVR #### [facility] ([id number]) [address], [address] [place], [place] [address]Icqkcdr [Mass/Vol]86 mg/cZXsqptu47-14YmwSjxvmhMercy Health Willard Hospital Comment on above:Performed By: #### CBCA, PINR, BMP, 01076-9, 2284-8, 34578-1, LIVR #### [facility] ([id number]) [address], [address] [place], [place] [address]Smxhoplbb [Moles/Vol]4.4 mmol/LNormal3.5-5.0[facility] [place] HospitalComment on above:Performed By: #### CBCA, PINR, BMP, 51416-6, 2283-8, 45983-6, LIVR #### [facility] ([id number]) [address], [address] [place], [place] [address]Qvoncx [Moles/Vol]135 mmol/BUlmblo082-759LnrZgwebz [place] HospitalComment on above:Performed By: #### CBCA, PINR, BMP, 07158-0, 2283-8, 77993-9, LIVR #### [facility] ([id number]) [address], [address] [place], [place] [address]Gxjc nitrogen [Mass/Vol]13 mg/dLNormal5-27[facility] HospitalComment on above:Performed By: #### CBCA, PINR, BMP, 49734-5, 2283-8, 84045-5, LIVR #### [facility] ([id number]) [address], [address] [place], [place] [address]AFC AND AUTO DIFFon 80-67-4485HQYFAVQP BASOPHIL0.1 X10E9/LNormal 0.0-0.2[facility] HospitalComment on above:Performed By: #### CBCA, PINR, BMP, 07120-2, 2283-8, 20012-0, LIVR #### [facility] ([id number]) [address], [address] [place], [place] [address]AGPVGFIY NEUTROPHIL6.0 X10E9/LNormal1.5-6.6[facility] HospitalComment on above:Performed By: #### CBCA, PINR, BMP, 23085-2, 2284-8, 59958-6, LIVR #### [facility] ([id number]) [address], [address] [place], [place] [address]Svubefdfy/100 WBC (Bld)1.2 %NormalMercy Health Willard Hospital Comment on above:Performed By: #### CBCA, PINR, BMP, 79472-0, 2284-8, 86305-3, LIVR #### [facility] ([id number]) [address], [address] [place], [place] [address]Uwcggefdvlx (Bld) [#/Vol]0.0 10*3/uLNormal0.0-0.4[facility] HospitalComment on above:Performed By: #### CBCA, PINR, BMP, 81624-2, 2284-8, 05716-3, LIVR #### [facility] ([id number]) [address], [address] [place], [place] [address]Dnjlccoynrn/100 WBC (Bld)0.1 %NormalMercy Health Willard Hospital Comment on above:Performed By: #### CBCA, PINR, BMP, 14343-3, 2284-8, 30365-5, LIVR #### [facility] ([id number]) [address], [address] [place], [place] [address]Npnwbrzxzzb distribution width (RBC) [Ratio]21.0 %High11.5-15.0 [facility] HospitalComment on above:Performed By: #### CBCA, PINR, BMP, 70494-9, 2284-8, 43850-3, LIVR #### [facility] ([id number]) [address], [address] [place], [place] [address]JQENYAKT1+AbnormalNONEProMedica [facility]adillas HospitalComment on above: Performed By: #### CBCA, PINR, BMP, 98243-1, 2284-8, 05752-6, LIVR #### [facility] ([id number]) [address], [address] [place], [place] [address]Ycnfulkbdj (Bld) [Volume fraction]21.7 %Vqy42-90YscZojumg [facility] HospitalComment on above:Performed By: #### CBCA, PINR, BMP, 09766-5, 2284-8, 11252-3, LIVR #### [facility] ([id number]) [address], [address] [place], [place] [address]Wgramhgciw (Bld) [Mass/Vol]7.4 g/dLLow13.0-17.0ProSelect Medical Specialty Hospital [facility] HospitalComment on above:Performed By: #### CBCA, PINR, BMP, 49894-8, 2284-8, 72016-7, LIVR #### [facility] ([id number]) [address], [address] [place], [place] [address]Apoiahvqioc (Bld) [#/Vol]0.6 10*3/uLLow1.0-3.5[facility] HospitalComment on above:Performed By: #### CBCA, PINR, BMP, 27612-9, 2284-8, 33026-8, LIVR #### [facility] ([id number]) [address], [address] [place], [place] [address]Hyaqiftekym/100 WBC (Bld)8.2 %NormalProSelect Medical Specialty [facility] Hospital Comment on above:Performed By: #### CBCA, PINR, BMP, 70240-8, 2284-8, 57679-2, LIVR #### [facility] ([id number]) [address], [address] [place], [place] [address]IUU (RBC) [Entitic mass]31.4 deRfecss22-97GouXahife [place] HospitalComment on above:Performed By: #### CBCA, PINR, BMP, 45322-5, 2284-8, 86484-3, LIVR #### [facility] ([id number]) [address], [address] [place], [place] [address]CBIA (RBC) [Mass/Vol]34.1 g/hFUvoggp71-89FmdLibtuc [place] HospitalComment on above:Performed By: #### CBCA, PINR, BMP, 43735-6, 2284-8, 21796-9, LIVR #### [facility] ([id number]) [address], [address] [place], [place] [address]KRZ (RBC) [Entitic vol]92 mIOkfzhb04-325KgmPiqysa [place] HospitalComment on above:Performed By: #### CBCA, PINR, BMP, 69699-2, 2284-8, 52716-4, LIVR #### [facility] ([id number]) [address], [address] [place], [place] [address]Bnagvylic (Bld) [#/Vol]0.4 10*3/uLNormal0-0.9ProKettering Memorial Hospitalca [place] HospitalComment on above:Performed By: #### CBCA, PINR, BMP, 09160-4, 2284-8, 14021-1, LIVR #### [facility] ([id number]) [address], [address] [place], [place] [address]Vxtvwyxtc/100 WBC (Bld)5.7 %NormalMercy Health Willard Hospital Comment on above:Performed By: #### CBCA, PINR, BMP, 38387-5, 2284-8, 59288-2, LIVR #### [facility] ([id number]) [address], [address] [place], [place] [address]Zjzzzaxujvk/100 WBC (Bld)84.8 %NormalMercy Health Willard Hospital Comment on above:Performed By: #### CBCA, PINR, BMP, 26028-6, 2284-8, 24483-7, LIVR #### [facility] ([id number]) [address], [address] [place] [address]VODTOYAFO7+AbnormalNONEProMedica Arauz HospitalComment on above:Performed By: #### CBCA, PINR, BMP, 31792-9, 2284-8, 13060-0, LIVR #### [facility] ([id number]) [address], [address] [place] [address]Yibyhadg mean volume (Bld) [Entitic vol]7.4 fLNormal7-12 [facility] HospitalComment on above:Performed By: #### CBCA, PINR, BMP, 12640-5, 2284-8, 23707-9, LIVR #### [facility] ([id number]) [address], [address] [place] [address]Sewsjgnxe (Bld) [#/Vol]245 10*3/tBXeqcde675-861DsvQisucp [place] HospitalComment on above:Performed By: #### CBCA, PINR, BMP, 85844-4, 2284-8, 83739-4, LIVR #### [facility] ([id number]) [address], [address] [place] [address]AUL COUNT2.36 X10E12/LLow4.10-5.70[facility] [facility] Comment on above:Performed By: #### CBCA, PINR, BMP, 80761-1, 2284-8, 95122-6, LIVR #### [facility] ([id number]) [address], [address] [place] [address]ZEWJGTPE1+AbnormalNONEProMedica [facility] HospitalComment on above: Performed By: #### CBCA, PINR, BMP, 41202-1, 2284-8, 82483-4, LIVR #### [facility] ([id number]) [address], [address] [place], [place] [address]JEF (Bld) [#/Vol]7.1 10*3/uLNormal4.0-11.0[facility] HospitalComment on above:Performed By: #### CBCA, PINR, BMP, 41208-2, 2284-8, 28405-3, LIVR #### [facility] ([id number]) [address] [place] [address], [address] [place], [place] [address]Ylrvuqonx Ab Qlon 76-56-5759OCGBSYJTL AB IGG<0.2Normal<1.0 [facility] HospitalComment on above:Performed By: #### CMP, 66796-7 #### [facility] ([id number]) [address] [place] [address], [address] [place], [place] [address]Ipflfelg Pathologyon 34-79-8087Khlasbxb PathologyNormalProAcmc Healthcare SystemComment on above:Result Comment: [facility] HospitalInfobright [facility] [address] [place] [address] Clinical Pathology Report Patient Name:PENNY [place]DA[place]:1960 (Age: 63)Gender:MTaken:09/08/2024Reported:09/10/2024Physician(s):Yeny Tyson ([phone])Copy To: Rec. 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 Mild hypoalbuminemia. Report Electronically Signed Out df/09/10/2024Asher Glez MD Interpretation performed at [facility] [place] [address], License number: [id number]. Clinical History D64.9, R59.1, R16.1. SERUM PROTEIN ELECTROPHORESIS SAMPLE NO: [id number] ELECTROPHORETIC FRACTION CONCENTRATIONS (g/dL) PATIENT REFERENCE RANGE [...] IgA : 269 IgM : 126 [place] Clear: 4.45 Free Lambda: 2.47 [place] Clear/Lambda ratio: 1.80 Specimen(s) Received 1: Serum Protein Electrophoresis 2: Serum IEP Fee Codes(s): 1; 65673-65 2; 70666-56Imhtgkzq Pathology Blood Smear Reviewon 32-93-2762Ujahxlio Pathology Blood Smear ReviewNoalMercy Health Willard HospitalComment on above:Result Comment: [facility] [address] [place] [address] Clinical Pathology Report Patient Name:PENNY ORDAZ:1960 (Age: 63)Gender:MTaken:09/08/2024Reported:09/12/2024Physician(s):Wendi Lai M.D. ([phone])Copy To: Rec. #:[id number]: #[id number] Final Pathologic Diagnosis PERIPHERAL BLOOD: - Normochromic, [...] Out rxd/09/12/2024Monico Ayala MD Interpretation performed at [facility], [address] [place] [address], License number: [id number]. Clinical History D64.9 BLOOD SMEAR EVALUATION CBC (09/08/2024 0308): WBC = 7.1 X10E9/L; HGB = 7.4 g/dL; HCT = 21.7%; MCV = 92 fL; PLT = 245 X10E9/L Specimen(s) Received Blood Smear Review Fee Codes(s): 1; [address]HTH double strand Ab Qn (S)on 52-37-4986HKESRZ STRANDED DNA<1Normal<5 [facility] HospitalComment on above:Result Comment: Interpretation-------- <5 Negative 5-9 Indeterminate >9 Positive Performed By: #### CMP, 99838-6 #### [facility] ([id number]) [address] [place] [address], [facility] [place], [place] [address]UPLM CYTOMETRYon 46-90-7937ZRHT CYTOMETRYSEE SEPARATE REPORT NormalProMedica Firelands [facility] Medical Center South CampusComment on above:Result Comment: REVIEWED BY Tito ALONZO M.D.Performed By: #### CBCA, PINR, BMP, 47664-0, 2284-8, 82715-8, LIVR #### [facility] ([id number]) [address] [place] [address], [facility] [address] [place], [place] [address]Ocfzwa [Mass/Vol]on 41-77-5828BFPUL ACID9.1 ng/mLNormal>5.8 [facility] HospitalCommymichigan medical center west branch on above:Result Comment: NEW REFERENCE RANGE Performed By: #### CBCA, PINR, BMP, 68354-9, 2284-8, 16328-8, LIVR #### [facility] ([id number]) [address] [place] [address] [address] [place] [address]Gyvtwwqewno Nephelometry [Mass/Vol]on 65-68-4028FYTZZMSDNLT87 mg/aFLzqshq04-293WgzSsnxzp [facility] HospitalComment on above:Performed By: #### PERCY, 75343-4 #### [facility] ([id number]) [address], [address] [place], [place] [address]RCOINSRHGDUUOBSSUVAZZ FOR THERAPY MONITORINGon 45-98-2864YBEI KELSI/LAMBD RATIO1.64Euyh8.26-1.65ProSelect Medical Specialty Hospital [facility] HospitalComment on above: Performed By: #### PERCY, 83170-5 #### [facility] ([id number]) [address], [address] [place], [place] [address]BCBJ KAPPA LT CHAINS4.45 mg/dLHigh0.33-1.94ProSelect Medical Specialty Hospital - [facility] HospitalComment on above:Performed By: #### PERCY, 93777-2 #### [facility] ([id number]) [address], [address] [place], [place] [address]WHMN LAMBDA LT CHAINS2.47 mg/dLNormal0.57-2.63ProAcmc Healthcare SystemComment on above:Performed By: #### PERCY, 53384-9 #### [facility] ([id number]) [address], [address] [place], [place] [address]SkA [Mass/Vol]269 mg/wYKmcyqq38-082NheXqafxi [facility] Comment on above:Performed By: #### PERCY, 80175-1 #### [facility] ([id number]) [address], [address] [place], [place] [address]GeY [Mass/Vol]1236 mg/kQAjtfbz068-4262TfqHvlkdb [facility] Comment on above:Performed By: #### PERCY, 29509-2 #### [facility] ([id number]) [address], [address] [place], [place] [address]XlH [Mass/Vol]126 mg/oYNreifc72-947DpuOexhcn [facility] Comment on above:Performed By: #### PERCY, 10117-9 #### [facility] ([id number]) [address], [address] [place], [place] [address]EXZCXB PROFILE INTERPSEE SEPARATE REPORTNormalProMedica Arauz HospitalComment on above:Performed By: #### PERCY, 66193-9 #### [facility] ([id number]) [address], [address] [place], [place] [address]NKX [Catalytic activity/Vol]on 81-21-8827CZH701 U/ZWkzd792-833 [facility] HospitalComment on above:Performed By: #### PERCY, 62619-5 #### [facility] ([id number]) [address], [address] [place], [place] [address]ODCEU PANELon 52-87-4500Dmptphr [Mass/Vol]3.7 g/dLNormal3.2-5.3 [facility] HospitalComment on above:Performed By: #### PERCY, 40298-3 #### [facility] ([id number]) [address], [address] [place], [place] [address]VZP [Catalytic activity/Vol]87 U/QMgfdvr55-717DvgXmotoi [facility] HospitalComment on above:Performed By: #### PERCY, 71440-2 #### [facility] ([id number]) [address], [address] [place], [place] [address]BQI [Catalytic activity/Vol]6 U/LNormal0-40[facility] HospitalComment on above:Performed By: #### PERCY, 25461-2 #### [facility] ([id number]) [address], [address] [place], [place] [address]HOK [Catalytic activity/Vol]24 U/LNormal0-41[facility] HospitalComment on above:Performed By: #### PERCY, 04745-4 #### [facility] ([id number]) [address], [address] [place], [place] [address]Fyreedpbq [Mass/Vol]1.2 mg/dLNormal0.3-1.2[facility] HospitalComment on above:Performed By: #### PERCY, 35041-6 #### [facility] ([id number]) [address], [address] [place], [place] [address]Iyxfmdfpv.direct [Mass/Vol]0.3 mg/dLNormal0.0-0.4[facility] HospitalComment on above:Performed By: #### PERCY, 40845-4 #### [facility] ([id number]) [address], [address] [place], [place] [address]Lbinohh [Mass/Vol]6.8 g/dLNormal6.0-8.0[facility] Comment on above:Performed By: #### PERCY, 09606-2 #### [facility] ([id number]) [address], [address] [place], [place] [address]MNCAOEBAHsf 71-51-1042Xfghzpzdc [Mass/Vol]1.9 mg/dLNormal1.8-2.6 [facility] HospitalComment on above:Performed By: #### CBCA, PINR, BMP, 68921-3, 2284-8, 97671-7, LIVR #### [facility] ([id number]) [address], [address] [place], [place] [address]Fdoqdynnezp peptide B [Mass/Vol]on 27-80-6463Ilmkpnbhics peptide B (Bld) [Mass/Vol]429 pg/mLHigh<100.0Pro[facility] Arauz HospitalComment on above: Performed By: #### CMP, 76116-3 #### [facility] ([id number]) [address], [address] [place], [place] [address]Awslxif Ab IA Ql (S)on 60-93-4040QGJ Screen w/reflexPositive AbnormalNEGProKettering Memorial Hospitalca [facility] CampusComment on above:Result Comment: Testing performed using multiplex flow immunoassay. Eleven different antigens associated with systemic autoimmune diseases (dsDNA,Sm,Sm/HOME CARE SPECIALIST,HOME CARE SPECIALIST,Chromatin, SSA,SSB,Lena-1,Scl70,Ribo P,Centromere B) are included in this screening test.Performed By: #### CMP, 22989-9 #### [facility] ([id number]) [address], [address] [address]XJBPEOV AND INRon 24-93-0123MHL Coag (PPP) [Relative time]1.5 {INR}High0.8-1.1PCorey HospitalComment on above:Performed By: #### CBCA, PINR, BMP, 70907-5, 2284-8, 69618-7, LIVR #### [facility] ([id number]) [address] [address]WV Coag (PPP) [Time]17.0 sHigh9.8-13.2PCorey Hospital Comment on above:Performed By: #### CBCA, PINR, BMP, 11163-7, 2284-8, 06669-0, LIVR #### [facility] ([id number]) [address] [address]Phhstnbtaju review Pathologist comment (Bld) [Interp]on 72-98-4582SUDKR REVIEWNOTENormalProAcmc Healthcare SystemComment on above:Result Comment: [facility] [address] [place] [address] Clinical Pathology Report Patient Name:PENNY ORDAZ:1960 (Age: 63)Gender:MTaken:09/08/2024Reported:09/12/2024Physician(s):Wendi Lai M.D. ([phone])Copy To: Rec. #:[id number]: #[id number] Final Pathologic Diagnosis PERIPHERAL BLOOD: - Normochromic, [...] Out rxd/09/12/2024Monico Ayala MD Interpretation performed at [facility], [address] [place] [address], License number: [id number]. Clinical History D64.9 BLOOD SMEAR EVALUATION CBC (09/08/2024 0308): WBC = 7.1 X10E9/L; HGB = 7.4 g/dL; HCT = 21.7%; MCV = 92 fL; PLT = 245 X10E9/L Specimen(s) Received Blood Smear Review Fee Codes(s): 1; 266[address]Dshiaxdml By: #### CBCA, PINR, BMP, 04386-8, 2284-8, 92966-0, LIVR #### [facility] ([id number]) [address] [place], [place] [address]Pzlowfevsscpxipat extractable nuclear IgG Qn (S)on 81-18-8740LAH ANTIBODY IGG<0.2Normal<1.0[facility] CampusComment on above:Performed By: #### CBC, TSHR, 2132-03 #### [facility] ([id number]) [address], [address] [place], [place] [address]DIY-01 extractable nuclear Ab Ql (S)on 96-00-1061IUZ 70 ANTIBODY <0.2Normal<1.0ProAcmc Healthcare SystemComment on above:Performed By: #### CBC, TSHR, 2132-03 #### [facility] ([id number]) [address], [address] [place], [place] [address]AGXIO PROTEIN ELECTROPHORESISon 24-61-2603Fxaoyrd [Mass/Vol]3.2 g/dLLow3.4-5.3PCorey HospitalComment on above:Performed By: #### CMP, 84983-5 #### [facility] ([id number]) [address], [address] [place], [place] [address]RDBYD 1 GLOBULIN0.4 g/dLNormal0.1-0.4[facility] Comment on above:Performed By: #### CMP, 70603-9 #### [facility] ([id number]) [address], [address] [place], [place] [address]KWJLI 2 GLOBULIN0.7 g/dLNormal0.4-1.1PCorey Hospital Comment on above:Performed By: #### CMP, 79431-0 #### [facility] ([id number]) [address], [address] [place], [place] [address]LOLS GLOBULIN0.7 g/dLNormal0.5-1.2PCorey Hospital Comment on above:Performed By: #### CMP, 13475-1 #### [facility] ([id number]) [address], [address] [place], [place] [address]AGGOU GLOBULIN1.4 g/dLNormal0.5-1.6Pro[facility] Comment on above:Performed By: #### CMP, 58176-2 #### [facility] ([id number]) [address], [address] [place], [place] [address]FUGX. ELECTROPHORESIS INTERPSEE SEPARATE REPORTNormalProMedica Quebradillas HospitalComment on above:Performed By: #### PERCY, 81354-5 #### [facility] ([id number]) [address], [address] [place], [place] [address]Acnacmb [Mass/Vol]6.3 g/dLNormal6.0-8.0[facility] Comment on above:Performed By: #### PERCY, 37738-5 #### [facility] ([id number]) [address], [address] [place], [place] [address]Jiedxofm syndrome-A extractable nuclear Ab Qn (S)on 09-08-2024 SSA ANTIBODY<0.2Normal<1.0Pro[facility] Quebradillas HospitalComment on above:Performed By: #### KHRIS, TSHR, 2132-03 #### [facility] ([id number]) [address], [address] [place], [place] [address]Zoiubgsc syndrome-B extractable nuclear IgG Qn (S)on 09-08-2024 SSB ANTIBODY4.3 AIHigh<1.0Pro[facility]adillas HospitalComment on above:Performed By: #### CBC, TSHR, 2132-03 #### [facility] ([id number]) [address], [address] [place], [place] [address]Kdghm extractable nuclear Ab+Ribonucleoprotein extractable nuclear IgG Qn (S)on 92-21-9794FOHNW/HOME CARE SPECIALIST AB IGG<0.2Normal<1.0Pro[facility]adillas HospitalComment on above:Performed By: #### CBC, TSHR, 2132-03 #### [facility] ([id number]) [address], [address] [place], [place] [address]Lflgm extractable nuclear IgG Qn (S)on 51-03-3966NXDX-TAVAREZ AB IGG<0.2Normal<1.0ProMedica Arauz HospitalComment on above:Performed By: #### CBC, TSHR, 2-9 #### [facility] ([id number]) [address], [address] [place], [place] [address]Hyatpdjg Pathologyon 15-96-0120Mzzbkzyw PathologyNormalProMedica [facility] South CampusComment on above:Result Comment: [facility] [address] [place], [place] [address] Flow Cytometry Patient Name:PENNY ORDAZAccession #:[id number]. Rec. #:[id number]:[facility] CampusTaken:09/08/2024DOB:1960 (Age: 63)Location:[facility] GEN 6 ACUTE E030Vctdkryd:09/08/2024Gender: MBtyrell. Typ e:ToledoReported:Priority:RBilling #:[id number] Class:[facility] Special Procedure OnlyPhysician(s): Jose Umanzor MD Chang Xia, M.D. Bill Beasley MD Copy To: Specimen(s) Received Blood for Flowcytometry Status: Signed Out Interpretation Normal peripheral blood immunophenotyping study. 3% circulating myeloblasts and no monotypic B-cellpopulation. CBC and flow cytometry results: WBC: 7.0 [...] CD8, CD13, CD16, CD19, CD33, CD34, CD45, CD117,CD123, CD138, Point Clear, and Lambda. Immunophenotyping Comment: Immunophenotyping has been used in this diagnostic evaluation. This test was developed and its performance characteristics determined by the [facility] Department. It has [...] The marrow study reveals primary myelofibrosis (see S25???4244). Electronically Signed Out mls/09/10/2024 Arcenio Alonzo MDTOTAL PROTEINon 26-61-0659Akkecqu [Mass/Vol]6.6 g/dLNormal6.0-8.0[facility] HospitalComment on above:Performed By: #### CMP, 66290-7 #### [facility] ([id number]) [address], [address] [place], [place] [address]EFJ AND AUTO DIFFon 97-51-5898Oizx form neutrophils/100 WBC (Bld)4.0 %NormalSelect Medical Specialty Hospital - ColumbusComment on above:Performed By: #### CMP, CBCA, PINR, 76249-2 #### [facility] ([id number]) [address] [place] [address] #### 4679-7, FEPR, 2276-4 #### [facility] ([id number]) [address] [facility] [place], [place] [address]Sdndjqaegvt distribution width (RBC) [Ratio]24.2 %High11.5-15.0 [facility] Hospital - ColumbusComment on above:Performed By: #### CMP, CBCA, PINR, 33488-0 #### [facility] ([id number]) [address] [place] [address]9999 #### 4679-7, FEPR, 2276-4 #### [facility] ([id number]) [address], [address] [place], [place] [address]Sgtzvbfqnz (Bld) [Volume fraction]16.4 %Yrf30-53LfaRlhirvUt Health North Campus TylerComment on above:Performed By: #### CMP, CBCA, PINR, 16289-5 #### [facility] ([id number]) [address] [place] [address] #### 4679-7, FEPR, 2276-4 #### [facility] ([id number]) [address], [address] [place], [place] [address]Nfywlngwbv (Bld) [Mass/Vol]5.3 g/dLCritically low13.0-17.0 [facility] HospitalComment on above:Performed By: #### CMP, CBCA, PINR, 55074-7 #### [facility] ([id number]) [address] [place] [address] #### 4679-7, FEPR, 6-4 #### [facility] ([id number]) [address], [address] [place], [place] [address]Bihqnoljbyg (Bld) [#/Vol]0.6 10*3/uLLow1.0-3.5ProMedica [facility]ado HospitalComment on above:Performed By: #### CMP, CBCA, PINR, 16982-4 #### [facility] ([id number]) [address] [place] [address] #### 4679-7, FEPR, 2276-4 #### [facility] ([id number]) [address], [address] [place], [place] [address]Qilvugwoeme/100 WBC (Bld)9.0 %NormalProUt Health North Campus Tyler Comment on above:Performed By: #### CMP, CBCA, PINR, 65751-9 #### [facility] ([id number]) [address] [place] [address] 47092 #### 4679-7, FEPR, 2276-4 #### [facility] ([id number]) [address], [address] [place], [place] [address]TSJ (RBC) [Entitic mass]31.3 utVfzgqp54-07PhgKolvwmUt Health North Campus TylerComment on above:Performed By: #### CMP, CBCA, PINR, 94831-4 #### [facility] ([id number]) [address] [place] [address] #### 4679-7, FEPR, 2276-4 #### [facility] ([id number]) [address], [address] [place], [place] [address]INOL (RBC) [Mass/Vol]32.2 g/yPQrmxsq20-50RqyByupesUt Health North Campus TylerComment on above:Performed By: #### CMP, CBCA, PINR, 42582-7 #### [facility] ([id number]) [address] [place] [address] #### 4679-7, FEPR, 2276-4 #### [facility] ([id number]) [address], [address] [place], [place] [address]VDO (RBC) [Entitic vol]97 mOKcpstd00-249YjoXdqglj Fremont HospitalComment on above:Performed By: #### CMP, CBCA, PINR, 10151-3 #### [facility] ([id number]) [address] [place] [address] #### 4679-7, FEPR, 2276-4 #### [facility] ([id number]) [address], [address] [place], [place] [address]Bmwjeghkn (Bld) [#/Vol]0.5 10*3/uLNormal0-0.9[facility] Hospital - ColumbusComment on above:Performed By: #### CMP, CBCA, PINR, 00656-0 #### [facility] ([id number]) [address] [place] [address] #### 4679-7, FEPR, 2276-4 #### [facility] ([id number]) [address] [facility] [facility] [place], [place] [address]Brvbycaar/100 WBC (Bld)7.0 %NormalProUt Health North Campus Tyler Comment on above:Performed By: #### CMP, CBCA, PINR, 35921-3 #### [facility] ([id number]) [address] [place] [address] #### 4679-7, FEPR, 2276-4 #### [facility] ([id number]) [address] [facility] [place], [place] [address]UKCBWGEDP2.0 %NormalProUt Health North Campus TylerComment on above: Performed By: #### CMP, CBCA, PINR, 15842-1 #### [facility] ([id number]) [address] [place] [address] #### 4679-7, FEPR, 2276-4 #### [facility] ([id number]) [address], [address] [place], [place] [address]Plepdhartkw (Bld) [#/Vol]6.0 10*3/uLNormal1.5-6.6ProUt Health [facility] Campus TylerComment on above:Performed By: #### CMP, CBCA, PINR, 69028-7 #### [facility] ([id number]) [address] [place] [address]453 #### 4679-7, FEPR, 2276-4 #### [facility] ([id number]) [address], [address] [place], [place] [address]Pmmvaanb mean volume (Bld) [Entitic vol]9.2 fLNormal7-12 ProMWoodland Memorial HospitalComment on above:Performed By: #### CMP, CBCA, PINR, 85700-9 #### [facility] ([id number]) [address] [place] [address] 51898 #### 4679-7, FEPR, 2276-4 #### [facility] ([id number]) [address], [address] [place], [place] [address]Tfhknopga (Bld) [#/Vol]349 10*3/oUYsvbvu146-361DkoKzimxaSelect Medical Specialty Hospital - ColumbusComment on above:Performed By: #### CMP, CBCA, PINR, 22345-9 #### [facility] ([id number]) [address] [place] [address]187 #### 4679-7, FEPR, 2276-4 #### [facility] ([id number]) [address], [address] [place], [place] [address]TXO COUNT1.69 X10E12/LLow4.10-5.70[facility] Comment on above:Performed By: #### CMP, CBCA, PINR, 29845-9 #### [facility] ([id number]) [address] [place] [address] 17967 #### 4679-7, FEPR, 2276-4 #### [facility] ([id number]) [address], [address] [place], [place] [address]OWJ morphology finding Nom (Bld)REVIEWEDNoUniversity Hospitals Ahuja Medical CenterComment on above:Performed By: #### CMP, CBCA, PINR, 53328-8 #### [facility] ([id number]) [address] [place] [address] 31300 #### 4679-7, FEPR, 2276-4 #### [facility] ([id number]) [address], [address] [place], [place] [address]TFU PHSAFQNEIW24.0 %NormalProUt Health North Campus TylerComment on above:Performed By: #### CMP, CBCA, PINR, 54803-8 #### [facility] ([id number]) [address] [place] [address] 32489 #### 4679-7, FEPR, 2276-4 #### [facility] ([id number]) [address], [address] [place], [place] [address]LPO (Bld) [#/Vol]7.2 10*3/uLNormal4.0-11.0Pro[facility] TylerComment on above:Performed By: #### CMP, CBCA, PINR, 18600-6 #### [facility] ([id number]) [address] [place] [address] 50635 #### 4679-7, FEPR, 6-4 #### [facility] ([id number]) [address], [address] [place], [place] [address]MBKDBHEEODPNG METABOLIC PANELon 73-63-5466Clckotm [Mass/Vol]3.5 g/dLNormal3.2-5.3[facility] HospitalComment on above:Performed By: #### CMP, CBCA, PINR, 53710-0 #### [facility] ([id number]) [address] [place] [address] 16619 #### 4679-7, FEPR, 2276-4 #### [facility] ([id number]) [address], [address] [place], [place] [address]DDT [Catalytic activity/Vol]84 U/XDahgud35-264WxfMowypkUt Health North Campus TylerComment on above:Performed By: #### CMP, CBCA, PINR, 36244-5 #### [facility] ([id number]) [address] [place] [address] 01679 #### 4679-7, FEPR, 2276-4 #### [facility] ([id number]) [address] [facility], [address] [place], [place] [address]MMV [Catalytic activity/Vol]12 U/LNormal0-40ProUt [facility] Campus TylerComment on above:Performed By: #### CMP, CBCA, PINR, 72472-4 #### [facility] ([id number]) [address] [place] [address] 47816 #### 4679-7, FEPR, 2276-4 #### [facility] ([id number]) [facility] [facility], [address] [place], [place] [address]Lznbm gap [Moles/Vol]8 mmol/LNormal5-15Pro[facility] TylerComment on above:Performed By: #### CMP, CBCA, PINR, 62603-8 #### [facility] ([id number]) [address] [place] [address] 67692 #### 4679-7, FEPR, 2276-4 #### [facility] ([id number]) [facility] [facility], [address] [place], [place] [address]MOP [Catalytic activity/Vol]22 U/LNormal0-41Pro[facility] TylerComment on above:Performed By: #### CMP, CBCA, PINR, 19746-6 #### [facility] ([id number]) [address] [place] [address] 15874 #### 4679-7, FEPR, 2276-4 #### [facility] ([id number]) [address], [address] [place], [place] [address]Xwaeewqrt [Mass/Vol]0.9 mg/dLNormal0.3-1.2POhioHealth Southeastern Medical CenterComment on above:Performed By: #### CMP, CBCA, PINR, 66545-2 #### [facility] ([id number]) [address] [place] [address] 10131 #### 4679-7, FEPR, 2276-4 #### [facility] ([id number]) [address], [address] [place], [place] [address]Rjqwmof [Mass/Vol]8.1 mg/dLLow8.5-10.5POhioHealth Southeastern Medical Center Comment on above:Performed By: #### CMP, CBCA, PINR, 47026-2 #### [facility] ([id number]) [address] [place] [address] 24332 #### 4679-7, FEPR, 6-4 #### [facility] ([id number]) [address], [address] [place], [place] [address]Vklshuop [Moles/Vol]104 mmol/BGbzftg65-313YsoLbfexl Sharp Coronado HospitalComment on above:Performed By: #### CMP, CBCA, PINR, 20093-2 #### [facility] ([id number]) [address] [place] [address] 59807 #### 4679-7, FEPR, 6-4 #### [facility] ([id number]) [address], [address] [place], [place] [address]UT0 [Moles/Vol]21 mmol/QWvb46-22FthLqdngfOhioHealth Southeastern Medical Center Comment on above:Performed By: #### CMP, CBCA, PINR, 20444-7 #### [facility] ([id number]) [address] [place] [address] 37949 #### 4679-7, FEPR, 2276-4 #### [facility] ([id number]) [address], [address] [place], [place] [address]Ippnmbtgel [Mass/Vol]0.71 mg/dLNormal0.70-1.20ProUt [facility] TylerComment on above:Result Comment: METHOD TRACEABLE TO IDMS STANDARD Performed By: #### CMP, CBCA, PINR, 22101-8 #### [facility] ([id number]) [address] [place] [address] 51736 #### 4679-7, FEPR, 2276-4 #### [facility] ([id number]) [address], [address] [place], [place] [address]iZDC (CKD-EPI) NON-RACE DEPENDENT>90Normal>59Pro[facility] TylerComment on above:Result Comment: Reported eGFR is based on the CKD-EPI 2020 equation that does not use a race coefficient.Performed By: #### CMP, CBCA, PINR, 15634-3 #### [facility] ([id number]) [address] [place] [address] 28015 #### 4679-7, FEPR, 2276-4 #### [facility] ([id number]) [address], [address] [place], [place] [address]Dszyyfx [Mass/Vol]104 mg/kAZprt26-55EqrAwbeghUt Health North Campus Tyler Comment on above:Performed By: #### CMP, CBCA, PINR, 21520-8 #### [facility] ([id number]) [address] [place] [address] 42521 #### 4679-7, FEPR, 2276-4 #### [facility] ([id number]) [address], [address] [place], [place] [address]Cuftkqqgx [Moles/Vol]4.1 mmol/LNormal3.5-5.0Pro[facility] TylerComment on above:Performed By: #### CMP, CBCA, PINR, 11149-1 #### [facility] ([id number]) [address] [place] [address] 08060 #### 4679-7, FEPR, 2276-4 #### [facility] ([id number]) [address], [address] [place], [place] [address]Jmyiyxe [Mass/Vol]6.9 g/dLNormal6.0-8.0Pro[facility] TylerComment on above:Performed By: #### CMP, CBCA, PINR, 94042-4 #### [facility] ([id number]) [address] [place] [address] 08224 #### 4679-7, FEPR, 2276-4 #### [facility] ([id number]) [address], [address] [place], [place] [address]Tdtltg [Moles/Vol]133 mmol/YBew910-141ZfuXaoeqwSelect Medical Specialty Hospital - [facility] Comment on above:Performed By: #### CMP, CBCA, PINR, 67582-0 #### [facility] ([id number]) [address] [place] [address] 42192 #### 4679-7, FEPR, 2276-4 #### [facility] ([id number]) [address], [address] [place], [place] [address]Gbuw nitrogen [Mass/Vol]12 mg/dLNormal5-27Pro[facility] TylerComment on above:Performed By: #### CMP, CBCA, PINR, 18437-5 #### [facility] ([id number]) [address] [place] [address] 98797 #### 4679-7, FEPR, 2276-4 #### [facility] ([id number]) [address], [address] [place], [place] [address]YQ ABDOMEN AND PELVIS W CONTon 71-87-5684SW ABDOMEN AND PELVIS W CONTCT ABDOMEN AND PELVIS W CONT CLINICAL INFORMATION: [...] nonspecific periportal edema. LYMPH NODES: Multiple enlarged retroperitoneal/periaortic lymph nodes measure up to 1.3 cm [...] by Conor Franklin MD on 09/07/2024 10:11 AMNormalProUt Health North Campus TylerFERRITINon 84-48-1171Zafmaiww [Mass/Vol]292 ng/kGMbcvir51-814PxiRjbcmu [facility]remont HospitalComment on above:Performed By: #### CMP, CBCA, PINR, 67575-4 #### [facility] ([id number]) [address] [place] [address], [place] [address] #### 4679-7, FEPR, 2276-4 #### [facility] ([id number]) [address], [address] [place] [address]SYAAYNJXGWzp 01-24-3873Axkeppbsgd (Bld) [Mass/Vol]6.4 g/dL Critically low13.0-17.0Pro[facility] TylerComment on above:Performed By: #### CMP, CBCA, PINR, 19867-0 #### [facility] ([id number]) [address] [place] [address] 57013 #### 4679-7, FEPR, 2276-4 #### [facility] ([id number]) [address], [address] [place] [address]NBSba 27-78-9733Prkpqbfaxc (Bld) [Volume fraction]21.7 %Fcl59-15 [facility] HospitalComment on above:Performed By: #### CMP, CBCA, PINR, 63104-4 #### [facility] ([id number]) [address] [place] [address] 40003 #### 4679-7, FEPR, 2276-4 #### [facility] ([id number]) [address], [address] [place], [place] [address]Qgccmxcfvj (Bld) [Mass/Vol]7.3 g/dLLow13.0-17.0Pro[facility] TylerComment on above:Performed By: #### CMP, CBCA, PINR, 53077-4 #### [facility] ([id number]) [address] [place] [address] 59606 #### 4679-7, FEPR, 2276-4 #### [facility] ([id number]) [address] [place], [place] [address]Emspaqleep Auto (Bld) [Volume fraction]on 85-96-0051Rbgsngizma (Bld) [Volume fraction]19.2 %Ogs47-01ZfwScdvwtUt Health North Campus TylerComment on above: Performed By: #### 4544-3, 718-7 #### [facility] ([id number]) [address] [place] [address]GFDR PROFILEon 41-65-2149Luwe [Mass/Vol]112 ug/vUIjdbag73-399 [facility] HospitalComment on above:Performed By: #### CMP, CBCA, PINR, 22173-1 #### [facility] ([id number]) [address] [place] [address] 25274 #### 4679-7, FEPR, 2276-4 #### [facility] ([id number]) [address], [address] [place], [place] [address]GFHK GPTZRLU461 ug/bZQiofhm649-039SqzGabzccSelect Medical Specialty Hospital [facility] Comment on above:Performed By: #### CMP, CBCA, PINR, 32317-0 #### [facility] ([id number]) [address] [place] [address] 44782 #### 4679-7, FEPR, 2276-4 #### [facility] ([id number]) [address], [address] [place], [place] [address]RHAR TZXEBUWXVC74 % GUNHHUZHBWSkvdbc00-70CuuFthwvf [facility] HospitalComment on above:Performed By: #### CMP, CBCA, PINR, 03685-7 #### [facility] ([id number]) [address] [place] [address] 17718 #### 4679-7, FEPR, 2276-4 #### [facility] ([id number]) [address], [address] [place], [place] [address]GIAOJMZ AND INRon 49-19-8170TLK Coag (PPP) [Relative time]1.5 {INR}High0.8-1.1Pro[facility] HospitalComment on above:Performed By: #### CMP, CBCA, PINR, 69258-8 #### [facility] ([id number]) [address] [place] [address] #### 4679-7, FEPR, 2276-4 #### [facility] ([id number]) [address], [address] [place], [place] [address]AN Coag (PPP) [Time]17.0 sHigh9.8-13.2POhioHealth Southeastern Medical Center Comment on above:Result Comment: NEW REFERENCE RANGEPerformed By: #### CMP, CBCA, PINR, 32888-3 #### [facility] ([id number]) [address] [place] [address] #### 4679-7, FEPR, 2276-4 #### [facility] ([id number]) [address], [address] [place] [address]Ureztxkgdcqba/100 RBC (Bld)on 58-17-9231BZRJLUPABHWF COUNT2.5 % High0.4-2.2POhioHealth Southeastern Medical CenterComment on above:Performed By: #### CMP, CBCA, PINR, 96381-3 #### [facility] ([id number]) [address] [place] [address] #### 4679-7, FEPR, 2276-4 #### [facility] ([id number]) [address], [address] [place], [place] [address]SP CHEST 1 VWon 11-53-6877UG CHEST 1 VWXR CHEST 1 VW CLINICAL INFORMATION: Cough. TECHNIQUE: [...] by Tamela Escalante MD on 09/07/2024 10:14 AMNormalProKettering Memorial Hospitalca Sharp Coronado HospitalaPTT Coag (PPP) [Time]on 47-23-7200bHWZ Coag (Bld) [Time]33 mZzpngn62-24 ProMWoodland Memorial HospitalComment on above:Result Comment: NEW REFERENCE RANGE Performed By: #### CMP, CBCA, PINR, 63233-2 #### [facility] ([id number]) [address] [place] [address], [place] [address] #### 4679-7, FEPR, 2276-4 #### [facility] ([id number]) [address], [address] [place], [place] [address]GWWZESWL BLOOD COUNTon 06-30-9498Vinvrceigkh distribution width (RBC) [Ratio]24.0 %High11.5-15.0Mer[facility] Willard HospitalComment on above: Performed By: #### CBC, TSHR, 2132-03 #### [facility] ([id number]) [address], [address] [place], [place] [address]Sxzmqmrkdi (Bld) [Volume fraction]17.4 %Miw78-05QdsSadfbgMercy Health Willard HospitalComment on above:Performed By: #### CBC, TSHR, 2132-03 #### [facility] ([id number]) [address], [address] [place], [place] [address]Vcchalqglp (Bld) [Mass/Vol]5.4 g/dLCritically low13.0-17.0 [facility] HospitalComment on above:Performed By: #### CBC, TSHR, 2132-03 #### [facility] ([id number]) [address], [address] [place], [place] [address]LYY (RBC) [Entitic mass]31.2 koBbgvzw91-34OrsGjazvpMercy Health Willard HospitalComment on above:Performed By: #### KHRIS TSHR, 2132-03 #### [facility] ([id number]) [address], [address] [place], [place] [address]ZCSI (RBC) [Mass/Vol]30.9 g/zFPhb55-12TmfObxwqnMercy Health Willard Hospital Comment on above:Performed By: #### KHRIS TSHR, 2132-03 #### [facility] ([id number]) [address], [address] [place], [place] [address]TWD (RBC) [Entitic vol]101 vSNivg59-827BpuGovcjxMercy Health Willard Hospital Comment on above:Performed By: #### KHRIS TSHR, 2132-03 #### [facility] ([id number]) [address], [address] [place], [place] [address]Apecfmmf mean volume (Bld) [Entitic vol]9.9 fLNormal7-12 [facility] HospitalComment on above:Performed By: #### KHRIS TSHR, 2132-03 #### [facility] ([id number]) [address], [address] [place], [place] [address]Vznwbmsns (Bld) [#/Vol]356 10*3/uFRpnfms731-978JxcDhfrzm [place] HospitalComment on above:Performed By: #### KHRIS TSHR, 2132-03 #### [facility] ([id number]) [address], [address] [place], [place] [address]SWS COUNT1.73 X10E12/LLow4.10-5.70[facility] Comment on above:Performed By: #### CBC, TSHR, 2132-03 #### [facility] ([id number]) [address], [address] [place], [place] [address]BQK (Bld) [#/Vol]6.2 10*3/uLNormal4.0-11.0[facility] HospitalComment on above:Performed By: #### KHRIS TSHR, 2132-03 #### [facility] ([id number]) [address], [address] [place], [place] [address]JLO WITH REFLEXon 96-70-5699QGV6.61 uIU/mLNormal0.49-4.67 [facility] HospitalComment on above:Performed By: #### KHRIS, TSHR, 2132-03 #### [facility] ([id number]) [address], [address] [place], [place] [address]EHKWXOZ B12on 49-19-8966Lsdnpupfo (Vitamin B12) [Mass/Vol]547 pg/iZQudafu757-855JekNjemgq Arauz HospitalComment on above:Performed By: #### KHRIS TSHR, 2132-03 #### [facility] ([id number]) [address], [address] [place], [place] [address]UBFKQAFUHPBLT METABOLIC PANELon 14-83-1021Ubmoiza [Mass/Vol]4.3 g/dLNormal3.2-5.3ProMedMercy Health [facility] HospitalComment on above:Performed By: #### PERCY, 52479-0 #### [facility] ([id number]) [address], [address] [place], [place] [address]BUW [Catalytic activity/Vol]81 U/HNzuabj78-078VlmQotxqq [facility] HospitalComment on above:Performed By: #### PERCY, 33274-1 #### [facility] ([id number]) [address], [address] [place], [place] [address]ZSM [Catalytic activity/Vol]15 U/LNormal0-40[facility] HospitalComment on above:Performed By: #### PERCY, 53453-0 #### [facility] ([id number]) [address], [address] [place], [place] [address]Fuyoa gap [Moles/Vol]8 mmol/LNormal5-15[facility] Comment on above:Performed By: #### PERCY, 55144-5 #### [facility] ([id number]) [address], [address] [place], [place] [address]AZW [Catalytic activity/Vol]19 U/LNormal0-41Pro[facility] HospitalComment on above:Performed By: #### PERCY, 59647-3 #### [facility] ([id number]) [address], [address] [place], [place] [address]Ldomrrewx [Mass/Vol]1.1 mg/dLNormal0.3-1.2PToledo Hospital HospitalComment on above:Performed By: #### PERCY, 11233-7 #### [facility] ([id number]) [address], [address] [place], [place] [address]Pbfvszk [Mass/Vol]9.1 mg/dLNormal8.5-10.5PToledo Hospital HospitalComment on above:Performed By: #### PERCY, 43556-4 #### [facility] ([id number]) [address] [place], [place] [address]Otpcboyz [Moles/Vol]100 mmol/ZMakeko40-605WoyBcjewc [place] HospitalComment on above:Performed By: #### PERCY, 09012-7 #### [facility] ([id number]) [address], [address] [place], [place] [address]GT5 [Moles/Vol]26 mmol/BRofdca32-28JhvGtftda [facility] Comment on above:Performed By: #### PERCY, 33625-8 #### [facility] ([id number]) [address], [address] [place], [place] [address]Lxgupfasmh [Mass/Vol]0.66 mg/dLNormal0.60-1.30ProSelect [facility] HospitalComment on above:Result Comment: METHOD TRACEABLE TO IDMS STANDARD Performed By: #### PERCY, 70634-7 #### [facility] ([id number]) [address], [address] [place], [place] [address]kTIP (CKD-EPI) NON-RACE DEPENDENT>90Normal>59ProAcmc Healthcare SystemComment on above:Result Comment: Reported eGFR is based on the CKD-EPI 2020 equation that does not use a race coefficient.Performed By: #### PERCY, 55767-4 #### [facility] ([id number]) [address] [address] [place], [place] [address]Vnnmoze [Mass/Vol]98 mg/bQWvneiu11-51KoiLjilxhMercy Health [facility]ard Hospital Comment on above:Performed By: #### PERCY, 87545-6 #### [facility] ([id number]) [address] [address] [place], [place] [address]Idudglgqp [Moles/Vol]5.0 mmol/LNormal3.5-5.0ProAcmc Healthcare SystemComment on above:Performed By: #### PERCY, 11833-6 #### [facility] ([id number]) [address], [address] [place], [place] [address]Xfoxogz [Mass/Vol]7.6 g/dLNormal6.0-8.0[facility] Comment on above:Performed By: #### PERCY, 22656-7 #### [facility] ([id number]) [address], [address] [place], [place] [address]Yjtptw [Moles/Vol]134 mmol/IWfilpl991-250EfaSknteu [place] HospitalComment on above:Performed By: #### PERCY, 19463-0 #### [facility] ([id number]) [address] [address] [place], [place] [address]Ihrh nitrogen [Mass/Vol]10 mg/dLNormal5-27ProAcmc Healthcare SystemComment on above:Performed By: #### PERCY, 90694-2 #### [facility] ([id number]) [address], [address] [place], [place] [address]Zqnfl 1996 panelon 38-63-9950Gytjocslpou [Mass/Vol]74 mg/dLLow 150-200[facility] HospitalComment on above:Performed By: #### PERCY, 52452-9 #### [facility] ([id number]) [address] [place], [place] [address]Nvfwxtphkhg in HDL [Mass/Vol]18 mg/dLLow>39[facility] HospitalComment on above:Result Comment: HDL <40 mg/dL - High Risk HDL > or = 40mg/dL- Desirable HDL >60 mg/dL - Negative Risk Performed By: #### PERCY, 64550-5 #### [facility] ([id number]) [address] [place], [place] [address]Rmhbustyxhh in LDL [Mass/Vol]43 mg/dLNormal<130Pro[facility] HospitalComment on above:Result Comment: LDL <100 mg/dL - Desirable LDL >160 mg/dL - High Risk Performed By: #### PERCY, 32265-4 #### [facility] ([id number]) [address], [address] [place], [place] [address]Vyzdkesjxni in VLDL [Mass/Vol]13 mg/dLNormal0-30Pro[facility] HospitalComment on above:Performed By: #### PERCY, 58307-7 #### [facility] ([id number]) [address], [address] [place], [place] [address]WHSUPBXFHDZ:HDL4.8Ktrtcu8.0-5.0ProAcmc Healthcare SystemComment on above:Performed By: #### CMP, 88209-8 #### [facility] ([id number]) [address], [address] [place], [place] [address]Apeyzsowxivd [Mass/Vol]64 mg/uBYldglf38-029FhsCzabvb [place] HospitalComment on above:Performed By: #### CMP, 27679-3 #### [facility] ([id number]) [address], [address] [place], [place] [address]EDZ (INCLUDES DIFF/PLT)on 57-70-9752Adbzwmtjv (Bld) [#/Vol]0 10*3/uLNormal0-200Quest DiagnosticsComment on above:Performed By: #### 6399 #### [facility] [place] [address] Hospice Office Coordinator: Horace Vital MDBasophils/100 WBC (Bld)0 %NormalQuest DiagnosticsComment on above:Performed By: #### 6399 #### [facility] [place] [address] Hospice Office Coordinator: Horace Vital MDCOMMENT(S)NormalQuest DiagnosticsComment on above:Result Comment: The smear has been manually reviewed and the manual differential has been reported.Performed By: #### 6399 #### [facility] [place] [address] Hospice Office Coordinator: Horace Vital MDEosinophils (Bld) [#/Vol]0.132 10*3/uLNormal 15-500Quest DiagnosticsComment on above:Performed By: #### 6399 #### [facility] [place] [address] Hospice Office Coordinator: Horace Vital MDEosinophils/100 WBC (Bld)3 %NormalQuest DiagnosticsComment on above:Performed By: #### 6399 #### [facility] of [address], [address] [place] [address] Hospice Office Coordinator: Horace Vital MDErythrocyte distribution width (RBC) [Ratio] 14.6 %Lrlcol78.0-15.0Quest DiagnosticsComment on above:Performed By: #### 6399 #### [facility] of [place] [address] Hospice Office Coordinator: Horace Vital MDHematocrit (Bld) [Volume fraction]40.2 %Normal 38.5-50.0Quest DiagnosticsComment on above:Performed By: #### 6399 #### [facility] of [place] [address] Hospice Office Coordinator: Horace Vital MDHemoglobin (Bld) [Mass/Vol]13.6 g/dLNormal 13.2-17.1Quest DiagnosticsComment on above:Performed By: #### 6399 #### [facility] of [address], [address] [place] [address] Hospice Office Coordinator: Horace Vital MDLymphocytes (Bld) [#/Vol]1.276 10*3/uLNormal 850-3900Quest DiagnosticsComment on above:Performed By: #### 6399 #### [facility] of [place] [address] Hospice Office Coordinator: Horace Vital MDLymphocytes/100 WBC (Bld)29 %NormalQuest DiagnosticsComment on above:Performed By: #### 6399 #### [facility] of [place] [address] Hospice Office Coordinator: Horace Vital MDMCH (RBC) [Entitic mass]32.7 rcSevmst94.0-33.0 Quest DiagnosticsComment on above:Performed By: #### 6399 #### [facility] of [place] [address] Hospice Office Coordinator: Horace Merati MDMCHC (RBC) [Mass/Vol]33.8 g/sRQmkcug81.0-36.0 [facility] DiagnosticsComment on above:Performed By: #### 6399 #### [facility] of [place] [address] Hospice Office Coordinator: Horace Vital MDMCV (RBC) [Entitic vol]96.6 yPUgshgd63.0-100.0 Quest DiagnosticsComment on above:Performed By: #### 6399 #### [facility] of [address], [address] [place] [address] Hospice Office Coordinator: Horace Vital MDMonocytes (Bld) [#/Vol]0.748 10*3/uLNormal 200-950Quest DiagnosticsComment on above:Performed By: #### 6399 #### [facility] of [place] [address] Hospice Office Coordinator: Horace Vital MDMonocytes/100 WBC (Bld)17 %NormalQuest DiagnosticsComment on above:Performed By: #### 6399 #### [facility] of [place] [address] Hospice Office Coordinator: Horace Vital MDNeutrophils (Bld) [#/Vol]2.244 10*3/uLNormal 1500-7800Quest DiagnosticsComment on above:Performed By: #### 6399 #### [facility] of [place] [address] Hospice Office Coordinator: Horace Vital MDNeutrophils/100 WBC (Bld)51 %NormalQuest DiagnosticsComment on above:Performed By: #### 6399 #### [facility] of [place] [address] Hospice Office Coordinator: Horace Vital MDPlatelet mean volume (Bld) [Entitic vol]11.6 fLNormal7.5-12.5Quest DiagnosticsComment on above:Performed By: #### 6399 #### [facility] of [place] [address], [address] [place] [address] Hospice Office Coordinator: Horace YOUNGlatenew [facility] ([facility]) [#/Vol]230 10*3/uLNormal 140-400Quest DiagnosticsComment on above:Performed By: #### 6399 #### [facility] of [place] [address], [address] [place] [address] Hospice Office Coordinator: Horace Vital MDRBC ([facility]) [#/Vol]4.16 10*6/uLLow4.20-5.80Quest DiagnosticsComment on above:Performed By: #### 6399 #### [facility] of [place] [address], [address] [place] [address] Hospice Office Coordinator: Horace Vital MDWBC ([facility]) [#/Vol]4.4 10*3/uLNormal3.8-10.8 Quest DiagnosticsComment on above:Performed By: #### 6399 #### [facility] of [place] [address] [address] [place] [address] Hospice Office Coordinator: Horace TOVAR [facility] 11-44-2517ATGXV FIBULA [facility] HospitalDepartment of Cvp[address] [place] [address] Patien t Name: PENNY ORDAZ Brit : 1960Sex: MAge: Race: WhiteMRN: [id number]. Location: 84Patient Status: Date: 12/14/2017 9:00:00 AMCompleted Date: 12/14/2017 09:01 AMRequesting Provider: GORDILLO, CHRISTOPHER Attending Provider: Report Copy To: Signs & Symptoms: M96.671Fx tib/fib fol insrt ortho implnt/prosth/bone plt, right leg P38Aelymmb: AthenaComments: , , Views (X-RAY, TIBIA AND FIBULA): AP, Lateral , , , Ordering Provider - RASHEEDA GORDILLO , Exam: TIBIA FIBULA RIGHTAccession #: [id number] TIBIA FIBULA RIGHT 12/14/2017 9:01 AM EDT SIGNS AND SYMPTOMS: M96.671 Fx tib/fib fol insrt ortho implnt/prosth/bone plt, right leg I10 TECHNOLOGIST COMMENTS: ortho check righttibia complains of pain in right lower leg surgery 07/14/17 QUESTION FOR THE RADIOLOGIST: , , Views(X-RAY, TIBIA AND FIBULA): AP, Lateral , , , Ordering Provider - RASHEEDA GORDILLO , PROTOCOL: AP(PA) and Lateral views were obtained. COMPARISON: October 19, 2017 FINDINGS: Softtissues:Unchanged Bones:Tibial jil traversing distal midshaft fracture which is healing as well as 2 AP screws fixing posterior tibial malleolar fracture which is also healingProximal fibular fracture shows healing without hardware Joints:Minor arthritis along knee and ankle IMPRESSION: Healing leginjuries in satisfactory alignment but with tibial fracture still conspicuous Electronically signedby:Lauren Clemente. Transcribed by: [email or web address], User Resident: Electronically Signed by: LAUREN CLEMENTE @ 12/14/2017 12:06 City HospitalComment on above:Order Comment: No: Do not add to previous drawANKLE RIGHT 3 VWSon 93-49-0985TFWVX RIGHT 3 SUniBlanchard Valley Health SystemDepartment of Cghe[address] [place] [address] Patien t Name: PENNY ORDAZ : 1960Sex: MAge: Race: WhiteMRN: [id number]. Location: 84Patient Status: Date: 10/19/2017 9:55:00 AMCompleted Date: 10/19/2017 10:07 AMRequesting Provider: RASHEEDA GORDILLO Attending Provider: Report Copy To: Signs & Symptoms: S82.391DOth fx lower end of r tibia, subs for clos fx w routn heal A85Pbzgyhg: AthenaComments: , , Views (X-RAY, ANKLE): AP, Lateral, Mortise , , , Ordering Provider - RASHEEDA GORDILLO , Exam: ANKLE RIGHT 3 VWSAccession #: [id number] ANKLE RIGHT 3 VWS, TIBIA FIBULA RIGHT 10/19/2017 10:07 AM EDT SIGNS AND SYMPTOMS:S82.391D Oth fx lower end of r tibia, subs for clos fx w routn heal I10 TECHNOLOGIST COMMENTS: ortho f/u for right lower leg area QUESTION FOR THE RADIOLOGIST: , , Views (X-RAY, ANKLE): AP, Lateral, Mortise , , , Ordering Provider - RASHEEDA GORDILLO , PROTOCOL: AP,Lateral and Oblique views were obtained. (accession [id number]), AP(PA) and Lateral views were obtained. (accession [id number]) COMPARISON: October 19, 2017 FINDINGS: Soft tissues:Unchanged Bones:Unchanged Joints:Unchanged IMPRESSION: Healing lower leg injury with jil fixing distal midshaft tibial fracture in good alignment and no hardware securing healing proximal fibular fracture Electronically signed by:Lauren Clemente. Transcribed by: [email or web address], User Resident: Electronically Signed by: LAUREN CLEMENTE @ 10/19/201710:33 AMNormalMemorial Health System Selby General HospitalComment on above:Order Comment: No: Do not add to previous drawTIBIA FIBULA RIGHTon 72-66-4309UOYOE FIBULA RIGHTKettering Health Main CampusDepartment of Soeukfvrf[address] [place] [address] Patien t Name: PENNY ORDAZ Brit : 1960Sex: MAge: Race: WhiteMRN: [id number]. Location: 84Patient Status: Date: 10/19/2017 9:55:00 AMCompleted Date: 10/19/2017 10:07 AMRequesting Provider: RASHEEDA GORDILLO Attending Provider: Report Copy To: Signs & Symptoms: M96.671 Fx tib/fib fol insrt ortho implnt/prosth/bone plt, right leg Z25Nqcituu: AthenaComments: , , Views (X-RAY, TIBIA AND FIBULA): AP, Lateral , , , Ordering Provider - RASHEEDA GORDILLO , Exam: TIBIA FIBULA RIGHTAccession #: [id number] ANKLE RIGHT 3 VWS, TIBIA FIBULA RIGHT 10/19/2017 [...] AP,Lateral and Oblique views were obtained. (accession [id number]), AP(PA) and Lateral views were obtained. (accession [id number]) COMPARISON: October 19, 2017 FINDINGS: Soft tissues:Unchanged Bones:Unchanged Joints:Unchanged IMPRESSION: Healing lower leg injury with jil fixing distal midshaft tibial fracture in good alignment and no hardware securing healing proximal fibular fracture Electronically signed by:Lauren Clemente. Transcribed by: [id number], User Resident: Electronically Signed by: LAUREN CLEMENTE @ 10/19/2017 10:33 AMNormalMemorial Health System Selby General HospitalComment on above:Order Comment: No: Do not add to previous drawANKLE RIGHT 3 VWSon 79-47-7144FRWLD RIGHT 3 SUniBlanchard Valley Health SystemDepartment of Lrgaamuuv[address] [place] [address] Patien t Name: PENNY ORDAZ : 1960Sex: MAge: Race: WhiteMRN: [id number]. Location: 84Patient Status: Date: 08/31/2017 11:10:00 AMCompleted Date: 08/31/2017 11:32 AMRequesting Provider: RASHEEDA GORDILLO Attending Provider: Report Copy To: Signs & Symptoms: S82.391D Oth fx lower end of r tibia, subs for clos fx w routn heal M02Bkgjtdp: AthenaComments: , , , Ordering Provider - RASHEEDA GORDILLO , Exam: ANKLE RIGHT 3 VWSAccession #: [id number] TIBIA FIBULA RIGHT, ANKLE RIGHT 3 VWS 08/31/2017 [...] AP(PA) and Lateral views were obtained. (accession [id number]), AP,Lateral and Oblique views were obtained. (accession [id number]) COMPARISON: August 03, 2017 FINDINGS: Soft tissues:No [...] tibia Electronically signed by:Lauren Clemente. Transcribed by: [email or web address], User Resident: Electronically Signed by: LAUREN CLEMENTE @ 08/31/2017 11:37 AMNormalMemorial Health System Selby General HospitalComment on above:Order Comment: No: Do not add to previous drawTIBIA FIBULA RIGHTon 13-09-1863OXNFT FIBULA [facility] HospitalDepartment of Qrouwqv[address] [place] [address] Patien t Name: PENNY ORDAZ : 1960Sex: MAge: Race: WhiteMRN: [id number]. Location: 84Patient Status: Date: 08/31/2017 11:10:00 AMCompleted Date: 08/31/2017 11:32 AMRequesting Provider: RASHEEDA GORDILLO Attending Provider: Report Copy To: Signs & Symptoms: M96.671 Fx tib/fib fol insrt ortho implnt/prosth/bone plt, right leg R59Kmybrss: AthenaComments: , , Views(X-RAY, TIBIA AND FIBULA): AP, Lateral , , , Ordering Provider - RASHEEDA GORDILLO , Exam: TIBIA FIBULA RIGHTAccession #: [id number] TIBIA FIBULA RIGHT, ANKLE RIGHT 3 VWS 08/31/2017 11:32 AM EST SIGNS AND SYMPTOMS: M96.671 Fx tib/fib fol insrt ortho implnt/prosth/bone plt, right leg I10 TECHNOLOGIST COMMENTS: Patient states post fall x 07/14/2017 ortho follow up of right tibia and right ankle QUESTION FOR THE RADIOLOGIST: , , Views (X-RAY, TIBIA AND FIBULA): AP, Lateral , , , Ordering Provide r - RASHEEDA GORDILLO , PROTOCOL: AP(PA) and Lateral views were obtained. (accession [id number]), AP,Lateral and Oblique views were obtained. (accession [id number]) COMPARISON: August 03, 2017 FINDINGS: Soft tissues:No change Bones:Satisfactory alignment with healing along the proximal fibular fracture, still limited response along the tibial fracture supported by nail. The malleolar fracture shows healing. Joints:Maintained IMPRESSION: Healing ankle injury similar to August 03, 2017 with progression of healing along the proximal fibula, and the distal tibial malleolus, less so alongthe distal midshaft tibia Electronically signed by:Lauren Clemente. Transcribed by: [email or web address], User Resident: Electronically Signed by: LAUREN CLEMENTE @ 08/31/2017 11:37 AMNormalMemorial Health System Selby General HospitalComment on above:Order Comment: No: Do not add to previous drawTIBIA FIBULA RIGHTon 17-26-7664JXOBD FIBULA RIGHTKettering Health Main CampusDepartment of Tnlmzpdzz[address] [place] [address] Patien t Name: PENNY ORDAZ : 1960Sex: MAge: Race: WhiteMRN: [id number]. Location: 84Patient Status: Date: 08/03/2017 10:05:00 AMCompleted Date: 08/03/2017 10:04 AMRequesting Provider: RASHEEDA GORDILLO Attending Provider: Report Copy To: Signs & Symptoms: M96.671 Fx tib/fib fol insrt ortho implnt/prosth/bone plt, right leg D67Jyhsxps: AthenaComments: , , Views(X-RAY, TIBIA AND FIBULA): AP, Lateral, Oblique , , , Ordering Provider - RASHEEDA GORDILLO , Exam: TIBIA FIBULA RIGHTAccession #: [id number] TIBIA FIBULA RIGHT 08/03/2017 10:04 AM EST SIGNS [...] healing Electronically signed by:Lauren Clemente. Transcribed by: [email or web address], User Resident: Electronically Signed by: LAUREN CLEMENTE @ 08/03/2017 12:03 [facility] Comment on above:Order Comment: No: Do not add to previous drawDischarge Summary on 01-95-7532Aunyyrgas SummaryMR#: [id number] [facility] Name: Penny Ordaz Admitted: 07/14/2017 Discharged: 07/16/2017 Date of : 1960 Physician: Rasheeda Gordillo M.D. DISCHARGE S MANNY DIAGNOSES:1. Right grade 2 open midshaft tibia fracture.2. Right posterior malleolus fracture.3. Right distal fibular fracture.4. Right proximal fibular fracture.SECONDARY DIAGNOSES:1. Tobacco use.2. Heavy alcohol use.PROCEDURES PERFORMED:1. Irrigation debridement of right grade 2 open tibia fracture.2. Open reduction and internal fixation right posterior malleolus fracture.3. Righttibia open reduction and internal medullary nailing.HOSPITAL COURSE: The patient is 56-year-old male, [facility] [...] in PACU. He returned to his room. The reafter DVTprophylaxis was started the next day, with [...] was deemed ready for discharge on 07/16/2017 [facility].DISCHARGE DISPOSITION: Home.DISCHARGE CONDITION: Stable.DISCHARGE INSTRUCTIONS: The patient instructed to continue to be remainnonweightbearing on right lower ext remity. He also was educated on therisk of [...] unrelieved pain.Instructed to call the Ortho Clinic ifhe had any acute questions orconcerns. He was agreeable to the plan above.DISCHARGE MEDICATIONS: Cephalexin 500 mg q.i.d., vitamin D3 5000 unitsdaily, diflorasone topical daily, docusate 100 mg b.i.d., enoxaparin 40 mgq.i.d., hydrocodone/acetaminophen 5/325, 1-2 tablets q.4 hours p.r.n.Electronically Signed by:Rasheeda Gordillo M.D. 07/26/2017 04:20 P Rasheeda oGrdillo M.D. I have reviewed this discharge summary and confirmed the resident'sdocumentation.Please note that there may be additional documentation fromme. Date Dict: 07/21/2017/09:05 Sherry/CIELO Corriganate Trans: 07/22/2017 02:28 Sherry/Irwin_JN:[id number]: Dewey Enriquez M.D. [address] [place] [address]AmgbnyCgvMadison HealthALBUMIN BLOODon 85-69-3346Gravgju7.3 g/dLLow3.5-5.7The [facility] Main CampusComment on above:Order Comment: No: Do not add to previous drawPerformed By: #### [address]58[address] ####[facility] [place] [address], [facility] CENTERBASIC METABOLIC PANELon 07-15-2017 Calcium8.5 mg/dLLow8.6-10.3The [facility] CampusComment on above:Order Comment: No: Do not add to previous drawPerformed By: #### 85099 ####[facility] [place] [address], [facility] Olhvimfl539 mmol/QCeqhyf96-331Smg [facility] CampusComment on above:Order Comment: No: Do not add to previous drawPerformed By: #### 76431 ####[facility] [place] [address], [place] CO229 mmol/JDfteaw77-84Khe [facility] CampusComment on above: Order Comment: No: Do not add to previous drawPerformed By: #### 82471 ####[facility] [place] [address], [place] Creatinine0.66 mg/dLLow0.70-1.30The [facility] CampusComment on above:Order Comment: No: Do not add to previous drawPerformed By: #### 81163 ####[facility] [facility] [place] [address], [place] eGFR (black)mL/min/{1.73_m2}Normal>60The [facility] Comment on above:Order Comment: No: Do not add to previous drawPerformed By: #### 02974 ####[facility] [place] [address], USAeGFR (non-black)mL/min/{1.73_m2}Normal>60The [facility] CampusComment on above:Order Comment: No: Do not add to previous draw Performed By: #### 24958 ####[facility] [facility] [place] [address], [facility] CENTERGlucose mass conc89 mg/yTMettie25-385Dcj [facility] CampusComment on above:Order Comment: No: Do not add to previous drawPerformed By: #### 68232 ####[facility] [facility] [place] [address], USAPotassium molar conc4.3 mmol/LNormal3.5-5.1 The [facility] CampusComment on above:Order Comment: No: Do not add to previous drawPerformed By: #### 05071 ####[facility] [facility] [place] [address], MQVHmedwp841 mmol/LNormal 136-145The [facility] CampusComment on above:Order Comment: No: Do not add to previous drawPerformed By: #### 55809 ####[facility] [facility] [place] [address], USAUrea nitrogen9 mg/dL Normal7-25The [facility] CampusComment on above:Order Comment: No: Do not add to previous drawPerformed By: #### [address]207 ####[facility] [facility] [place] [address], USACBC COMPLETE BLOOD COUNTon 05-56-0762Kmcvzhqwgzq distribution width Auto Ratio (RBC)15.2 %Normal 11.5-16.9The [facility] CampusComment on above:Order Comment: No: Do not add to previous drawPerformed By: #### [id number] ####[facility] [place] [address], [facility] CENTERErythrocytes (RBC)3.00 mill/ng2Yuw6.30-5.90The [facility] CampusComment on above: Order Comment: No: Do not add to previous drawPerformed By: #### 74160 ####[facility] [place] [address], [facility] Hematocrit (HCT)29.6 %Low39.0-55.0The [facility] CampusComment on above:Order Comment: No: Do not add to previous drawPerformed By: #### 97286 ####[facility] [place] [address], [facility] Hemoglobin mass conc (Bld)9.9 g/dLLow13.9-16.3The [facility] CampusComment on above:Order Comment: No: Do not add to previous drawPerformed By: #### 27113 ####[facility] [place] [address], GATFNS70.0 scGkgm93.0-32.0The [facility] Comment on above:Order Comment: No: Do not add to previous drawPerformed By: #### 53907 ####[facility] [place] [address], [facility] CENTERMCHC mass conc (RBC)33.4 g/fCJwfxjl88.0-36.0The [facility] CampusComment on above:Order Comment: No: Do not add to previous draw Performed By: #### 47255 ####[facility] [place] [address], GYANJZ08.8 nAVnlcnu33.0-100.0The [facility] CampusComment on above:Order Comment: No: Do not add to previous draw Performed By: #### 13432 ####[facility] [place] [address], USAPLAT RCP680 Thou/oe7Dithtb016-299Lym [facility] CampusComment on above:Order Comment: No: Do not add to previous drawPerformed By: #### 38683 ####[facility] [place] [address], [facility] CENTERWBC (Leukocytes)8.6 Thou/cb9Ylfkgv7.0-10.0The [facility] CampusComment on above:Order Comment: No: Do not add to previous drawPerformed By: #### 51634 ####[facility] [place] [address], [facility] CENTEROperative Reporton 07-15-2017 Operative ReportMR#: [id number] IUniversFostoria City [facility] Pt[facility] Name: Penny Ordaz Room #: [id number] Discharge Date: Birthdate: 1960 OPERATIVE REPORTDATE OF [...] a 56-year-old male, who [facility] sustaining a fall on the [...] nondisplaced posterior malleolus fracture. Given theopen nature ofthe wound, the patient was brought back in a fairly urgentmanner for today's surgery. He agreed to all risks and expected benefitsof having the procedure done prior to entering the operative suite.PROCEDURE IN DETAIL: The patient was seen in the preoperative holdingarea. The right leg was marked byme. He was taken back to the operatingroom. [...] size. It was down to the level ofbone. Of note,there was no gross contamination; however, the proximal bony spike wasclearly visiblewithin the wound and was protruding somewhat. We [...] wound. Atthis stage, after the wound was eitan an, we then were able to easily obtainour [...] turned our attention to the tibial nailing. Ofnotbutch, he does have a history of psoriasis with multiple plaque lesions onthe lower extremity including 1 over our anteriorly based knee incision;however, this was a fairly large plaque and we cannot avoid it with ourincision. We, therefore, made this incision just off the inferior pole ofthe patella, dissected down through the soft tissues, identified thepatellar tendon, which wassplit in line with the incision. Our startingpoint was obtained with our guide pin and confirmed with AP and lateralx-rays. We then utilized our opening reamer. We passed our ball- tipguidewire down to the level just proximal of the distal anterior- posteriorscrews. We obtained our length measurements and we began sequentiallyreaming while assuring that we had maintained reduction at our fracturesite. We began with a 9 reamer and reamed up to a 11.5 reamer withexcellent chatter. I decided upon a 10 mm nail, this was then placed pastthe fracture and seated to the appropriate depth without difficulty.Distally, we placed 2 medial to lateral locking screws using perfect circletechnique and proximally, we used the jig in order to place 2 medial tolateral locking screws proximally. All screws hadexcellent purchase. Atthis stage, we took final AP and lateral x-rays at the knee, the fracturesiteas well as at the ankle. At the [...] he was going eddie nonweightbearing for at least6 weeks given the posterior malleolusfracture at the [...] the approximately 80% of the open wound;however, thedistal extent was a little bit more tenuous [...] was awoken from anesthesia and was taken topostoperativeanesthesia care unit in stable condition.I was present for the entire procedure and available immediately thereafterfor any possible complications.POSTOPERATIVE COURSE: The patient will be nonweightbearing to [...] 07/14/2017/02:49 P/Rasheeda Gordillo M.D.Date Trans: 07/14/2017 11:58 P/Irwin_JN:[id number]: Dewey Enriquez M.D. [facility] [address] [place] [address]EwclrkXovMadison HealthPREALBUMINon 38-84-1659Sjnhbazybh55.2 mg/dLNormal 17.0-34.0The [facility] CampusComment on above:Order Comment: No: Do not add to previous drawPerformed By: #### 28225 ####[facility] [place] [address], [facility] CENTERTRANSFERRINon 07-15-2017 Rsgmbgiyybk843 mg/tNKnogsu612-449Mxy [facility] CampusComment on above:Order Comment: No: Do not add to previous drawPerformed By: #### 08531 ####[facility] [place] [address], [facility] VITAMIN D 25-HYDROXYon 46-79-0979IWMAQYA D 25-[place]<13.0Low30.0-80.0The [facility] CampusComment on above:Result Comment: >80.0 Toxicity possible Performed By: #### 29573 ####[address] [address], [facility]3D CT LOWER EXTREMITY WO CONTRAST RIGHTon 24-24-11306H CT LOWER EXTREMITY WO CONTRAST [facility] HospitalDepartment of Fbjqluv[address] [place] [address] Patien t Name: PENNY ORDAZ : 1960Sex: MAge: Race: WhiteMRN: [id number]. Location: [id number] Status: IVisit #: [id number] Date: 07/14/2017 9:20:00 AMCompleted Date: 07/14/2017 11:03 AMRequesting Provider: RASHEEDA GORDILLO Attending Provider: REX HIGH Report Copy To: Signs & Symptoms: FractureHistory: Patient history not availableComments: R/O Fractures, Right ankle CT STAT without contrast to rule out posterior malleolus fracture. Patient scheduled for OR at 11AM.Exam: 3D CT LOWER EXTREMITY WO CONTRAST RIGHTAccession #: [id number] 3D CT LOWER EXTREMITY WO CONTRAST RIGHT 07/14/2017 [...] fracture of tibia with distal segment offset laterallyby 1 shaft width and with posterior convexity [...] plain film. Soft tissues: Diffuse swelling with extensiveair bubbles in the vicinity of the compound [...] fracture Electronically signed by:Lauren Clemente. Transcribed by: [id number], User Resident: Electronically Signed by: LAUREN CLEMENTE @ 07/14/201711:41 AMNormalThe [facility] Comment on above:Order Comment: No: Do not add to previous drawALCOHOLon 46-76-0212HoxpfdaSCVV [facility] Comment on above:Result Comment: Divide by 1000 to convert mg/dL to percent. Example: 100mg/dL = 0.1%.Performed By: #### 60130 ####[facility] [facility] [place] [address], USABASIC METABOLIC PANELon 79-61-2302Wmxvzqu3.9 mg/dLNormal8.6-10.3The [facility] Comment on above:Order Comment: No: Do not add to previous drawPerformed By: #### 60985 ####[facility] [place] [address], QNNBknewiyd027 mmol/WKurq28-945Hfd [facility] Comment on above:Order Comment: No: Do not add to previous drawPerformed By: #### 02382 ####[facility] [facility] [place] [address], QIKSJ863 mmol/HOtysyn13-75Frz [facility] CampusComment on above:Order Comment: No: Do not add to previous drawPerformed By: #### 69172 ####[facility] [place] [address], [place] Creatinine0.68 mg/dLLow0.70-1.30The [facility] CampusComment on above:Order Comment: No: Do not add to previous drawPerformed By: #### 39886 ####[facility] [facility] [place] [address], [place] eGFR (black)mL/min/{1.73_m2}Normal>60The [facility] Comment on above:Order Comment: No: Do not add to previous drawPerformed By: #### 73297 ####[facility] [place] [address], USAeGFR (non-black)mL/min/{1.73_m2}Normal>60The [facility] CampusComment on above:Order Comment: No: Do not add to previous draw Performed By: #### 25620 ####[facility] [facility] [place] [address], [facility] CENTERGlucose mass cohr836 mg/yIGfmz54-836Dwn [facility] CampusComment on above:Order Comment: No: Do not add to previous drawPerformed By: #### 69252 ####[facility] [facility] [place] [address], USAPotassium molar conc4.3 mmol/LNormal3.5-5.1 The [facility] CampusComment on above:Order Comment: No: Do not add to previous drawPerformed By: #### 86833 ####[facility] [place] [address], MBOXczxjy623 mmol/LNormal 136-145The [facility] CampusComment on above:Order Comment: No: Do not add to previous drawPerformed By: #### 87776 ####[facility] [facility] [place] [address], USAUrea kwqbwclu08 mg/dL Normal7-25The [facility] CampusComment on above:Order Comment: No: Do not add to previous drawPerformed By: #### 53252 ####[facility] [facility] [place] [address], USACBC COMPLETE BLOOD COUNTon 02-24-5950Rcadpzgztyv distribution width Auto Ratio (RBC)14.9 %Normal 11.5-16.9The [facility] CampusComment on above:Order Comment: No: Do not add to previous drawPerformed By: #### 77184 ####[facility] [place] [address], [facility] CENTERErythrocytes (RBC)3.66 mill/rn9Zsb8.30-5.90The [facility] CampusComment on above: Order Comment: No: Do not add to previous drawPerformed By: #### 04068 ####[facility] [place] [address], [facility] Hematocrit (HCT)35.6 %Low39.0-55.0The [facility] CampusComment on above:Order Comment: No: Do not add to previous drawPerformed By: #### 44238 ####[facility] [place] [address] Hemoglobin mass conc (Bld)12.2 g/dLLow13.9-16.3The [facility] CampusComment on above:Order Comment: No: Do not add to previous drawPerformed By: #### 03088 ####[facility] [facility] [place] [address], OSSWPT21.3 liOmke39.0-32.0The [facility] Comment on above:Order Comment: No: Do not add to previous drawPerformed By: #### 85395 ####[facility] [place] [address], [facility] CENTERMCHC mass conc (RBC)34.2 g/mZNxfwcm11.0-36.0The [facility] CampusComment on above:Order Comment: No: Do not add to previous draw Performed By: #### 67438 ####[facility] [place] [address], OJEBMF11.3 yQMhazpm25.0-100.0The [facility] CampusComment on above:Order Comment: No: Do not add to previous draw Performed By: #### 04020 ####[facility] [facility] [place] [address], USAPLAT GLC204 Thou/gw6Afrgch740-176Nul [facility] CampusComment on above:Order Comment: No: Do not add to previous drawPerformed By: #### 88751 ####[facility] [place] [address].[place] [address], USAWBC (Leukocytes)9.4 Thou/rb9Cmxhkm9.0-10.0The [facility] CampusComment on above:Order Comment: No: Do not add to previous drawPerformed By: #### 39905 ####[address] [place] [place] [address], USAPOC GLUCOSE LABon 07-14-2017 Glucose mass vlff668 mg/nNSkvt01-190Wvg [facility] Comment on above:Performed By: #### 78227 ####[address] [place] [address], USAPORTABLE ANKLE RIGHT 2 VWSon 24-07-9599HORXFEMG ANKLE RIGHT 2 SUniversOhioHealth Southeastern Medical CenterDepartment of Nfdbzxlgp[address] [place] [address] Patien t Name: ORDAZPENNY VELOZ Brit : 1960Sex: MAge: Race: WhiteMRN: [id number]. Location: [id number] Status: IVisit #: [id number] Date: 07/14/2017 3:15:00 PMCompleted Date: 07/14/2017 03:55 PMRequesting Provider: CORNELIA ROAC Attending Provider: REX HIGH Report Copy To: Signs & Symptoms: Post OPHistory: Patient history not availableComments: Hardware EvaluationExam: PORTABLE ANKLE RIGHT 2 VWSAccession #: [id number] PORTABLE ANKLE RIGHT 2 VWS 07/14/2017 3:55 PM EST SIGNS AND SYMPTOMS: Post OP TECHNOLOGIST COMMENTS: post op rt tib fib and rt ankle hardware QUESTION FOR THE RADIOLOGIST: Hardware Evaluation PROTOCOL: AP(PA) and Lateral views were obtained. COMPARISON: 07/06/2017, earlier the same day.. FINDINGS: Soft tissues:Soft tissue edema about the distal tibia Bones:Interval placement of IM rodwith screws in distal tibia. 2 additional screws [...] these findings. Electronically signed by:Oscar Still. Transcribed by:[email or web address], User Resident: ADRIEL SYKESElectronically Signed by: OSCAR STILL @ 07/16/2017 01:33 AMI personally read this/these film(s) with this UC Medical CenterComment on above:Order Comment: No: Do not add to previous drawPORTABLE ANKLE RIGHT 2 VWSUniversity [facility] HospitalDepartment of Gpixmkbok[address] [place] [address] Patien t Name: PENNY ORDAZ : 1960Sex: MAge: Race: WhiteMRN: [id number]. Location: [id number] Status: IVisit #: [id number] Date: 07/14/2017 12:55:00 AMCompleted Date: 07/14/2017 03:01AMRequesting Provider: BHARTI BLUE Attending Provider: REX HIGH Report Copy To: Signs & Symptoms: Pain ( specify Location)History: Patient history not availableComments: R/O FXExam: PORTABLE ANKLE RIGHT 2 VWSAccession #: [id number] PORTABLE TIBIA FIBULA RIGHT, PORTABLE ANKLE RIGHT 2 VWS, PORTABLE KNEE RIGHT 2VWS 07/14/2017 3:01 AM EST SIGNS AND SYMPTOMS: [...] the proximal segment and there is slight medi al convexity Joints:Knee and ankles appear to be intact with small effusions IMPRESSION: Displaced tib-fib fracture as above with closed reduction and residual offset deformity and foreshortening Electronically signed by:Lauren Clemente. Transcribed by: [id number], User Resident: Electronically Signed by: LAUREN CLEMENTE @ 07/14/2017 08:06 [facility] Comment on above:Order Comment: R/O FXPORTABLE KNEE RIGHT 2 VWSon 07-14-2017 PORTABLE KNEE RIGHT 2 SUniBlanchard Valley Health SystemDepartment of Nqtkljuti[address] [place] [address], [place] [address] Patien t Name: PENNY ORDAZ : 1960Sex: MAge: Race: WhiteMRN: [id number]. Location: [id number] Status: IVisit #: [id number] Date: 07/14/2017 12:55:00 AMCompleted Date: 07/14/2017 03:01AMRequesting Provider: BHARTI BLUE Attending Provider: REX HIGH Report Copy To: Signs & Symptoms: DeformityHistory: Patient history not availableComments: R/O FXExam: PORTABLE KNEERIGHT 2 VWSAccession #: [id number] =====PORTABLE TIBIA FIBULA RIGHT, PORTABLE ANKLE RIGHT 2 [...] segment and there is slight medial convexity Petra nts:Knee and ankles appear to be intact with small effusions IMPRESSION: Displaced tib-fib fractureas above with closed reduction and residual offset deformity and foreshortening Electronically signed by:Lauren Clemente. Transcribed by: [id number], User Resident: Electronically Signed by: LAUREN CLEMENTE @ 07/14/2017 08:06 AMNormalThe [facility] CampusComment on above:Order Comment: R/O FXPORTABLE TIBIA FIBULA RIGHTon 46-52-3275OSFOFRSB TIBIA FIBULA RIGHTUnTrinity Health System West CampusDepartment of Uhrvppjim[address] [place] [address] Patien t Name: PENNY ORDAZ : 1960Sex: MAge: Race: WhiteMRN: [id number]. Location: [id number] Status: IVisit #: [id number] Date: 07/14/2017 3:15:00 PMCompleted Date: 07/14/2017 03:55 PMRequesting Provider: CORNELIA ROCA Attending Provider: REX HIGH Report Copy To: Signs & Symptoms: Post OPHistory: Patient history not availableComments: Hardware EvaluationExam: PORTABLE TIBIA FIBULA RIGHTAccession #: [id number] PORTABLE TIBIA FIBULA RIGHT 07/14/2017 3:55 PM EST [...] fracture. Screws through the anterior distal tibia arealso again noted. Unchanged proximal and distal fibular fractures. Joints:No dislocation. IMPRESSION: Fixated tibial fractures now in good alignment. Fibular fractures again noted. Approved by:Adriel Sykes on 07/14/2017 4:21 PM EST. I, Oscar Still, have reviewed the images and report and concurwith these findings. Electronically signed by:Oscar Still. Transcribed by: [email or web address], User Resident: ADRIEL SYKESElectronically Signed by: OSCAR STILL @ 07/16/2017 01:31 AMI personally read this/these film(s) with this residentClinton Memorial HospitalComment on above:Order Comment: No: Do not add to previous drawPORTABLE TIBIA FIBULA RIGHTKettering Health Main CampusDepartment of Wgbxzyvfe[address] [place] [address] Patien t Name: PENNY ORDAZ : 1960Sex: MAge: Race: WhiteMRN: [id number]. Location: [id number] Status: IVisit #: [id number] Date: 07/14/2017 12:50:00 AMCompleted Date: 07/14/2017 03:01AMRequesting Provider: BHARTI BLUE Attending Provider: REX HIGH Report Copy To: Signs & Symptoms: TraumaHistory: Patient history not availableComments: R/O FXExam: PORTABLE TIBIA FIBULA RIGHTAccession #: [id number] ====PORTABLE TIBIA FIBULA RIGHT, PORTABLE ANKLE RIGHT 2 VWS, PORTABLE KNEE RIGHT 2 VWS 07/14/2017 3:01 AM EST SIGNS AND SYMPTOMS: Trauma TECHNOLOGIST COMMENTS: s/p fall; patient transferred from another hospital; has a known tibia fx QUESTION FOR THE RADIOLOGIST: R/O FX PROTOCOL: AP(PA) and Lateralviews were obtained. COMPARISON: July 14, 2017 FINDINGS: Soft tissues:Overlying splint securingthe oblique distal midshaft tibia fracture and in offset alignment and the proximal fibular fracture and slightly impacted alignment. Bones:The distal tibial segment is almost one shaft width lateraland one half shaft width posterior to the proximal segment and there is slight medial convexity Join ts:Knee and ankles appear to be intact with small effusions IMPRESSION: Displaced tib-fib fracture as above with closed reduction and residual offset deformity and foreshortening Electronically signed by:Lauren Clemente. Transcribed by: [id number], User Resident: Electronically Signed by: LAUREN CLEMENTE@ 07/14/2017 08:06 AMNormalThe [facility] CampusComment on above:Order Comment: R/O FXPROTHROMBIN TIMEon 82-67-5114OWY Coag RelTime (PPP) 1.06 {INR}Normal0.91-1.16The [facility] CampusComment on above:Order Comment: No: Do not add to previous drawResult Comment: ACCCP RECOMMENDED INR FOR WARFARIN THERAPY CONDITION INRPROPHYLAXIS OF VENOUS THROMBOSIS 2-3(HIGH-RISK SURGERY)TREATMENT OF VENOUS THROMBOSIS 2-3TREATMENT OF PULMONARY EMBOLISM 2-3PREVENTION OF SYSTEMIC EMBOLISM: 2-3 ACUTE MYOCARDIAL INFARCTION TISSUE HEART VALVES VALVULAR HEART DISEASE ATRIAL FIBRILLATION RECURRENT SYSTEMIC EMBOLISMMECHANICAL HEART VALVE 2.5-3.5 FROM: ORAL ANTICOAGULANTS. MECHANISM OF ACTION, CLINICALEFFECTIVENESS, AND OPTIMAL THERAPEU TIC RANGE. [id number];108:231S-246S.Performed By: #### 93868 ####[facility] [facility] [place] [address], [facility] CENTERProthrombin time (PT) Coag time (PPP)13.8 lMgjfrq45.3-14.8The [facility] Comment on above:Order Comment: No: Do not add to previous drawResult Comment: ALL RESULTS MUST BE INTERPRETED WITH RESPECT TO BLOOD DRAWING ARTIFACTOR DILUTION ERROR OF ANTICOAGULANT AT THE TIME OF SAMPLING.Performed By: #### 60944 ####[facility] [facility] [place] [address], [facility] RBC'S 2 UNITSon 24-85-0470YCIWEOPINQ INTERP 1COMPClinton Memorial HospitalComment on above:Performed By: #### 40036 ####[facility] [facility] [place] [address], [facility] CENTERCROSSMATCH INTERP 2COMP NormalMemorial Health System Selby General HospitalComment on above:Performed By: #### 41674 ####[place] [address] [facility] [place] [address], [facility] CENTERPRODUCT CODE [id number] Memorial Hospital Comment on above:Performed By: #### 67643 ####[facility] [facility] [place] [address], [facility] CENTERPRODUCT CODE [id number] Memorial HospitalComment on above:Performed By: #### 88545 ####[address] [place] [address], [facility] PRODUCT STATUS 1RProMedica Fostoria Community HospitalComment on above: Result Comment: Result changed by IF on 07/18/2017 07:23. The previous value was XM.Performed By: #### 46966 ####[address] [place] [address], USAPRODUCT STATUS 2RProMedica Fostoria Community HospitalComment on above:Result Comment: Result changed by IF on 07/18/2017 07:23. The previous value was XM.Performed By: #### 97054 ####[address] [place] [address], [facility] UNIT ABO 1AClinton Memorial HospitalComment on above: Performed By: #### 66013 ####[facility] [facility] [place] [address], USAUNIT ABO 2AClinton Memorial HospitalComment on above:Performed By: #### 44947 ####[address] [place] [address], [facility] CENTERUNIT ID [id number]-LDjndxwOapMemorial Health System Selby General HospitalComment on above:Performed By: #### 23723 ####[address] [place] [address], [facility] UNIT ID [id number] Health System Selby General HospitalComment on above:Performed By: #### 24109 ####[address] [place] [address], USAUNIT RH 1PositiveNoMadison HealthComment on above:Performed By: #### 75871 ####[address] [place] [address], [facility] CENTERUNIT RH 2Positive NormalMemorial Health System Selby General HospitalComment on above:Performed By: #### 08942 ####[address] [place] [address], USATIBIA FIBULA RIGHTon 19-58-7498WUGAN FIBULA RIGHTUnTrinity Health System West CampusDepartment of Pskossjdo[address] [place] [address] Patien t Name: PENNY ORDAZ : 1960Sex: MAge: Race: WhiteMRN: [id number]. Location: [id number] Status: IVisit #: [id number] Date: 07/14/2017 1:30:00 PMCompleted Date: 07/14/2017 02:20 PMRequesting Provider: RASHEEDA GORDILLO Attending Provider: REX HIGH Report Copy To: Signs & Symptoms: im rodding right tibiaHistory: im rodding right tibiaComments: im rodding right tibiaExam: TIBIA FIBULA RIGHTAccession #: [id number] TIBIA FIBULA RIGHT 07/14/2017 2:20 PM EST SIGNS AND SYMPTOMS: im rodding right tibia TECHNOLOGIST COMMENTS: intra-op right tibia jil, 2 minutes 40 seconds fluoro time, OR 5, QUESTION FOR THE RADIOLOGIST: im rodding right tibia PROTOCOL: AP(PA) and Lateral views were obtained. COMPARISON: None FINDINGS: Soft tissues: Bones: Joints: IMPRESSION: Documentation Electronically signed by:Lauren Clemente. Transcribed by: [email or web address], User Resident: Electronically Signed by: LAUREN CLEMENTE @ 07/14/2017 02:53 PMNormalThe [facility] CampusComment on above:Order Comment: No: Do not add to previous drawTYPE AND SCREENon 38-89-8707TKJ INTERPRETATIONAvita Health SystemComment on above: Performed By: #### 24468 ####[facility] [place] [address], USAANTIBODY SCREENNegativeNoMadison HealthComment on above:Performed By: #### [id number] ####[facility] [place] [address], USARH INTERPRETATIONPositive NormalThe Kettering Health Main CampusComment on above:Performed By: #### [id number] ####[facility] [place] [address], USAXR TIB-FIB RT 2Von 86-60-9079SK TIB-FIB RT [id number] [place] [address] Patient: PENNY ORDAZ Exam Date: 07/13/2017DOB: 1960 Gender:M : DR MELBA SANCHEZ . Admission #: [id number] : Order #: [id number] HERE TO VIEW EXAM RADIOLOGY REPORT PROCEDURE: [...] by: Kei Arreola M.D. on 07/14/2017 at 07:56[facility] Vital Signs Date TimeVital SignValuePerforming PpnmeznnyZiqqgfjz93-56-1153 14:00-0400Body wmurue914.7 Layla Atwood MD Work Phone: [facility]09-09-2025 14:00-0400 Body mass index (BMI) [Ratio]23.36 kg/a2UyjwvwbRhona Atwood MD Work Phone: [facility]09-09-2025 14:00-0400 Body pgngbvgroyd60.3 [degF]Rhona Atwood MD Work Phone: [facility]09-09-2025 14:00-0400 Body okinmr86.49 kgRhona Atwood MD Work Phone: [facility]09-09-2025 14:00-0400 Diastolic blood oyrvlztv38 mm[Hg]Rhona Atwood MD Work Phone: [facility]09-09-2025 14:00-0400 Heart rate86 /minRhona Atwood MD Work Phone: [facility]09-09-2025 14:00-0400 Respiratory rate16 /Marcia Atwood MD Work Phone: [facility]09-09-2025 14:00-0400 SaO2% (BldA) [Mass fraction]100 %Rhona Atwood MD Work Phone: [facility]09-09-2025 14:00-0400 Systolic blood mm[Hg]Rhona Atwood MD Work Phone: [facility]08-26-2025 10:49-0400 Body gxtxui213.5 cmRamo Taylor MD Work Phone: [phone]wOwlhsq47-85-4605 10:49-0400Body mass index (BMI) [Ratio]22.73 kg/c4LqcfvRamo Taylor MD Work Phone: [phone]sFvlmrx91-74-9792 10:49-0400Body .81 [degF]Ramo Taylor MD Work Phone: [phone]hCwiuyi03-19-9136 10:49-0400Body tximgj14.62 kg Ramo Taylor MD Work Phone: [phone]sVhuibq30-61-9871 10:49-0400Diastolic blood ynnqdwdn34 mm[Hg]Ramo Taylor MD Work Phone: [phone]dNpzxjr88-77-0075 10:49-0400Heart rate87 /Kelvin Taylor MD Work Phone: [phone]tAmtbna62-04-9990 10:49-7381YwE5% (BldA) [Mass fraction]100 %aRmo Taylor MD Work Phone: [phone]) [phone]jRufgdq59-64-5659 10:49-0400Systolic blood gasrybyf006 mm[Hg]Ramo Taylor MD Work Phone: [phone]jBwcqzx52-95-6850 10:02-0400Body pkggoz798.3 cm Dewey ZipZaplong DO Work Phone: [facility] Dwsgxr07-00-9555 10:02-0400Body mass index (BMI) [Ratio]23.23 kg/w5Bfxhul ZipZaplong DO Work Phone: [facility] [place] Mxxxgz18-48-5451 10:02-0400Body ixeytnocfyt95.9 [degF]Dewey Lucialong DO Work Phone: [facility] [place] Tltbkw05-30-6420 10:02-0400Body ausxat61.4 kgDennis ZipZaplong DO Work Phone: [facility] [place] Vydkkn66-60-8234 10:02-0400Diastolic blood fuzhipvi29 mm[Hg]Dewey Furlong DO Work Phone: [facility] [place] Xjylah24-61-6087 10:02-0400Heart rate 99 /minDoliviais Furlong DO Work Phone: [facility] [place] Iyfrzd84-23-4281 10:02-0400 Respiratory rate20 /minDennis Furlong DO Work Phone: [facility] [place] Ecfmmh42-23-9805 10:02-2561PxK0% (BldA) [Mass fraction]100 %Dewey Furlong DO Work Phone: [facility] [place] Wcqnpe36-37-4698 10:02-0400Systolic blood khmfqovt240 mm[Hg]Dewey Enriquez DO Work Phone: [facility]08-06-2025 12:15-0400Diastolic blood yforoztw82 mm[Hg] LktbxyfempTebqhMzayva90-82-1243 12:15-0400Heart rate90 /min RqlysbbojtYroaoOinyjg72-12-1966 12:15-0400Respiratory rate18 /min TzjjdwbehyInwdvPskzex78-51-8702 12:15-7702KuP8% (BldA) [Mass fraction]99 % LzjvemugfvMlkchGjqyem62-47-7274 12:15-0400Systolic blood fhroawgp762 mm[Hg] SqbugbptdzYktniCtgyak58-67-0322 10:17-0400Body rgcrowfdnav46.81 [degF] AfnrusbuwvMqycaCjmkie29-49-7080 10:46-0400Body mass index (BMI) [Ratio]21.84 kg/m7VwutnRamo Taylor MD Work Phone: [phone]nVdbgqm25-42-8727 10:46-0400Body suimkpjibvb36.01 [degF]Ramo Taylor MD Work Phone: [phone]qNsslsz62-67-6633 10:46-0400Body qtwywg07.81 kg Ramo Taylor MD Work Phone: 1(907) [phone]vQfuxif83-29-2566 10:46-0400Diastolic blood mm[Hg]Ramo Taylor MD Work Phone: 1([phone]) [phone]yKhvmhs31-60-8262 10:46-0400Heart rate80 /minRamo Taylor MD Work Phone: 1(100) [phone]qMqrwru02-70-6348 10:46-0400Respiratory rate18 /minRamo Taylor MD Work Phone: 1(167) [phone]gXpxxcz93-91-4843 10:46-4036QjT6% (BldA) [Mass fraction]100 %Ramo Taylor MD Work Phone: [phone]fHeqate43-63-4654 10:46-0400Systolic blood kdzozldl630 mm[Hg]Ramo Taylor MD Work Phone: [phone]) [phone]tKgzdup44-09-8080 09:49-0400Body nfngdi190.5 cm Bone PklxqcVteazCgzmow82-44-0819 09:49-0400Body mass index (BMI) [Ratio]22.22 kg/m2Bone HuclbnYdvcaOeeymq25-75-0066 09:49-0400Body lkfiblazyhv30.39 [degF]Bone LeoofkUprrjOjfilp77-67-4242 09:49-0400Body ttjycf96 kgBone BiopsyMetroPaulding County Hospital 01-21-2025 09:49-0400Diastolic blood yoqngboq80 mm[Hg]Bone BiopsyMetThe [facility] 01-21-2025 09:49-0400Heart rate82 /minBone ZvkgpjHtjdvHacwhf26-17-3184 09:49-0400Respiratory rate14 /minBone FhaxubPgrheGvwanx65-28-7690 09:49-0400 SaO2% (BldA) [Mass fraction]100 %Bone RnebgkYvovuIifirp11-94-3866 09:49-0400 Systolic blood pzuokbdj15 mm[Hg]Bone IcamgdDytqlAwflqf44-66-6148 11:19-0400Body udvkmi698 cmRamo Taylor MD Work Phone: 1(706) [phone]jNopxzz66-08-7569 11:19-0400Body mass index (BMI) [Ratio]22.64 kg/h7YfqztRamo Taylor MD Work Phone: TnjzcUmbzij59-666302OpjvaSbcnuc50-68-7419 11:19-0400Body nlrqgfkdrqy26.5 [degF]Ramo Taylor MD Work Phone: 1(124) [phone]hSffwna35-96-6934 11:19-0400Body xlydku17.54 kg Ramo Taylor MD Work Phone: 1(841) [phone]zwyTvglvi41-91-0297 11:19-0400Diastolic blood enaxdzdb96 mm[Hg]Ramo Taylor MD Work Phone: [phone]rShwlci95-27-5092 11:19-0400Heart rate91 /Kelvin Taylor MD Work Phone: [phone]bMfrhwl65-28-7342 11:19-1947FnO4% (BldA) [Mass fraction]98 %Ramo Taylor MD Work Phone: [phone]fAjvlmc94-50-5594 11:19-0400Systolic blood royglqln028 mm[Hg]Ramo Taylor MD Work Phone: [phone]AmxhoKgmjua57-84-3228 09:25-0400Body bbyypy448.3 cm Dewey Wilsonng DO Work Phone: [facility] CenterMy[facility]rowd Ctbsnn58-34-8774 09:25-0400Body mass index (BMI) [Ratio]22.29 kg/v7Binzuz Furlong DO Work Phone: [facility] Loykit13-64-5839 09:25-0400Body osquhuajxvc68.59 [degF]Dewey Myerslong DO Work Phone: [facility] Llvtxm86-36-3911 09:25-0400Body .49 kgDewey Myerslong DO Work Phone: [facility] Lsecxp55-54-1838 09:25-0400Diastolic blood lgtvfoju58 mm[Hg]Dewey Myerslong DO Work Phone: [facility] Ksvlow86-81-9866 09:25-0400Heart rate 87 /Fifiis Lucialong DO Work Phone: [facility] Ougtus08-38-8927 09:25-0400 Respiratory rate18 /minDennis Furlong DO Work Phone: [facility] [place] Cqmjxl44-00-5551 09:25-0205ZrO3% (BldA) [Mass fraction]98 %Dewey Myerslong DO Work Phone: [facility] Ouauwb70-08-8127 09:25-0400Systolic blood iuisseao397 mm[Hg]Dewey Myerslong DO Work Phone: [facility] [place] Mktkvx46-14-8042 09:26-0400Body zyzlfq364.3 cmDenemilie Myerslong DO Work Phone: [facility] [place] Ncmafd57-10-8350 09:26-0400Body mass index (BMI) [Ratio]23.26 kg/q2Wvkpqq Furlong DO Work Phone: [facility] [place] Mrnhci63-11-6716 09:26-0400Body znippwyvxoz03.5 [degF]Dewey Wilsonng DO Work Phone: [facility] Ilhtmy11-67-3187 09:26-0400Body .49 kgDewey Wilsonng DO Work Phone: [facility] [place] Jmtxak88-06-0149 09:26-0400Diastolic blood whirejfx52 mm[Hg]Dewey Wilsonng DO Work Phone: [facility] Jwysef52-91-2480 09:26-0400Heart rate 91 /Chidi Wilsonng DO Work Phone: [facility] [place] Ioegah24-49-0361 09:26-0400 Respiratory rate18 /Chidi Wilsonng DO Work Phone: [facility] [place] Yaemhq45-97-3040 09:26-6987QkO0% (BldA) [Mass fraction]100 %Dewey Wilsonng DO Work Phone: [facility] [place] Tfwbuw01-22-7375 09:26-0400Systolic blood bqzyxydi244 mm[Hg]Dewey Wilsonng DO Work Phone: [facility] Sgxwop42-75-6610 10:30-0400Body tsxolx456.3 Mago Stuart MD Work Phone: [facility] Siyoic03-16-7614 10:30-0400Body mass index (BMI) [Ratio]23.2 kg/t4Kvmyf Mckenzie MD Work Phone: [facility]03-20-2025 10:30-0400Body himfjcjjzft01.5 [degF]Keyur Stuart MD Work Phone: [facility]03-20-2025 10:30-0400Body yemteu13.31 kgKeyur Stuart MD Work Phone: [facility]03-20-2025 10:30-0400Diastolic blood rwbylmeb40 mm[Hg]Keyur Stuart MD Work Phone: [facility]03-20-2025 10:30-0400Heart rate 96 /minKeyur Stuart MD Work Phone: [facility]03-20-2025 10:30-0400 Respiratory rate16 /minKeyur Stuart MD Work Phone: [facility] CenterThetaRay03-20-2025 10:30-3033ZlG8% (BldA) [Mass fraction]98 %Keyur Stuart MD Work Phone: [facility] CenterThetaRay03-20-2025 10:30-0400Systolic blood yqfuxdar847 mm[Hg]Keyur Stuart MD Work Phone: [facility] CenterTheta[facility]03-07-2025 09:04-0500Body .3 cmDenemilie MyersCyberSponseng DO Work Phone: [facility] CenterThetaRay03-07-2025 09:04-0500Body mass index (BMI) [Ratio]23.71 kg/n1Kqdsuw Furlong DO Work Phone: [facility]03-07-2025 09:04-0500Body wjhoiljwxdk74.39 [degF]Dewey MyersCyberSponseng DO Work Phone: [facility]03-07-2025 09:04-0500Body pfczod53.85 kgDenemilie Myerslong DO Work Phone: [facility]03-07-2025 09:04-0500Diastolic blood kusydjdf86 mm[Hg]Dewey Myerslong DO Work Phone: [facility] HospitalHatsize Tkdrae35-17-4658 09:04-0500Heart rate 101 /minDoliviais Lucialong DO Work Phone: [phone] Sbvbub30-40-2234 09:04-0500 Respiratory rate18 /minDennis Lucialong DO Work Phone: [phone] [place] Yayxuu02-68-9248 09:04-2425PoA9% (BldA) [Mass fraction]93 %Dewey Furlong DO Work Phone: [facility] Togdjp22-80-2324 09:04-0500Systolic blood whkdxyzz106 mm[Hg]Dewey Myerslong DO Work Phone: [facility] Lymkhm25-54-1613 10:29-0500Body bjzfys062.3 cmPatricknis Lucialong DO Work Phone: [facility] CenterThetaRay02-20-2025 10:29-0500Body mass index (BMI) [Ratio]25.67 kg/u4Ykzvjv Furlong DO Work Phone: [facility] Gourxj87-05-6471 10:29-0500Body avutzrbundn35.5 [degF]Dewey Myerslong DO Work Phone: [facility] CenterTheta[facility]02-20-2025 10:29-0500Body rgezmr92.83 kgDenemilie Myerslong DO Work Phone: [facility] CenterThetaRay02-20-2025 10:29-0500Diastolic blood nmweywef90 mm[Hg]Dewey Myerslong DO Work Phone: [facility] CenterTheta[facility]02-20-2025 10:29-0500Heart rate 85 /Fifiis Lucialong DO Work Phone: [facility] Pslvka09-96-5920 10:29-4296SwW9% (BldA) [Mass fraction]96 %Dewey Lucialong DO Work Phone: [facility]02-20-2025 10:29-0500Systolic blood bxqbhban984 mm[Hg]Dewey Myerslong DO Work Phone: [facility]12-09-2024 13:51-0500Body .3 cmDenemilie Myerslong DO Work Phone: [facility]12-09-2024 13:51-0500Body mass index (BMI) [Ratio]24.04 kg/c2Zmiadi Furlong DO Work Phone: [facility]12-09-2024 13:51-0500Body eyyvlorgtjw58.9 [degF]Dewey Myerslong DO Work Phone: [facility]12-09-2024 13:51-0500Body kavbza93.85 kgDenemilie Wilsonng DO Work Phone: [facility]12-09-2024 13:51-0500Diastolic blood igmvioma48 mm[Hg]Dewey Myerslong DO Work Phone: [facility]12-09-2024 13:51-0500Heart rate 94 /Chidi Myerslong DO Work Phone: [facility]12-09-2024 13:51-0500 Respiratory rate18 /minDoliviais Lucialong DO Work Phone: [facility]12-09-2024 13:51-9077KyW5% (BldA) [Mass fraction]95 %Dewey Myerslong DO Work Phone: [facility]12-09-2024 13:51-0500Systolic blood zsivzvmu090 mm[Hg]Dewey Myerslong DO Work Phone: [facility] HospitalHatsize [facility] Encounters Encounter DateEncounter TypeCare ProviderFacilityStart: 05-29-2025 End: 79-22-9081safqssskdpBAWHQCQParma Community General Hospitaltart: 14-23-4915gpnvlmyqoyBDARBYMCincinnati VA Medical Centertart: 93-80-1454szshreyapeCNXZ A [facility] Hospitaltart: 05-29-2025 End: 67-18-3497wkdniqjxcaAKFOEIUUniversity Hospitals Lake West Medical Centertart: 04-30-2025 End: 05-42-4524Rzpodh outpatient visit 40 minutesRhona Atwood MD Work Phone: [facility] Medical CenterComment on above:Primary myelofibrosis (Multi)Start: 04-30-2025 End: 91-53-7926fwzxiozcurUJFITZGUniversity Hospitals Lake West Medical Centertart: 03-26-2025 End: 35-21-8731tkdadvpptgPCXAZEVCincinnati VA Medical Centertart: 03-26-2025 End: 05-72-1088Momwnx consultation new/estab patient 80 minRhona Atwood MD Work Phone: [facility] Medical CenterComment on above:Primary myelofibrosis (Multi) (Primary Dx)Start: 03-26-2025 End: 63-81-2607hsdeqxgcvzYTWGMXOUniversity Hospitals Lake West Medical Centertart: 03-21-2025 End: 91-55-9158Ckxfsqdtv encounterRamo Taylor MD Work Phone: [facility] Oncology MedicalComment on above:Referral to SpecialistStart: 03-20-2025 End: 34-73-1270Nplaahmya encounterKorey Bueno MD Work Phone: [facility] Oncology MedicalStart: 03-19-2025 End: 44-11-3732Yajiqavmo encounterKorey Bueno MD Work Phone: [facility] Oncology MedicalStart: 03-13-2025 End: 31-97-2471Qlhoegcsw encounterWillow DURANT Work Phone: [facility] Oncology MedicalComment on above:Encounter opened in errorStart: 03-12-2025 End: 80-60-9039Ixpbxz outpatient visit 25 minutesRamo Taylor MD Work Phone: [facility] Oncology MedicalComment on above:Dx: Myelofibrosis (HCC) (Primary Dx)Start: 03-12-2025 End: 56-54-7799Evujzc Christine Ramos PharmD Work Phone: [facility] PharmacyStart: 03-07-2025 End: 75-42-1883Qfaeyn outpatient visit 15 minutesDewey Enriquez DO Work Phone: [facility] - Family MedicineComment on above:Primary myelofibrosis (CMS-HCC) (Primary Dx); Severe anemiaStart: 03-07-2025 End: 32-31-1802duefryvoxaVFHMVKHaxtun Hospital District Ambulatory PPGStart: 03-05-2025 End: 37-55-8900Xnqmkseyj encounterRamo Taylor MD Work Phone: [facility] Oncology MedicalStart: 02-26-2025 End: 96-86-7279Wcmqbkafm encounterRamo Taylor MD Work Phone: [facility] Oncology MedicalStart: 02-20-2025 End: 08-87-8964jtebkasomwGBMXQQS PROVIDERFacility:METROHealthStart: 02-20-2025 End: 93-36-7431Lggktfbfoy hospital visit by physicianMh Ct ProceduresMetroPaulding County Hospital Radiology CTComment on above:Pancytopenia; Myelofibrosis (HCC); MDS (myelodysplastic syndrome) (HCC)Start: 02-14-2025 End: 04-60-3580Ifylgrrbr encounterJuliette Schumacher RN Work Phone: [facility] Oncology MedicalStart: 02-12-2025 End: 86-63-5005Aodkgd Harris Taylor MD Work Phone: [facility] Oncology MedicalStart: 02-11-2025 End: 76-23-1611Zwpunqzhb encounterRamo Taylor MD Work Phone: [facility] Oncology MedicalStart: 02-05-2025 End: 62-32-3910Benqhw outpatient visit 25 minutesRamo Taylor MD Work Phone: [facility] Oncology MedicalComment on above:Dx: Pancytopenia (Primary Dx)Start: 02-05-2025 End: 62-07-1956Njgbig OnlySarah Mills PharmD Work Phone: [facility] PharmacyStart: 01-21-2025 End: 47-99-8526hcuswczhcyKPVLKZF PROVIDERFacility:[facility]ighStart: 01-21-2025 End: 38-97-5322Ivswieopnv hospital visit by physicianBone Marrow Biopsy [facility] Oncology MedicalComment on above:Dx: Pancytopenia (Primary Dx)Start: 01-15-2025 End: 12-55-1224Klrdpb OnlySarah Mills PharmD Work Phone: [facility] PharmacyComment on above:Dx: Pancytopenia (Primary Dx)Start: 12-05-2024 End: 69-28-9638Nvxkhh outpatient visit 15 minutesDewey Enriquez DO Work Phone: [facility] Internal Medicine - Family MedicineComment on above:Pleural effusion, right (Primary Dx); Primary myelofibrosis ([facility]-HCC)Start: 12-05-2024 End: 22-49-1542gylgwyjplnXWGERG [facility] Ambulatory PPGStart: 11-27-2024 End: 95-35-6571Mayujmmnx encounterRamo Taylor MD Work Phone: [facility] Oncology MedicalStart: 11-26-2024 End: 39-84-2239Rwepwwvjr Vidal Taylor MD Work Phone: [facility] Oncology MedicalStart: 11-16-2024 End: 72-63-8728Rtjyhqbrd encounterSfilippo Al RMAProMedica Physicians Pulmonary/Sleep MedicineStart: 11-01-2024 End: 76-70-0283upfumzxehcNAPARI G FURLONGAdena Pike [facility] Center [facility] Ambulatory PPGStart: 11-01-2024 End: 41-15-0764Slspgm outpatient visit 15 minutesDenemilie Myerslong DO Work Phone: [facility] Medicine - Family MedicineComment on above:Primary myelofibrosis (CMS-HCC) (Primary Dx); Pleural effusion, right; Memory lossStart: 10-09-2024 End: 36-72-6317crlirxwhdiQnffjb Furlong DO Work Phone: [facility] Work Phone: Start: 10-09-2024 End: 91-01-4084Uchttmvu ReferredDennis Lucialong DO Work Phone: [facility]-LAB Path Spec [facility] HospStart: 10-04-2024 End: 32-17-4656Lgkwhjhvjijdn procedureCandace Alfredo RNDorotKresge Eye Institute - Medical OncologyStart: 10-04-2024 End: 83-17-8953Dsuscm outpatient visit 40 minutesKeyur Stuart MD Work Phone: [facility] - Medical OncologyComment on above:Primary myelofibrosis (CMS-HCC) (Primary Dx); Severe anemia; Lymphadenopathy, inguinal; SplenomegalyStart: 10-04-2024 End: 09-08-4518nzzrviknupFRDFD N [facility] HospitalStart: 10-01-2024 End: 93-85-4724Srdrff OnlyDennis Radha Myerslong DO Work Phone: [facility] Internal Medicine - Family MedicineComment on above:Severe anemia (Primary Dx)Start: 76-81-8326Zfe-patient / Non-visitDennis Furlong DO Work Phone: [facility] Work Phone: Start: 09-26-2024 End: 67-21-0307Nkpkisq encounter procedureDennis Furlong DO Work Phone: [facility]-Respiratory Therapy Work Phone: Start: 09-26-2024 End: 36-87-3460vunhrabmkaEhozjv Furlong DO Work Phone: [facility] Work Phone: Start: 09-21-2024 End: 34-00-6408zycnnuyimtWTDOJJ Radha MYERSLONGProMedica Quebradillas HospitalStart: 09-21-2024 End: 23-03-3466Fcxqtenjomyq care manage srvc 14 day dischargeDshila Radha Myersaly DO Work Phone: [facility] Internal Medicine - Family MedicineComment on above:Severe anemia (Primary Dx); Lymphadenopathy, inguinal; Ex-cigarette smoker; Hyperglycemia; Special screening for malignant neoplasm of colonStart: 09-21-2024 End: 08-29-6743rnekrnepwdRANXYK G [facility] Ambulatory PPGStart: 09-12-2024 End: 68-45-8199Rdlmlghqk encounterDakarla Cha CMAProMedica Physicians Pulmonary/Sleep MedicineStart: 09-08-2024 End: 50-97-7247Ytqknnhng encounterKelmatt [facility] SunsetMedica Call CenterComment on above:Consult (Right pleural effusion concern for malignancy)Start: 09-08-2024 End: 81-24-3440Kjigsnzesc and management of inpatientMICHAEL W SAADProMedica Quebradillas HospitalStart: 09-07-2024 End: 86-09-5318Vjjdynrph department patient visitPAUL R WALKERProMedica Apple Grove HospitalStart: 09-06-2024 End: 34-64-5744afwwzfqrewERYVZF Radha MYERSLONGProMedica Quebradillas HospitalStart: 09-06-2024 End: 44-19-2255Tidztthxz encounterDolormumtaz GradyProMedica Call CenterComment on above:CRITICAL LABStart: 09-06-2024 End: 63-48-1374Tfftsb outpatient visit 25 minutesDewey Radha Myersaly DO Work Phone: [facility] Internal Medicine - Family MedicineComment on above:Memory loss (Primary Dx); Hot flashes; Cigarette smokerStart: 09-06-2024 End: 97-83-1013dajtlijfgiCTZAYFINTEGRIS [facility] PPGStart: 07-23-2024 End: 71-41-0557Ihritdpvq encounterLouiswill Victorvladimir CULPAdena Pike Medical Center Phys[facility] Internal Medicine [facility] Barrowtart: 06-29-2024 End: 13-57-3333Xegqti OnlyPatrickemilie Enriquez DO Work Phone: [facility] Internal Medicine [facility] Barrowtart: 06-25-2024 End: 68-05-1452cyuposehgqVWSSVH Radha [facility] Hospitaltart: 06-25-2024 End: 97-64-4197Plcxuos encounter procedureDewey Enriquez DO Work Phone: [facility] Physicians Internal Medicine - [facility] EglestonComment on above:Welcome to Medicare preventive visit (Primary Dx); Screening for depression; Screening for heart disease; Colon cancer screening declined; Prostate cancer screening declinedStart: 06-25-2024 End: 70-89-0522Qsrcfam encounter statusDewey Enriquez DO Work Phone: [facility] Work Phone: Start: 06-25-2024 End: 26-69-3204wmfxbqgbiqZNSMTTINTEGRIS [facility] PPGStart: 15-22-8917Onwqwfihq for general adult medical examination without abnormal findingsDEWEY [facility] PPGStart: 12-14-2017 End: 57-52-1241AgdxtzslaoPAWKGW [facility]ENTERNGFacility:UTMCStart: 10-19-2017 End: 49-99-3813DrabuhnromKECUNB FURNGFacility:UTMCStart: 10-17-2017 End: 41-13-0264YzrojzrhhfLAHCOB FURNGFacility:UTMCStart: 08-31-2017 End: 64-20-1434HoqoafoytjUILPLR FURNGFacility:UTMCStart: 08-03-2017 End: 89-88-8458EpewplqgdjADYVSEMJFKY SANFORDFacility:UTMCStart: 07-14-2017 End: 41-87-6404Dlkbmomcha and management of [facility] Facility[facility]tart: 07-13-2017 End: 04-12-6514AudfvrdpasCJDK HAYFacility:H1 Procedures DateProcedureProcedure DetailPerforming ClinicianStart: 38-83-2498Mzloh depression screening assessmentDennis Furlong DO Work Phone: Start: 74-40-1103Kbyrobvfnj bone marrow biopsies & aspirationEmiliano Taylor MD Work Phone: Start: 65-75-5990Sjfyp depression screening assessment Dewey Furlong DO Work Phone: Start: 48-90-2129Dowsk depression screening assessment Dewey Furlong DO Work Phone: Start: 43-12-3177Hfifwb-up visitFollow-upUNIVERSITY HOSPITALS PORTAGE MEDICAL CENTERJAC STUART Start: 49-99-7022Cwtgf depression screening assessmentDennis Furlong DO Work Phone: Start: 01-98-9801Ftika depression screening assessment Dewey Furlong DO Work Phone: Start: 11-23-9313Dahgut-up visitFollow-Novant HealthOLIVIA G [facility] MED[facility] CENTERNGStart: 09-77-1879Dgnhs depression screening assessmentDennis Furlong DO Work Phone: Start: 13-42-2632TCSKVRZFD OF INT FIX INTO R TIBIA, PERC APPROACHCHRISTOPHER EL CAJONStart: 77-41-3417TAUWFJKKYG RIGHT TIBIA WITH INTRAMED FIX, OPEN APPROACHCHRISTOPHER EL CAJONStart: 38-61-8112CJAHHOWGXV RIGHT TIBIA, EXTERNAL APPROACHRISTOPHER EL CAJON Plan of Treatment DateCare ActivityDetailAuthorStart: 51-64-9532XTN vaccine (adult) (1 - 1-dose 75+ series)RSV vaccine (adult) (1 - 1-dose 75+ series)[facility]Start: 25-56-1090Jagpf panelCholesterolMetroHealthStart: 56-94-2070QQxV,Tdap and Td Vaccines (2 - Td or Tdap)DTaP,Tdap and Td Vaccines (2 - Td or Tdap)[facility] SystemStart: 44-60-0024LBoS/Tdap/Td Vaccines (2 - Td or Tdap)DTaP/Tdap/Td Vaccines (2 - Td or Tdap)[facility]Start: 03-26[facility]2026 Diabetes mellitus screeningDiabetes ScreeningLutheran Hospital Start: 54-31-7262Asfdu BMI ScreeningAdult BMI ScreeningChildren's Hospital for Rehabilitation System Start: 73-08-7457Kkljlagnsv ScreeningDepression ScreeningChildren's Hospital for Rehabilitation System Start: 05-96-5027Rudb Risk ScreeningFall Risk ScreeningChildren's Hospital for Rehabilitation System Start: 94-24-4946Jyoncmw ScreeningTobacco ScreeningChildren's Hospital for Rehabilitation SystemStart: 73-81-5038Uxjsv BMI ScreeningAdult BMI ScreeningChildren's Hospital for Rehabilitation SystemStart: 21-02-0473Vwpwfsiqrz ScreeningDepression ScreeningChildren's Hospital for Rehabilitation SystemStart: 92-80-2655Pbfo Risk ScreeningFall Risk ScreeningChildren's Hospital for Rehabilitation SystemStart: 50-18-3124Lxabszn ScreeningTobacco ScreeningKettering Health Behavioral Medical Centerca [facility] SystemStart: 36-86-7304Wsvrr BMI ScreeningAdult BMI ScreeningChildren's Hospital for Rehabilitation SystemStart: 76-30-5277Gkyxcoiluv ScreeningDepression ScreeningChildren's Hospital for Rehabilitation SystemStart: 07-90-2211Ftfe Risk ScreeningFall Risk ScreeningChildren's Hospital for Rehabilitation SystemStart: 87-57-5337Rkkffbr ScreeningTobacco ScreeningKettering Health Behavioral Medical Centerca [facility] SystemStart: 37-44-8871Qzdqc BMI ScreeningAdult BMI ScreeningKettering Health Behavioral Medical Centerca [facility] SystemStart: 60-36-7014Fgxejok ScreeningTobacco ScreeningKettering Health Behavioral Medical Centerca [facility] SystemStart: 56-46-8392Xtjhx BMI ScreeningAdult BMI ScreeningKettering Health Behavioral Medical Centerca [facility] SystemStart: 32-69-6343Bcxlhqwlzl ScreeningDepression ScreeningChildren's Hospital for Rehabilitation SystemStart: 88-69-6116Rpyt Risk ScreeningFall Risk ScreeningChildren's Hospital for Rehabilitation SystemStart: 43-86-2285Xzgczeu ScreeningTobacco ScreeningChildren's Hospital for Rehabilitation SystemStart: 34-54-7154Pnsus BMI ScreeningAdult BMI ScreeningProKettering Memorial Hospitalca Health SystemStart: 81-04-0979Zzktwnp ScreeningTobacco ScreeningChildren's Hospital for Rehabilitation SystemStart: 04-60-4541Oyppk BMI ScreeningAdult BMI ScreeningProMemorial Hospital SystemStart: 78-93-0256Nennkoaqsy ScreeningDepression ScreeningProMemorial Hospital SystemStart: 06-41-2311Yfmn Risk ScreeningFall Risk ScreeningProMemorial Hospital SystemStart: 98-26-5291Wsujylf ScreeningTobacco ScreeningChildren's Hospital for Rehabilitation SystemStart: 92-66-3251Yhvrfjxri for malignant neoplasm of colonColon Cancer Screening 3 Year CologuardChildren's Hospital for Rehabilitation SystemComment on above:Postponed from 10/07/2003 (Patient Refused)Start: 07-08-2025 End: 75-39-9596Rpyrmqm encounter vcexjgacv57/22/2025 9:00 AM EST Office Visit [facility] [address] [place] [address] Dewey Enriquez, [address] [facility], [place] [address] [facility] - Family MedicineStart: 50-00-0790Waxws BMI ScreeningAdult BMI ScreeningChildren's Hospital for Rehabilitation SystemStart: 77-68-7262Cnjhxufsqz ScreeningDepression ScreeningChildren's Hospital for Rehabilitation SystemStart: 14-56-2877Ewlf Risk ScreeningFall Risk ScreeningChildren's Hospital for Rehabilitation SystemStart: 12-09-2025Medicare Annual Wellness VisitMedicare Annual Wellness VisitChildren's Hospital for Rehabilitation SystemStart: 78-96-9918Wwmsuch ScreeningTobacco ScreeningChildren's Hospital for Rehabilitation SystemStart: 23-36-1994Ulvjtf wellness visitAnnual Wellness Visit (G0438)[facility]HealthStart: 04-30-2025 End: 20-63-9839Fbftcnugljjo consultation with qndhnxe5504/30/2025 11:00 AM EDT Telemedicine [facility] [address] [place] [address] [address] [place] [address] [place] [address] [address] [place], [place] [id number] [facility] Hospitaltart: 61-76-4989BTXNR-19 Vaccine (#1)COVID-19 Vaccine (#1)[facility] HospitalStart: 49-14-1195Fbwbgdpwy vaccinationInfluenza Vaccine (#1)[facility] Start: 03-26-2025 End: 14-55-6837QZN DNA Type [facility] Work Phone: Comment on above:Expected: 03/26/2025 (Approximate), Expires: 03/26/2026Start: 03-26-2025 End: 88-06-1177ZMB HR Type, BuccalLutheran Hospital Work Phone: Comment on above:Expected: 03/26/2025 (Approximate), Expires: 03/26/2026Start: 03-26-2025 End: 42-92-2598MOC Transplant Antibody [facility] Service Area Work Phone: comment on above:Expected: 03/26/2025 (Approximate), Expires: 03/26/2026Start: 75-22-8387Vvnicupqo vaccinationChildren's Hospital for Rehabilitation System Start: 03-12-2025 End: 10-54-5288Eywfdsx encounter fkhojeknh09/26/2025 11:30 AM EDT Appointment [facility] Oncology Medical [address] [place] [address] Ramo Taylor MD [address] [place] [address] [facility] Oncology MedicalStart: 03-07-2025 End: 52-29-6788Cvxmymq encounter havmukbrm78/21/2025 10:00 AM EDT Office Visit [facility] [address] [facility] [place] [address] Dewye Enriquez, DO [address] [facility], [place] [address] [facility] - Family MedicineStart: 02-20-2025 End: 90-42-9244Jrolahi encounter pgifeijxh73/06/2025 11:00 AM EDT Appointment [facility] Radiology CT [address] [place] [address] [facility] Radiology CTStart: 02-12-2025 End: 86-12-5542LBX panel - Blood by Automated countCOMPLETE BLOOD COUNT Lab STAT Abnormal findings on diagnostic imaging of other specified body structures Expected: 02/12/2025, Expires: 02/12/2026MetroHealthComment on above:Expected: 02/12/2025, Expires: 02/12/2026Start: 02-12-2025 End: 95-37-4294XVZ W Auto Differential panel - BloodCOMPLETE BLOOD COUNT W/DIFF Lab STAT Pancytopenia Myelofibrosis (HCC) MDS (myelodysplastic syndrome) (HCC) Expected: 02/12/2025 (Approximate), Expires: 02/12/2026MetroHealthComment on above:Expected: 02/12/2025 (Approximate), Expires: 02/12/2026Start: 02-12-2025 End: 63-69-5179Altotplw chemistry procedureMISCELLANEOUS SEND OUT TEST Lab STAT Pancytopenia Myelofibrosis (HCC) MDS (myelodysplastic syndrome) (HCC) Expected: 02/12/2025 (Approximate), Expires: 02/12/2026MetroHealthComment on above: Expected: 02/12/2025 (Approximate), Expires: 02/12/2026Start: 02-12-2025 End: 66-14-4084MZ INTERVENTIONAL RADIOLOGY PROCEDURE SERVICEXA INTERVENTIONAL RADIOLOGY PROCEDURE SERVICE Imaging Routine Pancytopenia Myelofibrosis (HCC) MDS (myelodysplastic syndrome) (HCC) Expected: 02/12/2025, Expires: 02/12/2026[facility]ITALZen[facility] Work Phone: Comment on above:Expected: 02/12/2025, Expires: 02/12/2026Start: 02-05-2025 End: 45-71-3823Lyrxbqe encounter /22/2025 11:00 AM EDT Appointment [facility] Oncology Medical [address] [place] [address] Ramo Taylor MD [address] [place] [address] [facility] Oncology MedicalStart: 01-21-2025 End: 78-92-5931Nsfxlhq encounter retiouekp35/07/2025 10:00 AM EDT Appointment [facility] Oncology Medical [address] [place] [address] [facility] Oncology MedicalStart: 01-15-2025 End: 37-99-4380Avhkzky encounter uepqmkczv70/01/2025 11:00 AM EDT Appointment [facility] Oncology Medical [address] [place] [address] Ramo Taylor MD [address] [place] [address] [facility] Oncology MedicalStart: 01-03-2025 End: 39-59-5920Wwqwvxm encounter oqqnunild12/19/2025 11:00 AM EDT Office Visit [facility] - Medical Oncology [address] [place] [address] Keyur Stuart MD [facility] [place] [address] [facility] - Medical OncologyStart: 16-98-0967Ljnycamln aortic aneurysm screeningAbdominal Aortic Aneurysm (AAA) ScreenChildren's Hospital for Rehabilitation SystemComment on above:Postponed from 10/07/2023 (Patient Refused)Start: 12-05-2024 End: 77-24-7412HL Chest PA and LateralX-ray chest 2 views Imaging Routine Pleural effusion, right Expected: 12/05/2024, Expires: 12/05/2025[facility] Work Phone: Comment on above:Expected: 12/05/2024, Expires: 12/05/2025Start: 12-05-2024 End: 40-62-8153Tdcajni encounter xwitabtpx74/21/2025 9:30 AM EDT Office Visit [facility] [address] [place] [address] Dewey Enriquez, [address], [place] [address] [facility] - Family MedicineStart: 11-01-2024 End: 29-23-6766LZ Chest PA and LateralX-ray chest 2 views Imaging Routine Pleural effusion, right Expected: 11/01/2024, Expires: 11/01/2025[facility] Work Phone: Comment on above:Expected: 11/01/2024, Expires: 11/01/2025Start: 10-25-2024 End: 97-92-3649Tofcbou encounter crzuoxeta94/10/2025 2:00 PM EDT Office Visit [facility] [address] [place] [address] Wen Hampton, DO [address] [address] [facility]/Sleep MedicineStart: 16-82-6425Oiaerlmqe vaccinationInfluenza Vaccine [facility] SystemComment on above:Postponed from 03/18/2024 (Patient Refused)Start: 10-04-2024 End: 80-67-7823Kcwajkf encounter yqztvxcka81/20/2025 10:30 AM EDT Office Visit [facility] - Medical Oncology [address] [place] [address] Keyur Stuart MD [address] [place] [address] [address] [place] [address] [facility] - Medical OncologyStart: 46-04-3322Ftaakpk to Medicare Visit (G0402)Welcome to Medicare Visit (G0402)[facility]HealthStart: 09-06-2024 End: 97-25-6742Svdzomh encounter cvlljsoag74/20/2025 10:30 AM EST Office Visit [facility] [address] [place] [address] Dewey Enriquez DO [address] [facility], [place] [address] [facility] - Family MedicineStart: 89-15-8644Mgrzwwwzb aortic aneurysm screeningAbdominal Aortic Aneurysm (AAA) ScreenMercy Memorial Hospital Comment on above:Postponed from 10/07/2023 (Patient Refused)Start: 07-18-2024 Administration of varicella zoster vaccineZoster (Shingles) Vaccine (1 of 2) [facility] HospitalComment on above:Postponed from 2008 (Patient Refused)Start: 70-82-7105Pqzfvuiow for malignant neoplasm of colonColon Cancer Screening 3 Year CologuardMercy Memorial HospitalComment on above:Postponed from 10/07/2003 (Patient Refused)Start: 84-43-7694XHAOR-19 Vaccine ( season)COVID-19 Vaccine ( season)[facility]HealthStart: 10-07-2023 Abdominal aortic aneurysm screeningMission Hospitaltart: 2018 Hepatitis B (HBV) Vaccine (optional start 60+ years)Hepatitis B (HBV) Vaccine (optional start 60+ years)[facility]HealthStart: 08-40-8356SJV High Risk: (Elderly (60+) or Population) (1 - Risk 60-74 years 1-dose series)RSV High Risk: (Elderly (60+) or Population) (1 - Risk 60-74 years 1-dose series) [facility]Start: 00-26-3222AGG vaccine (adult) (1 - Risk 60-74 years 1-dose series)RSV vaccine (adult) (1 - Risk 60-74 years 1-dose series)[facility]HealthStart: 55-31-3881Scfughfwuvezle of varicella zoster vaccine Zoster (Shingles) Vaccine (1 of 2)[facility] SystemStart: 2008 Pneumococcal vaccinationPneumococcal Vaccine(s) (50+ yrs) (1 of 1 - PCV) [facility]HealthStart: 71-37-6478Rlonvagf specific antigen measurementPSA Prostate Cancer ScreeningUnMary Rutan HospitalStart: 21-27-5644Inyuailds for malignant neoplasm of lungLung Cancer ScreeningLutheran Hospital Start: 29-99-9355Obmdlozj (RZV) Vaccine (1 of 2)Shingles (RZV) Vaccine (1 of 2) [facility]HealthStart: 75-23-6703Rpasnsiea for malignant neoplasm of colonChildren's Hospital for Rehabilitation SystemStart: 14-07-1721Ukcwn panelCholesterolMetroHealthStart: 1977 Administration of varicella zoster vaccineZoster (Shingles) Vaccine (1 of 2) [facility] SystemStart: 02-06-6328Bidljqqto A (HAV) Vaccine (optional start 19+ years)Hepatitis A (HAV) Vaccine (optional start 19+ years)[facility] Start: 74-76-9000Fvwdudujoulu vaccinationMetroHealthStart: 33-58-8665Hsiduyei (RZV) Vaccine (1 of 2)Shingles (RZV) Vaccine (1 of 2)[facility]HealthStart: 63-87-3152Ebegfr Vaccines (1 of 2)Zoster Vaccines (1 of 2)[facility] HospitalStart: 90-34-0724Kperz BMI ScreeningAdult BMI ScreeningChildren's Hospital for Rehabilitation SystemStart: 56-86-5855Tabyubedi C screeningMetroHealthStart: 1976 Tdap BoosterTdap BoosterMetroHealthStart: 54-27-9306Soysgal ScreeningTobacco ScreeningChildren's Hospital for Rehabilitation SystemStart: 17-47-1116QJIFK-19 Vaccine (#1)COVID-19 Vaccine (#1)[facility]HealthStart: 00-77-2985AJP Vaccines (1 of 1 - Standard series) MMR Vaccines (1 of 1 - Standard series)[facility]: 09-71-1458Rbrsur wellness visitWelcome to Medicare VisitUnKettering Health Miamisburg: 20-26-9092Smodf panelLipid PanelUnKettering Health Miamisburg: 97-35-2286Lafnldzun for malignant neoplasm of colonMetroHealth Start: 46-23-0895Rwzeqti CounselingTobacco CounselingProKettering Memorial HospitalMyCrowd System End: 11-93-0915Kinnh metabolic 2000 panel - Serum or PlasmaBasic Metabolic Panel Lab Routine Hyperglycemia 1 Occurrences starting 09/21/2024 until 09/21/2025 PlanetEyeComment on above:1 Occurrences starting 09/21/2024 until 09/21/2025one marrow samplingBONE MARROW BIOPSY Anatomic Pathology Routine Pancytopenia Ordered: 01/21/2025THE [employer] Work Phone: Comment on above:Ordered: 01/21/2025 End: 36-87-4036TPX panel - Blood by Automated countCBC without diff Lab Routine Memory loss Hot flashes 1 Occurrences starting 09/06/2024 until 09/06/2025 PlanetEyeComment on above:1 Occurrences starting 09/06/2024 until 09/06/2025 End: 38-75-9562PKA panel - Blood by Automated countCBC Lab Routine Severe anemia 1 Occurrences starting 09/21/2024 until 09/21/2025[employer] Work Phone: Comment on above:1 Occurrences starting 09/21/2024 until 09/21/2025 End: 71-92-0027AOZ W Auto Differential panel - BloodCBC with auto diff Lab Routine Primary myelofibrosis ([facility]-HCC) 1 Occurrences starting 10/04/2024 until 10/04/2025[employer] Work Phone: Comment on above:1 Occurrences starting 10/04/2024 until 10/04/2025 End: 05-12-2232Oueqmaukpbfuv metabolic 2000 panel - Serum or PlasmaComprehensive metabolic panel Lab Routine Screening for heart disease 1 Occurrences starting 06/25/2024 until 06/25/2025[employer] Work Phone: Comment on above:1 Occurrences starting 06/25/2024 until 06/25/2025 End: 44-46-6944RW guidance for percutaneous biopsy of BoneTHE [employer] Work Phone: Comment on above:1 Occurrences starting 02/20/2025 until 02/20/2025 End: 71-41-9048Lszfgyndtmlmsy vitamin b-12Vitamin B12 Lab Routine Memory loss Hot flashes 1 Occurrences starting 09/06/2024 until 09/06/2025[facility]re City HospitalHatsize SystemComment on above:1 Occurrences starting 09/06/2024 until 09/06/2025 End: 30-38-1431Agvjsxmfsyiawt (EPO), SErythropoietin (EPO), S Lab Routine Primary myelofibrosis ([facility]-HCC) 1 Occurrences starting 10/04/2024 until 10/04/2025[facility] City HospitalFerric SemiconductorComment on above:1 Occurrences starting 10/04/2024 until 10/04/2025 End: 03-66-6141Yqxoykaytt A1c/Hemoglobin.total in BloodHemoglobin A1c Lab Routine Hyperglycemia 1 Occurrences starting 09/21/2024 until 09/21/2025 [facility] HospitalAudigenceComment on above:1 Occurrences starting 09/21/2024 until 09/21/2025 End: 78-63-6537Jhvyh panelLipid panel Lab Routine Screening for heart disease 1 Occurrences starting 06/25/2024 until 06/25/2025[facility] City HospitalFerric SemiconductorComment on above:1 Occurrences starting 06/25/2024 until 06/25/2025 End: 27-16-2906Hjvzzzhrews timePROTHROMBIN TIME AND INR Lab STAT Pancytopenia Myelofibrosis (HCC) MDS (myelodysplastic syndrome) (HCC) Abnormal findings on diagnostic imaging of other specified body structures 1 Occurrences starting 02/12/2025 until 02/12/2026MetroHealthComment on above:1 Occurrences starting 02/12/2025 until 02/12/2026Surgical pathology procedure*SPECIMEN FOR SURGICAL PATHOLOGY Anatomic Pathology Routine Pancytopenia Myelofibrosis (HCC) 02/20/2025 12:23 PM EDTTHE [facility] Work Phone: End: 01-62-4160GZL with ReflexTSH with Reflex Lab Routine Memory loss Hot flashes 1 Occurrences starting 09/06/2024 until 09/06/2025[facility] Work Phone: Comment on above:1 Occurrences starting 09/06/2024 until 09/06/2025 Immunizations Immunization DateImmunizationNotesCare TerhcrxsCmzatakl23-35-9400MAAPT-60, mRNA, LNP-S, PF, 30 mcg/0.3 mL doseRhona Atwood MD Work Phone: [facility] Work Phone: [phone]) [phone]NM-88, mRNA, LNP-S, PF, 30 mcg/0.3 mL doseRhona Atwood MD Work Phone: [facility] Work Phone: [phone]) [phone]DA-75, mRNA, LNP-S, PF, 30 mcg/0.3 mL doseRhona Atwood MD Work Phone: [facility] Work Phone: [phone]) [phone]hoab toxoid, reduced diphtheria toxoid, and acellular pertussis vaccine, adsorbedRhona Atwood MD Work Phone: [facility] Work Phone: Payers DatePayer CategoryPayerPolicy [id number]-pay2025Medicare (Managed Care)[id number] 2024Medicare [id number] [id number] 2013UnknownHEALTHSCOPE BENEFITS [id number] [id number] 2.16.840.1.890049.3.57[id number] 2.16840.1.205042.3.57[id number] 2.16840.1.583341.3.57[id number] 2.16.840.1.397263.3.57[id number] 2.16.840.1.882904.3.57[id number] 2.16840.1.904823.3.579.2.545663-82-7286Hvjgesh969098261 2.16.840.1.492009.3.57[id number] 2.16.840.1.740060.3.57[id number] 2.16840.1.891198.3.57[id number] 2.16840.1.977460.3.57[id number] 2.16840.1.744116.3.57[id number] 2.16840.1.439627.3.57[id number] 2.16840.1.634325.3.57[id number] 2.16840.1.972208.3.57[id number] 2.840.1.843114.3.57[id number] 2.840.1.815036.3.579.[id number] 2.840.1.871687.3.57[id number] 2.840.1.132922.3.57[id number] 2.840.1.194880.3.57[id number] 2.840.1.491856.3.57[id number] 2.840.1.131289.3.57[id number] 2.840.1.682514.3.57[id number] 2.840.1.344476.3.579.[id number] 2.840.1.914293.3.57[id number] 2..0.1.042295.3.57[id number] 2..0.1.94[id number] 2.0.1.682627.3.579.2.531 [id number] 2.0.1.214248.3.579.2.531 Social History DateTypeDetailFacilityStart: 42-15-6870Bfkrpgf smoking status NHISSmokes tobacco dailyProMemorial Hospital SystemStart: 06-25-1979 End: 29-41-9907Piwzaxc of tobacco useCigarette SmokerChildren's Hospital for Rehabilitation System Start: 06-25-2024 End: 32-24-4676Qsoxnemvdr smoked current (pack per day) - Rauxsuvx0RqzKmweie Health SystemStart: 06-25-2024 End: 04-80-5392Qsadifp use and exposureSmokeless tobacco non-userChildren's Hospital for Rehabilitation SystemStart: 06-26-2024 End: 64-10-0187Pvpsawuow beverage intakeCurrent drinker of alcohol (finding) [facility] SystemStart: 06-25-2024 End: 89-63-8448RCQ UtilitiesChildren's Hospital for Rehabilitation SystemHas the [employer], gas, oil, or water Flowline threatened to shut off services in your home in past 12MoNo [facility] Health SystemDo you belong to any clubs or organizations such as judaism groups, unions, fraternal or athletic groups, or school groups?Yes [facility] Health SystemAre you now , , , , never or living with a partner?MarriedProW. D. Partlow Developmental Center Health SystemHow often to you have a drink containing alcohol?4 or more times a weekProW. D. Partlow Developmental Center Health SystemHow many standard drinks containing alcohol do you have on a typical day?3 or 4 [facility] SystemHow often do you have 6 or more drinks on 1 occasion? NeverChildren's Hospital for Rehabilitation SystemStart: 39-05-2234Pdn hard is it for you to pay for the very basics like food, housing, medical care, and heatingNot hard at all [facility] Health SystemDo you feel stress - tense, restless, nervous, or anxious, or unable to sleep at night because yourmind is troubled all the time - these days [OSQ]Not at allAdena Pike Medical Center Wongnai SystemStart: 47-20-3351Usvgsnc Comment4 or 5 a nightKettering Health Behavioral Medical CenterMyCrowd SystemStart: 80-81-9997Mgw assigned at birthNot on fileProMedica Wongnai SystemStart: 02-20-2015 End: 93-29-8567MbyHsoj (finding)[facility] Health SystemStart: 09-08-2024 End: 82-95-9177Axdwvxb smoking status NHISEx-smokerMission Hospitaltart: 06-25-1979 End: 56-41-5964Jjpttmr of tobacco useCurrent smokerMercy Memorial Hospital Tobacco smoking status NHISUnknown if ever smokedMetroHealthStart: 06-34-7839Zax Assigned At [facility] Private Hospitaltart: 98-89-5308Rzixdey Comment1 a nightAdena [facility] Center Health SystemHow many standard drinks containing alcohol do you have on a typical day?1 or 2ProMedeast alabama medical center Health SystemHow hard is it for you to pay for the very basics like food, housing, medical care, and heatingSomewhat [facility] Work Phone: How often do you need to have someone help you when you read instructions, pamphlets, or other written material from your doctor or pharmacy [SILS][facility] Work Phone: Goals DatePatient GoalDesired Activity/StatePersonal health goalComment on above: Evaluation of progress towards goal: Current Discharge Plan; home with spouse, self care, denies needs at this time. Functional Status ZmofYbywlxvpsvNpcfzqEbzwjxpw13-22-6926Yaeovlapyn statusLutheran Hospital10-14-2025UnMary Rutan Hospital Work Phone: [phone]) [phone]oud Health Questionnaire 2 item (PHQ-2) [Reported][facility] Work Phone: [phone]) [phone] score [AUDIT-C]4 03/26/2025 4:00 PM EDT Seamus Gayle, MICHAELUnMary Rutan Hospital Work Phone: 1(596) [phone]stoa score [AUDIT-C]4 03/07/2025 11:44 AM EDT Dewey Enriquez DOPReedsburg Area Medical CenterUnMary Rutan Hospital Work Phone: Clinical Notes 06-25-2024 to 04-30-2025 Note Date & VkryBlqlOpenuzlw61-15-5712 Evaluation + Plan note* Assessment & Plan Note - Rhona Atwood MD - 04/30/2025 11:00 AM EDTAssociated Problem(s): Primary myelofibrosis (Multi) Continues to require transfusions about every other week. Reviewed donor search which showed that he has matched sibling. Additional counseling about transplant process provided. He and his family are still working out potential post transplant care provider plan, and would like to talk some more withBMT coordinator to review what will be needed. Once care provider plan is finalized, we can move to schedule his transplant evaluation. In interim, he will continue local care with Dr. oHpper. [facility] Work Phone: [phone]) 977-280010-14-2025 History of Present illness Narrative* Rhona Atwood MD - 04/30/2025 11:00 AM EDT Images from the original note were not included. Patient ID: Penny Ordaz is a 64 y.o. male. ASSESSMENT & PLAN Oncology History Primary myelofibrosis (Multi) 09/07/2024 Initial Diagnosis DX: Primary myelofibrosis - Overt primary myelofibrosis Presented with anemia, circulating blasts, and splenomegaly BONE MARROW (09/10/2024) Markedly hypercellular, MF-2 with patchy collagen fibrosis, no increased blasts or CD34+ by IHC, aspirate dry tap KARYOTYPE: 47,XY,+8[16]/46,XY[4] PB MYELOID NGS (12/25/24): Jak2 V617F (75.6%), TET2 Q1627 (43.8%), TP53 M384I VUS (48.9%) GIPSS intermediate-2 DIPSS high DIPSS+ high MIPSS70+v2.0 rvery high 10/30/2024 - Molecular Therapy Momelotinib 200 mg daily 10/30/2024 - Supportive Treatment TERESITA Procrit 01/29/2025 - Supportive Treatment Luspatercept Assessment & Plan Primary myelofibrosis (Multi) Continues to require transfusions about every other week. Reviewed donor search which showed that he has matched sibling. Additional counseling about transplant process provided. He and his family are still working out potential post transplant care provider plan, and would like to talk some more withBMT coordinator to review what will be needed. Once care provider plan is finalized, we can move to schedule his transplant evaluation. In interim, he will continue local care with Dr. Hopper. SUBJECTIVE History of Present Illness The patient presents via virtual visit for evaluation of anemia. He reports general well-being except for leg stiffness during walks and mild postprandial nausea, likely due to medication change. His appetite is reduced, but he continues to consume ice cream. He is considering a bone marrow transplant from his sister, a full match with emphysema. He is alsocontemplating tests for his lungs, heart, and liver. He has psoriasis and occasionally gets a cold in winter, lasting about 3 days. He is concerned about post-transplant caregiver availability due tohis sister's health issues. His blood count was 5.8 during his visit to Dr. Cadena today, necessitating a return for a 2-unit blood transfusion. His last transfusion was 2 weeks ago. FAMILY HISTORY His sister has emphysema. OBJECTIVE Physical Exam Constitutional: General: He is not in acute distress. Appearance: He is not ill-appearing. Eyes: General: Right eye: No discharge. Left eye: No discharge. Conjunctiva/sclera: Conjunctivae normal. Skin: Findings: No rash. Neurological: Mental Status: He is alert. Psychiatric: Mood and Affect: Mood normal. Virtual or Telephone Consent An interactive audio and video telecommunication system which permits real time communications between the patient (at the originating site) and provider (at the distant site) was utilized to providethis telehealth service. Verbal consent was requested and obtained from Penny Ordaz on this date, 04/30/25 for a telehealth visit and the patient's location was confirmed at the time of the visit. This medical note was created with the assistance of artificial intelligence (AI) for documentationpurposes. The content has been reviewed and confirmed by the healthcare provider for accuracy and completeness. Patient consented to the use of audio recording and use of AI during their visit. Rhona Atwood MD [facility] Work Phone: [phone]) 606-436510-14-2025 Miscellaneous Notes* Assessment & Plan Note - Rhona Atwood MD - 04/30/2025 11:00 AM EDTAssociated Problem(s): Primary myelofibrosis (Multi) Continues to require transfusions about every other week. Reviewed donor search which showed that he has matched sibling. Additional counseling about transplant process provided. He and his family are still working out potential post transplant care provider plan, and would like to talk some more withBMT coordinator to review what will be needed. Once care provider plan is finalized, we can move to schedule his transplant evaluation. In interim, he will continue local care with Dr. Hopper. documented in this [facility] Work Phone: [phone]) 496-583409-09-2025 Evaluation + Plan note* Assessment & Plan Note - Rhona Atwood MD - 03/26/2025 2:00 PM EDTAssociated Problem(s): Primary myelofibrosis (Multi) Referred today with relatively recent diagnosis of primary myelofibrosis. I counseled the patient regarding the diagnosis of myelofibrosis including the characteristic yard truck driver mutations (Jak2 V617F inthis case) and does not have high risk molecular mutations. I recommended that the patient remain active with daily exercise, follow healthy diet, abstain from any tobacco use, and optimize cardiovascular risk factors. Per MIPSS70+ v2.0, the patient has very high risk disease, with expected median overall survival that was 1.8 years in studies. Treatment goals in MF included reduction in thromboembolic risks, spleen size, bone marrow failure, and overall symptom burden. He has been on a combination of momelotinib, TERESITA, and luspatercept and remains transfusion dependent, although he feels likehis needs have reduced last few weeks. Given his epo level over 500 and he has been receiving TERESITA since October, he is unlikely to respond to TERESITA, and I would recommend discontinuing. I do not have sufficient records to comment on whether his anemia is benefiting from luspatercept, so would defer to his local oncologist. I would recommend continuing his Jonah inhibitor, especially given his significant symptom burden which has improved with treatment. Finally, given his ongoing transfusion needs, he is at risk of iron overload. He has no history of iron deficiency, and I strongly recommend that his oral iron supplements be discontinued. In long range planning, we should consider allogeneic stem cell transplant. The role of allogeneic stem cell transplant?in the management of myelofibrosis was reviewed with Mr. Ordaz.? Transplant procedures,?general risk, and general?benefits were introduced.? The importance of adequate disease c ontrol,?optimization?of?other comorbid?illnesses, suitable donor availability,?and adequate caregiver support?were highlighted.? At this point,?I have recommended that we move forward with?a donor search.? The patient s HLA typing has been drawn.?He has 3 full siblings as potential related donors, and we will also initiate?active?unrelated donor and umbilical cord blood search.? The patient will continue with?therapy?to control his underlying disease, and we will?let them know how?the donor search?proceeds. Plan for virtual visit in mid April to review donor search. [facility] Work Phone: [phone]) [phone] History of Present illness Narrative* Rhona Atwood MD - 03/26/2025 2:00 PM EDT Images from the original note were not included. Patient ID: Penny Ordaz is a 64 y.o. male. Referring Physician: Alessandra Stoner MD [address] [place], [place] [id number] Primary Care Provider: No primary care provider on file. Assessment/Plan Assessment & Plan Primary myelofibrosis (Multi) Referred today with relatively recent diagnosis of primary myelofibrosis. I counseled the patient regarding the diagnosis of myelofibrosis including the characteristic yard truck driver mutations (Jak2 V617F inthis case) and does not have high risk molecular mutations. I recommended that the patient remain active with daily exercise, follow healthy diet, abstain from any tobacco use, and optimize cardiovascular risk factors. Per MIPSS70+ v2.0, the patient has very high risk disease, with expected median overall survival that was 1.8 years in studies. Treatment goals in MF included reduction in thromboembolic risks, spleen size, bone marrow failure, and overall symptom burden. He has been on a combination of momelotinib, TERESITA, and luspatercept and remains transfusion dependent, although he feels likehis needs have reduced last few weeks. Given his epo level over 500 and he has been receiving TERESITA since October, he is unlikely to respond to TERESITA, and I would recommend discontinuing. I do not have sufficient records to comment on whether his anemia is benefiting from luspatercept, so would defer to his local oncologist. I would recommend continuing his Jonah inhibitor, especially given his significant symptom burden which has improved with treatment. Finally, given his ongoing transfusion needs, he is at risk of iron overload. He has no history of iron deficiency, and I strongly recommend that his oral iron supplements be discontinued. In long range planning, we should consider allogeneic stem cell transplant. The role of allogeneic stem cell transplant?in the management of myelofibrosis was reviewed with Mr. Ordaz.? Transplant procedures,?general risk, and general?benefits were introduced.? The importance of adequate disease c ontrol,?optimization?of?other comorbid?illnesses, suitable donor availability,?and adequate caregiver support?were highlighted.? At this point,?I have recommended that we move forward with?a donor search.? The patient s HLA typing has been drawn.?He has 3 full siblings as potential related donors, and we will also initiate?active?unrelated donor and umbilical cord blood search.? The patient will continue with?therapy?to control his underlying disease, and we will?let them know how?the donor search?proceeds. Plan for virtual visit in mid April to review donor search. HISTORY History of Present Illness The patient is a male with primary myelofibrosis, psoriasis, and right leg pain. He was referred for a potential bone marrow transplant due to fatigue and abnormal blood work sinceAugust 2024. He receives blood transfusions biweekly, reports no night sweats or fevers, and has stable weight after a temporary loss. He tolerates Mounjaro well since October 2024, initially causingnausea. He takes iron, calcium, vitamin C, and vitamin B complex supplements, and started Procrit injections in December 2024. He is considering COVID-19 and influenza vaccines. 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 He has no children but two stepchildren, four sisters, and one brother. His mother of cancer at 44, and his father lived to 88 with heart trouble. He takes prochlorperazine for nausea, Crestor for cholesterol, and triamcinolone cream for psoriasis. He reports early satiety and significant fatigue, improved with current medications. He has regained weight and appetite, experiences leg pain attributed to arthritis from a previous fracture, and requires purified blood for transfusions. He enjoys snacks over large meals and is curious about bone m arrow transplant and post-transplant care. He has a history of psoriasis, flared up after starting Mounjaro. MPN SYMPTOM ASSESSMENT [0 (absent) - 10 (worst imaginable)] Fatigue past 24 HRS 7 Filling up quickly 8 Abdominal discomfort 4 Inactivity 10 Problems with concentration 5 Night sweats 0 Itching 0 Bone pain (not diffuse jt pain or arthritis) 0 Fever (>100F) 0 Unintentional weight loss over last 6 months: 5 Total Symptom Score 39 PAST SURGICAL HISTORY: Compound fracture of right leg and ankle on 07/13/2021, treated with pins, rods, and screws. Hospitalized for injuries, wore a boot for ankle fracture. SOCIAL HISTORY Quit smoking in September 2024. Drinks two alcoholic beverages nightly. 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 FAMILY HISTORY Mother of cancer at 44. Father lived to with heart trouble. One sister has COPD and diabetes, another has diabetes and emphysema, and another has high anxiety. Penny Ordaz reports that he quit smoking about 6 months ago. His smoking use included cigarettes. He started smoking about 40 years ago. He has a 40.2 pack- year smoking history. He has never usedsmokeless tobacco. He reports current alcohol use of about 2.0 standard drinks of alcohol per week. He has no history on file for drug use. Family History[1] Oncology History Primary myelofibrosis (Multi) 09/07/2024 Initial Diagnosis DX: Primary myelofibrosis - Overt primary myelofibrosis Presented with anemia, circulating blasts, and splenomegaly BONE MARROW (09/10/2024) Markedly hypercellular, MF-2 with patchy collagen fibrosis, no increased blasts or CD34+ by IHC, aspirate dry tap KARYOTYPE: 47,XY,+8[16]/46,XY[4] PB MYELOID NGS (12/25/24): Jak2 V617F (75.6%), TET2 Q1627 (43.8%), TP53 M384I VUS (48.9%) GIPSS intermediate-2 DIPSS high DIPSS+ high MIPSS70+v2.0 rvery high 10/30/2024 - Molecular Therapy Momelotinib 200 mg daily 10/30/2024 - Supportive Treatment TERESITA Procrit 01/29/2025 - Supportive Treatment Luspatercept Performance Status: Symptomatic; fully ambulatory Objective BSA: 1.84 meters squared BP 125/55 (BP Location: Left arm, Patient Position: Sitting, BP Cuff Size: Adult) Pulse 86 Temp37.4 C (99.3 F) (Temporal) Resp 16 Ht (S) 1.737 m (5' 8.39 ) Wt 70.5 kg (155 lb 6.4 oz) SpO2 100% BMI 23.36 kg/m Physical Exam Vitals reviewed. Constitutional: Appearance: Normal appearance. Eyes: Conjunctiva/sclera: Conjunctivae normal. Pupils: Pupils are equal, round, and reactive to light. Abdominal: Palpations: There is splenomegaly. Comments: 6 cm below LCM Skin: General: Skin is warm and dry. Findings: No rash. Psychiatric: Mood and Affect: Mood normal. Results Labs - Iron levels: 08/2024, Normal This medical note was created with the assistance of artificial intelligence (AI) for documentationpurposes. The content has been reviewed and confirmed by the healthcare provider for accuracy and completeness. Patient consented to the use of audio recording and use of AI during their visit. Rhona Atwood MD [1] Family History Problem Relation Name Age of Onset Cancer Mother Diabetes Sister Jeniffer COPD Sister Jeniffer COPD Sister Geri Anxiety disorder Sister Porsha Heart disease Brother Kei documented in this [facility] Work Phone: [phone]) 577-721209-09-2025 Instructions* Patient Instructions* Rhona Atwood MD - 03/26/2025 2:00 PM EDT Recommend stopping ferrous sulfate (iron pills) as you are at risk for iron overload given your chronic transfusions. Recommend stopping Procrit injections as these are rarely effective in patient with myelofibrosis. If luspatercept shots are helping reduce your transfusion needs, you may consider continuing these. Recommend getting routine vaccinations including influenza (annual), Covid (annual), RSV (one time), and pneumococcal (schedule dependent on type of vaccine). Your HLA typing was drawn today. We will see you in 4 weeks to review your donor search. Recommend continuing Ojjaara. Remember to eat small, frequent snacks and meals. Work to increase your walking to minimum of 30 minutes daily without breaks. Please work to reduce your alcohol use. documented in this [facility] Work Phone: [phone] Miscellaneous Notes* Assessment & Plan Note - Rhona Atwood MD - 03/26/2025 2:00 PM EDTAssociated Problem(s): Primary myelofibrosis (Multi) Referred today with relatively recent diagnosis of primary myelofibrosis. I counseled the patient regarding the diagnosis of myelofibrosis including the characteristic yard truck driver mutations (Jak2 V617F inthis case) and does not have high risk molecular mutations. I recommended that the patient remain active with daily exercise, follow healthy diet, abstain from any tobacco use, and optimize cardiovascular risk factors. Per MIPSS70+ v2.0, the patient has very high risk disease, with expected median overall survival that was 1.8 years in studies. Treatment goals in MF included reduction in thromboembolic risks, spleen size, bone marrow failure, and overall symptom burden. He has been on a combination of momelotinib, TERESITA, and luspatercept and remains transfusion dependent, although he feels likehis needs have reduced last few weeks. Given his epo level over 500 and he has been receiving TERESITA since October, he is unlikely to respond to TERESITA, and I would recommend discontinuing. I do not have sufficient records to comment on whether his anemia is benefiting from luspatercept, so would defer to his local oncologist. I would recommend continuing his Jonah inhibitor, especially given his significant symptom burden which has improved with treatment. Finally, given his ongoing transfusion needs, he is at risk of iron overload. He has no history of iron deficiency, and I strongly recommend that his oral iron supplements be discontinued. In long range planning, we should consider allogeneic stem cell transplant. The role of allogeneic stem cell transplant?in the management of myelofibrosis was reviewed with Mr. Ordaz.? Transplant procedures,?general risk, and general?benefits were introduced.? The importance of adequate disease c ontrol,?optimization?of?other comorbid?illnesses, suitable donor availability,?and adequate caregiver support?were highlighted.? At this point,?I have recommended that we move forward with?a donor search.? The patient s HLA typing has been drawn.?He has 3 full siblings as potential related donors, and we will also initiate?active?unrelated donor and umbilical cord blood search.? The patient will continue with?therapy?to control his underlying disease, and we will?let them know how?the donor search?proceeds. Plan for virtual visit in mid April to review donor search. [facility] Work Phone: [phone]) [phone] NoteSW spoke with following up on Dr. Craig's referral for an Allo transplant. Pt is scheduled to see Dr. Rhona Atwood at 2PM on [phone] option 1. SW spoke with Pt and his , Marla, to provide appointment information. Family expressed their understanding. SW will remain available. Willow ROQUE, CARLEEN [id number] [id number] Telephone encounter Note* Telephone Encounter - Willow Bond LSW - 03/21/2025 1:30 PM EDT MK spoke with following up on Dr. Craig's referral for an Allo transplant. Pt is scheduled to see Dr. Rhona Atwood at 2PM on [phone] option 1. SW spoke with Pt and his , Marla, to provide appointment information. Family expressed their understanding. SW will remain available. Willow ROQUE, CARLEEN [id number] [facility] Work Phone: [phone] Miscellaneous Notes* Telephone Encounter - Willow Bond LSW - 03/21/2025 1:30 PM EDT SW spoke with following up on Dr. Craig's referral for an Allo transplant. Pt is scheduled to see Dr. Rhona Atwood at 2PM on [phone] option 1. SW spoke with Pt and his , Marla, to provide appointment information. Family expressed their understanding. SW will remain available. Willow Varun SUPERVISOR P[employer]ERING, CHIEF CONTRACT OFFICER [id number] * Telephone Encounter - Ramo Taylor MD - 03/21/2025 1:12 PM EDT Images from the original note were not included. HEMATOLOGY AND MEDICAL ONCOLOGY [facility] I received a call from the patient's primary Oncologist, Dr. Martita Hopper from [facility].We discussed about the results of the two bone marrow biopsies that were taken at [facility] and also, I've explained the rationale behind the need for the patient to be evaluated at the or PSYCHIATRIC in order to be assessed for the possibility of an Allo SCT due to his diagnosis of Myelofibrosis. I connected with our team at [facility] and they have been working on get the patient's appointment with the transplant team at the . The referral team has been in communication with the patient and the initial appointment has been set up on 03/26/2025 (patient has been informed). Additional logistics, and determination will be done to ensure the patient has the appropriate and recommended clinical assessment with the Transplant Team at the . Commented as well with my attending Dr. Ronnie DO. Ramo Taylor MD Hematology and Medical Oncology Fellow [employer] [facility], [phone] documented in this [id number] Telephone encounter Note* Telephone Encounter - Ramo Taylor MD - 03/21/2025 1:12 PM EDT Images from the original note were not included. HEMATOLOGY AND MEDICAL ONCOLOGY [facility] I received a call from the patient's primary Oncologist, Dr. Martita Hopper from [facility].We discussed about the results of the two bone marrow biopsies that were taken at [facility] and also, I've explained the rationale behind the need for the patient to be evaluated at the or PSYCHIATRIC in order to be assessed for the possibility of an Allo SCT due to his diagnosis of Myelofibrosis. I connected with our team at [facility] and they have been working on get the patient's appointment with the transplant team at the . The referral team has been in communication with the patient and the initial appointment has been set up on 03/26/2025 (patient has been informed). Additional logistics, and determination will be done to ensure the patient has the appropriate and recommended clinical assessment with the Transplant Team at the . Commented as well with my attending Dr. Ronnie DO. Ramo Taylor MD Hematology and Medical Oncology Fellow [facility], [phone] [id number] Telephone encounter Note* Telephone Encounter - Briseyda Cleopatra - 03/21/2025 8:45 AM EDT Akilah calling to follow up on yesterdays call Akilah also states that she will be sending the MARIE again via fax - it will be uploaded into patient's chart once received [id number] Miscellaneous Notes* Telephone Encounter - Cleopatra Rain - 03/21/2025 8:45 AM EDT Akilah calling to follow up on yesterdays call Akilah also states that she will be sending the MARIE again via fax - it will be uploaded into patient's chart once received * Telephone Encounter - Cleopatra Rain - 03/20/2025 4:[address] calling from [facility] on behalf of Dr. Ruchi Hopper, referring physician, is requesting office notes from most recent office visit. Patient is stating he needs a transplant and doctor would like to clarify with Dr. Bueno's office visit notes.He would like to begin his treatment plan. Akilah states that a fax request has been sent but it is not present in the patient's chart at this time. [phone] - phone number [phone] - fax number documented in this [id number] Telephone encounter Note* Telephone Encounter - Cleopatra Rain - 03/20/2025 4:[address] calling from [facility] on behalf of Dr. Ruchi Hopper, referring physician, is requesting office notes from most recent office visit. Patient is stating he needs a transplant and doctor would like to clarify with Dr. Bueno's office visit notes.He would like to begin his treatment plan. Akilah states that a fax request has been sent but it is not present in the patient's chart at this time. [phone] - phone number [phone] - fax number [id number] History of Present illness Narrative* Willow Bond LSW - 03/13/2025 8:18 AM EDT SW [facility] and [facility] , [facility]. Pt met with Dr. Craig but due to the distance between his home and , Pt will seek treatment at . SW educated Pt on emotional support services available through [facility] and explained that services can be accessed virtually and that [facility] canalso direct them to services in their area. Pt accepted the referral to [facility]. SW submitted [facility] referral through [employer] . Willow Bond SUPERVISOR P[employer]ERING, CHIEF CONTRACT OFFICER [id number] documented in this [id number] Telephone encounter Note* Telephone Encounter - Willow Bond LSW - 03/13/2025 8:16 AM EDT Opened in error Willow Bond SUPERVISOR P[employer]ERING, CHIEF CONTRACT OFFICER [id number] Miscellaneous Notes* Telephone Encounter - Willow Bnod LSW - 03/13/2025 8:16 AM EDT Opened in error Willow Bond MSW, CHIEF CONTRACT OFFICER [id number] documented in this [id number] History of Present illness Narrative* Ramo Taylor MD - 03/12/2025 11:30 AM EDT Images from the original note were not included. HEMATOLOGY AND MEDICAL ONCOLOGY [facility] Patient ID: Name: Penny Ordaz Encounter Date: [...] THERAPY Current therapy has been given at [facility] per Dr. Martita Hopper MD [...] and severe seborrheic dermatitis, [facility]. He reported experiencing fatigue, [...] October 2024, the patient was evaluated at [facility] due to severe anemia once again. He [...] most recent transfusion occurring this morning at [facility], where a hemoglobin level of 6.5 g/dL was documented. A bone marrow biopsy was performed on December 25, 2024, at [facility], with results reported on January 01, 2025 as left shifted dysgranulopoietic marrow with 3% of circulating myeloblasts, trisomy 8 by FISH, and positive JAK2 V617F and TET2 mutations consistent with Myelofibrosis. The patient has been sent to our hospital to define management and plan for possible Bone Marrow Transplant. Interval: The patient underwent a new BONE MARROW BIOPSY here at [facility] on 01/21/2025, and the results are [...] 100 [facility] CBC on 03/12/2025 at [facility] WBC 8.2 Hgb 7.1 PLTs 269 [...] 02/20/2025 NEW BMBx *SPECIMEN FOR SURGICAL PATHOLOGY: [id number] Order: [id number] Collected 02/20/2025 12:23 Status: Final result Dx: Myelofibrosis (HCC); Pancytopenia Test Result Released: No (inaccessible in Medityplushart) 0 Result Notes Component Case Report Surgical Pathology Report Case: [id number] Authorizing Provider: Anne Ha MD Collected: 02/20/2025 1223 Ordering Location: [facility] Radiology CT Received: 02/20/2025 1340 Pathologist: [...] is hemodilute and unlikely to be fully sales representative wire rope of the marrow. The core biopsy is [...] a new BONE MARROW BIOPSY here at [facility] on 01/21/2025, and the results are [...] up with his oncologist Dr. Hopper at [facility] We communicate with Dr. Hopper office [...] now follow up with his Oncologists at [place] and plan for transplant at the or [facility]. (Referral done) church worker to help with the connection with [facility]. Patient seen and assessed with Dr. Korey Bueno MD. The patient and family's questions, doubts, and concerns were addressed and resolved apropriately. A thorough and detailed explanation of the patient's case was provided. The patient and family members ( and [id number]-[id number] presented in the office) demonstrated an understanding of the information and agreed with the plan. --- Ramo Mckinnon MD Hematology and Medical Oncology Fellow [phone] [1] No past surgical history on file. [...] Korey Bueno MD 03/12/2025 documented in this [id number] History of Present illness Narrative* Dewey Enriquez, - 03/07/2025 10:00 AM EDT Subjective Patient ID: Penny Ordaz is a 64 y.o. male. Keron presents today for recheck of several problems. He is seeing the oncologist and has been going up to [facility] a bone marrow biopsy recently. He [...] mouth in the morning. documented in this encounterMercy [facility] Hospital08-19-2025 Telephone encounter Note* Telephone Encounter - Adrienne Joel - 03/05/2025 10:06 AM EDT PT Called to confirm appt 03/12 also asked for a call back about Bone Valdez results AM. [id number] Miscellaneous Notes* Telephone Encounter - Adrienne Joel - 03/05/2025 10:06 AM EDT PT Called to confirm appt 03/12 also asked for a call back about Bone Valdez results AM. documented in this [id number] Telephone encounter Note* Telephone Encounter - Adrienne Joel - 02/26/2025 3:43 PM EDT Akilah from DR Glez office called [id number] Miscellaneous Notes* Telephone Encounter - Adrienne, Joel - 02/26/2025 3:43 PM EDT Akilah from DR Glez office called documented in this [id number] NoteEXAMINATION: CT BIOPSY BONE (MONIQUE) 02/20/2025 11:36 AM CLINICAL HISTORY: Rad Procedure required: = BONE MARROW BIOPSY,bone marrow biopsy under CT guidance ASSOCIATED DIAGNOSIS: Pancytopenia Myelofibrosis (HCC) MDS (myelodysplastic syndrome) (HCC) ORDERING PROVIDER: LASHELL TRUJILLO TECHNOLOGISTS NOTE: Sedation start: 1103 Sedation end: 1123 Versed given: .5 mg Fentanyl given: 100mcg ATTENDING PHYSICIAN: Anne Ha RESIDENT/FELLOW PHYSICIAN: Frankie [...] marked using imaging guidance. The skin was preppedand draped in the usual sterile fashion. Local anesthesia was provided with injection of 1% lidocaine. Using CT guidance and an Cassatt device a core bone biopsy and bone [...] the images and agree with the resident's interpretation.[facility]08-06-2025 Hospital Discharge instructions * Discharge Instructions* Radha Garner RN - 02/20/2025 11:43 AM [...] cover with a band-aide for two days. Aftertwo days you may leave the site open to air. Problems to watch for: Increased pain that you cannot tolerate at the biopsy site with fgka-zwh-nhuwnbp medications such as Tylenol or Ibuprofen. Increased pain in your stomach or back that you cannot tolerate at the biopsy site with ksre-xbm-lonzpgm medications such as Tylenol or Ibuprofen. Dizziness, lightheaded or rapid heartbeat. Skin appearing pale, cold and sweating. These include a fever of 100.4 F (38 C) or higher, chills. Signs of wound infection. These include swelling, redness, warmth around the wound; too much pain when touched; yellowish, greenish, or bloody discharge; foul smell coming from the cut site; cut siteopens. Follow Up Care: Your biopsy results will go to the doctor who ordered your biopsy. These results take approximately3-5 business days. If you have not heard from your doctor in that time, please call their office. Additional Information For questions or concerns during regular business hours call the Radiology Department at and press option 3. A radiology nurse will call you the next business day after your procedure.If additional emergency health advice or information is required, please call [phone], available 07/02. Moderate Sedation WHAT YOU SHOULD [...] healthcare provider if you think your medicine isnot working as expected. Tell him if you [...] like moving when you need to hold still.If the medicine does not wear off in [...] those who drink too much alcohol too oftenare at a greater risk of having problems. [...] to your diet, activity, or medicine. Avoid hardexercise right after having moderate sedation. Do not [...] To help prevent this, pain medicine and anti- nausea medicine are often given at the same [...] You have a very bad headache. Copyright 2011. [employer]. All rights reserved. Information is for End User's use only and may not be sold, redistributed or otherwise used for commercial purposes. The above information is an operating room aide only. It is not intended as medical advice for individual conditions or treatments. Talk to your doctor, nurse or pharmacist before following any medical regimen to see if it is safe and effective for you. documented in this [id number] NotePOST-PROCEDURE NOTE Procedure: CT guided bone marrow biopsy and aspiration Pre-operative Diagnosis: Myelofibrosis Post-operative Diagnosis: Myelofibrosis Attending: Anne Ha MD Sheet Catcher: Frankie Wayne MD A TIME OUT was [...] Given Dose: 50 mcg; Route: Intravenous Mariajose Bruce, MICHAEL 02/20/2025 11:03 AM fentaNYL (SUBLIMAZE) 100 MCG/2ML injection Medication Given Dose: 50 mcg; Route: Intravenous Mariajose Bruce, MICHAEL 02/20/2025 11:14 AM Complications: None Specimens: Grossly a dry tap. 3 samples and bone marrow biopsy Estimated Blood Loss: None Post Procedure Pain Ratin/10 Findings: Successful bone marrow biopsy and aspiration. Please see procedure dictation in EPIC/PACS for full procedural details. Frankie Wayne MD [facility] Surgery Postoperative evaluation and management note* Post-Procedure Note - Frankie Wayne MD - 02/20/2025 11:28 AM EDT POST-PROCEDURE NOTE Procedure: CT guided bone marrow biopsy and aspiration Pre-operative Diagnosis: Myelofibrosis Post-operative Diagnosis: Myelofibrosis Attending: Anne Ha MD Sheet Catcher: Frankie Wayne MD A TIME OUT was [...] Ha MD at 02/20/2025 12:58 PM EDT [id number] Miscellaneous Notes* Post-Procedure Note - Frankie Wayne MD - 02/20/2025 11:28 AM EDT POST-PROCEDURE NOTE Procedure: CT guided bone marrow biopsy and aspiration Pre-operative Diagnosis: Myelofibrosis Post-operative Diagnosis: Myelofibrosis Attending: Anne Ha MD Sheet Catcher: Frankie Wayne MD A TIME OUT was [...] 02/20/2025 12:58 PM EDT documented in this [id number] History and physical note* Frankie Wayne MD - 02/20/2025 10:31 AM EDT MODIFIED HISTORY AND PHYSICAL: HISTORY: Procedure: CT [...] specified components in the past 45 days (HGB,HCT,PLT,PTT,PT,INR,FXAUN,ANTIFXALMWHE,CR) Planned Sedation: Moderate Planned Sedation Medications: VERSED [...] Directives (Living will, health care power of deputy county attorney): none Patient Recent Code Status: No Order Code Status For This Procedure: Full Code Frankie Wayne MD Radiology [1] No past medical history on file. [2] [facility] Work Phone: 1(699) 287-295208-06-2025 NoteMODIFIED HISTORY AND PHYSICAL: HISTORY: Procedure: CT guided [...] specified components in the past 45 days (HGB,HCT,PLT,PTT,PT,INR,FXAUN,ANTIFXALMWHE,CR) Planned Sedation: Moderate Planned Sedation Medications: VERSED [...] Directives (Living will, health care power of deputy county attorney): none Patient Recent Code Status: No Order Code Status For This Procedure: Full Code Frankie Wayne MD Radiology [1] No past medical history on file. [2][facility] [id number] History and physical note* Frankie Wayne MD - 02/20/2025 10:31 AM EDT MODIFIED HISTORY AND PHYSICAL: HISTORY: Procedure: CT [...] specified components in the past 45 days (HGB,HCT,PLT,PTT,PT,INR,FXAUN,ANTIFXALMWHE,CR) Planned Sedation: Moderate Planned Sedation Medications: VERSED [...] Directives (Living will, health care power of deputy county attorney): none Patient Recent Code Status: No Order Code Status For This Procedure: Full Code Frankie Wayne MD Radiology [1] No past medical history on file. [2] documented in this [id number] Telephone encounter Note* Telephone Encounter - Juliette Schumacher RN - 02/14/2025 9:12 AM EDT Patient was identified by name and date of . Juliette Schumacher RN Contacted patient to schedule bone marrow biopsy and oncology follow-up. Patient aware of bone marrow biopsy February 20 with 10:30 arrival and MD follow-up March 12. Will have labs tomorrow at OSH. Juliette Schumacher RN [id number] Miscellaneous Notes* Telephone Encounter - Juliette Schumacher RN - 02/14/2025 9:12 AM EDT Patient was identified by name and date of . Juliette Schumacher RN Contacted patient to schedule bone marrow biopsy and oncology follow-up. Patient aware of bone marrow biopsy February 20 with 10:30 arrival and MD follow-up March 12. Will have labs tomorrow at OSH. Juliette Schumacher, RN documented in this [id number] History of Present illness Narrative* Ramo Taylor MD - 02/12/2025 5:27 PM EDT Images from the original note were not included. HEMATOLOGY AND MEDICAL ONCOLOGY [facility] After a thorough discussion with the Interventional Radiology (IR) team, the radiology team, and the MRI team, we reached a consensus that conducting a bone marrow MRI will not provide any benefit inidentifying the precise location for a bone marrow biopsy. The IR team is capable of performing thebiopsy under CT guidance. This plan was discussed with Dr. Jordan and Dr. Ryder (radiologists) and has been communicated to Dr. Stoner and Ronnie. We will proceed with scheduling [...] Taylor MD Hematology and Medical Oncology Fellow [facility], [phone] documented in this [id number] Telephone encounter Note* Telephone Encounter - Joel Deleon - 02/11/2025 1:42 PM EDT PT Called back asking for follow up on MRI Informed of message from Dr. Wisam WANG. [id number] Miscellaneous Notes* Telephone Encounter - Joel Deleon - 02/11/2025 1:42 PM EDT PT Called back asking for follow up on MRI Informed of message from Dr. Wisam WANG. * Telephone Encounter - Cleopatra Rain - 02/11/2025 10:16 AM EDT Patient calling Patient states that he is to be scheduled for an MRI - I don't see any orders for an MRI Patient can be reached at [phone] documented in this [id number] Telephone encounter Note* Telephone Encounter - Cleopatra Rain - 02/11/2025 10:16 AM EDT Patient calling Patient states that he is to be scheduled for an MRI - I don't see any orders for an MRI Patient can be reached at [phone] [id number] History of Present illness Narrative* Juliette Schumacher, MICHAEL - 02/05/2025 1:06 PM EDT MD to reach out to IR to see if IR guided bone marrow biopsy possibility. Will arrange follow-up after decision made regarding biopsy. Juliette Schuamcher RN documented in this [id number] Note* Addendum Note - Macy Salmeron - 01/21/2025 12:46 PM EDTEncounter addended by: Macy Salmeron on: 01/21/2025 12:46 PM Actions taken: Visit diagnoses modified, Order list changed, Diagnosis association updated [id number] Miscellaneous Notes* Addendum Note - Macy Salmeron - 01/21/2025 12:46 PM EDTEncounter addended by: Macy Salmeron on: 01/21/2025 12:46 PM Actions taken: Visit diagnoses modified, Order list changed, Diagnosis association updated * Addendum Note - Azul Hidalgo RN - 01/21/2025 11:58 AM EDTEncounter addended by: Azul Hidalgo RN on: 01/21/2025 11:58 AM Actions taken: Clinical Note Signed * Addendum Note - Stefan Perez APRN-CNP - 01/21/2025 11:28 AM EDTEncounter addended by: Stefan Perez APRN-CNP on: 01/21/2025 11:28 AM Actions taken: Order list changed, Diagnosis association updated, Treatment plan modified documented in this [id number] Note* Addendum Note - Azul Hidalgo RN - 01/21/2025 11:58 AM EDTEncounter addended by: Azul Hidalgo RN on: 01/21/2025 11:58 AM Actions taken: Clinical Note Signed [id number] History of Present illness Narrative* Azul Hidalgo RN - 01/21/2025 11:57 AM EDT Patient was identified by name and date of . Azul Hidalgo RN The patient had a bone marrow biopsy x2 without complications. He was educated on side effects and potential complications/ risks. The sights were clean dry and in tact without bleeding on discharge.Madeline Hidalgo RN * Stefan Perez APRN-CNP - 01/21/2025 11:25 AM EDT Procedure: Bone Marrow Aspiration and Biopsy Date performed: 01/21/2025 Time out completed, patient identified with (2 required): Name and Date of Location where procedure was performed: [facility] Consent: - Method of consent: Signed by responsible green party - Person giving consent: Patient Risks discussed: Including, but not limited to Hematoma, Hemorrhage, and Infection. Antiseptic preperation: betadine Bone marrow biopsy attempted on left posterior iliac crest. Unable to obtain an adequate aspirate or core biopsy sample; it appeared that only blood was aspirated with small section of cortical bone.Anatomical landmarks, including the iliac crest, were easily identified. A second attempt was made on the right posterior iliac crest with the same result -- unable to obtain an adequate sample, aspirating blood only. No complications noted post-procedure. Each attempt utilized 10 mL 2% lidocaine. Aftercare: Pressure dressing was placed., External pressure was applied., Patient was instructed onaftercare., Patient verbalized understanding of the aftercare. BRYSON Mejia * Nathan Camacho MTA/MPA - 01/21/2025 9:51 AM EDT Patient was identified by name and date of . FLORES Guardado Patient at risk for falls:No Falls Risk protocol implemented: No documented in this [id number] Note* Addendum Note - Stefan Perez APRN-CNP - 01/21/2025 11:28 AM EDTEncounter addended by: Stefan Perez APRN-CNP on: 01/21/2025 11:28 AM Actions taken: Order list changed, Diagnosis association updated, Treatment plan modified [id number] NoteEncounter addended by: Stefan Perez APRN-CNP on: 01/21/2025 11:28 AM Actions taken: Order list changed, Diagnosis association updated, Treatment plan modifiedThe [facility]07-[facility]-20[facility] NoteProcedure: Bone Marrow Aspiration and Biopsy Date performed: 01/21/2025 Time out completed, patient identified with (2 required): Name and Date of Location where procedure was performed: [facility] Consent: - Method of consent: Signed by responsible green party - Person giving consent: Patient Risks [...] Patient verbalized understanding of the aftercare. BRYSON MejiaThe [facility]05-21-2025 History of Present illness Narrative* Dewey Myersaly, DO - 12/05/2024 9:30 AM EDT Subjective Patient ID: Penny Ordaz is a 64 y.o. male. Keron presents today to recheck chest x-ray. He is not having any respiratory symptoms. He did have PFTs done that did not show any significant COPD or other abnormality. He denies chest pain or cough.He is seeing the oncologist for his myelofibrosis. He has an appointment in January in [place] to discuss it with a different specialist. [...] Exam Vitals reviewed. Exam conducted with a director semiconductor present (Ayad Derrell MS 3). Constitutional: General: [...] is still may need to see a shine worker if it has it. Primary myelofibrosis (CMS-HCC) Follow up with Oncology as directed documented in this encounterBarre City HospitalFerric Semiconductor05-13-2025 Telephone encounter Note* Telephone Encounter - Shirlene Parkinson - 11/27/2024 5:00 PM EDT Upon review of chart, saw that pt [...] and call back tomorrow. Pineda Parkinson RN [id number] Miscellaneous Notes* Telephone Encounter - Shirlene Parkinson - 11/27/2024 5:00 PM EDT Upon review of chart, saw that pt [...] tomorrow. Pineda Parkinson RN documented in this [id number] Telephone encounter Note* Telephone Encounter - Joel Deleon - 11/27/2024 1:48 PM EDT PT called to make appointment Scheduled by notes PT asked 01/15 at 1PM AM. [id number] Miscellaneous Notes* Telephone Encounter - Joel Deleon - 11/27/2024 1:48 PM EDT PT called to make appointment Scheduled by notes PT asked 01/15 at 1PM AM. * Telephone Encounter - Shirlene Parkinson - 11/26/2024 10:18 AM EDT Pt id'd by name and . Explained [...] updated. Pineda Parkinson RN documented in this [id number] Telephone encounter Note* Telephone Encounter - Shirlene Parkinson - 11/26/2024 10:18 AM EDT Pt id'd by name and . Explained to pt the reason for call was to schedule appt. Pt stated he was not sure whether or not he needed appt and stated he will check w/his oncologist tomorrow. Pt accepted contact info and stated he will call back. Holding 12/[address] CRAIG. please make sure EPIC is updated. Pineda Parkinson RN [id number] Miscellaneous Notes* Telephone Encounter - DEIDRE Caban - 11/16/2024 10:59 AM EDT Patient's /HIPAA, Marla, called office and stated that she needed to cancel patient's appointment for 12/20/2024 at 1:00 pm with SE due to patient being in hospital. Appointment was cancelled. documented in this encounterMercy [facility] Hospital05-02-2025 Telephone encounter Note* Telephone Encounter - DEIDRE Caban - 11/16/2024 10:59 AM EDT Patient's /HIPAA, Marla, called office and stated that she needed to cancel patient's appointment for 12/20/2024 at 1:00 pm with SE due to patient being in hospital. Appointment was cancelled. [facility]04-17-[facility] History of Present illness Narrative* Dewey G Furlong, DO - 11/01/2024 9:15 AM EDT Subjective Patient ID: Penny Ordaz is a 64 y.o. male. He presents today for concerns regarding his driving and memory. He was driving to [place] with his and was driving erratically. A concerned citizen called the police who met him at [place].They did check him to see if he [...] to drive. He was referred to a shine worker by Dr. [place] but a shine worker was not in his network. Heneeds a referral to a new shine worker. He thinks it was because of the [...] drift. Coordination: Romberg sign negative. Coordination normal. Tjpprs-Ppyh-Szggnc Test and Heel to Hay Test normal. [...] Would need to go see pulmonology in [place] or [facility]. I asked him to check his network to see who is in his plan. Memory loss He scored a 4 on the 6-Cit which is technically normal. He scored a 27 on the MOCA when he was herea couple months ago. His is the 1 who is telling others that he has dementia. She is not here to discuss details on why she is saying that. As far as the driving issue goes he was in an argumentwith his and was not paying attention to the road. The police did let him go without any citation. Neurologically he appears relatively intact. documented in this encounterBarre City HospitalHatsize [id number] History of Present illness Narrative* Misti Fuentes RN - 10/04/2024 11:18 AM EDT Patient is here for hospital follow up to review scans and bmb with Dr. Stuart. Received the followingorders: Print out order for CBC epo. F/u in 3 months. Follow up scheduled for 01/03/[address] Stuart. He is planning to call his insurance to check to see if we are in network for sure and if not he will call to cancel that follow up. He said he can see adoctor in [place] that does take his insurance if he is not able to continue to follow with Dr. Stuart. Lab orders, treatment calendar and AVS provided to patient. He verbalized understanding to instructions. Discharged in stable condition to private vehicle. documented in this encounterMercy Memorial Hospital03-20-2025 History of Present illness Narrative* Keyur Stuart MD - 10/04/2024 10:30 AM EDT Images from the original note were not included. [facility] Bryan Perales M.D. Chantel Maya M.D. Kei Collazo M.D. Wendi Pang M.D. Juliette Ronquillo, [facility] Diann Patel, [facility] Concepción Marks, [facility] Valeria Valente, [facility] Rasheeda Mijares, [facility] Keyur Stuart M.D. Vijay Carrington M.D. Trae Lazar M.D. Gillian Garza M.D. Joceline Larry, [facility] Laisha Brooks, [facility] Ritu Dooley, [facility] Kim Tavarez, [facility] Yeny Tyson, [facility] PROGRESS NOTE 10/04/24 Subjective/Interval History: The patient is a 63 y.o. male with only history is psoriasis. He denies any other past medical history. Denies any personal history of cancer. States mother had uterine cancer. States he drinks about3-4 beers daily. And has smoked cigarettes over the last 15 years however has recently quit about 3weeks ago. Patient presented after PCP requested he [...] is unable to get blood draws from [facility]. Oncology History No history exists. Objective Physical [...] topically in the morning and 1 Application beforebedtime., Disp: 30 g, Rfl: 1 rosuvastatin (CRESTOR) [...] him consider bone marrow transplant evaluation at [facility]. Transfuse to keep hemoglobin above 7. The patient told me due to his insurance change, he may have to establish care with Hematology at [facility]. Keyur Stuart M.D. [facility] [address] [place] [address] documented in this encounterBarre City HospitalFerric Semiconductor03-20-2025 Instructions* Patient Instructions* Keyur Stuart MD - 10/04/2024 10:30 AM EDT Print out order for CBC epo. F/u in 3 months. documented in [facility] Procedure note [facility] [place] [address] [place] [address] Pulmonary Function Signed Patient: Penny Ordaz MR#: [id number] : 1960 Date of Service:0 09/26/24 Age/Sex: 63 / M ADM Date: 5 Loc: RT Room: Type: [facility] Attending Dr: Dewey Enriquez DO Copies to: MD Dewey Sullivan,~ Pulmonary Function Test Complete pulmonary function studies were performed on September 26, 2024 for patientwith diagnosis of COPD. Spirometry was limited by inability to follow directionwith inadequate duration of prebronchodilator exhalation. Please refer to the pulmonary function test report for the raw data. SPIROMETRY: Spirometry was performed with bronchodilator studies and reveals an FEV1 to FVC ratio of 81% with an FEV1 of 2.46 liters (77% predicted) and a forced vital capacity of 3.05 liters (71% predicted). There was no significant change in expiratory flow after administration of bronchodilators. LUNG VOLUMES: Measurement of static lung volumes was performed by plethysmography and indicates a total lung capacity of 6.18 liters (92% predicted) with a residual volume which was 101% of predictedand a residual volume to total lung capacity ratio of 40%. DIFFUSION CAPACITY: Single breath diffusion capacity is 13.4 mL/mmHg/min (51% predicted) and is 68%predicted after adjustment for alveolar volume. SUMMARY: These pulmonary function studies indicate proportional decrease in expiratory flow but notin a pattern indicative of an obstructive ventilatory defect and thus would not be consistent with a diagnosis of COPD. There is no clear evidence of restriction or air trapping with a moderate decrease in diffusion capacity which improves open remains mildly reduced when adjusted for alveolar volume which could suggest some component of ventilation/perfusion mismatching but also a degree of anemia and/or an intrinsic decline in diffusionacross the alveolar membrane. There are no prior studies available for comparison. Clinical correlation is recommended. Transcribed By: FARHAD 09/26/241809 Dictated By: Rasheeda Horn MD 09/26/241809 Signed By: 09/26/241814 [facility]03-07-2025 History of Present illness Narrative * Dewey Enriquez, DO - 09/21/2024 9:00 AM EST Subjective Patient ID: Penny Ordaz is a 63 y.o. male. The patient is here today for discharge follow up from hospital. Transition of Care Med Rec completed? Yes Discharged medications: Medications have been reviewed and reconciled with the most recent facilitydischarge document. Keron presents for hospital follow up. He is feeling better. He had 4 units of PRBCs. Follow-up The following portions of the patient's history were reviewed and updated as appropriate: allergies, current medications, past family history, past medical history, past social history, past surgicalhistory, problem list, and medication reconciliation was completed including current medication andpost discharge medication. Review of Systems Objective Physical Exam Vitals reviewed. Exam conducted with a director semiconductor present (Jimenez Pritchett MS3). Constitutional: General: He [...] for a colon cancer screen. No symptoms ofupper GI bleeding but should consider doing an [...] anemia. His saw the GI specialist in [place] and would like to go there. documented in this [facility] Miscellaneous Notes* Telephone Encounter - Guerline Cha CMA - 09/12/2024 4:11 PM EST Drug Room Clerk called and left voicemail for patient to call office to schedule a HDFU. CXR in 4 to 6 weeksthen follow up with any provider in [place] per LB. documented in this encounterMer[facility]02-26-[facility]25 Telephone encounter Note* Telephone Encounter - Guerline Cha CMA - 09/12/2024 4:11 PM EST Drug Room Clerk called and left voicemail for patient to call office to schedule a HDFU. CXR in 4 to 6 weeksthen follow up with any provider in [place] per LB. [facility] NoteIR BX BONE MARROW SNGL OR MULT Pre-procedure diagnosis: See history below Post-procedure diagnosis: Same as above Assistants/resident: See the technologist's notes above Consent/pre-procedure evaluation: See below. [place] protocol timeout verification performed. Estimated blood loss: [...] of intravenous Versed, and 30 minutes of [id number] intraservice time for intravenous conscious sedation by an independent, trained observer with monitoring and documentation of heart rate, blood pressure, pulse oximetry,and mental status. Fluoroscopy was used to localize [...] and introduced into a slightly different location. Asmall amount of bone marrow aspirate was obtained. A second core was then given to the hematology personnel. The needle position was confirmed with digital spot image. There was no immediate complicat ion from the procedure. 1 digital images, [6] mGy air kerma radiation, [0.2] minutes of fluoroscopy were obtained for the procedure. Impression: 1. Fluoroscopic guidance for posterior iliac bone marrow aspirate and biopsy without immediate complication. The amount of material was deemed sufficient by the cytopathology technologist. Finalized by Jonathan Sousa MD on 09/10/2024 2:03 [facility] 09-10-2024 NoteIR THORACENTESIS W GUIDE RT Pre-procedure diagnosis: See history below Post-procedure diagnosis: Same as above Assistants/resident: See the technologist's notes above Consent/pre-procedure evaluation: See below. [place] protocol timeout verification performed. Estimated blood loss: [...] and damage to the lung resulting in collapseof the lung. Ultrasound was performed to verify [...] by Jonathan Sousa MD on 09/10/2024 2:00 [facility] 09-08-2024 Miscellaneous Notes* Telephone Encounter - Latha Mendoza - 09/08/2024 2:23 AM EST Contract: 91 New AM consult for Right pleural effusion concern for malignancy To be paged out at 7am * Telephone Encounter - Mercedez Galdamez RN - 09/08/2024 2:23 AM EST Contract: [address] Montelongo on his cell phone- consult information given to MD documented in this encounterMer[facility]02-22-2025 Telephone encounter Note* Telephone Encounter - Latha Mendoza - 09/08/2024 2:23 AM EST Contract: 91 New AM consult for Right pleural effusion concern for malignancy To be paged out at 7am [facility] Telephone encounter Note* Telephone Encounter - Mercedez Galdamez RN - 09/08/2024 2:23 AM EST Contract: [address] Montelongo on his cell phone- consult information given to [facility] Miscellaneous Notes* Telephone Encounter - Cherelle Murphy - 09/06/2024 8:56 PM EST Contract: 198 re Critical Lab * Telephone Encounter - Cherellejessa Murphy - 09/06/2024 8:56 PM EST Call was connected to Dr Enriquez cell documented in this encounterMer[facility]02-20-2025 Telephone encounter Note* Telephone Encounter - Atwood Jeffrey - 09/06/2024 8:56 PM EST Contract: 198 re Critical Lab [facility] Telephone encounter Note* Telephone Encounter - Cherellejessa Murphy - 09/06/2024 8:56 PM EST Call was connected to Dr Enriquez cell [facility] History of Present illness Narrative* Dewey Enriquez, DO - 09/06/2024 10:30 AM EST Subjective Patient ID: Penny Ordaz is a [...] computer and his says he will do thatall day long. He has actually gained weight [...] medication andpost discharge medication. Review of Systems Psychiatric/Behavioral: Negative for confusion. Objective Physical Exam Vitals reviewed. Exam conducted with a director semiconductor present ( and Jimenez Pritchett MS3). Constitutional: [...] Future He scored a 27 on the [place] so I doubt he has any significant [...] assistance but he declined. documented in this encounterMer[facility]01-[facility]25 Miscellaneous Notes* Telephone Encounter - Elisha Lewis CMA - 07/23/2024 11:47 AM EST Patient's called and stated that she feels patient is getting some dementia. He is getting violent in the evening and forgetful. She was wondering if there could be a referral for him to see * Telephone Encounter - Dewey Enriquez DO - 07/23/2024 11:47 AM EST He needs an appointment here 1st to be screen for dementia documented in this encounterMer[facility]01-[facility]25 Telephone encounter Note* Telephone Encounter - Elisha Lewis CMA - 07/23/2024 11:47 AM EST Patient's called and stated that she feels patient is getting some dementia. He is getting violent in the evening and forgetful. She was wondering if there could be a referral for him to see [facility] Telephone encounter Note* Telephone Encounter - Dewey Enriquez DO - 07/23/2024 11:47 AM EST He needs an appointment here 1st to be screen for dementia [facility] [id number] History of Present illness Narrative* Dewey Enriquez DO - 06/25/2024 2:00 PM EST Subjective Penny Ordaz is a 63 y.o. [...] with the phone, transportation, shopping, preparing meals, housework,laundry, medications or managing money? No 3. Does the patient's home have rugs in the hallway, lack grab bars in the bathroom, lack handrailson the stairs or have poor lighting? No [...] ear normal. Nose: Nose normal. Mouth/Throat: Lips: [place]. Mouth: Mucous membranes are moist. Dentition: Abnormal [...] and encouraged to continue smoking cessation. He declinedmedications. Least 3 minute spent discussing. He does declined colon cancer screening and prostate cancer screening. Recheck in 1 year. [facility] in [facility]* Diagnosis Welcome to Medicare preventive visit- Primary Screening for depression Screening for heart disease Screening for other and unspecified cardiovascular conditions Colon cancer screening declined Prostate cancer screening declined [facility] Diagnosis Memory loss- Primary [...] [facility] noteNo assessment information available [facility] Work Phone: Evaluation note* Diagnosis Severe anemia- Primary documented [facility]* Diagnosis 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 anemia Lymphadenopathy, inguinal Splenomegaly documented in this encounter [facility]* Diagnosis 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 Pleural effusion, right Unspecified pleural effusion Memory loss documented in this encounter [facility]* Diagnosis Pleural effusion, right- Primary Unspecified pleural effusion Primary myelofibrosis (CMS-HCC) Myelofibrosis with myeloid metaplasia documented [facility]* Diagnosis Pancytopenia- Primary Other pancytopenia [...] metaplasia Severe anemia [facility]* Diagnosis Myelofibrosis (HCC)- Primary [facility]ofibrosis [facility] Diagnosis Primary myelofibrosis (Multi)- Primary Myelofibrosis with myeloid metaplasia documented in this encounter [facility] Work Phone: Evaluation note* Diagnosis Primary myelofibrosis (Multi)- Primary Myelofibrosis with myeloid metaplasia Primary myelofibrosis (Multi) Myelofibrosis with myeloid metaplasia documented in this encounter [facility] Work Phone: InstructionsNot on filedocumented in this encounter [facility] [...] on filedocumented in this encounter [facility] SystemReason for visit Narrative* Provider Visit (Routine) - AuthorizedSpecialtyDiagnoses / ProceduresReferred By ContactReferred To ContactOncology Medical Diagnoses Primary myelofibrosis (HCC) Refractory anemia with excess blasts-1 (HCC) Poncho Hopper MD [address] [place] [address] Phone: tel: fax: [facility] ONC MEDICAL [address] [place] [address] Phone: tel: Referral IDStatusReasonStart DateExpiration DateVisits RequestedVisits [id number]/ [facility] for visit Narrative* Diagnostic X-Ray (Routine) - Closed SpecialtyDiagnoses / ProceduresReferred By ContactReferred To ContactRadiology Diagnoses Pancytopenia Myelofibrosis (HCC) MDS (myelodysplastic syndrome) (HCC) Procedures CT BIOPSY BONE (MONIQUE) XA INTERVENTIONAL RADIOLOGY PROCEDURE SERVICE Lashell Trujillo DO [address] [place] [address] Phone: tel: fax: [facility] ULTRASOUND [address] [place] [address] Phone: tel: Referral IDStatusReasonStart DateExpiration DateVisits RequestedVisits [id number]/29/20257/ [facility] for visit Narrative* Service Level Authorization (Routine) - Pending ReviewSpecialtyDiagnoses / ProceduresReferred By ContactReferred To ContactOncology Medical Diagnoses Pancytopenia [facility] Oncology Medical [address] [place] [address] Phone: tel: fax: Referral IDStatusReasonStart DateExpiration DateVisits RequestedVisits [id number] Review [facility] for visit Narrative* SCC Consult (Routine) - Authorized SpecialtyDiagnoses / ProceduresReferred By ContactReferred To Contact Hematology and Oncology Diagnoses MDS (myelodysplastic syndrome) (Multi) Alessandra Stnoer MD [address] [place] [id number] Phone: tel: fax: Referral IDStatusReasonStart DateExpiration DateVisits RequestedVisits [id number] Specialty Services Required [facility] Work Phone: Summary Purpose Family History No Family History Records FoundNo Family History Records FoundNo Family History Records FoundNo Family History Records FoundNo Family History Records FoundNo Family History Records FoundNo Family History Records FoundNo Family History Records FoundNo Family History Records Found Advance Directives No Advanced Directives Records Found Date ActivatedDate InactivatedComments09/08/2024 1:29 AMDate ActivatedDate InactivatedComments09/08/2024 1:29 AM09/12/2024 5:34 PMDate ActivatedDate InactivatedComments09/08/2024 1:29 AM09/12/2024 5:34 PM Advance Directive Response Recorded Date/ [...] and content) DATE CREATED AUTHOR 01/04/2018 [facility] DATE CREATED AUTHOR AUTHOR'S ORGANIZ ATION 01/10/2018 [facility] DATE CREATED AUTHOR AUTHOR'S ORGANIZ ATION 09/19/2020 [facility] DATE CREATED AUTHOR AUTHOR'S ORGANIZ ATION 09/22/2024 [facility] DATE CREATED AUTHOR AUTHOR'S ORGANIZ ATION 2024 [facility] DATE CREATED AUTHOR AUTHOR'S ORGANIZ ATION 10/14/2024 [facility] DATE CREATED AUTHOR AUTHOR'S ORGANIZ ATION 03/09/2025 [facility] DATE CREATED AUTHOR AUTHOR'S ORGANIZ ATION 03/22/2025 [facility] DATE CREATED AUTHOR AUTHOR'S ORGANIZ ATION 05/30/2025 [facility] Care Teams (unrecognized sec tion and content) Team MemberRelationshipSpecialtyStart DateEnd Date Dewey Enriquez DO [address] [place] [address] PCP - GeneralFamily Medicine10/10/23Team MemberRelationshipSpecialtyStart DateEnd Date Dewey Enriquez DO [address], [place] [address] PCP - GeneralFamily Medicine10/10/23Team MemberRelationshipSpecialtyStart DateEnd Date Dewey Enriquez DO [address], [place] [address] PCP - GeneralFamily Medicine10/10/23Team MemberRelationshipSpecialtyStart DateEnd Date Dewey Enriquez DO [address], [place] [address] PCP - GeneralFamily Medicine10/10/23Team MemberRelationshipSpecialtyStart DateEnd Date Dewey Enriquez DO [address], [place] [address] PCP - [facility]10/10/23Team MemberRelationshipSpecialtyStart DateEnd Date Dewey Enriquez DO [address], [place] [address] PCP - [facility]09/07/24Team MemberRelationshipSpecialtyStart DateEnd Date Dewey Enriquez DO [address], [place] [address] PCP - [facility]09/07/24 Team Status: Active Member Role Status Dates Deweyemilie MyersDO aly Primary Care Provider Active Team Status: Inactive Member Role Status Dates Dewey LuciaDO aly Primary Care Provide r, Attending Provider Active Start: September 26, 2024 End: September 26, 2024 Team Status: Active Member Role Status Dates Dewey Enriquez Primary Care Provide r, Other Provider Active Start: September 26, 2024 Rasheeda Horn MDAttending ProviderActiveStart: September 26, 2024 Team MemberRelationshipSpecialtyStart DateEnd Date Dewey Enriquez [address], [place] [address] PCP - [facility]09/07/24Team MemberRelationshipSpecialtyStart DateEnd Date Dewey Enriquez DO [address], [place] [address] PCP - [facility]09/07/24Team MemberRelationshipSpecialtyStart DateEnd Date Dewey Enriquez DO [address], [place] [address] PCP - GeneralFamily Medicine09/07/24 Team Status: Inactive Member Role Status Dates Martita Hopper MD Attending Provider Active St art: October 09, 2024 End: October 09, 2024Team MemberRelationshipSpecialtyStart DateEnd Date Dewey Enriquez DO [address], [place] [address] PCP - GeneralFamily Medicine09/07/24Team MemberRelationshipSpecialtyStart DateEnd Date Dewey Enriquez DO [address], [place] [address] PCP - GeneralFamily Medicine09/07/24Team MemberRelationshipSpecialtyStart [place] [address] [place] [address] BMT OncologistHematology and Oncology03/26/25Team MemberRelationshipSpecialtyStart [place] [address] [place] [address] BMT OncologistHematology and Oncology03/26/25 Martita Hopper MD [address] [place] [address] [address] [place] [address] Referring PhysicianOncology04/01/25 Reason for Visit (unrecogniz ed section and content) ReasonCommentsFollow-upReasonCommentsReferralReasonOnset DateCommentsCRITICAL LAB09/06/2024ReasonOnset NmyrRgvfpsotAupkjnu40/22/2025Right pleural effusion concern for malignancyReDuke [facility] and discussion about referralReasonCommentsdiscuss oncologyReHaywood [facility]-up1 monthReasonComments3 month visitReasonOnset DateCommentsEncounter opened in error03/13/2025ReasonOnset DateCommentsReferral to Nzsbsrenjt35/04/2025 Goals (unrecognized section and content) Goals may [...] BE BASED ON THE PRIMARY CLINICAL RECORDS. [facility] TEAM INTERVAL [facility]. provides no warranty or guarantee of the accuracy or completeness of information in this document.
--- OUTSIDE RECORDS SUMMARY | 2025-06-13 11:33 | XMS_ITS | Clinical Summary ---
Author Organization [facility] Address [address] [place] [address] Phone Care Team Providers Care Director Of Physical Security Name Role Phone Mi Encarnacion MD Unavailable [phone] Martita Hopper MD Unavailable [phone] Generic Provider, No Assigned Pcp MD Primary Car e Provider Unavailable Kirit Hilliard MD Unavailable [phone] Allergies No known active allergies Medications MedicationSigDispense QuantityRefillsLast FilledStart DateEnd DateStatus cholecalciferol (Vitamin D-3) 10 mcg (400 units) capsule Take 1 capsule (10 mcg) by mouth once daily.Active ascorbic acid (Vitamin C) 1,000 mg tablet Take 1 tablet (1,000 mg) by mouth once daily.5Active Ojjaara 100 mg tablet tablet Take 2 tablets (200 mg) by mouth once daily.5Active rosuvastatin (Crestor) 10 mg tablet Take 1 tablet (10 mg) by mouth once daily.4Active prochlorperazine (Compazine) 5 mg tablet take 1 tablet by mouth twice daily as needed for nauseaActive triamcinolone (Kenalog) 0.1 % cream Apply to affected area on trunk and extremities EVERY DAY to TWICE DAILY [id number] b complex 0.4 mg tablet Take 1 tablet by mouth once daily.Active Active Problems ProblemNoted DateDiagnosed VtnkUgczkcmdgtco42/12/2025Stem cell transplant dsdropjcs97/12/4130Okgqlkbewnyud84/07/9069Jwucedkmh60/09/2025Hyperlipidemia 03/26/2025Pleural yyrfpbrz68/17/2025nemia in neoplastic vsrnnsl5410/09/2024 Multiple hcpofez5010/09/2024Primary kmfncahembbxg80/20/2025 Assessment & Plan (04/30/2025 3:07 PM EDT): Continues to require transfusions about every other week. Reviewed donor search which showed that he has matched sibling. Additional counseling about transplant process provided. He and his family are still working out potential post transplant director medicare sales plan, and would like to talk some more withBMT coordinator to review what will be needed. Once director medicare sales plan is finalized, we can move to schedule his transplant evaluation. In interim, he will continue local care with Dr. Hopper. 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 The patient???s HLA typing has been drawn.?He has 3 full siblings as potential related donors, and we will also initiate?active?unrelated donor and umbilical cord blood search.? The patient will continue with?therapy?to control his underlying disease, and we will?let them know how?the donor search?proceeds. Plan for virtual visit in mid April to review donor search. Yxpcdbcmykpoy02/07/2025Inguinal ptnzvaftfkvudtb94/21/2025Pleural effusion on right09/06/2024 Overview (03/26/2025): S/p large volume thoracentesis, ?parapneumonic Uxqdnms6409/06/20242029Zangjbxg60/20/2025 Encounters DateTypeDepartmentCare LuauDexyekdyyum77/20/2025 12:53 PM EST - 06/06/2025 11:59 PM ESTHospital Encounter [facility] [address] [place] [address] Primary myelofibrosis (Multi); Stem cell transplant candidate Discharge Disposition: Home06/06/2025 11:29 AM EST - 06/06/2025 12:52 PM EST Hospital Encounter [facility] [address] Lower Level [facility] [address] [place] [address] Kirit Hilliard MD Stem cell transplant candidate (Primary Dx); Primary myelofibrosis (Multi) Discharge Disposition: Home06/06/2025 11:20 AM ESTLab [facility] [address] [facility] 1st [place] [address] Primary myelofibrosis (Multi); Stem cell transplant /20/0660Gidugo88/20/2025Orders Only [facility] [address] Lower [address] [place] [address] Aurea Patel DO 05/30/2025Lab Requisition [facility] [address]th [place] [address] Mi Encarnacion MD 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) 05/29/2025 2:32 PM EST - 05/29/2025 11:59 PM ESTHospital Encounter [facility] [address] [facility] [address] [place] [address] Primary myelofibrosis (Multi); Stem cell transplant candidate Discharge Disposition: Home05/29/2025 2:05 PM EST - 05/29/2025 2:31 PM EST Hospital Encounter [facility] [address] [place] [phone] Primary myelofibrosis (Multi); Stem cell transplant candidate Discharge Disposition: Home05/29/2025 1:30 PM ESTOffice Visit [facility] [address] [place] [address] Nany Chadwick MD Dyslipidemia (Primary Dx); Pleural effusion on right; Myelofibrosis (Multi); Stem cell transplant candidate; Psoriasis Discharge Disposition: Home05/29/2025 12:50 PM ESTLab [facility] [address] [address] Primary myelofibrosis (Multi); Stem cell transplant candidate; Thrombocytopenia; High risk medication use; Encounter for monitoring cardiotoxic drug therapy; At risk for shortness of breath; Other forms of dyspnea; Unspecified severe protein-calorie malnutrition (Multi)05/29/2025 9:17 AM EST - 05/29/2025 2:04 PM ESTHospital Encounter [facility] [place] [place] [address] Primary myelofibrosis (Multi); Stem cell transplant candidate; Encounter for monitoring cardiotoxic drug therapy Discharge Disposition: Home05/29/2025 9:17 AM EST - 05/29/2025 2:04 PM EST Hospital Encounter [facility] [address] [facility] [address] [place] [address] Primary myelofibrosis (Multi); Stem cell transplant candidate; Encounter for monitoring cardiotoxic drug therapy Discharge Disposition: Home05/29/2025Documentation [facility] [address] [place] [address] Rosaura Foster, MICHAEL 05/29/2025Orders Only [facility] [address] [facility] [address] [place] [address] Tootie Erwin, MICHAEL Stem cell transplant candidate (Primary Dx); Encounter for monitoring cardiotoxic drug dchufll1105/29/20254609Yqvczq33/10/2025 Orders Only [facility] [address] [place] [address] Mi Encarnacion MD Primary myelofibrosis (Multi); Stem cell transplant cydlxsrzo75/10/2025Telephone [facility] [address] [place] [address] Kirit Hilliard MD 05/23/2025Telephone [facility] [address] 1[address] [place] [address] Latha Cagle MA reminder call05/22/2025Orders Only [facility] [address] [place] [address] Mi Encarnacion MD Primary myelofibrosis (Multi); Stem cell transplant xzivmddsa83/03/2025Social Work [facility] [address] [place] [address] Boby Mendoza LSW 05/16/2025Documentation [facility] [address] [place] [address] Rosaura Foster, MICHAEL 05/13/2025Orders Only [facility] [address] [place] [address] Mi Encarnacion MD Primary myelofibrosis (Multi); Stem cell transplant candidate; At risk for shortness of breath; Encounter for monitoring cardiotoxic drug therapy; High risk medication use; Thrombocytopenia; Other forms of dyspnea; Unspecified severe protein-calorie malnutrition (Multi)05/13/2025Documentation [facility] [address] [place] [address] Rosaura Foster RN 05/13/2025Telephone [facility] [address] [place] [address] Rosaura Foster, MICHAEL 05/07/2025Documentation [facility] [address] [place] [phone] Rosaura Foster RN 05/07/2025Telephone [facility] [address] [place] [address] Maribel Cruz, MICHAEL Uacaxpcfxtd15/14/2025 11:00 AM EDTTelemedicine [facility] [address] [place] [address] Mi Encarnacion MD Primary myelofibrosis (Multi)04/30/20257186Rvrayk04/02/2025Lab Requisition [facility] [address] [place] [phone] Mi Encarnacion MD Acute myeloblastic leukemia, not having achieved remission (Multi)04/10/2025Lab Requisition [facility] [address] [place] [address] Mi Encarnacion MD 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) 04/03/2025Orders Only [facility] [address] [place] [address] Elisha Gillespie RN 04/02/2025Documentation [facility] [address] [place] [address] Rosaura Foster, MICHAEL 04/02/2025Education [facility] [address] [place] [address] Rosaura Foster, MICHAEL 04/02/2025Telephone [facility] [address] [place] [phone] Mi Encarnacion MD call03/27/2025Orders Only [facility] [address] [place] [address] Mi Encarnacion MD Primary myelofibrosis (Multi); Stem cell transplant ydvcdusmk93/10/2025Telephone [facility] [address] [place] [phone] Mi Encarnacion MD Advice Only03/26/2025 4:20 PM EDTLab [facility] [address] [address] Primary myelofibrosis (Multi)03/26/2025 2:00 PM EDTOffice Visit [facility] [address] [place] [phone] Mi Encarnacion MD Primary myelofibrosis (Multi) (Primary Dx)03/26/2025Patient Outreach [facility] [address] [place] [phone] Seamus Gayle RN 03/26/20257391Lkpunu94/04/2025Transcribe Orders [facility] [address] [place] [address] Tony Catalan MD MDS (myelodysplastic syndrome) (Multi) (Primary Dx)from Last 3 Months Immunizations ImmunizationAdministration DatesNext DueCOVID-19, mRNA, LNP-S, PF, 30 mcg/0.3 mL dose07/23/2021,10/31/2020,10/09/2020Tdap vaccine, age 7 year and older (BOOSTRIX, ADACEL)01/20/2017 Family History Medical HistoryRelationNameCommentsHeart diseaseBrotherDavidCancerMotherCOPD Sister 2DarleneDiabetesSister 2DarleneCOPDSister 3ConnieAnxiety disorderSister 4 MarshaRelationNameStatusCommentsBrotherDavidDeceasedFatherDeceased (Age 88) Natural causesMotherDeceased (Age 44) Female cancerSister 1BonnieAliveSister 2 DarleneAliveChronic oxygenSister 3ConnieAliveSister 4MarshaAlive Social History Tobacco UseTypesPacks/DayYears UsedDateSmoking Tobacco: GxtpljIbubmvmpbu660.2 1984 - 09/2024Smokeless Tobacco: Never Tobacco Cessation:Counseling Given: Not Answered Alcohol UseStandard Drinks/WeekCommentsYes2 (1 standard drink = 0.6 oz pure alcohol)PHQ-2AnswerDate RecordedPatient Health Questionnaire-2 Hwhex14008/06/2024 Humiliation, Afraid, Rape, and Kick questionnaireAnswerDate RecordedWithin the last year, have you been afraid of your partner or ex-partner?No03/26/2025Within the last year, have you been humiliated or emotionally abused in other ways by your partner or ex-partner?03/26/2025Within the last year, have you been kicked, hit, slapped, or otherwise physically hurt by your partner or ex-partner?No03/26/2025Within the last year, have you been raped or forced to have any kind of sexual activity by your partner or ex-partner?03/26/2025 Social Connection and Isolation PanelAnswerDate RecordedIn a typical week, how many times do you talk on the phone with family, friends, or neighbors?Three times a week03/26/2025How often do you get together with friends or relatives? Once a week03/26/2025How often do you attend adventism or hindu services?1 to 4 times per year03/26/2025Do you belong to any clubs or organizations such as adventism groups, unions, fraternal or athletic groups, or school groups?No 03/26/2025How often do you attend meetings of the clubs or organizations you belong to?Never03/26/2025re you , , , , never , or living with a partner?Yeyecle3203/26/2025UDIT-CAnswerDate RecordedQ1: How often do you have a drink containing alcohol?4 or more times a week 03/26/2025Q2: How many drinks containing alcohol do you have on a typical day when you are drinking?1 or Q3: How often do you have six or more drinks on one occasion?Never03/26/2025Overall Financial Resource Strain (CARDIA) AnswerDate RecordedHow hard is it for you to pay for the very basics like food, housing, medical care, and heating?Somewhat hard03/26/2025[facility] [place] [facility] - Occupational Stress QuestionnaireAnswerDate RecordedDo you feel stress - tense, restless, nervous, or anxious, or unable to sleep at night because yourmind is troubled all the time - these days?Not at all03/26/2025 Exercise Vital SignAnswerDate RecordedOn average, how many days per week do you engage in moderate to strenuous exercise (like a brisk walk)?0 days03/26/2025 Minutes of Exercise per SessionNot on file03/26/2025PRAPARE - Transportation AnswerDate RecordedIn the past 12 months, has lack of transportation kept you from medical appointments or from getting medications?No03/26/2025In the past 12 months, has lack of transportation kept you from meetings, work, or from getting things needed for daily living?No03/26/2025Housing Stability Vital SignAnswer Date RecordedIn the last 12 months, was there a time when you were not able to pay the mortgage or rent on time?No03/26/2025Number of Times Moved in the Last YearNot on file03/26/2025t any time in the past 12 months, were you homeless or living in a mcfp (including now)?No03/26/2025B1300 Health LiteracyAnswerDate RecordedHow often do you need to have someone help you when you read instructions, pamphlets, or other written material from your doctor or pharmacy? Yxjcinmtd73/09/2025Digital Health Equity ScreeningAnswerDate RecordedWhich of the following do you know how to use AND have access to every day? (choose all that apply)Desktop computer, laptop computer, or tablet with broadband internet ajqobnhfva78/09/2025Which of the following would you like to get connected to in order to receive a discount or for free? (choose all that apply)Patient declined 03/26/2025Sex and Gender InformationValueDate RecordedSex Assigned at BirthNot on fileLegal YbaShfc3202/19/2025 1:57 PM EDTGender IdentityNot on fileSexual OrientationNot on fileOccupationIndustryJob Start DateJob End DateRetired - former factory work ([employer])Not on fileNot on fileNot on file Last Filed Vital Signs Vital SignReadingTime TakenCommentsBlood Twnehhur391/6511 3:30 PM EST Sdnwq244406/06/2025 3:30 PM NYUPftrkpohifm95 ??C (96.8 ??F)06/06/2025 1:10 PM EST Respiratory Gskh517208/06/2024 3:30 PM ESTOxygen Wsssfxzpkb66%06/06/2025 3:30 PM ESTInhaled Oxygen Concentration--Chowwj26.8 kg (167 lb)06/06/2025 11:34 AM EST Tqljqc453.7 cm (5' 8.39 )03/26/2025 2:00 PM EDTBody Mass Index25.1109 2:00 PM EDT Plan of Treatment DateTypeDepartmentCare Team (Latest Contact Info)Wyytevhitwi06/03/2025 1:00 PM ESTOffice Visit Ely Nickerson [address] [place] [address] [place] [address] [place] [address] 06/24/2025 9:00 AM ESTInfusion [facility] [address] [place] [address] 06/24/2025 10:10 AM ESTOffice Visit [facility] [address] 1st [place] [address] Chapo Navarro MD [address] Carvalho[address] [place] [address] 07/01/2025 8:30 AM ESTAppointment [facility] [address] [place] [address] 07/01/2025 9:45 AM ESTAppointment [facility] [address] [place] [phone] Health MaintenanceDue DateLast DoneCommentsCT Bqohvogenuew48/22/1959Colonoscopy 1958Colorectal Cancer Bwkgkkuhm87/22/1959FIT-DNA (Cologuard)1958FIT 1958Lipid Panel1958 1533Kkglyyqpanslu73/22/1959Welcome to Medicare Visit 1958MMR Vaccines (1 of 1 - Standard series)10/07/1959Zoster Vaccines (1 of 2)1977Lung Cancer Ociqbsoxo35/22/2009PSA Prostate Cancer Screening 2008bdominal Aortic Aneurysm (AAA) Iyvpursoa45/22/2024COVID-19 Vaccine (2 - Moderna risk series)Diabetes Ehgjmcerj61/20/2026 06/06/2025, 05/29/2025, 03/26/2025DTaP/Tdap/Td Vaccines (2 - Td or Tdap) Pneumococcal RoqlutzDlnijjjfa45/08/2025Influenza Vaccine Qzkwypihg80/17/2025RSV High Risk: (Elderly (60+) or Population) Lgwhndnkk40/17/2025Hepatitis C FtppzrmboGwxitggfc19/12/2025HIB VaccinesAged Out No longer eligible based on patient's age to complete this topicHPV VaccinesAged OutNo longer eligible based on patient's age to complete this topicHepatitis A VaccinesAged OutNo longer eligible based on patient's age to complete this topic Hepatitis B VaccinesAged OutNo longer eligible based on patient's age to complete this topicIPV VaccinesAged OutNo longer eligible based on patient's age to complete this topicMeningococcal VaccineAged OutNo longer eligible based on patient's age to complete this topicRotavirus VaccinesAged OutNo longer eligible based on patient's age to complete this topic Procedures Procedure NamePriorityDate/TimeAssociated DiagnosisCommentsCT BONE MARROW BIOPSY AND ASPIRATIONS QWMHVjjksnq05/20/2025 3:13 PM EST Primary myelofibrosis (Multi) Stem cell transplant candidate CYTOGENETICS CULTURE AND PTRMBakglya99/20/2025 2:20 PM EST Primary myelofibrosis (Multi) Stem cell transplant candidate UHTL ZAACJzitfqo16/20/2025 2:20 PM EST Primary myelofibrosis (Multi) Stem cell transplant candidate CYTOGENETICS RYJIGivlpfi70/20/2025 2:20 PM EST Primary myelofibrosis (Multi) Stem cell transplant candidate FLOW CYTOMETRY TEST (PERFORMABLE)Fqkybcv5106/06/2025 2:20 PM EST Primary myelofibrosis (Multi) Stem cell transplant candidate BONE MARROW CELL XTKODLPQJKEJDxwveyy16/20/2025 2:20 PM EST Primary myelofibrosis (Multi) Stem cell transplant candidate BONE MARROW HISTOLOGY PVAOTqelcys02/20/2025 2:20 PM EST Primary myelofibrosis (Multi) Stem cell transplant candidate BONE MARROW HISTOLOGY VFDFSghjdtk59/20/2025 2:20 PM EST Primary myelofibrosis (Multi) Stem cell transplant candidate MYELOID MALIGNANCIES ZQCWAHxiguws81/20/2025 2:20 PM EST Primary myelofibrosis (Multi) Stem cell transplant candidate SLIDE KXIOUMTIerdmim83/20/2025 2:20 PM EST Primary myelofibrosis (Multi) Stem cell transplant candidate MANUAL FQWCNQMTZTHFFacdbaq68/20/2025 11:17 AM EST Primary myelofibrosis (Multi) Stem cell transplant candidate HIFKZTLISTfyhoys83/20/2025 11:17 AM EST Primary myelofibrosis (Multi) Stem cell transplant candidate COMPREHENSIVE METABOLIC GKWAXPsfggxd73/20/2025 11:17 AM EST Primary myelofibrosis (Multi) Stem cell transplant candidate CBC WITH AUTO LAKKXWVGLCXNUorcmiu37/20/2025 11:17 AM EST Primary myelofibrosis (Multi) Stem cell transplant candidate HC BREATHING CAPACITY TEST - SPIROMETRY WITHOUT KVPHBEZMZEJUUEJfpkipq63/12/2025 3:20 PM EST Primary myelofibrosis (Multi) Stem cell transplant candidate CT CHEST WO IV NYFBEFOQTodwxph22/12/2025 2:16 PM EST Primary myelofibrosis (Multi) Stem cell transplant candidate MANUAL IEYPNFBJLQJEXmijbpr57/12/2025 1:07 PM EST Primary myelofibrosis (Multi) Stem cell transplant candidate HEPATITIS B SURFACE NKPURHJRzdytjh85/12/2025 1:07 PM EST Primary myelofibrosis (Multi) Stem cell transplant candidate HIV 1/2 ANTIGEN/ANTIBODY SCREEN WIH REFLEX TO IXWSLWKRIQMSAakwhjw94/12/2025 1:07 PM EST Primary myelofibrosis (Multi) Stem cell transplant candidate TOXOPLASMA ZPJLwegmbr00/12/2025 1:07 PM EST Primary myelofibrosis (Multi) Stem cell transplant candidate AUBREE-SALMON VIRUS ANTIBODY ASNDMRxmvxtw46/12/2025 1:07 PM EST Primary myelofibrosis (Multi) Stem cell transplant candidate VARICELLA ZOSTER ANTIBODY, MJXWczrkwe06/12/2025 1:07 PM EST Primary myelofibrosis (Multi) Stem cell transplant candidate HSV IGG1 AND IGG2 JYKdpxkwn64/12/2025 1:07 PM EST Primary myelofibrosis (Multi) Stem cell transplant candidate HEPATITIS B SURFACE NTHCCGSLRiqqwzh73/12/2025 1:07 PM EST Primary myelofibrosis (Multi) Stem cell transplant candidate CYTOMEGALOVIRUS ANTIBODY, GSPCtysooq11/12/2025 1:07 PM EST Primary myelofibrosis (Multi) Stem cell transplant candidate HTLV 1/2 WGZKXBSLOTVnsefil12/12/2025 1:07 PM EST Primary myelofibrosis (Multi) Stem cell transplant candidate SYPHILIS SCREENING WITH VXBINXXcrngcj06/12/2025 1:07 PM EST Primary myelofibrosis (Multi) Stem cell transplant candidate HEPATITIS B CORE ANTIBODY, CGZLTJdngqjw84/12/2025 1:07 PM EST Primary myelofibrosis (Multi) Stem cell transplant candidate HEPATITIS B CORE ANTIBODY, FVCGmfxtdg86/12/2025 1:07 PM EST Primary myelofibrosis (Multi) Stem cell transplant candidate HEPATITIS C KVSCCPLSFhujqjk17/12/2025 1:07 PM EST Primary myelofibrosis (Multi) Stem cell transplant candidate CYTOMEGALOVIRUS JNXQfkijmp79/12/2025 1:07 PM EST Primary myelofibrosis (Multi) Stem cell transplant candidate TYPE AND YZRWTWSeuncam55/12/2025 1:07 PM EST Primary myelofibrosis (Multi) Stem cell transplant candidate CHIMERISM RECIPIENT PRE-CPUJXGYMOHNtzzdmq01/12/2025 1:07 PM EST Primary myelofibrosis (Multi) Stem cell transplant candidate TFGENKOKDYrwiyqo86/12/2025 1:07 PM EST Primary myelofibrosis (Multi) Stem cell transplant candidate URIC IHUBAeqlfjh23/12/2025 1:07 PM EST Primary myelofibrosis (Multi) Stem cell transplant candidate C-REACTIVE MGOEKXIEpvxyfz49/12/2025 1:07 PM EST Primary myelofibrosis (Multi) Stem cell transplant candidate WYEKISCRHqewemi50/12/2025 1:07 PM EST Primary myelofibrosis (Multi) Stem cell transplant candidate VITAMIN D 25-HYDROXY,QVWFONooogud68/12/2025 1:07 PM EST Primary myelofibrosis (Multi) Stem cell transplant candidate Unspecified severe protein-calorie malnutrition (Multi) B-TYPE NATRIURETIC DHPEHZOWrfktoa55/12/2025 1:07 PM EST Primary myelofibrosis (Multi) Stem cell transplant candidate At risk for shortness of breath Other forms of dyspnea TROPONIN I, HIGH ULPMDQUGOGNUzsevkf61/12/2025 1:07 PM EST Primary myelofibrosis (Multi) Stem cell transplant candidate Encounter for monitoring cardiotoxic drug therapy ADENOVIRUS PCR QUANTITATIVE CUKVLTFlllzhd52/12/2025 1:07 PM EST Primary myelofibrosis (Multi) Stem cell transplant candidate EBV PCR, QUANTITATIVE, TDBXIOWpntdrf25/12/2025 1:07 PM EST Primary myelofibrosis (Multi) Stem cell transplant candidate CMV DNA, QUANTITATIVE, PCR, ZMMIYKHzwaqhg75/12/2025 1:07 PM EST Primary myelofibrosis (Multi) Stem cell transplant candidate HLA TRANSPLANT ANTIBODY GYYCTYkgbbzi70/12/2025 1:07 PM EST Primary myelofibrosis (Multi) Stem cell transplant candidate DRUG SCREEN, URINE WITH REFLEX TO URJLMOSMSNLZSvdfzmw25/12/2025 1:07 PM EST Primary myelofibrosis (Multi) Stem cell transplant candidate High risk medication use PROTIME-TZJWuhnqbu75/12/2025 1:07 PM EST Primary myelofibrosis (Multi) Stem cell transplant candidate Thrombocytopenia AXOOGozgzie14/12/2025 1:07 PM EST Primary myelofibrosis (Multi) Stem cell transplant candidate Thrombocytopenia COMPREHENSIVE METABOLIC SDQMWWljyohk50/12/2025 1:07 PM EST Primary myelofibrosis (Multi) Stem cell transplant candidate CBC WITH AUTO CKDMRTOGWDYVDfcuyyi52/12/2025 1:07 PM EST Primary myelofibrosis (Multi) Stem cell transplant candidate ALLO TRANSPLANT VIRAL ELHQXIfpnzon80/12/2025 1:07 PM EST Primary myelofibrosis (Multi) Stem cell transplant candidate TRANSTHORACIC ECHO (TTE) COMPLETE WITH BURPCHBPFeimwfu25/12/2025 10:51 AM EST Primary myelofibrosis (Multi) Stem cell transplant candidate Encounter for monitoring cardiotoxic drug therapy ECG 12-YUTUDfeninu17/12/2025 9:17 AM EST Primary myelofibrosis (Multi) Stem cell transplant candidate Encounter for monitoring cardiotoxic drug therapy FAMILY HLA COEKDacaiba00/30/2025 12:00 AM EDT Acute myeloblastic leukemia, not having achieved remission (Multi) SPECIMEN NDDOOHVOZeybhyy41/19/2025 12:00 AM EDT 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) SPECIMEN CMLAMJTBSczjwwg62/19/2025 12:00 AM EDT 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) SPECIMEN ZHWPHPIFPcxpjrg74/19/2025 12:00 AM EDT 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) SPECIMEN KWPBIQHLPwnhvhf94/19/2025 12:00 AM EDT 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) SPECIMEN HBSIOQZUQzgsqki57/19/2025 12:00 AM EDT 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) SPECIMEN GOOPCIXBCodynmi62/19/2025 12:00 AM EDT 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) HLA HR TYPE, CXCQLCXzoeluz13/09/2025 4:26 PM EDT Primary myelofibrosis (Multi) PATH REVIEW-CBC NEGLSKDEAYLKMuwcitn86/09/2025 4:25 PM EDT Primary myelofibrosis (Multi) MANUAL XBNVWNEBJCOHLofsxkq28/09/2025 4:25 PM EDT Primary myelofibrosis (Multi) XKIJEASMIuvocoh47/09/2025 4:25 PM EDT Primary myelofibrosis (Multi) LACTATE LQOSVWFQTFLTTNpaqkgg74/09/2025 4:25 PM EDT Primary myelofibrosis (Multi) OKZVPSPTITTQZIMqjdqez48/09/2025 4:25 PM EDT Primary myelofibrosis (Multi) COMPREHENSIVE METABOLIC BSXBMZzndukb96/09/2025 4:25 PM EDT Primary myelofibrosis (Multi) CBC WITH AUTO VCFOVFRRTIFXHrqaowo40/09/2025 4:25 PM EDT Primary myelofibrosis (Multi) TYPE AND FYTAYMQowzoiv15/09/2025 4:25 PM EDT Primary myelofibrosis (Multi) HLA DNA TYPE RMSYPJelbvyf99/09/2025 4:25 PM EDT Primary myelofibrosis (Multi) HLA TRANSPLANT ANTIBODY LYBEQAskbvhe39/09/2025 4:25 PM EDT Primary myelofibrosis (Multi) DNA CLASS I + II VERIFICATION FCBCRHRatobti75/09/2025 12:00 AM EDT 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 Data analyzed and images interpreted at [facility], [place], [place]. ?? MACRO: None ?? Signed by: Mat Rahman 06/06/2025 3:49 PM Dictation workstation: ?? [id number] Narrative 06/06/2025 3:49 PM EST Interpreted By: Mat Rahman and Donavon Grissom STUDY: CT-guided bone marrow biopsy; ??06/06/2025 3:13 pm ?? INDICATION: Signs/Symptoms:Pre BMT bone marrow. ?? ,D47.1 Chronic myeloproliferative disease (Multi),Z76.82 Awaiting organ transplant status ?? COMPARISON: CT abdomen pelvis 09/07/2024 ?? ACCESSION NUMBER(S): [id number] ?? ORDERING CLINICIAN: MI ENCARNACION ?? TECHNIQUE: INTERVENTIONALIST(S): MD Jaciel Pineda MD ?? CONSENT: The patient was [...] the interventional CT scanner bed. 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 ,D47.1 Chronic myeloproliferative disease (Multi),Z76.82 Awaiting organ transplant status COMPARISON: CT abdomen pelvis 09/07/2024 ACCESSION NUMBER(S): [id number] ORDERING CLINICIAN: MI ENCARNACION TECHNIQUE: INTERVENTIONALIST(S): MD Jaciel Pineda MD CONSENT: The patient was informed [...] the interventional CT scanner bed. 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 Data analyzed and images interpreted at [facility], [place], [place]. MACRO: None Signed by: Mat Rahman 06/06/2025 3:49 PM Dictation workstation: [id number] Authorizing ProviderResult TypeResult StatusReberta Encarnacion [facility] PROCEDURESFinal Result * Cytogenetics Culture and Hold (06/06/2025 2:20 PM EST)ComponentValueRef Range Test MethodAnalysis TimePerformed AtPathologist SignatureCytogenetics InterpretationPer Hematopathology Protocol, this 06/06/2025 Bone Marrow specimen has been placed on culture and hold status. Cultured cells will be kept until 12/09/2025. Chromosome and FISH testing can be added to the specimen up to 180 days after receipt. Please contact the Genetics lab at [phone] for details.06/12/2025 11:23 AM [facility] CYTOGENETICS LAB Electronically signed and reported byIlsa Bond MD, PhD, [facility] 06/12/2025 11:23 AM [facility] CYTOGENETICS LABSpecimen (Source)Anatomical Location / LateralityCollection Method / VolumeCollection TimeReceived TimeBone Marrow Specimen from bone marrow obtained by aspiration / Cqytibw9806/06/2025 2:20 PM EST 06/06/2025 3:07 PM EST Narrative Authorizing ProviderResult TypeResult StatusMi LEE CYTOGENETICS ORDERABLESFinal ResultPerforming OrganizationAddressCity/State/ZIP CodePhone Number [facility] [address] [place] [address] * [facility] HOLD (06/06/2025 2:20 PM EST)Specimen (Source)Anatomical Location / LateralityCollection Method / VolumeCollection TimeReceived TimeBone Marrow Specimen from bone marrow obtained by aspiration / UnknownNon-blood Collection / Dvazhni3006/06/2025 2:20 PM EST06/06/2025 3:07 PM EST Narrative Authorizing ProviderResult TypeResult StatusRebecca Kayode Encarnacion MDLAB BLOOD ORDERABLESFinal ResultPerforming OrganizationAddressCity/State/ZIP CodePhone Number [facility] [address] [place] [address] * CYTOGENETICS HOLD (06/06/2025 2:20 PM EST)Specimen (Source)Anatomical Location / LateralityCollection Method / VolumeCollection TimeReceived TimeBone Marrow Specimen from bone marrow obtained by aspiration / Pujqlja9906/06/2025 2:20 PM EST06/06/2025 3:07 PM EST Narrative Authorizing ProviderResult TypeResult StatusReberta Encarnacion MDLAB BLOOD ORDERABLESFinal ResultPerforming OrganizationAddressCity/State/ZIP CodePhone Number [facility] [address] [place] [address] * Slide Request (06/06/2025 2:20 PM EST)Specimen (Source)Anatomical Location / LateralityCollection Method / VolumeCollection TimeReceived TimeBloodVenous blood specimen / UnknownVenipuncture / Lijvdhg2606/06/2025 2:20 PM EST06/06/2025 3:07 PM EST Narrative Authorizing ProviderResult TypeResult StatusRebecca Kayode Encarnacion MDLAB BLOOD ORDERABLESFinal ResultPerforming OrganizationAddressCity/State/ZIP CodePhone Number [facility] [address] [facility] [address] [place] [address] * Myeloid Malignancies Panel (06/06/2025 2:20 PM EST)ComponentValueRef RangeTest MethodAnalysis TimePerformed AtPathologist SignatureMyeloid Malignancies ResultsDISEASE ASSOCIATED GENOMIC FINDINGS: JAK2 p.V617F ([id number] c.1849G>T) TET2 p.Q1627* ([id number] c.4879C>T) INTERPRETATION: JAK2 p.V617F VAF: 79% The presence of a JAK2 mutation is included in the diagnostic criteria for polycythemia vera, essential thrombocythemia, and primary myelofibrosis (WHO/ICC 2022). In myelofibrosis, detection of JAK2 p.V617F mutation confers an intermediate prognosis and higher risk of thrombosis as compared to patients with CALR type 1 mutation (NCCN MPN 1.5). TET2 p.Q1627* VAF: 52% In the absence of JAK2, CALR, and MPL mutations, TET2 mutations may serve as a clonal marker in thediagnostic criteria for primary myelofibrosis (WHO/ICC 2022). Mutations in epigenetic modifier genes including TET2 [...] Mutations in some homopolymeric regions (eg. ASXL1 p.A099Rdm*12) are not consistently detecte d by this [...] analytical performance characteristics have been determined by [facility]. This test has not been cleared or approved by the FDA;however, the FDA has determined that such approval is not necessary. The [facility] is certified under the Clinical Laboratory [...] alignment and variant calling. 06/12/2025 5:15 PM [facility] TRANSLATIONAL LABORATORYElectronically signed and reported byEdis Garcia MD PhD06/12/2025 5:15 PM [facility] TRANSLATIONAL LABORATORYSpecimen (Source)Anatomical Location / LateralityCollection Method / VolumeCollection TimeReceived TimeBone MarrowSpecimen from bone marrow obtained by aspiration / UnknownNon-blood Collection / Syaxfhx0706/06/2025 2:20 PM EST 06/06/2025 3:07 PM EST Narrative Authorizing ProviderResult TypeResult StatusReberta LEE [facility]LEC[facility] DIAGNOSTICS ORDERABLESFinal ResultPerforming OrganizationAddressCity/State/ZIP CodePhone Number [facility] [address] [place] [address] * Flow Cytometry Test (06/06/2025 2:20 PM EST)ComponentValueRef RangeTest Method Analysis TimePerformed AtPathologist SignatureCase ReportFlow Cytometry ?Case: [id number] ? Authorizing Provider: ??Mi Encarnacion MD ? Collected: ? 06/06/2025 1420 ? Ordering Location: ? [facility] ?? Received: ?06/06/2025 1507 ? Pathologist: ? Mando Johnson, DO ? Specimen: ?Bone Marrow Aspirate ? 06/10/2025 5:57 PM ESTUHCMC LABDiagnosisBONE MARROW ASPIRATE, FLOW CYTOMETRY: -- Increased myeloblasts (1.6% of total events) with slightly dim CD33. -- Monocytes with co-expression of CD56, see note. 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 Correlate with separate bone marrow pathology report. 06/10/2025 5:57 PM [facility] at 1757 ESTBy the signature on this report, the individual or group listed as making the Final Interpretation/Diagnosis certifies that they have reviewed this case and the staining reactivity of the antibodies and reagents in the analysis were determined to be acceptable. [facility]06/10/2025 5:57 PM ESTFORMERLY [facility] LABCell Populations 06/10/2025 5:57 PM ESTFORMERLY [facility] LABFlow DifferentialLymphocyte: 5 % CD3+CD4+: 64 % ; CD3+CD8+: 17 % ; Natural Killer Cells: 11 % CD19+: 5 % B Cell Light Chain Expression: Polyclonal Surface Rosman/Surface Lambda: 59:38 Monocyte: 2 % ; Dim CD56 expression in a large subset. Granulocyte: 53 % 06/10/2025 5:57 PM [facility] LABFlow Test OrderedAcute Panelnot established 06/10/2025 5:57 PM ESTNEW [facility] LABSpecimen Qyarlgwof57/24/2025 5:57 PM [facility] Cell Count1.40not established x10*3/uL06/10/2025 5:57 PM ESTFORMERLY [facility] LABNumber of Cells Rpittuxjw60/24/2025 5:57 PM [facility] LABComment:60,000-124,000Methodology Reference ranges not established. This test is a multicolor, whole blood lysis assay. It was developed and its performance characteristics determined by the Department of Pathology, [facility], and has not beencleared or approved by [...] CD177, CD13, CD163, CD11b, CD16, CD45. 1H: Rosman Surface, Lambda Surface, CD9, CD22, CD19, CD45. 1I: CD71, Glycophorin-A, CD9, CD105, CD36, CD45. 1J: CD371, CD34, CD38, CD71, CD19, CD45. 1K: TRBC1, TCR Gamma/Delta, CD4, CD8, CD3, CD45. 06/10/2025 5:57 PM [facility] LABSpecimen (Source)Anatomical Location / Laterality Collection Method / VolumeCollection TimeReceived TimeBone MarrowSpecimen from bone marrow obtained by aspiration / Gdhugxd8906/06/2025 2:20 PM EST06/06/2025 3:07 PM EST Narrative Authorizing ProviderResult TypeResult StatusReberta Encarnacion [facility] PATHOLOGY ORDERABLESFinal ResultPerforming OrganizationAddressty/State/[place] [address] * Bone marrow cell differential (06/06/2025 2:20 PM EST)Specimen (Source) Anatomical Location / LateralityCollection Method / VolumeCollection Time Received TimeBone MarrowSpecimen from bone marrow obtained by aspiration / Kprykth3206/06/2025 2:20 PM EST06/06/2025 3:07 PM EST Narrative Authorizing ProviderResult TypeResult StatusRemotion picture & television hospital Kayode EscobedoMcKitrick Hospital PATHOLOGY ORDERABLESFinal ResultPerforming [facility] HealthcareAddSelect [facility] CodePhone Number [place] [phone] * Bone marrow aspiration and exam (06/06/2025 2:20 PM EST)ComponentValueRef RangeTest MethodAnalysis TimePerformed AtPathologist SignatureCase Report Surgical Pathology ?Case: [id number] ? Authorizing Provider: ??Mi Encarnacion MD ? Collected: ? 06/06/2025 1420 ? Ordering Location: ? [facility] ?? Received: ?06/06/2025 1507 ? Pathologist: ? Mando Johnson, DO ? Specimens: ?? A) - BONE MARROW CLOT, RIGHT ILIAC CREST ? B) - BONE MARROW CORE BIOPSY, RIGHT ILIAC CREST ? C) - BONE MARROW ASPIRATE, RIGHT ILIAC CREST ? 06/10/2025 5:58 PM [facility] LABFINAL DIAGNOSISA, B & C. BONE MARROW [...] pending genetic studies is suggested.06/10/2025 5:58 PM [facility] at 1758 ESTComment 06/10/2025 5:58 PM [facility] LABBone Marrow DifferentialDifferential performed on touch imprint. [...] Myeloid/Erythroid Ratio 22.6 1.5-4.1 06/10/2025 5:58 PM [facility] LABMicroscopic Description PERIPHERAL SMEAR: Submitted Red cells: [...] resident Nicole Still MD. 06/10/2025 5:58 PM [facility] LABGross DescriptionA: Received in formalin, labeled with [...] in Rapid Elfego Immuno. SLO06/10/2025 5:58 PM [facility] LABDisclaimerOne or more of the assays performed on this specimen MAY be considered lab developed tests (LDT). Performance characteristics of some cytochemical, immunohistochemical, immunofluorescent, and chromogenic in-situ hybridization tests have been determined by the performing laboratory within [facility] ([facility] Department of Anatomic Pathology in a manner consistent with the Clinical Laboratory Improvement Amendments (CLIA) requirements. One or more of these tests may not have been cleared or approved by the FDA. The [facility] Department of Anatomic Pathology is regulated under CLIA as qualified to perform high complexity testing. These tests are used for clinical purposes only. These should not be regarded as investigational or for research. Positive and negative controls stain appropriately. 06/10/2025 5:58 PM [facility] LABSpecimen (Source)Anatomical Location / Laterality Collection Method [...] LEE PATHOLOGY ORDERABLESFinal ResultPerforming OrganizationAddressCity/State/ZIP CodePhone Number [facility] [address] [place] [phone] * (ABNORMAL) CBC and Auto Differential (06/06/2025 11:17 AM EST) Only the most recent of3 resultswithin the time period is included. ComponentValueRef RangeTest MethodAnalysis TimePerformed AtPathologist Signature WBC12.1(H)4.4 - 11.3 x10*3/uL LAB HEMATOLOGY METHOD 06/06/2025 12:34 PM [facility] LABnRBC0.4(H)0.0 - 0.0 /100 WBCs LAB HEMATOLOGY METHOD 06/06/2025 12:34 PM [facility] LABRBC2.56(L)4.50 - 5.90 x10*6/uL LAB HEMATOLOGY METHOD 06/06/2025 12:34 PM [facility] LABHemoglobin8.1(L)13.5 - 17.5 g/dL LAB HEMATOLOGY METHOD 06/06/2025 12:34 PM [facility] LEMOcvfjekmbr30.5(L)41.0 - 52.0 % LAB HEMATOLOGY METHOD 06/06/2025 12:34 PM [facility] LXDCUX9525 - 100 fL LAB HEMATOLOGY METHOD 06/06/2025 12:34 PM [facility] VOREQJ60.626.0 - 34.0 pg LAB HEMATOLOGY METHOD 06/06/2025 12:34 PM [facility] HDMBGYO93.532.0 - 36.0 g/dL LAB HEMATOLOGY METHOD 06/06/2025 12:34 PM [facility] BTVPGW85.7(H)11.5 - 14.5 % LAB HEMATOLOGY METHOD 06/06/2025 12:34 PM [facility] LNQPmkvulkmn735(L)150 - 450 x10*3/uL LAB HEMATOLOGY METHOD 06/06/2025 12:34 PM [facility] LABImmature Granulocytes %, Automated8.3(H)0.0 - 0.9 % LAB HEMATOLOGY METHOD 06/06/2025 12:34 PM [facility] LABComment:Immature Granulocyte Count (IG) includes promyelocytes, myelocytes and metamyelocytes but does not i nclude bands. Percent differential counts (%) should be interpreted in the context of the absolute cell counts (cells/UL).Immature Granulocytes Absolute, Automated1.01(H)0.00 - 0.70 x10*3/uL LAB HEMATOLOGY METHOD 06/06/2025 12:34 PM [facility] LABSpecimen (Source)Anatomical Location / LateralityCollection Method / VolumeCollection TimeReceived TimeBlood Venous blood specimen / UnknownVenipuncture / Vzxvafy4106/06/2025 11:17 AM EST 06/06/2025 11:17 AM EST Narrative [facility] - 06/06/2025 12:34 PM EST The [...] longer being reported. Authorizing ProviderResult TypeResult StatusRebecjacqueline Encarnacion [facility] BLOOD ORDERABLESFinal ResultPerforming OrganizationAddressCity/State/ZIP CodePhone Number [facility] [address] [place] [address] * (ABNORMAL) Manual Differential (06/06/2025 11:17 AM EST) Only the most recent of3 resultswithin the time period is included. ComponentValueRef RangeTest MethodAnalysis TimePerformed AtPathologist Signature Neutrophils %, Ymgtme77.040.0 - 80.0 %06/06/2025 12:34 PM [facility] LABComment:Percent differential counts (%) should be interpreted in the context of the absolute cell counts (cells/uL).Bands %, Manual5.00.0 - 5.0 % 06/06/2025 12:34 PM [facility] LABLymphocytes %, Zxzblo44.0 13.0 - 44.0 %06/06/2025 12:34 PM [facility] LABMonocytes %, Manual6.02.0 - 10.0 %06/06/2025 12:34 PM [facility] LAB Eosinophils %, Manual1.00.0 - 6.0 %06/06/2025 12:34 PM [facility] LABBasophils %, Manual1.00.0 - 2.0 %06/06/2025 12:34 PM [facility] LABMetamyelocytes %, Manual1.00.0 - 0.0 %06/06/2025 12:34 PM [facility] LABMyelocytes %, Manual2.00.0 - 0.0 %06/06/2025 12:34 PM [facility] LABBlasts %, Manual6.0(H)0.0 - 0.0 %06/06/2025 12:34 PM [facility] LABSeg Neutrophils Absolute, Manual8.11(H) 1.20 - 7.00 x10*3/uL06/06/2025 12:34 PM [facility] LABBands Absolute, Manual0.610.00 - 0.70 x10*3/uL06/06/2025 12:34 PM [facility] LABLymphocytes Absolute, Manual1.331.20 - 4.80 x10*3/uL06/06/2025 12:34 PM [facility] LABMonocytes Absolute, Manual0.730.10 - 1.00 x10*3/uL06/06/2025 12:34 PM [facility] LABEosinophils Absolute, Manual0.120.00 - 0.70 x10*3/uL06/06/2025 12:34 PM [facility] LABBasophils Absolute, Manual0.12(H)0.00 - 0.10 x10*3/uL06/06/2025 12:34 PM [facility] LABMetamyelocytes Absolute, Manual0.12 0.00 - 0.00 x10*3/uL06/06/2025 12:34 PM [facility] LAB Myelocytes Absolute, Manual0.240.00 - 0.00 x10*3/uL06/06/2025 12:34 PM [facility] LABBlasts Absolute, Manual0.73(H)0.00 - 0.00 x10*3/uL 06/06/2025 12:34 PM [facility] LABTotal Cells Rteihsm733 06/06/2025 12:34 PM [facility] LABNeutrophils Absolute, Manual 8.72(H)1.20 - 7.70 x10*3/uL06/06/2025 12:34 PM [facility] LAB RBC MorphologySee Below06/06/2025 12:34 PM [facility] LAB VwylgavmzobplFnwi52/20/2025 12:34 PM [facility] LABRBC ZizjusehpEwf38/20/2025 12:34 PM [facility] LABOvalocytesFew 06/06/2025 12:34 PM [facility] LABTeardrop HprdhQsl92/20/2025 12:34 PM [facility] LABSpecimen (Source)Anatomical Location / LateralityCollection Method / VolumeCollection TimeReceived TimeBloodVenous blood specimen / UnknownVenipuncture / Rfycjjo8806/06/2025 11:17 AM EST06/06/2025 11:17 AM EST Narrative Authorizing ProviderResult TypeResult StatusRebecjacqueline Encarnacion [facility] BLOOD ORDERABLESFinal ResultPerforming OrganizationAddressCity/State/ZIP CodePhone Number [facility] [address] [place] [address] * Magnesium (06/06/2025 11:17 AM EST) Only the most recent of2 resultswithin the time period is included. ComponentValueRef RangeTest MethodAnalysis TimePerformed AtPathologist Signature Magnesium1.801.60 - 2.40 mg/dL LAB CHEMISTRY METHOD 06/06/2025 12:08 PM [facility] LABSpecimen (Source)Anatomical Location / LateralityCollection Method / VolumeCollection TimeReceived TimeBlood Venous blood specimen / UnknownVenipuncture / Peehhxg6206/06/2025 11:17 AM EST 06/06/2025 11:17 AM EST Narrative Authorizing ProviderResult TypeResult StatusRebecjacqueline [facility] BLOOD ORDERABLESFinal ResultPerforming OrganizationAddressCity/State/ZIP CodePhone Number [facility] [address] [place] [address] * (ABNORMAL) Comprehensive Metabolic Panel (06/06/2025 11:17 AM EST) Only the most recent of3 resultswithin the time period is included. ComponentValueRef RangeTest MethodAnalysis TimePerformed AtPathologist Signature Kbyusno0712 - 99 mg/dL LAB CHEMISTRY METHOD 06/06/2025 12:08 PM [facility] KZHGgtmwy557(L)136 - 145 mmol/L LAB CHEMISTRY METHOD 06/06/2025 12:08 PM [facility] LABPotassium4.83.5 - 5.3 mmol/L LAB CHEMISTRY METHOD 06/06/2025 12:08 PM [facility] ITDIrywvqfe87138 - 107 mmol/L LAB CHEMISTRY METHOD 06/06/2025 12:08 PM [facility] FRFJpiibxccmje1570 - 32 mmol/L LAB CHEMISTRY METHOD 06/06/2025 12:08 PM [facility] LABComment:Bicarbonate results may be falsely elevated when Lactate Dehydrogenase (LDH) concentrations exceed 2 ,000 U/L due to a temporary reagent manufacturing issue. If significantly elevated LDH levels are suspected, interpret bicarbonate results with caution, correlate with the patient???s clinical status, and consider confirming CO2 values using a blood gas analyzer.Anion Pvw9484 - 20 mmol/L LAB CHEMISTRY METHOD 06/06/2025 12:08 PM [facility] LABUrea Kdvhvhtu986 - 23 mg/dL LAB CHEMISTRY METHOD 06/06/2025 12:08 PM [facility] LABCreatinine1.060.50 - 1.30 mg/dL LAB CHEMISTRY METHOD 06/06/2025 12:08 PM [facility] BOXwRYG51>60 mL/min/1.73m*2 LAB CHEMISTRY METHOD 06/06/2025 12:08 PM [facility] LABComment: Calculations of estimated GFR are performed using the 2021 CKD-EPI Study Refit equation without therace variable for the IDMS-Traceable creatinine methods. https://jasn.asnjournals.org/content//ASN.2347640298 Calcium9.38.6 - 10.3 mg/dL LAB CHEMISTRY METHOD 06/06/2025 12:08 PM [facility] LABAlbumin4.53.4 - 5.0 g/dL LAB CHEMISTRY METHOD 06/06/2025 12:08 PM [facility] LABAlkaline Ishorotydtx4281 - 136 U/L LAB CHEMISTRY METHOD 06/06/2025 12:08 PM [facility] LABTotal Protein8.16.4 - 8.2 g/dL LAB CHEMISTRY METHOD 06/06/2025 12:08 PM [facility] DEELEY185 - 39 U/L LAB CHEMISTRY METHOD 06/06/2025 12:08 PM [facility] LABBilirubin, Total0.90.0 - 1.2 mg/dL LAB CHEMISTRY METHOD 06/06/2025 12:08 PM [facility] PPEDEP4532 - 52 U/L LAB CHEMISTRY METHOD 06/06/2025 12:08 PM [facility] LABComment:Patients treated with Sulfasalazine may generate falsely decreased results for ALT.Specimen (Source)Anatomical Location / LateralityCollection Method / VolumeCollection TimeReceived TimeBloodVenous blood specimen / UnknownVenipuncture / Unknown 06/06/2025 11:17 AM EST06/06/2025 11:17 AM EST Narrative Authorizing ProviderResult TypeResult StatusRebecjacqueline LEE BLOOD ORDERABLESFinal ResultPerforming OrganizationAddressCity/State/ZIP CodePhone Number [facility] [address] [place] [address] * Complete Pulmonary Function Test (Spirometry/DLCO/Lung Volumes) (05/29/2025 3:20 PM EST)ComponentValueRef RangeTest MethodAnalysis TimePerformed At Pathologist SignatureFVC3.94MGC ASCENTFVC%102MGC HGMRFWPMA49.70MGC ASCENTFEV1% 91MGC ASCENTFEV1/FVC0.69MGC ASCENTPEF6.80MGC ASCENTPEF%82MGC ASCENTFEF 25-75 1.28MGC ASCENTFEF 25-75%51MGC ASCENTPIF3.14MGC WIWCDHWLX46.90MGC ASCENTTPEF 0.09MGC ASCENTBEV0.11MGC ASCENTVC3.94MGC ASCENTVC%102MGC ASCENTIC2.07MGC ASCENTIC%63MGC ASCENTERV1.86MGC ASCENTERV%161MGC ASCENTTGV3.96MGC ASCENTTGV% 112MGC ASCENTRV2.09MGC ASCENTRV%91MGC ASCENTTLC6.03MGC ASCENTTLC%89MGC ASCENT RV/OGX08DXU ASCENTDLCO (Hb unc)10.84MGC ASCENTDLCO% (Hb unc)43MGC ASCENTDLCO (Hb cor)10.66MGC ASCENTDLCO% (Hb cor)63MGC ASCENTDLCO/VA2.11MGC ASCENTVA5.05 MGC ASCENTBHT9.99MGC ASCENTDLCO (IVC)3.20MGC ASCENTSpecimen (Source)Anatomical Location / LateralityCollection Method / VolumeCollection TimeReceived Time 05/29/2025 2:41 PM EST05/29/2025 2:41 PM EST Narrative Authorizing ProviderResult TypeResult StatusRebecca B [facility] ORDERABLES Final ResultPerforming OrganizationAddressCity/State/ZIP CodePhone Number [facility] * CT chest wo IV contrast (05/29/2025 2:16 PM EST)Anatomical RegionLaterality ModalityThoracic, ChestComputed TomographySpecimen (Source)Anatomical Location / LateralityCollection Method / VolumeCollection TimeReceived Time05/29/2025 3:57 PM EST05/29/2025 3:57 PM EST Impressions 05/29/2025 3:56 PM EST 1. Evaluation of the lung parenchyma demonstrates [...] with the patient's history of myeloproliferative disease. ?? MACRO: None ?? Signed by: Ramiro Nolasco 05/29/2025 3:56 PM Dictation workstation: ?? [id number] Narrative 05/29/2025 3:56 PM EST Interpreted By: Ramiro Nolasco, STUDY: CT CHEST WO IV CONTRAST; ??05/29/2025 2:16 pm ?? INDICATION: Signs/Symptoms:Allo PBSCT eval. ?? ,D47.1 Chronic myeloproliferative disease (Multi),Z76.82 Awaiting organ transplant status ?? COMPARISON: 09/08/2024 ?? ACCESSION NUMBER(S): [id number] ?? ORDERING CLINICIAN: MI ENCARNACION ?? TECHNIQUE: Helical data acquisition of the chest was obtained ??without IV contrast material. ??Images were reformatted in axial, coronal, and sagittal planes. ?? FINDINGS: LUNGS AND AIRWAYS: The trachea and central airways are patent. No endobronchial lesion. ?? Evaluation of the lung parenchyma demonstrates significant interval improvement in the edema and effusions seen on the study of 09/08/2024. Evaluation of the lung parenchyma demonstrates persistent subpleural upper lobe ground-glass opacities. There is bibasilar opacities most likely atelectatic in nature. There are multiple calcified granulomas. There are no suspicious parenchymal lung nodules. ?? MEDIASTINUM AND JUDD, LOWER NECK AND AXILLA: The visualized thyroid gland is within normal limits. ?? Interval increase in size of multiple anterior mediastinal lymph nodes seen on the prior CT scan of 09/08/2024. Multiple calcified mediastinal and hilar lymph nodes consistent with remote granulomatous exposure. ?? Esophagus appears within normal limits as seen. ?? HEART AND VESSELS: The thoracic aorta is of normal course and caliber without vascular calcifications. ?? Main pulmonary artery and its branches are normal in caliber. ?? There are severe coronary artery calcifications. The study is not optimized for evaluation of coronary arteries. ?? The cardiac chambers are not enlarged. ?? No evidence of pericardial effusion. ?? UPPER ABDOMEN: There is splenomegaly. There are multiple splenic calcifications consistent with remote granulomatous exposure. ?? CHEST WALL AND OSSEOUS STRUCTURES: There are no suspicious osseous lesions. Multilevel degenerative changes are present ?? Procedure Note Brit Nolasco MD - 05/29/2025 Interpreted By: Ramiro Nolasco, STUDY: CT CHEST WO IV CONTRAST; 05/29/2025 2:16 pm INDICATION: Signs/Symptoms:Allo PBSCT eval. ,D47.1 Chronic myeloproliferative disease (Multi),Z76.82 Awaiting organ transplant status COMPARISON: 09/08/2024 ACCESSION NUMBER(S): [id number] ORDERING CLINICIAN: MI ENCARNACION TECHNIQUE: Helical data acquisition of the chest [...] Ramiro Nolasco 05/29/2025 3:56 PM Dictation workstation: [id number] Authorizing ProviderResult TypeResult StatusMi RAYOG CT PROCEDURESFinal Result * HLA Transplant Antibody Panel (05/29/2025 1:07 PM EST) Only the most recent of2 resultswithin the time period is included. ComponentValueRef RangeTest MethodAnalysis TimePerformed AtPathologist Signature HLA Class I SP AB ID, 05/31/2025 6:53 AM EST HLA LABHLA Class II SP AB ID, 05/31/2025 6:53 AM [facility] HLA LABHLA ResultsSee Woiehhyc59/14/2025 6:53 AM EST HLA LABSpecimen (Source)Anatomical Location / LateralityCollection Method / VolumeCollection TimeReceived TimeBloodVenous blood specimen / Unknown Venipuncture / Gzincqy4805/29/2025 1:07 PM EST05/29/2025 1:07 PM EST Narrative HLA LAB - 05/31/2025 6:53 AM EST Test performed at: [facility] Immunogen[facility] Laboratory [facility], [address]th Floor [address] [place] [address] Authorizing ProviderResult TypeResult StatusMi LEE BLOOD ORDERABLESFinal ResultPerforming OrganizationAddressCity/State/ZIP CodePhone Number [facility] [address] [place] [address] * Troponin I, High Sensitivity (05/29/2025 1:07 PM EST)ComponentValueRef Range Test MethodAnalysis TimePerformed AtPathologist SignatureTroponin I, High Sensitivity (CMC)60 - 53 ng/L LAB IMMUNOASSAY METHOD 05/29/2025 3:24 PM [facility] LABSpecimen (Source)Anatomical Location / Laterality Collection Method / VolumeCollection TimeReceived TimeBloodVenous blood specimen / UnknownVenipuncture / Lgelbxu9805/29/2025 1:07 PM EST05/29/2025 1:07 PM EST Narrative [facility] - 05/29/2025 3:24 PM EST Less than 99th percentile of normal range cutoff- Female and children under 18 years old <35 ng/L; Male <54 ng/L: Negative Repeat testing should be performed if clinically indicated. Female and children under 18 years old 35-120 ng/L; Male 54-120 ng/L: Consistent with possible cardiac damage and possible increased clinical risk. Serial measurements may help to assess extent of myocardial damage. >120 ng/L: Consistent with cardiac damage, increased clinical risk and myocardial infarction. Serial measurements may help assess extent of myocardial damage. NOTE: Children less than 1 year old may have higher baseline troponin levels and results should be interpreted in conjunction with the overall clinical context. NOTE: Troponin I testing is performed using a different testing methodology at [facility] than at other [facility]. Direct result comparisons should only be made within the same method. Authorizing ProviderResult TypeResult StatusReberta Encarnacion [place] [facility] BLOOD ORDERABLESFinal ResultPerforming OrganizationAddressCity/State/ZIP CodePhone Number [facility] [address] [phone] * Syphilis Screen with Reflex (05/29/2025 1:07 PM EST)ComponentValueRef Range Test MethodAnalysis TimePerformed AtPathologist SignatureSyphilis Total Ab NonreactiveNonreactive LAB CHEMISTRY METHOD 05/29/2025 5:23 PM [facility] LABComment: No significant level of Treponema pallidum antibody detected. Repeat testing in 2 to 4 weeks may be considered if early infection or incubating syphilis infection is suspected. Specimen (Source)Anatomical Location / LateralityCollection Method / Volume Collection TimeReceived TimeBloodVenous blood specimen / UnknownVenipuncture / [id number]/29/2025 1:07 PM EST05/29/2025 1:07 PM EST Narrative Authorizing ProviderResult TypeResult StatusReberta Encarnacion [facility] BLOOD ORDERABLESFinal ResultPerforming OrganizationAddressty/State/ZIP CodePhone Number [facility] [address] [address] * (ABNORMAL) HSV1 IgG and HSV2 IgG (05/29/2025 1:07 PM EST)ComponentValueRef RangeTest MethodAnalysis TimePerformed AtPathologist SignatureHSV 1, IgG2.8(H) <0.9 INDEX LAB CHEMISTRY METHOD 05/29/2025 7:19 PM ESTNEW LIFEC[facility] LABComment: NEGATIVE <0.9 EQUIVOCAL >=0.90 <=1.10 POSITIVE >1.10 HSV 2, IgG<0.2<0.9 INDEX LAB CHEMISTRY METHOD 05/29/2025 7:19 PM [facility] LABComment: NEGATIVE <0.9 EQUIVOCAL >=0.90 <=1.10 POSITIVE >1.10 Specimen (Source)Anatomical Location / LateralityCollection Method / Volume Collection TimeReceived TimeBloodVenous blood specimen / UnknownVenipuncture / [id number]/29/2025 1:07 PM EST05/29/2025 1:07 PM EST Narrative [facility] - 05/29/2025 7:19 PM EST POTENTIAL FOR CROSS-REACTIVITY BETWEEN HSV I AND HSV II EXISTS. Authorizing ProviderResult TypeResult StatusReberta Encarnacion [facility] BLOOD ORDERABLESFinal ResultPerforming OrganizationAddressty/State/ZIP CodePhone Number [facility] [address] [place] [phone] * Drug Screen, Urine With Reflex to Confirmation (05/29/2025 1:07 PM EST) ComponentValueRef RangeTest MethodAnalysis TimePerformed AtPathologist SignatureAmphetamine Screen, UrinePresumptive NegativePresumptive Negative LAB CHEMISTRY METHOD 05/29/2025 4:27 PM [facility] LABComment: CUTOFF LEVEL: 500 NG/ML Cross-reactivity has been reported with high concentrations of the following drugs: buproprion, chloroquine, chlorpromazine, ephedrine, mephentermine, fenfluramine, phentermine, phenylpropanolamine, pseudoephedrine, and propranolol. Barbiturate Screen, UrinePresumptive NegativePresumptive Negative LAB CHEMISTRY METHOD 05/29/2025 4:27 PM [facility] LABComment:CUTOFF LEVEL: 200 NG/MLBenzodiazepines Screen, UrinePresumptive NegativePresumptive Negative LAB CHEMISTRY METHOD 05/29/2025 4:27 PM [facility] LABComment:CUTOFF LEVEL: 200 NG/MLCannabinoid Screen, UrinePresumptive NegativePresumptive Negative LAB CHEMISTRY METHOD 05/29/2025 4:27 PM [facility] LABComment:CUTOFF LEVEL: 50 NG/MLCocaine Metabolite Screen, UrinePresumptive NegativePresumptive Negative LAB CHEMISTRY METHOD 05/29/2025 4:27 PM [facility] LABComment:CUTOFF LEVEL: 150 NG/MLFentanyl Screen, UrinePresumptive NegativePresumptive Negative LAB CHEMISTRY METHOD 05/29/2025 4:27 PM [facility] LABComment:CUTOFF LEVEL: 5 NG/MLOpiate Screen, Urine Presumptive NegativePresumptive Negative LAB CHEMISTRY METHOD 05/29/2025 4:27 PM [facility] LABComment: CUTOFF LEVEL: 300 NG/ML The opiate screen does not detect fentanyl, meperidine, or tramadol. Oxycodone is not consistently detected (refer to Oxycodone Screen, Urine result). Oxycodone Screen, UrinePresumptive NegativePresumptive Negative LAB CHEMISTRY METHOD 05/29/2025 4:27 PM [facility] LABComment: CUTOFF LEVEL: 100 NG/ML This test will accurately detect both oxycodone and oxymorphone. PCP Screen, UrinePresumptive NegativePresumptive Negative LAB CHEMISTRY METHOD 05/29/2025 4:27 PM [facility] LABComment: CUTOFF LEVEL: ??25 NG/ML Cross-reactivity has been reported with dextromethorphan. Methadone Screen, UrinePresumptive NegativePresumptive Negative LAB CHEMISTRY METHOD 05/29/2025 4:27 PM [facility] LABComment: CUTOFF LEVEL: 150 NG/ML The metabolite F-hymfq-katxuxkieutbem (LAAM) is not detected by this method in concentrations that would be found in the urine of patients on LAAM therapy. Specimen (Source)Anatomical Location / LateralityCollection Method / Volume Collection TimeReceived TimeUrineUrine specimen obtained by clean catch procedure / Iqcbzqk2805/29/2025 1:07 PM EST05/29/2025 1:07 PM EST Narrative [facility] - 05/29/2025 4:27 PM EST Drug screen results are presumptive and should not be used to assess compliance with prescribed medication. Definitive confirmatory drug testing has been added to this sample for any positive screen result and will be reported separately. Toxicology screening results are reported qualitatively. The concentration must be greater than or equal to the cutoff to be reported as positive. The concentration at which the screening test can detect an individual drug or metabolite varies. The absence of expected drug(s) and/or drug metabolite(s) may indicate non-compliance, inappropriate timing of specimen collection relative to drug administration, poor drug absorption, diluted/adulterated urine, or limitations of testing. For medical purposes only; not valid for forensic use. Interpretive questions should be directed to the laboratory medical directors. Authorizing ProviderResult TypeResult StatusRebecjacqueline LEE URINE ORDERABLESFinal ResultPerforming OrganizationAddressCity/State/ZIP CodePhone Number [facility] [address] [place], [place] [phone] * HTLV 1/2 Antibodies (05/29/2025 1:07 PM EST)ComponentValueRef RangeTest Method Analysis TimePerformed AtPathologist SignatureHTLV 1/2 AntibodiesNegative Ezkpwiqj98/13/2025 9:15 PM [facility] ([facility])Comment: Based on the non-reactive anti-HTLV HEMA screen, the HTLV Western Blot is not indicated and therefore not performed. INTERPRETIVE INFORMATION: ??HTLV I/II Antibodies w/Reflex ? to Confirm This assay should not be used for blood donor screening, associated re-entry protocols, or for screening Human Cell, Tissues and Cellular and Tissue-Based Products (HCT/P). Performed By: [facility] [address] [place] [address] Ring Conductor: Fredrick Barnes MD, PhD CLIA Number: [id number] Specimen (Source)Anatomical Location / LateralityCollection Method / Volume Collection TimeReceived TimeBloodVenous blood specimen / UnknownVenipuncture / Dhbxjmt1205/29/2025 1:07 PM EST11/06/2025 1:07 PM EST Narrative Authorizing ProviderResult TypeResult StatusReberta LEE BLOOD ORDERABLESFinal ResultPerforming OrganizationAddressCity/State/ZIP CodePhone Number [facility] Gaspar (BEAKER) [place] [address] * Aubree-Salmon PCR, Quant,Plasma (05/29/2025 1:07 PM EST)ComponentValueRef Range Test MethodAnalysis TimePerformed AtPathologist SignatureEBV DNA ResultNot DetectedNot Xofotlmm63/13/2025 2:17 PM ESTNEW [facility] LABEBV PCR Plasma Log 05/30/2025 2:17 PM [facility] LABComment:Not calculatedSpecimen (Source) Anatomical Location / LateralityCollection Method / VolumeCollection Time Received TimeBloodPlasma specimen / Llhdrrk2905/29/2025 1:07 PM EST05/29/2025 1:07 PM EST Narrative [facility] - 05/30/2025 2:17 PM EST Reportable Range: 35-100,000,000 IU/mL. The prabhu EBV test is an in vitro nucleic acid amplification dual target assay for the quantitationof Aubree-Salmon virus (EBV) DNA in human EDTA plasma on the prabhu 6800/8800 Systems. The test employs a dual target virus specific approach from highly-conserved regions of the EBV located in the EBVEBNA-1 gene and the EBV BMRF gene. The analytical quantification range of this assay has been determined to be 35 to 100,000,000 IU/ml in plasma. As with any molecular test, mutations within the target regions of prabhu?? EBV could affect primer and/or probe binding resulting in the under-quantitation of virus or failure to detect the presence of virus. If the assay DETECTED the presence of the virus but was not able to accurately quantify the number of copies, the test result will be reported as <35 Detected or >100,000,000 Detected . The prabhu?? EBV test is intended for use as an aid in the management of EBV in transplant patients.In patients undergoing monitoring of EBV, serial DNA measurements can be used to indicate the need for potential treatment changes and to assess response to treatment. The results from prabhu?? EBV are intended to be read and analyzed by a qualified licensed healthcare professional in conjunction with clinical signs and symptoms and relevant laboratory findings. Negative test results do not preclude EBV infection or EBV disease. Test results must not be the sole basis for patient management decisions. This test is approved by the [place] Food and Drug Administration, and its performance characteristics verified by the Molecular Diagnostic Laboratory, Department of Pathology, [facility]. Authorizing ProviderResult TypeResult StatusReberta LEE [facility] ORDERABLESFinal ResultPerforming OrganizationAddressCity/State/ZIP CodePhone Number [facility] [address] [phone] * Chimerism Recipient Pre-Transplant (05/29/2025 1:07 PM EST)ComponentValueRef RangeTest MethodAnalysis TimePerformed AtPathologist SignatureChimerism InterpretationRESULT: SUCCESSFUL PRE-TRANSPLANT ANALYSIS OF POLYMORPHIC MARKERS FOR CHIMERISM STUDIES INTERPRETATION: The sample from this recipient was used to establish baseline allele information using a panel of 84 polymorphic DNA loci and compared to that of the planned donor. A maximum of 17 informative loci have been identified for potential future analysis. METHODOLOGY: DNA was extracted from the specimen provided and next generation sequencing was used to analyze theallele information on a panel of 84 single nucleotide polymorphic DNA loci. [Clin Chem. 2020Nov 13;67(5):781-787. PMID: [id number]]. DISCLAIMER: This laboratory developed test was developed and its analytical performance characteristics have been determined by [facility] ([facility]). This test has not been cleared or approved by the FDA; however, the FDA has determined that such approval is not necessary. The [facility] is certified under the Clinical Laboratory Improvement Amendments of 1988 (CLIA-88) as qualified to perform high complexity testing.06/05/2025 3:43 PM [facility] TRANSLATIONAL LABORATORYElectronically signed and reported byIlsa Bond MD, PhD, [facility] 06/05/2025 3:43 PM [facility] TRANSLATIONAL LABORATORYSpecimen (Source)Anatomical Location / LateralityCollection Method / VolumeCollection TimeReceived TimeBlood Venous blood specimen / UnknownVenipuncture / Davkbem0905/29/2025 1:07 PM EST 05/29/2025 1:07 PM EST Narrative Authorizing ProviderResult TypeResult StatusReberta LEE [facility] ORDERABLESFinal ResultPerforming OrganizationAddressCity/State/ZIP CodePhone Number [facility] [address] [place] [address] * Adenovirus PCR Quantitative Plasma (05/29/2025 1:07 PM EST)ComponentValueRef RangeTest MethodAnalysis TimePerformed AtPathologist SignatureAdenovirus PCR,PlasmaNot DetectedNot Detected copies/mL05/31/2025 1:40 PM [facility] GroupACOR REF LABComment: Assay Range: 190 copies/mL to 1.00E+10 copies/mL The limit of quantitation (LOQ) is 190 copies/mL. Adenovirus DNA detected below the LOQ will be reported as Detected:<190 copies/mL. This test was developed and its performance characteristics determined by [facility]. It has not been cleared or approved by the U.S. Food and Drug Administration. Results should be used in conjunction with clinical findings, and should not form the sole basis for a diagnosis or treatment decision. Testing Performed at: [facility] [id number] [place] [address], [facility] [address] [place] [address] Certified First Assistant: Adriel Serna, PhD BCLChidi (ABB) CLIA # [id number] FLAG Interpretation: A = Abnormal, H = High, L = Low Specimen (Source)Anatomical Location / LateralityCollection Method / Volume Collection TimeReceived TimeBloodVenous blood specimen / UnknownVenipuncture / Hqctftk5105/29/2025 1:07 PM EST05/29/2025 1:07 PM EST Narrative Authorizing ProviderResult TypeResult StatusRebecca Kayode Encarnacion [facility] BLOOD ORDERABLESFinal ResultPerforming OrganizationAddressCity/State/ZIP CodePhone Number [employer] [address] [address] * Hepatitis C Antibody (05/29/2025 1:07 PM EST)ComponentValueRef RangeTest MethodAnalysis TimePerformed AtPathologist SignatureHepatitis C Anitbody NonreactiveNonreactive LAB IMMUNOASSAY METHOD 05/29/2025 4:01 PM [facility] LABComment:Results from patients taking biotin supplements or receiving high-dose biotin therapy should be interpreted with caution due to possible interference with this test. Providers may contact their locallaboratory for further information.Specimen (Source)Anatomical Location / LateralityCollection Method / VolumeCollection TimeReceived TimeBloodVenous blood specimen / UnknownVenipuncture / Rqzhphb1605/29/2025 1:07 PM EST05/29/2025 1:07 PM EST Narrative Authorizing ProviderResult TypeResult StatusReberta Encarnacion [facility] BLOOD ORDERABLESFinal ResultPerforming OrganizationAddressCity/State/ZIP CodePhone Number [facility] [address] [facility] [address] [phone] * (ABNORMAL) Aubree-Salmon Virus Antibody Panel (05/29/2025 1:07 PM EST)Component ValueRef RangeTest MethodAnalysis TimePerformed AtPathologist SignatureEBV VCA, IgGPositive(A)Negative LAB CHEMISTRY METHOD 05/29/2025 7:19 PM [facility] LABEBV VCA, IgMNegativeNegative LAB CHEMISTRY METHOD 05/29/2025 7:19 PM [facility] LABEBV Early Antigen Antibody, IgGPositive(A) Negative LAB CHEMISTRY METHOD 05/29/2025 7:19 PM [facility] Nuclear Antigen Antibody, IgGPositive(A) Negative LAB CHEMISTRY METHOD 05/29/2025 7:19 PM [facility] LABSpecimen (Source)Anatomical Location / Laterality Collection Method / VolumeCollection TimeReceived TimeBloodVenous blood specimen / UnknownVenipuncture / Siwjphk6205/29/2025 1:07 PM EST05/29/2025 1:07 PM EST Narrative [facility] - 05/29/2025 7:19 PM EST EBV INTERPRETATION CHART PRIMARY ACUTE VCA-IGG: +/- VCA-IGM: +/- EA-IGG: ??+/- NA-IGG: ?? - LATE ACUTE VCA-IGG: ??+ VCA-IGM: +/- EA-IGG: ??+/- NA-IGG: ??+/- RECOVERING VCA-IGG: ??+ VCA-IGM: ??- EA-IGG: ?? + NA-IGG: ?? - PREVIOUS INFECTION VCA-IGG: ??+ VCA-IGM: ??- EA-IGG: ?? - NA-IGG: ??+/- Authorizing ProviderResult TypeResult StatusRebecjacqueline LEE BLOOD ORDERABLESFinal ResultPerforming OrganizationAddressCity/State/ZIP CodePhone Number [facility] [address] [address] [address] [place] [phone] * Cytomegalovirus Antibody, IgM (05/29/2025 1:07 PM EST)ComponentValueRef Range Test MethodAnalysis TimePerformed AtPathologist SignatureCMV IgM<8.0<=29.9 AU/mL05/31/2025 12:05 PM [facility] ([facility])Comment: INTERPRETIVE INFORMATION: Cytomegalovirus Antibody, IgM ??29.9 AU/mL or Less ....... Not Detected ??30.0-34.9 AU/mL........... Indeterminate-Repeat testing ? in 10-14 days may be helpful. ??35.0 AU/mL or Greater .... Detected-IgM antibody to CMV ? detected which may indicate a ? current or recent infection. ? However, low levels of IgM ? antibodies may occasionally ? persist for more than 12 ? months post-infection. A negative result does not rule out primary infection, please correlate clinically. CMV serology is not useful for the evaluation of active or reactivated infection in immunocompromised patients. Molecular diagnostic tests (i.e. PCR)are preferred in these cases. This test should not be used for blood donor screening, associated re-entry protocols, or for screening Human Cell, Tissues and Cellular and Tissue-Based Products (HCT/P). Performed By: [facility] [address] [place] [address] Ring Conductor: Fredrick Barnse MD, PhD CLIA Number: [id number] Specimen (Source)Anatomical Location / LateralityCollection Method / Volume Collection TimeReceived TimeBloodVenous blood specimen / UnknownVenipuncture / [id number]/29/2025 1:07 PM EST05/29/2025 1:07 PM EST Narrative Authorizing ProviderResult TypeResult StatusSaint John'S Aurora Community Hospitaljacqueline Encarnacion [facility] BLOOD ORDERABLESFinal ResultPerforming OrganizationAddressCity/State/ZIP CodePhone Number [facility] (BEAKER) [address] [place] [address] * Hepatitis B Core Antibody, IgM (05/29/2025 1:07 PM EST)ComponentValueRef Range Test MethodAnalysis TimePerformed AtPathologist SignatureHepatitis B Core Antibody; IgMNonreactiveNonreactive LAB IMMUNOASSAY METHOD 05/29/2025 4:01 PM [facility] LABComment: Results from patients taking biotin supplements or receiving high-dose biotin therapy should be interpreted with caution due to possible interference with this test. Providers may contact their locallaboratory for further information. Specimen (Source)Anatomical Location / LateralityCollection Method / Volume Collection TimeReceived TimeBloodVenous blood specimen / UnknownVenipuncture / Pazjefm5205/29/2025 1:07 PM EST05/29/2025 1:07 PM EST Narrative Authorizing ProviderResult TypeResult StatusRedignity health arizona general hospitaljacqueline Encarnacion [facility] BLOOD ORDERABLESFinal ResultPerforming OrganizationAddressty/State/ZIP CodePhone Number [facility] [address] [place] [address] * Hepatitis B Core Antibody, Total (05/29/2025 1:07 PM EST)ComponentValueRef RangeTest MethodAnalysis TimePerformed AtPathologist SignatureHepatitis B Core Antibody; TotalNonreactiveNonreactive LAB IMMUNOASSAY METHOD 05/29/2025 4:01 PM [facility] LABSpecimen (Source)Anatomical Location / Laterality Collection Method / VolumeCollection TimeReceived TimeBloodVenous blood specimen / UnknownVenipuncture / Agxbetz3205/29/2025 1:07 PM EST05/29/2025 1:07 PM EST Narrative Authorizing ProviderResult TypeResult StatusReberta Encarnacion CTEL[facility]IN BLOOD ORDERABLESFinal ResultPerforming OrganizationAddressCity/State/ZIP CodePhone Number [facility] [address] [facility] [address] [place] [address] * CMV DNA, Quantitative, PCR (05/29/2025 1:07 PM EST)ComponentValueRef RangeTest MethodAnalysis TimePerformed AtPathologist SignatureCytomegalovirus DNA, PCR Log IU/ML05/30/2025 2:38 PM [facility] LABComment:Not calculatedCMV DNA Result Not DetectedNot Xnlgyvvi63/13/2025 2:38 PM [facility] LABSpecimen (Source) Anatomical Location / LateralityCollection Method / VolumeCollection Time Received TimeBloodPlasma specimen / Zkcjuhp8605/29/2025 1:07 PM EST05/29/2025 1:07 PM EST Narrative [facility] - 05/30/2025 2:38 PM EST Reportable Range: 35-10,000,000 IU/mL. The parbhu CMV test is an in vitro nucleic acid amplification test for the quantitation of Cytomegalovirus (CMV) DNA in human EDTA plasma on the prabhu 6800/8800 Systems. The analytical quantification range of this assay has been determined to be 35 to 10,000,000 IU/ml in plasma. Mutations within the highly-conserved regions of the CMV [...] be the sole basis for patient management decisions If the assay DETECTED the presence of the virus but was not able to accurately quantify the number of copies, the test result will be reported as <35 Detected or >10,000,000 Detected . The prabhu CMV is intended for use as an aid in the management of CMV in solid organ transplant patients and in hematopoietic stem cell transplant patients. In patients receiving anti-CMV therapy, serial DNA measurements can be used to assess viral response to treatment. The results from prabhu?? CMVmust be interpreted within the context of all relevant clinical and laboratory findings. This test is approved by the [place] Food and Drug Administration, and its performance characteristics verified by the [facility] Diagnostic Laboratory, Department of Pathology, [facility]. Authorizing ProviderResult TypeResult StatusReberta Encarnacion CTELVIN MOLECULAR DIAGNOSTICS ORDERABLESFinal ResultPerforming OrganizationAddressCity/State/ZIP CodePhone Number [facility] [address] [place] [address] * (ABNORMAL) Vitamin D 25-Hydroxy,Total (for eval of Vitamin D levels) (05/29/2025 1:07 PM EST)ComponentValueRef RangeTest MethodAnalysis Time Performed AtPathologist SignatureVitamin D, 25-Hydroxy, Total21(L)30 - 100 ng/mL LAB IMMUNOASSAY METHOD 05/29/2025 3:28 PM [facility] LABSpecimen (Source)Anatomical Location / Laterality Collection Method / VolumeCollection TimeReceived TimeBloodVenous blood specimen / UnknownVenipuncture / Pjfwtai0405/29/2025 1:07 PM EST05/29/2025 1:07 PM EST Narrative [facility] - 05/29/2025 3:28 PM EST Deficiency: < 20 ng/ml Insufficiency: ?20-29 ??ng/ml Sufficiency: ?30-100 ng/ml This assay accurately quantifies the sum of Vitamin D3, 25-Hydroxy and Vitamin D2,25-Hydroxy. Authorizing ProviderResult TypeResult StatusReberta Encarnacion [facility] BLOOD ORDERABLESFinal ResultPerforming OrganizationAddressCity/State/ZIP CodePhone Number [facility] [address] [place] [phone] * Toxoplasma IgG (05/29/2025 1:07 PM EST)ComponentValueRef RangeTest Method Analysis TimePerformed AtPathologist SignatureToxoplasma IgGNonreactive Nonreactive LAB IMMUNOASSAY METHOD 05/29/2025 3:44 PM [facility] LABSpecimen (Source)Anatomical Location / Laterality Collection Method / VolumeCollection TimeReceived TimeBloodVenous blood specimen / UnknownVenipuncture / Bguuevb3705/29/2025 1:07 PM EST05/29/2025 1:07 PM EST Narrative Authorizing ProviderResult TypeResult StatusMi Encarnacion [facility] BLOOD ORDERABLESFinal ResultPerforming OrganizationAddSelect Specialty [facility]/State/ZIP CodePhone Number [facility] [address] [place] [phone] * HIV 1/2 Antigen/Antibody Screen with Reflex to Confirmation (05/29/2025 1:07 PM EST)ComponentValueRef RangeTest MethodAnalysis TimePerformed AtPathologist SignatureHIV 1/2 Antigen/Antibody Screen with Reflex to Confirmation NonreactiveNonreactive LAB IMMUNOASSAY METHOD 05/29/2025 4:09 PM [facility] LABSpecimen (Source)Anatomical Location / Laterality Collection Method / VolumeCollection TimeReceived TimeBloodVenous blood specimen / UnknownVenipuncture / Dikamjv6405/29/2025 1:07 PM EST05/29/2025 1:07 PM EST Narrative [facility] - 05/29/2025 4:09 PM EST HIV Ag/Ab screen is performed using the Siemens [employer] HIV Ag/Ab Combo assay which detects the presence of HIV p24 antigen as well as antibodies to HIV-1 (Group M and O) and HIV-2. No laboratory evidence of HIV infection. If acute HIV infection is suspected, consider testing for HIV RNA by PCR (viral load). Authorizing ProviderResult TypeResult StatusMi Encarnacion [facility] BLOOD ORDERABLESFinal ResultPerforming OrganizationAddGuthrie Towanda Memorial Hospitalty/[facility]/ZIP CodePhone Number [facility] [address] [place] [phone] * (ABNORMAL) Hepatitis B Surface Antibody (05/29/2025 1:07 PM EST)ComponentValue Ref RangeTest MethodAnalysis TimePerformed AtPathologist SignatureHepatitis B Surface Uckflsnc61.2(H)<10.0 mIU/mL LAB IMMUNOASSAY METHOD 05/30/2025 12:31 AM [facility] LABComment: Interpretive Criteria: <10 mIU/mL Nonreactive >=10 mIU/mL Reactive Biotin interference may cause falsely decreased results. Patients taking a Biotin dose of up to 5 mg/day should refrain from taking Biotin for 24 hours before sample collection. [facility] for further information. The result suggests protective immunity to HBV infection, which may result from prior HBV vaccination, a blood transfusion, or recovery from an HBV infection. Specimen (Source)Anatomical Location / LateralityCollection Method / Volume Collection TimeReceived TimeBloodVenous blood specimen / UnknownVenipuncture / Gnlfdlq5005/29/2025 1:07 PM EST05/29/2025 1:07 PM EST Narrative Authorizing ProviderResult TypeResult StatusRedignity health arizona general hospitaljacqueline Headley [facility]Mc[facility] BLOOD ORDERABLESFinal ResultPerforming OrganizationAddressty/State/ZIP CodePhone Number [facility] [address] [place], [place] [phone] * Hepatitis B Surface Antigen (05/29/2025 1:07 PM EST)ComponentValueRef Range Test MethodAnalysis TimePerformed AtPathologist SignatureHepatitis B Surface AntigenNonreactiveNonreactive LAB IMMUNOASSAY METHOD 05/29/2025 3:40 PM [facility] LABComment: Biotin interference may cause falsely decreased results. Patients taking a Biotin dose of up to 5 mg/day should refrain from taking Biotin for 24 hours before sample collection. [facility] for further information. Specimen (Source)Anatomical Location / LateralityCollection Method / Volume Collection TimeReceived TimeBloodVenous blood specimen / UnknownVenipuncture / Hawogcr8005/29/2025 1:07 PM EST05/29/2025 1:07 PM EST Narrative Authorizing ProviderResult TypeResult StatusRemotion picture & television hospital B [facility] BLOOD ORDERABLESFinal ResultPerforming OrganizationAddSelect Specialty [facility]/ZIP CodePhone Number [facility] [address] [place] [phone] * Cytomegalovirus IgG (05/29/2025 1:07 PM EST)ComponentValueRef RangeTest Method Analysis TimePerformed AtPathologist SignatureCytomegalovirus IgGNonreactive Nonreactive LAB IMMUNOASSAY METHOD 05/29/2025 3:56 PM [facility] LABSpecimen (Source)Anatomical Location / Laterality Collection Method / VolumeCollection TimeReceived TimeBloodVenous blood specimen / UnknownVenipuncture / Vucjdji2705/29/2025 1:07 PM EST05/29/2025 1:07 PM EST Narrative Authorizing ProviderResult TypeResult StatusMi Encarnacino [facility] BLOOD ORDERABLESFinal ResultPerforming OrganizationAddressCity/State/ZIP CodePhone Number [address] [phone] * aPTT (05/29/2025 1:07 PM EST)ComponentValueRef RangeTest MethodAnalysis Time Performed AtPathologist JexjcgtnpwLHF7681 - 36 seconds LAB COAGULATION METHOD 05/29/2025 2:12 PM [facility] LABSpecimen (Source)Anatomical Location / Laterality Collection Method / VolumeCollection TimeReceived TimeBloodVenous blood specimen / UnknownVenipuncture / Qzzqurp1005/29/2025 1:07 PM EST05/29/2025 1:07 PM EST Narrative [facility] - 05/29/2025 2:12 PM EST The APTT is no longer used for monitoring Unfractionated Heparin Therapy. For monitoring Heparin Therapy, use the Heparin Assay. Authorizing ProviderResult TypeResult StatusMi LEE BLOOD ORDERABLESFinal ResultPerforming OrganizationAddressCity/State/ZIP CodePhone Number [address] [address] * (ABNORMAL) Protime-INR (05/29/2025 1:07 PM EST)ComponentValueRef RangeTest MethodAnalysis TimePerformed AtPathologist QxanqvyunDogbfmq37.1(H)9.8 - 12.4 seconds LAB COAGULATION METHOD 05/29/2025 2:12 PM [facility] LABINR1.3(H)0.9 - 1.1 LAB COAGULATION METHOD 05/29/2025 2:12 PM [facility] LABSpecimen (Source)Anatomical Location / Laterality Collection Method / VolumeCollection TimeReceived TimeBloodVenous blood specimen / UnknownVenipuncture / Timakko2905/29/2025 1:07 PM EST05/29/2025 1:07 PM EST Narrative Authorizing ProviderResult TypeResult StatusReberta Encarnacion [facility] BLOOD ORDERABLESFinal ResultPerforming OrganizationAddressCity/State/ZIP CodePhone Number [facility] [address] [place] [phone] * Type And Screen Is this order related to or an upcoming surgery? No (05/29/2025 1:07 PM EST) Only the most recent of2 resultswithin the time period is included. ComponentValueRef RangeTest MethodAnalysis TimePerformed AtPathologist Signature ABO TYPEA107/29/2024 3:18 PM ESTNEW [facility] BLOOD BANKRh BQICSUT9705/29/2025 3:18 PM EST [facility] BLOOD BANKANTIBODY DTIDJZGSF55/12/2025 3:18 PM [facility] BLOOD BANKSpecimen (Source)Anatomical Location / LateralityCollection Method / VolumeCollection TimeReceived TimeBloodVenous blood specimen / UnknownVenipuncture / Unknown 05/29/2025 1:07 PM EST05/29/2025 1:07 PM EST Narrative Authorizing ProviderResult TypeResult StatusRebecjacqueline Encarnacion [facility] BLOOD BANK TEST ORDERABLESFinal ResultPerforming OrganizationAddressCity/State/ZIP Code Phone Number [facility]LOOD BANK [id number] [place] [phone] * (ABNORMAL) Varicella Zoster Antibody, IgG (05/29/2025 1:07 PM EST)Component ValueRef RangeTest MethodAnalysis TimePerformed AtPathologist Signature Varicella Zoster, IgGPositive(A)Negative LAB CHEMISTRY METHOD 05/29/2025 7:19 PM [facility] LABVaricella Zoster, IgG Index1.9(H)<=0.8 AI LAB CHEMISTRY METHOD 05/29/2025 7:19 PM [facility] LABSpecimen (Source)Anatomical Location / Laterality Collection Method / VolumeCollection TimeReceived TimeBloodVenous blood specimen / UnknownVenipuncture / Xbznqfw4705/29/2025 1:07 PM EST05/29/2025 1:07 PM EST Narrative [facility] - 05/29/2025 7:19 PM EST NEGATIVE: No IgG antibodies specific to VZV detected. It is likely that the patient has not had a previous exposure to VZV through infection or vaccination. Alternatively, the patient may have been exposed to VZV but a failure to respond may indicate immunodeficiency. EQUIVOCAL:Equivocal results; obtain additional sample for retesting. POSITIVE: IgG antibody to VZV detected. This may indicate that the patient was exposed to VZV through infection or vaccination. The interpretation of serological tests should take into account the immunological status of the patient. Test results for patients, including immunocompromised patients, neonates, and pediatric patients, reflect their capacity to respond immunologically to the virus as well as their exposure to the pathogen. Patients treated with IVIG may demonstrate altered results in serological assays. Authorizing ProviderResult TypeResult StatusReberta Encarnacion [facility] BLOOD ORDERABLESFinal ResultPerforming OrganizationAddressty/State/ZIP CodePhone Number [facility] [address] [place] [phone] * C-Reactive Protein (05/29/2025 1:07 PM EST)ComponentValueRef RangeTest Method Analysis TimePerformed AtPathologist SignatureC-Reactive Protein0.56<1.00 mg/dL LAB CHEMISTRY METHOD 05/29/2025 3:45 PM [facility] LABSpecimen (Source)Anatomical Location / Laterality Collection Method / VolumeCollection TimeReceived TimeBloodVenous blood specimen / UnknownVenipuncture / Sccydcw4405/29/2025 1:07 PM EST05/29/2025 1:07 PM EST Narrative Authorizing ProviderResult TypeResult StatusRemotion picture & television hospital Kayode EscobedoMc[facility]rick Hospital BLOOD ORDERABLESFinal ResultPerforming OrganizationAddressty/State/ZIP CodePhone Number [facility] [address] [place] [phone] * (ABNORMAL) Uric Acid (05/29/2025 1:07 PM EST)ComponentValueRef RangeTest MethodAnalysis TimePerformed AtPathologist SignatureUric Acid8.5(H)4.0 - 7.5 mg/dL LAB CHEMISTRY METHOD 05/29/2025 1:34 PM [facility] LABComment: Venipuncture immediately after or during the administration of Metamizole may lead to falsely low results. Testing should be performed immediately prior to Metamizole dosing. Specimen (Source)Anatomical Location / LateralityCollection Method / Volume Collection TimeReceived TimeBloodVenous blood specimen / UnknownVenipuncture / Wvjqooi8405/29/2025 1:07 PM EST05/29/2025 1:07 PM EST Narrative Authorizing ProviderResult TypeResult StatusReberta LEE BLOOD ORDERABLESFinal ResultPerforming OrganizationAddressCity/State/ZIP CodePhone Number [facility] [address] [place] [phone] * B-Type Natriuretic Peptide (05/29/2025 1:07 PM EST)ComponentValueRef RangeTest MethodAnalysis TimePerformed AtPathologist FnkphggpuVDM893 - 99 pg/mL LAB IMMUNOASSAY METHOD 05/30/2025 10:05 AM [facility] LABSpecimen (Source)Anatomical Location / LateralityCollection Method / VolumeCollection TimeReceived TimeBloodVenous blood specimen / UnknownVenipuncture / Fpsykto6005/29/2025 1:07 PM EST05/29/2025 1:07 PM EST Narrative [facility] - 05/30/2025 10:05 AM EST <100 pg/mL - Heart failure unlikely 100-299 pg/mL - Intermediate probability of acute heart ?failure exacerbation. Correlate with clinical ?context and patient history. >=300 pg/mL - Heart Failure likely. Correlate with clinical ?context and patient history. Biotin interference may cause falsely decreased results. Patients taking a Biotin dose of up to 5 mg/day should refrain from taking Biotin for 24 hours before sample ??collection. Providers may contact their local laboratory for further information. Authorizing ProviderResult TypeResult StatusMi LEE BLOOD ORDERABLESFinal ResultPerforming OrganizationAddressCity/State/ZIP CodePhone Number [facility] [address] [facility] [address] [place] [address] * (ABNORMAL) Ferritin (05/29/2025 1:07 PM EST) Only the most recent of2 resultswithin the time period is included. ComponentValueRef RangeTest MethodAnalysis TimePerformed AtPathologist Signature Ferritin1,260(H)20 - 300 ng/mL LAB CHEMISTRY METHOD 05/29/2025 3:45 PM [facility] LABSpecimen (Source)Anatomical Location / Laterality Collection Method / VolumeCollection TimeReceived TimeBloodVenous blood specimen / UnknownVenipuncture / Kbghsij5805/29/2025 1:07 PM EST05/29/2025 1:07 PM EST Narrative Authorizing ProviderResult TypeResult StatusRebecjacqueline LEE BLOOD ORDERABLESFinal ResultPerforming OrganizationAddressCity/State/ZIP CodePhone Number [facility] [address] [place] [phone] * TRANSTHORACIC ECHO (TTE) COMPLETE WITH CONTRAST (05/29/2025 10:51 AM EST) ComponentValueRef RangeTest MethodAnalysis TimePerformed AtPathologist SignatureAV pk vel1.55m/sSYNGOAV mn dcbe6rxXrNLGNXDOGU diam2.10cmSYNGOMV E/A ratio0.66SYNGOLA vol index A/L36.0ml/p2KRXVDJbztgkacx annular plane systolic excursion3.3cmSYNGORV free wall pk S'14.30cm/sSYNGOLVIDd4.70cmSYNGOAortic Valve Area by Continuity of VTI2.89ml6JTKKHWbufge Valve Area by Continuity of Peak Velocity2.50nq3PAYEAEF pk aqll91moLjMEXCTPD EF58%SYNGOLV A4C EF54.1SYNGO Specimen (Source)Anatomical Location / LateralityCollection Method / Volume Collection TimeReceived Time05/29/2025 9:58 AM EST Impressions SYNGO - 05/29/2025 2:20 PM EST CONCLUSIONS: 1. Left ventricular ejection fraction is [...] 8. No prior echocardiogram available for comparison. Narrative SYNGO - 05/29/2025 2:20 PM EST [facility], [address] [place] [address] ? and TRANSTHORACIC ECHOCARDIOGRAM REPORT Patient Name: ? PENNY ORDAZ ? Reading Physician: ?[id number] Zeny Marks ?MD Study Date: ? 05/29/2025 ?Ordering Provider: ?[id number] MI B ?KLISOVIC MRN/PID: ?[id number] ?Fellow: Accession#: ? [id number] ?Nurse: ?Tootie ?Erwin RN Date of /Age: ??1960 / 64 ?Specialty Cook: ?Brittney Fumic ?years ? RDCS Gender assigned at ??M ? Additional Staff: : Height: ? 172.72 cm ? Admit Date: Weight: ? 70.31 kg ?Admission Status: ? Outpatient BSA / BMI: ?1.83 m2 / 23.57 ?kg/m2 Blood Pressure: ? 125/55 mmHg ? Department Location: ??[facility] ?Non Invasive Study Type: ?TRANSTHORACIC ECHO (TTE) COMPLETE Diagnosis/ICD: Encounter for monitoring cardiotoxic drug therapy-Z51.81 Indication: ?Allo PBSCT eval CPT Code: ?Echo Complete w Full Doppler-29804 Patient History: Pertinent History: HLD, Myelofibrosis, pleural effusion on right. Study Detail: The following Echo studies were performed: 2D, M-Mode, Doppler and ?color flow. Optison used as a contrast agent for endocardial ?border definition. Total contrast used for this procedure was 2 mL ?via IV push. PHYSICIAN INTERPRETATION: Left Ventricle: Left [...] aortic valve area by VTI is 2.86 cm? with a peak velocity of 1.55 m/s. The peak and mean [...] for comparison. QUANTITATIVE DATA SUMMARY: 2D MEASUREMENTS: ?Normal Ranges: Ao Root d: ? 3.50 cm ??(2.0-3.7cm) LAs: ? 4.40 cm ??(2.7-4.0cm) IVSd: ?0.90 cm ??(0.6-1.1cm) LVPWd: ? 0.90 cm ??(0.6-1.1cm) LVIDd: ? 4.70 cm ??(3.9-5.9cm) LVIDs: ? 3.60 cm LV Mass Index: ?? 78 g/m2 LVEDV Index: ? 85 ml/m2 LV % FS ?23.4 % LEFT ATRIUM: ?Normal Ranges: LA Vol A4C: ?72.7 ml ?(22+/-6mL/m2) LA Vol A2C: ?59.5 ml LA Vol BP: ? 66.0 ml LA Vol Index A4C: ??39.6ml/m2 LA Vol Index A2C: ??32.4 ml/m2 LA Vol Index BP: ?? 36.0 ml/m2 LA Area A4C: ? 21.9 cm2 LA Area A2C: ? 19.9 cm2 LA Major Mullin A4C: 5.6 cm LA Major Mullin A2C: 5.7 cm LA Volume Index: ?? 36.0 ml/m2 RIGHT ATRIUM: ?Normal Ranges: RA Area A4C: ??17.6 cm2 AORTA MEASUREMENTS: ? Normal Ranges: Asc Ao, d: ?3.30 cm (2.1-3.4cm) LV SYSTOLIC FUNCTION: ? Normal Ranges: EF-A4C View: 54 % (>=55%) EF-A2C View: ?53 % EF-Biplane: ? 58 % LV EF Reported: 58 % LV DIASTOLIC FUNCTION: ? Normal Ranges: MV Peak E: ? 0.90 m/s ?(0.7-1.2 m/s) MV Peak A: ? 1.36 m/s ?(0.42-0.7 m/s) E/A Ratio: ? 0.66 ?(1.0-2.2) MV e' 0.074 m/s (>8.0) MV lateral e' ?0.10 m/s MV medial e' ? 0.05 m/s MV A Dur: ?98.00 msec E/e' Ratio: 12.12 (<8.0) a' ? 0.12 m/s MV DT: ? 121 msec ?(150-240 msec) PulmV Sys Paul: ? 55.50 cm/s PulmV Carpenter Paul: ?48.20 cm/s PulmV S/D Paul: ? 1.20 PulmV A Revs Paul: ?39.50 cm/s PulmV A Revs Dur: ?121.00 msec MITRAL VALVE: ?Normal Ranges: MV DT: ?121 msec (150-240msec) AORTIC VALVE: ? Normal Ranges: AoV Vmax: 1.55 m/s (<=1.7m/s) AoV Peak P.6 mmHg (<20mmHg) AoV Mean PG: ? 4.0 mmHg (1.7-11.5mmHg) LVOT Max Paul: 1.11 m/s (<=1.1m/s) AoV VTI: ? 26.60 cm (18-25cm) LVOT VTI: ?22.00 cm LVOT Diameter: ? 2.10 cm ??(1.8-2.4cm) AoV Area, VTI: ? 2.86 cm2 (2.5-5.5cm2) AoV Area,Vmax: ? 2.48 cm2 (2.5-4.5cm2) AoV Dimensionless Index: 0.83 RIGHT VENTRICLE: RV Basal 3.50 cm RV Major 7.8 cm TAPSE: ?? 33.1 mm RV s' ?0.14 m/s TRICUSPID VALVE/RVSP: ? Normal Ranges: Est. RA Pressure: ? 3 IVC Diam: ? 2.00 cm PULMONIC VALVE: ?Normal Ranges: PV Accel Time: 92 msec (>120ms) PV Max Paul: ? 1.4 m/s ??(0.6-0.9m/s) PV Max PG: ?7.8 mmHg PULMONARY VEINS: PulmV A Revs Dur: 121.00 msec PulmV A Revs Paul: 39.50 cm/s PulmV Carpenter Paul: ?? 48.20 cm/s PulmV S/D Paul: ?1.20 PulmV Sys Paul: ?55.50 cm/s [id number] Zeny Marks MD Electronically signed on 05/29/2025 at 2:20:30 PM Final Procedure Note Zeny Marks MD - 05/29/2025 [facility], [address] [place] [address], [place] [address] and TRANSTHORACIC ECHOCARDIOGRAM REPORT Patient Name: PENNY Garcia Physician: [id number] Beckman MD Study Date: 05/29/2025 Ordering Provider: [id number] ENCARNACION MRN/PID: [id number] Fellow: Nurse: Tootie Salvador Date of /Age: 3 1960 Specialty Cook: Jorge Alberto lynch RDCS Gender assigned at M Additional Staff: : Height: 172.72 cm Admit Date: Weight: 70.31 kg Admission Status: Outpatient BSA / BMI: 1.83 m2 / 23.57 kg/m2 Blood Pressure: 125/55 mmHg Department Location: [facility] NonInvasive Study Type: TRANSTHORACIC ECHO (TTE) COMPLETE Diagnosis/ICD: Encounter for monitoring cardiotoxic drug therapy-Z51.81 Indication: Allo PBSCT eval CPT Code: Echo Complete w Full Doppler-[id number] Patient History: Pertinent History: HLD, Myelofibrosis, pleural effusion on right. Study Detail: The following Echo studies were performed: 2D, M-Mode,Doppler and color flow. Optison used as a contrast agent forendocardial border definition. Total contrast used for this procedurewas 2 mL via IV push. PHYSICIAN INTERPRETATION: Left Ventricle: Left ventricular ejection fraction is normal calculated by Castro's biplane at 58%. There are no regional left ventricular wallmotion abnormalities. The left ventricular cavity size is mildly dilated.There is normal septal and normal posterior left ventricular wallthickness. Spectral Doppler shows a Grade I (impaired relaxation pattern)of left ventricular diastolic filling with normal left atrial fillingpressure. There is no definite left ventricular thrombus visualized. Left Atrium: The left atrium is mildly dilated. Right Ventricle: The right ventricle is normal in size. There is normalright ventricular global systolic function. Right Atrium: The right atrium is upper limits of normal in size. Aortic Valve: The aortic valve is trileaflet. The aortic valve area by VTIis 2.86 cm? with a peak velocity of 1.55 m/s. The peak and mean gradientsare 10 mmHg and 4 mmHg, respectively with a dimensionless index of 0.83.There is no evidence of aortic valve regurgitation. Mitral Valve: The mitral valve is normal in structure. There is tracemitral valve regurgitation. The E Vmax is 0.90 m/s. Tricuspid Valve: The tricuspid valve is structurally normal. There istrace tricuspid regurgitation. The right ventricular systolic pressurecould not be estimated. Pulmonic Valve: The pulmonic valve is structurally normal. There isphysiologic pulmonic valve regurgitation. Pericardium: Trivial pericardial effusion. Aorta: The aortic root is normal. Systemic Veins: The hepatic vein appears to be of normal size. Theinferior vena cava appears normal in size, with IVC inspiratory collapsegreater than 50%. In comparison to the previous echocardiogram(s): There are no priorstudies on this patient for comparison purposes. No prior echocardiogramavailable for comparison. CONCLUSIONS: 1. Left ventricular ejection fraction is normal calculated by Castro'sbiplane at 58%. 2. Spectral Doppler shows a [...] cava appears normal in size, with IVC inspiratorycollapse greater than 50%. 8. No prior echocardiogram [...] LA Area A2C: 19.9 cm2 LA Major Mullin A4C: 5.6 cm LA Major Mullin A2C: 5.7 cm LA Volume Index: 36.0 [...] Paul: 48.20 cm/s PulmV S/D Paul: 1.20 PulmV A Revs Paul: 39.50 cm/s PulmV A Revs Dur: 121.00 msec MITRAL VALVE: Normal Ranges: MV DT: 121 msec (150-240msec) AORTIC VALVE: Normal Ranges: AoV Vmax: 1.55 m/s (<=1.7m/s) AoV Peak P.6 mmHg (<20mmHg) AoV Mean P.0 mmHg (1.7-11.5mmHg) LVOT Max Paul: 1.11 m/s (<=1.1m/s) AoV VTI: 26.60 cm (18-25cm) LVOT VTI: 22.00 cm LVOT Diameter: 2.10 cm (1.8-2.4cm) AoV Area, VTI: 2.86 cm2 (2.5-5.5cm2) AoV Area,Vmax: 2.48 cm2 (2.5-4.5cm2) AoV Dimensionless Index: 0.83 RIGHT VENTRICLE: RV Basal 3.50 cm RV Major 7.8 cm TAPSE: 33.1 mm RV s' 0.14 m/s TRICUSPID VALVE/RVSP: Normal Ranges: Est. RA Pressure: 3 IVC Diam: 2.00 cm PULMONIC VALVE: Normal Ranges: PV Accel Time: 92 msec (>120ms) PV Max Paul: 1.4 m/s (0.6-0.9m/s) PV Max P.8 mmHg PULMONARY VEINS: PulmV A Revs Dur: 121.00 msec PulmV A Revs Paul: 39.50 cm/s PulmV Carpenter Paul: 48.20 cm/s PulmV S/D Paul: 1.20 PulmV Sys Paul: 55.50 cm/s [id number] Zeny Marks MD Electronically signed on 05/29/2025 at 2:20:30 PM Final IMPRESSION: CONCLUSIONS: 1. Left ventricular ejection fraction is normal calculated by Castro'sbiplane at 58%. 2. Spectral Doppler shows a [...] cava appears normal in size, with IVC inspiratorycollapse greater than 50%. 8. No prior echocardiogram available for comparison. Authorizing ProviderResult TypeResult StatusRemotion picture & television hospital Kayode Escobedonortheast [facility] centercrist[facility] [place] ECHO PROCEDURESFinal ResultPerforming OrganizationAddressCity/State/ZIP CodePhone Number SYNGO * ECG 12 Lead (05/29/2025 9:17 AM EST)ComponentValueRef RangeTest MethodAnalysis TimePerformed AtPathologist SignatureVentricular Yigg489FRSXBRROalgss Duxd168 BPMMUSEPR Lyimnxfz283enEHQVPBX Gqmybvhu04lfXMQVAP Hcsnlcxp761epKUBOXJX Calculation(Bazett)443msMUSEP Lvjq74vnfulvsUXXWA Voao34dywnjmtWGDFA Axis35 degreesMUSEQRS Sybeh58fwshySAPQD Jjton406fsFGSOA Tizvc123ceSYWPY Ksjhnl180er MUSET Uritiz878tmQGTQMUK Imiuhdnolf485bkACMPGgzwfytr (Source)Anatomical Location / LateralityCollection Method / VolumeCollection TimeReceived Time 05/29/2025 10:30 AM EST05/30/2025 5:08 PM EST Narrative MUSE - 05/30/2025 5:08 PM EST Normal sinus rhythm Normal ECG No previous ECGs available Confirmed by Tahir Navarro ([id number]) on 05/30/2025 5:08:56 PM Procedure Note Tahir Navarro MD - 05/30/2025 Normal sinus rhythm Normal ECG No previous ECGs available Confirmed by Tahir Navarro ([id number]) on 05/30/2025 5:08:56 PM Authorizing ProviderResult TypeResult StatusMi GUERRAG ORDERABLES Final ResultPerforming OrganizationAddressCity/State/ZIP CodePhone Number MUSE * Family HLA Type (04/16/2025 12:00 AM EDT)ComponentValueRef RangeTest Method Analysis TimePerformed AtPathologist SignatureHLA ResultsSee Attached 04/18/2025 11:12 AM EDT HLA LABHLA-A,B,C High Resolution Dkzqos2304/18/2025 11:12 AM EDTUH HLA LABHLA-DRB1 High Resolution Nbbqfs5904/18/2025 11:12 AM EDTUH HLA LABHLA-DQB1 High Resolution Wwkxzm5804/18/2025 11:12 AM EDT HLA LABHLA- DPB1 High Resolution Qoygoy3204/18/2025 11:12 AM EDTUH HLA LABSpecimen (Source) Anatomical Location / LateralityCollection Method / VolumeCollection Time Received TimeBloodVenous blood specimen / Wrbevin01 11:09 AM EDT Narrative HLA LAB - 04/18/2025 11:12 AM EDT Test performed at: [facility], 6th Floor [id number] [place] [address] Authorizing ProviderResult TypeResult StatusMi LEE BLOOD ORDERABLESFinal ResultPerforming OrganizationAddressCity/State/ZIP CodePhone Number [facility] [address] [place] [address] * Specimen Handling (04/05/2025 12:00 AM EDT) Only the most recent of6 resultswithin the time period is included. ComponentValueRef RangeTest MethodAnalysis TimePerformed AtPathologist Signature Specimen HandlingSpecimen Gdteun8604/10/2025 12:18 PM EDT HLA LABSpecimen (Source)Anatomical Location / LateralityCollection Method / VolumeCollection TimeReceived TimeBloodVenous blood specimen / Qwpolfb55 12:09 PM EDT Narrative HLA LAB - 04/10/2025 12:18 PM EDT Test performed at: [facility] 6[facility] [address] [place] [address] Test performed at: [facility], 6th Floor [address] [place] [address] Authorizing ProviderResult TypeResult StatusReberta LEE BLOOD ORDERABLESFinal ResultPerforming OrganizationAddressCity/[facility] CodePhone Number [facility] LAB [id number] [place], [place] [phone] * HLA HR Type, Buccal (03/26/2025 4:26 PM EDT)ComponentValueRef RangeTest Method Analysis TimePerformed AtPathologist SignatureHLA-A,B,C High Resolution Typing 04/03/2025 11:24 AM EDT HLA LABHLA-DRB1 High Resolution Uptiyy6504/03/2025 11:24 AM EDT HLA LABHLA-DPB1 High Resolution Bmukty5104/03/2025 11:24 AM EDT HLA LABHLA-DQB1 High Resolution Mmpztl8804/03/2025 11:24 AM EDT HLA LABHLA ResultsFor collection only.04/03/2025 11:24 AM EDT HLA LABSpecimen (Source) Anatomical Location / LateralityCollection Method / VolumeCollection Time Received TimeSwabBuccal smear specimen / Bdplgjn8303/26/2025 4:26 PM EDT 03/26/2025 4:27 PM EDT Narrative HLA LAB - 04/03/2025 11:24 AM EDT Test performed at: [facility] 6th [facility] [address] [place] [id number] Authorizing ProviderResult TypeResult StatusReberta LEE BODY FLUIDS AND STOOLS ORDERABLESFinal ResultPerforming OrganizationAddressCity/State/ZIP CodePhone Number [facility] LAB [address] [place] [address] * HLA DNA Type Panel (03/26/2025 4:25 PM EDT)ComponentValueRef RangeTest Method Analysis TimePerformed AtPathologist SignatureHLA-A,B,C High Resolution Typing 04/05/2025 10:20 AM EDTUH HLA LABHLA-DRB1 High Resolution Reocnh5504/05/2025 10:20 AM EDTUH HLA LABHLA-DQB1 High Resolution Mvaodi6704/05/2025 10:20 AM EDTUH HLA LABHLA-DPB1 High Resolution Tilakc2004/05/2025 10:20 AM EDT HLA LABHLA ResultsSee Kcxyfkgu55/19/2025 10:20 AM EDT HLA LABSpecimen (Source) Anatomical Location / LateralityCollection Method / VolumeCollection Time Received TimeBloodVenous blood specimen / UnknownVenipuncture / Unknown 03/26/2025 4:25 PM EDT03/26/2025 4:25 PM EDT Narrative HLA LAB - 04/05/2025 10:20 AM EDT Test performed at: [facility], 6th Floor [address] [place] [address] Authorizing ProviderResult TypeResult StatusRebecjacqueline LEE BLOOD ORDERABLESFinal ResultPerforming OrganizationAddressty/State/ZIP CodePhone Number [facility] [address] [place] [address] * Pathologist Review-CBC Differential (03/26/2025 4:25 PM EDT)ComponentValueRef RangeTest MethodAnalysis TimePerformed AtPathologist SignaturePathologist Review-CBC DifferentialLeft shift with approximately 5% Blasts. Marked anisocytosis of red cells with ovalocytes and few tear drop cells. 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 03/27/2025 3:44 PM [facility] LABComment: . By the signature on this report, the individual or group listed as making the Final Interpretation/Diagnosis certifies that they have reviewed this case. Specimen (Source)Anatomical Location / LateralityCollection Method / Volume Collection TimeReceived TimeBloodVenous blood specimen / UnknownVenipuncture / Cysgvqp7903/26/2025 4:25 PM EDT03/26/2025 4:25 PM EDT Narrative Authorizing ProviderResult TypeResult StatusRebecjacqueline LEE BLOOD ORDERABLESFinal ResultPerforming OrganizationAddressCity/State/ZIP CodePhone Number [facility] [address] [facility] [address] [place] [phone] * (ABNORMAL) Erythropoietin (03/26/2025 4:25 PM EDT)ComponentValueRef RangeTest MethodAnalysis TimePerformed AtPathologist BjcttvzexAtcnqunnewpkvu4037(H)4 - 27 mU/mL03/28/2025 3:25 PM EDTARUP LABORATORY (JAVON)Comment: INTERPRETIVE INFORMATION: Erythropoietin Normal serum concentrations of [...] Low values may be observed in hemochromatosis. ?Expected Erythropoietin Concentrations in Patients ? with Uncomplicated Anemia ?? Erythropoietin (mU/mL) ?100,000 - + ?+ ? 10,000 - +....... ?+ ....... ?1,000 - + ?....... ?+ ? ........ ?100 - + ? ........ ?+ ?........ ? 10 - + ?........ ?+---+---+---+---+---+---+ ? 10 ?? 20 ??30 ??40 ??50 ??60 ??70 ?(Hematocrit %) ?(Contributions To Nephrology 1988:66:54-62) Decreased erythropoietin concentrations with an elevated hematocrit are observed in patients with polycythemia rubra vera, and with a decreased hematocrit in patients with HIV infection who are receiving AZT. ??Patients on AZT who have anemia and erythropoietin concentrations of less than or equal to 500 mU/mL may benefit from therapy with recombinant EPO ([facility] 322:4649-5127,1989). Performed By: [facility] [address] [place] [address] Ring Conductor: Fredrick Barnes MD, PhD CLIA Number: [id number] Specimen (Source)Anatomical Location / LateralityCollection Method / Volume Collection TimeReceived TimeBloodVenous blood specimen / UnknownVenipuncture / Uoqkovr6003/26/2025 4:25 PM EDT03/26/2025 4:25 PM EDT Narrative Authorizing ProviderResult TypeResult StatusRebecjacqueline Encarnacion [facility] BLOOD ORDERABLESFinal ResultPerforming OrganizationAddressCity/State/ZIP CodePhone Number [facility] ([facility]) [address] [place] [address] * (ABNORMAL) Lactate dehydrogenase (03/26/2025 4:25 PM EDT)ComponentValueRef RangeTest MethodAnalysis TimePerformed AtPathologist CbzoaapdcAUM616(H)84 - 246 U/L LAB CHEMISTRY METHOD 03/26/2025 4:46 PM EDTCTHREE RIVERS HEALTHC[facility] LABSpecimen (Source)Anatomical Location / LateralityCollection Method / VolumeCollection TimeReceived TimeBlood Venous blood specimen / UnknownVenipuncture / Hzisega9103/26/2025 4:25 PM EDT 03/26/2025 4:25 PM EDT Narrative Authorizing ProviderResult TypeResult StatusReberta LEE BLOOD ORDERABLESFinal ResultPerforming OrganizationAddressCity/State/ZIP CodePhone Number [facility] [address] [place] [address] * DNA Class I & II Verification Typing (03/26/2025 12:00 AM EDT)ComponentValue Ref RangeTest MethodAnalysis TimePerformed AtPathologist SignatureDNA Class I + II Verification Eqvful5604/10/2025 3:26 PM EDT HLA LABHLA ResultsSee Okadeqai23/24/2025 3:26 PM EDT HLA LABSpecimen (Source)Anatomical Location / LateralityCollection Method / VolumeCollection TimeReceived TimeBloodVenous blood specimen / Kmothaa66/09/604914/ 12:09 PM EDT Narrative HLA LAB - 04/10/2025 3:26 PM EDT Test performed at: [facility], 6th Floor [address] [place] [address] Authorizing ProviderResult TypeResult StatusMi LEE BLOOD ORDERABLESFinal ResultPerforming OrganizationAddressCity/State/ZIP CodePhone Number [facility] LAB [address] [place] [address] from Last 3 Months Insurance * Guarantor: Penny OrdazAccount TypeRelation to PatientDate of BirthPhone Billing AddressPersonal/BsrqvnBopv50/ [address] [place] [address] * Guarantor: Penny OrdazAccount TypeRelation to PatientDate of BirthPhone Billing AddressPersonal/AsxauqHjyz56/22/1961 [address] [place] [address] Advance Directives For more information, please contact: [phone] (Available ) TypeDate RecordedPatient RepresentativeExplanationHealthcare Power of Atty 05/30/2025 12:00 AM Care Teams Team MemberRelationshipSpecialtyStart DateEnd Date Generic Provider, No Assigned PcpMD NONE [place] [address] PCP - GeneralGeneral Olrzqbix60/7/25 [place] [address] [place] [address] BMT OncologistHematology and Oncology03/26/25 Martita Hopper MD [address] [place] [address] [address] [place], [place] [phone] Referring PhysicianOncology04/01/25 [place] [address] [address] Department [place] [address] Radiation OncologistRadiation Xrjtinxt85/10/25
--- OUTSIDE RECORDS SUMMARY | 2025-06-13 11:34 | XMS_ITS | Clinical Summary ---
Author Organization [facility] Address [address] [place] [address] Care Team Providers Care Inletter Name Role Phone Unavailable Primary Care Provider Unavailabl e Source Comments The following information is NOT included in Care Everywhere downloads:Psychiatric notes, ECG results, Cardiac Rehab notes, Pulmonary Function notes, data from [employer] (includes but not limited toPregnancy data,audiograms, eye exams, pre-surgical evaluation notes, well-child exam data).[facility] Medications MedicationSigDispense QuantityRefillsLast FilledStart DateEnd DateStatus Ojjaara 100 MG TABS 5Active triamcinolone 0.1 % cream Apply to affected area on trunk and extremities EVERY DAY to TWICE DAILY NEEDEDActive Active Problems ProblemNoted DateDiagnosed HzosVbvuycqkklbdq16/29/2025MDS (myelodysplastic syndrome)02/12/20251520Mfoedcirxofm89/01/2025 Encounters DateTypeDepartmentCare DudmZyhrysxtgjq68/04/2025Telephone [facility] Oncology Medical [address] [place] [address] Ramo Taylor MD Referral to Udhvsmgsio14/03/2025Telephone [facility] Oncology Medical [address] [place] [address] Korey Bueno MD 03/19/2025Telephone [facility] Oncology [address] [address] Korey Bueno MD 03/13/2025Telephone [facility] Oncology Medical [address] [place], [place] [phone] Willow Bond LSW Encounter opened in errorfrom Last 3 Months Social History Tobacco UseTypesPacks/DayYears UsedDateSmoking Tobacco: Never AssessedSex and Gender InformationValueDate RecordedSex Assigned at BirthNot on fileLegal Sex Male11/23/2024 11:23 AM EDTGender IdentityNot on fileSexual OrientationNot on file Last Filed Vital Signs Vital SignReadingTime TakenCommentsBlood Aahoolvc079/5508 10:49 AM EDT Ihbes3251 10:49 AM HHYKaajltbkyxl94.6 ??C (97.8 ??F)03/12/2025 10:49 AM EDTRespiratory Wcgn327202/20/2025 12:15 PM EDTOxygen Qxvqpcfjvx019%03/12/2025 10:49 AM EDTInhaled Oxygen Concentration--Fgrcpr39.6 kg (157 lb 14.4 oz) 03/12/2025 10:49 AM LTFEdgbuy837.5 cm (5' 9.88 )03/12/2025 10:49 AM EDTBody Mass Index22.7303/12/2025 10:49 AM EDT Plan of Treatment Health MaintenanceDue DateLast DisuMajoveygLezwamuzdst55/22/1961COVID-19 Vaccine (#1)04/08/1959Hepatitis C Qqscbqev88/22/1977Tdap Zpvtsju4710/06/1976Hepatitis A (HAV) Vaccine (optional start 19+ years)1977Pneumococcal Vaccine(s) (50+ yrs) (1 of 2 - PCV)1977Shingles (RZV) Vaccine (1 of 2)1977CRC Mmqkaufhj56/22/2004Cologuard (Stool DNA)10/07/2003FIT10/07/2003RSV vaccine (adult) (1 - Risk 50-74 years 1-dose series)2008Hepatitis B (HBV) Vaccine (optional start 60+ years)2018Influenza Vaccine (#1)5Annual Wellness Visit (G0438)0329Fpgjkxkkorg63/09/202912/03/2024Welcome to Medicare Visit (G0402)Tvnoitgbl79/09/2024 Insurance
--- OUTSIDE RECORDS SUMMARY | 2025-06-13 11:34 | XMS_ITS | Patient Health Record ---
Author Organization [facility] in [place] Address [address] [place] [address] Care Team Providers Care Trauma Coordinator Name Role Phone Dewey Ward DO Primary Care Provider Unavail able Ruchi, Keisha Unavailable [phone] RUCHI, KEISHA Unavailable [phone] Results Component Value Reference Range Notes PERIPHERAL SMEAR (Not yet re viewed by provider) Interpretation: Performing Lab: Notes/Report: [facility] , Peripheral Smear SEE SCANNED REPORT Performing Lab:see noteML - [facility] LBCBC AUTO DIFF (Not yet reviewed by provider) Interpretation: Performing Lab: Notes/Report: [facility] ,White Blood Count4.24.0-11.0 10 3/uLRed Blood Count2.334.70-6.10 10 6/uL Hemoglobin6.914.0-18.0 g/dLRESULTS CALLED TO FRANCISCO PACHECO RN AT 9318Dvroxfvpoe47.3 42.0-54.0 %RESULTS CALLED TO FRANCISCO PACHECO RN AT 0858Mean Corpuscular Vtvyuj10.4 80.0-94.0 fLMean Corpuscular Kvtdilgvqi49.625.9-34.0 pgMean Corpuscular HGB Conc 32.429.9-35.2 g/dLRed Cell Distribution Width20.611.0-15.0 %Platelet Fyjqg012 150-450 10 3/uLMean Platelet Vkebax10.59.5-13.5 fLPerforming Lab:see noteML - [facility] LBPROF 14(COMP METB) (Not yet reviewed by provider) Interpretation: Performing Lab: Notes/Report: [facility] ,Korfaq325017-825 mmol/LPotassium4.23.5-5.1 mmol/SElneewor43695-486 mmol/LCarbon Zrravoh54.321.0-32.0 mmol/LAnion Gap13.4Liqyfvb06285-210 mg/dLBlood Urea Nitrogen9.07.0-18.0 mg/dLCreatinine0.990.70-1.30 mg/dLEstimated GFR ( Radha>60>=60 mL/min/1.73m 2Estimated GFR (Non- Sallie>60>=60 mL/min/1.73m 2BUN Creatinine Ratio9.2Rkdnnoq9.68.5-10.1 mg/dLBilirubin Total0.90.2-1.0 mg/dL Aspartate Amino Jjkvnrfuetw7253-69 U/LAlanine Dnqqfiadgvppgblf8279-55 U/L Alkaline Xnyzuisgckh7553-873 U/LTotal Protein7.56.4-8.2 g/dLAlbumin Level3.73.4- 5.0 g/dLGlobulin3.8Albumin Globulin Ratio1.0Performing Lab:see noteML - [facility] LBManual Differential (Not yet reviewed by provider) Interpretation: Performing Lab: Notes/Report: [facility] ,Segmented Neutrophils % Sgfavz35.043.0-75.0Lymphocytes Percent Enhkqg06.020.5- 60.0 %Monocytes Percent Manual4.01.7-12.0 %Eosinophils Percent Manual0.00.9-7.0 %Basophils Percent Manual3.00.2-2.0 %Myelocytes % Manual1.0Blast % Manual3.0 Segmented Neut Absolute Manual2.941.4-6.5 10 3/uLLymphocytes Absolute Manual0.96 1.20-3.80 10 3/uLMonocytes Absolute Manual0.170.30-0.80 10 3/uLEosinophils Absolute Manual0.000.00-0.70 10 3/uLBasophils Abs Manual0.130.00-0.10 10 3/uL Myelocytes Absolute Manual0.04Blast Absolute Manual0.64Uzkuhwzmayoj7+Performing Lab:see noteML - [facility] LBPacked Red Blood Cells (Not yet reviewed by provider) Interpretation: Performing Lab: Notes/Report:Packed Red Blood Cells [id number] [facility] TRANSFUSED 11/16/24 1031 Manual Differential (Not yet reviewed by provider) Interpretation: Performing Lab: Notes/Report: [facility] ,Segmented Neutrophils % Shwmuy20.043.0-75.0Band Neutrophils %2.00-5 % Lymphocytes Percent Lvahqi43.020.5-60.0 %Monocytes Percent Manual2.01.7-12.0 % Eosinophils Percent Manual0.00.9-7.0 %Basophils Percent Manual3.00.2-2.0 % Myelocytes % Manual1.0Segmented Neut Absolute Manual4.421.4-6.5 10 3/uLBand Neutrophils Absolute0.10.0-0.3 10 3/uLLymphocytes Absolute Manual0.541.20-3.80 10 3/uLMonocytes Absolute Manual0.100.30-0.80 10 3/uLEosinophils Absolute Manual 0.000.00-0.70 10 3/uLBasophils Abs Manual0.160.00-0.10 10 3/uLMyelocytes Absolute Manual0.42Vxnjqpkyvvhg6+Performing Lab:see noteML - [facility] LBPacked Red Blood Cells (Not yet reviewed by provider) Interpretation: Performing Lab: Notes/Report:Packed Red Blood Cells [id number] [facility] TRANSFUSED 11/28/24 1206 Type and Screen (Not yet reviewed by provider) Interpretation: Performing Lab: Notes/Report: [facility] ,Blood TypeA PositiveAntibody ScreenNEGATIVECBC AUTO DIFF (Not yet reviewed by provider) Interpretation: Performing Lab: Notes/Report: [facility] ,White Blood Count5.04.0-11.0 10 3/uLRed Blood Count2.324.70-6.10 10 6/uL Hemoglobin7.014.0-18.0 g/tEKwwktkfqar57.042.0-54.0 %RESULTS CALLED TO LOUIE JAVEDRNMean Corpuscular Vqfjko81.580.0-94.0 fLMean Corpuscular Ntnphnvqxl53.2 25.9-34.0 pgMean Corpuscular HGB Conc33.329.9-35.2 g/dLRed Cell Distribution Width23.111.0-15.0 %Platelet Wdini871590-725 10 3/uLMean Platelet Hcbmge80.29.5- 13.5 fLPerforming Lab:see noteML - [facility] LBVitamin B1 (Thiamine), Blood (Not yet reviewed by provider) Interpretation: Performing Lab: Notes/Report: [facility] ,Vitamin B1 (Thiamine), Blood75.766.5-200.0 nmol/L This test was developed and its performance characteristics determined by [facility]. It has not been cleared or approved by the Food and Drug Administration. Performed at: - [address] [id number] Spin Instructor: Lissy Vital MD, Phone: [phone] Performing Lab:see noteLC - [facility] LBCBC AUTO DIFF (Not yet reviewed by provider) Interpretation: Performing Lab: Notes/Report: [facility] ,White Blood Count5.14.0-11.0 10 3/uLRed Blood Count2.324.70-6.10 10 6/uL Hemoglobin7.314.0-18.0 g/wXGumangaosy27.542.0-54.0 %RESULTS CALLED TO LOUIE JAVED RN at 1207Mean Corpuscular Oreqzc26.780.0-94.0 fLMean Corpuscular Xxslxnqvdj21.525.9-34.0 pgMean Corpuscular HGB Conc34.029.9-35.2 g/dLRed Cell Distribution Width24.511.0-15.0 %Platelet Dxvrt048591-800 10 3/uLMean Platelet Ddbgzh82.99.5-13.5 fLPerforming Lab:see noteML - [facility] LBManual Differential (Not yet reviewed by provider) Interpretation: Performing Lab: Notes/Report: [facility] ,Segmented Neutrophils % Xzhxpl52.043.0-75.0Band Neutrophils %4.00-5 % Lymphocytes Percent Azkryu86.020.5-60.0 %Monocytes Percent Manual6.01.7-12.0 % Eosinophils Percent Manual0.00.9-7.0 %Basophils Percent Manual1.00.2-2.0 % Metamyelocytes %1.0Myelocytes % Manual4.0Blast % Manual4.0Segmented Neut Absolute Manual3.111.4-6.5 10 3/uLBand Neutrophils Absolute0.20.0-0.3 10 3/uL Lymphocytes Absolute Manual0.961.20-3.80 10 3/uLMonocytes Absolute Manual0.30 0.30-0.80 10 3/uLEosinophils Absolute Manual0.000.00-0.70 10 3/uLBasophils Abs Manual0.050.00-0.10 10 3/uLMetamyelocytes Absolute Manual0.05Myelocytes Absolute Manual0.20Blast Absolute Manual0.20Nucleated Red Blood Nzdle4Zmbzxzfkntkv7+ Performing Lab:see noteML - [facility] LBManual Differential (Not yet reviewed by provider) Interpretation: Performing Lab: Notes/Report: [facility] ,Segmented Neutrophils % Feknsd64.043.0-75.0Band Neutrophils %5.00-5 % Lymphocytes Percent Psqyjm57.020.5-60.0 %Monocytes Percent Manual2.01.7-12.0 % Eosinophils Percent Manual0.00.9-7.0 %Basophils Percent Manual3.00.2-2.0 % Metamyelocytes %3.0Blast % Manual3.0Segmented Neut Absolute Manual4.391.4-6.5 10 3/uLBand Neutrophils Absolute0.30.0-0.3 10 3/uLLymphocytes Absolute Manual0.73 1.20-3.80 10 3/uLMonocytes Absolute Manual0.120.30-0.80 10 3/uLEosinophils Absolute Manual0.000.00-0.70 10 3/uLBasophils Abs Manual0.180.00-0.10 10 3/uL Metamyelocytes Absolute Manual0.18Blast Absolute Manual0.03Ubnihoqcjyog5+ Performing Lab:see noteML - [facility] LBCBC AUTO DIFF (Not yet reviewed by provider) Interpretation: Performing Lab: Notes/Report: [facility] ,White Blood Count6.54.0-11.0 10 3/uLRed Blood Count2.234.70-6.10 10 6/uL Hemoglobin7.014.0-18.0 g/dFPjrfastmjk11.442.0-54.0 %RESULTS CALLED TO FRANCISCO HONEYCUTT) IN ONCOLOGYMean Corpuscular Vevkkb18.580.0-94.0 fLMean Corpuscular Pdrpjkctfk38.425.9-34.0 pgMean Corpuscular HGB Conc34.329.9-35.2 g/dLRed Cell Distribution Width26.011.0-15.0 %Platelet Mvaee553239-115 10 3/uLMean Platelet Xebiro58.79.5-13.5 fLPerforming Lab:see noteML - [facility] LBPROF 14(COMP METB) (Not yet reviewed by provider) Interpretation: Performing Lab: Notes/Report: [facility] ,Iqmvja962441-105 mmol/LPotassium5.03.5-5.1 mmol/LCjcjbjsf61115-449 mmol/LCarbon Wczvcge97.121.0-32.0 mmol/LAnion Gap13.6Rxxpsnz44598-957 mg/dLBlood Urea Nitrogen9.07.0-18.0 mg/dLCreatinine0.950.70-1.30 mg/dLEstimated GFR ( Radha>60>=60 mL/min/1.73m 2Estimated GFR (Non- Sallie>60>=60 mL/min/1.73m 2BUN Creatinine Ratio9.1Sdljkxm3.08.5-10.1 mg/dLBilirubin Total1.00.2-1.0 mg/dL Aspartate Amino Thhpcnuaaye3102-36 U/LAlanine Ccjcrzhasvwcbmza1953-84 U/L Alkaline Hnwqklhlgdq8971-006 U/LTotal Protein8.76.4-8.2 g/dLAlbumin Level4.33.4- 5.0 g/dLGlobulin4.4Albumin Globulin Ratio1.0Performing Lab:see noteML - [facility] LBCBC AUTO DIFF (Not yet reviewed by provider) Interpretation: Performing Lab: Notes/Report: [facility] ,White Blood Count8.44.0-11.0 10 3/uLRed Blood Count2.314.70-6.10 10 6/uL Hemoglobin7.514.0-18.0 g/mPUagrpsoomb76.842.0-54.0 %RESULTS CALLED TO FRANCISCO PACHECO, RNMean Corpuscular Ktnkve90.480.0-94.0 fLMean Corpuscular Yoqiswcdiv84.5 25.9-34.0 pgMean Corpuscular HGB Conc34.429.9-35.2 g/dLRed Cell Distribution Width29.011.0-15.0 %Platelet Cxhvn341058-200 10 3/uLMean Platelet Pymnds53.29.5- 13.5 fLPerforming Lab:see noteML - [facility] LBManual Differential (Not yet reviewed by provider) Interpretation: Performing Lab: Notes/Report: [facility] ,Segmented Neutrophils % Tsgryn64.043.0-75.0Band Neutrophils %2.00-5 % Lymphocytes Percent Ovlnfp89.020.5-60.0 %Monocytes Percent Manual5.01.7-12.0 % Eosinophils Percent Manual0.00.9-7.0 %Basophils Percent Manual4.00.2-2.0 % Myelocytes % Manual1.0Blast % Manual3.0Segmented Neut Absolute Manual6.301.4-6.5 10 3/uLBand Neutrophils Absolute0.20.0-0.3 10 3/uLLymphocytes Absolute Manual 0.841.20-3.80 10 3/uLMonocytes Absolute Manual0.420.30-0.80 10 3/uLEosinophils Absolute Manual0.000.00-0.70 10 3/uLBasophils Abs Manual0.330.00-0.10 10 3/uL Myelocytes Absolute Manual0.08Blast Absolute Manual0.25Nucleated Red Blood Cells 1Ekszmojxxbzx6+Performing Lab:see noteML - [facility] LBMAGNESIUM (Not yet reviewed by provider) Interpretation: Performing Lab: Notes/Report: [facility] ,Magnesium1.81.8-2.4 mg/dLPerforming Lab:see noteML - [facility] LB CBC AUTO DIFF (Not yet reviewed by provider) Interpretation: Performing Lab: Notes/Report: [facility] ,White Blood Count12.54.0-11.0 10 3/uLRed Blood Count2.194.70-6.10 10 6/uL Hemoglobin7.114.0-18.0 g/mBFsuhdmzfow06.142.0-54.0 %RESULTS CALLED TO JAUN FOUNTAIN RN at 0918Mean Corpuscular Kfvmsx82.380.0-94.0 fLMean Corpuscular Aaiewsjirv68.425.9-34.0 pgMean Corpuscular HGB Conc33.629.9-35.2 g/dLRed Cell Distribution Width30.211.0-15.0 %Platelet Mjwus096400-259 10 3/uLMean Platelet Vpmycs98.49.5-13.5 fLPerforming Lab:see noteML - [facility] LBManual Differential (Not yet reviewed by provider) Interpretation: Performing Lab: Notes/Report: [facility] ,Segmented Neutrophils % Rgrmnd01.043.0-75.0Band Neutrophils %7.00-5 % Lymphocytes Percent Nazedc32.020.5-60.0 %Monocytes Percent Manual5.01.7-12.0 % Eosinophils Percent Manual0.00.9-7.0 %Basophils Percent Manual3.00.2-2.0 % Segmented Neut Absolute Manual9.371.4-6.5 10 3/uLBand Neutrophils Absolute0.9 0.0-0.3 10 3/uLLymphocytes Absolute Manual1.251.20-3.80 10 3/uLMonocytes Absolute Manual0.620.30-0.80 10 3/uLEosinophils Absolute Manual0.000.00-0.70 10 3/uLBasophils Abs Manual0.370.00-0.10 10 3/uLAnisocytosis3+Performing Lab:see noteML - [facility] LBManual Differential (Not yet reviewed by provider) Interpretation: Performing Lab: Notes/Report: [facility] ,Segmented Neutrophils % Ulrfmq63.043.0-75.0Band Neutrophils %15.00-5 % Lymphocytes Percent Wmpccr91.020.5-60.0 %Monocytes Percent Manual8.01.7-12.0 % Eosinophils Percent Manual1.00.9-7.0 %Basophils Percent Manual1.00.2-2.0 % Segmented Neut Absolute Manual5.651.4-6.5 10 3/uLBand Neutrophils Absolute1.3 0.0-0.3 10 3/uLLymphocytes Absolute Manual0.871.20-3.80 10 3/uLMonocytes Absolute Manual0.690.30-0.80 10 3/uLEosinophils Absolute Manual0.080.00-0.70 10 3/uLBasophils Abs Manual0.080.00-0.10 10 3/uLAnisocytosis3+Performing Lab:see noteML - [facility] LBManual Differential (Not yet reviewed by provider) Interpretation: Performing Lab: Notes/Report: [facility] ,Segmented Neutrophils % Gjovvg13.043.0-75.0Band Neutrophils %3.00-5 % Lymphocytes Percent Ihhfun56.020.5-60.0 %Monocytes Percent Manual3.01.7-12.0 % Eosinophils Percent Manual1.00.9-7.0 %Basophils Percent Manual3.00.2-2.0 % Myelocytes % Manual2.0Blast % Manual2.0Segmented Neut Absolute Manual6.131.4-6.5 10 3/uLBand Neutrophils Absolute0.30.0-0.3 10 3/uLLymphocytes Absolute Manual 1.001.20-3.80 10 3/uLMonocytes Absolute Manual0.250.30-0.80 10 3/uLEosinophils Absolute Manual0.080.00-0.70 10 3/uLBasophils Abs Manual0.250.00-0.10 10 3/uL Myelocytes Absolute Manual0.16Blast Absolute Manual0.13Tjtywuplwmix7+Performing Lab:see noteML - [facility] LBManual Differential (Not yet reviewed by provider) Interpretation: Performing Lab: Notes/Report: [facility] ,Segmented Neutrophils % Jiawrn98.043.0-75.0Band Neutrophils %9.00-5 % Lymphocytes Percent Iydcpy46.020.5-60.0 %Monocytes Percent Manual5.01.7-12.0 % Eosinophils Percent Manual2.00.9-7.0 %Basophils Percent Manual1.00.2-2.0 % Myelocytes % Manual2.0Blast % Manual2.0Segmented Neut Absolute Manual5.941.4-6.5 10 3/uLBand Neutrophils Absolute0.90.0-0.3 10 3/uLLymphocytes Absolute Manual 1.881.20-3.80 10 3/uLMonocytes Absolute Manual0.490.30-0.80 10 3/uLEosinophils Absolute Manual0.190.00-0.70 10 3/uLBasophils Abs Manual0.090.00-0.10 10 3/uL Myelocytes Absolute Manual0.19Blast Absolute Manual0.63Arxkuzaeposr3+Performing Lab:see noteML - [facility] LBManual Differential (Not yet reviewed by provider) Interpretation: Performing Lab: Notes/Report: [facility] ,Segmented Neutrophils % Wouacr59.043.0-75.0Band Neutrophils %6.00-5 % Lymphocytes Percent Sqrucv24.020.5-60.0 %Monocytes Percent Manual4.01.7-12.0 % Eosinophils Percent Manual0.00.9-7.0 %Basophils Percent Manual1.00.2-2.0 % Metamyelocytes %2.0Blast % Manual2.0Segmented Neut Absolute Manual4.621.4-6.5 10 3/uLBand Neutrophils Absolute0.40.0-0.3 10 3/uLLymphocytes Absolute Manual0.99 1.20-3.80 10 3/uLMonocytes Absolute Manual0.260.30-0.80 10 3/uLEosinophils Absolute Manual0.000.00-0.70 10 3/uLBasophils Abs Manual0.060.00-0.10 10 3/uL Metamyelocytes Absolute Manual0.13Blast Absolute Manual0.44Bwznvqzwcify2+ Performing Lab:see noteML - [facility] LBCBC AUTO DIFF (Not yet reviewed by provider) Interpretation: Performing Lab: Notes/Report: [facility] ,White Blood Count6.64.0-11.0 10 3/uLRed Blood Count2.014.70-6.10 10 6/uL Hemoglobin6.514.0-18.0 g/dLRESULTS CALLED TO MICHAEL VILLAREAL RNHematocrit18.9 42.0-54.0 %RESULTS CALLED TO MICHAEL VILLAREAL RNMean Corpuscular Ebuodb65.0 80.0-94.0 fLMean Corpuscular Lkmvjzsoum88.325.9-34.0 pgMean Corpuscular HGB Conc 34.429.9-35.2 g/dLRed Cell Distribution Width25.511.0-15.0 %Platelet Oaclt207 150-450 10 3/uLMean Platelet Iiufvx70.79.5-13.5 fLPerforming Lab:see noteML - [facility] LBManual Differential (Not yet reviewed by provider) Interpretation: Performing Lab: Notes/Report: [facility] ,Segmented Neutrophils % Xxqzfr68.043.0-75.0Band Neutrophils %5.00-5 % Lymphocytes Percent Oyvhbl18.020.5-60.0 %Monocytes Percent Manual6.01.7-12.0 % Eosinophils Percent Manual0.00.9-7.0 %Basophils Percent Manual3.00.2-2.0 %Blast % Manual5.0Segmented Neut Absolute Manual3.131.4-6.5 10 3/uLBand Neutrophils Absolute0.30.0-0.3 10 3/uLLymphocytes Absolute Manual1.501.20-3.80 10 3/uL Monocytes Absolute Manual0.340.30-0.80 10 3/uLEosinophils Absolute Manual0.00 0.00-0.70 10 3/uLBasophils Abs Manual0.170.00-0.10 10 3/uLBlast Absolute Manual 0.35Fpqfuofkadnj0+Macrocytosis1+Performing Lab:see noteML - [facility] LBPROF 14(COMP METB) (Not yet reviewed by provider) Interpretation: Performing Lab: Notes/Report: [facility] ,Irepxs228701-977 mmol/LPotassium5.73.5-5.1 mmol/HDcyuwcfo77586-421 mmol/LCarbon Jpsmmdp18.721.0-32.0 mmol/LAnion Gap17.0Otryfbh03114-179 mg/dLBlood Urea Inuyfumc75.07.0-18.0 mg/dLCreatinine1.120.70-1.30 mg/dLEstimated GFR ( Radha>60>=60 mL/min/1.73m 2Estimated GFR (Non- Sallie>60>=60 mL/min/1.73m 2BUN Creatinine Ratio18.5Dmoydac4.68.5-10.1 mg/dLBilirubin Total0.70.2-1.0 mg/dL Aspartate Amino Vnyfnofhdqy0185-62 U/LAlanine Yidzlfiitdxjpykb9207-21 U/L Alkaline Tsvgaliaxkz4642-068 U/LTotal Protein8.36.4-8.2 g/dLAlbumin Level4.13.4- 5.0 g/dLGlobulin4.2Albumin Globulin Ratio1.0Performing Lab:see noteML - [facility] LBManual Differential (Not yet reviewed by provider) Interpretation: Performing Lab: Notes/Report: [facility] ,Segmented Neutrophils % Rdzrlm37.043.0-75.0Band Neutrophils %12.00-5 % Lymphocytes Percent Gcndme25.020.5-60.0 %Monocytes Percent Manual4.01.7-12.0 % Eosinophils Percent Manual1.00.9-7.0 %Basophils Percent Manual0.00.2-2.0 % Metamyelocytes %2.0Blast % Manual5.0Segmented Neut Absolute Manual2.381.4-6.5 10 3/uLBand Neutrophils Absolute0.50.0-0.3 10 3/uLLymphocytes Absolute Manual1.03 1.20-3.80 10 3/uLMonocytes Absolute Manual0.180.30-0.80 10 3/uLEosinophils Absolute Manual0.040.00-0.70 10 3/uLBasophils Abs Manual0.000.00-0.10 10 3/uL Metamyelocytes Absolute Manual0.09Blast Absolute Manual0.04Jcaiwstqdiav8+ Performing Lab:see noteML - [facility] LBManual Differential (Not yet reviewed by provider) Interpretation: Performing Lab: Notes/Report: [facility] ,Segmented Neutrophils % Pwqwyd77.043.0-75.0Lymphocytes Percent Xcyooy54.020.5- 60.0 %Monocytes Percent Manual6.01.7-12.0 %Eosinophils Percent Manual0.00.9-7.0 %Basophils Percent Manual0.00.2-2.0 %Metamyelocytes %3.0Segmented Neut Absolute Manual3.511.4-6.5 10 3/uLLymphocytes Absolute Manual1.121.20-3.80 10 3/uL Monocytes Absolute Manual0.300.30-0.80 10 3/uLEosinophils Absolute Manual0.00 0.00-0.70 10 3/uLBasophils Abs Manual0.000.00-0.10 10 3/uLMetamyelocytes Absolute Manual0.15Giant Platelets1+Anisocytosis3+Ovalocytes1+Performing Lab:see noteML - [facility] LBPROF CHEM 8 (BAS METB) (Not yet reviewed by provider) Interpretation: Performing Lab: Notes/Report: [facility] ,Utoacu002223-960 mmol/LPotassium4.33.5-5.1 mmol/TAjxoclwq04578-946 mmol/LCarbon Uxngezh07.621.0-32.0 mmol/LAnion Gap14.3Fhpbrkv31633-943 mg/dLBlood Urea Xzjlhcrk07.07.0-18.0 mg/dLCreatinine0.860.70-1.30 mg/dLEstimated GFR ( Radha>60>=60 mL/min/1.73m 2Estimated GFR (Non- Sallie>60>=60 mL/min/1.73m 2BUN Creatinine Ratio14.8Ojipjia4.18.5-10.1 mg/dLPerforming Lab:see noteML - [facility] LBPROF CHEM 8 (BAS METB) (Not yet reviewed by provider) Interpretation: Performing Lab: Notes/Report: [facility] ,Phrcnu578489-207 mmol/LPotassium4.73.5-5.1 mmol/BWfltoihv54507-525 mmol/LCarbon Veyykqh41.021.0-32.0 mmol/LAnion Gap14.1Clnbnma38831-655 mg/dLBlood Urea Xuknmuth90.07.0-18.0 mg/dLCreatinine1.000.70-1.30 mg/dLEstimated GFR ( Radha>60>=60 mL/min/1.73m 2Estimated GFR (Non- Sallie>60>=60 mL/min/1.73m 2BUN Creatinine Ratio13.4Gpjuegg4.48.5-10.1 mg/dLPerforming Lab:see noteML - [facility] LBCBC AUTO DIFF (Not yet reviewed by provider) Interpretation: Performing Lab: Notes/Report: [facility] ,White Blood Count7.74.0-11.0 10 3/uLRed Blood Count2.424.70-6.10 10 6/uL Hemoglobin7.514.0-18.0 g/gANfoucxrule33.742.0-54.0 %RESULTS CALLED TO FRANCISCO PACHECO RN at 0927Mean Corpuscular Yymold01.880.0-94.0 fLMean Corpuscular Rdaowmbrvb28.025.9-34.0 pgMean Corpuscular HGB Conc33.029.9-35.2 g/dLRed Cell Distribution Width23.611.0-15.0 %Platelet Iskkn682460-001 10 3/uLMean Platelet Sfaqef73.19.5-13.5 fLPerforming Lab:see noteML - [facility] LBManual Differential (Not yet reviewed by provider) Interpretation: Performing Lab: Notes/Report: [facility] ,Segmented Neutrophils % Swcnbo87.043.0-75.0Band Neutrophils %3.00-5 % Lymphocytes Percent Rctchv77.020.5-60.0 %Monocytes Percent Manual6.01.7-12.0 % Eosinophils Percent Manual0.00.9-7.0 %Basophils Percent Manual2.00.2-2.0 %Blast % Manual4.0Segmented Neut Absolute Manual5.391.4-6.5 10 3/uLBand Neutrophils Absolute0.20.0-0.3 10 3/uLLymphocytes Absolute Manual1.151.20-3.80 10 3/uL Monocytes Absolute Manual0.460.30-0.80 10 3/uLEosinophils Absolute Manual0.00 0.00-0.70 10 3/uLBasophils Abs Manual0.150.00-0.10 10 3/uLBlast Absolute Manual 0.73Dxaqtrqumnou3+Performing Lab:see noteML - [facility] LB Erythropoietin (EPO), Serum (Not yet reviewed by provider) Interpretation: Performing Lab: Notes/Report: [facility] ,Erythropoietin (EPO), Aqyxf2740.62.6-18.5 mIU/mL [employer] DxI 800 Immunoassay System Values obtained with different assay methods or kits cannot be used interchangeably. Results cannot be interpreted as absolute evidence of the presence or absence of malignant disease. Performed at: [address] [id number] Spin Instructor: Jayy Partida PhD, Phone: [phone] Performing Lab:see noteLC - [facility] LBManual Differential (Not yet reviewed by provider) Interpretation: Performing Lab: Notes/Report: [facility] ,Segmented Neutrophils % Dzskph30.043.0-75.0Band Neutrophils %3.00-5 % Lymphocytes Percent Iikvjg18.020.5-60.0 %Monocytes Percent Manual4.01.7-12.0 % Eosinophils Percent Manual0.00.9-7.0 %Basophils Percent Manual2.00.2-2.0 % Metamyelocytes %2.0Blast % Manual4.0Segmented Neut Absolute Manual3.771.4-6.5 10 3/uLBand Neutrophils Absolute0.20.0-0.3 10 3/uLLymphocytes Absolute Manual1.23 1.20-3.80 10 3/uLMonocytes Absolute Manual0.230.30-0.80 10 3/uLEosinophils Absolute Manual0.000.00-0.70 10 3/uLBasophils Abs Manual0.110.00-0.10 10 3/uL Metamyelocytes Absolute Manual0.11Blast Absolute Manual0.93Eseqmghnoedl4+ Performing Lab:see noteML - [facility] LBCBC AUTO DIFF (Not yet reviewed by provider) Interpretation: Performing Lab: Notes/Report: [facility] ,White Blood Count5.14.0-11.0 10 3/uLRed Blood Count2.304.70-6.10 10 6/uL Hemoglobin7.114.0-18.0 g/rCKzqryyoueb48.242.0-54.0 %RESULTS CALLED TO LOUIE JAVED RNMean Corpuscular Mttqxb21.280.0-94.0 fLMean Corpuscular Lxpdbcaluc95.9 25.9-34.0 pgMean Corpuscular HGB Conc33.529.9-35.2 g/dLRed Cell Distribution Width23.111.0-15.0 %Platelet Vhqgy016118-956 10 3/uLMean Platelet Volume9.59.5- 13.5 fLPerforming Lab:see noteML - [facility] LBCBC AUTO DIFF (Not yet reviewed by provider) Interpretation: Performing Lab: Notes/Report: [facility] ,White Blood Count4.54.0-11.0 10 3/uLRed Blood Count2.434.70-6.10 10 6/uL Hemoglobin7.314.0-18.0 g/aGLnwlfsrinn68.942.0-54.0 %RESULTS CALLED TO Louie Javed RNMean Corpuscular Ccwlpt21.180.0-94.0 fLMean Corpuscular Povnunslen30.0 25.9-34.0 pgMean Corpuscular HGB Conc33.329.9-35.2 g/dLRed Cell Distribution Width22.711.0-15.0 %Platelet Jamdn858839-835 10 3/uLMean Platelet Ofzhua67.99.5- 13.5 fLPerforming Lab:see noteML - [facility] LBCBC AUTO DIFF (Not yet reviewed by provider) Interpretation: Performing Lab: Notes/Report: [facility] ,White Blood Count5.84.0-11.0 10 3/uLRed Blood Count2.404.70-6.10 10 6/uL Hemoglobin7.514.0-18.0 g/dWXqzwmgknwo62.642.0-54.0 %RESULTS CALLED TO FRANCISCO PACHECO RN at 1440Mean Corpuscular Jyfnml70.080.0-94.0 fLMean Corpuscular Pcmkkfgala64.325.9-34.0 pgMean Corpuscular HGB Conc34.729.9-35.2 g/dLRed Cell Distribution Width23.711.0-15.0 %Platelet Pzpun083828-888 10 3/uLMean Platelet Jrkqfk59.49.5-13.5 fLPerforming Lab:see noteML - [facility] LB Erythropoietin (EPO), Serum (Not yet reviewed by provider) Interpretation: Performing Lab: Notes/Report: [facility] ,Erythropoietin (EPO), Dyijb7806.62.6-18.5 mIU/mL Meagan Jojo UniCel DxI 800 Immunoassay System Values obtained with different assay methods or kits cannot be used interchangeably. Results cannot be interpreted as absolute evidence of the presence or absence of malignant disease. Performed at: [address] [id number] Spin Instructor: Jayy Partida PhD, Phone: [phone] Performing Lab:see noteLC - [facility] LBPROF 14(COMP METB) (Not yet reviewed by provider) Interpretation: Performing Lab: Notes/Report: [facility] ,Unikgq747981-848 mmol/LPotassium4.93.5-5.1 mmol/BSptivbbo53860-577 mmol/LCarbon Dntapjr37.321.0-32.0 mmol/LAnion Gap16.1Cysxvoc43124-020 mg/dLBlood Urea Lzjuhwfc17.07.0-18.0 mg/dLCreatinine0.940.70-1.30 mg/dLEstimated GFR ( Radha>60>=60 mL/min/1.73m 2Estimated GFR (Non- Sallie>60>=60 mL/min/1.73m 2BUN Creatinine Ratio18.4Yhqzdsr7.98.5-10.1 mg/dLBilirubin Total1.00.2-1.0 mg/dL Aspartate Amino Gbxfhjtuupp8727-66 U/LAlanine Lgwgvwrgjyfheiki8272-30 U/L Alkaline Xokugulmpmy3755-956 U/LTotal Protein8.46.4-8.2 g/dLAlbumin Level4.13.4- 5.0 g/dLGlobulin4.3Albumin Globulin Ratio1.0Performing Lab:see noteML - [facility] LBCBC AUTO DIFF (Not yet reviewed by provider) Interpretation: Performing Lab: Notes/Report: [facility] ,White Blood Count7.64.0-11.0 10 3/uLRed Blood Count2.534.70-6.10 10 6/uL Hemoglobin7.914.0-18.0 g/uDSioiwjoyhr50.642.0-54.0 %RESULTS CALLED TO MICHAEL VILLAREAL RNMean Corpuscular Eowznn40.380.0-94.0 fLMean Corpuscular Hemoglobin 31.225.9-34.0 pgMean Corpuscular HGB Conc33.529.9-35.2 g/dLRed Cell Distribution Width27.111.0-15.0 %Platelet Uauaq352041-689 10 3/uLMean Platelet Xnradf39.29.5- 13.5 fLPerforming Lab:see noteML - [facility] LBPacked Red Blood Cells (Not yet reviewed by provider) Interpretation: Performing Lab: Notes/Report:Packed Red Blood Cells [id number] AN RC TRANSFUSED 04/16/25 1040 Type and Screen (Not yet reviewed by provider) Interpretation: Performing Lab: Notes/Report: [facility] ,Blood TypeA PositiveAntibody ScreenNEGATIVEPROF CHEM 8 (BAS METB) (Not yet reviewed by provider) Interpretation: Performing Lab: Notes/Report: [facility] ,Mzaure073427-895 mmol/LPotassium5.13.5-5.1 mmol/XFcwupjab19321-951 mmol/LCarbon Bwetyhm86.821.0-32.0 mmol/LAnion Gap14.8Ieapoot14183-191 mg/dLBlood Urea Vhxucqgk53.07.0-18.0 mg/dLCreatinine1.240.70-1.30 mg/dLEstimated GFR ( Radha>60>=60 mL/min/1.73m 2Estimated GFR (Non- Ame58>=60 mL/min/1.73m 2 BUN Creatinine Ratio13.5Otwygby3.78.5-10.1 mg/dLPerforming Lab:see noteML - [facility] LBCBC AUTO DIFF (Not yet reviewed by provider) Interpretation: Performing Lab: Notes/Report: [facility] ,White Blood Count9.94.0-11.0 10 3/uLRed Blood Count2.494.70-6.10 10 6/uL Hemoglobin7.814.0-18.0 g/uEGtrymtkbpp92.642.0-54.0 %RESULTS CALLED TO PATRICIO FOUNTAIN RN at 0925Mean Corpuscular Bbymau29.880.0-94.0 fLMean Corpuscular Tgkrjfmaib23.325.9-34.0 pgMean Corpuscular HGB Conc33.129.9-35.2 g/dLRed Cell Distribution Width24.511.0-15.0 %Platelet Vjvvx763157-926 10 3/uLMean Platelet Vzevba95.59.5-13.5 fLPerforming Lab:see noteML - [facility] LBType and Screen (Not yet reviewed by provider) Interpretation: Performing Lab: Notes/Report: [facility] ,Blood TypeA PositiveAntibody ScreenNEGATIVEPacked Red Blood Cells (Not yet reviewed by provider) Interpretation: Performing Lab: Notes/Report:Packed Red Blood Cells [id number] AN RC TRANSFUSED 04/30/25 1147 [id number] AN RC TRANSFUSED 04/30/25 1310 PROF 14(COMP METB) (Not yet reviewed by provider) Interpretation: Performing Lab: Notes/Report: [facility] ,Nwqciw762413-230 mmol/LPotassium4.63.5-5.1 mmol/RRxawwzke76950-577 mmol/LCarbon Xrgyyrd10.621.0-32.0 mmol/LAnion Gap17.4Prdkewp46128-172 mg/dLBlood Urea Qybcelei29.07.0-18.0 mg/dLCreatinine1.190.70-1.30 mg/dLEstimated GFR ( Radha>60>=60 mL/min/1.73m 2Estimated GFR (Non- Sallie>60>=60 mL/min/1.73m 2BUN Creatinine Ratio12.5Uzunoge6.08.5-10.1 mg/dLBilirubin Total0.60.2-1.0 mg/dL Aspartate Amino Gjovekgaqse6016-04 U/LAlanine Hxvhntvccuhlvkcl6604-28 U/L Alkaline Dcyfgcajovj4616-507 U/LTotal Protein8.26.4-8.2 g/dLAlbumin Level3.83.4- 5.0 g/dLGlobulin4.4Albumin Globulin Ratio0.9Performing Lab:see noteML - [facility] LBCBC AUTO DIFF (Not yet reviewed by provider) Interpretation: Performing Lab: Notes/Report: [facility] ,White Blood Count8.44.0-11.0 10 3/uLRed Blood Count1.744.70-6.10 10 6/uL Hemoglobin5.814.0-18.0 g/dLRESULTS CALLED TO PATRICIO FOUNTAIN RNHematocrit16.5 42.0-54.0 %RESULTS CALLED TO PATRICIO FOUNTAIN RNMean Corpuscular Ierglp17.880.0- 94.0 fLMean Corpuscular Ottaipgblq87.325.9-34.0 pgMean Corpuscular HGB Conc35.2 29.9-35.2 g/dLRed Cell Distribution Width27.911.0-15.0 %Platelet Svghd209105-181 10 3/uLMean Platelet Vtxhqe83.99.5-13.5 fLPerforming Lab:see noteML - [facility] LBCBC AUTO DIFF (Not yet reviewed by provider) Interpretation: Performing Lab: Notes/Report: [facility] ,White Blood Count8.74.0-11.0 10 3/uLRed Blood Count2.134.70-6.10 10 6/uL Hemoglobin7.014.0-18.0 g/aXAuexzjcocn17.442.0-54.0 %RESULTS CALLED TOMean Corpuscular Vqjdxy81.880.0-94.0 fLMean Corpuscular Lncydlqwsh82.925.9-34.0 pg Mean Corpuscular HGB Conc34.329.9-35.2 g/dLRed Cell Distribution Width27.411.0- 15.0 %Platelet Brnoo944080-725 10 3/uLMean Platelet Mlrlnn67.69.5-13.5 fL Performing Lab:see noteML - [facility] LBManual Differential (Not yet reviewed by provider) Interpretation: Performing Lab: Notes/Report: [facility] ,Segmented Neutrophils % Etnsqd88.043.0-75.0Band Neutrophils %1.00-5 % Lymphocytes Percent Manual8.020.5-60.0 %Monocytes Percent Manual3.01.7-12.0 % Eosinophils Percent Manual1.00.9-7.0 %Basophils Percent Manual2.00.2-2.0 % Metamyelocytes %1.0Blast % Manual2.0Segmented Neut Absolute Manual7.871.4-6.5 10 3/uLBand Neutrophils Absolute0.10.0-0.3 10 3/uLLymphocytes Absolute Manual0.76 1.20-3.80 10 3/uLMonocytes Absolute Manual0.280.30-0.80 10 3/uLEosinophils Absolute Manual0.090.00-0.70 10 3/uLBasophils Abs Manual0.190.00-0.10 10 3/uL Metamyelocytes Absolute Manual0.09Blast Absolute Manual0.53Frxcvgblussn2+ Performing Lab:see noteML - [facility] LBCBC AUTO DIFF (Not yet reviewed by provider) Interpretation: Performing Lab: Notes/Report: [facility] ,White Blood Count9.64.0-11.0 10 3/uLRed Blood Count2.194.70-6.10 10 6/uL Hemoglobin7.214.0-18.0 g/kTDflfceqaze87.242.0-54.0 %RESULTS CALLED TO LOUIE JAVED, RNMean Corpuscular Reskat78.880.0-94.0 fLMean Corpuscular Kaftvqjlqx43.9 25.9-34.0 pgMean Corpuscular HGB Conc34.029.9-35.2 g/dLRed Cell Distribution Width30.411.0-15.0 %Platelet Bqozf292212-625 10 3/uLMean Platelet Ebewuv59.69.5- 13.5 fLPerforming Lab:see noteML - [facility] LBType and Screen (Not yet reviewed by provider) Interpretation: Performing Lab: Notes/Report: [facility] ,Blood TypeA PositiveAntibody ScreenNEGATIVEPacked Red Blood Cells (Not yet reviewed by provider) Interpretation: Performing Lab: Notes/Report:Packed Red Blood Cells [id number] AN RC TRANSFUSED 03/19/25 1018 Manual Differential (Not yet reviewed by provider) Interpretation: Performing Lab: Notes/Report: [facility] ,Segmented Neutrophils % Kmkiqq33.043.0-75.0Lymphocytes Percent Manual6.020.5- 60.0 %Monocytes Percent Manual1.01.7-12.0 %Eosinophils Percent Manual0.00.9-7.0 %Basophils Percent Manual0.00.2-2.0 %Metamyelocytes %5.0Myelocytes % Manual1.0 Segmented Neut Absolute Manual7.131.4-6.5 10 3/uLLymphocytes Absolute Manual0.49 1.20-3.80 10 3/uLMonocytes Absolute Manual0.080.30-0.80 10 3/uLEosinophils Absolute Manual0.000.00-0.70 10 3/uLBasophils Abs Manual0.000.00-0.10 10 3/uL Metamyelocytes Absolute Manual0.41Myelocytes Absolute Manual0.08Performing Lab: see noteML - [facility] LBCBC AUTO DIFF (Not yet reviewed by provider) Interpretation: Performing Lab: Notes/Report: [facility] ,White Blood Count8.24.0-11.0 10 3/uLRed Blood Count2.144.70-6.10 10 6/uL Hemoglobin6.814.0-18.0 g/dLRESULTS CALLED TO FRANCISCO PACHECO RNHematocrit20.542.0- 54.0 %RESULTS CALLED TO FRANCISCO PACHECO RNMeyen Corpuscular Mcasvh28.880.0-94.0 fL Mean Corpuscular Dqfqdkcxly72.825.9-34.0 pgMean Corpuscular HGB Conc33.229.9- 35.2 g/dLRed Cell Distribution Width29.211.0-15.0 %Platelet Ownzq759488-766 10 3/uLMean Platelet Jrctcu79.59.5-13.5 fLPerforming Lab:see note - [facility] LBManual Differential (Not yet reviewed by provider) Interpretation: Performing Lab: Notes/Report: [facility] ,Segmented Neutrophils % Pbmapu80.043.0-75.0Band Neutrophils %8.00-5 % Lymphocytes Percent Caizhd36.020.5-60.0 %Monocytes Percent Manual7.01.7-12.0 % Eosinophils Percent Manual0.00.9-7.0 %Basophils Percent Manual0.00.2-2.0 % Metamyelocytes %1.0Myelocytes % Manual2.0Blast % Manual3.0Segmented Neut Absolute Manual5.081.4-6.5 10 3/uLBand Neutrophils Absolute0.70.0-0.3 10 3/uL Lymphocytes Absolute Manual1.391.20-3.80 10 3/uLMonocytes Absolute Manual0.57 0.30-0.80 10 3/uLEosinophils Absolute Manual0.000.00-0.70 10 3/uLBasophils Abs Manual0.000.00-0.10 10 3/uLMetamyelocytes Absolute Manual0.08Myelocytes Absolute Manual0.16Blast Absolute Manual0.24Nucleated Red Blood Qdbiv2Ddmkqgozdwyib6+ Anisocytosis2+Schistocytes1+Performing Lab:see noteML - [facility] LB CBC AUTO DIFF (Not yet reviewed by provider) Interpretation: Performing Lab: Notes/Report: [facility] ,White Blood Count8.24.0-11.0 10 3/uLRed Blood Count2.234.70-6.10 10 6/uL Hemoglobin7.114.0-18.0 g/rATyjrixrwvj79.842.0-54.0 %RESULTS CALLED TO FRANCISCO PACHECO RN at 0814Mean Corpuscular Azgdpl13.380.0-94.0 fLMean Corpuscular Wobsfhilcu94.825.9-34.0 pgMean Corpuscular HGB Conc34.129.9-35.2 g/dLRed Cell Distribution Width28.011.0-15.0 %Platelet Vpzhx568998-344 10 3/uLMean Platelet Wtvzmq83.89.5-13.5 fLPerforming Lab:see note - [facility] LBManual Differential (Not yet reviewed by provider) Interpretation: Performing Lab: Notes/Report: [facility] ,Segmented Neutrophils % Cyzwws10.043.0-75.0Band Neutrophils %8.00-5 % Lymphocytes Percent Manual9.020.5-60.0 %Monocytes Percent Manual3.01.7-12.0 % Eosinophils Percent Manual1.00.9-7.0 %Basophils Percent Manual0.00.2-2.0 % Metamyelocytes %1.0Myelocytes % Manual1.0Blast % Manual3.0Segmented Neut Absolute Manual4.811.4-6.5 10 3/uLBand Neutrophils Absolute0.50.0-0.3 10 3/uL Lymphocytes Absolute Manual0.581.20-3.80 10 3/uLMonocytes Absolute Manual0.19 0.30-0.80 10 3/uLEosinophils Absolute Manual0.060.00-0.70 10 3/uLBasophils Abs Manual0.000.00-0.10 10 3/uLMetamyelocytes Absolute Manual0.06Myelocytes Absolute Manual0.06Blast Absolute Manual0.89Fkunsqcfzqqsd2+Anisocytosis2+Ovalocytes1+ Schistocytes1+Performing Lab:see noteML - [facility] LBType and Screen (Not yet reviewed by provider) Interpretation: Performing Lab: Notes/Report: [facility] ,Blood TypeA PositiveAntibody ScreenNEGATIVEPacked Red Blood Cells (Not yet reviewed by provider) Interpretation: Performing Lab: Notes/Report:Packed Red Blood Cells [id number] AN RC TRANSFUSED 02/26/25 1052 CBC AUTO DIFF (Not yet reviewed by provider) Interpretation: Performing Lab: Notes/Report: [facility] ,White Blood Count6.14.0-11.0 10 3/uLRed Blood Count2.414.70-6.10 10 6/uL Hemoglobin7.714.0-18.0 g/gXQplorjrxmd62.542.0-54.0 %RESULTS CALLED TO FRANCISCO PACHECO RN at 0913Mean Corpuscular Ppeenw06.480.0-94.0 fLMean Corpuscular Rwyfambnjv97.025.9-34.0 pgMean Corpuscular HGB Conc34.229.9-35.2 g/dLRed Cell Distribution Width24.011.0-15.0 %Platelet Ucmax242773-187 10 3/uLMean Platelet Teveko20.69.5-13.5 fLPerforming Lab:see note - [facility] LBManual Differential (Not yet reviewed by provider) Interpretation: Performing Lab: Notes/Report: [facility] ,Segmented Neutrophils % Yxqoxo08.043.0-75.0Band Neutrophils %5.00-5 % Lymphocytes Percent Aybrcw76.020.5-60.0 %Monocytes Percent Manual7.01.7-12.0 % Eosinophils Percent Manual0.00.9-7.0 %Basophils Percent Manual3.00.2-2.0 % Metamyelocytes %2.0Segmented Neut Absolute Manual3.591.4-6.5 10 3/uLBand Neutrophils Absolute0.30.0-0.3 10 3/uLLymphocytes Absolute Manual1.551.20-3.80 10 3/uLMonocytes Absolute Manual0.430.30-0.80 10 3/uLEosinophils Absolute Manual 0.000.00-0.70 10 3/uLBasophils Abs Manual0.180.00-0.10 10 3/uLMetamyelocytes Absolute Manual0.84Ixoolrkgtquq4+Performing Lab:see noteML - [facility] LBCBC AUTO DIFF (Not yet reviewed by provider) Interpretation: Performing Lab: Notes/Report: [facility] ,White Blood Count6.24.0-11.0 10 3/uLRed Blood Count2.004.70-6.10 10 6/uL Hemoglobin6.414.0-18.0 g/dLRESULTS CALLED TO SOFY MENDOZA RN at 1003 Vollhzjybl91.042.0-54.0 %RESULTS CALLED TO SOFY MENDOZA RN at 1003Mean Corpuscular Kzjxkb89.080.0-94.0 fLMean Corpuscular Hhtjiyflhv53.025.9-34.0 pg Mean Corpuscular HGB Conc33.729.9-35.2 g/dLRed Cell Distribution Width26.411.0- 15.0 %Platelet Nahyn013228-069 10 3/uLMean Platelet Pwyjqi12.19.5-13.5 fL Performing Lab:see noteML - [facility] LBType and Screen (Not yet reviewed by provider) Interpretation: Performing Lab: Notes/Report: Product order account changed to specimen [id number] by [facility] at 02/15/25 1018. [facility] ,Blood TypeA PositiveAntibody ScreenNEGATIVEPacked Red Blood Cells (Not yet reviewed by provider) Interpretation: Performing Lab: Notes/Report:Packed Red Blood Cells [id number] AP RC TRANSFUSED 02/15/25 1021 CBC AUTO DIFF (Not yet reviewed by provider) Interpretation: Performing Lab: Notes/Report: [facility] ,White Blood Count7.14.0-11.0 10 3/uLRed Blood Count2.264.70-6.10 10 6/uL Hemoglobin7.114.0-18.0 g/tORhpwtlpobh05.142.0-54.0 %RESULTS CALLED TO PATRICIO FOUNTAIN RNMean Corpuscular Hmskyz67.480.0-94.0 fLMean Corpuscular Hemoglobin 31.425.9-34.0 pgMean Corpuscular HGB Conc33.629.9-35.2 g/dLRed Cell Distribution Width25.311.0-15.0 %Platelet Ohmej411300-131 10 3/uLMean Platelet Uxcltt79.29.5- 13.5 fLPerforming Lab:see noteML - [facility] LBManual Differential (Not yet reviewed by provider) Interpretation: Performing Lab: Notes/Report: [facility] ,Segmented Neutrophils % Dgxado22.043.0-75.0Band Neutrophils %8.00-5 % Lymphocytes Percent Mckkww14.020.5-60.0 %Monocytes Percent Manual6.01.7-12.0 % Eosinophils Percent Manual1.00.9-7.0 %Basophils Percent Manual1.00.2-2.0 %Blast % Manual1.0Segmented Neut Absolute Manual3.071.4-6.5 10 3/uLBand Neutrophils Absolute0.40.0-0.3 10 3/uLLymphocytes Absolute Manual1.321.20-3.80 10 3/uL Monocytes Absolute Manual0.310.30-0.80 10 3/uLEosinophils Absolute Manual0.05 0.00-0.70 10 3/uLBasophils Abs Manual0.050.00-0.10 10 3/uLBlast Absolute Manual 0.83Zmhqdjoqchuxgb5+Anisocytosis1+Ovalocytes1+Schistocytes1+Performing Lab:see noteML - [facility] LBPROF 14(COMP METB) (Not yet reviewed by provider) Interpretation: Performing Lab: Notes/Report: [facility] ,Qyveik405338-916 mmol/LPotassium4.63.5-5.1 mmol/HRwcjcytd86329-443 mmol/LCarbon Vbkyhfx27.221.0-32.0 mmol/LAnion Gap13.4Bhfkjet07135-893 mg/dLBlood Urea Ymhczjlg32.07.0-18.0 mg/dLCreatinine0.920.70-1.30 mg/dLEstimated GFR ( Radha>60>=60 mL/min/1.73m 2Estimated GFR (Non- Sallie>60>=60 mL/min/1.73m 2BUN Creatinine Ratio21.3Bmgchbc0.08.5-10.1 mg/dLBilirubin Total1.10.2-1.0 mg/dL Aspartate Amino Hrfexskjhbj0128-03 U/LAlanine Etzlrjhznbvupfxi1947-04 U/L Alkaline Cferheykwlx2323-645 U/LTotal Protein8.26.4-8.2 g/dLAlbumin Level4.03.4- 5.0 g/dLGlobulin4.2Albumin Globulin Ratio1.0Performing Lab:see noteML - [facility] LBCBC AUTO DIFF (Not yet reviewed by provider) Interpretation: Performing Lab: Notes/Report: [facility] ,White Blood Count5.34.0-11.0 10 3/uLRed Blood Count2.454.70-6.10 10 6/uL Hemoglobin7.814.0-18.0 g/aFLrncavipin65.842.0-54.0 %RESULTS CALLED TO Louie Javed,RNMean Corpuscular Spzvui18.180.0-94.0 fLMean Corpuscular Kgxdowsqtb14.8 25.9-34.0 pgMean Corpuscular HGB Conc34.229.9-35.2 g/dLRed Cell Distribution Width24.311.0-15.0 %Platelet Xglnc833243-703 10 3/uLMean Platelet Iplkas35.69.5- 13.5 fLPerforming Lab:see noteML - [facility] LBType and Screen (Not yet reviewed by provider) Interpretation: Performing Lab: Notes/Report: [facility] ,Blood TypeA PositiveAntibody ScreenNEGATIVEPacked Red Blood Cells (Not yet reviewed by provider) Interpretation: Performing Lab: Notes/Report:Packed Red Blood Cells [id number] ON RC TRANSFUSED 01/29/25 1438 Manual Differential (Not yet reviewed by provider) Interpretation: Performing Lab: Notes/Report: [facility] ,Segmented Neutrophils % Wureal99.043.0-75.0Band Neutrophils %8.00-5 % Lymphocytes Percent Idpjul01.020.5-60.0 %Monocytes Percent Manual5.01.7-12.0 % Eosinophils Percent Manual0.00.9-7.0 %Basophils Percent Manual1.00.2-2.0 % Myelocytes % Manual2.0Blast % Manual5.0Segmented Neut Absolute Manual3.481.4-6.5 10 3/uLBand Neutrophils Absolute0.50.0-0.3 10 3/uLLymphocytes Absolute Manual 1.261.20-3.80 10 3/uLMonocytes Absolute Manual0.300.30-0.80 10 3/uLEosinophils Absolute Manual0.000.00-0.70 10 3/uLBasophils Abs Manual0.060.00-0.10 10 3/uL Myelocytes Absolute Manual0.12Blast Absolute Manual0.30Otwfrzwmtenf9+ Schistocytes1+Performing Lab:see noteML - [facility] LBCBC AUTO DIFF (Not yet reviewed by provider) Interpretation: Performing Lab: Notes/Report: [facility] ,White Blood Count6.04.0-11.0 10 3/uLRed Blood Count2.164.70-6.10 10 6/uL Hemoglobin6.914.0-18.0 g/dLRESULTS CALLED TO FRANCISCO PACHECO RN at 1320Hematocrit 20.242.0-54.0 %RESULTS CALLED TO FRANCISCO PACHECO RN at 1320Mean Corpuscular Volume 93.580.0-94.0 fLMean Corpuscular Hjbqaahexv35.925.9-34.0 pgMean Corpuscular HGB Conc34.229.9-35.2 g/dLRed Cell Distribution Width25.611.0-15.0 %Platelet Count 169323-566 10 3/uLMean Platelet Ncdghq42.49.5-13.5 fLPerforming Lab:see noteML - [facility] LBManual Differential (Not yet reviewed by provider) Interpretation: Performing Lab: Notes/Report: [facility] ,Segmented Neutrophils % Acvqrt98.043.0-75.0Band Neutrophils %10.00-5 % Lymphocytes Percent Zkjbaj98.020.5-60.0 %Monocytes Percent Manual2.01.7-12.0 % Eosinophils Percent Manual0.00.9-7.0 %Basophils Percent Manual3.00.2-2.0 % Metamyelocytes %2.0Blast % Manual1.0Segmented Neut Absolute Manual3.681.4-6.5 10 3/uLBand Neutrophils Absolute0.60.0-0.3 10 3/uLLymphocytes Absolute Manual0.82 1.20-3.80 10 3/uLMonocytes Absolute Manual0.110.30-0.80 10 3/uLEosinophils Absolute Manual0.000.00-0.70 10 3/uLBasophils Abs Manual0.160.00-0.10 10 3/uL Metamyelocytes Absolute Manual0.11Blast Absolute Manual0.09Wvekricnbcbb9+ Performing Lab:see noteML - [facility] LBPROF 14(COMP METB) (Not yet reviewed by provider) Interpretation: Performing Lab: Notes/Report: [facility] ,Xcfaaj266445-324 mmol/LPotassium4.63.5-5.1 mmol/FTeqqoufl44712-546 mmol/LCarbon Nmjknnd23.221.0-32.0 mmol/LAnion Gap14.6Iefrnqn22154-453 mg/dLBlood Urea Eesezxuk35.07.0-18.0 mg/dLCreatinine0.800.70-1.30 mg/dLEstimated GFR ( Radha>60>=60 mL/min/1.73m 2Estimated GFR (Non- Sallie>60>=60 mL/min/1.73m 2BUN Creatinine Ratio17.1Wmvsngr9.88.5-10.1 mg/dLBilirubin Total0.80.2-1.0 mg/dL Aspartate Amino Untctjstskq6915-54 U/LAlanine Wozqljgrgprhvbhc5037-31 U/L Alkaline Xltxkyzuvhi7330-614 U/LTotal Protein7.96.4-8.2 g/dLAlbumin Level3.93.4- 5.0 g/dLGlobulin4.0Albumin Globulin Ratio1.0Performing Lab:see noteML - [facility] LBCBC AUTO DIFF (Not yet reviewed by provider) Interpretation: Performing Lab: Notes/Report: [facility] ,White Blood Count5.54.0-11.0 10 3/uLRed Blood Count2.104.70-6.10 10 6/uL Hemoglobin6.514.0-18.0 g/dLRESULTS CALLED TO FRANCISCO PACHECO RNHGHpusbybmnj57.342.0- 54.0 %RESULTS CALLED TO FRANCISCO PACHECO RNMean Corpuscular Efubsl61.980.0-94.0 fLMean Corpuscular Hkytlztsmn32.025.9-34.0 pgMean Corpuscular HGB Conc33.729.9-35.2 g/dLRed Cell Distribution Width25.111.0-15.0 %Platelet Xwjkq535304-305 10 3/uL Mean Platelet Ywjywp50.99.5-13.5 fLPerforming Lab:see noteML - [facility] LBVitamin B6, Plasma (Not yet reviewed by provider) Interpretation: Performing Lab: Notes/Report: [facility] ,Vitamin B6, Plasma2.63.4-65.2 ug/L This test was developed and its performance characteristics determined by [facility]. It has not been cleared or approved by the Food and Drug Administration. Deficiency: <3.4 Marginal: 3.4 - 5.1 Adequate: >5.1 Performed at: [address] [id number] Spin Instructor: Lissy Vital MD, Phone: [phone] Performing Lab[facility] LBZINC SERUM OR PLASMA (Not yet reviewed by provider) Interpretation: Performing Lab: Notes/Report: [facility] ,Zinc Lpxez2957-202 ug/dL This test was developed and its performance characteristics determined by [facility]. It has not been cleared or approved by the Food and Drug Administration. Detection Limit = 5 Performed at: [address] [id number] Spin Instructor: Lissy Vital MD, Phone: [phone] Performing Lab:[facility] LBCOPPER, SERUM or PLASMA (Not yet reviewed by provider) Interpretation: Performing Lab: Notes/Report: [facility] ,Copper Xaqfx16254-643 ug/dL This test was developed and its performance characteristics determined by [facility]. It has not been cleared or approved by the Food and Drug Administration. Detection Limit = 5 Performing Lab:see noteLC - [facility] LBType and Screen (Not yet reviewed by provider) Interpretation: Performing Lab: Notes/Report: [facility] ,Blood TypeA PositiveAntibody ScreenNEGATIVEPacked Red Blood Cells (Not yet reviewed by provider) Interpretation: Performing Lab: Notes/Report:Packed Red Blood Cells [id number] AN RC TRANSFUSED 12/27/24 0801 Manual Differential (Not yet reviewed by provider) Interpretation: Performing Lab: Notes/Report: [facility] ,Segmented Neutrophils % Medegk31.043.0-75.0Band Neutrophils %9.00-5 % Lymphocytes Percent Lqddcb21.020.5-60.0 %Monocytes Percent Manual7.01.7-12.0 % Eosinophils Percent Manual0.00.9-7.0 %Basophils Percent Manual2.00.2-2.0 % Metamyelocytes %3.0Blast % Manual4.0Segmented Neut Absolute Manual2.751.4-6.5 10 3/uLBand Neutrophils Absolute0.50.0-0.3 10 3/uLLymphocytes Absolute Manual1.00 1.20-3.80 10 3/uLMonocytes Absolute Manual0.350.30-0.80 10 3/uLEosinophils Absolute Manual0.000.00-0.70 10 3/uLBasophils Abs Manual0.100.00-0.10 10 3/uL Metamyelocytes Absolute Manual0.15Blast Absolute Manual0.94Kpcbxqrhmpwj9+ Performing Lab:see noteML - [facility] LBType and Screen (Not yet reviewed by provider) Interpretation: Performing Lab: Notes/Report: [facility] ,Blood TypeA PositiveAntibody ScreenNEGATIVEPacked Red Blood Cells (Not yet reviewed by provider) Interpretation: Performing Lab: Notes/Report:Packed Red Blood Cells [id number] AP RC TRANSFUSED 12/19/24 1234 CBC AUTO DIFF (Not yet reviewed by provider) Interpretation: Performing Lab: Notes/Report: [facility] ,White Blood Count4.64.0-11.0 10 3/uLRed Blood Count2.254.70-6.10 10 6/uL Hemoglobin7.014.0-18.0 g/pLDpszwzhluj03.942.0-54.0 %RESULTS CALLED TO FRANCISCO PACHECO RNMean Corpuscular Xpjhjy64.980.0-94.0 fLMean Corpuscular Wzdmxiwwhr39.1 25.9-34.0 pgMean Corpuscular HGB Conc33.529.9-35.2 g/dLRed Cell Distribution Width22.811.0-15.0 %Platelet Gsghv606307-427 10 3/uLMean Platelet Paunom84.29.5- 13.5 fLPerforming Lab:see noteML - [facility] LBType and Screen (Not yet reviewed by provider) Interpretation: Performing Lab: Notes/Report: [facility] ,Blood TypeA PositiveAntibody ScreenNEGATIVEPacked Red Blood Cells (Not yet reviewed by provider) Interpretation: Performing Lab: Notes/Report:Packed Red Blood Cells [id number] AP RC TRANSFUSED 12/12/24 1128 CBC AUTO DIFF (Not yet reviewed by provider) Interpretation: Performing Lab: Notes/Report: [facility] ,White Blood Count5.94.0-11.0 10 3/uLRed Blood Count2.514.70-6.10 10 6/uL Hemoglobin7.714.0-18.0 g/mBNjudgorett14.342.0-54.0 %RESULTS CALLED TO BELKIS ELLIOTT RNMean Corpuscular Bstwmy32.880.0-94.0 fLMean Corpuscular Hemoglobin 30.725.9-34.0 pgMean Corpuscular HGB Conc33.029.9-35.2 g/dLRed Cell Distribution Width22.411.0-15.0 %Platelet Ggrvk020987-252 10 3/uLMean Platelet Rgozjk86.99.5- 13.5 fLPerforming Lab:see noteML - [facility] LBCBC AUTO DIFF (Not yet reviewed by provider) Interpretation: Performing Lab: Notes/Report: [facility] ,White Blood Count5.44.0-11.0 10 3/uLRed Blood Count2.234.70-6.10 10 6/uL Hemoglobin6.814.0-18.0 g/dLRESULTS CALLED TO LOUIE JAVED RN at 1145Hematocrit 20.642.0-54.0 %RESULTS CALLED TO LOUIE JAVED RN at 1145Mean Corpuscular Volume 92.480.0-94.0 fLMean Corpuscular Vmgxjjpakx84.525.9-34.0 pgMean Corpuscular HGB Conc33.029.9-35.2 g/dLRed Cell Distribution Width22.511.0-15.0 %Platelet Count 823967-668 10 3/uLMean Platelet Jtbyof66.69.5-13.5 fLPerforming Lab:see noteML - [facility] LBCT abdomen pelvis w con (Not yet reviewed by provider) Interpretation: Performing Lab: Notes/Report: Source Facility: [facility]-[address] [place] [address] [place] [address] CT Scan Report Signed Patient: PENNY MCQUEEN MR#: [id number] : 1960 Acct:[id number] Age/Sex: 64 / M ADM Date: 11/16/24 Loc: CT Attending Dr: Keisha Hopper M.D. Ordering Physician: Keisah Hopper M.D. Date of Service: 11/16/24 Procedure(s): CT abdomen pelvis w con Accession Number(s): [id number] cc: DEWEY WARD [place] [address] Patient Name: PENNY MCQUEEN MRN: [id number] date: 1960 Sex: M Assigned Patient Location: CT Current Patient Location: CT Accession/Order Number: [id number] Exam Date: 11/16/2024 14:28 Report Date: 11/16/2024 [...] Jr., D.O. 11/16/2024 2:34 PM Dictation Location: [place] [address] Electronically authenticated by: [id number] Y Date: 11/16/2024 14:34 Dictated By: Miguel Ángel Arevalo M.D. Signed By: 11/16/24 1437 DD/ 1434 TD/TT: Poolroom/Poolhall Manager:CT CHEST W CON (Not yet reviewed by provider) Interpretation: Performing Lab: Notes/Report: Source Facility: [place] [address] [place] [address] CT Scan Report Signed Patient: PENNY MCQUEEN MR#: [id number] : 1960 Acct:[id number] Age/Sex: 64 / M ADM Date: 11/16/24 Loc: CT Attending Dr: Keisha Hopper M.D. Ordering Physician: Keisha Hopper M.D. Date of Service: 11/16/24 Procedure(s): CT chest w con Accession Number(s): [id number] cc: DEWEY WARD [address] [address] Patient Name: PENNY MCQUEEN MRN: [facility]:[id number] date: 1960 Sex: M Assigned Patient Location: CT Current Patient Location: CT Accession/Order Number: [id number] Exam Date: 11/16/2024 14:28 Report Date: 11/16/2024 [...] Impression dictated by: Miguel Ángel Arevalo Jr., DNeena 11/16/2024 2:34 PM Dictation Location: [place] [address] Electronically authenticated by: [id number] Y Date: 11/16/2024 14:34 Dictated By: Miguel Ángel Arevalo M.D. Signed By: 11/16/24 1436 DD/ 1434 TD/TT: Poolroom/Poolhall Manager:Type and Screen (Not yet reviewed by provider) Interpretation: Performing Lab: Notes/Report: Product order account changed to specimen [id number] by [facility]ITALScott at 11/16/24 1030. Irradiated [facility] ,Blood TypeA PositiveAntibody ScreenNEGATIVEPacked Red Blood Cells (Not yet reviewed by provider) Interpretation: Performing Lab: Notes/Report:Packed Red Blood Cells [id number] AP RC NOT AVAILABLE [id number] AP RC TRANSFUSED 11/14/24 1111 CBC AUTO DIFF (Not yet reviewed by provider) Interpretation: Performing Lab: Notes/Report: [facility] ,White Blood Count4.44.0-11.0 10 3/uLRed Blood Count1.984.70-6.10 10 6/uL Hemoglobin6.114.0-18.0 g/dLRESULTS CALLED TO FRANCISCO PACHECO RN at 1310Hematocrit 18.242.0-54.0 %RESULTS CALLED TO FRANCISCO PACHECO RN at 1310Mean Corpuscular Volume 91.980.0-94.0 fLMean Corpuscular Onipsdqjhq70.825.9-34.0 pgMean Corpuscular HGB Conc33.529.9-35.2 g/dLRed Cell Distribution Width23.411.0-15.0 %Platelet Count 605393-815 10 3/uLMean Platelet Crjvkh45.59.5-13.5 fLPerforming Lab:see noteML - [facility] LBManual Differential (Not yet reviewed by provider) Interpretation: Performing Lab: Notes/Report: [facility] ,Segmented Neutrophils % Krjlqp51.043.0-75.0Band Neutrophils %2.00-5 % Lymphocytes Percent Tienkv74.020.5-60.0 %Monocytes Percent Manual4.01.7-12.0 % Eosinophils Percent Manual1.00.9-7.0 %Basophils Percent Manual0.00.2-2.0 % Myelocytes % Manual1.0Segmented Neut Absolute Manual2.351.4-6.5 10 3/uLBand Neutrophils Absolute0.10.0-0.3 10 3/uLLymphocytes Absolute Manual1.141.20-3.80 10 3/uLMonocytes Absolute Manual0.150.30-0.80 10 3/uLEosinophils Absolute Manual 0.030.00-0.70 10 3/uLBasophils Abs Manual0.000.00-0.10 10 3/uLMyelocytes Absolute Manual0.67Mwkimmmmrldj6+Ovalocytes1+Performing Lab:see noteML - [facility] LBPROF CHEM 8 (BAS METB) (Not yet reviewed by provider) Interpretation: Performing Lab: Notes/Report: [facility] ,Hkggcm094981-381 mmol/LPotassium4.53.5-5.1 mmol/QYrllxujf78247-402 mmol/LCarbon Dlnkxqf54.521.0-32.0 mmol/LAnion Gap13.2Krwrhwe84106-396 mg/dLBlood Urea Nitrogen9.07.0-18.0 mg/dLCreatinine1.060.70-1.30 mg/dLEstimated GFR ( Radha>60>=60 mL/min/1.73m 2Estimated GFR (Non- Sallie>60>=60 mL/min/1.73m 2BUN Creatinine Ratio8.0Aillquo0.98.5-10.1 mg/dLPerforming Lab:see noteML - [facility] LBCBC AUTO DIFF (Not yet reviewed by provider) Interpretation: Performing Lab: Notes/Report: [facility] ,White Blood Count3.84.0-11.0 10 3/uLRed Blood Count2.444.70-6.10 10 6/uL Hemoglobin7.214.0-18.0 g/tZMypboqksow20.542.0-54.0 %RESULTS CALLED TO FRANCISCO PACHECO RN at 1355Mean Corpuscular Bzerre81.280.0-94.0 fLMean Corpuscular Hruprffwac00.525.9-34.0 pgMean Corpuscular HGB Conc32.029.9-35.2 g/dLRed Cell Distribution Width20.411.0-15.0 %Platelet Zpidn338426-618 10 3/uLMean Platelet Jtajpl36.19.5-13.5 fLPerforming Lab:see note - [facility] LBType and Screen (Not yet reviewed by provider) Interpretation: Performing Lab: Notes/Report: Irradiated [facility] ,Blood TypeA PositiveAntibody ScreenNEGATIVEPacked Red Blood Cells (Not yet reviewed by provider) Interpretation: Performing Lab: Notes/Report:Packed Red Blood Cells [id number] AP RC TRANSFUSED 10/19/24 1128 Manual Differential (Not yet reviewed by provider) Interpretation: Performing Lab: Notes/Report: [facility] ,Segmented Neutrophils % Azyusv22.043.0-75.0Band Neutrophils %13.00-5 % Lymphocytes Percent Ixhzou39.020.5-60.0 %Monocytes Percent Manual2.01.7-12.0 % Eosinophils Percent Manual0.00.9-7.0 %Basophils Percent Manual1.00.2-2.0 % Metamyelocytes %4.0Blast % Manual2.0Segmented Neut Absolute Manual2.431.4-6.5 10 3/uLBand Neutrophils Absolute0.50.0-0.3 10 3/uLLymphocytes Absolute Manual0.84 1.20-3.80 10 3/uLMonocytes Absolute Manual0.080.30-0.80 10 3/uLEosinophils Absolute Manual0.000.00-0.70 10 3/uLBasophils Abs Manual0.040.00-0.10 10 3/uL Metamyelocytes Absolute Manual0.16Blast Absolute Manual0.65Naoiiyttbvsn9+ Ovalocytes2+Performing Lab:see noteML - [facility] LBPROF CHEM 8 (BAS METB) (Not yet reviewed by provider) Interpretation: Performing Lab: Notes/Report: [facility] ,Ncidwj722636-821 mmol/LPotassium4.73.5-5.1 mmol/XBybbvohq77084-838 mmol/LCarbon Pncfuyu46.121.0-32.0 mmol/LAnion Gap14.3Wfvohuj2643-149 mg/dLBlood Urea Nitrogen8.07.0-18.0 mg/dLCreatinine0.850.70-1.30 mg/dLEstimated GFR ( Radha>60>=60 mL/min/1.73m 2Estimated GFR (Non- Sallie>60>=60 mL/min/1.73m 2BUN Creatinine Ratio9.5Ieuheia3.58.5-10.1 mg/dLPerforming Lab:see noteML - [facility] LBManual Differential (Not yet reviewed by provider) Interpretation: Performing Lab: Notes/Report: [facility] ,Segmented Neutrophils % Bbgmga90.043.0-75.0Band Neutrophils %11.00-5 % Lymphocytes Percent Hedvcv64.020.5-60.0 %Monocytes Percent Manual2.01.7-12.0 % Eosinophils Percent Manual0.00.9-7.0 %Basophils Percent Manual1.00.2-2.0 %Blast % Manual3.0Segmented Neut Absolute Manual2.531.4-6.5 10 3/uLBand Neutrophils Absolute0.50.0-0.3 10 3/uLLymphocytes Absolute Manual1.031.20-3.80 10 3/uL Monocytes Absolute Manual0.080.30-0.80 10 3/uLEosinophils Absolute Manual0.00 0.00-0.70 10 3/uLBasophils Abs Manual0.040.00-0.10 10 3/uLBlast Absolute Manual 0.38Wxvoflvubdgsht8+Ovalocytes1+Performing Lab:see noteML - [facility] LBPROF 14(COMP METB) (Not yet reviewed by provider) Interpretation: Performing Lab: Notes/Report: [facility] ,Kjrjoz372995-533 mmol/LPotassium4.83.5-5.1 mmol/IBpixvtfc04418-384 mmol/LCarbon Ynjwubl11.221.0-32.0 mmol/LAnion Gap13.7Qksppxz0742-291 mg/dLBlood Urea Tqzljrdx36.07.0-18.0 mg/dLCreatinine0.790.70-1.30 mg/dLEstimated GFR ( Radha>60>=60 mL/min/1.73m 2Estimated GFR (Non- Sallie>60>=60 mL/min/1.73m 2BUN Creatinine Ratio15.9Acimgqn3.08.5-10.1 mg/dLBilirubin Total0.70.2-1.0 mg/dL Aspartate Amino Oalygphhhtd4810-75 U/LAlanine Bfablzywivxdvyoe4211-31 U/L Alkaline Xzhvgbbykjt3479-940 U/LTotal Protein7.76.4-8.2 g/dLAlbumin Level3.63.4- 5.0 g/dLGlobulin4.1Albumin Globulin Ratio0.9Performing Lab:see noteML - [facility] LBLDH (Not yet reviewed by provider) Interpretation: Performing Lab: Notes/Report: [facility] ,Lactate Buyleprxjozlu91332-683 U/LPerforming Lab:see note - [facility] LBIRON AND TIBC (Not yet reviewed by provider) Interpretation: Performing Lab: Notes/Report: [facility] ,Lctr992.065.0-175.0 ug/dLTotal Iron Binding Xlntypdx248.0250.0-450.0 ug/dL Percent Iron Kameohetgs38.4Performing Lab:see note - [facility] LB FERRITIN (Not yet reviewed by provider) Interpretation: Performing Lab: Notes/Report: [facility] ,Tweklfoo295.026.0-388.0 ng/mLPerforming Lab:see note - [facility] LBCBC AUTO DIFF (Not yet reviewed by provider) Interpretation: Performing Lab: Notes/Report: [facility] ,White Blood Count4.34.0-11.0 10 3/uLRed Blood Count2.104.70-6.10 10 6/uL Hemoglobin6.214.0-18.0 g/dLRESULTS CALLED TO FRANCISCO PACHECOSSTnbimfxgjl35.442.0- 54.0 %RESULTS CALLED TO FRANCISCO PACHECORNMean Corpuscular Bhcwok64.480.0-94.0 fLMean Corpuscular Zlvukghcby42.525.9-34.0 pgMean Corpuscular HGB Conc32.029.9-35.2 g/dLRed Cell Distribution Width21.811.0-15.0 %Platelet Exgvq459123-976 10 3/uL Mean Platelet Ilkhmg39.69.5-13.5 fLPerforming Lab:see noteML - [facility] LBManual Differential (Not yet reviewed by provider) Interpretation: Performing Lab: Notes/Report: [facility] ,Segmented Neutrophils % Bbmane90.043.0-75.0Band Neutrophils %7.00-5 % Lymphocytes Percent Manual9.020.5-60.0 %Monocytes Percent Manual4.01.7-12.0 % Eosinophils Percent Manual1.00.9-7.0 %Basophils Percent Manual2.00.2-2.0 % Metamyelocytes %1.0Myelocytes % Manual1.0Blast % Manual3.0Segmented Neut Absolute Manual5.111.4-6.5 10 3/uLBand Neutrophils Absolute0.50.0-0.3 10 3/uL Lymphocytes Absolute Manual0.631.20-3.80 10 3/uLMonocytes Absolute Manual0.28 0.30-0.80 10 3/uLEosinophils Absolute Manual0.070.00-0.70 10 3/uLBasophils Abs Manual0.140.00-0.10 10 3/uLMetamyelocytes Absolute Manual0.07Myelocytes Absolute Manual0.07Blast Absolute Manual0.73Jhzbirghmakx4+Performing Lab:see noteML - [facility] LBManual Differential (Not yet reviewed by provider) Interpretation: Performing Lab: Notes/Report: [facility] ,Segmented Neutrophils % Vzichv08.043.0-75.0Band Neutrophils %4.00-5 % Lymphocytes Percent Fyjxwk48.020.5-60.0 %Monocytes Percent Manual7.01.7-12.0 % Eosinophils Percent Manual1.00.9-7.0 %Basophils Percent Manual2.00.2-2.0 % Myelocytes % Manual1.0Segmented Neut Absolute Manual5.621.4-6.5 10 3/uLBand Neutrophils Absolute0.30.0-0.3 10 3/uLLymphocytes Absolute Manual0.831.20-3.80 10 3/uLMonocytes Absolute Manual0.530.30-0.80 10 3/uLEosinophils Absolute Manual 0.070.00-0.70 10 3/uLBasophils Abs Manual0.150.00-0.10 10 3/uLMyelocytes Absolute Manual0.75Mztobbjnqiwr8+Performing Lab:see note - [facility] LBIRON AND TIBC (Not yet reviewed by provider) Interpretation: Performing Lab: Notes/Report: [facility] ,Onnz629.065.0-175.0 ug/dLTotal Iron Binding Hzdcbkjg908.0250.0-450.0 ug/dL Percent Iron Vmtskflgvg53.1Performing Lab:see note - [facility] LB FERRITIN (Not yet reviewed by provider) Interpretation: Performing Lab: Notes/Report: [facility] ,Evakcqgf3310.026.0-388.0 ng/mLPerforming Lab:see [facility] hospital - [facility] LBType and Screen (Not yet reviewed by provider) Interpretation: Performing Lab: Notes/Report: Irradiated [facility] ,Blood TypeA PositiveAntibody ScreenNEGATIVEPacked Red Blood Cells (Not yet reviewed by provider) Interpretation: Performing Lab: Notes/Report:Packed Red Blood Cells [id number] AN RC TRANSFUSED 01/16/25 1214 Manual Differential (Not yet reviewed by provider) Interpretation: Performing Lab: Notes/Report: [facility] ,Segmented Neutrophils % Nojdvx23.043.0-75.0Band Neutrophils %4.00-5 % Lymphocytes Percent Xayuqy35.020.5-60.0 %Monocytes Percent Manual9.01.7-12.0 % Eosinophils Percent Manual0.00.9-7.0 %Basophils Percent Manual1.00.2-2.0 %Blast % Manual2.0Segmented Neut Absolute Manual2.851.4-6.5 10 3/uLBand Neutrophils Absolute0.20.0-0.3 10 3/uLLymphocytes Absolute Manual1.011.20-3.80 10 3/uL Monocytes Absolute Manual0.410.30-0.80 10 3/uLEosinophils Absolute Manual0.00 0.00-0.70 10 3/uLBasophils Abs Manual0.040.00-0.10 10 3/uLBlast Absolute Manual 0.17Ismirrkvtzrz4+Performing Lab:see noteML - [facility] LB Reason For Referral No Information Encounters Encounter Location Date Provider Diagnosis [facility] Oncology [address] [place] [address] [facility] [address] [place] [address]/[facility] [address] [place] [address]/POORVA [facility] [address] [place] [address]/potnva [facility] Oncology [address] [place] [address]/poorva [facility] [address] [place] [address]/poorva [facility] [address] [place] [address]/04/2025 Keisha [facility] [address] [place] [address]/poorva [facility] [address] [place] [address]/poorva [facility] Oncology [address] [place] [address]/potnva [facility] [address] [place] [address]/poorva [facility] [address] [place] [address]/ Keisha [facility] [address] [place] [address]/poorva [facility] [address] [place] [address]/poorva [facility] On[facility] [address] [place] [address]/POORVA [facility] [address] [place] [address]/poorva [facility] [address] [place] [address]/07/2024 Keisha [facility] [address] [place] [address]/poorva [facility] [address] [place] [address]/poorva [facility] Oncology [address] [place] [address]/potnva [facility] [address] [place] [address]/poorva [facility] [address] [place] [address]/ Keisha [facility] [address] [place] [address]/poorva [facility] [address] [place] [address]/poorva [facility] Oncology [address] [place] [address]/poorva [facility] [address] [place] [address]/poorva [facility] [address] [place] [address]/ [facility] [address] [place] [address]/potnva [facility] [address] [place] [address]/[facility] [address] [place] [address]/[facility] [address] [place] [address]/[facility] [address] [place] [address]/03/2025 [facility] [address] [place] [address]/[facility] Plan Of Treatment Pending Test Test Name Order Date CBC AUTO DIFF 10/09/2024 CBC AUTO DIFF 10/18/2024 CBC AUTO DIFF 11/13/2024 CBC AUTO DIFF 10/30/2024 CBC AUTO DIFF 11/27/2024 CBC AUTO DIFF 12/11/2024 CBC AUTO DIFF 12/18/2024 CBC AUTO DIFF 12/25/2024 CBC AUTO DIFF 12/04/2024 CBC AUTO DIFF 01/01/2025 CBC AUTO DIFF 01/08/2025 CBC AUTO DIFF 01/15/2025 CBC AUTO DIFF 01/29/2025 CBC AUTO DIFF 01/22/2025 CBC AUTO DIFF 02/04/2025 CBC AUTO DIFF 02/12/2025 CBC AUTO DIFF 02/15/2025 CBC AUTO DIFF 02/26/2025 CBC AUTO DIFF 02/19/2025 CBC AUTO DIFF 03/05/2025 CBC AUTO DIFF 03/19/2025 CBC AUTO DIFF 03/12/2025 CBC AUTO DIFF 03/26/2025 CBC AUTO DIFF 04/02/2025 CBC AUTO DIFF 04/09/2025 CBC AUTO DIFF 04/16/2025 CBC AUTO DIFF 04/23/2025 CBC AUTO DIFF 04/30/2025 CBC AUTO DIFF 05/07/2025 CBC AUTO DIFF 05/14/2025 COPPER, SERUM or PLASMA 12/27/2024 FERRITIN 01/16/2025 FERRITIN 10/09/2024 IRON AND TIBC 10/09/2024 IRON AND TIBC 01/16/2025 LDH 10/09/2024 MAGNESIUM 04/09/2025 PERIPHERAL SMEAR 10/09/2024 PROF 14(COMP METB) 10/09/2024 PROF 14(COMP METB) 11/13/2024 PROF 14(COMP METB) 01/15/2025 PROF 14(COMP METB) 02/04/2025 PROF 14(COMP METB) 01/08/2025 PROF 14(COMP METB) 04/30/2025 PROF 14(COMP METB) 03/19/2025 PROF 14(COMP METB) 02/26/2025 PROF CHEM 8 (BAS METB) 05/14/2025 PROF CHEM 8 (BAS METB) 05/07/2025 PROF CHEM 8 (BAS METB) 10/18/2024 PROF CHEM 8 (BAS METB) 12/11/2024 PROF CHEM 8 (BAS METB) 10/30/2024 ZINC SERUM OR PLASMA 12/27/2024 CT CHEST W CON 11/16/2024 Manual Differential 10/30/2024 Manual Differential 11/27/2024 Manual Differential 12/11/2024 Manual Differential 12/18/2024 Manual Differential 10/18/2024 Manual Differential 11/13/2024 Manual Differential 10/09/2024 Manual Differential 12/04/2024 Manual Differential 12/25/2024 Manual Differential 01/08/2025 Manual Differential 01/15/2025 Manual Differential 01/01/2025 Manual Differential 02/04/2025 Manual Differential 01/22/2025 Manual Differential 02/15/2025 Manual Differential 02/12/2025 Manual Differential 01/29/2025 Manual Differential 05/07/2025 Manual Differential 05/14/2025 Manual Differential 02/26/2025 Manual Differential 03/05/2025 Manual Differential 02/19/2025 Manual Differential 03/19/2025 Manual Differential 03/26/2025 Manual Differential 03/12/2025 Manual Differential 04/30/2025 Manual Differential 04/23/2025 Manual Differential 04/16/2025 Manual Differential 04/09/2025 Manual Differential 04/02/2025 Packed Red Blood Cells 04/16/2025 Packed Red Blood Cells 02/12/2025 Packed Red Blood Cells 04/30/2025 Packed Red Blood Cells 03/19/2025 Packed Red Blood Cells 02/26/2025 Packed Red Blood Cells 01/29/2025 Packed Red Blood Cells 01/15/2025 Packed Red Blood Cells 11/13/2024 Packed Red Blood Cells 12/25/2024 Packed Red Blood Cells 11/13/2024 Packed Red Blood Cells 10/18/2024 Packed Red Blood Cells 12/18/2024 Packed Red Blood Cells 12/11/2024 Packed Red Blood Cells 11/27/2024 Type and Screen 11/27/2024 Type and Screen 12/11/2024 Type and Screen 12/18/2024 Type and Screen 10/18/2024 Type and Screen 11/13/2024 Type and Screen 12/25/2024 Type and Screen 01/15/2025 Type and Screen 01/29/2025 Type and Screen 02/12/2025 Type and Screen 02/26/2025 Type and Screen 03/19/2025 Type and Screen 04/30/2025 Type and Screen 04/16/2025 CT abdomen pelvis w con 11/16/2024 Vitamin B6, Plasma 12/27/2024 Vitamin B1 (Thiamine), Blood 12/27/2024 Erythropoietin (EPO), Serum 01/16/2025 Erythropoietin (EPO), Serum 10/09/2024 Next Appt Details Provider Name:KEISHA HOPPER , 07/02/2025 09:00:00 AM, [address] [place], [address], Provider Name:KEISHA HOPPER , 07/02/2025 09:15:00 AM, [address] [place], [address], Insurance Providers Payer Name Payer Address Payer Phone Subscriber Number Group Number Insured Name Patient Relationship to Insured Coverage Start Date Coverage End Date [employer] [address] [facility] [phone] [id number] PENNY MCQUEEN Self - patient is the insured 5
--- OUTSIDE RECORDS SUMMARY | 2025-06-13 11:34 | XMS_ITS | Encounter Summary ---
Author Organization [facility] Address [address] [place] [address] Phone Care Team Providers Care Slubber Hand Name Role Phone Mi Encarnacion MD Unavailable [phone] Martita Hopper MD Unavailable [phone] Generic Provider, No Assigned Pcp MD Primary Car e Provider Unavailable Kirit Hilliard MD Unavailable [phone] Reason for Referral * Imaging (Routine) - AuthorizedSpecialtyDiagnoses / ProceduresReferred By ContactReferred To ContactRadiology Diagnoses Primary myelofibrosis (Multi) Stem cell transplant candidate Procedures CT bone marrow biopsy [place] [address] [place] [address] Phone: tel: fax: Referral IDStatusReasonStart DateExpiration DateVisits RequestedVisits [id number] Perform Procedure Encounter Details DateTypeDepartmentCare Team (Latest Contact Info)Adttkerjjlj97/10/2025Orders Only [facility] [address] [place] [address] [place] [address] [place], [place] [id number] Primary myelofibrosis (Multi); Stem cell transplant candidate Social History Tobacco UseTypesPacks/DayYears UsedDateSmoking Tobacco: EtlmwgHzboxuqnep039.2 1984 - 09/2024Smokeless Tobacco: NeverAlcohol UseStandard Drinks/WeekCommentsYes 2 (1 standard drink = 0.6 oz pure alcohol)PHQ-2AnswerDate RecordedPatient Health Questionnaire-2 Zdbls023Humiliation, Afraid, Rape, and Kick questionnaireAnswerDate RecordedWithin the [...] relatives?Once a week03/26/2025How often do you attend hindu or hindu services?1 to 4 times per year03/26/2025Do you belong to any clubs or organizations such as hindu groups, unions, fraternal or athletic groups, or school groups?No03/26/2025How often do you attend meetings of the clubs or organizations you belong to?Never03/26/2025re you , , , , never , or living with a partner?Hmzmoqo1403/26/2025UDIT-C AnswerDate RecordedQ1: How often do you have [...] food, housing, medical care, and heating?Somewhat hard03/26/2025 [place] of Occupational Health - Occupational Stress Questionnaire [...] were you homeless or living in a usp (including now)?No 03/26/2025B1300 Health LiteracyAnswerDate RecordedHow often do you need to have someone help you when you read instructions, pamphlets, or other written material from your doctor or pharmacy?Qjbfshfdl60/09/2025Digital Health Equity ScreeningAnswerDate RecordedWhich of the following do you know how to use AND have access to every day? (choose all that apply)Desktop computer, laptop computer, or tablet with broadband internet /09/2025Which of the following would you like to get connected to in order to receive a discount or for free? 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 ([employer])Not on fileNot on fileNot on filedocumented as of this encounter Functional Status * BPAnswerDate of VfnrnixmvnXnkyfl728/5305/29/2025 1:13 PM Natividad Whiteside MA * PulseAnswerDate of VfhvjptltoXfbrte6411/12/2025 1:13 PM Natividad Whiteside MA * QuestionAnswerDate of AssessmentAuthorHistory of Falling, Immediate or Within 3 Yzrpww378/12/2025 1:14 PM Natividad Whiteside MAMorse Fall Risk Score0 05/29/2025 1:14 PM Natividad Whiteside MA documented as of this encounter Plan of Treatment DateTypeDepartmentCare Team (Latest Contact Info)Ydgsuefrnyy00/03/2025 1:00 PM ESTOffice Visit Ely Nickerson [address] [facility] [address] [place] [phone] [place] [address] [place] [address] 06/24/2025 9:00 AM ESTInfusion [facility] [address] [place] [address] 06/24/2025 10:10 AM ESTOffice Visit [facility] [address] 1st [place] [phone] Chapo Navarro MD [address] Carvalho, [address] [place] [address] 07/01/2025 8:30 AM ESTAppointment [facility] [address] Lower Level [facility] [address] [place] [address] 07/01/2025 9:45 AM ESTAppointment [facility] [address] [place] [address] documented as of this encounter Results * CT bone marrow [...] Raphael. Data analyzed and images interpreted at [place], [place]. ?? MACRO: None ?? Signed by: Mat Rahman 06/06/2025 3:49 PM Dictation workstation: ?? [id number] Narrative 06/06/2025 3:49 PM EST Interpreted By: Mat Rahman and Beyersdorf Conner STUDY: CT-guided bone marrow biopsy; ??06/06/2025 3:13 pm ?? INDICATION: Signs/Symptoms:Pre BMT bone marrow. ?? ,D47.1 Chronic myeloproliferative disease (Multi),Z76.82 Awaiting organ transplant status ?? COMPARISON: CT abdomen pelvis 09/07/2024 ?? ACCESSION NUMBER(S): [id number] ?? ORDERING CLINICIAN: MI ENCARNACION ?? TECHNIQUE: [...] the interventional CT scanner bed. An initial electrical journeyman image and axial noncontrast CT images of [...] COMPARISON: CT abdomen pelvis 09/07/2024 ACCESSION NUMBER(S): [id number] ORDERING CLINICIAN: MI ENCARNACION TECHNIQUE: INTERVENTIONALIST(S): MD [...] the interventional CT scanner bed. An initial electrical journeyman image and axial noncontrast CT images of [...] Raphael. Data analyzed and images interpreted at [facility], [place], [place]. MACRO: None Signed by: Mat Rahman 06/06/2025 3:49 PM Dictation workstation: [id number] Authorizing ProviderResult TypeResult StatusMi SO CT PROCEDURESFinal Result * Magnesium (06/06/2025 11:17 AM EST)ComponentValueRef RangeTest MethodAnalysis TimePerformed AtPathologist SignatureMagnesium1.801.60 - 2.40 mg/dL LAB CHEMISTRY METHOD 06/06/2025 12:08 PM [facility] LABSpecimen (Source)Anatomical Location / LateralityCollection Method / VolumeCollection TimeReceived TimeBlood Venous blood specimen / UnknownVenipuncture / Hrvslrj5106/06/2025 11:17 AM EST 06/06/2025 11:17 AM EST Narrative Authorizing ProviderResult TypeResult StatusMi LEE BLOOD ORDERABLESFinal ResultPerforming OrganizationAddressCity/State/ZIP CodePhone Number [facility] [address] [place] [address] * (ABNORMAL) Comprehensive Metabolic Panel (06/06/2025 11:17 AM EST)Component ValueRef RangeTest MethodAnalysis TimePerformed AtPathologist SignatureGlucose 9574 - 99 mg/dL LAB CHEMISTRY METHOD 06/06/2025 12:08 PM [facility] FIRUpovua797(L)136 - 145 mmol/L LAB CHEMISTRY METHOD 06/06/2025 12:08 PM [facility] LABPotassium4.83.5 - 5.3 mmol/L LAB CHEMISTRY METHOD 06/06/2025 12:08 PM [facility] DUIAdxumhst92440 - 107 mmol/L LAB CHEMISTRY METHOD 06/06/2025 12:08 PM [facility] XVQIeprzyywyon0212 - 32 mmol/L LAB CHEMISTRY METHOD 06/06/2025 12:08 PM [facility] LABComment:Bicarbonate results may be falsely elevated when Lactate Dehydrogenase (LDH) concentrations exceed 2 ,000 U/L due to a temporary reagent manufacturing issue. If significantly elevated LDH levels are suspected, interpret bicarbonate results with caution, correlate with the patient???s clinical status, and consider confirming CO2 values using a blood gas analyzer.Anion Pwa0034 - 20 mmol/L LAB CHEMISTRY METHOD 06/06/2025 12:08 PM [facility] LABUrea Isysbimn823 - 23 mg/dL LAB CHEMISTRY METHOD 06/06/2025 12:08 PM [facility] LABCreatinine1.060.50 - 1.30 mg/dL LAB CHEMISTRY METHOD 06/06/2025 12:08 PM [facility] IVCdGDL62>60 mL/min/1.73m*2 LAB CHEMISTRY METHOD 06/06/2025 12:08 PM [facility] LABComment: Calculations of estimated GFR are performed using the 2020 CKD-EPI Study Refit equation without therace variable for the IDMS-Traceable creatinine methods. https://jasn.asnjournals.org/content//ASN.6486836512 Calcium9.38.6 - 10.3 mg/dL LAB CHEMISTRY METHOD 06/06/2025 12:08 PM [facility] LABAlbumin4.53.4 - 5.0 g/dL LAB CHEMISTRY METHOD 06/06/2025 12:08 PM [facility] LABAlkaline Mtwsjsrvwxg1455 - 136 U/L LAB CHEMISTRY METHOD 06/06/2025 12:08 PM [facility] LABTotal Protein8.16.4 - 8.2 g/dL LAB CHEMISTRY METHOD 06/06/2025 12:08 PM [facility] CATRCP382 - 39 U/L LAB CHEMISTRY METHOD 06/06/2025 12:08 PM [facility] LABBilirubin, Total0.90.0 - 1.2 mg/dL LAB CHEMISTRY METHOD 06/06/2025 12:08 PM [facility] UJZMLO6906 - 52 U/L LAB CHEMISTRY METHOD 06/06/2025 12:08 PM [facility] LABComment:Patients treated with Sulfasalazine may generate falsely decreased results for ALT.Specimen (Source)Anatomical Location / LateralityCollection Method / VolumeCollection TimeReceived TimeBloodVenous blood specimen / UnknownVenipuncture / Unknown 06/06/2025 11:17 AM EST06/06/2025 11:17 AM EST Narrative Authorizing ProviderResult TypeResult StatusRebecca Kayode LEE BLOOD ORDERABLESFinal ResultPerforming OrganizationAddressCity/State/ZIP CodePhone Number [facility] [address] [place] [phone] * (ABNORMAL) CBC and Auto Differential (06/06/2025 11:17 AM EST)ComponentValue Ref RangeTest MethodAnalysis TimePerformed AtPathologist FtldntnfxDIW26.1(H) 4.4 - 11.3 x10*3/uL LAB HEMATOLOGY METHOD 06/06/2025 12:34 PM [facility] LABnRBC0.4(H)0.0 - 0.0 /100 WBCs LAB HEMATOLOGY METHOD 06/06/2025 12:34 PM [facility] LABRBC2.56(L)4.50 - 5.90 x10*6/uL LAB HEMATOLOGY METHOD 06/06/2025 12:34 PM [facility] LABHemoglobin8.1(L)13.5 - 17.5 g/dL LAB HEMATOLOGY METHOD 06/06/2025 12:34 PM [facility] UZXLcyjllzkxv76.5(L)41.0 - 52.0 % LAB HEMATOLOGY METHOD 06/06/2025 12:34 PM [facility] OPWOSY4903 - 100 fL LAB HEMATOLOGY METHOD 06/06/2025 12:34 PM [facility] AHRDEN85.626.0 - 34.0 pg LAB HEMATOLOGY METHOD 06/06/2025 12:34 PM [facility] KMDYGPI68.532.0 - 36.0 g/dL LAB HEMATOLOGY METHOD 06/06/2025 12:34 PM [facility] MASARG02.7(H)11.5 - 14.5 % LAB HEMATOLOGY METHOD 06/06/2025 12:34 PM [facility] KCXYgbvcwxgn753(L)150 - 450 x10*3/uL LAB HEMATOLOGY METHOD 06/06/2025 12:34 PM [facility] LABImmature Granulocytes %, Automated8.3(H)0.0 - 0.9 % LAB HEMATOLOGY METHOD 06/06/2025 12:34 PM [facility] LABComment:Immature Granulocyte Count (IG) includes promyelocytes, myelocytes and metamyelocytes but does not i nclude bands. Percent differential counts (%) should be interpreted in the context of the absolute cell counts (cells/UL).Immature Granulocytes Absolute, Automated1.01(H)0.00 - 0.70 x10*3/uL LAB HEMATOLOGY METHOD 06/06/2025 12:34 PM [facility] LABSpecimen (Source)Anatomical Location / LateralityCollection Method / VolumeCollection TimeReceived TimeBlood Venous blood specimen / UnknownVenipuncture / Ucijijo3206/06/2025 11:17 AM EST 06/06/2025 11:17 AM EST Narrative [facility] - 06/06/2025 12:34 PM EST The [...] being reported. Authorizing ProviderResult TypeResult StatusRebecjacqueline Encarnacion MDLAB BLOOD ORDERABLESFinal ResultPerforming OrganizationAddressCity/State/ZIP CodePhone Number [facility] [address] [place] [address] documented in this encounter Visit Diagnoses Diagnosis Primary myelofibrosis (Multi) Myelofibrosis with myeloid metaplasia Stem cell transplant candidate Primary myelofibrosis (Multi) Myelofibrosis with myeloid metaplasia Stem cell transplant candidate documented in this encounter Additional Health Concerns InfectionOnset DateLast IndicatedResolved TimeCOVID-19 Rule-Out05/29/2025 8:40 PM ESTAssessmentNoted TimeA fall risk assessment has been completed for the rownknf2203/26/2025 2:03 PM EDTdocumented as of this encounter Care Teams Team MemberRelationshipSpecialtyStart DateEnd Date Generic Provider, No [place] [address] PCP - GeneralGeneral Hkvpeiif40/7/25 [place] [address] [address] BMT OncologistHematology and Oncology03/26/25 Martita Hopper MD [address] [place] [address] [address] [place] [address] Referring PhysicianOncology04/01/25 [place] [address] Department [place] [address] Radiation OncologistRadiation Szqbrqww20/10/25documented as of this encounter
--- OUTSIDE RECORDS SUMMARY | 2025-06-13 11:34 | XMS_ITS | Encounter Summary ---
Author Organization [facility] Address [address] [place] [address] Phone Care Team Providers Care Screening Representative Name Role Phone Rhona Atwood MD Unavailable [phone] Martita Hopper MD Unavailable [phone] Generic Provider, No Assigned Pcp MD Primary Car e Provider Unavailable Kirit Hilliard MD Unavailable [phone] Encounter Details DateTypeDepartmentCare Team (Latest Contact Info)Pvyzujgptmz09/12/2025Orders Only [facility] [place] [place] [address] Tootie Erwin, RN Stem cell transplant candidate (Primary Dx); Encounter for monitoring cardiotoxic drug therapy Social History Tobacco UseTypesPacks/DayYears UsedDateSmoking Tobacco: PnwdlfCmmflxxhlk983.2 1984 - 09/2024Smokeless Tobacco: NeverAlcohol UseStandard Drinks/WeekCommentsYes 2 (1 standard drink = 0.6 oz pure alcohol)PHQ-2AnswerDate RecordedPatient Health Questionnaire-2 Xsjyb52508/06/2024Humiliation, Afraid, Rape, and Kick questionnaireAnswerDate RecordedWithin the [...] relatives?Once a week03/26/2025How often do you attend cheondoism or restorationism services?1 to 4 times per year03/26/2025Do you belong to any clubs or organizations such as cheondoism groups, unions, fraMVERSE or athletic groups, or school groups?No03/26/2025How often do you attend meetings of the clubs or organizations you belong to?Never03/26/2025re you , , , , never , or living with a partner?Hlnvvyt7203/26/2025UDIT-C AnswerDate RecordedQ1: How often do you have [...] food, housing, medical care, and heating?Somewhat hard03/26/2025 [place] [facility]ational [facility] - Occupational Stress Questionnaire [...] were you homeless or living in a alf (including now)?No 03/26/2025B1300 Health LiteracyAnswerDate RecordedHow often do you need to have someone help you when you read instructions, pamphlets, or other written material from your doctor or pharmacy?Ymayigwfz30/09/2025Digital Health Equity ScreeningAnswerDate RecordedWhich of the following do you know how to use AND have access to every day? (choose all that apply)Desktop computer, laptop computer, or tablet with broadband internet fhaogxjlzs09/09/2025Which of the following would you like to get connected to in order to receive a discount or for free? 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[employer])Not on fileNot on fileNot on filedocumented as of this encounter Functional Status * BPAnswerDate of UcbipwwmsrTxpcli327/5305/29/2025 1:13 PM Natividad Whiteside MA * PulseAnswerDate of UwvgtzyzizNotwkr1796/12/2025 1:13 PM Natividad Whiteside MA * QuestionAnswerDate of AssessmentAuthorHistory of Falling, Immediate or Within 3 Ifbpsc008/12/2025 1:14 PM Natividad Whiteside MAMorse Fall Risk Score0 05/29/2025 1:14 PM Natividad Whiteside MA documented as of this encounter Plan of Treatment DateTypeDepartmentCare Team (Latest Contact Info)Awlrscfwjtg29/03/2025 1:00 PM ESTOffice Visit Ely Andres Liya [address] [place] [phone] [place] [address] [place] [address] 06/24/2025 9:00 AM ESTInfusion [facility] [address] [place] [address] 06/24/2025 10:10 AM ESTOffice Visit [facility] [address]st [place] [address] Chapo Navarro MD [address] [place] [address] 07/01/2025 8:30 AM ESTAppointment [facility] [address] [place] [address] 07/01/2025 9:45 AM ESTAppointment [facility] [address] [place] [address] documented as of this encounter Visit Diagnoses Diagnosis Stem cell transplant candidate- Primary Encounter for monitoring cardiotoxic drug therapy documented in this encounter Additional Health Concerns InfectionOnset DateLast IndicatedResolved TimeCOVID-19 Rule-Out05/29/2025 8:40 PM ESTAssessmentNoted TimeA fall risk assessment has been completed for the fgnarkf7303/26/2025 2:03 PM EDTdocumented as of this encounter Care Teams Team MemberRelationshipSpecialtyStart DateEnd Date Generic Provider, No Assigned PcpMD NONE [place] [address] PCP - GeneralGeneral Djuypstv59/7/25 [place] [address] [place] [address] BMT OncologistHematology and Oncology03/26/25 Martita Hopper MD [address] [place] [address] [address] [place] [address] Referring PhysicianOncology04/01/25 [place] [address] Department [place] [address] Radiation OncologistRadiation Fdoayluz89/10/25documented as of this encounter
--- OUTSIDE RECORDS SUMMARY | 2025-06-13 11:34 | XMS_ITS | Encounter Summary ---
Author Organization [facility] Address [address] [place] [address] Phone Care Team Providers Care Juice Scaleman Name Role Phone Rhona Atwood MD Unavailable [phone] Martita Hopper MD Unavailable [phone] Generic Provider, No Assigned Pcp MD Primary Car e Provider Unavailable Kirit Hilliard MD Unavailable [phone] Encounter Details DateTypeDepartmentCare Team (Latest Contact Info)Puunnjrfhxv25/20/2025Travel Social History Tobacco UseTypesPacks/DayYears UsedDateSmoking Tobacco: GhqtprCepxpiwnpo335.2 1984 - 09/2024Smokeless Tobacco: NeverAlcohol UseStandard Drinks/WeekCommentsYes 2 (1 standard drink = 0.6 oz pure alcohol)PHQ-2AnswerDate RecordedPatient Health Questionnaire-2 Bvfdh72708/06/2024Humiliation, Afraid, Rape, and Kick questionnaireAnswerDate RecordedWithin the [...] relatives?Once a week03/26/2025How often do you attend orthodoxy or church services?1 to 4 times per year03/26/2025Do you belong to any clubs or organizations such as orthodoxy groups, unions, fraPATHSENSORS or athletic groups, or school groups?No03/26/2025How often do you attend meetings of the clubs or organizations you belong to?Never03/26/2025re you , , , , never , or living with a partner?Dikaniz8603/26/2025UDIT-C AnswerDate RecordedQ1: How often do you have [...] food, housing, medical care, and heating?Somewhat hard03/26/2025 [facility] [place] of Occupational Health - Occupational Stress Questionnaire [...] homeless or living in a mcfp (including now)?No 03/26/2025B1300 Health LiteracyAnswerDate RecordedHow often do you need to have someone help you when you read instructions, pamphlets, or other written material from your doctor or pharmacy?Ohdglozbw59/09/2025Digital Health Equity ScreeningAnswerDate RecordedWhich of the following do you know how to use AND have access to every day? (choose all that apply)Desktop computer, laptop computer, or tablet with broadband internet icxfvaijhc72/09/2025Which of the following would you like to get connected to in order to receive a discount or for free? 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[employer])Not on fileNot on fileNot on filedocumented as of this encounter Functional Status * Over the past 2 weeks, how often have you been bothered by any of the following problems?QuestionAnswerDate of AssessmentAuthorLittle interest or pleasure in doing thingsNot at all06/06/2025 11:48 AM Juana Penny RN Feeling down, depressed, or hopelessNot at all06/06/2025 11:48 AM Juana Penny RNPatient Health Questionnaire-2 Fgian57908/06/2024 11:48 AM Juana Penny RN * Calculated C-SSRS Risk Score (Lifetime/Recent)AnswerDate of AssessmentAuthorNo Risk Dsbvqxaaw30/20/2025 11:48 AM Juana Penny RN * Center Suicide Severity Rating Scale (Screener/Recent Self-Report)Question AnswerDate of AssessmentAuthor1. Wish to be (Past 1 Month)No06/06/2025 11:48 AM Juana Penny RN2. Non-Specific Active Suicidal Thoughts (Past 1 Month)No06/06/2025 11:48 AM Juana Penny RN6. Suicidal Behavior (Lifetime)No06/06/2025 11:48 AM Juana Penny RN documented as of this encounter Plan of Treatment DateTypeDepartmentCare Team (Latest Contact Info)Tzlumwjjwih46/03/2025 1:00 PM ESTOffice Visit Ely Darymelvin Islasiliayush [address] [facility] [address] [place] [address] [place] [address] [place] [address] 06/24/2025 9:00 AM ESTInfusion [facility] [address] [place] [address] 06/24/2025 10:10 AM ESTOffice Visit [facility] [address] 1st [place] [address] Chapo Navarro MD [address] LARA minor, [address] [place] [address] 07/01/2025 8:30 AM ESTAppointment [facility] [address] Lower Level [facility] [address] [place] [address] 07/01/2025 9:45 AM ESTAppointment [facility] [address] [place] [phone] documented as of this encounter Visit Diagnoses Not on filedocumented in this encounter Additional Health Concerns AssessmentNoted TimeA fall risk assessment has been completed for the patient 06/06/2025 11:48 AM ESTdocumented as of this encounter Care Teams Team MemberRelationshipSpecialtyStart DateEnd Date Generic Provider, No Assigned Pcp, [place] [address] PCP - GeneralGeneral Wdojxtat07/7/25 [place] [address] [place] [address] BMT OncologistHematology and Oncology03/26/25 Martita Hopper MD [address] [place] [address] [address] [place] [address] Referring PhysicianOncology04/01/25 [place] [address] Department [place] [address] Radiation OncologistRadiation Oyroxxdv31/10/25documented as of this encounter
--- OUTSIDE RECORDS SUMMARY | 2025-06-13 11:34 | XMS_ITS | Clinical Summary ---
Author Organization [employer] Address [id number] [place] [address] Care Team Providers Care Spot Sprayer Name Role Phone Dewey Enriquez DO Primary Care Provider Allergies No known active allergies Medications MedicationSigDispense QuantityRefillsLast FilledStart DateEnd DateStatus cholecalciferol, vitamin D3, (VITAMIN D3) 10 mcg (400 unit) capsule Active rosuvastatin (CRESTOR) 10 mg tablet Take 1 tablet (10 mg total) by mouth nightly. 30 tablet 1114Active OJJAARA 100 mg tablet 5Active triamcinolone (KENALOG) 0.1 % cream Apply to affected area on trunk and extremities EVERY DAY to TWICE DAILY OMEITC035Active prochlorperazine (COMPAZINE) 5 mg tablet prn5Active ferrous sulfate 325 (65 FE) MG tablet Take 1 tablet (325 mg total) by mouth in the morning.5Active ascorbic acid, vitamin C, (VITAMIN C) 1000 mg tablet Take 1 tablet (1,000 mg total) by mouth in the morning.5Active Active Problems ProblemNoted DateDiagnosed DatePleural effusion, right11/01/2024Primary yqmdwlowzrcpt85/20/3907Gdfyhpxhlmcy55/20/2025Severe cljwfh7009/08/2024 Lymphadenopathy, rkpiivfg82/22/2025Memory loss09/06/2024 Resolved Problems ProblemNoted DateDiagnosed DateResolved DateTraumatic leg ulcer, right, with fat layer orlgslk30/ellulitis of right lower pszljzyrj81/22/2025 11/01/2024igarette mveues60/01/2025 Encounters DateTypeDepartmentCare MfxxLzymmydowou01/26/2025Orders Only [facility] [address] [place] [address] Kian Raman CMA Severe anemiafrom Last 3 Months Family History Medical HistoryRelationNameCommentsHeart attackBrotherDiabetesSister 2Relation NameStatusCommentsBrotherDeceasedFatherDeceasedMotherDeceasedSister 1AliveSister 2AliveSister 3AliveSister 4Alive Social History Tobacco UseTypesPacks/DayYears UsedDateSmoking Tobacco: LutzsgZvcayilxwb382.2 06/25/1979 - 09/02/2024Smokeless Tobacco: Never Tobacco Cessation:Counseling Given: Not Answered Alcohol UseStandard Drinks/WeekCommentsYes7 (1 standard drink = 0.6 oz pure alcohol)1 a [facility] UtilitiesAnswerDate RecordedIn the past 12 months has the [employer], gas, oil, or water [employer] threatened to shut off services in your home?No09/08/2024Social Connection and Isolation PanelAnswerDate RecordedIn a typical week, how many times do you talk on the phone with family, friends, or neighbors?Twice a week06/25/2024How often do you get together with friends or relatives?Twice a week06/25/2024How often do you attend quaker or adventism services?Never06/25/2024o you belong to any clubs or organizations such as quaker groups, unions, fraternal or athletic groups, or school groups?Yes 06/25/2024How often do you attend meetings of the clubs or organizations you belong to?More than 4 times per year06/25/2024re you , , , , never , or living with a partner?Svuntli4206/25/2024 AUDIT-CAnswerDate RecordedQ1: How often do you have a drink containing alcohol?4 or more times a week03/07/2025Q2: How many drinks containing alcohol do you have on a typical day when you are drinking?1 or Q3: How often do you have six or more drinks on one occasion?Never03/07/2025Overall Financial Resource Strain (CARDIA)AnswerDate RecordedHow hard is it for you to pay for the very basics like food, housing, medical care, and heating?Not hard at all06/25/2024 PHQ-2AnswerDate RecordedTotal Lxtjs787[facility] [place] of Occupational Health - Occupational Stress QuestionnaireAnswerDate RecordedDo you feel stress - tense, restless, nervous, or anxious, or unable to sleep at night because your mind is troubled all the time - these days?Not at all06/25/2024Exercise Vital SignAnswerDate RecordedOn average, how many days per week do you engage in moderate to strenuous exercise (like a brisk walk)?2 days06/25/2024On average, how many minutes do you engage in exercise at this level?10 min06/25/2024RAPARE - TransportationAnswerDate RecordedIn the past 12 months, has lack of transportation kept you from medical appointments or from getting medications?No 09/08/2024In the past 12 months, has lack of transportation kept you from meetings, work, or from getting things needed for daily living?No09/08/2024 Housing InstabilityAnswerDate RecordedAre you worried or concerned that in the next two months you may not have stable housing that you own, rent or stay in as a part of a household?No09/08/2024hildcareAnswerDate RecordedDo problems getting child guidance counselor make it difficult for you to work or study?No06/25/2024 EmploymentAnswerDate RecordedDo you need help finding a local career center and/or a training program?No06/25/2024Hunger ScreeningAnswerDate RecordedWithin the past 12 months we worried whether our food would run out before we got money to buy more.Never True03/07/2025Within the past 12 months the food we bought just didn't last and we didn't have money to get more.Never True03/07/2025 Purpose - LifeAnswerDate RecordedI have a purpose and direction in my life. Strongly Agree06/25/2024Sex and Gender InformationValueDate RecordedSex Assigned at BirthNot on fileLegal UpvLxbd0802/20/2015 11:28 AM EDTGender IdentityNot on fileSexual OrientationNot on file Last Filed Vital Signs Vital SignReadingTime TakenCommentsBlood Svcvrkdw407/48003/07/2025 10:02 AM EDT Ojbot740103/07/2025 10:02 AM HKXUnuhmdqcisz54.6 ??C (97.9 ??F)03/07/2025 10:02 AM EDTRespiratory Vfsz596503/07/2025 10:02 AM EDTOxygen Gwixtohtyk960%03/07/2025 10:02 AM EDTInhaled Oxygen Concentration--Ymbagc99.4 kg (157 lb 6.4 oz) 03/07/2025 10:02 AM CKKXkvpgn032.3 cm (5' 9.02 )03/07/2025 10:02 AM EDTBody Mass Index23.23003/07/2025 10:02 AM EDT Plan of Treatment DateTypeDepartmentCare Team (Latest Contact Info)Owraprwpafk00/22/2025 9:00 AM ESTOffice Visit [facility] [address] [place] [address] Dewey Enriquez DO [address] [place] [address] Health MaintenanceDue DateLast DoneCommentsZoster (Shingles) Vaccine (1 of 2) 1977RSV ( or age 60+ yrs) (1 - Risk 60-74 years 1-dose series) 2018Abdominal Aortic Aneurysm (AAA) Rfdrsy0210/07/2023Influenza Vaccine 03/18/2025Medicare Annual Wellness Visitolon Cancer Screening 3 Year Icqkcyrje40/01/2026Postponed from 10/07/2003 (Patient Refused) Adult BMI Tcxqohlgv60Depression Cioyljdrz30 Fall Risk Fepjuatee45Tobacco Mlbdlytiv62 DTaP,Tdap and Td Vaccines (2 - Td or Tdap) Goals GoalPatient Goal TypeAssociated ProblemsRecent ProgressPatient-Stated?Author <enter goal here> Molly Gallo LSW Note: Evaluation of progress towards goal: Current Discharge Plan; home with spouse, self care, denies needs at this time. Medical Devices Not on file Procedures Procedure NamePriorityDate/TimeAssociated DiagnosisCommentsAMB REFERRAL TO HEMATOLOGY / RRUTBVJQZbiwtgq34/26/2025 10:45 AM EDT Severe anemia from Last 3 Months Results * Ambulatory referral to Hematology / Oncology ([facility]) (04/12/2025 10:45 AM EDT) Narrative Authorizing ProviderResult TypeResult StatusDennis G Furlong DOOUTPATIENT REFERRAL ORDERABLESFinal ResultPerforming OrganizationAddressCity/State/ZIP Code Phone Number MANUALLY TRANSCRIBED RESULTS from Last 3 Months Insurance Advance Directives * Full Code (Latest Code Status on File) Date ActivatedDate InactivatedComments09/08/2024 1:29 AM09/12/2024 5:34 PM Care Teams Team MemberRelationshipSpecialtyStart DateEnd Date Dewey Enriquez DO [address] [facility] [address] [place] [address] [facility]
--- OUTSIDE RECORDS SUMMARY | 2025-06-13 11:34 | XMS_ITS ---
Author Organization [facility] Address [address] [place] [address] Care Team Providers Care Assistant Surveyor Name Role Phone Unavailable Primary Care Provider Unavailabl e Active Problems ProblemNoted DateDiagnosed QrxmPzjdcoeeqjcdp16/29/2025MDS (myelodysplastic syndrome)02/12/20256640Ltfpsxuxasdz49/01/2025 Current Treatment and Therapy Plans No current plan information found. Past Treatment and Therapy Plans Plan NameStart DateDiscontinue DateTreatment MedicationsDiscontinue ReasonPlan ProviderCyclesOP ONCOLOGY CLINIC BONE MARROW BIOPSY PROCEDURE REQUEST AND ORDERS /No medications scheduled.Therapy CompleteKinArline Jensen, DOTreatment not started
--- OUTSIDE RECORDS SUMMARY | 2025-06-13 11:35 | XMS_ITS | Encounter Summary ---
Author Organization [facility] Address [address] 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) Social History Tobacco UseTypesPacks/DayYears UsedDateSmoking Tobacco: XvyvbmCueeafeadl444.2 1984 - 09/2024Smokeless Tobacco: NeverAlcohol UseStandard Drinks/WeekCommentsYes 2 (1 standard drink = 0.6 oz pure alcohol)PHQ-2AnswerDate RecordedPatient Health Questionnaire-2 Szmzm535Humiliation, Afraid, Rape, and Kick questionnaireAnswerDate RecordedWithin the [...] relatives?Once a week03/26/2025How often do you attend mosque or sabianist services?1 to 4 times per year03/26/2025Do you belong to any clubs or organizations such as mosque groups, unions, fraternal or athletic groups, or school groups?No03/26/2025How often do you attend meetings of the clubs or organizations you belong to?Never03/26/2025re you , , , , never , or living with a partner?Vcdtgzp5503/26/2025UDIT-C AnswerDate RecordedQ1: How often do you have [...] food, housing, medical care, and heating?Somewhat hard03/26/2025 [place] of Occupational Health - Occupational Stress Questionnaire [...] were you homeless or living in a detention (including now)?No 03/26/2025B1300 Health LiteracyAnswerDate RecordedHow often do you need to have someone help you when you read instructions, pamphlets, or other written material from your doctor or pharmacy?Vkzdfpkal91/09/2025Digital Health Equity ScreeningAnswerDate RecordedWhich of the following do you know how to use AND have access to every day? (choose all that apply)Desktop computer, laptop computer, or tablet with broadband internet /09/2025Which of the following would you like to get connected to in order to receive a discount or for free? 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 ([employer])Not on fileNot on fileNot on filedocumented as of this encounter Plan of Treatment DateTypeDepartmentCare Team (Latest Contact Info)Vxkelopqceo12/03/2025 1:00 PM ESTOffice Visit Ely Nickerson [address] [place] [phone] [place] [address] [place] [address] 06/24/2025 9:00 AM ESTInfusion [facility] [address] [place] [phone] 06/24/2025 10:10 AM ESTOffice Visit [facility] [address] [place] [phone] Chapo Navarro MD [address] [place] [address] 07/01/2025 8:30 AM ESTAppointment [facility] [address] Lower Level [facility] [address] [place] [phone] 07/01/2025 9:45 AM ESTAppointment [facility] [address] Lower Level [facility] [address] [place], [place] [phone] documented as of this encounter Visit Diagnoses Diagnosis 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) documented in this encounter Additional Health Concerns InfectionOnset DateLast IndicatedResolved TimeCOVID-19 Rule-Out05/29/2025 8:40 PM ESTAssessmentNoted TimeA fall risk assessment has been completed for the jfomnnp1503/26/2025 2:03 PM EDTdocumented as of this encounter Care Teams Team MemberRelationshipSpecialtyStart DateEnd Date Generic Provider, [place] [address] PCP - GeneralGeneral Ewwqlsxp06/7/25 [place] [address] [place] [address] BMT OncologistHematology and Oncology03/26/25 Martita Hopper MD [address] [place] [address] [address] [place] [address] Referring PhysicianOncology04/01/25 [place] [address] Department of Radiation Oncology [place] [id number] Radiation OncologistRadiation Decgexfw08/10/25documented as of this encounter
--- OUTSIDE RECORDS SUMMARY | 2025-06-13 11:35 | XMS_ITS | Encounter Summary ---
Author Organization [facility] Address [address] [place] [address] Phone Care Team Providers Care [place] Name Role Phone Rhona Atwood MD Unavailable [phone] Martita Hopper MD Unavailable [phone] Generic Provider, No Assigned Pcp MD Primary Car e Provider Unavailable Kirit Hilliard MD Unavailable [phone] Encounter Details DateTypeDepartmentCare Team (Latest Contact Info)Dpfokcaaobb32/20/2025Orders Only [facility] [address] [place] [address] Aurea Patel, [address] [place] [address] Social History Tobacco UseTypesPacks/DayYears UsedDateSmoking Tobacco: DvkepwMmnpkwbfke345.2 1984 - 09/2024Smokeless Tobacco: NeverAlcohol UseStandard Drinks/WeekCommentsYes 2 (1 standard drink = 0.6 oz pure alcohol)PHQ-2AnswerDate RecordedPatient Health Questionnaire-2 Ejost90208/06/2024Humiliation, Afraid, Rape, and Kick questionnaireAnswerDate RecordedWithin the [...] relatives?Once a week03/26/2025How often do you attend jehovah's witness or congregation services?1 to 4 times per year03/26/2025Do you belong to any clubs or organizations such as jehovah's witness groups, unions, fraternal or athletic groups, or school groups?No03/26/2025How often do you attend meetings of the clubs or organizations you belong to?Never03/26/2025re you , , , , never , or living with a partner?Zlyckhu3903/26/2025UDIT-C AnswerDate RecordedQ1: How often do you have [...] food, housing, medical care, and heating?Somewhat hard03/26/2025 [place] [employer] of Occupational Health - Occupational Stress Questionnaire [...] were you homeless or living in a half-way (including now)?No 03/26/2025B1300 Health LiteracyAnswerDate RecordedHow often do you need to have someone help you when you read instructions, pamphlets, or other written material from your doctor or pharmacy?Ycbbicjmu43/09/2025Digital Health Equity ScreeningAnswerDate RecordedWhich of the following do you know how to use AND have access to every day? (choose all that apply)Desktop computer, laptop computer, or tablet with broadband internet cuyeqziqef09/09/2025Which of the following would you like to get connected to in order to receive a discount or for free? (choose all that apply)Patient iusczyzn09/09/2025Sex and Gender InformationValueDate RecordedSex Assigned at BirthNot [...] 11:48 AM Juana Penny RNPatient Health Questionnaire-2 Wbhdw29008/06/2024 11:48 AM Juana Penny RN * Calculated C-SSRS Risk Score (Lifetime/Recent)AnswerDate of AssessmentAuthorNo Risk Agknpwzmm87/20/2025 11:48 AM Juana Penny RN * [place] Suicide Severity Rating Scale (Screener/Recent Self-Report)Question AnswerDate of AssessmentAuthor1. Wish to be (Past 1 Month)No06/06/2025 11:48 AM Juana Penny RN2. Non-Specific Active Suicidal Thoughts (Past 1 Month)No06/06/2025 11:48 AM Juana Penny RN6. Suicidal Behavior (Lifetime)No06/06/2025 11:48 AM Juana Penny RN documented as of this encounter Plan of Treatment DateTypeDepartmentCare Team (Latest Contact Info)Wtcwsobncbi03/03/2025 1:00 PM ESTOffice Visit Ely Nickerson [address] [place] [address] [facility] [address] [place] [address] [place] [address] [place] [address] 06/24/2025 9:00 AM ESTInfusion [facility] [address] [place] [phone] 06/24/2025 10:10 AM ESTOffice Visit [facility] [address] [place] [address] Chapo Navarro MD [address], [address] [place] [address] 07/01/2025 8:30 AM ESTAppointment [facility] [address] Lower Level [facility] [address] [place] [phone] 07/01/2025 9:45 AM ESTAppointment [facility] [address] Lower Level [facility] [address] [place] [phone] documented as of this encounter Visit Diagnoses Not on filedocumented in this encounter Additional Health Concerns AssessmentNoted TimeA fall risk assessment has been completed for the patient 06/06/2025 11:48 AM ESTdocumented as of this encounter Care Teams Team MemberRelationshipSpecialtyStart DateEnd Date Generic Provider, No Assigned Pcp, [place] [address] PCP - GeneralGeneral Yqxhxezc19/7/25 [place] [address] [place] [address] BMT OncologistHematology and Oncology03/26/25 Martita Hopper MD [address] [place] [address] [address] [place] [address] Referring PhysicianOncology04/01/25 [place] [address] [facility] Department [place] [address] Radiation OncologistRadiation Sislwnow60/10/25documented as of this encounter
[2025-06-13 11:38] LABS: Hemoglobin 7.7 g/dL (14.0-18.0); Mean Corpuscular HGB Conc 34.2 g/dL (29.9-35.2); Mean Corpuscular Hemoglobin 32.4 pg (25.9-34.0); Mean Corpuscular Volume 94.5 fL (80.0-94.0); Platelet Count 201 10^3/uL (150-450); Red Blood Count 2.38 10^6/uL (4.70-6.10); White Blood Count 12.1 10^3/uL (4.0-11.0)
[2025-06-13 11:41] LABS: Hematocrit 22.5 % (42.0-54.0)
[2025-06-13 11:48] LABS: Anion Gap 15.3; Blood Urea Nitrogen 14.0 mg/dL (7.0-18.0); Calcium 9.4 mg/dL (8.5-10.1); Carbon Dioxide 27.6 mmol/L (21.0-32.0); Chloride 101 mmol/L (98-107); Estimated GFR (African America >60 (>=60 mL/min/1.73m^2); Estimated GFR (Non-African Ame 60 (>=60 mL/min/1.73m^2); Glucose 111 mg/dL (74-106); Potassium 4.9 mmol/L (3.5-5.1); Sodium 139 mmol/L (136-145)
--- NOTE | 2025-06-13 12:06 | CT_ITS ---
The [address] [address] Patient Name: PENNY MCQUEEN MRN: [id number] date: 1960 Sex: M Assigned Patient Location: ER Current Patient Location: ER Accession/Order Number: [id number] Exam Date: 06/13/2025 12:30 Report Date: 06/13/2025 13:24 At the request of: HUGO ROLDAN MD Procedure: CT angio neck CT angio head, CT angio neck 06/13/2025 12:43 PM SIGNS AND SYMPTOMS: ^Diplopia TECHNIQUE: Multi-detector CT angiography axial slices of the head and neck were obtained during intravenous administration of IV contrast material. Sagittal, coronal, and 3-D reconstructions were performed and viewed on a separate workstation. CT was performed with one or more of the following dose reduction techniques: Automated exposure control, adjustment of the mA and/or kV according to patient size, or use of iterative reconstruction technique. Stenoses were measured using the NASCET criteria. COMPARISON: CT brain performed earlier today FINDINGS: CTA HEAD: Posterior inferior cerebellar arteries : patent Basilar artery: patent Superior cerebellar arteries: patent Posterior cerebral arteries: patent Intracranial segments of the internal carotid arteries: Mild calcification without critical stenosis or occlusion. MCA: patent HUMBLE: patent Anterior Communicating artery: patent Posterior Communicating arteries: Not visualized. CTA NECK: Vertebral arteries : patent Common Carotid arteries: patent Internal Carotid arteries: patent No gross central airway mass. No soft tissue swelling or lymphadenopathy. Intraorbital contents appear unremarkable. Visualized lung apices demonstrate no acute findings. Osseous structures demonstrate mild cervical spondylosis. CT/CT angio head IMPRESSION: No acute intracranial pathology. No evidence of critical stenosis, aneurysmal dilatation, dissection or occlusion. Impression dictated by: Miguel Ángel Arevalo Jr., D.O. 06/13/2025 1:24 PM Dictation Location: [facility] Electronically authenticated by: [id number] Y Date: 06/13/2025 13:24
--- NOTE | 2025-06-13 12:06 | CT_ITS ---
The [address] [address] Patient Name: PENNY MCQUEEN MRN: [id number] date: 1960 Sex: M Assigned Patient Location: ER Current Patient Location: ER Accession/Order Number: [id number] Exam Date: 06/13/2025 12:30 Report Date: 06/13/2025 13:24 At the request of: HUGO ROLDAN MD Procedure: CT angio neck CT angio head, CT angio neck 06/13/2025 12:43 PM SIGNS AND SYMPTOMS: ^Diplopia TECHNIQUE: Multi-detector CT angiography axial slices of the head and neck were obtained during intravenous administration of IV contrast material. Sagittal, coronal, and 3-D reconstructions were performed and viewed on a separate workstation. CT was performed with one or more of the following dose reduction techniques: Automated exposure control, adjustment of the mA and/or kV according to patient size, or use of iterative reconstruction technique. Stenoses were measured using the NASCET criteria. COMPARISON: CT brain performed earlier today FINDINGS: CTA HEAD: Posterior inferior cerebellar arteries : patent Basilar artery: patent Superior cerebellar arteries: patent Posterior cerebral arteries: patent Intracranial segments of the internal carotid arteries: Mild calcification without critical stenosis or occlusion. MCA: patent HUMBLE: patent Anterior Communicating artery: patent Posterior Communicating arteries: Not visualized. CTA NECK: Vertebral arteries : patent Common Carotid arteries: patent Internal Carotid arteries: patent No gross central airway mass. No soft tissue swelling or lymphadenopathy. Intraorbital contents appear unremarkable. Visualized lung apices demonstrate no acute findings. Osseous structures demonstrate mild cervical spondylosis. CT/CT angio neck IMPRESSION: No acute intracranial pathology. No evidence of critical stenosis, aneurysmal dilatation, dissection or occlusion. Impression dictated by: Miguel Ángel Arevalo Jr., D.O. 06/13/2025 1:24 PM Dictation Location: [email or web address] Electronically authenticated by: [id number] Y Date: 06/13/2025 13:24
[2025-06-13 12:10] LABS: Band Neutrophils Absolute 0.2 10^3/uL (0.0-0.3); Basophils Abs Manual 0.24 10^3/uL (0.00-0.10); Basophils Percent Manual 2.0 % (0.2-2.0); Blast % Manual 4.0; Blast Absolute Manual 0.48; Eosinophils Absolute Manual 0.00 10^3/uL (0.00-0.70); Eosinophils Percent Manual 0.0 % (0.9-7.0); Lymphocytes Absolute Manual 1.69 10^3/uL (1.20-3.80); Lymphocytes Percent Manual 14.0 % (20.5-60.0); Metamyelocytes Absolute Manual 0.24; Monocytes Absolute Manual 0.96 10^3/uL (0.30-0.80); Monocytes Percent Manual 8.0 % (1.7-12.0); Myelocytes % Manual 1.0; Myelocytes Absolute Manual 0.12; Segmented Neut Absolute Manual 8.10 10^3/uL (1.4-6.5); Segmented Neutrophils % Manual 67.0 (43.0-75.0)
[2025-06-13 12:11] LABS: Anisocytosis 2+
[2025-06-13] MEDS: ASPIRIN 325 MG TABLET PO (14:29)
--- OUTSIDE RECORDS SUMMARY | 2025-06-13 14:53 | XMS_ITS | CCD ---
Author Organization [facility] CliniSyva Care Team Providers Care Practice Assistant Name Role Phone GORDILLO, CHRISTOPHER Unavailable Unavailable GORDILLO, CHRISTOPHER Unavailable Unavailable HAY, MELBA Unavailable Unavailable FURLONG, DEWEY Unavailable Unavailable [place] Unavailable Unavailable GORDILLO, CHRISTOPHER Unavailable Unavailable GORDILLO, [...] Unavailable Furlong DODewey G Primary Care Provider [phone] Furlong DODewey G Primary Care Provider ED, [...] Furlong DO, Dewey G Primary Care Provider Unavailable Primary Care Provider Unavailabl e FURLONG, [...] APOORA Referring Unavailable Rhona Atwood MD Unavailable Martita Hopper MD Unavailable RHONA ATWOOD Attending Unavailable ALESSANDRA STONER Referring Unavailable RHONA ATWOOD Attending Unavailable RHONA ATWOOD Referring Unavailable RHONA ATWOOD Referring Unavailable ARTURO MONTANEZ Attending Unavailable ARTURO MONTANEZ Referring Unavailable RHONA ATWOOD Referring Unavailable RHONA ATWOOD Referring Unavailable Medications Current Medications MedicationDrug Class(es)DatesSig (Normalized)Sig (Original)ascorbic acid 1000 mg oral tablet (3 sources)Vitamin CStart: 98-94-2682oalg 1 tablet by mouth once dailyascorbic acid (Vitamin C) 1,000 mg tablet Take 1 tablet (1,000 mg) by mouth once daily. 03/07/2025 Activeb complex 0.4 mg tablet (2 sources)take 1 tablet by mouth once dailyb complex 0.4 mg tablet Take 1 tablet by mouth once daily. Activecephalexin 500 mg oral capsule (1 source)Cephalosporin AntibacterialStart: 09-12-2024 End: 10-98-9635DROLkpgreq (KEFLEX) 500 mg capsule Take 1 capsule [...] daily. ActiveOJJAARA 100 mg tablet (4 sources)Start: 52-07-3692ZOUIURM 100 mg tablet 10/16/2024 ActiveOjjaara 100 mg tablet tablet (2 sources)Start: 37-76-1086rlns 2 tablets by mouth once dailyOjjaara 100 mg tablet tablet Take 2 tablets (200 mg) by mouth once daily. 10/16/2024 Active Ojjaara 100 MG TABS (17 sources)Start: 57-66-6724Fnrlxnb 100 MG TABS 10/16/2024 Active prochlorperazine 5 mg oral tablet (4 sources)PhenothiazineStart: 95-05-9822hjiezscrvbyforhd (COMPAZINE) 5 mg tablet prn 11/04/2024 Activerosuvastatin calcium 10 mg oral tablet (16 sources)HMG-CoA Reductase InhibitorStart: 89-51-7782iqgo 1 tablet by mouth once dailyrosuvastatin (Crestor) 10 mg tablet Take 1 tablet (10 mg) by mouth once daily. 06/29/2024 Activetriamcinolone acetonide 1 mg/ml topical cream (20 sources)CorticosteroidStart: 70-05-9866jbgdhlzrcwcye (Kenalog) 0.1 % cream Apply to affected area on trunk and extremities EVERY DAY to TWICE DAILY NEEDED 11/30/2024 Active Completed/Discontinued Medications MedicationDrug Class(es)DatesSig (Normalized)Sig (Original)2 ml fentaNYL 0.05 mg/ml injection (1 source)Opioid AgonistStart: 02-20-2025 End: 79-73-4338Tzywglojrkp, PRN, Starting on Tue02/20/25 at 1103, Until Tue02/20/25 at 1114, Intra Procedureferrous sulfate 325 mg oral tablet (2 sources)Start: 03-07-2025 End: 50-62-5599xxak 1 tablet by mouth once dailyferrous sulfate 325 mg (65 mg elemental) tablet Take 1 tablet by mouth once daily. 03/07/2025 03/26/2025 Discontinued (Therapy completed)Start: 53-44-8123ewzr 1 tablet by mouth in the morningferrous sulfate 325 (65 FE) MG tablet Take 1 tablet (325 mg total) by mouth in the morning. 03/07/2025 Activemelatonin 10 mg oral tablet (8 sources)Start: 09-14-2024 End: 17-04-4747orja 1 tablet by mouth once dailymelatonin 10 mg tablet Take 1 tablet by mouth nightly. 09/14/2024 03/07/2025 Discontinued (Therapy completed)2 ml midazolam 1 mg/ml injection (1 source)BenzodiazepineStart: 02-20-2025 End: 88-39-4157Jquwppwvzgf, PRN, Starting on Tue02/20/25 at 1103, Until Tue02/20/25 at 1103, Intra Procedurenystatin 100 unt/mg topical powder (5 sources)Polyene AntifungalStart: 09-14-2024 End: 08-36-1582pjxxylaj (MYCOSTATIN) powder Apply 1 Application topically in the morning and 1 Application before bedtime. 30 g 1 09/14/2024 11/01/2024 Discontinued (Therapy completed) Problems Active Problems Problem ClassificationProblemDateDocumented DateEpisodic/ChronicChronic obstructive pulmonary disease and bronchiectasis (1 source)Chronic obstructive pulmonary disease, unspecified; 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 obstructive pulmonary disease, unspecified]Onset: 06-81-3650Eoajohb Coagulation and hemorrhagic disorders (2 sources)Thrombocytopenia, unspecified; Translations: [Thrombocytopenia, unspecified]Onset: 35-71-1085NabyysvTnbkowfofq and other anemia (20 sources)Pancytopenia; Translations: [Other pancytopenia]Onset: 01-15-2025 96-72-0782QpoevsoUcgulncdms and other anemia (1 source)Other pancytopenia; Translations: [Other pancytopenia (HCC)]Onset: 45-92-7487VjrdyifYadyfrbryr and other anemia (17 sources)Anemia; Translations: [Anemia, unspecified]Onset: 09-08-2024 70-25-3102YlqtgwfpDuwrgnwel of lipid metabolism (4 sources)Hyperlipidemia; Translations: [Hyperlipidemia, unspecified]Onset: 594652-01-4505XpjwogeZgoabziu Injury - Fall (1 source)Fall on same level due to ice and snow, initial encounter; Translations: [FALL ON SAME LEVEL DUE TOICE AND SNOW, INITIAL ENCOUNTER]Onset: 67-83-0131Shdplwjc Injury - Place of occurrence (1 source)Unspecified place in unspecified non-institutional (private) residence as the place of occurrence of the external cause; Translations: [UNSP PLACE IN UNSP NON-INSTITUT (PRIVATE) RESIDENCE PLACE]Onset: 66-07-6912Rijoyhxf of lower limb (17 sources)Displaced spiral fracture of shaft of right tibia, initial encounter for open fracture type I or II; Translations: [Unspecified fracture of shaft of right fibula, subsequent encounter for closed fracture with routine healing] Onset: 50-01-1194VlogxhrkLqaddpqgf of unspecified nature or uncertain behavior (1 source)Myelosclerosis with myeloid otplwwfhqg79-72-3554BijwwwbZpuszsgpp of unspecified nature or uncertain behavior (20 sources)Myelosclerosis with myeloid metaplasia; 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 myeloproliferative disease]Onset: 502032-58-2731KusnewrpOut-Wfjjvfb`s lymphoma (2 sources)Non-Hodgkin lymphoma, unspecified, lymph nodes of inguinal region and lower limb; Translations: [Non-Hodgkin lymphoma, unspecified, intra-abdominal lymph nodes]Onset: 82-11-9759TvxlbioZwtpjlbxzoa deficiencies (2 sources)Unspecified severe protein-calorie malnutrition; Translations: [Unspecified severe protein-calorie malnutrition (HHS-HCC)]Onset: 05-29-2025 ChronicOpen wounds of extremities (1 source)Unspecified open wound, right lower leg, initial encounter; Translations: [Unspecified open wound, right lower leg, initial encounter]Onset: 21-00-5789SjlmwpuyNlysw aftercare (2 sources)Encounter for therapeutic drug level monitoring; Translations: [Encounter for therapeutic drug level monitoring]Onset: 23-73-9621AlqnztmsLeqfr aftercare (2 sources)Other vermin exterminator (current) drug therapy; Translations: [Other vermin exterminator (current) drug therapy]Onset: 93-41-5979XomhefgmWnoif gastrointestinal disorders (1 source)Splenomegaly, not elsewhere classified; Translations: [Splenomegaly, not elsewhere classified]Onset: 34-87-8214RekxtppdNpekk hematologic conditions (20 sources)Myelofibrosis; Translations: [Myelofibrosis]Onset: 02-12-2025 62-42-0043WqbnhznUwnml hematologic conditions (3 sources)Myelofibrosis; Translations: [Myelofibrosis]Onset: 67-07-9854Nkklpdo Other inflammatory condition of skin (1 source)Psoriasis vulgaris; Translations: [PSORIASIS VULGARIS]Onset: 77-26-6539YvydrraRrkeq inflammatory condition of skin (2 sources)Psoriasis; Translations: [Psoriasis, unspecified]Onset: 03-26-2025 37-79-7031QiaeotzTkgjo inflammatory condition of skin (2 sources)Psoriasis, unspecified; Translations: [Psoriasis, unspecified]Onset: 55-11-3492UddmsnlMfvvx lower respiratory disease (2 sources)Other forms of dyspnea; Translations: [Other forms of dyspnea]Onset: 99-97-7003HntqvgcgLwyga screening for suspected conditions (not mental disorders or infectious disease) (2 sources)Radiology result abnormal; Translations: [Abnormal findings on diagnostic imaging of other specified body structures]Onset: 01-15-2025 35-36-5905CrwsfesCittqimz; pneumothorax; pulmonary collapse (11 sources)Pleural effusion; Translations: [Pleural effusion, not elsewhere classified]Onset: 542141-00-5315JhtimwvuQpjixgji codes; unclassified (2 sources)Awaiting organ transplant status; Translations: [Awaiting organ transplant status]Onset: 53-47-0637BxocjqnDvhpudaz codes; unclassified (1 source)Colon cancer screening declined; Translations: [Procedure and treatment not carried out because of patient's decision for unspecified reasons] 45-95-2278MjbpafkwPzpdbvdw codes; unclassified (1 source)Prostate cancer screening declined; Translations: [Procedure and treatment not carried out because of patient's decision for unspecified reasons] 87-27-5167LfukgacdNmycugps codes; unclassified (1 source)Flushing; Translations: [Flushing]72-61-8962TqjhgcmpQeujthcm codes; unclassified (2 sources)Other specified personal risk factors, not elsewhere classified; Translations: [Other specified personal risk factors, not elsewhere classified] Onset: 10-92-2757RmqllfxtDeyfmvmqz-related disorders (18 sources)Nicotine dependence, cigarettes, uncomplicated; Translations: [Cigarette smoker ]Onset: 07-14-2017 Resolved: 869005-81-5565JcnhqzpIsxssyulnsgd (2 sources)Unknown / UNK(Unknown)Onset: 74-67-0324Dquisxrbzahx (1 source)Low Blood CountOnset: 61-35-6486Osaxgheveuvh (1 source)Abnormal Lab ValueOnset: 65-36-8662Psfbymkphvvc (1 source)ReferralOnset: 09-06-2024 Past or Other Problems Problem ClassificationProblemDateDocumented DateEpisodic/ChronicChronic ulcer of skin (9 sources)Ulcer of lower extremity; Translations: [Non-pressure chronic ulcer of unspecified part of right lower leg with fat layer exposed]Onset: 09-10-2024 Resolved: 406700-32-9484FtplwtwVfwsjlaxumwc of device; implant or graft (4 sources)Fracture of tibia or fibula following insertion of orthopedic implant, joint prosthesis, or bone plate, right leg; Translations: [FX TIB/FIB FOL INSRT ORTHO IMPLNT/PROSTH/BONE PLT, RIGHT LEG]Onset: 52-15-0745Yrmrzlti Deficiency and other anemia (3 sources)Anemia, unspecified; Translations: [Anemia, unspecified]Onset: 09-18-0786FqcbkwpmBokvkrkc mellitus without complication (3 sources)Hyperglycemia; Translations: [Hyperglycemia, unspecified]Onset: 862109-05-8878KxuubdapLyvtowxzzanxn (14 sources)Inguinal lymphadenopathy; Translations: [Localized enlarged lymph nodes]Onset: 656787-41-0265MnusdkrwFfwz disorders (15 sources)Mood disordersOnset: 06-25-2024 Resolved: Other connective tissue disease (1 source)Arthrodesis status; Translations: [ARTHRODESIS STATUS]Onset: 29-51-6453CgkzzumkKuckt gastrointestinal disorders (7 sources)Splenomegaly; Translations: [Splenomegaly, not elsewhere classified] Onset: 639951-08-1780GyljazieDxfhm screening for suspected conditions (not mental disorders or infectious disease) (6 sources)Patient encounter status; Translations: [Encounter for screening for cardiovascular disorders]Onset: 646515-45-0050AivdmjnkFvusfpxp codes; unclassified (14 sources)Amnesia; Translations: [Other amnesia]Onset: EpisodicResidual codes; unclassified (2 sources)Other amnesia; Translations: [Other amnesia]Onset: 42-28-5576Nvpywpyp Residual codes; unclassified (2 sources)Flushing; Translations: [Flushing]Onset: 19-54-1059UvgykpojGjkqdlfmp and history of mental health and substance abuse codes (3 sources)Ex-cigarette smoker; Translations: [Personal history of nicotine dependence]Onset: 798731-60-3291LdjapcyiBhsn and subcutaneous tissue infections (10 sources)Cellulitis of right lower limb; Translations: [Cellulitis of right lower limb]Onset: 09-08-2024 Resolved: 571630-62-9212XyqvrgumMvpjrghtkuvq (1 source)Patient encounter -82-9149Jqawbvewifpx (2 sources)Onset: Results Test NameValueInterpretationReference RangeFacilityBlood type and Indirect antibody screen panel (Bld)on 52-71-2014YPS group Nom (Bld)ANoOhioHealth Riverside Methodist HospitalComment on above:Order Comment: The previously reported [...] is no longer being reported.Performed By: #### 63368-7 #### HARRY NOVAK ([id number]) [facility] ([facility]) [address] [place], [place] [address]Xuvii group antibody screen QlNegativeUC HealthComment on above:Order Comment: The previously reported component [...] is no longer being reported.Performed By: #### 89771-6 #### HARRY Bar'RAKAN (15536) [facility] ([facility]) [address] [place], [place] [address]G Ag Ql (Bld)PositiveUC HealthComment on above:Order Comment: The previously reported component [...] is no longer being reported.Performed By: #### 88067-6 #### HARRY NOVAK ([id number]) [facility] ([facility]) [address] [place], [place] [address]I reactive proteinon 48-65-3667EWD [Mass/Vol]0.56 mg/dLNormal <1.00[facility] HospitalComment on above:Performed By: #### 09848-0 #### HARRY NOVAK ([id number]) [facility] ([facility]) [address] [place], [place] [address]XKN W Auto Differential panel (Bld)on 05-77-7154Psfkesiikga distribution width (RBC) [Ratio]24.7 %High11.5-14.5[facility] HospitalComment on above:Order Comment: The previously reported [...] is no longer being reported.Performed By: #### 20879-8 #### HARRY NOVAK ([id number]) [facility] ([facility]) [address] [place], [place] [address]Vcoiftunvi (Bld) [Volume fraction]18.9 %Low41.0-52.0 [facility] HospitalComment on above:Order Comment: The previously reported [...] is no longer being reported.Performed By: #### 63508-1 #### HARRY NOVAK (86708) [facility] ([facility]) [address] [place], [place] [address]Iazfobcupd (Bld) [Mass/Vol]6.6 g/dLLow13.5-17.5[facility] HospitalComment on above:Order Comment: The previously reported [...] is no longer being reported.Performed By: #### 98417-4 #### HARRY NOVAK (53801) [facility] ([facility]) [address] [place], [place] [address]Zsbfwepn granulocytes (Bld) [#/Vol]0.79 x10*3/uLHigh0.00-0.70 [facility] HospitalComment on above:Order Comment: The previously reported [...] is no longer being reported.Performed By: #### 03076-1 #### HARRY NOVAK ([id number]) [facility] ([facility]) [address] [place], [place] [address]Lxurpwpy granulocytes/100 WBC (Bld)7.3 %High0.0-0.9[facility] HospitalComment on above:Order Comment: The previously reported [...] the absolute cell counts (cells/UL).Performed By: #### 14843-2 #### HARRY NOVAK (54700) [facility] ([facility]) [address] [place], [place] [address]IKT (RBC) [Entitic mass]32.5 juCjxzlt04.0-34.0UnAultman Orrville HospitalComment on above:Order Comment: The previously reported [...] is no longer being reported.Performed By: #### 85972-6 #### HARRY NOVAK ([id number]) [facility] ([facility]) [address] [place], [place] [address]LJRW (RBC) [Mass/Vol]34.9 g/yEWgiuxs64.0-36.0[facility] HospitalComment on above:Order Comment: The previously reported [...] is no longer being reported.Performed By: #### 13234-2 #### HARRY NOVAK (37279) [facility] ([facility]) [address] [place] [address]MCV (RBC) [Entitic vol]93 yCDxvnzl92-908LylsuakzubAultman Orrville HospitalComment on above:Order Comment: The previously reported [...] is no longer being reported.Performed By: #### 05036-3 #### HARRY NOVAK ([id number]) [facility] ([facility]) [address] [place] [address]Nucleated RBC/100 WBC (Bld) [Ratio]0.3 /100 WBCsHigh0.0-0.0 [facility] HospitalComment on above:Order Comment: The previously reported [...] is no longer being reported.Performed By: #### 68045-4 #### HARRY NOVAK ([id number]) [facility] ([facility]) [address] [place], [place] [address]Xypqzduiz (Bld) [#/Vol]103 x10*3/xJLlr026-870HyrsiaglscAultman Orrville HospitalComment on above:Order Comment: The previously reported [...] is no longer being reported.Performed By: #### 22761-3 #### HARRY NOVAK (50974) [facility] ([facility]) [address] [place], [place] [address]XBV (Bld) [#/Vol]2.03 x10*6/uLLow4.50-5.90UnAultman Orrville HospitalComment on above:Order Comment: The previously reported [...] is no longer being reported.Performed By: #### 14523-7 #### HARRY NOVAK (93997) [facility] ([facility]) [address] [place], [place] [address]EGJ (Bld) [#/Vol]10.9 x10*3/uLNormal4.4-11.3[facility] HospitalComment on above:Order Comment: The previously reported [...] is no longer being reported.Performed By: #### 96149-1 #### HARRY NOVAK (47620) [facility] ([facility]) [address] [place], [place] [address]TZX DNA RICK+probe Qn (P)on 27-62-6127YUE DNA RESULTNot detectedNormalNot DetectedUnAultman Orrville HospitalComment on above:Order Comment: Reportable Range: 35-10,000,000 [...] the Molecular Diagnostic Laboratory, Department of Pathology, [facility].Performed By: #### 02103-0 #### BRITTNEY Sung ([id number]) [facility] ([facility]) [address] [place], [place] [address]YIUFABEZNAIICVJ DNA, PCR LOG IU/MLNAdena Fayette Medical CenterComment on above:Order Comment: Reportable Range: 35- 10,000,000 [...] the Molecular Diagnostic Laboratory, Department of Pathology, [facility].Result Comment: Not calculatedPerformed By: #### 12400-8 #### BRITTNEY ABBE Sung ([id number]) [facility] ([facility]) [address] [place], [place] [address]KX CHEST WO IV CONTRASTon 77-45-9915MA CHEST WO IV CONTRAST Interpreted By: Ramiro Nolasco, STUDY: CT CHEST WO IV CONTRAST; 05/29/2025 2:16 pm INDICATION: Signs/Symptoms:Allo PBSCT eval. ,D47.1 Chronic myeloproliferative disease (Multi),Z76.82 Awaiting organ transplant status COMPARISON: 09/08/2024 ACCESSION NUMBER(S): [id number] ORDERING CLINICIAN: RHONA ATWOOD TECHNIQUE: Helical data [...] Ramiro Nolasco 05/29/2025 3:56 PM Dictation workstation: [id number] HealthCalcidiolon 42-78-998181971811-tcntawzoyzehcx D3 [Mass/Vol]21 ng/yBYdr51-245 [facility] HospitalComment on above:Order Comment: The previously reported [...] is no longer being reported.Performed By: #### 26375-2 #### HARRY NOVAK ([id number]) [facility] ([place]) [address] [place], [place] [address]Nsptfmtclxq surface inducedon 78-87-3793lTKZ Coag (PPP) [Time]27 sIzveml58-48BeuwxyedbhMiami Valley HospitalComment on above:Order Comment: The previously reported [...] is no longer being reported.Performed By: #### 35472-2 #### HARRY NOVAK (15529) [facility] ([facility]) [address] [place], [place] [address]Chpywuqlibd tissue factor inducedon 20-14-8217EN Coag (PPP) [Time]14.1 sHigh9.8-12.4UnAultman Orrville HospitalComment on above:Performed By: #### 27833-7 #### HARRY NOVAK (95778) [facility] ([facility]) [address] [place], [place] [address]Ltxhmmuadkpzm metabolic 2000 panelon 19-42-5613Joqtxvi BCP dye [Mass/Vol]4.3 g/dLNormal3.4-5.0UnAultman Orrville Hospital Comment on above:Performed By: #### 19139-1 #### HARRY NOVAK (37718) [facility] ([facility]) [address] [place], [place] [address]ZPW [Catalytic activity/Vol]72 U/QIqmnin52-348VqidizjegtAultman Orrville HospitalComment on above:Performed By: #### 68647-9 #### HARRY NOVAK (07449) [facility] ([facility]) [address] [place], [place] [address]YLQ With P-5'-P [Catalytic activity/Vol]15 U/HOgmrbq04-76 [facility] HospitalComment on above:Result Comment: Patients treated with Sulfasalazine may generate falsely decreased results for ALT.Performed By: #### 32815-2 #### HARRY NOVAK (30931) [facility] ([facility]) [address] [place], [place] [address]Mwwdo gap [Moles/Vol]14 mmol/PPzqolk54-99PtkceyqyigAultman Orrville HospitalComment on above:Performed By: #### 26081-7 #### HARRY NOVAK (94366) [facility] ([facility]) [address] [place], [place] [address]BOG With P-5'-P [Catalytic activity/Vol]17 U/LNormal9-39 [facility] HospitalComment on above:Performed By: #### 17927-8 #### HARRY NOVAK (64905) [facility] ([facility]) [address] [place], [place] [address]Ofzrtmgvl [Mass/Vol]0.9 mg/dLNormal0.0-1.2[facility] HospitalComment on above:Performed By: #### 56519-0 #### HARRY NOVAK (83401) [facility] ([facility]) [address] [place], [place] [address]Acfborq [Mass/Vol]9.4 mg/dLNormal8.6-10.3UnAultman Orrville HospitalComment on above:Performed By: #### 74004-5 #### HARRY NOVAK (83796) [facility] ([facility]) [address] [place], [place] [address]Xwokyocg [Moles/Vol]102 mmol/JKjmgvm03-627OjpfygmruvAultman Orrville HospitalComment on above:Performed By: #### 74675-0 #### HARRY NOVAK (48051) [facility] ([facility]) [address] [place], [place] [address]ES3 [Moles/Vol]27 mmol/AOwdeiu99-33PicwrvqrghAultman Orrville HospitalComment on above:Result Comment: Bicarbonate results may be falsely elevated when Lactate Dehydrogenase (LDH) concentrations exceed 2,000 U/L due to a temporary reagent manufacturing issue. If significantly elevated LDH levels are suspected, interpret bicarbonate results with caution, correlate with the patient's clinical status, and consider confirming CO2 values using a blood gas analyzer.Performed By: #### 08080-5 #### HARRY NOVAK (71670) [facility] ([facility]) [address] [place], [place] [address]Mvxareczoi [Mass/Vol]1.14 mg/dLNormal0.50-1.30UnAultman Orrville HospitalComment on above:Performed By: #### 04663-9 #### HARRY NOVAK (00626) [facility] ([facility]) [address] [place], [place] [address]Pyrxycgdwh filtration rate71 mL/min/1.73m*2Normal>60 [facility] HospitalComment on above:Result Comment: Calculations of estimated GFR are performed using the 2020 CKD-EPI Study Refit equation without the race variable for the IDMS-Traceable creatinine methods. https://jasn.asnjournals.org/content/early//ASN.1555308122Qpxapgiyd By: #### 22199-4 #### HARRY NOVAK (32640) [facility] ([facility]) [address] [place], [place] [address]Rrklrzp [Mass/Vol]99 mg/bZGyghfj31-43KtwnfujbifAultman Orrville HospitalComment on above:Performed By: #### 40749-1 #### HARRY NOVAK (15194) [facility] ([facility]) [address] [place], [place] [address]Qxbppchdy [Moles/Vol]4.8 mmol/LNormal3.5-5.3UnAultman Orrville HospitalComment on above:Performed By: #### 47191-7 #### HARRY NOVAK (16483) [facility] ([facility]) [address] [place], [place] [address]Vckqgbe [Mass/Vol]8.4 g/dLHigh6.4-8.2UnAultman Orrville HospitalComment on above:Performed By: #### 77643-3 #### HARRY NOVAK (34673) [facility] ([facility]) [address] [place], [place] [address]Xosset [Moles/Vol]138 mmol/OLvztca030-539EuavfuvnekMiami Valley HospitalComment on above:Performed By: #### 81939-4 #### HARRY NOVAK (45367) [facility] ([facility]) [address] [place], [place] [address]Rzhr nitrogen [Mass/Vol]19 mg/dLNormal6-23[facility] HospitalComment on above:Performed By: #### 02814-1 #### HARRY NOVAK (82380) [facility] ([facility]) [address] [place], [place] [address]Dmvinyzkpuhupqi Ab.IgG avidityon 77-30-1257JJY IgG avidity IA [Ratio]Non-ReactiveNormalNonreactiveUnAultman Orrville HospitalComment on above:Performed By: #### 64248-1 #### HARRY NOVAK (63315) [facility] ([facility]) [address] [place], [place] [address]Owrbo of abuse screen W Reflex confirm panel (U)on 05-29-2025 Amphetamines Screen Ql (U)NegativeNormalPresumptive NegativeMiami Valley HospitalComment on above:Order Comment: Drug screen results are [...] phentermine, phenylpropanolamine, pseudoephedrine, and propranolol.Performed By: #### 70956-5 #### BRITTNEY Sung ([id number]) [facility] ([facility]) [address] [place], [place] [address]Wtswyonjgvpj Screen Ql (U)NegativeNormalPresumptive Negative [facility] HospitalComment on above:Order Comment: Drug screen results are [...] Comment: CUTOFF LEVEL: 200 NG/MLPerformed By: #### 63128-6 #### BRITTNEY Sung ([id number]) [facility] ([facility]) [address] [place], [place] [address]Makgrrimzmfqjpo Ql (U)NegativeNormalPresumptive Negative [facility] HospitalComment on above:Order Comment: Drug screen results are [...] Comment: CUTOFF LEVEL: 200 NG/MLPerformed By: #### 39962-5 #### BRITTNEY Sung ([id number]) [facility] ([facility]) [address] [place] [address]Lbpgwyqxpoioyot Screen Ql (U)NegativeNormalPresumptive NegativeMiami Valley HospitalComment on above:Order Comment: Drug screen results are [...] Comment: CUTOFF LEVEL: 150 NG/MLPerformed By: #### 47893-7 #### BRITTNEY Sung ([id number]) [facility] ([facility]) [address] [place], [place] [address]Pxtehyxafkpy Screen Ql (U)NegativeNormalPresumptive Negative [facility] HospitalComment on above:Order Comment: Drug screen results are [...] Comment: CUTOFF LEVEL: 50 NG/MLPerformed By: #### 13214-8 #### BRITTNEY NOELER L ([id number]) [facility] ([facility]) [address] [place], [place] [address]kmletLOH+Norfentanyl Screen Ql (U)NegativeNormalPresumptive NegativeMiami Valley HospitalComment on above:Order Comment: Drug screen results are [...] Comment: CUTOFF LEVEL: 5 NG/MLPerformed By: #### 78438-7 #### BRITTNEY CLIFTONTZER L ([id number]) [facility] ([facility]) [address] [place], [place] [address]Ujxtmdahg Screen Ql (U)NegativeNormalPresumptive Negative [facility] HospitalComment on above:Order Comment: Drug screen results are [...] Comment: CUTOFF LEVEL: 150 NG/ML The metabolite N-ozbxo-gyxcprplgrlvle (LAAM) is not detected by this method in concentrations that would be found in the urine of patients on LAAM therapy.Performed By: #### 94368-5 #### BRITTNEY Sung (75431) [facility] ([facility]) [address] [place], [place] [address]Zdruzkz Screen Ql (U)NegativeNormalPresumptive Negative [facility] HospitalComment on above:Order Comment: Drug screen results are [...] to Oxycodone Screen, Urine result).Performed By: #### 34290-3 #### BRITTNEY Sung ([id number]) [facility] ([facility]) [address] [place], [place] [address]mvnMBYTLJ+oxyMORphone Screen Ql (U)NegativeNormalPresumptive NegativeMiami Valley HospitalComment on above:Order Comment: Drug screen results are [...] detect both oxycodone and oxymorphone.Performed By: #### 34603-7 #### BRITTNEY Sung ([id number]) [facility] ([facility]) [address] [place], [place] [address]Fimzkbqvawmvz Ql (U)NegativeNormalPresumptive Negative [facility] HospitalComment on above:Order Comment: Drug screen results are [...] has been reported with dextromethorphan.Performed By: #### 45958-8 #### BRITTNEY Sung ([id number]) [facility] ([facility]) [address] [place], [place] [address]RYN DNA RICK+probe Qnon 78-47-9145XVG DNA RESULTNot detected NormalNot DetectedUnAultman Orrville HospitalComment on above: Order Comment: Reportable Range: [...] the Molecular Diagnostic Laboratory, Department of Pathology, [facility].Performed By: #### 21880-3 #### BRITTNEY Sung ([id number]) [facility] [address] [place], [place] [address]IPT PCR PLASMA LOG IU/MLNAdena Fayette Medical CenterComment on above:Order Comment: Reportable Range: 35-100,000,000 IU/mL.The prabhu EBV test is an in vitro nucleic acid amplification dual target assay for the quantitation of Aubree-Maldnoado virus (EBV) DNA in human EDTAplasma on [...] the Molecular Diagnostic Laboratory, Department of Pathology, [facility].Result Comment: Not calculatedPerformed By: #### 13348-0 #### BRITTNEY Sung ([id number]) [facility] ([facility]) [address] [place], [place] [address]PSMLNCF-KLIM VIRUS ANTIBODY PANELon 17-47-3210NTU capsid IgG IA Qn (S)PositiveAbnormalNegativeUnAultman Orrville Hospital Comment on above:Order Comment: EBV INTERPRETATION CHARTPRIMARY ACUTEVCA-IGG: +/-VCA-IGM: +/-EA-IGG: +/-NA-IGG: -LATE ACUTEVCA-IGG: +VCA-IGM: +/-EA-IGG: +/-NA-IGG: +/-RECOVERINGVCA-IGG: +VCA-IGM: -EA-IGG: +NA-IGG: -PREVIOUS INFECTIONVCA-IGG: +VCA-IGM: -EA-IGG: -NA-IGG: +/-Performed By: #### 37222-7 #### BRITTNEY Sung ([id number]) [facility] ([facility]) [address] [place], [place] [address]NCL capsid IgM IA Qn (S)NegativeNormalNegCrystal Clinic Orthopedic CenterComment on above:Order Comment: EBV INTERPRETATION CHARTPRIMARY ACUTEVCA-IGG: +/-VCA-IGM: +/-EA-IGG: +/-NA-IGG: -LATE ACUTEVCA-IGG: +VCA-IGM: +/-EA-IGG: +/-NA-IGG: +/-RECOVERINGVCA-IGG: +VCA- IGM: -EA-IGG: +NA-IGG: -PREVIOUS INFECTIONVCA-IGG: +VCA-IGM: -EA-IGG: -NA-IGG: +/-Performed By: #### 86986-4 #### BRITTNEY Sung ([id number]) [facility] ([facility]) [address] [place], [place] [address]ORQ early IgG Ql (S)PositiveAbnormalNegCrystal Clinic Orthopedic CenterComment on above:Order Comment: EBV INTERPRETATION CHARTPRIMARY ACUTEVCA-IGG: +/-VCA-IGM: +/-EA-IGG: +/-NA-IGG: -LATE ACUTEVCA-IGG: +VCA-IGM: +/-EA-IGG: +/-NA-IGG: +/-RECOVERINGVCA-IGG: +VCA- IGM: -EA-IGG: +NA-IGG: -PREVIOUS INFECTIONVCA-IGG: +VCA-IGM: -EA-IGG: -NA-IGG: +/-Performed By: #### 52036-0 #### BRITTNEY Sung (11031) [facility] ([facility]) [address] [place], [place] [address]ZTJ nuclear Ab Ql (S)PositiveAbnormokNegCrystal Clinic Orthopedic CenterComment on above:Order Comment: EBV INTERPRETATION CHARTPRIMARY ACUTEVCA-IGG: +/-VCA-IGM: +/-EA-IGG: +/-NA-IGG: -LATE ACUTEVCA-IGG: +VCA-IGM: +/-EA-IGG: +/-NA-IGG: +/-RECOVERINGVCA-IGG: +VCA- IGM: -EA-IGG: +NA-IGG: -PREVIOUS INFECTIONVCA-IGG: +VCA-IGM: -EA-IGG: -NA-IGG: +/-Performed By: #### 93362-7 #### BRITTNEY Sung (27585) [facility] ([facility]) [address] [place], [place] [address]Ixgeefqfol 37-58-5874Nvdzvory [Mass/Vol]1260 ng/gGTdqb72-531 [facility] HospitalComment on above:Performed By: #### 76629-6 #### HARRY NOVAK (17695) [facility] ([facility]) [address] [place], [place] [address]MHT 1+2 Ab+HIV1 p24 Agon 35-65-5846MSS 1+2 Ab+HIV1 p24 Ag IA QlNon-ReactiveNormalNonreactiveUnAultman Orrville Hospital Comment on above:Order Comment: HIV Ag/Ab screen is performed using the Siemens ImpactRx HIV Ag/Ab Combo assay whichdetects the presence of HIV p24 antigen as well as antibodies to HIV-1 (Group M and O) and HIV-2.Nolaboratory evidence of HIV infection. If acute HIV infection is suspected, consider testing for HIVRNA by PCR (viral load).Performed By: #### 42713-4 #### HARRY NOVAK (77614) [facility] ([facility]) [address] [place], [place] [address]DPI 1+2 IgG IA Qn (S)on 47-48-8774MHLJTZ SIMPLEX VIRUS 1 IGG 2.8 INDEXHigh<0.9[facility] HospitalComment on above: Order Comment: POTENTIAL FOR CROSS-REACTIVITY BETWEENHSV I AND HSV II EXISTS. Result Comment: NEGATIVE <0.9 EQUIVOCAL >=0.90 <=1.10 POSITIVE >1.10Performed By: #### 90002-7 #### BRITTNEY Sung (82190) [facility] ([facility]) [address] [place], [place] [address]CKCCRT SIMPLEX VIRUS 2 IGG<0.2Normal<0.9[facility] HospitalComment on above:Order Comment: POTENTIAL FOR CROSS- REACTIVITY BETWEENHSV I AND HSV II EXISTS.Result Comment: NEGATIVE <0.9 EQUIVOCAL >=0.90 <=1.10 POSITIVE >1.10Performed By: #### 84906-4 #### BRITTNEY Sung (89741) [facility] ([facility]) [address] [place], [place] [address]Imtidajmt B virus core Abon 75-31-6808GVE core Ab Ql (S) Non-ReactiveNormLakeHealth Beachwood Medical Center Comment on above:Performed By: #### 52800-5 #### HARRY NOVAK (05098) [facility] ([facility]) [address] [place], [place] [address]Smswgiiac B virus core Ab.IgMon 99-76-4157UEO core IgM Ql (S) Non-ReactiveNoMemorial Hospital Comment on above:Result Comment: Results from patients taking biotin supplements or receiving high-dose biotin therapy should be interpreted with caution due to possible interference with this test. Providers may contact their local laboratory for further information.Performed By: #### 35266-1 #### HARRY NOVAK (68473) [facility] ([facility]) [address] [place], [place] [address]Kilbeiblx B virus surface Abon 53-02-8675FFW surface Ab Qn (S)11.2 mIU/mLHigh<10.0[facility] HospitalComment on above:Result Comment: Interpretive Criteria: <10 mIU/mL [...] from an HBV infection. Performed By: #### 06197-3 #### BRITTNEY Sung (77274) [facility] ([facility]) [address] [place], [place] [address]Dlqbkawec B virus surface Agon 23-21-4435CPR surface Ag IA Ql Non-ReactiveNormalNonreactiveUnAultman Orrville Hospital Comment on above:Result Comment: Biotin interference may cause falsely decreased results. Patients taking a Biotin dose of up to 5 mg/day should refrain from taking Biotin for 24 hours before sample collection. Providers may contact their local laboratory for further information.Performed By: #### 63410-6 #### HARRY NOVAK (07941) [facility] ([facility]) [address] [place], [place] [address]Kgqbmvrpm C virus Abon 34-45-6417AIR Ab Ql (S)Non-Reactive NormalNonactiveMiami Valley HospitalComment on above: Result Comment: Results from patients taking biotin supplements or receiving high-dose biotin therapy should be interpreted with caution due to possible interference with this test. Providers may contact their local laboratory for further information.Performed By: #### 69026-8 #### HARRY NOVAK (41069) [facility] ([facility]) [address] [place], [place] [address]Mkyvqufelvz 76-62-2564Ltgrgatdf [Mass/Vol]1.82 mg/dLNormal 1.60-2.40UnAultman Orrville HospitalComment on above:Performed By: #### 96544-6 #### HARRY NOVAK (72758) [facility] ([facility]) [address] [place], [place] [address]Nfssll differential performed Ql (Bld)on 92-41-5707Krln form neutrophils (Bld) [#/Vol]2.94 x10*3/uLHigh0.00-0.70[facility] HospitalComment on above:Performed By: #### 07904-8 #### HARRY NOVAK (16478) [facility] ([facility]) [address] [place], [place] [address]Ozuo form neutrophils/100 WBC (Bld)27.0 %Normal0.0-5.0 [facility] HospitalComment on above:Performed By: #### 34616-5 #### HARRY NOVAK (87686) [facility] ([facility]) [address] [place], [place] [address]Jyiklqqyg (Bld) [#/Vol]0.22 x10*3/uLHigh0.00-0.10[facility] HospitalComment on above:Performed By: #### 73400-6 #### HARRY NOVAK (05545) [facility] ([facility]) [address] [place], [place] [address]Sawpxmfof/100 WBC (Bld)2.0 %Normal0.0-2.0UnAultman Orrville HospitalComment on above:Performed By: #### 52889-6 #### HARRY NOVAK (09363) [facility] ([facility]) [address] [place], [place] [address]Zhcjt Counted Total (Bld) [#]100UC HealthComment on above:Performed By: #### 81244-4 #### HARRY NOVAK (15441) [facility] ([facility]) [address] [place], [place] [address]Duoaymnlly LM Ql (Bld)FewUC HealthComment on above:Performed By: #### 58051-4 #### HARRY NOVAK (94498) [facility] ([facility]) [address] [place], [place] [address]Pgukygwgouv (Bld) [#/Vol]0.00 x10*3/uLNormal0.00-0.70 [facility] HospitalComment on above:Performed By: #### 95113-5 #### HARRY NOVAK (93965) [facility] ([facility]) [address] [place], [place] [address]Eukeutblvgv/100 WBC (Bld)0.0 %Normal0.0-6.0UnAultman Orrville HospitalComment on above:Performed By: #### 19790-8 #### HARRY NOVAK (93335) [facility] ([facility]) [address] [place], [place] [address]Qilpiykeqzt Ql (Bld)MildNormalUniTrumbull Memorial HospitalComment on above:Performed By: #### 48299-7 #### HARRY NOVAK (44538) [facility] ([facility]) [address] [place], [place] [address]Tqvmzszkkhp (Bld) [#/Vol]0.87 x10*3/uLLow1.20-4.80UnAultman Orrville HospitalComment on above:Performed By: #### 25565-5 #### HARRY NOVAK (35677) [facility] ([facility]) [address] [place], [place] [address]Biwenvagrwp/100 WBC (Bld)8.0 %Pfugpu75.0-44.0[facility] HospitalComment on above:Performed By: #### 12069-7 #### HARRY NOVAK (59077) [facility] ([facility]) [address] [place], [place] [address]Hbtacegepqwxiv (Bld) [#/Vol]0.11 x10*3/uLNormal0.00-0.00 [facility] HospitalComment on above:Performed By: #### 06797-2 #### HARRY NOVAK (16150) [facility] ([facility]) [address] [place], [place] [address]Lnnfcewxwwsspw/100 WBC (Bld)1.0 %Normal0.0-0.0UnAultman Orrville HospitalComment on above:Performed By: #### 89562-6 #### HARRY NOVAK (88984) [facility] ([facility]) [address] [place], [place] [address]Eietmnwwt (Bld) [#/Vol]0.11 x10*3/uLNormal0.10-1.00[facility] HospitalComment on above:Performed By: #### 32119-6 #### HARRY NOVAK (95148) [facility] ([facility]) [address] [place], [place] [address]Mqxzfzdfz/100 WBC (Bld)1.0 %Normal2.0-10.0[facility] HospitalComment on above:Performed By: #### 73829-6 #### HARRY NOVAK (55009) [facility] ([facility]) [address] [place], [place] [address]Tagajdcieq (Bld) [#/Vol]0.33 x10*3/uLNormal0.00-0.00 [facility] HospitalComment on above:Performed By: #### 16990-1 #### HARRY NOVAK (33121) [facility] ([facility]) [address] [place], [place] [address]Jdhjkwiuar/100 WBC (Bld)3.0 %Normal0.0-0.0[facility] HospitalComment on above:Performed By: #### 11562-8 #### HARRY NOVAK (32728) [facility] ([facility]) [address] [place], [place] [address]Qipnnfmmqlz (Bld) [#/Vol]9.15 x10*3/uLHigh1.20-7.70[facility] HospitalComment on above:Performed By: #### 30705-5 #### HARRY NOVAK (95280) [facility] ([facility]) [address] [place], [place] [address]Trbtdsghyx LM Ql (Bld)[facility] DiM[facility] Children's HospitalalUniTrumbull Memorial HospitalComment on above:Performed By: #### 58038-9 #### HARRY NOVAK (98947) [facility] ([facility]) [address] [place], [place] [address]MCO morphology finding Nom (Bld)See BelowUC HealthComment on above:Performed By: #### 32909-4 #### HARRY NOVAK (42227) [facility] ([facility]) [address] [place], [place] [address]Hfwzgkltlurn LM Ql (Bld)FewNoOhioHealth Riverside Methodist HospitalComment on above:Performed By: #### 53426-3 #### HARRY NOVAK (85610) [facility] ([facility]) [address] [place], [place] [address]Maqgrcwzq neutrophils (Bld) [#/Vol]6.21 x10*3/uLNormal 1.20-7.00UnAultman Orrville HospitalComment on above:Performed By: #### 93912-1 #### HARRY NOVAK (30572) [facility] ([facility]) [address] [place], [place] [address]Zvqtrrgip neutrophils/100 WBC (Bld)57.0 %Rpwhct59.0-80.0 [facility] HospitalComment on above:Result Comment: Percent differential counts (%) should be interpreted in the context of the absolute cell counts (cells/uL).Performed By: #### 12953-5 #### HARRY NOVAK (28034) [facility] ([facility]) [address] [place], [place] [address]Ulqyyog lymphocytes (Bld) [#/Vol]0.11 x10*3/uLNormal0.00-0.50 [facility] HospitalComment on above:Performed By: #### 03319-2 #### HARRY NOVAK (29569) [facility] ([facility]) [address] [place], [place] [address]Hbhxkog lymphocytes/100 WBC (Bld)1.0 %Normal0.0-2.0UnAultman Orrville HospitalComment on above:Performed By: #### 15956-7 #### HARRY NOVAK (39712) [facility] ([facility]) [address] [place] [address]Ayzvapptktm peptide B [Mass/Vol]on 82-02-4541Rvpnayaglyo peptide B (Bld) [Mass/Vol]81 pg/mLNormal0-99UnAultman Orrville HospitalComment on above:Order Comment: <100 pg/mL - Heart failure uydmwikh487-943 pg/mL - Intermediate probability of acute heart [...] local laboratory for further information.Performed By: #### 65732-0 #### BRITTNEY Sung (69386) [facility] ([facility]) [address] [place] [address]NM Coag (PPP) [Time]on 17-56-2093FHE Coag (PPP) [Relative time]1.3High0.9-1.1[facility] HospitalComment on above:Performed By: #### 26688-6 #### HARRY NOVAK (83566) [facility] ([facility]) [address] [place] [address]RKJZSRDPTMEVN ECHO (TTE) COMPLETEon 63-64-6550EYFNGJEAQGOYV ECHO (TTE) [facility], [address] [place] [address] and TRANSTHORACIC ECHOCARDIOGRAM REPORT Patient Name: PENNY Garcia Physician: [id number] Zeny Marks MD Study Date: 05/29/2025 Ordering Provider: 59304 RHONA ATWOOD MRN/PID: [id number] Fellow: Nurse: Tootie Erwin RN Date of /Age: 3 1960 [employer] Assistant: Brittney lynch RDCS Gender assigned at M Additional Staff: : Height: 172.72 cm Admit Date: Weight: 70.31 kg Admission Status: Outpatient BSA / BMI: 1.83 m2 / 23.57 kg/m2 Blood Pressure: 125/55 mmHg Department Location: [facility] Non Invasive Study Type: TRANSTHORACIC ECHO (TTE) COMPLETE Diagnosis/ICD: Encounter for monitoring cardiotoxic drug therapy-Z51.81 Indication: Allo PBSCT eval CPT Code: Echo Complete w Full Doppler-08879 Patient History: Pertinent History: HLD, Myelofibrosis, pleural [...] LA Area A2C: 19.9 cm2 LA [employer] A4C: 5.6 cm LA [employer] A2C: 5.7 cm LA Volume Index: 36.0 [...] PulmV S/D Paul: 1.20 (more content not included)...UC HealthToxoplasma gondii Ab.IgGon 05-29-2025T. gondii IgG Qn (S)Non-ReactiveNormLakeHealth Beachwood Medical Center Comment on above:Performed By: #### 87798-1 #### HARRY NOVAK (72471) [facility] ([facility]) [address] [place], [place] [address]Dyhnxfmoq pallidum Ab.IgG+IgMon 05-29-2025T. pallidum IgG+IgM IA Ql (S)Non-ReactiveNormLakeHealth Beachwood Medical CenterComment on above:Result Comment: No significant level of Treponema pallidum antibody detected. Repeat testing in 2 to 4 weeks may be considered if early infection or incubating syphilis infection is suspected.Performed By: #### 80869-4 #### BRITTNEY Sung (17141) [facility] ([facility] [address] [place], [place] [address]Petptlnq I.cardiac panelon 65-17-0780Okjsnsvd I.cardiac panel High sensitivity method6 ng/LNormal0-53[facility] HospitalComment on above:Order Comment: The previously reported [...] is no longer being reported.Performed By: #### 12978-7 #### HARRY NOVAK (05666) [facility] ([facility]) [address] [place], [place] [address]Vsevqbo 65-37-9627Molsm [Mass/Vol]8.5 mg/dLHigh4.0-7.5 [facility] HospitalComment on above:Result Comment: Venipuncture immediately after or during the administration of Metamizole may lead to falsely low results. Testing should be performed immediately prior to Metamizole dosing.Performed By: #### 16689-0 #### HARRY NOVAK (51350) [facility] ([facility]) [address] [place], [place] [address]RTY IgG IA Ql (S)on 50-65-3114GZBXFHFFE ZOSTER IGG INDEX1.9 AIHigh<=0.8UnAultman Orrville HospitalComment on above:Order Comment: NEGATIVE: No IgG [...] demonstrate alteredresults in serological assays.Performed By: #### 10202-7 #### BRITTNEY Sung (33255) [facility] ([facility]) [address] [place], [place] [address]Vrcwbdgav zoster virus Ab.IgGon 60-53-0486UIF IgG IA Ql (S) PositiveAbnormalNegativeMiami Valley HospitalComment on above:Order Comment: NEGATIVE: No IgG [...] demonstrate alteredresults in serological assays.Performed By: #### 36562-1 #### BRITTNEY Sung (97263) [facility] ([facility]) [address] [place], [place] [address]MKYBXV HLA TYPEon 61-83-0305IIV RESULTSSee AttachedTrinity Health SystemComment on above:Order Comment: Test performed at:[facility] LaboratorySaint Alphonsus Eagle, [address] [place], [place] [address]Performed By: #### 20843-5 #### HARRY NOVAK (30056) [facility] ([place]) [address] [place], [place] [address]JLY-R AND B AND C (class I) typing panelNoOhioHealth Riverside Methodist HospitalComment on above:Order Comment: Test performed at:[facility] LaboratorySaint [facility]ons[facility], [facility] [address] [place] [address] Performed By: #### 54507-3 #### HARRY NOVAK (91252) [facility] ([facility]) [address] [place], [place] [address]IMM-JA3 Ql (Bld/Tiss)UC HealthComment on above:Order Comment: Test performed at:[facility] Immunogenetics LaboratorySarah [facility], [address] [place] [address]Eklwtmfkh By: #### 82102-8 #### HARRY NOVAK (48173) [facility] ([facility]) [address] [place], [place] [address]ZTK-HKH7 High resolution Nom (Bld/Tiss)UC HealthComment on above:Order Comment: Test performed at:[facility]ikaSt[facility], [address] [place] [address] Performed By: #### 57170-8 #### HARRY NOVAK (31589) [facility] ([place]) [address] [place], [place] [address]LNA-UTP6 High resolution Nom (Bld/Tiss)UC HealthComment on above:Order Comment: Test performed at:[facility] Immunogenetics LaboratoryW.DipikaSt. [facility], [address] [place], [place] [address]T[address]ay[address] [place] [address] Performed By: #### 68627-2 #### HARRY NOVAK (71945) [facility] ([place]) [address] [place], [place] [address]PPQYHJIZ HANDLINGon 23-51-3673VOIYUCNE HANDLINGSpecimen StoredNormalUniTrumbull Memorial HospitalComment on above:Order Comment: Test performed at:[facility]ipikaSt[facility], [address] [place] [id number] performed at:[facility] LaboratoryDipikaSt. [facility], [address] [place] [id number] By: #### 60717-2 #### HARRY NOVAK ([id number]) [facility] ([place]) [address] [place], [place] [address]Fvubyymkfutpizgw 95-30-0893Knicsxfialjguf (EPO) Cr1199 mU/mL High4 - 27 mU/mLGreene Memorial HospitalComment on above:INTERPRETIVE INFORMATION: Erythropoietin Normal serum [...] benefit from therapy with recombinant EPO (NEJ 322:3286-1105,1989). Performed By: [address] [place] [id number] Medical Pathologist: Fredrick Barnes MD, PhD CLIA Number: [id number] Erythropoietin (EPO) Qnon 17-97-8362Henvpfndatlrxz and review of laboratory resultsAbnoalUniLutheran HospitalBlood type and Indirect antibody screen panel (Bld)on 25-12-8798TCZ group Nom (Bld)AUnProMedica Defiance Regional HospitalBlmadelia community hospital group antibody screen Ql NegativeUnPomerene Hospital Ag Ql (Bld)PositiveUnProMedica Defiance Regional HospitalUnProMedica Defiance Regional HospitalAB group Nom (Bld)A NormalMiami Valley HospitalComment on above:Performed By: #### 39783-2 #### BRITTNEY Sung ([id number]) [facility] ([facility]) [address] [place], [place] [address]Gmlir group antibody screen QlNegativeNoOhioHealth Riverside Methodist HospitalComment on above:Performed By: #### 60656-4 #### BRITTNEY Sung ([id number]) [facility] ([facility]) [address] [place], [place] [address]D Ag Ql (Bld)PositiveUC HealthComment on above:Performed By: #### 07828-0 #### BRITTNEY Sung ([id number]) [facility] ([facility]) [address] [place], [place] [address]YMQ W Auto Differential panel (Bld)on 37-59-2950Tghzksphcjo distribution width (RBC) [Ratio]27.9 %High11.5 - 14.5 %[facility] HospitalHematocrit (Bld) [Volume fraction]22.4 %Low41.0 - 52.0 %[facility] HospitalHemoglobin (Bld) [Mass/Vol]7.5 g/dLLow13.5 - 17.5 g/dL [facility] HospitalImsaint john's breech [facility] center granulocytes (Bld) [#/Vol]0.64 10*3/uL [facility] granulocytes/100 WBC (Bld)8.1 %High0.0 - 0.9 %[facility] HospitalComcovenant medical center on above:Immature Granulocyte Count (IG) includes promyelocytes, myelocytes and metamyelocytes but does not i nclude bands. Percent differential counts (%) should be interpreted in the context of the absolute cell counts (cells/UL).Interpretation and review of laboratory resultsAbnormalUniversity Hospitals of ClevelandMCH (RBC) [Entitic mass]31.1 pg26.0 - 34.0 pgGreene Memorial HospitalMCHC (RBC) [Mass/Vol] 33.5 g/dL32.0 - 36.0 g/dLBucyrus Community HospitalV (RBC) [Entitic vol]93 fL80 - 100 fLUniKettering Health SpringfieldNucleated RBC/100 WBC (Bld) [Ratio]0.4 %[facility] VA Medical CenterPlatelets (Bld) [#/Vol]177 10*3/[facility] Memorial HospitalRBC (Bld) [#/Vol]2.41 10*6/[facility]iffin HospitalWBC (Bld) [#/Vol]7.9 10*3/[facility] Memorial HospitalThe previously reported component Neutrophils % is no [...] component Absolute Basophils is no longer being reported.[facility] HospitalUnProMedica Defiance Regional HospitalErythrocyte distribution width (RBC) [Ratio]27.9 %High11.5-14.5[facility] Valley HospitalComment on above:Order Comment: The previously reported [...] is no longer being reported.Performed By: #### 45144-1 #### HARRY NOVAK ([id number]) [facility] ([place]) [address] [place], [place] [address]Abdkhpqaxa (Bld) [Volume fraction]22.4 %Low41.0-52.0 [facility] HospitalComment on above:Order Comment: The previously reported [...] is no longer being reported.Performed By: #### 81437-1 #### HARRY NOVAK (30844) [facility] ([facility]) [address] [place], [place] [address]Xymftziedw (Bld) [Mass/Vol]7.5 g/dLLow13.5-17.5UnAultman Orrville HospitalComment on above:Order Comment: The previously reported [...] is no longer being reported.Performed By: #### 01751-0 #### HARRY NOVAK (18297) [facility] ([place]) [address] [place], [place] [address]Xzvearzp granulocytes (Bld) [#/Vol]0.64 x10*3/uLNormal 0.00-0.70UnAultman Orrville HospitalComment on above:Order Comment: The previously reported [...] is no longer being reported.Performed By: #### 90273-2 #### HARRY NOVAK (09985) [facility] ([place]) [address] [place], [place] [address]Fryjunue granulocytes/100 WBC (Bld)8.1 %High0.0-0.9[facility] Valley HospitalComment on above:Order Comment: The previously reported [...] the absolute cell counts (cells/UL).Performed By: #### 75526-6 #### HARRY NOVAK (69280) [facility] ([place]) [address] [place], [place] [address]HEA (RBC) [Entitic mass]31.1 fsHfjpaa01.0-34.0Mi[facility] Valley HospitalComment on above:Order Comment: The previously reported [...] is no longer being reported.Performed By: #### 39546-6 #### HARRY NOVAK (89860) [facility] ([facility]) [address] [place] [address]MCHC (RBC) [Mass/Vol]33.5 g/qADdtvcj39.0-36.0[facility] HospitalComment on above:Order Comment: The previously reported [...] is no longer being reported.Performed By: #### 13476-3 #### HARRY NOVAK (79723) [facility] ([place]) [address] [place], [place] [address]YNW (RBC) [Entitic vol]93 kGDnxcbj37-782XbeoiaycakAultman Orrville HospitalComment on above:Order Comment: The previously reported [...] is no longer being reported.Performed By: #### 71570-2 #### HARRY NOVAK (41309) [facility] ([place]) [address] [place], [place] [address]Odzxmrtgs RBC/100 WBC (Bld) [Ratio]0.4 /100 WBCsHigh0.0-0.0 [facility] HospitalComment on above:Order Comment: The previously reported [...] is no longer being reported.Performed By: #### 57229-0 #### HARRY NOVAK (40256) [facility] ([place]) [address] [place], [place] [address]Qzaahcamp (Bld) [#/Vol]177 x10*3/aMOkharo778-794MygujyqokpAultman Orrville HospitalComment on above:Order Comment: The previously reported [...] is no longer being reported.Performed By: #### 56781-4 #### HARRY NOVAK (74018) [facility] ([place]) [address] [place], [place] [address]SDZ (Bld) [#/Vol]2.41 x10*6/uLLow4.50-5.90UnAultman Orrville HospitalComment on above:Order Comment: The previously reported [...] is no longer being reported.Performed By: #### 99349-0 #### HARRY NOVAK (75820) [facility] ([place]) [address] [place], [place] [address]WFN (Bld) [#/Vol]7.9 x10*3/uLNormal4.4-11.3UnAultman Orrville HospitalComment on above:Order Comment: The previously reported [...] is no longer being reported.Performed By: #### 44863-3 #### HARRY NOVAK ([id number]) [facility] ([place]) [address] [place], [place] [address]Jpvzdrmedabqw metabolic 2000 panelon 34-47-6522Gsgygqg BCP dye [Mass/Vol]4.9 g/dL3.4 - 5.0 g/dLUnProMedica Defiance Regional HospitalALP [Catalytic activity/Vol]70 U/L33 - 136 U/[facility] HospitalALT With P-5'-P [Catalytic activity/Vol]19 U/L10 - 52 U/[facility]uffton HospitalComment on above:Patients treated with Sulfasalazine may generate falsely decreased results for ALT.Anion gap [Moles/Vol]12 mmol/L10 - 20 mmol/L [facility] HospitalAST With P-5'-P [Catalytic activity/Vol]20 U/L9 - 39 U/[facility] HospitalBilirubin [Mass/Vol]1.1 mg/dL0.0 - 1.2 mg/dLUnProMedica Defiance Regional HospitalCalcium [Mass/Vol]9.7 mg/dL8.6 - 10.3 mg/dLUnProMedica Defiance Regional HospitalChloride [Moles/Vol]99 mmol/L98 - 107 mmol/[facility] HospitalCO2 [Moles/Vol]28 mmol/L21 - 32 mmol/L [facility] HospitalCreatinine [Mass/Vol]1.08 mg/dL0.50 - 1.30 mg/dLUnProMedica Defiance Regional HospitalGFR/1.73 sq M.predicted among non-blacks MDRD (S/P/Bld) [Vol rate/Area]76 mL/min/{1.73_m2}- PINFUniKettering Health SpringfieldComment on above:Calculations of estimated GFR are performed using the 2020 CKD-EPI Study Refit equation without therace variable for the IDMS- Traceable creatinine methods. https://jasn.asnjournals.org/content//ASN.4378119771 Glucose [Mass/Vol]99 mg/dL74 - 99 mg/dLUnProMedica Defiance Regional Hospital Interpretation and review of laboratory resultsAbnormalUniKettering Health SpringfieldPotassium [Moles/Vol]5.0 mmol/L3.5 - 5.3 mmol/[facility] HospitalProtein [Mass/Vol]8.8 g/dLHigh6.4 - 8.2 g/dLUnProMedica Defiance Regional HospitalSodium [Moles/Vol]134 mmol/CTgf705 - 145 mmol/[facility] HospitalUrea nitrogen [Mass/Vol]16 mg/dL6 - 23 mg/dLUnProMedica Defiance Regional HospitalUnProMedica Defiance Regional HospitalAlbumin BCP dye [Mass/Vol]4.9 g/dL Normal3.4-5.0UnAultman Orrville HospitalComment on above: Performed By: #### 01422-2 #### HARRY NOVAK (47541) [facility] ([place]) [address] [place], [place] [address]TET [Catalytic activity/Vol]70 U/AMhiqdf76-900DsilmjjgzyAultman Orrville HospitalComment on above:Performed By: #### 18741-1 #### HARRY NOVAK (63437) [facility] ([place]) [address] [place], [place] [address]QNX With P-5'-P [Catalytic activity/Vol]19 U/HGvhpay21-98 [facility] HospitalComment on above:Result Comment: Patients treated with Sulfasalazine may generate falsely decreased results for ALT.Performed By: #### 08148-1 #### HARRY NOVAK (88829) [facility] ([place]) [address] [place], [place] [address]Dmlan gap [Moles/Vol]12 mmol/VLorckf98-26NkgkqoeozyAultman Orrville HospitalComment on above:Performed By: #### 07061-9 #### HARRY NOVAK (35929) [facility] ([place]) [address] [place], [place] [address]NOB With P-5'-P [Catalytic activity/Vol]20 U/LNormal9-39 [facility] HospitalComment on above:Performed By: #### 57369-1 #### HARRY NOVAK (52469) [facility] ([place]) [address] [place], [place] [address]Sfvgkgtpc [Mass/Vol]1.1 mg/dLNormal0.0-1.2UnAultman Orrville HospitalComment on above:Performed By: #### 86202-3 #### HARRY NOVAK (30897) [facility] ([place]) [address] [place], [place] [address]Nqvndlc [Mass/Vol]9.7 mg/dLNormal8.6-10.3UnAultman Orrville HospitalComment on above:Performed By: #### 68576-6 #### HARRY O'RAKAN (71589) [facility] ([place]) [address] [place], [place] [address]Jxozpbxp [Moles/Vol]99 mmol/IZhplxz30-593AfblwyhjymAultman Orrville HospitalComment on above:Performed By: #### 65450-0 #### HARRY O'RAKAN (83544) [facility] ([place]) [address] [place], [place] [address]GC3 [Moles/Vol]28 mmol/YVawrrg43-64UmkfhhketoAultman Orrville HospitalComment on above:Performed By: #### 51743-9 #### HARRY O'RAKAN (82424) [facility] ([place]) [address] [place], [place] [address]Czhzriufui [Mass/Vol]1.08 mg/dLNormal0.50-1.30UnAultman Orrville HospitalComment on above:Performed By: #### 58147-6 #### HARRY O'RAKAN (98987) [facility] ([place]) [address] [place], [place] [address]Nbifzoefbc filtration rate76 mL/min/1.73m*2Normal>60 [facility] HospitalComment on above:Result Comment: Calculations of estimated GFR are performed using the 2020 CKD-EPI Study Refit equation without the race variable for the IDMS-Traceable creatinine methods. https://jasn.asnjournals.org/content/early//ASN.2108665303Hhlqvdoap By: #### 69765-3 #### HARRY O'RAKAN (56765) [facility] ([place]) [address] [place], [place] [address]Nexisur [Mass/Vol]99 mg/oPJqwsfb72-48RgbtmenuouMiami Valley HospitalComment on above:Performed By: #### 10174-2 #### HARRY O'RAKAN (57460) [facility] ([place]) [address] [place], [place] [address]Lhgfjhwsk [Moles/Vol]5.0 mmol/LNormal3.5-5.3[facility] HospitalComment on above:Performed By: #### 84476-5 #### HARRY NOVAK (94527) [facility] ([place]) [address] [place], [place] [address]Pjqgtmy [Mass/Vol]8.8 g/dLHigh6.4-8.2UnAultman Orrville HospitalComment on above:Performed By: #### 98351-2 #### HARRY NOVAK (04856) [facility] ([place]) [address] [place], [place] [address]Omrqxw [Moles/Vol]134 mmol/PXik756-847OlhuulxzxcAultman Orrville HospitalComment on above:Performed By: #### 13417-5 #### HARRY NOVAK ([id number]) [facility] ([place]) [address] [place], [place] [address]Jdxu nitrogen [Mass/Vol]16 mg/dLNormal6-23UnAultman Orrville HospitalComment on above:Performed By: #### 34500-8 #### HARRY NOVAK (42415) [facility] ([place]) [address] [place], [place] [address]MWY CLASS I + II VERIFICATION TYPINGon 08-22-8627EMQ CLASS I + II VERIFICATION TYPINGUC Health Comment on above:Order Comment: Test performed at:[facility] Immunogenetics LaboratoryOSt. [facility], [address]th [address] [place], [place] [address]Xofasllnd By: #### 80318-5 #### HARRY NOVAK (36164) [facility] ([place]) [address] [place], [place] [address]DMG RESULTSSee AttachedUC HealthComment on above:Order Comment: Test performed at:[facility] ClevelandHistocompatibility and Immunogenetics Laboratory.Sarah [facility], [address]th [address] [place], [place] [address]Cbttqguvu By: #### 04579-8 #### HARRY NOVAK (58636) [facility] ([place]) [address] [place] [address]Erythropoietinon 77-10-0233Ybjrvspwcnmkic (EPO) Ua8699 mU/mL [address] StreetComment on above:Result Comment: INTERPRETIVE INFORMATION: Erythropoietin [...] benefit from therapy with recombinant EPO (NEJM 322:0476-7743,1989). Performed By: [address] [place] [address] Medical Pathologist: Fredrick Barnes MD, PhD CLIA Number: [id number] By: #### 15499-7 #### SERGIO SHAAN RIOJAS) ([id number]) [address] [place], [place] [address]Imhgavbojo 90-42-8842Duohtfck [Mass/Vol]1278 ng/zWKgrp84 - 300 ng/mLGreene Memorial HospitalFerritin [Mass/Vol]1278 ng/mLHigh 20-300Mi[facility] HospitalComment on above:Performed By: #### 2276-4 #### BRITTNEY Sung (07403) [facility] ([facility]) [address] [place], [place] [address]Ixkelspp [Mass/Vol]on 05-44-3263Ihtpvkiatubolz and review of laboratory resultsAbMadison HealthUnProMedica Defiance Regional HospitalHLA DNA TYPE PANELon 99-43-2669PZS RESULTSSee [facility] Medical CenterComment on above:Order Comment: Test performed at: [facility]ibility [facility] Immunogenetics Laboratory [facility], 6th Floor [address] [place], [place] [address]Performed By: #### HLADNA #### JONATHAN PERRY S (55625) [facility] ([facility]) [address] [place], [place] [address]Order Comment: Test performed at:[facility] HospitalHistocomuniversity of louisville hospitalbility and Immunogenetics LaboratoryDipikaSt. Luke'S [facility]ampa [facility], [address]th [address]ib[address] [place] [id number] By: #### 39528-1 #### HARRY NOVAK (87725) [facility] ([place]) [address] [place] [address]LRR-E AND B AND C (class I) typing panelNoOhioHealth Riverside Methodist HospitalComment on above:Order Comment: Test performed at: [facility]ocompatibility and Immunogenetics Laboratory [facility], 6th Floor [address] [place], [place] [address]Performed By: #### HLADNA #### JONATHANJANNIE WELLERORLANDO S (96058) [facility] ([facility]) [address] [place], [place] [address]HLA-DP2 Ql (Bld/Tiss)UC HealthComment on above:Order Comment: Test performed at: [facility] Histocompatibility and Immunogenetics Laboratory Anca [facility], 6th Floor [address] [place] [id number] By: #### HLADNA #### JONATHAN PERRY S (53843) [facility] ([facility]) [address] [place], [place] [address]GAZ-LSG9 High resolution Nom (Bld/Tiss)UC HealthComment on above:Order Comment: Test performed at: [facility]ibility and Immunogenetics Laboratory DipikaSt. [facility], 6th Floor [address] [place] [id number] By: #### HLADNA #### JONATHAN PERRY S (65319) [facility] ([facility]) [address] [place], [place] [address]KDF-AOI4 High resolution Nom (Bld/Tiss)UC HealthComment on above:Order Comment: Test performed at: [facility]ibility and Immunogenetics Laboratory DipikaSt. [facility], 6th Floor [address] [place], [place] [address]Ezovfgvka By: #### HLADNA #### JONATHAN PERRY S (06371) [facility] ([facility]) [address] [place], [place] [address]YWG HR TYPE, BUCCALon 17-96-8344PGY RESULTSFor collection only.UC HealthComment on above:Order Comment: Test performed at: [facility] Histocompatibility and Immunogenetics Laboratory DipikaSt. [facility], 6th Floor [address] [place], [place] [address]Tpeigapyx By: #### HLAHB #### JONATHAN PERRY S (13598) [facility] ([facility]) [address] [place], [place] [address]IWN-O AND B AND C (class I) typing panelNormalUniTrumbull Memorial HospitalComment on above:Order Comment: Test performed at: [facility]ocompatibility and Immunogenetics Laboratory DipikaSt. [facility], 6th Floor [address] [place] [id number] By: #### HLAHB #### JONATHAN WELLERSPAN S (80492) [facility] ([place]) [address] [place], [place] [address]AXQ-SG6 Ql (Bld/Tiss)UC HealthComment on above:Order Comment: Test performed at: [facility]ibility and Immunogenetics Laboratory Anca [facility], 6th Floor [address] [place] [id number] By: #### HLAHB #### JONATHAN CORBETTAN S (00772) [facility] ([facility]) [address] [place] [address]TAG-SIX1 High resolution Nom (Bld/Tiss)UC HealthComment on above:Order Comment: Test performed at: [facility] Histocompatibility and Immunogenetics Laboratory Anca [facility], [address]th Floor [address] [place], [place] [address]Performed By: #### HLAHB #### JONATHAN WELLERSPAN S (44266) [facility] ([facility]) [address] [place] [address]CKT-YPJ5 High resolution Nom (Bld/Tiss)UC HealthComment on above:Order Comment: Test performed at: [facility]ibility and Immunogenetics Laboratory OwenSarah [facility], 6th Floor [address] [place] [id number] By: #### HLAHB #### JONATHAN WELLERSPAN S (60672) [facility] ([facility]) [address] [place] [address]YVO TRANSPLANT ANTIBODY PANELon 14-05-9768WFJ-A+B+C (class I) Ab (S)UC HealthComment on above:Order Comment: Test performed at:[facility] HospitalHistocompatibility and Immunogenetics LaboratoryAnca [facility], [address]th [address] [place] [phone] By: #### 17640-7 #### HARRY NOVAK (65542) [facility] ([place]) [address] [place], [place] [address]DXW-PC+DQ+DR (class II) Ab (S)NormalUnAultman Orrville HospitalComment on above:Order Comment: Test performed at:[facility] HospitalHistocompatibility and Immunogenetics LaboratorySaint [facility], [facility] Tyq[address] [place] [address] Performed By: #### 63054-3 #### HARRY NOVAK (50008) [facility] ([place]) [address] [place], [place] [address]RIZ Lactate to pyruvate reaction [Catalytic activity/Vol]on 81-98-0980Cpoxxrndgpdqka and review of laboratory resultsAbnoProtestant Deaconess HospitalUnProMedica Defiance Regional HospitalLactate dehydrogenaseon 11-07-5431YUJ Lactate to pyruvate reaction [Catalytic activity/Vol]669 U/[facility]84 - 246 U/[facility]uff[facility] HospitalLD Lactate to pyruvate reaction [Catalytic activity/Vol]669 U/YOckm46-231KjciercuktMiami Valley HospitalComment on above:Performed By: #### 41684-0 #### HARRY NOVAK (49379) [facility] ([place]) [address] [place], [place] [address]Xgynyx differential performed Ql (Bld)on 81-70-7355Qjzs form neutrophils (Bld) [#/Vol]1.42 x10*3/uLHigh0.00-0.70UnAultman Orrville HospitalComment on above:Performed By: #### 48273-2 #### HARRY NOVAK (69269) [facility] ([place]) [address] [place], [place] [address]Hpcv form neutrophils/100 WBC (Bld)18.0 %Normal0.0-5.0 [facility] HospitalComment on above:Performed By: #### 55813-3 #### HARRY NOVAK (85140) [facility] ([place]) [address] [place], [place] [address]Ppovxvzfo (Bld) [#/Vol]0.16 x10*3/uLHigh0.00-0.10[facility] HospitalComment on above:Performed By: #### 92452-6 #### HARRY NOVAK (72070) [facility] ([place]) [address] [place], [place] [address]Ujhfoncrl/100 WBC (Bld)2.0 %Normal0.0-2.0UnAultman Orrville HospitalComment on above:Performed By: #### 43341-7 #### HARRY NOVAK (50744) [facility] ([place]) [address] [place], [place] [address]Citugl Manual cnt (Bld) [#/Vol]0.40 x10*3/uLNormal0.00-0.00 [facility] HospitalComment on above:Result Comment: This is an appended report. These results have been appended to a previously final verified report.Performed By: #### 84809-8 #### HARRY NOVAK (55020) [facility] ([place]) [address] [place], [place] [address]Bdfxlr/100 WBC (Bld)5.0 %Normal0.0-0.0[facility] HospitalComment on above:Result Comment: This is an appended report. These results have been appended to a previously final verified report. Performed By: #### 80873-8 #### HARRY NOVAK (72118) [facility] ([place]) [address] [place], [place] [address]Fyzmh Counted Total (Bld) [#]100UC HealthComment on above:Performed By: #### 71087-3 #### HARRY NOVAK (03912) [facility] ([place]) [address] [place], [place] [address]Wtuzyewrmk LM Ql (Bld)FewNoOhioHealth Riverside Methodist HospitalComment on above:Performed By: #### 58953-6 #### HARRY NOVAK (28773) [facility] ([place]) [address] [place], [place] [address]Bqqmisyxodl (Bld) [#/Vol]0.08 x10*3/uLNormal0.00-0.70 [facility] HospitalComment on above:Performed By: #### 53075-8 #### HARRY NOVAK (66847) [facility] ([place]) [address] [place], [place] [address]Drmvwgdihtj/100 WBC (Bld)1.0 %Normal0.0-6.0UnAultman Orrville HospitalComment on above:Performed By: #### 82674-6 #### HARRY NOVAK (73757) [facility] ([place]) [address] [place], [place] [address]Xuzvbaumwyg (Bld) [#/Vol]1.19 x10*3/uLLow1.20-4.80UnAultman Orrville HospitalComment on above:Result Comment: Corrected result: Previously reported as 1.58 x10*3/uL (reference range: 1.20-4.80 x 10*3/uL) on 03/26/2025 at 1656 EDT.Performed By: #### 94738-4 #### HARRY NOVAK (38545) [facility] ([place]) [address] [place], [place] [address]Yrsnnddpdsf/100 WBC (Bld)15.0 %Rfyiea48.0-44.0UnAultman Orrville HospitalComment on above:Result Comment: Corrected result: Previously reported as 20.0 % (reference range: 13.0-44.0 %) on 03/26/2025 at 1656 EDT.Performed By: #### 80482-4 #### HARRY NOVAK (99741) [facility] ([place]) [address] [place], [place] [address]Fekicoeutbyeca (Bld) [#/Vol]0.32 x10*3/uLNormal0.00-0.00 [facility] HospitalComment on above:Result Comment: Corrected result: Previously reported as 0.16 x10*3/uL (reference range: 0.00- 0.00 x10*3/uL) on 03/26/2025 at 1656 EDT.Performed By: #### 45609-9 #### HARRY NOVAK (58589) [facility] ([place]) [address] [place], [place] [address]Vbqludtewasmpq/100 WBC (Bld)4.0 %Normal0.0-0.0[facility] HospitalComment on above:Result Comment: Corrected result: Previously reported as 2.0 % (reference range: 0.0-0.0 %) on 03/26/2025 at 1656 EDT.Performed By: #### 76167-2 #### HARRY NOVAK (72166) [facility] ([place]) [address] [place], [place] [address]Uzxhlyzvt (Bld) [#/Vol]0.40 x10*3/uLNormal0.10-1.00UnAultman Orrville HospitalComment on above:Performed By: #### 13006-9 #### HARRY NOVAK (30787) [facility] ([place]) [address] [place], [place] [address]Xlsnoecag/100 WBC (Bld)5.0 %Normal2.0-10.0UnAultman Orrville HospitalComment on above:Performed By: #### 24029-8 #### HARRY NOVAK ([id number]) [facility] ([facility]) [address], [place] [address]Jiomiyhfql (Bld) [#/Vol]0.08 x10*3/uLNormal0.00-0.00 [facility] HospitalComment on above:Result Comment: This is an appended report. These results have been appended to a previously final verified report.Performed By: #### [id number] #### HARRY NOVAK ([id number]) [facility] ([facility]) [address] [place], [place] [address]Mouoebqygg/100 WBC (Bld)1.0 %Normal0.0-0.0[facility] HospitalComment on above:Result Comment: This is an appended report. These results have been appended to a previously final verified report.Performed By: #### [id number] #### HARRY Bar'RAKAN ([id number]) [facility] ([facility]) [address] [place], [place] [address]Iqsdkenwgwr (Bld) [#/Vol]5.29 x10*3/uLNormal1.20-7.70 [facility] HospitalComment on above:Performed By: #### [id number] #### HARRY Bar'RAKAN ([id number]) [facility] ([facility]) [address] [place], [place] [address]Bfzanoxygd LM Ql (Bld)[facility] HospitalComment on above:Performed By: #### [id number] #### HARRY Bar'RAKAN ([id number]) [facility] (SADIE) [address] [place], [place] [address]Hxexnmlx clump LM Ql (Bld)PresentUC HealthComment on above:Performed By: #### 73158-9 #### HARRY Bar'RAKAN ([id number]) [facility] ([facility]) [address] [place], [place] [address]NKJ morphology finding Nom (Bld)See BelowUC HealthComment on above:Performed By: #### 31385-5 #### HARRY Bar'RAKAN ([id number]) [facility] ([facility]) [address] [place], [place] [address]Otjylypie neutrophils (Bld) [#/Vol]3.87 x10*3/uLNormal 1.20-7.00Miami Valley HospitalComment on above:Performed By: #### 85915-8 #### HARRY NOVAK ([id number]) [facility] ([facility]) [address] [place], [place] [address]Pvlyqvxku neutrophils/100 WBC (Bld)49.0 %Qcszlj74.0-80.0 Miami Valley HospitalComment on above:Result Comment: Percent differential counts (%) should be interpreted in the context of the absolute cell counts (cells/uL).Performed By: #### 93803-4 #### HARRY NOVAK ([id number]) [facility] ([facility]) [address] [place], [place] [address]BQP other Manual cnt (Bld) [#/Vol]NormalMiami Valley HospitalComment on above:Result Comment: Corrected result: Previously reported as 0.24 x10*3/uL (reference range: ) on 03/26/2025 at 1656 EDT.Performed By: #### 48565-1 #### HARRY NOVAK ([id number]) [facility] ([facility]) [address] [place], [place] [address]QOT other/100 WBC (Bld)NormalMiami Valley HospitalComment on above:Result Comment: Atypical mononuclear cells concerning for blasts. Corrected result: Previously reported as 3.0 % (reference range: ) on 03/26/2025 at 1656 EDT.Performed By: #### 69022-9 #### HARRY NOVAK ([id number]) [facility] ([facility]) [address] [place], [place] [address]Qxlhfkzhpmo review Pathologist comment (Bld) [Interp]on 95-12-5299YQZK REVIEW-CBC DIFFERENTIALLeft shift with approximately 5% Blasts. Marked anisocytosis of red cells with ovalocytes and few tear drop cells. Findings compatible with clinical history of primary myelofibrosis but concerning for acceleration of disease.UC HealthComment on above:Result Comment: . By the signature on this report, the individual or group listed as making the Final Interpretation/Diagnosis certifies that they have reviewed this case. Performed By: #### 71289-9 #### BRITTNEY Sung ([id number]) [facility] ([facility]) [address] [place] [address]Itqnkoqyu Encounteron 64-11-2788Pabkrfusczdua Authentication Interface Message TextHEMATOLOGY AND MEDICAL ONCOLOGY [facility] I received a call from the patient's primary Oncologist, Dr. Martita Hopper from [facility]. We discussed about the results of the two bone marrow biopsies that were taken at [facility] and also, I've explained the rationale behind the need for the patient to be evaluated at the or [facility] in order to be assessed for the possibility of an Allo SCT due to his diagnosis of Myelofibrosis. I connected with our team at [facility] and they have been working on [...] with my attending Dr. Ronnie DO. Ramo Taylro MD Hematology and Medical Oncology Fellow [facility] [place] [employer], [phone] Van Wert Hospital SystemTranscription Authentication Interface Message Pako calling to follow up on yesterdays call Akilah also states that she will be sending the MARIE again via fax - it will be uploaded into patient's chart once receivedNoOhioHealth Van Wert Hospital SystemTelephone Encounteron [phone] Authentication Interface Message Text Akilah Lane calling from [facility] on behalf of Dr. Ruchi Hopper, referring [...] in the patient's chart at this time. [phone] - phone number [phone] - fax [facility] [employer] Noteson 03-13-2025 Proposal Manager Authentication Interface Message TextSW met with Pt and his , Marla, at the [facility]. Pt met with Dr. Craig but due to the distance between his home and , Pt will seek treatment at . SW educated Pt on emotional support services available through [facility] and explained that services can be accessed virtually and that TGP can also direct them to services in their area. Pt accepted the referral to TGP. SW submitted TGP referral through [facility] [employer] . Willow Bond REGISTERED CLINICAL DIETITIAN, LEAD GENERATION REPRESENTATIVE [id number] KutendaPodimetrics SystemTelephone Encounteron [phone] Authentication Interface Message TextOpened in error Willow ROQUE, LEAD GENERATION REPRESENTATIVE [id number] KutendaPodimetrics SystemProgress Noteson [phone] Authentication Interface Message Text Attestation signed by [...] Bueno MD 03/12/2025 HEMATOLOGY AND MEDICAL ONCOLOGY [facility] Patient ID: Name: Penny Ordaz Encounter Date: [...] THERAPY Current therapy has been given at [facility] per Dr. Martita Hopper MD PROCRIT [...] and severe seborrheic dermatitis, initially presented to [facility] on September 08, 2024. He reported [...] October 2024, the patient was evaluated at [facility] due to severe anemia once again. He [...] most recent transfusion occurring this morning at [facility], where a hemoglobin level of 6.5 g/dL was documented. 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 The patient has been sent to our hospital to define management and plan for possible Bone Marrow Transplant. Interval: The patient underwent a new BONE MARROW BIOPSY here at [facility] on 01/21/2025, and the results are [...] cases of M (more content not included)...NormalThe [employer] System Telephone Encounteron 31-07-1007Zywajwipgstdg Authentication Interface Message TextPT Called to confirm appt 03/12 also asked for a call back about Bone Valdez results AM.NormalThe [employer] SystemTelephone Encounteron [phone] Authentication Interface Message TextLoretta from DR Glez office calledNormal The [employer] SystemTelephone Encounteron [phone] Authentication Interface Message TextPatient was identified by name and date of . Juliette Schumacher RN Contacted patient to schedule bone marrow biopsy and oncology follow-up. Patient aware of bone marrow biopsy February 20 with 10:30 arrival and MD follow-up March 12. Will have labs tomorrow at OSH. Juliette Schumacher RNNormCleveland Clinic Mercy Hospitale Trousdale Medical CenterPodimetrics SystemProgress Noteson 02-12-2025 Proposal Manager Authentication Interface Message TextHEMATOLOGY AND MEDICAL ONCOLOGY [...] the previous bedside B[facility] was very painful. He requested sedation if the pain is not adequately controlled with local lidocaine. I will relay this patient's concern to the IR team. Order placed in the system. Ramo Taylor MD Hematology and Medical Oncology Fellow Epic chat, [phone] Van Wert Hospital SystemTelephone Encounteron 02-11-2025 Proposal Manager Authentication Interface Message TextPT Called back asking for follow up on MRI Informed of message from Dr. Wisam WANG.NormalThe [facility] SystemTranscription Authentication Interface Message TextPatient calling Patient states that he is to be scheduled for an MRI - I don't see any orders for an MRI Patient can be reached at [phone] [facility] SystemProgress Notes on [phone] Authentication Interface Message TextMD to reach out to IR to see if IR guided bone marrow biopsy possibility. Will arrange follow-up after decision made regarding biopsy. Juliette Schumacher, RNNoOhioHealth Van Wert Hospital SystemTranscriptPSYLIN NEUROSCIENCESation Interface Message TextHEMATOLOGY AND MEDICAL ONCOLOGY [facility] Patient ID: Name: Penny Ordaz Encounter Date: [...] THERAPY Current therapy has been given at [facility] per Dr. Martita Hopper MD PROCRIT [...] and severe seborrheic dermatitis, initially presented to [facility] on September 08, 2024. He reported [...] October 2024, the patient was evaluated at [facility] due to severe anemia once again. He [...] most recent transfusion occurring this morning at [facility], where a hemoglobin level of 6.5 g/dL was documented. 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 The patient has been sent to our hospital to define management and plan for possible Bone Marrow Transplant. Interval: The patient underwent a new BONE MARROW BIOPSY here at [facility] on 01/21/2025, and the results are [...] saturation is 100% (more content not included)...NormalThe Westchester Medical CenterHylioSoft SystemAddendum Noteon 12-89-2747Yvrdonefohzqs Authentication Interface Message TextEncounter addended by: Macy Salmeron on: 01/21/2025 12:46 PM Actions taken: Visit diagnoses modified, Order list changed, Diagnosis association updatedNoOhioHealth Van Wert Hospital SystemTranscription Authentication Interface Message TextEncounter addended by: Azul Hidalgo RN on: 01/21/2025 11:58 AM Actions taken: Clinical Note SignedNoOhioHealth Van Wert Hospital SystemProgress Noteson [phone] Authentication Interface Message TextPatient was identified by name and date of . Azul Hidalgo RN The patient had a bone marrow biopsy x2 without complications. He was educated on side effects and potential complications/ risks. The sights were clean dry and in tact without bleeding on discharge. Madeline Hidalgo RNStafford District HospitalPodimetrics System Proposal Manager Authentication Interface Message TextPatient was identified by name and date of . VIDAL Guardado/MPA Patient at risk for falls:No Falls Risk protocol implemented: NoNormalThe Westchester Medical CenterroPodimetrics SystemAddendum Noteon 52-58-7133Jaacowdffsnxf Authentication Interface Message TextEncounter addended by: Lashell Trujillo DO on: 01/18/2025 1:05 PM Actions taken: Cosign clinical note with attestationNormCleveland Clinic Mercy Hospitale Westchester Medical CenterroPodimetrics System Progress Noteson 94-67-4898Nrbrixpncmizl Authentication Interface Message Text Attestation signed by [...] 01/18/2025 1:03 PM HEMATOLOGY AND MEDICAL ONCOLOGY [facility] Patient ID: Name: Penny Ordaz Encounter Date: [...] THERAPY Current therapy has been given at [facility] per Dr. Martita Hopper MD PROCRIT [...] and severe seborrheic dermatitis, initially presented to [facility] on September 08, 2024. He reported [...] October 2024, the patient was evaluated at [facility] due to severe anemia once again. He [...] most recent transfusion occurring this morning at [facility], where a hemoglobin level of 6.5 g/dL was documented. A bone marrow biopsy was performed on December 25, 2024, at [facility], with results reported on January 01, 2025 [...] has no allerg (more content not included)...NormalThe [employer] System Telephone Encounteron 39-73-8493Pgravdeawxzgr Authentication Interface Message TextUpon review of chart, [...] arrangements' and call back tomorrow. Claudy Ryan [employer] SystemTranscription Authentication Interface Message TextPT called to make appointment Scheduled by notes PT asked 01/15 at 1PM AM.NormalThe MindEdgeTelephone Encounteron 51-74-1499Cxsqoctmztwie Authentication Interface Message TextPt id'd by name and . Explained to pt the reason for call was to schedule appt. Pt stated he was not sure whether or not he needed appt and stated he will check w/his oncologist tomorrow. Pt accepted contact info and stated he will call back. Holding 12/[address] CRAIG. please make sure [facility] is [facility]. Claudy Ryan [facility] Systemn 10-09-2024L Specimen: BP25-3 Received: 10/11/24 Status: QUOC Swain Num: [id number] Spec Type: Impression Subm Dr: Martita Hopper MD Tissues: PATHPER Procedures: PATHREVIEW Age/ Patient Sex Location Account Attending Physician Penny Ordaz/M LABELL [id number] Martita Hopper MD SPEC NUM: [id number] RECD: 10/11/24 STATUS: QUOC SWAIN NUM: [id number] BEV: 10/09/[address] [facility] [address]: Martita Hopper MD ENTERED: 10/11/[address]: William Ly SPEC TYPE: Impression DEPT: ALLI Correa ENTERED BY: [id number] RECV BY: [id number] ORDERED: PATHREVIEW ORDERED: PATHREVIEW Pathologist Review Abnormal [...] BP25-3 Received: 10/11/24 Status: QUOC Swain Num: [id number] Spec Type: Impression Subm Dr: Martita Hopper MD Tissues: PATHPER Procedures: PATHREVIEW Patient: Penny Ordaz Brit [id number] (Continued) Specimen: BP25-3 Received: 10/11/24 (Continued) Pathologist Review (Continued) Signed (signature on file) Delfina Calderón MD 10/14/242029 Specimen: BP25-3 Received: 10/11/24 Status: QUOC Swain Num: [id number] Spec Type: Impression Subm Dr: Martita Hopper MD Tissues: PATHPER Procedures: PATHREVIEW Patient: Penny Ordaz [id number] (Continued) Specimen: BP25-3 Received: 10/11/24 (Continued) Pathologist Review (Continued) [id number] Specimen: BP25-3 Received: 10/11/24 Status: QUOC Swain Num: [id number] Spec Type: Impression Subm Dr: Martita Hopper MD Tissues: PATHPER Procedures: PATHREVIEW Patient: Penny Ordaz [id number] (Continued) Signed (signature on file) Chin-Michael Calderón MD 10/14/[address] [place] [address] Physician GroupBASIC METABOLIC PANLon 76-57-4444Jpozk gap [Moles/Vol]6 mmol/LNormal5-15ProMartins Ferry Hospital HospitalComment on above: Performed By: #### CBCSherry, PINR, BMP, 41290-1, 2284-8, 66263-8, LIVR #### [facility] ([id number]) [address], [address] [place], [place] [address]Zgqlows [Mass/Vol]9.0 mg/dLNormal8.5-10.5PMedina HospitalComment on above:Performed By: #### CBCA, PINR, BMP, 35407-3, 2284-8, 23962-1, LIVR #### [facility] ([id number]) [address], [address] [place], [place] [address]Kkqisaoy [Moles/Vol]102 mmol/DGzravs93-780DrtGmylnt [place] HospitalComment on above:Performed By: #### CBCA, PINR, BMP, 75517-7, 2284-8, 65119-3, LIVR #### [facility] ([id number]) [address], [address] [place], [place] [address]JQ2 [Moles/Vol]29 mmol/RLsszcf32-44SyqAgfrwqMedina Hospital Comment on above:Performed By: #### CBCA, PINR, BMP, 99572-0, 2284-8, 16844-4, LIVR #### [facility] ([id number]) [address], [address] [place], [place] [address]Trwwsfusgb [Mass/Vol]0.67 mg/dLNormal0.60-1.30ProMartins Ferry Hospital HospitalComment on above:Result Comment: METHOD TRACEABLE TO IDMS STANDARD Performed By: #### CBCA, PINR, BMP, 92290-8, 2284-8, 75888-9, LIVR #### [facility] ([id number]) [address], [address] [place], [place] [address]vJUO (CKD-EPI) NON-RACE DEPENDENT>90Normal>59ProMartins Ferry Hospital HospitalComment on above:Result Comment: Reported eGFR is based on the CKD-EPI 2020 equation that does not use a race coefficient.Performed By: #### CBCA, PINR, BMP, 19280-2, 2284-8, 97447-2, LIVR #### [facility] ([id number]) [address], [address] [place], [place] [address]Sxsdmbl [Mass/Vol]103 mg/zQJxht33-11LkaDhndan [facility] Comment on above:Performed By: #### CBCA, PINR, BMP, 62030-7, 2284-8, 25034-8, LIVR #### [facility] ([id number]) [address], [address] [place], [place] [address]Cmjsnlatt [Moles/Vol]4.4 mmol/LNormal3.5-5.0ProMartins Ferry Hospital HospitalComment on above:Performed By: #### CBCA, PINR, BMP, 54667-4, 2284-8, 87252-3, LIVR #### [facility] ([id number]) [address], [address] [place], [place] [address]Vytzet [Moles/Vol]137 mmol/SWqgcgg969-413NqmIqyptc [place] HospitalComment on above:Performed By: #### CBCA, PINR, BMP, 89888-2, 2284-8, 01909-4, LIVR #### [facility] ([id number]) [address], [address] [place], [place] [address]Kkrc nitrogen [Mass/Vol]11 mg/dLNormal5-27ProMedica [facility] HospitalComment on above:Performed By: #### CBCA, PINR, BMP, 51001-8, 2284-8, 39755-0, LIVR #### [facility] ([id number]) [address], [address] [place], [place] [address]KPKLEAXY BLOOD COUNTon 16-52-4851Xixcmmasjof distribution width (RBC) [Ratio]21.1 %High11.5-15.0ProMedica [facility]uz HospitalComment on above: Performed By: #### CBCA, PINR, BMP, 57827-5, 2284-8, 59801-8, LIVR #### [facility] ([id number]) [address], [address] [place], [place] [address]Esdvyvvjqb (Bld) [Volume fraction]23.4 %Pih35-98JfxLstnos Penelope HospitalComment on above:Performed By: #### CBCA, PINR, BMP, 66116-5, 2284-8, 03507-9, LIVR #### [facility] ([id number]) [address], [address] [place], [place] [address]Wambtxontv (Bld) [Mass/Vol]7.7 g/dLLow13.0-17.0ProSelect Medical Specialty Hospital - Youngstownca Penelope HospitalComment on above:Performed By: #### CBCA, PINR, BMP, 19022-2, 2284-8, 49532-1, LIVR #### [facility] ([id number]) [address], [address] [place], [place] [address]DDH (RBC) [Entitic mass]30.3 bcNpncik86-66WaaGkxpyq [facility] HospitalComment on above:Performed By: #### CBCA, PINR, BMP, 15342-7, 2284-8, 42546-7, LIVR #### [facility] ([id number]) [address], [address] [place], [place] [address]HWRW (RBC) [Mass/Vol]32.8 g/cYSklslz69-38FwcTvwkmk [facility] HospitalComment on above:Performed By: #### CBCA, PINR, BMP, 12668-8, 2284-8, 47731-1, LIVR #### [facility] ([id number]) [address], [address] [place], [place] [address]RQT (RBC) [Entitic vol]93 hJZhfrob34-606HowBpgljx [facility] HospitalComment on above:Performed By: #### CBCA, PINR, BMP, 35266-9, 2284-8, 18048-2, LIVR #### [facility] ([id number]) [address], [address] [place], [place] [address]Gmwnnlxy mean volume (Bld) [Entitic vol]8.3 fLNormal7-12 [facility] HospitalComment on above:Performed By: #### CBCA, PINR, BMP, 92166-4, 2284-8, 46932-1, LIVR #### [facility] ([id number]) [address], [address] [place], [place] [address]Nmimkyctz (Bld) [#/Vol]423 10*3/eNUdxbwr093-216SqtZrgfaj [facility] HospitalComment on above:Performed By: #### CBCA, PINR, BMP, 70932-6, 2284-8, 00886-2, LIVR #### [facility] ([id number]) [address], [address] [place], [place] [address]TOF COUNT2.53 X10E12/LLow4.10-5.70[facility] Comment on above:Performed By: #### CBCA, PINR, BMP, 40521-1, 2284-8, 71978-0, LIVR #### [facility] ([id number]) [address], [address] [place], [place] [address]SLR (Bld) [#/Vol]5.3 10*3/uLNormal4.0-11.0ProCleveland Clinic Lutheran HospitalComment on above:Performed By: #### CBCA, PINR, BMP, 69408-3, 2284-8, 61042-0, LIVR #### [facility] ([id number]) [address], [address] [place], [place] [address]QIC A1C (GLYCO-HGB)on 90-80-6701Wiefsan [Mass/Vol]105 mg/dL NormalProCleveland Clinic Lutheran HospitalComment on above:Performed By: #### CBCA, PINR, BMP, 94951-6, 4-8, 33375-4, LIVR #### [facility] ([id number]) [address], [address] [place], [place] [address]MvO3n (Bld) [Mass fraction]5.3 %Normal4.4-5.6Samaritan North Health CenterComment on above:Result Comment: NOTE ADA Guidelines Result HgbA1c Normal : less than 5.7 % Prediabetes : 5.7 % to 6.4 % Diabetes : > 6.4 % Use with caution in patients with abnormal hemoglobin variants as the half-life of red blood cells and in vivo glycation rates are affected.Performed By: #### CBCA, PINR, BMP, 62869-7, 2284-8, 37853-5, LIVR #### [facility] ([id number]) [address], [address] [place], [place] [address]QZQPY METABOLIC PANLon 02-24-1226Ixokf gap [Moles/Vol]5 mmol/L Normal5-15Pro[facility] HospitalComment on above:Performed By: #### CBCA, PINR, BMP, 68046-0, 2284-8, 06708-2, LIVR #### [facility] ([id number]) [address], [address] [place], [place] [address]Fladrxx [Mass/Vol]8.7 mg/dLNormal8.5-10.5PMedina HospitalComment on above:Performed By: #### CBCA, PINR, BMP, 55179-0, 2284-8, 55235-8, LIVR #### [facility] ([id number]) [address], [address] [place], [place] [address]Wzycjoav [Moles/Vol]101 mmol/YHohirz25-283KdcXqimcd [facility] HospitalComment on above:Performed By: #### CBCA, PINR, BMP, 95193-1, 2284-8, 56249-7, LIVR #### [facility] ([id number]) [address], [address] [place], [place] [address]PG6 [Moles/Vol]28 mmol/RQdorix19-93JtuHjcatv [facility] Comment on above:Performed By: #### CBCA, PINR, BMP, 24019-1, 2284-8, 44838-5, LIVR #### [facility] ([id number]) [address], [address] [place], [place] [address]Cuxhfdfbga [Mass/Vol]0.54 mg/dLLow0.60-1.30ProMart[facility] Ferry Hospital HospitalComment on above:Result Comment: METHOD TRACEABLE TO IDMS STANDARD Performed By: #### CBCA, PINR, BMP, 70527-8, 2284-8, 15912-0, LIVR #### [facility] ([id number]) [address], [address] [place], [place] [address]qONB (CKD-EPI) NON-RACE DEPENDENT>90Normal>59ProMedica [facility]uz HospitalComment on above:Result Comment: Reported eGFR is based on the CKD-EPI 2020 equation that does not use a race coefficient.Performed By: #### CBCA, PINR, BMP, 16920-5, 2284-8, 29364-3, LIVR #### [facility] ([id number]) [address], [address] [place], [place] [address]Iyogavz [Mass/Vol]90 mg/rMXbgheo50-12VnyYmicef [facility] Comment on above:Performed By: #### CBCA, PINR, BMP, 47724-1, 2284-8, 40697-1, LIVR #### [facility] ([id number]) [address], [address] [place], [place] [address]Gjqtfonit [Moles/Vol]4.5 mmol/LNormal3.5-5.0ProCleveland Clinic Lutheran HospitalComment on above:Performed By: #### CBCA, PINR, BMP, 40776-4, 2284-8, 27405-8, LIVR #### [facility] ([id number]) [address], [address] [place], [place] [address]Ruzxxd [Moles/Vol]134 mmol/TUtpssi088-204NrkEqstap [place] HospitalComment on above:Performed By: #### CBCA, PINR, BMP, 29669-0, 2284-8, 78145-7, LIVR #### [facility] ([id number]) [address], [address] [place], [place] [address]Fend nitrogen [Mass/Vol]10 mg/dLNormal5-27ProMart[facility] Ferry Hospital HospitalComment on above:Performed By: #### CBCA, PINR, BMP, 93168-9, 2284-8, 95840-7, LIVR #### [facility] ([id number]) [address], [address] [place], [place] [address]NVY AND AUTO DIFFon 66-63-5842Vamr form neutrophils/100 WBC (Bld)26.0 %NormalProMedica Penelope HospitalComment on above:Performed By: #### CBCA, PINR, BMP, 89980-7, 2284-8, 79630-9, LIVR #### [facility] ([id number]) [address], [address] [place], [place] [address]Asrnynvelsw distribution width (RBC) [Ratio]21.4 %High11.5-15.0 [facility] HospitalComment on above:Performed By: #### CBCA, PINR, BMP, 19678-6, 2284-8, 27444-7, LIVR #### [facility] ([id number]) [address], [address] [place], [place] [address]ENOUIKQI6+AbnormalNONEProMedica Penelope HospitalComment on above: Performed By: #### CBCA, PINR, BMP, 65274-9, 2284-8, 64492-1, LIVR #### [facility] ([id number]) [address], [address] [place], [place] [address]Ymmigkcxaf (Bld) [Volume fraction]24.1 %Aol05-55IfpJohnev Penelope HospitalComment on above:Performed By: #### CBCA, PINR, BMP, 21683-5, 2284-8, 99648-6, LIVR #### [facility] ([id number]) [address], [address] [place], [place] [address]Gfljiwcbvg (Bld) [Mass/Vol]7.9 g/dLLow13.0-17.0ProMedica Penelope HospitalComment on above:Performed By: #### CBCA, PINR, BMP, 83162-7, 2284-8, 89904-4, LIVR #### [facility] ([id number]) [address], [address] [place], [place] [address]Qvjrtrdfgkg (Bld) [#/Vol]0.3 10*3/uLLow1.0-3.5ProMedica Penelope HospitalComment on above:Performed By: #### CBCA, PINR, BMP, 31547-9, 2284-8, 90778-7, LIVR #### [facility] ([id number]) [address], [address] [place], [place] [address]Otmqdtinacl/100 WBC (Bld)5.0 %NormalProMartins Ferry Hospital Hospital Comment on above:Performed By: #### CBCA, PINR, BMP, 39071-4, 2284-8, 23572-7, LIVR #### [facility] ([id number]) [address], [address] [place], [place] [address]BPL (RBC) [Entitic mass]30.4 hcIdwzje88-46JqdCpofgp [place] HospitalComment on above:Performed By: #### CBCA, PINR, BMP, 09023-0, 2284-8, 10649-1, LIVR #### [facility] ([id number]) [address], [address] [place], [place] [address]JZCP (RBC) [Mass/Vol]32.7 g/wWSpyhgv65-06EshGnywib [place] HospitalComment on above:Performed By: #### CBCA, PINR, BMP, 02836-0, 2284-8, 97121-4, LIVR #### [facility] ([id number]) [address], [address] [place], [place] [address]JRJ (RBC) [Entitic vol]93 wCJhqmsm29-000SkeGudvtr [place] HospitalComment on above:Performed By: #### CBCA, PINR, BMP, 76880-8, 2284-8, 27011-5, LIVR #### [facility] ([id number]) [address], [address] [place], [place] [address]Osafyuaqj (Bld) [#/Vol]0.2 10*3/uLNormal0-0.9ProMedica Arauz HospitalComment on above:Performed By: #### CBCA, PINR, BMP, 90326-8, 2284-8, 43499-2, LIVR #### [facility] ([id number]) [address], [address] [place], [place] [address]Awypyikhl/100 WBC (Bld)3.0 %NormalProSelect Medical Specialty Hospital [facility]stownca [facility] Comment on above:Performed By: #### CBCA, PINR, BMP, 42983-1, 2284-8, 56087-2, LIVR #### [facility] ([id number]) [address], [address] [place], [place] [address]Ijbtotuqqkl (Bld) [#/Vol]6.3 10*3/uLNormal1.5-6.6ProMedica Penelope HospitalComment on above:Performed By: #### CBCA, PINR, BMP, 90608-4, 2284-8, 65066-6, LIVR #### [facility] ([id number]) [address], [address] [place], [place] [address]KAUYMKMMY2+AbnormalNONEProMedica Penelope HospitalComment on above:Performed By: #### CBCA, PINR, BMP, 44113-3, 2284-8, 01146-9, LIVR #### [facility] ([id number]) [address], [address] [place], [place] [address]Bdhvtlaq mean volume (Bld) [Entitic vol]8.3 fLNormal7-12 [facility] HospitalComment on above:Performed By: #### CBCA, PINR, BMP, 17984-7, 2284-8, 67498-2, LIVR #### [facility] ([id number]) [address], [address] [place], [place] [address]Huaqfwalt (Bld) [#/Vol]235 10*3/aLZsvute353-759RszUadycd [facility]uz HospitalComment on above:Performed By: #### CBCA, PINR, BMP, 17061-1, 2284-8, 39560-8, LIVR #### [facility] ([id number]) [address], [address] [place], [place] [address]DOIJNNNRNKKQM4+AbnormalNONEProMedica Mercy HealthComment on above:Performed By: #### CBCA, PINR, BMP, 21341-5, 2284-8, 06699-0, LIVR #### [facility] ([id number]) [address], [address] [place], [place] [address]SSZ COUNT2.59 X10E12/LLow4.10-5.70ProMartins Ferry Hospital Hospital Comment on above:Performed By: #### CBCA, PINR, BMP, 83248-2, 2284-8, 01524-9, LIVR #### [facility] ([id number]) [address], [address] [place], [place] [address]RZB NZONENAPNM94.0 %NormalProCleveland Clinic Lutheran HospitalComment on above:Performed By: #### CBCA, PINR, BMP, 45437-8, 2284-8, 97536-9, LIVR #### [facility] ([id number]) [address], [address] [place], [place] [address]OVH (Bld) [#/Vol]6.8 10*3/uLNormal4.0-11.0ProCleveland Clinic Lutheran HospitalComment on above:Performed By: #### CBCA, PINR, BMP, 54379-1, 2284-8, 46263-9, LIVR #### [facility] ([id number]) [address], [address] [place], [place] [address]Qcszrcc Glucometer (BldC) [Mass/Vol]on 63-91-2380Kvxxmsc [Mass/Vol]126 mg/bGOvpz29-96TiiIkdhrp [facility] HospitalGlucose [Mass/Vol]100 mg/dL Cfcg20-45UrdAcnvdeCleveland Clinic Lutheran HospitalBASIC METABOLIC PANLon 81-55-8430Bbmux gap [Moles/Vol]5 mmol/LNormal5-15ProMartins Ferry Hospital HospitalComment on above:Performed By: #### CBCA, PINR, BMP, 33518-2, 2284-8, 55756-5, LIVR #### [facility] ([id number]) [address], [address] [place], [place] [address]Cptzjtf [Mass/Vol]8.2 mg/dLLow8.5-10.5PMedina Hospital Comment on above:Performed By: #### CBCA, PINR, BMP, 66559-2, 2284-8, 60740-9, LIVR #### [facility] ([id number]) [address], [address] [place], [place] [address]Tvvvxxgy [Moles/Vol]102 mmol/LLnkler62-049PedGpprmj [place] HospitalComment on above:Performed By: #### CBCA, PINR, BMP, 48057-7, 2284-8, 54959-5, LIVR #### [facility] ([id number]) [address], [address] [place], [place] [address]MQ3 [Moles/Vol]28 mmol/EGcvkpq95-57LchZncgmvMedina Hospital Comment on above:Performed By: #### CBCA, PINR, BMP, 12995-3, 2284-8, 73528-6, LIVR #### [facility] ([id number]) [address], [address] [place], [place] [address]Vnlrnhsaaq [Mass/Vol]0.57 mg/dLLow0.60-1.30ProCleveland Clinic Lutheran HospitalComment on above:Result Comment: METHOD TRACEABLE TO IDMS STANDARD Performed By: #### CBCA, PINR, BMP, 18998-0, 2284-8, 49585-5, LIVR #### [facility] ([id number]) [address], [address] [place], [place] [address]tTIE (CKD-EPI) NON-RACE DEPENDENT>90Normal>59ProMartins Ferry Hospital HospitalComment on above:Result Comment: Reported eGFR is based on the CKD-EPI 2020 equation that does not use a race coefficient.Performed By: #### CBCA, PINR, BMP, 89266-8, 2284-8, 12916-6, LIVR #### [facility] ([id number]) [address], [address] [place], [place] [address]Qnmppks [Mass/Vol]99 mg/qVFyqbko48-22DvbShobvc [facility] Comment on above:Performed By: #### CBCA, PINR, BMP, 37007-5, 2284-8, 07096-2, LIVR #### [facility] ([id number]) [address], [address] [place], [place] [address]Fmexstezn [Moles/Vol]4.4 mmol/LNormal3.5-5.0ProMartins Ferry Hospital HospitalComment on above:Performed By: #### CBCA, PINR, BMP, 21658-4, 2284-8, 31364-8, LIVR #### [facility] ([id number]) [address], [address] [place], [place] [address]Mfgixr [Moles/Vol]135 mmol/MGzvylv234-950WnnJrjjpw [place] HospitalComment on above:Performed By: #### CBCA, PINR, BMP, 70079-8, 2284-8, 96217-4, LIVR #### [facility] ([id number]) [address], [address] [place], [place] [address]Pxlf nitrogen [Mass/Vol]11 mg/dLNormal5-27ProMart[facility]erry Hospital HospitalComment on above:Performed By: #### CBCA, PINR, BMP, 96701-3, 2284-8, 57925-8, LIVR #### [facility] ([id number]) [address], [address] [place], [place] [address]GAL AND AUTO DIFFon 22-94-0430Zjox form neutrophils/100 WBC (Bld)21.0 %NormalProMedica Penelope HospitalComment on above:Performed By: #### CBCA, PINR, BMP, 91949-3, 2284-8, 61585-2, LIVR #### [facility] ([id number]) [address], [address] [address]Tstcooijjzw distribution width (RBC) [Ratio]19.8 %High11.5-15.0 ProMPeoples Hospital HospitalComment on above:Performed By: #### CBCA, PINR, BMP, 22876-9, 2284-8, 09035-8, LIVR #### [facility] ([id number]) [address], [address] [address]MCROPDBW8+AbnormalNONEProMedica Penelope HospitalComment on above: Performed By: #### CBCA, PINR, BMP, 11383-3, 2284-8, 09960-7, LIVR #### [facility] ([id number]) [address], [address] [address]Tqitgublsy (Bld) [Volume fraction]21.3 %Pto35-15MgcQrowxb [facility] HospitalComment on above:Performed By: #### CBCA, PINR, BMP, 94876-5, 2284-8, 95890-4, LIVR #### [facility] ([id number]) [address], [address] [address]Sxjeqzldgt (Bld) [Mass/Vol]6.9 g/dLCritically low13.0-17.0 [facility] HospitalComment on above:Performed By: #### CBCA, PINR, BMP, 87254-4, 2284-8, 78983-3, LIVR #### [facility] ([id number]) [address], [address] [address]LIGFPAEG MONONUCLEAR1.0 %NormalProSelect Medical Specialty Hospital - Youngstownca [facility] HospitalComment on above:Performed By: #### CBCA, PINR, BMP, 40537-8, 2284-8, 32692-3, LIVR #### [facility] ([id number]) [address], [address] [place], [place] [address]Qxezrpldqcp (Bld) [#/Vol]0.6 10*3/uLLow1.0-3.5ProMedica [facility] HospitalComment on above:Performed By: #### CBCA, PINR, BMP, 08682-5, 2284-8, 45152-6, LIVR #### [facility] ([id number]) [address], [address] [place], [place] [address]Dbqlfkgwibk/100 WBC (Bld)9.0 %NormalProSelect Medical Specialty Hospital [facility] Comment on above:Performed By: #### CBCA, PINR, BMP, 13973-3, 2284-8, 85903-1, LIVR #### [facility] ([id number]) [address], [address] [place], [place] [address]TSF (RBC) [Entitic mass]30.5 grTfnbai58-02WydJupatl [facility] HospitalComment on above:Performed By: #### CBCA, PINR, BMP, 17846-7, 2284-8, 96239-8, LIVR #### [facility] ([id number]) [address], [address] [place], [place] [address]JTPG (RBC) [Mass/Vol]32.5 g/mAPmfker01-03BziPqpoas [facility] HospitalComment on above:Performed By: #### CBCA, PINR, BMP, 63346-9, 2284-8, 89560-1, LIVR #### [facility] ([id number]) [address], [address] [place], [place] [address]XML (RBC) [Entitic vol]94 iFJdxffx57-326KseLqfacx [facility] HospitalComment on above:Performed By: #### CBCA, PINR, BMP, 11686-1, 2284-8, 96668-9, LIVR #### [facility] ([id number]) [address], [address] [place], [place] [address]Fsvckajyp (Bld) [#/Vol]0.2 10*3/uLNormal0-0.9Pro[facility]ica [facility] HospitalComment on above:Performed By: #### CBCA, PINR, BMP, 98747-4, 2284-8, 25263-1, LIVR #### [facility] ([id number]) [address], [address] [place], [place] [address]Rlgetgpve/100 WBC (Bld)3.0 %NormalProMartins Ferry Hospital Hospital Comment on above:Performed By: #### CBCA, PINR, BMP, 01835-8, 2284-8, 31464-1, LIVR #### [facility] ([id number]) [address], [address] [place], [place] [address]Ululwdfuola (Bld) [#/Vol]5.3 10*3/uLNormal1.5-6.6ProMartins Ferry Hospital HospitalComment on above:Performed By: #### CBCA, PINR, BMP, 21064-7, 2284-8, 85956-7, LIVR #### [facility] ([id number]) [address], [address] [place], [place] [address]NCWKZPGLE7+AbnormalNONEProMedica Penelope HospitalComment on above:Performed By: #### CBCA, PINR, BMP, 27616-6, 2284-8, 14601-4, LIVR #### [facility] ([id number]) [address], [address] [place], [place] [address]Kytzzkew mean volume (Bld) [Entitic vol]8.0 fLNormal7-12 [facility] HospitalComment on above:Performed By: #### CBCA, PINR, BMP, 20840-3, 2284-8, 91016-5, LIVR #### [facility] ([id number]) [address], [address] [place], [place] [address]Nvwvanvra (Bld) [#/Vol]226 10*3/eNNezozs652-106KonMbduqv [facility] HospitalComment on above:Performed By: #### CBCA, PINR, BMP, 88142-1, 2284-8, 90469-8, LIVR #### [facility] ([id number]) [address], [address] [place], [place] [address]JRAJJEALPCASP4+AbnormalNONEProMedica Arauz HospitalComment on above:Performed By: #### CBCA, PINR, BMP, 43066-7, 2284-8, 60950-2, LIVR #### [facility] ([id number]) [address], [address] [place], [place] [address]ZJE COUNT2.27 X10E12/LLow4.10-5.70[facility] Comment on above:Performed By: #### CBCA, PINR, BMP, 69952-8, 2284-8, 85817-5, LIVR #### [facility] ([id number]) [address], [address] [place], [place] [address]XRD FSPUEUKTGG95.0 %NormalProMedica Arauz HospitalComment on above:Performed By: #### CBCA, PINR, BMP, 25352-4, 2284-8, 16346-2, LIVR #### [facility] ([id number]) [address], [address] [place], [place] [address]IKNAVNXG1+AbnormalNONEProMedica Arauz HospitalComment on above: Performed By: #### CBCA, PINR, BMP, 38825-2, 2284-8, 40677-2, LIVR #### [facility] ([id number]) [address], [address] [place], [place] [address]HQB (Bld) [#/Vol]6.2 10*3/uLNormal4.0-11.0ProSelect Medical Specialty Hospital - Youngstownca [facility] HospitalComment on above:Performed By: #### CBCA, PINR, BMP, 07603-4, 2284-8, 86533-1, LIVR #### [facility] ([id number]) [address], [address] [place], [place] [address]Ocbfwzm Glucometer (BldC) [Mass/Vol]on 57-44-0686Mzqovtv [Mass/Vol]116 mg/eYFung14-94KnsVavepp [facility] HospitalGlucose [Mass/Vol]106 mg/dL Drqq97-59YaoAzpmla [facility] HospitalGlucose [Mass/Vol]112 mg/tGYpvj38-67AnkAxjlni [facility] HospitalGlucose [Mass/Vol]153 mg/vAAznd91-13FvcNvcjxf [facility] HospitalHGB on 80-31-3747Xgdyfaikxl (Bld) [Volume fraction]24.1 %Jbg34-04MdoDrwhkt [place] HospitalComment on above:Performed By: #### CBCA, PINR, BMP, 19721-2, 4-8, 14353-5, LIVR #### [facility] ([id number]) [address], [address] [place], [place] [address]Ifusvdqwek (Bld) [Mass/Vol]7.9 g/dLLow13.0-17.0ProMartins Ferry Hospital HospitalComment on above:Performed By: #### CBCA, PINR, BMP, 34545-4, 2284-8, 98588-2, LIVR #### [facility] ([id number]) [address], [address] [place], [place] [address]RDZWBRH AND INRon 19-67-2974UIR Coag (PPP) [Relative time]1.4 {INR}High0.9-1.2ProMedica [facility] HospitalComment on above:Performed By: #### CBCA, PINR, BMP, 01454-6, 2284-8, 03334-5, LIVR #### [facility] ([id number]) [address], [address] [place], [place] [address]YL Coag (PPP) [Time]16.0 sHigh9.8-13.2PMedina Hospital Comment on above:Performed By: #### CBCA, PINR, BMP, 72235-5, 2284-8, 67922-2, LIVR #### [facility] ([id number]) [address], [address] [place], [place] [address]XZZC PATHOGENS/JWMD-ZwI-3wi 20-55-1445Gfvrcrxhyyd pathogens DNA and RNA panel RICK+non-probe (Nph)SPECIMEN [...] other pathogens. The agent(s) detected by the Reduce DataFire RP2.1 may not be the definite cause [...] evaluating a patient with possible respiratory tract infection.NormalSamaritan North Health CenterComment on above:Performed By: #### CBCA, PINR, BMP, 68654-0, 2284-8, 94036-9, LIVR #### [facility] ([id number]) [address], [address] [place], [place] [address]HT CHEST 1 VWon 60-98-5937EY CHEST 1 VWXR CHEST 1 VW CHEST 1 VIEW HISTORY: Pneumothorax follow-up COMPARISON: 09/11/2024, 1:48 PM IMPRESSION: * Previously seen right apical pneumothorax not well visible. Small right pleural effusion. * Left lung is clear. * Unchanged cardiomediastinal silhouette. Finalized by Kristofer Lee MD on 09/11/2024 10:30 PMNormalSamaritan North Health CenterXR CHEST 1 VWXR CHEST 1 VW Single [...] by Tamela Escalante MD on 09/11/2024 2:02 PMNormalSamaritan North Health CenterBF CELL CT AND DIFFon 25-20-1378RTDN FLUID COMMENT Interpretation--------NormalSamaritan North Health CenterComment on above: Result Comment: Reference values for this fluid type are undefined, as fluid accumulation is considered abnormal. SEE CYTOLOGY REPORT Corrected on 09/11 AT 1341: Previously reported as Interpretation Reference values for this fluid type are undefined, as fluid accumulation is considered abnormal.Performed By: #### CBCA, PINR, BMP, 35222-6, 2284-8, 66207-5, LIVR #### [facility] ([id number]) [address], [address] [address]RKATI CLARITYCLEARNormalOhioHealth Doctors Hospital HospitalComment on above:Performed By: #### CBCA, PINR, BMP, 80252-3, 2284-8, 38915-1, LIVR #### [facility] ([id number]) [address] [address]XYZNW COLORSTRAWNormalOhioHealth Doctors Hospital HospitalComment on above: Performed By: #### CBCA, PINR, BMP, 18447-7, 2284-8, 04545-4, LIVR #### [facility] ([id number]) [address], [address] [address]BKWYX TZZKMHKASZ51 %NormalSamaritan North Health CenterComment on above:Performed By: #### CBCA, PINR, BMP, 96648-3, 2284-8, 88047-3, LIVR #### [facility] ([id number]) [address], [place] [address]PFQBX JHIMYXVYKWB49 %NormalProMedica Penelope HospitalComment on above:Performed By: #### CBCA, PINR, BMP, 10514-3, 2284-8, 02732-6, LIVR #### [facility] ([id number]) [address], [address] [place], [place] [address]AYCTS RBC CT83 /uLNormalProMedica Penelope HospitalComment on above:Performed By: #### CBCA, PINR, BMP, 67184-7, 2284-8, 66407-0, LIVR #### [facility] ([id number]) [address], [address] [place], [place] [address]ALJDF SPECIMEN TYPEPLEURAL FLUIDNormalProMartins Ferry Hospital Hospital Comment on above:Result Comment: RIGHTPerformed By: #### CBCA, PINR, BMP, 55486- 9, 2284-8, 49085-7, LIVR #### [facility] ([id number]) [address], [address] [place], [place] [address]NKANRPJQIGU11 %NormalProSelect Medical Specialty Hospital - Youngstownca [facility]elope HospitalComment on above: Performed By: #### CBCA, PINR, BMP, 72216-1, 2284-8, 78726-8, LIVR #### [facility] ([id number]) [address], [address] [place], [place] [address]HTKUVTBDW CELL CT182 /uLNormalProMedica Penelope HospitalComment on above:Performed By: #### CBCA, PINR, BMP, 64880-5, 2284-8, 19851-1, LIVR #### [facility] ([id number]) [address], [address] [place], [place] [address]BGDQ MARROWon 09-20-4878HIPO MARROWSEE SEPARATE REPORTNormal [facility]Medica [facility] HospitalComment on above:Result Comment: REVIEWED BY Tito ALONZO M.D.Performed By: #### CBCA, PINR, BMP, 66232-8, 2284-8, 54198-6, LIVR #### [facility] ([id number]) [address], [address] [place], [place] [address]OMA AND AUTO DIFFon 03-17-3379Jmmg form neutrophils/100 WBC (Bld)33.0 %NormalProMedica Penelope HospitalComment on above:Performed By: #### CBC, TSHR, 2132-03 #### [facility] ([id number]) [address], [facility] [address] [place], [place] [address]Fuqbjpkfquu distribution width (RBC) [Ratio]20.7 %High11.5-15.0 [facility] HospitalComment on above:Performed By: #### CBC, TSHR, 2132-03 #### [facility] ([id number]) [address], [facility] [address] [place], [place] [address]XQKZPSJQ2+AbnormalNONEProMedica Penelope HospitalComment on above: Performed By: #### CBC, TSHR, 2132-03 #### [facility] ([id number]) [address], [facility] [address] [place], [place] [address]Jcnnkjphse (Bld) [Volume fraction]21.8 %Zak03-50UkfAdlyea [facility] HospitalComment on above:Performed By: #### CBC, TSHR, 2132-03 #### [facility] ([id number]) [address], [facility] [address] [place], [place] [address]Umnjmxxmuv (Bld) [Mass/Vol]7.2 g/dLLow13.0-17.0ProMedica [facility] HospitalComment on above:Performed By: #### CBC, TSHR, 2132-03 #### [facility] ([id number]) [address], [facility] [address] [place], [place] [address]Iwxcwvhkrti (Bld) [#/Vol]0.8 10*3/uLLow1.0-3.5ProMedica [facility] HospitalComment on above:Performed By: #### CBC, TSHR, 2132-03 #### [facility] ([id number]) [address], [address] [place], [place] [address]Bhrishqssed/100 WBC (Bld)12.0 %NormalSamaritan North Health Center Comment on above:Performed By: #### CBC, TSHR, 2132-03 #### [facility] ([id number]) [address], [address] [place], [place] [address]SRT (RBC) [Entitic mass]30.8 dnBjgisv27-76UpdPzakck [place] HospitalComment on above:Performed By: #### CBC, TSHR, 2132-03 #### [facility] ([id number]) [address], [address] [place], [place] [address]EGFP (RBC) [Mass/Vol]32.9 g/iTPitonq26-70KnsNmchkr [place] HospitalComment on above:Performed By: #### CBC, TSHR, 2132-03 #### [facility] ([id number]) [address], [address] [place], [place] [address]KLU (RBC) [Entitic vol]94 gOKyofbq26-961RebZqkgnl [place] HospitalComment on above:Performed By: #### CBC, TSHR, 2132-03 #### [facility] ([id number]) [address], [address] [place], [place] [address]Nkgrquvwrmzykg/100 WBC (Bld)3.0 %NormalSamaritan North Health Center Comment on above:Performed By: #### CBC, TSHR, 2132-03 #### [facility] ([id number]) [address], [address] [place], [place] [address]Okzqvilhe (Bld) [#/Vol]0.1 10*3/uLNormal0-0.9ProSelect Medical Specialty Hospital - Youngstownca [facility]elope HospitalComment on above:Performed By: #### CBC, TSHR, 2132-03 #### [facility] ([id number]) [address], [address] [place], [place] [address]Wutbzggun/100 WBC (Bld)1.0 %NormalProSelect Medical Specialty Hospital - Youngstownca [facility] Comment on above:Performed By: #### CBC, TSHR, 2132-03 #### [facility] ([id number]) [address], [address] [place], [place] [address]WSKXTAOLB7.0 %NormalProMedica Penelope HospitalComment on above: Performed By: #### CBC, TSHR, 2132-03 #### [facility] ([id number]) [address], [address] [place], [place] [address]Esdgykfowts (Bld) [#/Vol]5.2 10*3/uLNormal1.5-6.6ProMedica Penelope HospitalComment on above:Performed By: #### CBC, TSHR, 2132-03 #### [facility] ([id number]) [address], [address] [place], [place] [address]VLJIAFTAJ6+AbnormalNONEProMedica Arauz HospitalComment on above:Performed By: #### CBC, TSHR, 2132-03 #### [facility] ([id number]) [address], [address] [place], [place] [address]Qnrsgboo mean volume (Bld) [Entitic vol]8.1 fLNormal7-12 [facility]elope HospitalComment on above:Performed By: #### CBC, TSHR, 2132-03 #### [facility] ([id number]) [address], [address] [place], [place] [address]Uymroeeqj (Bld) [#/Vol]231 10*3/wYQxihll761-849QqeRvrijq Ara[facility] HospitalComment on above:Performed By: #### CBC, TSHR, 2132-03 #### [facility] ([id number]) [address], [address] [place], [place] [address]PRZKXMDOLOTXG4+AbnormalNONEProMedica Penelope HospitalComment on above:Performed By: #### CBC, TSHR, 2132-03 #### [facility] ([id number]) [address], [address] [place], [place] [address]IUC COUNT2.33 X10E12/LLow4.10-5.70[facility] Comment on above:Performed By: #### CBC, TSHR, 2132-03 #### [facility] ([id number]) [address], [address] [place], [place] [address]GQR FDMEKKNOKD32.0 %NormalProMartins Ferry Hospital HospitalComment on above:Performed By: #### CBC, TSHR, 2132-03 #### [facility] ([id number]) [address], [address] [place], [place] [address]CAQ (Bld) [#/Vol]6.4 10*3/uLNormal4.0-11.0ProSelect Medical Specialty Hospital - Youngstownca Penelope HospitalComment on above:Performed By: #### CBC, TSHR, 2132-03 #### [facility] ([id number]) [address], [address] [place], [place] [address]BYNVROMLOCMLU METABOLIC PANELon 12-46-1429Grswxfv [Mass/Vol]3.6 g/dLNormal3.2-5.3ProMedica Penelope HospitalComment on above:Performed By: #### CBC, TSHR, 2132-03 #### [facility] ([id number]) [address], [address] [place], [place] [address]DYZ [Catalytic activity/Vol]75 U/LAuymvm75-379HezIlencz Penelope HospitalComment on above:Performed By: #### CBC, TSHR, 2132-03 #### [facility] ([id number]) [address], [address] [place], [place] [address]RNZ [Catalytic activity/Vol]7 U/LNormal0-40ProMedica [facility] HospitalComment on above:Performed By: #### KHRIS TSHR, 2132-03 #### [facility] ([id number]) [address], [address] [place], [place] [address]Fhqvi gap [Moles/Vol]5 mmol/LNormal5-15[facility] Comment on above:Performed By: #### KHRIS TSHR, 2132-03 #### [facility] ([id number]) [address], [address] [place], [place] [address]XMX [Catalytic activity/Vol]17 U/LNormal0-41ProMedica [facility] HospitalComment on above:Performed By: #### KHRIS TSHR, 2132-03 #### [facility] ([id number]) [address], [address] [place], [place] [address]Rwvuamefe [Mass/Vol]0.8 mg/dLNormal0.3-1.2ProMedcooper green [facility] hospital [facility]uz HospitalComment on above:Performed By: #### KHRIS TSHR, 2132-03 #### [facility] ([id number]) [address], [address] [place], [place] [address]Ezsjsba [Mass/Vol]8.1 mg/dLLow8.5-10.5PMedina Hospital Comment on above:Performed By: #### KHRIS TSHR, 2132-03 #### [facility] ([id number]) [address], [address] [place], [place] [address]Ngoukfhn [Moles/Vol]102 mmol/MCihjcf07-032WdgFtupxp Arauz HospitalComment on above:Performed By: #### KHRIS TSHR, 2132-03 #### [facility] ([id number]) [address], [address] [place], [place] [address]BV3 [Moles/Vol]28 mmol/QAtfvgm77-11GsjIiqhqc [facility] Comment on above:Performed By: #### KHRIS TSHBrit, 2132-03 #### [facility] ([id number]) [address] [address] [place], [place] [address]Odsyhamzce [Mass/Vol]0.65 mg/dLNormal0.60-1.30Sam[facility] North Health CenterComment on above:Result Comment: METHOD TRACEABLE TO IDMS STANDARD Performed By: #### JAIME PINEDO, 2132-03 #### [facility] ([id number]) [address], [facility] [address] [place], [place] [address]gMKR (CKD-EPI) NON-RACE DEPENDENT>90Normal>59ProCleveland Clinic Lutheran HospitalComment on above:Result Comment: Reported eGFR is based on the CKD-EPI 2020 equation that does not use a race coefficient.Performed By: #### JAIME PINEDO, 2132-03 #### [facility] ([id number]) [address], [address] [place], [place] [address]Afoydkg [Mass/Vol]113 mg/sZHjth10-77WtqDvrfqsSamaritan North Health Center Comment on above:Performed By: #### JAIME PINEDO, 2132-03 #### [facility] ([id number]) [address] [address] [place], [place] [address]Kowmghfmp [Moles/Vol]4.1 mmol/LNormal3.5-5.0[facility] Health CenterComment on above:Performed By: #### KHRIS TSHR, 2132-03 #### [facility] ([id number]) [address], [address] [place], [place] [address]Eiwzzuo [Mass/Vol]6.7 g/dLNormal6.0-8.0[facility] Comment on above:Performed By: #### KHRIS TSHR, 2132-03 #### [facility] ([id number]) [address], [address] [place], [place] [address] [Moles/Vol]135 mmol/TNmlvcf762-138TxhOrgyik [place] HospitalComment on above:Performed By: #### CBC, TSHR, 2132-03 #### [facility] ([id number]) [address] [facility], [address] [place], [place] [address]Vcxa nitrogen [Mass/Vol]11 mg/dLNormal5ProCleveland Clinic Lutheran HospitalComment on above:Performed By: #### CBC, TSHR, 2132-03 #### [facility] ([id number]) [address] [place] [address], [address] [place], [place] [address]Nzozevnuxp 80-48-2312HluvzftdYdehnfZqcIlzpcg [facility] Comment on above:Result Comment: [facility] [address] [place] [address] Cytology Consultation Patient Name:PENNY ORDAZ:1960 (Age: 63)Gender:MTaken:09/10/2024Reported:09/13/2024 14:09Physician(s):Wendi Lai M.D. ([phone])Copy To:Gianluca Mahan [facility] Clinicession #:[id number]. Rec. 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 Comparison of this result to serum or plasma is recommended.Performed By: #### CBC, TSHR, 2132-03 #### [facility] ([id number]) [address], [address] [place], [place] [address]YXFUB CULTUREon 08-50-6955Cwqjvkaw identified Aer cx Nom (Body fld)GRAM STAIN WHITE BLOOD CELLS PRESENT NO ORGANISMS SEEN ON CONCENTRATED SMEAR CULTURE RESULTS NO GROWTH 5 DAYSNormalSamaritan North Health CenterComment on above:Performed By: #### CBC, TSHR, 2132-03 #### [facility] ([id number]) [address], [address] [place], [place] [address]FTQKX LDHon 90-69-1819TCLRS LQK503 U/LNormalProMedica Penelope HospitalComment on above:Result Comment: The reference interval and other method performance specifications are unavailable for this body fluid. Comparison of this result to serum or plasma is recommended.Performed By: #### CBC, TSHR, 2132-03 #### [facility] ([id number]) [address], [address] [place], [place] [address]PP SPECIMEN TYPEFLUIDNormalProCleveland Clinic Lutheran HospitalComment on above:Result Comment: PLEURAL FLUID RIGHTPerformed By: #### CBC, TSHR, 2132-03 #### [facility] ([id number]) [address], [address] [place], [place] [address]PVDBL T. PROTEINon 93-67-7480EAFAG TOT. PROTEIN2.1 g/dLNormSumma Health Akron CampusComment on above:Result Comment: The reference interval and other method performance specifications are unavailable for this body fluid. Comparison of this result to serum or plasma is recommended.Performed By: #### CBC, TSHR, 2132-03 #### [facility] ([id number]) [address], [address] [place] [address]CA SPECIMEN TYPEFLUIDOhioHealth Grove City Methodist HospitalComment on above:Result Comment: PLEURAL FLUID RIGHTPerformed By: #### CBC, TSHR, 2132-03 #### [facility] ([id number]) [address], [address] [place] [address]MOXGA TRIGLYCERIDEon 77-89-7356TFMTC XPIQNMLCIBEV96 mg/dLNoMercy Health Clermont HospitalComment on above:Result Comment: The reference interval and other method performance specifications are unavailable for this body fluid. Comparison of this result to serum or plasma is recommended.Performed By: #### CBCA, PINR, BMP, 01131-4, 2284-8, 48268-1, LIVR #### [facility] ([id number]) [address], [address] [place] [address]ZZMR SPECIMEN TYPEFLUWilson HealthComment on above:Result Comment: PLEURAL FLUID RIGHTPerformed By: #### CBCA, PINR, BMP, 09076-6, 2284-8, 42700-0, LIVR #### [facility] ([id number]) [address], [address] [place] [address]Mcad cytometry specialist review Jian (Unsp spec) [Interp]on 32-74-0930WMKR CYTOMETRY BMSEE [facility]ATE [facility] Comment on above:Result Comment: REVIEWED BY Tito ALONZO M.D.Performed By: #### CBCA, PINR, BMP, 82622-9, 2284-8, 51399-5, LIVR #### [facility] ([id number]) [address], [address] [place], [place] [address]Xnvdoee Glucometer (BldC) [Mass/Vol]on 46-40-6937Qaktsuq [Mass/Vol]97 mg/vDEqhhwv53-97BscXcnpwe [place]edo HospitalGlucose [Mass/Vol]99 mg/dL Oyitsg09-93IsdEfkxcbCleveland Clinic Lutheran HospitalGlucose [Mass/Vol]155 mg/lSDmie75-72 ProMedicWooster Community HospitalKaryotype Nom (BM)on 38-46-6046LSPGOGVOQU BONE MARROW SEE COMMENTS 09/20/2024 10:41 AMNormalProCleveland Clinic Lutheran HospitalComment on above: Result Comment: NOTE Test Result [...] testing process was performed at [facility] site 958745, 157062, 306926. Released By Angie Vuong D.O. Test Performed by: [facility] - [address] [address] Masonry Instructor: Alexandre Crain Ph.D.; CLIA# [id number] By: #### CBCA, PINR, BMP, 23329-7, 4-8, 99544-4, LIVR #### [facility] ([id number]) [address] [facility] [address] [place], [place] [address]ZYS [Catalytic activity/Vol]on 03-02-8110IUF353 U/ADarb299-423 ProMedica Mercy HealthComment on above:Performed By: #### CBC, TSHR, 2132-03 #### [facility] ([id number]) [address] [facility] [address] [place], [place] [address]Bfingnofvo comment Jian (Report)on 21-63-3589UELSZJGN LAB TEST Sent to reference labNormalProSelect Medical Specialty Hospital - Youngstownca Mercy HealthComment on above:Performed By: #### CBCA, PINR, BMP, 09244-2, 2283-8, 09984-4, LIVR #### [facility] ([id number]) [address] [facility] [address] [place], [place] [address]HZYZPLLODZnv 14-25-5744Ncwfvooew [Mass/Vol]3.1 mg/dLNormal 2.4-4.9ProSelect Medical Specialty Hospital - Youngstownca Mercy HealthComment on above:Performed By: #### CBC, TSHR, 2132-03 #### [facility] ([id number]) [address] [facility], [address] [place], [place] [address]HTXZCDZ AND INRon 62-15-5563XDY Coag (PPP) [Relative time]1.4 {INR}High0.8-1.1PMedina HospitalComment on above:Performed By: #### CBC, TSHR, 2132-03 #### [facility] ([id number]) [address] [place] [address], [address] [place], [place] [address]LP Coag (PPP) [Time]16.3 sHigh9.8-13.2PMedina Hospital Comment on above:Performed By: #### CBC, TSHR, 2132-03 #### [facility] ([id number]) [address] [place] [address], [address] [place], [place] [address]Kjlunfsocznqo IA [Mass/Vol]on 33-06-3596JWMWSJPABMXFZ5.10 ng/mL High<0.05ProCleveland Clinic Lutheran HospitalComment on above:Result Comment: NOTE <0.50 ng/mL - Low risk of severe sepsis and/or septic shock. <2.00 ng/mL - Recommend retesting within 6-24 hours. >2.00 ng/mL - High risk of sepsis and/or septic shock.Performed By: #### CBC, TSHR, 2132-03 #### [facility] ([id number]) [address] [facility], [address] [place], [place] [address]Pyfvsmqq Pathologyon 74-28-2279Xvsxvmij PathologyNormalProCleveland Clinic Lutheran HospitalComment on above:Result Comment: [facility] [address] [place] [address] Bone Marrow Consultation Patient Name:PENNY ORDAZ:1960 (Age: 63)Gender:MTaken:09/10/2024Reported:09/15/2024Physician(s):Yeny Tyson ([phone])Copy To:Fredrick Sousa, [facility] Clinicession #:[id number]. Rec. #:[id number]: #[id number] Final Pathologic Diagnosis C/W PRIMARY MYELOFIBROSIS in [...] circulating nRBCs. Correlation with the myeloproliferative neoplasm spotter driver mutations is appreciated. There is no evidence of lymphoma. Report Electronically Signed Out watkins/09/15/2024Arcenio Alonzo MD Flow Cytometry-Surg/BM/NG Date Reported: 09/15/2024 The right up with 5% myeloblasts Flow cytometric analysis of the marrow aspirate cells demonstrates maturing hematopoietic elements.Blasts are slightly increased (5%) on CD45/side scatter analysis or CD34 staining. No aberrant patterns of antigen acquisition are identified on maturing myeloid cells. [place] on the lymphoid population demonstrates a mixed population of phenotypically unremarkable T-cells, polyclonal B-cells, and natural killer cells, without a detectable monoclonal population. No significant plasma cell population is identified. Immunophenotyping antibodies tested: CD2, CD3, CD4, CD5, CD7, CD8, CD10, CD13, CD16, CD19, CD20, CD23, CD33, CD34, CD38, CD43, CD45, CD56, CD117, CD123, CD138, TRCB1, [place], and Lambda. Immunophenotyping Comment: Immunophenotyping has been used in this diagnostic evaluation. This test was developed and its performance characteristics determined by the [facility] Department. It has not been [...] Out Arcenio Alonzo MD Interpretation performed at [facility], [address] [place] [address], License number: [id number]. Clinical History Concern for lymphoma, CT abdomen pelvis with bulky retroperitoneal, right iliac, inguinal lymphadenopathy with splenomegaly. Gross Description 1. Received in B+, labeled ORDAZ, right iliac crest BM clot , is a 1.9 x 0.7 x 0.1 cm aggregateof dark red-brown, clotted hemorrhagic material. The specimen is submitted entirely in a single cassette. (1,ns,Y87-0285-9, m5)MW 2. Received in B+, labeled ORDAZ, right iliac crest BMBX , is a cylindrical bone core biopsy, 0.8 in length x 0.3 cm in diameter. The specimen is submitted entirely in a single cassette, following brief decalcification in Rapid-Elfego Immuno. (1,ns,W13-8976-0, m5)MW mxw/09/10/2024SAN Microscopic Findings Clinical History: Retroperitoneal [...] (0-4%) 2. (more content not included)...URIC ACIDon 02-84-0524Bovkt [Mass/Vol] 6.1 mg/dLNormal2.6-7.2PMedina HospitalComment on above:Performed By: #### KHRIS, TSHR, 2132-03 #### [facility] ([id number]) [address], [address] [place], [place] [address]LZUFB METABOLIC PANLon 14-10-9531Thebx gap [Moles/Vol]3 mmol/L Low5-15ProCleveland Clinic Lutheran HospitalComment on above:Performed By: #### KHRIS TSHR, 2132-03 #### [facility] ([id number]) [address], [address] [place], [place] [address]Hlxtweq [Mass/Vol]8.2 mg/dLLow8.5-10.5PMedina Hospital Comment on above:Performed By: #### KHRIS TSHR, 2132-03 #### [facility] ([id number]) [address], [address] [place], [place] [address]Lkdyypol [Moles/Vol]104 mmol/NAebzvf45-996MttAmljoo [facility] HospitalComment on above:Performed By: #### JAIME PINEDO, 2132-03 #### [facility] ([id number]) [address], [address] [place], [place] [address]CI5 [Moles/Vol]28 mmol/XOeaeau74-38TawOxtzenMedina Hospital Comment on above:Performed By: #### JAIME PINEDO, 2132-03 #### [facility] ([id number]) [address], [address] [place], [place] [address]Eabcxjwqbg [Mass/Vol]0.63 mg/dLNormal0.60-1.30[facility] North Health CenterComment on above:Result Comment: METHOD TRACEABLE TO IDMS STANDARD Performed By: #### JAIME PINEDO, 2132-03 #### [facility] ([id number]) [address], [address] [place], [place] [address]fTWU (CKD-EPI) NON-RACE DEPENDENT>90Normal>59ProCleveland Clinic Lutheran HospitalComment on above:Result Comment: Reported eGFR is based on the CKD-EPI 2020 equation that does not use a race coefficient.Performed By: #### JAIME PINEDO, 2132-03 #### [facility] ([id number]) [address], [address] [place], [place] [address]Mmvjved [Mass/Vol]112 mg/fRTfrs98-46YecWrvfdcSamaritan North Health Center Comment on above:Performed By: #### JAIME PINEDO, 2132-03 #### [facility] ([id number]) [address] [address] [place], [place] [address]Dlpxfoeos [Moles/Vol]4.2 mmol/LNormal3.5-5.0ProCleveland Clinic Lutheran HospitalComment on above:Performed By: #### JAIME PINEDO, 2132-03 #### [facility] ([id number]) [address], [address] [place], [place] [address]Lnkqis [Moles/Vol]135 mmol/MGvkuuu847-864DozSkzjez Arauz HospitalComment on above:Performed By: #### CBCJAIME, 2132-03 #### [facility] ([id number]) [address] [address] [place], [place] [address]Hudg nitrogen [Mass/Vol]12 mg/dLNormal5-27ProMedica Penelope HospitalComment on above:Performed By: #### JAIME PINEDO, 2132-03 #### [facility] ([id number]) [address], [facility] [address] [place], [place] [address]UMR AND AUTO DIFFon 60-17-2515HEIPXDJP BASOPHIL0.1 X10E9/LNormal 0.0-0.2ProMedica Penelope HospitalComment on above:Performed By: #### JAIME PINEDO, 2132-03 #### [facility] ([id number]) [address], [facility] [address] [place], [place] [address]Etjy form neutrophils/100 WBC (Bld)5.8 %NormalProSelect Medical Specialty Hospital - Youngstownca Penelope HospitalComment on above:Performed By: #### JAIME PINEDO, 2132-03 #### [facility] ([id number]) [address], [address] [address]Mftfljwbu/100 WBC (Bld)1.0 %NormalProSelect Medical Specialty Hospital - Youngstownca [facility] Comment on above:Performed By: #### JAIME PINEDO, 2132-03 #### [facility] ([id number]) [address], [facility] [address] [place], [place] [address]Vgcemznxzas distribution width (RBC) [Ratio]20.4 %High11.5-15.0 ProMedica Penelope HospitalComment on above:Performed By: #### JAIME PINEDO, 2132-03 #### [facility] ([id number]) [address], [facility] [address] [place], [place] [address]Tquwfilqkk (Bld) [Volume fraction]22.1 %Wzp86-29FnnHdptki Penelope HospitalComment on above:Performed By: #### CBC, TSHR, 2132-03 #### [facility] ([id number]) [address], [address] [place], [place] [address]Ytexuawoov (Bld) [Mass/Vol]7.2 g/dLLow13.0-17.0ProSelect Medical Specialty Hospital - Youngstownca Penelope HospitalComment on above:Performed By: #### CBC, TSHR, 2132-03 #### [facility] ([id number]) [address], [address] [place], [place] [address]Jgfhpufbmoq (Bld) [#/Vol]0.4 10*3/uLLow1.0-3.5ProMedica Penelope HospitalComment on above:Performed By: #### CBC, TSHR, 2132-03 #### [facility] ([id number]) [address], [address] [place], [place] [address]Lljgihdelmc/100 WBC (Bld)6.7 %NormalProMartins Ferry Hospital Hospital Comment on above:Performed By: #### CBC, TSHR, 2132-03 #### [facility] ([id number]) [address], [address] [place], [place] [address]UKA (RBC) [Entitic mass]30.2 flRxyfvy82-61DruDtitut Penelope HospitalComment on above:Performed By: #### CBC, TSHR, 2132-03 #### [facility] ([id number]) [address], [address] [place], [place] [address]NLQN (RBC) [Mass/Vol]32.5 g/iXYdeqqv18-47UkxTcehov Penelope HospitalComment on above:Performed By: #### CBC, TSHR, 2132-03 #### [facility] ([id number]) [address], [address] [place], [place] [address]LCJ (RBC) [Entitic vol]93 uUQdocxz26-622AzvCqwpax Penelope HospitalComment on above:Performed By: #### CBC, TSHR, 2132-03 #### [facility] ([id number]) [address], [address] [place], [place] [address]Hfrbeuqne (Bld) [#/Vol]0.1 10*3/uLNormal0-0.9ProMedica Arauz HospitalComment on above:Performed By: #### CBC, TSHR, 2132-03 #### [facility] ([id number]) [address], [address] [place], [place] [address]Dikhihbvc/100 WBC (Bld)1.0 %NormalProMedica Arauz Hospital Comment on above:Performed By: #### CBC, TSHR, 2132-03 #### [facility] ([id number]) [address], [address] [place], [place] [address]WPZDJNJPL1.0 %NormalProMedica Arauz HospitalComment on above: Performed By: #### CBC, TSHR, 2132-03 #### [facility] ([id number]) [address], [address] [place], [place] [address]Siihvfnwobp (Bld) [#/Vol]5.9 10*3/uLNormal1.5-6.6ProMedica Arauz HospitalComment on above:Performed By: #### CBC, TSHR, 2132-03 #### [facility] ([id number]) [address], [address] [place], [place] [address]CAMBTXIUT6+AbnormalNONEProMedica Arauz HospitalComment on above:Performed By: #### CBC, TSHR, 2132-03 #### [facility] ([id number]) [address], [address] [place], [place] [address]Xxkfqknu mean volume (Bld) [Entitic vol]7.7 fLNormal7-12 ProMedica Arauz HospitalComment on above:Performed By: #### CBC, TSHR, 2132-03 #### [facility] ([id number]) [address], [address] [place], [place] [address]Tyhcqbipy (Bld) [#/Vol]236 10*3/pZLuafdy047-670FfcMrcucg Penelope HospitalComment on above:Performed By: #### CBC, TSHR, 2132-03 #### [facility] ([id number]) [address], [address] [place], [place] [address]JTY COUNT2.38 X10E12/LLow4.10-5.70[facility] Comment on above:Performed By: #### CBC, TSHR, 2132-03 #### [facility] ([id number]) [address], [address] [place] [address] ZJQNAURJMF87.5 %NormalProSelect Medical Specialty Hospital - Youngstownca Penelope HospitalComment on above:Performed By: #### CBC, TSHR, 2132-03 #### [facility] ([id number]) [address], [address] [place] [address]TDLGJ GRANULATION1+AbnormalNONEProMedica Penelope HospitalComment on above:Performed By: #### CBC, TSHR, 2132-03 #### [facility] ([id number]) [address], [address] [place] [address]TAD (Bld) [#/Vol]6.5 10*3/uLNormal4.0-11.0ProSelect Medical Specialty Hospital - Youngstownca Penelope HospitalComment on above:Performed By: #### CBC, TSHR, 2132-03 #### [facility] ([id number]) [address], [address] [place] [address]BZ CHEST W CONTon 16-16-2814CR CHEST W CONTCT CHEST W CONT Study: Contrast-enhanced CT of the chest dated 09/08/2024 2:38 PM. Indication: Lymphadenopathy. Comparison: None . Technique: After the injection of intravenous nonionic iodinated contrast, axial CT of the chest was performed from the lung apices to the hemidiaphragms. 2-D reformats were obtained. [facility] dose [facility], iterative reconstruction, and/or [...] Micheal Harmon MD on 09/09/2024 9:05 AMNormalProMedica Mercy HealthHBV core Ab [facility] 55-23-0903HRLQ HBcNon-ReactiveNormalNRCTProSelect Medical Specialty Hospital [facility] Youngstownca Mercy HealthComment on above:Result Comment: NEW TEST METHODPerformed By: #### CBC, TSHR, 2132-9 #### [facility] ([id number]) [address], [address] [place], [place] [address]ZMV surface Ab IA Qnon 36-05-4376Fiay HBs quant.>500.00Normal [facility] Health CenterComment on above:Result Comment: NOTE Vaccinated: >=10.00 mIU/mL, Positive (Immune) Unvaccinated: <10.00 mIU/mL, Negative (Not Immune) Interpretive values have changed due to implementation of a new method. Values run higher than previous method.Performed By: #### CBC, TSHR, 2132-03 #### [facility] ([id number]) [address], [address] [place], [place] [address]OHS surface Ag IA Qlon 95-06-4038KRVRUNPGV B SURF AGNon-Reactive NormalNRCTProSelect Medical Specialty Hospital - Youngstownca Mercy HealthComment on above:Result Comment: NEW TEST METHODPerformed By: #### CBC, TSHR, 2132-03 #### [facility] ([id number]) [address], [address] [place], [place] [address]ODQQZLTYAtd 35-82-9599Uaiohbcbi [Mass/Vol]2.0 mg/dLNormal1.8-2.6 [facility] Health CenterComment on above:Performed By: #### CBC, TSHR, 2132-03 #### [facility] ([id number]) [address], [address] [place], [place] [address]WQ BRAIN W WO CONTon 71-57-1426FC BRAIN W WO CONTMR BRAIN W WO [...] Finalized by David Stuart on 09/09/2024 2:26 PMNormalProMartins Ferry Hospital HospitalPROTIME AND INRon 71-17-7190JSE Coag (PPP) [Relative time]1.4 {INR}High 0.8-1.1PMorrow County Hospital HospitalComment on above:Performed By: #### CBC, TSHR, 2132-03 #### [facility] ([id number]) [address], [address] [place], [place] [address]VZ Coag (PPP) [Time]16.6 sHigh9.8-13.2PMedina Hospital Comment on above:Performed By: #### CBC, TSHR, 2132-03 #### [facility] ([id number]) [address], [address] [place], [place] [address]Nudbawzstne Ql (U)on 17-16-0738XB3 ANTIBODY<0.2Normal<1.0 ProMedicWooster Community HospitalComment on above:Performed By: #### CBC, TSHR, 2132-03 #### [facility] ([id number]) [address], [address] [place], [place] [address]PZCUC METABOLIC PANLon 84-09-7046Amuxl gap [Moles/Vol]8 mmol/L Normal5-15ProCleveland Clinic Lutheran HospitalComment on above:Performed By: #### CBCA, PINR, BMP, 08588-4, 2284-8, 68245-1, LIVR #### [facility] ([id number]) [address], [address] [place], [place] [address]Homjehe [Mass/Vol]8.6 mg/dLNormal8.5-10.5PMedina HospitalComment on above:Performed By: #### CBCA, PINR, BMP, 62624-3, 2284-8, 87317-9, LIVR #### [facility] ([id number]) [address], [address] [place], [place] [address]Utvmdnrc [Moles/Vol]104 mmol/HXajspq33-014RrmKllkxl [facility] HospitalComment on above:Performed By: #### CBCA, PINR, BMP, 64099-1, 2284-8, 78699-3, LIVR #### [facility] ([id number]) [address], [address] [place], [place] [address]VN8 [Moles/Vol]23 mmol/MZdxyfx81-12CxfYratwpMedina Hospital Comment on above:Performed By: #### CBCA, PINR, BMP, 41437-7, 2284-8, 88941-2, LIVR #### [facility] ([id number]) [address], [address] [place], [place] [address]Hnvyhbvfar [Mass/Vol]0.67 mg/dLNormal0.60-1.30ProCleveland Clinic Lutheran HospitalComment on above:Result Comment: METHOD TRACEABLE TO IDMS STANDARD Performed By: #### CBCA, PINR, BMP, 59818-0, 2284-8, 63995-1, LIVR #### [facility] ([id number]) [address], [address] [place], [place] [address]kTOH (CKD-EPI) NON-RACE DEPENDENT>90Normal>59ProCleveland Clinic Lutheran HospitalComment on above:Result Comment: Reported eGFR is based on the CKD-EPI 2020 equation that does not use a race coefficient.Performed By: #### CBCA, PINR, BMP, 62168-6, 2284-8, 29972-6, LIVR #### [facility] ([id number]) [address], [address] [place], [place] [address]Bpymoic [Mass/Vol]86 mg/aZWvwvxr15-08AzwBuqgyvSamaritan North Health Center Comment on above:Performed By: #### CBCA, PINR, BMP, 62525-2, 2284-8, 67411-6, LIVR #### [facility] ([id number]) [address], [address] [place], [place] [address]Rreltfwae [Moles/Vol]4.4 mmol/LNormal3.5-5.0ProMedica Arauz HospitalComment on above:Performed By: #### CBCA, PINR, BMP, 96496-2, 2283-8, 81224-6, LIVR #### [facility] ([id number]) [address], [address] [place], [place] [address]Lgjhzk [Moles/Vol]135 mmol/JExguup115-451TgiUivivr Penelope HospitalComment on above:Performed By: #### CBCA, PINR, BMP, 84594-9, 2283-8, 41275-3, LIVR #### [facility] ([id number]) [address], [address] [place], [place] [address]Zsqs nitrogen [Mass/Vol]13 mg/dLNormal5-27ProMedica Penelope HospitalComment on above:Performed By: #### CBCA, PINR, BMP, 85434-5, 2283-8, 49909-8, LIVR #### [facility] ([id number]) [address], [address] [place], [place] [address]XWW AND AUTO DIFFon [id number] BASOPHIL0.1 X10E9/LNormal 0.0-0.2ProMedica Arauz HospitalComment on above:Performed By: #### CBCA, PINR, BMP, 20656-1, 2283-8, 86910-9, LIVR #### [facility] ([id number]) [address], [address] [place], [place] [address]GVMLAVRL NEUTROPHIL6.0 X10E9/LNormal1.5-6.6ProMedica [facility]uz HospitalComment on above:Performed By: #### CBCA, PINR, BMP, 81490-1, 2284-8, 41755-2, LIVR #### [facility] ([id number]) [address], [address] [place], [place] [address]Kmszmztqj/100 WBC (Bld)1.2 %NormalSamaritan North Health Center Comment on above:Performed By: #### CBCA, PINR, BMP, 02419-9, 2284-8, 08456-0, LIVR #### [facility] ([id number]) [address], [address] [place], [place] [address]Oauznsjidin (Bld) [#/Vol]0.0 10*3/uLNormal0.0-0.4ProMedica Penelope HospitalComment on above:Performed By: #### CBCA, PINR, BMP, 30292-5, 2284-8, 12295-7, LIVR #### [facility] ([id number]) [address], [address] [place], [place] [address]Amcvdnvfqfq/100 WBC (Bld)0.1 %NormalSamaritan North Health Center Comment on above:Performed By: #### CBCA, PINR, BMP, 87553-8, 2284-8, 06043-1, LIVR #### [facility] ([id number]) [address], [address] [place], [place] [address]Ijzjjxsxgni distribution width (RBC) [Ratio]21.0 %High11.5-15.0 [facility] Penelope HospitalComment on above:Performed By: #### CBCA, PINR, BMP, 61062-0, 2284-8, 54672-6, LIVR #### [facility] ([id number]) [address], [address] [place], [place] [address]FJEAECYH3+AbnormalNONEProMedica Penelope HospitalComment on above: Performed By: #### CBCA, PINR, BMP, 27634-3, 2284-8, 60391-5, LIVR #### [facility] ([id number]) [address], [address] [place], [place] [address]Byjmexuxkp (Bld) [Volume fraction]21.7 %Emf29-50XbqZobgkf [place] HospitalComment on above:Performed By: #### CBCA, PINR, BMP, 92922-7, 2284-8, 85746-9, LIVR #### [facility] ([id number]) [address], [address] [place], [place] [address]Bzuvfjxjtn (Bld) [Mass/Vol]7.4 g/dLLow13.0-17.0ProMartins Ferry Hospital HospitalComment on above:Performed By: #### CBCA, PINR, BMP, 15028-5, 2284-8, 06251-8, LIVR #### [facility] ([id number]) [address], [address] [place], [place] [address]Uzqukjlcodm (Bld) [#/Vol]0.6 10*3/uLLow1.0-3.5ProMedica Penelope HospitalComment on above:Performed By: #### CBCA, PINR, BMP, 61436-2, 2284-8, 91657-0, LIVR #### [facility] ([id number]) [address], [address] [place], [place] [address]Kducewgkgkd/100 WBC (Bld)8.2 %NormalProMartins Ferry Hospital Hospital Comment on above:Performed By: #### CBCA, PINR, BMP, 86167-6, 2284-8, 15150-0, LIVR #### [facility] ([id number]) [address], [address] [place], [place] [address]SER (RBC) [Entitic mass]31.4 ouJnmrvc28-44GheQpakjr [place] HospitalComment on above:Performed By: #### CBCA, PINR, BMP, 13690-1, 2284-8, 24741-6, LIVR #### [facility] ([id number]) [address], [address] [place], [place] [address]YOMG (RBC) [Mass/Vol]34.1 g/lKUevhie96-15DlhYpplpf Penelope HospitalComment on above:Performed By: #### CBCA, PINR, BMP, 35473-1, 2284-8, 34230-8, LIVR #### [facility] ([id number]) [address], [address] [place], [place] [address]WDR (RBC) [Entitic vol]92 hKSljktw12-505GcmSmstny Penelope HospitalComment on above:Performed By: #### CBCA, PINR, BMP, 82910-2, 2284-8, 90271-6, LIVR #### [facility] ([id number]) [address], [address] [place], [place] [address]Vlvytaffb (Bld) [#/Vol]0.4 10*3/uLNormal0-0.9ProSelect Medical Specialty Hospital - Youngstownca Penelope HospitalComment on above:Performed By: #### CBCA, PINR, BMP, 89274-1, 2284-8, 54078-3, LIVR #### [facility] ([id number]) [address], [address] [place], [place] [address]Xiieadefu/100 WBC (Bld)5.7 %NormalSamaritan North Health Center Comment on above:Performed By: #### CBCA, PINR, BMP, 49355-0, 2284-8, 56791-6, LIVR #### [facility] ([id number]) [address], [address] [place], [place] [address]Zuktyopthnf/100 WBC (Bld)84.8 %NormalSamaritan North Health Center Comment on above:Performed By: #### CBCA, PINR, BMP, 34724-5, 2284-8, 53735-2, LIVR #### [facility] ([id number]) [address], [address] [place] [address]PPSZNSGKP6+AbnormalNONEProMedica Arauz HospitalComment on above:Performed By: #### CBCA, PINR, BMP, 42404-9, 2284-8, 36653-9, LIVR #### [facility] ([id number]) [address], [address] [place] [address]Adspwogc mean volume (Bld) [Entitic vol]7.4 fLNormal7-12 [facility] HospitalComment on above:Performed By: #### CBCA, PINR, BMP, 20329-4, 2284-8, 64205-1, LIVR #### [facility] ([id number]) [address], [address] [place] [address]Dvhajnldv (Bld) [#/Vol]245 10*3/kNCgjbnf346-040WrxIyckjo [facility] HospitalComment on above:Performed By: #### CBCA, PINR, BMP, 81545-6, 2284-8, 53706-2, LIVR #### [facility] ([id number]) [address], [address] [place] [address]BCM COUNT2.36 X10E12/LLow4.10-5.70[facility] Comment on above:Performed By: #### CBCA, PINR, BMP, 31257-5, 2284-8, 41701-3, LIVR #### [facility] ([id number]) [address], [address] [place] [address]HJYNISUR9+AbnormalNONEProMedica Arauz HospitalComment on above: Performed By: #### CBCA, PINR, BMP, 00716-3, 2284-8, 10725-5, LIVR #### [facility] ([id number]) [address], [address] [place], [place] [address]HWH (Bld) [#/Vol]7.1 10*3/uLNormal4.0-11.0Sam[facility] North Health CenterComment on above:Performed By: #### CBCA, PINR, BMP, 03483-8, 2284-8, 98864-4, LIVR #### [facility] ([id number]) [address] [place] [address], [address] [place], [place] [address]Xmusbeapd Ab Qlon 36-35-3125LSJGGZMDP AB IGG<0.2Normal<1.0 [facility] Health CenterComment on above:Performed By: #### CMP, 92541-3 #### [facility] ([id number]) [address] [place] [address], [address] [place], [place] [address]Xqjhetjj Pathologyon 58-71-0089Bjbwyjzm PathologyNormalProCleveland Clinic Lutheran HospitalComment on above:Result Comment: [facility] [address] [place] [address] Clinical Pathology Report Patient Name:PENNY ORDAZ:1960 (Age: 63)Gender:MTaken:09/08/2024Reported:09/10/2024Physician(s):Yeny Tyson ([phone])Copy To: Rec. 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 Mild hypoalbuminemia. Report Electronically Signed Out df/09/10/2024Asher Glez MD Interpretation [facility] [place] [address], License number: [id number]. Clinical History D64.9, R59.1, R16.1. SERUM PROTEIN ELECTROPHORESIS SAMPLE NO: [id number] ELECTROPHORETIC FRACTION CONCENTRATIONS (g/dL) PATIENT REFERENCE RANGE [...] IgA : 269 IgM : 126 Free [place]: 4.45 Free Lambda: 2.47 Free [place]/Lambda ratio: 1.80 Specimen(s) Received 1: Serum Protein Electrophoresis 2: Serum IEP Fee Codes(s): 1; 20669-72 2; 74190-96Kvxjqewo Pathology Blood Smear Reviewon 19-33-1627Wkomodtr Pathology Blood Smear ReviewNoalSamaritan North Health CenterComment on above:Result Comment: [facility] [address] [place] [address] Clinical Pathology Report Patient Name:PENNY ORDAZ:1960 (Age: 63)Gender:MTaken:09/08/2024Reported:09/12/2024Physician(s):Wendi Lai M.D. ([phone])Copy To: Rec. #:[id number]: #[id number] Final Pathologic Diagnosis PERIPHERAL BLOOD: - Normochromic, [...] rxd/09/12/2024Monico Ayala MD Interpretation performed at [facility], [address] [place] [address], License number: [id number]. Clinical History D64.9 BLOOD SMEAR EVALUATION CBC (09/08/2024 0308): WBC = 7.1 X10E9/L; HGB = 7.4 g/dL; HCT = 21.7%; MCV = 92 fL; PLT = 245 X10E9/L Specimen(s) Received Blood Smear Review Fee Codes(s): 1; [address]DPO double strand Ab Qn (S)on 64-37-6790WFKDAY STRANDED DNA<1Normal<5 [facility] Health CenterComment on above:Result Comment: Interpretation-------- <5 Negative 5-9 Indeterminate >9 Positive Performed By: #### CMP, 37234-8 #### [facility] ([id number]) [address] [place] [address], [facility] [address] [place], [place] [address]ECUY CYTOMETRYon 40-38-4061IJMK CYTOMETRYSEE SEPARATE REPORT NormalProMedica Mercy HealthComment on above:Result Comment: REVIEWED BY Tito ALONZO M.D.Performed By: #### CBCA, PINR, BMP, 28214-9, 2284-8, 50717-6, LIVR #### [facility] ([id number]) [address] [place] [address], [facility] [address] [place], [place] [address]Zqyvzl [Mass/Vol]on 78-03-0961AOOYO ACID9.1 ng/mLNormal>5.8 [facility] CenterComcovenant medical center on above:Result Comment: NEW REFERENCE RANGE Performed By: #### CBCA, PINR, BMP, 56337-2, 2284-8, 86726-0, LIVR #### [facility] ([id number]) [address] [place] [address] [address] [place] [address]Tntxamfcxkt Nephelometry [Mass/Vol]on 13-58-7913HZHEFLCSQYE61 mg/gEHxevzx74-864FkaSobkpy [place] HospitalComment on above:Performed By: #### PERCY, 85183-1 #### [facility] ([id number]) [address], [address] [place], [place] [address]QYUZMIJXHPXWMIZQDLEXK FOR THERAPY MONITORINGon 72-81-2971LLVQ KELSI/LAMBD RATIO1.33Skyv6.26-1.65ProMart[facility]erry Hospital HospitalComment on above: Performed By: #### PERCY, 08169-1 #### [facility] ([id number]) [address], [address] [place], [place] [address]VEEY KAPPA LT CHAINS4.45 mg/dLHigh0.33-1.94ProMartins Ferry Hospital HospitalComment on above:Performed By: #### PRECY, 40991-2 #### [facility] ([id number]) [address], [address] [place], [place] [address]FBYM LAMBDA LT CHAINS2.47 mg/dLNormal0.57-2.63ProCleveland Clinic Lutheran HospitalComment on above:Performed By: #### PERCY, 23878-9 #### [facility] ([id number]) [address], [address] [place], [place] [address]TeT [Mass/Vol]269 mg/kXMeulfo23-325KfvPvddgz [facility] Comment on above:Performed By: #### PERCY, 13817-6 #### [facility] ([id number]) [address], [address] [place], [place] [address]PdV [Mass/Vol]1236 mg/fVLyukis267-1153McuNhwtbm [facility] Comment on above:Performed By: #### PERCY, 44983-3 #### [facility] ([id number]) [address], [address] [place], [place] [address]TbH [Mass/Vol]126 mg/hZPpbvpe21-472YpaNaslix [facility] Comment on above:Performed By: #### PERCY, 27972-9 #### [facility] ([id number]) [address], [address] [place], [place] [address]HQECSF PROFILE INTERPSEE SEPARATE REPORTNormalProMedica Arauz HospitalComment on above:Performed By: #### PERCY, 78354-2 #### [facility] ([id number]) [address], [address] [place], [place] [address]HHC [Catalytic activity/Vol]on 24-01-7257BTW529 U/IRttg962-389 [facility] HospitalComment on above:Performed By: #### PERCY, 99435-3 #### [facility] ([id number]) [address], [address] [place], [place] [address]ROOKP PANELon 99-81-4714Verzmhl [Mass/Vol]3.7 g/dLNormal3.2-5.3 [facility] HospitalComment on above:Performed By: #### PERCY, 76238-3 #### [facility] ([id number]) [address], [address] [place], [place] [address]VZB [Catalytic activity/Vol]87 U/RZuzwhq61-170TpzNhqcqz [facility] HospitalComment on above:Performed By: #### PERCY, 11081-7 #### [facility] ([id number]) [address], [address] [place], [place] [address]XKC [Catalytic activity/Vol]6 U/LNormal0-40[facility] HospitalComment on above:Performed By: #### PERCY, 35571-0 #### [facility] ([id number]) [address], [address] [place], [place] [address]MIJ [Catalytic activity/Vol]24 U/LNormal0-41[facility] HospitalComment on above:Performed By: #### PERCY, 19365-9 #### [facility] ([id number]) [address], [address] [place], [place] [address]Dsgdkmcpw [Mass/Vol]1.2 mg/dLNormal0.3-1.2[facility] HospitalComment on above:Performed By: #### PERCY, 91042-5 #### [facility] ([id number]) [address], [address] [place], [place] [address]Thmoxcnhr.direct [Mass/Vol]0.3 mg/dLNormal0.0-0.4[facility] HospitalComment on above:Performed By: #### PERCY, 28700-5 #### [facility] ([id number]) [address], [address] [place], [place] [address]Wwobiks [Mass/Vol]6.8 g/dLNormal6.0-8.0[facility] Comment on above:Performed By: #### PERCY, 83567-8 #### [facility] ([id number]) [address], [address] [place], [place] [address]CJNBORDOLjm 04-78-7448Plckerfdh [Mass/Vol]1.9 mg/dLNormal1.8-2.6 [facility] HospitalComment on above:Performed By: #### CBCA, PINR, BMP, 44422-9, 2284-8, 87805-6, LIVR #### [facility] ([id number]) [address], [address] [place], [place] [address]Xjwdjsnydtx peptide B [Mass/Vol]on 56-04-4357Psslnixirxr peptide B (Bld) [Mass/Vol]429 pg/mLHigh<100.0Pro[facility]ica [facility] HospitalComment on above: Performed By: #### CMP, 59410-9 #### [facility] ([id number]) [address], [address] [place], [place] [address]Vzuppsp Ab IA Ql (S)on 79-87-9313ELT Screen w/reflexPositive AbnormalNEGProSelect Medical Specialty Hospital - Youngstownca Mercy HealthComment on above:Result Comment: Testing performed using multiplex flow immunoassay. Eleven different antigens associated with systemic autoimmune diseases (dsDNA,Sm,Sm/UNIT CONTROL WORKER,UNIT CONTROL WORKER,Chromatin, SSA,SSB,Lena-1,Scl70,Ribo P,Centromere B) are included in this screening test.Performed By: #### CMP, 37043-3 #### [facility] ([id number]) [address], [address] [address]NGZLOHW AND INRon 53-10-2148DAG Coag (PPP) [Relative time]1.5 {INR}High0.8-1.1PMedina HospitalComment on above:Performed By: #### CBCA, PINR, BMP, 16723-1, 2284-8, 08681-9, LIVR #### [facility] ([id number]) [address] [address]VZ Coag (PPP) [Time]17.0 sHigh9.8-13.2PMedina Hospital Comment on above:Performed By: #### CBCA, PINR, BMP, 12432-8, 2284-8, 63590-7, LIVR #### [facility] ([id number]) [address] [address]Ccufcyrkowk review Pathologist comment (Bld) [Interp]on 39-27-4222YBVCL REVIEWNOTENormalProCleveland Clinic Lutheran HospitalComment on above:Result Comment: [facility] [address] [place] [address] Clinical Pathology Report Patient Name:PENNY ORDAZ:1960 (Age: 63)Gender:MTaken:09/08/2024Reported:09/12/2024Physician(s):Wendi Lai M.D. ([phone])Copy To: Rec. #:[id number]: #[id number] Final Pathologic Diagnosis PERIPHERAL BLOOD: - Normochromic, [...] rxd/09/12/2024Monico Ayala MD Interpretation performed at [facility], [address] [place] [address], License number: [id number]. Clinical History D64.9 BLOOD SMEAR EVALUATION CBC (09/08/2024 0308): WBC = 7.1 X10E9/L; HGB = 7.4 g/dL; HCT = 21.7%; MCV = 92 fL; PLT = 245 X10E9/L Specimen(s) Received Blood Smear Review Fee Codes(s): 1; 34[address]Uzeqbbrrj By: #### CBCA, PINR, BMP, 30474-6, 2284-8, 48278-2, LIVR #### [facility] ([id number]) [address] [facility], [address] [place], [place] [address]Cuuhvbdxuwpeqagms extractable nuclear IgG Qn (S)on 29-96-0805QBT ANTIBODY IGG<0.2Normal<1.0ProMedica Mercy HealthComment on above:Performed By: #### CBC, TSHR, 2132-03 #### [facility] ([id number]) [address], [address] [place], [place] [address]XCX-88 extractable nuclear Ab Ql (S)on 24-33-9944SNO 70 ANTIBODY <0.2Normal<1.0ProCleveland Clinic Lutheran HospitalComment on above:Performed By: #### CBC, TSHR, 2132-03 #### [facility] ([id number]) [address], [address] [place], [place] [address]ZESFW PROTEIN ELECTROPHORESISon 64-29-9331Mlsyusf [Mass/Vol]3.2 g/dLLow3.4-5.3PMedina HospitalComment on above:Performed By: #### CMP, 30412-1 #### [facility] ([id number]) [address], [address] [place], [place] [address]DQQIP 1 GLOBULIN0.4 g/dLNormal0.1-0.4[facility] Comment on above:Performed By: #### CMP, 62414-8 #### [facility] ([id number]) [address], [address] [place], [place] [address]ZIMZE 2 GLOBULIN0.7 g/dLNormal0.4-1.1PMedina Hospital Comment on above:Performed By: #### CMP, 74833-8 #### [facility] ([id number]) [address], [address] [place], [place] [address]PWRV GLOBULIN0.7 g/dLNormal0.5-1.2PMedina Hospital Comment on above:Performed By: #### CMP, 53069-4 #### [facility] ([id number]) [address], [address] [place], [place] [address]BZWAA GLOBULIN1.4 g/dLNormal0.5-1.6ProCleveland Clinic Lutheran Hospital Comment on above:Performed By: #### CMP, 03082-5 #### [facility] ([id number]) [address], [address] [place], [place] [address]LJBU. ELECTROPHORESIS INTERPSEE SEPARATE REPORTNormalProMedica Penelope HospitalComment on above:Performed By: #### PERCY, 52076-0 #### [facility] ([id number]) [address], [address] [place], [place] [address]Twgimep [Mass/Vol]6.3 g/dLNormal6.0-8.0[facility] Comment on above:Performed By: #### PERCY, 89917-5 #### [facility] ([id number]) [address], [address] [place], [place] [address]Wmkgsiiz syndrome-A extractable nuclear Ab Qn (S)on 09-08-2024 SSA ANTIBODY<0.2Normal<1.0ProMedica Penelope HospitalComment on above:Performed By: #### KHRIS, TSHR, 2132-03 #### [facility] ([id number]) [address], [address] [place], [place] [address]Ufhcnvmx syndrome-B extractable nuclear IgG Qn (S)on 09-08-2024 SSB ANTIBODY4.3 AIHigh<1.0ProMedica Penelope HospitalComment on above:Performed By: #### CBC, TSHR, 2132-03 #### [facility] ([id number]) [address], [address] [place], [place] [address]Fddag extractable nuclear Ab+Ribonucleoprotein extractable nuclear IgG Qn (S)on 19-34-7338QMWHW/UNIT CONTROL WORKER AB IGG<0.2Normal<1.0ProMedica Penelope HospitalComment on above:Performed By: #### CBC, TSHR, 2132-03 #### [facility] ([id number]) [address], [address] [place], [place] [address]Lqrxv extractable nuclear IgG Qn (S)on 21-57-2517PQNX-TAVAREZ AB IGG<0.2Normal<1.0Pro[facility]ica [facility] HospitalComment on above:Performed By: #### CBC, TSHR, 2-9 #### [facility] ([id number]) [address], [address] [place], [place] [address]Uduaeuxx Pathologyon 11-84-9510Lwnvrunf PathologyNormalProMedica Mercy HealthComment on above:Result Comment: [facility] [address] [place], [place] [address] Flow Cytometry Patient Name:PENNY ORDAZAccession #:[id number]. Rec. #:[id number]:The Mercy HealthTaken:09/08/2024DOB:1960 (Age: 63)Location:[facility] GEN 6 ACUTE O604Lfmakzvn:09/08/2024Gender: MBtyrell. Typ e:[place]Reported:Priority:RBilling #:[id number] Class:[facility] Special Procedure OnlyPhysician(s): Jose Umanzor MD Chang [...] CD16, CD19, CD33, CD34, CD45, CD117,CD123, CD138, [place], and [place]ambda. Immunophenotyping Comment: Immunophenotyping has been used in this diagnostic evaluation. This test was developed and its performance characteristics determined by the [facility] Clinical [facility] Department. It has not been [...] The marrow study reveals primary myelofibrosis (see S25???5959). Electronically Signed Out mls/09/10/2024 Arcenio Alonzo MDTOTAL PROTEINon 13-64-8756Qonwjpq [Mass/Vol]6.6 g/dLNormal6.0-8.0[facility] Health CenterComment on above:Performed By: #### CMP, 79947-1 #### [facility] ([id number]) [address], [address] [place], [place] [address]GJW AND AUTO DIFFon 09-10-3791Yofi form neutrophils/100 WBC (Bld)4.0 %NormalThe Jewish HospitalComment on above:Performed By: #### CMP, CBCA, PINR, 33616-5 #### [facility] ([id number]) [address] [place] [address] #### 4679-7, FEPR, 2276-4 #### [facility] ([id number]) [address] [facility] [facility], [address] [place], [place] [address]Holpzbrkbpk distribution width (RBC) [Ratio]24.2 %High11.5-15.0 The Jewish HospitalComment on above:Performed By: #### CMP, CBCA, PINR, 91876-3 #### [facility] ([id number]) [address] [place] [address] #### 4679-7, FEPR, 2276-4 #### [facility] ([id number]) [address], [address] [place], [place] [address]Ynaaiusfdj (Bld) [Volume fraction]16.4 %Ddb55-64GgpCffbkzTyler County HospitalComment on above:Performed By: #### CMP, CBCA, PINR, 41389-5 #### [facility] ([id number]) [address] [place] [address] #### 4679-7, FEPR, 2276-4 #### [facility] ([id number]) [address], [address] [place], [place] [address]Wefrqatdbj (Bld) [Mass/Vol]5.3 g/dLCritically low13.0-17.0 [facility] CenterComment on above:Performed By: #### CMP, CBCA, PINR, 58636-6 #### [facility] ([id number]) [address] [place] [address] #### 4679-7, FEPR, 6-4 #### [facility] ([id number]) [address], [address] [place], [place] [address]Dcgzbjljtrp (Bld) [#/Vol]0.6 10*3/uLLow1.0-3.5[facility] Medical CenterComment on above:Performed By: #### CMP, CBCA, PINR, 15191-0 #### [facility] ([id number]) [address] [place] [address] #### 4679-7, FEPR, 2276-4 #### [facility] ([id number]) [address], [address] [place], [place] [address]Wcckmyirbig/100 WBC (Bld)9.0 %NormalProTyler County Hospital Comment on above:Performed By: #### CMP, CBCA, PINR, 15646-1 #### [facility] ([id number]) [address] [place] [address] #### 4679-7, FEPR, 2276-4 #### [facility] ([id number]) [address], [address] [place], [place] [address]PDO (RBC) [Entitic mass]31.3 fyYcdkdl59-60IbeTyrcfpTyler County HospitalComment on above:Performed By: #### CMP, CBCA, PINR, 48476-3 #### [facility] ([id number]) [address] [place] [address] #### 4679-7, FEPR, 2276-4 #### [facility] ([id number]) [address], [address] [place], [place] [address]UAXW (RBC) [Mass/Vol]32.2 g/tCDvexci12-39YvlKmbfcgTyler County HospitalComment on above:Performed By: #### CMP, CBCA, PINR, 10756-6 #### [facility] ([id number]) [address] [place] [address] #### 4679-7, FEPR, 2276-4 #### [facility] ([id number]) [address], [address] [place], [place] [address]QKS (RBC) [Entitic vol]97 pTAvjyvb95-303JjvKpkcyy Fremont HospitalComment on above:Performed By: #### CMP, CBCA, PINR, 60593-5 #### [facility] ([id number]) [address] [place] [address] #### 4679-7, FEPR, 2276-4 #### [facility] ([id number]) [address], [address] [place], [place] [address]Fckfwsefm (Bld) [#/Vol]0.5 10*3/uLNormal0-0.9The Jewish HospitalComment on above:Performed By: #### CMP, CBCA, PINR, 78138-1 #### [facility] ([id number]) [address] [place] [address] #### 4679-7, FEPR, 2276-4 #### [facility] ([id number]) [address], [address] [place], [place] [address]Hkggrgpfj/100 WBC (Bld)7.0 %NormalProTyler County Hospital Comment on above:Performed By: #### CMP, CBCA, PINR, 69661-9 #### [facility] ([id number]) [address] [place] [address] #### 4679-7, FEPR, 2276-4 #### [facility] ([id number]) [address], [address] [place], [place] [address]VCIZTURYJ5.0 %NormalProTyler County HospitalComment on above: Performed By: #### CMP, CBCA, PINR, 48236-5 #### [facility] ([id number]) [address] [place] [address] #### 4679-7, FEPR, 2276-4 #### [facility] ([id number]) [address], [address] [place], [place] [address]Nxhqpuuwcca (Bld) [#/Vol]6.0 10*3/uLNormal1.5-6.6ProTyler County HospitalComment on above:Performed By: #### CMP, CBCA, PINR, 73043-4 #### [facility] ([id number]) [address] [place] [address] #### 4679-7, FEPR, 2276-4 #### [facility] ([id number]) [address], [address] [place], [place] [address]Jzylojxb mean volume (Bld) [Entitic vol]9.2 fLNormal7-12 ProMSuburban Medical CenterComment on above:Performed By: #### CMP, CBCA, PINR, 23925-1 #### [facility] ([id number]) [address] [place] [address] #### 4679-7, FEPR, 2276-4 #### [facility] ([id number]) [address], [address] [place], [place] [address]Bylrqduje (Bld) [#/Vol]349 10*3/nHMvicxi565-810UjhPlvsasThe Jewish HospitalComment on above:Performed By: #### CMP, CBCA, PINR, 22861-2 #### [facility] ([id number]) [address] [place] [address] #### 4679-7, FEPR, 2276-4 #### [facility] ([id number]) [address], [address] [place], [place] [address]XIA COUNT1.69 X10E12/LLow4.10-5.70[facility] Comment on above:Performed By: #### CMP, CBCA, PINR, 48352-6 #### [facility] ([id number]) [address] [place] [address]367 #### 4679-7, FEPR, 2276-4 #### [facility] ([id number]) [address], [address] [place], [place] [address]EUX morphology finding Nom (Bld)REVIEWEDNoOhioHealth Nelsonville Health CenterComment on above:Performed By: #### CMP, CBCA, PINR, 46496-6 #### [facility] ([id number]) [address] [place] [address] #### 4679-7, FEPR, 2276-4 #### [facility] ([id number]) [address], [address] [place], [place] [address]LRT JSROBCKQHY99.0 %NormalProTyler County HospitalComment on above:Performed By: #### CMP, CBCA, PINR, 62610-2 #### [facility] ([id number]) [address] [place] [address] #### 4679-7, FEPR, 2276-4 #### [facility] ([id number]) [address], [address] [place], [place] [address]BDN (Bld) [#/Vol]7.2 10*3/uLNormal4.0-11.0ProTyler County HospitalComment on above:Performed By: #### CMP, CBCA, PINR, 18478-6 #### [facility] ([id number]) [address] [place] [address] #### 4679-7, FEPR, 6-4 #### [facility] ([id number]) [address], [address] [place], [place] [address]IZMEFOKAJNGJX METABOLIC PANELon 37-32-3688Belbhlz [Mass/Vol]3.5 g/dLNormal3.2-5.3ProMedica [facility]vine Medical CenterComment on above:Performed By: #### CMP, CBCA, PINR, 14493-3 #### [facility] ([id number]) [address] [place] [address] #### 4679-7, FEPR, 2276-4 #### [facility] ([id number]) [address], [address] [place], [place] [address]ESX [Catalytic activity/Vol]84 U/XWxbmjd84-488XpcMjbeerTyler County HospitalComment on above:Performed By: #### CMP, CBCA, PINR, 58951-5 #### [facility] ([id number]) [address] [place] [address] #### 4679-7, FEPR, 2276-4 #### [facility] ([id number]) [address] [facility], [address] [place], [place] [address]HDA [Catalytic activity/Vol]12 U/LNormal0-40ProTyler County HospitalComment on above:Performed By: #### CMP, CBCA, PINR, 46793-9 #### [facility] ([id number]) [address] [place] [address] #### 4679-7, FEPR, 2276-4 #### [facility] ([id number]) [facility] [facility], [address] [place], [place] [address]Chjjl gap [Moles/Vol]8 mmol/LNormal5-15ProTyler County HospitalComment on above:Performed By: #### CMP, CBCA, PINR, 88285-8 #### [facility] ([id number]) [address] [place] [address] #### 4679-7, FEPR, 2276-4 #### [facility] ([id number]) [facility] [facility], [address] [place], [place] [address]ENC [Catalytic activity/Vol]22 U/LNormal0-41ProTyler County HospitalComment on above:Performed By: #### CMP, CBCA, PINR, 24171-1 #### [facility] ([id number]) [address] [place] [address] #### 4679-7, FEPR, 2276-4 #### [facility] ([id number]) [address], [address] [place], [place] [address]Znundsssq [Mass/Vol]0.9 mg/dLNormal0.3-1.2PLutheran HospitalComment on above:Performed By: #### CMP, CBCA, PINR, 62278-2 #### [facility] ([id number]) [address] [place] [address] #### 4679-7, FEPR, 2276-4 #### [facility] ([id number]) [address], [address] [place], [place] [address]Xtdosxz [Mass/Vol]8.1 mg/dLLow8.5-10.5PLutheran Hospital Comment on above:Performed By: #### CMP, CBCA, PINR, 94104-8 #### [facility] ([id number]) [address] [place] [address]77 #### 4679-7, FEPR, 6-4 #### [facility] ([id number]) [address], [address] [place], [place] [address]Ypgfbncz [Moles/Vol]104 mmol/KCzevwx02-387HvdJkmtje [facility], [facility]vine Medical CenterComment on above:Performed By: #### CMP, CBCA, PINR, 18713-5 #### [facility] ([id number]) [address] [place] [address] #### 4679-7, FEPR, 6-4 #### [facility] ([id number]) [address], [address] [place], [place] [address]PO7 [Moles/Vol]21 mmol/OWaj76-80WwnShdkcvLutheran Hospital Comment on above:Performed By: #### CMP, CBCA, PINR, 59080-7 #### [facility] ([id number]) [address] [place] [address] #### 4679-7, FEPR, 2276-4 #### [facility] ([id number]) [address], [address] [place], [place] [address]Xjnwclyaed [Mass/Vol]0.71 mg/dLNormal0.70-1.20ProTyler County HospitalComment on above:Result Comment: METHOD TRACEABLE TO IDMS STANDARD Performed By: #### CMP, CBCA, PINR, 88116-1 #### [facility] ([id number]) [address] [place] [address] #### 4679-7, FEPR, 2276-4 #### [facility] ([id number]) [address], [address] [place], [place] [address]eJRG (CKD-EPI) NON-RACE DEPENDENT>90Normal>59ProTyler County HospitalComment on above:Result Comment: Reported eGFR is based on the CKD-EPI 2020 equation that does not use a race coefficient.Performed By: #### CMP, CBCA, PINR, 15074-4 #### [facility] ([id number]) [address] [place] [address] #### 4679-7, FEPR, 2276-4 #### [facility] ([id number]) [address], [address] [place], [place] [address]Botxxqf [Mass/Vol]104 mg/dIYirp02-40OoiEmzelwTyler County Hospital Comment on above:Performed By: #### CMP, CBCA, PINR, 38850-6 #### [facility] ([id number]) [address] [place] [address] #### 4679-7, FEPR, 2276-4 #### [facility] ([id number]) [address], [address] [place], [place] [address]Yemhqxqaf [Moles/Vol]4.1 mmol/LNormal3.5-5.0ProTyler County HospitalComment on above:Performed By: #### CMP, CBCA, PINR, 93009-4 #### [facility] ([id number]) [address] [place] [address] #### 4679-7, FEPR, 2276-4 #### [facility] ([id number]) [address], [address] [place], [place] [address]Utrxlqf [Mass/Vol]6.9 g/dLNormal6.0-8.0ProTyler County HospitalComment on above:Performed By: #### CMP, CBCA, PINR, 07535-0 #### [facility] ([id number]) [address] [place] [address]86 #### 4679-7, FEPR, 2276-4 #### [facility] ([id number]) [address], [address] [place], [place] [address]Cjmdie [Moles/Vol]133 mmol/JHuy504-820YlwZdjvhfThe [facility] Comment on above:Performed By: #### CMP, CBCA, PINR, 23044-5 #### [facility] ([id number]) [address] [place] [address]269 #### 4679-7, FEPR, 2276-4 #### [facility] ([id number]) [address], [address] [place], [place] [address]Qryz nitrogen [Mass/Vol]12 mg/dLNormal5-27ProTyler County HospitalComment on above:Performed By: #### CMP, CBCA, PINR, 23013-9 #### [facility] ([id number]) [address] [place] [address]64 #### 4679-7, FEPR, 2276-4 #### [facility] ([id number]) [address], [address] [place], [place] [address]QS ABDOMEN AND PELVIS W CONTon 58-09-0930OU ABDOMEN AND PELVIS W CONTCT ABDOMEN AND [...] by Conor Franklin MD on 09/07/2024 10:11 AMNormalProTyler County HospitalFERRITINon 42-39-0384Ugqydsxa [Mass/Vol]292 ng/aWUxzxoj38-757CveXhjfkh Fremont HospitalComment on above:Performed By: #### CMP, CBCA, PINR, 99718-9 #### [facility] ([id number]) [address] [place] [address], [place] [address] #### 4679-7, FEPR, 2276-4 #### [facility] ([id number]) [address], [address] [place] [address]PAKVXIDTTYvq 14-87-2237Qaecvgvbfm (Bld) [Mass/Vol]6.4 g/dL Critically low13.0-17.0ProTyler County HospitalComment on above:Performed By: #### CMP, CBCA, PINR, 71758-8 #### [facility] ([id number]) [address] [place] [address] #### 4679-7, FEPR, 2276-4 #### [facility] ([id number]) [address], [address] [place] [address]DQJbw 93-87-4030Bgzhmkypxf (Bld) [Volume fraction]21.7 %Tup13-95 [facility] Medical CenterComment on above:Performed By: #### CMP, CBCA, PINR, 61910-3 #### [facility] ([id number]) [address] [place] [address]85 #### 4679-7, FEPR, 2276-4 #### [facility] ([id number]) [address], [address] [place], [place] [address]Ddfsskcrrl (Bld) [Mass/Vol]7.3 g/dLLow13.0-17.0ProTyler County HospitalComment on above:Performed By: #### CMP, CBCA, PINR, 60016-0 #### [facility] ([id number]) [address] [place] [address] #### 4679-7, FEPR, 2276-4 #### [facility] ([id number]) [address], [address] [place], [place] [address]Ugdvedoazq Auto (Bld) [Volume fraction]on 58-42-7855Krjgmyytsx (Bld) [Volume fraction]19.2 %Ilu05-59XmmVufbetTyler County HospitalComment on above: Performed By: #### 4544-3, 718-7 #### [facility] ([id number]) [address] [place] [address]PKNI PROFILEon 02-51-3628Vtif [Mass/Vol]112 ug/vYFezwhb21-958 [facility] Medical CenterComment on above:Performed By: #### CMP, CBCA, PINR, 69555-6 #### [facility] ([id number]) [address] [place] [address]684 #### 4679-7, FEPR, 2276-4 #### [facility] ([id number]) [address], [address] [place], [place] [address]WJNJ OUPETMY033 ug/pQPzgsjg065-338KaoQcyjwrThe [facility] Hospital Comment on above:Performed By: #### CMP, CBCA, PINR, 22824-5 #### [facility] ([id number]) [address] [place] [address]228 #### 4679-7, FEPR, 2276-4 #### [facility] ([id number]) [address], [address] [place], [place] [address]XURP IJRIPCDXZP03 % HIOXNEJJATQhhjta04-87RomJjulio Fremont HospitalComment on above:Performed By: #### CMP, CBCA, PINR, 56754-3 #### [facility] ([id number]) [address] [place] [address]658 #### 4679-7, FEPR, 2276-4 #### [facility] ([id number]) [address], [address] [place], [place] [address]MNRSCLE AND INRon 57-69-8844UZV Coag (PPP) [Relative time]1.5 {INR}High0.8-1.1ProMedica [facility] Medical CenterComment on above:Performed By: #### CMP, CBCA, PINR, 47043-2 #### [facility] ([id number]) [address] [place] [address] #### 4679-7, FEPR, 2276-4 #### [facility] ([id number]) [address], [address] [place], [place] [address]CU Coag (PPP) [Time]17.0 sHigh9.8-13.2PLutheran Hospital Comment on above:Result Comment: NEW REFERENCE RANGEPerformed By: #### CMP, CBCA, PINR, 10869-0 #### [facility] ([id number]) [address] [place] [address] #### 4679-7, FEPR, 2276-4 #### [facility] ([id number]) [address], [address] [place] [address]Vtykzpkxfxznw/100 RBC (Bld)on 51-80-5625HYVVGZHMBHNO COUNT2.5 % High0.4-2.2PLutheran HospitalComment on above:Performed By: #### CMP, CBCA, PINR, 12707-0 #### [facility] ([id number]) [address] [place] [address] #### 4679-7, FEPR, 2276-4 #### [facility] ([id number]) [address], [address] [place], [place] [address]JO CHEST 1 VWon 56-22-6735LS CHEST 1 VWXR CHEST 1 VW CLINICAL [...] by Tamela Escalante MD on 09/07/2024 10:14 AMNormalProSelect Medical Specialty Hospital - Youngstownca [facility] Medical CenteraPTT Coag (PPP) [Time]on 23-50-9630iZVN Coag (Bld) [Time]33 vFllzuk49-21 ProMSuburban Medical CenterComment on above:Result Comment: NEW REFERENCE RANGE Performed By: #### CMP, CBCA, PINR, 61986-7 #### [facility] ([id number]) [address] [place] [address], [place] [address] #### 4679-7, FEPR, 2276-4 #### [facility] ([id number]) [address], [address] [place], [place] [address]DAVBKSBK BLOOD COUNTon 47-16-3202Nakycaliqqq distribution width (RBC) [Ratio]24.0 %High11.5-15.0Samaritan North Health CenterComment on above: Performed By: #### CBC, TSHR, 2132-03 #### [facility] ([id number]) [address], [address] [place], [place] [address]Xcftvwqvvy (Bld) [Volume fraction]17.4 %Phz69-41BxiVzffwwSamaritan North Health CenterComment on above:Performed By: #### CBC, TSHR, 2132-03 #### [facility] ([id number]) [address], [address] [place], [place] [address]Hfkliljcep (Bld) [Mass/Vol]5.4 g/dLCritically low13.0-17.0 [facility] Health CenterComment on above:Performed By: #### CBC, TSHR, 2132-03 #### [facility] ([id number]) [address], [address] [place], [place] [address]BGA (RBC) [Entitic mass]31.2 tcPupyqq78-71FlrBobnuiSamaritan North Health CenterComment on above:Performed By: #### KHRIS TSHR, 2132-03 #### [facility] ([id number]) [address], [address] [place], [place] [address]PKLX (RBC) [Mass/Vol]30.9 g/uYVgn41-06AjiFrrurcSamaritan North Health Center Comment on above:Performed By: #### KHRIS TSHR, 2132-03 #### [facility] ([id number]) [address], [address] [place], [place] [address]XLD (RBC) [Entitic vol]101 kOZpiz80-574AeiEldxjsSamaritan North Health Center Comment on above:Performed By: #### KHRIS TSHR, 2132-03 #### [facility] ([id number]) [address], [address] [place], [place] [address]Ebkyuxvf mean volume (Bld) [Entitic vol]9.9 fLNormal7-12 [facility] Health CenterComment on above:Performed By: #### KHRIS TSHR, 2132-03 #### [facility] ([id number]) [address], [address] [place], [place] [address]Xgidxhaoy (Bld) [#/Vol]356 10*3/rANctbbk583-090QyaGnffkk [facility] HospitalComment on above:Performed By: #### KHRIS TSHR, 2132-03 #### [facility] ([id number]) [address], [address] [place], [place] [address]BAS COUNT1.73 X10E12/LLow4.10-5.70[facility] Comment on above:Performed By: #### CBC, TSHR, 2132-03 #### [facility] ([id number]) [address], [address] [place], [place] [address]XQK (Bld) [#/Vol]6.2 10*3/uLNormal4.0-11.0ProMedica [facility] HospitalComment on above:Performed By: #### KHRIS TSHR, 2132-03 #### [facility] ([id number]) [address], [address] [place], [place] [address]KOS WITH REFLEXon 52-40-6519QWQ3.61 uIU/mLNormal0.49-4.67 [facility] HospitalComment on above:Performed By: #### KHRIS, TSHR, 2132-03 #### [facility] ([id number]) [address], [address] [place], [place] [address]OUXDXMF B12on 11-14-7960Wolgxhbgf (Vitamin B12) [Mass/Vol]547 pg/kWCgbkbl964-160JukLvunaj [facility] HospitalComment on above:Performed By: #### KHRIS TSHR, 2132-03 #### [facility] ([id number]) [address], [address] [place], [place] [address]FKAQHMUPPOYIR METABOLIC PANELon 80-96-2711Ostfwac [Mass/Vol]4.3 g/dLNormal3.2-5.3ProMedCleveland Clinic Marymount Hospital HospitalComment on above:Performed By: #### PERCY, 42262-0 #### [facility] ([id number]) [address], [address] [place], [place] [address]IPA [Catalytic activity/Vol]81 U/BHzpofa69-290SvqKorswi [facility] HospitalComment on above:Performed By: #### PERCY, 91427-9 #### [facility] ([id number]) [address], [address] [place], [place] [address]GWI [Catalytic activity/Vol]15 U/LNormal0-40Pro[facility]ica [facility] HospitalComment on above:Performed By: #### PERCY, 62263-6 #### [facility] ([id number]) [address], [address] [place], [place] [address]Moepa gap [Moles/Vol]8 mmol/LNormal5-15[facility] Comment on above:Performed By: #### PERCY, 68863-0 #### [facility] ([id number]) [address], [address] [place], [place] [address]AJA [Catalytic activity/Vol]19 U/LNormal0-41ProPickens County Medical Center [facility] HospitalComment on above:Performed By: #### PERCY, 14791-0 #### [facility] ([id number]) [address], [address] [place], [place] [address]Fqrngaxud [Mass/Vol]1.1 mg/dLNormal0.3-1.2PMorrow County Hospital HospitalComment on above:Performed By: #### PERCY, 80040-3 #### [facility] ([id number]) [address], [address] [place], [place] [address]Iihtfor [Mass/Vol]9.1 mg/dLNormal8.5-10.5PMorrow County Hospital HospitalComment on above:Performed By: #### PERCY, 22222-9 #### [facility] ([id number]) [address], [address] [place], [place] [address]Oojawqsg [Moles/Vol]100 mmol/UFwwjkp58-849LjvCgpqij [facility] HospitalComment on above:Performed By: #### PERCY, 22176-5 #### [facility] ([id number]) [address], [address] [place], [place] [address]FM0 [Moles/Vol]26 mmol/TBiyykr44-02MykDnstkq [facility] Comment on above:Performed By: #### PERCY, 88503-2 #### [facility] ([id number]) [address], [address] [place], [place] [address]Wvrzmkfibg [Mass/Vol]0.66 mg/dLNormal0.60-1.30ProMart[facility]erry Hospital HospitalComment on above:Result Comment: METHOD TRACEABLE TO IDMS STANDARD Performed By: #### PERCY, 25617-0 #### [facility] ([id number]) [address], [address] [place], [place] [address]cBUJ (CKD-EPI) NON-RACE DEPENDENT>90Normal>59ProCleveland Clinic Lutheran HospitalComment on above:Result Comment: Reported eGFR is based on the CKD-EPI 2020 equation that does not use a race coefficient.Performed By: #### PERCY, 31779-2 #### [facility] ([id number]) [address] [address] [place], [place] [address]Oplzqbj [Mass/Vol]98 mg/hXDqfrcs97-57UsfMkhlcbSamaritan North Health Center Comment on above:Performed By: #### PERCY, 11083-1 #### [facility] ([id number]) [address] [address] [place], [place] [address]Htcpuulpq [Moles/Vol]5.0 mmol/LNormal3.5-5.0ProCleveland Clinic Lutheran HospitalComment on above:Performed By: #### PERCY, 93428-1 #### [facility] ([id number]) [address], [address] [place], [place] [address]Qsvsnqh [Mass/Vol]7.6 g/dLNormal6.0-8.0[facility] Comment on above:Performed By: #### PERCY, 39644-6 #### [facility] ([id number]) [address] [place], [place] [address]Rbvqdd [Moles/Vol]134 mmol/UKwynlc495-959ThxPblucv [facility] HospitalComment on above:Performed By: #### PERCY, 50717-0 #### [facility] ([id number]) [address] [address] [place], [place] [address]Orix nitrogen [Mass/Vol]10 mg/dLNormal5-27ProCleveland Clinic Lutheran HospitalComment on above:Performed By: #### PERCY, 01251-1 #### [facility] ([id number]) [address], [address] [place], [place] [address]Twwcw 1996 panelon 38-82-7558Fdvxmdrqsas [Mass/Vol]74 mg/dLLow 150-200Pro[facility]elope HospitalComment on above:Performed By: #### PERCY, 86289-6 #### [facility] ([id number]) [address] [place], [place] [address]Cedhbwgspgd in HDL [Mass/Vol]18 mg/dLLow>39Pro[facility]elope HospitalComment on above:Result Comment: HDL <40 mg/dL - High Risk HDL > or = 40mg/dL- Desirable HDL >60 mg/dL - Negative Risk Performed By: #### PERCY, 69841-4 #### [facility] ([id number]) [address] [place], [place] [address]Ufzqgnyqeal in LDL [Mass/Vol]43 mg/dLNormal<130ProMart[facility]erry Hospital HospitalComment on above:Result Comment: LDL <100 mg/dL - Desirable LDL >160 mg/dL - High Risk Performed By: #### PERCY, 08961-6 #### [facility] ([id number]) [address], [address] [place], [place] [address]Xgmbpdpycei in VLDL [Mass/Vol]13 mg/dLNormal0-30ProMartins [facility]erry Hospital HospitalComment on above:Performed By: #### PERCY, 13069-8 #### [facility] ([id number]) [address], [address] [place], [place] [address]CDIHEYYTVRG:HDL4.2Cpgyqm2.0-5.0ProCleveland Clinic Lutheran HospitalComment on above:Performed By: #### CMP, 71192-0 #### [facility] ([id number]) [address], [address] [place], [place] [address]Cmzkazyzfjsw [Mass/Vol]64 mg/kCTaxrga28-961XnbSpziel Toledo HospitalComment on above:Performed By: #### CMP, 65545-4 #### [facility] ([id number]) [address], [address] [place], [place] [address]EWF (INCLUDES DIFF/PLT)on 20-04-3327Edkliirnh (Bld) [#/Vol]0 10*3/uLNormal0-200Quest DiagnosticsComment on above:Performed By: #### [id number] #### [facility] [place] [address] Clamp Operator: Horace Vital MDBasophils/100 WBC (Bld)0 %NormalQuest DiagnosticsComment on above:Performed By: #### [id number] #### [facility] [place] [address] Clamp Operator: Horace Vital MDCOMMENT(S)NormalQuest DiagnosticsComment on above:Result Comment: The smear has been manually reviewed and the manual differential has been reported.Performed By: #### [id number] #### [facility] [place] [address] Clamp Operator: Horace Vital MDEosinophils (Bld) [#/Vol]0.132 10*3/uLNormal 15-500Quest DiagnosticsComment on above:Performed By: #### [id number] #### [facility] [place] [address] Clamp Operator: Horace Vital MDEosinophils/100 WBC (Bld)3 %NormalQuest DiagnosticsComment on above:Performed By: #### [id number] #### [facility] of [address], [address] [place] [address] Clamp Operator: Horace Vital MDErythrocyte distribution width (RBC) [Ratio] 14.6 %Updntf97.0-15.0Quest DiagnosticsComment on above:Performed By: #### [id number] #### [facility] of [place] [address] Clamp Operator: Horace Vital MDHematocrit (Bld) [Volume fraction]40.2 %Normal 38.5-50.0Quest DiagnosticsComment on above:Performed By: #### [id number] #### [facility] of [place] [address] Clamp Operator: Horace Vital MDHemoglobin (Bld) [Mass/Vol]13.6 g/dLNormal 13.2-17.1Quest DiagnosticsComment on above:Performed By: #### [id number] #### [facility] of [address], [address] [place] [address] Clamp Operator: Horace Vital MDLymphocytes (Bld) [#/Vol]1.276 10*3/uLNormal 850-3900Quest DiagnosticsComment on above:Performed By: #### [id number] #### [facility] of [place] [address] Clamp Operator: Horace Vital MDLymphocytes/100 WBC (Bld)29 %NormalQuest DiagnosticsComment on above:Performed By: #### [id number] #### [facility] of [place] [address] Clamp Operator: Horace Vital MDMCH (RBC) [Entitic mass]32.7 hiVmummf20.0-33.0 Quest DiagnosticsComment on above:Performed By: #### [id number] #### [facility] of [place] [address] Clamp Operator: Horace Merati MDMCHC (RBC) [Mass/Vol]33.8 g/kVGkbaib53.0-36.0 Quest DiagnosticsComment on above:Performed By: #### [id number] #### [facility] of [place] [address] Clamp Operator: Horace Vital MDMCV (RBC) [Entitic vol]96.6 gUYhxavz49.0-100.0 Quest DiagnosticsComment on above:Performed By: #### [id number] #### [facility] of [address], [address] [place] [address] Clamp Operator: Horace Vital MDMonocytes (Bld) [#/Vol]0.748 10*3/uLNormal 200-950Quest DiagnosticsComment on above:Performed By: #### [id number] #### [facility] of [place] [address] Clamp Operator: Horace Vital MDMonocytes/100 WBC (Bld)17 %NormalQuest DiagnosticsComment on above:Performed By: #### [id number] #### [facility] of [place] [address] Clamp Operator: Horace Vital MDNeutrophils (Bld) [#/Vol]2.244 10*3/uLNormal 1500-7800Quest DiagnosticsComment on above:Performed By: #### [id number] #### [facility] of [place] [address] Clamp Operator: Horace Vital MDNeutrophils/100 WBC (Bld)51 %NormalQuest DiagnosticsComment on above:Performed By: #### [id number] #### [facility] of [place] [address] Clamp Operator: Horace Vital MDPlatelet mean volume (Bld) [Entitic vol]11.6 fLNormal7.5-12.5Quest DiagnosticsComment on above:Performed By: #### [id number] #### [facility] of [place] [address], [address] [place] [address] Clamp Operator: Horace YOUNGlatecooley dickinson hospital ([facility]) [#/Vol]230 10*3/uLNormal 140-400Quest DiagnosticsComment on above:Performed By: #### [id number] #### [facility] of [place] [address], [address] [place] [address] Clamp Operator: Horace Vital MDRBC ([facility]) [#/Vol]4.16 10*6/uLLow4.20-5.80Quest DiagnosticsComment on above:Performed By: #### [id number] #### [facility] of [place] [address], [address] [place] [address] Clamp Operator: Horace Vital MDWBC ([facility]) [#/Vol]4.4 10*3/uLNormal3.8-10.8 Quest DiagnosticsComment on above:Performed By: #### [id number] #### [facility] [place] [address] [place] , [address] [place] [address] Clamp Operator: Horace TOVAR [facility] 01-32-1186EEGRM FIBULA [facility] CenterDepartment of Tityueozc[address] [place] [address] Patien t Name: PENNY ORDAZ Brit : 1960Sex: MAge: Race: WhiteMRN: [id number]. Location: 84Patient Status: Date: 12/14/2017 9:00:00 AMCompleted Date: 12/14/2017 09:01 AMRequesting Provider: GORDILLO, CHRISTOPHER Attending Provider: Report Copy To: Signs & Symptoms: M96.671Fx tib/fib fol insrt ortho implnt/prosth/bone plt, right leg K87Gbevyge: AthenaComments: , , Views (X-RAY, TIBIA AND FIBULA): AP, Lateral , , , Ordering Provider - RASHEEDA GORDILLO , Exam: TIBIA FIBULA RIGHTAccession #: [id number] TIBIA FIBULA RIGHT 12/14/2017 9:01 AM EDT [...] still conspicuous Electronically signedby:Lauren Clemente. Transcribed by: [email or web address], User Resident: Electronically Signed by: LAUREN CLEMENTE @ 12/14/2017 12:06 [facility] HospitalComment on above:Order Comment: No: Do not add to previous drawANKLE RIGHT 3 VWSon 34-26-5416XAYJT RIGHT 3 SUniMemorial Health System [facility] Memorial HospitalDepartment of Ossrhldod[address] [place] [address] Patien t Name: PENNY ORDAZ : 1960Sex: MAge: Race: WhiteMRN: [id number]. Location: 84Patient Status: Date: 10/19/2017 9:55:00 AMCompleted Date: 10/19/2017 10:07 AMRequesting Provider: RASHEEDA GORDILLO Attending Provider: Report Copy To: Signs & Symptoms: S82.391DOth fx lower end of r tibia, subs for clos fx w routn heal C79Kjcpqug: AthenaComments: , , Views (X-RAY, ANKLE): AP, Lateral, Mortise , , , Ordering Provider - RASHEEDA GORDILLO , Exam: ANKLE RIGHT 3 VWSAccession #: [id number] ANKLE RIGHT 3 VWS, TIBIA FIBULA RIGHT [...] AP,Lateral and Oblique views were obtained. (accession [id number]), AP(PA) and Lateral views were obtained. (accession [id number]) COMPARISON: October 19, 2017 FINDINGS: Soft tissues:Unchanged Bones:Unchanged Joints:Unchanged IMPRESSION: Healing lower leg injury with jil fixing distal midshaft tibial fracture in good alignment and no hardware securing healing proximal fibular fracture Electronically signed by:Lauren Clemente. Transcribed by: [id number], User Resident: Electronically Signed by: LAUREN CLEMENTE @ 10/19/201710:33 AMNormalTrinity Health System East CampusComment on above:Order Comment: No: Do not add to previous drawTIBIA FIBULA RIGHTon 08-12-0083IGOTL FIBULA RIGHTMercy Health Kings Mills HospitalDepartment of Tzvokxavu[address] [place] [address] Patien t Name: PENNY ORDAZ Brit : 1960Sex: MAge: Race: WhiteMRN: [id number]. Location: 84Patient Status: Date: 10/19/2017 9:55:00 AMCompleted Date: 10/19/2017 10:07 AMRequesting Provider: RASHEEDA GORDILLO Attending Provider: Report Copy To: Signs & Symptoms: M96.671 Fx tib/fib fol insrt ortho implnt/prosth/bone plt, right leg E55Snmvcch: AthenaComments: , , Views (X-RAY, TIBIA AND FIBULA): AP, Lateral , , , Ordering Provider - RASHEEDA GORDILLO , Exam: TIBIA FIBULA RIGHTAccession #: [id number] ANKLE RIGHT 3 VWS, TIBIA FIBULA RIGHT [...] AP,Lateral and Oblique views were obtained. (accession [id number]), AP(PA) and Lateral views were obtained. (accession [id number]) COMPARISON: October 19, 2017 FINDINGS: Soft tissues:Unchanged Bones:Unchanged Joints:Unchanged IMPRESSION: Healing lower leg injury with jil fixing distal midshaft tibial fracture in good alignment and no hardware securing healing proximal fibular fracture Electronically signed by:Lauren Clemente. Transcribed by: [email or web address], User Resident: Electronically Signed by: LAUREN CLEMENTE @ 10/19/2017 10:33 AMNormalTrinity Health System East CampusComment on above:Order Comment: No: Do not add to previous drawANKLE RIGHT 3 VWSon 20-94-7396QFLMI RIGHT 3 SUniMemorial Health System Marietta Memorial HospitalDepartment of Syikikmfd2206 [place] [address] Patien t Name: PENNY ORDAZ : 1960Sex: MAge: Race: WhiteMRN: [id number]. Location: 84Patient Status: Date: 08/31/2017 11:10:00 AMCompleted Date: 08/31/2017 11:32 AMRequesting Provider: RASHEEDA GORDILLO Attending Provider: Report Copy To: Signs & Symptoms: S82.391D Oth fx lower end of r tibia, subs for clos fx w routn heal C96Aykvdcj: AthenaComments: , , , Ordering Provider - RASHEEDA GORDILLO , Exam: ANKLE RIGHT 3 VWSAccession #: [id number] TIBIA FIBULA RIGHT, ANKLE RIGHT 3 [...] AP(PA) and Lateral views were obtained. (accession [id number]), AP,Lateral and Oblique views were obtained. (accession [id number]) COMPARISON: August 03, 2017 FINDINGS: Soft tissues:No [...] tibia Electronically signed by:Lauren Clemente. Transcribed by: [id number], User Resident: Electronically Signed by: LAUREN CLEMENTE @ 08/31/2017 11:37 AMNormalTrinity Health System East CampusComment on above:Order Comment: No: Do not add to previous drawTIBIA FIBULA RIGHTon 64-07-7639YHOHX FIBULA [facility] CenterDepartment of Smvtzdmwd6396 [place] [address] Patien t Name: PENNY ORDAZ : 1960Sex: MAge: Race: WhiteMRN: [id number]. Location: 84Patient Status: Date: 08/31/2017 11:10:00 AMCompleted Date: 08/31/2017 11:32 AMRequesting Provider: RASHEEDA GORDILLO Attending Provider: Report Copy To: Signs & Symptoms: M96.671 Fx tib/fib fol insrt ortho implnt/prosth/bone plt, right leg N28Iwszvey: AthenaComments: , , Views(X-RAY, TIBIA AND FIBULA): AP, Lateral , , , Ordering Provider - RASHEEDA GORDILLO , Exam: TIBIA FIBULA RIGHTAccession #: [id number] TIBIA FIBULA RIGHT, ANKLE RIGHT 3 VWS [...] AP(PA) and Lateral views were obtained. (accession [id number]), AP,Lateral and Oblique views were obtained. (accession [id number]) COMPARISON: August 03, 2017 FINDINGS: Soft tissues:No [...] tibia Electronically signed by:Lauren Clemente. Transcribed by: [email or web address], User Resident: Electronically Signed by: LAUREN CLEMENTE @ 08/31/2017 11:37 AMNormalTrinity Health System East CampusComment on above:Order Comment: No: Do not add to previous drawTIBIA FIBULA RIGHTon 96-35-0721IOWAP FIBULA RIGHTMercy Health Kings Mills HospitalDepartment of Kenzoefpr32[address] [place] [address] Patien t Name: PENNY ORDAZ : 1960Sex: MAge: Race: WhiteMRN: [id number]. Location: 84Patient Status: Date: 08/03/2017 10:05:00 AMCompleted Date: 08/03/2017 10:04 AMRequesting Provider: RASHEEDA GORDILLO Attending Provider: Report Copy To: Signs & Symptoms: M96.671 Fx tib/fib fol insrt ortho implnt/prosth/bone plt, right leg J16Kwwsvbb: AthenaComments: , , Views(X-RAY, TIBIA AND FIBULA): AP, Lateral, Oblique , , , Ordering Provider - RASHEEDA GORDILLO , Exam: TIBIA FIBULA RIGHTAccession #: [id number] TIBIA FIBULA RIGHT 08/03/2017 10:04 AM EST [...] healing Electronically signed by:Lauren Clemente. Transcribed by: [email or web address], User Resident: Electronically Signed by: LAUREN CLEMENTE @ 08/03/2017 12:03 [facility] Comment on above:Order Comment: No: Do not add to previous drawDischarge Summary on 91-73-8571Rsqqnlioi SummaryMR#: [id number] [facility] Admitted: [...] patient is 56-year-old male, [facility] [...] was deemed ready for discharge on 07/16/2017 [facility].DISCHARGE DISPOSITION: Home.DISCHARGE CONDITION: Stable.DISCHARGE INSTRUCTIONS: The [...] Dict: 07/21/2017/09:05 Sherry/CIELO Corriganate Trans: 07/22/2017 02:28 Sherry/Irwin_JN:[id number]: Dewey Enriquez M.D. [address] [place] [address]VajhkbOfiBarney Children's Medical CenterALBUMIN BLOODon 37-43-0509Xjyllgm4.3 g/dLLow3.5-5.7The [facility] HospitalComment on above:Order Comment: No: Do not add to previous drawPerformed By: #### 37043 ####[facility] [place] [address], [facility]AVA[facility] MEDICAL CENTERBBASIC METABOLIC PANELon 07-15-2017 Calcium8.5 mg/dLLow8.6-10.3The [facility] HospitalComment on above:Order Comment: No: Do not add to previous drawPerformed By: #### 28953 ####[facility] [place] [address], [facility]AVA[facility]ICAL CENTERB Bkhghxjj365 mmol/ASofuwu38-414Gjj [facility] HospitalComment on above:Order Comment: No: Do not add to previous drawPerformed By: #### 95844 ####[facility] [place] [address], [place] CO229 mmol/LFomspu00-92Dqs [facility] HospitalComment on above: Order Comment: No: Do not add to previous drawPerformed By: #### 59378 ####[facility] [place] [address], [place] Creatinine0.66 mg/dLLow0.70-1.30The [facility] HospitalComment on above:Order Comment: No: Do not add to previous drawPerformed By: #### 34095 ####[facility] [place] [address], [place] eGFR (black)mL/min/{1.73_m2}Normal>60The [facility] Comment on above:Order Comment: No: Do not add to previous drawPerformed By: #### 47872 ####[facility] [place] [address], USAeGFR (non-black)mL/min/{1.73_m2}Normal>60The [facility] HospitalComment on above:Order Comment: No: Do not add to previous draw Performed By: #### 04293 ####[facility] [place] [address], [facility]AVA[facility] MEDICAL CENTERBGlucose mass conc89 mg/wUXxckcr30-616Uby [facility] HospitalComment on above:Order Comment: No: Do not add to previous drawPerformed By: #### 39713 ####[facility] [place] [address], USAPotassium molar conc4.3 mmol/LNormal3.5-5.1 The [facility] HospitalComment on above:Order Comment: No: Do not add to previous drawPerformed By: #### 23265 ####[facility] [place] [address], TNJVsjzeh409 mmol/LNormal 136-145The [facility] HospitalComment on above:Order Comment: No: Do not add to previous drawPerformed By: #### 71305 ####[facility] [place] [address], USAUrea nitrogen9 mg/dL Normal7-25The [facility] HospitalComment on above:Order Comment: No: Do not add to previous drawPerformed By: #### 37273 ####[facility] [place] [address], USACBC COMPLETE BLOOD COUNTon 64-85-0825Dkebsotfwbj distribution width Auto Ratio (RBC)15.2 %Normal 11.5-16.9The [facility] HospitalComment on above:Order Comment: No: Do not add to previous drawPerformed By: #### 43733 ####[facility] [place] [address], [facility] MEDICAL CENTERBErythrocytes (RBC)3.00 mill/lq0Zlc7.30-5.90The [facility] HospitalComment on above: Order Comment: No: Do not add to previous drawPerformed By: #### 26909 ####[facility] [place] [address], [facility] CENTERB Hematocrit (HCT)29.6 %Low39.0-55.0The [facility] HospitalComment on above:Order Comment: No: Do not add to previous drawPerformed By: #### 01880 ####[facility] [place] [address], [facility] CENTERB Hemoglobin mass conc (Bld)9.9 g/dLLow13.9-16.3The [facility] HospitalComment on above:Order Comment: No: Do not add to previous drawPerformed By: #### 39640 ####[facility] [place] [address], GYUFSD82.0 hkSsys52.0-32.0The [facility] Comment on above:Order Comment: No: Do not add to previous drawPerformed By: #### 00968 ####[facility] [place] [address], [facility] MEDICAL CENTERBMCHC mass conc (RBC)33.4 g/zXNkdnkp81.0-36.0The [facility] HospitalComment on above:Order Comment: No: Do not add to previous draw Performed By: #### 42770 ####[facility] [place] [address], ICGXRV94.8 gXXwwxar06.0-100.0The [facility] HospitalComment on above:Order Comment: No: Do not add to previous draw Performed By: #### 31901 ####[facility] [place] [address], USAPLAT LFR591 Thou/lo9Jrtubz710-852Bel [facility] HospitalComment on above:Order Comment: No: Do not add to previous drawPerformed By: #### 64756 ####[facility] [place] [address], [facility] MEDICAL CENTERBWBC (Leukocytes)8.6 Thou/qx5Bagnhm6.0-10.0The [facility] HospitalComment on above:Order Comment: No: Do not add to previous drawPerformed By: #### 10573 ####[facility] [place] [address], [facility]AVA[facility] MEDICAL CENTERBOperative Reporton 07-15-2017 Operative ReportMR#: [id number] IUniversSt. Anthony's Hospital Pt. Name: Penny Ordaz Room #: [id number] Discharge Date: Birthdate: 1960 OPERATIVE REPORTDATE OF [...] a 56-year-old male, who is transferred from [facility] after sustaining a fall on the ice [...] 07/14/2017/02:49 P/Rasheeda Gordillo M.D.Date Trans: 07/14/2017 11:58 P/Irwin_JN:[id number]: Dewey Enriquez M.D. [facility] [address] [place] [address]EafbzvTpsBarney Children's Medical CenterPREALBUMINon 16-84-2732Wvapkjvvul14.2 mg/dLNormal 17.0-34.0The [facility] HospitalComment on above:Order Comment: No: Do not add to previous drawPerformed By: #### 66033 ####[facility] [place] [address], [facility] CENTERBTRANSFERRINon 07-15-2017 Fuyyxyjkgzc503 mg/eDZkuexu189-862Hmk [facility] HospitalComment on above:Order Comment: No: Do not add to previous drawPerformed By: #### 01611 ####[facility] [place] [address], [facility] CENTERB VITAMIN D 25-HYDROXYon 19-36-8164SDTQDWD D 25-[place]<13.0Low30.0-80.0The [facility] HospitalComment on above:Result Comment: >80.0 Toxicity possible Performed By: #### 51121 ####[address] [address], [facility]AVA[facility] MEDICAL CENTERB3D CT LOWER EXTREMITY WO CONTRAST RIGHTon 97-19-28213A CT LOWER EXTREMITY WO CONTRAST [facility] CenterDepartment of Auxzkrtwm[address] [place] [address] Patien t Name: PENNY ORDAZ : 1960Sex: MAge: Race: WhiteMRN: [id number]. Location: [id number] Status: IVisit #: [id number] Date: 07/14/2017 9:20:00 AMCompleted Date: 07/14/2017 11:03 AMRequesting Provider: RASHEEDA GORDILLO Attending Provider: REX HIGH Report Copy To: Signs & Symptoms: FractureHistory: Patient history not availableComments: R/O Fractures, Right ankle CT STAT without contrast to rule out posterior malleolus fracture. Patient scheduled for OR at 11AM.Exam: 3D CT LOWER EXTREMITY WO CONTRAST RIGHTAccession #: [id number] 3D CT LOWER EXTREMITY WO CONTRAST RIGHT [...] fracture Electronically signed by:Lauren Clemente. Transcribed by: [email or web address], User Resident: Electronically Signed by: LAUREN CLEMENTE @ 07/14/201711:41 AMNormalThe [facility] Comment on above:Order Comment: No: Do not add to previous drawALCOHOLon 72-96-8026BiiphbzNCFY [facility] Comment on above:Result Comment: Divide by 1000 to convert mg/dL to percent. Example: 100mg/dL = 0.1%.Performed By: #### 39769 ####[facility] [facility] [address], USABASIC METABOLIC PANELon 40-70-5814Czcykll9.9 mg/dLNormal8.6-10.3The [facility] Comment on above:Order Comment: No: Do not add to previous drawPerformed By: #### 72818 ####[facility] [place] [address], VJMMqizwpek294 mmol/KZwvs40-036Cyu [facility] Comment on above:Order Comment: No: Do not add to previous drawPerformed By: #### 32304 ####[facility] [place] [address], ZZVOW174 mmol/BGrxcdx81-19Eyu [facility] HospitalComment on above:Order Comment: No: Do not add to previous drawPerformed By: #### 38338 ####[facility] [place] [address], [place] Creatinine0.68 mg/dLLow0.70-1.30The [facility] HospitalComment on above:Order Comment: No: Do not add to previous drawPerformed By: #### 97006 ####[facility] [address], [place] eGFR (black)mL/min/{1.73_m2}Normal>60The [facility] Comment on above:Order Comment: No: Do not add to previous drawPerformed By: #### 24358 ####[facility] [place] [address], USAeGFR (non-black)mL/min/{1.73_m2}Normal>60The [facility] HospitalComment on above:Order Comment: No: Do not add to previous draw Performed By: #### 81723 ####[facility] [place] [address], [facility]ICAL CENTERBGlucose mass ahaj651 mg/dVUwvb50-587Ecb [facility] HospitalComment on above:Order Comment: No: Do not add to previous drawPerformed By: #### 99808 ####[facility] [place] [address], USAPotassium molar conc4.3 mmol/LNormal3.5-5.1 The [facility] HospitalComment on above:Order Comment: No: Do not add to previous drawPerformed By: #### 61678 ####[facility] [place] [address], KYDCarjtj370 mmol/LNormal 136-145The [facility] HospitalComment on above:Order Comment: No: Do not add to previous drawPerformed By: #### 71167 ####[facility] [place] [address], USAUrea ffuamxuu17 mg/dL Normal7-25The [facility] HospitalComment on above:Order Comment: No: Do not add to previous drawPerformed By: #### 75875 ####[facility] [place] [address], USACBC COMPLETE BLOOD COUNTon 74-82-2548Rgddbarwgqu distribution width Auto Ratio (RBC)14.9 %Normal 11.5-16.9The [facility] HospitalComment on above:Order Comment: No: Do not add to previous drawPerformed By: #### 35127 ####[facility] [place] [address], [facility] MEDICAL CENTERBErythrocytes (RBC)3.66 mill/bi7Bzw7.30-5.90The [facility] HospitalComment on above: Order Comment: No: Do not add to previous drawPerformed By: #### 06386 ####[facility] [place] [address], [facility] MEDICAL CENTERB Hematocrit (HCT)35.6 %Low39.0-55.0The [facility] HospitalComment on above:Order Comment: No: Do not add to previous drawPerformed By: #### 19416 ####[facility] [place] [address] Hemoglobin mass conc (Bld)12.2 g/dLLow13.9-16.3The [facility] HospitalComment on above:Order Comment: No: Do not add to previous drawPerformed By: #### 30017 ####[facility] [facility] [place] [address], QITHDZ44.3 szUrut05.0-32.0The [facility] Comment on above:Order Comment: No: Do not add to previous drawPerformed By: #### 18319 ####[facility] [place] [address], [facility] MEDICAL CENTERBMCHC mass conc (RBC)34.2 g/rSHlnygw93.0-36.0The [facility] HospitalComment on above:Order Comment: No: Do not add to previous draw Performed By: #### 59853 ####[facility] [place] [address], XYRRXZ10.3 dAJmdbug38.0-100.0The [facility] HospitalComment on above:Order Comment: No: Do not add to previous draw Performed By: #### 79219 ####[facility] [facility] [place] [address], USAPLAT KOI517 Thou/ky8Brqbhr484-821Qoq [facility] HospitalComment on above:Order Comment: No: Do not add to previous drawPerformed By: #### 32567 ####[facility] [place] [address].[place] [address], USAWBC (Leukocytes)9.4 Thou/go3Jxzuht9.0-10.0The [facility] HospitalComment on above:Order Comment: No: Do not add to previous drawPerformed By: #### 55140 ####[address] [place] [address], [place]APOC GLUCOSE LABon 07-14-2017 Glucose mass zpzc733 mg/aYDlei87-706Ncr [facility] Comment on above:Performed By: #### 53082 ####[address] [place] [address], USAPORTABLE ANKLE RIGHT 2 VWSon 26-98-0679KTMWKOMN ANKLE RIGHT 2 SUniversMercy HealthDepartment of Awfuwfzas[address] [place] [address] Patien t Name: ORDAZPENNY VELOZ Brit : 1960Sex: MAge: Race: WhiteMRN: [id number]. Location: [id number] Status: IVisit #: [id number] Date: 07/14/2017 3:15:00 PMCompleted Date: 07/14/2017 03:55 PMRequesting Provider: CORNELIA ROCA Attending Provider: REX HIGH Report Copy To: Signs & Symptoms: Post OPHistory: Patient history not availableComments: Hardware EvaluationExam: PORTABLE ANKLE RIGHT 2 VWSAccession #: [id number] PORTABLE ANKLE RIGHT 2 VWS 07/14/2017 3:55 [...] these findings. Electronically signed by:Oscar Still. Transcribed by:[email or web address], User Resident: ADRIEL SYKESElectronically Signed by: OSCAR STILL @ 07/16/2017 01:33 AMI personally read this/these film(s) with this [facility] HospitalComment on above:Order Comment: No: Do not add to previous drawPORTABLE ANKLE RIGHT 2 VWSUniversity Main Campus Medical CenterDepartment of Otmcmjxmr[address] [place] [address] Patien t Name: PENNY ORDAZ : 1960Sex: MAge: Race: WhiteMRN: [id number]. 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 Transcribed by: [email or web address], User Resident: Electronically Signed by: LAUREN CLEMENTE @ 07/14/2017 08:06 [facility] Comment on above:Order Comment: R/O FXPORTABLE KNEE RIGHT 2 VWSon 07-14-2017 PORTABLE KNEE RIGHT 2 SUniMemorial Health System Marietta Memorial HospitalDepartment of Dhglidebi[address] [place] [address], [place] [address] Patien t Name: PENNY ORDAZ : 1960Sex: MAge: Race: WhiteMRN: [id number]. 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 Transcribed by: [email or web address], User Resident: Electronically Signed by: LAUREN CLEMENTE @ 07/14/2017 08:06 AMNormalThe [facility] HospitalComment on above:Order Comment: R/O FXPORTABLE TIBIA FIBULA RIGHTon 27-04-6531YNBMFNTA TIBIA FIBULA RIGHTUnParkwood HospitalDepartment of Dbunrvslu[address] [place] [address] Patien t Name: PENNY ORDAZ : 1960Sex: MAge: Race: WhiteMRN: [id number]. Location: [id number] Status: IVisit #: [id number] Date: 07/14/2017 3:15:00 PMCompleted Date: 07/14/2017 03:55 PMRequesting Provider: CORNELIA ROCA Attending Provider: REX HIGH Report Copy To: Signs & Symptoms: Post OPHistory: Patient history not availableComments: Hardware EvaluationExam: PORTABLE TIBIA FIBULA RIGHTAccession #: [id number] PORTABLE TIBIA FIBULA RIGHT 07/14/2017 3:55 PM [...] findings. Electronically signed by:Oscar Still. Transcribed by: [email or web address], User Resident: ADRIEL SYKESElectronically Signed by: OSCAR STILL @ 07/16/2017 01:31 AMI personally read this/these film(s) with this residentHighland District HospitalComment on above:Order Comment: No: Do not add to previous drawPORTABLE TIBIA FIBULA RIGHTMercy Health Kings Mills HospitalDepartment of Jwmpzaijo[address] [place] [id number] Patien t Name: PENNY ORDAZ : 1960Sex: MAge: Race: WhiteMRN: [id number]. 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 Transcribed by: [id number], User Resident: Electronically Signed by: LAUREN CLEMENTE@ 07/14/2017 08:06 AMNormalThe Mercy Health Kings Mills HospitalComment on above:Order Comment: R/O FXPROTHROMBIN TIMEon 08-70-3291LID Coag RelTime (PPP) 1.06 {INR}Normal0.91-1.16The [facility] Mills HospitalComment on above:Order Comment: No: Do not [...] ACTION, CLINICALEFFECTIVENESS, AND OPTIMAL THERAPEU TIC RANGE. [id number];108:231S-246S.Performed By: #### [id number] ####[facility] [facility] [place] [address], [facility] MEDICAL CENTERBProthrombin time (PT) Coag time (PPP)13.8 aYpfxxj50.3-14.8The [facility] Comment on above:Order Comment: No: Do not add to previous drawResult Comment: ALL RESULTS MUST BE INTERPRETED WITH RESPECT TO BLOOD DRAWING ARTIFACTOR DILUTION ERROR OF ANTICOAGULANT AT THE TIME OF SAMPLING.Performed By: #### [id number] ####[facility] [facility] [place] [address], [facility] CENTERB RBC'S 2 UNITSon 52-83-7031VCUYWOWJZM INTERP 1COMPHighland District HospitalComment on above:Performed By: #### [id number] ####[facility] [facility] [place] [address], [facility] MEDICAL CENTERBCROSSMATCH INTERP 2COMP NormalTrinity Health System East CampusComment on above:Performed By: #### [id number] ####[place] [address] [facility] [place] [address], [facility] CENTERBPRODUCT CODE [id number] District Hospital Comment on above:Performed By: #### [id number] ####[facility] [facility] [place] [address], [facility] CENTERBPRODUCT CODE [id number] District HospitalComment on above:Performed By: #### [id number] ####[address] [place] [address], [facility] CENTERB PRODUCT STATUS 1RThe Bellevue HospitalComment on above: Result Comment: Result changed by IF on 07/18/2017 07:23. The previous value was XM.Performed By: #### [id number] ####[address] [place] [address], USAPRODUCT STATUS 2RThe Bellevue HospitalComment on above:Result Comment: Result changed by IF on 07/18/2017 07:23. The previous value was XM.Performed By: #### [id number] ####[address] [place] [address], [facility] CENTERB UNIT ABO 1AHighland District HospitalComment on above: Performed By: #### [id number] ####[facility] [facility] [place] [address], USAUNIT ABO 2AHighland District HospitalComment on above:Performed By: #### [id number] ####[address] [place] [address], [facility] CENTERBUNIT ID [id number]-PFwrpskCxdTrinity Health System East CampusComment on above:Performed By: #### 23091 ####[address] [place] [address], [facility]ENTERB UNIT ID [id number]-RXfezelBraTrinity Health System East CampusComment on above:Performed By: #### [id number] ####[address] [place] [address], USAUNIT RH 1PositiveNoBarney Children's Medical CenterComment on above:Performed By: #### [id number] ####[address] [place] [address], [facility] CENTERBUNIT RH 2Positive NormalTrinity Health System East CampusComment on above:Performed By: #### 27325 ####[address] [place] [address], USATIBIA FIBULA RIGHTon 88-05-6308IDQWH FIBULA RIGHTUnParkwood HospitalDepartment of Bfganujpa[address] [place] [id number] Patien t Name: PENNY ORDAZ : 1960Sex: MAge: Race: WhiteMRN: [id number]. Location: [id number] Status: IVisit #: [id number] Date: 07/14/2017 1:30:00 PMCompleted Date: 07/14/2017 02:20 PMRequesting Provider: RASHEEDA GORDILLO Attending Provider: REX HIGH Report Copy To: Signs & Symptoms: im rodding right tibiaHistory: im rodding right tibiaComments: im rodding right tibiaExam: TIBIA FIBULA RIGHTAccession #: [id number] TIBIA FIBULA RIGHT 07/14/2017 2:20 PM EST SIGNS AND SYMPTOMS: im rodding right tibia TECHNOLOGIST COMMENTS: intra-op right tibia jil, 2 minutes 40 seconds fluoro time, OR 5, QUESTION FOR THE RADIOLOGIST: im rodding right tibia PROTOCOL: AP(PA) and Lateral views were obtained. COMPARISON: None FINDINGS: Soft tissues: Bones: Joints: IMPRESSION: Documentation Electronically signed by:Lauren Clemente. Transcribed by: [id number], User Resident: Electronically Signed by: LAUREN CLEMENTE @ 07/14/2017 02:53 PMNormalThe [facility] Mills HospitalComment on above:Order Comment: No: Do not add to previous drawTYPE AND SCREENon 87-17-6237PRD INTERPRETATIONTriHealthComment on above: Performed By: #### [id number] ####[facility] [place] [address], USAANTIBODY SCREENNegativeNoBarney Children's Medical CenterComment on above:Performed By: #### 91117 ####[facility] [place] [address], USARH INTERPRETATIONPositive NormalThe [facility] Health [facility] Mills HospitalComment on above:Performed By: #### [id number] ####[facility] [place] [address], USAXR TIB-FIB RT 2Von 20-78-6720NV TIB-FIB RT [id number] [place] [address] Patient: PENNY ORDAZ Exam Date: 07/13/2017DOB: 1960 Gender:M : DR MELBA SANCHEZ . Admission #: [id number] : Order #: [id number] HERE TO VIEW EXAM RADIOLOGY REPORT PROCEDURE: [...] by: Kei Arreola M.D. on 07/14/2017 at 07:56[facility] Vital Signs Date TimeVital SignValuePerforming FgkabmikzHdhfcrsb54-70-0349 14:00-0400Body .7 Layla Atwood MD Work Phone: [facility]09-09-2025 14:00-0400 Body mass index (BMI) [Ratio]23.36 kg/o4HwsxccyRhona Atwood MD Work Phone: [facility]09-09-2025 14:00-0400 Body qyggixunhuo30.3 [degF]Rhona Atwood MD Work Phone: [facility]09-09-2025 14:00-0400 Body qimvxt06.49 kgRhona Atwood MD Work Phone: [facility]09-09-2025 14:00-0400 Diastolic blood acllcmic04 mm[Hg]Rhona Atwood MD Work Phone: [facility]09-09-2025 14:00-0400 Heart rate86 /minRhona Atwood MD Work Phone: [facility]09-09-2025 14:00-0400 Respiratory rate16 /Marcia Atwood MD Work Phone: [facility]09-09-2025 14:00-0400 SaO2% (BldA) [Mass fraction]100 %Rhona Atwood MD Work Phone: [facility]09-09-2025 14:00-0400 Systolic blood ifiwezyu395 mm[Hg]Rhona Atwood MD Work Phone: [facility]08-26-2025 10:49-0400 Body prfgpo185.5 cmRamo Taylor MD Work Phone: [phone]jPhilbh79-32-0449 10:49-0400Body mass index (BMI) [Ratio]22.73 kg/j6ZcnmuRamo Taylor MD Work Phone: [phone]wVwifhe07-77-2579 10:49-0400Body ndheshqvcdu57.81 [degF]Ramo Taylor MD Work Phone: [phone]iVznhch38-67-4636 10:49-0400Body krbdfi10.62 kg Ramo Taylor MD Work Phone: [phone]xTpechx21-92-7377 10:49-0400Diastolic blood cbogjzyd83 mm[Hg]Ramo Taylor MD Work Phone: [phone]kNqehci18-27-0990 10:49-0400Heart rate87 /Kelvin Taylor MD Work Phone: [phone]vCjlyvw95-31-9693 10:49-8928RbX1% (BldA) [Mass fraction]100 %Ramo Taylor MD Work Phone: [phone]oCpcbhq98-11-4053 10:49-0400Systolic blood icnfoexo005 mm[Hg]Ramo Taylor MD Work Phone: [phone]cusLmsyfv72-67-7912 10:02-0400Body risoce502.3 cm Dewey iSentiumlong DO Work Phone: [facility] Reibyy93-31-7207 10:02-0400Body mass index (BMI) [Ratio]23.23 kg/p5Iswhtv iSentiumlong DO Work Phone: [facility] Wkmlrf50-20-9513 10:02-0400Body fuoetpqcxgi31.9 [degF]Dewey Lucialong DO Work Phone: [facility] Ujopap09-98-4646 10:02-0400Body .4 kgDennis iSentiumlong DO Work Phone: [facility] Wtcdhf46-11-1366 10:02-0400Diastolic blood xngblydc79 mm[Hg]Dewey Furlong DO Work Phone: [facility] Gqxaiz28-88-9488 10:02-0400Heart rate 99 /minDoliviais Furlong DO Work Phone: [facility] Wseyko70-44-5124 10:02-0400 Respiratory rate20 /minDennis Furlong DO Work Phone: [facility] Gxvskb16-60-5926 10:02-2525EtB3% (BldA) [Mass fraction]100 %Dewey Furlong DO Work Phone: [facility] Hinajm89-50-7060 10:02-0400Systolic blood tlsapwfu118 mm[Hg]Dewey Enriquez DO Work Phone: [facility]08-06-2025 12:15-0400Diastolic blood atzwhxjm31 mm[Hg] FipfocyaavQnvmkFdhxut55-85-7503 12:15-0400Heart rate90 /min IgpgzcpsxyLrhlzZphnab83-69-6553 12:15-0400Respiratory rate18 /min HrtciuveoaQzwznGgwbms13-12-0052 12:15-2319UxG5% (BldA) [Mass fraction]99 % WmjqygisiwJrohtGofzct29-74-8797 12:15-0400Systolic blood hxtywcjr423 mm[Hg] XlrzlpfmapRfyglPahqkc92-22-5528 10:17-0400Body zxxbymcirnw64.81 [degF] UbmwidfcfqFrjoqWoinsw18-21-3852 10:46-0400Body mass index (BMI) [Ratio]21.84 kg/l7VhyevRamo Taylor MD Work Phone: [phone]kFwnbzx74-46-0929 10:46-0400Body xgozbduxbzs54.01 [degF]Ramo Taylor MD Work Phone: [phone]lDhkgeb15-06-4583 10:46-0400Body dixhuz36.81 kg Ramo Taylor MD Work Phone: [phone]bZkiokw52-78-5487 10:46-0400Diastolic blood gyglajpm01 mm[Hg]Ramo Taylor MD Work Phone: 1([phone]) [phone]zQgtzch28-24-0481 10:46-0400Heart rate80 /minRamo Taylor MD Work Phone: [phone]YsxeeFmctma26-49-1193 10:46-0400Respiratory rate18 /minRamo Taylor MD Work Phone: 1(194) [phone]PenraPuywku22-59-1138 10:46-0271XeU2% (BldA) [Mass fraction]100 %Ramo Taylor MD Work Phone: [phone]iJmejyq67-89-9502 10:46-0400Systolic blood hbnofdno679 mm[Hg]Ramo Taylor MD Work Phone: 1(770) [phone]BjjcyGbelcu10-65-3501 09:49-0400Body .5 cm Bone WkvchgYvlmsKjavbo43-38-5804 09:49-0400Body mass index (BMI) [Ratio]22.22 kg/m2Bone DdbvelFcxyfAwkheb93-98-0483 09:49-0400Body qtrrlanxmci89.39 [degF]Bone QeiyhcJlpakOvxuxd80-67-5612 09:49-0400Body naiwfr30 kgBone BiopsyMetroWilson Memorial Hospital 01-21-2025 09:49-0400Diastolic blood lipnygkz79 mm[Hg]Bone BiopsyMetHolmes County [facility] 01-21-2025 09:49-0400Heart rate82 /minBone OsneauBlaprApcdfs45-36-8046 09:49-0400Respiratory rate14 /minBone UaqalqTcnqmAxpqtd70-04-6214 09:49-0400 SaO2% (BldA) [Mass fraction]100 %Bone RokhvtBvkqpEemnug68-80-3697 09:49-0400 Systolic blood addoniqx24 mm[Hg]Bone BdiqbfQvpdzEyvoqs11-97-6253 11:19-0400Body uagskf414 cmRamo Taylor MD Work Phone: [phone]) [phone]jZyvaqa95-24-8190 11:19-0400Body mass index (BMI) [Ratio]22.64 kg/u1OapcxRmao Taylor MD Work Phone: GbrklBidltb43-798402NvoxvWnqlgs91-89-4022 11:19-0400Body dxxthtnbmum39.5 [degF]Ramo Taylor MD Work Phone: 1(717) [phone]YvboqRgooyx24-99-1374 11:19-0400Body .54 kg Ramo Taylor MD Work Phone: 1(536) [phone]GewzgQchxje76-34-8213 11:19-0400Diastolic blood lhkgeghl37 mm[Hg]Ramo Taylor MD Work Phone: [phone]zJivxnh81-28-4429 11:19-0400Heart rate91 /Kelvin Taylor MD Work Phone: [phone]jCaggcx02-56-2107 11:19-5139NeP7% (BldA) [Mass fraction]98 %Ramo Taylor MD Work Phone: [phone]nIsnqeb23-30-7993 11:19-0400Systolic blood izqdwhfa246 mm[Hg]Ramo Taylor MD Work Phone: [phone]upoYwhvsa56-79-6201 09:25-0400Body .3 cm Dewey Wilsonng DO Work Phone: [facility] Ngfyij60-94-8039 09:25-0400Body mass index (BMI) [Ratio]22.29 kg/z0Kpqxmd Furlong DO Work Phone: [facility] Pptydj46-40-4807 09:25-0400Body jtjdsejhbhm75.59 [degF]Dewey Myerslong DO Work Phone: [facility] Glxldg78-68-0955 09:25-0400Body .49 kgDewey Myerslong DO Work Phone: [facility] Niavej02-44-9013 09:25-0400Diastolic blood ielxnlzf97 mm[Hg]Dewey Myerslong DO Work Phone: [facility] Uhnhld87-88-5446 09:25-0400Heart rate 87 /Fifiis Lucialong DO Work Phone: [facility] Vkhjjf54-53-8001 09:25-0400 Respiratory rate18 /minDennis Furlong DO Work Phone: [facility] Vcghfu71-67-6274 09:25-0603XgY3% (BldA) [Mass fraction]98 %Dewey Myerslong DO Work Phone: [facility] Axfmhj27-05-8730 09:25-0400Systolic blood dtdzeazt006 mm[Hg]Dewey Myerslong DO Work Phone: [facility] Bqvrgi88-90-3549 09:26-0400Body wceqsq820.3 cmDenemilie Myerslong DO Work Phone: [facility] Ucftjp80-03-2108 09:26-0400Body mass index (BMI) [Ratio]23.26 kg/b7Uoyfmm Furlong DO Work Phone: [facility] Fhzkhw12-51-7291 09:26-0400Body irxbaufegvm56.5 [degF]Dewey Wilsonng DO Work Phone: [facility] Wufpvh19-02-8352 09:26-0400Body fryjjq16.49 kgDewey Wilsonng DO Work Phone: [facility] Lazaoe35-08-9250 09:26-0400Diastolic blood disvnolv89 mm[Hg]Dewey Wilsonng DO Work Phone: [facility] Ahigjs11-26-5670 09:26-0400Heart rate 91 /Chidi Wilsonng DO Work Phone: [facility] Vqgnqj63-57-3231 09:26-0400 Respiratory rate18 /Chidi Wilsonng DO Work Phone: [facility] Vwssab13-42-3309 09:26-9940RgS8% (BldA) [Mass fraction]100 %Dewey Wilsonng DO Work Phone: [facility] Mknpyn49-27-8374 09:26-0400Systolic blood uodcxtow479 mm[Hg]Dewey Wilsonng DO Work Phone: [facility] Apuzlq15-48-7677 10:30-0400Body pytbgq344.3 Mago Stuart MD Work Phone: [facility] Yhfhfw94-50-0770 10:30-0400Body mass index (BMI) [Ratio]23.2 kg/p5Evzia Mckenzie MD Work Phone: [facility]De[facility]Med03-20-2025 10:30-0400Body vbibfvonrnj41.5 [degF]Keyur Stuart MD Work Phone: [facility]03-20-2025 10:30-0400Body ismtyz74.31 kgKyeur Stuart MD Work Phone: [facility]03-20-2025 10:30-0400Diastolic blood mm[Hg]Keyur Stuart MD Work Phone: [facility]03-20-2025 10:30-0400Heart rate 96 /minKeyur Stuart MD Work Phone: [facility]03-20-2025 10:30-0400 Respiratory rate16 /minKeyur Staurt MD Work Phone: [facility] CenterIG[facility]03-20-2025 10:30-1052TvC3% (BldA) [Mass fraction]98 %Keyur Stuart MD Work Phone: [facility] Center[facility]03-20-2025 10:30-0400Systolic blood qfoccptp933 mm[Hg]Keyur Stuart MD Work Phone: [facility]03-07-2025 09:04-0500Body yzdwah769.3 cmDenemilie MyersWantable, Inc.ng DO Work Phone: [facility] CenterIG[facility]03-07-2025 09:04-0500Body mass index (BMI) [Ratio]23.71 kg/c4Boqrti Furlong DO Work Phone: [facility]De[facility]03-07-2025 09:04-0500Body zjwktgzecgu19.39 [degF]Dewey MyersWantable, Inc.ng DO Work Phone: [facility]De[facility]03-07-2025 09:04-0500Body mcmlyc74.85 kgDenemilie Myerslong DO Work Phone: [facility]De[facility]03-07-2025 09:04-0500Diastolic blood jbejoffq88 mm[Hg]Dewey Myerslong DO Work Phone: [facility] HospitalInnovid Rnjltc18-01-2653 09:04-0500Heart rate 101 /minDoliviais Lucialong DO Work Phone: [phone] Suzeae63-53-0358 09:04-0500 Respiratory rate18 /minDennis Lucialong DO Work Phone: [phone] Mvupvu73-30-2556 09:04-1464HvP7% (BldA) [Mass fraction]93 %Dewey Furlong DO Work Phone: [facility] Ohdrit30-03-2433 09:04-0500Systolic blood xkazzwea864 mm[Hg]Dewey Myerslong DO Work Phone: [facility] Poxguu74-53-5012 10:29-0500Body .3 cmPatricknis Lucialong DO Work Phone: [facility] CenterIG[facility]02-20-2025 10:29-0500Body mass index (BMI) [Ratio]25.67 kg/u0Zxdtdr Furlong DO Work Phone: [facility] Accwfv83-36-0259 10:29-0500Body jxbodtdyvbb92.5 [degF]Dewey Myerslong DO Work Phone: [facility] CenterIG[facility]02-20-2025 10:29-0500Body .83 kgDenemilie Myerslong DO Work Phone: [facility] CenterIG[facility]02-20-2025 10:29-0500Diastolic blood rdpbasba25 mm[Hg]Dewey Myerslong DO Work Phone: [facility] CenterIG[facility]02-20-2025 10:29-0500Heart rate 85 /Fifiis Lucialong DO Work Phone: [facility] Gxtzkh34-64-7221 10:29-1428XrV1% (BldA) [Mass fraction]96 %Dewey Lucialong DO Work Phone: [facility] HospitalDe[facility]ovaMed02-20-2025 10:29-0500Systolic blood frnfojir183 mm[Hg]Dewey Myerslong DO Work Phone: [facility]De[facility]12-09-2024 13:51-0500Body cmeeox413.3 cmDenemilie Myerslong DO Work Phone: [facility]De[facility]12-09-2024 13:51-0500Body mass index (BMI) [Ratio]24.04 kg/t8Lhguan Furlong DO Work Phone: [facility]De[facility]12-09-2024 13:51-0500Body vdyyfmoklng48.9 [degF]Dewey Myerslong DO Work Phone: [facility]De[facility]12-09-2024 13:51-0500Body dfomje31.85 kgDenemilie Wilsonng DO Work Phone: [facility]De[facility]12-09-2024 13:51-0500Diastolic blood plzognzm63 mm[Hg]Dewey Myerslong DO Work Phone: [facility]De[facility]12-09-2024 13:51-0500Heart rate 94 /Chidi Myerslong DO Work Phone: [facility]12-09-2024 13:51-0500 Respiratory rate18 /minDoliviais Lucialong DO Work Phone: [facility]De[facility]12-09-2024 13:51-2252ChV2% (BldA) [Mass fraction]95 %Dewey Myerslong DO Work Phone: [facility] HospitalDe[facility]Med12-09-2024 13:51-0500Systolic blood omurzriv361 mm[Hg]Dewey Myerslong DO Work Phone: [facility] HospitalInnovid [facility] Encounters Encounter DateEncounter TypeCare ProviderFacilityStart: 05-29-2025 End: 30-84-8858uuqykufbreRQZEIUAOhioHealth Grant Medical Centertart: 69-66-1067dcabdeilpfHPOJOKUOhioHealth Nelsonville Health Centertart: 47-17-9067xnvpzxhxlhKPMS A [facility] Daytontart: 05-29-2025 End: 43-19-4900cziosmdtmvOUTNKLUWayne HealthCare Main Campustart: 04-30-2025 End: 94-41-9449Ikcedk outpatient visit 40 minutesRhona Atwood MD Work Phone: [facility] HospitalComment on above:Primary myelofibrosis (Multi)Start: 04-30-2025 End: 87-53-6448bgbzhligzrZQEFGHXWayne HealthCare Main Campustart: 03-26-2025 End: 78-51-6114qjjgobpbgzWLKFXLFOhioHealth Nelsonville Health Centertart: 03-26-2025 End: 81-64-2178Cfnvcn consultation new/estab patient 80 minRhona Atwood MD Work Phone: [facility] HospitalComment on above:Primary myelofibrosis (Multi) (Primary Dx)Start: 03-26-2025 End: 68-35-2444sndloqqfldCTQYSSLWayne HealthCare Main Campustart: 03-21-2025 End: 68-40-2992Upwmdgaov encounterRamo Taylor MD Work Phone: [facility] Oncology MedicalComment on above:Referral to SpecialistStart: 03-20-2025 End: 85-88-8151Mhycynshx encounterKorey Bueno MD Work Phone: [facility] [place] Oncology MedicalStart: 03-19-2025 End: 60-06-4427Cgmgyrykw encounterKorey Bueno MD Work Phone: [facility] [place] Oncology MedicalStart: 03-13-2025 End: 31-94-6727Iqdwhgntj encounterWillow DURANT Work Phone: [facility] Oncology MedicalComment on above:Encounter opened in errorStart: 03-12-2025 End: 83-18-4203Bfntph outpatient visit 25 minutesRamo Taylor MD Work Phone: [facility] Oncology MedicalComment on above:Dx: Myelofibrosis (HCC) (Primary Dx)Start: 03-12-2025 End: 69-80-5195Oackyz Christine Ramos PharmD Work Phone: [facility] PharmacyStart: 03-07-2025 End: 91-43-5081Mcdnhc outpatient visit 15 minutesDewey Enriquez DO Work Phone: [facility] Family MedicineComment on above:Primary myelofibrosis (CMS-HCC) (Primary Dx); Severe anemiaStart: 03-07-2025 End: 56-64-5627ubnjjztzohUUTLQTFamily Health West Hospital Ambulatory PPGStart: 03-05-2025 End: 52-90-9954Zowirsthk encounterRamo Taylor MD Work Phone: [facility] Oncology MedicalStart: 02-26-2025 End: 05-95-3504Pggqdycxj encounterRamo Taylor MD Work Phone: [facility] Oncology MedicalStart: 02-20-2025 End: 45-42-8644chkmxarrlmGPEWVRL PROVIDERFacility:METROHealthStart: 02-20-2025 End: 33-56-9087Ckontkdsqp hospital visit by physicianMh Ct ProceduresMetroWilson Memorial Hospital Radiology CTComment on above:Pancytopenia; Myelofibrosis (HCC); MDS (myelodysplastic syndrome) (HCC)Start: 02-14-2025 End: 16-77-6508Ldygqivnr encounterJuliette Schumacher RN Work Phone: [facility] Oncology MedicalStart: 02-12-2025 End: 68-83-0723Ugfzaj Harris Taylor MD Work Phone: [facility] Oncology MedicalStart: 02-11-2025 End: 09-82-5470Wgwylazsh encounterRamo Taylor MD Work Phone: [facility] Oncology MedicalStart: 02-05-2025 End: 59-18-1288Vqxzwb outpatient visit 25 minutesRamo Taylor MD Work Phone: [facility] Oncology MedicalComment on above:Dx: Pancytopenia (Primary Dx)Start: 02-05-2025 End: 38-26-4033Xnoiwt OnlySarah Modoc PharmD Work Phone: [facility] PharmacyStart: 01-21-2025 End: 46-97-0312ymhoshkyxfVZJJIWG PROVIDERFacility:[facility]Start: 01-21-2025 End: 98-98-9143Pbmgitchpi hospital visit by physicianBone Marrow Biopsy [facility] MedicalComment on above:Dx: Pancytopenia (Primary Dx)Start: 01-15-2025 End: 54-63-7014Hdlzvw OnlySarah Modoc PharmD Work Phone: [facility] PharmacyComment on above:Dx: Pancytopenia (Primary Dx)Start: 12-05-2024 End: 63-88-9308Xzysoz outpatient visit 15 minutesDewey Enriquez DO Work Phone: [facility] Internal [facility] - Family MedicineComment on above:Pleural effusion, right (Primary Dx); Primary myelofibrosis ([facility])Start: 12-05-2024 End: 80-59-0645eovmgryywiYJVRKJ [facility] PPGStart: 11-27-2024 End: 59-16-1251Etpsnwtkw encounterRamo Taylor MD Work Phone: [facility] MedicalStart: 11-26-2024 End: 87-91-0790Udmgudbfk Vidal Taylor MD Work Phone: [facility] MedicalStart: 11-16-2024 End: 74-02-6737Bbwhkquhm encounterSfilippo Al RMAProMedica Physicians Pulmonary/Sleep MedicineStart: 11-01-2024 End: 31-43-5244wskhamybdxVIMQFF G [facility]GHol[facility] PPGStart: 11-01-2024 End: 43-15-3685Jvgoob outpatient visit 15 minutesDenemilie Myerslong DO Work Phone: [facility] Internal Medicine - Family MedicineComment on above:Primary myelofibrosis (CMS-HCC) (Primary Dx); Pleural effusion, right; Memory lossStart: 10-09-2024 End: 09-94-6097noyivyvhndIikfok Furlong DO Work Phone: [facility] Work Phone: Start: 10-09-2024 End: 87-95-9603Xeqpmvfw ReferredDennis Lucialong DO Work Phone: [facility]-LAB [facility] Spec [facility]ospStart: 10-04-2024 End: 21-20-0873Jjdvowxlaieae procedureCandace Alfredo RNDorotAscension Borgess Hospital - Medical OncologyStart: 10-04-2024 End: 99-36-7901Oltkwb outpatient visit 40 minutesKeyur Stuart MD Work Phone: [facility] - Medical OncologyComment on above:Primary myelofibrosis (CMS-HCC) (Primary Dx); Severe anemia; Lymphadenopathy, inguinal; SplenomegalyStart: 10-04-2024 End: 01-51-9807alhclblctiIZUDS N [facility] HospitalStart: 10-01-2024 End: 88-03-5623Rkphom OnlyDennis Radha Myerslong DO Work Phone: [facility] - Family MedicineComment on above:Severe anemia (Primary Dx)Start: 27-62-7838Moj-patient / Non-visitDennis Furlong DO Work Phone: [facility] Work Phone: Start: 09-26-2024 End: 25-93-5042Tfxcdqw encounter procedureDennis Furlong DO Work Phone: [facility]-Res[facility] Therapy Work Phone: Start: 09-26-2024 End: 34-43-7995aegeyccnqqQbhyyk Furlong DO Work Phone: [facility] Work Phone: Start: 09-21-2024 End: 01-11-7243ewmewxfxcuFATZFK Radha MYERSLONGProMedica Penelope HospitalStart: 09-21-2024 End: 36-04-8595Aulhmipkqbxo care manage srvc 14 day dischargeDshila Radha Myersaly DO Work Phone: [facility] - Family MedicineComment on above:Severe anemia (Primary Dx); Lymphadenopathy, inguinal; Ex-cigarette smoker; Hyperglycemia; Special screening for malignant neoplasm of colonStart: 09-21-2024 End: 35-55-8904ywrvkmtiuaOKVKNN G [facility] PPGStart: 09-12-2024 End: 13-84-5568Uvxlpscah encounterDakarla Cha CMAProMedica Physicians Pulmonary/Sleep MedicineStart: 09-08-2024 End: 09-56-7957Gzqpzvqwp encounterKelmatt [facility] FranciscoMedica Call CenterComment on above:Consult (Right pleural effusion concern for malignancy)Start: 09-08-2024 End: 44-19-7099Mxaiocaoxa and management of inpatientMICHAEL W SAADProMedica Penelope HospitalStart: 09-07-2024 End: 85-24-9056Jvmkuzcse department patient visitPAUL R WALKERProMedica Benjamin HospitalStart: 09-06-2024 End: 16-43-8439ygwuxesumsGAQLTP Radha MYERSLONGProMedica Penelope HospitalStart: 09-06-2024 End: 70-76-3252Rxqdvkxzp encounterDolormumtaz DatelandProMedica Call CenterComment on above:CRITICAL LABStart: 09-06-2024 End: 54-92-5337Mizpiq outpatient visit 25 minutesDewey Radha Myersaly DO Work Phone: [facility] - Family MedicineComment on above:Memory loss (Primary Dx); Hot flashes; Cigarette smokerStart: 09-06-2024 End: 96-88-8341uhpkvxswfjBFKDTLCommunity [facility] [place] PPGStart: 07-23-2024 End: 06-86-8574Yyawirknh encounterLouiswill Victorvladimir CULPHolzer Health System [facility] Centertart: 06-29-2024 End: 04-83-6964Dhonqt OnlyPatrickemilie Enriquez DO Work Phone: [facility] Internal [facility] Centertart: 06-25-2024 End: 99-92-8674xmnzfyzeveOCJKVD Radha [facility] Daytontart: 06-25-2024 End: 30-53-4824Vhwapgk encounter procedureDewey Enriquez DO Work Phone: [facility] Internal [facility] - [facility] HospitalComment on above:Welcome to Medicare preventive visit (Primary Dx); Screening for depression; Screening for heart disease; Colon cancer screening declined; Prostate cancer screening declinedStart: 06-25-2024 End: 74-17-6314Fszuaxv encounter statusDewey Enriquez DO Work Phone: [facility] Work Phone: Start: 06-25-2024 End: 27-97-1713evtvxlgbuqBQBHVBCommunity Hospital [facility] [place] PPGStart: 00-54-0867Zybubbmtu for general adult medical examination without abnormal findingsDEWEY [facility] PPGStart: 12-14-2017 End: 79-77-8248NyjevffnirAPIQXW [facility] WOODBURYNGFacility:UTMCStart: 10-19-2017 End: 75-05-9656ItiibghyrfRYGKUB FURNGFacility:UTMCStart: 10-17-2017 End: 46-52-4406NclugezayyNYRTNA FURNGFacility:UTMCStart: 08-31-2017 End: 51-27-4863EepscsynfzHGNUPT FURNGFacility:UTMCStart: 08-03-2017 End: 94-41-0262KpywcvwcpkUTEWDQHUDYN SANFORDFacility:UTMCStart: 07-14-2017 End: 68-72-9823Lyibkqfvnw and management of [facility] Facility:[facility]ITALtart: 07-13-2017 End: 99-52-5147PyfuvlbzrlHZLF HAYFacility:H1 Procedures DateProcedureProcedure DetailPerforming ClinicianStart: 45-22-7136Iprsn depression screening assessmentDennis Furlong DO Work Phone: Start: 64-19-0071Tmfmntipkk bone marrow biopsies & aspirationEmiliano Taylor MD Work Phone: Start: 49-78-3736Yavdb depression screening assessment Dewey Furlong DO Work Phone: Start: 58-06-5955Ybqko depression screening assessment Dewey Furlong DO Work Phone: Start: 53-73-9350Chpjar-up visitFollow-upSELECT MEDICAL [facility] EDWIN SHAWJAC STUART Start: 80-47-8285Uuidi depression screening assessmentDennis Furlong DO Work Phone: Start: 10-22-4468Fjoxz depression screening assessment Dewey Furlong DO Work Phone: Start: 15-95-9172Rjzexa-up visitFollow-[facility]arteret Health CareOLIVIA G [facility] WOODBURYNGStart: 76-64-9748Lmmte depression screening assessmentDennis Furlong DO Work Phone: Start: 74-59-2147FOJZICXDK OF INT FIX INTO R TIBIA, PERC APPROACHCHRISTOPHER SENECAStart: 23-96-2944BHZAKKTJJM RIGHT TIBIA WITH INTRAMED FIX, OPEN APPROACHCHRISTOPHER SENECAStart: 74-85-4497OHQQIWXDOP RIGHT TIBIA, EXTERNAL APPROACHRISTOPHER SENECA Plan of Treatment DateCare ActivityDetailAuthorStart: 08-01-8109QNA vaccine (adult) (1 - 1-dose 75+ series)RSV vaccine (adult) (1 - 1-dose 75+ series)[facility]Start: 49-71-8480Kqohu panelCholesterolMetroHealthStart: 80-74-4602WVfW,Tdap and Td Vaccines (2 - Td or Tdap)DTaP,Tdap and Td Vaccines (2 - Td or Tdap)[facility] SystemStart: 57-15-5332UCmU/Tdap/Td Vaccines (2 - Td or Tdap)DTaP/Tdap/Td Vaccines (2 - Td or Tdap)[facility] HospitalStart: 03-26-2026 Diabetes mellitus screeningDiabetes ScreeningGreene Memorial Hospital Start: 78-57-5389Xrnox BMI ScreeningAdult BMI ScreeningEast [facility] System Start: 49-86-2303Ojqasvucgv ScreeningDepression ScreeningEast [facility] Hospital System Start: 61-55-0432Rgqh Risk ScreeningFall Risk ScreeningEast [facility] System Start: 51-40-8682Shvfiop ScreeningTobacco ScreeningEast [facility] SystemStart: 62-36-2724Sbosl BMI ScreeningAdult BMI ScreeningEast [facility] SystemStart: 27-73-8179Zvttxxbhiu ScreeningDepression ScreeningEast [facility] SystemStart: 23-47-5616Gfhn Risk ScreeningFall Risk ScreeningEast [facility] SystemStart: 14-55-1106Xvqgvrp ScreeningTobacco ScreeningMain Campus Medical Centerca [facility] SystemStart: 24-87-5924Jtiln BMI ScreeningAdult BMI ScreeningEast [facility] SystemStart: 86-70-1404Aewbzawdwk ScreeningDepression ScreeningEast [facility] SystemStart: 55-61-0498Hwbi Risk ScreeningFall Risk ScreeningEast [facility] SystemStart: 52-49-7287Jmtlasc ScreeningTobacco ScreeningMain Campus Medical Centerca [facility] SystemStart: 63-62-4987Xjrfn BMI ScreeningAdult BMI ScreeningMain Campus Medical Centerca [facility] SystemStart: 01-04-5356Zzcifjj ScreeningTobacco ScreeningMain Campus Medical Centerca [facility] SystemStart: 43-10-9329Ghttt BMI ScreeningAdult BMI ScreeningMain Campus Medical Centerca [facility] SystemStart: 02-99-3404Qlfpozgkmu ScreeningDepression ScreeningEast [facility] SystemStart: 06-63-5073Ktmb Risk ScreeningFall Risk ScreeningEast [facility] SystemStart: 29-31-8476Jgdubze ScreeningTobacco ScreeningEast [facility] SystemStart: 89-05-6199Iawop BMI ScreeningAdult BMI ScreeningProSelect Medical Specialty Hospital - Youngstownca Health SystemStart: 22-71-0996Hplgefu ScreeningTobacco ScreeningEast [facility] SystemStart: 94-22-3211Sxkud BMI ScreeningAdult BMI ScreeningProKettering Health Miamisburg SystemStart: 46-83-2271Lmxmauyzom ScreeningDepression ScreeningProKettering Health Miamisburg SystemStart: 66-55-5807Gvqi Risk ScreeningFall Risk ScreeningProKettering Health Miamisburg SystemStart: 15-25-7235Kvqrddd ScreeningTobacco ScreeningEast [facility] SystemStart: 10-30-9605Ndiubmtbr for malignant neoplasm of colonColon Cancer Screening 3 Year CologuardEast [facility] Regional Hospital SystemComment on above:Postponed from 10/07/2003 (Patient Refused)Start: 07-08-2025 End: 35-82-6612Otaokkh encounter ovqawtgnl84/22/2025 9:00 AM EST Office Visit [facility] [address] [place] [address] Dewey Enriquez, [address] [facility], [place] [address] [facility] - Family MedicineStart: 91-72-8818Nntsv BMI ScreeningAdult BMI ScreeningEast [facility] SystemStart: 34-94-2212Okvipjanpn ScreeningDepression ScreeningEast [facility] Hospital SystemStart: 56-14-7599Lsij Risk ScreeningFall Risk ScreeningEast [facility] SystemStart: 12-09-2025Medicare Annual Wellness VisitMedicare Annual Wellness VisitEast Ohio Regional Hospital SystemStart: 31-04-8529Wxwbsye ScreeningTobacco ScreeningEast [facility] Regional Hospital SystemStart: 72-62-0161Nlpwlj wellness visitAnnual Wellness Visit (G0438)[facility]HealthStart: 04-30-2025 End: 14-84-3598Bxhishqsqlhl consultation with zksuows2604/30/2025 11:00 AM EDT Telemedicine [facility] [id number] [place] [address] [address] [place] [address] [place] [address] [place], [place] [id number] Rafal Cancer [facility] Hospitaltart: 00-42-2603HSLJC-19 Vaccine (#1)COVID-19 Vaccine (#1)[facility] HospitalStart: 54-16-5180Igjrbnhta vaccinationInfluenza Vaccine (#1)[facility] Start: 03-26-2025 End: 77-34-5335DDJ DNA Type [facility] Work Phone: Comment on above:Expected: 03/26/2025 (Approximate), Expires: 03/26/2026Start: 03-26-2025 End: 92-06-1207VYP HR Type, BuccalGreene Memorial Hospital Work Phone: Comment on above:Expected: 03/26/2025 (Approximate), Expires: 03/26/2026Start: 03-26-2025 End: 96-42-6435LJC Transplant Antibody PanelCROWNPOINT HEALTH [facility] Service Area Work Phone: comment on above:Expected: 03/26/2025 (Approximate), Expires: 03/26/2026Start: 84-32-4831Akgzmpinh vaccinationEast [facility] Regional Hospital System Start: 03-12-2025 End: 21-42-1542Aimeksc encounter jmzidkubi50/26/2025 11:30 AM EDT Appointment [facility] Oncology Medical [address] [place] [address] Ramo Taylor MD [address] [place] [address] [facility] Oncology MedicalStart: 03-07-2025 End: 11-50-6429Xdewfpn encounter atgbynoaj73/21/2025 10:00 AM EDT Office Visit [facility] [address] [facility] [place] [address] Dewey Enriquez, DO [address] [facility], [place] [address] [facility] - Family MedicineStart: 02-20-2025 End: 40-69-2109Fdfexrz encounter xzkkdnhfu36/06/2025 11:00 AM EDT Appointment [facility] [address] [place] [address] [facility] Radiology CTStart: 02-12-2025 End: 85-64-0561BUD panel - Blood by Automated countCOMPLETE BLOOD COUNT Lab STAT Abnormal findings on diagnostic imaging of other specified body structures Expected: 02/12/2025, Expires: 02/12/2026MetroHealthComment on above:Expected: 02/12/2025, Expires: 02/12/2026Start: 02-12-2025 End: 48-67-1254CST W Auto Differential panel - BloodCOMPLETE BLOOD COUNT W/DIFF Lab STAT Pancytopenia Myelofibrosis (HCC) MDS (myelodysplastic syndrome) (HCC) Expected: 02/12/2025 (Approximate), Expires: 02/12/2026MetroHealthComment on above:Expected: 02/12/2025 (Approximate), Expires: 02/12/2026Start: 02-12-2025 End: 02-47-1591Cgvlikyi chemistry procedureMISCELLANEOUS SEND OUT TEST Lab STAT Pancytopenia Myelofibrosis (HCC) MDS (myelodysplastic syndrome) (HCC) Expected: 02/12/2025 (Approximate), Expires: 02/12/2026MetroHealthComment on above: Expected: 02/12/2025 (Approximate), Expires: 02/12/2026Start: 02-12-2025 End: 51-52-5695UT INTERVENTIONAL RADIOLOGY PROCEDURE SERVICEXA INTERVENTIONAL RADIOLOGY PROCEDURE SERVICE Imaging Routine Pancytopenia Myelofibrosis (HCC) MDS (myelodysplastic syndrome) (HCC) Expected: 02/12/2025, Expires: 02/12/2026THE [facility]IAL HOSPITALAccedo SYSTEM Work Phone: Comment on above:Expected: 02/12/2025, Expires: 02/12/2026Start: 02-05-2025 End: 18-90-0449Dndahvj encounter /22/2025 11:00 AM EDT Appointment [facility] Oncology Medical [address] [place] [address] Ramo Taylor MD [address] [place] [address] [facility] Oncology MedicalStart: 01-21-2025 End: 92-29-9948Vrjgich encounter himoqqsme11/07/2025 10:00 AM EDT Appointment [facility] Oncology Medical [address] [place] [address] IzlikCsxjkj Oncology MedicalStart: 01-15-2025 End: 42-54-9402Quzcbcu encounter rlqoskwmb68/01/2025 11:00 AM EDT Appointment [facility] Oncology Medical [address] [place] [address] Ramo Taylor MD [address] [place] [address] [facility] Oncology MedicalStart: 01-03-2025 End: 11-14-0446Emsrssh encounter uzvovhcty53/19/2025 11:00 AM EDT Office Visit [facility] - Medical Oncology [address] [place] [address] Keyur Stuart [place] [address] [facility] - Medical OncologyStart: 44-25-6662Vqcpwwivv aortic aneurysm screeningAbdominal Aortic Aneurysm (AAA) ScreenEast Ohio Regional Hospital SystemComment on above:Postponed from 10/07/2023 (Patient Refused)Start: 12-05-2024 End: 78-29-5100MA Chest PA and LateralX-ray chest 2 views Imaging Routine Pleural effusion, right Expected: 12/05/2024, Expires: 12/05/2025[facility] Work Phone: Comment on above:Expected: 12/05/2024, Expires: 12/05/2025Start: 12-05-2024 End: 12-51-1125Zfyllfg encounter jubfgmzlp87/21/2025 9:30 AM EDT Office Visit [facility] [address] [place] [address] Dewey Enriquez, [address] [place] [address] [facility] - Family MedicineStart: 11-01-2024 End: 84-87-1632ZX Chest PA and LateralX-ray chest 2 views Imaging Routine Pleural effusion, right Expected: 11/01/2024, Expires: 11/01/2025[facility] Work Phone: Comment on above:Expected: 11/01/2024, Expires: 11/01/2025Start: 10-25-2024 End: 12-90-6829Ryabhem encounter wkgjucsug00/10/2025 2:00 PM EDT Office Visit [facility] [address] [place] [phone] Wen Hampton, DO [address] [address] [facility] Pulmonary/Sleep MedicineStart: 64-15-5739Vqqznyajq vaccinationInfluenza Vaccine [facility] Health SystemComment on above:Postponed from 03/18/2024 (Patient Refused)Start: 10-04-2024 End: 44-31-9754Osypbjb encounter izyxdyhca62/20/2025 10:30 AM EDT Office Visit [facility] - Medical Oncology [address] [place] [phone] Keyur Stuart MD [address] [place] [address] [address] [place] [address] [facility] - Medical OncologyStart: 61-49-5091Fwptihs to Medicare Visit (G0402)Welcome to Medicare Visit (G0402)[facility]HealthStart: 09-06-2024 End: 58-19-7111Hrhevhi encounter btgrinapr52/20/2025 10:30 AM EST Office Visit [facility] [address] [facility] [facility] [place] [address] Dewey Enriquez DO [address] [facility], [place] [address] [facility] - Family MedicineStart: 93-20-7762[place] aortic aneurysm screeningAbdominal Aortic Aneurysm (AAA) ScreenAdams County Regional Medical Center Comment on above:Postponed from 10/07/2023 (Patient Refused)Start: 07-18-2024 Administration of varicella zoster vaccineZoster (Shingles) Vaccine (1 of 2) [facility] CenterComment on above:Postponed from 2008 (Patient Refused)Start: 68-25-3288Hgbmadomv for malignant neoplasm of colonColon Cancer Screening 3 Year CologuardAdams County Regional Medical CenterComment on above:Postponed from 10/07/2003 (Patient Refused)Start: 05-51-0036XHCWN-19 Vaccine ( season)COVID-19 Vaccine ( season)[facility]HealthStart: 10-07-2023 Abdominal aortic aneurysm screeningAngel Medical Centertart: 2018 Hepatitis B (HBV) Vaccine (optional start 60+ years)Hepatitis B (HBV) Vaccine (optional start 60+ years)[facility]HealthStart: 26-42-1371HHJ High Risk: (Elderly (60+) or Population) (1 - Risk 60-74 years 1-dose series)RSV High Risk: (Elderly (60+) or Population) (1 - Risk 60-74 years 1-dose series) [facility] HospitalStart: 02-76-4766ORE vaccine (adult) (1 - Risk 60-74 years 1-dose series)RSV vaccine (adult) (1 - Risk 60-74 years 1-dose series)[facility]HealthStart: 69-19-3441Aeevdplwazomhe of varicella zoster vaccine Zoster (Shingles) Vaccine (1 of 2)[facility] SystemStart: 2008 Pneumococcal vaccinationPneumococcal Vaccine(s) (50+ yrs) (1 of 1 - PCV) [facility]HealthStart: 21-36-6825Racnrjkr specific antigen measurementPSA Prostate Cancer ScreeningUnProMedica Defiance Regional HospitalStart: 04-86-5056Osvpxgywx for malignant neoplasm of lungLung Cancer ScreeningGreene Memorial Hospital Start: 41-23-5248Igrsvqmq (RZV) Vaccine (1 of 2)Shingles (RZV) Vaccine (1 of 2) [facility]HealthStart: 97-73-3024Njlbztson for malignant neoplasm of colonEast Ohio Regional Hospital SystemStart: 90-51-7950Rfepk panelCholesterolMetroHealthStart: 1977 Administration of varicella zoster vaccineZoster (Shingles) Vaccine (1 of 2) [facility] SystemStart: 26-44-9366Ffxochsya A (HAV) Vaccine (optional start 19+ years)Hepatitis A (HAV) Vaccine (optional start 19+ years)[facility] Start: 01-67-1419Gfzqavrmzkhb vaccinationMetroHealthStart: 24-61-0838Jliixbqt (RZV) Vaccine (1 of 2)Shingles (RZV) Vaccine (1 of 2)[facility]HealthStart: 42-59-7979Maglhu Vaccines (1 of 2)Zoster Vaccines (1 of 2)[facility] HospitalStart: 19-33-6764Cajmu BMI ScreeningAdult BMI ScreeningEast [facility] Regional Hospital SystemStart: 33-14-8021Apotenohn C screeningMetroHealthStart: 1976 Tdap BoosterTdap BoosterMetroHealthStart: 01-10-4538Utafhuw ScreeningTobacco ScreeningEast [facility] Hospital SystemStart: 00-76-8796XHAGF-19 Vaccine (#1)COVID-19 Vaccine (#1)[facility]HealthStart: 71-77-0937XHW Vaccines (1 of 1 - Standard series) MMR Vaccines (1 of 1 - Standard series)[facility]: 43-72-8318Hzffpx wellness visitWelcome to Medicare VisitUnSelect Medical [facility] Rehabilitation Hospital: 01-50-2111Nmalk panelLipid PanelUnSelect Medical TriHealth Rehabilitation Hospital: 52-67-8023Xwvixrssu for malignant neoplasm of colonMetroHealth Start: 32-11-1677Lsdfoff CounselingTobacco CounselingProSelect Medical Specialty Hospital - YoungstownflyRuby.com System End: 58-86-2822Agaby metabolic 2000 panel - Serum or PlasmaBasic Metabolic Panel Lab Routine Hyperglycemia 1 Occurrences starting 09/21/2024 until 09/21/2025 [facility] LabsComment on above:1 Occurrences starting 09/21/2024 until 09/21/2025one marrow samplingBONE MARROW BIOPSY Anatomic Pathology Routine Pancytopenia Ordered: 01/21/2025[employer] Work Phone: Comment on above:Ordered: 01/21/2025 End: 93-89-8298IXO panel - Blood by Automated countCBC without diff Lab Routine Memory loss Hot flashes 1 Occurrences starting 09/06/2024 until 09/06/2025 [facility] LabsComment on above:1 Occurrences starting 09/06/2024 until 09/06/2025 End: 37-97-6223LPY panel - Blood by Automated countCBC Lab Routine Severe anemia 1 Occurrences starting 09/21/2024 until 09/21/2025[employer] Work Phone: Comment on above:1 Occurrences starting 09/21/2024 until 09/21/2025 End: 36-85-7176NTH W Auto Differential panel - BloodCBC with auto diff Lab Routine Primary myelofibrosis ([facility]) 1 Occurrences starting 10/04/2024 until 10/04/2025[employer] Work Phone: Comment on above:1 Occurrences starting 10/04/2024 until 10/04/2025 End: 74-46-4673Mtbshsyzojcdl metabolic 2000 panel - Serum or PlasmaComprehensive metabolic panel Lab Routine Screening for heart disease 1 Occurrences starting 06/25/2024 until 06/25/2025[employer]ingu[employer] Work Phone: Comment on above:1 Occurrences starting 06/25/2024 until 06/25/2025 End: 75-29-5714BN guidance for percutaneous biopsy of BoneTHE eTec Work Phone: Comment on above:1 Occurrences starting 02/20/2025 until 02/20/2025 End: 32-84-0476Ejylibpuvvdznk vitamin b-12Vitamin B12 Lab Routine Memory loss Hot flashes 1 Occurrences starting 09/06/2024 until 09/06/2025[facility] Memorial HospitalInnovid SystemComment on above:1 Occurrences starting 09/06/2024 until 09/06/2025 End: 55-63-4831Eggueqogvjrpux (EPO), SErythropoietin (EPO), S Lab Routine Primary myelofibrosis ([facility]-HCC) 1 Occurrences starting 10/04/2024 until 10/04/2025[facility] Memorial HospitalDeNovaMedComment on above:1 Occurrences starting 10/04/2024 until 10/04/2025 End: 64-22-9918Vkwlnyeniv A1c/Hemoglobin.total in BloodHemoglobin A1c Lab Routine Hyperglycemia 1 Occurrences starting 09/21/2024 until 09/21/2025 [facility] CenterBrazil Tower CompanyComment on above:1 Occurrences starting 09/21/2024 until 09/21/2025 End: 02-44-9108Toals panelLipid panel Lab Routine Screening for heart disease 1 Occurrences starting 06/25/2024 until 06/25/2025[facility] Memorial HospitalDeNovaMedComment on above:1 Occurrences starting 06/25/2024 until 06/25/2025 End: 43-00-6728Kmsfddtechm timePROTHROMBIN TIME AND INR Lab STAT Pancytopenia Myelofibrosis (HCC) MDS (myelodysplastic syndrome) (HCC) Abnormal findings on diagnostic imaging of other specified body structures 1 Occurrences starting 02/12/2025 until 02/12/2026MetroHealthComment on above:1 Occurrences starting 02/12/2025 until 02/12/2026Surgical pathology procedure*SPECIMEN FOR SURGICAL PATHOLOGY Anatomic Pathology Routine Pancytopenia Myelofibrosis (HCC) 02/20/2025 12:23 PM EDTTHE [facility] Work Phone: End: 64-06-1499XOJ with ReflexTSH with Reflex Lab Routine Memory loss Hot flashes 1 Occurrences starting 09/06/2024 until 09/06/2025[facility] Work Phone: Comment on above:1 Occurrences starting 09/06/2024 until 09/06/2025 Immunizations Immunization DateImmunizationNotesCare DyopfdsrGiojyarc26-74-5889GNKQV-91, mRNA, LNP-S, PF, 30 mcg/0.3 mL doseRhona Atwood MD Work Phone: [facility] Work Phone: [phone]-61, mRNA, LNP-S, PF, 30 mcg/0.3 mL doseRhona Atwood MD Work Phone: [facility] Work Phone: [phone]SN-83, mRNA, LNP-S, PF, 30 mcg/0.3 mL doseRhona Atwood MD Work Phone: [facility] Work Phone: [phone] toxoid, reduced diphtheria toxoid, and acellular pertussis vaccine, adsorbedRhona Atwood MD Work Phone: [facility] Work Phone: Payers DatePayer CategoryPayerPolicy [id number]-pay2025Medicare (Managed Care)[id number] 2024Medicare [id number] [id number] 2013UnknownHEALTHSCOPE BENEFITS [id number] [id number] 2.16.840.1.170496.3.57[id number] 2.16840.1.387307.3.57[id number] 2.16840.1.319037.3.57[id number] 2.16.840.1.339332.3.57[id number] 2.16.840.1.565754.3.57[id number] 2.16840.1.120530.3.57[id number] 2.16.840.1.110664.3.57[id number] 2.16.840.1.644762.3.57[id number] 2.16840.1.209645.3.57[id number] 2.16840.1.898402.3.57[id number] 2.16840.1.143514.3.57[id number] 2.16840.1.882514.3.57[id number] 2.16840.1.465917.3.57[id number] 2.16840.1.680953.3.57[id number] 2.840.1.489734.3.57[id number] 2.840.1.435468.3.57[id number] 2.840.1.850187.3.57[id number] 2.840.1.958430.3.57[id number] 2.840.1.397035.3.579.[id number] 2.840.1.171987.3.57[id number] 2.840.1.467959.3.579.2.[id number] 2.840.1.766757.3.579.2.[id number] 2.840.1.829023.3.57[id number] 2.840.1.569729.3.57[id number] 2..0.1.263743.3.57[id number] 2..0.1.99[id number] 2.0.1.992714.3.579.2.531 [id number] 2.0.1.336023.3.579.2.531 Social History DateTypeDetailFacilityStart: 14-91-8495Gfbqdsr smoking status NHISSmokes tobacco dailyProKettering Health Miamisburg SystemStart: 06-25-1979 End: 98-97-2301Zbzwfeg of tobacco useCigarette SmokerEast [facility] System Start: 06-25-2024 End: 69-59-1927Clqpudsfsu smoked current (pack per day) - Ucghitni4VdkMvvule Health SystemStart: 06-25-2024 End: 24-17-5030Skioihn use and exposureSmokeless tobacco non-userEast Ohio Regional Hospital SystemStart: 06-26-2024 End: 51-51-9820Epskgtcla beverage intakeCurrent drinker of alcohol (finding) [facility] SystemStart: 06-25-2024 End: 14-03-0218YTT UtilitiesEast Ohio Regional Hospital SystemHas the HiringBoss, gas, oil, or water [employer] threatened to shut off services in your home in past 12MoNo [facility] Health SystemDo you belong to any clubs or organizations such as adventist groups, unions, fraternal or athletic groups, or school groups?Yes [facility] Health SystemAre you now , , , , never or living with a partner?MarriedProPickens County Medical Center Health SystemHow often to you have a drink containing alcohol?4 or more times a weekProPickens County Medical Center Health SystemHow many standard drinks containing alcohol do you have on a typical day?3 or 4 [facility] SystemHow often do you have 6 or more drinks on 1 occasion? NeverEast Ohio Regional Hospital SystemStart: 30-88-4850Qvf hard is it for you to pay for the very basics like food, housing, medical care, and heatingNot hard at all [facility] Health SystemDo you feel stress - tense, restless, nervous, or anxious, or unable to sleep at night because yourmind is troubled all the time - these days [OSQ]Not at allHolzer Health System Podimetrics SystemStart: 71-83-3672Azpwuju Comment4 or 5 a nightMain Campus Medical CenterflyRuby.com SystemStart: 31-18-1264Npz assigned at birthNot on fileProMedica Podimetrics SystemStart: 02-20-2015 End: 80-23-4142HuvCxdk (finding)[facility] Health SystemStart: 09-08-2024 End: 71-46-2504Twtakky smoking status NHISEx-smokerAngel Medical Centertart: 06-25-1979 End: 19-93-1490Uecvlyf of tobacco useCurrent smokerAdams County Regional Medical Center Tobacco smoking status NHISUnknown if ever smokedMetroHealthStart: 34-60-9739Mfm Assigned At [facility] Medical Centertart: 56-91-5104Fjhnchs Comment1 a nightHolzer Health System Health SystemHow many standard drinks containing alcohol do you have on a typical day?1 or 2ProMedcooper green mercy hospital Health SystemHow hard is it for you to pay for the very basics like food, housing, medical care, and heatingSomewhat [facility] Work Phone: How often do you need to have someone help you when you read instructions, pamphlets, or other written material from your doctor or pharmacy [SILS][facility] Work Phone: Goals DatePatient GoalDesired Activity/StatePersonal health goalComment on above: Evaluation of progress towards goal: Current Discharge Plan; home with spouse, self care, denies needs at this time. Functional Status PwgsChhgklifwkWqhpndZnzzbwfg87-28-9729Qrewnpzuow statusGreene [facility] Hospital10-14-2025UnProMedica [facility] Work Phone: 1(765) 414-25970494703-71-2368Luqlube Health Questionnaire 2 item (PHQ-2) [Reported][facility] Work Phone: 1(896) 362-383809801022-72-0277Qfelq score [AUDIT-C]4 03/26/2025 4:00 PM EDT Seamus Gayle, MICHAELUnProMedica Defiance Regional Hospital Work Phone: 1(405) 142-452908599950-92-4341Qbzus score [AUDIT-C]4 03/07/2025 11:44 AM EDT Dewey Enriquez DOPAscension Northeast Wisconsin St. Elizabeth HospitalUnProMedica [facility] Work Phone: Clinical Notes 06-25-2024 to 04-30-2025 Note Date & EvpsYeikYjaczlnb84-19-0753 Evaluation + Plan note* Assessment & Plan Note - Rhona Atwood MD - 04/30/2025 11:00 AM EDTAssociated Problem(s): Primary myelofibrosis (Multi) Continues to require transfusions about every other week. Reviewed donor search which showed that he has matched sibling. Additional counseling about transplant process provided. He and his family are still working out potential post transplant youth care professional plan, and would like to talk some more withBMT coordinator to review what will be needed. Once youth care professional plan is finalized, we can move to schedule his transplant evaluation. In interim, he will continue local care with Dr. Hopper. [facility] Work Phone: 1(775) 867-974810-14-2025 History of Present illness Narrative* Rhona Atwood [...] are still working out potential post transplant youth care professional plan, and would like to talk some more withBMT coordinator to review what will be needed. Once youth care professional plan is finalized, we can move to [...] visit. Rhona Atwood MD documented in this encounterGreene Memorial Hospital Work Phone: 1(990) 310-407410-14-2025 Miscellaneous Notes* Assessment & Plan Note - Rhona Atwood MD - 04/30/2025 11:00 AM EDTAssociated Problem(s): Primary myelofibrosis (Multi) Continues to require transfusions about every other week. Reviewed donor search which showed that he has matched sibling. Additional counseling about transplant process provided. He and his family are still working out potential post transplant youth care professional plan, and would like to talk some more withBMT coordinator to review what will be needed. Once youth care professional plan is finalized, we can move to schedule his transplant evaluation. In interim, he will continue local care with Dr. Hopper. documented in this [facility] Work Phone: 1([phone]) 450-101509-09-2025 Evaluation + Plan note* Assessment & Plan Note - Rhona Atwood MD - 03/26/2025 2:00 PM EDTAssociated Problem(s): Primary myelofibrosis (Multi) Referred today with relatively recent diagnosis of primary myelofibrosis. I counseled the patient regarding the diagnosis of myelofibrosis including the characteristic spotter driver mutations (Jak2 V617F inthis case) and [...] in mid April to review donor search. [facility] Work Phone: 1(688) 836-239909-09-2025 History of Present illness Narrative* Rhona Atwood MD - 03/26/2025 2:00 PM EDT Images from the original note were not included. Patient ID: Penny Ordaz is a 64 y.o. male. Referring Physician: Alessandra Stoner MD [address] [place], [place] [address] Primary Care Provider: No primary care provider on file. Assessment/Plan Assessment & Plan Primary myelofibrosis (Multi) Referred today with relatively recent diagnosis of primary myelofibrosis. I counseled the patient regarding the diagnosis of myelofibrosis including the characteristic spotter driver mutations (Jak2 V617F inthis case) and [...] Heart disease Brother Kei documented in this [facility] Work Phone: 1(701) 777-413909-09-2025 Instructions* Patient Instructions* Rhona Atwood MD - [...] reduce your alcohol use. documented in this [facility] Work Phone: 1(753) 629-295509-09-2025 Miscellaneous Notes* Assessment & Plan Note - Rhona Atwood MD - 03/26/2025 2:00 PM EDTAssociated Problem(s): Primary myelofibrosis (Multi) Referred today with relatively recent diagnosis of primary myelofibrosis. I counseled the patient regarding the diagnosis of myelofibrosis including the characteristic spotter driver mutations (Jak2 V617F inthis case) and [...] to review donor search. documented in this encounterGreene Memorial Hospital Work Phone: 1(640) 780-546009-04-2025 NoteSW spoke with following up on Dr. Craig's referral for an Allo transplant. Pt is scheduled to see Dr. Rhona Atwood at 2PM on [phone] option 1. SW spoke with Pt and his , Marla, to provide appointment information. Family expressed their understanding. SW will remain available. Willow ROUQE, CARLEEN [phone] [facility]09-04-2025 Telephone encounter Note* Telephone Encounter - Willow Bond LSW - 03/21/2025 1:30 PM EDT MK spoke with following up on Dr. Craig's referral for an Allo transplant. Pt is scheduled to see Dr. Rhona Atwood at 2PM on [phone] option 1. SW spoke with Pt and his , Marla, to provide appointment information. Family expressed their understanding. SW will remain available. Willow ROQUE, CARLEEN [phone] [facility] CenterHyl[facility]Soft Work Phone: [phone] Miscellaneous Notes* Telephone Encounter - Willow Bond LSW - 03/21/2025 1:30 PM EDT SW spoke with following up on Dr. Craig's referral for an Allo transplant. Pt is scheduled to see Dr. Rhona Atwood at 2PM on [phone] option 1. SW spoke with Pt and his , Marla, to provide appointment information. Family expressed their understanding. SW will remain available. Willow Varun REGISTERED CLINICAL DIETITIAN, LEAD GENERATION REPRESENTATIVE [phone] * Telephone Encounter - Ramo Taylor MD - 03/21/2025 1:12 PM EDT Images from the original note were not included. HEMATOLOGY AND MEDICAL ONCOLOGY [facility] I received a call from the patient's primary Oncologist, Dr. Martita Hopper from [facility].We discussed about the results of the two bone marrow biopsies that were taken at [facility] and also, I've explained the rationale behind the need for the patient to be evaluated at the or [facility] in order to be assessed for the possibility of an Allo SCT due to his diagnosis of Myelofibrosis. I connected with our team at [facility] and they have been working on [...] Taylor MD Hematology and Medical Oncology Fellow [employer] [facility], [phone] documented in this [id number] Telephone encounter Note* Telephone Encounter - Ramo Taylor MD - 03/21/2025 1:12 PM EDT Images from the original note were not included. HEMATOLOGY AND MEDICAL ONCOLOGY [facility] I received a call from the patient's primary Oncologist, Dr. Martita Hopper from [facility].We discussed about the results of the two bone marrow biopsies that were taken at [facility] and also, I've explained the rationale behind the need for the patient to be evaluated at the or [facility] in order to be assessed for the possibility of an Allo SCT due to his diagnosis of Myelofibrosis. I connected with our team at [facility] and they have been working on [...] Taylor MD Hematology and Medical Oncology Fellow [facility], [phone] UnulvPvijhl23-17-4499 Telephone encounter Note* Telephone Encounter - Briseyda Cleopatra - 03/21/2025 8:45 AM EDT Akilah calling to follow up on yesterdays call Akilah also states that she will be sending the MARIE again via fax - it will be uploaded into patient's chart once received [id number] Miscellaneous Notes* Telephone Encounter - Cleopatra Rain - 03/21/2025 8:45 AM EDT Akilah calling to follow up on yesterdays call Akilah also states that she will be sending the MARIE again via fax - it will be uploaded into patient's chart once received * Telephone Encounter - Cleopatra Rain - 03/20/2025 4:[address] calling from [facility] on behalf of Dr. Ruchi Hopper, referring [...] in the patient's chart at this time. [phone] - phone number [phone] - fax number documented in this [id number] Telephone encounter Note* Telephone Encounter - Cleopatra Rain - 03/20/2025 4:[address] calling from [facility] on behalf of Dr. Ruchi Hopper, referring [...] in the patient's chart at this time. [phone] - phone number [phone] - fax number [id number] History of Present illness Narrative* Willow Bond [...] to TGP. SW submitted TGP referral through [facility] [facility] [employer] . Willow Bond REGISTERED CLINICAL DIETITIAN, LEAD GENERATION REPRESENTATIVE [id number] documented in this [id number] Telephone encounter Note* Telephone Encounter - Willow Bond LSW - 03/13/2025 8:16 AM EDT Opened in error Willow Bond REGISTERED CLINICAL DIETITIAN, LEAD GENERATION REPRESENTATIVE [id number] Miscellaneous Notes* Telephone Encounter - Willow Bond LSW - 03/13/2025 8:16 AM EDT Opened in error Willow Bond MSW, LEAD GENERATION REPRESENTATIVE [id number] documented in this [id number] History of Present illness Narrative* Ramo Taylor MD - 03/12/2025 11:30 AM EDT Images from the original note were not included. HEMATOLOGY AND MEDICAL ONCOLOGY [facility] Patient ID: Name: Penny Ordaz Encounter Date: [...] THERAPY Current therapy has been given at [facility] per Dr. Martita Hopper MD PROCRIT [...] and severe seborrheic dermatitis[facility]. [facility] reported [...] October 2024, the patient was evaluated at [facility] due to severe anemia once again. He [...] most recent transfusion occurring this morning at [facility], where a hemoglobin level of 6.5 g/dL was documented. 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 The patient has been sent to our hospital to define management and plan for possible Bone Marrow Transplant. Interval: The patient underwent a new BONE MARROW BIOPSY here at [facility] on 01/21/2025, and the results are [...] [facility] CBC on 03/12/2025 at [facility] WBC 8.2 Hgb 7.1 PLTs 269 [...] 02/20/2025 NEW BMBx *SPECIMEN FOR SURGICAL PATHOLOGY: [id number] Order: [id number] Collected 02/20/2025 12:23 Status: Final result Dx: Myelofibrosis (HCC); Pancytopenia Test Result Released: No (inaccessible in [employer]) 0 Result Notes Component Case Report Surgical Pathology Report Case: [id number] Authorizing Provider: Anne Ha MD Collected: 02/20/2025 1223 Ordering Location: [facility] Radiology CT Received: 02/20/2025 1340 Pathologist: [...] is hemodilute and unlikely to be fully territory sales representative of the marrow. The core biopsy [...] a new BONE MARROW BIOPSY here at [facility] on 01/21/2025, and the results are [...] up with his oncologist Dr. Hopper at [facility] We communicate with Dr. Hopper office [...] now follow up with his Oncologists at [place] and plan for transplant at the or [facility]. (Referral done) sand car worker to help with the connection with [facility]. Patient seen and assessed with Dr. Korey Bueno MD. The patient and family's questions, doubts, and concerns were addressed and resolved apropriately. A thorough and detailed explanation of the patient's case was provided. The patient and family members ( and pkfwdw-yz-yjr presented in the office) demonstrated an understanding of the information and agreed with the plan. --- Ramo Mckinnon MD Hematology and Medical Oncology Fellow [phone] [1] No past surgical history on file. Cosigned by Korey Beuno MD at 03/12/2025 2:52 PM EDT Associated [...] Korey Bueno MD 03/12/2025 documented in this [id number] History of Present illness Narrative* Dewey Enriquez, [...] mouth in the morning. documented in this encounterAdams County Regional [facility] Center08-19-2025 Telephone encounter Note* Telephone Encounter - Adrienne Joel - 03/05/2025 10:06 AM EDT PT Called to confirm appt 03/12 also asked for a call back about Bone Valdez results AM. [id number] Miscellaneous Notes* Telephone Encounter - Adrienne Joel - 03/05/2025 10:06 AM EDT PT Called to confirm appt 03/12 also asked for a call back about Bone Valdez results AM. documented in this [id number] Telephone encounter Note* Telephone Encounter - Adrienne Joel - 02/26/2025 3:43 PM EDT Akilah from DR Glez office called [id number] Miscellaneous Notes* Telephone Encounter - Adrienne, Joel - 02/26/2025 3:43 PM EDT Akilah from DR Glez office called documented in this [id number] NoteEXAMINATION: CT BIOPSY BONE (MONIQUE) 02/20/2025 11:36 [...] 1% lidocaine. Using CT guidance and an Chart[employer] device a core bone biopsy and bone [...] images and agree with the resident's interpretation.[facility]08-06-2025 Hospital Discharge instructions * Discharge Instructions* Radha [...] cannot tolerate at the biopsy site with pjhs-xzk-bsrjotw medications such as Tylenol or Ibuprofen. Increased pain in your stomach or back that you cannot tolerate at the biopsy site with nqmc-hzc-dlkxrqz medications such as Tylenol or Ibuprofen. Dizziness, [...] advice or information is required, please call [phone], available 07/02. Moderate Sedation WHAT YOU SHOULD [...] have a very bad headache. Copyright 2011. [employer]. All rights reserved. Information is for End User's use only and may not be sold, redistributed or otherwise used for commercial purposes. The above information is an ranger aide only. It is not intended as medical advice for individual conditions or treatments. Talk to your doctor, nurse or pharmacist before following any medical regimen to see if it is safe and effective for you. documented in this [id number] NotePOST-PROCEDURE NOTE Procedure: CT guided bone marrow biopsy and aspiration Pre-operative Diagnosis: Myelofibrosis Post-operative Diagnosis: Myelofibrosis Attending: Anne Ha MD Light Rail Vehicle Operator: Frankie Wayne MD A TIME OUT was [...] for full procedural details. Frankie Wayne MD [facility] Surgery Postoperative evaluation and management note* Post-Procedure Note - Frankie Wayne MD - 02/20/2025 11:28 AM EDT POST-PROCEDURE NOTE Procedure: CT guided bone marrow biopsy and aspiration Pre-operative Diagnosis: Myelofibrosis Post-operative Diagnosis: Myelofibrosis Attending: Anne Ha MD Light Rail Vehicle Operator: Frankie Wayne MD A TIME OUT was [...] Ha MD at 02/20/2025 12:58 PM EDT [id number] Miscellaneous Notes* Post-Procedure Note - Frankie Wayne MD - 02/20/2025 11:28 AM EDT POST-PROCEDURE NOTE Procedure: CT guided bone marrow biopsy and aspiration Pre-operative Diagnosis: Myelofibrosis Post-operative Diagnosis: Myelofibrosis Attending: Anne Ha MD Light Rail Vehicle Operator: Frankie Wayne MD A TIME OUT was [...] 02/20/2025 12:58 PM EDT documented in this [id number] History and physical note* Frankie Wayne MD [...] Directives (Living will, health care power of swing driver): none Patient Recent Code Status: No Order Code Status For This Procedure: Full Code Frankie Wayne MD Radiology [1] No past medical history on file. [2] [facility] Work Phone: 1(904) 171-781808-06-2025 NoteMODIFIED HISTORY AND PHYSICAL: HISTORY: Procedure: CT [...] Directives (Living will, health care power of swing driver): none Patient Recent Code Status: No Order Code Status For This Procedure: Full Code Frankie Wayne MD Radiology [1] No past medical history on file. [2][facility] [id number] History and physical note* Frankie Wayne MD [...] Directives (Living will, health care power of swing driver): none Patient Recent Code Status: No Order Code Status For This Procedure: Full Code Frankie Wayne MD Radiology [1] No past medical history on file. [2] documented in this [id number] Telephone encounter Note* Telephone Encounter - Juliette Schumacher RN - 02/14/2025 9:12 AM EDT Patient was identified by name and date of . Juliette Schumacher RN Contacted patient to schedule bone marrow biopsy and oncology follow-up. Patient aware of bone marrow biopsy February 20 with 10:30 arrival and MD follow-up March 12. Will have labs tomorrow at OSH. Juliette Schumacher RN [id number] Miscellaneous Notes* Telephone Encounter - Juliette Schumacher RN - 02/14/2025 9:12 AM EDT Patient was identified by name and date of . Juliette Schumacher RN Contacted patient to schedule bone marrow biopsy and oncology follow-up. Patient aware of bone marrow biopsy February 20 with 10:30 arrival and MD follow-up March 12. Will have labs tomorrow at OSH. Juliette Schumacher, RN documented in this [id number] History of Present illness Narrative* Ramo Taylor MD - 02/12/2025 5:27 PM EDT Images from the original note were not included. HEMATOLOGY AND MEDICAL ONCOLOGY [facility] After a thorough discussion with the Interventional [...] Taylor MD Hematology and Medical Oncology Fellow [facility], [phone] documented in this [id number] Telephone encounter Note* Telephone Encounter - Joel Deleon - 02/11/2025 1:42 PM EDT PT Called back asking for follow up on MRI Informed of message from Dr. Wisam WANG. [id number] Miscellaneous Notes* Telephone Encounter - Joel Deleon [...] an MRI Patient can be reached at [phone] documented in this [id number] Telephone encounter Note* Telephone Encounter - Cleopatra Rain - 02/11/2025 10:16 AM EDT Patient calling Patient states that he is to be scheduled for an MRI - I don't see any orders for an MRI Patient can be reached at [phone] [id number] History of Present illness Narrative* Juliette Schumacher, MICHAEL - 02/05/2025 1:06 PM EDT MD to reach out to IR to see if IR guided bone marrow biopsy possibility. Will arrange follow-up after decision made regarding biopsy. Julietet Schumacher RN documented in this [id number] Note* Addendum Note - Macy Salmeron - 01/21/2025 12:46 PM EDTEncounter addended by: Macy Salmeron on: 01/21/2025 12:46 PM Actions taken: Visit diagnoses modified, Order list changed, Diagnosis association updated [id number] Miscellaneous Notes* Addendum Note - Macy Salmeron [...] updated, Treatment plan modified documented in this [id number] Note* Addendum Note - Azul Hidalgo RN - 01/21/2025 11:58 AM EDTEncounter addended by: Azul Hidalgo RN on: 01/21/2025 11:58 AM Actions taken: Clinical Note Signed [id number] History of Present illness Narrative* Azul Hidalgo [...] Date of Location where procedure was performed: [facility] Consent: - Method of consent: [...] Risk protocol implemented: No documented in this [id number] Note* Addendum Note - Stefan Perez APRN-CNP - 01/21/2025 11:28 AM EDTEncounter addended by: Stefan Perez APRN-CNP on: 01/21/2025 11:28 AM Actions taken: Order list changed, Diagnosis association updated, Treatment plan modified [id number] NoteEncounter addended by: Stefan Perez APRN-CNP on: 01/21/2025 11:28 AM Actions taken: Order list changed, Diagnosis association updated, Treatment plan modifiedThe [facility]07-07-2025 NoteProcedure: Bone Marrow Aspiration and Biopsy Date performed: 01/21/2025 Time out completed, patient identified with (2 required): Name and [facility] [facility] Consent: - Method of consent: [...] verbalized understanding of the aftercare. BRYSON MejiaThe [facility]05-21-2025 History of Present illness Narrative* Dewey Myersaly, [...] He has an appointment in January in [place] to discuss it with a different specialist. [...] Exam Vitals reviewed. Exam conducted with a telecommunications clerk present (Ayad Derrell MS 3). Constitutional: General: [...] is still may need to see a sports director if it has it. Primary myelofibrosis (CMS-HCC) Follow up with Oncology as directed documented in this encounterKerbs Memorial HospitalDeNovaMed05-13-2025 Telephone encounter Note* Telephone Encounter - Shirlene [...] and call back tomorrow. Pineda Parkinson RN [id number] Miscellaneous Notes* Telephone Encounter - Shirlene Parkinson [...] tomorrow. Pineda Parkinson RN documented in this [id number] Telephone encounter Note* Telephone Encounter - Joel Deleon - 11/27/2024 1:48 PM EDT PT called to make appointment Scheduled by notes PT asked 01/15 at 1PM AM. [id number] Miscellaneous Notes* Telephone Encounter - Joel Deleon [...] updated. Pineda Parkinson RN documented in this [id number] Telephone encounter Note* Telephone Encounter - Shirlene [...] sure EPIC is updated. Pineda Parkinson RN [id number] Miscellaneous Notes* Telephone Encounter - DEIDRE Caban - 11/16/2024 10:59 AM EDT Patient's /HIPAA, Marla, called office and stated that she needed to cancel patient's appointment for 12/20/2024 at 1:00 pm with SE due to patient being in hospital. Appointment was cancelled. documented in this encounterAdams [facility]05-02-2025 Telephone encounter Note* Telephone Encounter - DEIDRE Caban - 11/16/2024 10:59 AM EDT Patient's /HIPAA, Marla, called office and stated that she needed to cancel patient's appointment for 12/20/2024 at 1:00 pm with SE due to patient being in hospital. Appointment was cancelled. [facility]04-17-20[facility] History of Present illness Narrative* Dewey G Furlong, DO - 11/01/2024 9:15 AM EDT Subjective Patient ID: Penny Ordaz is a 64 y.o. male. He presents today for concerns regarding his driving and memory. He was driving to [email or web address] with his and was driving erratically. A concerned citizen called the police who met him at [email or web address]They did check him to see if he [...] to drive. He was referred to a sports director by Dr. Whitfield but a sports director was not in his network. Heneeds a referral to a new sports director. He thinks it was because of the [...] drift. Coordination: Romberg sign negative. Coordination normal. Owimio-Vvbm-Doifxu Test and Heel to Hay Test normal. [...] Would need to go see pulmonology in [place] or [facility]. I asked him to check his network [...] he appears relatively intact. documented in this encounterKerbs Memorial HospitalInnovid [id number] History of Present illness Narrative* Misti Fuentes [...] He said he can see adoctor in [place] that does take his insurance if he is not able to continue to follow with Dr. Stuart. Lab orders, treatment calendar and AVS provided to patient. He verbalized understanding to instructions. Discharged in stable condition to private vehicle. documented in this encounterAdams County Regional Medical Center03-20-2025 History of Present illness Narrative* Keyur Stuart MD - 10/04/2024 10:30 AM EDT Images from the original note were not included. [facility] Bryan Perales M.D. Chantel Maya M.D. Kei Collazo M.D. Wendi Pang M.D. Juliette Ronquillo, [facility] Diann Patel, [facility] Concepción Marks, [facility] Valeria Valente, [facility] Rasheeda Mijares, [facility] Keyur Stuart M.D. Vijay Carrington M.D. Trae Lazar M.D. Gillian Garza M.D. Joceline Larry, [facility] Laisha Brooks, [facility] Ritu Dooley, [facility] Kim Tavarez, [facility] Yeny Tyson, [facility] PROGRESS NOTE 10/04/24 Subjective/Interval [...] is unable to get blood draws from [facility]. Oncology History No history exists. Objective [...] him consider bone marrow transplant evaluation at [facility]. Transfuse to keep hemoglobin above 7. The patient told me due to his insurance change, he may have to establish care with Hematology at [facility]. Keyur Stuart M.D. [facility] [address] [place] [address] documented in this encounterKerbs Memorial HospitalDeNovaMed03-20-2025 Instructions* Patient Instructions* Keyur Stuart MD - 10/04/2024 10:30 AM EDT Print out order for CBC epo. F/u in 3 months. documented in this encounterAdams County Regional Medical Center03-12-2025 Procedure note [facility] [place] [address] [place] [address] Pulmonary Function Signed Patient: Penny Ordaz MR#: [id number] : 1960 Date of Service:0 09/26/24 Age/Sex: 63 / M ADM Date: 5 Loc: RT Room: Type: [facility] Attending Dr: Dewey Enriquez DO Copies [...] Rasheeda Horn MD 09/26/241809 Signed By: 09/26/241814 [facility]03-07-2025 History of Present illness Narrative * Deewy Enriquez, DO - 09/21/2024 9:00 AM EST [...] Exam Vitals reviewed. Exam conducted with a telecommunications clerk present (Jimenez Pritchett MS3). Constitutional: General: He [...] anemia. His saw the GI specialist in [place] and would like to go there. documented in this encounterAdams County Regional Medical Center02-26-2025 Miscellaneous Notes* Telephone Encounter - Guerline Cha CMA - 09/12/2024 4:11 PM EST Adapted Physical Education Aide called and left voicemail for patient to call office to schedule a HDFU. CXR in 4 to 6 weeksthen follow up with any provider in [place] per [facility]. documented in this encounterAdams County Regional Medical Center02-26-2025 Telephone encounter Note* Telephone Encounter - Guerline Cha CMA - 09/12/2024 4:11 PM EST Adapted Physical Education Aide called and left voicemail for patient to call office to schedule a HDFU. CXR in 4 to 6 weeksthen follow up with any provider in [place] per [facility]. [facility]02-24-2025 NoteIR BX BONE MARROW SNGL OR MULT Pre-procedure diagnosis: See history below Post-procedure diagnosis: Same as above Assistants/resident: See the technologist's notes above Consent/pre-procedure evaluation: See below. [place] protocol timeout verification performed. Estimated blood loss: [...] of intravenous Versed, and 30 minutes of hmwl-lg-qarn intraservice time for intravenous conscious sedation by [...] of material was deemed sufficient by the staff technologist. Finalized by Jonathan Sousa MD on 09/10/2024 2:03 [facility] 09-10-2024 NoteIR THORACENTESIS W GUIDE RT Pre-procedure diagnosis: See history below Post-procedure diagnosis: Same as above Assistants/resident: See the technologist's notes above Consent/pre-procedure evaluation: See below. [place] protocol timeout verification performed. Estimated blood loss: [...] by Jonathan Sousa MD on 09/10/2024 2:00 [facility] 09-08-2024 Miscellaneous Notes* Telephone Encounter - Latha Mendoza - 09/08/2024 2:23 AM EST Contract: 91 New AM consult for Right pleural effusion concern for malignancy To be paged out at 7am * Telephone Encounter - Mercedez Galdamez RN - 09/08/2024 2:23 AM EST Contract: [address] Montelongo on his cell phone- consult information given to MD documented in this encounterAdams County Regional Medical Center02-22-2025 Telephone encounter Note* Telephone Encounter - Latha Mendoza - 09/08/2024 2:23 AM EST Contract: 91 New AM consult for Right pleural effusion concern for malignancy To be paged out at 7am [facility]02-22-2025 Telephone encounter Note* Telephone Encounter - Mercedez Galdamez RN - 09/08/2024 2:23 AM EST Contract: [address] Montelongo on his cell phone- consult information given to [facility]02-20-2025 Miscellaneous Notes* Telephone Encounter - Cherelle Murphy - 09/06/2024 8:56 PM EST Contract: 198 re Critical Lab * Telephone Encounter - Cherellejessa Murphy - 09/06/2024 8:56 PM EST Call was connected to Dr Enriquez cell documented in this encounterAdams County Regional Medical Center02-20-2025 Telephone encounter Note* Telephone Encounter - Nicholson Jeffrey - 09/06/2024 8:56 PM EST Contract: 198 re Critical Lab [facility]02-20-2025 Telephone encounter Note* Telephone Encounter - Cherellejessa Murphy - 09/06/2024 8:56 PM EST Call was connected to Dr Enriquez cell [facility]02-20-2025 History of Present illness Narrative* Dewey Enriquez, [...] Exam Vitals reviewed. Exam conducted with a telecommunications clerk present ( and Jimenez Pritchett MS3). Constitutional: [...] Future He scored a 27 on the [place] so I doubt he has any significant [...] assistance but he declined. documented in this encounterAdams County Regional Medical Center01-06-2025 Miscellaneous Notes* Telephone Encounter - Elisha Lewis [...] be screen for dementia documented in this encounterAdams County Regional Medical Center01-06-2025 Telephone encounter Note* Telephone Encounter - Elisha Lewis CMA - 07/23/2024 11:47 AM EST Patient's called and stated that she feels patient is getting some dementia. He is getting violent in the evening and forgetful. She was wondering if there could be a referral for him to see [facility]01-06-2025 Telephone encounter Note* Telephone Encounter - Dewey Enriquez DO - 07/23/2024 11:47 AM EST He needs an appointment here 1st to be screen for dementia YaKlass [id number] History of Present illness Narrative* Dewey Enriquez [...] ear normal. Nose: Nose normal. Mouth/Throat: Lips: [place]. Mouth: Mucous membranes are moist. Dentition: Abnormal [...] Recheck in 1 year. 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 Pleural effusion, right Unspecified pleural effusion Memory loss documented in this encounter [facility]* Diagnosis Pleural effusion, right- [...] with myeloid metaplasia documented in this encounter [facility] Work Phone: Evaluation note* Diagnosis Primary myelofibrosis (Multi)- Primary Myelofibrosis with myeloid metaplasia Primary myelofibrosis (Multi) Myelofibrosis with myeloid metaplasia documented in this encounter [facility] Work Phone: InstructionsNot on filedocumented in [...] excess blasts-1 (HCC) Poncho Hopper MD [address] [place] [address] Phone: tel: fax: [facility] ON[facility] [address] [place] [address] Phone: tel: Referral IDStatusReasonStart DateExpiration DateVisits RequestedVisits [id number]/9/202511/ [facility] for visit Narrative* Diagnostic X-Ray (Routine) - Closed SpecialtyDiagnoses / ProceduresReferred By ContactReferred To ContactRadiology Diagnoses Pancytopenia Myelofibrosis (HCC) MDS (myelodysplastic syndrome) (HCC) Procedures CT BIOPSY BONE (MONIQUE) XA INTERVENTIONAL RADIOLOGY PROCEDURE SERVICE Lashell Trujillo DO [address] [place] [address] Phone: tel: fax: [facility] ULTRASOUND [address] [place] [address] Phone: tel: Referral IDStatusReasonStart DateExpiration DateVisits RequestedVisits [id number]/29/20257/ [facility] for visit Narrative* Service Level Authorization (Routine) - Pending ReviewSpecialtyDiagnoses / ProceduresReferred By ContactReferred To ContactOncology Medical Diagnoses Pancytopenia [facility] Oncology Medical [address] [place] [address] Phone: tel: fax: Referral IDStatusReasonStart DateExpiration DateVisits RequestedVisits [id number] Review [facility] for visit Narrative* SCC Consult (Routine) - Authorized SpecialtyDiagnoses / ProceduresReferred By ContactReferred To Contact Hematology and Oncology Diagnoses MDS (myelodysplastic syndrome) (Multi) Alessandra Stoner MD [address] [place] [address] Phone: tel: fax: Referral IDStatusReasonStart DateExpiration DateVisits RequestedVisits [id number] Specialty Services Required [facility] Work Phone: Summary Purpose Family History [...] and content) DATE CREATED AUTHOR 01/04/2018 [facility] DATE CREATED AUTHOR AUTHOR'S ORGANIZ ATION 01/10/2018 [facility] DATE CREATED AUTHOR AUTHOR'S ORGANIZ ATION 09/19/2020 [facility] DATE CREATED AUTHOR AUTHOR'S ORGANIZ ATION 09/22/2024 [facility] DATE CREATED AUTHOR AUTHOR'S ORGANIZ ATION 2024 [facility] DATE CREATED AUTHOR AUTHOR'S ORGANIZ ATION 10/14/2024 [facility] DATE CREATED AUTHOR AUTHOR'S ORGANIZ ATION 03/09/2025 [facility] DATE CREATED AUTHOR AUTHOR'S ORGANIZ ATION 03/22/2025 [facility] DATE CREATED AUTHOR AUTHOR'S ORGANIZ ATION 05/30/2025 [facility] Care Teams (unrecognized sec tion and content) Team MemberRelationshipSpecialtyStart DateEnd Date Dewey Enriquez DO [address] [place] [address] PCP - GeneralFamily Medicine10/10/23Team MemberRelationshipSpecialtyStart DateEnd Date Dewey Enriquez DO [address], [place] [address] PCP - GeneralFamily Medicine10/10/23Team MemberRelationshipSpecialtyStart DateEnd Date Dewey Enriquez DO [address], [place] [address] PCP - GeneralFamily Medicine10/10/23Team MemberRelationshipSpecialtyStart DateEnd Date Dewey Enriquez DO [address], [place] [address] PCP - GeneralFamily Medicine10/10/23Team MemberRelationshipSpecialtyStart DateEnd Date Dewey Enriquez DO [address], [place] [address] PCP - [facility]10/10/23Team MemberRelationshipSpecialtyStart DateEnd Date Dewey Enriquez DO [address], [place] [address] PCP - [facility]09/07/24Team MemberRelationshipSpecialtyStart DateEnd Date Dewey Enriquez DO [address], [place] [address] PCP - [facility]09/07/24 Team Status: Active Member Role Status Dates [...] [address], [place] [address] PCP - [facility]09/07/24Team MemberRelationshipSpecialtyStart DateEnd Date Dewey Enriquez DO [address], [place] [address] PCP - [facility]09/07/24Team MemberRelationshipSpecialtyStart DateEnd Date Dewey Enriquez DO [address], [place] [address] PCP - GeneralFamily Medicine09/07/24 Team Status: Inactive Member Role Status Dates Martita Hopper MD Attending Provider Active St art: October 09, 2024 End: October 09, 2024Team MemberRelationshipSpecialtyStart DateEnd Date Dewey Enriquez DO [address], [place] [address] PCP - GeneralFamily Medicine09/07/24Team MemberRelationshipSpecialtyStart DateEnd Date Dewey Enriquez DO [address], [place] [address] PCP - GeneralFamily Medicine09/07/24Team MemberRelationshipSpecialtyStart [place] [address] [place] [address] BMT OncologistHematology and Oncology03/26/25Team MemberRelationshipSpecialtyStart [place] [address] [place] [address] BMT OncologistHematology and Oncology03/26/25 Martita Hopper MD [address] [place] [address] [address] [place] [address] Referring PhysicianOncology04/01/25 Reason for Visit (unrecogniz ed section and content) ReasonCommentsFollow-upReasonCommentsReferralReasonOnset DateCommentsCRITICAL LAB09/06/2024ReasonOnset SemsEreauccoCwkpktm55/22/2025Right pleural effusion concern for malignancyReAtrium Health [facility] and discussion about referralReasonCommentsdiscuss oncologyReNov[facility]-up1 monthReasonComments3 month visitReasonOnset DateCommentsEncounter opened in error03/13/2025ReasonOnset DateCommentsReferral to Ibydmaooyt18/04/2025 Goals (unrecognized section and content) Goals may [...] BE BASED ON THE PRIMARY CLINICAL RECORDS. [facility] [employer] [facility]. provides no warranty or guarantee of the accuracy or completeness of information in this document.
[2025-06-13 15:39] LABS: Ferritin 1573.0 ng/mL (26.0-388.0); Folate 14.30 ng/mL (8.60-58.90)
[2025-06-13 16:04] LABS: Iron 250.0 ug/dL (65.0-175.0); Percent Iron Saturation 78.4 %; Total Iron Binding Capacity 319.0 ug/dL (250.0-450.0)
[2025-06-13] MEDS: ATORVASTATIN CALCIUM 40 MG TABLET 80 MG PO (21:35)
[2025-06-13] MEDS: ENOXAPARIN SODIUM 40 MG/0.4 ML SYRINGE SUBQ (21:35)
[2025-06-14] VITALS (17 sets, daily range): BP systolic 138–174; BP diastolic 63–85; PULSE 65–98; TEMP 36.6–37; O2SAT 92–96
--- NOTE | 2025-06-14 | MR_ITS ---
The [address] [address] Patient Name: PENNY MCQUEEN MRN: [id number] date: 1960 Sex: M Assigned Patient Location: [place] Current Patient Location: [place] Accession/Order Number: [id number] Exam Date: 06/14/2025 06:50 Report Date: 06/14/2025 09:33 At the request of: MP WANG MD Procedure: MR head/brain wo/w con MR head/brain wo/w con 06/14/2025 8:06 AM SIGN AND SYMPTOMS: Right medial rectus palsy, TIA, vision changes PROTOCOL: Multiplanar multisequence MR images of the brain with and without IV contrast CONTRAST: 16 mL of intravenous Dotarem COMPARISON: 06/13/2025 FINDINGS: Extra axial spaces: There is mild age-related cortical atrophy. Hemorrhage: None. Ventricular system: Within normal limits. Basal cisterns: Within normal limits and not effaced. Cerebral parenchyma: There are multiple focal areas of diffusion restriction in the periventricular and subcortical white matter of the bilateral frontal lobes, the right temporal lobe, and along the thalamus and posterior limb of the internal capsule on the right. Ventricular and subcortical white matter T2 and FLAIR hyperintense signal is also noted suggesting chronic microvascular ischemic change. Midline shift: None.. Cerebellum: Within normal limits. Brainstem: There is a focal area of diffusion restriction posterior aspect of the pontine tegmentum to the right of midline consistent with punctate focus of ischemia. OTHER: Calvarium: Normal marrow signal. Vascular system: Satisfactory flow voids within the anterior and posterior circulation. Visualized Paranasal sinuses: Within normal limits. Visualized Orbits: Within normal limits. Visualized upper cervical spine: Within normal limits. Sella and skull base: Within normal limits. MR/MR head/brain wo/w con IMPRESSION: Findings are consistent with acute to subacute ischemia involving the supratentorial brain and right-sided the pontine tegmentum as above. The bilateral as well as supra and infratentorial distribution suggests a central embolic source. No abnormal postcontrast enhancement. Chronic microvascular ischemic changes are noted along with mild age-related cortical atrophy. Impression dictated by: Adrian Maher M.D. 06/14/2025 9:33 AM Dictation Location: [place] [address] Electronically authenticated by: [id number] Y Date: 06/14/2025 09:33
[2025-06-14 06:05] LABS: Hemoglobin 7.2 g/dL (14.0-18.0); Mean Corpuscular HGB Conc 33.3 g/dL (29.9-35.2); Mean Corpuscular Hemoglobin 31.6 pg (25.9-34.0); Mean Corpuscular Volume 94.7 fL (80.0-94.0); Platelet Count 180 10^3/uL (150-450); Red Blood Count 2.28 10^6/uL (4.70-6.10); White Blood Count 8.5 10^3/uL (4.0-11.0)
[2025-06-14 06:10] LABS: Hematocrit 21.6 % (42.0-54.0)
[2025-06-14 06:14] LABS: Alanine Aminotransferase 37 U/L (16-63); Albumin Globulin Ratio 0.8; Albumin Level 3.9 g/dL (3.4-5.0); Alkaline Phosphatase 86 U/L (46-116); Anion Gap 10.2; Aspartate Amino Transferase 24 U/L (15-37); Blood Urea Nitrogen 16.0 mg/dL (7.0-18.0); Calcium 9.3 mg/dL (8.5-10.1); Carbon Dioxide 27.3 mmol/L (21.0-32.0); Chloride 101 mmol/L (98-107); Cholesterol 79 mg/dL (<=200); Estimated GFR (African America >60 (>=60 mL/min/1.73m^2); Estimated GFR (Non-African Ame >60 (>=60 mL/min/1.73m^2); Globulin 4.6 g/dL; Glucose 99 mg/dL (74-106); HDL Cholesterol 18 mg/dL (40-60); Magnesium 1.9 mg/dL (1.8-2.4); Potassium 4.5 mmol/L (3.5-5.1); Sodium 134 mmol/L (136-145); Total Protein 8.5 g/dL (6.4-8.2); Triglycerides 184 mg/dL (<=150); VLDL CHOLESTEROL 36.8 mg/dL
[2025-06-14 06:43] LABS: Band Neutrophils Absolute 0.3 10^3/uL (0.0-0.3); Basophils Abs Manual 0.08 10^3/uL (0.00-0.10); Basophils Percent Manual 1.0 % (0.2-2.0); Blast % Manual 3.0; Blast Absolute Manual 0.25; Eosinophils Absolute Manual 0.00 10^3/uL (0.00-0.70); Eosinophils Percent Manual 0.0 % (0.9-7.0); Lymphocytes Absolute Manual 1.02 10^3/uL (1.20-3.80); Lymphocytes Percent Manual 12.0 % (20.5-60.0)
[2025-06-14 06:44] LABS: Metamyelocytes Absolute Manual 0.08; Monocytes Absolute Manual 0.59 10^3/uL (0.30-0.80); Monocytes Percent Manual 7.0 % (1.7-12.0); Myelocytes % Manual 2.0; Myelocytes Absolute Manual 0.17; Segmented Neut Absolute Manual 6.03 10^3/uL (1.4-6.5); Segmented Neutrophils % Manual 71.0 (43.0-75.0)
[2025-06-14 06:45] LABS: Anisocytosis 2+
--- NOTE | 2025-06-14 08:30 | ECG_ITS ---
The [facility] Test Date: 2025-06-15 Pat Name: PENNY MCQUEEN Department: Room: 2191 Gender: Male Acquisition Manager: : 1960 Requested By: [id number] Order Number: [id number] Reading MD: CHRISTOPH FERRO M.D. Measurements Intervals [place] Rate: 86 P: 48 TN: 161 QRS: 30 QRSD: 108 T: 44 QT: 360 QTc: 433 Interpretive Statements SINUS RHYTHM 2440 Incomplete right bundle branch block Borderline ECG Compared to ECG 06/13/2025 11:32:05 Ventricular premature complex(es) no longer present Electronically Signed On 06-15-2025 17:51:49 EST by CHRISTOPH FERRO M.D.
--- NOTE | 2025-06-14 08:40 | CM.NOTE ---
Rounds made with Dr. Ramirez, pt continues to c/o blurred vision. Pt had MRI this am, awaiting results. No discharge today.
[2025-06-14] MEDS: ASPIRIN 81 MG TABLET.DR PO (08:54)
--- NOTE | 2025-06-14 10:56 | PM.HP ---
HPI H&P: HPI History of Present Illness Chief complaint: WEAKNESS, BLURRY VISION, WEAKNESS OF MEDICU RECTUS Narrative: Mr. Ordaz is a 64-year-old gentleman who came to the emergency room with few days history of having intermittent double vision versus blurry vision. Upon further questioning, patient reported having unsteady gait and needing to rely on furniture in the house to ambulate without falling. Patient denies any headaches. He denies any confusion or disorientation. No slurred speech. No focal weakness or numbness. 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 - Malignant neoplasm of lymphoid, hematopoietic and related tissue, unspecified (ICD-10) Diabetes ?E11.9 - Type 2 diabetes mellitus without complications (ICD-10) Dyslipidemia ?E78.5 - Hyperlipidemia, unspecified (ICD-10) Anemia requiring transfusions ?D64.9 - Anemia, unspecified (ICD-10) Social History Highest level of school completed/degree received: high school graduate Little interest or pleasure in doing things: not at all Feeling down, depressed, or hopeless: not at all Meds Home Medications and Allergies Home Medications ?Medication ?Instructions ?Recorded ?Confirmed ?Type melatonin 10 mg capsule 10 mg PO BEDTIME 10/09/24 06/13/25 History rosuvastatin 10 mg tablet 10 mg PO .qhs 10/09/24 06/13/25 History luspatercept-aamt 75 mg 125 mg subcut Q21D 06/13/25 06/13/25 History subcutaneous solution (Reblozyl) momelotinib 100 mg tablet (Ojjaara) 200 mg PO DAILY 06/13/25 06/13/25 History Allergies Allergy/AdvReac Type Severity Reaction Status Date / Time No Known Drug Allergies Allergy Verified 10/09/24 17:41 Exam Narrative Exam Narrative: [pt is awake and alert. oriented to place, time and person, cachectic and frail in appearance HEENT: [place] conjunctiva and NL buccal mucosa. Bitemporal muscle wasting Neck: Supple, no tenderness Endocrine: No Thyromegaly. Vascular: No JVD or carotid bruit. Lymphatic: No cervical lymphadenopathy. Chest: CTA no DTP. Heart RRR, no extra sound or murmur. Abd: Soft, no tenderness, no rebound and no rigidity. Increase abd girth therefore clinically I could not exclude the possibility of intra abd mass or organomegaly. LE: No cyanosis or clubbing, no varices or edema. Upper and lower extremities muscle wasting atrophy Neuro: A A O. Nl speech, comprehension and attention. Nl and symetrical motor and tone examination through out. Patient does have nystagmus, horizontal. Patient has double vision that resolves when he closes 1 eye at a time Patient has ataxia when ambulating. He needs 1 person assist to keep them straight and prevent falling. []] Constitutional Vital Signs, click to edit/add: Last Vital Signs Temp 98.6 F 06/14/25 08:33 Pulse 86 06/14/25 09:57 Resp 18 06/14/25 03:42 BP 152/63 H 06/14/25 08:33 Pulse Ox 93 L 06/14/25 08:33 O2 Del Method Room Air 06/14/25 08:33 Results Labs Labs: Short CBC 06/13/25 06/14/25 Range/Units 11:29 05:23 WBC 12.1 H 8.5 (4.0-11.0) 10^3/uL Hgb 7.7 L 7.2 L (14.0-18.0) g/dL Hct 22.5 L* 21.6 L* (42.0-54.0) % Plt Count 201 180 (150-450) 10^3/uL BMP 06/13/25 06/14/25 11:29 05:23 Sodium 139 134 L Potassium 4.9 4.5 Chloride 101 101 Carbon Dioxide 27.6 27.3 BUN 14.0 16.0 Creatinine 1.21 1.08 Glucose 111 H 99 Calcium 9.4 9.3 Liver Function 06/14/25 Range/Units 05:23 Total Bilirubin 0.9 (0.2-1.0) mg/dL AST 24 (15-37) U/L ALT 37 (16-63) U/L Alkaline Phosphatase 86 (46-116) U/L Albumin 3.9 (3.4-5.0) g/dL Assessment and Plan Assessment and Plan (1) Acute CVA (cerebrovascular accident): Plan Acute stroke. MRI showed acute/subacute ischemia involving supra tentorial brain, right-sided pontine and bilateral supra and infratentorial changes suggestive of an embolic phenomena. ER physician I discussed his case with telestroke. CTA of the head and neck came back negative for vascular occlusion Echocardiogram is pending. I started patient on aspirin daily as well as Lovenox subcu injection. I also started patient on high intensity statin. Telemetry monitoring rule out cardiac dysrhythmia Not sure if patient would need to be on anticoagulation or dual antiplatelet therapy. Consulted neuroteam. PT OT eval and treatment. Known history of myelo fibrotic disorder, myelodysplastic disorder associated with a chronic anemia Patient also is known to have lymphadenopathy. I suspect that patient could have hypercoagulable state. I will discuss with neurology and oncology. Hemoglobin is stable around 7.2. No justification for transfusion. Iron study is not consistent with iron deficiency
--- NOTE | 2025-06-14 11:00 | CM.NOTE ---
CM discussed status with Dr. Ramirez, pt will change to inpatient status. Order entered by RN
--- NOTE | 2025-06-14 11:34 | CM.NOTE ---
Medicare Outpatient Observation Notice discussed with pt, pt verbalizes understanding and signs paper. Original given to pt and copy placed in pt's chart.
--- NOTE | 2025-06-14 13:12 | CM.NOTE ---
CM provided pt with eye patch to R eye. Pt denies other needs at this time.
--- NOTE | 2025-06-14 13:42 | CM.NOTE ---
Important Message From Medicare discussed with pt, pt verbalizes understanding and signs paper. Original given to pt and copy placed in pt's chart.
--- NOTE | 2025-06-14 14:01 | SWNOTE1 ---
SW reviewed therapy notes and pt has no identified needs by therapy at discharge.
--- NOTE | 2025-06-14 14:29 | CA_ITS ---
Patient Name: PENNY MCQUEEN MR#: [id number] : 1960 Exam Date: 06/14/2025 Ordering Doctor: MP WANG ECHOCARDIOGRAM REPORT PROCEDURE: CA ECHO DOPPLER COMPLETE INDICATIONS: TIA, diabetes, bone marrow cancer COMPARISON: None. DESCRIPTION: COMPLETE ECHOCARDIOGRAM Real-time transthoracic echocardiography with 2D, M-mode, spectral and color flow Doppler performed. QUALITY: Technical quality was good. LEFT VENTRICLE: Normal chamber size. Mild concentric left ventricular hypertrophy. Estimated left ventricular ejection fraction is 65-70%. LV EF: Normal left ventricular ejection fraction, (>55%). DIASTOLIC: Diastolic function is indeterminate. ATRIAL SEPTUM: Visually appears intact. LEFT ATRIUM: Mild dilatation. RIGHT ATRIUM: Normal chamber size. RIGHT VENTRICLE: Normal chamber size. Normal right ventricular systolic function. TRICUSPID VALVE: Normal mobility and thickness. No stenosis with no regurgitation. Unable to assess right-sided pressures due to lack of measurable tricuspid regurgitation. MITRAL VALVE: Normal mobility and thickness. No evidence of mitral valve stenosis. There is no mitral annular calcification. No mitral regurgitation. AORTIC VALVE: Normal trileaflet appearance. No visible sclerosis. Normal leaflet mobility. No evidence of aortic valve stenosis. No aortic regurgitation. AORTIC ROOT: Normal diameter and appearance, measuring 3.6 cm. PULMONIC VALVE: Normal thickness and mobility. No stenosis. No regurgitation. PERICARDIUM: No evidence of pericardial effusion. IVC: Collapses with inspiration. PLEURA: CONCLUSION: 1. Mild concentric left ventricular hypertrophy with normal systolic function. LVEF is estimated at 65-70%. 2. Normal right ventricular size and systolic function. 3. No significant valvular dysfunction. 4. Unable to assess right-sided pressures due to lack of measurable tricuspid regurgitation. Adult Echocardiography Procedure Report Left Ventricle LVEDD (3.7 - 5.6 cm): 4.84 cm LVESD (2.2 - 4.0 cm): 3.53 cm LVIVS thickness (0.6 - 1.2 cm): 1.45 cm LVPW thickness (0.5 - 1.0 cm): 1.24 cm e': 0.09 m/s E - e': 9.06 LVOT Max Gradient: 6.00 mm[Hg] LVOT Area (cm2): 1.22 m/s Peak Velocity (LVOT): 1.22 m/s Mean Velocity (LVOT): 0.63 m/s LVOT Diameter 1.98 cm Left Ventricular Ejection Fraction: 65-70 % Left Atrium LA Volume Index (2D A2C): 41.65 ml/m2 Mitral Valve MV E to A Ratio: 0.63 Mitral Valve A-Wave Peak Velocity: 1.32 m/s Mitral Valve E-Wave Peak Velocity: 0.83 m/s Right Ventricle Aorta AO Root Diam: 3.64 cm Aortic Valve AoV Area (Peak Paul): 2.26 cm2, 2.26 cm2 AoV Area (VTI): 2.22 cm2, 2.22 cm2 Peak Velocity(Antegrade Flow): 1.66 m/s Peak Gradient(Antegrade Flow): 11.06 mm[Hg] Mean Velocity(Antegrade Flow): 1.04 m/s Mean Gradient(Antegrade Flow): 5.15 mm[Hg] Velocity Time Integral: 33.93 cm Tricuspid Valve Pulmonic Valve Mean Gradient: 3.81 mm[Hg] Mean Velocity: 0.92 m/s Peak Velocity: 1.32 m/s Peak Gradient: 6.94 mm[Hg] Right Atrium Right Atrium Systolic Pressure: 61.43 ml, 61.43 ml Dictated by: Quoc Roberts M.D. on 06/17/2025 at 09:16 Approved by: Quoc Roberts M.D. on 06/17/2025 at 09:21
[2025-06-14] MEDS: ACETAMINOPHEN 325 MG TABLET 650 MG PO (14:35)
[2025-06-14] MEDS: ENOXAPARIN SODIUM 100 MG/ML SYRINGE 70 MG SUBQ (21:21)
[2025-06-14] MEDS: ATORVASTATIN CALCIUM 40 MG TABLET 80 MG PO (21:21)
[2025-06-15] VITALS (19 sets, daily range): BP systolic 131–155; BP diastolic 64–78; PULSE 45–114; TEMP 36.4–36.9; O2SAT 89–98
[2025-06-15 07:07] LABS: Vitamin B12 1419 pg/mL (232-1245)
[2025-06-15] MEDS: ASPIRIN 81 MG TABLET.DR PO (08:06)
[2025-06-15] MEDS: ENOXAPARIN SODIUM 100 MG/ML SYRINGE 70 MG SUBQ ×2 (08:06→21:44)
--- NOTE | 2025-06-15 10:29 | PM.PN ---
Progress Note: Subjective Subjective Interval history: Persistent double vision. No other symptoms. No headaches, weakness or numbness. Exam Narrative Exam Narrative: [pt is awake and alert. oriented to place, time and person, cachectic and frail in appearance HEENT: [place] conjunctiva and NL buccal mucosa. Bitemporal muscle wasting Neck: Supple, no tenderness Endocrine: No Thyromegaly. Vascular: No JVD or carotid bruit. Lymphatic: No cervical lymphadenopathy. Chest: CTA no DTP. Heart RRR, no extra sound or murmur. Abd: Soft, no tenderness, no rebound and no rigidity. Increase abd girth therefore clinically I could not exclude the possibility of intra abd mass or organomegaly. LE: No cyanosis or clubbing, no varices or edema. Upper and lower extremities muscle wasting atrophy Neuro: A A O. Nl speech, comprehension and attention. Nl and symetrical motor and tone examination through out. Patient does have nystagmus, horizontal. Patient has double vision that resolves when he closes 1 eye at a time Patient has ataxia when ambulating. He needs 1 person assist to keep them straight and prevent falling. []] Constitutional Vital Signs, click to edit/add: Last Vital Signs Temp 97.5 F L 06/15/25 08:14 Pulse 89 06/15/25 09:59 Resp 14 06/15/25 03:47 BP 149/78 H 06/15/25 08:14 Pulse Ox 95 06/15/25 08:14 O2 Del Method Room Air 06/15/25 08:14 Progress Note: A&P Assessment and Plan (1) Acute CVA (cerebrovascular accident): Plan Acute stroke. MRI showed acute/subacute ischemia involving supra tentorial brain, right-sided pontine and bilateral supra and infratentorial changes suggestive of an embolic phenomena. ER physician I discussed his case with telestroke. CTA of the head and neck came back negative for vascular occlusion Echocardiogram is pending. I started patient on aspirin daily as well as Lovenox subcu injection. I also started patient on high intensity statin. Telemetry monitoring rule out cardiac dysrhythmia Patient is on 2 medications ( Reblozyl and Ojjara )for myelofibrosis that potentially could cause coagulopathy and thrombosis. Holding both meds for now. Waiting on final decision by oncology and neurology to decide treatment options. Known history of myelo fibrotic disorder, myelodysplastic disorder associated with a chronic anemia Patient also is known to have lymphadenopathy. I suspect that patient could have hypercoagulable state. Hemoglobin is stable around 7.2. No justification for transfusion. Iron study is not consistent with iron deficiency
--- NOTE | 2025-06-15 11:14 | PT.DAILY ---
Physical Therapy Daily Note PT Daily Note/Assess Start: 06/14/25 12:40 Freq: Status: Active Protocol: Document 06/15/25 11:04 [id number] (Rec: 06/15/25 11:14 [id number] No Response) Physical Therapy Daily Note/Assessment Time In/Time Out Time In 09:08 Time Out 09:21 Pain In Pain Level 0 Pain Out Pain Level 0 Subjective Subjective Patient received in bed and agreeable to participate with PT if he can return to bed for a nap. Patient states he feels weak to his legs, points to LUAN thighs and R calf. Therapeutic Exercise Time Therapeutic Exercise 3 Minutes (minutes) Therapeutic Exercise 0 Units Therapeutic Exercise Treatment Therapeutic Exercise Seated LUAN LE ther ex to increase strength for Treatment functional mobility w/ ADL's. Ther ex included: MRE for marching, hip ABD/ADD and LAQ's. Patient able to tolerated a fair amount to resistance. Good seated balance. Therapeutic Activity Time Therapeutic Activity 10 Minutes (minutes) Therapeutic Activity 1 Units Therapeutic Activity Treatment Bed Mobility Ability Modified Independent Chair Transfer Standby Assistance Ability Therapeutic Activity Bed mobility: supine to R SL to sit at EOB w/ use of R Comments hand rail is MOD I. Patient with good seated balance. VC's to sit upright secondary to slouched posture. Gait belt donned for safety. Transfer: sit to stand to 2WW is SBA +1. VC's for safe hand placement prior to standing. Patient ambulated ~120' x1 with 2WW w/ SBA + 1. No LOB observed during ambulation, patient demonstrates a slow pace and slight sway. Stand to sit to EOB and transfer into bed w/ SBA to MOD I. All patient needs met and CWBR. Nursing notified of patient placement. Total Physical Therapy Time Total Therapy 13 Minutes Total Physical 1 Therapy Units Summary Daily Note Summary Patient with increased ambulation distance, however, pace of gait is slow and slight sway side to side. Patient request to go home with family.
[2025-06-15] MEDS: TRIAMCINOLONE ACETONIDE 0.1% CREAM 15 GM TUBE 1 APPLIC TOPICAL ×2 (15:37→21:47)
[2025-06-15] MEDS: ATORVASTATIN CALCIUM 40 MG TABLET 80 MG PO (21:44)
[2025-06-16] VITALS (25 sets, daily range): BP systolic 103–165; BP diastolic 58–77; PULSE 77–113; TEMP 36.6–37.6; O2SAT 90–96
--- NOTE | 2025-06-16 08:41 | PM.PN ---
Progress Note: Subjective Subjective Interval history: Persistent double vision. No other symptoms. No headaches, weakness or numbness. Patient reported that his gait had improved. He is able to ambulate with a walker. Exam Narrative Exam Narrative: [pt is awake and alert. oriented to place, time and person, cachectic and frail in appearance HEENT: [place] conjunctiva and NL buccal mucosa. Bitemporal muscle wasting Neck: Supple, no tenderness Endocrine: No Thyromegaly. Vascular: No JVD or carotid bruit. Lymphatic: No cervical lymphadenopathy. Chest: CTA no DTP. Heart RRR, no extra sound or murmur. Abd: Soft, no tenderness, no rebound and no rigidity. Increase abd girth therefore clinically I could not exclude the possibility of intra abd mass or organomegaly. LE: No cyanosis or clubbing, no varices or edema. Upper and lower extremities muscle wasting atrophy Neuro: A A O. Nl speech, comprehension and attention. Nl and symetrical motor and tone examination through out. Patient does have nystagmus, horizontal. This had subsided since admission. Patient continues to have double vision that resolves when he closes 1 eye at a time Patient has ataxia when ambulating. Ataxia intensity has subsided. He needs 1 person assist to keep them straight and prevent falling. []] Constitutional Vital Signs, click to edit/add: Last Vital Signs Temp 99.6 F 06/16/25 07:42 Pulse 90 06/16/25 08:11 Resp 16 06/16/25 03:40 BP 103/64 06/16/25 07:42 Pulse Ox 93 L 06/16/25 07:42 O2 Del Method Room Air 06/16/25 07:42 Progress Note: A&P Assessment and Plan (1) Acute CVA (cerebrovascular accident): Plan Acute stroke. MRI showed acute/subacute ischemia involving supra tentorial brain, right-sided pontine and bilateral supra and infratentorial changes suggestive of an embolic phenomena. ER physician I discussed his case with telestroke. CTA of the head and neck came back negative for vascular occlusion Echocardiogram is pending. I started patient on aspirin daily as well as Lovenox subcu injection. I also started patient on high intensity statin. Telemetry monitoring rule out cardiac dysrhythmia Patient is on 2 medications ( Reblozyl and Ojjara )for myelofibrosis that potentially could cause coagulopathy and thrombosis. Holding both meds for now. Waiting on final decision by oncology and neurology to decide treatment options. Known history of myelo fibrotic disorder, myelodysplastic disorder associated with a chronic anemia Patient also is known to have lymphadenopathy. I suspect that patient could have hypercoagulable state. Hemoglobin is stable around 7.2. No justification for transfusion. Iron study is not consistent with iron deficiency
[2025-06-16 09:36] LABS: Mean Corpuscular HGB Conc 34.6 g/dL (29.9-35.2); Mean Corpuscular Hemoglobin 32.6 pg (25.9-34.0); Mean Corpuscular Volume 94.2 fL (80.0-94.0); Platelet Count 123 10^3/uL (150-450); Red Blood Count 1.90 10^6/uL (4.70-6.10); White Blood Count 8.3 10^3/uL (4.0-11.0)
[2025-06-16] MEDS: ASPIRIN 81 MG TABLET.DR PO (09:38)
[2025-06-16] MEDS: ENOXAPARIN SODIUM 100 MG/ML SYRINGE 70 MG SUBQ (09:38)
[2025-06-16 09:42] LABS: Hemoglobin 6.2 g/dL (14.0-18.0)
[2025-06-16] MEDS: MAGNESIUM HYDROXIDE 2,400 MG/10 ML ORAL.SUSP 2400 MG PO (09:42)
[2025-06-16] MEDS: SENNOSIDES/DOCUSATE SODIUM 1 TAB TABLET 2 TAB PO (09:42)
[2025-06-16 09:43] LABS: Hematocrit 17.9 % (42.0-54.0)
[2025-06-16 09:49] LABS: Anion Gap 15.6; Blood Urea Nitrogen 19.0 mg/dL (7.0-18.0); Calcium 8.6 mg/dL (8.5-10.1); Carbon Dioxide 25.9 mmol/L (21.0-32.0); Chloride 102 mmol/L (98-107); Estimated GFR (African America >60 (>=60 mL/min/1.73m^2); Estimated GFR (Non-African Ame >60 (>=60 mL/min/1.73m^2); Glucose 135 mg/dL (74-106); Potassium 4.5 mmol/L (3.5-5.1); Sodium 139 mmol/L (136-145)
[2025-06-16 20:51] LABS: Hemoglobin 8.5 g/dL (14.0-18.0)
[2025-06-16 20:53] LABS: Hematocrit 23.6 % (42.0-54.0)
[2025-06-16] MEDS: ATORVASTATIN CALCIUM 40 MG TABLET 80 MG PO (21:09)
[2025-06-16] MEDS: TRIAMCINOLONE ACETONIDE 0.1% CREAM 15 GM TUBE 1 APPLIC TOPICAL (21:10)
[2025-06-17] VITALS (21 sets, daily range): BP systolic 132–164; BP diastolic 66–79; PULSE 72–122; TEMP 36.6–37.1; O2SAT 91–98
[2025-06-17 06:07] LABS: Hematocrit 24.7 % (42.0-54.0); Hemoglobin 8.6 g/dL (14.0-18.0); Mean Corpuscular HGB Conc 34.8 g/dL (29.9-35.2); Mean Corpuscular Hemoglobin 31.5 pg (25.9-34.0); Mean Corpuscular Volume 90.5 fL (80.0-94.0); Platelet Count 136 10^3/uL (150-450); Red Blood Count 2.73 10^6/uL (4.70-6.10); White Blood Count 9.3 10^3/uL (4.0-11.0)
[2025-06-17 06:16] LABS: Anion Gap 13.0; Blood Urea Nitrogen 17.0 mg/dL (7.0-18.0); Calcium 8.9 mg/dL (8.5-10.1); Carbon Dioxide 26.8 mmol/L (21.0-32.0); Chloride 102 mmol/L (98-107); Estimated GFR (African America >60 (>=60 mL/min/1.73m^2); Estimated GFR (Non-African Ame >60 (>=60 mL/min/1.73m^2); Glucose 110 mg/dL (74-106); Potassium 4.8 mmol/L (3.5-5.1); Sodium 137 mmol/L (136-145)
--- NOTE | 2025-06-17 08:35 | CM.NOTE ---
Rounds made with Dr. Ramirez, discussed plan of care with pt. No discharge today, pt will see oncology 06/18.
[2025-06-17] MEDS: SENNOSIDES/DOCUSATE SODIUM 1 TAB TABLET 2 TAB PO ×2 (08:50→21:41)
[2025-06-17] MEDS: TRIAMCINOLONE ACETONIDE 0.1% CREAM 15 GM TUBE 1 APPLIC TOPICAL (08:51)
[2025-06-17] MEDS: ASPIRIN 81 MG TABLET.DR PO (08:51)
--- NOTE | 2025-06-17 09:12 | PM.PN ---
Progress Note: Subjective Subjective Interval history: Persistent double vision. No other symptoms. No headaches, weakness or numbness. Patient reported that his gait had improved. He is able to ambulate with a walker. Exam Narrative Exam Narrative: [pt is awake and alert. oriented to place, time and person, cachectic and frail in appearance HEENT: [place] conjunctiva and NL buccal mucosa. Bitemporal muscle wasting Neck: Supple, no tenderness Endocrine: No Thyromegaly. Vascular: No JVD or carotid bruit. Lymphatic: No cervical lymphadenopathy. Chest: CTA no DTP. Heart RRR, no extra sound or murmur. Abd: Soft, no tenderness, no rebound and no rigidity. Increase abd girth therefore clinically I could not exclude the possibility of intra abd mass or organomegaly. LE: No cyanosis or clubbing, no varices or edema. Upper and lower extremities muscle wasting atrophy Neuro: A A O. Nl speech, comprehension and attention. Nl and symetrical motor and tone examination through out. Patient does have nystagmus, horizontal. This had subsided since admission. Patient continues to have double vision that resolves when he closes 1 eye at a time Patient has ataxia when ambulating. Ataxia intensity has subsided. He needs 1 person assist to keep them straight and prevent falling. []] Constitutional Vital Signs, click to edit/add: Last Vital Signs Temp 98.8 F 06/17/25 07:20 Pulse 93 H 06/17/25 08:00 Resp 18 06/17/25 07:20 BP 164/77 H 06/17/25 07:20 Pulse Ox 94 L 06/17/25 07:20 O2 Del Method Room Air 06/17/25 07:20 Progress Note: Objective Labs Labs: Short CBC 06/16/25 06/16/25 06/17/25 Range/Units 09:17 20:30 05:38 WBC 8.3 9.3 (4.0-11.0) 10^3/uL Hgb 6.2 L* 8.5 L 8.6 L (14.0-18.0) g/dL Hct 17.9 L* 23.6 L* 24.7 L (42.0-54.0) % Plt Count 123 L 136 L (150-450) 10^3/uL BMP 06/16/25 06/17/25 09:17 05:38 Sodium 139 137 Potassium 4.5 4.8 Chloride 102 102 Carbon Dioxide 25.9 26.8 BUN 19.0 H 17.0 Creatinine 1.16 1.03 Glucose 135 H 110 H Calcium 8.6 8.9 Progress Note: A&P Assessment and Plan (1) Acute CVA (cerebrovascular accident): Plan Acute stroke. MRI showed acute/subacute ischemia involving supra tentorial brain, right-sided pontine and bilateral supra and infratentorial changes suggestive of an embolic phenomena. ER physician I discussed his case with telestroke. CTA of the head and neck came back negative for vascular occlusion Echocardiogram is pending. I started patient on aspirin daily as well as Lovenox subcu injection. (Lovenox placed on hold due to hemoglobin drop and heme positive stool ) I also started patient on high intensity statin. Telemetry monitoring rule out cardiac dysrhythmia. No dysrhythmia noted thus far. Patient is on 2 medications ( Reblozyl and Ojjara )for myelofibrosis that potentially could cause coagulopathy and thrombosis. Holding both meds for now given the potential embolic stroke he had. Waiting on final decision by oncology and neurology to decide treatment options. If Dr. Hopper recommends anticoagulation then patient may need to have GI investigation for heme positive stool. Anemia which likely has combined etiology. Myelofibrosis as well as heme positive stool. No gross melena. No hematemesis. No hematuria. Iron study is not consistent with iron deficiency. I initially started patient on Lovenox 1 mg/kg twice a day for embolic stroke prevention. That was held on 06/16 due to hemoglobin drop and heme positive stool I started patient on PPI. Patient will need GI investigation electively. Sooner than later GI investigation if Dr. Hopper recommends patient to be started on anticoagulation in consultation with neurology team. Meanwhile continue to monitor hemoglobin Known history of myelo fibrotic disorder, myelodysplastic disorder associated with a chronic anemia Patient also is known to have lymphadenopathy. I suspect that patient could have hypercoagulable state secondary to Reblozyl and momelotinib. Pending Dr. Hopper evaluation and recommendation in regard to his heme oncology medication.
[2025-06-17] MEDS: PANTOPRAZOLE SODIUM 40 MG VIAL IV (09:37)
[2025-06-17] MEDS: PANTOPRAZOLE SODIUM 40 MG TABLET.DR PO (21:40)
[2025-06-17] MEDS: ATORVASTATIN CALCIUM 40 MG TABLET 80 MG PO (21:40)
[2025-06-17] MEDS: TEMAZEPAM 15 MG CAPSULE PO (21:40)
[2025-06-18] VITALS (20 sets, daily range): BP systolic 120–152; BP diastolic 63–71; PULSE 81–106; TEMP 36.3–36.9; O2SAT 91–96
[2025-06-18 05:33] LABS: Hematocrit 24.4 % (42.0-54.0); Hemoglobin 8.5 g/dL (14.0-18.0); Mean Corpuscular HGB Conc 34.8 g/dL (29.9-35.2); Mean Corpuscular Hemoglobin 31.6 pg (25.9-34.0); Mean Corpuscular Volume 90.7 fL (80.0-94.0); Platelet Count 106 10^3/uL (150-450); Red Blood Count 2.69 10^6/uL (4.70-6.10); White Blood Count 9.3 10^3/uL (4.0-11.0)
--- NOTE | 2025-06-18 09:05 | CM.NOTE ---
Rounds made with Dr. Ramirez, possible discharge to home today. Dr. Ramirez will speak with Dr. Hopper prior to discharge for further recommendations.
[2025-06-18] MEDS: SENNOSIDES/DOCUSATE SODIUM 1 TAB TABLET 2 TAB PO ×2 (09:52→21:28)
[2025-06-18] MEDS: PANTOPRAZOLE SODIUM 40 MG TABLET.DR PO ×2 (09:52→21:28)
[2025-06-18] MEDS: MAGNESIUM HYDROXIDE 2,400 MG/10 ML ORAL.SUSP 2400 MG PO (09:52)
[2025-06-18] MEDS: ASPIRIN 81 MG TABLET.DR PO (09:52)
[2025-06-18] MEDS: TRIAMCINOLONE ACETONIDE 0.1% CREAM 15 GM TUBE 1 APPLIC TOPICAL ×2 (09:53→21:31)
--- NOTE | 2025-06-18 11:20 | CM.NOTE ---
Dr. Ramirez requests CM to contact neurologist to speak with Dr. Hopper regarding discharging on anticoagulation therapy. CM called neurology main office at [phone], information provided and office with contact Dr. Lloyd to have him reach out to Dr. Hopper (cell number provided). Updated Dr. Ramirez
--- NOTE | 2025-06-18 11:36 | P.PN_ITS ---
Progress Note: Subjective Subjective Interval history: Persistent double vision. No other symptoms. No headaches, weakness or numbness. Patient reported that his gait had improved. He is able to ambulate with a walker. Sometimes he can ambulate without walker Exam Narrative Exam Narrative: [pt is awake and alert. oriented to place, time and person, cachectic and frail in appearance HEENT: [place] conjunctiva and NL buccal mucosa. Bitemporal muscle wasting Neck: Supple, no tenderness Endocrine: No Thyromegaly. Vascular: No JVD or carotid bruit. Lymphatic: No cervical lymphadenopathy. Chest: CTA no DTP. Heart RRR, no extra sound or murmur. Abd: Soft, no tenderness, no rebound and no rigidity. Increase abd girth therefore clinically I could not exclude the possibility of intra abd mass or organomegaly. LE: No cyanosis or clubbing, no varices or edema. Upper and lower extremities muscle wasting atrophy Neuro: A A O. Nl speech, comprehension and attention. Nl and symetrical motor and tone examination through out. Patient does have nystagmus, horizontal. This had subsided significant since admission. Patient continues to have double vision that resolves when he closes 1 eye at a time Patient has ataxia when ambulating. Ataxia intensity has subsided significantly. He needs 1 person supervision []] Constitutional Vital Signs, click to edit/add: Last Vital Signs Temp 97.8 F 06/18/25 11:33 Pulse 96 H 06/18/25 11:33 Resp 18 06/18/25 11:33 BP 120/66 06/18/25 11:33 Pulse Ox 94 L 06/18/25 11:33 O2 Del Method Room Air 06/18/25 11:33 Progress Note: Objective Labs Labs: Short CBC 06/18/25 Range/Units 05:18 WBC 9.3 (4.0-11.0) 10^3/uL Hgb 8.5 L (14.0-18.0) g/dL Hct 24.4 L (42.0-54.0) % Plt Count 106 L (150-450) 10^3/uL Progress Note: A&P Assessment and Plan (1) Acute CVA (cerebrovascular accident): Plan Acute stroke. MRI showed acute/subacute ischemia involving supra tentorial brain, right-sided pontine and bilateral supra and infratentorial changes suggestive of an embolic phenomena. ER physician I discussed his case with telestroke. CTA of the head and neck came back negative for vascular occlusion Echocardiogram is pending. I started patient on aspirin daily as well as Lovenox subcu injection. (Lovenox placed on hold due to hemoglobin drop and heme positive stool ) I also started patient on high intensity statin. Telemetry monitoring rule out cardiac dysrhythmia. No dysrhythmia noted thus far. Patient is on 2 medications ( Reblozyl and Ojjara )for myelofibrosis that potentially could cause coagulopathy and thrombosis. Holding both meds for now given the potential embolic stroke he had. Dr. Hopper could not make it to see the patient in person today. I called him and I discussed his case with him. We discussed his MRI finding and the suspicion by neurology and radiology that patient had embolic stroke. I discussed with him his myelofibrosis and the 2 medications that he is on that co uld potentially increase his risk having coagulopathy. I discussed with him that patient has positive stool Hemoccult and that he required 2 units of RBC transfusion. Dr. Hopper stated that he will connect with his bone marrow transplant team in [place] as well as with the neurology team to discuss his case further and make a decision whether patient would need to be on anticoagulation and/or only antiplatelets. Anemia which likely has combined etiology. Myelofibrosis as well as heme positive stool. No gross melena. No hematemesis. No hematuria. Iron study is not consistent with iron deficiency. I initially started patient on Lovenox 1 mg/kg twice a day for embolic stroke prevention. That was held on 06/16 due to hemoglobin drop and heme positive stool I started patient on PPI. Patient will need GI investigation electively. Sooner than later GI investigation if Dr. Hopper recommends patient to be started on anticoagulation in consultation with neurology team. Meanwhile continue to monitor hemoglobin Known history of myelo fibrotic disorder, myelodysplastic disorder associated with a chronic anemia Patient also is known to have lymphadenopathy. I suspect that patient could have hypercoagulable state secondary to Reblozyl and momelotinib. As listed above, I discussed this case with Dr. Hopper who will discuss the case further with the bone marrow team as well as neurology before making final recommendation.
--- NOTE | 2025-06-18 12:28 | CM.NOTE ---
CM spoke with pt regarding HH services, pt is in agreement for PT and nurse to come in after discharge. Pt does not have a preference after reviewing agencies, [facility] was sent new referral. Case Management referral notes, progress notes and face sheet.
--- NOTE | 2025-06-18 14:06 | PM.EN ---
Event Note Event Note: Dr. Hopper got back to me. He stated that he discussed this case with the bone marrow team in [place]. The recommendation was made for patient to continue to take luspatercept and momelotinib and also to start him on Eliquis 5 mg twice a day for presumptive embolic stroke. Patient will follow-up with neurology, Dr. Hopper and his bone marrow team. Patient will also need arrangement for GI given his heme positive stool.
--- NOTE | 2025-06-18 15:10 | SWNOTE1 ---
SW received a call from [facility] and they are not able to accept due to pt's insurance. MK faxed referral to [facility]. Referral included face sheet, physician notes, and therapy notes.
[2025-06-18] MEDS: APIXABAN 5 MG TABLET PO (21:27)
[2025-06-18] MEDS: ATORVASTATIN CALCIUM 40 MG TABLET 80 MG PO (21:27)
[2025-06-18] MEDS: TEMAZEPAM 15 MG CAPSULE PO (21:28)
[2025-06-19] VITALS (18 sets, daily range): BP systolic 125–154; BP diastolic 56–74; PULSE 81–98; TEMP 36.5–36.9; O2SAT 93–98
[2025-06-19 05:38] LABS: Hemoglobin 8.0 g/dL (14.0-18.0); Mean Corpuscular HGB Conc 34.6 g/dL (29.9-35.2); Mean Corpuscular Hemoglobin 31.9 pg (25.9-34.0); Mean Corpuscular Volume 92.0 fL (80.0-94.0); Platelet Count 130 10^3/uL (150-450); Red Blood Count 2.51 10^6/uL (4.70-6.10); White Blood Count 9.8 10^3/uL (4.0-11.0)
[2025-06-19 06:03] LABS: Hematocrit 23.1 % (42.0-54.0)
--- NOTE | 2025-06-19 08:15 | CM.NOTE ---
Rounds made with Dr. Ramirez, discussed plan of care with pt. Dr. Hopper will consult on pt today for further recommendations.
--- NOTE | 2025-06-19 08:45 | PM.PN ---
Progress Note: Subjective Subjective Interval history: Persistent double vision. No other symptoms. No headaches, weakness or numbness. Patient reported that his gait had improved. He is able to ambulate with a walker. Sometimes he can ambulate without walker Exam Narrative Exam Narrative: [pt is awake and alert. oriented to place, time and person, cachectic and frail in appearance HEENT: [place] conjunctiva and NL buccal mucosa. Bitemporal muscle wasting Neck: Supple, no tenderness Endocrine: No Thyromegaly. Vascular: No JVD or carotid bruit. Lymphatic: No cervical lymphadenopathy. Chest: CTA no DTP. Heart RRR, no extra sound or murmur. Abd: Soft, no tenderness, no rebound and no rigidity. Increase abd girth therefore clinically I could not exclude the possibility of intra abd mass or organomegaly. LE: No cyanosis or clubbing, no varices or edema. Upper and lower extremities muscle wasting atrophy Neuro: A A O. Nl speech, comprehension and attention. Nl and symetrical motor and tone examination through out. Patient does have nystagmus, horizontal. This had subsided significant since admission. Patient continues to have double vision that resolves when he closes 1 eye at a time Patient has ataxia when ambulating. Ataxia intensity has subsided significantly. He needs 1 person supervision []] Constitutional Vital Signs, click to edit/add: Last Vital Signs Temp 97.9 F 06/19/25 07:19 Pulse 83 06/19/25 07:57 Resp 16 06/19/25 07:19 BP 140/70 06/19/25 07:19 Pulse Ox 93 L 06/19/25 07:19 O2 Del Method Room Air 06/19/25 07:19 Progress Note: Objective Labs Labs: Short CBC 06/19/25 Range/Units 04:35 WBC 9.8 (4.0-11.0) 10^3/uL Hgb 8.0 L (14.0-18.0) g/dL Hct 23.1 L* (42.0-54.0) % Plt Count 130 L (150-450) 10^3/uL Progress Note: A&P Assessment and Plan (1) Acute CVA (cerebrovascular accident): Plan Acute stroke. MRI showed acute/subacute ischemia involving supra tentorial brain, right-sided pontine and bilateral supra and infratentorial changes suggestive of an embolic phenomena. ER physician I discussed his case with teleroke. CTA of the head and neck came back negative for vascular occlusion Echocardiogram is pending. I started patient on aspirin daily as well as Lovenox subcu injection. (Lovenox placed on hold due to hemoglobin drop and heme positive stool ) I also started patient on high intensity statin. Telemetry monitoring rule out cardiac dysrhythmia. No dysrhythmia noted thus far. Patient is on 2 medications ( Reblozyl and Ojjara )for myelofibrosis that potentially could cause coagulopathy and thrombosis. Holding both meds for now given the potential embolic stroke he had. I had discussed this case with Dr. Hopper who had discussed this case further with the bone marrow team and the [place] and then neurology team. The decision was made to initiate Eliquis 5 mg twice a day and to continue to take luspatercept and momelotinib. I start the patient on Eliquis as guided by specialist. Patient developed nosebleed. Patient had a bowel movement yesterday. He reported that the stool is on the dark side. Anticoagulation risk/benefit in the setting of probable embolic stroke while patient taking medication at could increase risk of coagulopathy. In addition the patient had heme positive stool and had a nosebleed yesterday. It is really difficult situation that we are dealing with and the patient would need to make the final decision based on his comfort level. Patient is on PPI for GI bleed prophylaxis Patient will likely need GI investigation. He may need ENT for the epistaxis. Nosebleed had stopped this morning. We will discuss further with Dr. Hopper and patient today and make further decisions. Anemia which likely has combined etiology. Myelofibrosis as well as heme positive stool. No gross melena. No hematemesis. No hematuria. Iron study is not consistent with iron deficiency. Continue PPI Patient will need GI investigation. Sooner than later if the recommendation was made to continue with anticoagulation. Known history of myelo fibrotic disorder, myelodysplastic disorder associated with a chronic anemia Patient also is known to have lymphadenopathy. I suspect that patient could have hypercoagulable state secondary to Reblozyl and momelotinib. As listed above, I discussed this case with Dr. Hopper who will discuss the case further with the bone marrow team as well as neurology before making final recommendation.
--- NOTE | 2025-06-19 08:51 | SWNOTE1 ---
SW received a message from Kim at [facility] and they are able to accept.
--- NOTE | 2025-06-19 09:44 | CM.NOTE ---
Called [facility] neurologist office again to page Dr. Lloyd to speak with Dr. Hopper regarding pt's case. No return call on 06/18.
[2025-06-19] MEDS: TRIAMCINOLONE ACETONIDE 0.1% CREAM 15 GM TUBE 1 APPLIC TOPICAL ×2 (09:47→21:01)
[2025-06-19] MEDS: PANTOPRAZOLE SODIUM 40 MG TABLET.DR PO ×2 (09:47→21:01)
[2025-06-19] MEDS: ASPIRIN 81 MG TABLET.DR PO (09:47)
[2025-06-19] MEDS: SENNOSIDES/DOCUSATE SODIUM 1 TAB TABLET 2 TAB PO ×2 (09:47→21:00)
--- NOTE | 2025-06-19 10:32 | PT.DAILY ---
Physical Therapy Daily Note PT Daily Note/Assess Start: 06/14/25 12:40 Freq: Status: Active Protocol: Document 06/19/25 10:26 RICO (Rec: 06/19/25 10:32 RICO [id number]) Physical Therapy Daily Note/Assessment Time In/Time Out Time In 10:00 Time Out 10:13 Pain In Pain N/A Pain Out Pain N/A Subjective Subjective Pt supine upon arrival. Agreeable to PT. Reports no double vision currently but blurry spot in R eye. Therapeutic Activity Time Therapeutic Activity 9 Minutes (minutes) Therapeutic Activity 1 Units Therapeutic Activity Treatment Bed Mobility Ability Independent Chair Transfer Independent Ability Therapeutic Activity Supine>sit IND. Sits EOB unsupported without LOB. Sit> Comments stand IND. sit>stand 5x without UE support Sit>stand 5x with 1 step forwards and retro - occ 1 UE support on RW to maintain balance with stepping Pt amb 250' with RW, SBA. returned to supine IND with call light within reach and needs met. Neuromuscular Reeducation Neuromuscular 2 Reeducation Minutes (minutes) Neuromuscular 0 Reeducation Units Neuromuscular Static standing with NBOS 30 sec x 2 without UE support Reeducation . Standing with NBOS with 10x arm lifts - CGA for safety with occ instances of unsteadiness but no true LOB. Total Physical Therapy Time Total Therapy 11 Minutes Total Physical 1 Therapy Units Summary Daily Note Summary Improving safety awareness with amb - no impulsive motions today. Cont to benefit from amb with AD to maintain balance and promote safety.
[2025-06-19 11:12] LABS: Hematocrit 25.1 % (42.0-54.0); Hemoglobin 8.7 g/dL (14.0-18.0)
--- NOTE | 2025-06-19 14:30 | SWNOTE1 ---
MK faxed updated to [facility]. Updates included physician notes, and PT note from today.
--- NOTE | 2025-06-19 15:04 | CM.NOTE ---
Called transfer line to initiate transfer of pt [phone]. Faxed facesheet to [phone]. Updated Dr. Ramirez.
--- NOTE | 2025-06-19 15:13 | PM.CN ---
Consult Note: [facility] Data of Consult Consult date: 06/19/25 Requesting Physician: Trey Ramirez MD Primary Care Provider: DEWEY ENRIQUEZ Consult Narrative Reason for consult: bone marrow / stem cell disorder, myelofibrosis, embolic CVA Narrative: 64 y/o male initially referred by Dr Dewey Enriquez for bone marrow / stem cell disorder, and low blood counts. He presented with refractory anemia, blood transfusion requirements. He was admitted to [facility] on 09/08/2024. His primary diagnoses involved severe and symptomatic anemia. He had non-specific RP, R iliac, and inguinal adenopathy. He had splenomegaly. He had moderate R pleural effusion. He had RLE cellulitis with non-healing wound. He does have hx of excessive ETOH use. He has coagulopathy with elevated INR. He is also a tobacco user. During that initial hospital evaluation, Hgb was 5.4 g/dL. He had MOFFETT, hot flashes, flu like symptoms. He received 3 units of pRBC. He received vit K for elevated INR. He underwent BM biopsy and thoracentesis on 09/11/2024. BM path showed primary myelofibrosis with a markedly hypercellular marrow. He had moderate reticulin fibrosis 2+/3 and moderate dysmorphic megakaryocytes. This was overall c/w fibrotic phase of primary MF. Aspirate was a partial dry tap. He had 3% blasts, with marked normocytic anemia and marked anisocytosis, mild teardrop forms, no circulating nucleated red blood cells. On flow, he had 5% myeloblasts. LDH 661, haptoglobin 70, K/L ratio 1.8, BATOOL positive. DS DNA negative. He was given referral to GI, but did not undergo endoscopy. Last colonoscopy was reportedly ~3 years ago. I discussed case with university colleagues, and he was initiated on momelotinib (aka Ojjaara) with EPO q2 weeks for primary MF. He underwent updated CT c/a/p in 11/2024. It shows prominent LN in the chest, abdomen, and pelvis (1.3 cm) with 18 cm splenomegaly. Lately, his Procrit has been discontinued given lack of response. 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 He started Luspatercept in early 01/2025 given concurrent signs of MDS with his MF. He met with [facility] for expert opinion. He underwent repeat BM biopsy showing MF, as before. He was subsequently referred to Dr Atwood and has been undergoing bone marrow transplant evaluation. He was being evaluated for TBI / Rituxan prior to possible stem cell transplant. He is now admitted with blurred vision. He reported few days history of having intermittent double vision versus blurry vision. Upon further questioning, patient reported having unsteady gait and needing to rely on furniture in the house to ambulate without falling. Patient denies any headaches. He denies any confusion or disorientation. No slurred speech. No focal weakness or numbness. No prior history of stroke. MRI showed acute stroke, specifically acute/subacute ischemia involving supra tentorial brain, right-sided pontine and bilateral supra and infratentorial changes suggestive of an embolic phenomena. CTA of the head and neck came back negative for vascular occlusion. He was started on ASA and Lovenox injection, with statin. Echo was ordered and is pending. He was transitioned to (and received single dose of Eliquis the evening of 06/18/2025). Ultimately, he developed nose-bleeding, with Hgb drop and heme positive stool. His anticoagulation was placed on hold on 06/19/2025. He is presently off Reblozyl and Ojjara while admitted. I discussed case with MARIO Iverson, and his transplant team. We will initiate transfer request for possible lower scope, and risk benefit of anticoagulation in setting of probable embolic CVA and possible bleed. We will use lovenox 30 mg SQ prophylaxis dosing in the interim. ECOG PS 3. cc:: CC: Trey Ramirez MD Review of Systems ROS Narrative A comprehensive 12 point review of systems was conducted and is negative other than that reported in the history of present illness. [facility] Medical History (Updated 06/14/25 @ 11:05 by Trey Ramirez MD) Psoriasis ?L40.9 - Psoriasis, unspecified (ICD-10) Primary cancer of bone marrow ?C96.9 - Malignant neoplasm of lymphoid, hematopoietic and related tissue, unspecified (ICD-10) Diabetes ?E11.9 - Type 2 diabetes mellitus without complications (ICD-10) Dyslipidemia ?E78.5 - Hyperlipidemia, unspecified (ICD-10) Anemia requiring transfusions ?D64.9 - Anemia, unspecified (ICD-10) Social History Highest level of school completed/degree received: high school graduate Little interest or pleasure in doing things: not at all Feeling down, depressed, or hopeless: not at all Meds Home Medications and Allergies Home Medications ?Medication ?Instructions ?Recorded ?Confirmed ?Type melatonin 10 mg capsule 10 mg PO BEDTIME 10/09/24 06/13/25 History rosuvastatin 10 mg tablet 10 mg PO .qhs 10/09/24 06/13/25 History luspatercept-aamt 75 mg 125 mg subcut Q21D 06/13/25 06/13/25 History subcutaneous solution (Reblozyl) momelotinib 100 mg tablet (Ojjaara) 200 mg PO DAILY 06/13/25 06/13/25 History Allergies Allergy/AdvReac Type Severity Reaction Status Date / Time No Known Drug Allergies Allergy Verified 10/09/24 17:41 Exam Narrative Exam Narrative: Exam Narrative: [pt is awake and alert. oriented to place, time and person, cachectic and frail in appearance HEENT: [place] conjunctiva and NL buccal mucosa. Bitemporal muscle wasting Neck: Supple, no tenderness Endocrine: No Thyromegaly. Vascular: No JVD or carotid bruit. Lymphatic: No cervical lymphadenopathy. Chest: CTA no DTP. Heart RRR, no extra sound or murmur. Abd: Soft, no tenderness, no rebound and no rigidity. Increase abd girth therefore clinically I could not exclude the possibility of intra abd mass or organomegaly. LE: No cyanosis or clubbing, no varices or edema. Upper and lower extremities muscle wasting atrophy Neuro: A A O. Nl speech, comprehension and attention. Nl and symetrical motor and tone examination through out. Patient does have nystagmus, horizontal. This had subsided significant since admission. Patient continues to have double vision that resolves when he closes 1 eye at a time Patient has ataxia when ambulating. Ataxia intensity has subsided significantly. He needs 1 person supervision []] Constitutional Vital Signs, click to edit/add: Last Vital Signs Temp 97.9 F 06/19/25 07:19 Pulse 83 06/19/25 07:57 Resp 16 06/19/25 07:19 BP 140/70 06/19/25 07:19 Pulse Ox 93 L 06/19/25 07:19 O2 Del Method Room Air 06/19/25 07:19 Constitutional Vital Signs, click to edit/add: Last Vital Signs Temp 98.4 F 06/19/25 11:46 Pulse 94 H 06/19/25 14:00 Resp 16 06/19/25 11:46 BP 125/62 06/19/25 11:46 Pulse Ox 97 06/19/25 11:46 O2 Del Method Room Air 06/19/25 11:46 Results Labs Labs: Short CBC 06/19/25 06/19/25 Range/Units 04:35 11:05 WBC 9.8 (4.0-11.0) 10^3/uL Hgb 8.0 L 8.7 L (14.0-18.0) g/dL Hct 23.1 L* 25.1 L (42.0-54.0) % Plt Count 130 L (150-450) 10^3/uL Assessment and Plan Assessment and Plan (1) Acute CVA (cerebrovascular accident): Plan 64 y/o male initially referred by Dr Dewey Enriquez for bone marrow / stem cell disorder, and low blood counts. He presented with refractory anemia, blood transfusion requirements. He has been diagnosed with primary myelofibrosis, and is on Ojjaara with Luspatercept, with care coordination with [facility]. He is being evaluated for stem cell transplant. Unfortunately, he is now admitted with acute / embolic CVA, and has developed bleeding while on therapeutic anticoagulation. Impression: 1. Primary myelofibrosis 2. Pancytopenia from primary MF 3. Transfusion dependent anemia 4. Splenomegaly from MF 5. Acute / embolic CVA 6. Acute on chronic anemia, with dark stools and nosebleed, while on therapeutic anticoagulation 7. Non-specific lymphadenopathy 8. Hx of prior excessive ETOH use 9. Being evaluated for stem cell transplant, [facility] PLAN: - complex case of primary MF, on Ojjaara and Luspatercept, with minimal response. He has previously been on EPO with insufficient response - care coordination is in place with [facility]. In fact, he was undergoing evaluation for stem cell transplant prior to his admission for blurred vision. - I suspect his blurred vision and VETERINARY VIROLOGIST symptoms to be from acute / embolic CVA. His Ojjaara / Luspatercept medications can be associated with thrombosis risk. These are now on hold. - MRI showed acute stroke, specifically acute/subacute ischemia involving supra tentorial brain, right-sided pontine and bilateral supra and infratentorial changes suggestive of an embolic phenomena. CTA of the head and neck came back negative for vascular occlusion. - I discussed case with neurology, who has felt that anticoagulation would likely be favored over anti-platelet therapy. - I discussed above with transplant colleagues, and unfortunately, he has now developed bleeding (e.g. nose bleed and dark stools) after starting therapeutic anticoagulation. - Ultimately, he developed nose-bleeding, with Hgb drop and heme positive stool. His anticoagulation was placed on hold on 06/19/2025. - I discussed case with Zayra, and his transplant team. We will initiate transfer request for possible lower scope, and risk benefit of anticoagulation in setting of probable embolic CVA and possible bleed. We will use lovenox 30 mg SQ prophylaxis dosing in the interim. Thank you for the consult. Will follow along closely and be available for any coordination of care. Martita Hopepr MD Hematology Oncology Face to face time: 60 mins
[2025-06-19] MEDS: ENOXAPARIN SODIUM 30 MG/0.3 ML SYRINGE SUBQ (15:49)
--- NOTE | 2025-06-19 16:38 | P.DS_ITS ---
DS: Providers Provider Date of admission: 06/14/25 11:02 Primary care physician: LOUIS WARD Consults: 06/13/25 13:44 Consult to Telestroke Routine Reason for consultation: diplopia 06/13/25 14:36 Occupational Therapy Eval and Treat Routine Reason for consultation: TIA Physical Therapy Eval and Treat Routine Reason for consultation: TIA 06/14/25 Consult to Oncology Routine Consulting Provider: Martita Hopper Reason for consultation: Haemochromatosis Has provider been notified: Yes 06/14/25 10:49 Consult to TeleNeurology Routine Reason for consultation: Acute CVA 06/14/25 10:56 Consult to Oncology Routine Consulting Provider: Martita Hopper Reason for consultation: Myelofibrosis with acute stroke 06/16/25 16:29 Consult to Oncology Routine Consulting Provider: Martita Hopper Reason for consultation: Myelofibrosis, Anemia, Thrombosis, meds mgt 06/19/25 Consult to TeleNeurology Routine Reason for consultation: CVA DS: Diagnosis Discharge Diagnosis (1) Acute CVA (cerebrovascular accident): Plan As listed above, below and others that are not listed DS: Summary Hospital Course Hospital Course: Mr. Ordaz is 64-year-old gentleman who came in with double vision. He was found to have the following: Acute stroke. MRI showed acute/subacute ischemia involving supra tentorial brain, right-sided pontine and bilateral supra and infratentorial changes suggestive of an embolic phenomena. ER physician I discussed his case with telestroke. CTA of the head and neck came back negative for vascular occlusion Echocardiogram is pending. I started patient on aspirin daily as well as Lovenox subcu injection. (Lovenox placed on hold due to hemoglobin drop and heme positive stool ) I also started patient on high intensity statin. Telemetry monitoring rule out cardiac dysrhythmia. No dysrhythmia noted thus far. Patient is on 2 medications ( Reblozyl and Ojjara )for myelofibrosis that potentially could cause coagulopathy and thrombosis. Holding both meds for now given the potential embolic stroke he had. I had discussed this case with Dr. Hopper who had discussed this case further with the bone marrow team and the [facility] neurology team. The decision was made to initiate Eliquis 5 mg twice a day and to continue to take luspatercept and momelotinib. I start the patient on Eliquis as guided by specialist. Patient developed nosebleed. Patient had a bowel movement yesterday. He reported that the stool is on the dark side. I had additional discussion and conversation regarding his case with Dr. Hopper. He had additional discussion and conversation with his transplant team at . The decision was made to transfer patient to main [place] for GI investigation and also to be seen by transplant team and the neuroteam to finalize he is hematological and neurological treatment options. Anemia which likely has combined etiology. Myelofibrosis as well as heme positive stool. No gross melena. No hematemesis. No hematuria. Iron study is not consistent with iron deficiency. Continue PPI Patient will need GI investigation. Sooner than later if the recommendation was made to continue with anticoagulation. Known history of myelo fibrotic disorder, myelodysplastic disorder associated with a chronic anemia Patient also is known to have lymphadenopathy. I suspect that patient could have hypercoagulable state secondary to Reblozyl and momelotinib. As listed above, I discussed this case with Dr. Hopper who will discuss the case further with the bone marrow team as well as neurology before making final recommendation. I connected with the transfer line. I spoke with transplant physician on- call. She agreed to accept patient to be transferred there to facilitate needed GI, neuro and myelofibrosis investigation and treatment. Time Spent with Patient Time attestation: Total time spent providing and/or coordinating discharge services: Exam Constitutional Vital Signs, click to edit/add: Last Vital Signs Temp 97.7 F 06/19/25 20:00 Pulse 90 06/19/25 22:00 Resp 18 06/19/25 20:00 BP 146/56 H 06/19/25 20:00 Pulse Ox 95 06/19/25 20:00 O2 Del Method Room Air 06/19/25 20:00 DS: Data Data Completed and Pending Labs on day of discharge: Labs from last 24 hours 06/19/25 11:05 Hgb 8.7 L Hct 25.1 L Preliminary micro results at discharge 06/14/25 14:49 Blood Culture Result 1 - Preliminary Blood - Left Antecubital NO GROWTH AT 36-48 HOURS. FINAL TO FOLLOW. Discharge Plan Discharge Disposition: [facility] Condition: Fair Discharge Date/Time: 06/19/25 23:16
--- NOTE | 2025-06-19 17:38 | PM.EN ---
Event Note Event Note: We initiated transfer to to be seen by GI, ENT, Marrow transplan team and neurology. I spoke with medical hospitalist about his case. I informed her about his issues, diagnoses, thought process, medical decision process as documented in my note and Dr Hopper 's note. She asked if the transplant team would admit. If declined then she will admit. Waiting for to make a decison who is going to admit then transfer when a bed is available.
--- NOTE | 2025-06-19 20:39 | PC.NURSE ---
A small amount of blood was noted on patient's pillow. Upon assessing the patient, the patient was bleeding from his R ear canal. Orthodontic Assistant cleansed the patient's ear and no heavy bleeding was noted. Patient did state that he was scratching at his ear.. Pillow case was changed and a chux cover was placed on time. Orthodontic Assistant will continues to monitor.
[2025-06-19] MEDS: ATORVASTATIN CALCIUM 40 MG TABLET 80 MG PO (21:00)
== END 2025-06-19 23:16 | disposition short-term general hospital (02) | DRG 65 ==
LOC: ER 13:46 → MS 14:51
PROVIDERS: Admitting Provider Internal Medicine; Emergency Provider Emergency Medicine; PCP Family Medicine; Visit Provider Internal Medicine
DX: I63.9 Cerebral infarction, unspecified (principal); D61.818 Other pancytopenia; D68.9 Coagulation defect, unspecified; R64 Cachexia; D75.81 Myelofibrosis; D46.21 Refractory anemia with excess of blasts 1; D46.9 Myelodysplastic syndrome, unspecified; R16.1 Splenomegaly, not elsewhere classified; H53.2 Diplopia; R59.0 Localized enlarged lymph nodes; F10.90 Alcohol use, unspecified, uncomplicated; S81.801A Unspecified open wound, right lower leg, initial encounter; M62.59 Muscle wasting and atrophy, not elsewhere classified, multiple sites; R19.5 Other fecal abnormalities; E11.9 Type 2 diabetes mellitus without complications; E78.5 Hyperlipidemia, unspecified; R04.0 Epistaxis; T50.995A Adverse effect of other drugs, medicaments and biological substances, initial encounter; Z68.24 Body mass index [BMI] 24.0-24.9, adult; R29.702 NIHSS score 2; Z87.891 Personal history of nicotine dependence
CPT/HCPCS: 36415; 36430; 70450; 70496; 70498; 70553; 80048; 80053; 80061; 82607; 82728; 82746; 83540; 83550; 83735; 84100; 85007; 85014; 85018; 85027; 85652; 86850; 86900; 86901; 86923; 87040; 93005; 93306; 93970; 96372; 97162; 97530; 99285; A9575; G0328; G0378; G0463; J0896; J1650; P9038; Q9967

== ENCOUNTER 2025-07-16 08:48 | Outpatient (RCR) | payer OTHER, SELFPAY ==
[2025-07-02 09:37] VITALS: BP 163/73; PULSE 81; TEMP 36.2; O2SAT 97
[2025-07-02 09:51] LABS: Hemoglobin 7.9 g/dL (14.0-18.0); Mean Corpuscular HGB Conc 33.8 g/dL (29.9-35.2); Mean Corpuscular Hemoglobin 32.1 pg (25.9-34.0); Mean Corpuscular Volume 95.1 fL (80.0-94.0); Platelet Count 224 10^3/uL (150-450); Red Blood Count 2.46 10^6/uL (4.70-6.10); White Blood Count 14.9 10^3/uL (4.0-11.0)
[2025-07-02 09:57] LABS: Anion Gap 13.4; Blood Urea Nitrogen 16.0 mg/dL (7.0-18.0); Calcium 8.8 mg/dL (8.5-10.1); Carbon Dioxide 29.8 mmol/L (21.0-32.0); Chloride 101 mmol/L (98-107); Estimated GFR (African America >60 (>=60 mL/min/1.73m^2); Estimated GFR (Non-African Ame >60 (>=60 mL/min/1.73m^2); Glucose 99 mg/dL (74-106); Potassium 4.2 mmol/L (3.5-5.1); Sodium 140 mmol/L (136-145)
[2025-07-02 10:02] LABS: Hematocrit 23.4 % (42.0-54.0)
--- NOTE | 2025-07-02 10:06 | PC.NURSE ---
1002 updated Sofia Javed on critical HCT called up by Parker in the lab : 23.4
[2025-07-02 10:44] LABS: Band Neutrophils Absolute 0.6 10^3/uL (0.0-0.3); Basophils Abs Manual 0.00 10^3/uL (0.00-0.10); Basophils Percent Manual 0.0 % (0.2-2.0); Eosinophils Absolute Manual 0.00 10^3/uL (0.00-0.70); Eosinophils Percent Manual 0.0 % (0.9-7.0); Lymphocytes Absolute Manual 1.78 10^3/uL (1.20-3.80); Lymphocytes Percent Manual 12.0 % (20.5-60.0); Monocytes Absolute Manual 0.74 10^3/uL (0.30-0.80); Monocytes Percent Manual 5.0 % (1.7-12.0); Segmented Neut Absolute Manual 11.17 10^3/uL (1.4-6.5); Segmented Neutrophils % Manual 75.0 (43.0-75.0)
[2025-07-02 10:45] LABS: Anisocytosis 2+; Blast % Manual 1.0; Blast Absolute Manual 0.14; Metamyelocytes Absolute Manual 0.29; Myelocytes % Manual 1.0; Myelocytes Absolute Manual 0.14
[2025-07-02 10:46] LABS: Ovalocytes 1+
[2025-07-02 10:56] VITALS: BP 116/73; PULSE 89; TEMP 36.8; O2SAT 98
[2025-07-02] MEDS: LUSPATERCEPT AAMT SQ (11:40)
[2025-07-02] MEDS: LUSPATERCEPT AAMT 50 MG SUBQ (11:40)
[2025-07-16 08:52] VITALS: BP 137/66; PULSE 100; TEMP 36.4; O2SAT 98
[2025-07-16 09:17] LABS: Hematocrit 24.1 % (42.0-54.0); Hemoglobin 8.2 g/dL (14.0-18.0); Mean Corpuscular HGB Conc 34.0 g/dL (29.9-35.2); Mean Corpuscular Hemoglobin 33.7 pg (25.9-34.0); Mean Corpuscular Volume 99.2 fL (80.0-94.0); Platelet Count 294 10^3/uL (150-450); Red Blood Count 2.43 10^6/uL (4.70-6.10); White Blood Count 25.0 10^3/uL (4.0-11.0)
[2025-07-16 09:20] LABS: Anion Gap 14.0; Blood Urea Nitrogen 23.0 mg/dL (7.0-18.0); Calcium 8.9 mg/dL (8.5-10.1); Carbon Dioxide 28.3 mmol/L (21.0-32.0); Chloride 99 mmol/L (98-107); Estimated GFR (African America >60 (>=60 mL/min/1.73m^2); Estimated GFR (Non-African Ame 55 (>=60 mL/min/1.73m^2); Glucose 122 mg/dL (74-106); Potassium 4.3 mmol/L (3.5-5.1); Sodium 137 mmol/L (136-145)
[2025-07-16 09:43] LABS: Atypical Lymphocytes % Manual 2.0 %; Atypical Lymphocytes Abs Man 0.50; Band Neutrophils Absolute 1.0 10^3/uL (0.0-0.3); Basophils Abs Manual 0.00 10^3/uL (0.00-0.10); Basophils Percent Manual 0.0 % (0.2-2.0); Eosinophils Absolute Manual 0.00 10^3/uL (0.00-0.70); Eosinophils Percent Manual 0.0 % (0.9-7.0); Lymphocytes Absolute Manual 2.75 10^3/uL (1.20-3.80); Lymphocytes Percent Manual 11.0 % (20.5-60.0); Metamyelocytes Absolute Manual 0.50; Monocytes Absolute Manual 0.50 10^3/uL (0.30-0.80); Monocytes Percent Manual 2.0 % (1.7-12.0); Segmented Neut Absolute Manual 19.75 10^3/uL (1.4-6.5); Segmented Neutrophils % Manual 79.0 (43.0-75.0)
[2025-07-16 09:44] LABS: Anisocytosis 3+
== END 2025-07-17 23:59 | disposition home or self-care (01) ==
LOC: HEMC 08:48
PROVIDERS: PCP Family Medicine; Visit Provider Internal Medicine Hematology & Oncology
DX: D46.21 Refractory anemia with excess of blasts 1 (principal); D75.81 Myelofibrosis; D46.9 Myelodysplastic syndrome, unspecified; Z87.891 Personal history of nicotine dependence; Z85.72 Personal history of non-Hodgkin lymphomas
CPT/HCPCS: 36415; 80048; 85007; 85027; 96372; G0463; J0896